=== PATIENT | female | born 1970 | race Caucasian/White ===

== ENCOUNTER → 2019-01-22 10:39 | Outpatient (CLI) | payer MEDICARE, SELFPAY ==
[2016-12-27 17:18] VITALS: BMI 28.2
[2019-01-22 12:43] LABS: Urine Sodium 46 mmol/L (Not Establ.)
[2019-01-22 12:57] LABS: ALB/GLOB Ratio 0.9 RATIO (0.9-2.4); AST(SGOT) 21 U/L (15-37); Alanine Aminotransfer ALT/SGPT 42 U/L (13-56); Albumin, Serum 3.8 g/dL (3.2-5.0); Alkaline Phosphatase 74 U/L (45-117); Anion Gap 9 (5-15); BUN 16 mg/dL (7-18); BUN/Creat Ratio 18.7 RATIO (10-20); Calcium,Total 9.1 mg/dL (8.5-10.1); Chloride 103 mmol/L (98-107); Cholesterol 243 mg/dL (200); Creatinine, Serum 0.86 mg/dL (0.55-1.02); EST Glomerular Filtration Rate 75 mL/min (>60); Est Glom Filt Rate - Afr Amer 91 mL/min (>60); Globulin 4.3 g/dL (2.2-4.2); Glucose 74 mg/dL (74-106); High Density Lipoprotein 75 mg/dL; Potassium 3.3 mmol/L (3.5-5.1); Protein, Total 8.1 g/dL (6.4-8.2); Sodium Level 139 mmol/L (136-145); Triglycerides 75 mg/dL; Very Low Density Lipoprotein 15 mg/dL (5-40)
[2019-01-23 09:57] LABS: LDL, Direct 120295 170 mg/dL (0-99)
== END ==
DX: E87.1 Hypo-osmolality and hyponatremia (principal); E87.6 Hypokalemia; E78.00 Pure hypercholesterolemia, unspecified
CPT/HCPCS: 36415; 80053; 80061; 83721; 84300

== ENCOUNTER → 2019-03-13 09:08 | Outpatient (CLI) | payer MEDICARE, SELFPAY ==
[2016-12-27 17:18] VITALS: BMI 28.2
[2019-03-13 10:37] LABS: ALB/GLOB Ratio 0.9 RATIO (0.9-2.4); AST(SGOT) 13 U/L (15-37); Alanine Aminotransfer ALT/SGPT 29 U/L (13-56); Albumin, Serum 3.6 g/dL (3.2-5.0); Alkaline Phosphatase 69 U/L (45-117); Anion Gap 12 (5-15); BUN 19 mg/dL (7-18); BUN/Creat Ratio 20.9 RATIO (10-20); Calcium,Total 8.8 mg/dL (8.5-10.1); Chloride 108 mmol/L (98-107); Creatinine, Serum 0.91 mg/dL (0.55-1.02); EST Glomerular Filtration Rate 70 mL/min (>60); Est Glom Filt Rate - Afr Amer 85 mL/min (>60); Globulin 3.9 g/dL (2.2-4.2); Glucose 97 mg/dL (74-106); Potassium 3.8 mmol/L (3.5-5.1); Protein, Total 7.5 g/dL (6.4-8.2); Sodium Level 141 mmol/L (136-145)
== END ==
DX: E87.1 Hypo-osmolality and hyponatremia (principal); E87.6 Hypokalemia
CPT/HCPCS: 36415; 80053

== ENCOUNTER → 2019-04-28 07:11 | Outpatient (CLI) | payer MEDICARE, SELFPAY ==
[2019-04-28 10:08] LABS: Absolute Lymphocyte Count 2.02 X10^3/uL (0.83-4.51); Absolute Neutrophil Count 6.7 X10^3/uL (2.0-7.7); Basophil# 0.08 X10^3/uL; Basophil% 0.8 % (0-1); Hematocrit 47.8 % (37-47); Lymphocyte # 2.02 X10^3/ul (4.0); Lymphocyte % 20.5 % (19-41); Mean Corp Hgb Conc 33.5 g/dL (32-36); Mean Corpuscular Hgb 32.7 pg (27.0-32.0); Mean Corpuscular Volume 97.8 fL (81-99); Mean Platelet Vol. 9.7 fl (6.2-12.0); Monocyte# 0.77 X10^3/uL; Monocyte% 7.8 % (0-10); NRBC Flagged by Analyzer 0 % (0-5); Neutrophil # 6.67 X10^3/uL (2.7-7.7); Platelet Count 263 K/mm3 (150-450); RBC Distribution Width CV 14.1 % (11.6-14.6); RBC Distribution Width SD 51.1 fl (35.1-43.9); Red Blood Count 4.89 M/mm3 (4.2-5.4); White Blood Count 9.8 K/mm3 (4.4-11.0)
[2019-04-28 10:35] LABS: ALB/GLOB Ratio 0.9 RATIO (0.9-2.4); AST(SGOT) 21 U/L (15-37); Alanine Aminotransfer ALT/SGPT 53 U/L (13-56); Albumin, Serum 3.7 g/dL (3.2-5.0); Alkaline Phosphatase 75 U/L (45-117); Anion Gap 8 (5-15); BUN 16 mg/dL (7-18); BUN/Creat Ratio 19.7 RATIO (10-20); Calcium,Total 8.6 mg/dL (8.5-10.1); Chloride 107 mmol/L (98-107); Cholesterol 254 mg/dL (200); Creatinine, Serum 0.81 mg/dL (0.55-1.02); EST Glomerular Filtration Rate 80 mL/min (>60); Est Glom Filt Rate - Afr Amer 96 mL/min (>60); Globulin 4.1 g/dL (2.2-4.2); Glucose 111 mg/dL (74-106); High Density Lipoprotein 91 mg/dL; Magnesium 2.5 mg/dL (1.6-2.6); Potassium 3.7 mmol/L (3.5-5.1); Protein, Total 7.8 g/dL (6.4-8.2); Sodium Level 141 mmol/L (136-145); T4 Free Direct 0.97 ng/dL (0.76-1.46); Thyroid Stim Hormone (TSH) 3.62 uIU/mL (0.358-3.74); Triglycerides 92 mg/dL; Very Low Density Lipoprotein 18 mg/dL (5-40)
[2019-04-28 13:40] LABS: Hemoglobin A1c 5.7 % (4.2-6.3)
== END ==
DX: E78.00 Pure hypercholesterolemia, unspecified (principal); R73.01 Impaired fasting glucose; E87.1 Hypo-osmolality and hyponatremia; E87.6 Hypokalemia; E03.9 Hypothyroidism, unspecified
CPT/HCPCS: 36415; 80053; 80061; 83036; 83735; 84439; 84443; 85025

== ENCOUNTER → 2020-01-07 08:41 | Outpatient (CLI) | payer MEDICARE, SELFPAY ==
[2020-01-07 10:05] LABS: Hematocrit 45.1 % (37-47); Hemoglobin 15.1 g/dL (12.0-15.0); Mean Corp Hgb Conc 33.5 g/dL (32-36); Mean Corpuscular Hgb 32.5 pg (27.0-32.0); Mean Corpuscular Volume 97.2 fL (81-99); Mean Platelet Vol. 10.1 fl (6.2-12.0); Platelet Count 293 K/mm3 (150-450); RBC Distribution Width SD 49.9 fl (35.1-43.9); Red Blood Count 4.64 M/mm3 (4.2-5.4); White Blood Count 15.3 K/mm3 (4.4-11.0)
[2020-01-07 10:39] LABS: Glucose 91 mg/dL (74-106); Potassium 3.5 mmol/L (3.5-5.1)
[2020-01-07 10:40] LABS: Insulin 11.3 mU/L (2.6-37.6)
== END ==
DX: D72.829 Elevated white blood cell count, unspecified (principal); E87.6 Hypokalemia; E16.1 Other hypoglycemia
CPT/HCPCS: 36415; 82533; 82947; 83525; 84132; 85027

== ENCOUNTER → 2020-01-09 10:59 | Outpatient (CLI) | payer MEDICARE, MEDICAID, SELFPAY ==
[2020-01-16 13:11] LABS: Aldosterone, 24Ur 73.19 ug/24 hr (0.00-19.00)
== END ==
DX: D72.829 Elevated white blood cell count, unspecified (principal); E87.6 Hypokalemia; E16.1 Other hypoglycemia
CPT/HCPCS: 81050; 82088

== ENCOUNTER → 2020-02-16 11:57 | Outpatient (CLI) | payer MEDICARE, SELFPAY ==
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
== END ==
PROVIDERS: Referring Provider Anesthesiology Pain Medicine; Visit Provider Anesthesiology Pain Medicine
DX: M54.2 Cervicalgia (principal); M54.9 Dorsalgia, unspecified
CPT/HCPCS: 72040; 72100

== ENCOUNTER 2020-03-27 14:45 | Emergency (ER) | payer MEDICARE, MEDICAID, SELFPAY ==
[2020-03-27 14:46] VITALS: BP 135/86; PULSE 90; RESP 18; TEMP 36.8; O2SAT 96; BMI 33.3
--- NOTE | 2020-03-27 15:22 | ED.VIS.GEN ---
History of Present Illness Chief Complaint: Lower Extremity Injury Informant: Patient Onset: Today - JPTA Context: Sudden Onset - while pushing vaccuum back and forth at home Timing: Continuous Quality: sharp pain Location: lateral left hip/buttock, into left thigh Current Severity: Moderate Maximum Severity: Severe Worsened by: movement, bearing weight Relieved by: remaining still lying down Associated Symptoms: tingling down LLE Narrative: Patient has been able to bear weight but it is painful. She has no groin pain. She also has a history of spinal stenosis with lumbosacral degenerative disc disease, she gets regular injections with her pain management doctor, Dr. Jin. She had this acute onset pain, she has had sciatica down her left lower extremity before, but she states this is much worse than what she has had in the past. She denies any direct trauma. No fall. No bowel or bladder incontinence or dysfunction. She denies any saddle anesthesias. The leg does not necessarily seem weak, but she is very limited by pain. No symptoms on the right side this time. - Past Medical History (1) Spinal stenosis Status: Chronic (2) DDD (degenerative disc disease), lumbosacral Status: Chronic (3) M?ni?re's disease Status: Chronic Past Medical History - Allergies and Home Meds Allergies/Adverse Reactions: Allergies duloxetine [From Cymbalta] Allergy (Verified 03/27/20 14:49) Other Penicillins Allergy (Verified 03/27/20 14:49) Hives Primary Care Physician: LOGAN TODD [Other] Lives: Spouse/ Significant Other Smoking Status: Current every day smoker Review of Systems General: Denies: Chills, Fever, Sweats Eyes: Denies: Visual changes - bilaterally, Diplopia ENT: Denies: Rhinorrhea, Sore throat Cardiovascular: Denies: Chest pain, Palpitations Respiratory: Denies: Dyspnea, Cough, Dyspnea on exertion Gastrointestinal: Denies: Abdominal pain, Nausea, Vomiting, Diarrhea, Melena, Hematochezia Genitourinary: Denies: Dysuria, Hematuria, Frequency Musculoskeletal: Reports: Back pain - Chronic, worse today, Extremity Pain. Denies: Myalgias, Neck pain, Swelling Skin: Denies: Rash, Wounds Neurological: Reports: Parasthesia. Denies: Headache, Weakness Physical Exam Vital Signs/Narrative: Vital Signs Temp Pulse Resp BP Pulse Ox 03/27/20 14:46 98.3 F 90 18 135/86 H 96 Inital Vital Signs reviewed: Yes General: Well nourished, Well developed, No Acute Distress Head: Normocephalic, Atraumatic ENT: Moist mucous membranes, No rhinorrhea Neck: Supple, Nontender Respiratory: No distress Abdomen: Soft, Nontender, Nondistended, Normal bowel sounds Back: Normal Inspection, Spinal tenderness - Mild, upper lumbar, this reproduces patient's chronic pain, this is not where she is having acute pain. No other spinal tenderness., - - Tender throughout left buttock, including ischial tuberosity, sciatic notch, greater trochanter of the femur, ASIS, and pelvic brim.. Negative for: CVA tenderness Extremities: Nontender, No edema, - - Negative straight leg raise bilaterally while sitting, the increased back pain only and do not worsen or reproduce radicular symptoms. Painless internal/external rotation at the left hip joint. No shortening of the left lower extremity. Full range of motion throughout all joints of the lower extremities without difficulty. Skin: Normal color, No rash, No Trauma Neurological: Alert, Oriented x3, Cranial nerves II-XII grossly intact, Normal Strength, Normal Sensation, Normal DTR, - - Antalgic gait. No clonus. Downgoing toes bilaterally. Psychological: Normal affect, Normal Mood Diagnostic/Tx/Re-eval - Medical Decision Making Patient was reassured about her hip joint, I do not think this is a hip joint issue. I think it is more related to her chronic back issues, and this is probably sciatica, at least related to her symptoms, although she is not examining objectively like radiculopathy. At this time I think the treatment is pain control. We discussed that, but she does not want any narcotics because it makes her M?ni?re's disease worse. She takes Celebrex daily and she took it this morning. In the end we decided to treat her with tramadol and Norflex here, and she will follow-up with her doctor after the weekend and rest. ED Disposition - Plan for ED Patient: Disposition: Home or Assisted Living Diagnosis: Acute low back pain with left-sided sciatica, Spinal stenosis Instructions: ED Back Pain Acute or Chronic Referrals: LOGAN TODD [Other] - 3-5 Days if not improving
[2020-03-27] MEDS: traMADol 50 MG Tablet 100 MG PO (15:43)
[2020-03-27] MEDS: Orphenadrine 60 MG/2 ML Ampul IM (15:43)
== END 2020-03-27 16:15 | disposition home or self-care (01) ==
PROVIDERS: Emergency Provider Emergency Medicine
DX: M54.42 Lumbago with sciatica, left side (principal); M48.07 Spinal stenosis, lumbosacral region; M51.37 Other intervertebral disc degeneration, lumbosacral region; F17.200 Nicotine dependence, unspecified, uncomplicated; Z79.899 Other long term (current) drug therapy
CPT/HCPCS: 96372; 99283

== ENCOUNTER → 2020-04-05 09:31 | Outpatient (CLI) | payer MEDICARE, MEDICAID, SELFPAY ==
[2020-03-27 14:46] VITALS: BMI 33.3
[2020-04-05 12:18] LABS: Hematocrit 44.5 % (37-47); Hemoglobin 14.8 g/dL (12.0-15.0); Mean Corp Hgb Conc 33.3 g/dL (32-36); Mean Corpuscular Hgb 33.3 pg (27.0-32.0); Mean Platelet Vol. 10.2 fl (6.2-12.0); Platelet Count 294 K/mm3 (150-450); RBC Distribution Width CV 13.8 % (11.6-14.6); RBC Distribution Width SD 50.6 fl (35.1-43.9); Red Blood Count 4.45 M/mm3 (4.2-5.4); White Blood Count 12.1 K/mm3 (4.4-11.0)
[2020-04-05 12:35] LABS: Hemoglobin A1c 5.6 % (3.8-5.6)
[2020-04-05 12:38] LABS: ALB/GLOB Ratio 0.8 RATIO (0.9-2.4); AST(SGOT) 17 U/L (15-37); Alanine Aminotransfer ALT/SGPT 42 U/L (13-56); Albumin, Serum 3.8 g/dL (3.2-5.0); Alkaline Phosphatase 86 U/L (45-117); Anion Gap 7 (5-15); BUN 26 mg/dL (7-18); BUN/Creat Ratio 27.3 RATIO (10-20); Calcium,Total 8.8 mg/dL (8.5-10.1); Chloride 105 mmol/L (98-107); Cholesterol 229 mg/dL (200); Creatinine, Serum 0.95 mg/dL (0.55-1.02); EST Glomerular Filtration Rate 66 mL/min (>60); Est Glom Filt Rate - Afr Amer 80 mL/min (>60); Globulin 4.5 g/dL (2.2-4.2); Glucose 98 mg/dL (74-106); High Density Lipoprotein 83 mg/dL; Magnesium 2.5 mg/dL (1.6-2.6); Potassium 3.8 mmol/L (3.5-5.1); Protein, Total 8.3 g/dL (6.4-8.2); Sodium Level 137 mmol/L (136-145); Thyroid Stim Hormone (TSH) 1.78 uIU/mL (0.358-3.74); Triglycerides 55 mg/dL; Very Low Density Lipoprotein 11 mg/dL (5-40)
== END ==
DX: E87.6 Hypokalemia (principal); E78.00 Pure hypercholesterolemia, unspecified; E03.9 Hypothyroidism, unspecified; D72.829 Elevated white blood cell count, unspecified; R73.01 Impaired fasting glucose; E83.42 Hypomagnesemia; E87.1 Hypo-osmolality and hyponatremia
CPT/HCPCS: 36415; 80053; 80061; 82533; 83036; 83735; 84443; 85027

== ENCOUNTER → 2020-04-08 | Outpatient (CLI) | payer MEDICARE, MEDICAID, SELFPAY ==
[2020-03-27 14:46] VITALS: BMI 33.3
[2020-04-15 20:00] LABS: Aldosterone, 24Ur 186.62 ug/24 hr (0.00-19.00); Aldosterone, Ur 62.73 ug/L (Not Estab.)
== END | disposition home or self-care (01) ==
LOC: LABSPEC 08:57
DX: E87.6 Hypokalemia (principal); E78.00 Pure hypercholesterolemia, unspecified; E03.9 Hypothyroidism, unspecified; D72.829 Elevated white blood cell count, unspecified; R73.01 Impaired fasting glucose; E83.42 Hypomagnesemia; E87.1 Hypo-osmolality and hyponatremia
CPT/HCPCS: 81050; 82088

== ENCOUNTER → 2020-04-10 08:04 | Outpatient (CLI) | payer MEDICARE, MEDICAID, SELFPAY ==
[2020-03-27 14:46] VITALS: BMI 33.3
--- NOTE | 2020-04-10 08:30 | MRI_ITS ---
STUDY: MRI LUMBAR SPINE WITHOUT CONTRAST REASON FOR EXAM: Female, 49 years old. Intervertebral disc degeneration, stenosis, increased LBP, left hip and bilat leg pain TECHNIQUE: Standardized fat and water weighted pulse sequences were obtained in the sagittal and axial planes. COMPARISON: None FINDINGS: T9-T10: (Sagittal only). Normal endplates. Minimal disc space height narrowing. No ventral extradural defect. Normal central canal and the visualized portions of the bilateral intervertebral neural foramina. T10-T11: (Sagittal only). Normal endplates. Minimal disc space height narrowing. No ventral extradural defect. Normal central canal and bilateral intervertebral neural foramina. T11-T12: (Sagittal only). Schmorl''s nodes in the central aspect of the adjacent vertebral endplates. Normal disc height, hydration and morphology. Normal central canal and bilateral intervertebral neural foramina. T12-L1: (Sagittal only). Normal endplates. Normal disc height, hydration and morphology. Normal central canal and bilateral intervertebral neural foramina. Normal lumbar lordosis. There is no substantial scoliosis. Normal conus medullaris that terminates at the lower L1 vertebral body level. L1-2: Schmorl''s nodes in the central aspect of the adjacent vertebral endplates. Mild disc space height narrowing with mild loss of disc hydration. Small left posterior paramedian disc protrusion causing mild stenosis of the left lateral recesses. Normal central canal and right lateral recess. Mild right degenerative facet arthropathy. Normal left facet joint. Normal bilateral intervertebral neural foramina. L2-3: MODIC type II degenerative vertebral marrow fatty changes underneath vertebral endplates. Pronounced disc space height narrowing. Mild degenerative retrolisthesis of L2 on L3. Normal central canal and mild stenosis of the right lateral recess. Normal left lateral recess. Mild degenerative facet arthropathy. Normal bilateral intervertebral neural foramina. L3-4: MODIC type II degenerative vertebral marrow fatty changes underneath the vertebral endplates. Pronounced disc space height narrowing. Minimal degenerative retrolisthesis of L3 on L4. Normal central canal and bilateral lateral recesses. Mild degenerative facet arthropathy. Normal bilateral intervertebral neural foramina. L4-5: Normal endplates. Mild disc space height narrowing. Small posterior annular bulging disc. Normal central canal and bilateral lateral recesses. Mild bilateral degenerative facet arthropathy. Normal bilateral intervertebral neural foramina. L5-S1: Normal endplates. Normal disc height and morphology. Normal central canal and bilateral lateral recesses. Moderately pronounced bilateral degenerative facet arthropathy. Normal bilateral intervertebral neural foramina. Normal visualized sacral ala. Normal visualized paraspinous soft tissue structures. MRI/Spine Lumbar (Routine) IMPRESSION: 1. Moderately pronounced bilateral L5-S1 degenerative facet arthropathy. 2. Small L4-L5 posterior annular bulging disc and mild bilateral degenerative facet arthropathy. 3. Minimal degenerative retrolisthesis of L3 on L4 with pronounced disc space height narrowing and MODIC type II degenerative vertebral marrow fatty changes underneath the vertebral endplates. 4. Mild degenerative retrolisthesis of L2 on L3 with pronounced disc space height narrowing and MODIC type II degenerative vertebral marrow fatty changes underneath the vertebral endplates. 5. Small left L1-L2 posterior paramedian disc protrusion causing mild stenosis of the left lateral recess. 6. No MRI evidence of lumbar extruded disc fragment. Electronically Signed: Calvin Arita MD at 9:11 EDT , Service support ,
== END ==
DX: M51.36 Other intervertebral disc degeneration, lumbar region (principal)
CPT/HCPCS: 72148

== ENCOUNTER → 2020-09-28 11:22 | Outpatient (CLI) | payer MEDICARE, MEDICAID, SELFPAY ==
[2020-09-28 15:19] LABS: Absolute Lymphocyte Count 2.34 X10^3/uL (0.83-4.51); Absolute Neutrophil Count 8.4 X10^3/uL (2.0-7.7); Basophil# 0.08 X10^3/uL; Basophil% 0.7 % (0-1); Eosinophil# 0.16 X10^3/uL; Eosinophils% 1.4 % (0-5); Hematocrit 43.3 % (37-47); Hemoglobin 13.7 g/dL (12.0-15.0); Lymphocyte # 2.34 X10^3/ul (4.0); Lymphocyte % 19.9 % (19-41); Mean Corp Hgb Conc 31.6 g/dL (32-36); Mean Corpuscular Hgb 30.9 pg (27.0-32.0); Mean Corpuscular Volume 97.5 fL (81-99); Mean Platelet Vol. 10.5 fl (6.2-12.0); NRBC Flagged by Analyzer 0 % (0-5); Neutrophil # 8.41 X10^3/uL (2.7-7.7); Neutrophil % 71.5 % (47-70); Platelet Count 295 K/mm3 (150-450); Red Blood Count 4.44 M/mm3 (4.2-5.4); White Blood Count 11.8 K/mm3 (4.4-11.0)
[2020-09-28 15:34] LABS: Vitamin B12 523 pg/mL (211-911); Vitamin D,25 Hydroxy 24.6 ng/mL
[2020-09-28 15:48] LABS: Hemoglobin A1c 5.6 % (3.8-5.6)
[2020-09-28 15:51] LABS: ALB/GLOB Ratio 1.1 RATIO (0.9-2.4); AST(SGOT) 24 U/L (15-37); Alanine Aminotransfer ALT/SGPT 43 U/L (13-56); Alkaline Phosphatase 72 U/L (45-117); Anion Gap 7 (5-15); BUN 15 mg/dL (7-18); BUN/Creat Ratio 15.4 RATIO (10-20); Calcium,Total 9.1 mg/dL (8.5-10.1); Chloride 104 mmol/L (98-107); Cholesterol 253 mg/dL (200); Creatinine, Serum 0.97 mg/dL (0.55-1.02); EST Glomerular Filtration Rate 64 mL/min (>60); Est Glom Filt Rate - Afr Amer 78 mL/min (>60); Globulin 3.8 g/dL (2.2-4.2); Glucose 76 mg/dL (74-106); High Density Lipoprotein 71 mg/dL; Potassium 3.2 mmol/L (3.5-5.1); Protein, Total 7.8 g/dL (6.4-8.2); Sodium Level 135 mmol/L (136-145); T4 Free Direct 1.06 ng/dL (0.76-1.46); Thyroid Stim Hormone (TSH) 2.05 uIU/mL (0.358-3.74); Triglycerides 99 mg/dL; Very Low Density Lipoprotein 20 mg/dL (5-40)
== END ==
LOC: LAB 11:24 → MTLAB 11:25
DX: E03.9 Hypothyroidism, unspecified (principal); R73.01 Impaired fasting glucose; E55.9 Vitamin D deficiency, unspecified; D72.829 Elevated white blood cell count, unspecified; E78.00 Pure hypercholesterolemia, unspecified; R71.8 Other abnormality of red blood cells; E87.6 Hypokalemia
CPT/HCPCS: 36415; 80053; 80061; 82306; 82607; 82746; 83036; 84439; 84443; 85025

== ENCOUNTER → 2020-09-30 10:36 | Outpatient (CLI) | payer MEDICARE, MEDICAID, SELFPAY ==
[2020-10-09 20:07] LABS: Cortisol, Urinary Free 5 ug/L (Undefined)
[2020-10-10 07:57] LABS: Aldosterone, 24Ur 88.11 ug/24 hr (0.00-19.00); Aldosterone, Ur 33.89 ug/L (Not Estab.); Cortisol, Free 24Ur 13 ug/24 hr (6-42)
== END ==
DX: D72.829 Elevated white blood cell count, unspecified (principal); E03.9 Hypothyroidism, unspecified; E78.00 Pure hypercholesterolemia, unspecified; R73.01 Impaired fasting glucose; R71.8 Other abnormality of red blood cells; E87.6 Hypokalemia; E55.9 Vitamin D deficiency, unspecified
CPT/HCPCS: 82088; 82530

== ENCOUNTER → 2021-01-14 10:16 | Outpatient (CLI) | payer MEDICARE, MEDICAID, SELFPAY ==
[2021-01-14 12:40] LABS: Vitamin D,25 Hydroxy 24.4 ng/mL
[2021-01-14 12:50] LABS: ALB/GLOB Ratio 0.9 RATIO (0.9-2.4); AST(SGOT) 17 U/L (15-37); Alanine Aminotransfer ALT/SGPT 39 U/L (13-56); Albumin, Serum 3.5 g/dL (3.2-5.0); Alkaline Phosphatase 87 U/L (45-117); Anion Gap 8 (5-15); BUN 23 mg/dL (7-18); BUN/Creat Ratio 25.7 RATIO (10-20); Calcium,Total 8.7 mg/dL (8.5-10.1); Chloride 110 mmol/L (98-107); EST Glomerular Filtration Rate 71 mL/min (>60); Est Glom Filt Rate - Afr Amer 86 mL/min (>60); Globulin 4.1 g/dL (2.2-4.2); Glucose 98 mg/dL (74-106); Potassium 3.7 mmol/L (3.5-5.1); Protein, Total 7.6 g/dL (6.4-8.2); Sodium Level 139 mmol/L (136-145)
== END ==
PROVIDERS: Referring Provider Podiatrist Foot & Ankle Surgery; Visit Provider Podiatrist Foot & Ankle Surgery
DX: M84.374A Stress fracture, right foot, initial encounter for fracture (principal); X58.XXXA Exposure to other specified factors, initial encounter; Y93.9 Activity, unspecified; Y92.9 Unspecified place or not applicable; Y99.9 Unspecified external cause status; M79.671 Pain in right foot
CPT/HCPCS: 36415; 80053; 82306

== ENCOUNTER → 2021-04-25 11:30 | Outpatient (CLI) | payer MEDICARE, MEDICAID, SELFPAY ==
[2021-04-25 15:03] LABS: Absolute Lymphocyte Count 1.92 X10^3/uL (0.83-4.51); Absolute Neutrophil Count 8.5 X10^3/uL (2.0-7.7); Basophil# 0.09 X10^3/uL; Basophil% 0.8 % (0-1); Eosinophil# 0.26 X10^3/uL; Eosinophils% 2.2 % (0-5); Hematocrit 44.2 % (37-47); Hemoglobin 14.4 g/dL (12.0-15.0); Lymphocyte # 1.92 X10^3/ul (0.83-4.51); Lymphocyte % 16.5 % (19-41); Mean Corp Hgb Conc 32.6 g/dL (32-36); Mean Corpuscular Hgb 31.9 pg (27.0-32.0); Mean Corpuscular Volume 97.8 fL (81-99); Mean Platelet Vol. 10.2 fl (6.2-12.0); Monocyte# 0.74 X10^3/uL; Monocyte% 6.4 % (0-10); NRBC Flagged by Analyzer 0 % (0-5); Neutrophil # 8.46 X10^3/uL (2.7-7.7); Neutrophil % 72.9 % (47-70); Platelet Count 307 K/mm3 (150-450); RBC Distribution Width CV 14.1 % (11.6-14.6); RBC Distribution Width SD 51.2 fl (35.1-43.9); Red Blood Count 4.52 M/mm3 (4.2-5.4); White Blood Count 11.6 K/mm3 (4.4-11.0)
[2021-04-25 15:32] LABS: ALB/GLOB Ratio 0.9 RATIO (0.9-2.4); AST(SGOT) 21 U/L (15-37); Alanine Aminotransfer ALT/SGPT 42 U/L (13-56); Albumin, Serum 3.6 g/dL (3.2-5.0); Alkaline Phosphatase 80 U/L (45-117); Anion Gap 8 (5-15); BUN 18 mg/dL (7-18); BUN/Creat Ratio 18.9 RATIO (10-20); CRP, High Sensitivity Cardiac 3.99 mg/L; Chloride 103 mmol/L (98-107); Cholesterol 270 mg/dL (200); Creatinine, Serum 0.95 mg/dL (0.55-1.02); EST Glomerular Filtration Rate 66 mL/min (>60); Est Glom Filt Rate - Afr Amer 80 mL/min (>60); Globulin 4.1 g/dL (2.2-4.2); Glucose 80 mg/dL (74-106); High Density Lipoprotein 75 mg/dL; Magnesium 2.2 mg/dL (1.6-2.6); Potassium 3.2 mmol/L (3.5-5.1); Protein, Total 7.7 g/dL (6.4-8.2); Sodium Level 136 mmol/L (136-145); T4 Free Direct 1.06 ng/dL (0.76-1.46); Thyroid Stim Hormone (TSH) 2.32 uIU/mL (0.358-3.74); Triglycerides 116 mg/dL; Very Low Density Lipoprotein 23 mg/dL (5-40)
[2021-04-27 14:44] LABS: Adrenocorticotropic Hormone 3.8 pg/mL (7.2-63.3)
== END ==
DX: E03.9 Hypothyroidism, unspecified (principal); E78.00 Pure hypercholesterolemia, unspecified; E87.6 Hypokalemia; E87.1 Hypo-osmolality and hyponatremia; R71.8 Other abnormality of red blood cells
CPT/HCPCS: 36415; 80053; 80061; 82024; 83735; 84439; 84443; 85025; 86141

== ENCOUNTER 2021-08-30 11:22 | Emergency (ER) | payer MEDICARE, MEDICAID, SELFPAY ==
[2021-08-30 11:23] VITALS: BP 141/97; PULSE 80; RESP 14; TEMP 36.8; O2SAT 96; BMI 37.5
[2021-08-30 11:26] VITALS: BP 141/97; PULSE 80; RESP 14; TEMP 36.8; O2SAT 95; O2SAT 96
--- NOTE | 2021-08-30 13:05 | EDS_ITS ---
HPI History of Present Illness Chief Complaint: Shortness of Breath Informant: patient Onset/Context/Timing Onset: Days (5 days) Context: Gradual Onset Current Severity: Mild Maximum Severity: Moderate Narrative Narrative: Patient presents secondary to shortness of breath and cough. She has had body aches and chills. She had a virtual visit with her doctor yesterday who told her she has COVID but no test was performed. She has a home pulse ox meter that reportedly was reading in the 70s this morning. [facility] Medical History Arthritis Back problem Bone fracture Frequent headaches Gastrointestinal problem H/O emotional problems Hearing problem Hives IBS (irritable bowel syndrome) Neuropathy Osteoarthritis Seasonal allergies Thyroid disease Ulcer Vision problem Vitamin deficiency Home Medications Omeprazole [Prilosec] 40 mg PO DAILY 12/27/16 [History Last Taken Unknown] bupropion HCl 300 mg PO DAILY 12/27/16 [History Last Taken Unknown] celecoxib 200 mg PO DAILY 12/27/16 [History Last Taken Unknown] cetirizine-pseudoephedrine 1 ea PO DAILY 12/27/16 [History Last Taken Unknown] dexamethasone sodium phosphate 1 drp OP Q2H 12/27/16 [History Last Taken Unknown] dicyclomine 10 mg PO TIDAC 12/27/16 [History Last Taken Unknown] fluticasone propionate 2 spray NASAL DAILY 12/27/16 [History Last Taken Unknown] gabapentin [Neurontin] 600 mg PO BID 12/27/16 [History Last Taken Unknown] levothyroxine 75 mcg PO DAILY 12/27/16 [History Last Taken Unknown] meclizine 12.5 mg PO DAILY PRN PRN 12/27/16 [History Last Taken Unknown] norethindrone (contraceptive) [Franny] 0.35 mg PO DAILY 12/27/16 [History Last Taken Unknown] topiramate 100 mg PO BID 12/27/16 [History Last Taken Unknown] triamterene-hydrochlorothiazid 1 cap PO DAILY 12/27/16 [History Last Taken Unknown] trimethobenzamide 300 mg PO DAILY 12/27/16 [History Last Taken Unknown] Klor-Con M20 2 tab PO DAILY 03/27/20 [History Last Taken Unknown] amiloride 1 tab PO DAILY 03/27/20 [History Last Taken Unknown] venlafaxine 37.5 mg PO BID 03/27/20 [History Last Taken Unknown] gabapentin 600 mg tablet 600 mg PO BID tab 08/17/21 [History Last Taken Unknown] melatonin 10 mg tablet 10 mg PO HS PRN 08/17/21 [History Last Taken Unknown] omeprazole 40 mg capsule,delayed release mg PO 08/17/21 [History Last Taken Unknown] ondansetron HCl 4 mg tablet 4 mg PO Q8H 08/17/21 [History Last Taken Unknown] topiramate 100 mg tablet 100 mg PO tab 08/17/21 [History Last Taken Unknown] levofloxacin 750 mg PO DAILY #4 tab 08/30/21 [Rx Last Taken Unknown] Allergy/AdvReac Type Severity Reaction Status Date / Time shellfish derived Allergy Severe vomitting Verified 08/17/21 10:38 duloxetine [From Cymbalta] Allergy Other Verified 03/27/20 14:49 Penicillins Allergy Hives Verified 03/27/20 14:49 gluten AdvReac Intermediate stomach Verified 08/17/21 10:38 discomfort Family History Other Alcohol abuse Anxiety Arthritis Autoimmune disease Bowel disease Colon cancer Depression Diabetes Heart disease High cholesterol Hypertension Mental disorder Psychiatric care Severe allergic reaction Thyroid disorder Surgical History H/O total hip arthroplasty Social History Smoking Status: Former smoker alcohol intake: current alcohol intake frequency: 0-2 drinks per day substance use type: does not use frequency: daily ROS ROS ED Constitutional Constitutional ED: Reports chills; Denies fever(s) Eyes Eyes: Denies change in vision ENT ENT ED: Denies sore throat Cardiovascular Cardiovascular: Reports chest pain Respiratory/Chest Respiratory/Chest: Reports cough and dyspnea Gastrointestinal Gastrointestinal: Denies abdominal pain, diarrhea, nausea or vomiting Genitourinary Genitourinary ED: Denies dysuria Musculoskeletal Musculoskeletal: Reports myalgias; Denies back pain Integumentary Denies rash Neurologic Neurologic: Denies headache(s) or weakness Allergic/Immunologic Allergic/Immunologic ED: Denies urticaria EXAM Physical Exam Const Vital Signs: 08/30/21 11:23 08/30/21 11:26 08/30/21 13:06 Temperature 98.2 F 98.2 F 98.2 F Temperature Source Oral Oral Oral Pulse Rate 80 80 80 Respiratory Rate 14 14 14 Respiratory Effort Short of Breath Respiratory Depth Shallow Respiratory Pattern Tachypnea Blood Pressure 141/97 H 141/97 H 141/97 H Blood Pressure Mean 111 111 111 Pulse Ox 96 96 96 Oxygen Delivery Method Room Air Room Air Room Air 08/30/21 13:26 08/30/21 14:06 Temperature 98.2 F Temperature Source Temporal Pulse Rate 72 71 Respiratory Rate 17 16 Respiratory Effort Respiratory Depth Respiratory Pattern Blood Pressure 126/94 H 122/82 H Blood Pressure Mean 104 95 Pulse Ox 97 97 Oxygen Delivery Method Room Air Room Air Positive well nourished and well developed General Appearance ED: well developed HEENT Reports moist mucous membranes Eyes PERRL and EOMs intact bilaterally Neck supple Chest Wall inspection of chest normal and palpation of chest normal Resp normal respiratory effort and clear to auscultation bilaterally Cardio regular rate and regular rhythm GI non-tender Palpation: soft Extremity normal to inspection Neuro oriented x3 Sensorium / Orientation: alert Psych mental status grossly normal Skin no rashes or lesions noted MDM MDM MDM Narrative Medical decision making narrative: Lab work, EKG, chest x-ray obtained. Lab Data Attestation: I reviewed the patient's lab results. Labs: Laboratory Results - last 24 hr 08/30/21 08/30/21 08/30/21 13:19 13:19 13:19 WBC 10.7 RBC 4.28 Hgb 13.8 Hct 41.6 MCV 97.2 MCH 32.2 H MCHC 33.2 RDW Std Deviation 54.3 H RDW Coeff of Zoey 15.1 H Plt Count 292 MPV 9.4 Immature Gran % (Auto) 1.000 H Neut % (Auto) 66.8 Lymph % (Auto) 21.5 [place] % (Auto) 6.9 Eos % (Auto) 3.0 Baso % (Auto) 0.8 Absolute Neuts (auto) 7.1 Absolute Lymphs (auto) 2.29 Nucleated RBC % 0 D-Dimer Quant (PE/DVT) 0.38 Sodium 143 Potassium 3.8 Chloride 112 H Carbon Dioxide 24.0 Anion Gap 7 BUN 20 H Creatinine 0.97 Estim Creat Clear Calc 64.95 Est GFR (MDRD) Af Amer 78 Est GFR (MDRD) Non-Af 64 BUN/Creatinine Ratio 20.5 H Glucose 89 Lactic Acid Calcium 8.7 08/30/21 13:19 WBC RBC Hgb Hct MCV MCH MCHC RDW Std Deviation RDW Coeff of Zoey Plt Count MPV Immature Gran % (Auto) Neut % (Auto) Lymph % (Auto) [place] % (Auto) Eos % (Auto) Baso % (Auto) Absolute Neuts (auto) Absolute Lymphs (auto) Nucleated RBC % D-Dimer Quant (PE/DVT) Sodium Potassium Chloride Carbon Dioxide Anion Gap BUN Creatinine Estim Creat Clear Calc Est GFR (MDRD) Af Amer Est GFR (MDRD) Non-Af BUN/Creatinine Ratio Glucose Lactic Acid 0.9 Calcium Radiography Chest X-Ray - ED: 1 View, Read by ED Physician and Chronic Changes Diagnostic Testing: Clinical Impression(s) from Imaging Studies Chest X-Ray 08/30/21 13:30 IMPRESSION: Findings suggestive of early right lower lobe infiltrate. Electronically Signed: Epi Villalta MD at 13:48 EST , Service support , EKG Initial EKG: Comments: Sinus at 72 with no acute ischemia. Treatment and Re-Evaluation Comments:: Repeat evaluation patient resting comfortably. O2 sats of been in the high 90s throughout her ED stay. Lab work reveals normal white count. Normal D-dimer. Chest x-ray per radiology interpretation reveals an early right lower lobe infiltrate. Patient's COVID test is negative. Test results all discussed with the patient. She will be treated with a course of Levaquin. Return instructions provided. Discharge Plan Triage Chief Complaint: Shortness of Breath ED Provider: Eunice Espinosa Dx/Rx/DC Orders Clinical Impression: Pneumonia Instructions: ED Pneumonia (Adult) Prescriptions: New levofloxacin 750 mg tablet 750 mg PO DAILY Qty: 4 RF: 0 No Action topiramate 100 mg tablet 100 mg PO RF: 0 gabapentin 600 mg tablet 600 mg PO BID RF: 0 omeprazole 40 mg capsule,delayed release(DR/EC) PO RF: 0 ondansetron HCl 4 mg tablet 4 mg PO Q8H RF: 0 melatonin 10 mg tablet 10 mg PO HS PRNRF: 0 cetirizine-pseudoephedrine 1 EACH tablet extended release 12 hr 1 ea PO DAILY RF: 0 celecoxib 200 MG capsule 200 mg PO DAILY RF: 0 meclizine 12.5 MG tablet 12.5 mg PO DAILY PRN PRN (Reason: Dizziness) RF: 0 triamterene-hydrochlorothiazid 1 CAP capsule 1 cap PO DAILY RF: 0 dexamethasone sodium phosphate 5 ML drops 1 drp OP Q2H RF: 0 levothyroxine 75 MCG tablet 75 mcg PO DAILY RF: 0 gabapentin [Neurontin] 300 MG capsule 600 mg PO BID RF: 0 norethindrone (contraceptive) [Franny] 0.35 MG tablet 0.35 mg PO DAILY RF: 0 fluticasone propionate 1 SPRAY spray,suspension 2 spray NASAL DAILY RF: 0 dicyclomine 10 MG capsule 10 mg PO TIDAC RF: 0 trimethobenzamide 300 MG capsule 300 mg PO DAILY RF: 0 bupropion HCl 300 MG tablet extended release 24 hr 300 mg PO DAILY RF: 0 topiramate 100 MG capsule,sprinkle,ER 24hr 100 mg PO BID RF: 0 Omeprazole [Prilosec] 40 MG capsule 40 mg PO DAILY RF: 0 venlafaxine 37.5 MG capsule,extended release 24hr 37.5 mg PO BID RF: 0 amiloride 5 mg tablet 1 tab PO DAILY RF: 0 Klor-Con M20 20 MEQ 2 tab PO DAILY RF: 0 Referrals: HADLEY TODD [Other] - 1-2 Weeks Disposition Disposition: Home, Self Care
[2021-08-30 13:06] VITALS: BP 141/97; PULSE 80; RESP 14; TEMP 36.8; O2SAT 96
[2021-08-30 13:26] VITALS: BP 126/94; PULSE 72; RESP 17; O2SAT 97
[2021-08-30 13:27] LABS: Absolute Lymphocyte Count 2.29 X10^3/uL (0.83-4.51); Absolute Neutrophil Count 7.1 X10^3/uL (2.0-7.7); Basophil# 0.08 X10^3/uL; Basophil% 0.8 % (0-1); Eosinophil# 0.32 X10^3/uL; Hematocrit 41.6 % (37-47); Hemoglobin 13.8 g/dL (12.0-15.0); Lymphocyte # 2.29 X10^3/ul (0.83-4.51); Lymphocyte % 21.5 % (19-41); Mean Corp Hgb Conc 33.2 g/dL (32-36); Mean Corpuscular Hgb 32.2 pg (27.0-32.0); Mean Corpuscular Volume 97.2 fL (81-99); Mean Platelet Vol. 9.4 fl (6.2-12.0); Monocyte# 0.73 X10^3/uL; Monocyte% 6.9 % (0-10); NRBC Flagged by Analyzer 0 % (0-5); Neutrophil # 7.12 X10^3/uL (2.7-7.7); Neutrophil % 66.8 % (47-70); Platelet Count 292 K/mm3 (150-450); RBC Distribution Width CV 15.1 % (11.6-14.6); RBC Distribution Width SD 54.3 fl (35.1-43.9); Red Blood Count 4.28 M/mm3 (4.2-5.4); White Blood Count 10.7 K/mm3 (4.4-11.0)
--- NOTE | 2021-08-30 13:30 | RAD_ITS ---
STUDY: X-RAY CHEST REASON FOR EXAM: Female, 50 years old. Sob TECHNIQUE: Single AP portable view of the chest. COMPARISON: Comparison is made with prior study dated 12/08/2012. FINDINGS: EKG electrodes are seen. Findings suggest lobar early right lower lobe infiltrate. There is no demonstrated pleural abnormality. Normal size heart. Normal mediastinum and darleen. Normal visualized pulmonary arteries. There is atherosclerotic tortuosity of the aortic arch and descending thoracic aorta. Normal visualized thoracic spine. Normal visualized ribs, clavicles, and shoulders. There is no demonstrated abnormality of the visualized soft tissue structures of the upper abdomen. RAD/Chest 1 View (Portable) IMPRESSION: Findings suggestive of early right lower lobe infiltrate. Electronically Signed: Epi Villalta MD at 13:48 EST , Service support ,
[2021-08-30 13:40] LABS: Anion Gap 7 (5-15); BUN 20 mg/dL (7-18); BUN/Creat Ratio 20.5 RATIO (10-20); Calcium,Total 8.7 mg/dL (8.5-10.1); Chloride 112 mmol/L (98-107); Creatinine, Serum 0.97 mg/dL (0.55-1.02); EST Glomerular Filtration Rate 64 mL/min (>60); Est Glom Filt Rate - Afr Amer 78 mL/min (>60); Estimated Creatinine Clearance 64.95 ml/min; Glucose 89 mg/dL (74-106); Potassium 3.8 mmol/L (3.5-5.1); Sodium Level 143 mmol/L (136-145)
[2021-08-30 13:41] LABS: D-Dimer Quantitative (DVT/PE) 0.38 FEU/ug/m (0.27-0.49)
[2021-08-30 13:56] LABS: Lactic Acid 0.9 mmol/L (0.4-1.9)
[2021-08-30 14:06] VITALS: BP 122/82; PULSE 71; RESP 16; TEMP 36.8; O2SAT 97
--- NOTE | 2021-08-30 14:07 | EKG12_ITS ---
Test Reason : SOB Blood Pressure : / mmHG Vent. Rate : 072 BPM Atrial Rate : 072 BPM P-R Int : 146 ms QRS Dur : 084 ms QT Int : 416 ms P-R-T Axes : 053 -44 043 degrees QTc Int : 455 ms Normal sinus rhythm Left axis deviation Low voltage QRS Abnormal ECG Confirmed by AILIN BOCANEGRA, ARABELLA ([id number]), marketing editor JASON RODRIGUEZ ([id number]) on 08/31/2021 10:08:50 AM Referred By: JOSE R Confirmed By:ARABELLA PARISI MD
[2021-08-30] MEDS: levoFLOXacin 750 MG Tablet PO (14:47)
[2021-08-30 14:51] VITALS: BP 128/72; PULSE 81; RESP 18; O2SAT 98
== END 2021-08-30 14:51 | disposition home or self-care (01) ==
PROVIDERS: Emergency Provider Emergency Medicine; Visit Provider Emergency Medicine
DX: J18.9 Pneumonia, unspecified organism (principal); Z87.891 Personal history of nicotine dependence
CPT/HCPCS: 71045; 80048; 83605; 85025; 85379; 87040; 87426; 93005; 99285

== ENCOUNTER 2021-09-04 09:18 | Emergency (ER) | payer MEDICARE, MEDICAID, SELFPAY ==
[2021-09-04 09:19] VITALS: BP 156/105; PULSE 86; RESP 16; TEMP 36.7; O2SAT 97; BMI 36.6
--- NOTE | 2021-09-04 09:38 | VDLE_ITS ---
Reason For Study: swelling RIGHT LEFT GSV is normal. GSV is normal. CFV is compressible, spontaneous, phasic, CFV is compressible, spontaneous, phasic, competent and demonstrates normal competent, and demonstrates normal augmentation. augmentation. FV is compressible, spontaneous, phasic, FV is compressible, spontaneous, phasic, competent and demonstrates normal competent and demonstrates normal augmentation. augmentation. POP V is compressible, spontaneous, phasic, POP V is compressible, spontaneous, phasic, competent and demonstrates normal competent and demonstrates normal augmentation. augmentation. T/P Trunk is compressible. T/P Trunk is compressible. PTV is compressible. PTV is compressible. RT PerV is compressible. LT PerV is compressible. Procedure This is a venous duplex using B-mode, color flow and spectral Doppler. Exam performed portable in ED. The exam was diagnostic. A preliminary report was called and/or faxed to Dr. Ortega. VL/Venous Duplex US - Tenzin Extrem Interpretation Summary No evidence for acute deep venous thrombosis bilateral lower extremities with p atent and compressible bilateral great saphenous veins. Right popliteal space 1.68 x 3.38 cm nonvascular cystic structure suspicious for Curtis's cyst. Clinical correlation would be maria fernanda ropriate. Ordering Physician: Nathalia Ortega Performed By: Avery Dwyer RVT
--- NOTE | 2021-09-04 09:38 | RAD_ITS ---
INDICATION: cough EXAMINATION/TECHNIQUE: X-RAY - XR Chest 1 View COMPARISON: Radiographs of the chest dated 08/30/2021 FINDINGS: LINES/DEVICES: None. LUNGS: Redemonstrated at the right lung base streaky opacity do not appear improved in the interval. There is also streaky opacities along the periphery of the left lung. No additional airspace consolidation is seen. No large pneumothorax or pleural effusion is seen MEDIASTINUM AND CARDIOVASCULAR STRUCTURES: Cardiac silhouette not enlarged. Central airways and mediastinal contour are unremarkable. BONES AND SOFT TISSUES: No acute osseous abnormality is seen. RAD/Chest 1 View (Portable) IMPRESSION: Redemonstration of right basilar streaky airspace opacities as well as streaky opacities at the periphery of the left lung. These findings have not improved in the interval. Given the patient''s history this could represent infectious process. Other considerations include atelectasis and scarring. Clinical correlation is advised. Electronically Signed: Chris Kidd MD at 10:16 EST Tel , Service support ,
--- NOTE | 2021-09-04 09:39 | EKG12_ITS ---
Test Reason : CP Blood Pressure : / mmHG Vent. Rate : 075 BPM Atrial Rate : 075 BPM P-R Int : 168 ms QRS Dur : 088 ms QT Int : 400 ms P-R-T Axes : 057 -36 038 degrees QTc Int : 446 ms Normal sinus rhythm Left axis deviation Abnormal ECG Confirmed by AILIN BOCANEGRA, ARABELLA ([id number]), supervising editor trailer JASON RODRIGUEZ ([id number]) on 09/06/2021 9:44:58 AM Referred By: CHINO Confirmed By:ARABELLA PARISI MD
--- NOTE | 2021-09-04 09:40 | EX.ED.DYSGE1 ---
HPI History of Present Illness Chief Complaint: Lower Extremity Injury Detail of Chief Complaint: Bilateral leg swelling Informant: patient Narrative Narrative: Patient presents with bilateral leg swelling that started initially about 5 days ago. Patient was seen in the emergency department 5 days ago because she thought she might have COVID because she lost her sense of taste and she had been coughing. She had a negative rapid test and PCR test from what she tells me. Patient was diagnosed with pneumonia and started on Levaquin. Patient noticed increased continued swelling to both lower extremities. She continues to cough and recently started having some blood-tinged sputum. Patient still coughing up brown phlegm. She has intermittent sharp stabbing chest pains. Prior similar symptoms: No PFSH PFSH Medical History Arthritis Back problem Bone fracture Frequent headaches Gastrointestinal problem H/O emotional problems Hearing problem Hives IBS (irritable bowel syndrome) Neuropathy Osteoarthritis Seasonal allergies Thyroid disease Ulcer Vision problem Vitamin deficiency Home Medications Omeprazole [Prilosec] 40 mg PO DAILY 12/27/16 [History Last Taken Unknown] bupropion HCl 300 mg PO DAILY 12/27/16 [History Last Taken Unknown] celecoxib 200 mg PO DAILY 12/27/16 [History Last Taken Unknown] cetirizine-pseudoephedrine 1 ea PO DAILY 12/27/16 [History Last Taken Unknown] dexamethasone sodium phosphate 1 drp OP Q2H 12/27/16 [History Last Taken Unknown] dicyclomine 10 mg PO TIDAC 12/27/16 [History Last Taken Unknown] fluticasone propionate 2 spray NASAL DAILY 12/27/16 [History Last Taken Unknown] gabapentin [Neurontin] 600 mg PO BID 12/27/16 [History Last Taken Unknown] levothyroxine 75 mcg PO DAILY 12/27/16 [History Last Taken Unknown] meclizine 12.5 mg PO DAILY PRN PRN 12/27/16 [History Last Taken Unknown] norethindrone (contraceptive) [Franny] 0.35 mg PO DAILY 12/27/16 [History Last Taken Unknown] topiramate 100 mg PO BID 12/27/16 [History Last Taken Unknown] triamterene-hydrochlorothiazid 1 cap PO DAILY 12/27/16 [History Last Taken Unknown] trimethobenzamide 300 mg PO DAILY 12/27/16 [History Last Taken Unknown] Klor-Con M20 2 tab PO DAILY 03/27/20 [History Last Taken Unknown] amiloride 1 tab PO DAILY 03/27/20 [History Last Taken Unknown] venlafaxine 37.5 mg PO BID 03/27/20 [History Last Taken Unknown] gabapentin 600 mg tablet 600 mg PO BID tab 08/17/21 [History Last Taken Unknown] melatonin 10 mg tablet 10 mg PO HS PRN 08/17/21 [History Last Taken Unknown] omeprazole 40 mg capsule,delayed release mg PO 08/17/21 [History Last Taken Unknown] ondansetron HCl 4 mg tablet 4 mg PO Q8H 08/17/21 [History Last Taken Unknown] topiramate 100 mg tablet 100 mg PO tab 08/17/21 [History Last Taken Unknown] levofloxacin 750 mg PO DAILY #4 tab 08/30/21 [Rx Last Taken Unknown] furosemide [Lasix] 40 mg PO DAILY #3 tab 09/04/21 [Rx Last Taken Unknown] Allergy/AdvReac Type Severity Reaction Status Date / Time shellfish derived Allergy Severe vomitting Verified 09/04/21 09:21 duloxetine [From Cymbalta] Allergy Other Verified 09/04/21 09:21 Penicillins Allergy Hives Verified 09/04/21 09:21 gluten AdvReac Intermediate stomach Verified 09/04/21 09:21 discomfort Family History Other Alcohol abuse Anxiety Arthritis Autoimmune disease Bowel disease Colon cancer Depression Diabetes Heart disease High cholesterol Hypertension Mental disorder Psychiatric care Severe allergic reaction Thyroid disorder Surgical History H/O total hip arthroplasty Social History Smoking Status: Former smoker alcohol intake: current alcohol intake frequency: 0-2 drinks per day substance use type: does not use frequency: daily ROS ROS ED Constitutional Constitutional ED: Reports systems reviewed and no addt'l complaints, except as documented; Denies body ache(s), change in weight or chills Eyes Eyes: Denies acute decrease in peripheral vision, change in vision, double vision or loss of vision ENT ENT ED: Reports none; Denies ear pain, lip swelling, loss taste/smell, neck pain, otalgia or sore throat Cardiovascular Cardiovascular: Reports none and chest pain; Denies abdominal pain, chest pain with activity, leg edema, lightheadedness, palpitations, rapid heart rate or syncope Respiratory/Chest Respiratory/Chest: Reports none and cough; Denies change in mental status, dry cough, dyspnea, hemoptysis, shortness of breath at rest or shortness of breath with exertion Gastrointestinal Gastrointestinal: Reports none; Denies abdominal pain, change in stool character, diarrhea, hematemesis, hematochezia, melena, rectal bleeding or vomiting Genitourinary Genitourinary ED: Reports none; Denies abdominal discomfort, anuria, dysuria, genital pain or polyuria Musculoskeletal Musculoskeletal: Reports none and other Details: Bilateral leg swelling ; Denies arthralgias, back pain, difficulty walking, extremity pain, muscle weakness or myalgias Integumentary Reports none; Denies abscess or rash Neurologic Neurologic: Reports none and other; Denies abnormal gait, confusion, focal weakness, frequent falls, headache(s), loss of vision, numbness, paresthesias, radicular pain, vertigo or weakness Psychiatric Psychiatric: Reports systems reviewed and no addt'l complaints, except as documented and none; Denies behavioral changes, confusion, difficulty concentrating, hallucinations, suicidal ideation, tactile hallucinations or visual hallucinations Endocrine Endocrinology: Denies none, cold intolerance, excessive sweating, fatigue or heat intolerance Hematologic/Lymphatic Hematologic/Lymphatic: Reports none; Denies anemia, easy bleeding or easy bruising Allergic/Immunologic Allergic/Immunologic ED: Denies as per HPI, none, lip swelling, mouth swelling, throat swelling, tongue swelling or hives EXAM Physical Exam Const Vital Signs: 09/04/21 09:19 09/04/21 09:33 09/04/21 12:06 Temperature 98.1 F Temperature Source Temporal Pulse Rate 86 78 Respiratory Rate 16 16 Respiratory Effort Normal Non-Labored Blood Pressure 156/105 H 142/78 H Blood Pressure Mean 122 99 Pulse Ox 97 98 Oxygen Delivery Method Room Air Room Air Positive well nourished and well developed General Appearance ED: well developed and NAD HEENT Reports TM's clear and moist mucous membranes normocephalic and atraumatic; Negative for trauma or tenderness Tympanic Membrane ED: Yes TM's clear Eyes PERRL and EOMs intact bilaterally General Eye ED: Negative for pale conjunctiva or scleral icterus Neck no lymphadenopathy, supple and no JVD General: Negative for tenderness Chest Wall inspection of chest normal and palpation of chest normal Chest: Negative for tenderness Resp normal respiratory effort and clear to auscultation bilaterally Effort and Inspection: Negative for respiratory distress or pain with movement Auscultation: Negative for rhonchi, wheezes or diminished lung sounds Cardio regular rate, regular rhythm, S1 normal heart sound, S2 normal heart sound and no murmurs Peripheral Pulses: pulses 2+ throughout GI normal to inspection, nondistended, normoactive bowel sounds, soft to palpation, non-tender, non-distended and no masses Back/Spine no CVA tenderness and no thoracic nor lumbar tenderness Extremity normal to inspection Extremity Narrative: Patient was +2 edema from the knees down to the feet bilaterally. No erythema noted. No ropes or cords palpated. General Extremety ED: Yes edema General Extremity: edema Neuro oriented x3, CN's II-XII intact bilaterally, no sensory deficits noted and gait normal Sensorium / Orientation: awake, alert, oriented to person, oriented to place and oriented to time Motor Exam: strength 5/5 throughout and strength abnormal Psych mental status grossly normal Skin no rashes or lesions noted and no wounds MDM MDM MDM Narrative Medical decision making narrative: IV line established on arrival. Patient had venous Dopplers obtained of both lower extremities that were negative for DVT. Patient's BNP was normal. I did order a PCR test for COVID. Changes on chest x-ray would be consistent with a COVID infection. Patient will be given a prescription for Lasix for 3 days. She is advised to follow-up with her primary care physician in 3 to 5 days. I do not think she needs any further antibiotics. She will receive a text regarding her PCR test results. Lab Data Attestation: I reviewed the patient's lab results. Labs: Laboratory Results - last 24 hr 09/04/21 09/04/21 09/04/21 09:50 09:50 09:50 WBC 8.1 RBC 4.13 L Hgb 13.3 Hct 39.9 MCV 96.6 MCH 32.2 H MCHC 33.3 RDW Std Deviation 53.6 H RDW Coeff of Zoey 15.0 H Plt Count 238 MPV 9.9 Immature Gran % (Auto) 0.600 Neut % (Auto) 62.1 Lymph % (Auto) 24.3 [place] % (Auto) 9.0 Eos % (Auto) 3.0 Baso % (Auto) 1.0 Absolute Neuts (auto) 5.1 Absolute Lymphs (auto) 1.97 Nucleated RBC % 0 D-Dimer Quant (PE/DVT) Cancelled Sodium 138 Potassium 4.2 Chloride 108 H Carbon Dioxide 23.0 Anion Gap 7 BUN 16 Creatinine 0.98 Estim Creat Clear Calc 61.80 Est GFR (MDRD) Af Amer 77 Est GFR (MDRD) Non-Af 64 BUN/Creatinine Ratio 16.3 Glucose 90 Calcium 9.0 Troponin I High Sens 6 B-Natriuretic Peptide 09/04/21 09/04/21 09:50 10:28 WBC RBC Hgb Hct MCV MCH MCHC RDW Std Deviation RDW Coeff of Zoey Plt Count MPV Immature Gran % (Auto) Neut % (Auto) Lymph % (Auto) [place] % (Auto) Eos % (Auto) Baso % (Auto) Absolute Neuts (auto) Absolute Lymphs (auto) Nucleated RBC % D-Dimer Quant (PE/DVT) 0.42 Sodium Potassium Chloride Carbon Dioxide Anion Gap BUN Creatinine Estim Creat Clear Calc Est GFR (MDRD) Af Amer Est GFR (MDRD) Non-Af BUN/Creatinine Ratio Glucose Calcium Troponin I High Sens B-Natriuretic Peptide 14.3 Radiography Diagnostic Testing: Clinical Impression(s) from Imaging Studies Chest X-Ray 09/04/21 09:38 IMPRESSION: Redemonstration of right basilar streaky airspace opacities as well as streaky opacities at the periphery of the left lung. These findings have not improved in the interval. Given the patient''s history this could represent infectious process. Other considerations include atelectasis and scarring. Clinical correlation is advised. Electronically Signed: Chris Kidd MD at 10:16 EST Tel , Service support , 1 view chest x-ray obtained interpreted by myself as bilateral faint streaky infiltrates. Radiology in agreement. EKG Initial EKG: Attestation: I personally reviewed and interpreted this EKG as follows: Comments: Sinus rhythm with a rate of 75 bpm with no acute ST segment changes Discharge Plan Triage Chief Complaint: Lower Extremity Injury ED Provider: Nathalia Ortega Dx/Rx/DC Orders Clinical Impression: Leg edema Instructions: ED Peripheral Edema, Bilateral Prescriptions: New furosemide [Lasix] 40 mg tablet 40 mg PO DAILY Qty: 3 RF: 0 No Action topiramate 100 mg tablet 100 mg PO RF: 0 gabapentin 600 mg tablet 600 mg PO BID RF: 0 omeprazole 40 mg capsule,delayed release(DR/EC) PO RF: 0 ondansetron HCl 4 mg tablet 4 mg PO Q8H RF: 0 melatonin 10 mg tablet 10 mg PO HS PRNRF: 0 cetirizine-pseudoephedrine 1 EACH tablet extended release 12 hr 1 ea PO DAILY RF: 0 celecoxib 200 MG capsule 200 mg PO DAILY RF: 0 meclizine 12.5 MG tablet 12.5 mg PO DAILY PRN PRN (Reason: Dizziness) RF: 0 triamterene-hydrochlorothiazid 1 CAP capsule 1 cap PO DAILY RF: 0 dexamethasone sodium phosphate 5 ML drops 1 drp OP Q2H RF: 0 levothyroxine 75 MCG tablet 75 mcg PO DAILY RF: 0 gabapentin [Neurontin] 300 MG capsule 600 mg PO BID RF: 0 norethindrone (contraceptive) [Franny] 0.35 MG tablet 0.35 mg PO DAILY RF: 0 fluticasone propionate 1 SPRAY spray,suspension 2 spray NASAL DAILY RF: 0 dicyclomine 10 MG capsule 10 mg PO TIDAC RF: 0 trimethobenzamide 300 MG capsule 300 mg PO DAILY RF: 0 bupropion HCl 300 MG tablet extended release 24 hr 300 mg PO DAILY RF: 0 topiramate 100 MG capsule,sprinkle,ER 24hr 100 mg PO BID RF: 0 Omeprazole [Prilosec] 40 MG capsule 40 mg PO DAILY RF: 0 venlafaxine 37.5 MG capsule,extended release 24hr 37.5 mg PO BID RF: 0 amiloride 5 mg tablet 1 tab PO DAILY RF: 0 Klor-Con M20 20 MEQ 2 tab PO DAILY RF: 0 levofloxacin 750 mg tablet 750 mg PO DAILY Qty: 4 RF: 0 Referrals: HADLEY TODD [Other] Activity Restrictions/Additional Instructions: Follow-up with your primary care physician in 3 to 5 days Disposition Disposition: Home, Self Care
[2021-09-04 10:00] LABS: Absolute Lymphocyte Count 1.97 X10^3/uL (0.83-4.51); Absolute Neutrophil Count 5.1 X10^3/uL (2.0-7.7); Basophil# 0.08 X10^3/uL; Eosinophil# 0.24 X10^3/uL; Hematocrit 39.9 % (37-47); Hemoglobin 13.3 g/dL (12.0-15.0); Lymphocyte # 1.97 X10^3/ul (0.83-4.51); Lymphocyte % 24.3 % (19-41); Mean Corp Hgb Conc 33.3 g/dL (32-36); Mean Corpuscular Hgb 32.2 pg (27.0-32.0); Mean Corpuscular Volume 96.6 fL (81-99); Mean Platelet Vol. 9.9 fl (6.2-12.0); Monocyte# 0.73 X10^3/uL; NRBC Flagged by Analyzer 0 % (0-5); Neutrophil # 5.05 X10^3/uL (2.7-7.7); Neutrophil % 62.1 % (47-70); Platelet Count 238 K/mm3 (150-450); RBC Distribution Width SD 53.6 fl (35.1-43.9); Red Blood Count 4.13 M/mm3 (4.2-5.4); White Blood Count 8.1 K/mm3 (4.4-11.0)
[2021-09-04 10:21] LABS: Anion Gap 7 (5-15); BUN 16 mg/dL (7-18); BUN/Creat Ratio 16.3 RATIO (10-20); Chloride 108 mmol/L (98-107); Creatinine, Serum 0.98 mg/dL (0.55-1.02); EST Glomerular Filtration Rate 64 mL/min (>60); Est Glom Filt Rate - Afr Amer 77 mL/min (>60); Glucose 90 mg/dL (74-106); Potassium 4.2 mmol/L (3.5-5.1); Sodium Level 138 mmol/L (136-145); Troponin-I HS 6 pg/mL (3.0-54.0)
[2021-09-04 10:44] LABS: D-Dimer Quantitative (DVT/PE) 0.42 FEU/ug/m (0.27-0.49)
[2021-09-04 12:06] VITALS: BP 142/78; PULSE 78; RESP 16; O2SAT 98
[2021-09-04 12:41] LABS: BNP,B-Type NATRIURETIC PEPTIDE 14.3 pg/mL (0-100)
[2021-09-04 14:31] VITALS: BP 135/87; PULSE 78; RESP 14; TEMP 36.9; O2SAT 98
== END 2021-09-04 14:32 | disposition home or self-care (01) ==
PROVIDERS: Emergency Provider Emergency Medicine; Visit Provider Emergency Medicine
DX: R60.0 Localized edema (principal); Z87.891 Personal history of nicotine dependence
CPT/HCPCS: 71045; 80048; 83880; 84484; 85025; 85379; 87635; 93005; 93970; 99284; A4216; U0003; U0005

== ENCOUNTER 2021-09-26 11:10 | Outpatient (CLI) | payer MEDICARE, MEDICAID, SELFPAY ==
--- NOTE | 2021-09-26 11:30 | MRI_ITS ---
STUDY: MRI LUMBAR SPINE WITHOUT CONTRAST REASON FOR EXAM: Female, 50 years old. PAIN TECHNIQUE: Standardized fat and water weighted pulse sequences were obtained in the sagittal and axial planes. COMPARISON: 04/10/2020 FINDINGS: T12-L1: Normal endplates. Normal disc height, hydration and morphology. Normal bilateral facet joints. Normal central canal and bilateral lateral recesses. Normal bilateral intervertebral neural foramina. Normal lumbar lordosis. There is 16 degree levoscoliosis. Normal conus medullaris that terminates at the L1 level. L1-2: There is small left paracentral disc herniation. There is mild narrowing of the left neural foramina due to left foraminal disc bulge. L2-3: Endplate spondylosis. Decreased disc height . There is a moderate-sized right paracentral disc herniation impinging on the right L3 nerve root. There is 5 mm retrolisthesis. There is moderate narrowing of the right neural foramen and mild narrowing of the left neural foramen due to degenerative changes manifested joints. L3-4: Endplate spondylosis. Decreased disc height and small circumferential disc bulge. Degenerative changes of the bilateral facet joints. 3 mm retrolisthesis. Mild narrowing of the bilateral intervertebral neural foramina. L4-5: Endplate spondylosis. Decreased disc height and small circumferential disc bulge. Degenerative changes of the bilateral facet joints. Mild narrowing of the central canal and bilateral intervertebral neural foramina. L5-S1: Endplate spondylosis. Decreased disc height and small circumferential disc bulge and superimposed left paracentral/foraminal disc herniation. Degenerative changes of the bilateral facet joints. Mild narrowing of the central canal and bilateral intervertebral neural foramina. Normal visualized sacral ala. Normal visualized paraspinous soft tissue structures. MRI/Spine Lumbar (Routine) IMPRESSION: Multilevel degenerative changes, as described above. Electronically Signed: Ashu Valdez MD at 0:06 EST ,
== END 2021-09-26 23:59 | disposition home or self-care (01) ==
PROVIDERS: Visit Provider Anesthesiology Pain Medicine
DX: M51.26 Other intervertebral disc displacement, lumbar region (principal); M47.816 Spondylosis without myelopathy or radiculopathy, lumbar region
CPT/HCPCS: 72148

== ENCOUNTER → 2021-11-02 09:14 | Outpatient (CLI) | payer MEDICARE, MEDICAID, SELFPAY ==
[2021-11-02 10:24] LABS: Absolute Lymphocyte Count 1.78 X10^3/uL (0.83-4.51); Absolute Neutrophil Count 8.4 X10^3/uL (2.0-7.7); Basophil# 0.09 X10^3/uL; Basophil% 0.8 % (0-1); Eosinophil# 0.16 X10^3/uL; Eosinophils% 1.4 % (0-5); Hematocrit 46.2 % (37-47); Hemoglobin 15.5 g/dL (12.0-15.0); Lymphocyte # 1.78 X10^3/ul (0.83-4.51); Mean Corp Hgb Conc 33.5 g/dL (32-36); Mean Corpuscular Hgb 32.4 pg (27.0-32.0); Mean Corpuscular Volume 96.7 fL (81-99); Mean Platelet Vol. 10.1 fl (6.2-12.0); Monocyte# 0.66 X10^3/uL; Monocyte% 5.9 % (0-10); NRBC Flagged by Analyzer 0 % (0-5); Neutrophil # 8.36 X10^3/uL (2.7-7.7); Neutrophil % 75.1 % (47-70); Platelet Count 282 K/mm3 (150-450); RBC Distribution Width CV 13.9 % (11.6-14.6); RBC Distribution Width SD 49.6 fl (35.1-43.9); Red Blood Count 4.78 M/mm3 (4.2-5.4); White Blood Count 11.1 K/mm3 (4.4-11.0)
[2021-11-02 11:31] LABS: ALB/GLOB Ratio 0.8 RATIO (0.9-2.4); AST(SGOT) 14 U/L (15-37); Alanine Aminotransfer ALT/SGPT 29 U/L (13-56); Albumin, Serum 3.5 g/dL (3.2-5.0); Alkaline Phosphatase 85 U/L (45-117); Anion Gap 8 (5-15); BUN 21 mg/dL (7-18); BUN/Creat Ratio 22.1 RATIO (10-20); Calcium,Total 9.5 mg/dL (8.5-10.1); Chloride 108 mmol/L (98-107); Cholesterol 263 mg/dL (200); Creatinine, Serum 0.95 mg/dL (0.55-1.02); EST Glomerular Filtration Rate 66 mL/min (>60); Est Glom Filt Rate - Afr Amer 80 mL/min (>60); Globulin 4.2 g/dL (2.2-4.2); Glucose 98 mg/dL (74-106); High Density Lipoprotein 68 mg/dL; Potassium 3.6 mmol/L (3.5-5.1); Protein, Total 7.7 g/dL (6.4-8.2); Sodium Level 138 mmol/L (136-145); Thyroid Stim Hormone (TSH) 0.46 uIU/mL (0.358-3.74); Triglycerides 135 mg/dL; Very Low Density Lipoprotein 27 mg/dL (5-40)
[2021-11-03 14:49] LABS: Adrenocorticotropic Hormone 11.3 pg/mL (7.2-63.3)
== END ==
DX: R78.1 Finding of opiate drug in blood (principal); E78.00 Pure hypercholesterolemia, unspecified; E87.6 Hypokalemia; E03.9 Hypothyroidism, unspecified; D72.828 Other elevated white blood cell count
CPT/HCPCS: 36415; 80053; 80061; 82024; 82533; 84443; 85025

== ENCOUNTER 2021-12-30 10:17 | Day surgery (SDC) | payer MEDICARE, MEDICAID, SELFPAY ==
[2021-12-30] VITALS (11 sets, daily range): BP systolic 111–140; BP diastolic 76–102; PULSE 80–97; RESP 16–18; TEMP 36.4–37; O2SAT 92–97; BMI 37.6
[2021-12-30 10:57] LABS: Internal QC Validated? YES +Cl - CLEAR BKGD; Pregnancy, Urine Negative Negative
[2021-12-30] MEDS: Vancomycin IV 1,000 MG/200 ML BAG 200 MG IV (11:07)
[2021-12-30] MEDS: Lactated Ringers 1,000 ML 30 ML IV (11:09)
--- NOTE | 2021-12-30 12:10 | RAD_ITS ---
PROCEDURE: INDICATION: SPINAL CORD STIMULATOR IMPLANT EXAMINATION/TECHNIQUE: 7 limited spot intraoperative films are presented for evaluation. Total Fluoroscopic Time: 8 and 50 seconds AND number of Fluoroscopic Images: 7 OR Radiation dosage index: COMPARISON: None. FINDINGS: Fluoroscopic images from intraoperative placement of spinal cord stimulator device were submitted. A 2-lead spinal cord stimulator device extends superiorly from the lumbar region. The lumbar portions of the stimulator cords are not included in the [id number]. The 2 cords appear to terminate at the level of the presumed T12 vertebral body. RAD/Thoracic Spine 3 Views IMPRESSION: Placement of spinal cord signal device as detailed above. Please see intraoperative report for additional findings. Electronically Signed: Kiran Carbajal, at 8:53 EDT ,
[2021-12-30] MEDS: Bupivacaine Mpf 0.5% 30 ML VIAL (12:44)
== END 2021-12-30 17:10 | disposition home or self-care (01) ==
LOC: SDC 10:19 → AC 10:21
PROVIDERS: Anesthesiology; Visit Provider Anesthesiology Pain Medicine
PROC: (CPT 63685; principal; 2021-12-30 11:25)
DX: G89.4 Chronic pain syndrome (principal); E11.9 Type 2 diabetes mellitus without complications; M51.16 Intervertebral disc disorders with radiculopathy, lumbar region; M51.17 Intervertebral disc disorders with radiculopathy, lumbosacral region; I10 Essential (primary) hypertension; E03.9 Hypothyroidism, unspecified; J45.909 Unspecified asthma, uncomplicated; K21.9 Gastro-esophageal reflux disease without esophagitis; F17.200 Nicotine dependence, unspecified, uncomplicated; Z79.890 Hormone replacement therapy; Z79.899 Other long term (current) drug therapy
CPT/HCPCS: 63685; 63650 ×2; 95972; 00300; 72072; 72100; 76000; 81025; C1778; J7120; J2405

== ENCOUNTER 2022-03-11 10:30 | Emergency (ER) | payer MEDICARE, MEDICAID, SELFPAY ==
[2022-03-11 10:31] VITALS: BP 136/106; PULSE 81; RESP 18; TEMP 36.6; O2SAT 96; BMI 38.2
--- NOTE | 2022-03-11 10:44 | EX.ED.VIS.UR ---
HPI HPI - URI History of Present Illness Chief Complaint: Cough Informant: patient Onset/Context/Timing Onset: Weeks Context: Gradual Onset Timing: Continuous Current Severity: Mild Maximum Severity: Mild Associated Symptoms Associated Symptoms: Positive for Nasal Congestion, Headache, Myalgias, Shortness of Breath and Productive Cough; Negative for Nausea, Vomiting, Diarrhea, Chest Pain, Nonproductive cough or Hemoptysis Narrative Narrative: 51-year-old female has a history of back problems and a spinal stimulator. States for the last 1 to 2 weeks she has had a cough productive of brown phlegm. She has had intermittent headaches. She had 2 negative rapid COVID test at home about a week ago. About 6 months ago she did have pneumonia. She denies nausea vomiting diarrhea. She denies subjective fever since she is taken her temperature multiple times its always been around normal. She denies any hemoptysis. She denies any chest pain. She is a smoker. Prior similar symptoms: Yes Recent Illness/Hospitalization: No ROS ROS ED ROS Narrative Cough. Body aches. Review of Systems ROS Unobtainable: Denies due to encephalopathy Constitutional Constitutional ED: Denies chills Eyes Eyes: Denies blurry vision ENT ENT ED: Denies ear pain Cardiovascular Cardiovascular: Denies chest pain Respiratory/Chest Respiratory/Chest: Reports cough Gastrointestinal Gastrointestinal: Denies abdominal pain Genitourinary Genitourinary ED: Denies dysuria Musculoskeletal Musculoskeletal: Denies arthralgias Integumentary Denies abscess Neurologic Neurologic: Denies headache(s) Psychiatric Psychiatric: Denies anxiety Endocrine Endocrinology: Denies cold intolerance Hematologic/Lymphatic Hematologic/Lymphatic: Denies easy bleeding Allergic/Immunologic Allergic/Immunologic ED: Denies mouth swelling [facility] Medical History (Updated 03/11/22 @ 11:[address] Erick Rice MD) Ambulates with cane Anemia Anxiety Arthritis Back problem Depression Dietary restriction Easy bruising Former smoker Gastric reflux Hearing problem History of edema History of pain when walking History of ulceration Hives Hypokalemia IBS (irritable bowel syndrome) Injury of head and neck Leg cramps Loss of hearing Menieres disease Migraine headache Neuropathy Osteoarthritis Pain Pneumonia Seasonal allergies Thyroid disease Ulcer Vision problem Vitamin deficiency Wears glasses Home Medications celecoxib 200 mg capsule 200 mg PO DAILY 12/27/16 [History Last Taken Unknown] cetirizine 5 mg-pseudoephedrine ER 120 mg tablet,extended release,12hr 1 ea PO DAILY 12/27/16 [History Last Taken Unknown] dexamethasone sodium phosphate 0.1 % eye drops 1 drp OP PRN PRN [facility] 12/27/16 [History Last Taken Unknown] levothyroxine 75 mcg tablet 75 mcg PO DAILY 12/27/16 [History Last Taken 12/30/21] meclizine 12.5 mg tablet 12.5 mg PO DAILY PRN PRN Dizziness 12/27/16 [History Last Taken Unknown] triamterene 37.5 mg-hydrochlorothiazide 25 mg capsule 1 cap PO DAILY [facility] 12/27/16 [History Last Taken Unknown] Klor-Con M20 1 tab PO TID 03/27/20 [History Last Taken Unknown] amiloride 5 mg tablet 1 tab PO DAILY [facility] 03/27/20 [History Last Taken Unknown] gabapentin 600 mg tablet 600 mg PO BID 08/17/21 [History Last Taken 12/30/21] melatonin 10 mg tablet 10 mg PO HS PRN Sleep 08/17/21 [History Last Taken Unknown] omeprazole 40 mg capsule,delayed release 40 mg PO DAILY 08/17/21 [History Last Taken 12/30/21] ondansetron HCl 4 mg tablet 4 mg PO Q8H PRN NAUSEA 08/17/21 [History Last Taken Unknown] topiramate 100 mg tablet 100 mg PO BID 08/17/21 [History Last Taken 12/30/21] fluticasone propionate 50 mcg/actuation nasal spray,suspension 2 spray PRN PRN ALLERGIES 10/21/21 [History Last Taken Unknown] venlafaxine 75 mg capsule,extended release 24 hr (Effexor XR) 75 mg PO DAILY 12/27/21 [History Last Taken Unknown] Allergy/AdvReac Type Severity Reaction Status Date / Time citric acid Allergy Severe wears dowm Verified 03/11/22 10:34 linning of mouth shellfish derived Allergy Severe vomitting Verified 03/11/22 10:34 duloxetine [From Cymbalta] Allergy Other Verified 03/11/22 10:34 Penicillins Allergy Hives Verified 03/11/22 10:34 gluten AdvReac Intermediate stomach Verified 03/11/22 10:34 discomfort Family History Other Alcohol abuse Anxiety Arthritis Autoimmune disease Bowel disease Colon cancer Depression Diabetes Heart disease High cholesterol Hypertension Mental disorder Psychiatric care Severe allergic reaction Thyroid disorder Surgical History (Updated 03/11/22 @ 10:56 by Lokesh Winston RN) H/O total hip arthroplasty S/P insertion of spinal cord stimulator Social History Smoking Status: Former smoker alcohol intake: current alcohol intake frequency: 0-2 drinks per day substance use type: does not use frequency: daily EXAM Physical Exam Narrative Exam Narrative: 31-year-old female no acute distress. Vital signs stable afebrile. Pulse ox 96% on room air no signs hypoxia. She does not look septic or toxic. H EENT exam unremarkable. Moist extremities. Neck nontender no lymphadenopathy. No JVD. Lungs coarse breath sounds bilaterally. No rales, rhonchi or wheezing. Equal symmetrical. Heart regular rate and rhythm no murmur rate about 80. Abdomen soft nontender. Moving all 4 extremities. Normal motor strength. Calves are nontender without edema. Neurologically she is awake and alert. Const Vital Signs: 03/11/22 10:31 03/11/22 10:53 03/11/22 10:53 Temperature 98 F 98 F Temperature Source Temporal Temporal Pulse Rate 81 81 Respiratory Rate 18 18 Respiratory Effort Normal Non-Labored Respiratory Depth Normal Respiratory Pattern Normal Blood Pressure 136/106 H 136/106 H Blood Pressure Mean 116 Pulse Ox 96 96 Oxygen Delivery Method Room Air Room Air Room Air 03/11/22 11:04 03/11/22 11:26 Temperature 98.9 F Temperature Source Pulse Rate 66 Respiratory Rate 14 Respiratory Effort Respiratory Depth Respiratory Pattern Blood Pressure 134/78 H Blood Pressure Mean Pulse Ox 96 99 Oxygen Delivery Method Room Air Positive well nourished, well developed and obese; Negative for cachectic or contractures General Appearance ED: well developed; Negative for cachectic, contractures or pallor Nutritional Appearance: obese; Negative for cachectic HEENT Reports moist mucous membranes normocephalic and atraumatic Teeth and Gingiva: Negative for caries Throat: Negative for posterior oropharynx normal Eyes PERRL and EOMs intact bilaterally General Eye ED: Negative for pale conjunctiva Neck no lymphadenopathy, supple, no meningeal signs and no JVD General: Negative for anterior neck swelling Resp normal respiratory effort and clear to auscultation bilaterally Effort and Inspection: Negative for retractions Auscultation: Negative for rales, rhonchi or wheezes Cardio S1 normal heart sound, S2 normal heart sound and no murmurs Rate: regular rate; Negative for bradycardia or tachycardic Rhythm: regular rhythm; Negative for abnormal rhythm GI non-tender, non-distended and no masses Inspection: Negative for abdominal distention Auscultation: normoactive bowel sounds Palpation: soft; Negative for tender Back/Spine no CVA tenderness and normal ROM General Back: Negative for CVA tenderness Cervical Spine: Negative for cervical spine tenderness Thoracic Spine / Upper Back: Negative for thoracic spinal tenderness Lumbar Spine / Lower Back: Negative for lumbar spinal tenderness Extremity normal to inspection and full ROM General Extremety ED: Negative for cyanosis or tenderness General Extremity: Negative for cyanosis Neuro oriented x3 and CN's II-XII intact bilaterally Sensorium / Orientation: alert, oriented to person, oriented to place and oriented to time; Negative for orientation impaired, lethargic or stuporous Motor Exam: strength 5/5 throughout Psych mental status grossly normal Appearance: Negative for other Attitude: No agitated Mood & Affect: Negative for depressed Skin General Skin Exam: Negative for jaundice or pallor Lesions: no lesions Rashes: no rashes Trauma: Negative for abrasion MDM MDM MDM Narrative Medical decision making narrative: 51-year-old with URI symptoms for 1 to 2 weeks. We will get a COVID PCR test because she has had 2 negative rapid's and she has been out ill for more than 7 to 10 days. Also chest x-ray to evaluate for possible pneumonia. She is currently not wheezing. Repeat exam at 1116 unchanged. Patient I discussed at length her stopping smoking and vaping. Her COVID PCR test should be back in the next 4 hours. She will be notified if that is positive. She will be treated as a viral URI. Follow-up with your doctor if not improving. She has been vaccinated and boosted against COVID. Lab Data Attestation: I reviewed the patient's lab results. Lab results narrative: COVID-19 not detected as a PCR. Labs: Laboratory Results - last 24 hr 03/11/22 10:54 COVID-19 ([facility]AC[facility]) Not Detected Radiography Diagnostic Testing: Clinical Impression(s) from Imaging Studies Chest X-Ray 03/11/22 10:55 IMPRESSION: Spinal stimulator leads now present from T5-T8. No acute cardiopulmonary disease. Electronically Signed: Servando Shaffer MD at 11:16 EDT , Chest x-ray, portable, single view ordered by myself and radiologist shows no acute abnormality. There are wires in place from a spinal cord stimulator. No pneumonia. No infiltrate. Discharge Plan Triage Chief Complaint: Cough ED Provider: Erick Rice Dx/Rx/DC Orders Clinical Impression: Acute viral bronchitis Instructions: Acute Bronchitis Prescriptions: No Action topiramate 100 mg tablet 100 mg PO BID Label Comments: TAKE 1 TABLET BY MOUTH TWICE A DAY gabapentin 600 mg tablet 600 mg PO BID omeprazole 40 mg capsule,delayed release(DR/EC) 40 mg PO DAILY ondansetron HCl 4 mg tablet 4 mg PO Q8H PRN (Reason: NAUSEA) melatonin 10 mg tablet 10 mg PO HS PRN (Reason: Sleep) cetirizine-pseudoephedrine 1 EACH tablet extended release 12 hr 1 ea PO DAILY celecoxib 200 MG capsule 200 mg PO DAILY meclizine 12.5 MG tablet 12.5 mg PO DAILY PRN PRN (Reason: Dizziness) triamterene-hydrochlorothiazid 1 CAP capsule 1 cap PO DAILY dexamethasone sodium phosphate 5 ML drops 1 drp OP PRN PRN (Reason: MENERIES) levothyroxine 75 MCG tablet 75 mcg PO DAILY fluticasone propionate 50 mcg/actuation spray,suspension 2 spray NASAL PRN PRN (Reason: ALLERGIES) amiloride 5 mg tablet 1 tab PO DAILY Label Comments: TAKE 1 TABLET BY MOUTH EVERY DAY Klor-Con M20 20 MEQ 1 tab PO TID venlafaxine [Effexor XR] 75 mg Capsule,Extended Release 24hr 75 mg PO DAILY Primary Care Provider: LOGAN TODD Referrals: LOGAN TODD [Other] Activity Restrictions/Additional Instructions: Chest x-ray is negative shows no signs of pneumonia. This appears to be a viral respiratory infection. COVID test should be back in the next 4 hours. If that is positive you like me to call you in a prescription for Paxlovid just call [facility] emergency department at [phone], asked for Dr. Rice and I will call into pharmacy for you. Plenty of fluids and rest. Follow-up with your doctor if not improving. Stop smoking and vaping altogether. Disposition Disposition: Home, Self Care Discharge Date/Time: 03/11/22 11:31
[2022-03-11 10:53] VITALS: BP 136/106; PULSE 81; RESP 18; TEMP 36.6; O2SAT 96
--- NOTE | 2022-03-11 10:55 | RAD_ITS ---
STUDY: X-RAY CHEST REASON FOR EXAM: Female, 51 years old. Cough TECHNIQUE: Single AP portable upright view of the chest. COMPARISON: Portable AP upright chest x-ray 09/04/2021 FINDINGS: The lungs are clear and expanded. There is no demonstrated pleural abnormality. Normal size heart. Stable minor fullness of the medial right cardiophrenic angle is likely an epicardial fat pad. Normal mediastinum and darleen. Normal visualized pulmonary arteries. Normal visualized aortic arch and descending thoracic aorta. 2 mm lesion now seen overlying the mid thoracic spine from T5-T8, extending towards the right at the T6 level and towards the left at T5. Normal visualized ribs, clavicles, and shoulders. There is no demonstrated abnormality of the visualized soft tissue structures of the upper abdomen. RAD/Chest 1 View (Portable) IMPRESSION: Spinal stimulator leads now present from T5-T8. No acute cardiopulmonary disease. Electronically Signed: Servando Shaffer MD at 11:16 EDT ,
[2022-03-11 11:04] VITALS: O2SAT 96
[2022-03-11 11:26] VITALS: BP 134/78; PULSE 66; RESP 14; TEMP 37.2; O2SAT 99
== END 2022-03-11 11:31 | disposition home or self-care (01) ==
LOC: ED 11:23
PROVIDERS: Emergency Provider Emergency Medicine; Visit Provider Emergency Medicine
DX: J20.8 Acute bronchitis due to other specified organisms (principal); Z20.822 Contact with and (suspected) exposure to COVID-19; M79.10 Myalgia, unspecified site; R51.9 Headache, unspecified; E07.9 Disorder of thyroid, unspecified; F32.A Depression, unspecified; F41.9 Anxiety disorder, unspecified; E66.9 Obesity, unspecified; Z79.890 Hormone replacement therapy; Z79.899 Other long term (current) drug therapy; Z87.891 Personal history of nicotine dependence
CPT/HCPCS: 71045; 87635; 99282; U0003; U0005

== ENCOUNTER → 2022-03-30 | Outpatient (CLI) | payer MEDICARE, MEDICAID, SELFPAY ==
--- NOTE | 2022-03-30 10:27 | RAD_ITS ---
STUDY: X-RAY - LEFT SHOULDER REASON FOR EXAM: Female, 51 years old. PAIN TECHNIQUE: view(s) of the shoulder. COMPARISON: None. FINDINGS: Normal glenohumeral articulation. Normal acromioclavicular joint. Normal acromion. Normal humeral head and visualized proximal humerus. The soft tissue structures are unremarkable. Normal visualized pulmonary apex. RAD/Shoulder min 2 Views IMPRESSION: Normal x-ray examination of the shoulder. Electronically Signed: Travis Zimmerman MD at 11:47 EDT ,
--- NOTE | 2022-03-30 10:31 | RAD_ITS ---
STUDY: X-RAY - RIGHT SHOULDER REASON FOR EXAM: Female, 51 years old. PAIN TECHNIQUE: view(s) of the shoulder. COMPARISON: None. FINDINGS: Normal glenohumeral articulation. Normal acromioclavicular joint. Normal acromion. Normal humeral head and visualized proximal humerus. The soft tissue structures are unremarkable. Normal visualized pulmonary apex. RAD/Shoulder min 2 Views IMPRESSION: Normal x-ray examination of the shoulder. Electronically Signed: Travis Zimmerman MD at 11:48 EDT ,
== END | disposition home or self-care (01) ==
LOC: RAD 10:25
PROVIDERS: Referring Provider Anesthesiology Pain Medicine; Visit Provider Anesthesiology Pain Medicine
DX: M19.019 Primary osteoarthritis, unspecified shoulder (principal)
CPT/HCPCS: 73030

== ENCOUNTER → 2022-05-08 | Outpatient (CLI) | payer MEDICARE, MEDICAID, SELFPAY ==
[2022-05-08 12:24] LABS: Absolute Lymphocyte Count 1.84 X10^3/uL (0.83-4.51); Absolute Neutrophil Count 5.2 X10^3/uL (2.0-7.7); Basophil# 0.06 X10^3/uL; Basophil% 0.8 % (0-1); Eosinophil# 0.21 X10^3/uL; Eosinophils% 2.6 % (0-5); Hematocrit 42.9 % (37-47); Hemoglobin 13.8 g/dL (12.0-15.0); Lymphocyte # 1.84 X10^3/ul (0.83-4.51); Lymphocyte % 23.1 % (19-41); Mean Corp Hgb Conc 32.2 g/dL (32-36); Mean Corpuscular Hgb 31.1 pg (27.0-32.0); Mean Corpuscular Volume 96.6 fL (81-99); Mean Platelet Vol. 10.1 fl (6.2-12.0); Monocyte# 0.59 X10^3/uL; Monocyte% 7.4 % (0-10); NRBC Flagged by Analyzer 0 % (0-5); Neutrophil # 5.18 X10^3/uL (2.7-7.7); Neutrophil % 65.1 % (47-70); Platelet Count 282 K/mm3 (150-450); RBC Distribution Width CV 14.7 % (11.6-14.6); RBC Distribution Width SD 52.6 fl (35.1-43.9); Red Blood Count 4.44 M/mm3 (4.2-5.4)
[2022-05-08 13:40] LABS: Vitamin B12 271 pg/mL (211-911); Vitamin D,25 Hydroxy 25.5 ng/mL
[2022-05-08 14:44] LABS: ALB/GLOB Ratio 0.8 RATIO (0.9-2.4); AST(SGOT) 18 U/L (15-37); Alanine Aminotransfer ALT/SGPT 30 U/L (13-56); Albumin, Serum 3.4 g/dL (3.2-5.0); Alkaline Phosphatase 91 U/L (45-117); Anion Gap 9 (5-15); BUN 22 mg/dL (7-18); BUN/Creat Ratio 23.5 RATIO (10-20); CRP, High Sensitivity Cardiac 4.45 mg/L; Calcium,Total 8.9 mg/dL (8.5-10.1); Chloride 109 mmol/L (98-107); Cholesterol 242 mg/dL (200); Creatinine, Serum 0.94 mg/dL (0.55-1.02); EST Glomerular Filtration Rate 67 mL/min (>60); Est Glom Filt Rate - Afr Amer 81 mL/min (>60); Globulin 4.2 g/dL (2.2-4.2); Glucose 91 mg/dL (74-106); High Density Lipoprotein 67 mg/dL; Potassium 3.8 mmol/L (3.5-5.1); Protein, Total 7.6 g/dL (6.4-8.2); Sodium Level 142 mmol/L (136-145); Thyroid Stim Hormone (TSH) 7.86 uIU/mL (0.358-3.74); Triglycerides 116 mg/dL; Very Low Density Lipoprotein 23 mg/dL (5-40)
== END | disposition home or self-care (01) ==
DX: I10 Essential (primary) hypertension (principal); E78.00 Pure hypercholesterolemia, unspecified; E03.9 Hypothyroidism, unspecified; D72.829 Elevated white blood cell count, unspecified; E87.6 Hypokalemia; E55.9 Vitamin D deficiency, unspecified; D51.9 Vitamin B12 deficiency anemia, unspecified
CPT/HCPCS: 36415; 80053; 80061; 82306; 82607; 82746; 84443; 85025; 86141

== ENCOUNTER → 2022-08-21 | Outpatient (CLI) | payer MEDICARE, MEDICAID, SELFPAY ==
[2022-08-21 11:23] LABS: Thyroid Stim Hormone (TSH) 6.46 uIU/mL (0.358-3.74)
== END | disposition home or self-care (01) ==
LOC: LAB 09:48
DX: E03.9 Hypothyroidism, unspecified (principal)
CPT/HCPCS: 36415; 84443

== ENCOUNTER 2022-08-24 09:30 | Outpatient (RCR) | payer MEDICARE, MEDICAID, SELFPAY ==
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
--- NOTE | 2022-12-19 10:12 | HP.PT.NRP ---
BRUNO PATTERSON was seen in my office for initial evaluation on 07/12/22. The following Plan of Care was established for this patient: Initial Frequency: 2x /Week Initial Duration: 4 Weeks Patient/Client Instruction: Educate patient on: Condition, Plan of Care For the Purpose of:: To decrease pain, To increase ROM, To improve muscle performance and motor function, To improve ability to perform ADL's, To increase tolerance to activity/condition/position, To improve ability of physical actions for home/community/work/leisure, To improve gait and locomotor functions, To improve health of tissue, To decrease soft tissue restriction, To increase flexibility/ROM, To prevent re-injury Therapeutic Exercise to Include: Strength training, Endurance training, Balance training, Body mechanics, Postural training, Flexibilty training, In an aquatic setting, Active ROM, Dynamic Lumbar Stabilization For the Purpose of:: To decrease pain, To increase ROM, To improve muscle performance and motor function, To improve ability to perform ADL's, To increase tolerance to activity/condition/position, To improve ability of physical actions for home/community/work/leisure, To improve health of tissue, To decrease soft tissue restriction, To increase flexibility/ROM, To prevent re-injury This patient was last seen in our office . Pertinent comments regarding their Physical therapy will appear below: Patient was seen for PT for back and neck pain focusing on Aquatic therapy At this point I will be discontinuing this patient from physical therapy. I would be happy to see this patient again in the future if found appropriate by the physician. Thank you! Kip Payne, PT, Cert MDT, OCS Balance/Gait/Functional tests - Balance/Special Test Scores Oswestry Low Back Score: 9
== END 2022-08-24 19:00 | disposition home or self-care (01) ==
LOC: PT 09:30
PROVIDERS: Referring Provider Anesthesiology Pain Medicine; Visit Provider Anesthesiology Pain Medicine
DX: M54.2 Cervicalgia (principal); M54.9 Dorsalgia, unspecified
CPT/HCPCS: 97113; 97162

== ENCOUNTER → 2022-09-28 | Outpatient (CLI) | payer MEDICARE, MEDICAID, SELFPAY ==
[2022-09-28 12:00] LABS: Absolute Lymphocyte Count 2.43 X10^3/uL (0.83-4.51); Absolute Neutrophil Count 8.5 X10^3/uL (2.0-7.7); Basophil# 0.09 X10^3/uL; Basophil% 0.7 % (0-1); Eosinophil# 0.25 X10^3/uL; Hematocrit 43.8 % (37-47); Hemoglobin 13.8 g/dL (12.0-15.0); Lymphocyte # 2.43 X10^3/ul (0.83-4.51); Lymphocyte % 19.6 % (19-41); Mean Corp Hgb Conc 31.5 g/dL (32-36); Mean Corpuscular Hgb 30.3 pg (27.0-32.0); Mean Corpuscular Volume 96.1 fL (81-99); Mean Platelet Vol. 9.8 fl (6.2-12.0); Monocyte# 0.76 X10^3/uL; Monocyte% 6.1 % (0-10); NRBC Flagged by Analyzer 0 % (0-5); Neutrophil # 8.54 X10^3/uL (2.7-7.7); Neutrophil % 69.1 % (47-70); Platelet Count 321 K/mm3 (150-450); RBC Distribution Width CV 14.8 % (11.6-14.6); RBC Distribution Width SD 52.3 fl (35.1-43.9); Red Blood Count 4.56 M/mm3 (4.2-5.4); White Blood Count 12.4 K/mm3 (4.4-11.0)
[2022-09-28 12:40] LABS: Vitamin B12 572 pg/mL (211-911)
[2022-09-28 13:40] LABS: ALB/GLOB Ratio 0.9 RATIO (0.9-2.4); AST(SGOT) 15 U/L (15-37); Alanine Aminotransfer ALT/SGPT 36 U/L (13-56); Albumin, Serum 3.8 g/dL (3.2-5.0); Alkaline Phosphatase 96 U/L (45-117); Anion Gap 9 (5-15); BUN 19 mg/dL (7-18); Calcium,Total 9.1 mg/dL (8.5-10.1); Chloride 107 mmol/L (98-107); Cholesterol 255 mg/dL (200); EST Glomerular Filtration Rate 62 mL/min (>60); Est Glom Filt Rate - Afr Amer 75 mL/min (>60); Ferritin 90 ng/mL (8-252); Globulin 4.3 g/dL (2.2-4.2); Glucose 93 mg/dL (74-106); High Density Lipoprotein 87 mg/dL; Iron 70 ug/dL (50-170); Iron Binding Capacity,Total 344 ug/dL (250-450); Magnesium 2.5 mg/dL (1.6-2.6); PERCENT IRON SATURATION 20.3 % (15.0-55.0); Potassium 3.6 mmol/L (3.5-5.1); Protein, Total 8.1 g/dL (6.4-8.2); Sodium Level 141 mmol/L (136-145); Triglycerides 100 mg/dL; Very Low Density Lipoprotein 20 mg/dL (5-40)
== END | disposition home or self-care (01) ==
LOC: LAB.FUTURE 11:12 → LAB 11:12
DX: I10 Essential (primary) hypertension (principal); E78.00 Pure hypercholesterolemia, unspecified; D51.9 Vitamin B12 deficiency anemia, unspecified; D50.9 Iron deficiency anemia, unspecified; E61.2 Magnesium deficiency
CPT/HCPCS: 36415; 80053; 80061; 82607; 82728; 82746; 83540; 83550; 83735; 84443; 85025

== ENCOUNTER → 2022-11-09 | Outpatient (CLI) | payer MEDICARE, MEDICAID, SELFPAY ==
--- NOTE | 2022-11-09 11:45 | RAD_ITS ---
INDICATION: PAIN EXAMINATION/TECHNIQUE: X-RAY - XR Hip Unilateral with Pelvis when performed; 2-3 Views COMPARISON: None. FINDINGS: A frontal view of the pelvis as well as frontal and lateral views of the right hip were obtained. A spinal stimulator is identified. A left hip prosthesis is visualized. No acute fracture identified. No dislocation. Sclerotic changes at the pubic symphysis, related to childbirth or degenerative change. RAD/HIP, UNI W/ Pelvis 2-3 Views IMPRESSION: No acute fracture or dislocation. Electronically Signed: Shahid Pope MD at 19:58 EDT ,
== END | disposition home or self-care (01) ==
LOC: RAD 11:43
PROVIDERS: Visit Provider Anesthesiology Pain Medicine
DX: M25.551 Pain in right hip (principal)
CPT/HCPCS: 73502

== ENCOUNTER 2023-02-19 12:30 | Outpatient (RCR) | payer MEDICARE, MEDICAID, SELFPAY ==
--- NOTE | 2023-02-05 15:42 | HP.PTEVAL_ITS ---
Patient's Visit Information BRUNO PATTERSON is a 52 year old F referred to Physical Therapy by Dr. Levon Reyes DO with a diagnosis of R greater trochanter bursitis and R knee pes anserinus bursitis. Date of Evaluation: 02/05/23 Physical Therapist: LAUREN Palomares - Visit Plan Frequency: 2x /Week Duration: 2 Months Plan: 2X/ week for 8 weeks for AT for neutral spine core stability, R hip and knee mobility and strength with HEP. ++++Pt has Meniere's disease and does not want her shoulders below the water as that will stir up her dizziness+++ - Subjective Pt has extreme back issues with a stimulator and is having trouble today with her back and tried to adjust her stimulator and did some therapy today but not sure can do therapy. She just had a nerve block on her neck but can not have one on her her back for awhile. She was told that she has bursitis in her R hip and knee. She got a shot in both the hip and knee 2 weeks ago on Sunday and that day she felt great and went to the store for the first time in 2 years and then she over did it and could not move. Since then it has made no improvement at all. The shot helped for 3-4 days. She wears the knee brace for stability to make sure she does not twsit her knee cause that is when she gets the sharp pain. She has pain all the time and pain goes down into top of the foot and sharp pains. She has gotten nerve blocks and it did not help the leg pain. She has only had her stimulator over a year. She is seeing pain management. Pt has menieres disease and it flared up her menieres disease. Her R hip and leg pain has been coming on for awhile and got bad at Astrid time. She has an artificial hip L. She is currently doing some stretches and can not hip abduct. She has no stairs at home. She can do the stairs recip with a railing. She has trouble putting weight on her R leg because of pain and that is achy pain. - Pain R hip pain Pain Intensity (Out of 10): 7 Pain Intensity Range: 10 Comment: with walking on it R knee pain Pain Intensity (Out of 10): 8 Pain Intensity Range: 10 Comment: with walking on it - Objective Gait: walks in with a leg brace on her R knee and a walking stick in the R hand with decrease step length on the R LE and overall decrease step length B. LE MMT: R hip flex 7.7 and L 10.5. R knee ext 8 and L 14.7. R knee flex 5.1 and L 10.8. R hip abd 12.5 and L 12.7. + SLUMP test on the R. -SLR R. ER of the R hip brings on her pain in her groin. No pain with resisted hip abd and hip add. Unable to bridge due to increase back pain. Pt reported that she started to get vertigo from the pain. - Balance/Special Test Scores Lower Extremity Functional Score: 20 - Goals Goal 1:: I HEP Goal Time Frame: 6-8 Weeks Goal 2:: Increase R knee strength (At time of the eval: LE MMT: R hip flex 7.7 and L 10.5. R knee ext 8 and L 14.7. R knee flex 5.1 and L 10.8. R hip abd 1 2.5 and L 12.7 Goal Time Frame: 6-8 Weeks Goal 3:: Pt to report less pain (at time of eval R knee 8 and R hip 7) Goal Time Frame: 6-8 Weeks - Rehabilitation Potential Rehabilitation Potential: Fair - Anticipated Interventions Patient/Client Instruction: Educate patient on: Condition, Plan of Care For the Purpose of:: To decrease pain, To increase ROM, To improve nutrient delivery to tissue, To improve muscle performance and motor function, To improve ability to perform ADL's, To increase tolerance to activity/condition/position, To improve performance and independence with ADL's, To decrease level of supervision to perform tasks, To improve ability of physical actions for home/community/work/leisure, To improve gait and locomotor functions, To increase flexibility/ROM, To improve safety with gait Therapeutic Exercise to Include: Strength training, Balance training, Postural training, Flexibilty training, Gait and locomotor training, Neuromotor development, In an aquatic setting, Active ROM, Dynamic Lumbar Stabilization, Scapular Strength/Stabilization For the Purpose of:: To decrease pain, To increase ROM, To improve nutrient delivery to tissue, To improve muscle performance and motor function, To improve ability to perform ADL's, To increase tolerance to activity/condition/position, To improve gait and locomotor functions, To improve health of tissue, To decrease soft tissue restriction, To increase flexibility/ROM, To improve safety with gait Thank you for the opportunity to evaluate your patient. For Medicare and Medicare HMO plans, please review the plan of care and approve it. It will need to be FAXED BACK to us at [phone] for Medicare purposes. For Medicare only, by signing this I certify the plan of care. Please let me know if there are questions or concerns regarding this plan of care. Physician Signature: Date:
--- NOTE | 2023-05-15 08:20 | HP.PT.NRP(2) ---
Patient Information Patient Information: BRUNO PATTERSON was seen in my office for initial evaluation on . The following Plan of Care was established for this patient: Last Seen Last Seen: This patient was last seen in our office . Pertinent comments regarding their Physical therapy will appear below: At this point I will be discontinuing this patient from physical therapy. I would be happy to see this patient again in the future if found appropriate by the physician. Thank you! Angelina Davila, MPT
== END 2023-02-19 19:00 | disposition home or self-care (01) ==
LOC: PT 12:30
PROVIDERS: Referring Provider Orthopaedic Surgery; Visit Provider Orthopaedic Surgery
DX: M70.61 Trochanteric bursitis, right hip (principal); M70.51 Other bursitis of knee, right knee
CPT/HCPCS: 97113; 97162

== ENCOUNTER 2023-02-20 13:07 | Emergency (ER) | payer MEDICARE, MEDICAID, SELFPAY ==
[2023-02-20 13:09] VITALS: BP 153/99; PULSE 93; RESP 18; TEMP 36; O2SAT 98; BMI 38.6
--- NOTE | 2023-02-20 14:34 | ED.VIS.BACK ---
HPI History of Present Illness Chief Complaint: Back Informant: patient Narrative Narrative: Patient is a 52-year-old female with history of degenerative disc disease and chronic back pain, degenerative disc disease of the lumbosacral region, lumbar spondylosis, spinal stenosis and bursitis of her hip who has a spinal stimulator presenting with worsening right lower back pain and leg pain. Patient states she has had pain in her right hip going into her groin and going down to her foot since Astrid time 2021 (for the past 7 months). She [address] Dr[address] Reyes and was diagnosed with bursitis and did have an injection for that by Dr. Fabian. She was referred back to physical therapy and had her first session yesterday. She states she feels that her pain is getting significantly worse. She states in the past getting to the pool for physical therapy was really helpful. She denies any new sudden falls or aggravating events. She states she has pretty severe pain in her right lower back that radiates down her anterior thigh. She notes it is worse with movement. She states she sometimes gets tingling of her entire right leg. She is taking gabapentin, NSAIDs and Tylenol for pain. She states she does not really like to take opioids because of her Meniere's disease. She denies any bowel or bladder incontinence or saddle anesthesia. She notes she does have a history of sciatica but this feels different. No other complaints or concerns at this time. Denies any fever or chills. [facility] Medical History Ambulates with cane Anemia Anxiety Arthritis Back problem Depression Dietary restriction Easy bruising Former smoker Gastric reflux Hearing problem History of edema History of pain when walking History of ulceration Hives Hypokalemia IBS (irritable bowel syndrome) Injury of head and neck Leg cramps Loss of hearing Menieres disease Migraine headache Neuropathy Osteoarthritis Pain Pneumonia Seasonal allergies Thyroid disease Ulcer Vision problem Vitamin deficiency Wears glasses Home Medications celecoxib 200 mg capsule 200 mg PO DAILY 12/27/16 [History Last Taken Unknown] cetirizine 5 mg-pseudoephedrine ER 120 mg tablet,extended release,12hr 1 ea PO DAILY 12/27/16 [History Last Taken Unknown] dexamethasone sodium phosphate 0.1 % eye drops 1 drp OP PRN PRN MENERIES 12/27/16 [History Last Taken Unknown] levothyroxine 75 mcg tablet 75 mcg PO DAILY 12/27/16 [History Last Taken 12/30/21] meclizine 12.5 mg tablet 12.5 mg PO DAILY PRN PRN Dizziness 12/27/16 [History Last Taken Unknown] amiloride 5 mg tablet 1 tab PO DAILY MENERIES 03/27/20 [History Last Taken Unknown] gabapentin 600 mg tablet 600 mg PO BID 08/17/21 [History Last Taken 12/30/21] omeprazole 40 mg capsule,delayed release 40 mg PO DAILY 08/17/21 [History Last Taken 12/30/21] ondansetron HCl 4 mg tablet 4 mg PO Q8H PRN NAUSEA 08/17/21 [History Last Taken Unknown] topiramate 100 mg tablet 100 mg PO BID 08/17/21 [History Last Taken 12/30/21] fluticasone propionate 50 mcg/actuation nasal spray,suspension 2 spray PRN PRN ALLERGIES 10/21/21 [History Last Taken Unknown] venlafaxine 75 mg capsule,extended release 24 hr (Effexor XR) 75 mg PO DAILY 12/27/21 [History Last Taken Unknown] rosuvastatin 10 mg tablet 10 mg PO DAILY 01/24/23 [History Last Taken Unknown] levothyroxine 88 mcg tablet (Levoxyl) 88 mcg PO DAILY 02/20/23 [History Last Taken Unknown] potassium chloride 20 mEq tablet,extended release 60 meq PO DAILY 02/20/23 [History Last Taken Unknown] prednisone 20 mg tablet 40 mg (2 x 20 mg) PO DAILY #8 tabs 02/20/23 [Rx Last Taken Unknown] tramadol 50 mg tablet 50 mg PO Q6H PRN pain 3 days #12 tabs 02/20/23 [Rx Last Taken Unknown] triamterene 37.5 mg-hydrochlorothiazide 25 mg tablet 1 tab PO DAILY 02/20/23 [History Last Taken Unknown] Allergy/AdvReac Type Severity Reaction Status Date / Time citric acid Allergy Severe wears dowm Verified 02/20/23 13:10 linning of mouth shellfish derived Allergy Severe vomitting Verified 02/20/23 13:10 duloxetine [From Cymbalta] Allergy Other Verified 02/20/23 13:10 Penicillins Allergy Hives Verified 02/20/23 13:10 gluten AdvReac Intermediate stomach Verified 02/20/23 13:10 discomfort Family History Other Alcohol abuse Anxiety Arthritis Autoimmune disease Bowel disease Colon cancer Depression Diabetes Heart disease High cholesterol Hypertension Mental disorder Psychiatric care Severe allergic reaction Thyroid disorder Surgical History H/O total hip arthroplasty S/P insertion of spinal cord stimulator Social History Smoking Status: Former smoker alcohol intake: current alcohol intake frequency: 0-2 drinks per day substance use type: does not use frequency: daily ROS ROS ED Constitutional Constitutional ED: Denies chills or fever(s) Cardiovascular Cardiovascular: Denies chest pain Musculoskeletal Musculoskeletal: Reports arthralgias and back pain Integumentary Denies rash Neurologic Neurologic: Reports paresthesias RLE; Denies headache(s) or weakness Psychiatric Psychiatric: Denies anxiety Hematologic/Lymphatic Hematologic/Lymphatic: Denies easy bleeding or easy bruising EXAM Physical Exam Const Vital Signs: 02/20/23 13:09 Temperature 96.8 F L Temperature Source Temporal Pulse Rate 93 Respiratory Rate 18 Blood Pressure 153/99 H Blood Pressure Mean 117 Pulse Ox 98 Oxygen Delivery Method Room Air Positive well nourished, well developed and obese General Appearance ED: well developed Nutritional Appearance: obese HEENT Reports moist mucous membranes Eyes PERRL and EOMs intact bilaterally Resp normal respiratory effort Cardio regular rate and regular rhythm Cardio Narrative: 2+ DP pulses Back/Spine Back/Spine Narrative: No midline tenderness. Surgical incision is well-healed of the lower lumbar spine present. Patient has significant tenderness of the right lower lumbar paraspinal region. Positive ipsilateral straight leg test on the right, negative straight leg test on the left. Extremity normal to inspection General Extremety ED: Negative for edema General Extremity: Negative for edema Neuro oriented x3 Neuro Narrative: 5/5 strength with plantar and dorsiflexion of the foot. Motor Exam: strength 5/5 throughout Psych mental status grossly normal Skin no rashes or lesions noted and no wounds MDM MDM MDM Narrative Medical decision making narrative: Patient is evaluated for acute on chronic back pain rating to her leg. She does have an extensive history of degenerative disc disease and lumbar issues. She has been having acute flare. I question if there is involvement of the lateral cutaneous nerve as it seems to come from her back to go around her hip and into the anterior thigh. Patient is given a dose of Toradol for pain in the ER. She does not have any findings distant with cauda equina syndrome and she does not have midline tenderness or any other red flag symptoms requiring emergent imaging at this time. She will be placed on a burst of steroids. We discussed that frequent steroids are not ideal and she does verbalize agreement understanding of this but would still like to try another course of steroids as she thinks that they do help. Will be given a short course of tramadol for breakthrough pain. I did check an [place] report and patient has not had any opioids prescribed, though working on there is gabapentin. Patient has appointment see pain management next with Dr. Wolff. He is given return precautions. She does have a rollator to use at home as needed. Discharged home in stable condition. Discharge Plan Triage Chief Complaint: Back ED Provider: Jennifer Anderson Dx/Rx/DC Orders Clinical Impression: Acute exacerbation of chronic low back pain, Lumbar radiculopathy, right Instructions: ED Back and Neck Pain, General Prescriptions: New prednisone 20 mg tablet 40 mg PO DAILY Qty: 8 0RF tramadol 50 mg tablet 50 mg PO Q6H PRN (Reason: pain) 3 Days Qty: 12 0RF No Action topiramate 100 mg tablet 100 mg PO BID Patient Comments: TAKE 1 TABLET BY MOUTH TWICE A DAY gabapentin 600 mg tablet 600 mg PO BID omeprazole 40 mg capsule,delayed release(DR/EC) 40 mg PO DAILY ondansetron HCl 4 mg tablet 4 mg PO Q8H PRN (Reason: NAUSEA) rosuvastatin 10 mg tablet 10 mg PO DAILY Patient Comments: take 1 tablet by mouth once daily cetirizine-pseudoephedrine 1 EACH tablet extended release 12 hr 1 ea PO DAILY celecoxib 200 MG capsule 200 mg PO DAILY meclizine 12.5 MG tablet 12.5 mg PO DAILY PRN PRN (Reason: Dizziness) dexamethasone sodium phosphate 5 ML drops 1 drp OP PRN PRN (Reason: MENERIES) levothyroxine 75 MCG tablet 75 mcg PO DAILY fluticasone propionate 50 mcg/actuation spray,suspension 2 spray NASAL PRN PRN (Reason: ALLERGIES) amiloride 5 mg tablet 1 tab PO DAILY Patient Comments: TAKE 1 TABLET BY MOUTH EVERY DAY venlafaxine [Effexor XR] 75 mg Capsule,Extended Release 24hr 75 mg PO DAILY levothyroxine [Levoxyl] 88 mcg tablet 88 mcg PO DAILY Patient Comments: TAKE 1 TABLET BY MOUTH ONCE DAILY potassium chloride 20 mEq tablet extended release 60 meq PO DAILY Patient Comments: TAKE 3 TABLETS BY MOUTH ONCE DAILY triamterene-hydrochlorothiazid 37.5-25 mg tablet 1 tab PO DAILY Patient Comments: take 1 tablet by mouth once daily Primary Care Provider: [facility] ,Out of Referrals: Mercy Jin MD [Med Staff - Active Staff] - Luther Schneider DO [Med Staff - Active Staff] - Giovanni Doctor,Out of [Primary Care Provider] - Activity Restrictions/Additional Instructions: Please follow-up with your pain doctor as we discussed. Only take the tramadol as needed. Continue aching anti-inflammatories as well as Tylenol in addition to the steroids prescribed. You been given information for one of our field specialist as well if needed. Disposition Disposition: Home, Self Care
[2023-02-20] MEDS: predniSONE 20 MG Tablet 60 MG PO (14:41)
[2023-02-20] MEDS: Ketorolac 15 MG/ML Vial IM (14:42)
== END 2023-02-20 15:41 | disposition home or self-care (01) ==
PROVIDERS: Emergency Provider Emergency Medicine; Visit Provider Emergency Medicine
DX: M47.26 Other spondylosis with radiculopathy, lumbar region (principal); G89.29 Other chronic pain; M51.37 Other intervertebral disc degeneration, lumbosacral region; M48.00 Spinal stenosis, site unspecified; Z87.891 Personal history of nicotine dependence
CPT/HCPCS: 96372; 99284

== ENCOUNTER → 2023-03-30 | Outpatient (CLI) | payer MEDICARE, MEDICAID, SELFPAY ==
[2023-03-30 12:32] LABS: Absolute Lymphocyte Count 1.58 X10^3/uL (0.83-4.51); Absolute Neutrophil Count 5.3 X10^3/uL (2.0-7.7); Basophil# 0.05 X10^3/uL; Basophil% 0.6 % (0-1); Eosinophil# 0.15 X10^3/uL; Eosinophils% 1.9 % (0-5); Hematocrit 46.5 % (37-47); Hemoglobin 14.9 g/dL (12.0-15.0); Lymphocyte # 1.58 X10^3/ul (0.83-4.51); Lymphocyte % 20.5 % (19-41); Mean Corpuscular Hgb 31.2 pg (27.0-32.0); Mean Corpuscular Volume 97.5 fL (81-99); Monocyte# 0.58 X10^3/uL; Monocyte% 7.5 % (0-10); NRBC Flagged by Analyzer 0 % (0-5); Neutrophil % 68.9 % (47-70); Platelet Count 264 K/mm3 (150-450); RBC Distribution Width CV 14.5 % (11.6-14.6); Red Blood Count 4.77 M/mm3 (4.2-5.4); White Blood Count 7.7 K/mm3 (4.4-11.0)
[2023-03-30 13:26] LABS: Potassium 3.7 mmol/L (3.5-5.1); Thyroid Stim Hormone (TSH) 1.17 uIU/mL (0.358-3.74)
[2023-03-31 14:29] LABS: AST(SGOT) 22 U/L (15-37); Alanine Aminotransfer ALT/SGPT 43 U/L (13-56); Albumin, Serum 4.1 g/dL (3.2-5.0); Alkaline Phosphatase 87 U/L (45-117); Anion Gap 8 (5-15); BUN 18 mg/dL (7-18); BUN/Creat Ratio 17.8 RATIO (10-20); Calcium,Total 9.2 mg/dL (8.5-10.1); Chloride 109 mmol/L (98-107); Cholesterol 186 mg/dL (200); Creatinine, Serum 1.01 mg/dL (0.55-1.02); EST Glomerular Filtration Rate 61 mL/min (>60); Est Glom Filt Rate - Afr Amer 74 mL/min (>60); Glucose 108 mg/dL (74-106); High Density Lipoprotein 88 mg/dL; Protein, Total 8.1 g/dL (6.4-8.2); Sodium Level 140 mmol/L (136-145); Triglycerides 98 mg/dL; Very Low Density Lipoprotein 20 mg/dL (5-40)
== END | disposition home or self-care (01) ==
DX: E03.9 Hypothyroidism, unspecified (principal); E87.6 Hypokalemia; D72.829 Elevated white blood cell count, unspecified
CPT/HCPCS: 36415; 80053; 80061; 84132; 84443; 85025

== ENCOUNTER → 2023-07-20 | Outpatient (CLI) | payer MEDICARE, MEDICAID, SELFPAY ==
--- NOTE | 2023-07-20 16:05 | MRI_ITS ---
STUDY: MRI LUMBAR SPINE WITHOUT CONTRAST REASON FOR EXAM: Female, 52 years old. Pain into bilateral legs TECHNIQUE: Standardized fat and water weighted pulse sequences were obtained in the sagittal and axial planes. Noncontrast images obtained. Contrast: No contrast administered COMPARISON: 09/26/2021 FINDINGS: Vertebral bodies and alignment. 1. Vertebral body height and alignment are unchanged. Discogenic endplate changes again noted L2-3 and L3-4 with negligible interval change. 2. No evidence of destructive marrow replacement processes or acute fracture.. 3. Paraspinous soft tissue planes have normal appearance. Normal appearance of the muscular fascial planes of the erector spinae. 4. Normal appearance of the sacrum and sacroiliac joints. 5. There are linear areas of susceptibility which. Represent spinal stimulator leads projecting superiorly in the thoracic spine entering the canal at the L1-2 level. 6. There is a linear T2 hyperintensity with hypointense T1 along posterior epidural space along the course of the spinal stimulator extending from L1 superiorly through the visualized thoracic spine. (Series 2: Image 8, series 4: Image 8, series 3: Image 8). Small amount of fluid versus blood within the posterior epidural space associated with the spinal stimulator lead is a consideration. Intervertebral disks levels. T12-L1: Normal endplates. Normal disc height, hydration and morphology. Normal bilateral facet joints. Normal central canal and bilateral lateral recesses. Normal bilateral intervertebral neural foramina. L1-2: Disc desiccation with posterior lateral paracentral disc protrusion/herniation with deformity of the anterior epidural space and compression of LEFT lateral recess. Mild persistent LEFT foraminal narrowing without change. L2-3: Disc desiccation, mild retrolisthesis, and a broad-based eccentric disc protrusion greater on the RIGHT than LEFT. No central canal stenosis however compromise of the RIGHT lateral recess and compression of nerve roots in the RIGHT lateral recess without significant interval change. There is persistent mild RIGHT foraminal narrowing. L3-4: Disc desiccation, broad-based posterior disc bulge and osteophyte complex without evidence of canal stenosis. There is minimal L3 retrolisthesis of L4. There is foraminal stenosis greater on the RIGHT than LEFT and mild impingement of the emerging L3 nerve root suspected. Findings however appear stable. L4-5: Disc desiccation, broad-based mildly eccentric LEFT greater than RIGHT disc bulge without evidence of canal stenosis. Mild crowding of nerve roots in the lateral recess on the LEFT without evidence db nerve root impingement. Neural foramina are mildly narrowed without evidence of nerve root impingement. L5-S1: Disc desiccation, no evidence of disc herniation or canal stenosis. There is however significant the LEFT foraminal stenosis with potential LEFT L5 nerve root impingement which appears to be mildly worsened in the interval. Spinal cord: Normal appearance of the spinal cord and conus. Conus is located at L1-2. Cauda equina has normal appearance. No evidence of cord compression or edema. No intramedullary signal abnormality noted. MRI/Spine Lumbar (Routine) IMPRESSION: 1. Interval placement of thoracic stimulator leads projecting in the spinal canal entering at the L2-3 level projecting superiorly. 2. Persistent chronic appearing disc changes, chronic disc protrusions including LEFT posterior lateral protrusion at L1-2, RIGHT broad-based posterior lateral protrusion at L2-3 minimal disc bulges at remaining levels. No evidence of db canal stenosis. 3. Multilevel foraminal stenosis as described in detail above. There has been interval worsening of LEFT foraminal stenosis at L5-S1 with developing LEFT L5 nerve root impingement. 4. No evidence of cord or conus compression. 5. There is a linear T2 hyperintensity with hypointense T1 collection along the posterior epidural space along the course of the spinal stimulator extending from L1 superiorly through the visualized thoracic spine. Small amount of fluid versus blood within the epidural space associated with the spinal stimulator lead is a consideration Electronically Signed: Hunter Mills MD at 1:12 EST ,
== END | disposition home or self-care (01) ==
LOC: MRI 15:56
PROVIDERS: Referring Provider Orthopaedic Surgery Orthopaedic Surgery of the Spine; Visit Provider Orthopaedic Surgery Orthopaedic Surgery of the Spine
DX: M43.16 Spondylolisthesis, lumbar region (principal)
CPT/HCPCS: 72148

== ENCOUNTER → 2023-08-20 | Outpatient (CLI) | payer MEDICARE, MEDICAID, SELFPAY ==
[2023-08-20 16:04] LABS: Hemoglobin A1c 5.3 % (3.8-5.6)
[2023-08-20 16:39] LABS: Cholesterol 176 mg/dL (200); High Density Lipoprotein 74 mg/dL; Triglycerides 128 mg/dL; Very Low Density Lipoprotein 26 mg/dL (5-40)
== END | disposition home or self-care (01) ==
LOC: LAB 14:26
DX: I10 Essential (primary) hypertension (principal); E78.00 Pure hypercholesterolemia, unspecified; E03.9 Hypothyroidism, unspecified; D64.9 Anemia, unspecified; E61.2 Magnesium deficiency; R73.01 Impaired fasting glucose
CPT/HCPCS: 80061; 83036

== ENCOUNTER 2023-09-03 05:29 | Inpatient (IN) | payer MEDICARE, MEDICAID, SELFPAY ==
--- NOTE | 2023-08-20 14:10 | EKG12_ITS ---
Test Reason : PRE OP Blood Pressure : / mmHG Vent. Rate : 096 BPM Atrial Rate : 096 BPM P-R Int : 154 ms QRS Dur : 082 ms QT Int : 348 ms P-R-T Axes : 060 -58 060 degrees QTc Int : 439 ms Normal sinus rhythm Left axis deviation Abnormal ECG Confirmed by AILIN BOCANEGRA, ARABELLA ([id number]), editorial assistant JASON RODRIGUEZ ([id number]) on 08/21/2023 5:34:49 AM Referred By: LOGAN TODD Confirmed By:ARABELLA PARISI MD
[2023-08-20 15:24] LABS: Absolute Lymphocyte Count 2.26 X10^3/uL (0.83-4.51); Absolute Neutrophil Count 6.1 X10^3/uL (2.0-7.7); Basophil# 0.05 X10^3/uL; Basophil% 0.5 % (0-1); Eosinophil# 0.16 X10^3/uL; Eosinophils% 1.7 % (0-5); Hematocrit 42.8 % (37-47); Lymphocyte # 2.26 X10^3/ul (0.83-4.51); Lymphocyte % 24.6 % (19-41); Mean Corp Hgb Conc 32.7 g/dL (32-36); Mean Corpuscular Hgb 30.6 pg (27.0-32.0); Mean Corpuscular Volume 93.7 fL (81-99); Mean Platelet Vol. 10.2 fl (6.2-12.0); Monocyte# 0.62 X10^3/uL; Monocyte% 6.8 % (0-10); NRBC Flagged by Analyzer 0 % (0-5); Neutrophil # 6.05 X10^3/uL (2.7-7.7); Platelet Count 280 K/mm3 (150-450); RBC Distribution Width CV 14.4 % (11.6-14.6); RBC Distribution Width SD 49.2 fl (35.1-43.9); Red Blood Count 4.57 M/mm3 (4.2-5.4); White Blood Count 9.2 K/mm3 (4.4-11.0)
[2023-08-20 15:30] LABS: International Normalized Ratio 1.1; Prothrombin Time (Protime)PT. 14.3 SECONDS (11.7-14.9)
[2023-08-20 16:18] LABS: AST(SGOT) 34 U/L (15-37); Alanine Aminotransfer ALT/SGPT 50 U/L (13-56); Alkaline Phosphatase 83 U/L (45-117); Anion Gap 9 (5-15); BUN 21 mg/dL (7-18); BUN/Creat Ratio 23.3 RATIO (10-20); Bilirubin, Direct 0.13 mg/dL (0.00-0.30); Calcium,Total 9.4 mg/dL (8.5-10.1); Chloride 111 mmol/L (98-107); EST Glomerular Filtration Rate 70 mL/min (>60); Est Glom Filt Rate - Afr Amer 84 mL/min (>60); Globulin 3.9 g/dL (2.2-4.2); Glucose 81 mg/dL (74-106); Magnesium 2.2 mg/dL (1.6-2.6); Potassium 3.5 mmol/L (3.5-5.1); Protein, Total 7.9 g/dL (6.4-8.2); Sodium Level 141 mmol/L (136-145); Thyroid Stim Hormone (TSH) 1.67 uIU/mL (0.358-3.74)
[2023-08-20 16:23] LABS: HIV - WCH Non-Reactive (Nonreactive)
[2023-08-22 05:09] LABS: Hepatitis A AB, Total Positive (Negative)
[2023-08-23 11:40] LABS: Hepatitis B Surface Antibody Non-Reactive; Hepatitis C Antibody Non-Reactive (Nonreactive)
[2023-08-24 13:08] LABS: Hepatitis A AB, Total Positive (Negative)
[2023-09-03] VITALS (12 sets, daily range): BP systolic 74–132; BP diastolic 49–86; PULSE 74–100; RESP 12–18; TEMP 36.2–37.1; O2SAT 93–100; BMI 36.3
--- OUTSIDE RECORDS SUMMARY | 2023-09-03 05:34 | XMS RPT_ITS | CCD ---
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 Logan Biswas Attending Unavail able Boo, Dr. Logan Biswas Primary Care Unavail able Raj, Dr. Yuni Leyva Referring Un available Raj, Dr. Yuni Leyva Attending Un available Boo, Dr. Logan Biswas Primary Care Unavail able Raj, Dr. Yuni Leyva Attending Un available Boo, Dr. Logan Biswas Primary Care Unavail able Raj, Dr. Yuni Leyva Referring Un available ADELE, MIKE Y Referring Unavailable LOGAN HADDAD Primary Care Unavailable TRAVIS FROST Referring Unavailable LOGAN HADDAD Primary Care Unavailable FESTUS VEGA Attending Unavailable PERCY VARGAS Attending Unavailable LOGAN HADDAD Primary Care Unavailable PERCY VARGAS Attending Unavailable LOGAN HADDAD Primary Care Unavailable PERCY VARGAS Attending Unavailable SAM, PERCY Referring Unavailable LOGAN HADDAD Primary Care Unavailable ADELE, MIKE Y Attending Unavailable LOGAN HADDAD Primary Care Unavailable PERCY VARGAS Attending Unavailable PERCY VARGAS Referring Unavailable LOGAN HADDAD Primary Care Unavailable TRAVIS FROST Attending Unavailable LOGAN HADDAD Primary Care Unavailable WABEKE, PERCY Attending Unavailable BOO, LOGAN BISWAS Primary Care Unavailable WABEKE, PERCY Attending Unavailable BOO, LOGAN BISWAS Primary Care Unavailable WABEKE, PERCY Attending Unavailable WABEKE, PERCY Referring Unavailable BOO, LOGAN BISWAS Primary Care Unavailable WABEKE, PERCY Attending Unavailable WABEKE, PERCY Referring Unavailable BOO, LOGAN BISWAS Primary Care Unavailable ADELE, MIKE Y Attending Unavailable BOO, LOGAN BISWAS Primary Care Unavailable WABEKE, PERCY Attending Unavailable BOO, LOGAN BISWAS Primary Care Unavailable WABEKE, PERCY Attending Unavailable BOO, LOGAN BISWAS Primary Care Unavailable WABEKE, PERCY Attending Unavailable WABEKE, PERCY Referring Unavailable BOO, LOGAN BISWAS Primary Care Unavailable WABEKE, PERCY Attending Unavailable WABEKE, PERCY Referring Unavailable BOO, LOGAN BISWAS Primary Care Unavailable WABEKE, PERCY Referring Unavailable WABEKE, PERCY Attending Unavailable BOO, LOGAN BISWAS Primary Care Unavailable WABEKE, PERCY Attending Unavailable BOO, LOGAN BISWAS Primary Care Unavailable WABEKE, PERCY Referring Unavailable WABEKE, PERCY Attending Unavailable BOO, LOGAN BISWAS Primary Care Unavailable WABEKE, PERCY Referring Unavailable WABEKE, PERCY Attending Unavailable BOO, LOGAN BISWAS Primary Care Unavailable WABEKE, PERCY Referring Unavailable WABEKE, PERCY Attending Unavailable BOO, LOGAN BISWAS Primary Care Unavailable WABEKE, PERCY Attending Unavailable BOO, LOGAN BISWAS Primary Care Unavailable WABEKE, PERCY Attending Unavailable WABEKE, PERCY Referring Unavailable BOO, LOGAN BISWAS Primary Care Unavailable WABEKE, PERCY Referring Unavailable WABEKE, PERCY Attending Unavailable BOO, LOGAN BISWAS Primary Care Unavailable WABEKE, PERCY Referring Unavailable WABEKE, PERCY Attending Unavailable BOO, LOGAN BISWAS Primary Care Unavailable Allergies Allergy Classification Reported Allergen(s) Allergy Type Date of Onset Reaction(s) Facility DULoxetine (2 sources) DULoxetine; Translations: [Cymbalta] Drug Allergy [facility] Work Phone: Penicillins (antibiotic) (2 sources) Penicillins; Translations: [Penicillins] Drug Allergy [facility] Work Phone: (6 sources) DULoxetine; Translations: [Cymbalta] Drug Allergy [facility] Work Phone: (8 sources) Penicillins; Translations: [Penicillins] Allergy to drug (finding) 9 [facility] Other [place] [facility] (13 sources) DULoxetine; Translations: [DULOXETINE] Drug Allergy 9 Other: See Comments [facility] (13 sources) Lactose; Translations: [LACTOSE] Drug Allergy 8 GI Upset [facility] (11 sources) Penicillins Propensity to adverse reactions 9 Hives [facility] (13 sources) Shellfish; Translations: [SHELLFISH DERIVED] Drug Intolerance 8 Vomiting [facility] Medications Current Medications Medication Drug Class(es) Dates Sig (Normalized) Sig (Original) polyethylene glycol 3350 055060 mg / potassium chloride 2970 mg / sodium bicarbonate 6740 mg / sodium chloride 5860 mg / sodium sulfate 03799 mg powder for oral solution (1 source) Osmotic Laxative Start: 11-06-2022 End: 11-06-2022 peg 3350-Electrolytes (GOLYTELY) 236-22.74-6.74 -5.86 gram suspension Indications: Encounter for screening for malignant neoplasm of colon Take 4,000 mL by mouth one time only for 1 dose. Refer to printed prep instructions from your provider. 4000 mL 0 11/06/2022 11/06/2022 Active Completed/Discontinued Medications Medication Drug Class(es) Dates Sig (Normalized) Sig (Original) acetaminophen 325 mg oral tablet (11 sources) Start: 11-08-2017 take 2 tablets by mouth every four hours as needed for pain acetaminophen (TYLENOL) 325 mg tablet Indications: Status post total replacement of left hip Take 2 tablets by mouth every 4 hours as needed for Pain (post op total joint pain). 30 tablet 1 11/08/2017 Active Problems Active Problems Problem Classification Problem Date Documented Date Episodic/Chronic Conditions associated with dizziness or vertigo (20 sources) Meniere's disease, right ear; Translations: [Meniere's disease of right inner ear] Chronic Disorders of lipid metabolism (3 sources) Pure hypercholesterolemia, unspecified; Translations: [Pure hypercholesterolemia, unspecified] Onset: 10-09-2022 Chronic Essential hypertension (14 sources) Essential hypertension; Translations: [Essential (primary) hypertension] Onset: 10-22-2017 10-22-2017 Chronic Headache; including migraine (20 sources) Migraine variants; Translations: [Other migraine, not intractable, without status migrainosus] Onset: 08-27-2009 Chronic Immunizations and screening for infectious disease (13 sources) Patient encounter status; Translations: [Screening examination for venereal disease] Episodic Menopausal disorders (11 sources) Menorrhagia; Translations: [Excessive bleeding in the premenopausal period] Onset: 02-08-2021 02-08-2021 Chronic Menstrual disorders (8 sources) Irregular periods; Translations: [Irregular menstrual cycle] Chronic Miscellaneous mental health disorders (11 sources) Pain disorder with psychological factor; Translations: [Pain disorder with related psychological factors] Onset: 09-13-2015 09-13-2015 Chronic Mood disorders (20 sources) Recurrent major depression in partial remission; Translations: [Major depressive disorder, recurrent, in partial remission] Onset: 06-23-2015 06-23-2015 Chronic Nutritional deficiencies (11 sources) Vitamin D deficiency; Translations: [Vitamin D deficiency, unspecified] Onset: 02-08-2021 02-08-2021 Chronic Osteoarthritis (11 sources) Osteoarthritis of left hip joint; Translations: [Unilateral primary osteoarthritis, left hip] Onset: 10-22-2017 10-22-2017 Chronic Other aftercare (1 source) Long-term current use of diuretic; Translations: [Other assisted (current) drug therapy] Episodic Other ear and sense organ disorders (5 sources) Otalgia; Translations: [Otalgia, unspecified] Episodic Other ear and sense organ disorders (3 sources) Pain of ear structure; Translations: [Otalgia, unspecified] Episodic Other nervous system disorders (1 source) Impairment of balance; Translations: [Other abnormalities of gait and mobility] Episodic Other screening for suspected conditions (not mental disorders or infectious disease) (6 sources) Encounter for screening mammogram for malignant neoplasm of breast; Translations: [Encounter for screening for malignant neoplasm of colon] Onset: 10-09-2022 Episodic Other upper respiratory disease (11 sources) Rhinitis; Translations: [Chronic rhinitis] Onset: 04-21-2013 04-21-2013 Chronic Other upper respiratory infections (11 sources) Sinusitis; Translations: [Chronic sinusitis, unspecified] Onset: 04-21-2013 04-21-2013 Chronic Substance-related disorders (11 sources) Nicotine dependence; Translations: [Nicotine dependence, unspecified, uncomplicated] Onset: 11-07-2017 11-07-2017 Chronic Thyroid disorders (11 sources) Hypothyroidism; Translations: [Hypothyroidism, unspecified] Onset: 10-22-2017 10-22-2017 Chronic Unclassified (11 sources) Transformed migraine; Translations: [Chronic migraine] Onset: 12-08-2014 12-08-2014 Urinary tract infections (8 sources) Bacterial urinary infection; Translations: [Urinary tract infection, site not specified] Episodic Past or Other Problems Problem Classification Problem Date Documented Date Episodic/Chronic Complication of device; implant or graft (11 sources) Complication of implant; Translations: [Breakdown (mechanical) of other specified internal prosthetic devices, implants and grafts, initial encounter] Onset: 04-21-2013 04-21-2013 Episodic Fluid and electrolyte disorders (11 sources) Hypokalemia; Translations: [Hypokalemia] Onset: 10-23-2017 10-23-2017 Episodic Headache; including migraine (11 sources) Medication overuse headache; Translations: [Drug-induced headache, not elsewhere classified, not intractable] Onset: 12-08-2014 12-08-2014 Episodic Miscellaneous mental health disorders (11 sources) Psychophysiologic insomnia; Translations: [Adjustment insomnia] Onset: 02-08-2021 02-08-2021 Episodic Other connective tissue disease (11 sources) Muscle pain; Translations: [Myalgia and myositis, unspecified] Onset: 12-08-2014 12-08-2014 Episodic Other ear and sense organ disorders (11 sources) Otalgia, right ear; Translations: [Otalgia, unspecified] Onset: 04-21-2013 04-21-2013 Episodic Other nervous system disorders (11 sources) Abnormal gait; Translations: [Unspecified abnormalities of gait and mobility] Onset: 07-19-2009 07-19-2009 Episodic Otitis media and related conditions (20 sources) Perforation of right tympanic membrane; Translations: [Unspecified perforation of tympanic membrane, right ear] Onset: 03-11-2010 Episodic Spondylosis; intervertebral disc disorders; other back problems (20 sources) Neck pain; Translations: [Cervicalgia] Onset: 07-19-2009 07-19-2009 Episodic Syncope (2 sources) Syncope and collapse; Translations: [Syncope and collapse] Onset: 05-12-2022 Episodic Unclassified (14 sources) Patient encounter status; Translations: [Screening examination for STD (sexually transmitted disease)] NEGATED: Highlighted row has not occurred!Residual codes; unclassified (8 sources) Disease Episodic Results Test Name Value Interpretation Reference Range Facil ity Vital Signs Date Time Vital Sign Value Performing Clinician Facility 03-27-2023 16:01-0400 Body height 165.1 cm Mike Angulo MD Work Phone: [facility] 03-27-2023 16:01-0400 Body weight 102.92 kg Mike Angulo MD Work Phone: [facility] 03-27-2023 16:01-0400 Diastolic blood pressure 73 mm[Hg] Mike Angulo MD Work Phone: [facility] 03-27-2023 16:01-0400 Heart rate 86 /min Mike Angulo MD Work Phone: [facility] 03-27-2023 16:01-0400 SaO2% (BldA) [Mass fraction] 94 % Mike Angulo MD Work Phone: [facility] 03-27-2023 16:01-0400 Systolic blood pressure 121 mm[Hg] Mike Angulo MD Work Phone: [facility] 11-10-2022 13:30-0400 Body temperature 97 [degF] Travis Frost MD Work Phone: [facility] 11-10-2022 13:30-0400 Diastolic blood pressure 85 mm[Hg] Travis Frost MD Work Phone: [facility] 11-10-2022 13:30-0400 Heart rate 75 /min Travis Frost MD Work Phone: [facility] 11-10-2022 13:30-0400 Respiratory rate 16 /min Travis Frost MD Work Phone: [facility] 11-10-2022 13:30-0400 SaO2% (BldA) [Mass fraction] 95 % Travis Frost MD Work Phone: [facility] 11-10-2022 13:30-0400 Systolic blood pressure 138 mm[Hg] Travis Frost MD Work Phone: [facility] 11-06-2022 13:16-0400 Body height 165.1 cm Travis Frost MD Work Phone: [facility] 11-06-2022 13:16-0400 Body temperature 98.01 [degF] Travis Frost MD Work Phone: [facility] 11-06-2022 13:16-0400 Body weight 108.05 kg Travis Frsot MD Work Phone: [facility] 11-06-2022 13:16-0400 Diastolic blood pressure 84 mm[Hg] Travis Frost MD Work Phone: [facility] 11-06-2022 13:16-0400 Heart rate 99 /min Travis Frost MD Work Phone: [facility] 11-06-2022 13:16-0400 SaO2% (BldA) [Mass fraction] 99 % Travis Frost MD Work Phone: [facility] 11-06-2022 13:16-0400 Systolic blood pressure 122 mm[Hg] Travis Frost MD Work Phone: [facility] 05-29-2022 14:18-0400 Body height 165.1 cm Logan Haddad Work Phone: [facility] Work Phone: 05-29-2022 14:18-0400 Body mass index (BMI) [Ratio] 39.44 kg/m2 Logan Haddad Work Phone: [facility] Work Phone: 05-29-2022 14:18-0400 Body surface area Derived from formula 2.13 m2 Logan Haddad Work Phone: [facility] Work Phone: 05-29-2022 14:18-0400 Body weight 107.5 kg Logan Haddad Work Phone: [facility] Work Phone: 05-29-2022 14:18-0400 Diastolic blood pressure 79 mm[Hg] Logan Haddad Work Phone: [facility] Work Phone: 05-29-2022 14:18-0400 Systolic blood pressure 129 mm[Hg] Logan Ocasio Gulliver Work Phone: [facility] Work Phone: 04-06-2022 09:10-0400 Body height 167.6 cm Mike Angulo MD Work Phone: [facility] 04-06-2022 09:10-0400 Body weight 107.96 kg Mike Angulo MD Work Phone: [facility] 04-06-2022 09:10-0400 Diastolic blood pressure 92 mm[Hg] Mike Angulo MD Work Phone: [facility] 04-06-2022 09:10-0400 Heart rate 74 /min Mike Angulo MD Work Phone: [facility] 04-06-2022 09:10-0400 Respiratory rate 16 /min Mike Angulo MD Work Phone: [facility] 04-06-2022 09:10-0400 SaO2% (BldA) [Mass fraction] 95 % Mike Angulo MD Work Phone: [facility] 04-06-2022 09:10-0400 Systolic blood pressure 138 mm[Hg] Mike Angulo MD Work Phone: [facility] 02-28-2021 10:29-0400 Body height 165.1 cm Logan Haddad Work Phone: [facility] Work Phone: 02-28-2021 10:29-0400 Body mass index (BMI) [Ratio] 35.78 kg/m2 Logan Ocasio Boo Work Phone: [facility] Work Phone: 02-28-2021 10:29-0400 Body surface area Derived from formula 2.04 m2 Logan Ocasio Boo Work Phone: [facility] Work Phone: 02-28-2021 10:29-0400 Body weight 97.52 kg Logan Amarjit Boo Work Phone: [facility] Work Phone: 02-28-2021 10:29-0400 Diastolic blood pressure 84 mm[Hg] Logan Ocasio Boo Work Phone: [facility] Work Phone: 02-28-2021 10:29-0400 Systolic blood pressure 124 mm[Hg] Logan Ocasio Boo Work Phone: [facility] Work Phone: 02-24-2020 11:11-0400 BMI (Body Mass Index) 33.95 kg/m2 Melinda Son [facility] Work Phone: 02-24-2020 11:11-0400 Body weight 92.53 kg Melinda Son [facility] Work Phone: 02-24-2020 11:11-0400 BP Diastolic 84 mm[Hg] Melinda Son [facility] Work Phone: 02-24-2020 11:11-0400 BP Systolic 128 mm[Hg] [facility] 02-24-2020 11:11040 BSA (Body Surface Area) 1.99 m2 [facility] Work Phone: 02-24-2020 11:11040 Height 165.1 cm [facility] Work Phone: Encounters Encounter Date Encounter Type Care Provider Facility Start: 08-31-2023 End: 08-31-2023 ambulatory PERCY IABEKE Facility:[facility] Start: 08-17-2023 End: [facility] Start: 07-27-2023 End: 07-27-2023 [facility] Start: 07-18-2023 End: 07-18-2023 [facility] Start: 07-13-2023 End: 07-13-2023 ambulatory PERCY WABEKE Facility:[facility] Start: 06-29-2023 End: 06-29-2023 ambulatory OMAHA WABEKE Facility:[facility] Start: 06-15-2023 End: 06-15-2023 [facility] Start: 06-01-2023 End: 06-01-2023 ambulatory PERCY WABEKE Facility:[facility] Start: 05-11-2023 End: 05-11-2023 ambulatory PERCY WABEKE Facility:[facility] Start: 04-27-2023 End: 04-27-2023 ambulatory OMAHA WABEKE Facility:[facility] Start: 04-13-2023 End: 04-13-2023 ambulatory PERCY WABEKE Facility:[facility] Start: 03-27-2023 End: 03-28-2023 ambulatory MIKE ANGULO Facility:[facility] Start: 03-27-2023 End: 03-28-2023 Office outpatient visit 25 minutes Mike Angulo MD Work Phone: Neurology Procedures Date Procedure Procedure Detail Performing Clinician Start: 11-10-2022 Colonoscopy flx dx w /collj spec when pfrmd Travis Frost MD Work Phone: Start: 11-10-2022 Colonoscopy Travis george MD Work Phone: Start: 10-09-2022 Mammography Mike melgar MD Work Phone: Start: 02-24-2020 MG Breast screening Susie Son Start: 02-24-2020 Microscopic observat ion [Identifier] in Cervix by Cyto stain.thin prep Melinda Son Plan of Treatment Date Care Activity Detail Author Start: 11-10-2032 Colonoscopy COLONOSCOPY [facility] Start: 11-10-2032 COLORECTAL CANCER SCREENING COLORECTAL CANCER SCREENING [facility] Start: 02-07-2025 DIABETES SCREEN DIABETES SCREEN [facility] Start: 03-27-2024 BP CONTROLLED (<130/80) BP CONTROLLED (<130/80) [facility] Start: 11-11-2023 Colonoscopy COLONOSCOPY [facility] Start: 11-11-2023 COLORECTAL CANCER SCREENING COLORECTAL CANCER SCREENING [facility] Start: 10-09-2023 Mammography MAMMOGRAM [facility] Start: 06-11-2023 Patient encounter procedure ANNUAL, Provider: Yuni Anthony, Status: Pen, Time: 3:00 PM [facility] Work Phone: Start: 04-13-2023 Influenza vaccination INFLUENZA (#1) [facility] Start: 07-12-2022 LIPID SCREEN LIPID SCREEN [facility] Start: 04-13-2022 Influenza vaccination INFLUENZA (#1) [facility] Start: 10-28-2021 COVID-19 VACCINE (4 - Booster for Moderna series) COVID-19 VACCINE (4 - Booster for Moderna series) [facility] Start: 08-25-2021 COVID-19 VACCINE (4 - Booster for Moderna series) COVID-19 VACCINE (4 - Booster for Moderna series) [facility] Start: 08-25-2021 COVID-19 VACCINE (4 - Moderna series) COVID-19 VACCINE (4 - Moderna series) [facility] Start: 2020 SHINGRIX VACCINE (1 of 2) SHINGRIX VACCINE (1 of 2) [facility] Start: 11-08-2018 PNEUMOCOCCAL (2 - PCV) PNEUMOCOCCAL (2 - PCV) [facility] Start: 10-23-2018 ANNUAL PCP TEAM CHRONIC DISEASE VISIT ANNUAL PCP TEAM CHRONIC DISEASE VISIT [facility] Start: 10-12-2015 COLOGUARD (FIT-DNA) COLOGUARD (FIT-DNA) [facility] Start: 10-12-2015 Colonoscopy COLONOSCOPY [facility] Start: 10-12-2015 COLORECTAL CANCER SCREENING COLORECTAL CANCER SCREENING [facility] Start: 10-12-[address] COLONOGRAPHY [facility] Start: 10-12-2015 FECAL OCCULT BLOOD FECAL OCCULT BLOOD [facility] Start: 10-12-2015 SIGMOIDOSCOPY SIGMOIDOSCOPY [facility] Start: 2010 Mammography MAMMOGRAM [facility] Start: 2000 HPV TESTING HPV TESTING [facility] Start: 10-12-1991 PAP TESTING PAP TESTING [facility] Start: 1989 Urine microalbumin profile DTAP,TDAP,TD (1 - Tdap) [facility] Start: 1988 ANNUAL PCP TEAM CHRONIC DISEASE VISIT ANNUAL PCP TEAM CHRONIC DISEASE VISIT [facility] Start: 1988 BP CONTROLLED (<130/80) BP CONTROLLED (<130/80) [facility] Start: 1988 HEPATITIS C SCREENING HEPATITIS C SCREENING [facility] Start: 1988 HIV SCREENING HIV SCREENING [facility] Start: 1970 HEPATITIS B (1 of 3 - 3-dose series) HEPATITIS B (1 of 3 - 3-dose series) [facility] End: 11-07-2023 COLONOSCOPY DIAGNOSTIC COLONOSCOPY DIAGNOSTIC Endoscopy Routine Encounter for screening for malignant neoplasm of colon 1 Occurrences starting 11/06/2022 until 11/07/2023 [facility] Work Phone: Immunizations Immunization Date Immunization Notes Care Provider Mariya eddy 11-08-2017 pneumococcal polysaccharide vaccine, 23 holly Mortensen MD Work Phone: [facility] Payers Date Payer Category Payer Medicare [id number] 2018 Private Health Insurance [id number] 2015 Medicaid [id number] 2015 Medicaid [id number] 1970 Unknown [id number] 1970 Unknown [id number] 1970 Unknown [id number] Unknown Unknown [id number] Social History Date Type Detail Facility Start: 10-22-2017 End: 12-15-2022 Current every day smoker Current every day smoker [facility] Start: 10-22-2017 Tobacco smoking stat [facility] Smokes tobacco daily [facility] Work Phone: End: 08-13-2021 History of tobacco use Cigarette Smoker [facility] Work Phone: Start: 10-22-2017 End: 11-06-2022 Tobacco use and exposure Smokeless tobacco non-user [facility] Work Phone: Start: 02-07-2022 Alcohol intake Current drinke r of alcohol (finding) [facility] Start: 10-22-2017 End: 11-06-2022 Tobacco Comment currently 1 pack every 3 days; patient cutting back for surgery - not ready to quit [facility] Start: 1970 Sex Assigned At Female [facility] Start: 02-26-2022 End: 05-12-2022 Exposure to SARS-CoV-2 (event) Not sure [facility] [facility] Start: 11-06-2022 Tobacco smoking stat us WVIS Ex-smoker [facility] End: 08-13-2021 History of tobacco use Current smoker [facility] Start: 11-06-2022 End: 11-22-2022 Alcohol intake Ex-drinker (finding) [facility] Start: 11-06-2022 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 [facility] Start: 11-22-2022 End: 12-15-2022 Tobacco use panel [facility] Adult Depression Screening Assessment 3 [facility] Start: 09-29-2020 Gender identity Identifies as female gender (finding) [facility] Start: 09-29-2020 Sexual orientation Heterosexual (darnell putnam) [facility] NEGATED: Highlighted row - - [facility] Work Phone: Medical Equipment Procedure Code Equipment Code Equipment Origin al Text Equipment Identifier Dates Head V40 36mm +2 .5mm Offset Taper Biolox Delta Femoral Hip - [id number] Start: 11-06-2017 Screw [employer] Secur-Fit Torx 6.5mm Titanium 20mm Bone Sterile Acetabular - [id number] Start: 11-06-2017 Functional Status Date Assessment Result Facility NEGATED: Highlighted row Functional performance Functional status health issues are not documented Disease [facility] Work Phone: Mental Status Date Assessment Result Facility NEGATED: Highlighted row Cognitive function [Interpretation] Cognitive status health issues are not documented Disease [facility] Work Phone: Clinical Notes 11-06-2017 to 08-31-2023 Mike Angulo MD - 03/27/2023 4:13 PM EDTBMike toro MD - 03/27/2023 4:10 PM EDTTelephone Encounter - Lisandra Michael RN - 01/25/2023 10:06 AM PATTITTravis Frost MD - 11/10/2022 1:45 PM EDT Note Date & Type Note Facility 08-31-2023 Note HNO ID: [id number] Author: PERCY VARGAS LISW Service: ? Author Type: Worm Picker Type: Progress Notes Filed: 08/31/2023 14:57 Note Text: GENERAL PSYCHOLOGY Session #: 61 (session count starts after PSYL NEW EVAL visit) Visit Type:The patient consented to a virtual visit and their location was confirmed. SUBJECTIVE: I have communicated my name and active licensure. The patient's identity and physical location were verified at the time of this visit. Either the patient or their legal dental detail representative has been informed of the risks and benefits of -- and alternatives to -- treatment through a remote evaluation and consents to proceed with the evaluation remotely. PATIENT DATA: Generalized Anxiety Disorder Scale (JET-7) JET - 7 SCORES 07/27/2023 08/16/2023 08/29/2023 JET-7 Score 8 10 16 (0-4) minimal anxiety, (5-9) mild anxiety, (10-14) moderate anxiety, (15-21) severe anxiety Patient Health Questionnaire (PHQ-9) PHQ-9 07/27/2023 08/16/2023 08/29/2023 Score 11 13 10 (0-4) minimal depression, (5-9) mild depression, (10-14) moderate depression, (15-19) moderately severe depression, (20-27) severe depression OBJECTIVE: Cognitive behavioral therapy Mental Status Exam: General/Sensorium: Alert and AND interactive - Appearance: Appears well groomed and stated age - Eye Contact: Appropriate eye contact - Demeanor: Appropriately interactive - Motor Activity: Normal - Speech: Appropriate - Mood: Reports feeling depressed - Affect: Congruent with mood - Thought Process: Linear, logical, and goal-directed - Associations: Normal - Thought Content: Appropriate with no SI/HI/AVH - Perceptions: The patient does not appear internally stimulated - Cognition: Appears intact in regards to memory, attention/concentration, fund of knowledge and language skills - Insight: Good - Judgment: Good - ASSESSMENT: Patient worked on processing through her emotional symptoms along with addressing family related problems DIAGNOSIS: PRIMARY: 1: Major depression recurrent moderate Other: None PROVISIONAL: None TREATMENT MODALITIES: Cognitive Behavioral Therapy to self monitoring PROGRESS TO DATE: [employer] Progress: Progress Short Term Condition: Progress GOALS/OBJECTIVES/INTERVENTIONS : Patient's primary goal for treatment is to reduce her symptoms of depression Approximately 45 minutes were spent with the patient doing therapy. WILLOW Adamson [facility] 08-17-2023 Note HNO ID: [id number] Author: PERCY VARGAS LISW Service: ? Author Type: Worm Picker Type: Progress Notes Filed: 08/17/2023 16:24 Note Text: GENERAL PSYCHOLOGY Session #: 60 (session count starts after PSYL NEW EVAL visit) Visit Type:The patient consented to a virtual visit and their location was confirmed. SUBJECTIVE: I have communicated my name and active licensure. The patient's identity and physical location were verified at the time of this visit. Either the patient or their legal dental detail representative has been informed of the risks and benefits of -- and alternatives to -- treatment through a remote evaluation and consents to proceed with the evaluation remotely. PATIENT DATA: Generalized Anxiety Disorder Scale (JET-7) JET - 7 SCORES 07/16/2023 07/27/2023 08/16/2023 JET-7 Score 9 8 10 (0-4) minimal anxiety, (5-9) mild anxiety, (10-14) moderate anxiety, (15-21) severe anxiety Patient Health Questionnaire (PHQ-9) PHQ-9 07/16/2023 07/27/2023 08/16/2023 Score 14 11 13 (0-4) minimal depression, (5-9) mild depression, (10-14) moderate depression, (15-19) moderately severe depression, (20-27) severe depression OBJECTIVE: Cognitive behavioral therapy Mental Status Exam: General/Sensorium: Alert and AND interactive - Appearance: Appears well groomed and stated age - Eye Contact: Appropriate eye contact - Demeanor: Appropriately interactive - Motor Activity: Normal - Speech: Appropriate - Mood: Reports feeling depressed - Affect: Flat - Thought Process: Linear, logical, and goal-directed - Associations: Normal - Thought Content: Appropriate with no SI/HI/AVH - Perceptions: The patient does not appear internally stimulated - Cognition: Appears intact in regards to memory, attention/concentration, fund of knowledge and language skills - Insight: Good - Judgment: Good - ASSESSMENT: Patient worked on processing through her emotional symptoms along with addressing her concerns about an upcoming major surgery that she will be having at the end of the month. DIAGNOSIS: PRIMARY: 1: Major depression recurrent moderate Other: None PROVISIONAL: None TREATMENT MODALITIES: Cognitive Behavioral Therapy to self monitoring PROGRESS TO DATE: [employer] Progress: Progress Short Term Condition: Regressed GOALS/OBJECTIVES/INTERVENTIONS : Patient's primary goal for treatment is to reduce her symptoms of depression Approximately 45 minutes were spent with the patient doing therapy. WILLOW Adamson [facility] 07-27-2023 Note HNO ID: [id number] Author: Percy Vargas LISW Service: ? Author Type: Worm Picker Type: Progress Notes Filed: 07/27/2023 11:53 AM Note Text: GENERAL PSYCHOLOGY Session #: 59 (session count starts after PSYL NEW EVAL visit) Visit Type:The patient consented to a virtual visit and their location was confirmed. SUBJECTIVE: I have communicated my name and active licensure. The patient's identity and physical location were verified at the time of this visit. Either the patient or their legal dental detail representative has been informed of the risks and benefits of -- and alternatives to -- treatment through a remote evaluation and consents to proceed with the evaluation remotely. PATIENT DATA: Generalized Anxiety Disorder Scale (JET-7) JET - 7 SCORES 07/12/2023 07/16/2023 07/27/2023 JET-7 Score 9 9 8 (0-4) minimal anxiety, (5-9) mild anxiety, (10-14) moderate anxiety, (15-21) severe anxiety Patient Health Questionnaire (PHQ-9) PHQ-9 07/12/2023 07/16/2023 07/27/2023 Score 12 14 11 (0-4) minimal depression, (5-9) mild depression, (10-14) moderate depression, (15-19) moderately severe depression, (20-27) severe depression OBJECTIVE: Cognitive behavioral therapy Mental Status Exam: General/Sensorium: Alert and AND interactive - Appearance: Appears well groomed and stated age - Eye Contact: Appropriate eye contact - Demeanor: Appropriately interactive - Motor Activity: Normal - Speech: Appropriate - Mood: Reports feeling depressed - Affect: Flat - Thought Process: Linear, logical, and goal-directed - Associations: Normal - Thought Content: Appropriate with no SI/HI/AVH - Perceptions: The patient does not appear internally stimulated - Cognition: Appears intact in regards to memory, attention/concentration, fund of knowledge and language skills - Insight: Good - Judgment: Good - ASSESSMENT: Patient worked on processing through her emotional symptoms along with addressing family related problems DIAGNOSIS: PRIMARY: 1: Major depression recurrent moderate Other: None PROVISIONAL: None TREATMENT MODALITIES: Cognitive Behavioral Therapy to self monitoring PROGRESS TO DATE: [employer] Progress: Progress Short Term Condition: Progress GOALS/OBJECTIVES/INTERVENTIONS : Patient's primary goal for treatment is to reduce her symptoms of depression Approximately 45 minutes were spent with the patient doing therapy. WILLOW Adamson [facility] 07-18-2023 Note HNO ID: [id number] Author: Percy Vargas LISW Service: ? Author Type: Worm Picker Type: Progress Notes Filed: 07/18/2023 2:23 PM Note Text: GENERAL PSYCHOLOGY Session #: 58 (session count starts after PSYL NEW EVAL visit) Visit Type:The patient consented to a virtual visit and their location was confirmed. SUBJECTIVE: I have communicated my name and active licensure. The patient's identity and physical location were verified at the time of this visit. Either the patient or their legal dental detail representative has been informed of the risks and benefits of -- and alternatives to -- treatment through a remote evaluation and consents to proceed with the evaluation remotely. PATIENT DATA: Generalized Anxiety Disorder Scale (JET-7) JET - 7 SCORES 06/28/2023 07/12/2023 07/16/2023 JET-7 Score 8 9 9 (0-4) minimal anxiety, (5-9) mild anxiety, (10-14) moderate anxiety, (15-21) severe anxiety Patient Health Questionnaire (PHQ-9) PHQ-9 06/28/2023 07/12/2023 07/16/2023 Score 11 12 14 (0-4) minimal depression, (5-9) mild depression, (10-14) moderate depression, (15-19) moderately severe depression, (20-27) severe depression OBJECTIVE: Cognitive behavioral therapy Mental Status Exam: General/Sensorium: Alert and AND interactive - Appearance: Appears well groomed and stated age - Eye Contact: Appropriate eye contact - Demeanor: Appropriately interactive - Motor Activity: Normal - Speech: Appropriate - Mood: Reports feeling depressed - Affect: Flat - Thought Process: Linear, logical, and goal-directed - Associations: Normal - Thought Content: Appropriate with no SI/HI/AVH - Perceptions: The patient does not appear internally stimulated - Cognition: Appears intact in regards to memory, attention/concentration, fund of knowledge and language skills - Insight: Good - Judgment: Good - ASSESSMENT: Patient worked on processing through her emotional symptoms along with addressing family related problems DIAGNOSIS: PRIMARY: 1: Major depression recurrent moderate Other: None PROVISIONAL: None TREATMENT MODALITIES: Cognitive Behavioral Therapy to self monitoring PROGRESS TO DATE: [facility] Progress: Progress Short Term Condition: Regressed GOALS/OBJECTIVES/INTERVENTIONS : Patient's primary goal for treatment is to reduce her symptoms of depression Approximately 45 minutes were spent with the patient doing therapy. WILLOW Adamson [facility] 07-13-2023 Note HNO ID: [id number] Author: Percy Vargas LISW Service: ? Author Type: Worm Picker Type: Progress Notes Filed: 07/13/2023 10:33 AM Note Text: Patient had to cancel appointment due to illness and is rescheduled for next week-no charge [facility] 06-29-2023 Note HNO ID: [id number] Author: Percy Vargas LISW Service: ? Author Type: Worm Picker Type: Progress Notes Filed: 06/29/2023 3:15 PM Note Text: GENERAL PSYCHOLOGY Session #: 57 (session count starts after PSYL NEW EVAL visit) Visit Type:The patient consented to a virtual visit and their location was confirmed. SUBJECTIVE: I have communicated my name and active licensure. The patient's identity and physical location were verified at the time of this visit. Either the patient or their legal dental detail representative has been informed of the risks and benefits of -- and alternatives to -- treatment through a remote evaluation and consents to proceed with the evaluation remotely. PATIENT DATA: Generalized Anxiety Disorder Scale (JET-7) JET - 7 SCORES 05/29/2023 06/12/2023 06/28/2023 JET-7 Score 8 8 8 (0-4) minimal anxiety, (5-9) mild anxiety, (10-14) moderate anxiety, (15-21) severe anxiety Patient Health Questionnaire (PHQ-9) PHQ-9 05/29/2023 06/12/2023 06/28/2023 Score 10 11 11 (0-4) minimal depression, (5-9) mild depression, (10-14) moderate depression, (15-19) moderately severe depression, (20-27) severe depression OBJECTIVE: Cognitive behavioral therapy Mental Status Exam: General/Sensorium: Alert and AND interactive - Appearance: Appears well groomed and stated age - Eye Contact: Appropriate eye contact - Demeanor: Appropriately interactive - Motor Activity: Normal - Speech: Appropriate - Mood: Reports feeling depressed - Affect: Flat - Thought Process: Linear, logical, and goal-directed - Associations: Normal - Thought Content: Appropriate with no SI/HI/AVH - Perceptions: The patient does not appear internally stimulated - Cognition: Appears intact in regards to memory, attention/concentration, fund of knowledge and language skills - Insight: Good - Judgment: Good - ASSESSMENT: Patient worked on processing through her emotional symptoms along with addressing a family related problem DIAGNOSIS: PRIMARY: 1: Major depression recurrent moderate Other: None PROVISIONAL: None TREATMENT MODALITIES: Cognitive Behavioral Therapy to self monitoring PROGRESS TO DATE: [employer] Progress: Progress Short Term Condition: Progress GOALS/OBJECTIVES/INTERVENTIONS : Patient's primary goal for treatment is to reduce her symptoms of depression and anxiety Approximately 45 minutes were spent with the patient doing therapy. WILLOW Adamson [facility] 06-15-2023 Note HNO ID: [id number] Author: Percy Vargas LISW Service: ? Author Type: Worm Picker Type: Progress Notes Filed: 06/15/2023 1:52 PM Note Text: GENERAL PSYCHOLOGY Session #: 56 (session count starts after PSYL NEW EVAL visit) Visit Type:The patient consented to a virtual visit and their location was confirmed. SUBJECTIVE: I have communicated my name and active licensure. The patient's identity and physical location were verified at the time of this visit. Either the patient or their legal dental detail representative has been informed of the risks and benefits of -- and alternatives to -- treatment through a remote evaluation and consents to proceed with the evaluation remotely. PATIENT DATA: Generalized Anxiety Disorder Scale (JET-7) JET - 7 SCORES 05/10/2023 05/29/2023 06/12/2023 JET-7 Score 9 8 8 (0-4) minimal anxiety, (5-9) mild anxiety, (10-14) moderate anxiety, (15-21) severe anxiety Patient Health Questionnaire (PHQ-9) PHQ-9 05/10/2023 05/29/2023 06/12/2023 Score 11 10 11 (0-4) minimal depression, (5-9) mild depression, (10-14) moderate depression, (15-19) moderately severe depression, (20-27) severe depression OBJECTIVE: Cognitive behavioral therapy Mental Status Exam: General/Sensorium: Alert and AND interactive - Appearance: Appears well groomed and stated age - Eye Contact: Appropriate eye contact - Demeanor: Appropriately interactive - Motor Activity: Normal - Speech: Appropriate - Mood: Reports feeling depressed - Affect: Flat - Thought Process: Linear, logical, and goal-directed - Associations: Normal - Thought Content: Appropriate with no SI/HI/AVH - Perceptions: The patient does not appear internally stimulated - Cognition: Appears intact in regards to memory, attention/concentration, fund of knowledge and language skills - Insight: Good - Judgment: Good - ASSESSMENT: Patient worked on processing through her emotional symptoms along with addressing family related problems DIAGNOSIS: PRIMARY: 1: Major depression recurrent moderate Other: None PROVISIONAL: None TREATMENT MODALITIES: Cognitive Behavioral Therapy to self monitoring PROGRESS TO DATE: [employer] Progress: Progress Short Term Condition: Progress GOALS/OBJECTIVES/INTERVENTIONS : Patient's primary goal for treatment is to reduce her symptoms of depression Approximately 45 minutes were spent with the patient doing therapy. WILLOW Adamson [facility] 06-01-2023 Note HNO ID: [id number] Author: Percy Vargas LISW Service: ? Author Type: Worm Picker Type: Progress Notes Filed: 06/01/2023 4:05 PM Note Text: GENERAL PSYCHOLOGY Session #: 55 (session count starts after PSYL NEW EVAL visit) Visit Type:The patient consented to a virtual visit and their location was confirmed. SUBJECTIVE: I have communicated my name and active licensure. The patient's identity and physical location were verified at the time of this visit. Either the patient or their legal dental detail representative has been informed of the risks and benefits of -- and alternatives to -- treatment through a remote evaluation and consents to proceed with the evaluation remotely. PATIENT DATA: Generalized Anxiety Disorder Scale (JET-7) JET - 7 SCORES 04/24/2023 05/10/2023 05/29/2023 JET-7 Score 9 9 8 (0-4) minimal anxiety, (5-9) mild anxiety, (10-14) moderate anxiety, (15-21) severe anxiety Patient Health Questionnaire (PHQ-9) PHQ-9 04/24/2023 05/10/2023 05/29/2023 Score 11 11 10 (0-4) minimal depression, (5-9) mild depression, (10-14) moderate depression, (15-19) moderately severe depression, (20-27) severe depression OBJECTIVE: Cognitive behavioral therapy Mental Status Exam: General/Sensorium: Alert and AND interactive - Appearance: Appears well groomed and stated age - Eye Contact: Appropriate eye contact - Demeanor: Appropriately interactive - Motor Activity: Normal - Speech: Appropriate - Mood: Reports feeling depressed - Affect: Flat and Sad/tearful - Thought Process: Linear, logical, and goal-directed - Associations: Normal - Thought Content: Appropriate with no SI/HI/AVH - Perceptions: The patient does not appear internally stimulated - Cognition: Appears intact in regards to memory, attention/concentration, fund of knowledge and language skills - Insight: Good - Judgment: Good - ASSESSMENT: Patient worked on processing through her emotional symptoms along with addressing a family related problem DIAGNOSIS: PRIMARY: 1: Major depression recurrent moderate Other: None PROVISIONAL: None TREATMENT MODALITIES: Cognitive Behavioral Therapy to self monitoring PROGRESS TO DATE: [facility] Progress: Progress Short Term Condition: Progress GOALS/OBJECTIVES/INTERVENTIONS : Patient's primary goal for treatment is to reduce her symptoms of depression Approximately 45 minutes were spent with the patient doing therapy. WILLOW Adamson [facility] 05-11-2023 Note HNO ID: [id number] Author: Percy Vargas LISW Service: ? Author Type: Worm Picker Type: Progress Notes Filed: 05/11/2023 11:33 AM Note Text: GENERAL PSYCHOLOGY Session #: 54 (session count starts after PSYL NEW EVAL visit) Visit Type:The patient consented to a virtual visit and their location was confirmed. SUBJECTIVE: I have communicated my name and active licensure. The patient's identity and physical location were verified at the time of this visit. Either the patient or their legal dental detail representative has been informed of the risks and benefits of -- and alternatives to -- treatment through a remote evaluation and consents to proceed with the evaluation remotely. PATIENT DATA: Generalized Anxiety Disorder Scale (JET-7) JET - 7 SCORES 04/09/2023 04/24/2023 05/10/2023 JET-7 Score 7 9 9 (0-4) minimal anxiety, (5-9) mild anxiety, (10-14) moderate anxiety, (15-21) severe anxiety Patient Health Questionnaire (PHQ-9) PHQ-9 04/09/2023 04/24/2023 05/10/2023 Score 10 11 11 (0-4) minimal depression, (5-9) mild depression, (10-14) moderate depression, (15-19) moderately severe depression, (20-27) severe depression OBJECTIVE: Cognitive behavioral therapy Mental Status Exam: General/Sensorium: Alert and AND interactive - Appearance: Appears well groomed and stated age - Eye Contact: Appropriate eye contact - Demeanor: Appropriately interactive - Motor Activity: Normal - Speech: Appropriate - Mood: Reports feeling depressed - Affect: Flat and Sad/tearful - Thought Process: Linear, logical, and goal-directed - Associations: Normal - Thought Content: Appropriate with no SI/HI/AVH - Perceptions: The patient does not appear internally stimulated - Cognition: Appears intact in regards to memory, attention/concentration, fund of knowledge and language skills - Insight: Good - Judgment: Good - ASSESSMENT: Patient worked on processing through her emotional symptoms along with addressing family related problems DIAGNOSIS: PRIMARY: 1: Major depression recurrent moderate Other: None PROVISIONAL: None TREATMENT MODALITIES: Cognitive Behavioral Therapy to self monitoring PROGRESS TO DATE: [employer] Progress: Progress Short Term Condition: Progress GOALS/OBJECTIVES/INTERVENTIONS : Patient's primary goal for treatment is to reduce her symptoms of depression Approximately 45 minutes were spent with the patient doing therapy. WILLOW Adamson [facility] 04-27-2023 Note HNO ID: [id number] Author: Percy Vargas LISW Service: ? Author Type: Worm Picker Type: Progress Notes Filed: 04/27/2023 2:02 PM Note Text: GENERAL PSYCHOLOGY Session #: 53 (session count starts after PSYL NEW EVAL visit) Visit Type:The patient consented to a virtual visit and their location was confirmed. SUBJECTIVE: I have communicated my name and active licensure. The patient's identity and physical location were verified at the time of this visit. Either the patient or their legal dental detail representative has been informed of the risks and benefits of -- and alternatives to -- treatment through a remote evaluation and consents to proceed with the evaluation remotely. PATIENT DATA: Generalized Anxiety Disorder Scale (JET-7) JET - 7 SCORES 03/14/2023 04/09/2023 04/24/2023 JET-7 Score 8 7 9 (0-4) minimal anxiety, (5-9) mild anxiety, (10-14) moderate anxiety, (15-21) severe anxiety Patient Health Questionnaire (PHQ-9) PHQ-9 03/14/2023 04/09/2023 04/24/2023 Score 12 10 11 (0-4) minimal depression, (5-9) mild depression, (10-14) moderate depression, (15-19) moderately severe depression, (20-27) severe depression OBJECTIVE: Cognitive behavioral therapy Mental Status Exam: General/Sensorium: Alert and AND interactive - Appearance: Appears well groomed and stated age - Eye Contact: Appropriate eye contact - Demeanor: Appropriately interactive - Motor Activity: Normal - Speech: Appropriate - Mood: Reports feeling depressed - Affect: Flat and Sad/tearful - Thought Process: Linear, logical, and goal-directed - Associations: Normal - Thought Content: Appropriate with no SI/HI/AVH - Perceptions: The patient does not appear internally stimulated - Cognition: Appears intact in regards to memory, attention/concentration, fund of knowledge and language skills - Insight: Good - Judgment: Good - ASSESSMENT: Patient worked on processing through her emotional symptoms along with addressing a family related problem DIAGNOSIS: PRIMARY: 1: Major depression recurrent moderate Other: None PROVISIONAL: None TREATMENT MODALITIES: Cognitive Behavioral Therapy to self monitoring PROGRESS TO DATE: [facility] Progress: Progress Short Term Condition: Progress GOALS/OBJECTIVES/INTERVENTIONS : Patient's primary goal for treatment is to reduce her symptoms of depression Approximately 45 minutes were spent with the patient doing therapy. WILLOW Adamson [facility] 04-17-2023 Note HNO ID: [id number] Author: Percy Vargas LISW Service: ? Author Type: Worm Picker Type: Progress Notes Filed: 04/17/2023 2:36 PM Note Text: GENERAL PSYCHOLOGY Session #: 52 (session count starts after PSYL NEW EVAL visit) Visit Type:The patient consented to a virtual visit and their location was confirmed. SUBJECTIVE: I have communicated my name and active licensure. The patient's identity and physical location were verified at the time of this visit. Either the patient or their legal dental detail representative has been informed of the risks and benefits of -- and alternatives to -- treatment through a remote evaluation and consents to proceed with the evaluation remotely. PATIENT DATA: Generalized Anxiety Disorder Scale (JET-7) JET - 7 SCORES 03/06/2023 03/14/2023 04/09/2023 JET-7 Score 7 8 7 (0-4) minimal anxiety, (5-9) mild anxiety, (10-14) moderate anxiety, (15-21) severe anxiety Patient Health Questionnaire (PHQ-9) PHQ-9 03/06/2023 03/14/2023 04/09/2023 Score 10 12 10 (0-4) minimal depression, (5-9) mild depression, (10-14) moderate depression, (15-19) moderately severe depression, (20-27) severe depression OBJECTIVE: Cognitive behavioral therapy Mental Status Exam: General/Sensorium: Alert and AND interactive - Appearance: Appears well groomed and stated age - Eye Contact: Appropriate eye contact - Demeanor: Appropriately interactive - Motor Activity: Normal - Speech: Appropriate - Mood: Reports feeling depressed - Affect: Flat and Sad/tearful - Thought Process: Linear, logical, and goal-directed - Associations: Normal - Thought Content: Appropriate with no SI/HI/AVH - Perceptions: The patient does not appear internally stimulated - Cognition: Appears intact in regards to memory, attention/concentration, fund of knowledge and language skills - Insight: Good - Judgment: Good - ASSESSMENT: Patient worked on processing through her emotional symptoms along with addressing family related problems DIAGNOSIS: PRIMARY: 1: Major depression recurrent moderate Other: None PROVISIONAL: None TREATMENT MODALITIES: Cognitive Behavioral Therapy to self monitoring PROGRESS TO DATE: [facility] Progress: Progress Short Term Condition: Regressed GOALS/OBJECTIVES/INTERVENTIONS : Patient's primary goal for treatment is to reduce her symptoms of depression Approximately 45 minutes were spent with the patient doing therapy. WILLOW Adamson [facility] 03-27-2023 Note HNO ID: [id number] Author: Mike Angulo MD Service: ? Author Type: Physician Type: Progress Notes Filed: 03/27/2023 11:26 PM Note Text: VESTIBULAR MIGRIANEThis note was created using NoteWriter. Subjective Bruno Casanova is a 52 year old female with chronic vestibular migraine, which used to be daily But now less frequent and less intense, in addition that vertigo resolved That was the most annoying symptom for her. Not getting the daily headache Used to be more frequent Now is 14 headaches instead of daily Now headaches only without the vertigo Previosuly the vertigo came with headache For the first time in her life she did not fall because she did not have the vertigo for the whole year She is pleased with the Lamictal treatment, specially that her vertigo resolved She still have frequent headache, but new medications will be added To get less frequent and less intense headache episodes Review of Systems Objective BP 121/73 (BP Site: Right Arm, BP Position: Sitting, BP Cuff Size: Large Adult) Pulse 86 Ht 165.1 cm (5' 5 ) Wt 102.9 kg (226 lb 14.4 oz) LMP 09/27/2022 (Approximate) SpO2 94% BMI 37.76 kg/m? Physical Exam Assessment and Plan 52 years old women with headache Headache management Acute and preventive headache No orders found for this visit on 03/27/23. 1-Maintain regular sleep schedule. 2-Limit over the counter medications and prescription rescue meds to 2 days per week or less 3-Maintain headache diary. 4-Limit caffeine to 1-2, 8 oz cups per day or less (300 mg) 5-Limit diet sodas to12 oz or less per day. Avoid other sources of nutrasweet. 6-Avoid dietary triggers. (list given to pt) 7-Eat regular, frequent meals. 8- Keep hydrated. Drink at least 6-8, 8 oz glasses of water/d [facility] 03-27-2023 Note HNO ID: [id number] Author: Mike Angulo MD Service: ? Author Type: Physician Type: Progress Notes Filed: 03/27/2023 11:26 PM Note Text: Interval history Headache Bruno Casanova is a 51 year old female seen for migraine and dizziness She is seeing ENT For meniere disease but referred her to control her migriane As she is having daily headaches Headaches are right temporal throbbing pain,with nausea Dizziness with vertigo Goes to sleep in a dark quiet room Sometimes passing out when she has severe migriane ,no LOC But hard to wake up No previous seizure or family With the migriane she sees floaters and stars black white Or things can be moving ,she has scalp tenderness with headache She takes topamax and gabapentin She previously went to dr pool and tried many headache medications and infusion Saw other neurologists. Headache for 13 years ,after head trauma with LOC few minutes . She started crying when she was talking about the accident but was much happier few minutes earlier She is taking effexor and followed by psychiatrist ,for depression and mood disorder No headache free days ,tried many migriane medications excedrin migraine takes the edge only Chronic daily neck pain Physical therapy and vestibular therapy done many times HISTORY REVIEWED (electronic chart updated): PAST MEDICAL HISTORY Diagnosis Date Bulging lumbar disc and cervical DDD (degenerative disc disease), cervical Hypertension Meniere disease Migraines Non-functioning tympanostomy tube 04/21/2013 Otalgia of right ear 04/21/2013 Perforation of right tympanic membrane 07/07/2013 Rhinitis 04/21/2013 Sinusitis 04/21/2013 PAST SURGICAL HISTORY Procedure Laterality Date COLONOSCOPY 11/10/2022 repeat in 10 years NONE S SPINAL CORD STIMULATOR, back and neck TOTAL HIP REPLACEMENT Left FAMILY HISTORY Problem Relation Age of Onset Asthma Mother Hypertension Mother Heart disease Mother Diabetes Father Cancer Father Colon Heart disease Brother Social History Tobacco Use Smoking status: Former Packs/day: 0.75 Years: 25.00 Additional pack years: 0.00 Total pack years: 18.75 Types: Cigarettes Quit date: 2021 Years since quittin.6 Smokeless tobacco: Never Tobacco comments: currently 1 pack every 3 days; patient cutting back for surgery - not ready to quit Vaping Use Vaping Use: current everyday user Substance Use Topics 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 rosuvastatin (CRESTOR) 5 mg tablet Take 10 mg by mouth once daily. methylPREDNISolone (MEDROL, NANCIE,) 4 mg Dose-Pack Take 1 tablet by mouth as directed. As Instructed per package (Patient not taking: No sig reported) dexAMETHasone 0.1 % ophthalmic solution 3 drops 3 times a day to affected ear as needed vertigo triamterene-hydroCHLOROthiazid e (MAXZIDE-25) 37.5-25 mg per tablet Take 1 tablet by mouth once daily. celecoxib (CELEBREX) 200 mg capsule Take 200 mg by mouth once daily. drospirenone-e.estradiol-lm.FA (BEYAZ) 3-0.02-0.451 mg (24) (4) tab Take 1 tablet by mouth once daily. (Patient not taking: No sig reported) BIOFLAVONOID, LEMON, BULK, MISC (Patient not taking: No sig reported) ascorbic acid (BUFFERED VITAMIN C ORAL) Take by mouth. (Patient not taking: No sig reported) methylsulfonylmethane (MSM ORAL) Take 1,000 mg by mouth. (Patient not taking: No sig reported) Lysine 500 mg tab Take by mouth. niacin (NIACIN) 100 mg tablet Take 100 mg by mouth daily with breakfast. hyalur ac/chond sul/colg II/AA (HYALURONIC ACID, CHOND-COLLGN, ORAL) Take 50 mg by mouth. venlafaxine (EFFEXOR) 37.5 mg tablet Take 37.5 mg by mouth twice daily. aMILoride (MIDAMOR) 5 mg tablet 5 mg once daily. acetaminophen (TYLENOL) 325 mg tablet Take 2 tablets by mouth every 4 hours as needed for Pain (post op total joint pain). senna-docusate (SENOKOT-S) 8.6-50 mg per tablet Take 2 tablets by mouth twice daily. potassium chloride ER (K-DUR, KLOR-CON) 20 mEq tablet Take 1 tablet by mouth twice daily. (Patient taking differently: Take 20 mEq by mouth three times daily.) melatonin 10 mg tab Take 10 mg by mouth as needed. magnesium oxide 400 mg cap Take 1 capsule by mouth once daily. Twice a week (Patient not taking: No sig reported) ondansetron orally disintegrating (ZOFRAN ODT) 4 mg disintegrating tablet Take 1 tablet by mouth every 8 hours as needed for Nausea/Vomiting. meclizine (ANTIVERT) 12.5 mg tab as needed. Omeprazole 40 mg capsule Take by mouth once daily. cetirizine-pseudoephedrine (ZYRTEC-D) 5-120 mg per tablet Take 1 tablet by mouth. cholecalciferol (VITAMIN D3) 1,000 unit tab tablet Take 5,000 Units by mouth once daily. (Patient not taking: No sig reported) Ascorbic Acid 1,000 mg tablet Take 1,000 mg by mouth once (more content not included)... [facility] 03-27-2023 History of Presen t illness Narrative VESTIBULAR MIGRIANEThis note was created using NoteWriter. Subjective Bruno Casanova is a 52 year old female with chronic vestibular migraine, which used to be daily But now less frequent and less intense, in addition that vertigo resolved That was the most annoying symptom for her. Not getting the daily headache Used to be more frequent Now is 14 headaches instead of daily Now headaches only without the vertigo Previosuly the vertigo came with headache For the first time in her life she did not fall because she did not have the vertigo for the whole year She is pleased with the Lamictal treatment, specially that her vertigo resolved She still have frequent headache, but new medications will be added To get less frequent and less intense headache episodes Review of Systems Objective BP 121/73 (BP Site: Right Arm, BP Position: Sitting, BP Cuff Size: Large Adult) Pulse 86 Ht 165.1 cm (5' 5 ) Wt 102.9 kg (226 lb 14.4 oz) LMP 09/27/2022 (Approximate) SpO2 94% BMI 37.76 kg/m Physical Exam Assessment and Plan 52 years old women with headache Headache management Acute and preventive headache No orders found for this visit on 03/27/23. 1-Maintain regular sleep schedule. 2-Limit over the counter medications and prescription rescue meds to 2 days per week or less 3-Maintain headache diary. 4-Limit caffeine to 1-2, 8 oz cups per day or less (300 mg) 5-Limit diet sodas to12 oz or less per day. Avoid other sources of nutrasweet. 6-Avoid dietary triggers. (list given to pt) 7-Eat regular, frequent meals. 8- Keep hydrated. Drink at least 6-8, 8 oz glasses of water/d Interval history Headache Bruno Casanova is a 51 year old female seen for migraine and dizziness She is seeing ENT For meniere disease but referred her to control her migriane As she is having daily headaches Headaches are right temporal throbbing pain,with nausea Dizziness with vertigo Goes to sleep in a dark quiet room Sometimes passing out when she has severe migriane ,no LOC But hard to wake up No previous seizure or family With the migriane she sees floaters and stars black white Or things can be moving ,she has scalp tenderness with headache She takes topamax and gabapentin She previously went to dr pool and tried many headache medications and infusion Saw other neurologists. Headache for 13 years ,after head trauma with LOC few minutes . She started crying when she was talking about the accident but was much happier few minutes earlier She is taking effexor and followed by psychiatrist ,for depression and mood disorder No headache free days ,tried many migriane medications excedrin migraine takes the edge only Chronic daily neck pain Physical therapy and vestibular therapy done many times HISTORY REVIEWED (electronic chart updated): PAST MEDICAL HISTORY Diagnosis Date Bulging lumbar disc and cervical DDD (degenerative disc disease), cervical Hypertension Meniere disease Migraines Non-functioning tympanostomy tube 04/21/2013 Otalgia of right ear 04/21/2013 Perforation of right tympanic membrane 07/07/2013 Rhinitis 04/21/2013 Sinusitis 04/21/2013 PAST SURGICAL HISTORY Procedure Laterality Date COLONOSCOPY 11/10/2022 repeat in 10 years NONE S SPINAL CORD STIMULATOR, back and neck TOTAL HIP REPLACEMENT Left FAMILY HISTORY Problem Relation Age of Onset Asthma Mother Hypertension Mother Heart disease Mother Diabetes Father Cancer Father Colon Heart disease Brother Social History Tobacco Use Smoking status: Former Packs/day: 0.75 Years: 25.00 Additional pack years: 0.00 Total pack years: 18.75 Types: Cigarettes Quit date: 2021 Years since quittin.6 Smokeless tobacco: Never Tobacco comments: currently 1 pack every 3 days; patient cutting back for surgery - not ready to quit Vaping Use Vaping Use: current everyday user Substance Use Topics 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 rosuvastatin (CRESTOR) 5 mg tablet Take 10 mg by mouth once daily. methylPREDNISolone (MEDROL, NANCIE,) 4 mg Dose-Pack Take 1 tablet by mouth as directed. As Instructed per package (Patient not taking: No sig reported) dexAMETHasone 0.1 % ophthalmic solution 3 drops 3 times a day to affected ear as needed vertigo triamterene-hydroCHLOROthiazid e (MAXZIDE-25) 37.5-25 mg per tablet Take 1 tablet by mouth once daily. celecoxib (CELEBREX) 200 mg capsule Take 200 mg by mouth once daily. drospirenone-e.estradiol-lm.FA (BEYAZ) 3-0.02-0.451 mg (24) (4) tab Take 1 tablet by mouth once daily. (Patient not taking: No sig reported) BIOFLAVONOID, LEMON, BULK, MISC (Patient not taking: No sig reported) ascorbic acid (BUFFERED VITAMIN C ORAL) Take by mouth. (Patient not taking: No sig reported) methylsulfonylmethane (MSM ORAL) Take 1,000 mg by mouth. (Patient not taking: No sig reported) Lysine 500 mg tab Take by mouth. niacin (NIACIN) 100 mg tablet Take 100 mg by mouth daily with breakfast. hyalur ac/chond sul/colg II/AA (HYALURONIC ACID, CHOND-COLLGN, ORAL) Take 50 mg by mouth. venlafaxine (EFFEXOR) 37.5 mg tablet Take 37.5 mg by mouth twice daily. aMILoride (MIDAMOR) 5 mg tablet 5 mg once daily. acetaminophen (TYLENOL) 325 mg tablet Take 2 tablets by mouth every 4 hours as needed for Pain (post op total joint pain). senna-docusate (SENOKOT-S) 8.6-50 mg per tablet Take 2 tablets by mouth twice daily. potassium chloride ER (K-DUR, KLOR-CON) 20 mEq tablet Take 1 tablet by mouth twice daily. (Patient taking differently: Take 20 mEq by mouth three times daily.) melatonin 10 mg tab Take 10 mg by mouth as needed. magnesium oxide 400 mg cap Take 1 capsule by mouth once daily. Twice a week (Patient not taking: No sig reported) ondansetron orally disintegrating (ZOFRAN ODT) 4 mg disintegrating tablet Take 1 tablet by mouth every 8 hours as needed for Nausea/Vomiting. meclizine (ANTIVERT) 12.5 mg tab as needed. Omeprazole 40 mg capsule Take by mouth once daily. cetirizine-pseudoephedrine (ZYRTEC-D) 5-120 mg per tablet Take 1 tablet by mouth. cholecalciferol (VITAMIN D3) 1,000 unit tab tablet Take 5,000 Units by mouth once daily. (Patient not taking: No sig reported) Ascorbic Acid 1,000 mg tablet Take 1,000 mg by mouth once daily. (Patient not taking: No sig reported) NORETHINDRONE, CONTRACEPTIVE, ORAL Take 0.35 mg by mouth. Levothyroxine 75 mcg cap Take 75 mcg by mouth once daily. MULTIVITAMIN TAB Take one(1) tablet daily. (Patient not taking: No sig reported) No current facility-administered medications for this visit. ALLERGIES Allergen Reactions Cymbalta [Duloxetin* Other: See Comments Weight gain Lactose GI Upset Penicillins Hives Shellfish Derived Vomiting REVIEW OF SYSTEMS: PHYSICAL EXAMINATION: MENTAL STATUS: Alert, oriented to person, place and time and Follows commands CRANIAL NERVES: EOM's intact, Visual king intact to confrontation, Extraocular movements intact, and Facial sensation intact MOTOR: No drift MOTOR STRENGTH: Upper and lower extremity 5/5 bilaterally REFLEXES: UE and LE reflexes are equal and reactive SENSATION: Intact light touch COORDINATION: Finger-to- nose-finger intact bilaterally GAIT: Normal-based ASSESSMENT: No diagnosis found. Vestibular migraine and intractable headache Post traumatic headache Chronic daily headache PLAN: No orders found for this visit on 03/27/23. Lamictal 25 mg for vestibular migraine Follow up visit after trial of lamictal There are no Patient Instructions on file for this visit. I spent a total of 60 minutes on the date of the service which included [id number] patient care, completing clinical documentation, obtaining and/or reviewing separately obtained history, performing a medically appropriate examination, counseling and educating the patient/family/caregiver, and ordering medications, tests, or procedures Mike Angulo MD documented in this encounter [facility] 03-16-2023 Note HNO ID: [id number] Author: Percy Vargas LISW Service: ? Author Type: Worm Picker Type: Progress Notes Filed: 03/16/2023 3:55 PM Note Text: GENERAL PSYCHOLOGY Session #: 51 (session count starts after PSYL NEW EVAL visit) Visit Type:The patient consented to a virtual visit and their location was confirmed. SUBJECTIVE: I have communicated my name and active licensure. The patient's identity and physical location were verified at the time of this visit. Either the patient or their legal dental detail representative has been informed of the risks and benefits of -- and alternatives to -- treatment through a remote evaluation and consents to proceed with the evaluation remotely. PATIENT DATA: Generalized Anxiety Disorder Scale (JET-7) JET - 7 SCORES 02/22/2023 03/06/2023 03/14/2023 JET-7 Score 11 7 8 (0-4) minimal anxiety, (5-9) mild anxiety, (10-14) moderate anxiety, (15-21) severe anxiety Patient Health Questionnaire (PHQ-9) PHQ-9 02/22/2023 03/06/2023 03/14/2023 Score 13 10 12 (0-4) minimal depression, (5-9) mild depression, (10-14) moderate depression, (15-19) moderately severe depression, (20-27) severe depression OBJECTIVE: Cognitive behavioral therapy Mental Status Exam: General/Sensorium: Alert and AND interactive - Appearance: Appears well groomed and stated age - Eye Contact: Appropriate eye contact - Demeanor: Appropriately interactive - Motor Activity: Normal - Speech: Appropriate - Mood: Reports feeling depressed - Affect: Flat and Sad/tearful - Thought Process: Linear, logical, and goal-directed - Associations: Normal - Thought Content: Appropriate with no SI/HI/AVH - Perceptions: The patient does not appear internally stimulated - Cognition: Appears intact in regards to memory, attention/concentration, fund of knowledge and language skills - Insight: Good - Judgment: Good - ASSESSMENT: Patient worked on processing through her emotional symptoms along with addressing some family related problems DIAGNOSIS: PRIMARY: 1: Major depression recurrent moderate Other: None PROVISIONAL: None TREATMENT MODALITIES: Cognitive Behavioral Therapy to self monitoring PROGRESS TO DATE: [employer] Progress: Progress Short Term Condition: Regressed GOALS/OBJECTIVES/INTERVENTIONS : Patient's primary goal for treatment is to reduce her symptoms of depression Approximately 45 minutes were spent with the patient doing therapy. WILLOW Adamson [facility] 03-09-2023 Note HNO ID: [id number] Author: Percy Vargas LISW Service: ? Author Type: Worm Picker Type: Progress Notes Filed: 03/09/2023 8:03 AM Note Text: Appointment cancelled-no charge [facility] 02-23-2023 Note HNO ID: [id number] Author: ZACHARY Adamson Service: ? Author Type: Worm Picker Type: Progress Notes Filed: 02/23/2023 2:59 PM Note Text: GENERAL PSYCHOLOGY Session #: 50 (session count starts after PSYL NEW EVAL visit) Visit Type:The patient consented to a virtual visit and their location was confirmed. SUBJECTIVE: I have communicated my name and active licensure. The patient's identity and physical location were verified at the time of this visit. Either the patient or their legal dental detail representative has been informed of the risks and benefits of -- and alternatives to -- treatment through a remote evaluation and consents to proceed with the evaluation remotely. PATIENT DATA: Generalized Anxiety Disorder Scale (JET-7) JET - 7 SCORES 01/16/2023 01/31/2023 02/22/2023 JET-7 Score 10 6 11 (0-4) minimal anxiety, (5-9) mild anxiety, (10-14) moderate anxiety, (15-21) severe anxiety Patient Health Questionnaire (PHQ-9) PHQ-9 01/16/2023 01/31/2023 02/22/2023 Score 10 12 13 (0-4) minimal depression, (5-9) mild depression, (10-14) moderate depression, (15-19) moderately severe depression, (20-27) severe depression OBJECTIVE: Cognitive behavioral therapy Mental Status Exam: General/Sensorium: Alert and AND interactive - Appearance: Appears well groomed and stated age - Eye Contact: Appropriate eye contact - Demeanor: Appropriately interactive - Motor Activity: Normal - Speech: Appropriate - Mood: Reports feeling depressed - Affect: Flat and Sad/tearful - Thought Process: Linear, logical, and goal-directed - Associations: Normal - Thought Content: Appropriate with no SI/HI/AVH - Perceptions: The patient does not appear internally stimulated - Cognition: Appears intact in regards to memory, attention/concentration, fund of knowledge and language skills - Insight: Good - Judgment: Good - ASSESSMENT: Patient worked on processing through her emotional symptoms along with addressing chronic pain issues and the negative impact on her emotionally DIAGNOSIS: PRIMARY: 1: Major depression recurrent moderate Other: None PROVISIONAL: None TREATMENT MODALITIES: Cognitive Behavioral Therapy to self monitoring PROGRESS TO DATE: [facility] Progress: Progress Short Term Condition: Regressed GOALS/OBJECTIVES/INTERVENTIONS : Patient's primary goal for treatment is to reduce her symptoms of depression Approximately 45 minutes were spent with the patient doing therapy. WILLOW Adamson [facility] 02-02-2023 Note HNO ID: [id number] Author: ZACHARY Adamson Service: ? Author Type: Worm Picker Type: Progress Notes Filed: 02/02/2023 3:49 PM Note Text: GENERAL PSYCHOLOGY Session #: 49 (session count starts after PSYL NEW EVAL visit) Visit Type:The patient consented to a virtual visit and their location was confirmed. SUBJECTIVE: I have communicated my name and active licensure. The patient's identity and physical location were verified at the time of this visit. Either the patient or their legal dental detail representative has been informed of the risks and benefits of -- and alternatives to -- treatment through a remote evaluation and consents to proceed with the evaluation remotely. PATIENT DATA: Generalized Anxiety Disorder Scale (JET-7) JET - 7 SCORES 01/01/2023 01/16/2023 01/31/2023 JET-7 Score 9 10 6 (0-4) minimal anxiety, (5-9) mild anxiety, (10-14) moderate anxiety, (15-21) severe anxiety Patient Health Questionnaire (PHQ-9) PHQ-9 01/01/2023 01/16/2023 01/31/2023 Score 12 10 12 (0-4) minimal depression, (5-9) mild depression, (10-14) moderate depression, (15-19) moderately severe depression, (20-27) severe depression OBJECTIVE: Cognitive behavioral therapy Mental Status Exam: General/Sensorium: Alert and AND interactive - Appearance: Appears well groomed and stated age - Eye Contact: Appropriate eye contact - Demeanor: Appropriately interactive - Motor Activity: Normal - Speech: Appropriate - Mood: Reports feeling depressed - Affect: Flat and Sad/tearful - Thought Process: Linear, logical, and goal-directed - Associations: Normal - Thought Content: Appropriate with no SI/HI/AVH - Perceptions: The patient does not appear internally stimulated - Insight: Good - Judgment: Good - ASSESSMENT: Patient worked on processing through her emotional symptoms along with addressing family related problems DIAGNOSIS: PRIMARY: 1: Major depression recurrent moderate Other: None PROVISIONAL: None TREATMENT MODALITIES: Cognitive Behavioral Therapy to self monitoring PROGRESS TO DATE: [facility] Progress: Progress Short Term Condition: Progress GOALS/OBJECTIVES/INTERVENTIONS : Patient's primary goal for treatment is to reduce her symptoms of depression Approximately 45 minutes were spent with the patient doing therapy. WILLOW Adamson [facility] 01-25-2023 Miscellaneous Notes Formattin g of this note might be different from the original. Order pended Last VV 09/14/22 Next OV - to be scheduled Routing to provider for review Pharmacy verified in Epic Patient has been identified by name and date of : Yes Patient aware RX will be sent to pharmacy. No need to notify patient. Patient phones for refill(s): Requested Prescriptions Pending Prescriptions Disp Refills lamoTRIgine (LAMICTAL) 100 mg tablet 30 tablet 0 Sig: Take 1 tablet by mouth once daily. Date of last office visit : 04/06/2022 Date of next office visit : Visit date not found Last 2 Encounter Wt Readings: Date: Wt: 11/06/2022 108 kg (238 lb 3.2 oz) 04/06/2022 108 kg (238 lb) Not applicable Please advise. Eunice Gilliland Pss documented in this encounter [facility] 01-19-2023 Note HNO ID: [id number] Author: ZACHARY Adamson Service: ? Author Type: Worm Picker Type: Progress Notes Filed: 01/19/2023 11:22 AM Note Text: Patient was a no show for appointment [facility] 01-05-2023 Note HNO ID: [id number] Author: ZACHARY Adamson Service: ? Author Type: Worm Picker Type: Progress Notes Filed: 01/05/2023 12:14 PM Note Text: GENERAL PSYCHOLOGY Session #: 48 (session count starts after PSYL NEW EVAL visit) Visit Type:The patient consented to a virtual visit and their location was confirmed. SUBJECTIVE: I have communicated my name and active licensure. The patient's identity and physical location were verified at the time of this visit. Either the patient or their legal dental detail representative has been informed of the risks and benefits of -- and alternatives to -- treatment through a remote evaluation and consents to proceed with the evaluation remotely. PATIENT DATA: Generalized Anxiety Disorder Scale (JET-7) JET - 7 SCORES 11/27/2022 12/13/2022 01/01/2023 JET-7 Score 7 8 9 (0-4) minimal anxiety, (5-9) mild anxiety, (10-14) moderate anxiety, (15-21) severe anxiety Patient Health Questionnaire (PHQ-9) PHQ-9 11/27/2022 12/13/2022 01/01/2023 Score 9 11 12 (0-4) minimal depression, (5-9) mild depression, (10-14) moderate depression, (15-19) moderately severe depression, (20-27) severe depression OBJECTIVE: Cognitive behavioral therapy Mental Status Exam: General/Sensorium: Alert and AND interactive - Appearance: Appears well groomed and stated age - Eye Contact: Appropriate eye contact - Demeanor: Appropriately interactive - Motor Activity: Agitated - Speech: Appropriate - Mood: Angry - Affect: Flat and Sad/tearful - Thought Process: Linear, logical, and goal-directed and Circumstantial - Associations: Normal - Thought Content: Appropriate with no SI/HI/AVH - Perceptions: The patient does not appear internally stimulated - Cognition: Appears intact in regards to memory, attention/concentration, fund of knowledge and language skills - Insight: Good - Judgment: Good - ASSESSMENT: Patient worked on processing through her emotional symptoms along with addressing family related problems DIAGNOSIS: PRIMARY: 1: Major depression recurrent moderate Other: None PROVISIONAL: None TREATMENT MODALITIES: Cognitive Behavioral Therapy to self monitoring PROGRESS TO DATE: [employer] Progress: Progress Short Term Condition: Regressed GOALS/OBJECTIVES/INTERVENTIONS : Patient's primary goal for treatment is to reduce her symptoms of depression Approximately 45 minutes were spent with the patient doing therapy. WILLOW Adamson [facility] 12-15-2022 Note HNO ID: [id number] Author: ZACHARY Adamson Service: ? Author Type: Worm Picker Type: Progress Notes Filed: 12/15/2022 4:05 PM Note Text: GENERAL PSYCHOLOGY Session #: 46 (session count starts after PSYL NEW EVAL visit) Visit Type:The patient consented to a virtual visit and their location was confirmed. SUBJECTIVE: I have communicated my name and active licensure. The patient's identity and physical location were verified at the time of this visit. Either the patient or their legal dental detail representative has been informed of the risks and benefits of -- and alternatives to -- treatment through a remote evaluation and consents to proceed with the evaluation remotely. PATIENT DATA: Generalized Anxiety Disorder Scale (JET-7) JET - 7 SCORES 11/14/2022 11/27/2022 12/13/2022 JET-7 Score 7 7 8 (0-4) minimal anxiety, (5-9) mild anxiety, (10-14) moderate anxiety, (15-21) severe anxiety Patient Health Questionnaire (PHQ-9) PHQ-9 11/14/2022 11/27/2022 12/13/2022 Score 12 9 11 (0-4) minimal depression, (5-9) mild depression, (10-14) moderate depression, (15-19) moderately severe depression, (20-27) severe depression OBJECTIVE: Cognitive behavioral therapy Mental Status Exam: General/Sensorium: Alert and AND interactive - Appearance: Appears well groomed and stated age - Eye Contact: Appropriate eye contact - Demeanor: Appropriately interactive - Motor Activity: Normal - Speech: Appropriate - Mood: Reports feeling depressed - Affect: Flat and Sad/tearful - Thought Process: Linear, logical, and goal-directed - Associations: Normal - Thought Content: Appropriate with no SI/HI/AVH - Perceptions: The patient does not appear internally stimulated - Cognition: Appears intact in regards to memory, attention/concentration, fund of knowledge and language skills - Insight: Good - Judgment: Good - ASSESSMENT: Patient worked on processing through her emotional symptoms along with addressing emotional triggers DIAGNOSIS: PRIMARY: 1: Major depression recurrent Other: None PROVISIONAL: None TREATMENT MODALITIES: Cognitive Behavioral Therapy to self monitoring PROGRESS TO DATE: [facility] Progress: Progress Short Term Condition: Regressed GOALS/OBJECTIVES/INTERVENTIONS : Patient's primary goal for treatment is to reduce her symptoms of depression Approximately 45 minutes were spent with the patient doing therapy. WILLOW Adamson [facility] 12-01-2022 Note HNO ID: [id number] Author: ZACHARY Adamson Service: ? Author Type: Worm Picker Type: Progress Notes Filed: 12/01/2022 12:16 PM Note Text: GENERAL PSYCHOLOGY Session #: 45 (session count starts after PSYL NEW EVAL visit) Visit Type:The patient consented to a virtual visit and their location was confirmed. SUBJECTIVE: I have communicated my name and active licensure. The patient's identity and physical location were verified at the time of this visit. Either the patient or their legal dental detail representative has been informed of the risks and benefits of -- and alternatives to -- treatment through a remote evaluation and consents to proceed with the evaluation remotely. PATIENT DATA: Generalized Anxiety Disorder Scale (JET-7) JET - 7 SCORES 2022 11/14/2022 11/27/2022 JET-7 Score 8 7 7 (0-4) minimal anxiety, (5-9) mild anxiety, (10-14) moderate anxiety, (15-21) severe anxiety Patient Health Questionnaire (PHQ-9) PHQ-9 2022 11/14/2022 11/27/2022 Score 13 12 9 (0-4) minimal depression, (5-9) mild depression, (10-14) moderate depression, (15-19) moderately severe depression, (20-27) severe depression OBJECTIVE: Cognitive behavioral therapy Mental Status Exam: General/Sensorium: Alert and AND interactive - Appearance: Appears well groomed and stated age - Eye Contact: Appropriate eye contact - Demeanor: Appropriately interactive - Motor Activity: Normal - Speech: Appropriate - Mood: Reports feeling depressed - Affect: Flat and Sad/tearful - Thought Process: Linear, logical, and goal-directed - Associations: Normal - Thought Content: Appropriate with no SI/HI/AVH - Perceptions: The patient does not appear internally stimulated - Cognition: Appears intact in regards to memory, attention/concentration, fund of knowledge and language skills - Insight: Good - Judgment: Good - ASSESSMENT: Patient worked on processing through her emotional symptoms along with addressing some family related problems DIAGNOSIS: PRIMARY: 1: Major depression recurrent moderate Other: None PROVISIONAL: None TREATMENT MODALITIES: Cognitive Behavioral Therapy to self monitoring PROGRESS TO DATE: [facility] Progress: Progress Short Term Condition: Regressed GOALS/OBJECTIVES/INTERVENTIONS : Patient's primary goal for treatment is to reduce her symptoms of depression Approximately 45 minutes were spent with the patient doing therapy. WILLOW Adamson [facility] 11-22-2022 Miscellaneous Notes Formattin g of this note might be different from the original. [employer] message sent to patient with [employer] message. Health maintenance and surgical history updated. Recall letter placed. Patti Liz RN No concerning findings on colonoscopy. Recommend fiber supplement and plenty of fluids due to finding of diverticulosis (small pouches in lining of colon, common incidental finding). Repeat colonoscopy in 10 years if no new concerns before that time, please update HM/surg history/recall letter. No follow-up appt needed unless any questions or concerns Patient called in regards to a follow up for colonoscopy preferred by Dr. Frost in [place] on 11/10/2022. Patient stated they have been out of town and was not able to call sooner for an update. Patient asking if a follow up is needed. Please advise Thank you Alla Deng [employer] 11/10/2022 COLON MARIN documented in this encounter [facility] 11-17-2022 Note HNO ID: [id number] Author: ZACHARY Adamson Service: ? Author Type: Worm Picker Type: Progress Notes Filed: 11/17/2022 4:36 PM Note Text: GENERAL PSYCHOLOGY Session #: 44 (session count starts after PSYL NEW EVAL visit) SUBJECTIVE: I have communicated my name and active licensure. The patient's identity and physical location were verified at the time of this visit. Either the patient or their legal dental detail representative has been informed of the risks and benefits of -- and alternatives to -- treatment through a remote evaluation and consents to proceed with the evaluation remotely. PATIENT DATA: Generalized Anxiety Disorder Scale (JET-7) JET - 7 SCORES 09/27/2022 2022 11/14/2022 JET-7 Score 7 8 7 (0-4) minimal anxiety, (5-9) mild anxiety, (10-14) moderate anxiety, (15-21) severe anxiety Patient Health Questionnaire (PHQ-9) PHQ-9 09/27/2022 2022 11/14/2022 Score 15 13 12 (0-4) minimal depression, (5-9) mild depression, (10-14) moderate depression, (15-19) moderately severe depression, (20-27) severe depression OBJECTIVE: Cognitive behavioral therapy Mental Status Exam: General/Sensorium: Alert and AND interactive - Appearance: Appears well groomed and stated age - Eye Contact: Appropriate eye contact - Demeanor: Appropriately interactive - Motor Activity: Normal - Speech: Appropriate - Mood: Reports feeling depressed - Affect: Flat - Thought Process: Linear, logical, and goal-directed - Associations: Normal - Thought Content: Appropriate with no SI/HI/AVH - Perceptions: The patient does not appear internally stimulated - Cognition: Appears intact in regards to memory, attention/concentration, fund of knowledge and language skills - Insight: Good - Judgment: Good - ASSESSMENT: Patient worked on processing through her emotional symptoms along with addressing some family related problems DIAGNOSIS: PRIMARY: 1: Major depression recurrent moderate Other: None PROVISIONAL: None TREATMENT MODALITIES: Cognitive Behavioral Therapy to self monitoring PROGRESS TO DATE: [employer] Progress: Progress Short Term Condition: Progress GOALS/OBJECTIVES/INTERVENTIONS : Patient's primary goal for treatment is to reduce her symptoms of depression Approximately 45 minutes were spent with the patient doing therapy. WILLOW Adamson [facility] 11-10-2022 History and physical note Images from the original note were not included. HISTORY AND PHYSICAL Bruno Casanova 1970 REFERRING PHYSICIAN: No ref. provider found CHIEF COMPLAINT: Consult (colonoscopy) HPI: The patient is a 52 year old female referred for endoscopy. Bruno notes the following GI complaints: Bruno denies abdominal pain.. Bruno notes diarrhea. Bruno denies constipation. Bruno denies a change in bowel habits. Bruno denies melena. Bruno denies bright red blood per rectum. Bruno denies hemorrhoids. The patient notes no history of upper GI complaints. Bruno has undergone prior endoscopy. > 10 years ago PAST MEDICAL HISTORY PAST MEDICAL HISTORY Diagnosis Date Bulging lumbar disc and cervical DDD (degenerative disc disease), cervical Hypertension Meniere disease Migraines Non-functioning tympanostomy tube 04/21/2013 Otalgia of right ear 04/21/2013 Perforation of right tympanic membrane 07/07/2013 Rhinitis 04/21/2013 Sinusitis 04/21/2013 PAST SURGICAL HISTORY PAST SURGICAL HISTORY Procedure Laterality Date NONE S SPINAL CORD STIMULATOR, back and neck TOTAL HIP REPLACEMENT Left CURRENT MEDICATIONS Current Outpatient Medications Medication Sig rosuvastatin (CRESTOR) 5 mg tablet Take 10 mg by mouth once daily. lamoTRIgine (LAMICTAL) 100 mg tablet Take 1 tablet by mouth once daily. dexAMETHasone 0.1 % ophthalmic solution 3 drops 3 times a day to affected ear as needed vertigo celecoxib (CELEBREX) 200 mg capsule Take 200 mg by mouth once daily. Lysine 500 mg tab Take by mouth. venlafaxine (EFFEXOR) 37.5 mg tablet Take 37.5 mg by mouth twice daily. aMILoride (MIDAMOR) 5 mg tablet 5 mg once daily. acetaminophen (TYLENOL) 325 mg tablet Take 2 tablets by mouth every 4 hours as needed for Pain (post op total joint pain). senna-docusate (SENOKOT-S) 8.6-50 mg per tablet Take 2 tablets by mouth twice daily. potassium chloride ER (K-DUR, KLOR-CON) 20 mEq tablet Take 1 tablet by mouth twice daily. (Patient taking differently: Take 20 mEq by mouth three times daily.) melatonin 10 mg tab Take 10 mg by mouth as needed. ondansetron orally disintegrating (ZOFRAN ODT) 4 mg disintegrating tablet Take 1 tablet by mouth every 8 hours as needed for Nausea/Vomiting. meclizine (ANTIVERT) 12.5 mg tab as needed. Omeprazole 40 mg capsule Take by mouth once daily. Levothyroxine 75 mcg cap Take 75 mcg by mouth once daily. peg 3350-Electrolytes (GOLYTELY) 236-22.74-6.74 -5.86 gram suspension Take 4,000 mL by mouth one time only for 1 dose. Refer to printed prep instructions from your provider. methylPREDNISolone (MEDROL, NANCIE,) 4 mg Dose-Pack Take 1 tablet by mouth as directed. As Instructed per package (Patient not taking: Reported on 11/06/2022) triamterene-hydroCHLOROthiazid e (MAXZIDE-25) 37.5-25 mg per tablet Take 1 tablet by mouth once daily. (Patient not taking: Reported on 11/06/2022) drospirenone-e.estradiol-lm.FA (BEYAZ) 3-0.02-0.451 mg (24) (4) tab Take 1 tablet by mouth once daily. (Patient not taking: Reported on 11/06/2022) BIOFLAVONOID, LEMON, BULK, MISC (Patient not taking: Reported on 11/06/2022) ascorbic acid (BUFFERED VITAMIN C ORAL) Take by mouth. (Patient not taking: Reported on 11/06/2022) methylsulfonylmethane (MSM ORAL) Take 1,000 mg by mouth. (Patient not taking: Reported on 11/06/2022) niacin (NIACIN) 100 mg tablet Take 100 mg by mouth daily with breakfast. (Patient not taking: Reported on 11/06/2022) hyalur ac/chond sul/colg II/AA (HYALURONIC ACID, CHOND-COLLGN, ORAL) Take 50 mg by mouth. magnesium oxide 400 mg cap Take 1 capsule by mouth once daily. Twice a week (Patient not taking: Reported on 11/06/2022) cetirizine-pseudoephedrine (ZYRTEC-D) 5-120 mg per tablet Take 1 tablet by mouth. (Patient not taking: Reported on 11/06/2022) cholecalciferol (VITAMIN D3) 1,000 unit tab tablet Take 5,000 Units by mouth once daily. (Patient not taking: Reported on 11/06/2022) Ascorbic Acid 1,000 mg tablet Take 1,000 mg by mouth once daily. (Patient not taking: Reported on 11/06/2022) NORETHINDRONE, CONTRACEPTIVE, ORAL Take 0.35 mg by mouth. MULTIVITAMIN TAB Take one(1) tablet daily. (Patient not taking: Reported on 11/06/2022) No current facility-administered medications for this visit. 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 Eyes: The patient denies glaucoma, denies eye injury/surgery, wears glasses or contacts. Ear/Nose/Throat: The patient NOTES allergies, denies hayfever, denies ear infections, and denies bloody noses. Cardiovascular: The patient denies chest pain, denies heart disease, denies high blood pressure,denies cardiac stent, denies prior heart attack, denies irregular heart beat, NOTES high cholesterol, denies poor circulation, denies heart failure, other cardiac issues, denies claudication, denies cold feet, denies peripheral arterial stent. Respiratory: The patient denies tuberculosis, denies pneumonia, denies frequent cough, denies pulmonary embolism, denies shortness of breath, and denies coughing up blood. Gastrointestinal: The patient denies difficulty swallowing, denies acid reflux, NOTES ulcers, denies vomiting, denies jaundice/hepatitis, denies gallbladder problems, denies black or tarry stools, denies hemorrhoids, denies bleeding from rectum, denies diverticulitis, denies constipation, NOTES diarrhea, denies loss of stool control, and denies hernias. Kidney/Bladder: The patient denies kidney stones, denies urine infections, and denies bloody urine. Skin: The patient denies a history of skin cancer, denies bleeding/changing moles, and denies a history of skin rash. Neurologic: The patient denies a history of epilepsy/convulsions, NOTES headaches, NOTES head/spinal injuries, and denies stroke/TIA. Psychiatric: The patient denies psychiatric medications, NOTES depression, and denies voices, denies substance abuse. Endocrine: The patient NOTES thyroid disorders, denies diabetes, and denies hormonal problems. Hematologic: The patient denies a history of bruising, denies bleeding, and denies anemia, denies blood clots. Infections: The patient denies a history of measles and mumps, denies rheumatic fever, and denies sexually transmitted diseases. Musculoskeletal: The patient NOTES back pain/injury, NOTES back problems, denies sciatica, denies knee/foot trouble, NOTES arthritis, or denies gout. When was patient's last Mammogram screening? N/A Last Colonoscopy: UNKNOWN Kelly ChavesCATHERINE PHYSICAL EXAMINATION: General: The patient is 52 year old female, well nourished, well hydrated in no acute distress. The patient is oriented to time, place, and person. VITALS: Blood pressure 122/84, pulse 99, temperature 36.7 C (98 F), height 165.1 cm (5' 5 ), weight 108 kg (238 lb 3.2 oz), last menstrual period 06/26/2018, SpO2 99 %. Body mass index is 39.64 kg/m . HEENT: Normal cephalic, ataumatic, pupils are equally round, sclera are anicteric, mucous membranes are moist, oropharynx is clear. Neck has no masses, asymmetry or lymphadenopathy. Thyroid is unremarkable. Respiratory: Clear to auscultation and percussion. Normal respiratory excursion and pattern. Cardiac: Examination is regular rate and rhythm. Abdominal exam: Soft, nontender, with no palpable masses. No hepatosplenomegaly. No palpable hernias. Rectal exam: exam deferred Extremities: no clubbing, cyanosis or edema. No adenopathy. Other: LABORATORY VALUES: As Noted RADIOLOGIC STUDIES: As Noted Assessment IMPRESSION: Encounter for screening for malignant neoplasm of colon (primary encounter diagnosis) PLAN: I plan to perform lower endoscopy. We discussed the risks and benefits of the planned endoscopy. I have informed the patient that complications can occur including failure to complete the endoscopy and perforation. The patient had the opportunity to ask questions concerning the planned endoscopy. My staff has also explained the procedure to the patient in understandable terms and has given the patient printed material concerning the procedure. The patient freely consents to surgery. I plan to use golytely bowel preparation for endoscopy I plan for monitored anesthetic care. Diagnoses: (Z12.11) Encounter for screening for malignant neoplasm of colon (primary encounter diagnosis) Return to Clinic: The patient is instructed to follow-up with me 1 week post operatively. Travis Frost III, MD UPDATED HISTORY AND PHYSICAL EXAMINATION SERVICE DATE: 11/10/2022 SERVICE TIME: 12:39 PM PHYSICAL EXAM MUST BE COMPLETED ON ADMISSION The History and Physical (completed in the past 30 days) has been reviewed and the patient has been examined. The contents accurately reflect the patient's condition with the following additions or revisions since the H&P was completed. Examination indicates no changes. This H&P can be found in the attached. SIGNATURE: Travis Frost III, MD PATIENT NAME: Bruno Casanova DATE: November 10, 2022 TIME: 12:39 PM documented in this encounter [facility] 11-06-2022 Note HNO ID: [id number] Author: Travis Frost MD Service: ? Author Type: Physician Type: Progress Notes Filed: 11/06/2022 1:51 PM Note Text: HISTORY AND PHYSICAL Bruno Casanova 1970 REFERRING PHYSICIAN: No ref. provider found CHIEF COMPLAINT: Consult (colonoscopy) HPI: The patient is a 52 year old female referred for endoscopy. Bruno notes the following GI complaints: Bruno denies abdominal pain.. Bruno notes diarrhea. Bruno denies constipation. Bruno denies a change in bowel habits. Bruno denies melena. Bruno denies bright red blood per rectum. Bruno denies hemorrhoids. The patient notes no history of upper GI complaints. Bruno has undergone prior endoscopy. > 10 years ago PAST MEDICAL HISTORY Diagnosis Date Bulging lumbar disc and cervical DDD (degenerative disc disease), cervical Hypertension Meniere disease Migraines Non-functioning tympanostomy tube 04/21/2013 Otalgia of right ear 04/21/2013 Perforation of right tympanic membrane 07/07/2013 Rhinitis 04/21/2013 Sinusitis 04/21/2013 PAST SURGICAL HISTORY Procedure Laterality Date NONE S SPINAL CORD STIMULATOR, back and neck TOTAL HIP REPLACEMENT Left Current Outpatient Medications Medication Sig rosuvastatin (CRESTOR) 5 mg tablet Take 10 mg by mouth once daily. lamoTRIgine (LAMICTAL) 100 mg tablet Take 1 tablet by mouth once daily. dexAMETHasone 0.1 % ophthalmic solution 3 drops 3 times a day to affected ear as needed vertigo celecoxib (CELEBREX) 200 mg capsule Take 200 mg by mouth once daily. Lysine 500 mg tab Take by mouth. venlafaxine (EFFEXOR) 37.5 mg tablet Take 37.5 mg by mouth twice daily. aMILoride (MIDAMOR) 5 mg tablet 5 mg once daily. acetaminophen (TYLENOL) 325 mg tablet Take 2 tablets by mouth every 4 hours as needed for Pain (post op total joint pain). senna-docusate (SENOKOT-S) 8.6-50 mg per tablet Take 2 tablets by mouth twice daily. potassium chloride ER (K-DUR, KLOR-CON) 20 mEq tablet Take 1 tablet by mouth twice daily. (Patient taking differently: Take 20 mEq by mouth three times daily.) melatonin 10 mg tab Take 10 mg by mouth as needed. ondansetron orally disintegrating (ZOFRAN ODT) 4 mg disintegrating tablet Take 1 tablet by mouth every 8 hours as needed for Nausea/Vomiting. meclizine (ANTIVERT) 12.5 mg tab as needed. Omeprazole 40 mg capsule Take by mouth once daily. Levothyroxine 75 mcg cap Take 75 mcg by mouth once daily. peg 3350-Electrolytes (GOLYTELY) 236-22.74-6.74 -5.86 gram suspension Take 4,000 mL by mouth one time only for 1 dose. Refer to printed prep instructions from your provider. methylPREDNISolone (MEDROL, NANCIE,) 4 mg Dose-Pack Take 1 tablet by mouth as directed. As Instructed per package (Patient not taking: Reported on 11/06/2022) triamterene-hydroCHLOROthiazid e (MAXZIDE-25) 37.5-25 mg per tablet Take 1 tablet by mouth once daily. (Patient not taking: Reported on 11/06/2022) drospirenone-e.estradiol-lm.FA (BEYAZ) 3-0.02-0.451 mg (24) (4) tab Take 1 tablet by mouth once daily. (Patient not taking: Reported on 11/06/2022) BIOFLAVONOID, LEMON, BULK, MISC (Patient not taking: Reported on 11/06/2022) ascorbic acid (BUFFERED VITAMIN C ORAL) Take by mouth. (Patient not taking: Reported on 11/06/2022) methylsulfonylmethane (MSM ORAL) Take 1,000 mg by mouth. (Patient not taking: Reported on 11/06/2022) niacin (NIACIN) 100 mg tablet Take 100 mg by mouth daily with breakfast. (Patient not taking: Reported on 11/06/2022) hyalur ac/chond sul/colg II/AA (HYALURONIC ACID, CHOND-COLLGN, ORAL) Take 50 mg by mouth. magnesium oxide 400 mg cap Take 1 capsule by mouth once daily. Twice a week (Patient not taking: Reported on 11/06/2022) cetirizine-pseudoephedrine (ZYRTEC-D) 5-120 mg per tablet Take 1 tablet by mouth. (Patient not taking: Reported on 11/06/2022) cholecalciferol (VITAMIN D3) 1,000 unit tab tablet Take 5,000 Units by mouth once daily. (Patient not taking: Reported on 11/06/2022) Ascorbic Acid 1,000 mg tablet Take 1,000 mg by mouth once daily. (Patient not taking: Reported on 11/06/2022) NORETHINDRONE, CONTRACEPTIVE, ORAL Take 0.35 mg by mouth. MULTIVITAMIN TAB Take one(1) tablet daily. (Patient not taking: Reported on 11/06/2022) No current facility-administered medications for this visit. 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 [facility] 11-06-2022 History of Presen t illness Narrative HISTORY AND PHYSICAL Bruno Casanova 1970 REFERRING PHYSICIAN: No ref. provider found CHIEF COMPLAINT: Consult (colonoscopy) HPI: The patient is a 52 year old female referred for endoscopy. Bruno notes the following GI complaints: Bruno denies abdominal pain.. Bruno notes diarrhea. Bruno denies constipation. Bruno denies a change in bowel habits. Bruno denies melena. Bruno denies bright red blood per rectum. Bruno denies hemorrhoids. The patient notes no history of upper GI complaints. Bruno has undergone prior endoscopy. > 10 years ago PAST MEDICAL HISTORY Diagnosis Date Bulging lumbar disc and cervical DDD (degenerative disc disease), cervical Hypertension Meniere disease Migraines Non-functioning tympanostomy tube 04/21/2013 Otalgia of right ear 04/21/2013 Perforation of right tympanic membrane 07/07/2013 Rhinitis 04/21/2013 Sinusitis 04/21/2013 PAST SURGICAL HISTORY Procedure Laterality Date NONE S SPINAL CORD STIMULATOR, back and neck TOTAL HIP REPLACEMENT Left Current Outpatient Medications Medication Sig rosuvastatin (CRESTOR) 5 mg tablet Take 10 mg by mouth once daily. lamoTRIgine (LAMICTAL) 100 mg tablet Take 1 tablet by mouth once daily. dexAMETHasone 0.1 % ophthalmic solution 3 drops 3 times a day to affected ear as needed vertigo celecoxib (CELEBREX) 200 mg capsule Take 200 mg by mouth once daily. Lysine 500 mg tab Take by mouth. venlafaxine (EFFEXOR) 37.5 mg tablet Take 37.5 mg by mouth twice daily. aMILoride (MIDAMOR) 5 mg tablet 5 mg once daily. acetaminophen (TYLENOL) 325 mg tablet Take 2 tablets by mouth every 4 hours as needed for Pain (post op total joint pain). senna-docusate (SENOKOT-S) 8.6-50 mg per tablet Take 2 tablets by mouth twice daily. potassium chloride ER (K-DUR, KLOR-CON) 20 mEq tablet Take 1 tablet by mouth twice daily. (Patient taking differently: Take 20 mEq by mouth three times daily.) melatonin 10 mg tab Take 10 mg by mouth as needed. ondansetron orally disintegrating (ZOFRAN ODT) 4 mg disintegrating tablet Take 1 tablet by mouth every 8 hours as needed for Nausea/Vomiting. meclizine (ANTIVERT) 12.5 mg tab as needed. Omeprazole 40 mg capsule Take by mouth once daily. Levothyroxine 75 mcg cap Take 75 mcg by mouth once daily. peg 3350-Electrolytes (GOLYTELY) 236-22.74-6.74 -5.86 gram suspension Take 4,000 mL by mouth one time only for 1 dose. Refer to printed prep instructions from your provider. methylPREDNISolone (MEDROL, NANCIE,) 4 mg Dose-Pack Take 1 tablet by mouth as directed. As Instructed per package (Patient not taking: Reported on 11/06/2022) triamterene-hydroCHLOROthiazid e (MAXZIDE-25) 37.5-25 mg per tablet Take 1 tablet by mouth once daily. (Patient not taking: Reported on 11/06/2022) drospirenone-e.estradiol-lm.FA (BEYAZ) 3-0.02-0.451 mg (24) (4) tab Take 1 tablet by mouth once daily. (Patient not taking: Reported on 11/06/2022) BIOFLAVONOID, LEMON, BULK, MISC (Patient not taking: Reported on 11/06/2022) ascorbic acid (BUFFERED VITAMIN C ORAL) Take by mouth. (Patient not taking: Reported on 11/06/2022) methylsulfonylmethane (MSM ORAL) Take 1,000 mg by mouth. (Patient not taking: Reported on 11/06/2022) niacin (NIACIN) 100 mg tablet Take 100 mg by mouth daily with breakfast. (Patient not taking: Reported on 11/06/2022) hyalur ac/chond sul/colg II/AA (HYALURONIC ACID, CHOND-COLLGN, ORAL) Take 50 mg by mouth. magnesium oxide 400 mg cap Take 1 capsule by mouth once daily. Twice a week (Patient not taking: Reported on 11/06/2022) cetirizine-pseudoephedrine (ZYRTEC-D) 5-120 mg per tablet Take 1 tablet by mouth. (Patient not taking: Reported on 11/06/2022) cholecalciferol (VITAMIN D3) 1,000 unit tab tablet Take 5,000 Units by mouth once daily. (Patient not taking: Reported on 11/06/2022) Ascorbic Acid 1,000 mg tablet Take 1,000 mg by mouth once daily. (Patient not taking: Reported on 11/06/2022) NORETHINDRONE, CONTRACEPTIVE, ORAL Take 0.35 mg by mouth. MULTIVITAMIN TAB Take one(1) tablet daily. (Patient not taking: Reported on 11/06/2022) No current facility-administered medications for this visit. 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 Eyes: The patient denies glaucoma, denies eye injury/surgery, wears glasses or contacts. Ear/Nose/Throat: The patient NOTES allergies, denies hayfever, denies ear infections, and denies bloody noses. Cardiovascular: The patient denies chest pain, denies heart disease, denies high blood pressure,denies cardiac stent, denies prior heart attack, denies irregular heart beat, NOTES high cholesterol, denies poor circulation, denies heart failure, other cardiac issues, denies claudication, denies cold feet, denies peripheral arterial stent. Respiratory: The patient denies tuberculosis, denies pneumonia, denies frequent cough, denies pulmonary embolism, denies shortness of breath, and denies coughing up blood. Gastrointestinal: The patient denies difficulty swallowing, denies acid reflux, NOTES ulcers, denies vomiting, denies jaundice/hepatitis, denies gallbladder problems, denies black or tarry stools, denies hemorrhoids, denies bleeding from rectum, denies diverticulitis, denies constipation, NOTES diarrhea, denies loss of stool control, and denies hernias. Kidney/Bladder: The patient denies kidney stones, denies urine infections, and denies bloody urine. Skin: The patient denies a history of skin cancer, denies bleeding/changing moles, and denies a history of skin rash. Neurologic: The patient denies a history of epilepsy/convulsions, NOTES headaches, NOTES head/spinal injuries, and denies stroke/TIA. Psychiatric: The patient denies psychiatric medications, NOTES depression, and denies voices, denies substance abuse. Endocrine: The patient NOTES thyroid disorders, denies diabetes, and denies hormonal problems. Hematologic: The patient denies a history of bruising, denies bleeding, and denies anemia, denies blood clots. Infections: The patient denies a history of measles and mumps, denies rheumatic fever, and denies sexually transmitted diseases. Musculoskeletal: The patient NOTES back pain/injury, NOTES back problems, denies sciatica, denies knee/foot trouble, NOTES arthritis, or denies gout. When was patient's last Mammogram screening? N/A Last Colonoscopy: UNKNOWN Kelly Chaves LPN PHYSICAL EXAMINATION: General: The patient is 52 year old female, well nourished, well hydrated in no acute distress. The patient is oriented to time, place, and person. VITALS: Blood pressure 122/84, pulse 99, temperature 36.7 C (98 F), height 165.1 cm (5' 5 ), weight 108 kg (238 lb 3.2 oz), last menstrual period 06/26/2018, SpO2 99 %. Body mass index is 39.64 kg/m . HEENT: Normal cephalic, ataumatic, pupils are equally round, sclera are anicteric, mucous membranes are moist, oropharynx is clear. Neck has no masses, asymmetry or lymphadenopathy. Thyroid is unremarkable. Respiratory: Clear to auscultation and percussion. Normal respiratory excursion and pattern. Cardiac: Examination is regular rate and rhythm. Abdominal exam: Soft, nontender, with no palpable masses. No hepatosplenomegaly. No palpable hernias. Rectal exam: exam deferred Extremities: no clubbing, cyanosis or edema. No adenopathy. Other: LABORATORY VALUES: As Noted RADIOLOGIC STUDIES: As Noted Assessment IMPRESSION: Encounter for screening for malignant neoplasm of colon (primary encounter diagnosis) PLAN: I plan to perform lower endoscopy. We discussed the risks and benefits of the planned endoscopy. I have informed the patient that complications can occur including failure to complete the endoscopy and perforation. The patient had the opportunity to ask questions concerning the planned endoscopy. My staff has also explained the procedure to the patient in understandable terms and has given the patient printed material concerning the procedure. The patient freely consents to surgery. I plan to use golytely bowel preparation for endoscopy I plan for monitored anesthetic care. Diagnoses: (Z12.11) Encounter for screening for malignant neoplasm of colon (primary encounter diagnosis) Return to Clinic: The patient is instructed to follow-up with me 1 week post operatively. Travis Frost III, MD documented in this encounter [facility] 11-06-2022 Nurse Note REVIEW OF SYSTEMS: General: The patient NOTES fatigue, denies weight loss, denies weight gain, denies feeling hot, and denies feelings of cold. Eyes: The patient denies glaucoma, denies eye injury/surgery, wears glasses or contacts. Ear/Nose/Throat: The patient NOTES allergies, denies hayfever, denies ear infections, and denies bloody noses. Cardiovascular: The patient denies chest pain, denies heart disease, denies high blood pressure,denies cardiac stent, denies prior heart attack, denies irregular heart beat, NOTES high cholesterol, denies poor circulation, denies heart failure, other cardiac issues, denies claudication, denies cold feet, denies peripheral arterial stent. Respiratory: The patient denies tuberculosis, denies pneumonia, denies frequent cough, denies pulmonary embolism, denies shortness of breath, and denies coughing up blood. Gastrointestinal: The patient denies difficulty swallowing, denies acid reflux, NOTES ulcers, denies vomiting, denies jaundice/hepatitis, denies gallbladder problems, denies black or tarry stools, denies hemorrhoids, denies bleeding from rectum, denies diverticulitis, denies constipation, NOTES diarrhea, denies loss of stool control, and denies hernias. Kidney/Bladder: The patient denies kidney stones, denies urine infections, and denies bloody urine. Skin: The patient denies a history of skin cancer, denies bleeding/changing moles, and denies a history of skin rash. Neurologic: The patient denies a history of epilepsy/convulsions, NOTES headaches, NOTES head/spinal injuries, and denies stroke/TIA. Psychiatric: The patient denies psychiatric medications, NOTES depression, and denies voices, denies substance abuse. Endocrine: The patient NOTES thyroid disorders, denies diabetes, and denies hormonal problems. Hematologic: The patient denies a history of bruising, denies bleeding, and denies anemia, denies blood clots. Infections: The patient denies a history of measles and mumps, denies rheumatic fever, and denies sexually transmitted diseases. Musculoskeletal: The patient NOTES back pain/injury, NOTES back problems, denies sciatica, denies knee/foot trouble, NOTES arthritis, or denies gout. When was patient's last Mammogram screening? N/A Last Colonoscopy: UNKNOWN Kelly Chaves LPN documented in this encounter [facility] 11-06-2022 Instructions Travis Frost MD - 11/06/2022 1:33 PM EDT Images from the original note were not included. Bowel Preparation Instructions for: Golytely, Nulytely, Trilyte or Colyte (polyethylene glycol 3350 and electrolytes) IF YOU DO NOT FOLLOW THESE DIRECTIONS, YOUR COLONOSCOPY WILL BE CANCELLED. Miguel Instructions: Your bowel must be empty so that your doctor can clearly view your colon. Follow all of the instructions in this handout EXACTLY as they are written. Do NOT eat any solid food the ENTIRE day before your colonoscopy. Drink only clear liquids. Buy your bowel preparation at least 5 days before your colonoscopy. TRANSPORTATION on the Day of Your Exam A responsible person MUST be present with you at Check In prior to your colonoscopy and REMAIN in the endoscopy area until you are discharged. You are NOT ALLOWED to drive, take a taxi or bus, or leave the Endoscopy Center ALONE. If you do not have a responsible charter driver (family member or friend) with you to take you home, your exam cannot be done with sedation and will be cancelled. Please bring a list of all of your current medications, including any Over-the Counter medications with you. Medications If you take insulin, diabetic medications or blood thinners such as Coumadin (warfarin), Plavix (clopidogrel), Ticlid (ticlopidine hydrochloride), Agrylin (anagrelide), Xarelto (Rivaroxaban), Pradaxa (Dabigatran), Eliquis (Apixaban), and Effient (Prasugrel). You MUST call the doctors who orders those medicines for instructions on altering the dosage before your colonoscopy. All other medications should be taken the day of the exam with a sip of water including ASPIRIN. Five (5) Days Before Your Colonoscopy Do NOT take medicines that stop diarrhea - such as Imodium, Kaopectate, or Pepto Bismol. Do NOT take fiber supplements - such as Metamucil, Citrucel, or Perdiem. Do NOT take products that contain iron - such as multi-vitamins (the label lists what is in the products). Do NOT take Vitamin E. Buy the prescription bowel preparation solution at your local pharmacy or drugstore pharmacy. 07/2019 Bowel Preparation Instructions for: Golytely, Nulytely, Trilyte or Colyte (polyethylene glycol 3350 and electrolytes) Three (3) Days Before Your Colonoscopy Do NOT eat high-fiber foods - such as popcorn, beans, seeds (flax, sunflower, quinoa), multigrain bread, nuts, salad/vegetables, or fresh and dried fruit. One (1) Day Before Your Colonoscopy Only drink clear liquids the ENTIRE DAY before your colonoscopy. Do NOT eat any solid foods. Drink at least 8 ounces of clear liquids every hour after waking up. The clear liquids you can drink include: Clear Liquid (NO RED LIQUIDS) DO NOT DRINK Gatorade, Pedialyte or Powerade Clear broth or bouillon Coffee or tea (no milk or non-dairy creamer) Carbonated and non-carbonated soft drinks Avery-Aid or other fruit flavored drinks Strained fruit juices (no pulp) Jell-O, popsicles, hard candy Water Alcohol Milk or non-dairy creamers Noodles or vegetables in soup Juice with pulp Liquid you cannot see through Do not use tobacco/vaping products The bowel preparation solution will be consumed in two parts. Mix the solution the evening before your colonoscopy and refrigerate before drinking. You may add the flavor pack that came with the bowel preparation. Do NOT add ice, sugar or any other flavorings to the solution. Part 1 At 6:00 PM - Evening before your colonoscopy Drink an 8-oz glass of bowel preparation every 10 minutes for a total of 8 glasses. You may continue to drink clear liquids until midnight. Part 2 On the day of your colonoscopy you may drink clear liquids up to (three) 3 hours before your procedure. 4 1/2 hours before your colonoscopy Drink an 8-oz glass of bowel preparation every 10 minutes for a total of 8 glasses. Fifteen (15) minutes later, drink an 8-oz glass of clear liquids every 15 minutes for a total of 2 glasses. You may continue to drink clear liquids up to (three) 3 hours before your exam. 2 07/2019 documented in this encounter [facility] 11-03-2022 Miscellaneous Notes Formattin g of this note might be different from the original. Called patient to schedule colonoscopy, she has a new GI Doctor. Rhina Tee MA documented in this encounter [facility] 10-13-2022 Note HNO ID: [id number] Author: ZACHARY Adamson Service: ? Author Type: Worm Picker Type: Progress Notes Filed: 10/13/2022 2:57 PM Note Text: GENERAL PSYCHOLOGY Session #: 43 (session count starts after PSYL NEW EVAL visit) SUBJECTIVE: This Team Access Model visit is a virtual encounter. It required patient-provider interaction for the medical decision making as documented below. Patient gave consent for virtual visit Confirmed patient is in the [facility] and this provider is in the [facility]. PATIENT DATA: Generalized Anxiety Disorder Scale (JET-7) JET - 7 SCORES 09/13/2022 09/27/2022 2022 JET-7 Score 8 7 8 (0-4) minimal anxiety, (5-9) mild anxiety, (10-14) moderate anxiety, (15-21) severe anxiety Patient Health Questionnaire (PHQ-9) PHQ-9 09/13/2022 09/27/2022 2022 Score 11 15 13 (0-4) minimal depression, (5-9) mild depression, (10-14) moderate depression, (15-19) moderately severe depression, (20-27) severe depression OBJECTIVE: Cognitive behavioral therapy Mental Status Exam: General/Sensorium: Alert and AND interactive - Appearance: Appears well groomed and stated age - Eye Contact: Appropriate eye contact - Demeanor: Appropriately interactive - Motor Activity: Normal - Speech: Appropriate - Mood: Reports feeling depressed - Affect: Flat - Thought Process: Linear, logical, and goal-directed - Associations: Normal - Thought Content: Appropriate with no SI/HI/AVH - Perceptions: The patient does not appear internally stimulated - Cognition: Appears intact in regards to memory, attention/concentration, fund of knowledge and language skills - Insight: Good - Judgment: Good - ASSESSMENT: Patient worked on processing through her emotional symptoms along with addressing family related problems that are negatively impacting her emotionally DIAGNOSIS: PRIMARY: 1: Major depression recurrent moderate Other: None PROVISIONAL: None TREATMENT MODALITIES: Cognitive Behavioral Therapy to self monitoring PROGRESS TO DATE: [facility] Progress: Progress Short Term Condition: Regressed GOALS/OBJECTIVES/INTERVENTIONS : Patient's primary goal for treatment is to reduce her symptoms of depression Approximately 45 minutes were spent with the patient doing therapy. WILLOW Adamson [facility] 10-02-2022 Miscellaneous Notes Addended by: MIKE ANGULO on: 10/02/2022 06:15 PM Modules accepted: Level of Service documented in this encounter [facility] 09-29-2022 Note HNO ID: [id number] Author: ZACHARY Adamson Service: ? Author Type: Worm Picker Type: Progress Notes Filed: 09/29/2022 2:43 PM Note Text: GENERAL PSYCHOLOGY Session #: 42 (session count starts after PSYL NEW EVAL visit) SUBJECTIVE: This Team Access Model visit is a virtual encounter. It required patient-provider interaction for the medical decision making as documented below. Patient gave consent for virtual visit Confirmed patient is in the [facility] and this provider is in the [facility]. PATIENT DATA: Generalized Anxiety Disorder Scale (JET-7) JET - 7 SCORES 08/22/2022 09/13/2022 09/27/2022 JET-7 Score 9 8 7 (0-4) minimal anxiety, (5-9) mild anxiety, (10-14) moderate anxiety, (15-21) severe anxiety Patient Health Questionnaire (PHQ-9) PHQ-9 08/22/2022 09/13/2022 09/27/2022 Score 10 11 15 (0-4) minimal depression, (5-9) mild depression, (10-14) moderate depression, (15-19) moderately severe depression, (20-27) severe depression OBJECTIVE: Cognitive behavioral therapy Mental Status Exam: General/Sensorium: Alert and AND interactive - Appearance: Appears well groomed and stated age - Eye Contact: Appropriate eye contact - Demeanor: Appropriately interactive - Motor Activity: Normal - Speech: Appropriate - Mood: Reports feeling depressed - Affect: Flat and Sad/tearful - Thought Process: Linear, logical, and goal-directed and Circumstantial - Associations: Normal - Thought Content: Appropriate with no SI/HI/AVH - Perceptions: The patient does not appear internally stimulated - Cognition: Appears intact in regards to memory, attention/concentration, fund of knowledge and language skills - Insight: Good - Judgment: Good - ASSESSMENT: Patient worked on processing through her emotional symptoms along with addressing family related problem DIAGNOSIS: PRIMARY: 1: Major depression recurrent moderate Other: None PROVISIONAL: None TREATMENT MODALITIES: Cognitive Behavioral Therapy to self monitoring PROGRESS TO DATE: [facility] Progress: Progress Short Term Condition: Progress GOALS/OBJECTIVES/INTERVENTIONS : Patient's primary goal for treatment is to reduce her symptoms of depression Approximately 45 minutes were spent with the patient doing therapy. WILLOW Adamson [facility] 09-15-2022 Note HNO ID: [id number] Author: ZACHARY Adamson Service: ? Author Type: Worm Picker Type: Progress Notes Filed: 09/15/2022 3:59 PM Note Text: GENERAL PSYCHOLOGY Session #: 41 (session count starts after PSYL NEW EVAL visit) SUBJECTIVE: This Team Access Model visit is a virtual encounter. It required patient-provider interaction for the medical decision making as documented below. Patient gave consent for virtual visit Confirmed patient is in the [facility] and this provider is in the [facility]. PATIENT DATA: Generalized Anxiety Disorder Scale (JET-7) JET - 7 SCORES 08/09/2022 08/22/2022 09/13/2022 JET-7 Score 9 9 8 (0-4) minimal anxiety, (5-9) mild anxiety, (10-14) moderate anxiety, (15-21) severe anxiety Patient Health Questionnaire (PHQ-9) PHQ-9 08/09/2022 08/22/2022 09/13/2022 Score 10 10 11 (0-4) minimal depression, (5-9) mild depression, (10-14) moderate depression, (15-19) moderately severe depression, (20-27) severe depression OBJECTIVE: Cognitive behavioral therapy Mental Status Exam: General/Sensorium: Alert and AND interactive - Appearance: Appears well groomed and stated age - Eye Contact: Appropriate eye contact - Demeanor: Appropriately interactive - Motor Activity: Normal - Speech: Appropriate - Mood: Reports feeling depressed - Affect: Flat and Sad/tearful - Thought Process: Linear, logical, and goal-directed - Associations: Normal - Thought Content: Appropriate with no SI/HI/AVH - Perceptions: The patient does not appear internally stimulated - Cognition: Appears intact in regards to memory, attention/concentration, fund of knowledge and language skills - Insight: Good - Judgment: Good - ASSESSMENT: Patient worked on processing through her emotional symptoms along with addressing some family related problems DIAGNOSIS: PRIMARY: 1: Major depression recurrent moderate Other: None PROVISIONAL: None TREATMENT MODALITIES: Cognitive Behavioral Therapy to self monitoring PROGRESS TO DATE: [facility] Progress: Progress Short Term Condition: Progress GOALS/OBJECTIVES/INTERVENTIONS : Patient's primary goal for treatment is to reduce her symptoms of depression Approximately 45 minutes were spent with the patient doing therapy. WILLOW Adamson [facility] 09-14-2022 Note HNO ID: [id number] Author: Mike Angulo MD Service: ? Author Type: Physician Type: Progress Notes Filed: 10/02/2022 6:14 PM Note Text: Follow up visit Interval history No orders found for this visit on 09/14/22. Headache and vertigo for which she is taking Lamictal 25 mg daily She also had flaring of meniere disease and took oral steroids History Bruno Casanova is a 51 year old female seen for migraine and dizziness She is seeing ENT For meniere disease but referred her to control her migriane As she is having daily headaches Headaches are right temporal throbbing pain,with nausea Dizziness with vertigo Goes to sleep in a dark quiet room Sometimes passing out when she has severe migriane ,no LOC But hard to wake up No previous seizure or family With the migriane she sees floaters and stars black white Or things can be moving ,she has scalp tenderness with headache She takes topamax and gabapentin She previously went to dr pool and tried many headache medications and infusion Saw other neurologists. Headache for 13 years ,after head trauma with LOC few minutes . She started crying when she was talking about the accident but was much happier few minutes earlier She is taking effexor and followed by psychiatrist ,for depression and mood disorder No headache free days ,tried many migriane medications excedrin migraine takes the edge only Chronic daily neck pain Physical therapy and vestibular therapy done many times HISTORY REVIEWED (electronic chart updated): PAST MEDICAL HISTORY Diagnosis Date Bulging lumbar disc and cervical Hypertension Meniere disease Migraines Non-functioning tympanostomy tube 04/21/2013 Otalgia of right ear 04/21/2013 Perforation of right tympanic membrane 07/07/2013 Rhinitis 04/21/2013 Sinusitis 04/21/2013 PAST SURGICAL HISTORY Procedure Laterality Date NONE FAMILY HISTORY Problem Relation Age of Onset Asthma Mother Hypertension Mother Heart disease Mother Diabetes Father Cancer Father Colon Social History Tobacco Use Smoking status: Every Day Packs/day: 0.75 Years: 25.00 Pack years: 18.75 Types: Cigarettes Smokeless tobacco: Never Tobacco comments: currently 1 pack every 3 days; patient cutting back for surgery - not ready to quit Substance Use Topics Alcohol use: Yes Drug use: No Current Outpatient Medications Medication Sig lamoTRIgine (LAMICTAL) 100 mg tablet Take 1 tablet by mouth once daily. methylPREDNISolone (MEDROL, NANCIE,) 4 mg Dose-Pack Take 1 tablet by mouth as directed. As Instructed per package dexAMETHasone 0.1 % ophthalmic solution 3 drops 3 times a day to affected ear as needed vertigo triamterene-hydroCHLOROthiazid e (MAXZIDE-25) 37.5-25 mg per tablet Take 1 tablet by mouth once daily. celecoxib (CELEBREX) 200 mg capsule Take 200 mg by mouth once daily. drospirenone-e.estradiol-lm.FA (BEYAZ) 3-0.02-0.451 mg (24) (4) tab Take 1 tablet by mouth once daily. BIOFLAVONOID, LEMON, BULK, MISC ascorbic acid (BUFFERED VITAMIN C ORAL) Take by mouth. methylsulfonylmethane (MSM ORAL) Take 1,000 mg by mouth. Lysine 500 mg tab Take by mouth. niacin (NIACIN) 100 mg tablet Take 100 mg by mouth daily with breakfast. hyalur ac/chond sul/colg II/AA (HYALURONIC ACID, CHOND-COLLGN, ORAL) Take 50 mg by mouth. venlafaxine (EFFEXOR) 37.5 mg tablet Take 37.5 mg by mouth twice daily. aMILoride (MIDAMOR) 5 mg tablet 5 mg once daily. acetaminophen (TYLENOL) 325 mg tablet Take 2 tablets by mouth every 4 hours as needed for Pain (post op total joint pain). senna-docusate (SENOKOT-S) 8.6-50 mg per tablet Take 2 tablets by mouth twice daily. potassium chloride ER (K-DUR, KLOR-CON) 20 mEq tablet Take 1 tablet by mouth twice daily. (Patient taking differently: Take 20 mEq by mouth three times daily. ) melatonin 10 mg tab Take 10 mg by mouth as needed. magnesium oxide 400 mg cap Take 1 capsule by mouth once daily. Twice a week ondansetron orally disintegrating (ZOFRAN ODT) 4 mg disintegrating tablet Take 1 tablet by mouth every 8 hours as needed for Nausea/Vomiting. meclizine (ANTIVERT) 12.5 mg tab as needed. Omeprazole 40 mg capsule Take by mouth once daily. cetirizine-pseudoephedrine (ZYRTEC-D) 5-120 mg per tablet Take 1 tablet by mouth. cholecalciferol (VITAMIN D) 1,000 unit tab tablet Take 5,000 Units by mouth once daily. Ascorbic Acid (VITAMIN C) 1,000 mg tablet Take 1,000 mg by mouth once daily. NORETHINDRONE, CONTRACEPTIVE, ORAL Take 0.35 mg by mouth. Levothyroxine 75 mcg cap Take 75 mcg by mouth once daily. MULTIVITAMIN TAB Take one(1) tablet daily. No current facility-administered medications for this visit. ALLERGIES Allergen Reactions Cymbalta [Duloxetin* Other: See Comments Weight gain Lactose GI Upset Penicillins Hives Shellfish Derived Vomiting REVIEW OF SYSTEMS: PHYSICAL EXAMINATION: MENTAL STATUS: Alert, oriented to person, place an (more content not included)... [facility] 09-14-2022 Instructions Mike Angulo MD - 09/14/2022 4:37 PM EST Increasing Lamictal 50 mg for the first week Then 100 mg every night documented in this encounter [facility] 09-14-2022 History of Presen t illness Narrative Follow up visit Interval history No orders found for this visit on 09/14/22. Headache and vertigo for which she is taking Lamictal 25 mg daily She also had flaring of meniere disease and took oral steroids History Bruno Casanova is a 51 year old female seen for migraine and dizziness She is seeing ENT For meniere disease but referred her to control her migriane As she is having daily headaches Headaches are right temporal throbbing pain,with nausea Dizziness with vertigo Goes to sleep in a dark quiet room Sometimes passing out when she has severe migriane ,no LOC But hard to wake up No previous seizure or family With the migriane she sees floaters and stars black white Or things can be moving ,she has scalp tenderness with headache She takes topamax and gabapentin She previously went to dr pool and tried many headache medications and infusion Saw other neurologists. Headache for 13 years ,after head trauma with LOC few minutes . She started crying when she was talking about the accident but was much happier few minutes earlier She is taking effexor and followed by psychiatrist ,for depression and mood disorder No headache free days ,tried many migriane medications excedrin migraine takes the edge only Chronic daily neck pain Physical therapy and vestibular therapy done many times HISTORY REVIEWED (electronic chart updated): PAST MEDICAL HISTORY Diagnosis Date Bulging lumbar disc and cervical Hypertension Meniere disease Migraines Non-functioning tympanostomy tube 04/21/2013 Otalgia of right ear 04/21/2013 Perforation of right tympanic membrane 07/07/2013 Rhinitis 04/21/2013 Sinusitis 04/21/2013 PAST SURGICAL HISTORY Procedure Laterality Date NONE FAMILY HISTORY Problem Relation Age of Onset Asthma Mother Hypertension Mother Heart disease Mother Diabetes Father Cancer Father Colon Social History Tobacco Use Smoking status: Every Day Packs/day: 0.75 Years: 25.00 Pack years: 18.75 Types: Cigarettes Smokeless tobacco: Never Tobacco comments: currently 1 pack every 3 days; patient cutting back for surgery - not ready to quit Substance Use Topics Alcohol use: Yes Drug use: No Current Outpatient Medications Medication Sig lamoTRIgine (LAMICTAL) 100 mg tablet Take 1 tablet by mouth once daily. methylPREDNISolone (MEDROL, NANCIE,) 4 mg Dose-Pack Take 1 tablet by mouth as directed. As Instructed per package dexAMETHasone 0.1 % ophthalmic solution 3 drops 3 times a day to affected ear as needed vertigo triamterene-hydroCHLOROthiazid e (MAXZIDE-25) 37.5-25 mg per tablet Take 1 tablet by mouth once daily. celecoxib (CELEBREX) 200 mg capsule Take 200 mg by mouth once daily. drospirenone-e.estradiol-lm.FA (BEYAZ) 3-0.02-0.451 mg (24) (4) tab Take 1 tablet by mouth once daily. BIOFLAVONOID, LEMON, BULK, MISC ascorbic acid (BUFFERED VITAMIN C ORAL) Take by mouth. methylsulfonylmethane (MSM ORAL) Take 1,000 mg by mouth. Lysine 500 mg tab Take by mouth. niacin (NIACIN) 100 mg tablet Take 100 mg by mouth daily with breakfast. hyalur ac/chond sul/colg II/AA (HYALURONIC ACID, CHOND-COLLGN, ORAL) Take 50 mg by mouth. venlafaxine (EFFEXOR) 37.5 mg tablet Take 37.5 mg by mouth twice daily. aMILoride (MIDAMOR) 5 mg tablet 5 mg once daily. acetaminophen (TYLENOL) 325 mg tablet Take 2 tablets by mouth every 4 hours as needed for Pain (post op total joint pain). senna-docusate (SENOKOT-S) 8.6-50 mg per tablet Take 2 tablets by mouth twice daily. potassium chloride ER (K-DUR, KLOR-CON) 20 mEq tablet Take 1 tablet by mouth twice daily. (Patient taking differently: Take 20 mEq by mouth three times daily. ) melatonin 10 mg tab Take 10 mg by mouth as needed. magnesium oxide 400 mg cap Take 1 capsule by mouth once daily. Twice a week ondansetron orally disintegrating (ZOFRAN ODT) 4 mg disintegrating tablet Take 1 tablet by mouth every 8 hours as needed for Nausea/Vomiting. meclizine (ANTIVERT) 12.5 mg tab as needed. Omeprazole 40 mg capsule Take by mouth once daily. cetirizine-pseudoephedrine (ZYRTEC-D) 5-120 mg per tablet Take 1 tablet by mouth. cholecalciferol (VITAMIN D) 1,000 unit tab tablet Take 5,000 Units by mouth once daily. Ascorbic Acid (VITAMIN C) 1,000 mg tablet Take 1,000 mg by mouth once daily. NORETHINDRONE, CONTRACEPTIVE, ORAL Take 0.35 mg by mouth. Levothyroxine 75 mcg cap Take 75 mcg by mouth once daily. MULTIVITAMIN TAB Take one(1) tablet daily. No current facility-administered medications for this visit. ALLERGIES Allergen Reactions Cymbalta [Duloxetin* Other: See Comments Weight gain Lactose GI Upset Penicillins Hives Shellfish Derived Vomiting REVIEW OF SYSTEMS: PHYSICAL EXAMINATION: MENTAL STATUS: Alert, oriented to person, place and time and Follows commands CRANIAL NERVES: EOM's intact, Visual king intact to confrontation, Extraocular movements intact, and Facial sensation intact MOTOR: No drift MOTOR STRENGTH: Upper and lower extremity 5/5 bilaterally REFLEXES: UE and LE reflexes are equal and reactive SENSATION: Intact light touch COORDINATION: Finger-to- nose-finger intact bilaterally GAIT: Normal-based ASSESSMENT: No diagnosis found. Vestibular migraine and intractable headache Post traumatic headache Chronic daily headache PLAN: No orders found for this visit on 09/14/22. Lamictal 25 mg for vestibular migraine Patient Instructions Increasing Lamictal 50 mg for the first week Then 100 mg every night Spent total of 30 minutes for this follow up visit Patient care ,tests results and plan of care Mike Angulo MD documented in this encounter [facility] 06-09-2022 Miscellaneous Notes Formattin g of this note might be different from the original. This refill request is already pended to provider in previous encounter. CHANTAL Decker RN June 09, 2022 9:01 AM documented in this encounter [facility] 06-08-2022 Miscellaneous Notes Formattin g of this note is different from the original. Provider: Dr. Angulo patient requesting refill via [employer] . Please E-Scribe Last OV: 04-06-[address] Angulo Future OV: 08-09-[address] Angulo Last prescribed: 05-08-22 Requested Prescriptions Pending Prescriptions Disp Refills lamoTRIgine (LAMICTAL) 25 mg tablet 30 tablet 3 Sig: Take 1 tablet by mouth once daily. Request sent to provider to review Lu Mcelroy RN Patient has been identified by name and date of : Yes Requested Prescriptions Pending Prescriptions Disp Refills lamoTRIgine (LAMICTAL) 25 mg tablet 30 tablet 0 Sig: Take 1 tablet by mouth once daily. RX INSTRUCTIONS: Patient aware RX will be sent to pharmacy. No need to notify patient. Melody Reed documented in this encounter [facility] 04-06-2022 History of Presen t illness Narrative New office NOTE Headache Bruno Casanova is a 51 year old female seen for migraine and dizziness She is seeing ENT For meniere disease but referred her to control her migriane As she is having daily headaches Headaches are right temporal throbbing pain,with nausea Dizziness with vertigo Goes to sleep in a dark quiet room Sometimes passing out when she has severe migriane ,no LOC But hard to wake up No previous seizure or family With the migriane she sees floaters and stars black white Or things can be moving ,she has scalp tenderness with headache She takes topamax and gabapentin She previously went to dr pool and tried many headache medications and infusion Saw other neurologists. Headache for 13 years ,after head trauma with LOC few minutes . She started crying when she was talking about the accident but was much happier few minutes earlier She is taking effexor and followed by psychiatrist ,for depression and mood disorder No headache free days ,tried many migriane medications excedrin migraine takes the edge only Chronic daily neck pain Physical therapy and vestibular therapy done many times HISTORY REVIEWED (electronic chart updated): PAST MEDICAL HISTORY Diagnosis Date Bulging lumbar disc and cervical Hypertension Meniere disease Migraines Non-functioning tympanostomy tube 04/21/2013 Otalgia of right ear 04/21/2013 Perforation of right tympanic membrane 07/07/2013 Rhinitis 04/21/2013 Sinusitis 04/21/2013 PAST SURGICAL HISTORY Procedure Laterality Date NONE FAMILY HISTORY Problem Relation Age of Onset Asthma Mother Hypertension Mother Heart disease Mother Diabetes Father Cancer Father Colon Social History Tobacco Use Smoking status: Every Day Packs/day: 0.75 Years: 25.00 Pack years: 18.75 Types: Cigarettes Smokeless tobacco: Never Tobacco comments: currently 1 pack every 3 days; patient cutting back for surgery - not ready to quit Substance Use Topics Alcohol use: Yes Drug use: No Current Outpatient Medications Medication Sig topiramate (TOPAMAX) 100 mg tablet Take 1 tablet by mouth every morning AND 2 tablets daily at bedtime. methylPREDNISolone (MEDROL, NANCIE,) 4 mg Dose-Pack Take 1 tablet by mouth as directed. As Instructed per package dexAMETHasone 0.1 % ophthalmic solution 3 drops 3 times a day to affected ear as needed vertigo triamterene-hydroCHLOROthiazid e (MAXZIDE-25) 37.5-25 mg per tablet Take 1 tablet by mouth once daily. celecoxib (CELEBREX) 200 mg capsule Take 200 mg by mouth once daily. drospirenone-e.estradiol-lm.FA (BEYAZ) 3-0.02-0.451 mg (24) (4) tab Take 1 tablet by mouth once daily. BIOFLAVONOID, LEMON, BULK, MISC ascorbic acid (BUFFERED VITAMIN C ORAL) Take by mouth. methylsulfonylmethane (MSM ORAL) Take 1,000 mg by mouth. Lysine 500 mg tab Take by mouth. niacin (NIACIN) 100 mg tablet Take 100 mg by mouth daily with breakfast. hyalur ac/chond sul/colg II/AA (HYALURONIC ACID, CHOND-COLLGN, ORAL) Take 50 mg by mouth. venlafaxine (EFFEXOR) 37.5 mg tablet Take 37.5 mg by mouth twice daily. aMILoride (MIDAMOR) 5 mg tablet 5 mg once daily. acetaminophen (TYLENOL) 325 mg tablet Take 2 tablets by mouth every 4 hours as needed for Pain (post op total joint pain). senna-docusate (SENOKOT-S) 8.6-50 mg per tablet Take 2 tablets by mouth twice daily. potassium chloride ER (K-DUR, KLOR-CON) 20 mEq tablet Take 1 tablet by mouth twice daily. (Patient taking differently: Take 20 mEq by mouth three times daily. ) melatonin 10 mg tab Take 10 mg by mouth as needed. magnesium oxide 400 mg cap Take 1 capsule by mouth once daily. Twice a week ondansetron orally disintegrating (ZOFRAN ODT) 4 mg disintegrating tablet Take 1 tablet by mouth every 8 hours as needed for Nausea/Vomiting. meclizine (ANTIVERT) 12.5 mg tab as needed. Omeprazole 40 mg capsule Take by mouth once daily. cetirizine-pseudoephedrine (ZYRTEC-D) 5-120 mg per tablet Take 1 tablet by mouth. cholecalciferol (VITAMIN D) 1,000 unit tab tablet Take 5,000 Units by mouth once daily. Ascorbic Acid (VITAMIN C) 1,000 mg tablet Take 1,000 mg by mouth once daily. NORETHINDRONE, CONTRACEPTIVE, ORAL Take 0.35 mg by mouth. gabapentin (NEURONTIN) 300 mg capsule Take 2 capsules by mouth three times daily. (Patient taking differently: Take 600 mg by mouth twice daily. ) Levothyroxine 75 mcg cap Take 75 mcg by mouth once daily. MULTIVITAMIN TAB Take one(1) tablet daily. No current facility-administered medications for this visit. ALLERGIES Allergen Reactions Cymbalta [Duloxetin* Other: See Comments Weight gain Lactose GI Upset Penicillins Hives Shellfish Derived Vomiting REVIEW OF SYSTEMS: Review of Systems Constitutional Positive for Fatigue Eyes: Negative Hent Positive for Hearing Loss and Tinnitus Cardiovascular Positive for Leg pain with walking Respiratory Positive for SOB with exertion and Snoring GI: Negative : Negative Endocrine Positive for Excessive Thirst and Menstrual Cycle Irregularities Musculoskeletal Positive for Back Pain, Joint Swelling, Stiff Joints and Muscle Pain Integumentary: Negative Heme/Lymph Positive for Easy Bruising and Swelling of Arm or Leg Allergy/Immunologic Positive for Nasal Congestion Neurologic Positive for Headache, Numbness/Tingling, Weakness and Slurred Speech Psychiatric Positive for Depression and Anxiety Patient's Review of Systems has been reviewed with the patient and updated as appropriate. PHYSICAL EXAMINATION: MENTAL STATUS: Alert, oriented to person, place and time and Follows commands CRANIAL NERVES: EOM's intact, Visual king intact to confrontation, Extraocular movements intact, and Facial sensation intact MOTOR: No drift MOTOR STRENGTH: Upper and lower extremity 5/5 bilaterally REFLEXES: UE and LE reflexes are equal and reactive SENSATION: Intact light touch COORDINATION: Finger-to- nose-finger intact bilaterally GAIT: Normal-based ASSESSMENT: (H81.01) Meniere's disease of right ear (G43.809) Vestibular migraine Vestibular migraine and intractable headache Post traumatic headache Chronic daily headache PLAN: Office Visit on 04/06/22 CONSULT TO NEUROLOGY EPIL EEG ROUTINE Lamictal 25 mg for vestibular migraine Follow up visit after trial of lamictal There are no Patient Instructions on file for this visit. I spent a total of 60 minutes on the date of the service which included [id number] patient care, completing clinical documentation, obtaining and/or reviewing separately obtained history, performing a medically appropriate examination, counseling and educating the patient/family/caregiver, and ordering medications, tests, or procedures Mike Angulo MD documented in this encounter [facility] 02-07-2022 Instructions Cirilo Gotti - 02/07/2022 12:14 PM EDT 1. Increase Topamax dosage for migraines. Hold until completing oral steroids. 2. Order for blood work placed 3. Establish with migraine neurologist. . documented in this encounter [facility] 02-07-2022 History of Presen t illness Narrative Staff Physician Comments: I testify that I personally interviewed and examined the patient. I confirm the below exam findings, assessment and plan were my own and resident/SUPPLY PERSON/scribe was acting as SCRIBE. Monica Mortensen MD, FACS Section Head, Otology/Neurotology/Skull Base Surgery [employer] Middleware Developer, Cochlear Implant Program Head and Neck [place] [facility] History of Present Illness Ms. BRUNO CASANOVA is a 51 year old female with history of multiple tubes retuning for new drop attacks in setting of AD Meniere Disease Since last seen, August, nerve blockers stopped working for back pain. Had back surgery December 30. January 13 - new vertigo attack and new daily migraines. At kitchen sink, immediate vertigo and disorientation felt like she was being pulled to the floor. Grabbed onto sink, no direct or heavy fall. Aural fullness has worsened AD. Not established with migraine neurologist. Feels constantly unbalanced, in respect to equilibrium and steadiness. Finds she needs to use a cane now for extra stability. Blood work done every 6 month . ALLERGIES Allergen Reactions Cymbalta [Duloxetin* Other: See Comments Weight gain Lactose GI Upset Penicillins Hives Shellfish Derived Vomiting Current Outpatient Medications on File Prior to Visit Medication Sig triamterene-hydroCHLOROthiazid e (MAXZIDE-25) 37.5-25 mg per tablet Take 1 tablet by mouth once daily. predniSONE (DELTASONE) 10 mg tablet Take by mouth four (4) tabs x3 days; then three (3) tabs x3days; then two (2) tabs x3 days; then one (1) tab a day x3 days celecoxib (CELEBREX) 200 mg capsule Take 200 mg by mouth once daily. drospirenone-e.estradiol-lm.FA (BEYAZ) 3-0.02-0.451 mg (24) (4) tab Take 1 tablet by mouth once daily. dexAMETHasone 0.1% 0.1 % ophthalmic solution 3 drops 3 times a day to affected ear as needed vertigo BIOFLAVONOID, LEMON, BULK, MISC ascorbic acid (BUFFERED VITAMIN C ORAL) Take by mouth. methylsulfonylmethane (MSM ORAL) Take 1,000 mg by mouth. Lysine 500 mg tab Take by mouth. niacin (NIACIN) 100 mg tablet Take 100 mg by mouth daily with breakfast. hyalur ac/chond sul/colg II/AA (HYALURONIC ACID, CHOND-COLLGN, ORAL) Take 50 mg by mouth. venlafaxine (EFFEXOR) 37.5 mg tablet Take 37.5 mg by mouth twice daily. aMILoride (MIDAMOR) 5 mg tablet 5 mg once daily. acetaminophen (TYLENOL) 325 mg tablet Take 2 tablets by mouth every 4 hours as needed for Pain (post op total joint pain). senna-docusate (SENOKOT-S) 8.6-50 mg per tablet Take 2 tablets by mouth twice daily. potassium chloride ER (K-DUR, KLOR-CON) 20 mEq tablet Take 1 tablet by mouth twice daily. (Patient taking differently: Take 20 mEq by mouth three times daily. ) melatonin 10 mg tab Take 10 mg by mouth as needed. magnesium oxide 400 mg cap Take 1 capsule by mouth once daily. Twice a week ondansetron orally disintegrating (ZOFRAN ODT) 4 mg disintegrating tablet Take 1 tablet by mouth every 8 hours as needed for Nausea/Vomiting. meclizine (ANTIVERT) 12.5 mg tab as needed. Omeprazole 40 mg capsule Take by mouth once daily. cetirizine-pseudoephedrine (ZYRTEC-D) 5-120 mg per tablet Take 1 tablet by mouth. cholecalciferol (VITAMIN D) 1,000 unit tab tablet Take 5,000 Units by mouth once daily. Ascorbic Acid (VITAMIN C) 1,000 mg tablet Take 1,000 mg by mouth once daily. NORETHINDRONE, CONTRACEPTIVE, ORAL Take 0.35 mg by mouth. gabapentin (NEURONTIN) 300 mg capsule Take 2 capsules by mouth three times daily. (Patient taking differently: Take 600 mg by mouth twice daily. ) Levothyroxine 75 mcg cap Take 75 mcg by mouth once daily. topiramate (TOPAMAX) 100 mg tablet Take 100 mg by mouth twice daily. MULTIVITAMIN TAB Take one(1) tablet daily. No current facility-administered medications on file prior to visit. Objective: Last menstrual period 06/26/2018. Appearance: Non-syndromic, cooperative and calm Communication: Voice has adequate volume; there is no stridor or aesthenia Ears: AD Stable 40% posterior marginal perforation. No otorrhea or informatory changes. External auditory canal dry, clean; tympanic membrane intact, clear, mobile Neuro/Psych.: Alert and Oriented x 3 Assessment: (H81.01) Meniere's disease of right ear (primary encounter diagnosis) (G43.809) Vestibular migraine (H72.91) Perforation of right tympanic membrane (R26.89) Imbalance (Z79.899) oysterman current use of diuretic New drop attack, sound like reactivation of Meniere Disease. However picture convoluted by uncontrolled migraines. Plan: 1. Increase Topamax dosage after completing PO Medrol dose pack. . 2. Establish with migraine neurologist. 3. BMP Orders: Office Visit on 02/07/22 BASIC METABOLIC PNL CONSULT TO NEUROLOGY topiramate (TOPAMAX) 100 mg tablet methylPREDNISolone (MEDROL, NANCIE,) 4 mg Dose-Pack dexAMETHasone 0.1 % ophthalmic solution triamterene-hydroCHLOROthiazid e (MAXZIDE-25) 37.5-25 mg per tablet By signing my name below I, Cirilo Gotti attest that this documentation has been prepared under the direction of and in the presence of Dr Mortensen Electronically signed: Cirilo Means February 07, 2022 12:21 PM Medical Decision Making: Problems: Moderate: 2+ stable chronic illnesses Data: Unique test(s) ordered: 1 Risk: Moderate: Drug management Medical Decision Making Level: 4 - Moderate documented in this encounter [facility] 02-10-2021 History of Presen t illness Narrative This is a 51-year-old female who comes today for an annual exam.She was last seen in February 2021. Her last Pap in 2019 was negative, high risk HPV negative.She had a spinal cord stimulator placed October 2021.Her cycles are irregular, consistent with the perimenopause. She is currently on her cycle that started on May 29 but the previous one was about 3 months ago. She was on Slynd but stopped due to breakthrough bleeding.She has no clots or pain. No discharge, no change in bowel habits or dysuria.We discussed occasional stress incontinence symptoms.She has her colonoscopy planned for the near future. [facility] Work Phone: 01-12-2020 History of Presen t illness Narrative This is a 50-year-old female who comes today for an annual exam.Her last visit was in January 2020. Her Pap smear was negative, high-risk HPV negative.She is not sexually active.She has been using Slynd for contraception and cycle control. She found it was also helpful for her M ni re's disease but now has noticed some increased symptoms.She did notice spotting all December and January .She currently is wearing a boot on her right foot due to a fracture. [facility] Work Phone: documented as of this encounter (statuses as of 04/03/2022) [facility]2018 History of Past illness Narrative* Problem Noted Date Resolved Date S/P total hip arthroplasty 11/06/201711/08 documented as of this encounter (statuses as of 05/14/2022) [facility] History of Past illness Narrative* Problem Noted Date Resolved Date S/P total hip arthroplasty 11/06/201711/08 documented as of this encounter (statuses as of 06/11/2022) [address]27-2018 History of Past illness Narrative* Problem Noted Date Resolved Date S/P total hip arthroplasty 11/06/201711/08 documented as of this encounter (statuses as of 06/11/2022) [address]27-2018 History of Past illness Narrative* Problem Noted Date Resolved Date S/P total hip arthroplasty 11/06/201711/08 documented as of this encounter (statuses as of 10/03/2022) [address]27-2018 History of Past illness Narrative* Problem Noted Date Resolved Date S/P total hip arthroplasty 11/06/201711/08 documented as of this encounter (statuses as of 11/03/2022) [address]27-2018 History of Past illness Narrative* Problem Noted Date Resolved Date S/P total hip arthroplasty 11/06/201711/08 documented as of this encounter (statuses as of 11/06/2022) [address]27-2018 History of Past illness Narrative* Problem Noted Date Resolved Date S/P total hip arthroplasty 11/06/201711/08 documented as of this encounter (statuses as of 11/11/2022) [address]27-2018 History of Past illness Narrative* Problem Noted Date Resolved Date S/P total hip arthroplasty 11/06/201711/08 documented as of this encounter (statuses as of 11/23/2022) [address]27-2018 History of Past illness Narrative* Problem Noted Date Resolved Date S/P total hip arthroplasty 11/06/201711/08 documented as of this encounter (statuses as of 01/25/2023) [address]-2018 History of Past illness Narrative* Problem Noted Date Diagnosed Date Resolved Date S/P total hip arthroplasty 11/06/2017 0 11/08/2017 documented as of this encounter (statuses as of 03/28/2023) [facility] Diagnosis Meniere's disease of right ear- Primary Meniere's disease, unspecified Vestibular migraine Perforation of right tympanic membrane Perforation of tympanic membrane, unspecified Imbalance Abnormality of gait USP current use of diuretic [facility] Diagnosis Vestibular migraine- Primary Syncope and collapse [facility] Diagnosis Vestibular migraine- Primary [facility] Diagnosis Encounter for screening for malignant neoplasm of colon- Primary Special screening for malignant neoplasms, colon documented in this encounter [facility] note* Diagnosis Encounter for screening colonoscopy- Primary Special screening for malignant neoplasms, colon Encounter for screening for malignant neoplasm of colon Special screening for malignant neoplasms, colon [facility] Diagnosis Abdominal migraine, intractable- Primary Variants of migraine, not elsewhere classified, with intractable migraine, so stated, without mention of status migrainosus documented in this encounter [facility] for referral (narrative)* Outpatient Procedure (Routine) - Closed Specialty Diagnoses / Procedures Referred By America watson Referred To Contact [facility] Diagnoses Vestibular migraine Syncope and collapse Procedures EPIL EEG ROUTINE ELECTROENCEPHALOGRAM REC COMA/SLEEP ONLY Mike Angulo MD [address] [place] [address] [place] [address] Referral ID Status Reason Start Date Expiration Date V isits Requested Visits Authorized [id number] Closed Auto-Generate d Referral 04/06/2022 04/06/2023 1 1 [facility] for referral (narrative)* Outpatient Procedure (Routine) - Authorized Specialty Diagnoses / Procedures Referred By America watson Referred To Contact Diagnoses Encounter for screening for malignant neoplasm of colon Procedures COLONOSCOPY DIAGNOSTIC COLONOSCOPY FLX DX W/COLLJ SPEC WHEN PFRMD Travis Frost MD [address] [place] [address] [facility] [address] [place] [address] Referral ID Status Reason Start Date Expiration Date Visits Requested Visits Authorized [id number] Authorized Auto-Generat ed Referral 11/06/2022 11/07/2023 1 1 [facility] for referral (narrative)* Outpatient Procedure (Routine) - Closed Specialty Diagnoses / Procedures Referred By America watson Referred To Contact Diagnoses Encounter for screening for malignant neoplasm of colon Procedures COLONOSCOPY DIAGNOSTIC COLONOSCOPY FLX DX W/COLLJ SPEC WHEN Travis Isaac MD [address] [place] [address] [facility] [address] [place] [address] Referral ID Status Reason Start Date Expiration Date V isits Requested Visits Authorized [id number] Closed Auto-Generate d Referral 11/06/2022 11/07/2023 1 1 [facility] for visit Narrative* Outpatient Procedure (Routine) - Closed Specialty Diagnoses / Procedures Referred By America watson Referred To Contact Diagnoses Encounter for screening for malignant neoplasm of colon Procedures COLONOSCOPY DIAGNOSTIC COLONOSCOPY FLX DX W/COLLJ SPEC WHEN Travis Isaac MD [address] [place] [address] [facility] [address] [place] [address] Referral ID Status Reason Start Date Expiration Date V isits Requested Visits Authorized [id number] Closed Auto-Generate d Referral 11/06/2022 11/07/2023 1 1 [facility] Family History No Family History Records Found Mother Name Dates Details Family history of hypertensi on(V17.49, Z82.49) Status:Active Father Name Dates Details Family history of hypertensi on(V17.49, Z82.49) Status:Active Family history of malignant neoplasm(V16.9, Z80.9) Status:Active Family history of diabetes m ellitus(V18.0, Z83.3) Status:Active Mother Name Dates Details Family history of hypertensi on(V17.49, Z82.49) Status:Active Father Name Dates Details Family history of hypertensi on(V17.49, Z82.49) Status:Active Family history of malignant neoplasm(V16.9, Z80.9) Status:Active Family history of diabetes m ellitus(V18.0, Z83.3) Status:Active Mother Name Dates Details Family history of hypertensi on(V17.49, Z82.49) Status:Active Father Name Dates Details Family history of hypertensi on(V17.49, Z82.49) Status:Active Family history of malignant neoplasm(V16.9, Z80.9) Status:Active Family history of diabetes m ellitus(V18.0, Z83.3) Status:Active Unknown Family Member Name Dates Details Family history of hypertensi on: Mother, Father(V17.49, Z82.49) Status:Active Family history of malignant neoplasm: Father(V16.9, Z80.9) Status:Active Family history of diabetes m ellitus: Father(V18.0, Z83.3) Status:Active Unknown Family Member Name Dates Details Family history of hypertensi on: Mother, Father(V17.49, Z82.49) Status:Active Family history of malignant neoplasm: Father(V16.9, Z80.9) Status:Active Family history of diabetes m ellitus: Father(V18.0, Z83.3) Status:Active Unknown Family Member Name Dates Details Family history of hypertensi on: Mother, Father(V17.49, Z82.49) Status:Active Family history of malignant neoplasm: Father(V16.9, Z80.9) Status:Active Family history of diabetes m ellitus: Father(V18.0, Z83.3) Status:Active Unknown Family Member Name Dates Details Family history of hypertensi on: Mother, Father(V17.49, Z82.49) Status:Active Family history of malignant neoplasm: Father(V16.9, Z80.9) Status:Active Family history of diabetes m ellitus: Father(V18.0, Z83.3) Status:Active Unknown Family Member Name Dates Details Family history of hypertensi on: Mother, Father(V17.49, Z82.49) Status:Active Family history of malignant neoplasm: Father(V16.9, Z80.9) Status:Active Family history of diabetes m ellitus: Father(V18.0, Z83.3) Status:Active Summary Purpose Advance Directives No Advanced Directives Records FoundDocuments on File Type Date Recorded Patient Ruffler Expl anation Advance Directive(s) 11/06/2017 6:32 AM Documents on File Type Date Recorded Patient Ruffler Expl anation Advance Directive(s) 11/06/2017 6:32 AM 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 cb Reason for Referral Specialty Diagnoses / Procedures Referred By America t Referred To Contact Neurology Diagnoses Meniere's disease of right ear Vestibular migraine Procedures CONSULT TO NEUROLOGY OFFICE/OUTPATIENT [facility] 60-74 MINUTES Monica Mortensen MD [address] [place] [address] Referral ID Status Reason Start Date Expiration Date Visits Requested Visits Authorized [id number] Authorized PCP Requested Referral 02/07/2022 02/07/2023 1 1 Medications Administered Section Inactive Administered Medications - up to 3 most recent administrations Medication Order MAR Action Action Date Dose Rate Site lactated ringers iv infusion 30 mL/hr, INTRAVENOUS, CONTINUOUS, Starting on Sun11/10/22 at 1200, Until Sun11/10/22 at 1307, Preprocedure Continued by Anesthesia 11/10/2022 12:38 PM EDT 30 mL/hr Additional Source Comments INFORMATION SOURCE (unrecogn ized section and content) DATE CREATED AUTHOR AUTHOR'S ORGANIZ ATION 03/25/2021 [facility] DATE CREATED AUTHOR AUTHOR'S ORGANIZ ATION 09/22/2021 [facility] DATE CREATED AUTHOR AUTHOR'S ORGANIZ ATION 06/06/2022 [facility] DATE CREATED AUTHOR AUTHOR'S ORGANIZ ATION 10/15/2022 [facility] DATE CREATED AUTHOR AUTHOR'S ORGANIZ ATION 11/15/2022 [facility] DATE CREATED AUTHOR AUTHOR'S ORGANIZ ATION 09/01/2023 [facility] Source Comments (unrecognize d section and content) In the event this informatio n is protected by the Federal Confidentiality of Alcohol and Drug Abuse Patient Records regulations: The Federal rules restrict any use of the information to criminally investigate or prosecute any alcohol or drug abuse patient.[facility] the event this information is protected by the Federal Confidentiality of Alcohol and Drug Abuse Patient Records regulations: The Federal rules restrict any use of the information to criminally investigate or prosecute any alcohol or drug abuse patient.[facility] the event this information is protected by the Federal Confidentiality of Alcohol and Drug Abuse Patient Records regulations: The Federal rules restrict any use of the information to criminally investigate or prosecute any alcohol or drug abuse patient.[facility] the event this information is protected by the Federal Confidentiality of Alcohol and Drug Abuse Patient Records regulations: The Federal rules restrict any use of the information to criminally investigate or prosecute any alcohol or drug abuse patient.[facility] the event this information is protected by the Federal Confidentiality of Alcohol and Drug Abuse Patient Records regulations: The Federal rules restrict any use of the information to criminally investigate or prosecute any alcohol or drug abuse patient.[facility] the event this information is protected by the Federal Confidentiality of Alcohol and Drug Abuse Patient Records regulations: The Federal rules restrict any use of the information to criminally investigate or prosecute any alcohol or drug abuse patient.[facility] the event this information is protected by the Federal Confidentiality of Alcohol and Drug Abuse Patient Records regulations: The Federal rules restrict any use of the information to criminally investigate or prosecute any alcohol or drug abuse patient.[facility] the event this information is protected by the Federal Confidentiality of Alcohol and Drug Abuse Patient Records regulations: The Federal rules restrict any use of the information to criminally investigate or prosecute any alcohol or drug abuse patient.[facility] the event this information is protected by the Federal Confidentiality of Alcohol and Drug Abuse Patient Records regulations: The Federal rules restrict any use of the information to criminally investigate or prosecute any alcohol or drug abuse patient.[facility] the event this information is protected by the Federal Confidentiality of Alcohol and Drug Abuse Patient Records regulations: The Federal rules restrict any use of the information to criminally investigate or prosecute any alcohol or drug abuse patient.[facility] the event this information is protected by the Federal Confidentiality of Alcohol and Drug Abuse Patient Records regulations: The Federal rules restrict any use of the information to criminally investigate or prosecute any alcohol or drug abuse patient.[facility] Reason for Visit (unrecogniz ed section and content) Reason Comments Consult Menieres disease of right ear, vestibular migraines Specialty Diagnoses / Procedures Referred By America watson Referred To Contact Neurology Diagnoses Meniere's disease of right ear Vestibular migraine Procedures CONSULT TO NEUROLOGY OFFICE/OUTPATIENT [facility] 60-74 MINUTES Monica Mortensen MD [address] [place] [address] Referral ID Status Reason Start Date Expiration Date V isits Requested Visits Authorized [id number] Closed PCP Requested Referral 02/07/2022 02/07/2023 1 1 Reason Comments Refill Request Reason Onset Date Comments Refill Request 06/08/2022 Reason Comments Follow Up Reason Comments mv november Reason Comments Consult colonoscopy Reason Comments 11/10/2022 [place]ON [place]IN Reason Onset Date Comments Refill Request 01/25/2023 Care Teams (unrecognized sec tion and content) 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 [place] [address] [place] [address] PCP - General 06/04/09 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 Specialty [place] [address] [place] [address] PCP - General 06/04/09 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 Specialty [place] [address] [place] [address] PCP - General 06/04/09 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 Specialty [place] [address] [place] [address] PCP - General 06/04/09 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 Specialty [place] [address] [place] [address] PCP - General 06/04/09 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 Specialty [place] [address] [place] [address] PCP - General 06/04/09 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 Specialty [place] [address] [place] [address] PCP - General 06/04/09 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 Specialty [place] [address] [place] [address] PCP - General 06/04/09 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 Specialty [place] [address] [place] [address] PCP - General 06/04/09 FOR RECORDS PERTAINING TO PATIENTS WHO ARE OR HAVE BEEN ENROLLED IN A CHEMICAL DEPENDENCY/SUBSTANCEABUSE PROGRAM, SOME INFORMATION MAY BE OMITTED. This clinical summary was aggregated from multiple sources. Caution should be exercised in using it in the provision of clinical care. This summary normalizes information from multiple sources, and as a consequence, information in this document may materially change the coding, format and clinical context of patient data. In addition, data may be omitted in some cases. CLINICAL DECISIONS SHOULD BE BASED ON THE PRIMARY CLINICAL RECORDS. [facility] Center[facility]. provides no warranty or guarantee of the accuracy or completeness of information in this document.
[2023-09-03 06:12] LABS: Internal QC Validated? YES +Cl - CLEAR BKGD; Pregnancy, Urine Negative Negative
[2023-09-03] MEDS: Acetaminophen 500 MG Tablet 1000 MG PO ×2 (06:20→22:27)
[2023-09-03] MEDS: Lactated Ringers 1,000 ML 15 ML IV (06:20)
[2023-09-03] MEDS: Magnesium 1 GM over 15 mins IV (06:20)
--- NOTE | 2023-09-03 06:30 | RAD_ITS ---
PROCEDURE: 360 degree fusion L2-S1 level. DATE OF EXAMINATION: September 03, 2023. INDICATION: Female, 52 years old. Chronic low back pain RAD/L/S Spine Min 4 Views IMPRESSION: Intraoperative imaging provided for 360 degree fusion from the L2-S1 level. Electronically Signed: Epi Villalta MD at 8:35 EST ,
[2023-09-03 06:35] LABS: Bedside Glucose 115 mg/dL (74-106)
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
[2023-09-03] MEDS: Clindamycin 900 MG/50 ML BAG 75 MG IV ×3 (08:22→22:28)
--- NOTE | 2023-09-03 15:43 | PCM.OPRPT ---
Report of Operation Date of Procedure: 09/03/23 Pre-Operative Diagnosis: L5-S1 spondylolisthesis, degenerative scoliosis, L2-S1 disc degeneration with foraminal stenosis Post-Operative Diagnosis: same Surgery/Procedure Performed:: L2-S1 oblique lumbar interbody fusion (OLIF), minimally invasive right sided approach, lateral decubitus: ? L5-S1 anterolateral spinal fusion 90655 ? L4-5 anterolateral fusion 44298/51 . L3-4 anterolateral fusion 99918/51 . L2-3 anterolateral fusion 68933/51 ? L5-S1 insertion of cage 64973 ? L4-5 insertion of cage 20996/51 . L3-4 insertion of cage 82153/51 . L2-3 insertion of cage 81131/51 Surgeon: Dr. Lipscomb, Dr. Lao Co-surgeons Type of Anesthesia: General Description of Procedure: HPI: Patient is a 52-year-old female with multilevel lumbar degenerative disc disease who was evaluated by Dr. Lipscomb and felt to be appropriate for oblique approach interbody fusion of L2-S1. Vascular surgery services are obtained to assist with exposure. Description procedure: Upon obtaining informed consent and verification correct patient procedure site patient taken to the operating where she was placed under general anesthesia. She was then positioned prepped and draped in usual sterile fashion and timeout was performed. Fluoroscopy was used to keiko the skin overlying the levels of intended intervention. Oblique incision was then made 2 fingerbreadths superior to the iliac crest and Bovie electrocautery was dissect down through the subcutaneous tissue and self-retaining retractors put in position. The fascia was then incised and a muscle-sparing dissection through the external oblique, internal oblique, and transversalis muscles. Retractors were then moved deeper into the wound and exposure of the retroperitoneal space obtained. Blunt dissection was then used to dissect into the retroperitoneal space to the psoas muscle. The Synframe self-retaining retractor was then brought on the field and placed into position. Retractor blades were then placed in the retroperitoneal exposure and various repositions performed in order to expose the anterior surface of the psoas muscle. The anterior surface the psoas was then dissected combination of blunt and Bovie dissection allowing more posterior retraction exposing the lateral surface of the lumbar spine. Initial dissection was carried down to the L4-L5 disc space and then carried distally. The iliolumbar vein was identified and then dissected free circumferentially and then ligated with silk tie, medium clip, Endoloops and divided. This allowed further exposure distally and more retraction of the vena cava and its associated soft tissue. Once the L5-S1 disc space was exposed Dr. Lipscomb performed the discectomy and placement of implant which she will describe in further detail. After this was completed further dissection cephalad was performed exposing the L4-L5 disc space followed by discectomy further described by Dr. Lipscomb. Gelfoam was then placed within the disc space and dissection carried more cephalad to the L3-L4 disc space and the L2-L3 disc space. Discectomy and cage implant was then performed of the L2-L3, followed by L3-L4 all of which would be described to Dr. Lipscomb in further detail. Finally implant of the cage into the L4-L5 disc space was performed. After completion imaging revealed satisfactory implant placement the wound was inspected for hemostasis and then the retractors removed. The muscle was then reapproximated with a running 0 Vicryl followed by 3-0 Vicryl for Monocryl for the skin. At the conclusion of this portion the patient was repositioned for posterior approach which Dr. Lipscomb will dictate separately.
[2023-09-03] MEDS: Ropivacaine 0.5% 30 ML Vial (15:48)
--- NOTE | 2023-09-03 15:53 | OP.PCM_ITS ---
Report of Operation Date of Procedure: 09/03/23 Description of Surgical Findings:: Preoperative diagnosis: L5-S1 spondylolisthesis, degenerative scoliosis, L2-S1 disc degeneration with foraminal stenosis Postoperative diagnosis: Same Name of procedures L2-S1 oblique lumbar interbody fusion (OLIF), minimally invasive right sided approach, lateral decubitus: ? L5-S1 anterolateral spinal fusion 20736 ? L4-5 anterolateral fusion 53666/51 . L3-4 anterolateral fusion 49583/51 . L2-3 anterolateral fusion 52169/51 ? L5-S1 insertion of cage 94950 ? L4-5 insertion of cage 38878/51 . L3-4 insertion of cage 28434/51 . L2-3 insertion of cage 34974/51 ? Bone graft aspirate iliac crest through a separate incision 11507 . Bone graft aspirate vertebral body ? Allograft cancellous chips [id number] Attending Surgeon: Dr. Ed Lipscomb Co-surgeon: Dr. Eugene Lao Estimated blood loss: 450 mL total Anesthesia: General Complications: None Indications: Patient is a 52-year-old pleasant lady who has had a long history of low back pain and right lower extremity radiation, neurogenic claudication. Xrays & MRI revealed L5-S1 spondylolisthesis, lumbar degenerative scoliosis, L2-S1 disc degeneration with foraminal stenosis. After undergoing a prolonged period of nonoperative treatment, the patient elected to undergo surgical decompression & fusion. All surgical options were discussed with the patient including anterior and posterior approaches. All risks and benefits associated with the procedure were explained to the patient. The risks include but are not limited to infection, bleeding, injury to nerves and vessels including major vessels like IVC and aorta, persistent paresthesia, persistent pain, dural tear, need for further procedures, adjacent segment degeneration, pseudoarthrosis, hardware failure, retrograde ejaculation, paralytic ileus, etc. Procedure: The patient was identified in the preoperative holding suite using Unique patient identifiers. Skin was marked, consent was reviewed, and all questions were answered. The patient was then brought back to the operative room. A surgical timeout was performed to make sure correct procedure was being done on the correct patient and all operative room staff were on the same page. General endotracheal anesthesia was then given to the patient. Morillo catheter was inserted. The patient was then carefully positioned in left lateral decubitus position with the right side up on a regular OR table. Axillary roll was placed and all bony prominences were well- padded. Hip positioners were placed in the posterior buttocks and anterior sternal area. The surgical area was prepped and draped in usual fashion. Preoperative antibiotic was injected IV as preoperative antibiotic. A final timeout was then again done just before starting the procedure. Dr. Eugene Lao assisted me with the anterior approach. Please see his separate operative note for additional details. A 2 inch incision oblique was taken in the right lower quadrant of the abdomen 2 fingerbreadths away from the iliac crest and the lower ribs. Sharp dissection with Bovie was carried out up to the fascia covering the external oblique. The external oblique, internal oblique and transversus abdominis muscles were split along the muscle fibers and retroperitoneal space was entered. Sponge sticks were utilized to move the bowel and peritoneum [id number] and psoas muscle was exposed staying within the retroperitoneal plane. [employer] retractor system was positioned and the retractor blade was applied onto the psoas. The interval between psoas and IVC was developed and appropriate retractors were placed. Once adequate interval was cleared, a disc space was identified and a marker x-ray was taken. This identified the L4-5 disc level. The prepsoas interval was then traced inferiorly. Right iliolumbar vein at the level of the L5 body was recognized, isolated, ligated with silk suture, vascular clips as well as PDS Endoloop. The right common iliac vein was then mobilized towards the midline to expose the L5-S1 level. Annulotomy was done with a long handled knife. Pituitary was used to remove disc material. Curettes were used to prepare the endplates. Disc space spreaders were utilized to distract and increase the disc height. Near complete discectomy was performed. Trials of serially increasing sizes were used. A Jamshidi needle was used to aspirate bone marrow from the vertebral body and this aspirate was mixed with the allograft bone chips. A [employer] [place] cage of size of the 18 x 12 x 45 mm with 15 degrees lordosis was packed with corticocancellous allograft bone chips mixed with bone marrow aspirate. This was inserted into the L5-S1 disc space. The retractors were then repositioned to expose the L4-5, L3-4, and L2-3 discs and the procedure was repeated with complete discectomy and endplate preparation. Smaller disc distractors were also used to bluntly perform a contralateral annulotomy at the L2-5 levels. Cage size was 18 x 14 x 45 mm at L4-5, 18 x 12 x 45 mm at L2-3 and L3-4. AP and lateral C-arm pictures were taken to confirm good position of the cage. Some bone chips were also packed around the cages. Screw with washer was placed into the lower L3 body with a washer partially covering the cage at L3-4. Hemostasis was confirmed. The retractor blades were removed. Closure was done in layers with a continuous strand of # 1 Vicryl in all muscle layers. 2-0 Vicryl was used for subcutaneous tissue and 4-0 for Monocryl for the skin. Steri-Strips were applied and 4 x 4 gauze and Tegaderm were applied. Admit VTE Documentation VTE Mechan Device Prophylaxis: SCD's Procedures Musculoskeletal [id number]-[id number]: Other Procedure See Report
--- NOTE | 2023-09-03 16:04 | PCM.OPRPT ---
Report of Operation Date of Procedure: 09/03/23 Description of Surgical Findings:: Preoperative diagnosis: L5-S1 spondylolisthesis, degenerative lumbar scoliosis, L2-S1 disc degeneration with foraminal stenosis Postoperative diagnosis: Same Name of procedures: L2-S1 posterior percutaneous pedicle screw instrumented fusion, prone: ? L2-3 posterior spinal fusion 92936 ? L2-S1 posterior pedicle screw instrumentation 00510 ? L3-4 posterior fusion 39688/51 . L4-5 posterior fusion 51 . L5-S1 posterior fusion ? Allograft cancellous chips Attending Surgeon: Dr. Ed Lipscomb Asst surgeon: Dr. Bayron Negrete Estimated blood loss: 450 mL (total for entire case) Anesthesia: General Complications: None Description of procedure: After the anterior procedure was complete, the patient was then turned supine. The patient was then transferred to Kofi table in prone position. Back was prepped and draped in usual fashion. C-arm AP view was then taken. C-arm was positioned in a way that L2 was centralized and superior endplate of was parallel to the beam. Spinous process was centered between the pedicles. Midline was marked with skin marker and lateral borders of the pedicles were also marked. Skin marker was also utilized to keiko transversely across the middle of the pedicles at L2. 2 transverse paramedian incisions of 1 inch were placed. The fascia was incised vertically. Finger dissection was utilized to palpate the transverse process and facet joint. Viper Prime screws with towers were inserted and docked onto the transverse processes. This was then slowly moved medially to reach the superior articular process of L2. This was then confirmed on C-arm and then a mallet was utilized to drive the trocar into the pedicle going up to the medial wall of the pedicle on AP view. This was performed both sides. C-arm lateral view confirmed that the tip of the trocar was in the vertebral body, and the screw was advanced into the pedicle and vertebral body. This was repeated similarly at L3, L5, S1 bilaterally. Screw sizes were 6 x 45 mm at L2 and L3 bilaterally, 7 x 50 mm at L5 bilaterally, and 7 x 45 mm at S1 on both sides. 120 mm precontoured titanium 5.5 mm lordotic mark on Both sides were then passed through the screw extensions and reduced down to the screws with the help of [employer] instrumentation system on both sides. AP and lateral view of the C-arm showed good positioning of the screws and cages. Final tightening with the torque screwdriver was then completed. [place] was utilized to roughen the facet joint at L2-S1 on the left side. Cancellous allograft bone chips mixed with bone marrow aspirate were then placed over this decorticated area. Hemostasis was achieved. Closure was done in layers with 0 Vicryls for the fascia, 2-0 Vicryls for the subcutaneous tissue, and Monocryl for the skin. Dermabond was applied. Dressings were applied covered with Tegaderm. The patient was then turned supine onto a hospital bed. The patient was extubated and taken to PACU in stable condition. The patient tolerated the procedure well and no complications occurred. Depuy [place] cage & Viper Prime minimally invasive pedicle screw instrumentation system was utilized in this case. No dural tear was identified intraoperatively. I was present for the entirety of the case and performed the surgery. Admit VTE Documentation VTE Mechan Device Prophylaxis: SCD's Procedures Musculoskeletal [id number]: Other Procedure See Report
--- OUTSIDE RECORDS SUMMARY | 2023-09-03 16:48 | XMS RPT_ITS | CCD ---
Author Name Unknown Address [id number] [place] [address] Organization [facility] Care Team Providers Care Buckle Sorter Name Role Phone Melinda Son Unavailable Unavaila [...] Unavailable LOGAN HADDAD Primary Care Unavailable PERCY VARAGS Attending Unavailable SAM, PERCY Referring Unavailable LOGAN HADDAD Primary Care Unavailable ADELE, MKIE Y Attending Unavailable LOGAN HADDAD Primary Care [...] (2 sources) DULoxetine; Translations: [Cymbalta] Drug Allergy [facility] Work Phone: Penicillins (antibiotic) (2 sources) Penicillins; Translations: [Penicillins] Drug Allergy [facility] Work Phone: (6 sources) DULoxetine; Translations: [Cymbalta] Drug Allergy [facility] Work Phone: (8 sources) Penicillins; Translations: [Penicillins] Allergy to drug (finding) 9 [facility] Other [place] [facility] (13 sources) DULoxetine; Translations: [DULOXETINE] Drug Allergy 9 Other: See Comments [facility] (13 sources) Lactose; Translations: [LACTOSE] Drug Allergy 8 GI Upset [facility] (11 sources) Penicillins Propensity to adverse reactions 9 Hives [facility] (13 sources) Shellfish; Translations: [SHELLFISH DERIVED] Drug Intolerance 8 Vomiting [facility] Medications Current Medications Medication Drug Class(es) Dates Sig (Normalized) Sig (Original) polyethylene glycol 3350 238580 mg / potassium chloride 2970 mg / sodium bicarbonate 6740 mg / sodium chloride 5860 mg / sodium sulfate 77531 mg powder for oral solution (1 source) [...] Long-term current use of diuretic; Translations: [Other intermediate (current) drug therapy] Episodic Other ear and [...] 165.1 cm Mike Angulo MD Work Phone: [facility] 03-27-2023 16:01-0400 Body weight 102.92 kg Mike Angulo MD Work Phone: [facility] 03-27-2023 16:01-0400 Diastolic blood pressure 73 mm[Hg] Mike Angulo MD Work Phone: [facility] 03-27-2023 16:01-0400 Heart rate 86 /min Mike Angulo MD Work Phone: [facility] 03-27-2023 16:01-0400 SaO2% (BldA) [Mass fraction] 94 % Mike Angulo MD Work Phone: [facility] 03-27-2023 16:01-0400 Systolic blood pressure 121 mm[Hg] Mike Angulo MD Work Phone: [facility] 11-10-2022 13:30-0400 Body temperature 97 [degF] Travis Frost MD Work Phone: [facility] 11-10-2022 13:30-0400 Diastolic blood pressure 85 mm[Hg] Travis Frost MD Work Phone: [facility] 11-10-2022 13:30-0400 Heart rate 75 /min Travis Frost MD Work Phone: [facility] 11-10-2022 13:30-0400 Respiratory rate 16 /min Travis Frost MD Work Phone: [facility] 11-10-2022 13:30-0400 SaO2% (BldA) [Mass fraction] 95 % Travis Frost MD Work Phone: [facility] 11-10-2022 13:30-0400 Systolic blood pressure 138 mm[Hg] Travis Frost MD Work Phone: [facility] 11-06-2022 13:16-0400 Body height 165.1 cm Travis Frost MD Work Phone: [facility] 11-06-2022 13:16-0400 Body temperature 98.01 [degF] Travis Frost MD Work Phone: [facility] 11-06-2022 13:16-0400 Body weight 108.05 kg Travis Frost MD Work Phone: [facility] 11-06-2022 13:16-0400 Diastolic blood pressure 84 mm[Hg] Travis Frost MD Work Phone: [facility] 11-06-2022 13:16-0400 Heart rate 99 /min Travis Frost MD Work Phone: [facility] 11-06-2022 13:16-0400 SaO2% (BldA) [Mass fraction] 99 % Travis Frost MD Work Phone: [facility] 11-06-2022 13:16-0400 Systolic blood pressure 122 mm[Hg] Travis Frost MD Work Phone: [facility] 05-29-2022 14:18-0400 Body height 165.1 cm Logan Haddad Work Phone: [facility] Work Phone: 05-29-2022 14:18-0400 Body mass index (BMI) [Ratio] 39.44 kg/m2 Logan Haddad Work Phone: [facility] Work Phone: 05-29-2022 14:18-0400 Body surface area Derived from formula 2.13 m2 Logan Haddad Work Phone: [facility] Work Phone: 05-29-2022 14:18-0400 Body weight 107.5 kg Logan Haddad Work Phone: [facility] Work Phone: 05-29-2022 14:18-0400 Diastolic blood pressure 79 mm[Hg] Logan Haddad Work Phone: [facility] Work Phone: 05-29-2022 14:18-0400 Systolic blood pressure 129 mm[Hg] Logan Ocasio [place] Work Phone: [facility] Work Phone: 04-06-2022 09:10-0400 Body height 167.6 cm Mike Angulo MD Work Phone: [facility] 04-06-2022 09:10-0400 Body weight 107.96 kg Mike Angulo MD Work Phone: [facility] 04-06-2022 09:10-0400 Diastolic blood pressure 92 mm[Hg] Mike Angulo MD Work Phone: [facility] 04-06-2022 09:10-0400 Heart rate 74 /min Mike Angulo MD Work Phone: [facility] 04-06-2022 09:10-0400 Respiratory rate 16 /min Mike Angulo MD Work Phone: [facility] 04-06-2022 09:10-0400 SaO2% (BldA) [Mass fraction] 95 % Mike Angulo MD Work Phone: [facility] 04-06-2022 09:10-0400 Systolic blood pressure 138 mm[Hg] Mike Angulo MD Work Phone: [facility] 02-28-2021 10:29-0400 Body height 165.1 cm Logan Haddad Work Phone: [facility] Work Phone: 02-28-2021 10:29-0400 Body mass index (BMI) [Ratio] 35.78 kg/m2 Logan Ocasio [place] Work Phone: [facility] Work Phone: 02-28-2021 10:29-0400 Body surface area Derived from formula 2.04 m2 Logan Ocasio [place] Work Phone: [facility] Work Phone: 02-28-2021 10:29-0400 Body weight 97.52 kg Logan Amarjit Boo Work Phone: [facility] Work Phone: 02-28-2021 10:29-0400 Diastolic blood pressure 84 mm[Hg] Logan Ocasio [place] Work Phone: [facility] Work Phone: 02-28-2021 10:29-0400 Systolic blood pressure 124 mm[Hg] Logan Ocasio Boo Work Phone: [facility] Work Phone: 02-24-2020 11:11-0400 BMI (Body Mass Index) 33.95 kg/m2 Melinda Son [facility] Work Phone: 02-24-2020 11:11-0400 Body weight 92.53 kg Melinda Son [facility] Work Phone: 02-24-2020 11:11-0400 BP Diastolic 84 mm[Hg] Melinda Son [facility] Work Phone: 02-24-2020 11:11-0400 BP Systolic 128 mm[Hg] [facility]: 02-24-2020 11:11040 BSA (Body Surface Area) 1.99 m2 [facility] Work Phone: 02-24-2020 11:11040 Height 165.1 cm [facility] Work Phone: Encounters Encounter Date Encounter Type Care Provider Facility Start: 08-31-2023 End: 08-31-2023 ambulatory PERCY [place]BEKE Facility:[facility] Start: 08-17-2023 End: [facility] Start: 07-27-2023 End: 07-27-2023 [facility] Start: 07-18-2023 End: 07-18-2023 [facility] Start: 07-13-2023 End: 07-13-2023 ambulatory PERCY [facility] Facility:[facility] Start: 06-29-2023 End: 06-29-2023 [facility]ulatory [facility] Start: 06-15-2023 End: 06-15-2023 [facility] Start: 06-01-2023 End: 06-01-2023 ambulatory PERCY WABEKE Facility:[facility] Start: 05-11-2023 End: 05-11-2023 ambulatory PERCY WABEKE Facility:[facility] Start: 04-27-2023 End: 04-27-2023 ambulatory [facility] Facility:[facility] Start: 04-13-2023 End: 04-13-2023 ambulatory PERCY [facility]ABEKE Facility:[facility] Start: 03-27-2023 End: 03-28-2023 ambulatory MIKE ANGULO Facility:[facility] Start: 03-27-2023 End: 03-28-2023 Office outpatient [...] Activity Detail Author Start: 11-10-2032 Colonoscopy COLONOSCOPY [facility] Start: 11-10-2032 COLORECTAL CANCER SCREENING COLORECTAL CANCER SCREENING [facility] Start: 02-07-2025 DIABETES SCREEN DIABETES SCREEN [facility] Start: 03-27-2024 BP CONTROLLED (<130/80) BP CONTROLLED (<130/80) [facility] Start: 11-11-2023 Colonoscopy COLONOSCOPY [facility] Start: 11-11-2023 COLORECTAL CANCER SCREENING COLORECTAL CANCER SCREENING [facility] Start: 10-09-2023 Mammography MAMMOGRAM [facility] Start: 06-11-2023 Patient encounter procedure ANNUAL, Provider: Yuni Anthony, Status: Pen, Time: 3:00 PM [facility] Work Phone: Start: 04-13-2023 Influenza vaccination INFLUENZA (#1) [facility] Start: 07-12-2022 LIPID SCREEN LIPID SCREEN [facility] Start: 04-13-2022 Influenza vaccination INFLUENZA (#1) [facility] Start: 10-28-2021 COVID-19 VACCINE (4 - Booster for Moderna series) COVID-19 VACCINE (4 - Booster for Moderna series) [facility] Start: 08-25-2021 COVID-19 VACCINE (4 - Booster for Moderna series) COVID-19 VACCINE (4 - Booster for Moderna series) [facility] Start: 08-25-2021 COVID-19 VACCINE (4 - Moderna series) COVID-19 VACCINE (4 - Moderna series) [facility] Start: 2020 SHINGRIX VACCINE (1 of 2) SHINGRIX VACCINE (1 of 2) [facility] Start: 11-08-2018 PNEUMOCOCCAL (2 - PCV) PNEUMOCOCCAL (2 - PCV) [facility] Start: 10-23-2018 ANNUAL PCP TEAM CHRONIC DISEASE VISIT ANNUAL PCP TEAM CHRONIC DISEASE VISIT [facility] Start: 10-12-2015 COLOGUARD (FIT-DNA) COLOGUARD (FIT-DNA) [facility] Start: 10-12-2015 Colonoscopy COLONOSCOPY [facility] Start: 10-12-2015 COLORECTAL CANCER SCREENING COLORECTAL CANCER SCREENING [facility] Start: 10-12-[address] COLONOGRAPHY [facility] Start: 10-12-2015 FECAL OCCULT BLOOD FECAL OCCULT BLOOD [facility] Start: 10-12-2015 SIGMOIDOSCOPY SIGMOIDOSCOPY [facility] Start: 2010 Mammography MAMMOGRAM [facility] Start: 2000 HPV TESTING HPV TESTING [facility] Start: 10-12-1991 PAP TESTING PAP TESTING [facility] Start: 1989 Urine microalbumin profile DTAP,TDAP,TD (1 - Tdap) [facility] Start: 1988 ANNUAL PCP TEAM CHRONIC DISEASE VISIT ANNUAL PCP TEAM CHRONIC DISEASE VISIT [facility] Start: 1988 BP CONTROLLED (<130/80) BP CONTROLLED (<130/80) [facility] Start: 1988 HEPATITIS C SCREENING HEPATITIS C SCREENING [facility] Start: 1988 HIV SCREENING HIV SCREENING [facility] Start: 1970 HEPATITIS B (1 of 3 - 3-dose series) HEPATITIS B (1 of 3 - 3-dose series) [facility] End: 11-07-2023 COLONOSCOPY DIAGNOSTIC COLONOSCOPY DIAGNOSTIC Endoscopy Routine Encounter for screening for malignant neoplasm of colon 1 Occurrences starting 11/06/2022 until 11/07/2023 [facility] Work Phone: Immunizations Immunization Date Immunization Notes Care Provider Mariya eddy 11-08-2017 pneumococcal polysaccharide vaccine, 23 holly Mortensen MD Work Phone: [facility] Payers Date Payer Category Payer Medicare [id number] 2018 Private Health Insurance [id number] 2015 Medicaid [id number] 2015 Medicaid [id number] 1970 Unknown [id number] 1970 Unknown [id number] 1970 Unknown [id number] Unknown Unknown [id number] Social History Date Type Detail Facility Start: 10-22-2017 End: 12-15-2022 Current every day smoker Current every day smoker [facility] Start: 10-22-2017 Tobacco smoking stat [facility] Smokes tobacco daily [facility] Work Phone: End: 08-13-2021 History of tobacco use Cigarette Smoker [facility] Work Phone: Start: 10-22-2017 End: 11-06-2022 Tobacco use and exposure Smokeless tobacco non-user [facility] Work Phone: Start: 02-07-2022 Alcohol intake Current drinke r of alcohol (finding) [facility] Start: 10-22-2017 End: 11-06-2022 Tobacco Comment currently 1 pack every 3 days; patient cutting back for surgery - not ready to quit [facility] Start: 1970 Sex Assigned At Female [facility] Start: 02-26-2022 End: 05-12-2022 Exposure to SARS-CoV-2 (event) Not sure [facility] Start: 11-06-2022 Tobacco smoking stat us MDIS Ex-smoker [facility] End: 08-13-2021 History of tobacco use Current smoker [facility] Start: 11-06-2022 End: 11-22-2022 Alcohol intake Ex-drinker (finding) [facility] Start: 11-06-2022 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 [facility] Start: 11-22-2022 End: 12-15-2022 Tobacco use panel [facility] Adult Depression Screening Assessment 3 [facility] Start: 09-29-2020 Gender identity Identifies as female gender (finding) [facility] Start: 09-29-2020 Sexual orientation Heterosexual (darnell putnam) [facility] NEGATED: Highlighted row - - [facility] Work Phone: Medical Equipment Procedure Code Equipment Code Equipment Origin al Text Equipment Identifier Dates Head V40 36mm +2 .5mm Offset Taper Biolox Delta Femoral Hip - [id number] Start: 11-06-2017 Screw Trident Secur-Fit Torx 6.5mm Titanium 20mm Bone Sterile Acetabular - [id number] Start: 11-06-2017 Functional Status Date Assessment Result Facility NEGATED: Highlighted row Functional performance Functional status health issues are not documented Disease [facility] Work Phone: Mental Status Date Assessment Result Facility NEGATED: Highlighted row Cognitive function [Interpretation] Cognitive status health issues are not documented Disease [facility] Work Phone: Clinical Notes 11-06-2017 to 08-31-2023 Mike Angulo MD - 03/27/2023 4:13 PM EDTBMike toro MD - 03/27/2023 4:10 PM EDTTelephone Encounter - Lisandra Michael RN - 01/25/2023 10:06 AM PATTITTravis Frost MD - 11/10/2022 1:45 PM EDT Note Date & Type Note Facility 08-31-2023 Note HNO ID: [id number] Author: PERCY VARGAS LISW Service: ? Author Type: Dispatcher Maintenance Service Type: Progress Notes Filed: 08/31/2023 14:57 Note Text: GENERAL PSYCHOLOGY Session #: 61 (session count starts after PSYL NEW EVAL visit) Visit Type:The patient consented to a virtual visit and their location was confirmed. SUBJECTIVE: I have communicated my name and active licensure. The patient's identity and physical location were verified at the time of this visit. 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 WILLOW Adamson [facility] 08-17-2023 Note HNO ID: [id number] Author: PERCY VARGAS LISW Service: ? Author Type: Dispatcher Maintenance Service Type: Progress Notes Filed: 08/17/2023 16:24 Note Text: GENERAL PSYCHOLOGY Session #: 60 (session count starts after PSYL NEW EVAL visit) Visit Type:The patient consented to a virtual visit and their location was confirmed. SUBJECTIVE: I have communicated my name and active licensure. The patient's identity and physical location were verified at the time of this visit. 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 WILLOW Adamson [facility] 07-27-2023 Note HNO ID: [id number] Author: Percy Vargas LISW Service: ? Author Type: Dispatcher Maintenance Service Type: Progress Notes Filed: 07/27/2023 11:53 AM [...] visit. 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 WILLOW Adamson [facility] 07-18-2023 Note HNO ID: [id number] Author: Percy Vargas LISW Service: ? Author Type: Dispatcher Maintenance Service Type: Progress Notes Filed: 07/18/2023 2:23 PM [...] visit. Either the patient or their legal sales representative [employer] has been informed of the risks and [...] Therapy to self monitoring PROGRESS TO DATE: Residential Progress: Progress Short Term Condition: Regressed GOALS/OBJECTIVES/INTERVENTIONS : Patient's primary goal for treatment is to reduce her symptoms of depression Approximately 45 minutes were spent with the patient doing therapy. WILLOW Adamson [facility] 07-13-2023 Note HNO ID: [id number] Author: Percy Vargas LISW Service: ? Author Type: Dispatcher Maintenance Service Type: Progress Notes Filed: 07/13/2023 10:33 AM Note Text: Patient had to cancel appointment due to illness and is rescheduled for next week-no charge [facility] 06-29-2023 Note HNO ID: [id number] Author: Percy Vargas LISW Service: ? Author Type: Dispatcher Maintenance Service Type: Progress Notes Filed: 06/29/2023 3:15 PM [...] visit. 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 WILLOW Adamson [facility] 06-15-2023 Note HNO ID: [id number] Author: Percy Vargas LISW Service: ? Author Type: Dispatcher Maintenance Service Type: Progress Notes Filed: 06/15/2023 1:52 PM [...] visit. 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 WILLOW Adamson [facility] 06-01-2023 Note HNO ID: [id number] Author: Percy Vargas LISW Service: ? Author Type: Dispatcher Maintenance Service Type: Progress Notes Filed: 06/01/2023 4:05 PM [...] visit. Either the patient or their legal sales representative [employer] has been informed of the risks and [...] Therapy to self monitoring PROGRESS TO DATE: Residential Progress: Progress Short Term Condition: Progress GOALS/OBJECTIVES/INTERVENTIONS : Patient's primary goal for treatment is to reduce her symptoms of depression Approximately 45 minutes were spent with the patient doing therapy. WILLOW Adamson [facility] 05-11-2023 Note HNO ID: [id number] Author: Percy Vargas LISW Service: ? Author Type: Dispatcher Maintenance Service Type: Progress Notes Filed: 05/11/2023 11:33 AM [...] visit. 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 WILLOW Adamson [facility] 04-27-2023 Note HNO ID: [id number] Author: Percy Vargas LISW Service: ? Author Type: Dispatcher Maintenance Service Type: Progress Notes Filed: 04/27/2023 2:02 PM [...] visit. Either the patient or their legal sales representative [employer] has been informed of the risks and [...] Therapy to self monitoring PROGRESS TO DATE: Residential Progress: Progress Short Term Condition: Progress GOALS/OBJECTIVES/INTERVENTIONS : Patient's primary goal for treatment is to reduce her symptoms of depression Approximately 45 minutes were spent with the patient doing therapy. WILLOW Adamson [facility] 04-17-2023 Note HNO ID: [id number] Author: Percy Vargas LISW Service: ? Author Type: Dispatcher Maintenance Service Type: Progress Notes Filed: 04/17/2023 2:36 PM [...] visit. Either the patient or their legal sales representative [employer] has been informed of the risks and [...] Therapy to self monitoring PROGRESS TO DATE: Residential Progress: Progress Short Term Condition: Regressed GOALS/OBJECTIVES/INTERVENTIONS : Patient's primary goal for treatment is to reduce her symptoms of depression Approximately 45 minutes were spent with the patient doing therapy. WILLOW Adamson [facility] 03-27-2023 Note HNO ID: [id number] Author: Mike Angulo MD Service: ? Author [...] least 6-8, 8 oz glasses of water/d [facility] 03-27-2023 Note HNO ID: [id number] Author: Mike Angulo MD Service: ? Author [...] by mouth once (more content not included)... [facility] 03-27-2023 History of Presen t illness Narrative [...] the date of the service which included [id number] patient care, completing clinical documentation, obtaining and/or reviewing separately obtained history, performing a medically appropriate examination, counseling and educating the patient/family/caregiver, and ordering medications, tests, or procedures Mike Angulo MD documented in this encounter [facility] 03-16-2023 Note HNO ID: [id number] Author: Percy Vargas LISW Service: ? Author Type: Dispatcher Maintenance Service Type: Progress Notes Filed: 03/16/2023 3:55 PM [...] visit. 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 WILLOW Adamson [facility] 03-09-2023 Note HNO ID: [id number] Author: Percy Vargas LISW Service: ? Author Type: Dispatcher Maintenance Service Type: Progress Notes Filed: 03/09/2023 8:03 AM Note Text: Appointment cancelled-no charge [facility] 02-23-2023 Note HNO ID: [id number] Author: ZACHARY Adamson Service: ? Author Type: Dispatcher Maintenance Service Type: Progress Notes Filed: 02/23/2023 2:59 PM [...] visit. Either the patient or their legal sales representative [employer] has been informed of the risks and [...] Therapy to self monitoring PROGRESS TO DATE: Residential Progress: Progress Short Term Condition: Regressed GOALS/OBJECTIVES/INTERVENTIONS : Patient's primary goal for treatment is to reduce her symptoms of depression Approximately 45 minutes were spent with the patient doing therapy. WILLOW Adamson [facility] 02-02-2023 Note HNO ID: [id number] Author: ZACHARY Adamson Service: ? Author Type: Dispatcher Maintenance Service Type: Progress Notes Filed: 02/02/2023 3:49 PM [...] visit. Either the patient or their legal sales representative [employer] has been informed of the risks and [...] Therapy to self monitoring PROGRESS TO DATE: Residential Progress: Progress Short Term Condition: Progress GOALS/OBJECTIVES/INTERVENTIONS : Patient's primary goal for treatment is to reduce her symptoms of depression Approximately 45 minutes were spent with the patient doing therapy. WILLOW Adamson [facility] 01-25-2023 Miscellaneous Notes Formattin g of this [...] Eunice Gilliland Pss documented in this encounter [facility] [place] [facility] 01-19-2023 Note HNO ID: [id number] Author: ZACHARY Adamson Service: ? Author Type: Dispatcher Maintenance Service Type: Progress Notes Filed: 01/19/2023 11:22 AM Note Text: Patient was a no show for appointment [facility] 01-05-2023 Note HNO ID: [id number] Author: ZACHARY Adamson Service: ? Author Type: Dispatcher Maintenance Service Type: Progress Notes Filed: 01/05/2023 12:14 PM [...] visit. 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 WILLOW Adamson [facility] 12-15-2022 Note HNO ID: [id number] Author: ZACHARY Adamson Service: ? Author Type: Dispatcher Maintenance Service Type: Progress Notes Filed: 12/15/2022 4:05 PM [...] visit. Either the patient or their legal sales representative [employer] has been informed of the risks and [...] Therapy to self monitoring PROGRESS TO DATE: Residential Progress: Progress Short Term Condition: Regressed GOALS/OBJECTIVES/INTERVENTIONS : Patient's primary goal for treatment is to reduce her symptoms of depression Approximately 45 minutes were spent with the patient doing therapy. WILLOW Adamson [facility] 12-01-2022 Note HNO ID: [id number] Author: ZACHARY Adamson Service: ? Author Type: Dispatcher Maintenance Service Type: Progress Notes Filed: 12/01/2022 12:16 PM [...] visit. Either the patient or their legal sales representative [employer] has been informed of the risks and [...] Therapy to self monitoring PROGRESS TO DATE: Residential Progress: Progress Short Term Condition: Regressed GOALS/OBJECTIVES/INTERVENTIONS : Patient's primary goal for treatment is to reduce her symptoms of depression Approximately 45 minutes were spent with the patient doing therapy. WILLOW Adamson [facility] 11-22-2022 Miscellaneous Notes Formattin g of this note might be different from the original. [employer] message sent to patient with [employer] message. Health maintenance and surgical history updated. [...] for colonoscopy preferred by Dr. Frost in [place] on 11/10/2022. Patient stated they have been out of town and was not able to call sooner for an update. Patient asking if a follow up is needed. Please advise Thank you Alla Deng Coding Clerk 11/10/2022 COLON MARIN documented in this encounter [facility] [place] [facility] 11-17-2022 Note HNO ID: [id number] Author: ZACHARY Adamson Service: ? Author Type: Dispatcher Maintenance Service Type: Progress Notes Filed: 11/17/2022 4:36 PM Note Text: GENERAL PSYCHOLOGY Session #: 44 (session count starts after PSYL NEW EVAL visit) SUBJECTIVE: I have communicated my name and active licensure. The patient's identity and physical location were verified at the time of this visit. 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 WILLOW Adamson [facility] 11-10-2022 History and physical note Images from [...] entered by the nurse and reviewed by nd Nursing Notes: Kelly Chaves LPN 11/06/2022 1:39 [...] TIME: 12:39 PM documented in this encounter [facility] [place] [facility] 11-06-2022 Note HNO ID: [id number] Author: Travis Frost MD Service: ? Author [...] change in bowel habits. Bruno denies melena. Rbuno denies bright red blood per rectum. Bruno [...] Mother Heart disea (more content not included)... [facility] 11-06-2022 History of Presen t illness Narrative [...] Frost III, MD documented in this encounter [facility] [place] [facility] 11-06-2022 Nurse Note REVIEW OF SYSTEMS: General: [...] Kelly Chaves LPN documented in this encounter [facility] [place] [facility] 11-06-2022 Instructions Travis Frost MD - 11/06/2022 [...] If you do not have a responsible local driver (family member or friend) with you [...] exam. 2 07/2019 documented in this encounter [facility] [place] [facility] 11-03-2022 Miscellaneous Notes Formattin g of this note might be different from the original. Called patient to schedule colonoscopy, she has a new GI Doctor. Rhina Tee MA documented in this encounter [facility] [place] [facility] 10-13-2022 Note HNO ID: [id number] Author: ZACHARY Adamson Service: ? Author Type: Dispatcher Maintenance Service Type: Progress Notes Filed: 10/13/2022 2:57 PM Note Text: GENERAL PSYCHOLOGY Session #: 43 (session count starts after PSYL NEW EVAL visit) SUBJECTIVE: This Team Access Model visit is a virtual encounter. It required patient-provider interaction for the medical decision making as documented below. Patient gave consent for virtual visit Confirmed patient is in the [facility] and this provider is in the [facility]. PATIENT DATA: Generalized Anxiety Disorder Scale (JET-7) [...] Therapy to self monitoring PROGRESS TO DATE: Residential Progress: Progress Short Term Condition: Regressed GOALS/OBJECTIVES/INTERVENTIONS : Patient's primary goal for treatment is to reduce her symptoms of depression Approximately 45 minutes were spent with the patient doing therapy. WILLOW Adamson [facility] 10-02-2022 Miscellaneous Notes Addended by: MIKE ANGULO on: 10/02/2022 06:15 PM Modules accepted: Level of Service documented in this encounter [facility] [place] [facility] 09-29-2022 Note HNO ID: [id number] Author: ZACHARY Adamson Service: ? Author Type: Dispatcher Maintenance Service Type: Progress Notes Filed: 09/29/2022 2:43 PM Note Text: GENERAL PSYCHOLOGY Session #: 42 (session count starts after PSYL NEW EVAL visit) SUBJECTIVE: This Team Access Model visit is a virtual encounter. It required patient-provider interaction for the medical decision making as documented below. Patient gave consent for virtual visit Confirmed patient is in the [facility] and this provider is in the [facility]. PATIENT DATA: Generalized Anxiety Disorder Scale (JET-7) JET - 7 SCORES 08/22/2022 09/13/2022 09/27/2022 EJT-7 Score 9 8 7 (0-4) minimal anxiety, [...] Therapy to self monitoring PROGRESS TO DATE: Residential Progress: Progress Short Term Condition: Progress GOALS/OBJECTIVES/INTERVENTIONS : Patient's primary goal for treatment is to reduce her symptoms of depression Approximately 45 minutes were spent with the patient doing therapy. WILLOW Adamson [facility] 09-15-2022 Note HNO ID: [id number] Author: ZACHARY Adamson Service: ? Author Type: Dispatcher Maintenance Service Type: Progress Notes Filed: 09/15/2022 3:59 PM Note Text: GENERAL PSYCHOLOGY Session #: 41 (session count starts after PSYL NEW EVAL visit) SUBJECTIVE: This Team Access Model visit is a virtual encounter. It required patient-provider interaction for the medical decision making as documented below. Patient gave consent for virtual visit Confirmed patient is in the [facility] and this provider is in the [facility]. PATIENT DATA: Generalized Anxiety Disorder Scale (JET-7) [...] Therapy to self monitoring PROGRESS TO DATE: Residential Progress: Progress Short Term Condition: Progress GOALS/OBJECTIVES/INTERVENTIONS : Patient's primary goal for treatment is to reduce her symptoms of depression Approximately 45 minutes were spent with the patient doing therapy. WILLOW Adamson [facility] 09-14-2022 Note HNO ID: [id number] Author: Mike Angulo MD Service: ? Author [...] person, place an (more content not included)... [facility] 09-14-2022 Instructions Mike Angulo MD - 09/14/2022 4:37 PM EST Increasing Lamictal 50 mg for the first week Then 100 mg every night documented in this encounter [facility] [place] [facility] 09-14-2022 History of Presen t illness Narrative [...] Mike Angulo MD documented in this encounter [facility] [place] [facility] 06-09-2022 Miscellaneous Notes Formattin g of this note might be different from the original. This refill request is already pended to provider in previous encounter. CHANTAL Decker RN June 09, 2022 9:01 AM documented in this encounter [facility] [place] [facility] 06-08-2022 Miscellaneous Notes Formattin g of this note is different from the original. Provider: Dr. Angulo patient requesting refill via [employer]t . Please E-Scribe Last OV: 04-06-22 with [...] patient. Melody Reed documented in this encounter [facility] [place] [facility] 04-06-2022 History of Presen t illness Narrative [...] the date of the service which included [id number] patient care, completing clinical documentation, obtaining and/or reviewing separately obtained history, performing a medically appropriate examination, counseling and educating the patient/family/caregiver, and ordering medications, tests, or procedures Mike Angulo MD documented in this encounter [facility] [place] [facility] 02-07-2022 Instructions Cirilo Gotti - 02/07/2022 12:14 PM EDT 1. Increase Topamax dosage for migraines. Hold until completing oral steroids. 2. Order for blood work placed 3. Establish with migraine neurologist. . documented in this encounter [facility] [place] [facility] 02-07-2022 History of Presen t illness Narrative Staff Physician Comments: I testify that I personally interviewed and examined the patient. I confirm the below exam findings, assessment and plan were my own and resident/BATTERY HAND/scribe was acting as SCRIBE. Monica Mortensen MD, FACS Section Head, Otology/Neurotology/Skull Base Surgery Staffing Program Manager, Cochlear Implant Program Head and Neck [place] [facility] History of Present Illness Ms. 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 [facility] Work Phone: 01-12-2020 History of Presen [...] her right foot due to a fracture. [facility] Work Phone: documented as of this encounter (statuses as of 04/03/2022) [facility] History of Past illness Narrative* Problem Noted Date Resolved Date S/P total hip arthroplasty 11/06/201711/08 documented as of this encounter (statuses as of 05/14/2022) [facility] [place] [facility] History of Past illness Narrative* Problem Noted Date Resolved Date S/P total hip arthroplasty 11/06/201711/08 documented as of this encounter (statuses as of 06/11/2022) [address]27-2018 History of Past illness Narrative* Problem Noted Date Resolved Date S/P total hip arthroplasty 11/06/201711/08 documented as of this encounter (statuses as of 06/11/2022) [address]27-2018 History of Past illness Narrative* Problem Noted Date Resolved Date S/P total hip arthroplasty 11/06/201711/08 documented as of this encounter (statuses as of 10/03/2022) [address]-2018 History of Past illness Narrative* Problem Noted Date Resolved Date S/P total hip arthroplasty 11/06/201711/08 documented as of this encounter (statuses as of 11/03/2022) [address]-2018 History of Past illness Narrative* Problem Noted Date Resolved Date S/P total hip arthroplasty 11/06/201711/08 documented as of this encounter (statuses as of 11/06/2022) [address]2018 History of Past illness Narrative* Problem Noted Date Resolved Date S/P total hip arthroplasty 11/06/201711/08 documented as of this encounter (statuses as of 11/11/2022) [address]2018 History of Past illness Narrative* Problem Noted Date Resolved Date S/P total hip arthroplasty 11/06/201711/08 documented as of this encounter (statuses as of 11/23/2022) [address] History of Past illness Narrative* Problem Noted Date Resolved Date S/P total hip arthroplasty 11/06/201711/08 documented as of this encounter (statuses as of 01/25/2023) [address] History of Past illness Narrative* Problem Noted Date Diagnosed Date Resolved Date S/P total hip arthroplasty 11/06/2017 0 11/08/2017 documented as of this encounter (statuses as of 03/28/2023) [facility] Diagnosis Meniere's disease of right ear- Primary Meniere's disease, unspecified Vestibular migraine Perforation of right tympanic membrane Perforation of tympanic membrane, unspecified Imbalance Abnormality of gait long-term current use of diuretic [facility] [place] [facility] Diagnosis Vestibular migraine- Primary Syncope and collapse [facility] [place] [facility] Diagnosis Vestibular migraine- Primary [facility] [place] [facility]* Diagnosis Encounter for screening for malignant neoplasm of colon- Primary Special screening for malignant neoplasms, colon documented in this encounter [facility] note* Diagnosis Encounter for screening colonoscopy- Primary Special screening for malignant neoplasms, colon Encounter for screening for malignant neoplasm of colon Special screening for malignant neoplasms, colon documented [facility] this encounter [facility] [place] [facility]* Diagnosis Abdominal migraine, intractable- Primary Variants of migraine, not elsewhere classified, with intractable migraine, so stated, without mention of status migrainosus documented in this encounter [facility] for referral (narrative)* Outpatient Procedure (Routine) - Closed Specialty Diagnoses / Procedures Referred By America watson Referred To Contact [facility] Diagnoses Vestibular migraine Syncope and collapse Procedures EPIL EEG ROUTINE ELECTROENCEPHALOGRAM REC COMA/SLEEP ONLY Mike Angulo MD [address] [place] [address] [place] [address] Referral ID Status Reason Start Date Expiration Date V isits Requested Visits Authorized [id number] Closed Auto-Generate d Referral 04/06/2022 04/06/2023 1 1 [facility] for referral (narrative)* Outpatient Procedure (Routine) - Authorized Specialty Diagnoses / Procedures Referred By America watson Referred To Contact Diagnoses Encounter for screening for malignant neoplasm of colon Procedures COLONOSCOPY DIAGNOSTIC COLONOSCOPY FLX DX W/COLLJ SPEC WHEN PFRMD Travis Frost MD [address] [place] [address] [facility] [address] [place] [address] Referral ID Status Reason Start Date Expiration Date Visits Requested Visits Authorized [id number] Authorized Auto-Generat ed Referral 11/06/2022 11/07/2023 1 1 [facility] for referral (narrative)* Outpatient Procedure (Routine) - Closed Specialty Diagnoses / Procedures Referred By America watson Referred To Contact Diagnoses Encounter for screening for malignant neoplasm of colon Procedures COLONOSCOPY DIAGNOSTIC COLONOSCOPY FLX DX W/COLLJ SPEC WHEN Travis Isaac MD [address] [place] [address] [facility] [address] [place] [address] Referral ID Status Reason Start Date Expiration Date V isits Requested Visits Authorized [id number] Closed Auto-Generate d Referral 11/06/2022 11/07/2023 1 1 [facility] for visit Narrative* Outpatient Procedure (Routine) - Closed Specialty Diagnoses / Procedures Referred By America watson Referred To Contact Diagnoses Encounter for screening for malignant neoplasm of colon Procedures COLONOSCOPY DIAGNOSTIC COLONOSCOPY FLX DX W/COLLJ SPEC WHEN Travis Isaac MD [address] [place] [address] [facility] [address] [place] [address] Referral ID Status Reason Start Date Expiration Date V isits Requested Visits Authorized [id number] Closed Auto-Generate d Referral 11/06/2022 11/07/2023 1 1 [facility] Family History No Family History Records Found [...] FoundDocuments on File Type Date Recorded Patient Letter Of Credit Document Examiner Expl anation Advance Directive(s) 11/06/2017 6:32 AM Documents on File Type Date Recorded Patient Letter Of Credit Document Examiner Expl anation Advance Directive(s) 11/06/2017 6:32 AM Chief 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 cb Reason for Referral Specialty Diagnoses / Procedures Referred By America t Referred To Contact Neurology Diagnoses Meniere's disease of right ear Vestibular migraine Procedures CONSULT TO NEUROLOGY OFFICE/OUTPATIENT [facility] 60-74 MINUTES Monica Mortensen MD [address] [place] [address] Referral ID Status Reason Start Date Expiration Date Visits Requested Visits Authorized [id number] Authorized PCP Requested Referral 02/07/2022 02/07/2023 1 [...] DATE CREATED AUTHOR AUTHOR'S ORGANIZ ATION 03/25/2021 [facility] DATE CREATED AUTHOR AUTHOR'S ORGANIZ ATION 09/22/2021 [facility] DATE CREATED AUTHOR AUTHOR'S ORGANIZ ATION 06/06/2022 [facility] DATE CREATED AUTHOR AUTHOR'S ORGANIZ ATION 10/15/2022 [facility] DATE CREATED AUTHOR AUTHOR'S ORGANIZ ATION 11/15/2022 [facility] DATE CREATED AUTHOR AUTHOR'S ORGANIZ ATION 09/01/2023 [facility] Source Comments (unrecognize d section and content) In the event this informatio n is protected by the Federal Confidentiality of Alcohol and Drug Abuse Patient Records regulations: The Federal rules restrict any use of the information to criminally investigate or prosecute any alcohol or drug abuse patient.[facility] [place] [facility] the event this information is protected by the Federal Confidentiality of Alcohol and Drug Abuse Patient Records regulations: The Federal rules restrict any use of the information to criminally investigate or prosecute any alcohol or drug abuse patient.[facility] [place] [facility] the event this information is protected by the Federal Confidentiality of Alcohol and Drug Abuse Patient Records regulations: The Federal rules restrict any use of the information to criminally investigate or prosecute any alcohol or drug abuse patient.[facility] [place] [facility] the event this information is protected by the Federal Confidentiality of Alcohol and Drug Abuse Patient Records regulations: The Federal rules restrict any use of the information to criminally investigate or prosecute any alcohol or drug abuse patient.[facility] [place] [facility] the event this information is protected by the Federal Confidentiality of Alcohol and Drug Abuse Patient Records regulations: The Federal rules restrict any use of the information to criminally investigate or prosecute any alcohol or drug abuse patient.[facility] [place] [facility] the event this information is protected by the Federal Confidentiality of Alcohol and Drug Abuse Patient Records regulations: The Federal rules restrict any use of the information to criminally investigate or prosecute any alcohol or drug abuse patient.[facility] [place] [facility] Center[facility] the event this information is protected by the Federal Confidentiality of Alcohol and Drug Abuse Patient Records regulations: The Federal rules restrict any use of the information to criminally investigate or prosecute any alcohol or drug abuse patient.[facility] [place] [facility] Center[facility] the event this information is protected by the Federal Confidentiality of Alcohol and Drug Abuse Patient Records regulations: The Federal rules restrict any use of the information to criminally investigate or prosecute any alcohol or drug abuse patient.[facility] [place] [facility] Center[facility] the event this information is protected by the Federal Confidentiality of Alcohol and Drug Abuse Patient Records regulations: The Federal rules restrict any use of the information to criminally investigate or prosecute any alcohol or drug abuse patient.[facility] [place] [facility] Center[facility] the event this information is protected by the Federal Confidentiality of Alcohol and Drug Abuse Patient Records regulations: The Federal rules restrict any use of the information to criminally investigate or prosecute any alcohol or drug abuse patient.[facility] [place] [facility] Center[facility] the event this information is protected by the Federal Confidentiality of Alcohol and Drug Abuse Patient Records regulations: The Federal rules restrict any use of the information to criminally investigate or prosecute any alcohol or drug abuse patient.[facility] Reason for Visit (unrecogniz ed section and content) Reason Comments Consult Menieres disease of right ear, vestibular migraines Specialty Diagnoses / Procedures Referred By America watson Referred To Contact Neurology Diagnoses Meniere's disease of right ear Vestibular migraine Procedures CONSULT TO NEUROLOGY OFFICE/OUTPATIENT [facility] 60-74 MINUTES Monica Mortensen MD [address] [place] [address] Referral ID Status Reason Start Date Expiration Date V isits Requested Visits Authorized [id number] Closed PCP Requested Referral 02/07/2022 02/07/2023 1 1 Reason Comments Refill Request Reason Onset Date Comments Refill Request 06/08/2022 Reason Comments Follow Up Reason Comments mv november Reason Comments Consult colonoscopy Reason Comments 11/10/2022 [place]ON [place]IN Reason Onset Date Comments Refill Request 01/25/2023 Care Teams (unrecognized sec tion and content) Buckle Sorter Relationship Specialty [place] [address] [place] [address] PCP - General 06/04/09 Buckle Sorter Relationship Specialty [place] [address] [place] [address] PCP - General 06/04/09 Buckle Sorter Relationship Specialty [place] [address] [place] [address] PCP - General 06/04/09 Buckle Sorter Relationship Specialty [place] [address] [place] [address] PCP - General 06/04/09 Buckle Sorter Relationship Specialty [place] [address] [place] [address] PCP - General 06/04/09 Buckle Sorter Relationship Specialty [place] [address] [place] [address] PCP - General 06/04/09 Buckle Sorter Relationship Specialty [place] [address] [place] [address] PCP - General 06/04/09 Buckle Sorter Relationship Specialty [place] [address] [place] [address] PCP - General 06/04/09 Buckle Sorter Relationship Specialty [place] [address] [place] [address] PCP - General 06/04/09 FOR RECORDS PERTAINING [...] BE BASED ON THE PRIMARY CLINICAL RECORDS. [facility]. provides no warranty or guarantee of the accuracy or completeness of information in this document.
--- NOTE | 2023-09-03 18:51 | PCM.CONS.GEN ---
Assessment & Plan Assessment/Plan (1) S/P lumbar spinal fusion: PLAN: Plan Patient is a 52-year-old female who presented to [facility] on 09/03/2023 for planned lumbar fusion procedure. Medicine consulted postoperatively for medical management. 1. Degenerative lumbar scoliosis with foraminal stenosis S/p L2-S1 posterior spinal fusion with decompression with Dr. Lipscomb on 09/03. Patient tolerated procedure well. Postoperative x-ray obtained, read pending. ? Orthopedic surgery primary. PT/OT/case management consulted. Further management per orthopedics. 2. Mild postoperative hypoxia ? Requiring 4 to 5 L nasal cannula shortly after procedure, presumed secondary to procedural sedation. Lung sounds clear on exam, no increased work of breathing noted. Wean supplemental oxygen as able. Chronic medical conditions: ? Lower extremity neuropathy: Hold evening dose of gabapentin on 09/03, restart on morning of 09/04. ? Hypertension: Hold home triamterene?hydrochlorothiazide given postop hypotension, restart as needed. ? M?ni?re's disease: Hold daily amiloride given postop hypotension, restart as needed. Continue home meclizine 3 times daily as needed. ? Mood disorder: Continue home venlafaxine and Lamictal. ? Migraines: Continue home topiramate. ? Hyperlipidemia: Continue home rosuvastatin. ? GERD: Continue home PPI. ? Hypothyroidism: Continue home Synthroid. ? Obesity: BMI 36 on admit. Complicates hospital course, care and prognosis. Total clinical time spent by myself addressing the patient's medical issues, reviewing all the data, and collaborating with patient's care team: 35 minutes. HPI Consult Data Date of Consult: 09/03/23 HPI Narrative Reason for Consultation: Postoperative medical management HPI Narrative: BRUNO PATTERSON, is a 52 F who presented to [facility] on 09/03/2023 for planned orthopedic procedure. S/p L2-S1 posterior fusion with decompression with Dr. Lipscomb on 09/03. Medicine consulted postoperatively for medical management. Patient seen at bedside on the floor shortly after she was transported there from the PACU. Patient still appears fairly drowsy during my interview and was on 4 L nasal cannula with good oxygen saturations. She was sitting up in bed comfortably and in no acute distress. No increased work of breathing noted. She was able to answer my questions appropriately with short responses. She stated she had mild low back pain radiating into her right flank and lower abdomen currently. She otherwise denied any pain or discomfort. She denied any fevers or chills, chest pain or shortness of breath. Denied any abdominal pain or discomfort. No other acute concerns at this time. [facility] Medical History Acute maxillary sinusitis, unspecified Ambulates with cane Anemia Anxiety Arthritis Back problem Depression Dietary restriction Easy bruising Former smoker Gastric reflux Hearing problem History of edema History of pain when walking History of ulceration Hives Hypokalemia IBS (irritable bowel syndrome) Injury of head and neck Leg cramps Loss of hearing Menieres disease Migraine headache Neuropathy Osteoarthritis Pain Pneumonia Seasonal allergies Thyroid disease Ulcer Vertigo Vision problem Vitamin deficiency Wears glasses Home Medications celecoxib 200 mg capsule 200 mg PO DAILY PAIN 12/27/16 [History Last Taken 09/02/23] dexamethasone sodium phosphate 0.1 % eye drops 1 drp OP PRN PRN [facility] 12/27/16 [History Last Taken Unknown] amiloride 5 mg tablet 1 tab PO DAILY [facility] 03/27/20 [History Last Taken 09/02/23] gabapentin 600 mg tablet 600 mg PO BID PAIN 08/17/21 [History Last Taken 09/03/23] omeprazole 40 mg capsule,delayed release 40 mg PO DAILY PER DR 08/17/21 [History Last Taken 09/03/23] ondansetron HCl 4 mg tablet 4 mg PO Q8H PRN NAUSEA 08/17/21 [History Last Taken Unknown] topiramate 100 mg tablet 100 mg PO BID MIGRAINES 08/17/21 [History Last Taken 09/02/23] fluticasone propionate 50 mcg/actuation nasal spray,suspension 2 spray PRN PRN ALLERGIES 10/21/21 [History Last Taken Unknown] venlafaxine 75 mg capsule,extended release 24 hr (Effexor XR) 75 mg PO DAILY PER 12/27/21 [History Last Taken 09/02/23] rosuvastatin 10 mg tablet 10 mg PO DAILY PER DR REAGAN 01/24/23 [History Last Taken 09/02/23] levothyroxine 88 mcg tablet (Levoxyl) 88 mcg PO DAILY PER 02/20/23 [History Last Taken 09/03/23] potassium chloride 20 mEq tablet,extended release 60 meq PO DAILY PER 02/20/23 [History Last Taken 09/02/23] triamterene 37.5 mg-hydrochlorothiazide 25 mg tablet 1 tab PO DAILY PER DR 02/20/23 [History Last Taken 09/02/23] cetirizine 10 mg tablet (Zyrtec) 10 mg PO DAILY PRN allergy symptoms 03/08/23 [History Last Taken 09/02/23] lamotrigine 100 mg tablet 100 mg PO DAILY PER DR 03/08/23 [History Last Taken 09/02/23] meclizine 25 mg tablet 25 mg PO TID PRN dizziness #20 tabs 05/14/23 [Rx Last Taken Unknown] cholecalciferol (vitamin D3) 25 mcg (1,000 unit) capsule (Vitamin D3) 25 mcg PO DAILY PER DR 08/20/23 [History Last Taken 09/02/23] multivitamin (Daily Multi-Vitamin tablet) 1 tab PO DAILY PER DR 08/20/23 [History Last Taken 09/02/23] Allergy/AdvReac Type Severity Reaction Status Date / Time shellfish derived Allergy Severe vomitting Verified 09/03/23 06:13 Penicillins Allergy Hives Verified 09/03/23 06:13 citric acid AdvReac Severe wears dowm Verified 09/03/23 06:13 linning of mouth duloxetine [From Cymbalta] AdvReac Intermediate Other Verified 09/03/23 06:13 gluten AdvReac Intermediate stomach Verified 09/03/23 06:13 discomfort Family History Other Alcohol abuse Anxiety Arthritis Autoimmune disease Bowel disease Colon cancer Depression Diabetes Heart disease High cholesterol Hypertension Mental disorder Psychiatric care Severe allergic reaction Thyroid disorder Surgical History H/O total hip arthroplasty S/P insertion of spinal cord stimulator Social History Smoking Status: Current every day smoker tobacco type: e-cigarettes alcohol intake: former year quit: 2015 substance use type: does not use frequency: daily ROS Constitutional Constitutional: Reports fatigue; Denies chills, fever(s) or weakness Eyes Eyes: Denies change in vision Cardiovascular Cardiovascular: Denies chest pain Respiratory/Chest Respiratory/Chest: Denies cough or shortness of breath at rest Gastrointestinal Gastrointestinal: Denies abdominal pain Musculoskeletal Musculoskeletal: Reports back pain; Denies arthralgias Neurologic Neurologic: Denies focal weakness, headache(s) or numbness Physical Exam Const alert and no apparent distress Constitutional Narrative: Middle-age female, obese, fairly drowsy postoperatively but answering questions appropriately with short responses, sitting up comfortably in bed, no acute distress. General Appearance: cooperative and comfortable HEENT normocephalic, head/scalp atraumatic, hearing grossly normal bilaterally, nasal mucous membranes and turbinates normal and moist oral mucous membranes Eyes PERRL, EOMs intact bilaterally and conjunctivae normal Neck no lymphadenopathy and supple Lymph Lymphatic: no lymphadenopathy noted Chest inspection of chest normal Resp normal respiratory effort, no use of accessory muscles and clear to auscultation bilaterally Resp Narrative: Satting well on 4 L nasal cannula, no increased work of breathing noted. Mildly decreased breath sounds in bilateral lung bases, no wheezing or crackles noted. Cardio regular rate, regular rhythm, no murmurs and peripheral pulses 2+ throughout GI normal to inspection, nondistended, normoactive bowel sounds, soft to palpation, non-tender and non-distended Back/Spine normal to inspection Extremity normal to inspection and no pedal edema Skin no rashes or lesions noted Neuro no focal motor deficits and no sensory deficits noted Speech: speech normal Lab / Micro Data 08/20/23 14:30 08/20/23 14:30 Labs: Laboratory Results - last 24 hr 09/03/23 05:54: Urine Test Negative 09/03/23 06:11: POC Glucose 115 H Charges/Coding Visit Charges Inpatient E&M: 01411 Subs Hosp L2
[2023-09-03] MEDS: Ketorolac 30 MG/ML Syringe IV (20:19)
[2023-09-03] MEDS: 0.9% NaCl Peripheral Flush Adult/Peds IV (20:20)
[2023-09-03] MEDS: Senna/Docusate Sodium 1 Tablet 2 TABLET PO (22:27)
[2023-09-03] MEDS: Atorvastatin Calcium 20 MG Tablet PO (22:27)
[2023-09-03] MEDS: Topiramate 100 MG Tablet PO (22:28)
[2023-09-03] MEDS: diazePAM 5 MG Tablet PO (22:28)
[2023-09-04 01:15] VITALS: BP 133/77; PULSE 95; RESP 18; TEMP 37.1; O2SAT 98
[2023-09-04] MEDS: oxyCODONE 5 MG Tablet PO ×3 (01:18→20:42)
[2023-09-04 04:26] VITALS: BP 131/76; PULSE 98; RESP 18; TEMP 37; O2SAT 98
[2023-09-04] MEDS: Ketorolac 30 MG/ML Syringe IV (04:28)
[2023-09-04] MEDS: 0.9% NaCl Peripheral Flush Adult/Peds IV ×2 (04:28→08:28)
[2023-09-04] MEDS: Morphine 4 MG/ML Syringe IV (06:19)
[2023-09-04] MEDS: Acetaminophen 500 MG Tablet 1000 MG PO ×3 (06:20→20:43)
[2023-09-04] MEDS: Levothyroxine 88 MCG Tablet PO (06:20)
[2023-09-04] MEDS: Clindamycin 900 MG/50 ML BAG 75 MG IV (06:21)
--- NOTE | 2023-09-04 07:42 | PN.HOSP_ITS ---
Reason for Visit Reason for Visit: Diagnoses Encounter for other preprocedural examination (09/03/23) Arthrodesis status (09/03/23) Subjective Subjective Patient is a 52-year-old female who underwent lumbar fusion procedure on 09/04/[address] Ed Lipscomb. The hospitalist service was consulted to assist with management of patient medical comorbidities Objective Data Objective Data Vital Signs: Vital Signs Temp Pulse Resp BP Pulse Ox O2 Del Method O2 Flow Rate 98.6 F 98 18 131/76 H 98 Room Air 2 09/04/23 04:26 09/04/23 04:26 09/04/23 04:26 09/04/23 04:26 09/04/23 04:26 09/04/23 04:26 09/03/23 22:16 Oxygen Flow Rate (L/min) 2 Oxygen Delivery Method Room Air Weight: 99 kg Body Mass Index (BMI) 36.3 Intake & Output: Intake and Output for Last 24 Hours 09/02/23 09/03/23 09/04/23 23:59 23:59 23:59 Intake Total 5252 / 5602 750 / 750 Output Total 400 / 400 Balance 4852 / 5202 750 / 750 Lab / Micro Data 09/04/23 08:00 09/04/23 07:27 Micro: Microbiology 08/20/23 14:30 Swab (Method) Nasal Screen MRSA/MSSA - Final Physical Exam Narrative GENERAL: cooperative HEENT: Atraumatic; normocephalic EYES; Anicteric, Normal Conjunctiva NECK; supple, normal thyroid, RESPIRATORY: Diminished to auscultation CARDIOVASCULAR: Regular S1 S2, GI: soft, normoactive bowel sounds, : No Renal angle tenderness; EXTREMITIES: No edema, no clubbing, MUSCULOSKELETAL: no muscle wasting NEURO: Awake; no lateralizing signs. SKIN: No Rash PSYCH; Flat affect Assessment & Plan Assessment/Plan (1) S/P lumbar spinal fusion: PLAN: Plan Patient is a 52-year-old female who underwent lumbar fusion procedure on 09/04/[address] Ed Lipscomb. The hospitalist service was consulted to assist with management of patient medical comorbidities 1. Degenerative lumbar scoliosis with foraminal stenosis S/p L2-S1 posterior spinal fusion with decompression with Dr. Lipscomb on 09/03. Patient tolerated procedure well. Patient postoperative orders regarding PT/OT as well as pain management deferred to primary service 2. Mild postoperative hypoxia ? Requiring 4 to 5 L nasal cannula shortly after procedure, presumed secondary to procedural sedation. Lung sounds clear on exam, no increased work of breathing noted. Wean supplemental oxygen as able. ? 09/04/2023 resolved 3. Class II obesity with BMI of 36.3 ? Complicating care weight loss advised 4. Hypertension - Blood pressure controlled, home medications continued with dose adjustment as needed 5. Dyslipidemia -Patient is on statin therapy, continued at home dose 6. Peripheral neuropathy ? On gabapentin 7.M?ni?re's disease Patient is on amiloride which was held following surgery given relative h ypotension plan is to resume as needed 8. Hypothyroidism - Patient is on levothyroxine home dose continued 9. GERD ? On PPI 10. DVT prophylaxis ? Deferred to primary service Time spent in the patient's overall evaluation,decision-making process, review of diagnostic data, adjustment of management, discussion with other providers, nursing nursing and ancillary staff involved in patient's care documentation, 40 Minutes Charges/Coding Visit Charges Inpatient E&M: 47666 Subs Hosp L2
[2023-09-04 07:56] VITALS: BP 107/67; PULSE 92; RESP 18; TEMP 36.6; O2SAT 98
[2023-09-04 08:04] LABS: Anion Gap 5 (5-15); BUN 14 mg/dL (7-18); BUN/Creat Ratio 16.3 RATIO (10-20); Calcium,Total 7.7 mg/dL (8.5-10.1); Chloride 110 mmol/L (98-107); Creatinine, Serum 0.86 mg/dL (0.55-1.02); EST Glomerular Filtration Rate 74 mL/min (>60); Est Glom Filt Rate - Afr Amer 89 mL/min (>60); Estimated Creatinine Clearance 89.15 ml/min; Glucose 126 mg/dL (74-106); Potassium 3.5 mmol/L (3.5-5.1); Sodium Level 138 mmol/L (136-145)
--- NOTE | 2023-09-04 08:07 | NURSING ---
pt to bathroom to attempt to void, hat in toilet. will re-evaluate
[2023-09-04 08:13] LABS: Absolute Neutrophil Count 14.8 X10^3/uL (2.0-7.7); Basophil# 0.05 X10^3/uL; Basophil% 0.3 % (0-1); Hematocrit 32.2 % (37-47); Hemoglobin 10.3 g/dL (12.0-15.0); Lymphocyte % 9.2 % (19-41); Mean Corpuscular Hgb 30.7 pg (27.0-32.0); Mean Corpuscular Volume 96.1 fL (81-99); Mean Platelet Vol. 10.1 fl (6.2-12.0); Monocyte# 1.83 X10^3/uL; Monocyte% 9.9 % (0-10); NRBC Flagged by Analyzer 0 % (0-5); Neutrophil # 14.77 X10^3/uL (2.7-7.7); Neutrophil % 79.9 % (47-70); POSITIVE DIFFERENTIAL YES; Platelet Count 210 K/mm3 (150-450); RBC Distribution Width CV 14.4 % (11.6-14.6); RBC Distribution Width SD 50.5 fl (35.1-43.9); Red Blood Count 3.35 M/mm3 (4.2-5.4); White Blood Count 18.5 K/mm3 (4.4-11.0)
[2023-09-04] MEDS: Senna/Docusate Sodium 1 Tablet 2 TABLET PO ×2 (08:26→20:43)
[2023-09-04] MEDS: Meloxicam 15 MG Tablet PO (08:26)
[2023-09-04] MEDS: Gabapentin 600 MG Tablet PO ×2 (08:26→20:42)
[2023-09-04] MEDS: diazePAM 5 MG Tablet PO (08:27)
[2023-09-04] MEDS: lamoTRIgine 100 MG Tablet PO (08:27)
[2023-09-04] MEDS: Pantoprazole Sodium 40 MG Tablet PO (08:27)
[2023-09-04] MEDS: Topiramate 100 MG Tablet PO ×2 (08:27→20:43)
[2023-09-04] MEDS: Methocarbamol 500 MG Tablet 1000 MG PO ×4 (08:27→20:43)
[2023-09-04] MEDS: Venlafaxine XR 75 MG Capsule PO (08:28)
[2023-09-04 08:41] LABS: Differential Comment SCANNED
[2023-09-04 08:43] LABS: Differential Indicated SCAN CRITERIA MET
--- NOTE | 2023-09-04 09:14 | PN.ORTHO_ITS ---
Subjective Subjective Postop day 1 status post L2-S1 fusion. Denies any significant low back or right flank pain this morning. She does have significant hypogastric abdominal pain. I was informed earlier this morning about her inability to void and bladder scan showing more than 550 cc. She is waiting for the straight cath. She has ambulated with the help of walker to the bathroom multiple times overnight and says that her right lower extremity radicular symptoms have significantly improved. She does however feel dizzy the first time she gets up. She has not passed flatus yet. Objective Data Objective Data Vital Signs: Vital Signs Temp Pulse Resp BP Pulse Ox O2 Del Method O2 Flow Rate 97.8 F 92 18 107/67 98 Room Air 2 09/04/23 07:56 09/04/23 07:56 09/04/23 07:56 09/04/23 07:56 09/04/23 07:56 09/04/23 07:56 09/03/23 22:16 Oxygen Flow Rate (L/min) 2 Oxygen Delivery Method Room Air Weight: 218 lb 4.122 oz Body Mass Index (BMI) 36.3 Intake & Output: Intake and Output for Last 24 Hours 09/02/23 09/03/23 09/04/23 23:59 23:59 23:59 Intake Total 5252 / 5602 800 / 800 Output Total 400 / 400 Balance 4852 / 5202 800 / 800 Lab / Micro Data 09/04/23 08:00 09/04/23 07:27 Labs: Laboratory Results - last 24 hr 09/04/23 07:27: WBC Cancelled, Corrected WBC Cancelled, RBC Cancelled, Hgb Cancelled, Hct Cancelled, MCV Cancelled, MCH Cancelled, MCHC Cancelled, RDW Std Deviation Cancelled, RDW Coeff of Zoey Cancelled, Plt Count Cancelled, MPV Cancelled, Immature Gran % (Auto) Cancelled, Neut % (Auto) Cancelled, Lymph % (Auto) Cancelled, [place] % (Auto) Cancelled, Eos % (Auto) Cancelled, Baso % (Auto) Cancelled, Absolute Neuts (auto) Cancelled, Absolute Lymphs (auto) Cancelled, Total Counted Cancelled, Neutrophils % (Manual) Cancelled, Band Neutrophils % Cancelled, Lymphocytes % (Manual) Cancelled, Monocytes % (Manual) Cancelled, Eosinophils % (Manual) Cancelled, Basophils % (Manual) Cancelled, Metamyelocytes % Cancelled, Myelocytes % Cancelled, Promyelocytes % Cancelled, Blast Cells % Cancelled, Plasma Cell % (Manual) Cancelled, Other Cells % Cancelled, Nucleated RBC % Cancelled, Nucleated RBCs/100 WBC Cancelled, Differential Comment Cancelled, Diff Path Review Cancelled, Hypersegmented Neuts Cancelled, Atypical Lymphocytes Cancelled, Reactive Lymphocytes Cancelled, Smudge Cells Cancelled, Toxic Granulation Cancelled, Toxic Vacuolation Cancelled, Dohle Bodies Cancelled, Louis Rods Cancelled, Platelet Estimate Cancelled, Plt Morphology Comment Cancelled, RBC Morphology Cancelled 09/04/23 07:27: RBC Morphology Cancelled, Polychromasia Cancelled, Hypochromasia Cancelled, Poikilocytosis Cancelled, Basophilic Stippling Cancelled, Anisocytosis Cancelled, Microcytosis Cancelled, Macrocytosis Cancelled, Spherocytes Cancelled, Sickle Cells Cancelled, Target Cells Cancelled, Tear Drop Cells Cancelled, Ovalocytes Cancelled, Stomatocytes Cancelled, [place] Bodies Cancelled, Hancock Cells Cancelled, Bite Cells Cancelled, Crenated Cell Cancelled, Acanthocytes (Spur) Cancelled, Rouleaux Cancelled, Schistocytes Cancelled, Sodium 138, Potassium 3.5, Chloride 110 H, Carbon Dioxide 23.0, Anion Gap 5, BUN 14, Creatinine 0.86, Estim Creat Clear Calc 89.15, Est GFR (MDRD) Af Amer 89, Est GFR (MDRD) Non-Af 74, BUN/Creatinine Ratio 16.3, Glucose 126 H, Calcium 7.7 L 09/04/23 08:00: WBC 18.5 H, RBC 3.35 L, Hgb 10.3 L, Hct 32.2 L, MCV 96.1, MCH 30.7, MCHC 32.0, RDW Std Deviation 50.5 H, RDW Coeff of Zoey 14.4, Plt Count 210, MPV 10.1, Immature Gran % (Auto) 0.700, Neut % (Auto) 79.9 H, Lymph % (Auto) 9.2 L, [place] % (Auto) 9.9, Eos % (Auto) 0.0, Baso % (Auto) 0.3, Absolute Neuts (auto) 14.8 H, Absolute Lymphs (auto) 1.70, Nucleated RBC % 0, Differential Comment SCANNED, Diff Path Review December Micro: Microbiology 08/20/23 14:30 Swab (Method) Nasal Screen MRSA/MSSA - Final Radiography Diagnostic Testing: Radiology Impression Lumbar Spine X-Ray 09/03/23 06:30 IMPRESSION: Intraoperative imaging provided for 360 degree fusion from the L2-S1 level. Electronically Signed: Epi Villalta MD at 8:35 EST , Physical Exam Narrative Examination of the back and belly show dressings CDI. Right flank incision dressing shows mild sanguinous spotting. Neurologic evaluation of lower extremity shows 5 x 5 power in all muscles normal sensations in all dermatomes. Abdomen feels soft. Assessment & Plan Assessment/Plan (1) S/P lumbar spinal fusion: PLAN: Plan Postop day 1. Surgical pain is in good control, but uncomfortable due to the bladder retention. Hopefully this improves with straight cath. Explained to her that opioids and benzodiazepines and the fact that she had general anesthesia for 8 hours yesterday are likely the source of her bladder retention. She also has not passed flatus. She will continue with clear liquid diet. I encouraged her to not request opioids unless pain is severe. I will discontinue Valium. Meloxicam, Tylenol, Robaxin have been ordered. Encouraged her to ambulate more frequently. Also encouraged incentive spirometry. Will see PT OT today. Ordered upright x-rays today. Appreciate medicine comanagement. Likely discharge tomorrow, if passes PT, passes flatus, tolerate solid meal.
--- NOTE | 2023-09-04 09:26 | RAD_ITS ---
STUDY: X-RAY - LUMBAR SPINE REASON FOR EXAM: Female, 52 years old. s/p L2-S1 fusion -- pls do Upright AP, Lat TECHNIQUE: 2 view(s) of the lumbar spine were obtained. COMPARISON: None FINDINGS: Normal lumbar lordosis. There is no substantial scoliosis. There is a normal alignment of the vertebrae. The patient is status post interpedicular screw and mark fixation from the L2 to the S1 level with prosthetic disc placement. Normal disc space heights. A left-sided spinal stimulator is seen. Soft tissue air is seen within the right buttocks most likely due to recent surgery. RAD/Lumbar Spine 2 or 3 Views IMPRESSION: Status post fusion from the L2 through the S1 vertebral level with prosthetic disc placement. Electronically Signed: Epi Villalta MD at 10:46 EST ,
--- NOTE | 2023-09-04 11:00 | CASEMGMT ---
MARIO NORTON Assessment: Face to Face with pt for initial transition planning/care coordination assessment. RN CIERRA introduced self and role at [facility], pt voices understanding and consents to assessment. Pt is A&O x4 and answers all questions appropriately at this time. Pt sitting up in chair in no distress. Pt reports she had debilitating pain for a couple of years when she walked and now it is much relieved. Pt became tearful in talking about this. Care providers, pharmacy, and demographics verified/updated. Admitting Dx:360 lumbar fusion L2-S1 PCP:Boo Specialists: Ruel, ortho; Annabel, pain mgmt Preferred Pharmacy:[facility] Insurance:[facility] Dual Complete, [place] Prescription Benefit: yes LNOK:Chaitanya Cabral, son; Jennifer Loyd, sister Living Arrangements: Pt lives alone in a ground level apt with no steps to enter. Pt reports she was I in ADL's and denies concerns at home. Transportation: Pt does not drive, her neighbor transports her to medical appts. DME:raised toilet seat, grab bars in shower, cane, rollator HHC/SNF:Denies hx of Pt states no concerns with going home at time of dc. Pt states no further concerns/needs. CM to follow. Advised pt to ask CM if any further question/concerns/needs arise, voices understanding. Pt Goal:Home Plan:Home
[2023-09-04 11:40] VITALS: BP 101/70; PULSE 98; RESP 18; TEMP 36.4; O2SAT 100
[2023-09-04 14:28] VITALS: BP 131/77; PULSE 92; RESP 18; TEMP 36.7; O2SAT 99
--- NOTE | 2023-09-04 14:30 | NURSING ---
abdomen softer pressure is gone since being straight cath'd
[2023-09-04 20:30] VITALS: BP 126/70; PULSE 97; RESP 16; TEMP 36.6; O2SAT 96
[2023-09-04] MEDS: Atorvastatin Calcium 20 MG Tablet PO (20:42)
[2023-09-04] MEDS: Meclizine HCl 25 MG Tablet PO (20:42)
[2023-09-05] MEDS: oxyCODONE 5 MG Tablet PO ×4 (00:43→21:10)
[2023-09-05] MEDS: Morphine 4 MG/ML Syringe IV (02:14)
[2023-09-05] MEDS: 0.9% NaCl Peripheral Flush Adult/Peds IV (02:14)
[2023-09-05 02:30] VITALS: BP 124/70; PULSE 88; RESP 16; TEMP 36.6; O2SAT 94
[2023-09-05] MEDS: Acetaminophen 500 MG Tablet 1000 MG PO ×3 (06:03→21:10)
[2023-09-05] MEDS: Levothyroxine 88 MCG Tablet PO (06:03)
--- NOTE | 2023-09-05 07:36 | PN.HOSP_ITS ---
Reason for Visit Reason for Visit: Diagnoses Encounter for other preprocedural examination (09/04/23) Arthrodesis status (09/04/23) Subjective Subjective Postoperative day 2. Patient complains of having urinary retention as well as being constipated. Has been given stool softeners Objective Data Objective Data Vital Signs: Vital Signs Temp Pulse Resp BP Pulse Ox O2 Del Method O2 Flow Rate 98 F 88 16 124/70 H 94 Room Air 2 09/05/23 02:30 09/05/23 02:30 09/05/23 02:30 09/05/23 02:30 09/05/23 02:30 09/05/23 02:30 09/03/23 22:16 Oxygen Flow Rate (L/min) 2 Oxygen Delivery Method Room Air Weight: 99 kg Body Mass Index (BMI) 36.3 Intake & Output: Intake and Output for Last 24 Hours 09/03/23 09/04/23 09/05/23 23:59 23:59 23:59 Intake Total 5252 / 5602 1450 / 1450 Output Total 400 / 400 2100 / 2100 650 / 650 Balance 4852 / 5202 -650 / -650 -650 / -650 Lab / Micro Data 09/04/23 08:00 09/04/23 07:27 Labs: Laboratory Results - last 24 hr 09/04/23 07:27: WBC Cancelled, Corrected WBC Cancelled, RBC Cancelled, Hgb Cancelled, Hct Cancelled, MCV Cancelled, MCH Cancelled, MCHC Cancelled, RDW Std Deviation Cancelled, RDW Coeff of Zoey Cancelled, Plt Count Cancelled, MPV Cancelled, Immature Gran % (Auto) Cancelled, Neut % (Auto) Cancelled, Lymph % (Auto) Cancelled, Shoshone % (Auto) Cancelled, Eos % (Auto) Cancelled, Baso % (Auto) Cancelled, Absolute Neuts (auto) Cancelled, Absolute Lymphs (auto) Cancelled, Total Counted Cancelled, Neutrophils % (Manual) Cancelled, Band Neutrophils % Cancelled, Lymphocytes % (Manual) Cancelled, Monocytes % (Manual) Cancelled, Eosinophils % (Manual) Cancelled, Basophils % (Manual) Cancelled, Metamyelocytes % Cancelled, Myelocytes % Cancelled, Promyelocytes % Cancelled, Blast Cells % Cancelled, Plasma Cell % (Manual) Cancelled, Other Cells % Cancelled, Nucleated RBC % Cancelled, Nucleated RBCs/100 WBC Cancelled, Differential Comment Cancelled, Diff Path Review Cancelled, Hypersegmented Neuts Cancelled, Atypical Lymphocytes Cancelled, Reactive Lymphocytes Cancelled, Smudge Cells Cancelled, Toxic Granulation Cancelled, Toxic Vacuolation Cancelled, Dohle Bodies Cancelled, Louis Rods Cancelled, Platelet Estimate Cancelled, Plt Morphology Comment Cancelled, RBC Morphology Cancelled 09/04/23 07:27: RBC Morphology Cancelled, Polychromasia Cancelled, Hypochromasia Cancelled, Poikilocytosis Cancelled, Basophilic Stippling Cancelled, Anisocytosis Cancelled, Microcytosis Cancelled, Macrocytosis Cancelled, Spherocytes Cancelled, Sickle Cells Cancelled, Target Cells Cancelled, Tear Drop Cells Cancelled, Ovalocytes Cancelled, Stomatocytes Cancelled, [place] Bod ies Cancelled, [place] Cells Cancelled, Bite Cells Cancelled, Crenated Cell Cancelled, Acanthocytes (Spur) Cancelled, Rouleaux Cancelled, Schistocytes Cancelled, Sodium 138, Potassium 3.5, Chloride 110 H, Carbon Dioxide 23.0, Anion Gap 5, BUN 14, Creatinine 0.86, Estim Creat Clear Calc 89.15, Est GFR (MDRD) Af Amer 89, Est GFR (MDRD) Non-Af 74, BUN/Creatinine Ratio 16.3, Glucose 126 H, Calcium 7.7 L 09/04/23 08:00: WBC 18.5 H, RBC 3.35 L, Hgb 10.3 L, Hct 32.2 L, MCV 96.1, MCH 30.7, MCHC 32.0, RDW Std Deviation 50.5 H, RDW Coeff of Zoey 14.4, Plt Count 210, MPV 10.1, Immature Gran % (Auto) 0.700, Neut % (Auto) 79.9 H, Lymph % (Auto) 9.2 L, Shoshone % (Auto) 9.9, Eos % (Auto) 0.0, Baso % (Auto) 0.3, Absolute Neuts (auto) 14.8 H, Absolute Lymphs (auto) 1.70, Nucleated RBC % 0, Differential Comment SCANNED, Diff Path Review May foll Micro: Microbiology 08/20/23 14:30 Swab (Method) Nasal Screen MRSA/MSSA - Final Radiography Diagnostic Testing: Radiology Impression Lumbar Spine X-Ray 09/03/23 06:30 IMPRESSION: Intraoperative imaging provided for 360 degree fusion from the L2-S1 level. Electronically Signed: Epi Villalta MD at 8:35 EST , Lumbar Spine X-Ray 09/04/23 09:26 IMPRESSION: Status post fusion from the L2 through the S1 vertebral level with prosthetic disc placement. Electronically Signed: Epi Villalta MD at 10:46 EST , Physical Exam Narrative GENERAL: cooperative HEENT: Atraumatic; normocephalic EYES; Anicteric, Normal Conjunctiva NECK; supple, normal thyroid, RESPIRATORY: Diminished to auscultation CARDIOVASCULAR: Regular S1 S2, GI: soft, normoactive bowel sounds, : No Renal angle tenderness; EXTREMITIES: No edema, no clubbing, MUSCULOSKELETAL: no muscle wasting NEURO: Awake; no lateralizing signs. SKIN: No Rash PSYCH; Flat affect Assessment & Plan Assessment/Plan (1) S/P lumbar spinal fusion: PLAN: Plan Patient is a 52-year-old female who underwent lumbar fusion procedure on 09/04/[address] Ed Lipscomb. The hospitalist service was consulted to assist with management of patient medical comorbidities 1. Degenerative lumbar scoliosis with foraminal stenosis S/p L2-S1 posterior spinal fusion with decompression with Dr. Lipscomb on 09/03. Patient tolerated procedure well. Patient postoperative orders regarding PT/OT as well as pain management deferred to primary service ? 09/05/2023; postoperative day 2 2. Mild postoperative hypoxia ? Requiring 4 to 5 L nasal cannula shortly after procedure, presumed secondary to procedural sedation. Lung sounds clear on exam, no increased work of breathing noted. Wean supplemental oxygen as able. ? 09/04/2023 resolved 3. Class II obesity with BMI of 36.3 ? Complicating care weight loss advised 4. Hypertension - Blood pressure controlled, home medications continued with dose adjustment as needed 5. Dyslipidemia -Patient is on statin therapy, continued at home dose 6. Peripheral neuropathy ? On gabapentin 7.M?ni?re's disease Patient is on amiloride which was held following surgery given relative hypotension plan is to resume as needed 8. Hypothyroidism - Patient is on levothyroxine home dose continued 9. GERD ? On PPI 10. DVT prophylaxis ? Deferred to primary service Time spent in the patient's overall evaluation,decision-making process, review of diagnostic data, adjustment of management, discussion with other providers, nursing nursing and ancillary staff involved in patient's care documentation, 35 Minutes Charges/Coding Visit Charges Inpatient E&M: 68724 Subs Hosp L2
[2023-09-05] MEDS: Bisacodyl 10 MG Suppository RC (08:32)
[2023-09-05] MEDS: Methocarbamol 500 MG Tablet 1000 MG PO ×4 (08:32→21:09)
[2023-09-05] MEDS: Meloxicam 15 MG Tablet PO (08:33)
[2023-09-05] MEDS: Senna/Docusate Sodium 1 Tablet 2 TABLET PO (08:33)
[2023-09-05] MEDS: lamoTRIgine 100 MG Tablet PO (08:33)
[2023-09-05] MEDS: Pantoprazole Sodium 40 MG Tablet PO (08:33)
[2023-09-05] MEDS: Venlafaxine XR 75 MG Capsule PO (08:34)
[2023-09-05] MEDS: Topiramate 100 MG Tablet PO ×2 (08:34→21:09)
[2023-09-05] MEDS: Gabapentin 600 MG Tablet PO ×2 (08:38→21:09)
[2023-09-05 08:55] VITALS: BP 113/69; PULSE 110; RESP 18; TEMP 37.2; O2SAT 94
--- NOTE | 2023-09-05 10:03 | CASEMGMT ---
Addendum entered by Joann Calvo 09/05/23 16:45: [facility] calls and state they cannot accept the pt anymore. They state this is d/t insurance. Pt provided with the list of local in network [facility] agencies and asked to pick 3 agencies for referrals. Addendum entered by Joann Calvo 09/05/23 16:11: [facility] accepts and states SOC is Sunday. Addendum entered by Joann Calvo 09/05/23 15:12: List of local in-network [facility] agencies provided to the pt and pt chose [facility] as their only current choice. Referral made at this time to [facility]. Awaiting call back. Original Note: Pt states that she is having increased pain today and that she does not think she will be able to get up with therapy today. This RN CM discussed HHC vs SNF and the pt was not able to make a decision at this time. PT to see pt today. Will follow therapy recommendations.
--- NOTE | 2023-09-05 13:15 | CASEMGMT ---
Discharge Planning A list of? HH providers including quality and resource use data and consistent with the patient's preferred geographic region, medical needs, and insurance network was created in [facility].? This list was provided to the RN CIERRA. Smiley Gunderson, Discharge Planning Asst.
[2023-09-05 14:31] LABS: Pathologist Review Reviewed
[2023-09-05 14:46] VITALS: BP 111/65; PULSE 104; RESP 16; TEMP 36.6; O2SAT 96
--- NOTE | 2023-09-05 17:58 | PCM.PN.ORT ---
Subjective Subjective POD 2 s/p L2-S1 fusion. Had suppository this morning and then had a small BM with flatus. Still feels distended. Tried solid lunch but feels bloated after. Requests to go back to clear liquids. Voided spontaneously a few times but retaining 300+ post-void. Lower abdominal pain. Objective Data Objective Data Vital Signs: Vital Signs Temp Pulse Resp BP Pulse Ox O2 Del Method O2 Flow Rate 98 F 104 H 16 111/65 96 Room Air 2 09/05/23 14:46 09/05/23 14:46 09/05/23 14:46 09/05/23 14:46 09/05/23 14:46 09/05/23 14:46 09/03/23 22:16 Oxygen Flow Rate (L/min) 2 Oxygen Delivery Method Room Air Weight: 218 lb 4.122 oz Body Mass Index (BMI) 36.3 Intake & Output: Intake and Output for Last 24 Hours 09/03/23 09/04/23 09/05/23 23:59 23:59 23:59 Intake Total 5252 / 5602 1450 / 1450 600 / 600 Output Total 400 / 400 2100 / 2100 1200 / 1200 Balance 4852 / 5202 -650 / -650 -600 / -600 Lab / Micro Data 09/04/23 08:00 09/04/23 07:27 Labs: Laboratory Results - last 24 hr 08/20/23 14:40: Crossmatch See Detail 09/04/23 08:00: Diff Path Review Reviewed Micro: Microbiology 08/20/23 14:30 Swab (Method) Nasal Screen MRSA/MSSA - Final Physical Exam Narrative Dressings- CDI. Abdomen soft with some tenderness Rt upper and lower quadrants. Neuro-stable. Assessment & Plan Assessment/Plan (1) S/P lumbar spinal fusion: PLAN: Plan Will change back to clear liquids for tonight. Will repeat suppository tomorrow am if no BM and continued distension. Recommend Lopez for retention. Urology consult to see if she can go home with lopez and have urology follow-up for void trial. Will try lopez clamping trila in am. Again encourage IS. Encouraged OOB ambulation multiple times a day. Likely discharge home tomorrow. Discussed with Dr. Lao regarding abdominal tenderness- appears superficial tenderness from probably cutaneous nerve irritation. Appreciate his assessment. Will continue to monitor.
[2023-09-05 20:46] VITALS: BP 124/70; PULSE 97; RESP 16; TEMP 36.8; O2SAT 96
[2023-09-05] MEDS: Atorvastatin Calcium 20 MG Tablet PO (21:09)
[2023-09-06 03:00] VITALS: BP 127/78; PULSE 95; RESP 16; TEMP 37; O2SAT 98
[2023-09-06] MEDS: oxyCODONE 5 MG Tablet PO ×3 (03:05→22:53)
[2023-09-06] MEDS: Levothyroxine 88 MCG Tablet PO (05:29)
[2023-09-06] MEDS: Acetaminophen 500 MG Tablet 1000 MG PO ×3 (05:29→20:59)
[2023-09-06 07:33] LABS: Absolute Lymphocyte Count 1.93 X10^3/uL (0.83-4.51); Absolute Neutrophil Count 15.1 X10^3/uL (2.0-7.7); Basophil# 0.04 X10^3/uL; Basophil% 0.2 % (0-1); Eosinophil# 0.17 X10^3/uL; Eosinophils% 0.9 % (0-5); Hematocrit 27.5 % (37-47); Lymphocyte # 1.93 X10^3/ul (0.83-4.51); Lymphocyte % 10.3 % (19-41); Mean Corp Hgb Conc 32.7 g/dL (32-36); Mean Corpuscular Hgb 31.3 pg (27.0-32.0); Mean Corpuscular Volume 95.5 fL (81-99); Mean Platelet Vol. 10.3 fl (6.2-12.0); Monocyte# 1.35 X10^3/uL; Monocyte% 7.2 % (0-10); NRBC Flagged by Analyzer 0 % (0-5); Neutrophil # 15.09 X10^3/uL (2.7-7.7); Neutrophil % 80.4 % (47-70); Platelet Count 195 K/mm3 (150-450); RBC Distribution Width CV 14.1 % (11.6-14.6); RBC Distribution Width SD 50.2 fl (35.1-43.9); Red Blood Count 2.88 M/mm3 (4.2-5.4); White Blood Count 18.8 K/mm3 (4.4-11.0)
--- NOTE | 2023-09-06 07:46 | PCM.PN.HOSP ---
Reason for Visit Reason for Visit: Diagnoses Encounter for other preprocedural examination (09/04/23) Arthrodesis status (09/04/23) Subjective Subjective Patient seen had a Morillo catheter placed for urinary retention. Did respond to stool softeners and ended up developing diarrhea. Seen this morning complains of abdominal cramps. Diagnostic data reviewed Signifor hemoglobin of 9.0 and potassium of 3.0 Objective Data Objective Data Vital Signs: Vital Signs Temp Pulse Resp BP Pulse Ox O2 Del Method O2 Flow Rate 98.6 F 95 16 127/78 H 98 Room Air 2 09/06/23 03:00 09/06/23 03:00 09/06/23 03:00 09/06/23 03:00 09/06/23 03:00 09/06/23 03:00 09/03/23 22:16 Oxygen Flow Rate (L/min) 2 Oxygen Delivery Method Room Air Weight: 99 kg Body Mass Index (BMI) 36.3 Intake & Output: Intake and Output for Last 24 Hours 09/04/23 09/05/23 09/06/23 23:59 23:59 23:59 Intake Total 1450 / 1450 600 / 600 Output Total 2100 / 2100 1650 / 2050 800 / 800 Balance -650 / -650 -1050 / -1450 -800 / -800 Lab / Micro Data 09/06/23 07:07 09/06/23 07:07 Labs: Laboratory Results - last 24 hr 08/20/23 14:40: Crossmatch See Detail 09/04/23 08:00: Diff Path Review Reviewed 09/06/23 07:07: WBC 18.8 H, RBC 2.88 L, Hgb 9.0 L, Hct 27.5 L, MCV 95.5, MCH 31.3, MCHC 32.7, RDW Std Deviation 50.2 H, RDW Coeff of Zoey 14.1, Plt Count 195, MPV 10.3, Immature Gran % (Auto) 1.000 H, Neut % (Auto) 80.4 H, Lymph % (Auto) 10.3 L, Miner % (Auto) 7.2, Eos % (Auto) 0.9, Baso % (Auto) 0.2, Absolute Neuts (auto) 15.1 H, Absolute Lymphs (auto) 1.93, Nucleated RBC % 0 Micro: Microbiology 08/20/23 14:30 Swab (Method) Nasal Screen MRSA/MSSA - Final Physical Exam Narrative GENERAL: cooperative HEENT: Atraumatic; normocephalic EYES; Anicteric, Normal Conjunctiva NECK; supple, normal thyroid, RESPIRATORY: Diminished to auscultation CARDIOVASCULAR: Regular S1 S2, GI: soft, normoactive bowel sounds, : No Renal angle tenderness; EXTREMITIES: No edema, no clubbing, MUSCULOSKELETAL: no muscle wasting NEURO: Awake; no lateralizing signs. SKIN: No Rash PSYCH; Flat affect Assessment & Plan Assessment/Plan (1) S/P lumbar spinal fusion: PLAN: Plan Patient is a 52-year-old female who underwent lumbar fusion procedure on 09/04/[address] Ed Lipscomb. The hospitalist service was consulted to assist with management of patient medical comorbidities 1. Degenerative lumbar scoliosis with foraminal stenosis S/p L2-S1 posterior spinal fusion with decompression with Dr. Lipscomb on 09/03. Patient tolerated procedure well. Patient postoperative orders regarding PT/OT as well as pain management deferred to primary service ? 09/05/2023; postoperative day 2 2. Mild postoperative hypoxia ? Requiring 4 to 5 L nasal cannula shortly after procedure, presumed secondary to procedural sedation. Lung sounds clear on exam, no increased work of breathing noted. Wean supplemental oxygen as able. ? 09/04/2023 resolved 3. Class II obesity with BMI of 36.3 ? Complicating care weight loss advised 4. Hypertension - Blood pressure controlled, home medications continued with dose adjustment as needed 5. Dyslipidemia -Patient is on statin therapy, continued at home dose 6. Peripheral neuropathy ? On gabapentin 7.M?ni?re's disease Patient is on amiloride which was held following surgery given relative hypotension plan is to resume as needed 8. Hypothyroidism - Patient is on levothyroxine home dose continued 9. GERD ? On PPI 10. Hypokalemia ? Corrected per protocol 11. Anemia - Secondary to chronic disorder monitoring H&H and transfuse if patient becomes symptomatic or hemoglobin falls below 7 12. Urinary retention ? Patient had Morillo catheter placed 13. Postoperative constipation ? Treated with good results 14. DVT prophylaxis ? Deferred to primary service Time spent in the patient's overall evaluation,decision-making process, review of diagnostic data, adjustment of management, discussion with other providers, nursing nursing and ancillary staff involved in patient's care documentation, 50 Minutes Charges/Coding Visit Charges Inpatient E&M: 20415 Subs Hosp L3
[2023-09-06 07:58] LABS: Anion Gap 3 (5-15); BUN 14 mg/dL (7-18); BUN/Creat Ratio 22.8 RATIO (10-20); Chloride 114 mmol/L (98-107); Creatinine, Serum 0.61 mg/dL (0.55-1.02); EST Glomerular Filtration Rate 108 mL/min (>60); Est Glom Filt Rate - Afr Amer 131 mL/min (>60); Estimated Creatinine Clearance 125.69 ml/min; Glucose 109 mg/dL (74-106); Sodium Level 139 mmol/L (136-145)
--- NOTE | 2023-09-06 08:40 | PCM.PN.ORT ---
Subjective Subjective Postop day 3 status post L2-S1 fusion. Continues to have abdominal pain. Has only walked twice with physical therapy in the hallway, despite me requesting her to walk multiple times in the hallway with nursing. Had BM with diarrhea last night. Had Morillo last night. Objective Data Objective Data Vital Signs: Vital Signs Temp Pulse Resp BP Pulse Ox O2 Del Method O2 Flow Rate 98.6 F 95 16 127/78 H 98 Room Air 2 09/06/23 03:00 09/06/23 03:00 09/06/23 03:00 09/06/23 03:00 09/06/23 03:00 09/06/23 03:00 09/03/23 22:16 Oxygen Flow Rate (L/min) 2 Oxygen Delivery Method Room Air Weight: 218 lb 4.122 oz Body Mass Index (BMI) 36.3 Intake & Output: Intake and Output for Last 24 Hours 09/04/23 09/05/23 09/06/23 23:59 23:59 23:59 Intake Total 1450 / 1450 600 / 600 Output Total 2100 / 2100 1650 / 2050 800 / 800 Balance -650 / -650 -1050 / -1450 -800 / -800 Lab / Micro Data 09/06/23 07:07 09/06/23 07:07 Labs: Laboratory Results - last 24 hr 08/20/23 14:40: Crossmatch See Detail 09/04/23 08:00: Diff Path Review Reviewed 09/06/23 07:07: WBC 18.8 H, RBC 2.88 L, Hgb 9.0 L, Hct 27.5 L, MCV 95.5, MCH 31.3, MCHC 32.7, RDW Std Deviation 50.2 H, RDW Coeff of Zoey 14.1, Plt Count 195, MPV 10.3, Immature Gran % (Auto) 1.000 H, Neut % (Auto) 80.4 H, Lymph % (Auto) 10.3 L, Bartholomew % (Auto) 7.2, Eos % (Auto) 0.9, Baso % (Auto) 0.2, Absolute Neuts (auto) 15.1 H, Absolute Lymphs (auto) 1.93, Nucleated RBC % 0, Sodium 139, Potassium 3.0 L, Chloride 114 H, Carbon Dioxide 22.0, Anion Gap 3 L, BUN 14, Creatinine 0.61, Estim Creat Clear Calc 125.69, Est GFR (MDRD) Af Amer 131, Est GFR (MDRD) Non-Af 108, BUN/Creatinine Ratio 22.8 H, Glucose 109 H, Calcium 8.0 L Micro: Microbiology 08/20/23 14:30 Swab (Method) Nasal Screen MRSA/MSSA - Final Physical Exam Narrative Dressing CDI. Neuro stable. Abdomen soft. Assessment & Plan Assessment/Plan (1) S/P lumbar spinal fusion: PLAN: Plan I again explained to her the importance of ambulation to help with the pain. We will discontinue Morillo and do a void trial this morning. We will advance her diet to regular solids. Will hold suppository this a.m. She will benefit from multiple times ambulation in the hallway with nursing to help with the pain. Discharge likely today pending void trial.
[2023-09-06 09:31] VITALS: BP 105/60; PULSE 89; RESP 18; TEMP 36.6; O2SAT 99
[2023-09-06] MEDS: Meloxicam 15 MG Tablet PO (09:43)
[2023-09-06] MEDS: Pantoprazole Sodium 40 MG Tablet PO (09:43)
[2023-09-06] MEDS: lamoTRIgine 100 MG Tablet PO (09:43)
[2023-09-06] MEDS: Gabapentin 600 MG Tablet PO ×2 (09:43→20:59)
[2023-09-06] MEDS: Potassium Chloride 10mEq/100mL 10 MEQ/100 ML IV.SOLN. 100 MEQ IV BOLUS ×4 (09:43→13:53)
[2023-09-06] MEDS: Topiramate 100 MG Tablet PO ×2 (09:43→20:59)
[2023-09-06] MEDS: Venlafaxine XR 75 MG Capsule PO (09:43)
[2023-09-06] MEDS: Methocarbamol 500 MG Tablet 1000 MG PO ×3 (09:44→20:59)
--- NOTE | 2023-09-06 10:12 | CASEMGMT ---
Addendum entered by Joann Calvo 09/06/23 15:37: [facility] called to check on referral status. They state they need more information at this time, awaiting for further instruction. Original Note: RN CM to pt room and pt states that she would like to use [facility] for her [facility]. Referral sent via [facility] at this time.
--- NOTE | 2023-09-06 10:48 | CASEMGMT ---
Social Work SW met with pt to discuss advance directives.? Pt confirms she has completed a living will and health care POA naming her son Chaitanya Cabral.? Pt notified that documents are not on file at [facility] and SW requested they be brought in for scanning into the EMR.? SIA Quintana
[2023-09-06] MEDS: 0.9% Normal Saline (250mL Bag) 250 ML 15 ML IV (10:52)
--- NOTE | 2023-09-06 12:04 | CT_ITS ---
STUDY: CT ABDOMEN AND PELVIS WITH CONTRAST REASON FOR EXAM: Female, 52 years old. Worsening abdominal pain -- s/p L2-S1 fusion RADIATION DOSAGE (If Supplied By Facility): CTDIvol = ( 25.35 ) mGy, DLP = ( 1607.99 ) mGycm TECHNIQUE: Transaxial images were obtained from the dome of the diaphragm to the symphysis pubis without oral contrast. IV 100mL Isovue-300 was administered. Sagittal and coronal images were reconstructed. Individualized dose optimization techniques were used for this CT. COMPARISON: None. FINDINGS: Increased markings in the lingular segment of the left upper lobe suggestive of atelectasis. Mild increased markings at the right lung base suggestive of atelectasis. Coronary artery calcification. There is decreased attenuation of the liver consistent with steatosis. The gallbladder lumen is mildly distended although no evidence of gallbladder wall thickening. No evidence of gallstones on this examination. Mildly dilated common bile duct. Normal spleen. Mild atrophy of the pancreas. Normal bilateral adrenal glands. There is thickening of the posterior right perinephric space most likely secondary to the surgical approach for the lumbar fusion. Normal left kidney. Normal visualized stomach. Normal small intestine. Normal colon. The appendix is visualized and appears normal. Normal abdominal aorta. Normal inferior vena cava. Normal retroperitoneum. Normal urinary bladder. Small amount of free fluid is seen in the cul-de-sac. Small amount of air is seen within the subcutaneous fat overlying the right flank and right paraspinal regions in keeping with prior surgery. Small umbilical hernia containing fat. There is evidence of prior fusion with interpedicular screw and mark fixation from the L2 to the S1 level. Prosthetic discs are seen. . CT/Abdomen/Pelvis W IV Cont ONLY IMPRESSION: Finding suggestive of atelectasis in the lingular segment of the left upper lobe as well as right lower lobe. Postoperative changes in the spine. Postoperative soft tissue changes are seen in the subcutaneous fat overlying the right flank and right paraspinal regions. Small amount of free fluid is seen in the pelvis. Fatty infiltration of the liver. Mildly distended gallbladder. Slightly prominent common bile duct. Electronically Signed: Epi Villalta MD at 13:39 EST ,
--- NOTE | 2023-09-06 13:58 | US_ITS ---
STUDY: ABDOMINAL ULTRASOUND - RIGHT UPPER QUADRANT REASON FOR VISIT: Female, 52 years old distended gallbladder CBD TECHNIQUE: Ultrasound evaluation of the right upper quadrant was performed with real-time and static varela-scale imaging. TECHNICAL QUALITY: Adequate. COMPARISON: None. FINDINGS: Liver: The liver measures 17.8 cm. There is diffusely increased echogenicity of the liver. The bile ducts are within normal limits. There is hepatic color flow. The direction of portal flow is hepatopetal. There is no demonstrated mass lesion. Gallbladder: Normal distended gallbladder. The gallbladder wall measures 2 mm. There is a positive sonographic Waller''s sign. There is no pericholecystic fluid. There are no gallstones. Common Bile Duct (C.B.D.): The common bile duct measures mm. Pancreas: Normal size of the head, body and tail of the pancreas. There is normal echogenicity of the pancreas. There is no demonstrated pancreatic mass or cyst. Right Kidney: Normal size of the right kidney. The right kidney measures 10.7 x 5 x 5.4 cm. Normal renal cortex. The right cortex measures 1.4 cm. There is no demonstrated renal mass or cyst. There is no right hydronephrosis. US/Abdomen Limited IMPRESSION: Enlarged fatty infiltrated liver.. No evidence for gallstones however there is positive Waller sign. If concern for acute acalculous cholecystitis HIDA scan with CCK stimulation recommended for further evaluation Electronically Signed: Luther Crocker MD at 20:55 EST ,
[2023-09-06 14:40] VITALS: BP 96/58; PULSE 112; RESP 18; TEMP 36.5; O2SAT 100
[2023-09-06 14:46] LABS: ALB/GLOB Ratio 0.7 RATIO (0.9-2.4); AST(SGOT) 133 U/L (15-37); Alanine Aminotransfer ALT/SGPT 69 U/L (13-56); Albumin, Serum 2.7 g/dL (3.2-5.0); Alkaline Phosphatase 88 U/L (45-117); Anion Gap 5 (5-15); BUN 13 mg/dL (7-18); Calcium,Total 7.8 mg/dL (8.5-10.1); Chloride 111 mmol/L (98-107); Creatinine, Serum 0.72 mg/dL (0.55-1.02); EST Glomerular Filtration Rate 90 mL/min (>60); Est Glom Filt Rate - Afr Amer 108 mL/min (>60); Estimated Creatinine Clearance 106.49 ml/min; Globulin 3.9 g/dL (2.2-4.2); Glucose 141 mg/dL (74-106); Potassium 3.5 mmol/L (3.5-5.1); Protein, Total 6.6 g/dL (6.4-8.2); Sodium Level 137 mmol/L (136-145)
--- NOTE | 2023-09-06 15:54 | CASEMGMT ---
RN CM into pt room, she is aware that [facility] is unable to accept her for care. She has selected 1. [facility]. [facility] 3. [facility] as next options. Referral sent to [facility] via [facility] at this time.
--- NOTE | 2023-09-06 19:00 | CON.PCM.SX_ITS ---
Assessment & Plan Assessment/Plan (1) Right upper quadrant abdominal pain with positive Waller's Sign: PLAN: Patient is a 52-year-old, obese, female who is acutely recovering from a 5 level lumbar fusion by orthospine surgery and has postoperatively dealt with significant abdominal discomfort. She initially describes this tenderness as diffuse and exhibits signs of diffuse distention. Reviewing her CT imaging this is suggestive of possible colonic ileus with air-fluid levels within the colon. Some mild distention of the gallbladder is noted in my independent review of patient's imaging as well as what is read by radiology. However, patient has significantly more tenderness of the right upper quadrant than any of the other abdominal quadrants. Moreover, she does have a positive Waller sign. This is concerning to me as this area remains more tender than even her yuli-incisional area in the right lower quadrant that was accessed for retroperitoneal approach to perform the anterior portion of her lumbar fusion. Ultrasound imaging is pending per my recommendation, but was delayed on the account of patient having recent meal. CMP was performed and is notable for mild elevation of patient's AST, ALT, and alkaline phosphatase?although this was not in a classic cholestatic pattern. I have discussed with her my suspicion and shared that her initial picture was 1 concerning simply for a postoperative ileus, but upon exam I do have a heightened suspicion for underlying cholecystitis. If ultrasound is further suggestive would recommend continuing n.p.o. status with application of empiric IV antibiotics (noting patient does have a penicillin allergy) and tentatively proceeding for laparoscopic cholecystectomy with cholangiogram tomorrow. I have shared that this would be my recommended approach over an alternative with percutaneous cholecystostomy tube placement. This tentative plan and its rationale was also discussed with orthospine and will continue to remain in communication with them as the workup remains ongoing. HPI Consult Data Date of Consult: 09/06/23 HPI Narrative Reason for Consultation: Possible cholecystitis HPI Narrative: BRUNO PATTERSON, is a 52 F who underwent 5 level lumbar fusion with Dr. Ed Lipscomb on 09/04/2023 but postoperatively has developed significant diffuse abdominal pain and a persistent leukocytosis. Given these latter findings were more than expected for a possible postoperative ileus, the orthopedic surgery team decided to proceed with a CT of the abdomen pelvis. This demonstrated mild distention of the gallbladder and prompted this consult. Discussing symptoms more with patient she states that her pain seems to originate in the right groin and was initially relieved with either bowel movements or urination. She shares that it is hard to pass gas . She denies any relationship to food other than she has experienced some diarrhea after eating and today developed some significant flatus following ingestion of macaroni and cheese. She describes her bowel movements as initially very loose but becoming firmer. She denies any associated blood but has experienced some burning. She denies any association with nausea and declares that both the right and left side seem equally sore. She denies any prior experience of this pain before her operation and hospitalization. Patient's prior surgical history includes total hip arthroplasty and spinal cord stimulator insertion within her hip. Otherwise denies any prior abdominal surgery. FORMERLY [facility] Medical History Acute maxillary sinusitis, unspecified Ambulates with cane Anemia Anxiety Arthritis Back problem Depression Dietary restriction Easy bruising Former smoker Gastric reflux Hearing problem History of edema History of pain when walking History of ulceration Hives Hypokalemia IBS (irritable bowel syndrome) Injury of head and neck Leg cramps Loss of hearing Menieres disease Migraine headache Neuropathy Osteoarthritis Pain Pneumonia Seasonal allergies Thyroid disease Ulcer Vertigo Vision problem Vitamin deficiency Wears glasses Home Medications celecoxib 200 mg capsule 200 mg PO DAILY PAIN 12/27/16 [History Last Taken 09/02/23] dexamethasone sodium phosphate 0.1 % eye drops 1 drp OP PRN PRN [facility] 12/27/16 [History Last Taken Unknown] amiloride 5 mg tablet 1 tab PO DAILY [facility] 03/27/20 [History Last Taken 09/02/23] gabapentin 600 mg tablet 600 mg PO BID PAIN 08/17/21 [History Last Taken 09/03/23] omeprazole 40 mg capsule,delayed release 40 mg PO DAILY PER DR 08/17/21 [History Last Taken 09/03/23] ondansetron HCl 4 mg tablet 4 mg PO Q8H PRN NAUSEA 08/17/21 [History Last Taken Unknown] topiramate 100 mg tablet 100 mg PO BID MIGRAINES 08/17/21 [History Last Taken 09/02/23] fluticasone propionate 50 mcg/actuation nasal spray,suspension 2 spray PRN PRN ALLERGIES 10/21/21 [History Last Taken Unknown] venlafaxine 75 mg capsule,extended release 24 hr (Effexor XR) 75 mg PO DAILY PER DR 12/27/21 [History Last Taken 09/02/23] rosuvastatin 10 mg tablet 10 mg PO DAILY PER DR REAGAN 01/24/23 [History Last Taken 09/02/23] levothyroxine 88 mcg tablet (Levoxyl) 88 mcg PO DAILY PER DR 02/20/23 [History Last Taken 09/03/23] potassium chloride 20 mEq tablet,extended release 60 meq PO DAILY PER DR 02/20/23 [History Last Taken 09/02/23] triamterene 37.5 mg-hydrochlorothiazide 25 mg tablet 1 tab PO DAILY PER DR 02/20/23 [History Last Taken 09/02/23] cetirizine 10 mg tablet (Zyrtec) 10 mg PO DAILY PRN allergy symptoms 03/08/23 [History Last Taken 09/02/23] lamotrigine 100 mg tablet 100 mg PO DAILY PER DR 03/08/23 [History Last Taken 09/02/23] meclizine 25 mg tablet 25 mg PO TID PRN dizziness #20 tabs 05/14/23 [Rx Last Taken Unknown] cholecalciferol (vitamin D3) 25 mcg (1,000 unit) capsule (Vitamin D3) 25 mcg PO DAILY PER DR 08/20/23 [History Last Taken 09/02/23] multivitamin (Daily Multi-Vitamin tablet) 1 tab PO DAILY PER DR 08/20/23 [History Last Taken 09/02/23] Allergy/AdvReac Type Severity Reaction Status Date / Time shellfish derived Allergy Severe vomitting Verified 09/03/23 06:13 Penicillins Allergy Hives Verified 09/03/23 06:13 citric acid AdvReac Severe wears dowm Verified 09/03/23 06:13 linning of mouth duloxetine [From Cymbalta] AdvReac Intermediate Other Verified 09/03/23 06:13 gluten AdvReac Intermediate stomach Verified 09/03/23 06:13 discomfort Family History Other Alcohol abuse Anxiety Arthritis Autoimmune disease Bowel disease Colon cancer Depression Diabetes Heart disease High cholesterol Hypertension Mental disorder Psychiatric care Severe allergic reaction Thyroid disorder Surgical History H/O total hip arthroplasty S/P insertion of spinal cord stimulator Social History Smoking Status: Current every day smoker tobacco type: e-cigarettes alcohol intake: former year quit: 2016 substance use type: does not use frequency: daily ROS Gastrointestinal Gastrointestinal: Reports abdominal pain, change in bowel habits and diarrhea; Denies hematochezia, melena or nausea Lab / Micro Data 09/06/23 07:07 09/06/23 14:14 Labs: Laboratory Results - last 24 hr 09/06/23 07:07: WBC 18.8 H, RBC 2.88 L, Hgb 9.0 L, Hct 27.5 L, MCV 95.5, MCH 31.3, MCHC 32.7, RDW Std Deviation 50.2 H, RDW Coeff of Zoey 14.1, Plt Count 195, MPV 10.3, Immature Gran % (Auto) 1.000 H, Neut % (Auto) 80.4 H, Lymph % (Auto) 10.3 L, Rogers % (Auto) 7.2, Eos % (Auto) 0.9, Baso % (Auto) 0.2, Absolute Neuts (auto) 15.1 H, Absolute Lymphs (auto) 1.93, Nucleated RBC % 0, Sodium 139, Potassium 3.0 L, Chloride 114 H, Carbon Dioxide 22.0, Anion Gap 3 L, BUN 14, Creatinine 0.61, Estim Creat Clear Calc 125.69, Est GFR (MDRD) Af Amer 131, Est GFR (MDRD) Non-Af 108, BUN/Creatinine Ratio 22.8 H, Glucose 109 H, Calcium 8.0 L 09/06/23 14:14: Sodium 137, Potassium 3.5, Chloride 111 H, Carbon Dioxide 21.0, Anion Gap 5, BUN 13, Creatinine 0.72, Estim Creat Clear Calc 106.49, Est GFR (MDRD) Af Amer 108, Est GFR (MDRD) Non-Af 90, BUN/Creatinine Ratio 18.0, Glucose 141 H, Calcium 7.8 L, Total Bilirubin 0.40, AST 133 H, ALT 69 H, Alkaline Phosphatase 88, Total Protein 6.6, Albumin 2.7 L, Globulin 3.9, Albumin/Globulin Ratio 0.7 L Imagaing Radiology Impression Abdomen/Pelvis CT 09/06/23 12:04 IMPRESSION: Finding suggestive of atelectasis in the lingular segment of the left upper lobe as well as right lower lobe. Postoperative changes in the spine. Postoperative soft tissue changes are seen in the subcutaneous fat overlying the right flank and right paraspinal regions. Small amount of free fluid is seen in the pelvis. Fatty infiltration of the liver. Mildly distended gallbladder. Slightly prominent common bile duct. Electronically Signed: Epi Villalta MD at 13:39 EST , Charges/Coding Visit Charges Inpatient E&M: 34152 Init Hosp L2
[2023-09-06] MEDS: Atorvastatin Calcium 20 MG Tablet PO (20:59)
[2023-09-06 21:09] VITALS: BP 138/89; PULSE 81; RESP 16; TEMP 36.9; O2SAT 100
[2023-09-07] MEDS: Levothyroxine 88 MCG Tablet PO (04:25)
[2023-09-07] MEDS: Acetaminophen 500 MG Tablet 1000 MG PO ×3 (04:26→21:14)
[2023-09-07] MEDS: oxyCODONE 5 MG Tablet PO ×3 (04:26→19:45)
[2023-09-07 04:30] VITALS: BP 139/82; PULSE 69; RESP 16; TEMP 36.6; O2SAT 96
--- NOTE | 2023-09-07 07:24 | PCM.PN.SRG ---
Subjective Subjective Patient seen and examined during AM rounds. She describes a difficult overnight and shares that she has pain all throughout her abdomen this morning. She reports that she has had minimal gas and declares this is because she is not eating a lot. Objective Data Objective Data Vital Signs: Vital Signs Temp Pulse Resp BP Pulse Ox O2 Del Method O2 Flow Rate 98 F 69 16 139/82 H 96 Room Air 2 09/07/23 04:30 09/07/23 04:30 09/07/23 04:30 09/07/23 04:30 09/07/23 04:30 09/07/23 04:30 09/03/23 22:16 Oxygen Flow Rate (L/min) 2 Oxygen Delivery Method Room Air Weight: 218 lb 4.122 oz Body Mass Index (BMI) 36.3 Intake & Output: Intake and Output for Last 24 Hours 09/05/23 09/06/23 09/07/23 23:59 23:59 23:59 Intake Total 600 / 600 487 / 487 0 / 0 Output Total 1650 / 2050 1400 / 1400 Balance -1050 / -1450 -913 / -913 0 / 0 Lab / Micro Data 09/07/23 08:04 09/07/23 08:04 Labs: Laboratory Results - last 24 hr 09/06/23 07:07: WBC 18.8 H, RBC 2.88 L, Hgb 9.0 L, Hct 27.5 L, MCV 95.5, MCH 31.3, MCHC 32.7, RDW Std Deviation 50.2 H, RDW Coeff of Zoey 14.1, Plt Count 195, MPV 10.3, Immature Gran % (Auto) 1.000 H, Neut % (Auto) 80.4 H, Lymph % (Auto) 10.3 L, [place] % (Auto) 7.2, Eos % (Auto) 0.9, Baso % (Auto) 0.2, Absolute Neuts (auto) 15.1 H, Absolute Lymphs (auto) 1.93, Nucleated RBC % 0, Sodium 139, Potassium 3.0 L, Chloride 114 H, Carbon Dioxide 22.0, Anion Gap 3 L, BUN 14, Creatinine 0.61, Estim Creat Clear Calc 125.69, Est GFR (MDRD) Af Amer 131, Est GFR (MDRD) Non-Af 108, BUN/Creatinine Ratio 22.8 H, Glucose 109 H, Calcium 8.0 L 09/06/23 14:14: Sodium 137, Potassium 3.5, Chloride 111 H, Carbon Dioxide 21.0, Anion Gap 5, BUN 13, Creatinine 0.72, Estim Creat Clear Calc 106.49, Est GFR (MDRD) Af Amer 108, Est GFR (MDRD) Non-Af 90, BUN/Creatinine Ratio 18.0, Glucose 141 H, Calcium 7.8 L, Total Bilirubin 0.40, AST 133 H, ALT 69 H, Alkaline Phosphatase 88, Total Protein 6.6, Albumin 2.7 L, Globulin 3.9, Albumin/Globulin Ratio 0.7 L Micro: Microbiology 08/20/23 14:30 Swab (Method) Nasal Screen MRSA/MSSA - Final Radiography Diagnostic Testing: Radiology Impression Abdomen/Pelvis CT 09/06/23 12:04 IMPRESSION: Finding suggestive of atelectasis in the lingular segment of the left upper lobe as well as right lower lobe. Postoperative changes in the spine. Postoperative soft tissue changes are seen in the subcutaneous fat overlying the right flank and right paraspinal regions. Small amount of free fluid is seen in the pelvis. Fatty infiltration of the liver. Mildly distended gallbladder. Slightly prominent common bile duct. Electronically Signed: Epi Villalta MD at 13:39 EST , Abdomen Ultrasound 09/06/23 13:58 IMPRESSION: Enlarged fatty infiltrated liver.. No evidence for gallstones however there is positive Waller sign. If concern for acute acalculous cholecystitis HIDA scan with CCK stimulation recommended for further evaluation Electronically Signed: Luther Crocker MD at 20:55 EST , Physical Exam Const oriented x3 Constitutional Narrative: Mild distress from abdominal discomfort GI GI Narrative: Distended, operative dressing intact to right lower quadrant. Tenderness equal between right upper and lower abdominal quadrants. Assessment & Plan Assessment/Plan (1) Right upper quadrant abdominal pain with positive Waller's Sign: PLAN: Patient is a 52-year-old, obese, female who is acutely recovering from a 5 level lumbar fusion by orthospine surgery and has postoperatively dealt with significant abdominal discomfort. She initially describes this tenderness as diffuse and exhibits signs of diffuse distention. Reviewing her CT imaging this is suggestive of possible colonic ileus with air-fluid levels within the colon. Some mild distention of the gallbladder is noted in my independent review of patient's imaging as well as what is read by radiology. However, patient has significantly more tenderness of the right upper quadrant than any of the other abdominal quadrants. Moreover, she does have a positive Waller sign. This is concerning to me as this area remains more tender than even her yuli-incisional area in the right lower quadrant that was accessed for retroperitoneal approach to perform the anterior portion of her lumbar fusion. Patient underwent dedicated abdominal ultrasound yesterday with findings of a mildly distended gallbladder but without gallstones, gallbladder wall thickening, pericholecystic fluid, or common bile duct dilatation. Radiology did confirm the presence of a positive Waller sign and suggested possible follow-up HIDA if suspicion remains for possible acalculous cholecystitis. However, I have shared with the primary team that my suspicion for this diagnosis and this reasonably?healthy 52-year-old female who is low and instead I revert back to my initial impression that this is likely pain from a combination of colonic ileus as well as inflammation of the retroperitoneum?has commented on by radiology on patient's CT imaging. It does appear that there is been swelling of Gerota's fascia which lysed deeply to the gallbladder and could certainly cause discomfort with palpation of the right upper quadrant. Given this impression I have chosen to obtain bedside KUB to assess for bowel gas pattern and cause for patient's distention. I have also recommended to her that we focus on nonnarcotic analgesics for relief of her discomfort and improving any electrolyte derangements. Lastly I have requested her permission to administer a Dulcolax suppository as per rectal stimulation is many times beneficial in the settings for restoring normal bowel function. ? KUB shows distention of the transverse colon up to 7.8 cm consistent with this diagnosis and will thus proceed with ? Rectal suppository of 10 mg Dulcolax ordered x 1 ? Potassium is low at 3.2 today so I have ordered replacement with 40 mEq IV piggyback ? Patient encouraged to ambulate as tolerated and minimize use of narcotic Charges/Coding Visit Charges Inpatient E&M: 81321 Subs Hosp L2
--- NOTE | 2023-09-07 08:12 | PCM.PN.HOSP ---
Reason for Visit Reason for Visit: Diagnoses Right upper quadrant pain (09/04/23) Other specified symptoms and signs involving the digestive system and abdomen (09/04/23) Encounter for other preprocedural examination (09/04/23) Arthrodesis status (09/04/23) Subjective Subjective Patient was seen in consultation by general surgery in view of persistent right upper quadrant abdominal pain. Subsequent imaging studies by ultrasound did show enlarged fatty infiltrated liver, No evidence for gallstones however there is positive Waller sign Objective Data Objective Data Vital Signs: Vital Signs Temp Pulse Resp BP Pulse Ox O2 Del Method O2 Flow Rate 98 F 69 16 139/82 H 96 Room Air 2 09/07/23 04:30 09/07/23 04:30 09/07/23 04:30 09/07/23 04:30 09/07/23 04:30 09/07/23 04:30 09/03/23 22:16 Oxygen Flow Rate (L/min) 2 Oxygen Delivery Method Room Air Weight: 99 kg Body Mass Index (BMI) 36.3 Intake & Output: Intake and Output for Last 24 Hours 09/05/23 09/06/23 09/07/23 23:59 23:59 23:59 Intake Total 600 / 600 487 / 487 0 / 0 Output Total 1650 / 2050 1400 / 1400 Balance -1050 / -1450 -913 / -913 0 / 0 Lab / Micro Data 09/07/23 08:04 09/07/23 08:04 Labs: Laboratory Results - last 24 hr 09/06/23 14:14: Sodium 137, Potassium 3.5, Chloride 111 H, Carbon Dioxide 21.0, Anion Gap 5, BUN 13, Creatinine 0.72, Estim Creat Clear Calc 106.49, Est GFR (MDRD) Af Amer 108, Est GFR (MDRD) Non-Af 90, BUN/Creatinine Ratio 18.0, Glucose 141 H, Calcium 7.8 L, Total Bilirubin 0.40, AST 133 H, ALT 69 H, Alkaline Phosphatase 88, Total Protein 6.6, Albumin 2.7 L, Globulin 3.9, Albumin/Globulin Ratio 0.7 L Micro: Microbiology 08/20/23 14:30 Swab (Method) Nasal Screen MRSA/MSSA - Final Radiography Diagnostic Testing: Radiology Impression Abdomen/Pelvis CT 09/06/23 12:04 IMPRESSION: Finding suggestive of atelectasis in the lingular segment of the left upper lobe as well as right lower lobe. Postoperative changes in the spine. Postoperative soft tissue changes are seen in the subcutaneous fat overlying the right flank and right paraspinal regions. Small amount of free fluid is seen in the pelvis. Fatty infiltration of the liver. Mildly distended gallbladder. Slightly prominent common bile duct. Electronically Signed: Epi Villalta MD at 13:39 EST , Abdomen Ultrasound 09/06/23 13:58 IMPRESSION: Enlarged fatty infiltrated liver.. No evidence for gallstones however there is positive Waller sign. If concern for acute acalculous cholecystitis HIDA scan with CCK stimulation recommended for further evaluation Electronically Signed: Luther Crocker MD at 20:55 EST , Physical Exam Narrative GENERAL: Patient is restless and tearful HEENT: Atraumatic; normocephalic EYES; Anicteric, Normal Conjunctiva NECK; supple, normal thyroid, RESPIRATORY: Diminished to auscultation CARDIOVASCULAR: Regular S1 S2, GI: soft, normoactive bowel sounds, : No Renal angle tenderness; EXTREMITIES: No edema, no clubbing, MUSCULOSKELETAL: no muscle wasting NEURO: Awake; no lateralizing signs. SKIN: No Rash PSYCH; Flat affect Assessment & Plan Assessment/Plan (1) S/P lumbar spinal fusion: PLAN: Plan Patient is a 52-year-old female who underwent lumbar fusion procedure on 09/04/[address] Ed Lipscomb. The hospitalist service was consulted to assist with management of patient medical comorbidities 1. Degenerative lumbar scoliosis with foraminal stenosis S/p L2-S1 posterior spinal fusion with decompression with Dr. Lipscomb on 09/03. Patient tolerated procedure well. Patient postoperative orders regarding PT/OT as well as pain management deferred to primary service ? 09/05/2023; postoperative day 2 2. Mild postoperative hypoxia ? Requiring 4 to 5 L nasal cannula shortly after procedure, presumed secondary to procedural sedation. Lung sounds clear on exam, no increased work of breathing noted. Wean supplemental oxygen as able. ? 09/04/2023 resolved 3. Class II obesity with BMI of 36.3 ? Complicating care weight loss advised 4. Hypertension - Blood pressure controlled, home medications continued with dose adjustment as needed 5. Dyslipidemia -Patient is on statin therapy, continued at home dose 6. Peripheral neuropathy ? On gabapentin 7.M?ni?re's disease Patient is on amiloride which was held following surgery given relative hypotension plan is to resume as needed 8. Hypothyroidism - Patient is on levothyroxine home dose continued 9. GERD ? On PPI 10. Hypokalemia ? Corrected per protocol 11. Anemia - Secondary to chronic disorder monitoring H&H and transfuse if patient becomes symptomatic or hemoglobin falls below 7 12. Urinary retention ? Patient had Morillo catheter placed 13. Postoperative constipation ? Treated with good results 14. DVT prophylaxis ? Deferred to primary service 15. Mood disorder ? Patient is on Lamictal. Ativan added as needed for anxiety Time spent in the patient's overall evaluation,decision-making process, review of diagnostic data, adjustment of management, discussion with other providers, nursing nursing and ancillary staff involved in patient's care documentation, 50 Minutes Charges/Coding Visit Charges Inpatient E&M: 10242 Subs Hosp L2
[2023-09-07 08:16] LABS: Absolute Lymphocyte Count 2.28 X10^3/uL (0.83-4.51); Absolute Neutrophil Count 9.7 X10^3/uL (2.0-7.7); Basophil# 0.08 X10^3/uL; Basophil% 0.6 % (0-1); Eosinophil# 0.37 X10^3/uL; Eosinophils% 2.8 % (0-5); Hematocrit 27.2 % (37-47); Hemoglobin 8.9 g/dL (12.0-15.0); Lymphocyte # 2.28 X10^3/ul (0.83-4.51); Lymphocyte % 17.2 % (19-41); Mean Corp Hgb Conc 32.7 g/dL (32-36); Mean Corpuscular Hgb 30.7 pg (27.0-32.0); Mean Corpuscular Volume 93.8 fL (81-99); Monocyte# 0.62 X10^3/uL; Monocyte% 4.7 % (0-10); NRBC Flagged by Analyzer 0.2 % (0-5); Neutrophil # 9.72 X10^3/uL (2.7-7.7); Neutrophil % 73.6 % (47-70); Platelet Count 251 K/mm3 (150-450); RBC Distribution Width CV 14.3 % (11.6-14.6); RBC Distribution Width SD 48.7 fl (35.1-43.9); White Blood Count 13.2 K/mm3 (4.4-11.0)
--- NOTE | 2023-09-07 08:30 | RAD_ITS ---
INDICATION: f/u possible colonic ileus EXAMINATION/TECHNIQUE: X-RAY - XR Abdomen W/ Decub and/or Erect Views COMPARISON: Scan of the abdomen and pelvis of 09/06/2023. FINDINGS: BOWEL GAS PATTERN: Nonspecific somewhat dilated gaseous bowel loops and colon with air present in the region of the rectum likely due to ileus. FREE AIR: No definite free air although the decubitus view is suboptimal. ORGANOMEGALY: Not seen. CALCIFICATIONS: No abnormal calcifications observed. LOWER CHEST: No acute pathology. BONES AND SOFT TISSUES: Fusion of the lumbar spine with pedicle screws. Pain management wires and thoracic and lumbar spine. RAD/Abd Decub and/or Erect(Portabl IMPRESSION: Nonspecific mildly distended gaseous bowel loops and colon likely due to ileus. Suggest a follow-up exam. Electronically Signed: Jayden Hernandez MD at 9:33 EST ,
[2023-09-07 08:42] LABS: ALB/GLOB Ratio 0.7 RATIO (0.9-2.4); AST(SGOT) 98 U/L (15-37); Alanine Aminotransfer ALT/SGPT 72 U/L (13-56); Albumin, Serum 2.4 g/dL (3.2-5.0); Alkaline Phosphatase 84 U/L (45-117); Anion Gap 3 (5-15); BUN 15 mg/dL (7-18); BUN/Creat Ratio 23.3 RATIO (10-20); Calcium,Total 8.1 mg/dL (8.5-10.1); Chloride 116 mmol/L (98-107); Creatinine, Serum 0.64 mg/dL (0.55-1.02); EST Glomerular Filtration Rate 103 mL/min (>60); Est Glom Filt Rate - Afr Amer 124 mL/min (>60); Globulin 3.6 g/dL (2.2-4.2); Glucose 99 mg/dL (74-106); Potassium 3.2 mmol/L (3.5-5.1); Sodium Level 141 mmol/L (136-145)
--- NOTE | 2023-09-07 09:14 | CASEMGMT ---
TC to [facility] at this time and they state they are looking into the referral now and will call back.
[2023-09-07 09:44] VITALS: BP 143/109; PULSE 87; RESP 18; TEMP 36.4; O2SAT 100
[2023-09-07] MEDS: Gabapentin 600 MG Tablet PO ×2 (09:54→21:14)
[2023-09-07] MEDS: Bisacodyl 10 MG Suppository RC (09:54)
[2023-09-07] MEDS: Methocarbamol 500 MG Tablet 1000 MG PO ×4 (09:55→21:14)
[2023-09-07] MEDS: Topiramate 100 MG Tablet PO ×2 (09:55→21:14)
[2023-09-07] MEDS: lamoTRIgine 100 MG Tablet PO (09:55)
[2023-09-07] MEDS: Venlafaxine XR 75 MG Capsule PO (09:55)
[2023-09-07] MEDS: Pantoprazole Sodium 40 MG Tablet PO (09:55)
[2023-09-07] MEDS: Meloxicam 15 MG Tablet PO (09:55)
[2023-09-07] MEDS: 0.9% NaCl Peripheral Flush Adult/Peds IV (10:46)
[2023-09-07] MEDS: Potassium Chloride Oral Tablet 20 MEQ 40 MEQ PO (10:46)
[2023-09-07] MEDS: LORazepam 2 MG/ML Syringe 1 MG IV (10:47)
--- NOTE | 2023-09-07 11:18 | PN.ORTHO_ITS ---
Subjective Subjective Postop day 4 status post L2-S1 fusion. Underwent CT abdomen, ultrasound right upper quadrant for distended gallbladder yesterday. Dr. Cesar following. Today she says it hurts all over and the abdomen in the back and the right groin and anterior thigh region. She was able to walk once yesterday in the hallway. Seen in conjunction with Dr. Raya today. Also saw her last night with Dr. Lao. Objective Data Objective Data Vital Signs: Vital Signs Temp Pulse Resp BP Pulse Ox O2 Del Method O2 Flow Rate 97.6 F L 87 18 143/109 H 100 Room Air 2 09/07/23 09:44 09/07/23 09:44 09/07/23 09:44 09/07/23 09:44 09/07/23 09:44 09/07/23 09:44 09/03/23 22:16 Oxygen Flow Rate (L/min) 2 Oxygen Delivery Method Room Air Weight: 218 lb 4.122 oz Body Mass Index (BMI) 36.3 Intake & Output: Intake and Output for Last 24 Hours 09/05/23 09/06/23 09/07/23 23:59 23:59 23:59 Intake Total 600 / 600 487 / 487 0 / 0 Output Total 1650 / 2050 1400 / 1400 Balance -1050 / -1450 -913 / -913 0 / 0 Lab / Micro Data 09/07/23 08:04 09/07/23 08:04 Labs: Laboratory Results - last 24 hr 09/06/23 14:14: Sodium 137, Potassium 3.5, Chloride 111 H, Carbon Dioxide 21.0, Anion Gap 5, BUN 13, Creatinine 0.72, Estim Creat Clear Calc 106.49, Est GFR (MDRD) Af Amer 108, Est GFR (MDRD) Non-Af 90, BUN/Creatinine Ratio 18.0, Glucose 141 H, Calcium 7.8 L, Total Bilirubin 0.40, AST 133 H, ALT 69 H, Alkaline Phosphatase 88, Total Protein 6.6, Albumin 2.7 L, Globulin 3.9, Albumin/Globulin Ratio 0.7 L 09/07/23 08:04: WBC 13.2 H, RBC 2.90 L, Hgb 8.9 L, Hct 27.2 L, MCV 93.8, MCH 30.7, MCHC 32.7, RDW Std Deviation 48.7 H, RDW Coeff of Zoey 14.3, Plt Count 251, MPV 10.0, Immature Gran % (Auto) 1.100 H, Neut % (Auto) 73.6 H, Lymph % (Auto) 17.2 L, [place] % (Auto) 4.7, Eos % (Auto) 2.8, Baso % (Auto) 0.6, Absolute Neuts (auto) 9.7 H, Absolute Lymphs (auto) 2.28, Nucleated RBC % 0.2, Sodium 141, Potassium 3.2 L, Chloride 116 H, Carbon Dioxide 22.0, Anion Gap 3 L, BUN 15, Creatinine 0.64, Estim Creat Clear Calc 119.80, Est GFR (MDRD) Af Amer 124, Est GFR (MDRD) Non-Af 103, BUN/Creatinine Ratio 23.3 H, Glucose 99, Calcium 8.1 L, Total Bilirubin 0.40, AST 98 H, ALT 72 H, Alkaline Phosphatase 84, Total Protein 6.0 L, Albumin 2.4 L, Globulin 3.6, Albumin/Globulin Ratio 0.7 L Micro: Microbiology 08/20/23 14:30 Swab (Method) Nasal Screen MRSA/MSSA - Final Radiography Diagnostic Testing: Radiology Impression Abdomen/Pelvis CT 09/06/23 12:04 IMPRESSION: Finding suggestive of atelectasis in the lingular segment of the left upper lobe as well as right lower lobe. Postoperative changes in the spine. Postoperative soft tissue changes are seen in the subcutaneous fat overlying the right flank and right paraspinal regions. Small amount of free fluid is seen in the pelvis. Fatty infiltration of the liver. Mildly distended gallbladder. Slightly prominent common bile duct. Electronically Signed: Epi Villalta MD at 13:39 EST , Abdomen Ultrasound 09/06/23 13:58 IMPRESSION: Enlarged fatty infiltrated liver.. No evidence for gallstones however there is positive Waller sign. If concern for acute acalculous cholecystitis HIDA scan with CCK stimulation recommended for further evaluation Electronically Signed: Luther Crocker MD at 20:55 EST , Abdomen X-Ray 09/07/23 08:30 IMPRESSION: Nonspecific mildly distended gaseous bowel loops and colon likely due to ileus. Suggest a follow-up exam. Electronically Signed: Jayden Hernandez MD at 9:33 EST , Physical Exam Narrative Examination of the back and belly show dressings CDI. Neurologic evaluation of lower extremity shows 5 x 5 power in all muscles. Right hip flexion is painful. Abdomen is soft. Says yes to pain on palpation in all 4 quadrants. No guarding Assessment & Plan Assessment/Plan (1) S/P lumbar spinal fusion: PLAN: Plan I reviewed the CT abdomen done yesterday. Spinal hardware looks in good position without any changes from postop day [address] x-[address] CT showed distended gallbladder and right lower lobe atelectasis. Gas shadow suggestive of ileus were noted, however patient has had diarrhea and flatus over the last 2 days and is already on bowel regimen. She will get another suppository this morning per Dr. Cesar. No surgery for now for gallbladder distention per Dr. Cesar. Right hip groin and anterior thigh pain is likely from baseline right hip osteoarthritis. Again encouraged incentive spirometry frequently. Explained to her the right lower lobe atelectasis is likely result of inadequate Attempts at incentive spirometry. Agree with aggressive bowel regimen. Appreciate Dr. Cesar assessment. Appreciate Dr. Raya and Dr. Lao assessments as well. Again encouraged her to ambulate in the hallway multiple times a day as this would improve her ileus and also help her with the hip arthritic pain. Again explained the importance of ambulation to prevent recumbency complications. I believe she will benefit from rehab placement on discharge.
--- NOTE | 2023-09-07 11:52 | CASEMGMT ---
Discharge Planning A list of [facility] providers including quality and resource use data and consistent with the patient's preferred geographic region, medical needs, and insurance network was created in [employer] Guide.? This list was provided to the SW. Smiley Gunderson Discharge Planning Asst.
[2023-09-07 14:34] VITALS: BP 139/83; PULSE 92; RESP 18; TEMP 36.3; O2SAT 100
--- NOTE | 2023-09-07 16:43 | CASEMGMT ---
Social Work SW received referral from physicians requesting pt go to Inpatient Rehab. SW met with pt and her father and introduced self and role of SW. SW discussed recommendations from physicians and pt is agreeable to Inpatient rehab referral. A list of RU providers including quality and resource use data and consistent with the patient?s preferred geographic region, medical needs, and insurance network were provided from the [employer] Guide. Pt preferred provider is [facility]. Referral made. SW will await determination of acceptance. Plan: Inpatient Rehab, pending acceptance and precert SIA Quintana
[2023-09-07 19:50] VITALS: BP 153/85; PULSE 70; RESP 16; TEMP 36.6; O2SAT 100
[2023-09-07] MEDS: Atorvastatin Calcium 20 MG Tablet PO (21:14)
--- NOTE | 2023-09-07 21:32 | CASEMGMT ---
MARIO NORTON NOTE: E-mail received from Nelsy, intake liaison for [facility], stating Dr Robbins agreeable to accepting pt. Wade CORNEJO RN CM
[2023-09-08 02:00] VITALS: BP 147/68; PULSE 88; RESP 16; TEMP 36.5; O2SAT 100
[2023-09-08] MEDS: oxyCODONE 5 MG Tablet PO ×4 (02:07→21:46)
[2023-09-08] MEDS: Levothyroxine 88 MCG Tablet PO (05:29)
[2023-09-08] MEDS: Acetaminophen 500 MG Tablet 1000 MG PO ×3 (05:30→21:37)
--- NOTE | 2023-09-08 08:10 | RAD_ITS ---
INDICATION: ileus EXAMINATION/TECHNIQUE: X-RAY - XR Abdomen 1 View COMPARISON: September 07, 2023 FINDINGS: BOWEL GAS PATTERN: There are stable dilated and gas-filled segments of ascending and transverse colon. There is gas within the expected region of the rectum. FREE AIR: Not assessed on a single supine view. ORGANOMEGALY: Not seen. CALCIFICATIONS: No abnormal calcifications observed. LOWER CHEST: No acute pathology. BONES AND SOFT TISSUES: There are postsurgical changes of the lumbosacral spine. RAD/Abdomen Single View (Portable) IMPRESSION: Findings concerning for a stable colonic ileus. Electronically Signed: Yanet Gaona MD at 9:19 EST ,
--- NOTE | 2023-09-08 08:17 | PCM.PN.HOSP ---
Reason for Visit Reason for Visit: Diagnoses Right upper quadrant pain (09/04/23) Other specified symptoms and signs involving the digestive system and abdomen (09/04/23) Encounter for other preprocedural examination (09/04/23) Arthrodesis status (09/04/23) Subjective Subjective Patient seen still complains of back pain as well as abdominal pain. Workups have so far been unremarkable. Plan is for patient to be discharged to to the inpatient rehab unit when medically stable Objective Data Objective Data Vital Signs: Vital Signs Temp Pulse Resp BP Pulse Ox O2 Del Method O2 Flow Rate 97.7 F L 88 16 147/68 H 100 Room Air 2 09/08/23 02:00 09/08/23 02:00 09/08/23 02:00 09/08/23 02:00 09/08/23 02:00 09/08/23 02:00 09/03/23 22:16 Oxygen Flow Rate (L/min) 2 Oxygen Delivery Method Room Air Weight: 99 kg Body Mass Index (BMI) 36.3 Intake & Output: Intake and Output for Last 24 Hours 09/06/23 09/07/23 09/08/23 23:59 23:59 23:59 Intake Total 487 / 487 0 / 0 Output Total 1400 / 1400 Balance -913 / -913 0 / 0 Lab / Micro Data 09/07/23 08:04 09/07/23 08:04 Labs: Laboratory Results - last 24 hr 09/07/23 08:04: WBC 13.2 H, RBC 2.90 L, Hgb 8.9 L, Hct 27.2 L, MCV 93.8, MCH 30.7, MCHC 32.7, RDW Std Deviation 48.7 H, RDW Coeff of Zoey 14.3, Plt Count 251, MPV 10.0, Immature Gran % (Auto) 1.100 H, Neut % (Auto) 73.6 H, Lymph % (Auto) 17.2 L, [place] % (Auto) 4.7, Eos % (Auto) 2.8, Baso % (Auto) 0.6, Absolute Neuts (auto) 9.7 H, Absolute Lymphs (auto) 2.28, Nucleated RBC % 0.2, Sodium 141, Potassium 3.2 L, Chloride 116 H, Carbon Dioxide 22.0, Anion Gap 3 L, BUN 15, Creatinine 0.64, Estim Creat Clear Calc 119.80, Est GFR (MDRD) Af Amer 124, Est GFR (MDRD) Non-Af 103, BUN/Creatinine Ratio 23.3 H, Glucose 99, Calcium 8.1 L, Total Bilirubin 0.40, AST 98 H, ALT 72 H, Alkaline Phosphatase 84, Total Protein 6.0 L, Albumin 2.4 L, Globulin 3.6, Albumin/Globulin Ratio 0.7 L Micro: Microbiology 08/20/23 14:30 Swab (Method) Nasal Screen MRSA/MSSA - Final Radiography Diagnostic Testing: Radiology Impression Abdomen X-Ray 09/07/23 08:30 IMPRESSION: Nonspecific mildly distended gaseous bowel loops and colon likely due to ileus. Suggest a follow-up exam. Electronically Signed: Jayden Hernandez MD at 9:33 EST , Physical Exam Narrative GENERAL: Patient is restless and tearful HEENT: Atraumatic; normocephalic EYES; Anicteric, Normal Conjunctiva NECK; supple, normal thyroid, RESPIRATORY: Diminished to auscultation CARDIOVASCULAR: Regular S1 S2, GI: soft, normoactive bowel sounds, : No Renal angle tenderness; EXTREMITIES: No edema, no clubbing, MUSCULOSKELETAL: no muscle wasting NEURO: Awake; no lateralizing signs. SKIN: No Rash PSYCH; Flat affect Assessment & Plan Assessment/Plan (1) S/P lumbar spinal fusion: PLAN: Plan Patient is a 52-year-old female who underwent lumbar fusion procedure on 09/04/[address] Ed Lipscomb. The hospitalist service was consulted to assist with management of patient medical comorbidities 1. Degenerative lumbar scoliosis with foraminal stenosis S/p L2-S1 posterior spinal fusion with decompression with Dr. Lipscomb on 09/03. Patient tolerated procedure well. Patient postoperative orders regarding PT/OT as well as pain management deferred to primary service ? 09/05/2023; postoperative day 2 ? 09/08/2023; Patient seen still complains of back pain as well as abdominal pain. Workups have so far been unremarkable. Plan is for patient to be discharged to to the inpatient rehab unit when medically stable 2. Mild postoperative hypoxia ? Requiring 4 to 5 L nasal cannula shortly after procedure, presumed secondary to procedural sedation. Lung sounds clear on exam, no increased work of breathing noted. Wean supplemental oxygen as able. ? 09/04/2023 resolved 3. Class II obesity with BMI of 36.3 ? Complicating care weight loss advised 4. Hypertension - Blood pressure controlled, home medications continued with dose adjustment as needed 5. Dyslipidemia -Patient is on statin therapy, continued at home dose 6. Peripheral neuropathy ? On gabapentin 7.M?ni?re's disease Patient is on amiloride which was held following surgery given relative hypotension plan is to resume as needed 8. Hypothyroidism - Patient is on levothyroxine home dose continued 9. GERD ? On PPI 10. Hypokalemia ? Corrected per protocol 11. Anemia - Secondary to chronic disorder monitoring H&H and transfuse if patient becomes symptomatic or hemoglobin falls below 7 12. Urinary retention ? Patient had Morillo catheter placed 13. Postoperative constipation ? Treated with good results 14. DVT prophylaxis ? Deferred to primary service 15. Mood disorder ? Patient is on Lamictal. Ativan added as needed for anxiety Time spent in the patient's overall evaluation,decision-making process, review of diagnostic data, adjustment of management, discussion with other providers, nursing nursing and ancillary staff involved in patient's care documentation, 40 Minutes Charges/Coding Visit Charges Inpatient E&M: 66095 Subs Hosp L2
--- NOTE | 2023-09-08 09:54 | PN.SURG_ITS ---
Subjective Subjective The patient had a bowel movement this morning and she reports she passed a little bit of gas today. She is still complaining of pain down her right leg and she says that it radiates up into her abdomen. She is complaining of diffuse abdominal pain but she denies any nausea or vomiting and says she tolerated all of her clears yesterday with no issue. Objective Data Objective Data Vital Signs: Vital Signs Temp Pulse Resp BP Pulse Ox O2 Del Method O2 Flow Rate 97.7 F L 88 16 147/68 H 100 Room Air 2 09/08/23 02:00 09/08/23 02:00 09/08/23 02:00 09/08/23 02:00 09/08/23 02:00 09/08/23 02:00 09/03/23 22:16 Oxygen Flow Rate (L/min) 2 Oxygen Delivery Method Room Air Weight: 218 lb 4.122 oz Body Mass Index (BMI) 36.3 Intake & Output: Intake and Output for Last 24 Hours 09/06/23 09/07/23 09/08/23 23:59 23:59 23:59 Intake Total 487 / 487 0 / 0 Output Total 1400 / 1400 Balance -913 / -913 0 / 0 Lab / Micro Data 09/07/23 08:04 09/07/23 08:04 Micro: Microbiology 08/20/23 14:30 Swab (Method) Nasal Screen MRSA/MSSA - Final Radiography Diagnostic Testing: Radiology Impression KUB X-Ray 09/08/23 08:10 IMPRESSION: Findings concerning for a stable colonic ileus. Electronically Signed: Yanet Gaona MD at 9:19 EST , Physical Exam Const oriented x3 and no apparent distress Resp normal respiratory effort GI soft to palpation Inspection: abdominal distention Assessment & Plan Assessment/Plan (1) Ileus: PLAN: The patient had another KUB this morning which showed stable colonic ileus but the patient is having bowel function and she says she is passing gas and had a bowel movement this morning. Patient is still complaining of severe lower abdominal pain and she says it radiates down the right leg but she says that when she sits on the toilet it is very painful on her right leg and she says it hurts to pass gas or have a bowel movement and it radiates down the right leg. Unsure if this is related to the spine surgery. The small bowel did not appear distended and the colon did not appear very distended on the x-ray. She is having bowel function so the x-ray may be lagging behind her physical exam a few days. I will try a regular diet and I told her to take it easy and stop if she has any nausea. She had a gallbladder ultrasound yesterday that showed no gallstones but there was positive Waller sign but she is kind of tender all throughout her abdomen I do not believe she has a calculus cholecystitis. I will order repeat KUB for the morning and give her a trial of regular diet. Vipul Noel MD Pager: [facility] [address] [place] [address], [address] [place] [address] Office:
[2023-09-08 10:08] VITALS: BP 143/98; PULSE 79; RESP 16; TEMP 37.1; O2SAT 100
[2023-09-08] MEDS: Methocarbamol 500 MG Tablet 1000 MG PO ×4 (10:24→21:05)
[2023-09-08] MEDS: Senna/Docusate Sodium 1 Tablet 2 TABLET PO ×2 (10:24→21:40)
[2023-09-08] MEDS: Pantoprazole Sodium 40 MG Tablet PO (10:25)
[2023-09-08] MEDS: Topiramate 100 MG Tablet PO ×2 (10:25→21:12)
[2023-09-08] MEDS: Venlafaxine XR 75 MG Capsule PO (10:26)
[2023-09-08] MEDS: lamoTRIgine 100 MG Tablet PO (10:27)
[2023-09-08] MEDS: Gabapentin 600 MG Tablet PO ×2 (10:29→21:04)
[2023-09-08] MEDS: Meloxicam 15 MG Tablet PO (10:29)
--- NOTE | 2023-09-08 11:37 | PN.ORTHO_ITS ---
Subjective Subjective Still continues to be in pain points out in the right groin and anterior medial thigh region. No pain below the knee. Also has back pain. As treatment of spinal cord stimulator as she says that this may be disturbing her sleep. Had BM and flatus. Had solid regular diet meal this morning. Abdomen hurts all over. Objective Data Objective Data Vital Signs: Vital Signs Temp Pulse Resp BP Pulse Ox O2 Del Method O2 Flow Rate 98.8 F 79 16 143/98 H 100 Room Air 2 09/08/23 10:08 09/08/23 10:08 09/08/23 10:08 09/08/23 10:08 09/08/23 10:08 09/08/23 10:08 09/03/23 22:16 Oxygen Flow Rate (L/min) 2 Oxygen Delivery Method Room Air Weight: 218 lb 4.122 oz Body Mass Index (BMI) 36.3 Intake & Output: Intake and Output for Last 24 Hours 09/06/23 09/07/23 09/08/23 23:59 23:59 23:59 Intake Total 487 / 487 0 / 0 Output Total 1400 / 1400 Balance -913 / -913 0 / 0 Lab / Micro Data 09/07/23 08:04 09/07/23 08:04 Micro: Microbiology 08/20/23 14:30 Swab (Method) Nasal Screen MRSA/MSSA - Final Radiography Diagnostic Testing: Radiology Impression KUB X-Ray 09/08/23 08:10 IMPRESSION: Findings concerning for a stable colonic ileus. Electronically Signed: Yanet Gaona MD at 9:19 EST , Physical Exam Narrative Dressings CDI. Neurologic examination is stable with 5 of 5 strength in lower extremities except for right hip flexion which is painful. Assessment & Plan Assessment/Plan (1) S/P lumbar spinal fusion: PLAN: Plan Postop day 5. Continues to be in pain. Added lidocaine patch x 2 to be applied in the anterior groin as well as superior medial thigh region. Groin and anterior thigh pain likely from baseline right hip arthritis. Advised continued mobility to help with inflammatory pain in the right hip. KUB x-ray reviewed. All spinal hardware appears intact in good position unch anged from postop day 1 x-ray. Rehab placement pending. Appreciate general surgery and internal medicine comanagement.
[2023-09-08] MEDS: Lidocaine 5% Patch 2 PATCH TOPICAL (12:28)
[2023-09-08] MEDS: Ensure Surgery 237 ML LIQUID PO ×2 (12:34→17:40)
[2023-09-08 13:31] VITALS: BP 129/89; PULSE 92; RESP 16; TEMP 36.7; O2SAT 100
[2023-09-08 21:00] VITALS: BP 149/81; PULSE 73; RESP 16; TEMP 36.9; O2SAT 99
[2023-09-08] MEDS: Atorvastatin Calcium 20 MG Tablet PO (21:09)
[2023-09-08] MEDS: LORazepam 2 MG/ML Syringe 1 MG IV (22:20)
--- NOTE | 2023-09-09 02:10 | PCM.HOSP.N ---
Hospitalist Note Patient per RN with severe muscle spasms and notable breakthrough pain requesting regimen changes. Will change her ativan to include muscle spasms, will change oral pain regimen to oxy 5-10 mg with parameters and given x 1 dose IV dilaudid now.
[2023-09-09] MEDS: HYDROmorphone 1 MG/ML Syringe 0.5 MG IV (02:49)
[2023-09-09 03:00] VITALS: BP 126/84; PULSE 82; RESP 16; TEMP 36.3; O2SAT 97
[2023-09-09] MEDS: Levothyroxine 88 MCG Tablet PO (06:56)
[2023-09-09] MEDS: Acetaminophen 500 MG Tablet 1000 MG PO ×3 (06:56→20:13)
[2023-09-09] MEDS: oxyCODONE 5 MG Tablet PO ×4 (07:00→22:27)
--- NOTE | 2023-09-09 07:08 | PCM.PN.HOSP ---
Reason for Visit Reason for Visit: Diagnoses Ileus, unspecified (09/04/23) Right upper quadrant pain (09/04/23) Other specified symptoms and signs involving the digestive system and abdomen (09/04/23) Encounter for other preprocedural examination (09/04/23) Arthrodesis status (09/04/23) Subjective Subjective Imaging studies obtained today prior did show colonic ileus. Patient seen this a.m. overall clinical condition improving.. Plan is for patient to be transferred to inpatient rehab unit pending insurance precertification Objective Data Objective Data Vital Signs: Vital Signs Temp Pulse Resp BP Pulse Ox O2 Del Method O2 Flow Rate 97.4 F L 82 16 126/84 H 97 Room Air 2 09/09/23 03:00 09/09/23 03:00 09/09/23 03:00 09/09/23 03:00 09/09/23 03:00 09/09/23 03:00 09/03/23 22:16 Oxygen Flow Rate (L/min) 2 Oxygen Delivery Method Room Air Weight: 99 kg Body Mass Index (BMI) 36.3 Intake & Output: Intake and Output for Last 24 Hours 09/07/23 09/08/23 09/09/23 23:59 23:59 23:59 Intake Total 0 / 0 Balance 0 / 0 Lab / Micro Data 09/07/23 08:04 09/07/23 08:04 Micro: Microbiology 08/20/23 14:30 Swab (Method) Nasal Screen MRSA/MSSA - Final Radiography Diagnostic Testing: Radiology Impression KUB X-Ray 09/08/23 08:10 IMPRESSION: Findings concerning for a stable colonic ileus. Electronically Signed: Yanet Gaona MD at 9:19 EST , Physical Exam Narrative GENERAL: Patient is restless and tearful HEENT: Atraumatic; normocephalic EYES; Anicteric, Normal Conjunctiva NECK; supple, normal thyroid, RESPIRATORY: Diminished to auscultation CARDIOVASCULAR: Regular S1 S2, GI: soft, normoactive bowel sounds, : No Renal angle tenderness; EXTREMITIES: No edema, no clubbing, MUSCULOSKELETAL: no muscle wasting NEURO: Awake; no lateralizing signs. SKIN: No Rash PSYCH; Flat affect Assessment & Plan Assessment/Plan (1) S/P lumbar spinal fusion: PLAN: Plan Patient is a 52-year-old female who underwent lumbar fusion procedure on 09/04/[address] Ed Lipscomb. The hospitalist service was consulted to assist with management of patient medical comorbidities 1. Degenerative lumbar scoliosis with foraminal stenosis S/p L2-S1 posterior spinal fusion with decompression with Dr. Lipscomb on 09/03. Patient tolerated procedure well. Patient postoperative orders regarding PT/OT as well as pain management deferred to primary service ? 09/05/2023; postoperative day 2 ? 09/08/2023; Patient seen still complains of back pain as well as abdominal pain. Workups have so far been unremarkable. Plan is for patient to be discharged to to the inpatient rehab unit when medically stable 2. Mild postoperative hypoxia ? Requiring 4 to 5 L nasal cannula shortly after procedure, presumed secondary to procedural sedation. Lung sounds clear on exam, no increased work of breathing noted. Wean supplemental oxygen as able. ? 09/04/2023 resolved 3. Class II obesity with BMI of 36.3 ? Complicating care weight loss advised 4. Hypertension - Blood pressure controlled, home medications continued with dose adjustment as needed 5. Dyslipidemia -Patient is on statin therapy, continued at home dose 6. Peripheral neuropathy ? On gabapentin 7.M?ni?re's disease Patient is on amiloride which was held following surgery given relative hypotension plan is to resume as needed 8. Hypothyroidism - Patient is on levothyroxine home dose continued 9. GERD ? On PPI 10. Hypokalemia ? Corrected per protocol 11. Anemia - Secondary to chronic disorder monitoring H&H and transfuse if patient becomes symptomatic or hemoglobin falls below 7 12. Urinary retention ? Patient had Morillo catheter placed 13. Postoperative constipation ? Treated with good results 14. DVT prophylaxis ? Deferred to primary service 15. Mood disorder ? Patient is on Lamictal. Ativan added as needed for anxiety Time spent in the patient's overall evaluation,decision-making process, review of diagnostic data, adjustment of management, discussion with other providers, nursing nursing and ancillary staff involved in patient's care documentation, 40 Minutes Charges/Coding Visit Charges Inpatient E&M: 01590 Subs Hosp L2
[2023-09-09 09:22] VITALS: BP 137/89; PULSE 91; RESP 18; TEMP 36.4; O2SAT 96
[2023-09-09] MEDS: Lidocaine 5% Patch 2 PATCH TOPICAL (09:35)
[2023-09-09] MEDS: Aspirin 325 MG Tablet PO (09:35)
[2023-09-09] MEDS: Bisacodyl 5 MG Tablet PO (09:37)
[2023-09-09] MEDS: lamoTRIgine 100 MG Tablet PO (09:38)
[2023-09-09] MEDS: Venlafaxine XR 75 MG Capsule PO (09:38)
[2023-09-09] MEDS: Pantoprazole Sodium 40 MG Tablet PO (09:39)
[2023-09-09] MEDS: Methocarbamol 500 MG Tablet 1000 MG PO ×4 (09:39→20:13)
[2023-09-09] MEDS: Meloxicam 15 MG Tablet PO (09:39)
[2023-09-09] MEDS: Senna/Docusate Sodium 1 Tablet 2 TABLET PO (09:40)
[2023-09-09] MEDS: Topiramate 100 MG Tablet PO ×2 (09:40→20:14)
[2023-09-09] MEDS: Ensure Surgery 237 ML LIQUID PO ×3 (09:48→17:44)
[2023-09-09] MEDS: Gabapentin 600 MG Tablet PO ×2 (09:48→22:26)
--- NOTE | 2023-09-09 11:55 | PN.SURG_ITS ---
Subjective Subjective Patient reports she tolerated regular diet with no nausea or vomiting. She says she did have a small amount of right lower quadrant pain after eating but that went away. She is passing gas Objective Data Objective Data Vital Signs: Vital Signs Temp Pulse Resp BP Pulse Ox O2 Del Method O2 Flow Rate 97.5 F L 91 18 137/89 H 96 Room Air 2 09/09/23 09:22 09/09/23 09:22 09/09/23 09:22 09/09/23 09:22 09/09/23 09:22 09/09/23 09:22 09/03/23 22:16 Oxygen Flow Rate (L/min) 2 Oxygen Delivery Method Room Air Weight: 218 lb 4.122 oz Body Mass Index (BMI) 36.3 Intake & Output: Intake and Output for Last 24 Hours 09/07/23 09/08/23 09/09/23 23:59 23:59 23:59 Intake Total 0 / 0 Balance 0 / 0 Lab / Micro Data 09/07/23 08:04 09/07/23 08:04 Micro: Microbiology 08/20/23 14:30 Swab (Method) Nasal Screen MRSA/MSSA - Final Physical Exam Const oriented x3 and no apparent distress Resp normal respiratory effort Cardio regular rate and regular rhythm GI soft to palpation Palpation: tender Assessment & Plan Assessment/Plan (1) Ileus: PLAN: Patient is still having flatus. She denies any nausea or vomiting with regular diet yesterday.Continue regular diet as tolerated. Vipul Noel MD Pager: [facility] [address] [place] [address], [address] [place] [address] Office:
--- NOTE | 2023-09-09 12:16 | PCM.PN.ORT ---
Subjective Subjective Postop day 6 with with L2-S1 fusion. Pain much better today. Says she slept well last night with the changes in her medications. Lidocaine patch is helping. Also using spinal cord stimulator for pain relief. Able to move the right hip better today. Objective Data Objective Data Vital Signs: Vital Signs Temp Pulse Resp BP Pulse Ox O2 Del Method O2 Flow Rate 97.5 F L 91 18 137/89 H 96 Room Air 2 09/09/23 09:22 09/09/23 09:22 09/09/23 09:22 09/09/23 09:22 09/09/23 09:22 09/09/23 09:22 09/03/23 22:16 Oxygen Flow Rate (L/min) 2 Oxygen Delivery Method Room Air Weight: 218 lb 4.122 oz Body Mass Index (BMI) 36.3 Intake & Output: Intake and Output for Last 24 Hours 09/07/23 09/08/23 09/09/23 23:59 23:59 23:59 Intake Total 0 / 0 Balance 0 / 0 Lab / Micro Data 09/07/23 08:04 09/07/23 08:04 Micro: Microbiology 08/20/23 14:30 Swab (Method) Nasal Screen MRSA/MSSA - Final Physical Exam Narrative Dressing CDI. Neurologically stable except for right hip flexion painful. Assessment & Plan Assessment/Plan (1) S/P lumbar spinal fusion: PLAN: Plan Pain better controlled. Again encouraged out of bed ambulation in the hallway at least 3 times a day. Appreciate medicine and general surgery assessment. Discharge to rehab awaited.
[2023-09-09 13:54] VITALS: BP 134/85; PULSE 89; RESP 16; TEMP 37; O2SAT 99
[2023-09-09] MEDS: 0.9% NaCl Peripheral Flush Adult/Peds IV (14:07)
[2023-09-09] MEDS: LORazepam 2 MG/ML Syringe 1 MG IV ×2 (14:07→22:27)
[2023-09-09 20:15] VITALS: BP 147/89; PULSE 81; RESP 17; TEMP 36.4; O2SAT 100
[2023-09-09] MEDS: Atorvastatin Calcium 20 MG Tablet PO (20:16)
[2023-09-10 02:15] VITALS: BP 162/83; PULSE 78; RESP 16; TEMP 36.3; O2SAT 100
[2023-09-10] MEDS: oxyCODONE 5 MG Tablet PO ×4 (04:06→20:03)
[2023-09-10] MEDS: LORazepam 2 MG/ML Syringe 1 MG IV ×2 (05:40→19:59)
[2023-09-10] MEDS: Levothyroxine 88 MCG Tablet PO (05:40)
[2023-09-10] MEDS: Acetaminophen 500 MG Tablet 1000 MG PO ×3 (05:40→22:18)
[2023-09-10] MEDS: 0.9% NaCl Peripheral Flush Adult/Peds IV ×2 (05:42→20:01)
[2023-09-10 08:00] VITALS: BP 151/83; PULSE 81; RESP 16; TEMP 36.7; O2SAT 98
[2023-09-10] MEDS: Aspirin 325 MG Tablet PO (08:04)
[2023-09-10] MEDS: Pantoprazole Sodium 40 MG Tablet PO (08:04)
--- NOTE | 2023-09-10 08:38 | PN.HOSP_ITS ---
Subjective Subjective Stabbing-like pain in her right hip and back. States that when she moves it starts to spasm up on her becomes very severe. Denies any bowel issues though the spasms do proceeded into her abdomen. Objective Data Objective Data Vital Signs: Vital Signs Temp Pulse Resp BP Pulse Ox O2 Del Method O2 Flow Rate 36.3 C L 78 16 162/83 H 100 Room Air 2 09/10/23 02:15 09/10/23 02:15 09/10/23 02:15 09/10/23 02:15 09/10/23 02:15 09/10/23 02:15 09/03/23 22:16 Oxygen Flow Rate (L/min) 2 Oxygen Delivery Method Room Air Weight: 99 kg Body Mass Index (BMI) 36.3 Intake & Output: Intake and Output for Last 24 Hours 09/08/23 09/09/23 09/10/23 23:59 23:59 23:59 Intake Total 500 / 500 Balance 500 / 500 Lab / Micro Data 09/07/23 08:04 09/07/23 08:04 Micro: Microbiology 08/20/23 14:30 Swab (Method) Nasal Screen MRSA/MSSA - Final Physical Exam Const Constitutional Narrative: Sleeping when he first arrived awake. Is nontoxic. Uncomfortable. Lying on her left side. Patient has bilateral surgical incisions on her lower lumbar. Ecchymosis noted bilaterally but also extending up on her right hip. Moves all extremities spontaneously. Sensations grossly intact. Assessment & Plan Assessment/Plan (1) S/P lumbar spinal fusion: PLAN: Plan Degenerative lumbar scoliosis with foraminal stenosis * S/p L2-S1 posterior spinal fusion with decompression with Dr. Lipscomb on 09/03. Patient tolerated procedure well. * Patient still with significant pain. Continue with acetaminophen 1000 mg 3 times daily, * Will add as needed morphine IV in addition to the oxycodone. Increase the gabapentin to 600 twice daily to 3 times daily. Mild postoperative hypoxia * Requiring 4 to 5 L nasal cannula shortly after procedure, presumed secondary to procedural sedation. Lung sounds clear on exam, no increased work of breathing noted. Wean supplemental oxygen as able. * 09/04/2023 resolved Ileus * resolved. diet advanced to regular. Chronic conditions: * Class II obesity with BMI of 36.3 * Hypertension- Blood pressure controlled, home medications continued with dose adjustment as needed * Dyslipidemia-Patient is on statin therapy, continued at home dose * Peripheral neuropathy? On gabapentin * m?ni?re's diseasePatient is on amiloride which was held following surgery given relative hypotension plan is to resume as needed * Hypothyroidism- Patient is on levothyroxine home dose continued * GERD? On PPI * Mood disorder? Patient is on Lamictal. Ativan added as needed for anxiety DVT prophylaxis: per spine ? Deferred to primary service Greater than 35 minutes of which greater than 50% time was counseling patient at bedside about her pain, listening to her complaints but also saying we can try to better increase her pain control so that she can engage in therapy and be able to move better. Charges/Coding Visit Charges Inpatient E&M: 88260 Subs Hosp L2
[2023-09-10] MEDS: Ensure Surgery 237 ML LIQUID PO ×2 (09:42→17:07)
[2023-09-10] MEDS: Gabapentin 600 MG Tablet PO ×3 (09:43→22:18)
[2023-09-10] MEDS: Meloxicam 15 MG Tablet PO (09:43)
[2023-09-10] MEDS: Venlafaxine XR 75 MG Capsule PO (09:43)
[2023-09-10] MEDS: Topiramate 100 MG Tablet PO ×2 (09:44→20:05)
[2023-09-10] MEDS: lamoTRIgine 100 MG Tablet PO (09:44)
[2023-09-10] MEDS: Methocarbamol 500 MG Tablet 1000 MG PO ×4 (09:44→22:18)
[2023-09-10] MEDS: Senna/Docusate Sodium 1 Tablet 2 TABLET PO ×2 (09:45→20:02)
[2023-09-10] MEDS: Lidocaine 5% Patch 2 PATCH TOPICAL (09:46)
--- NOTE | 2023-09-10 11:46 | PN.SURG_ITS ---
Subjective Subjective Patient seen and examined during AM rounds. She reports that she is doing much better from the abdominal pain that she experienced last week. She shares her main concern now is muscle spasms every time she attempts to ambulate. She does confess that she has felt more comfortable staying on a soft diet, but denies any difficulty with tolerating a diet and continues to have both regular flatus and bowel movements (including 1 earlier today). Objective Data Objective Data Vital Signs: Vital Signs Temp Pulse Resp BP Pulse Ox O2 Del Method O2 Flow Rate 98.1 F 81 16 151/83 H 98 Room Air 2 09/10/23 08:00 09/10/23 08:00 09/10/23 08:00 09/10/23 08:00 09/10/23 08:00 09/10/23 08:00 09/03/23 22:16 Oxygen Flow Rate (L/min) 2 Oxygen Delivery Method Room Air Weight: 218 lb 4.122 oz Body Mass Index (BMI) 36.3 Intake & Output: Intake and Output for Last 24 Hours 09/08/23 09/09/23 09/10/23 23:59 23:59 23:59 Intake Total 500 / 500 Balance 500 / 500 Lab / Micro Data 09/07/23 08:04 09/07/23 08:04 Micro: Microbiology 08/20/23 14:30 Swab (Method) Nasal Screen MRSA/MSSA - Final Physical Exam Const oriented x3 and no apparent distress GI GI Narrative: Mildly distended, operative dressing remains intact in right lower abdomen. There is tenderness medial to this incision, otherwise patient denies significant tenderness with palpation. Assessment & Plan Assessment/Plan (1) Ileus: PLAN: Patient appears to have resolved her ileus from last week and is tolerating a diet with regular bowel function. She reports her main complaint is muscle spasms and pain from her back surgery. I have encouraged her to continue to keep an open mind to multimodal analgesic therapy and minimize narcotics wherever possible so as to prevent recurrence of her prior situation. At present, I find no further cause for surgical attention and we will plan to sign off. Please do not hesitate to call with any future questions or concerns. Thank you for allowing us to participate in Ms. Casanova's care. Milad Cesar MD General Surgery Endocrine Surgery Pager: [facility] [address] [place] [address], [facility], [address] [place] [address] Office: [phone] Charges/Coding Visit Charges Inpatient E&M: 54000 Subs Hosp L2
[2023-09-10] MEDS: Morphine 2 MG/ML Syringe IV (11:52)
[2023-09-10 14:15] VITALS: BP 126/84; PULSE 92; RESP 16; TEMP 36.4; O2SAT 97
--- NOTE | 2023-09-10 15:00 | CASEMGMT ---
Social Work Spoke with Nelsy in admissions for inpatient RU at [facility]. Patient can be accepted to the RU pending insurance authorizaiton. Nelsy will start precert today. Plan: Inpatient RU, pending insurance authorization. -AMANDA Christianson
--- NOTE | 2023-09-10 16:15 | CASEMGMT ---
TC to [facility], left message that pt will plan to dc to Inpt Rehab instead of home.
[2023-09-10 19:58] VITALS: BP 156/91; PULSE 101; RESP 20; TEMP 36.8; O2SAT 100
[2023-09-10] MEDS: Atorvastatin Calcium 20 MG Tablet PO (20:04)
[2023-09-11 00:02] VITALS: BP 151/94; PULSE 82; RESP 18; TEMP 36.8; O2SAT 97
[2023-09-11] MEDS: oxyCODONE 5 MG Tablet PO ×4 (00:10→16:42)
[2023-09-11 03:29] VITALS: BP 142/94; PULSE 76; RESP 18; TEMP 36.4; O2SAT 100
[2023-09-11] MEDS: LORazepam 2 MG/ML Syringe 1 MG IV (04:11)
[2023-09-11] MEDS: 0.9% NaCl Peripheral Flush Adult/Peds IV ×2 (04:13→22:49)
[2023-09-11] MEDS: Gabapentin 600 MG Tablet PO ×3 (05:33→22:47)
[2023-09-11] MEDS: Acetaminophen 500 MG Tablet 1000 MG PO ×3 (05:34→22:48)
[2023-09-11] MEDS: Levothyroxine 88 MCG Tablet PO (05:35)
--- NOTE | 2023-09-11 07:51 | PN.HOSP_ITS ---
Subjective Subjective Still with significant pain in right hip. Had acute worsening, but states that it has been persistant. Objective Data Objective Data Vital Signs: Vital Signs Temp Pulse Resp BP Pulse Ox O2 Del Method O2 Flow Rate 36.4 C L 76 18 142/94 H 100 Room Air 2 09/11/23 03:29 09/11/23 03:29 09/11/23 03:29 09/11/23 03:29 09/11/23 03:29 09/11/23 03:29 09/03/23 22:16 Oxygen Flow Rate (L/min) 2 Oxygen Delivery Method Room Air Weight: 99 kg Body Mass Index (BMI) 36.3 Intake & Output: Intake and Output for Last 24 Hours 09/09/23 09/10/23 09/11/23 23:59 23:59 23:59 Intake Total 1175 / 1175 Balance 1175 / 1175 Lab / Micro Data 09/07/23 08:04 09/07/23 08:04 Micro: Microbiology 08/20/23 14:30 Swab (Method) Nasal Screen MRSA/MSSA - Final Physical Exam Const alert and no apparent distress Constitutional Narrative: uncomfortable. up in chair. afebrile. Assessment & Plan Assessment/Plan (1) S/P lumbar spinal fusion: PLAN: Plan Degenerative lumbar scoliosis with foraminal stenosis * S/p L2-S1 posterior spinal fusion with decompression with Dr. Lipscomb on 09/03. Patient tolerated procedure well. * Patient still with significant pain. Continue with acetaminophen 1000 mg 3 times daily, * Will add as needed morphine IV in addition to the oxycodone. Increase the gabapentin to 600 twice daily to 3 times daily. * Still with significant pain. Will add scheduled oxycodone. * CT showed status post fusion from the L2-S1 level with prosthetic disc placement. No acute process. Mild postoperative hypoxia * Requiring 4 to 5 L nasal cannula shortly after procedure, presumed secondary to procedural sedation. Lung sounds clear on exam, no increased work of breathing noted. Wean supplemental oxygen as able. * 09/04/2023 resolved Ileus * resolved. diet advanced to regular. Chronic conditions: * Class II obesity with BMI of 36.3 * Hypertension- Blood pressure controlled, home medications continued with dose adjustment as needed * Dyslipidemia-Patient is on statin therapy, continued at home dose * Peripheral neuropathy? On gabapentin * m?ni?re's diseasePatient is on amiloride which was held following surgery given relative hypotension plan is to resume as needed * Hypothyroidism- Patient is on levothyroxine home dose continued * GERD? On PPI * Mood disorder? Patient is on Lamictal. Ativan added as needed for anxiety DVT prophylaxis: per spine ? Deferred to primary service Charges/Coding Visit Charges Inpatient E&M: 79334 Subs Hosp L2
[2023-09-11 08:22] VITALS: BP 141/75; PULSE 75; RESP 18; TEMP 36.8; O2SAT 97
[2023-09-11] MEDS: Methocarbamol 500 MG Tablet 1000 MG PO ×4 (08:36→22:50)
[2023-09-11] MEDS: Senna/Docusate Sodium 1 Tablet 2 TABLET PO ×2 (08:36→22:46)
[2023-09-11] MEDS: Meloxicam 15 MG Tablet PO (08:36)
[2023-09-11] MEDS: Pantoprazole Sodium 40 MG Tablet PO (08:36)
[2023-09-11] MEDS: Venlafaxine XR 75 MG Capsule PO (08:36)
[2023-09-11] MEDS: Ensure Surgery 237 ML LIQUID PO (08:36)
[2023-09-11] MEDS: lamoTRIgine 100 MG Tablet PO (08:36)
[2023-09-11] MEDS: Aspirin 325 MG Tablet PO (08:36)
[2023-09-11] MEDS: Topiramate 100 MG Tablet PO ×2 (08:37→22:47)
[2023-09-11] MEDS: Lidocaine 5% Patch 2 PATCH TOPICAL (08:37)
--- NOTE | 2023-09-11 09:37 | CT_ITS ---
STUDY: CT LUMBAR SPINE WITH CONTRAST REASON FOR EXAM: Female, 52 years old. Severe back pain, post operative. RADIATION DOSAGE (If Supplied By Facility): CTDIvol = ( 33.24 ) mGy, DLP = ( 1439.61 ) mGycm TECHNIQUE: The patient was scanned in a multi detector CT scanner. High resolution transaxial imaging was performed following the intravenous administration of IV 100mL Isovue-370. Images were obtained from to . Sagittal and coronal images were reconstructed. Individualized dose optimization techniques were used for this CT. COMPARISON: None FINDINGS: Normal lumbar lordosis. There is no substantial scoliosis. There is evidence of a postoperative soft tissue changes in the posterior aspect overlying the surgical sites. The patient is status post interpedicular screw fixation from the L2 through the S1 level with mark fixation and prosthetic disc placement. A spinal cord stim Limited device is seen. L1-2: Disc space narrowing and spondylosis. L2-3: Disc degeneration. Spondylosis. Prosthetic disc is seen. L3-4: Prosthetic disc is seen. Intraventricular screw fixation. L4-5: Prosthetic disc. Anterior fusion is seen. L5-S1: Postoperative changes. Postoperative soft tissue changes overlying the posterior surgical site. CT/Spine Lumbar WITH Contrast IMPRESSION: Status post fusion from the L2-S1 level with prosthetic disc placement. Postoperative soft tissue changes. Electronically Signed: Epi Villalta MD at 11:00 EST ,
--- NOTE | 2023-09-11 09:38 | CASEMGMT ---
Addendum entered by Janie Maurice 09/11/23 11:21: Social Work SW spoke w/Gala with [facility], she did the peer to peer, and insurance upheld the denial stating that pt is not medically complicated enough to require inpt rehab. They suggested pt look into going to a subacute facility for rehab. Pt's physician called, SW updated him. SW met w/pt, explained that she was denied rehab. SW gave pt the list of care home facilities as described in original note. She would like to try for TCU, SW explained will make referral, asked her to look at the list for additional options if TCU does not have availability. SW spoke w/Nelsy in TCU, she will review, wants to see how pt does in therapy today. SW will continue to follow. WILLOW Viveros Original Note: Social Work SW spoke hunter/Nelsy in admissions for Rehab, insurance requesting a peer to peer. SW texted physician, did not respond. SW called [facility], spoke w/ALEXANDRA Cedeño. She states that Dr. Lipscomb in surgery all day, she will call to start the peer to peer. Nelsy updated. SW will speak w/pt shortly to update her, and give her a SNF list from [facility], facilities in network w/her insurance, preferred geographic area, and complete w/wuality and resource use data in event the pt is not approved for rehab. WILLOW Viveros
[2023-09-11] MEDS: 0.9% Normal Saline (1000mL) 1,000 ML 150 ML IV (10:48)
[2023-09-11] MEDS: oxyCODONE HCl Cr 10 MG Tablet 20 MG PO ×2 (11:12→22:47)
--- NOTE | 2023-09-11 11:32 | PCM.PN.ORT ---
Subjective Subjective Postop day 8 status post L2-S1 fusion. Did CT lumbar spine this morning. Continues to have right groin pain especially when ambulating and weightbearing consistent with right hip arthritis. Has been using lidocaine patches. Has been using spinal cord stimulator. Objective Data Objective Data Vital Signs: Vital Signs Temp Pulse Resp BP Pulse Ox O2 Del Method O2 Flow Rate 98.3 F 75 18 141/75 H 97 Room Air 2 09/11/23 08:22 09/11/23 08:22 09/11/23 08:22 09/11/23 08:22 09/11/23 08:22 09/11/23 08:25 09/03/23 22:16 Oxygen Flow Rate (L/min) 2 Oxygen Delivery Method Room Air Weight: 218 lb 4.122 oz Body Mass Index (BMI) 36.3 Intake & Output: Intake and Output for Last 24 Hours 09/09/23 09/10/23 09/11/23 23:59 23:59 23:59 Intake Total 1175 / 1175 Balance 1175 / 1175 Lab / Micro Data 09/07/23 08:04 09/07/23 08:04 Micro: Microbiology 08/20/23 14:30 Swab (Method) Nasal Screen MRSA/MSSA - Final Radiography Diagnostic Testing: Radiology Impression Lumbar Spine CT 09/11/23 09:37 IMPRESSION: Status post fusion from the L2-S1 level with prosthetic disc placement. Postoperative soft tissue changes. Electronically Signed: Epi Villalta MD at 11:00 EST Reading Location ID and State: [address] [place] [address] , Service support , Physical Exam Narrative Examination of the back and belly show incisions CDI. Abdomen is soft. Neurologic examination of lower extremity shows 5 x 5 power in all muscles except for right hip flexion which is restricted with pain. Assessment & Plan Assessment/Plan (1) S/P lumbar spinal fusion: PLAN: Plan Continues to have right groin pain which is consistent with right hip arthritis. CT lumbar spine done this morning shows hardware and bone graft in good position without any changes from last week CT abdomen. Again explained to her the reason of her pain being a right hip arthritis which is making difficult for her to weight-bear. All different medical modalities of pain control are active. Again encouraged out of bed mobility at least 3 times a day, walking the hallway. Again spent a long time motivating the patient to walk the hallway multiple times today. Ileus resolved. Rehab placement awaited.
[2023-09-11] MEDS: Ketorolac 15 MG/ML Vial IV ×3 (11:52→22:49)
[2023-09-11 15:00] VITALS: BP 130/79; PULSE 84; RESP 18; TEMP 36.5; O2SAT 97
--- NOTE | 2023-09-11 16:17 | CASEMGMT ---
Social Work SW let TCU know earlier that therapy notes are in, Nelsy to review. SW spoke w/pt, explained we are still waiting to see if TCU can take pt, asked what a backup option would be if TCU cannot take pt, pt states [facility]. SW will follow up tomorrow w/TCU, and w/[facility] if TCU cannot take pt. Plan: TCU pending acceptance and precert. WILLOW Viveros
[2023-09-11] MEDS: Atorvastatin Calcium 20 MG Tablet PO (22:47)
[2023-09-11 23:07] VITALS: BP 150/100; PULSE 87; RESP 16; TEMP 36.4; O2SAT 96
[2023-09-12] MEDS: oxyCODONE 5 MG Tablet PO ×2 (01:48→06:52)
[2023-09-12 01:54] VITALS: BP 137/95; PULSE 88; RESP 16; TEMP 36.4; O2SAT 96
[2023-09-12] MEDS: Gabapentin 600 MG Tablet PO ×2 (05:02→14:15)
[2023-09-12] MEDS: Ketorolac 15 MG/ML Vial IV ×3 (05:02→17:25)
[2023-09-12] MEDS: Levothyroxine 88 MCG Tablet PO (05:02)
[2023-09-12] MEDS: Methocarbamol 500 MG Tablet 1000 MG PO ×3 (05:02→17:24)
[2023-09-12] MEDS: Acetaminophen 500 MG Tablet 1000 MG PO ×2 (05:02→14:15)
[2023-09-12] MEDS: 0.9% NaCl Peripheral Flush Adult/Peds IV ×3 (05:03→17:24)
[2023-09-12] MEDS: Bisacodyl 5 MG Tablet PO (05:04)
--- NOTE | 2023-09-12 07:23 | PN.HOSP_ITS ---
Reason for Visit Reason for Visit: Diagnoses Ileus, unspecified (09/04/23) Right upper quadrant pain (09/04/23) Other specified symptoms and signs involving the digestive system and abdomen (09/04/23) Encounter for other preprocedural examination (09/04/23) Arthrodesis status (09/04/23) Objective Data Objective Data Vital Signs: Vital Signs Temp Pulse Resp BP Pulse Ox O2 Del Method O2 Flow Rate 36.4 C L 88 16 137/95 H 96 Room Air 2 09/12/23 01:54 09/12/23 01:54 09/12/23 01:54 09/12/23 01:54 09/12/23 01:54 09/12/23 01:54 09/03/23 22:16 Oxygen Flow Rate (L/min) 2 Oxygen Delivery Method Room Air Weight: 99 kg Body Mass Index (BMI) 36.3 Intake & Output: Intake and Output for Last 24 Hours 09/10/23 09/11/23 09/12/23 23:59 23:59 23:59 Intake Total 1175 / 1175 1000 / 1000 Balance 1175 / 1175 1000 / 1000 Lab / Micro Data 09/07/23 08:04 09/07/23 08:04 Micro: Microbiology 08/20/23 14:30 Swab (Method) Nasal Screen MRSA/MSSA - Final Radiography Diagnostic Testing: Radiology Impression Lumbar Spine CT 09/11/23 09:37 IMPRESSION: Status post fusion from the L2-S1 level with prosthetic disc placement. Postoperative soft tissue changes. Electronically Signed: Epi Villalta MD at 11:00 EST , Assessment & Plan Assessment/Plan (1) S/P lumbar spinal fusion: PLAN: Plan Degenerative lumbar scoliosis with foraminal stenosis * S/p L2-S1 posterior spinal fusion with decompression with Dr. Lipscomb on 09/03. Patient tolerated procedure well. * Patient still with significant pain. Continue with acetaminophen 1000 mg 3 times daily, * Will add as needed morphine IV in addition to the oxycodone. Increase the gabapentin to 600 twice daily to 3 times daily. * Still with significant pain. Will add scheduled oxycodone. * CT showed status post fusion from the L2-S1 level with prosthetic disc placement. No acute process. * Spine surgery feels pain in right hip due to right hip arthritis. Mild postoperative hypoxia * Requiring 4 to 5 L nasal cannula shortly after procedure, presumed secondary to procedural sedation. Lung sounds clear on exam, no increased work of breathing noted. Wean supplemental oxygen as able. * 09/04/2023 resolved Ileus * resolved. diet advanced to regular. Chronic conditions: * Class II obesity with BMI of 36.3 * Hypertension- Blood pressure controlled, home medications continued with dose adjustment as needed * Dyslipidemia-Patient is on statin therapy, continued at home dose * Peripheral neuropathy? On gabapentin * m?ni?re's diseasePatient is on amiloride which was held following surgery given relative hypotension plan is to resume as needed * Hypothyroidism- Patient is on levothyroxine home dose continued * GERD? On PPI * Mood disorder? Patient is on Lamictal. Ativan added as needed for anxiety DVT prophylaxis: per spine ? Deferred to primary service
--- NOTE | 2023-09-12 07:23 | PCM.PN.HOSP ---
Reason for Visit Reason for Visit: Diagnoses Ileus, unspecified (09/04/23) Right upper quadrant pain (09/04/23) Other specified symptoms and signs involving the digestive system and abdomen (09/04/23) Encounter for other preprocedural examination (09/04/23) Arthrodesis status (09/04/23) Subjective Subjective Still with pain in her hip but overall doing better. Patient has not been able to sleep better. She is feeling better overall. Patient is contemplating about possibly going home versus detention facility. Concerning for her is that she is by herself. Objective Data Objective Data Vital Signs: Vital Signs Temp Pulse Resp BP Pulse Ox O2 Del Method O2 Flow Rate 36.4 C L 88 16 137/95 H 96 Room Air 2 09/12/23 01:54 09/12/23 01:54 09/12/23 01:54 09/12/23 01:54 09/12/23 01:54 09/12/23 01:54 09/03/23 22:16 Oxygen Flow Rate (L/min) 2 Oxygen Delivery Method Room Air Weight: 99 kg Body Mass Index (BMI) 36.3 Intake & Output: Intake and Output for Last 24 Hours 09/10/23 09/11/23 09/12/23 23:59 23:59 23:59 Intake Total 1175 / 1175 1000 / 1000 Balance 1175 / 1175 1000 / 1000 Lab / Micro Data 09/07/23 08:04 09/07/23 08:04 Micro: Microbiology 08/20/23 14:30 Swab (Method) Nasal Screen MRSA/MSSA - Final Radiography Diagnostic Testing: Radiology Impression Lumbar Spine CT 09/11/23 09:37 IMPRESSION: Status post fusion from the L2-S1 level with prosthetic disc placement. Postoperative soft tissue changes. Electronically Signed: Epi Villalta MD at 11:00 EST , Physical Exam Const alert and no apparent distress Constitutional Narrative: Lying in bed on her left side. Nontoxic and smiling. Does not appear to be in any acute distress, however she did not move while I was in the room. Assessment & Plan Assessment/Plan (1) S/P lumbar spinal fusion: PLAN: Plan Degenerative lumbar scoliosis with foraminal stenosis S/p L2-S1 posterior spinal fusion with decompression with Dr. Lipscomb on 09/03. Patient tolerated procedure well. Patient still with significant pain. Continue with acetaminophen 1000 mg 3 times daily, Will add as needed morphine IV in addition to the oxycodone. Increase the gabapentin to 600 twice daily to 3 times daily. Still with significant pain. Will add scheduled oxycodone. CT showed status post fusion from the L2-S1 level with prosthetic disc placement. No acute process. Spine surgery feels pain in right hip due to right hip arthritis. Pain overall improved. Mild postoperative hypoxia Requiring 4 to 5 L nasal cannula shortly after procedure, presumed secondary to procedural sedation. Lung sounds clear on exam, no increased work of breathing noted. Wean supplemental oxygen as able. 09/04/2023 resolved Ileus resolved. diet advanced to regular. Chronic conditions: Class II obesity with BMI of 36.3 Hypertension- Blood pressure controlled, home medications continued with dose adjustment as needed Dyslipidemia-Patient is on statin therapy, continued at home dose Peripheral neuropathy? On gabapentin m?ni?re's diseasePatient is on amiloride which was held following surgery given relative hypotension plan is to resume as needed Hypothyroidism- Patient is on levothyroxine home dose continued GERD? On PPI Mood disorder? Patient is on Lamictal. Ativan added as needed for anxiety DVT prophylaxis: per spine ? Deferred to primary service Disposition: To be determined. Patient Connerly about going home or detention facility. Patient would benefit from short course of narcotic pain medication for period time until so the pain can subside. Charges/Coding Visit Charges Inpatient E&M: 06447 Subs Hosp L1
[2023-09-12 07:46] VITALS: BP 123/69; PULSE 73; RESP 18; TEMP 36.4; O2SAT 100
[2023-09-12] MEDS: Senna/Docusate Sodium 1 Tablet 2 TABLET PO (07:57)
[2023-09-12] MEDS: Pantoprazole Sodium 40 MG Tablet PO (07:57)
[2023-09-12] MEDS: Venlafaxine XR 75 MG Capsule PO (07:58)
[2023-09-12] MEDS: Topiramate 100 MG Tablet PO (07:58)
[2023-09-12] MEDS: lamoTRIgine 100 MG Tablet PO (07:58)
[2023-09-12] MEDS: Lidocaine 5% Patch 2 PATCH TOPICAL (07:58)
[2023-09-12] MEDS: oxyCODONE HCl Cr 10 MG Tablet 20 MG PO (09:59)
--- NOTE | 2023-09-12 10:57 | CASEMGMT ---
Addendum entered by Fe Merida 09/12/23 16:00: Social Work Precert has been obtained for pt to discharge to TCU. Physician updated. Pt ready for dc today. DC orders to be faxed when obtained. Nelsy in TCU notified that pt will be coming today. Disposition: TCU, skilled level of care SIA Quintana Original Note: Social Work SW met with pt to discuss discharge plan. Pt confirms she continues to feel she need short term rehab and would like the TCU at [facility]. SW reached out to Nelsy in TCU. Pt has been accepted and precert started at this time. SW updated pt and she is appreciative of acceptance. Plan: TCU, pending precert SIA Quintana
[2023-09-12 13:52] VITALS: BP 137/80; PULSE 65; RESP 14; TEMP 36.4; O2SAT 98
--- NOTE | 2023-09-12 15:13 | NURSING ---
reviewed student charting
--- NOTE | 2023-09-12 15:50 | PCM.TXEXTCAR ---
Diet Diet Order/Speech Therapy: 09/08/23 09:54 Diet: Regular - General Food consistency:: Regular Liquid Consistency:: Regular/Thin Is pt able to select menu?: Yes Diet Comments: pt avoids gluten Routine Orders/Code Status Code Status: Full Code Wound(s) RIGHT LATERAL: Wound Type: Surgical Incision Dressing Change: ok to remove dressing BACK: Wound Type: Surgical Incision Dressing Change: Okay to remove dressing Right lower quadrant abdomen: Wound Type: Surgical Incision Therapies Weight Bearing: Full weight bearing Physical Therapy: Eval and Treat Occupational Therapy: Eval and Treat Problem/Diagnosis (1) S/P lumbar spinal fusion: Status: Acute Code(s): Z98.1 - Arthrodesis status Plan Lumbar spondylolisthesis, scoliosis,Status post L2-S1 fusion. gerd, hypothyroidism, hyperlipidemia, migraines, Chronic depression, hypertension Allergies/Procedures Done in Hospital Allergies shellfish derived Allergy (Severe, Verified 09/03/23 06:13) vomitting Penicillins Allergy (Verified 09/03/23 06:13) Hives citric acid Adverse Reaction (Severe, Verified 09/03/23 06:13) wears dowm linning of mouth blisters in mouth duloxetine [From Cymbalta] Adverse Reaction (Intermediate, Verified 09/03/23 06:13) Other weight gain gluten Adverse Reaction (Intermediate, Verified 09/03/23 06:13) stomach discomfort Procedures: - (L2-S1 lumbar spinal fusion 09/03/23) Type of Care/Length of Stay Estimated LOS: Convalescent Care Less Than 30 days Type of Care Needed: Skilled Rehab Potential: Good Prognosis: Good Additional Orders/Day of Discharge H&P will serve as current which was dated: 09/03/23 Day of Discharge: 09/12/23 Dietary and Speech Recommendations Dietitian Recommendations/Changes: Continue Regular diet as ordered; pt avoids gluten and is able to select at meals. Ensure surgery as ordered post-op. Additional ONS as needed if PO fails at meals. Discharge Plan Admission Admit Date/Time: 09/04/23 08:16 Primary Reason for Your Visit: Status post lumbar fusion Attending Provider: Eugene Orr Primary Care Provider: MILAD TODD Consulting Providers: Patrick Alfred; Ed Lipscomb; Jerzy Elliott; Milad Cesar; Osmar Raya Instructions Additional Instructions / Restrictions: Okay to remove dressings and place Band-Aids and change daily. Discharge Orders/Prescriptions Prescriptions: New acetaminophen 500 mg Tablet 1,000 mg PO Q8 Qty: 0 0RF aspirin 325 mg Tablet 325 mg PO BREAKFAST Qty: 0 0RF bisacodyl 5 mg Tablet,Delayed Release (Dr/Ec) 5 mg PO DAILY Qty: 0 0RF lidocaine 5 % Adhesive Patch,Medicated 2 patch topical DAILY Qty: 0 0RF Protocol: *Topical Application Instructions APPLICATION INSTRUCTIONS: Please apply over right groin covering part of lower abdomen and inner thigh methocarbamol 500 mg Tablet 1,000 mg PO 3XD Qty: 0 0RF oxycodone 5 mg Tablet 5 - 10 mg PO Q4H PRN PRN (Reason: Pain Score 4-10) 2 Days Qty: 8 0RF oxycodone [OxyContin] 10 mg Tablet,Oral Only,Ext.Rel.12 Hr 20 mg PO BID 7 Days Qty: 28 0RF Rx Instructions: Give for 14 doses and then discontinue sennosides-docusate sodium [Stool Softener-Stimulant Laxat] 8.6-50 mg Tablet 2 tab PO BID Qty: 0 0RF Continued topiramate 100 mg tablet 100 mg PO BID Patient Comments: TAKE 1 TABLET BY MOUTH TWICE A DAY gabapentin 600 mg tablet 600 mg PO BID omeprazole 40 mg capsule,delayed release(DR/EC) 40 mg PO DAILY ondansetron HCl 4 mg tablet 4 mg PO Q8H PRN (Reason: NAUSEA) rosuvastatin 10 mg tablet 10 mg PO DAILY Patient Comments: take 1 tablet by mouth once daily cetirizine [Zyrtec] 10 mg tablet 10 mg PO DAILY PRN (Reason: allergy symptoms) lamotrigine 100 mg tablet 100 mg PO DAILY Patient Comments: take 1 tablet by mouth once daily meclizine 25 mg tablet 25 mg PO TID PRN (Reason: dizziness) Qty: 20 0RF celecoxib 200 MG capsule 200 mg PO DAILY dexamethasone sodium phosphate 5 ML drops 1 drp OP PRN PRN (Reason: MENERIES) fluticasone propionate 50 mcg/actuation spray,suspension 2 spray NASAL PRN PRN (Reason: ALLERGIES) amiloride 5 mg tablet 1 tab PO DAILY Patient Comments: TAKE 1 TABLET BY MOUTH EVERY DAY venlafaxine [Effexor XR] 75 mg Capsule,Extended Release 24hr 75 mg PO DAILY levothyroxine [Levoxyl] 88 mcg tablet 88 mcg PO DAILY Patient Comments: TAKE 1 TABLET BY MOUTH ONCE DAILY potassium chloride 20 mEq tablet extended release 60 meq PO DAILY Patient Comments: TAKE 3 TABLETS BY MOUTH ONCE DAILY triamterene-hydrochlorothiazid 37.5-25 mg tablet 1 tab PO DAILY Patient Comments: take 1 tablet by mouth once daily multivitamin [Daily Multi-Vitamin] Tablet 1 tab PO DAILY Patient Comments: ASKING AT APPT ON 08/24 ABOUT STOPPING cholecalciferol (vitamin D3) [Vitamin D3] 25 mcg (1,000 unit) capsule 25 mcg PO DAILY Other Ambulatory Orders: 12 Lead EKG (Routine) Timeframe: 20230820 Location: None Selected Ordered By: Dr. Ed Lipscomb ,Urine (Routine) Timeframe: [id number] Facility: [facility] - Location: Laboratory Ordered By: Dr. Ed Lipscomb Referrals / Follow Up: MILAD TODD [Other] Ed Lipscomb MD [Med Staff - Active Staff] - See Referral Note (Follow-up in 2 weeks. Call [facility] to schedule appointment. ) Disposition Disposition (needs filled in before D/C Order can be placed): Group Home Facility
--- NOTE | 2023-09-12 16:20 | PCM.DC.SUM ---
Providers Date of Admission: 09/04/23 Date of Discharge: 09/12/23 Primary Care Physician: MILAD TODD Attending Physician: Patient underwent L2-S1 anterior posterior fusion on 09/03/2023 by myself, Dr. Caden Wells. She was admitted postoperatively. She had ileus and gallbladder distention on postop day 3 which was evaluated by Dr. Cesar, general surgery and treated conservatively. She worked with physical therapy but had ongoing persistent pain arising from the right hip osteoarthritis. Multiple imaging evaluations of the lumbar spine reveal hardware in good position. She is being discharged to rehab from the hospital. Consultations 09/03/23 16:14 Consult: Hospitalist Routine Consulting Provider: Patrick Alfred Reason for Consult: med management EMERGENT Consult: No MD Notified: Yes Date Notified: 09/03/23 Time Notified: 18:36 Method of Notification: Text 09/05/23 13:55 Consult: Urology Routine Consulting Provider: Jerzy Elliott Reason for Consult: post-op urinary retention EMERGENT Consult: No MD Notified: Yes Date Notified: 09/05/23 Time Notified: 13:58 Method of Notification: phone 09/05/23 14:02 Consult: Urology Routine Consulting Provider: Jerzy Elliott Reason for Consult: retention EMERGENT Consult: No MD Notified: Yes Date Notified: 09/05/23 Time Notified: 14:02 Method of Notification: Verbal 09/06/23 13:57 Consult: General Surgery Routine Consulting Provider: Milad Cesar Reason for Consult: distended gall bladder EMERGENT Consult: Yes MD Notified: Yes Date Notified: 09/06/23 Time Notified: 13:57 Method of Notification: Verbal Reason For Visit: ERAS, 360 Lumbar Fusion L2-S1 Diagnosis Discharge Diagnosis (1) S/P lumbar spinal fusion: Status: Acute Code(s): Z98.1 - Arthrodesis status Plan Lumbar spondylolisthesis, scoliosis,Status post L2-S1 fusion. gerd, hypothyroidism, hyperlipidemia, migraines, Chronic depression, hypertension Medications at Discharge Home Medications celecoxib 200 mg capsule 200 mg PO DAILY PAIN 12/27/16 dexamethasone sodium phosphate 0.1 % eye drops 1 drp OP PRN PRN [facility] 12/27/16 amiloride 5 mg tablet 1 tab PO DAILY [facility] 03/27/20 gabapentin 600 mg tablet 600 mg PO BID PAIN 08/17/21 omeprazole 40 mg capsule,delayed release 40 mg PO DAILY PER DR 08/17/21 ondansetron HCl 4 mg tablet 4 mg PO Q8H PRN NAUSEA 08/17/21 topiramate 100 mg tablet 100 mg PO BID MIGRAINES 08/17/21 fluticasone propionate 50 mcg/actuation nasal spray,suspension 2 spray PRN PRN ALLERGIES 10/21/21 venlafaxine 75 mg capsule,extended release 24 hr (Effexor XR) 75 mg PO DAILY PER DR 12/27/21 rosuvastatin 10 mg tablet 10 mg PO DAILY PER [facility] 01/24/23 levothyroxine 88 mcg tablet (Levoxyl) 88 mcg PO DAILY Thyroid 02/20/23 potassium chloride 20 mEq tablet,extended release 60 meq PO DAILY PER DR 02/20/23 triamterene 37.5 mg-hydrochlorothiazide 25 mg tablet 1 tab PO DAILY PER DR 02/20/23 cetirizine 10 mg tablet (Zyrtec) 10 mg PO DAILY PRN allergy symptoms 03/08/23 lamotrigine 100 mg tablet 100 mg PO DAILY PER DR 03/08/23 meclizine 25 mg tablet 25 mg PO TID PRN dizziness #20 tabs 05/14/23 cholecalciferol (vitamin D3) 25 mcg (1,000 unit) capsule (Vitamin D3) 25 mcg PO DAILY Supplement 08/20/23 multivitamin (Daily Multi-Vitamin tablet) 1 tab PO DAILY PER DR 08/20/23 acetaminophen 500 mg tablet 1,000 mg (2 x 500 mg) PO Q8 Pain #0 tabs 09/12/23 aspirin 325 mg tablet 325 mg PO BREAKFAST Heart #0 tabs 09/12/23 bisacodyl 5 mg tablet,delayed release 5 mg PO DAILY Constipation #0 tabs 09/12/23 lidocaine 5 % topical patch 2 patch topical DAILY Pain #0 ea 09/12/23 methocarbamol 500 mg tablet 1,000 mg (2 x 500 mg) PO 3XD Muscle Relaxer #0 tabs 09/12/23 oxycodone 10 mg tablet,crush resistant,extended release 12 hr (OxyContin) 20 mg (2 x 10 mg) PO BID Pain 7 days #28 tabs 09/12/23 oxycodone 5 mg tablet 5 - 10 mg (1 - 2 x 5 mg) PO Q4H PRN PRN Pain Score 4-10 2 days #8 tabs 09/12/23 sennosides 8.6 mg-docusate sodium 50 mg tablet (Stool Softener-Stimulant Laxative) 2 tab PO BID Constipation #0 tabs 09/12/23 Hospital Course Operations - (L2-S1 spinal fusion 09/03/2023) Physical Exam Narrative Incision dressings?CDI. Neurologic evaluation of lower extremity shows 5 x 5 power in all muscles except for right hip flexion which is painful. Abdomen soft. Weight / BMI Weight Weight: 218 lb 4.122 oz Body Mass Index (BMI) 36.3 ABG / Lab / Microbiology Data 09/07/23 08:04 09/07/23 08:04 Microbiology: Microbiology 08/20/23 14:30 Swab (Method) Nasal Screen MRSA/MSSA - Final Meaningful Use Info Meaningful Use Diagnoses (Choose all that apply): None applicable Discharge Plan Admission Admit Date/Time: 09/04/23 08:16 Primary Reason for Your Visit: Status post lumbar fusion Attending Provider: Eugene Orr Primary Care Provider: MILAD TODD Consulting Providers: Patrick Alfred; Ed Lipscomb; Jerzy Elliott; Milad Cesar; Osmar Raya Instructions Additional Instructions / Restrictions: Okay to remove dressings and place Band-Aids and change daily. Discharge Orders/Prescriptions Prescriptions: New acetaminophen 500 mg Tablet 1,000 mg PO Q8 Qty: 0 0RF aspirin 325 mg Tablet 325 mg PO BREAKFAST Qty: 0 0RF bisacodyl 5 mg Tablet,Delayed Release (Dr/Ec) 5 mg PO DAILY Qty: 0 0RF lidocaine 5 % Adhesive Patch,Medicated 2 patch topical DAILY Qty: 0 0RF Protocol: *Topical Application Instructions APPLICATION INSTRUCTIONS: Please apply over right groin covering part of lower abdomen and inner thigh methocarbamol 500 mg Tablet 1,000 mg PO 3XD Qty: 0 0RF oxycodone 5 mg Tablet 5 - 10 mg PO Q4H PRN PRN (Reason: Pain Score 4-10) 2 Days Qty: 8 0RF oxycodone [OxyContin] 10 mg Tablet,Oral Only,Ext.Rel.12 Hr 20 mg PO BID 7 Days Qty: 28 0RF Rx Instructions: Give for 14 doses and then discontinue sennosides-docusate sodium [Stool Softener-Stimulant Laxat] 8.6-50 mg Tablet 2 tab PO BID Qty: 0 0RF Continued topiramate 100 mg tablet 100 mg PO BID Patient Comments: TAKE 1 TABLET BY MOUTH TWICE A DAY gabapentin 600 mg tablet 600 mg PO BID omeprazole 40 mg capsule,delayed release(DR/EC) 40 mg PO DAILY ondansetron HCl 4 mg tablet 4 mg PO Q8H PRN (Reason: NAUSEA) rosuvastatin 10 mg tablet 10 mg PO DAILY Patient Comments: take 1 tablet by mouth once daily cetirizine [Zyrtec] 10 mg tablet 10 mg PO DAILY PRN (Reason: allergy symptoms) lamotrigine 100 mg tablet 100 mg PO DAILY Patient Comments: take 1 tablet by mouth once daily meclizine 25 mg tablet 25 mg PO TID PRN (Reason: dizziness) Qty: 20 0RF celecoxib 200 MG capsule 200 mg PO DAILY dexamethasone sodium phosphate 5 ML drops 1 drp OP PRN PRN (Reason: MENERIES) fluticasone propionate 50 mcg/actuation spray,suspension 2 spray NASAL PRN PRN (Reason: ALLERGIES) amiloride 5 mg tablet 1 tab PO DAILY Patient Comments: TAKE 1 TABLET BY MOUTH EVERY DAY venlafaxine [Effexor XR] 75 mg Capsule,Extended Release 24hr 75 mg PO DAILY levothyroxine [Levoxyl] 88 mcg tablet 88 mcg PO DAILY Patient Comments: TAKE 1 TABLET BY MOUTH ONCE DAILY potassium chloride 20 mEq tablet extended release 60 meq PO DAILY Patient Comments: TAKE 3 TABLETS BY MOUTH ONCE DAILY triamterene-hydrochlorothiazid 37.5-25 mg tablet 1 tab PO DAILY Patient Comments: take 1 tablet by mouth once daily multivitamin [Daily Multi-Vitamin] Tablet 1 tab PO DAILY Patient Comments: ASKING AT APPT ON 08/24 ABOUT STOPPING cholecalciferol (vitamin D3) [Vitamin D3] 25 mcg (1,000 unit) capsule 25 mcg PO DAILY Other Ambulatory Orders: 12 Lead EKG (Routine) Timeframe: [id number] Location: None Selected Ordered By: Dr. Ed Lipscomb ,Urine (Routine) Timeframe: [id number] Facility: [facility] - Location: Laboratory Ordered By: Dr. Ed Lipscomb Referrals / Follow Up: MILAD TODD [Other] Ed Lipscomb MD [Med Staff - Active Staff] - See Referral Note (Follow-up in 2 weeks. Call [facility] to schedule appointment. ) Disposition Disposition (needs filled in before D/C Order can be placed): Shelter Facility
--- NOTE | 2023-09-12 16:56 | NURSING ---
Report called to [facility], pt going to room 19.
== END 2023-09-12 17:58 | disposition skilled nursing facility (03) | DRG 454 ==
LOC: MS3 16:43 → ACINP 16:43
PROVIDERS: Internal Medicine; Surgery; Admitting Provider Orthopaedic Surgery Orthopaedic Surgery of the Spine; Referring Provider Orthopaedic Surgery Orthopaedic Surgery of the Spine
PROC: 0SG10A0 Fusion of 2 or more Lumbar Vertebral Joints with Interbody Fusion Device, Anterior Approach, Anterior Column, Open Approach (ICD-10-PCS; principal; 2023-09-03 07:00)
DX: M43.17 Spondylolisthesis, lumbosacral region (principal); K56.7 Ileus, unspecified; K76.0 Fatty (change of) liver, not elsewhere classified; I95.81 Postprocedural hypotension; F39 Unspecified mood [affective] disorder; E03.9 Hypothyroidism, unspecified; I10 Essential (primary) hypertension; M41.56 Other secondary scoliosis, lumbar region; M51.36 Other intervertebral disc degeneration, lumbar region; M16.11 Unilateral primary osteoarthritis, right hip; G43.909 Migraine, unspecified, not intractable, without status migrainosus; K21.9 Gastro-esophageal reflux disease without esophagitis; M48.061 Spinal stenosis, lumbar region without neurogenic claudication; E78.5 Hyperlipidemia, unspecified; G62.9 Polyneuropathy, unspecified; E87.6 Hypokalemia; K82.8 Other specified diseases of gallbladder; F17.290 Nicotine dependence, other tobacco product, uncomplicated; M48.07 Spinal stenosis, lumbosacral region; M54.17 Radiculopathy, lumbosacral region; K81.9 Cholecystitis, unspecified; M62.838 Other muscle spasm; E66.9 Obesity, unspecified; R09.02 Hypoxemia; H81.09 Meniere's disease, unspecified ear; Z79.899 Other long term (current) drug therapy; Z96.642 Presence of left artificial hip joint; Z68.36 Body mass index [BMI] 36.0-36.9, adult; R33.0 Drug induced retention of urine; T40.2X5A Adverse effect of other opioids, initial encounter; Y92.239 Unspecified place in hospital as the place of occurrence of the external cause; Z88.0 Allergy status to penicillin; Y83.8 Other surgical procedures as the cause of abnormal reaction of the patient, or of later complication, without mention of misadventure at the time of the procedure
CPT/HCPCS: 36415; 72100; 72110; 72132; 74018; 74019; 74177; 76000; 76705; 80048; 80053; 80076; 81025; 82962; 83735; 84443; 85025; 85610; 85730; 86703; 86706; 86708; 86803; 86850; 86900; 86901; 86920; 86922; 87081; 93005; 94668; 97116; 97162; 97166; 97530; 97535; A4648; C1713; J7030; J7050; J7120; Q9967; A4216; J2405; J3475

== ENCOUNTER 2023-09-12 18:10 | Inpatient (IN) | payer MEDICARE, MEDICAID, SELFPAY ==
[2023-09-12 18:38] VITALS: BP 158/92; PULSE 81; RESP 18; TEMP 36.6; O2SAT 97; BMI 37.5
--- OUTSIDE RECORDS SUMMARY | 2023-09-12 18:49 | XMS RPT_ITS | CCD ---
Author Name Unknown Address [address] [place] [address] Organization [facility] Care Team Providers Care Record Cutter Name Role Phone KhalifIsaacChevy Melinda Unavailable UnavailYuni Reeves Unavailable UnavailLogan Espino Unavailable Unavailable Keyana Lee Unavailable UnavailLogan Page Unavailable Unavailable Unavailable Logan Haddad MD Primary [...] Primary Care Unavailable FESTUS VEGA Attending Unavailable WABEKE, PERCY Attending Unavailable LOGAN HADDAD Primary Care Unavailable SAM, PERCY Attending Unavailable LOGAN HADDAD Primary Care Unavailable KEYANABECLAUDINE, PERCY Attending Unavailable KEYANABEKE, PERCY Referring Unavailable LOGAN HADDAD Primary Care Unavailable ADELE, MIKE Y Attending Unavailable LOGAN HADDAD Primary Care Unavailable KEYANABEKE, PERCY Attending Unavailable SAM, PERCY Referring Unavailable LOGAN HADDAD Primary Care Unavailable TRAVIS FROST Attending Unavailable LOGAN HADDAD Primary Care Unavailable SAM, PERCY Attending Unavailable BOOLOGAN PAVON Primary Care Unavailable WABEKE, PERCY Attending Unavailable BOO, LOGAN BISWAS Primary Care Unavailable WABEKE, PERCY Attending Unavailable WABEKE, PERCY Referring Unavailable BOO, LOGAN BISWAS Primary Care Unavailable WABEKE, PERCY Attending Unavailable WABEKE, PERCY Referring Unavailable BOO, LOGAN BISWAS Primary Care Unavailable ADELE, MIKE Nithin Attending Unavailable BOO, LOGAN BISWAS Primary Care Unavailable WABEKE, PERCY Attending Unavailable BOO, LOGAN BISWAS Primary Care Unavailable WABEKE, PERCY Attending Unavailable BOO, LOGAN BISWAS Primary Care Unavailable WABEKE, PERCY Attending Unavailable WABEKE, PERCY Referring Unavailable BOO, LOGAN ZULAY Primary Care Unavailable WABEKE, PERCY Attending Unavailable [...] (2 sources) DULoxetine; Translations: [Cymbalta] Drug Allergy [facility] Work Phone: Penicillins (antibiotic) (2 sources) Penicillins; Translations: [Penicillins] Drug Allergy [facility] Work Phone: (6 sources) DULoxetine; Translations: [Cymbalta] Drug Allergy [facility] Work Phone: (8 sources) Penicillins; Translations: [Penicillins] Allergy to drug (finding) 9 [facility] Other [place] [facility] (13 sources) DULoxetine; Translations: [DULOXETINE] Drug Allergy 9 Other: See Comments [facility] (13 sources) Lactose; Translations: [LACTOSE] Drug Allergy 8 GI Upset [facility] (11 sources) Penicillins Propensity to adverse reactions 9 Hives [facility] (13 sources) Shellfish; Translations: [SHELLFISH DERIVED] Drug Intolerance 8 Vomiting [facility] Medications Current Medications Medication Drug Class(es) Dates Sig (Normalized) Sig (Original) polyethylene glycol 3350 304329 mg / potassium chloride 2970 mg / sodium bicarbonate 6740 mg / sodium chloride 5860 mg / sodium sulfate 92227 mg powder for oral solution (1 source) [...] Long-term current use of diuretic; Translations: [Other detention (current) drug therapy] Episodic Other ear and [...] 165.1 cm Mike Angulo MD Work Phone: [facility] 03-27-2023 16:01-0400 Body weight 102.92 kg Mike Angulo MD Work Phone: [facility] 03-27-2023 16:01-0400 Diastolic blood pressure 73 mm[Hg] Miek Angulo MD Work Phone: [facility] 03-27-2023 16:01-0400 Heart rate 86 /min Mike Angulo MD Work Phone: [facility] 03-27-2023 16:01-0400 SaO2% (BldA) [Mass fraction] 94 % Mike Angulo MD Work Phone: [facility] 03-27-2023 16:01-0400 Systolic blood pressure 121 mm[Hg] Mike Angulo MD Work Phone: [facility] 11-10-2022 13:30-0400 Body temperature 97 [degF] Travis Frost MD Work Phone: [facility] 11-10-2022 13:30-0400 Diastolic blood pressure 85 mm[Hg] Travis Frost MD Work Phone: [facility] 11-10-2022 13:30-0400 Heart rate 75 /min Travis Frost MD Work Phone: [facility] 11-10-2022 13:30-0400 Respiratory rate 16 /min Travis Frost MD Work Phone: [facility] 11-10-2022 13:30-0400 SaO2% (BldA) [Mass fraction] 95 % Travis Frost MD Work Phone: [facility] 11-10-2022 13:30-0400 Systolic blood pressure 138 mm[Hg] Travis Frost MD Work Phone: [facility] 11-06-2022 13:16-0400 Body height 165.1 cm Travis Frost MD Work Phone: [facility] 11-06-2022 13:16-0400 Body temperature 98.01 [degF] Travis Frost MD Work Phone: [facility] 11-06-2022 13:16-0400 Body weight 108.05 kg Travis Frost MD Work Phone: [facility] 11-06-2022 13:16-0400 Diastolic blood pressure 84 mm[Hg] Travis Frost MD Work Phone: [facility] 11-06-2022 13:16-0400 Heart rate 99 /min Travis Frost MD Work Phone: [facility] 11-06-2022 13:16-0400 SaO2% (BldA) [Mass fraction] 99 % Travis Frost MD Work Phone: [facility] 11-06-2022 13:16-0400 Systolic blood pressure 122 mm[Hg] Travis Frost MD Work Phone: [facility] 05-29-2022 14:18-0400 Body height 165.1 cm Logan Haddad Work Phone: [facility] Work Phone: 05-29-2022 14:18-0400 Body mass index (BMI) [Ratio] 39.44 kg/m2 Logan Haddad Work Phone: [facility] Work Phone: 05-29-2022 14:18-0400 Body surface area Derived from formula 2.13 m2 Logan Haddad Work Phone: [facility] Work Phone: 05-29-2022 14:18-0400 Body weight 107.5 kg Logan Haddad Work Phone: [facility] Work Phone: 05-29-2022 14:18-0400 Diastolic blood pressure 79 mm[Hg] Logan Amarjit Haddad Work Phone: [facility] Work Phone: 05-29-2022 14:18-0400 Systolic blood pressure 129 mm[Hg] Logan Ocasio [place] Work Phone: [facility] Work Phone: 04-06-2022 09:10-0400 Body height 167.6 cm Mike Angulo MD Work Phone: [facility] 04-06-2022 09:10-0400 Body weight 107.96 kg Mike Angulo MD Work Phone: [facility] 04-06-2022 09:10-0400 Diastolic blood pressure 92 mm[Hg] Mike Angulo MD Work Phone: [facility] 04-06-2022 09:10-0400 Heart rate 74 /min Mike Angulo MD Work Phone: [facility] 04-06-2022 09:10-0400 Respiratory rate 16 /min Mike Angulo MD Work Phone: [facility] 04-06-2022 09:10-0400 SaO2% (BldA) [Mass fraction] 95 % Mike Angulo MD Work Phone: [facility] 04-06-2022 09:10-0400 Systolic blood pressure 138 mm[Hg] Mike Angulo MD Work Phone: [facility] 02-28-2021 10:29-0400 Body height 165.1 cm Logan Haddad Work Phone: [facility] Work Phone: 02-28-2021 10:29-0400 Body mass index (BMI) [Ratio] 35.78 kg/m2 Logan Ocasio Jalbum Work Phone: [facility] Work Phone: 02-28-2021 10:29-0400 Body surface area Derived from formula 2.04 m2 Logan Ocasio Boo Work Phone: [facility] Work Phone: 02-28-2021 10:29-0400 Body weight 97.52 kg Logan Ocasio Jalbum Work Phone: [facility] Work Phone: 02-28-2021 10:29-0400 Diastolic blood pressure 84 mm[Hg] Logan Ocasio Jalbum Work Phone: [facility] Work Phone: 02-28-2021 10:29-0400 Systolic blood pressure 124 mm[Hg] Logan Ocasio Jalbum Work Phone: [facility] Work Phone: 02-24-2020 11:11-0400 BMI (Body Mass Index) 33.95 kg/m2 Melinda Son [facility] Work Phone: 02-24-2020 11:11-0400 Body weight 92.53 kg Melinda Son [facility] Work Phone: 02-24-2020 11:11-0400 BP Diastolic 84 mm[Hg] Melinda Son [facility] Work Phone: 02-24-2020 11:11-0400 BP Systolic 128 mm[Hg] [facility]: 02-24-2020 11:11-0400 BSA (Body Surface Area) 1.99 m2 [facility] Work Phone: 02-24-2020 11:11-0400 Height 165.1 cm [facility] Work Phone: Encounters Encounter Date Encounter Type Care Provider Facility Start: 08-31-2023 End: 08-31-2023 ambulatory PERCY WABEKE Facility:[facility] Start: 08-17-2023 End: 08-17-2023 [facility] Start: 07-27-2023 End: 07-27-2023 amb[facility] Start: 07-18-2023 End: 07-18-2023 ambulatory PERCY AKBEKE Facility:[facility] Start: 07-13-2023 End: 07-13-2023 ambulatory PERCY WABEKE Facility:[facility] Start: 06-29-2023 End: 06-29-2023 ambulatory [facility] Start: 06-15-2023 End: 06-15-2023 ambulatory [facility] Start: 06-01-2023 End: 06-01-2023 ambulatory [facility] Start: 05-11-2023 End: 05-11-2023 ambulatory PERCY AKBEKE Facility:[facility] Start: 04-27-2023 End: 04-27-2023 ambulatory [facility] Start: 04-13-2023 End: 04-13-2023 ambulatory [facility] Start: 03-27-2023 End: 03-28-2023 ambulatory MIKE ANGULO Facility:[facility] Start: 03-27-2023 End: 03-28-2023 Office outpatient visit [...] Activity Detail Author Start: 11-10-2032 Colonoscopy COLONOSCOPY [facility] Start: 11-10-2032 COLORECTAL CANCER SCREENING COLORECTAL CANCER SCREENING [facility] Start: 02-07-2025 DIABETES SCREEN DIABETES SCREEN [facility] Start: 03-27-2024 BP CONTROLLED (<130/80) BP CONTROLLED (<130/80) [facility] in Start: 11-11-2023 Colonoscopy COLONOSCOPY [facility] Start: 11-11-2023 COLORECTAL CANCER SCREENING COLORECTAL CANCER SCREENING [facility] Start: 10-09-2023 Mammography MAMMOGRAM [facility] Start: 06-11-2023 Patient encounter procedure ANNUAL, Provider: Yuni Anthony, Status: Pen, Time: 3:00 PM [facility] Work Phone: Start: 04-13-2023 Influenza vaccination INFLUENZA (#1) [facility] Start: 07-12-2022 LIPID SCREEN LIPID SCREEN [facility] Start: 04-13-2022 Influenza vaccination INFLUENZA (#1) [facility] Start: 10-28-2021 COVID-19 VACCINE (4 - Booster for Moderna series) COVID-19 VACCINE (4 - Booster for Moderna series) [facility] Start: 08-25-2021 COVID-19 VACCINE (4 - Booster for Moderna series) COVID-19 VACCINE (4 - Booster for Moderna series) [facility] Start: 08-25-2021 COVID-19 VACCINE (4 - Moderna series) COVID-19 VACCINE (4 - Moderna series) [facility] Start: 2020 SHINGRIX VACCINE (1 of 2) SHINGRIX VACCINE (1 of 2) [facility] Start: 11-08-2018 PNEUMOCOCCAL (2 - PCV) PNEUMOCOCCAL (2 - PCV) [facility] Start: 10-23-2018 ANNUAL PCP TEAM CHRONIC DISEASE VISIT ANNUAL PCP TEAM CHRONIC DISEASE VISIT [facility] Start: 10-12-2015 COLOGUARD (FIT-DNA) COLOGUARD (FIT-DNA) [facility] Start: 10-12-2015 Colonoscopy COLONOSCOPY [facility] Start: 10-12-2015 COLORECTAL CANCER SCREENING COLORECTAL CANCER SCREENING [facility] Start: 10-12-[address] COLONOGRAPHY [facility] Start: 10-12-2015 FECAL OCCULT BLOOD FECAL OCCULT BLOOD [facility] Start: 10-12-2015 SIGMOIDOSCOPY SIGMOIDOSCOPY [facility] Start: 2010 Mammography MAMMOGRAM [facility] Start: 2000 HPV TESTING HPV TESTING [facility] Start: 10-12-1991 PAP TESTING PAP TESTING [facility] Start: 1989 Urine microalbumin profile DTAP,TDAP,TD (1 - Tdap) [facility] Start: 1988 ANNUAL PCP TEAM CHRONIC DISEASE VISIT ANNUAL PCP TEAM CHRONIC DISEASE VISIT [facility] Start: 1988 BP CONTROLLED (<130/80) BP CONTROLLED (<130/80) [facility] Start: 1988 HEPATITIS C SCREENING HEPATITIS C SCREENING [facility] Start: 1988 HIV SCREENING HIV SCREENING [facility] Start: 1970 HEPATITIS B (1 of 3 - 3-dose series) HEPATITIS B (1 of 3 - 3-dose series) [facility] End: 11-07-2023 COLONOSCOPY DIAGNOSTIC COLONOSCOPY DIAGNOSTIC Endoscopy Routine Encounter for screening for malignant neoplasm of colon 1 Occurrences starting 11/06/2022 until 11/07/2023 [facility] Work Phone: Immunizations Immunization Date Immunization Notes Care Provider Mariya eddy 11-08-2017 pneumococcal polysaccharide vaccine, 23 valent Monica Mortensen MD Work Phone: [facility] Payers Date Payer Category Payer Medicare [id number] 2018 Private Health Insurance [id number] 2015 Medicaid [id number] 2015 Medicaid [id number] 1970 Unknown [id number] 1970 Unknown [id number] 1970 Unknown [id number] [id number] Unknown Unknown [id number] Social History Date Type Detail Facility Start: 10-22-2017 End: 12-15-2022 Current every day smoker Current every day smoker [facility] Start: 10-22-2017 [facility] Work Phone: End: 08-13-2021 History of tobacco use Cigarette Smoker [facility] Work Phone: Start: 10-22-2017 End: 11-06-2022 Tobacco use and exposure Smokeless tobacco non-user [facility] Work Phone: Start: 02-07-2022 Alcohol intake Current drinke r of alcohol (finding) [facility] Start: 10-22-2017 End: 11-06-2022 Tobacco Comment currently 1 pack every 3 days; patient cutting back for surgery - not ready to quit [facility] Start: 1970 Sex Assigned At Female [facility] Start: 02-26-2022 End: 05-12-2022 Exposure to SARS-CoV-2 (event) Not sure [facility] Start: 11-06-2022 Tobacco smoking stat us [facility] Ex-smoker [facility] End: 08-13-2021 History of tobacco use Current smoker [facility] Start: 11-06-2022 End: 11-22-2022 Alcohol intake Ex-drinker (finding) [facility] Start: 11-06-2022 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 [facility] Start: 11-22-2022 End: 12-15-2022 Tobacco use panel [facility] Adult Depression Screening Assessment 3 [facility] Start: 09-29-2020 Gender identity Identifies as female gender (finding) [facility] Start: 09-29-2020 Sexual orientation Heterosexual (darnell putnam) [facility] NEGATED: Highlighted row - - [facility] Work Phone: Medical Equipment Procedure Code Equipment Code Equipment Origin al Text Equipment Identifier Dates Head V40 36mm +2 .5mm Offset Taper Biolox Delta Femoral Hip - [id number] Start: 11-06-2017 Screw Trident Secur-Fit Torx 6.5mm Titanium 20mm Bone Sterile Acetabular - [id number] Start: 11-06-2017 Functional Status Date Assessment Result Facility NEGATED: Highlighted row Functional performance Functional status health issues are not documented Disease [facility] Work Phone: Mental Status Date Assessment Result Facility NEGATED: Highlighted row Cognitive function [Interpretation] Cognitive status health issues are not documented Disease [facility] Work Phone: Clinical Notes 11-06-2017 to 08-31-2023 Mike Angulo MD - 03/27/2023 4:13 PM EDTBMike toro MD - 03/27/2023 4:10 PM EDTTelephone Encounter - Lisandra Michael RN - 01/25/2023 10:06 AM Go Frost MD - 11/10/2022 1:45 PM EDT Note Date & Type Note Facility 08-31-2023 Note HNO ID: [id number] Author: PERCY VARGAS LISW Service: ? 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 WILLOW Adamson [facility] 08-17-2023 Note HNO ID: [id number] Author: PERCY VARGAS LISW Service: ? 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 WILLOW Adamson [facility] 07-27-2023 Note HNO ID: [id number] Author: Percy Vargas LISW Service: ? 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 WILLOW Adamson [facility] 07-18-2023 Note HNO ID: [id number] Author: Percy Vargas LISW Service: ? 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 WILLOW Adamson [facility] 07-13-2023 Note HNO ID: [id number] Author: Percy Vargas LISW Service: ? Author Type: Button Breaker Operator Type: Progress Notes Filed: 07/13/2023 10:33 AM Note Text: Patient had to cancel appointment due to illness and is rescheduled for next week-no charge [facility] 06-29-2023 Note HNO ID: [id number] Author: Percy Vargas LISW Service: ? 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 WILLOW Adamson [facility] 06-15-2023 Note HNO ID: [id number] Author: Percy Vargas LISW Service: ? 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 WILLOW Adamson [facility] 06-01-2023 Note HNO ID: [id number] Author: Percy Varags LISW Service: ? 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 WILLOW Adamson [facility] 05-11-2023 Note HNO ID: [id number] Author: Percy Vargas LISW Service: ? 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 WILLOW Adamson [facility] 04-27-2023 Note HNO ID: [id number] Author: Percy Vargas LISW Service: ? Author Type: Button Breaker Operator Type: Progress Notes Filed: 04/27/2023 2:02 PM Note Text: GENERAL PSYCHOLOGY Session #: 53 (session count starts after [facility] visit) Visit Type:The patient consented to a virtual visit and their location was confirmed. SUBJECTIVE: I have communicated my name and active licensure. The patient's identity and physical location were verified at the time of this visit. 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 WILLOW Adamson [facility] 04-17-2023 Note HNO ID: [id number] Author: Percy Vargas LISW Service: ? 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 WILLOW Adamson [facility] 03-27-2023 Note HNO ID: [id number] Author: Mike Angulo MD Service: ? Author [...] least 6-8, 8 oz glasses of water/d [facility] 03-27-2023 Note HNO ID: [id number] Author: Mike Angulo MD Service: ? Author [...] by mouth once (more content not included)... [facility] 03-27-2023 History of Presen t illness [...] the date of the service which included [id number] patient care, completing clinical documentation, obtaining and/or reviewing separately obtained history, performing a medically appropriate examination, counseling and educating the patient/family/caregiver, and ordering medications, tests, or procedures Mike Angulo MD documented in this encounter [facility] 03-16-2023 Note HNO ID: [id number] Author: Percy Vargas LISW Service: ? 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 WILLOW Adamson [facility] 03-09-2023 Note HNO ID: [id number] Author: Percy Vargas LISW Service: ? Author Type: Button Breaker Operator Type: Progress Notes Filed: 03/09/2023 8:03 AM Note Text: Appointment cancelled-no charge [facility] 02-23-2023 Note HNO ID: [id number] Author: ZACHARY Adamson Service: ? 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 WILLOW Adamson [facility] 02-02-2023 Note HNO ID: [id number] Author: ZACHARY Adamson Service: ? 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 WILLOW Adamson [facility] 01-25-2023 Miscellaneous Notes Formattin g of [...] Eunice Gilliland Pss documented in this encounter [facility] 01-19-2023 Note HNO ID: [id number] Author: ZACHARY Adamson Service: ? Author Type: Button Breaker Operator Type: Progress Notes Filed: 01/19/2023 11:22 AM Note Text: Patient was a no show for appointment [facility] 01-05-2023 Note HNO ID: [id number] Author: ZACHARY Adamson Service: ? 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 WILLOW Adamson [facility] 12-15-2022 Note HNO ID: [id number] Author: ZACHARY Adamson Service: ? 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 WILLOW Adamson [facility] 12-01-2022 Note HNO ID: [id number] Author: ZACHARY Adamson Service: ? 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 WILLOW Adamson [facility] 11-22-2022 Miscellaneous Notes Formattin g of this note might be different from the original. [employer] message sent to patient with [employer] message. Health maintenance and surgical history updated. [...] for colonoscopy preferred by Dr. Frost in [place] on 11/10/2022. Patient stated they have been out of town and was not able to call sooner for an update. Patient asking if a follow up is needed. Please advise Thank you Alla Deng Roll Press Operator 11/10/2022 COLON MARIN documented in this encounter [facility] 11-17-2022 Note HNO ID: [id number] Author: ZACHARY Adamson Service: ? Author Type: Button Breaker Operator Type: Progress Notes Filed: 11/17/2022 4:36 PM Note Text: GENERAL PSYCHOLOGY Session #: 44 (session count starts after PSYL NEW EVAL visit) SUBJECTIVE: I have communicated my name and active licensure. The patient's identity and physical location were verified at the time of this visit. 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 WILLOW Adamson [facility] 11-10-2022 History and physical note Images [...] entered by the nurse and reviewed by pr Nursing Notes: Kelly Chaves LPN 11/06/2022 1:39 [...] TIME: 12:39 PM documented in this encounter [facility] 11-06-2022 Note HNO ID: [id number] Author: Travis Frost MD Service: ? Author [...] Mother Heart disea (more content not included)... [facility] 11-06-2022 History of Presen t illness [...] entered by the nurse and reviewed by pr Nursing Notes: Kelly Chaves LPN 11/06/2022 1:39 [...] Frost III, MD documented in this encounter [facility] 11-06-2022 Nurse Note REVIEW OF SYSTEMS: General: [...] Kelly Chaves LPN documented in this encounter [facility] 11-06-2022 Instructions Travis Frost MD - 11/06/2022 [...] If you do not have a responsible driver supervisor (family member or friend) with you to [...] exam. 2 07/2019 documented in this encounter [facility] 11-03-2022 Miscellaneous Notes Formattin g of this note might be different from the original. Called patient to schedule colonoscopy, she has a new GI Doctor. Rhina Tee MA documented in this encounter [facility] 10-13-2022 Note HNO ID: [id number] Author: ZACHARY Adamson Service: ? Author Type: Button Breaker Operator Type: Progress Notes Filed: 10/13/2022 2:57 PM Note Text: GENERAL PSYCHOLOGY Session #: 43 (session count starts after PSYL NEW EVAL visit) SUBJECTIVE: This Team Access Model visit is a virtual encounter. It required patient-provider interaction for the medical decision making as documented below. Patient gave consent for virtual visit Confirmed patient is in the [facility] and this provider is in the [facility]. 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 WILLOW Adamson [facility] 10-02-2022 Miscellaneous Notes Addended by: MIKE ANGULO on: 10/02/2022 06:15 PM Modules accepted: Level of Service documented in this encounter [facility] 09-29-2022 Note HNO ID: [id number] Author: ZACHARY Adamson Service: ? Author Type: Button Breaker Operator Type: Progress Notes Filed: 09/29/2022 2:43 PM Note Text: GENERAL PSYCHOLOGY Session #: 42 (session count starts after PSYL NEW EVAL visit) SUBJECTIVE: This Team Access Model visit is a virtual encounter. It required patient-provider interaction for the medical decision making as documented below. Patient gave consent for virtual visit Confirmed patient is in the [facility] and this provider is in the [facility]. 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 WILLOW Adamson [facility] 09-15-2022 Note HNO ID: [id number] Author: ZACHARY Adamson Service: ? Author Type: Button Breaker Operator Type: Progress Notes Filed: 09/15/2022 3:59 PM Note Text: GENERAL PSYCHOLOGY Session #: 41 (session count starts after PSYL NEW EVAL visit) SUBJECTIVE: This Team Access Model visit is a virtual encounter. It required patient-provider interaction for the medical decision making as documented below. Patient gave consent for virtual visit Confirmed patient is in the [facility] and this provider is in the [facility]. PATIENT DATA: Generalized Anxiety Disorder Scale (JET-7) [...] Therapy to self monitoring PROGRESS TO DATE: Group Home Progress: Progress Short Term Condition: Progress GOALS/OBJECTIVES/INTERVENTIONS : Patient's primary goal for treatment is to reduce her symptoms of depression Approximately 45 minutes were spent with the patient doing therapy. WILLOW Adamson [facility] 09-14-2022 Note HNO ID: [id number] Author: Mike Angulo MD Service: ? Author [...] person, place an (more content not included)... [facility] 09-14-2022 Instructions Mike Angulo MD - 09/14/2022 4:37 PM EST Increasing Lamictal 50 mg for the first week Then 100 mg every night documented in this encounter [facility] 09-14-2022 History of Presen t illness Narrative [...] Mike Angulo MD documented in this encounter [facility] 06-09-2022 Miscellaneous Notes Formattin g of this note might be different from the original. This refill request is already pended to provider in previous encounter. CHANTAL Decker RN June 09, 2022 9:01 AM documented in this encounter [facility] 06-08-2022 Miscellaneous Notes Formattin g of this note is different from the original. Provider: Dr. Angulo patient requesting refill via [employer] . Please E-Scribe Last OV: 04-06-22 with [...] patient. Melody Reed documented in this encounter [facility] 04-06-2022 History of Presen t illness Narrative [...] the date of the service which included [id number] patient care, completing clinical documentation, obtaining and/or reviewing separately obtained history, performing a medically appropriate examination, counseling and educating the patient/family/caregiver, and ordering medications, tests, or procedures Mike Angulo MD documented in this encounter [facility] 02-07-2022 Instructions Cirilo Gotti - 02/07/2022 12:14 PM EDT 1. Increase Topamax dosage for migraines. Hold until completing oral steroids. 2. Order for blood work placed 3. Establish with migraine neurologist. . documented in this encounter [facility] 02-07-2022 History of Presen t illness Narrative Staff Physician Comments: I testify that I personally interviewed and examined the patient. I confirm the below exam findings, assessment and plan were my own and resident/INTEGRATED PROGRAM TEACHER/scribe was acting as SCRIBE. Monica Mortensen MD, FACS Section Head, Otology/Neurotology/Skull Base Surgery Manager Freelance, Cochlear Implant Program Head and Neck [place] [facility] History of Present Illness Ms. BRUNO CASANOVA [...] of right tympanic membrane (R26.89) Imbalance (Z79.899) superintendent terminal current use of diuretic New drop attack, [...] per tablet By signing my name below ICirilo attest that this documentation has been prepared under the direction of and in the presence of Dr Mortensen Electronically signed: Cirilo Means February 07, 2022 12:21 PM Medical Decision Making: Problems: Moderate: 2+ stable chronic illnesses Data: Unique test(s) ordered: 1 Risk: Moderate: Drug management Medical Decision Making Level: 4 - Moderate documented in this encounter [facility] 02-10-2021 History of Presen t illness Narrative [...] her colonoscopy planned for the near future. [facility] Work Phone: 01-12-2020 History of Presen t [...] her right foot due to a fracture. [facility] Work Phone: documented as of this encounter (statuses as of 04/03/2022) [facility] History of Past illness Narrative* Problem Noted Date Resolved Date S/P total hip arthroplasty 11/06/201711/08 documented as of this encounter (statuses as of 05/14/2022) [facility] History of Past illness Narrative* Problem Noted Date Resolved Date S/P total hip arthroplasty 11/06/201711/08 documented as of this encounter (statuses as of 06/11/2022) [place] [id number] History of Past illness Narrative* Problem Noted Date Resolved Date S/P total hip arthroplasty 11/06/201711/08 documented as of this encounter (statuses as of 06/11/2022) [address]27-2018 History of Past illness Narrative* Problem Noted Date Resolved Date S/P total hip arthroplasty 11/06/201711/08 documented as of this encounter (statuses as of 10/03/2022) [address]27-2018 History of Past illness Narrative* Problem Noted Date Resolved Date S/P total hip arthroplasty 11/06/201711/08 documented as of this encounter (statuses as of 11/03/2022) [address]27-2018 History of Past illness Narrative* Problem Noted Date Resolved Date S/P total hip arthroplasty 11/06/201711/08 documented as of this encounter (statuses as of 11/06/2022) [address]27-2018 History of Past illness Narrative* Problem Noted Date Resolved Date S/P total hip arthroplasty 11/06/201711/08 documented as of this encounter (statuses as of 11/11/2022) [address]27-2018 History of Past illness Narrative* Problem Noted Date Resolved Date S/P total hip arthroplasty 11/06/201711/08 documented as of this encounter (statuses as of 11/23/2022) [address]27-2018 History of Past illness Narrative* Problem Noted Date Resolved Date S/P total hip arthroplasty 11/06/201711/08 documented as of this encounter (statuses as of 01/25/2023) [address]27-2018 History of Past illness Narrative* Problem Noted Date Diagnosed Date Resolved Date S/P total hip arthroplasty 11/06/2017 0 11/08/2017 documented as of this encounter (statuses as of 03/28/2023) [facility] Meniere's disease of right ear- Primary Meniere's disease, unspecified Vestibular migraine Perforation of right tympanic membrane Perforation of tympanic membrane, unspecified Imbalance Abnormality of gait [facility] current use of diuretic [facility] Vestibular migraine- Primary Syncope and collapse [facility] Vestibular migraine- Primary [facility] [place] [facility] Diagnosis Encounter for screening for malignant neoplasm of colon- Primary Special screening for malignant neoplasms, colon [facility] Diagnosis Encounter for screening colonoscopy- Primary Special screening for malignant neoplasms, colon Encounter for screening for malignant neoplasm of colon Special screening for malignant neoplasms, colon [facility] [place] [facility]* Diagnosis Abdominal migraine, intractable- Primary Variants of migraine, not elsewhere classified, with intractable migraine, so stated, without mention of status migrainosus documented in this encounter [facility] for referral (narrative)* Outpatient Procedure (Routine) - Closed Specialty Diagnoses / Procedures Referred By America t Referred To Contact [facility] Diagnoses Vestibular migraine Syncope and collapse Procedures EPIL EEG ROUTINE ELECTROENCEPHALOGRAM REC COMA/SLEEP ONLY Mike Angulo MD [address] [place] [address] [facility] [place] [address] [place] [address] Referral ID Status Reason Start Date Expiration Date V isits Requested Visits Authorized [id number] Closed Auto-Generate d Referral 04/06/2022 04/06/2023 1 1 [facility] for referral (narrative)* Outpatient Procedure (Routine) - Authorized Specialty Diagnoses / Procedures Referred By America watson Referred To Contact Diagnoses Encounter for screening for malignant neoplasm of colon Procedures COLONOSCOPY DIAGNOSTIC COLONOSCOPY FLX DX W/COLLJ SPEC WHEN PFRMD Travis Frost MD [address] [place] [address] [facility] [address] [place] [address] Referral ID Status Reason Start Date Expiration Date Visits Requested Visits Authorized [id number] Authorized Auto-Generat ed Referral 11/06/2022 11/07/2023 1 1 [facility] for referral (narrative)* Outpatient Procedure (Routine) - Closed Specialty Diagnoses / Procedures Referred By America t Referred To Contact Diagnoses Encounter for screening for malignant neoplasm of colon Procedures COLONOSCOPY DIAGNOSTIC COLONOSCOPY FLX DX W/COLLJ SPEC WHEN Travis Isaac MD [address] [place] [address] [facility] [address] [place] [address] Referral ID Status Reason Start Date Expiration Date V isits Requested Visits Authorized [id number] Closed Auto-Generate d Referral 11/06/2022 11/07/2023 1 1 [facility] for visit Narrative* Outpatient Procedure (Routine) - Closed Specialty Diagnoses / Procedures Referred By America watson Referred To Contact Diagnoses Encounter for screening for malignant neoplasm of colon Procedures COLONOSCOPY DIAGNOSTIC COLONOSCOPY FLX DX W/COLLJ SPEC WHEN Travis Isaac MD [address] [place] [address] [facility] [address] [place] [address] Referral ID Status Reason Start Date Expiration Date V isits Requested Visits Authorized [id number] Closed Auto-Generate d Referral 11/06/2022 11/07/2023 1 1 [facility] Family History No Family History Records Found [...] FoundDocuments on File Type Date Recorded Patient Systems Eng Expl anation Advance Directive(s) 11/06/2017 6:32 AM Documents on File Type Date Recorded Patient Systems Eng Expl anation Advance Directive(s) 11/06/2017 6:32 AM Chief Complaint yearly, no automation specialist. cbyearly, no automation specialist. cbyearly, no automation specialist. cb Reason for Referral Specialty Diagnoses / Procedures Referred By America t Referred To Contact Neurology Diagnoses Meniere's disease of right ear Vestibular migraine Procedures CONSULT TO NEUROLOGY OFFICE/OUTPATIENT [facility] MDM 60-74 MINUTES Mnoica Mortensen MD [address] [place] [address] Referral ID Status Reason Start Date Expiration Date Visits Requested Visits Authorized [id number] Authorized PCP Requested Referral 02/07/2022 02/07/2023 1 [...] DATE CREATED AUTHOR AUTHOR'S ORGANIZ ATION 03/25/2021 [facility] DATE CREATED AUTHOR AUTHOR'S ORGANIZ ATION 09/22/2021 [facility] DATE CREATED AUTHOR AUTHOR'S ORGANIZ ATION 06/06/2022 [facility] DATE CREATED AUTHOR AUTHOR'S ORGANIZ ATION 10/15/2022 [facility] DATE CREATED AUTHOR AUTHOR'S ORGANIZ ATION 11/15/2022 [facility] DATE CREATED AUTHOR AUTHOR'S ORGANIZ ATION 09/01/2023 [facility] Source Comments (unrecognize d section and content) In the event this informatio n is protected by the Federal Confidentiality of Alcohol and Drug Abuse Patient Records regulations: The Federal rules restrict any use of the information to criminally investigate or prosecute any alcohol or drug abuse patient.[facility] the event this information is protected by the Federal Confidentiality of Alcohol and Drug Abuse Patient Records regulations: The Federal rules restrict any use of the information to criminally investigate or prosecute any alcohol or drug abuse patient.[facility] the event this information is protected by the Federal Confidentiality of Alcohol and Drug Abuse Patient Records regulations: The Federal rules restrict any use of the information to criminally investigate or prosecute any alcohol or drug abuse patient.[facility] the event this information is protected by the Federal Confidentiality of Alcohol and Drug Abuse Patient Records regulations: The Federal rules restrict any use of the information to criminally investigate or prosecute any alcohol or drug abuse patient.[facility] the event this information is protected by the Federal Confidentiality of Alcohol and Drug Abuse Patient Records regulations: The Federal rules restrict any use of the information to criminally investigate or prosecute any alcohol or drug abuse patient.[facility] the event this information is protected by the Federal Confidentiality of Alcohol and Drug Abuse Patient Records regulations: The Federal rules restrict any use of the information to criminally investigate or prosecute any alcohol or drug abuse patient.[facility] the event this information is protected by the Federal Confidentiality of Alcohol and Drug Abuse Patient Records regulations: The Federal rules restrict any use of the information to criminally investigate or prosecute any alcohol or drug abuse patient.[facility] the event this information is protected by the Federal Confidentiality of Alcohol and Drug Abuse Patient Records regulations: The Federal rules restrict any use of the information to criminally investigate or prosecute any alcohol or drug abuse patient.[facility] the event this information is protected by the Federal Confidentiality of Alcohol and Drug Abuse Patient Records regulations: The Federal rules restrict any use of the information to criminally investigate or prosecute any alcohol or drug abuse patient.[facility] the event this information is protected by the Federal Confidentiality of Alcohol and Drug Abuse Patient Records regulations: The Federal rules restrict any use of the information to criminally investigate or prosecute any alcohol or drug abuse patient.[facility] Hospital[facility] the event this information is protected by the Federal Confidentiality of Alcohol and Drug Abuse Patient Records regulations: The Federal rules restrict any use of the information to criminally investigate or prosecute any alcohol or drug abuse patient.[facility] Reason for Visit (unrecogniz ed section and content) Reason Comments Consult Menieres disease of right ear, vestibular migraines Specialty Diagnoses / Procedures Referred By Contshantell t Referred To Contact Neurology Diagnoses Meniere's disease of right ear Vestibular migraine Procedures CONSULT TO NEUROLOGY OFFICE/OUTPATIENT [facility] 60-74 MINUTES Monica Mortensen MD [address] [place] [address] Referral ID Status Reason Start Date Expiration Date V isits Requested Visits Authorized [id number] Closed PCP Requested Referral 02/07/2022 02/07/2023 1 1 Reason Comments Refill Request Reason Onset Date Comments Refill Request 06/08/2022 Reason Comments Follow Up Reason Comments mv november recall Reason Comments Consult colonoscopy Reason Comments 11/10/2022 COLON MARIN Reason Onset Date Comments Refill Request 01/25/2023 Care Teams (unrecognized sec tion and content) Record Cutter Relationship Specialty Start Date End Date [place] [id number] [place] [address] PCP - General 06/04/09 Record Cutter Relationship Specialty [place] [address] [place] [address] PCP - General 06/04/09 Record Cutter Relationship Specialty [place] [address] [place] [address] PCP - General 06/04/09 Record Cutter Relationship Specialty [place] [address] [place] [address] PCP - General 06/04/09 Record Cutter Relationship Specialty [place] [address] [place] [address] PCP - General 06/04/09 Record Cutter Relationship Specialty [place] [address] [place] [address] PCP - General 06/04/09 Record Cutter Relationship Specialty [place] [address] [place] [address] PCP - General 06/04/09 Record Cutter Relationship Specialty [place] [address] [place] [address] PCP - General 06/04/09 Record Cutter Relationship Specialty [place] [address] [place] [address] PCP - General 06/04/09 FOR RECORDS PERTAINING [...] BE BASED ON THE PRIMARY CLINICAL RECORDS. [facility] [employer] [facility]. provides no warranty or guarantee of the accuracy or completeness of information in this document.
[2023-09-12] MEDS: oxyCODONE 5 MG Tablet PO (20:04)
--- NOTE | 2023-09-12 20:14 | HP.PCM_ITS ---
HPI - General General Date of Admission: 09/12/23 Date of Service: 09/13/23 Chief Complaint: Here for rehabilitation. HPI Narrative BRUNO PATTERSON, is a 52 Female who presents with followin09/03/2023 Admit to [facility]. Dr. Lipscomb/Dr. Lao performed L2-S1 lumbar fusion. 09/03/2023 PT/OT/CM. Oxygen 4-5 liters per NC for postoperative hypoxia. 09/04/2023 Hypoxia resolved. Amiloride held for hypotension. Straight cath for urinary retention. 09/05/2023 Urinary retention. Constipation treated with stool softeners. Clear liquid diet. Morillo for urinary retention. 09/06/2023 Diarrhea, abdominal cramps. Hemoglobin 9.0, transfuse if < 7.0. Potassium 3.0, corrected per protocol. 09/06/2023 Abdominal pain. Voiding trial next day. Advance diet to regular diet. 09/06/2023 Dr. Cesar suspects acute cholecystitis, NPO, IV antibiotics. 09/07/2023 Abdominal pain. RUQ ultrasound showed mildly distended gallbladder, no stones. Dr. Cesar feels patient has ileus, not cholecystitis, treat with bowel regimen, replete potassium. 09/08/2023 Back pain, abdominal pain. Discharge to rehab when medically stable. 09/08/2023 BM's, passing gas. KUB showed stable colonic ileus. Doubt gallstone cholecystitis. 09/09/2023 Ativan, Oxycodone, Dilaudid IV for pain/muscle spasms. 09/09/2023 Ileus improving. Regular diet, No nausea, No vomiting. Spinal cord stimulator helpful. 09/10/2023 Right hip, right back spasms, increase gabapentin to 600mg tid. 09/10/2023 No abdominal pain, tolerating regular diet, having regular BM's, flatus. 09/11/2023 Right hp pain. 09/12/2023 Right hip pain better. 09/12/2023 Admit to TCU with debility, here for rehabilitation, strengthening, prior to discharge home alone. [facility] Medical History (Updated 09/12/23 @ 20:[address] Ky Henderson MD) Acute maxillary sinusitis, unspecified Ambulates with cane Anemia Anxiety Arthritis Back problem Depression Dietary restriction Easy bruising Former smoker Gastric reflux Hearing problem History of edema History of pain when walking History of ulceration Hives Hypokalemia IBS (irritable bowel syndrome) Injury of head and neck Leg cramps Loss of hearing Menieres disease Migraine headache Neuropathy Osteoarthritis Pain Pneumonia Seasonal allergies Thyroid disease Ulcer Vertigo Vision problem Vitamin deficiency Wears glasses Home Medications celecoxib 200 mg capsule 200 mg PO DAILY PAIN 12/27/16 [History Last Taken 09/02/23] dexamethasone sodium phosphate 0.1 % eye drops 1 drp OP PRN PRN [facility] 12/27/16 [History Last Taken Unknown] amiloride 5 mg tablet 1 tab PO DAILY [facility] 03/27/20 [History Last Taken 09/02/23] gabapentin 600 mg tablet 600 mg PO BID PAIN 08/17/21 [History Last Taken 09/12/23 14:15] omeprazole 40 mg capsule,delayed release 40 mg PO DAILY PER DR 08/17/21 [History Last Taken 09/12/23 08:00] ondansetron HCl 4 mg tablet 4 mg PO Q8H PRN NAUSEA 08/17/21 [History Last Taken Unknown] topiramate 100 mg tablet 100 mg PO BID MIGRAINES 08/17/21 [History Last Taken 09/12/23 08:00] fluticasone propionate 50 mcg/actuation nasal spray,suspension 2 spray PRN PRN ALLERGIES 10/21/21 [History Last Taken Unknown] venlafaxine 75 mg capsule,extended release 24 hr (Effexor XR) 75 mg PO DAILY PER DR 12/27/21 [History Last Taken 09/12/23 08:00] rosuvastatin 10 mg tablet 10 mg PO DAILY PER ORDNatalia 01/24/23 [History Last Taken 09/12/23] levothyroxine 88 mcg tablet (Levoxyl) 88 mcg PO DAILY Thyroid 02/20/23 [History Last Taken 09/12/23 05:00] potassium chloride 20 mEq tablet,extended release 60 meq PO DAILY PER DR 02/20/23 [History Last Taken 09/02/23] triamterene 37.5 mg-hydrochlorothiazide 25 mg tablet 1 tab PO DAILY PER DR 02/20/23 [History Last Taken 09/02/23] cetirizine 10 mg tablet (Zyrtec) 10 mg PO DAILY PRN allergy symptoms 03/08/23 [History Last Taken 09/02/23] lamotrigine 100 mg tablet 100 mg PO DAILY PER DR 03/08/23 [History Last Taken 0 09/12/23 08:00] meclizine 25 mg tablet 25 mg PO TID PRN dizziness #20 tabs 05/14/23 [Rx Last Taken 09/04/23] cholecalciferol (vitamin D3) 25 mcg (1,000 unit) capsule (Vitamin D3) 25 mcg PO DAILY Supplement 08/20/23 [History Last Taken 09/02/23] multivitamin (Daily Multi-Vitamin tablet) 1 tab PO DAILY PER DR 08/20/23 [History Last Taken 09/02/23] acetaminophen 500 mg tablet 1,000 mg (2 x 500 mg) PO Q8 Pain #0 tabs 09/12/23 [Rx Last Taken 09/12/23 14:15] aspirin 325 mg tablet 325 mg PO BREAKFAST Heart #0 tabs 09/12/23 [Rx Last Taken 09/11/23] bisacodyl 5 mg tablet,delayed release 5 mg PO DAILY Constipation #0 tabs 09/12/23 [Rx Last Taken 09/12/23 05:05] lidocaine 5 % topical patch 2 patch topical DAILY Pain #0 ea 09/12/23 [Rx Last Taken 09/12/23 07:55] methocarbamol 500 mg tablet 1,000 mg (2 x 500 mg) PO 3XD Muscle Relaxer #0 tabs 09/12/23 [Rx Last Taken 09/12/23 12:20] oxycodone 10 mg tablet,crush resistant,extended release 12 hr (OxyContin) 20 mg (2 x 10 mg) PO BID Pain 7 days #28 tabs 09/12/23 [Rx Last Taken 09/12/23 06:55] oxycodone 5 mg tablet 5 - 10 mg (1 - 2 x 5 mg) PO Q4H PRN PRN Pain Score 4-10 2 days #8 tabs 09/12/23 [Rx Last Taken 09/12/23 06:55] sennosides 8.6 mg-docusate sodium 50 mg tablet (Stool Softener-Stimulant Laxative) 2 tab PO BID Constipation #0 tabs 09/12/23 [Rx Last Taken 09/12/23 07:55] Allergy/AdvReac Type Severity Reaction Status Date / Time shellfish derived Allergy Severe vomitting Verified 09/03/23 06:13 Penicillins Allergy Hives Verified 09/03/23 06:13 citric acid AdvReac Severe wears dowm Verified 09/03/23 06:13 linning of mouth duloxetine [From Cymbalta] AdvReac Intermediate Other Verified 09/03/23 06:13 gluten AdvReac Intermediate stomach Verified 09/03/23 06:13 discomfort Family History Other Alcohol abuse Anxiety Arthritis Autoimmune disease Bowel disease Colon cancer Depression Diabetes Heart disease High cholesterol Hypertension Mental disorder Psychiatric care Severe allergic reaction Thyroid disorder Surgical History H/O total hip arthroplasty S/P insertion of spinal cord stimulator Social History (Updated 09/12/23 @ 20:[address] Ky Henderson MD) household members: none Smoking Status: Current every day smoker tobacco type: e-cigarettes alcohol intake: former year quit: 2016 substance use type: does not use frequency: daily ROS Constitutional Constitutional: Denies chills, fever(s) or weight gain ENT HEENT: Denies headache(s), nasal congestion or nasal discharge Cardiovascular Cardiovascular: Denies chest pain or palpitations Respiratory/Chest Respiratory/Chest: Denies cough, excessive phlegm production or shortness of breath with exertion Gastrointestinal Gastrointestinal: Denies abdominal pain, nausea or vomiting Genitourinary Genitourinary: Denies dysuria Musculoskeletal Musculoskeletal: Reports back pain, muscle spasms and radiating pain into limb; Denies joint pain or joint swelling Integumentary Integumentary: Denies rash or wounds Neurologic Neurologic: Denies focal weakness, numbness or tingling Psychiatric Psychiatric: Denies anxiety, auditory hallucinations, depression, homicidal ideation or suicidal ideation Vital Signs Vital Signs Vital Signs: 09/12/23 18:38 Temperature 97.8 F Temperature Source Temporal Pulse Rate 81 Respiratory Rate 18 Blood Pressure 158/92 H Blood Pressure Mean 114 Blood Pressure Source Monitor Blood Pressure Position Semi-Fowlers Blood Pressure Location Right Arm Pulse Ox 97 Oxygen Delivery Method Room Air Weight Weight: 102.285 kg Body Mass Index (BMI) 37.5 Physical Exam Const alert General Appearance: cooperative HEENT normocephalic Eyes PERRL and EOMs intact bilaterally Neck supple, no JVD and no carotid bruits Resp normal respiratory effort, normal air movement and clear to auscultation bilaterally Cardio regular rate and regular rhythm GI normal to inspection, nondistended, normoactive bowel sounds, non-tender and non-distended Extremity normal capillary refill General Extremity: Negative for edema Skin no rashes or lesions noted General Skin Exam: no breakdown Psych affect normal Appearance: appropriate Results Lab / Micro Data 09/13/23 05:21 09/13/23 05:21 Assessment & Plan Assessment/Plan (1) Debility: (2) S/P lumbar spinal fusion: (3) Urinary retention: (4) Fecal impaction of colon: (5) Ileus: (6) Hypokalemia: (7) Postoperative anemia: (8) Osteoarthritis: (9) Neuropathic pain: (10) GERD (gastroesophageal reflux disease): (11) Allergic rhinitis: (12) Depression: (13) Hyperlipidemia: (14) Hypothyroidism: (15) Hypertension: (16) Migraine headache: (17) M?ni?re's disease: PLAN: Plan 52 year old female with below past medical history hospitalized for elective L5- S1 fusion 09/03/2023, postoperative course complicated by hypoxia, urinary retention, fecal impaction of colon, ileus, hypokalemia, postoperative anemia, admitted to TCU with debility, here for rehabilitation, strengthening, prior to discharge home alone. * Debility - PT/OT. * Pain - Tylenol 1000mg q8, Oxycodone 20mg bid thru 09/19/2023, Oxycodone 5-10mg q4 prn, Lidoderm 2 patches topical daily. * Bowel - senna/colace 2 tablets bid, Dulcolax 5mg daily. * Adult immunization - Administer pneumonia vaccine, covid vaccine, flu vaccine as appropriate. * DVT prophylaxis - Hold, monitor. * Meniere's disease - Amiloride 5mg daily, Meclizine 25mg tid prn. * CV prophylaxis - Aspirin 325mg daily. * Hyperlipidemia - Atorvastatin 20mg qhs. * Osteoarthritis - Celebrex 200mg daily. * Vitamin D deficiency - D3 25mcg daily. * Allergic rhinitis - Flonase 2 sprays daily prn, Loratadine 10mg daily prn. * Neuropathic pain - Gabapentin 600mg bid. * Depression - Venlafaxine XR 75mg daily, Lamictal 100mg daily, stable chronic fpc use, GDR not recommended. * Hypothyroidism - Levothyroxine 88mcg daily. * Muscle spasm - Robaxin 1000mg tid. * Nutrition - MVI daily. * Nausea - Zofran odt 4mg q8 prn. * GERD - Pantoprazole 40mg daily. * Hypokalemia - KCL 60mg daily. * Migraine - Topamax 100mg bid. * Hypertension - Maxzide 37.5/25mg daily.
[2023-09-12 22:00] VITALS: PULSE 90; RESP 16; O2SAT 97
[2023-09-12] MEDS: oxyCODONE HCl Cr 10 MG Tablet 20 MG PO (22:46)
[2023-09-12] MEDS: Gabapentin 600 MG Tablet PO (22:46)
[2023-09-12] MEDS: Senna/Docusate Sodium 1 Tablet 2 TABLET PO (22:46)
[2023-09-12] MEDS: Atorvastatin Calcium 20 MG Tablet PO (22:47)
[2023-09-12] MEDS: Methocarbamol 500 MG Tablet 1000 MG PO (22:47)
[2023-09-12] MEDS: Acetaminophen 500 MG Tablet 1000 MG PO (22:47)
[2023-09-12] MEDS: Topiramate 100 MG Tablet PO (22:47)
[2023-09-13] MEDS: oxyCODONE 5 MG Tablet PO ×3 (03:28→18:06)
[2023-09-13] MEDS: Methocarbamol 500 MG Tablet 1000 MG PO ×3 (05:48→21:23)
[2023-09-13] MEDS: Acetaminophen 500 MG Tablet 1000 MG PO ×3 (05:48→21:24)
[2023-09-13] MEDS: Levothyroxine 88 MCG Tablet PO (05:48)
[2023-09-13 05:57] LABS: Absolute Lymphocyte Count 2.68 X10^3/uL (0.83-4.51); Absolute Neutrophil Count 9.1 X10^3/uL (2.0-7.7); Basophil# 0.14 X10^3/uL; Eosinophil# 0.45 X10^3/uL; Hematocrit 31.4 % (37-47); Hemoglobin 9.7 g/dL (12.0-15.0); Lymphocyte # 2.68 X10^3/ul (0.83-4.51); Mean Corp Hgb Conc 30.9 g/dL (32-36); Mean Corpuscular Hgb 30.9 pg (27.0-32.0); Mean Platelet Vol. 9.4 fl (6.2-12.0); Monocyte# 0.85 X10^3/uL; NRBC Flagged by Analyzer 0.2 % (0-5); Neutrophil # 9.13 X10^3/uL (2.7-7.7); POSITIVE COUNT YES; POSITIVE MORPHOLOGY YES; Platelet Count 494 K/mm3 (150-450); RBC Distribution Width CV 17.2 % (11.6-14.6); RBC Distribution Width SD 56.5 fl (35.1-43.9); Red Blood Count 3.14 M/mm3 (4.2-5.4); White Blood Count 14.3 K/mm3 (4.4-11.0)
[2023-09-13 06:05] LABS: Differential Indicated SCAN CRITERIA MET
[2023-09-13 06:31] LABS: Anion Gap 2 (5-15); BUN 19 mg/dL (7-18); BUN/Creat Ratio 28.5 RATIO (10-20); Calcium,Total 8.8 mg/dL (8.5-10.1); Chloride 111 mmol/L (98-107); Creatinine, Serum 0.67 mg/dL (0.55-1.02); EST Glomerular Filtration Rate 99 mL/min (>60); Est Glom Filt Rate - Afr Amer 119 mL/min (>60); Estimated Creatinine Clearance 116.47 ml/min; Glucose 94 mg/dL (74-106); Potassium 3.7 mmol/L (3.5-5.1); Sodium Level 140 mmol/L (136-145)
[2023-09-13 06:35] LABS: Eosinophil 3 % (0-5); Lymphocyte 20 % (19-41); Monocyte 4 % (0-10); Myelocyte 2 % (0-0); Neutrophil-Segmented 70 % (47-70); Promyelocyte 1 % (0-0); Total Cells Counted 100 (MANUAL DIFF)
[2023-09-13 06:36] LABS: Anisocytosis 2+; Scan Smear per Review Criteria MANUAL DIFF
[2023-09-13] MEDS: Topiramate 100 MG Tablet PO ×2 (09:20→21:24)
[2023-09-13] MEDS: Aspirin 325 MG Tablet PO (09:21)
[2023-09-13] MEDS: Triamterene 37.5MG/Hctz 25MG Capsule 1 CAP PO (09:21)
[2023-09-13] MEDS: Bisacodyl 5 MG Tablet PO (09:21)
[2023-09-13] MEDS: Multivitamins,Therapeutic Tablet 1 TABLET PO (09:21)
[2023-09-13] MEDS: Senna/Docusate Sodium 1 Tablet 2 TABLET PO ×2 (09:21→21:24)
[2023-09-13] MEDS: lamoTRIgine 100 MG Tablet PO (09:21)
[2023-09-13] MEDS: Potassium Chloride Oral Tablet 20 MEQ 60 MEQ PO (09:21)
[2023-09-13] MEDS: Cholecalciferol (VIT D3) 25 MCG TABLET (1,000 UNITS) PO (09:21)
[2023-09-13] MEDS: Celecoxib 200 MG Capsule PO (09:21)
[2023-09-13] MEDS: Pantoprazole Sodium 40 MG Tablet PO (09:21)
[2023-09-13] MEDS: Gabapentin 600 MG Tablet PO ×2 (09:26→21:23)
[2023-09-13] MEDS: oxyCODONE HCl Cr 10 MG Tablet 20 MG PO ×2 (09:26→21:23)
[2023-09-13] MEDS: Lidocaine 5% Patch 2 PATCH TOPICAL (09:27)
[2023-09-13] MEDS: Venlafaxine XR 75 MG Capsule PO (10:58)
[2023-09-13] MEDS: Tuberculin,Purif.prot.deriv. 50 TU/ML Vial 0.100000000000000006 ML ID (11:04)
[2023-09-13] MEDS: AMILORIDE HCL 5 MG TABLET PO (13:54)
[2023-09-13 14:00] VITALS: BP 125/81; PULSE 83; RESP 16; TEMP 36.3; O2SAT 99
[2023-09-13] MEDS: Bisacodyl 10 MG Suppository RC (18:06)
[2023-09-13 21:00] VITALS: PULSE 74; RESP 16; O2SAT 98
[2023-09-13] MEDS: Atorvastatin Calcium 20 MG Tablet PO (21:25)
[2023-09-14] MEDS: oxyCODONE 5 MG Tablet PO ×4 (01:16→22:42)
[2023-09-14] MEDS: Methocarbamol 500 MG Tablet 1000 MG PO ×3 (05:06→21:14)
[2023-09-14] MEDS: Acetaminophen 500 MG Tablet 1000 MG PO ×3 (05:06→21:12)
[2023-09-14] MEDS: Levothyroxine 88 MCG Tablet PO (05:06)
[2023-09-14 05:54] LABS: Absolute Lymphocyte Count 2.51 X10^3/uL (0.83-4.51); Absolute Neutrophil Count 6.6 X10^3/uL (2.0-7.7); Basophil# 0.09 X10^3/uL; Basophil% 0.8 % (0-1); Eosinophil# 0.36 X10^3/uL; Eosinophils% 3.3 % (0-5); Hemoglobin 9.3 g/dL (12.0-15.0); Lymphocyte # 2.51 X10^3/ul (0.83-4.51); Lymphocyte % 23.2 % (19-41); Mean Corp Hgb Conc 32.1 g/dL (32-36); Mean Corpuscular Hgb 31.5 pg (27.0-32.0); Mean Corpuscular Volume 98.3 fL (81-99); Mean Platelet Vol. 9.3 fl (6.2-12.0); Monocyte# 0.75 X10^3/uL; Monocyte% 6.9 % (0-10); NRBC Flagged by Analyzer 0.3 % (0-5); Neutrophil # 6.62 X10^3/uL (2.7-7.7); Neutrophil % 61.4 % (47-70); Platelet Count 524 K/mm3 (150-450); RBC Distribution Width CV 17.4 % (11.6-14.6); RBC Distribution Width SD 56.8 fl (35.1-43.9); Red Blood Count 2.95 M/mm3 (4.2-5.4); White Blood Count 10.8 K/mm3 (4.4-11.0)
--- NOTE | 2023-09-14 08:22 | NS ---
MST score = 3
[2023-09-14 09:25] LABS: Pathologist Review Reviewed
[2023-09-14] MEDS: oxyCODONE HCl Cr 10 MG Tablet 20 MG PO ×2 (09:43→21:12)
[2023-09-14] MEDS: Topiramate 100 MG Tablet PO ×2 (09:43→21:14)
[2023-09-14] MEDS: Gabapentin 600 MG Tablet PO ×2 (09:43→21:12)
[2023-09-14] MEDS: Lidocaine 5% Patch 2 PATCH TOPICAL (09:44)
[2023-09-14] MEDS: Venlafaxine XR 75 MG Capsule PO (09:44)
[2023-09-14] MEDS: lamoTRIgine 100 MG Tablet PO (09:44)
[2023-09-14] MEDS: Aspirin 325 MG Tablet PO (09:45)
[2023-09-14] MEDS: Potassium Chloride Oral Tablet 20 MEQ 60 MEQ PO (09:45)
[2023-09-14] MEDS: Bisacodyl 5 MG Tablet PO (09:46)
[2023-09-14] MEDS: Multivitamins,Therapeutic Tablet 1 TABLET PO (09:46)
[2023-09-14] MEDS: Celecoxib 200 MG Capsule PO (09:46)
[2023-09-14] MEDS: Cholecalciferol (VIT D3) 25 MCG TABLET (1,000 UNITS) PO (09:47)
[2023-09-14] MEDS: Triamterene 37.5MG/Hctz 25MG Capsule 1 CAP PO (09:47)
[2023-09-14] MEDS: Senna/Docusate Sodium 1 Tablet 2 TABLET PO ×2 (09:47→21:13)
[2023-09-14] MEDS: Pantoprazole Sodium 40 MG Tablet PO (09:47)
--- NOTE | 2023-09-14 10:24 | NURSING ---
Production Tech Note; Activity Asset: Will Page is independent in her choice of daily activities. She has a services dog that will be coming in to spend time w/her. Kaylee will use her phone to read and she enjoys word puzzles and sudoku and crafts. Her metal molder and bile study friends will come and visit w/her and welcomes visits from the paint brush maker and therapy dog. Staff will remind her of daily activities and respect her right to say no.
[2023-09-14] MEDS: diazePAM 5 MG Tablet PO ×3 (11:12→22:42)
--- NOTE | 2023-09-14 13:28 | PCM.PN.DRR ---
TCU RX Drug Regimen Review Subjective/Objective Subjective/Objective: Subjective: 52 YOF admitted to TCU 09/12/23 s/p hospitalization for a L2-S1 lumbar fusion. Hospitalization was complicated by anemia, urinary retention, and bowel ileus. Patient with significant pain, especially in right hip. Admitted to TCU 09/12 for rehabilitation ans strengthening prior to discharge home where she resides alone. Objective: Allergies shellfish derived Allergy (Severe, Verified 09/03/23 06:13) vomitting Penicillins Allergy (Verified 09/03/23 06:13) Hives citric acid Adverse Reaction (Severe, Verified 09/03/23 06:13) wears dowm linning of mouth blisters in mouth duloxetine [From Cymbalta] Adverse Reaction (Intermediate, Verified 09/03/23 06:13) Other weight gain gluten Adverse Reaction (Intermediate, Verified 09/03/23 06:13) stomach discomfort Current Medications Generic Name Dose Route Start Last Admin Trade Name Freq PRN Reason Stop Dose Admin Acetaminophen 1,000 mg 09/12/23 22:00 09/14/23 05:06 Acetaminophen 500 Mg Tablet PO 1,000 mg Q8 LINETTE Administration Amiloride HCl 5 mg 09/13/23 11:00 09/13/23 13:54 Amiloride Hcl 5 Mg Tablet PO 5 mg DAILY LINETTE Administration Aspirin 325 mg 09/13/23 08:00 09/14/23 09:45 Aspirin 325 Mg Tablet PO 325 mg BREAKFAST LINETTE Administration Atorvastatin Calcium 20 mg 09/12/23 22:00 09/13/23 21:25 Atorvastatin Calcium 20 Mg Tablet PO 20 mg QHS LINETTE Administration Bisacodyl 5 mg 09/13/23 10:00 09/14/23 09:46 Bisacodyl 5 Mg Tablet PO 5 mg DAILY LINETTE Administration Bisacodyl 10 mg 09/13/23 16:56 09/13/23 18:06 Bisacodyl 10 Mg Suppository RC 10 mg DAILY PRN Administration Constipation Celecoxib 200 mg 09/13/23 10:00 09/14/23 09:46 Celecoxib 200 Mg Capsule PO 200 mg DAILY LINETTE Administration Cholecalciferol 25 mcg 09/13/23 10:00 09/14/23 09:47 Cholecalciferol (Vit D3) 25 Mcg Tablet (1,000 Units) PO 25 mcg DAILY LINETTE Administration Diazepam 5 mg 09/14/23 07:56 09/14/23 11:12 Diazepam 5 Mg Tablet PO 5 mg 4X/DAY PRN PRN Administration SPASMS Fluticasone Propionate 2 spray 09/12/23 18:52 Fluticasone 0.05% 1 [place] Nasal.Sry NASAL DAILY PRN PRN ALLERGIES Gabapentin 600 mg 09/12/23 22:00 09/14/23 09:43 Gabapentin 600 Mg Tablet PO 600 mg BID LINETTE Administration Lamotrigine 100 mg 09/13/23 10:00 09/14/23 09:44 Lamotrigine 100 Mg Tablet PO 100 mg DAILY LINETTE Administration Levothyroxine Sodium 88 mcg 09/13/23 06:00 09/14/23 05:06 Levothyroxine 88 Mcg Tablet PO 88 mcg 0600 [facility] Administration Lidocaine 2 patch 09/13/23 10:00 09/14/23 09:44 Lidocaine 5% Patch TOPICAL 2 patch DAILY [facility] Administration Protocol Loratadine 10 mg 09/12/23 18:52 Loratadine 10 Mg Tablet PO DAILY PRN allergy symptoms Meclizine HCl 25 mg 09/12/23 18:52 Meclizine Hcl 25 Mg Tablet PO TID PRN dizziness Methocarbamol 1,000 mg 09/12/23 22:00 09/14/23 05:06 Methocarbamol 500 Mg Tablet PO 1,000 mg TID [facility] Administration Multivitamins 1 tablet 09/13/23 08:00 09/14/23 09:46 Multivitamins,Therapeutic Tablet PO 1 tablet DAILYCM LINETTE Administration Ondansetron HCl 4 mg 09/12/23 20:32 Ondansetron Odt 4 Mg Tablet PO Q8H PRN NAUSEA/VOMITING Oxycodone HCl 5 - 10 mg 09/12/23 18:52 09/14/23 11:08 Oxycodone 5 Mg Tablet PO 10 mg Q4H PRN PRN Administration Pain Score 4-10 Oxycodone HCl 20 mg 09/12/23 22:00 09/14/23 09:43 Oxycodone Hcl Cr 10 Mg Tablet PO 09/19/23 10:01 20 mg BID LINETTE Administration Pantoprazole Sodium 40 mg 09/13/23 10:00 09/14/23 09:47 Pantoprazole Sodium 40 Mg Tablet PO 40 mg DAILY LIENTTE Administration Potassium Chloride 60 meq 09/13/23 08:00 09/14/23 09:45 Potassium Chloride Oral Tablet 20 Meq PO 60 meq DAILYCM [facility]ETTE Administration Senna/Docusate Sodium 2 tablet 09/12/23 22:00 09/14/23 09:47 Senna/Docusate Sodium 1 Tablet PO 2 tablet BID LINETTE Administration Sodium Chloride 10 - 40 ml 09/12/23 19:23 0.9% Saline Lock 10 Ml Syringe IV UD PRN SALINE FLUSH Topiramate 100 mg 09/12/23 22:00 09/14/23 09:43 Topiramate 100 Mg Tablet PO 100 mg BID LINETTE Administration Triamterene/Hydrochlorothiazide 1 cap 09/13/23 10:00 09/14/23 09:47 Triamterene 37.5mg/Hctz 25mg Capsule PO 1 cap DAILY [facility]TE Administration Tuberculin PPD 0.1 ml 09/20/23 10:00 Tuberculin,Purif.Prot.Deriv. 50 Tu/Ml Vial ID 09/20/23 10:01 X1 ONE Venlafaxine HCl 75 mg 09/13/23 10:00 09/14/23 09:44 Venlafaxine Xr 75 Mg Capsule PO 75 mg DAILY LINETTE Administration Problem List (Updated 09/12/23 @ 20:[address] Ky Henderson MD) Migraine headache (Acute) Hypertension (Chronic) Hypothyroidism (Acute) Hyperlipidemia (Acute) Depression (Acute) Allergic rhinitis (Acute) GERD (gastroesophageal reflux disease) (Acute) Neuropathic pain (Acute) Osteoarthritis (Acute) Postoperative anemia (Acute) Fecal impaction of colon (Acute) Urinary retention (Acute) Debility (Acute) Ileus (Acute) S/P lumbar spinal fusion (Acute) M?ni?re's disease (Chronic) Hypokalemia (Acute) Vital Signs Temp Pulse Resp BP Pulse Ox O2 Del Method 97.3 F L 74 16 125/81 H 98 Room Air 09/13/23 14:00 09/13/23 21:00 09/13/23 21:00 09/13/23 14:00 09/13/23 21:00 09/13/23 21:00 Oxygen Delivery Method Room Air Weight: 102.285 kg Body Mass Index (BMI) 37.5 Sodium 140 mmol/L (136-145) 09/13/23 05:21 Potassium 3.7 mmol/L (3.5-5.1) 09/13/23 05:21 Chloride 111 mmol/L (98-107) H 09/13/23 05:21 Carbon Dioxide 27.0 mmol/L (21.0-32.0) 09/13/23 05:21 Anion Gap 2 (5-15) L 09/13/23 05:21 BUN 19 mg/dL (7-18) H 09/13/23 05:21 Creatinine 0.67 mg/dL (0.55-1.02) 09/13/23 05:21 Est GFR (MDRD) Af Amer 119 mL/min (>60) 09/13/23 05:21 Est GFR (MDRD) Non-Af 99 mL/min (>60) 09/13/23 05:21 BUN/Creatinine Ratio 28.5 RATIO (10-20) H 09/13/23 05:21 Glucose 94 mg/dL (74-106) 09/13/23 05:21 Assessment/Plan: 1. Pain: Tylenol 1000mg PO Q8, Lidocaine patch 2 patches topically daily, Oxycodone CR 20mg PO BID thru 09/19/23, Oxycodone 5-10mg PO Q4h PRN. Please continue to monitor for increased/decreased S/S pain, local site redness/irritation, PRN medication usage, constipation/oversedation with scheduled narcotic use. - To date, the patient has used 7 doses of PRN oxycodone since admission, with pre-med pain score rated 7-10 and post-pain medical educator rate 0/10. Please continue to monitor use and consider extending schedule use if PRN usage remains high. 2. Osteoarthritis: Celebrex 200mg PO daily. Please continue to monitor for medication effectiveness, renal function (SCr 0.67 09/13), platelet counts (524 on 09/13). 3. HTN/HLD/CV: Aspirin 325mg PO Daily, Lipitor 20mg PO QHS, Triamterene/HCTZ 1 cap PO Daily. Please continue to monitor for S/S bleeding/bruising, BP (last 125/51), Lipid panel annually or sooner if clinically indicated (last done 01/2019), renal function (WNL), and potassium level (3.7 on 09/13). 4. Hypothyroid: Synthroid 88mcg PO Daily. Please continue to monitor TSH levels as clinically indicated (last TSH 1.68 on 08/20/23), S/S hypo/hyperthyroid. 5. GERD: Protonix 40mg PO Daily. Please continue to monitor for improvement in GERD symptoms. Please also encourage non-pharmacologic treatments to help minimize GERD flare-ups. 6. Hypokalemia: KCl 60mEq PO Daily. Please continue to monitor for nausea/vomiting, abdominal pain, K level (3.7 on 09/13). 7. Neuropathic pain: Gabapentin 600mg PO BID. Please continue to monitor for fall risk, increased/decreased pain. 8. Meniere's Disease: Amiloride 5mg PO Daily, Meclizine 25mg PO TID PRN. Please continue to monitor BP (last 125/51), potassium levels (last 3.7 on 09/13), PRN medication use (pt has not needed any doses since admission). 9. Migraine: Lamictal 100mg PO daily, Topiramate 100mg PO BID. Please continue to monitor for dizziness, oversedation, blurred vision, diarrhea, n/v. 10. Allergic Rhinitis: Loratadine 10mg PO Daily PRN, Flonase 2 spray daily PRN. Please continue to monitor for symptoms, medication effectiveness, PRN med use. - To date, the patient has not required any PRN medication doses 11. Nausea: Zofran 4mg PO Q8h PRN. Please continue to monitor for headache, PRN use, medication effectiveness. - The patient has not required any PRN medication doses since admission. 12. General Wellness: Vitamin D 25mcg PO Daily, MVI 1 tab PO Daily. 13. Bowel: Dulcolax 5mg PO Daily, Senna/docusate 2 tab PO BID, Dulcolax 10mg [place] Daily PRN. Please continue to monitor for increased/decreased constipation and/or diarrhea. -The patient had a documented bowel movement today. Please continue to monitor closely given narcotic usage and increased risk of constipation. Assessment/Plan for indications treated with psychotropic medications: 1. Depression: Effexor XR 75mg PO Daily. Please consider a GDR by 03/2024 if clinically indicated, thank you. 2. Muscle spasm: Methocarbamol 1000mg PO TID, Valium 5mg PO 4x/day PRN. Please continue to monitor patient closely for oversedation, especially with ongoing narcotic use. Please also continue to monitor for PRN use, medication effectiveness. - To date, the patient has required 1 PRN dose of Valium since admission. Medical chart and medication regimen reviewed. The following medication irregularities or issues were identified: 1. Depression: Effexor XR 75mg PO Daily, Lamictal 100mg PO daily. Please consider a GDR by 03/2024 if clinically indicated, thank you. 2. Hyperlipidemia: Please consider obtaining a lipid panel for this patient if clinically indicated. it appears the last time this was checked was January 2019. Date Date of Note:: 09/14/23
[2023-09-14 14:00] VITALS: BP 134/81; PULSE 73; RESP 16; TEMP 36.5; O2SAT 95
[2023-09-14] MEDS: AMILORIDE HCL 5 MG TABLET PO (14:11)
--- NOTE | 2023-09-14 14:12 | CASEMGMT ---
Social Work Met with patient to complete initial assessment. Introduced self and role. Verified contacts. Confirmed code status as full code. Pt states she is unable to have anyone provide copies of advanced directives - kept in her safe, but has named son, Antoine, as HCPOA. Educated to [facility] / and continued stay is not guaranteed with each review. Educated to transferring to another SNF INN to use [facility] benefit, if needed. Pt's goal is to return home closer to [place] and have pain controlled. SW educated to pt allowing to have her service dog for Meniere's Disease present during stay as long as someone can take the dog out. Pt appreciative and will have the dog visit and see if it would beneficial for her and the dog to stay during the day. Currently, the dog is staying with her son. SW offered ongoing support as needed and will follow for DC planning. Tory Robbins, MEME HENDRICKSW
[2023-09-14] MEDS: Atorvastatin Calcium 20 MG Tablet PO (21:13)
[2023-09-15] MEDS: oxyCODONE 5 MG Tablet PO ×3 (04:48→17:31)
[2023-09-15] MEDS: Methocarbamol 500 MG Tablet 1000 MG PO ×3 (04:49→22:07)
[2023-09-15] MEDS: Acetaminophen 500 MG Tablet 1000 MG PO ×3 (04:49→22:06)
[2023-09-15] MEDS: Levothyroxine 88 MCG Tablet PO (04:50)
[2023-09-15 09:35] VITALS: BP 126/85; PULSE 100; RESP 17; TEMP 36.4; O2SAT 95
[2023-09-15] MEDS: Aspirin 325 MG Tablet PO (09:38)
[2023-09-15] MEDS: Potassium Chloride Oral Tablet 20 MEQ 60 MEQ PO (09:39)
[2023-09-15] MEDS: Multivitamins,Therapeutic Tablet 1 TABLET PO (09:39)
[2023-09-15] MEDS: Celecoxib 200 MG Capsule PO (09:40)
[2023-09-15] MEDS: AMILORIDE HCL 5 MG TABLET PO (09:40)
[2023-09-15] MEDS: Topiramate 100 MG Tablet PO ×2 (09:41→22:07)
[2023-09-15] MEDS: Venlafaxine XR 75 MG Capsule PO (09:42)
[2023-09-15] MEDS: Triamterene 37.5MG/Hctz 25MG Capsule 1 CAP PO (09:43)
[2023-09-15] MEDS: Pantoprazole Sodium 40 MG Tablet PO (09:44)
[2023-09-15] MEDS: Lidocaine 5% Patch 2 PATCH TOPICAL (09:44)
[2023-09-15] MEDS: Senna/Docusate Sodium 1 Tablet 2 TABLET PO ×2 (09:44→22:07)
[2023-09-15] MEDS: lamoTRIgine 100 MG Tablet PO (09:44)
[2023-09-15] MEDS: Cholecalciferol (VIT D3) 25 MCG TABLET (1,000 UNITS) PO (09:45)
[2023-09-15] MEDS: oxyCODONE HCl Cr 10 MG Tablet 20 MG PO ×2 (09:48→22:05)
[2023-09-15] MEDS: Gabapentin 600 MG Tablet PO ×2 (09:48→22:05)
[2023-09-15 10:55] LABS: Hematocrit 29.4 % (37-47); Hemoglobin 9.3 g/dL (12.0-15.0)
[2023-09-15 20:30] VITALS: PULSE 88; RESP 18; O2SAT 99
[2023-09-15] MEDS: Atorvastatin Calcium 20 MG Tablet PO (22:08)
[2023-09-16] MEDS: diazePAM 5 MG Tablet PO (00:09)
[2023-09-16] MEDS: oxyCODONE 5 MG Tablet PO ×2 (01:15→15:55)
--- NOTE | 2023-09-16 03:30 | NURSING ---
Patient sales representative wire rope (Jennifer) as listed on contact list, contacted via phone, notified of patient c/o of continued abdominal pain and order to send to ED, no concerns voiced at this time, expresses thanks for update.
--- NOTE | 2023-09-16 03:34 | NURSING ---
Patient c/o right side abdomen pain 10/10 despite pharmacologic/non-pharmacologic interventions. Patient tearful, voices frustrated that no one will give me answers on why this keeps happening since my surgery . Patient reports severe muscle spasms to right abdomen/back/ and hip. Patient reports imaging performed on acute side to address abdominal pain but has continued and it's always worse at night . Patient requesting a second opinion regarding abdominal pain, stating it's the worst it has been . Dr. Henderson paged at 02:47 return call at 02:50. Dr. Henderson notified of patient c/o 10/10 pain, reviewed medications administered (see MAR) and patient request for second opinion due to continued abdominal pain/spasms post L2-S1 lumbar fusion . Order received to send to ED, order repeated back to Dr. Henderson. Patient transported to ED approx 0315 by this nurse and global sales director via bed, verbal report given to MARIO Partida.
--- NOTE | 2023-09-16 07:26 | NURSING ---
Report received from MARIO Quinn, pt will be transferred back to TCU. Given IV Zofran and Dilaudid in the ER. Will keep s/l in place. No new orders per ER physician. Recommend increasing fluids and supportive care. DRY GOODS CLERK from TCU to transport pt back to the unit.
--- NOTE | 2023-09-16 07:34 | NURSING ---
Patient returned to unit at this time via wheelchair from ED.
[2023-09-16] MEDS: Acetaminophen 500 MG Tablet 1000 MG PO ×3 (07:44→21:41)
[2023-09-16] MEDS: Levothyroxine 88 MCG Tablet PO (07:44)
[2023-09-16] MEDS: Methocarbamol 500 MG Tablet 1000 MG PO ×3 (07:44→21:42)
[2023-09-16 09:33] VITALS: BP 144/85; PULSE 83; RESP 18; TEMP 37; O2SAT 97
[2023-09-16] MEDS: Aspirin 325 MG Tablet PO (09:35)
[2023-09-16] MEDS: Potassium Chloride Oral Tablet 20 MEQ 60 MEQ PO (09:35)
[2023-09-16] MEDS: Multivitamins,Therapeutic Tablet 1 TABLET PO (09:35)
[2023-09-16] MEDS: Celecoxib 200 MG Capsule PO (09:36)
[2023-09-16] MEDS: Bisacodyl 5 MG Tablet PO (09:36)
[2023-09-16] MEDS: AMILORIDE HCL 5 MG TABLET PO (09:36)
[2023-09-16] MEDS: Venlafaxine XR 75 MG Capsule PO (09:37)
[2023-09-16] MEDS: Topiramate 100 MG Tablet PO ×2 (09:37→21:44)
[2023-09-16] MEDS: Triamterene 37.5MG/Hctz 25MG Capsule 1 CAP PO (09:37)
[2023-09-16] MEDS: Pantoprazole Sodium 40 MG Tablet PO (09:38)
[2023-09-16] MEDS: Senna/Docusate Sodium 1 Tablet 2 TABLET PO ×2 (09:38→21:44)
[2023-09-16] MEDS: Lidocaine 5% Patch 2 PATCH TOPICAL (09:38)
[2023-09-16] MEDS: lamoTRIgine 100 MG Tablet PO (09:38)
[2023-09-16] MEDS: Cholecalciferol (VIT D3) 25 MCG TABLET (1,000 UNITS) PO (09:40)
[2023-09-16] MEDS: Gabapentin 600 MG Tablet PO ×2 (09:43→21:40)
[2023-09-16] MEDS: oxyCODONE HCl Cr 10 MG Tablet 20 MG PO ×2 (09:43→21:40)
[2023-09-16] MEDS: Doxycycline 100 MG CAPSULE PO ×2 (11:12→21:41)
[2023-09-16] MEDS: Magnesium Citrate 300 ML PO (11:12)
--- NOTE | 2023-09-16 13:56 | NURSING ---
Addendum entered by Ronal Liu 09/16/23 15:52: Patient had 2nd BM after Mag Citrate and SSE. Medium BM, soft, formed, and brown. Nulytely not given. Original Note: SSE given as ordered to patient. Patient had small results. Patient tolerated task well. Firm, round stool noted in commode.
[2023-09-16] MEDS: Atorvastatin Calcium 20 MG Tablet PO (21:43)
[2023-09-16 22:00] VITALS: PULSE 84; RESP 16; O2SAT 99
[2023-09-17] MEDS: diazePAM 5 MG Tablet PO (00:33)
[2023-09-17] MEDS: oxyCODONE 5 MG Tablet PO ×3 (01:34→18:07)
[2023-09-17] MEDS: Acetaminophen 500 MG Tablet 1000 MG PO ×3 (05:36→21:16)
[2023-09-17] MEDS: 0.9% Saline Lock 10 ML Syringe IV ×3 (05:37→21:21)
[2023-09-17] MEDS: Methocarbamol 500 MG Tablet 1000 MG PO ×3 (05:37→21:15)
[2023-09-17] MEDS: Levothyroxine 88 MCG Tablet PO (05:37)
[2023-09-17 06:20] LABS: Hemoglobin 9.3 g/dL (12.0-15.0)
--- NOTE | 2023-09-17 06:59 | NURSING ---
Patient c/o insomnia, written communication left for Dr. Henderson
[2023-09-17] MEDS: Bisacodyl 5 MG Tablet 10 MG PO (09:46)
[2023-09-17] MEDS: Senna/Docusate Sodium 1 Tablet 2 TABLET PO ×2 (09:46→21:16)
[2023-09-17] MEDS: Cholecalciferol (VIT D3) 25 MCG TABLET (1,000 UNITS) PO (09:46)
[2023-09-17] MEDS: Topiramate 100 MG Tablet PO ×2 (09:46→21:18)
[2023-09-17] MEDS: Venlafaxine XR 75 MG Capsule PO (09:46)
[2023-09-17] MEDS: Celecoxib 200 MG Capsule PO (09:47)
[2023-09-17] MEDS: Lidocaine 5% Patch 2 PATCH TOPICAL (09:47)
[2023-09-17] MEDS: Triamterene 37.5MG/Hctz 25MG Capsule 1 CAP PO (09:47)
[2023-09-17] MEDS: lamoTRIgine 100 MG Tablet PO (09:47)
[2023-09-17] MEDS: AMILORIDE HCL 5 MG TABLET PO (09:47)
[2023-09-17] MEDS: Doxycycline 100 MG CAPSULE PO ×2 (09:47→21:16)
[2023-09-17] MEDS: oxyCODONE HCl Cr 10 MG Tablet 20 MG PO ×2 (09:48→21:15)
[2023-09-17] MEDS: Gabapentin 600 MG Tablet PO ×2 (09:51→21:14)
[2023-09-17] MEDS: Multivitamins,Therapeutic Tablet 1 TABLET PO (09:51)
[2023-09-17] MEDS: Potassium Chloride Oral Tablet 20 MEQ 60 MEQ PO (09:51)
[2023-09-17] MEDS: Pantoprazole Sodium 40 MG Tablet PO (09:51)
[2023-09-17] MEDS: Aspirin 325 MG Tablet PO (09:51)
[2023-09-17 10:02] VITALS: BP 134/85; PULSE 79
--- NOTE | 2023-09-17 11:12 | NURSING ---
Updated patient about follow-up with Dr. Lipscomb. If still here he will see her on TCU.
[2023-09-17 14:00] VITALS: BP 131/80; PULSE 87; RESP 14; TEMP 36.7; O2SAT 96
[2023-09-17] MEDS: Doxepin Hcl 25 MG Capsule PO (21:17)
[2023-09-17] MEDS: Atorvastatin Calcium 20 MG Tablet PO (21:18)
[2023-09-18] MEDS: oxyCODONE 5 MG Tablet PO ×4 (00:03→20:38)
[2023-09-18] MEDS: diazePAM 5 MG Tablet PO ×2 (00:18→22:43)
[2023-09-18] MEDS: Methocarbamol 500 MG Tablet 1000 MG PO ×3 (06:03→22:43)
[2023-09-18] MEDS: Acetaminophen 500 MG Tablet 1000 MG PO ×3 (06:03→22:44)
[2023-09-18] MEDS: Levothyroxine 88 MCG Tablet PO (06:03)
[2023-09-18] MEDS: Lidocaine 5% Patch 2 PATCH TOPICAL (08:14)
[2023-09-18] MEDS: Potassium Chloride Oral Tablet 20 MEQ 60 MEQ PO (08:15)
[2023-09-18] MEDS: Doxycycline 100 MG CAPSULE PO ×2 (08:15→22:44)
[2023-09-18] MEDS: lamoTRIgine 100 MG Tablet PO (08:15)
[2023-09-18] MEDS: Aspirin 325 MG Tablet PO (08:15)
[2023-09-18] MEDS: Cholecalciferol (VIT D3) 25 MCG TABLET (1,000 UNITS) PO (08:15)
[2023-09-18] MEDS: Topiramate 100 MG Tablet PO ×2 (08:15→22:47)
[2023-09-18] MEDS: Pantoprazole Sodium 40 MG Tablet PO (08:15)
[2023-09-18] MEDS: Senna/Docusate Sodium 1 Tablet 2 TABLET PO ×2 (08:15→22:45)
[2023-09-18] MEDS: Multivitamins,Therapeutic Tablet 1 TABLET PO (08:16)
[2023-09-18] MEDS: Venlafaxine XR 75 MG Capsule PO (08:16)
[2023-09-18] MEDS: AMILORIDE HCL 5 MG TABLET PO (08:16)
[2023-09-18] MEDS: Bisacodyl 5 MG Tablet 10 MG PO (08:16)
[2023-09-18] MEDS: Celecoxib 200 MG Capsule PO (08:16)
[2023-09-18] MEDS: Triamterene 37.5MG/Hctz 25MG Capsule 1 CAP PO (08:16)
[2023-09-18] MEDS: Gabapentin 600 MG Tablet PO ×2 (08:19→22:43)
[2023-09-18] MEDS: COVID VAC 23-24(12UP)(ANDU)/PF 50 MCG/0.5 ML SYRINGE IM (10:00)
[2023-09-18] MEDS: oxyCODONE HCl Cr 10 MG Tablet 20 MG PO ×2 (10:04→22:43)
[2023-09-18 11:00] VITALS: BP 140/85; PULSE 89; RESP 16; TEMP 36.5; O2SAT 97
[2023-09-18 16:37] VITALS: BMI 37.0
[2023-09-18 21:00] VITALS: RESP 14
[2023-09-18] MEDS: Atorvastatin Calcium 20 MG Tablet PO (22:46)
[2023-09-18] MEDS: Doxepin Hcl 25 MG Capsule PO (22:47)
[2023-09-19] MEDS: oxyCODONE 5 MG Tablet PO ×4 (01:09→20:48)
[2023-09-19] MEDS: diazePAM 5 MG Tablet PO (03:58)
[2023-09-19] MEDS: Acetaminophen 500 MG Tablet 1000 MG PO ×3 (05:24→20:54)
[2023-09-19] MEDS: Methocarbamol 500 MG Tablet 1000 MG PO ×3 (05:25→20:48)
[2023-09-19] MEDS: Levothyroxine 88 MCG Tablet PO (05:25)
[2023-09-19 05:54] LABS: Hematocrit 31.2 % (37-47); Hemoglobin 9.6 g/dL (12.0-15.0)
[2023-09-19 08:02] VITALS: BP 136/77; PULSE 90; RESP 18; TEMP 36.6; O2SAT 97
[2023-09-19] MEDS: Lidocaine 5% Patch 2 PATCH TOPICAL (09:21)
[2023-09-19] MEDS: Aspirin 325 MG Tablet PO (09:24)
[2023-09-19] MEDS: Multivitamins,Therapeutic Tablet 1 TABLET PO (09:25)
[2023-09-19] MEDS: Potassium Chloride Oral Tablet 20 MEQ 60 MEQ PO (09:25)
[2023-09-19] MEDS: AMILORIDE HCL 5 MG TABLET PO (09:27)
[2023-09-19] MEDS: Celecoxib 200 MG Capsule PO (09:28)
[2023-09-19] MEDS: Doxycycline 100 MG CAPSULE PO ×2 (09:28→20:50)
[2023-09-19] MEDS: Triamterene 37.5MG/Hctz 25MG Capsule 1 CAP PO (09:30)
[2023-09-19] MEDS: Bisacodyl 5 MG Tablet 10 MG PO (09:30)
[2023-09-19] MEDS: Venlafaxine XR 75 MG Capsule PO (09:31)
[2023-09-19] MEDS: lamoTRIgine 100 MG Tablet PO (09:31)
[2023-09-19] MEDS: Pantoprazole Sodium 40 MG Tablet PO (09:32)
[2023-09-19] MEDS: Senna/Docusate Sodium 1 Tablet 2 TABLET PO ×2 (09:32→20:50)
[2023-09-19] MEDS: Cholecalciferol (VIT D3) 25 MCG TABLET (1,000 UNITS) PO (09:33)
[2023-09-19] MEDS: Topiramate 100 MG Tablet PO ×2 (09:33→20:49)
[2023-09-19] MEDS: oxyCODONE HCl Cr 10 MG Tablet 20 MG PO (09:40)
[2023-09-19] MEDS: Gabapentin 600 MG Tablet PO ×2 (09:42→20:48)
--- NOTE | 2023-09-19 10:32 | CASEMGMT ---
Social Work IDT met with patient and father for care plan meeting. Discussed patient's progress in PT/OT/SN. Educated to [facility] NRD 09/24 and EDC 09/27. Pt is adlib and noted insurance will issue DC. Offered to set DC date prior. Pt stated she is still struggling with pain in the evenings. Nursing notified. Pt to notify this worker on requested DC date. Discussed HHC vs OP and DME needs. Pt prefers HHC, and requesting BSC, FWW and half bed rail. SW to coordinate BSC and FWW, and provided resources for half bed rail as that is not covered by insurance. SW will continue to follow for DC planning. Tory Robbins, MEME HENDRICKSW
--- NOTE | 2023-09-19 13:17 | CASEMGMT ---
Social Work BIMS () and PHQ-2 () completed for MDS assessment. Tory Robbins MSW DEWER
[2023-09-19 14:00] VITALS: BP 140/79; PULSE 101; RESP 18; TEMP 36.1; O2SAT 95
[2023-09-19] MEDS: Atorvastatin Calcium 20 MG Tablet PO (20:49)
[2023-09-19] MEDS: Doxepin Hcl 25 MG Capsule PO (20:50)
[2023-09-20] MEDS: oxyCODONE 5 MG Tablet PO ×3 (01:50→20:15)
[2023-09-20] MEDS: Gabapentin 600 MG Tablet PO ×3 (05:17→21:41)
[2023-09-20] MEDS: Levothyroxine 88 MCG Tablet PO (05:18)
[2023-09-20] MEDS: Methocarbamol 500 MG Tablet 1000 MG PO ×3 (05:18→21:40)
[2023-09-20] MEDS: Acetaminophen 500 MG Tablet 1000 MG PO ×3 (05:18→21:41)
[2023-09-20 05:56] LABS: Absolute Lymphocyte Count 1.37 X10^3/uL (0.83-4.51); Absolute Neutrophil Count 2.3 X10^3/uL (2.0-7.7); Basophil# 0.07 X10^3/uL; Basophil% 1.5 % (0-1); Eosinophil# 0.23 X10^3/uL; Hematocrit 31.9 % (37-47); Hemoglobin 9.9 g/dL (12.0-15.0); Lymphocyte # 1.37 X10^3/ul (0.83-4.51); Lymphocyte % 29.5 % (19-41); Mean Corpuscular Hgb 30.6 pg (27.0-32.0); Mean Corpuscular Volume 98.5 fL (81-99); Mean Platelet Vol. 9.3 fl (6.2-12.0); Monocyte# 0.69 X10^3/uL; Monocyte% 14.9 % (0-10); NRBC Flagged by Analyzer 0 % (0-5); Neutrophil # 2.25 X10^3/uL (2.7-7.7); Neutrophil % 48.5 % (47-70); Platelet Count 512 K/mm3 (150-450); RBC Distribution Width SD 61.6 fl (35.1-43.9); Red Blood Count 3.24 M/mm3 (4.2-5.4); White Blood Count 4.6 K/mm3 (4.4-11.0)
[2023-09-20 06:13] LABS: Anion Gap 4 (5-15); BUN 27 mg/dL (7-18); BUN/Creat Ratio 35.9 RATIO (10-20); Calcium,Total 8.4 mg/dL (8.5-10.1); Chloride 110 mmol/L (98-107); Creatinine, Serum 0.75 mg/dL (0.55-1.02); EST Glomerular Filtration Rate 86 mL/min (>60); Est Glom Filt Rate - Afr Amer 104 mL/min (>60); Estimated Creatinine Clearance 103.29 ml/min; Glucose 87 mg/dL (74-106); Potassium 3.7 mmol/L (3.5-5.1); Sodium Level 138 mmol/L (136-145)
[2023-09-20 09:14] VITALS: BP 134/90; PULSE 87; RESP 15; TEMP 36.8; O2SAT 95
[2023-09-20] MEDS: Aspirin 325 MG Tablet PO (09:17)
[2023-09-20] MEDS: Potassium Chloride Oral Tablet 20 MEQ 60 MEQ PO (09:17)
[2023-09-20] MEDS: Celecoxib 200 MG Capsule PO (09:18)
[2023-09-20] MEDS: Multivitamins,Therapeutic Tablet 1 TABLET PO (09:18)
[2023-09-20] MEDS: Doxycycline 100 MG CAPSULE PO ×2 (09:18→21:41)
[2023-09-20] MEDS: AMILORIDE HCL 5 MG TABLET PO (09:18)
[2023-09-20] MEDS: Triamterene 37.5MG/Hctz 25MG Capsule 1 CAP PO (09:19)
[2023-09-20] MEDS: Senna/Docusate Sodium 1 Tablet 2 TABLET PO (09:19)
[2023-09-20] MEDS: Venlafaxine XR 75 MG Capsule PO (09:19)
[2023-09-20] MEDS: Lidocaine 5% Patch 2 PATCH TOPICAL (09:19)
[2023-09-20] MEDS: Pantoprazole Sodium 40 MG Tablet PO (09:19)
[2023-09-20] MEDS: lamoTRIgine 100 MG Tablet PO (09:19)
[2023-09-20] MEDS: Cholecalciferol (VIT D3) 25 MCG TABLET (1,000 UNITS) PO (09:20)
[2023-09-20] MEDS: Topiramate 100 MG Tablet PO ×2 (09:20→21:40)
[2023-09-20] MEDS: diazePAM 5 MG Tablet 10 MG PO (09:27)
[2023-09-20] MEDS: Tuberculin,Purif.prot.deriv. 50 TU/ML Vial 0.100000000000000006 ML ID (11:19)
--- NOTE | 2023-09-20 13:27 | MDS.RN ---
Information for the mds was obtained from review of the clinical record, interview of resident, staff, and direct observation of resident's care.
[2023-09-20] MEDS: Doxepin Hcl 25 MG Capsule PO (21:41)
[2023-09-20] MEDS: Atorvastatin Calcium 20 MG Tablet PO (21:41)
[2023-09-21] MEDS: oxyCODONE 5 MG Tablet PO ×3 (00:31→12:40)
[2023-09-21] MEDS: Acetaminophen 500 MG Tablet 1000 MG PO ×3 (05:40→21:25)
[2023-09-21] MEDS: Methocarbamol 500 MG Tablet 1000 MG PO ×3 (05:40→21:24)
[2023-09-21] MEDS: Gabapentin 600 MG Tablet PO ×3 (05:40→21:25)
[2023-09-21] MEDS: Levothyroxine 88 MCG Tablet PO (05:40)
[2023-09-21 05:52] LABS: Hematocrit 31.5 % (37-47); Hemoglobin 9.8 g/dL (12.0-15.0)
[2023-09-21] MEDS: Pantoprazole Sodium 40 MG Tablet PO (07:59)
[2023-09-21] MEDS: Potassium Chloride Oral Tablet 20 MEQ 60 MEQ PO (07:59)
[2023-09-21] MEDS: Celecoxib 200 MG Capsule PO (07:59)
[2023-09-21] MEDS: lamoTRIgine 100 MG Tablet PO (07:59)
[2023-09-21] MEDS: AMILORIDE HCL 5 MG TABLET PO (07:59)
[2023-09-21] MEDS: Aspirin 325 MG Tablet PO (07:59)
[2023-09-21] MEDS: Multivitamins,Therapeutic Tablet 1 TABLET PO (07:59)
[2023-09-21] MEDS: Cholecalciferol (VIT D3) 25 MCG TABLET (1,000 UNITS) PO (08:00)
[2023-09-21] MEDS: Senna/Docusate Sodium 1 Tablet 2 TABLET PO (08:00)
[2023-09-21] MEDS: Bisacodyl 5 MG Tablet 10 MG PO (08:00)
[2023-09-21] MEDS: Venlafaxine XR 75 MG Capsule PO (08:00)
[2023-09-21] MEDS: Triamterene 37.5MG/Hctz 25MG Capsule 1 CAP PO (08:00)
[2023-09-21] MEDS: Topiramate 100 MG Tablet PO ×2 (08:00→21:24)
[2023-09-21] MEDS: Doxycycline 100 MG CAPSULE PO ×2 (08:00→21:24)
[2023-09-21] MEDS: diazePAM 5 MG Tablet 10 MG PO (10:47)
[2023-09-21] MEDS: Lidocaine 5% Patch 2 PATCH TOPICAL (10:50)
[2023-09-21 14:00] VITALS: BP 131/83; PULSE 89; RESP 18; TEMP 36.8; O2SAT 96
[2023-09-21] MEDS: Divalproex Sodium 250 MG Tablet 500 MG PO ×2 (14:37→17:41)
[2023-09-21 21:00] VITALS: PULSE 82; RESP 16; O2SAT 98
[2023-09-21] MEDS: Doxepin Hcl 25 MG Capsule PO (21:24)
[2023-09-21] MEDS: Atorvastatin Calcium 20 MG Tablet PO (21:25)
[2023-09-22] MEDS: oxyCODONE 5 MG Tablet PO ×3 (00:29→22:16)
[2023-09-22] MEDS: Levothyroxine 88 MCG Tablet PO (05:16)
[2023-09-22] MEDS: Gabapentin 600 MG Tablet PO ×4 (05:16→22:17)
[2023-09-22] MEDS: Methocarbamol 500 MG Tablet 1000 MG PO (05:16)
[2023-09-22] MEDS: Acetaminophen 500 MG Tablet 1000 MG PO ×3 (05:16→22:18)
[2023-09-22 06:07] VITALS: RESP 16
[2023-09-22] MEDS: Lidocaine 5% Patch 2 PATCH TOPICAL (08:19)
[2023-09-22] MEDS: lamoTRIgine 100 MG Tablet PO (08:20)
[2023-09-22] MEDS: Pantoprazole Sodium 40 MG Tablet PO (08:20)
[2023-09-22] MEDS: Celecoxib 200 MG Capsule PO (08:21)
[2023-09-22] MEDS: Doxycycline 100 MG CAPSULE PO ×2 (08:21→22:20)
[2023-09-22] MEDS: Aspirin 325 MG Tablet PO (08:21)
[2023-09-22] MEDS: Potassium Chloride Oral Tablet 20 MEQ 60 MEQ PO (08:21)
[2023-09-22] MEDS: Triamterene 37.5MG/Hctz 25MG Capsule 1 CAP PO (08:21)
[2023-09-22] MEDS: Cholecalciferol (VIT D3) 25 MCG TABLET (1,000 UNITS) PO (08:21)
[2023-09-22] MEDS: AMILORIDE HCL 5 MG TABLET PO (08:21)
[2023-09-22] MEDS: Venlafaxine XR 75 MG Capsule PO (08:21)
[2023-09-22] MEDS: Multivitamins,Therapeutic Tablet 1 TABLET PO (08:21)
[2023-09-22] MEDS: Divalproex Sodium 250 MG Tablet 500 MG PO (08:22)
[2023-09-22] MEDS: Topiramate 100 MG Tablet PO ×2 (08:22→22:16)
[2023-09-22] MEDS: Senna/Docusate Sodium 1 Tablet 2 TABLET PO ×2 (08:23→22:19)
[2023-09-22 11:13] VITALS: BP 134/84; PULSE 96; RESP 18; TEMP 36.3; O2SAT 95
[2023-09-22] MEDS: diazePAM 5 MG Tablet 10 MG PO (11:14)
[2023-09-22] MEDS: Baclofen 10 MG Tablet 20 MG PO ×3 (13:17→22:17)
[2023-09-22 14:00] VITALS: BP 118/85; PULSE 88; RESP 14; TEMP 36.4; O2SAT 95
[2023-09-22] MEDS: Doxepin Hcl 25 MG Capsule PO (22:17)
[2023-09-22] MEDS: Atorvastatin Calcium 20 MG Tablet PO (22:20)
[2023-09-23] MEDS: Gabapentin 600 MG Tablet PO ×4 (05:19→20:57)
[2023-09-23] MEDS: Acetaminophen 500 MG Tablet 1000 MG PO ×3 (05:19→20:57)
[2023-09-23] MEDS: Baclofen 10 MG Tablet 20 MG PO ×4 (05:19→20:57)
[2023-09-23] MEDS: Levothyroxine 88 MCG Tablet PO (05:19)
[2023-09-23 08:39] VITALS: BP 122/74; PULSE 96; RESP 17; TEMP 36.8; O2SAT 94
[2023-09-23] MEDS: Doxycycline 100 MG CAPSULE PO ×2 (08:44→20:58)
[2023-09-23] MEDS: Multivitamins,Therapeutic Tablet 1 TABLET PO (08:44)
[2023-09-23] MEDS: Celecoxib 200 MG Capsule PO (08:44)
[2023-09-23] MEDS: Potassium Chloride Oral Tablet 20 MEQ 60 MEQ PO (08:44)
[2023-09-23] MEDS: Aspirin 325 MG Tablet PO (08:44)
[2023-09-23] MEDS: AMILORIDE HCL 5 MG TABLET PO (08:44)
[2023-09-23] MEDS: Triamterene 37.5MG/Hctz 25MG Capsule 1 CAP PO (08:45)
[2023-09-23] MEDS: Bisacodyl 5 MG Tablet 10 MG PO (08:45)
[2023-09-23] MEDS: Venlafaxine XR 75 MG Capsule PO (08:46)
[2023-09-23] MEDS: Pantoprazole Sodium 40 MG Tablet PO (08:46)
[2023-09-23] MEDS: Lidocaine 5% Patch 2 PATCH TOPICAL (08:46)
[2023-09-23] MEDS: Senna/Docusate Sodium 1 Tablet 2 TABLET PO ×2 (08:46→20:59)
[2023-09-23] MEDS: lamoTRIgine 100 MG Tablet PO (08:46)
[2023-09-23] MEDS: Cholecalciferol (VIT D3) 25 MCG TABLET (1,000 UNITS) PO (08:47)
[2023-09-23] MEDS: Topiramate 100 MG Tablet PO ×2 (08:47→20:58)
[2023-09-23] MEDS: oxyCODONE 5 MG Tablet PO ×3 (08:52→20:56)
[2023-09-23] MEDS: diazePAM 5 MG Tablet 10 MG PO (12:06)
[2023-09-23] MEDS: Doxepin Hcl 25 MG Capsule PO (20:58)
[2023-09-23] MEDS: Atorvastatin Calcium 20 MG Tablet PO (21:00)
[2023-09-23 22:00] VITALS: RESP 16
[2023-09-24] MEDS: Levothyroxine 88 MCG Tablet PO (06:31)
[2023-09-24] MEDS: Acetaminophen 500 MG Tablet 1000 MG PO ×3 (06:32→22:02)
[2023-09-24] MEDS: Gabapentin 600 MG Tablet PO ×4 (06:32→22:02)
[2023-09-24] MEDS: Baclofen 10 MG Tablet 20 MG PO ×4 (06:34→22:02)
[2023-09-24] MEDS: oxyCODONE 5 MG Tablet PO ×2 (06:38→14:53)
[2023-09-24] MEDS: Lidocaine 5% Patch 2 PATCH TOPICAL (09:38)
[2023-09-24] MEDS: lamoTRIgine 100 MG Tablet PO (09:39)
[2023-09-24] MEDS: AMILORIDE HCL 5 MG TABLET PO (09:39)
[2023-09-24] MEDS: Multivitamins,Therapeutic Tablet 1 TABLET PO (09:39)
[2023-09-24] MEDS: Potassium Chloride Oral Tablet 20 MEQ 60 MEQ PO (09:39)
[2023-09-24] MEDS: Cholecalciferol (VIT D3) 25 MCG TABLET (1,000 UNITS) PO (09:39)
[2023-09-24] MEDS: Triamterene 37.5MG/Hctz 25MG Capsule 1 CAP PO (09:39)
[2023-09-24] MEDS: Aspirin 325 MG Tablet PO (09:39)
[2023-09-24] MEDS: Celecoxib 200 MG Capsule PO (09:39)
[2023-09-24] MEDS: Venlafaxine XR 75 MG Capsule PO (09:39)
[2023-09-24] MEDS: Pantoprazole Sodium 40 MG Tablet PO (09:39)
[2023-09-24] MEDS: Senna/Docusate Sodium 1 Tablet 2 TABLET PO ×2 (09:40→22:01)
[2023-09-24] MEDS: Topiramate 100 MG Tablet PO ×2 (09:40→22:02)
[2023-09-24 10:00] VITALS: RESP 16
[2023-09-24 13:25] VITALS: BP 123/78; PULSE 88; RESP 16; TEMP 36.2; O2SAT 97
--- NOTE | 2023-09-24 13:49 | NURSING ---
Addendum entered by Komal Leon 09/24/23 15:12: OT therapist is karmen Quinn Original Note: This nurse entered pts room this morning, pt was sitting on side of bed, appearing drugged , was delayed in response to questions and movement. Later after PT Alfredo worked with the pt for therapy, he came to this nurse and asked what was wrong with the pt as he reported she appeared out of it and also seemed like she was on something. This was reported to charge nurse Kita. This nurse then went to the room and questioned pt about how she was feeling and her odd behavior. Furthermore, the pt was asked if she had taken something, to which she replied with an adamant no. This nurse explained that the question had to be asked d/t her unusual behavior and struggle to answer questions. She stated I'm just tired, though she also stated that she slept well last night. Additionally, Michelle GRANADOS worked with the pt later and noticed her odd responses and struggle to answer questions appropriately.
--- NOTE | 2023-09-24 15:49 | CASEMGMT ---
Addendum entered by Tory Robbins 09/25/23 16:22: [facility] is only accepting agency. Once pt returned to [facility], JACK spoke with pt to confirm DC as planned and accepting HHC. Pt agreed to DC 09/27 and HHC agency. SW confirmed with Dr on DC as planned as well. DC paperwork sent to [facility] via [employer]. Addendum entered by Tory Robbins 09/25/23 09:41: [facility] accept pt's insurance. JACK sent referral to all of [facility] list (12 agencies) to secure provider. Addendum entered by Tory Robbins 09/24/23 16:15: [facility] does not accept pt's insurance. JACK referred to [facility] via [employer]. Original Note: Social Work Insurance issued LCD 09/26, DC 09/27. JACK spoke with pt and pt agreeable to DC. JACK confirmed FWW and BSC delivered to pt's home and skilled C PT/OT/SN. Pt to purchase half bed rail. Family to transport. SW offered to provide list of skilled C agencies with quality and resource data via [employer]. Pt denied list and agreeable to [facility]. JACK updated [employer] of DC date. JACK phoned [facility] for PT/OT/SN. Plan: DC home alone 09/27, [facility] PT/OT/SN MEME ReyesW
--- NOTE | 2023-09-24 19:24 | DS.PCM_ITS ---
Providers Date of Admission: 09/12/23 Primary Care Physician: LOGAN TODD Reason For Visit: 360 LUMBAR FUSION OF THE L2-S1 Diagnosis Discharge Diagnosis (1) Debility: Status: Acute Code(s): R53.81 - Other malaise (2) S/P lumbar spinal fusion: Status: Acute Code(s): Z98.1 - Arthrodesis status (3) Urinary retention: Status: Acute Code(s): R33.9 - Retention of urine, unspecified (4) Fecal impaction of colon: Status: Acute Code(s): K56.41 - Fecal impaction (5) Ileus: Status: Resolved Code(s): K56.7 - Ileus, unspecified (6) Hypokalemia: Status: Acute Code(s): E87.6 - Hypokalemia (7) Postoperative anemia: Status: Acute Code(s): D64.9 - Anemia, unspecified (8) Osteoarthritis: Status: Acute Code(s): M19.90 - Unspecified osteoarthritis, unspecified site (9) Neuropathic pain: Status: Acute Code(s): M79.2 - Neuralgia and neuritis, unspecified (10) GERD (gastroesophageal reflux disease): Status: Acute Code(s): K21.9 - Gastro-esophageal reflux disease without esophagitis (11) Allergic rhinitis: Status: Acute Code(s): J30.9 - Allergic rhinitis, unspecified (12) Depression: Status: Acute Code(s): F32.A - Depression, unspecified (13) Hyperlipidemia: Status: Acute Code(s): E78.5 - Hyperlipidemia, unspecified (14) Hypothyroidism: Status: Acute Code(s): E03.9 - Hypothyroidism, unspecified (15) Hypertension: Status: Chronic Code(s): I10 - Essential (primary) hypertension (16) Migraine headache: Status: Acute Code(s): G43.909 - Migraine, unspecified, not intractable, without status migrainosus (17) M?ni?re's disease: Status: Chronic Code(s): H81.09 - Meniere's disease, unspecified ear Plan 52 year old female with below past medical history hospitalized for elective L5- S1 fusion 09/03/2023, postoperative course complicated by hypoxia, urinary retention, fecal impaction of colon, ileus, hypokalemia, postoperative anemia, admitted to TCU with debility, here for rehabilitation, strengthening, prior to discharge home alone. * Debility - PT/OT. * Pain - Tylenol 1000mg q8, Oxycodone 20mg bid thru 09/19/2023, Oxycodone 5-10mg q4 prn, Lidoderm 2 patches topical daily. * Bowel - senna/colace 2 tablets bid, Dulcolax 5mg daily. * Adult immunization - Administer pneumonia vaccine, covid vaccine, flu vaccine as appropriate. * DVT prophylaxis - Hold, monitor. * Meniere's disease - Amiloride 5mg daily, Meclizine 25mg tid prn. * CV prophylaxis - Aspirin 325mg daily. * Hyperlipidemia - Atorvastatin 20mg qhs. * Osteoarthritis - Celebrex 200mg daily. * Vitamin D deficiency - D3 25mcg daily. * Allergic rhinitis - Flonase 2 sprays daily prn, Loratadine 10mg daily prn. * Neuropathic pain - Gabapentin 600mg bid. 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 * Hypothyroidism - Levothyroxine 88mcg daily. * Muscle spasm - Robaxin 1000mg tid. * Nutrition - MVI daily. * Nausea - Zofran odt 4mg q8 prn. * GERD - Pantoprazole 40mg daily. * Hypokalemia - KCL 60mg daily. * Migraine - Topamax 100mg bid. * Hypertension - Maxzide 37.5/25mg daily. Medications at Discharge Home Medications celecoxib 200 mg capsule 200 mg PO DAILY PAIN 12/27/16 amiloride 5 mg tablet 1 tab PO DAILY MENERIES 03/27/20 omeprazole 40 mg capsule,delayed release 40 mg PO DAILY PER DR 08/17/21 ondansetron HCl 4 mg tablet 4 mg PO Q8H PRN NAUSEA 08/17/21 topiramate 100 mg tablet 100 mg PO BID MIGRAINES 08/17/21 fluticasone propionate 50 mcg/actuation nasal spray,suspension 2 spray PRN PRN ALLERGIES 10/21/21 venlafaxine 75 mg capsule,extended release 24 hr (Effexor XR) 75 mg PO DAILY PER DR 12/27/21 rosuvastatin 10 mg tablet 10 mg PO DAILY PER DR REAGAN 01/24/23 levothyroxine 88 mcg tablet (Levoxyl) 88 mcg PO DAILY Thyroid 02/20/23 potassium chloride 20 mEq tablet,extended release 60 meq PO DAILY PER 02/20/23 triamterene 37.5 mg-hydrochlorothiazide 25 mg tablet 1 tab PO DAILY PER 02/20/23 cetirizine 10 mg tablet (Zyrtec) 10 mg PO DAILY PRN allergy symptoms 03/08/23 lamotrigine 100 mg tablet 100 mg PO DAILY PER 03/08/23 meclizine 25 mg tablet 25 mg PO TID PRN dizziness #20 tabs 05/14/23 cholecalciferol (vitamin D3) 25 mcg (1,000 unit) capsule (Vitamin D3) 25 mcg PO DAILY Supplement 08/20/23 multivitamin (Daily Multi-Vitamin tablet) 1 tab PO DAILY PER 08/20/23 acetaminophen 500 mg tablet 1,000 mg (2 x 500 mg) PO Q8 Pain #0 tabs 09/12/23 aspirin 325 mg tablet 325 mg PO BREAKFAST Heart #0 tabs 09/12/23 sennosides 8.6 mg-docusate sodium 50 mg tablet (Stool Softener-Stimulant Laxative) 2 tab PO BID Constipation #0 tabs 09/12/23 baclofen 10 mg tablet 20 mg (2 x 10 mg) PO 4X/DAY 30 days #240 tabs 09/24/23 bisacodyl 5 mg tablet,delayed release 10 mg (2 x 5 mg) PO DAILY 30 days #60 tabs 09/24/23 diazepam 5 mg tablet 10 mg (2 x 5 mg) PO 4X/DAY PRN PRN Spasms 7 days #56 tabs 09/24/23 doxepin 25 mg capsule 25 mg PO QHS 30 days #30 caps 09/24/23 gabapentin 600 mg tablet 600 mg PO 4X/DAY 30 days #120 tabs 09/24/23 lidocaine 5 % topical patch 2 patch topical DAILY 30 days #60 ea 09/24/23 oxycodone 5 mg tablet 5 - 10 mg (1 - 2 x 5 mg) PO Q4H PRN PRN Pain Score 4-10 3 days #36 tabs 09/24/23 Hospital Course Operations - (See below.) Procedures None Summary of Care Provided Minutes Spent on Discharge: 35 Hospital Course: 52 year old female with below past medical history hospitalized for elective L5- S1 fusion 09/03/2023, postoperative course complicated by hypoxia, urinary retention, fecal impaction of colon, ileus, hypokalemia, postoperative anemia, admitted to TCU with debility, here for rehabilitation, strengthening, prior to discharge home alone. DC home alone 09/27, [facility] PT/OT/SN. Physical Exam Const alert General Appearance: cooperative HEENT normocephalic Eyes PERRL and EOMs intact bilaterally Neck supple, no JVD and no carotid bruits Resp normal respiratory effort, normal air movement and clear to auscultation bilaterally Cardio regular rate and regular rhythm GI normal to inspection, nondistended, normoactive bowel sounds, non-tender and non-distended Extremity normal capillary refill General Extremity: Negative for edema Skin no rashes or lesions noted General Skin Exam: no breakdown Psych affect normal Appearance: appropriate Weight / BMI Weight Weight: 100.924 kg Body Mass Index (BMI) 37.0 ABG / Lab / Microbiology Data 09/21/23 05:11 09/20/23 05:27 Microbiology: Microbiology 09/24/23 07:17 Nasal Secretion SARS-CoV-2 Antigen (Rapid) - Final 09/20/23 05:15 Nasal Secretion SARS-CoV-2 Antigen (Rapid) - Final 09/17/23 03:57 Nasal Secretion SARS-CoV-2 Antigen (Rapid) - Final 09/13/23 03:31 Nasal Secretion SARS-CoV-2 Antigen (Rapid) - Final D/C Instructions Please Follow Up With: Dr. Ed Lipscomb Meaningful Use Info Meaningful Use Diagnoses (Choose all that apply): None applicable Discharge Plan Admission Admit Date/Time: 09/12/23 18:10 Primary Reason for Your Visit: Debility. Attending Provider: Ky Henderson Chi Primary Care Provider: LOGAN TODD Instructions Additional Instructions / Restrictions: DC home alone 09/27, [facility] PT/OT/SN Discharge Orders/Prescriptions Prescriptions: New bisacodyl 5 mg Tablet,Delayed Release (Dr/Ec) 10 mg PO DAILY 30 Days Qty: 60 0RF gabapentin 600 mg Tablet 600 mg PO 4X/DAY 30 Days Qty: 120 0RF lidocaine 5 % Adhesive Patch,Medicated 2 patch topical DAILY 30 Days Qty: 60 0RF Protocol: *Topical Application Instructions APPLICATION INSTRUCTIONS: Apply over right groin covering part of lower abdomen and inner thigh. oxycodone 5 mg Tablet 5 - 10 mg PO Q4H PRN PRN (Reason: Pain Score 4-10) 3 Days Qty: 36 0RF doxepin 25 mg Capsule 25 mg PO QHS 30 Days Qty: 30 0RF baclofen 10 mg Tablet 20 mg PO 4X/DAY 30 Days Qty: 240 0RF diazepam 5 mg Tablet 10 mg PO 4X/DAY PRN PRN (Reason: Spasms) 7 Days Qty: 56 0RF Continued topiramate 100 mg tablet 100 mg PO BID Patient Comments: TAKE 1 TABLET BY MOUTH TWICE A DAY omeprazole 40 mg capsule,delayed release(DR/EC) 40 mg PO DAILY ondansetron HCl 4 mg tablet 4 mg PO Q8H PRN (Reason: NAUSEA) rosuvastatin 10 mg tablet 10 mg PO DAILY Patient Comments: take 1 tablet by mouth once daily cetirizine [Zyrtec] 10 mg tablet 10 mg PO DAILY PRN (Reason: allergy symptoms) lamotrigine 100 mg tablet 100 mg PO DAILY Patient Comments: take 1 tablet by mouth once daily meclizine 25 mg tablet 25 mg PO TID PRN (Reason: dizziness) Qty: 20 0RF celecoxib 200 MG capsule 200 mg PO DAILY fluticasone propionate 50 mcg/actuation spray,suspension 2 spray NASAL PRN PRN (Reason: ALLERGIES) amiloride 5 mg tablet 1 tab PO DAILY Patient Comments: TAKE 1 TABLET BY MOUTH EVERY DAY venlafaxine [Effexor XR] 75 mg Capsule,Extended Release 24hr 75 mg PO DAILY levothyroxine [Levoxyl] 88 mcg tablet 88 mcg PO DAILY Patient Comments: TAKE 1 TABLET BY MOUTH ONCE DAILY potassium chloride 20 mEq tablet extended release 60 meq PO DAILY Patient Comments: TAKE 3 TABLETS BY MOUTH ONCE DAILY triamterene-hydrochlorothiazid 37.5-25 mg tablet 1 tab PO DAILY Patient Comments: take 1 tablet by mouth once daily multivitamin [Daily Multi-Vitamin] Tablet 1 tab PO DAILY Patient Comments: ASKING AT APPT ON 08/24 ABOUT STOPPING cholecalciferol (vitamin D3) [Vitamin D3] 25 mcg (1,000 unit) capsule 25 mcg PO DAILY acetaminophen 500 mg Tablet 1,000 mg PO Q8 Qty: 0 0RF aspirin 325 mg Tablet 325 mg PO BREAKFAST Qty: 0 0RF sennosides-docusate sodium [Stool Softener-Stimulant Laxat] 8.6-50 mg Tablet 2 tab PO BID Qty: 0 0RF Discontinued gabapentin 600 mg tablet 600 mg PO BID dexamethasone sodium phosphate 5 ML drops 1 drp OP PRN PRN (Reason: MENERIES) bisacodyl 5 mg Tablet,Delayed Release (Dr/Ec) 5 mg PO DAILY Qty: 0 0RF lidocaine 5 % Adhesive Patch,Medicated 2 patch topical DAILY Qty: 0 0RF Protocol: *Topical Application Instructions APPLICATION INSTRUCTIONS: Please apply over right groin covering part of lower abdomen and inner thigh methocarbamol 500 mg Tablet 1,000 mg PO 3XD Qty: 0 0RF oxycodone 5 mg Tablet 5 - 10 mg PO Q4H PRN PRN (Reason: Pain Score 4-10) 2 Days Qty: 8 0RF oxycodone [OxyContin] 10 mg Tablet,Oral Only,Ext.Rel.12 Hr 20 mg PO BID 7 Days Qty: 28 0RF Rx Instructions: Give for 14 doses and then discontinue Referrals / Follow Up: LOGAN TODD [Other] (patient to schedule appointment) Ed Lipscomb MD [Med Staff - Active Staff] - 10/04/23 11:15 am Disposition Disposition (needs filled in before D/C Order can be placed): Home Health Service
[2023-09-24] MEDS: Atorvastatin Calcium 20 MG Tablet PO (22:02)
[2023-09-24] MEDS: Doxepin Hcl 25 MG Capsule PO (22:02)
[2023-09-25] MEDS: oxyCODONE 5 MG Tablet PO ×3 (02:51→21:54)
[2023-09-25 06:10] VITALS: BP 144/122; PULSE 47; RESP 14; O2SAT 98
--- NOTE | 2023-09-25 06:10 | RAD.NOTE ---
Presents in bed, eyes closed, resps even and unlabored. When attempting to wake patient for AM meds patient drowsy, responds to verbal stimuli, unable to state year or month repeating Kaylee, Kaylee, my back, the back of my head hurts Hand grasps equal, pupils equal and reactive, able to smile and stick out tongue on command, able to lift left leg, declines to attempt to lift right leg due to chronic pain.frequently states name when asked questions. Vital signs obtained, oral temp 99.2, BP 144/122, HR 47 via monitor, manual BP 140/100, SPo2 98% on RA. Blood glucose level 103. Stroke alert called, stroke team responds/evaluates patient and instructs to send to ED. Patient transported to ED by this nurse and house superintendent. Bedside report provided in ED by this nurse.
[2023-09-25 06:47] LABS: Bedside Glucose 102 mg/dL (74-106)
--- NOTE | 2023-09-25 07:10 | NURSING ---
Patient rep Jennifer contacted via telephone with update, no answer. Rep Chaitanya contacted via telephone, expressed thanks for update and states will be in to see patient.
[2023-09-25] MEDS: Gabapentin 600 MG Tablet PO ×3 (12:56→21:55)
[2023-09-25 14:00] VITALS: BP 128/72; PULSE 88; RESP 16; TEMP 36.8; O2SAT 97
[2023-09-25] MEDS: Methocarbamol 500 MG Tablet 1000 MG PO (14:33)
[2023-09-25] MEDS: Acetaminophen 500 MG Tablet 1000 MG PO ×2 (14:33→21:59)
[2023-09-25] MEDS: 0.9% Normal Saline (1000mL) 1,000 ML 75 ML IV (15:04)
[2023-09-25 20:21] VITALS: RESP 16
[2023-09-25] MEDS: Topiramate 100 MG Tablet PO (21:59)
[2023-09-25] MEDS: Doxepin Hcl 25 MG Capsule PO (21:59)
[2023-09-25] MEDS: Atorvastatin Calcium 20 MG Tablet PO (22:00)
[2023-09-26] MEDS: oxyCODONE 5 MG Tablet PO ×3 (04:25→14:15)
[2023-09-26] MEDS: 0.9% Normal Saline (1000mL) 1,000 ML 75 ML IV (04:26)
[2023-09-26] MEDS: Gabapentin 600 MG Tablet PO ×4 (05:31→21:52)
[2023-09-26] MEDS: Acetaminophen 500 MG Tablet 1000 MG PO ×3 (05:32→21:52)
[2023-09-26] MEDS: Levothyroxine 88 MCG Tablet PO (05:32)
[2023-09-26 06:30] VITALS: RESP 15
[2023-09-26] MEDS: Cholecalciferol (VIT D3) 25 MCG TABLET (1,000 UNITS) PO (08:23)
[2023-09-26] MEDS: Bisacodyl 5 MG Tablet 10 MG PO (08:23)
[2023-09-26] MEDS: Senna/Docusate Sodium 1 Tablet 2 TABLET PO ×2 (08:23→21:52)
[2023-09-26] MEDS: Venlafaxine XR 75 MG Capsule PO (08:23)
[2023-09-26] MEDS: lamoTRIgine 100 MG Tablet PO (08:23)
[2023-09-26] MEDS: Pantoprazole Sodium 40 MG Tablet PO (08:23)
[2023-09-26] MEDS: Aspirin 325 MG Tablet PO (08:23)
[2023-09-26] MEDS: Potassium Chloride Oral Tablet 20 MEQ 60 MEQ PO (08:24)
[2023-09-26] MEDS: AMILORIDE HCL 5 MG TABLET PO (08:24)
[2023-09-26] MEDS: Multivitamins,Therapeutic Tablet 1 TABLET PO (08:24)
[2023-09-26] MEDS: Celecoxib 200 MG Capsule PO (08:24)
[2023-09-26] MEDS: Topiramate 100 MG Tablet PO ×2 (08:24→21:53)
[2023-09-26] MEDS: Triamterene 37.5MG/Hctz 25MG Capsule 1 CAP PO (08:25)
[2023-09-26] MEDS: Lidocaine 5% Patch 2 PATCH TOPICAL (08:39)
[2023-09-26 14:00] VITALS: BP 134/76; PULSE 94; RESP 14; TEMP 36.3; O2SAT 97
[2023-09-26 19:00] VITALS: BP 126/84; PULSE 97; RESP 14; TEMP 36.5; O2SAT 96
[2023-09-26] MEDS: Doxepin Hcl 25 MG Capsule PO (21:53)
[2023-09-26] MEDS: Atorvastatin Calcium 20 MG Tablet PO (21:54)
[2023-09-27] MEDS: oxyCODONE 5 MG Tablet PO ×2 (00:59→07:56)
[2023-09-27] MEDS: Gabapentin 600 MG Tablet PO (05:41)
[2023-09-27] MEDS: Levothyroxine 88 MCG Tablet PO (05:41)
[2023-09-27] MEDS: Acetaminophen 500 MG Tablet 1000 MG PO (05:41)
[2023-09-27 06:12] LABS: Absolute Lymphocyte Count 1.89 X10^3/uL (0.83-4.51); Basophil# 0.05 X10^3/uL; Basophil% 0.8 % (0-1); Eosinophil# 0.47 X10^3/uL; Eosinophils% 7.7 % (0-5); Hemoglobin 9.2 g/dL (12.0-15.0); Lymphocyte # 1.89 X10^3/ul (0.83-4.51); Mean Corp Hgb Conc 30.7 g/dL (32-36); Mean Corpuscular Hgb 30.5 pg (27.0-32.0); Mean Corpuscular Volume 99.3 fL (81-99); Mean Platelet Vol. 9.6 fl (6.2-12.0); Monocyte# 0.61 X10^3/uL; NRBC Flagged by Analyzer 0 % (0-5); Neutrophil # 3.03 X10^3/uL (2.7-7.7); Neutrophil % 49.8 % (47-70); Platelet Count 327 K/mm3 (150-450); RBC Distribution Width CV 16.4 % (11.6-14.6); RBC Distribution Width SD 59.1 fl (35.1-43.9); Red Blood Count 3.02 M/mm3 (4.2-5.4); White Blood Count 6.1 K/mm3 (4.4-11.0)
[2023-09-27 06:34] LABS: Anion Gap 5 (5-15); BUN 16 mg/dL (7-18); BUN/Creat Ratio 22.4 RATIO (10-20); Calcium,Total 8.5 mg/dL (8.5-10.1); Chloride 111 mmol/L (98-107); Creatinine, Serum 0.72 mg/dL (0.55-1.02); EST Glomerular Filtration Rate 91 mL/min (>60); Est Glom Filt Rate - Afr Amer 110 mL/min (>60); Glucose 88 mg/dL (74-106); Potassium 3.4 mmol/L (3.5-5.1); Sodium Level 140 mmol/L (136-145)
[2023-09-27] MEDS: Multivitamins,Therapeutic Tablet 1 TABLET PO (07:50)
[2023-09-27] MEDS: Potassium Chloride Oral Tablet 20 MEQ 60 MEQ PO (07:50)
[2023-09-27] MEDS: Aspirin 325 MG Tablet PO (07:50)
[2023-09-27] MEDS: AMILORIDE HCL 5 MG TABLET PO (07:51)
[2023-09-27] MEDS: Celecoxib 200 MG Capsule PO (07:52)
[2023-09-27] MEDS: Triamterene 37.5MG/Hctz 25MG Capsule 1 CAP PO (07:52)
[2023-09-27] MEDS: Bisacodyl 5 MG Tablet 10 MG PO (07:52)
[2023-09-27] MEDS: lamoTRIgine 100 MG Tablet PO (07:53)
[2023-09-27] MEDS: Venlafaxine XR 75 MG Capsule PO (07:53)
[2023-09-27] MEDS: Topiramate 100 MG Tablet PO (07:54)
[2023-09-27] MEDS: Senna/Docusate Sodium 1 Tablet 2 TABLET PO (07:54)
[2023-09-27] MEDS: Pantoprazole Sodium 40 MG Tablet PO (07:54)
[2023-09-27] MEDS: Cholecalciferol (VIT D3) 25 MCG TABLET (1,000 UNITS) PO (07:54)
[2023-09-27] MEDS: Lidocaine 5% Patch 2 PATCH TOPICAL (07:55)
== END 2023-09-27 11:00 | disposition home health service (06) | DRG 561 ==
PROVIDERS: Admitting Provider Family Medicine Geriatric Medicine; Visit Provider Family Medicine Geriatric Medicine
DX: Z47.89 Encounter for other orthopedic aftercare (principal); E03.9 Hypothyroidism, unspecified; K56.41 Fecal impaction; I10 Essential (primary) hypertension; F32.A Depression, unspecified; E55.9 Vitamin D deficiency, unspecified; E87.6 Hypokalemia; G43.909 Migraine, unspecified, not intractable, without status migrainosus; J30.9 Allergic rhinitis, unspecified; F17.290 Nicotine dependence, other tobacco product, uncomplicated; K21.9 Gastro-esophageal reflux disease without esophagitis; E78.5 Hyperlipidemia, unspecified; K52.9 Noninfective gastroenteritis and colitis, unspecified; H81.09 Meniere's disease, unspecified ear; Z79.82 Long term (current) use of aspirin; Z98.1 Arthrodesis status; Z79.899 Other long term (current) drug therapy; G47.00 Insomnia, unspecified; Z23 Encounter for immunization
CPT/HCPCS: 36415; 80048; 82962; 85014; 85018; 85025; 87811; 90480; 97110; 97116; 97162; 97166; 97530; 97535; 97802; 99406; J7030; 91322; A4216

== ENCOUNTER 2023-09-16 03:17 | Emergency (ER) | payer MEDICARE, MEDICAID, SELFPAY ==
[2023-09-16 03:17] VITALS: BP 159/103; PULSE 87; RESP 18; TEMP 36.1; O2SAT 99; BMI 37.6
--- OUTSIDE RECORDS SUMMARY | 2023-09-16 03:40 | XMS RPT_ITS | CCD ---
Author Name Unknown Address [address] [place] [address] Organization [facility] Care Team Providers Care Semiconductor Development Technician Name Role Phone KhalifIsaacChevy Melinda Unavailable UnavailYuni [...] (2 sources) DULoxetine; Translations: [Cymbalta] Drug Allergy [facility] Work Phone: Penicillins (antibiotic) (2 sources) Penicillins; Translations: [Penicillins] Drug Allergy [facility] Work Phone: (6 sources) DULoxetine; Translations: [Cymbalta] Drug Allergy [facility] Work Phone: (8 sources) Penicillins; Translations: [Penicillins] Allergy to drug (finding) 9 [facility] Other [place] [facility] (13 sources) DULoxetine; Translations: [DULOXETINE] Drug Allergy 9 Other: See Comments [facility] (13 sources) Lactose; Translations: [LACTOSE] Drug Allergy 8 GI Upset [facility] (11 sources) Penicillins Propensity to adverse reactions 9 Hives [facility] (13 sources) Shellfish; Translations: [SHELLFISH DERIVED] Drug Intolerance 8 Vomiting [facility] Medications Current Medications Medication Drug Class(es) Dates Sig (Normalized) Sig (Original) polyethylene glycol 3350 505339 mg / potassium chloride 2970 mg / sodium bicarbonate 6740 mg / sodium chloride 5860 mg / sodium sulfate 16802 mg powder for oral solution (1 source) [...] Long-term current use of diuretic; Translations: [Other shelter (current) drug therapy] Episodic Other ear and [...] Work Phone: [facility] 03-27-2023 16:01-0400 Body weight 102.92 kg Mike Angulo MD Work Phone: [facility] 03-27-2023 16:01-0400 Diastolic blood pressure 73 mm[Hg] Mike Angulo MD Work Phone: [facility] 03-27-2023 16:01-0400 Heart rate 86 /min Mike Angulo MD Work Phone: [facility] 03-27-2023 16:01-0400 SaO2% (BldA) [Mass fraction] 94 % Mike Angulo MD Work Phone: [facility] 03-27-2023 16:01-0400 Systolic blood pressure 121 mm[Hg] Mike Angulo MD Work Phone: [facility] 11-10-2022 13:30-0400 Body temperature 97 [degF] Travis Frost MD Work Phone: [facility] 11-10-2022 13:30-0400 Diastolic blood pressure 85 mm[Hg] Travis Frost MD Work Phone: [facility] 11-10-2022 13:30-0400 Heart rate 75 /min Travis Frost MD Work Phone: [facility] 11-10-2022 13:30-0400 Respiratory rate 16 /min Travis Frost MD Work Phone: [facility] 11-10-2022 13:30-0400 SaO2% (BldA) [Mass fraction] 95 % Travis Frost MD Work Phone: [facility] 11-10-2022 13:30-0400 Systolic blood pressure 138 mm[Hg] Travis Frost MD Work Phone: [facility] 11-06-2022 13:16-0400 Body height 165.1 cm Travis Frost MD Work Phone: [facility] 11-06-2022 13:16-0400 Body temperature 98.01 [degF] Travis Frost MD Work Phone: [facility] 11-06-2022 13:16-0400 Body weight 108.05 kg Travis Frost MD Work Phone: [facility] 11-06-2022 13:16-0400 Diastolic blood pressure 84 mm[Hg] Travis Frost MD Work Phone: [facility] 11-06-2022 13:16-0400 Heart rate 99 /min Travis Frost MD Work Phone: [facility] 11-06-2022 13:16-0400 SaO2% (BldA) [Mass fraction] 99 % Travis Frost MD Work Phone: [facility] 11-06-2022 13:16-0400 Systolic blood pressure 122 mm[Hg] Travis Frost MD Work Phone: [facility] 05-29-2022 14:18-0400 Body height 165.1 cm Logan Haddad Work Phone: [facility] Work Phone: 05-29-2022 14:18-0400 Body mass index (BMI) [Ratio] 39.44 kg/m2 Logan Haddad Work Phone: [facility] Work Phone: 05-29-2022 14:18-0400 Body surface area Derived from formula 2.13 m2 Logan Haddad Work Phone: [facility] Work Phone: 05-29-2022 14:18-0400 Body weight 107.5 kg Logan Haddad Work Phone: [facility] Work Phone: 05-29-2022 14:18-0400 Diastolic blood pressure 79 mm[Hg] Logan Amarjit Haddad Work Phone: [facility] Work Phone: 05-29-2022 14:18-0400 Systolic blood pressure 129 mm[Hg] Logan Ocasio [place] Work Phone: [facility] Work Phone: 04-06-2022 09:10-0400 Body height 167.6 cm Mike Angulo MD Work Phone: [facility] 04-06-2022 09:10-0400 Body weight 107.96 kg Mike Angulo MD Work Phone: [facility] 04-06-2022 09:10-0400 Diastolic blood pressure 92 mm[Hg] Mike Angulo MD Work Phone: [facility] 04-06-2022 09:10-0400 Heart rate 74 /min Mike Angulo MD Work Phone: [facility] 04-06-2022 09:10-0400 Respiratory rate 16 /min Mike Angulo MD Work Phone: [facility] 04-06-2022 09:10-0400 SaO2% (BldA) [Mass fraction] 95 % Mike Angulo MD Work Phone: [facility] 04-06-2022 09:10-0400 Systolic blood pressure 138 mm[Hg] Mike Angulo MD Work Phone: [facility] 02-28-2021 10:29-0400 Body height 165.1 cm Logan Haddad Work Phone: [facility] Work Phone: 02-28-2021 10:29-0400 Body mass index (BMI) [Ratio] 35.78 kg/m2 Logan Ocasio Garlik Work Phone: [facility] Work Phone: 02-28-2021 10:29-0400 Body surface area Derived from formula 2.04 m2 Logan Ocasio Boo Work Phone: [facility] Work Phone: 02-28-2021 10:29-0400 Body weight 97.52 kg Logan Ocasio Garlik Work Phone: [facility] Work Phone: 02-28-2021 10:29-0400 Diastolic blood pressure 84 mm[Hg] Logan Ocasio Garlik Work Phone: [facility] Work Phone: 02-28-2021 10:29-0400 Systolic blood pressure 124 mm[Hg] Logan Ocasio Garlik Work Phone: [facility] Work Phone: 02-24-2020 11:11-0400 BMI (Body Mass Index) 33.95 kg/m2 Melinda Son [facility] Work Phone: 02-24-2020 11:11-0400 Body weight 92.53 kg Melinda Son [facility] Work Phone: 02-24-2020 11:11-0400 BP Diastolic 84 mm[Hg] Melinda Son [facility] Work Phone: 02-24-2020 11:11-0400 BP Systolic 128 mm[Hg] [facility] Work Phone: 02-24-2020 11:11-0400 BSA (Body Surface Area) 1.99 m2 [facility] Work Phone: 02-24-2020 11:11-0400 Height 165.1 cm [facility] Work Phone: Encounters Encounter Date Encounter Type Care Provider Facility Start: 08-31-2023 End: 08-31-2023 ambulatory PERCY WABEKE Facility:[facility] Start: 08-17-2023 End: 08-17-2023 [facility] Start: 07-27-2023 End: 07-27-2023 [facility] Start: 07-18-2023 End: 07-18-2023 ambulatory PERCY MDBEKE Facility:[facility] Start: 07-13-2023 End: 07-13-2023 ambulatory PERCY WABEKE Facility:[facility] Start: 06-29-2023 End: 06-29-2023 [facility] Start: 06-15-2023 End: 06-15-2023 [facility] Start: 06-01-2023 End: 06-01-2023 [facility] Start: 05-11-2023 End: 05-11-2023 ambulatory PERCY MDBEKE Facility:[facility] Start: 04-27-2023 End: 04-27-2023 [facility] Start: 04-13-2023 End: 04-13-2023 [facility] Start: 03-27-2023 End: 03-28-2023 ambulatory MIKE ANGULO Facility:[facility] Start: 03-27-2023 End: 03-28-2023 Office outpatient visit [...] Colonoscopy COLONOSCOPY [facility] Start: 11-10-2032 COLORECTAL CANCER SCREENING COLORECTAL CANCER SCREENING [facility] Start: 02-07-2025 DIABETES SCREEN DIABETES SCREEN [facility] Start: 03-27-2024 BP CONTROLLED (<130/80) BP CONTROLLED (<130/80) [facility] in Start: 11-11-2023 Colonoscopy COLONOSCOPY [facility] Start: 11-11-2023 COLORECTAL CANCER SCREENING COLORECTAL CANCER SCREENING [facility] Start: 10-09-2023 Mammography MAMMOGRAM [facility] Start: 06-11-2023 Patient encounter procedure ANNUAL, Provider: Yuni Anthony, Status: Pen, Time: 3:00 PM [facility] Work Phone: Start: 04-13-2023 Influenza vaccination INFLUENZA (#1) [facility] Start: 07-12-2022 LIPID SCREEN LIPID SCREEN [facility] Start: 04-13-2022 Influenza vaccination INFLUENZA (#1) [facility] Start: 10-28-2021 COVID-19 VACCINE (4 - Booster for Moderna series) COVID-19 VACCINE (4 - Booster for Moderna series) [facility] Start: 08-25-2021 COVID-19 VACCINE (4 - Booster for Moderna series) COVID-19 VACCINE (4 - Booster for Moderna series) [facility] Start: 08-25-2021 COVID-19 VACCINE (4 - Moderna series) COVID-19 VACCINE (4 - Moderna series) [facility] Start: 2020 SHINGRIX VACCINE (1 of 2) SHINGRIX VACCINE (1 of 2) [facility] Start: 11-08-2018 PNEUMOCOCCAL (2 - PCV) PNEUMOCOCCAL (2 - PCV) [facility] Start: 10-23-2018 ANNUAL PCP TEAM CHRONIC DISEASE VISIT ANNUAL PCP TEAM CHRONIC DISEASE VISIT [facility] Start: 10-12-2015 COLOGUARD (FIT-DNA) COLOGUARD (FIT-DNA) [facility] Start: 10-12-2015 Colonoscopy COLONOSCOPY [facility] Start: 10-12-2015 COLORECTAL CANCER SCREENING COLORECTAL CANCER SCREENING [facility] Start: 10-12-[address] COLONOGRAPHY [facility] Start: 10-12-2015 FECAL OCCULT BLOOD FECAL OCCULT BLOOD [facility] Start: 10-12-2015 SIGMOIDOSCOPY SIGMOIDOSCOPY [facility] Start: 2010 Mammography MAMMOGRAM [facility] Start: 2000 HPV TESTING HPV TESTING [facility] Start: 10-12-1991 PAP TESTING PAP TESTING [facility] Start: 1989 Urine microalbumin profile DTAP,TDAP,TD (1 - Tdap) [facility] Start: 1988 ANNUAL PCP TEAM CHRONIC DISEASE VISIT ANNUAL PCP TEAM CHRONIC DISEASE VISIT [facility] Start: 1988 BP CONTROLLED (<130/80) BP CONTROLLED (<130/80) [facility] Start: 1988 HEPATITIS C SCREENING HEPATITIS C SCREENING [facility] Start: 1988 HIV SCREENING HIV SCREENING [facility] Start: 1970 HEPATITIS B (1 of 3 - 3-dose series) HEPATITIS B (1 of 3 - 3-dose series) [facility] End: 11-07-2023 COLONOSCOPY DIAGNOSTIC COLONOSCOPY DIAGNOSTIC Endoscopy Routine Encounter for screening for malignant neoplasm of colon 1 Occurrences starting 11/06/2022 until 11/07/2023 [facility] Work Phone: Immunizations Immunization Date Immunization Notes Care Provider Mariya eddy 11-08-2017 pneumococcal polysaccharide vaccine, 23 valent Monica Mortensen MD Work Phone: [facility] Payers Date Payer Category Payer Medicare [id number] 2018 Private Health Insurance [id number] 2015 Medicaid [id number] 2015 Medicaid [id number] 1970 Unknown [id number] 1970 Unknown [id number] 1970 Unknown [id number] Unknown Unknown [id number] Social History Date Type Detail Facility Start: 10-22-2017 End: 12-15-2022 Current every day smoker Current every day smoker [facility] Start: 10-22-2017 [facility] Work Phone: End: 08-13-2021 History of tobacco use Cigarette Smoker [facility] Work Phone: Start: 10-22-2017 End: 11-06-2022 Tobacco use and exposure Smokeless tobacco non-user [facility] Work Phone: Start: 02-07-2022 Alcohol intake Current drinke r of alcohol (finding) [facility] Start: 10-22-2017 End: 11-06-2022 Tobacco Comment currently 1 pack every 3 days; patient cutting back for surgery - not ready to quit [facility] Start: 1970 Sex Assigned At Female C [facility] Start: 02-26-2022 End: 05-12-2022 Exposure to SARS-CoV-2 (event) Not sure [facility] Start: 11-06-2022 Tobacco smoking stat us [facility]IS Ex-smoker [facility] End: 08-13-2021 History of tobacco use Current smoker [facility] Start: 11-06-2022 End: 11-22-2022 Alcohol intake Ex-drinker (finding) [facility] Start: 11-06-2022 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 [facility] Start: 11-22-2022 End: 12-15-2022 Tobacco use panel [facility] Adult Depression Screening Assessment 3 [facility] Start: 09-29-2020 Gender identity Identifies as female gender (finding) [facility] Start: 09-29-2020 Sexual orientation Heterosexual (darnell putnam) [facility] NEGATED: Highlighted row - - [facility] Work Phone: Medical Equipment Procedure Code Equipment Code Equipment Origin al Text Equipment Identifier Dates Head V40 36mm +2 .5mm Offset Taper Biolox Delta Femoral Hip - [id number] Start: 11-06-2017 Screw Trident Secur-Fit Torx 6.5mm Titanium 20mm Bone Sterile Acetabular - [id number] Start: 11-06-2017 Functional Status Date Assessment Result Facility NEGATED: Highlighted row Functional performance Functional status health issues are not documented Disease [facility] Work Phone: Mental Status Date Assessment Result Facility NEGATED: Highlighted row Cognitive function [Interpretation] Cognitive status health issues are not documented Disease [facility] Work Phone: Clinical Notes 11-06-2017 to 08-31-2023 Mike Angulo MD - 03/27/2023 4:13 PM EDTBMike toro MD - 03/27/2023 4:10 PM EDTTelephone Encounter - Lisandra Michael RN - 01/25/2023 10:06 AM Go Frost MD - 11/10/2022 1:45 PM EDT Note Date & Type Note Facility 08-31-2023 Note HNO ID: [id number] Author: PERCY VARGAS LISW Service: ? 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 WILLOW Adamson [facility] 08-17-2023 Note HNO ID: [id number] Author: PERCY VARGAS LISW Service: ? 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 WILLOW Adamson [facility] 07-27-2023 Note HNO ID: [id number] Author: Percy Vargas LISW Service: ? 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 WILLOW Adamson [facility] 07-18-2023 Note HNO ID: [id number] Author: Percy Vargas LISW Service: ? 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 WILLOW Adamson [facility] 07-13-2023 Note HNO ID: [id number] Author: Percy Vargas LISW Service: ? Author Type: Journeyman Pipefitter Type: Progress Notes Filed: 07/13/2023 10:33 AM Note Text: Patient had to cancel appointment due to illness and is rescheduled for next week-no charge [facility] 06-29-2023 Note HNO ID: [id number] Author: Percy Vargas LISW Service: ? 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 WILLOW Adamson [facility] 06-15-2023 Note HNO ID: [id number] Author: Percy Vargas LISW Service: ? 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 WILLOW Adamson [facility] 06-01-2023 Note HNO ID: [id number] Author: Percy Vargas LISW Service: ? 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 WILLOW Adamson [facility] 05-11-2023 Note HNO ID: [id number] Author: Percy Vargas LISW Service: ? 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 WILLOW Adamson [facility] 04-27-2023 Note HNO ID: [id number] Author: Percy Vargas LISW Service: ? Author Type: Journeyman Pipefitter Type: Progress Notes Filed: 04/27/2023 2:02 PM Note Text: GENERAL PSYCHOLOGY Session #: 53 (session count starts after [facility] visit) Visit Type:The patient consented to a virtual visit and their location was confirmed. SUBJECTIVE: I have communicated my name and active licensure. The patient's identity and physical location were verified at the time of this visit. 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 WILLOW Adamson [facility] 04-17-2023 Note HNO ID: [id number] Author: Percy Vargas LISW Service: ? 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 WILLOW Adamson [facility] 03-27-2023 Note HNO ID: [id number] Author: Mike Angulo MD Service: ? Author [...] least 6-8, 8 oz glasses of water/d [facility] 03-27-2023 Note HNO ID: [id number] Author: Mike Angulo MD Service: ? Author [...] by mouth once (more content not included)... [facility] 03-27-2023 History of Presen t illness Narrative [...] the date of the service which included [id number] patient care, completing clinical documentation, obtaining and/or reviewing separately obtained history, performing a medically appropriate examination, counseling and educating the patient/family/caregiver, and ordering medications, tests, or procedures Mike Angulo MD documented in this encounter [facility] 03-16-2023 Note HNO ID: [id number] Author: Percy Vargas LISW Service: ? 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 WILLOW Adamson [facility] 03-09-2023 Note HNO ID: [id number] Author: Percy Vargas LISW Service: ? Author Type: Journeyman Pipefitter Type: Progress Notes Filed: 03/09/2023 8:03 AM Note Text: Appointment cancelled-no charge [facility] 02-23-2023 Note HNO ID: [id number] Author: ZAHCARY Adamson Service: ? 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 WILLOW Adamson [facility] 02-02-2023 Note HNO ID: [id number] Author: ZACHARY Adamson Service: ? 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 WILLOW Adamson [facility] 01-25-2023 Miscellaneous Notes Formattin g of this [...] this encounter [facility] 01-19-2023 Note HNO ID: [id number] Author: ZACHARY Adamson Service: ? Author Type: Journeyman Pipefitter Type: Progress Notes Filed: 01/19/2023 11:22 AM Note Text: Patient was a no show for appointment [facility] 01-05-2023 Note HNO ID: [id number] Author: ZACHARY Adamson Service: ? 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 WILLOW Adamson [facility] 12-15-2022 Note HNO ID: [id number] Author: ZACHARY Adamson Service: ? 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 WILLOW Adamson [facility] 12-01-2022 Note HNO ID: [id number] Author: ZACHARY Adamson Service: ? 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 WILLOW Adamson [facility] 11-22-2022 Miscellaneous Notes Formattin g of this note might be different from the original. lark message sent to patient with Related Content Database (RCDb)s message. Health maintenance and surgical history updated. [...] for colonoscopy preferred by Dr. Frost in [place] on 11/10/2022. Patient stated they have been out of town and was not able to call sooner for an update. Patient asking if a follow up is needed. Please advise Thank you Alla Deng Kit Planner 11/10/2022 COLON MARIN documented in this encounter [facility] 11-17-2022 Note HNO ID: [id number] Author: ZACHARY Adamson Service: ? Author Type: Journeyman Pipefitter Type: Progress Notes Filed: 11/17/2022 4:36 PM Note Text: GENERAL PSYCHOLOGY Session #: 44 (session count starts after PSYL NEW EVAL visit) SUBJECTIVE: I have communicated my name and active licensure. The patient's identity and physical location were verified at the time of this visit. 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 WILLOW Adamson [facility] 11-10-2022 History and physical note Images from [...] entered by the nurse and reviewed by sc Nursing Notes: Kelly Chaves LPN 11/06/2022 1:39 [...] this encounter [facility] 11-06-2022 Note HNO ID: [id number] Author: Travis Frost MD Service: ? Author [...] Bruno denies bright red blood per rectum. Bruon denies hemorrhoids. The patient notes no history [...] Mother Heart disea (more content not included)... [facility] 11-06-2022 History of Presen t illness Narrative [...] entered by the nurse and reviewed by sc Nursing Notes: Kelly Chaves LPN 11/06/2022 1:39 [...] this encounter [facility] 11-06-2022 Nurse Note REVIEW OF SYSTEMS: General: [...] this encounter [facility] 11-06-2022 Instructions Travis Frost MD - 11/06/2022 [...] If you do not have a responsible crew car driver (family member or friend) with you [...] this encounter [facility] 11-03-2022 Miscellaneous Notes Formattin g of this note might be different from the original. Called patient to schedule colonoscopy, she has a new GI Doctor. Rhina Tee MA documented in this encounter [facility] 10-13-2022 Note HNO ID: [id number] Author: ZACHARY Adamson Service: ? Author Type: Journeyman Pipefitter Type: Progress Notes Filed: 10/13/2022 2:57 PM Note Text: GENERAL PSYCHOLOGY Session #: 43 (session count starts after PSYL NEW EVAL visit) SUBJECTIVE: This Team Access Model visit is a virtual encounter. It required patient-provider interaction for the medical decision making as documented below. Patient gave consent for virtual visit Confirmed patient is in the [facility] and this provider is in the [facility]. 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 WILLOW Adamson [facility] 10-02-2022 Miscellaneous Notes Addended by: MIKE ANGULO on: 10/02/2022 06:15 PM Modules accepted: Level of Service documented in this encounter [facility] 09-29-2022 Note HNO ID: [id number] Author: ZACHARY Adamson Service: ? Author Type: Journeyman Pipefitter Type: Progress Notes Filed: 09/29/2022 2:43 PM Note Text: GENERAL PSYCHOLOGY Session #: 42 (session count starts after PSYL NEW EVAL visit) SUBJECTIVE: This Team Access Model visit is a virtual encounter. It required patient-provider interaction for the medical decision making as documented below. Patient gave consent for virtual visit Confirmed patient is in the [facility] and this provider is in the [facility]. 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 WILLOW Adamson [facility] 09-15-2022 Note HNO ID: [id number] Author: ZACHARY Adamson Service: ? Author Type: Journeyman Pipefitter Type: Progress Notes Filed: 09/15/2022 3:59 PM Note Text: GENERAL PSYCHOLOGY Session #: 41 (session count starts after PSYL NEW EVAL visit) SUBJECTIVE: This Team Access Model visit is a virtual encounter. It required patient-provider interaction for the medical decision making as documented below. Patient gave consent for virtual visit Confirmed patient is in the [facility] and this provider is in the [facility]. PATIENT DATA: Generalized Anxiety Disorder Scale [...] Therapy to self monitoring PROGRESS TO DATE: Custodial Progress: Progress Short Term Condition: Progress GOALS/OBJECTIVES/INTERVENTIONS : Patient's primary goal for treatment is to reduce her symptoms of depression Approximately 45 minutes were spent with the patient doing therapy. WILLOW Adamson [facility] 09-14-2022 Note HNO ID: [id number] Author: Mike Angulo MD Service: ? Author [...] person, place an (more content not included)... [facility] 09-14-2022 Instructions Mike Angulo MD - 09/14/2022 4:37 PM EST Increasing Lamictal 50 mg for the first week Then 100 mg every night documented in this encounter [facility] 09-14-2022 History of Presen t illness Narrative [...] this encounter [facility] 06-09-2022 Miscellaneous Notes Formattin g of this note might be different from the original. This refill request is already pended to provider in previous encounter. CHANTAL Decker RN June 09, 2022 9:01 AM documented in this encounter [facility] 06-08-2022 Miscellaneous Notes Formattin g of this note is different from the original. Provider: Dr. Angulo patient requesting refill via [facility] . Please E-Scribe Last OV: 04-06-22 with [...] this encounter [facility] 04-06-2022 History of Presen t illness Narrative [...] the date of the service which included [id number] patient care, completing clinical documentation, obtaining and/or reviewing separately obtained history, performing a medically appropriate examination, counseling and educating the patient/family/caregiver, and ordering medications, tests, or procedures Mike Angulo MD documented in this encounter [facility] 02-07-2022 Instructions Cirilo Gotti - 02/07/2022 12:14 PM EDT 1. Increase Topamax dosage for migraines. Hold until completing oral steroids. 2. Order for blood work placed 3. Establish with migraine neurologist. . documented in this encounter [facility] 02-07-2022 History of Presen t illness Narrative Staff Physician Comments: I testify that I personally interviewed and examined the patient. I confirm the below exam findings, assessment and plan were my own and resident/CAPSULE FILLING MACHINE OPERATOR/scribe was acting as SCRIBE. Monica Mortensen MD, FACS Section Head, Otology/Neurotology/Skull Base Surgery Field Manager, Cochlear Implant Program Head and Neck [place] [facility] History of Present Illness Ms. 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 [facility] Work Phone: 01-12-2020 History of Presen [...] her right foot due to a fracture. [facility] Work Phone: documented as of this encounter (statuses as of 04/03/2022) [facility]2018 History of Past illness Narrative* Problem Noted Date Resolved Date S/P total hip arthroplasty 11/06/201711/08 documented as of this encounter (statuses as of 05/14/2022) [facility] History of Past illness Narrative* Problem Noted Date Resolved Date S/P total hip arthroplasty 11/06/201711/08 documented as of this encounter (statuses as of 06/11/2022) [place] [address]-27-2018 History of Past illness Narrative* Problem Noted Date Resolved Date S/P total hip arthroplasty 11/06/201711/08 documented as of this encounter (statuses as of 06/11/2022) [address]27-2018 History of Past illness Narrative* Problem Noted Date Resolved Date S/P total hip arthroplasty 11/06/201711/08 documented as of this encounter (statuses as of 10/03/2022) [address]27-2018 History of Past illness Narrative* Problem Noted Date Resolved Date S/P total hip arthroplasty 11/06/201711/08 documented as of this encounter (statuses as of 11/03/2022) [address]27-2018 History of Past illness Narrative* Problem Noted Date Resolved Date S/P total hip arthroplasty 11/06/201711/08 documented as of this encounter (statuses as of 11/06/2022) [address]27-2018 History of Past illness Narrative* Problem Noted Date Resolved Date S/P total hip arthroplasty 11/06/201711/08 documented as of this encounter (statuses as of 11/11/2022) [address]2018 History of Past illness Narrative* Problem Noted Date Resolved Date S/P total hip arthroplasty 11/06/201711/08 documented as of this encounter (statuses as of 11/23/2022) [address]2018 History of Past illness Narrative* Problem Noted Date Resolved Date S/P total hip arthroplasty 11/06/201711/08 documented as of this encounter (statuses as of 01/25/2023) [address]2018 History of Past illness Narrative* Problem Noted Date Diagnosed Date Resolved Date S/P total hip arthroplasty 11/06/2017 0 11/08/2017 documented as of this encounter (statuses as of 03/28/2023) [facility] Diagnosis Meniere's disease of right ear- Primary Meniere's disease, unspecified Vestibular migraine Perforation of right tympanic membrane Perforation of tympanic membrane, unspecified Imbalance Abnormality of gait [facility] current use of diuretic [facility] Vestibular migraine- Primary Syncope and collapse [facility] Vestibular migraine- Primary [facility] Diagnosis Encounter for screening for malignant neoplasm of colon- Primary Special screening for malignant neoplasms, colon [facility] Diagnosis Encounter for screening colonoscopy- Primary Special screening for malignant neoplasms, colon Encounter for screening for malignant neoplasm of colon Special screening for malignant neoplasms, colon documented [facility] Diagnosis Abdominal migraine, intractable- Primary Variants of migraine, not elsewhere classified, with intractable migraine, so stated, without mention of status migrainosus documented in this encounter [facility] for referral (narrative)* Outpatient Procedure (Routine) - Closed Specialty Diagnoses / Procedures Referred By America t Referred To Contact [facility] Diagnoses Vestibular migraine Syncope and collapse Procedures EPIL EEG ROUTINE ELECTROENCEPHALOGRAM REC COMA/SLEEP ONLY Mike Angulo MD [address] [place] [address] [facility] [place] [address] [place] [address] Referral ID Status Reason Start Date Expiration Date V isits Requested Visits Authorized [id number] Closed Auto-Generate d Referral 04/06/2022 04/06/2023 1 1 [facility] for referral (narrative)* Outpatient Procedure (Routine) - Authorized Specialty Diagnoses / Procedures Referred By America watson Referred To Contact Diagnoses Encounter for screening for malignant neoplasm of colon Procedures COLONOSCOPY DIAGNOSTIC COLONOSCOPY FLX DX W/COLLJ SPEC WHEN PFRMD Travis Frost MD [address] [place] [address] [facility] [address] [place] [address] Referral ID Status Reason Start Date Expiration Date Visits Requested Visits Authorized [id number] Authorized Auto-Generat ed Referral 11/06/2022 11/07/2023 1 1 [facility] for referral (narrative)* Outpatient Procedure (Routine) - Closed Specialty Diagnoses / Procedures Referred By America t Referred To Contact Diagnoses Encounter for screening for malignant neoplasm of colon Procedures COLONOSCOPY DIAGNOSTIC COLONOSCOPY FLX DX W/COLLJ SPEC WHEN Travis Isaac MD [address] [place] [address] [facility] [address] [place] [address] Referral ID Status Reason Start Date Expiration Date V isits Requested Visits Authorized [id number] Closed Auto-Generate d Referral 11/06/2022 11/07/2023 1 1 [facility] for visit Narrative* Outpatient Procedure (Routine) - Closed Specialty Diagnoses / Procedures Referred By America watson Referred To Contact Diagnoses Encounter for screening for malignant neoplasm of colon Procedures COLONOSCOPY DIAGNOSTIC COLONOSCOPY FLX DX W/COLLJ SPEC WHEN Travis Isaac MD [address] [place] [address] [facility] [address] [place] [address] Referral ID Status Reason Start Date Expiration Date V isits Requested Visits Authorized [id number] Closed Auto-Generate d Referral 11/06/2022 11/07/2023 1 1 [facility] Family History No Family History Records Found [...] FoundDocuments on File Type Date Recorded Patient Human Resources Office Assistant Expl anation Advance Directive(s) 11/06/2017 6:32 AM Documents on File Type Date Recorded Patient Human Resources Office Assistant Expl anation Advance Directive(s) 11/06/2017 6:32 AM Chief Complaint yearly, no class 1 owner operator. cbyearly, no class 1 owner operator. cbyearly, no class 1 owner operator. cb Reason for Referral Specialty Diagnoses / Procedures Referred By America t Referred To Contact Neurology Diagnoses Meniere's disease of right ear Vestibular migraine Procedures CONSULT TO NEUROLOGY OFFICE/OUTPATIENT PENDING SALE TO [facility] MDM 60-74 MINUTES Monica Mortensen MD [address] [place] [address] Referral ID Status Reason Start Date Expiration Date Visits Requested Visits Authorized [id number] Authorized PCP Requested Referral 02/07/2022 02/07/2023 1 [...] DATE CREATED AUTHOR AUTHOR'S ORGANIZ ATION 03/25/2021 [facility] DATE CREATED AUTHOR AUTHOR'S ORGANIZ ATION 09/22/2021 [facility] DATE CREATED AUTHOR AUTHOR'S ORGANIZ ATION 06/06/2022 [facility] DATE CREATED AUTHOR AUTHOR'S ORGANIZ ATION 10/15/2022 [facility] DATE CREATED AUTHOR AUTHOR'S ORGANIZ ATION 11/15/2022 [facility] DATE CREATED AUTHOR AUTHOR'S ORGANIZ ATION 09/01/2023 [facility] Source Comments (unrecognize d section and content) In the event this informatio n is protected by the Federal Confidentiality of Alcohol and Drug Abuse Patient Records regulations: The Federal rules restrict any use of the information to criminally investigate or prosecute any alcohol or drug abuse patient.[facility] Inc[facility] the event this information is protected by the Federal Confidentiality of Alcohol and Drug Abuse Patient Records regulations: The Federal rules restrict any use of the information to criminally investigate or prosecute any alcohol or drug abuse patient.[facility] Inc[facility] the event this information is protected by the Federal Confidentiality of Alcohol and Drug Abuse Patient Records regulations: The Federal rules restrict any use of the information to criminally investigate or prosecute any alcohol or drug abuse patient.[facility] Inc[facility] the event this information is protected by the Federal Confidentiality of Alcohol and Drug Abuse Patient Records regulations: The Federal rules restrict any use of the information to criminally investigate or prosecute any alcohol or drug abuse patient.[facility] the event this information is protected by the Federal Confidentiality of Alcohol and Drug Abuse Patient Records regulations: The Federal rules restrict any use of the information to criminally investigate or prosecute any alcohol or drug abuse patient.[facility] Inc[facility] the event this information is protected by the Federal Confidentiality of Alcohol and Drug Abuse Patient Records regulations: The Federal rules restrict any use of the information to criminally investigate or prosecute any alcohol or drug abuse patient.[facility] Inc[facility] the event this information is protected by the Federal Confidentiality of Alcohol and Drug Abuse Patient Records regulations: The Federal rules restrict any use of the information to criminally investigate or prosecute any alcohol or drug abuse patient.[facility] Inc[facility] the event this information is protected by the Federal Confidentiality of Alcohol and Drug Abuse Patient Records regulations: The Federal rules restrict any use of the information to criminally investigate or prosecute any alcohol or drug abuse patient.[facility] Inc[facility] the event this information is protected by the Federal Confidentiality of Alcohol and Drug Abuse Patient Records regulations: The Federal rules restrict any use of the information to criminally investigate or prosecute any alcohol or drug abuse patient.[facility] Inc[facility] the event this information is protected by the Federal Confidentiality of Alcohol and Drug Abuse Patient Records regulations: The Federal rules restrict any use of the information to criminally investigate or prosecute any alcohol or drug abuse patient.[facility] Inc[facility] the event this information is protected by the Federal Confidentiality of Alcohol and Drug Abuse Patient Records regulations: The Federal rules restrict any use of the information to criminally investigate or prosecute any alcohol or drug abuse patient.[facility] Reason for Visit (unrecogniz ed section and content) Reason Comments Consult Menieres disease of right ear, vestibular migraines Specialty Diagnoses / Procedures Referred By Contshantell t Referred To Contact Neurology Diagnoses Meniere's disease of right ear Vestibular migraine Procedures CONSULT TO NEUROLOGY OFFICE/OUTPATIENT [facility] 60-74 MINUTES Monica Mortensen MD [address] [place] [address] Referral ID Status Reason Start Date Expiration Date V isits Requested Visits Authorized [id number] Closed PCP Requested Referral 02/07/2022 02/07/2023 1 1 Reason Comments Refill Request Reason Onset Date Comments Refill Request 06/08/2022 Reason Comments Follow Up Reason Comments mv november recall Reason Comments Consult colonoscopy Reason Comments 11/10/2022 COLON MARIN Reason Onset Date Comments Refill Request 01/25/2023 Care Teams (unrecognized sec tion and content) Semiconductor Development Technician Relationship Specialty [place] [address] [place] [address] PCP - General 06/04/09 Semiconductor Development Technician Relationship Specialty [place] [address] [place] [address] PCP - General 06/04/09 Semiconductor Development Technician Relationship Specialty [place] [address] [place] [address] PCP - General 06/04/09 Semiconductor Development Technician Relationship Specialty [place] [address] [place] [address] PCP - General 06/04/09 Semiconductor Development Technician Relationship Specialty [place] [address] [place] [address] PCP - General 06/04/09 Semiconductor Development Technician Relationship Specialty [place] [address] [place] [address] PCP - General 06/04/09 Semiconductor Development Technician Relationship Specialty [place] [address] [place] [address] PCP - General 06/04/09 Semiconductor Development Technician Relationship Specialty [place] [id number] [place] [address] PCP - General 06/04/09 Semiconductor Development Technician Relationship Specialty [place] [id number] [place] [address] PCP - General 06/04/09 FOR RECORDS PERTAINING [...] BE BASED ON THE PRIMARY CLINICAL RECORDS. [facility]. provides no warranty or guarantee of the accuracy or completeness of information in this document.
[2023-09-16 03:46] LABS: Absolute Lymphocyte Count 2.01 X10^3/uL (0.83-4.51); Absolute Neutrophil Count 6.2 X10^3/uL (2.0-7.7); Basophil# 0.07 X10^3/uL; Basophil% 0.7 % (0-1); Eosinophil# 0.28 X10^3/uL; Hematocrit 28.7 % (37-47); Hemoglobin 9.1 g/dL (12.0-15.0); Lymphocyte # 2.01 X10^3/ul (0.83-4.51); Lymphocyte % 21.3 % (19-41); Mean Corp Hgb Conc 31.7 g/dL (32-36); Mean Corpuscular Hgb 31.2 pg (27.0-32.0); Mean Corpuscular Volume 98.3 fL (81-99); Mean Platelet Vol. 9.1 fl (6.2-12.0); Monocyte# 0.73 X10^3/uL; Monocyte% 7.7 % (0-10); NRBC Flagged by Analyzer 0.3 % (0-5); Neutrophil % 65.7 % (47-70); Platelet Count 493 K/mm3 (150-450); RBC Distribution Width CV 17.6 % (11.6-14.6); RBC Distribution Width SD 58.8 fl (35.1-43.9); Red Blood Count 2.92 M/mm3 (4.2-5.4); White Blood Count 9.4 K/mm3 (4.4-11.0)
[2023-09-16 03:54] LABS: Mucous, Urine 0 SEEN /hpf (<or=2+); Red Blood Cells-Urine 0 SEEN /hpf (0-5)
[2023-09-16 03:55] LABS: Color, Urine Yellow (Yellow); Glucose, Dipstick Normal (Normal); Ketone-Dipstick Negative (Negative); Leukocyte Esterase-Dipstick Negative /ul (Negative); Nitrite-Dipstick Negative (Negative); Occult Blood-Urine Negative /ul (Negative); Protein-Dipstick 15 mg/dl (Negative); Urine Bilirubin Dipstick Negative (Negative); Urine Clarity Clear (Clear); Urine Urobilinogen Normal (Normal); Urine pH 6.5 (5.0 - 8.0)
[2023-09-16 04:03] LABS: ALB/GLOB Ratio 0.8 RATIO (0.9-2.4); AST(SGOT) 33 U/L (15-37); Alanine Aminotransfer ALT/SGPT 51 U/L (13-56); Albumin, Serum 2.9 g/dL (3.2-5.0); Alkaline Phosphatase 170 U/L (45-117); Anion Gap 4 (5-15); BUN 20 mg/dL (7-18); BUN/Creat Ratio 26.5 RATIO (10-20); Calcium,Total 8.5 mg/dL (8.5-10.1); Chloride 106 mmol/L (98-107); Creatinine, Serum 0.76 mg/dL (0.55-1.02); EST Glomerular Filtration Rate 85 mL/min (>60); Est Glom Filt Rate - Afr Amer 103 mL/min (>60); Globulin 3.5 g/dL (2.2-4.2); Glucose 124 mg/dL (74-106); Lipase 46 U/L (13-75); Potassium 3.7 mmol/L (3.5-5.1); Protein, Total 6.4 g/dL (6.4-8.2); Sodium Level 137 mmol/L (136-145)
[2023-09-16 04:14] LABS: Bacteria 1+ /hpf (None Seen); Squamous Epithelial Cells - UA 0-5 SEEN /hpf (5-10); White Blood Cells 0-5 SEEN /hpf (0-5)
--- NOTE | 2023-09-16 04:36 | CT_ITS ---
STUDY: CT ABDOMEN AND PELVIS WITH CONTRAST REASON FOR EXAM: Female, 52 years old patient with right lower quadrant abdominal pain RADIATION DOSAGE (If Supplied By Facility): CTDIvol = ( 22.37 ) mGy, DLP = ( 1511.21 ) mGycm TECHNIQUE: Transaxial images were obtained from the dome of the diaphragm to the symphysis pubis without oral contrast. 100 ml of IV Isovue-370 was administered. Sagittal and coronal images were reconstructed. Individualized dose optimization techniques were used for this CT. COMPARISON: None. FINDINGS: The visualized lung bases are unremarkable. The visualized portions of the heart are within normal limits. Normal liver. Normal gallbladder and extrahepatic biliary system. Normal spleen. Normal pancreas. Normal bilateral adrenal glands. Normal right kidney. Normal left kidney. Normal visualized stomach. No obvious dilated bowel, ascites or pneumoperitoneum. There is abnormal thickening of the lew of proximal small bowel with abnormal enhancement suggesting acute infectious or inflammatory enteritis. There is a large amount of stool visible throughout the colon. There is non-visualization of the appendix. Normal abdominal aorta. Normal inferior vena cava. There is borderline retroperitoneal lymphadenopathy with enlarged nodes no greater than 10mm in the short axis diameter. Normal urinary bladder. There is a small umbilical hernia containing fat. The patient has had discectomies at L2-3, L3-4, L4-5 and L5-S1 with surgical fusion of the L2, L3, L5 and S1 vertebral segments with interpedicular screws and rods. Patient has had a total left hip arthroplasty. There are subarticular lucencies in the right femoral head probably secondary to degenerative subchondral cysts. There is a battery pack within the left buttock connected to what probably represents a neurostimulator with leads entering the upper lumbar spinal canal. CT/Abdomen/Pelvis W IV Cont ONLY IMPRESSION: 1. Findings suggest infectious or inflammatory enteritis. 2. Extensive lumbar spine surgery with a neurostimulator. Electronically Signed: Yasemin Calvo MD at 5:31 EST ,
--- NOTE | 2023-09-16 04:52 | EX.ED.DYSGE1 ---
HPI History of Present Illness Chief Complaint: Abd Pain Narrative Narrative: 52-year-old female presenting from the TCU for abdominal pain. Patient had recent surgery on 09/03/2023 for L5-S1 fusion. Postoperatively she had an ileus, urinary retention. She was admitted for anemia and had a surgical consult and ultimately states she was cleaned out fairly well. She continues to have abdominal pain. She states her back does still hurt. She has had bowel movements all week except for today. She is urinating normally. Patient states that her abdominal pain in the right lower quadrant started hurting worse today. She states she is on oxycodone, muscle relaxers, gabapentin. She states her pain still getting worse. Denies fevers. She states that the ultimate plan was to get her home after rehab in the TCU although she states she is not getting any better. [facility] Medical History Acute maxillary sinusitis, unspecified Ambulates with cane Anemia Anxiety Arthritis Back problem Depression Dietary restriction Easy bruising Former smoker Gastric reflux Hearing problem History of edema History of pain when walking History of ulceration Hives Hypokalemia IBS (irritable bowel syndrome) Injury of head and neck Leg cramps Loss of hearing Menieres disease Migraine headache Neuropathy Osteoarthritis Pain Pneumonia Seasonal allergies Thyroid disease Ulcer Vertigo Vision problem Vitamin deficiency Wears glasses Home Medications celecoxib 200 mg capsule 200 mg PO DAILY PAIN 12/27/16 [History Last Taken 09/02/23] dexamethasone sodium phosphate 0.1 % eye drops 1 drp OP PRN PRN [facility] 12/27/16 [History Last Taken Unknown] amiloride 5 mg tablet 1 tab PO DAILY [facility] 03/27/20 [History Last Taken 09/02/23] gabapentin 600 mg tablet 600 mg PO BID PAIN 08/17/21 [History Last Taken 09/12/23 14:15] omeprazole 40 mg capsule,delayed release 40 mg PO DAILY PER DR 08/17/21 [History Last Taken 09/12/23 08:00] ondansetron HCl 4 mg tablet 4 mg PO Q8H PRN NAUSEA 08/17/21 [History Last Taken Unknown] topiramate 100 mg tablet 100 mg PO BID MIGRAINES 08/17/21 [History Last Taken 09/12/23 08:00] fluticasone propionate 50 mcg/actuation nasal spray,suspension 2 spray PRN PRN ALLERGIES 10/21/21 [History Last Taken Unknown] venlafaxine 75 mg capsule,extended release 24 hr (Effexor XR) 75 mg PO DAILY PER DR 12/27/21 [History Last Taken 09/12/23 08:00] rosuvastatin 10 mg tablet 10 mg PO DAILY PER DR REAGAN 01/24/23 [History Last Taken 09/12/23] levothyroxine 88 mcg tablet (Levoxyl) 88 mcg PO DAILY Thyroid 02/20/23 [History Last Taken 09/12/23 05:00] potassium chloride 20 mEq tablet,extended release 60 meq PO DAILY PER DR 02/20/23 [History Last Taken 09/02/23] triamterene 37.5 mg-hydrochlorothiazide 25 mg tablet 1 tab PO DAILY PER DR 02/20/23 [History Last Taken 09/02/23] cetirizine 10 mg tablet (Zyrtec) 10 mg PO DAILY PRN allergy symptoms 03/08/23 [History Last Taken 09/02/23] lamotrigine 100 mg tablet 100 mg PO DAILY PER DR 03/08/23 [History Last Taken 09/12/23 08:00] meclizine 25 mg tablet 25 mg PO TID PRN dizziness #20 tabs 05/14/23 [Rx Last Taken 09/04/23] cholecalciferol (vitamin D3) 25 mcg (1,000 unit) capsule (Vitamin D3) 25 mcg PO DAILY Supplement 08/20/23 [History Last Taken 09/02/23] multivitamin (Daily Multi-Vitamin tablet) 1 tab PO DAILY PER DR 08/20/23 [History Last Taken 09/02/23] acetaminophen 500 mg tablet 1,000 mg (2 x 500 mg) PO Q8 Pain #0 tabs 09/12/23 [Rx Last Taken 09/12/23 14:15] aspirin 325 mg tablet 325 mg PO BREAKFAST Heart #0 tabs 09/12/23 [Rx Last Taken 09/11/23] bisacodyl 5 mg tablet,delayed release 5 mg PO DAILY Constipation #0 tabs 09/12/23 [Rx Last Taken 09/12/23 05:05] lidocaine 5 % topical patch 2 patch topical DAILY Pain #0 ea 09/12/23 [Rx Last Taken 09/12/23 07:55] methocarbamol 500 mg tablet 1,000 mg (2 x 500 mg) PO 3XD Muscle Relaxer #0 tabs 09/12/23 [Rx Last Taken 09/12/23 12:20] oxycodone 10 mg tablet,crush resistant,extended release 12 hr (OxyContin) 20 mg (2 x 10 mg) PO BID Pain 7 days #28 tabs 09/12/23 [Rx Last Taken 09/12/23 06:55] oxycodone 5 mg tablet 5 - 10 mg (1 - 2 x 5 mg) PO Q4H PRN PRN Pain Score 4-10 2 days #8 tabs 09/12/23 [Rx Last Taken 09/12/23 06:55] sennosides 8.6 mg-docusate sodium 50 mg tablet (Stool Softener-Stimulant Laxative) 2 tab PO BID Constipation #0 tabs 09/12/23 [Rx Last Taken 09/12/23 07:55] Allergy/AdvReac Type Severity Reaction Status Date / Time shellfish derived Allergy Severe vomitting Verified 09/03/23 06:13 Penicillins Allergy Hives Verified 09/03/23 06:13 citric acid AdvReac Severe wears dowm Verified 09/03/23 06:13 linning of mouth duloxetine [From Cymbalta] AdvReac Intermediate Other Verified 09/03/23 06:13 gluten AdvReac Intermediate stomach Verified 09/03/23 06:13 discomfort Family History Other Alcohol abuse Anxiety Arthritis Autoimmune disease Bowel disease Colon cancer Depression Diabetes Heart disease High cholesterol Hypertension Mental disorder Psychiatric care Severe allergic reaction Thyroid disorder Surgical History H/O total hip arthroplasty S/P insertion of spinal cord stimulator Social History household members: none Smoking Status: Current every day smoker tobacco type: e-cigarettes alcohol intake: former year quit: 2016 substance use type: does not use frequency: daily ROS ROS ED Constitutional Constitutional ED: Denies chills, fever(s) or sweats Eyes Eyes: Denies blurry vision or change in vision ENT ENT ED: Denies ear pain or sore throat Cardiovascular Cardiovascular: Denies chest pain, palpitations or racing heartbeat Respiratory/Chest Respiratory/Chest: Denies cough, dyspnea or sputum Gastrointestinal Gastrointestinal: Reports abdominal pain; Denies constipation, diarrhea, nausea or vomiting Genitourinary Genitourinary ED: Denies dysuria, hematuria or urinary frequency Musculoskeletal Musculoskeletal: Denies arthralgias, myalgias or neck pain Integumentary Denies abscess, Abrasions or rash Neurologic Neurologic: Denies headache(s), paresthesias or weakness Psychiatric Psychiatric: Denies anxiety, depression, suicidal ideation or suicidal thoughts Endocrine Endocrinology: Denies polydipsia or polyuria EXAM Physical Exam Const Vital Signs: 09/16/23 03:17 09/16/23 05:17 09/16/23 07:28 Temperature 97 F L Temperature Source Temporal Pulse Rate 87 78 78 Respiratory Rate 18 16 16 Blood Pressure 159/103 H 132/96 H 139/87 H Blood Pressure Mean 121 108 104 Pulse Ox 99 98 Oxygen Delivery Method Room Air Positive well nourished and obese General Appearance ED: NAD; Negative for pallor Nutritional Appearance: obese HEENT Reports moist mucous membranes Eyes PERRL and EOMs intact bilaterally Resp normal respiratory effort Cardio regular rate and regular rhythm GI Palpation: tender RLQ and suprapubic Back/Spine Back/Spine Narrative: Wound dressing appears clean, dry, intact. Neuro oriented x3 and CN's II-XII intact bilaterally Sensorium / Orientation: alert Motor Exam: strength 5/5 throughout Skin General Skin Exam: Negative for jaundice or pallor MDM MDM MDM Narrative Medical decision making narrative: Patient presenting for abdominal pain. She had ileus postoperative of her back pain. Differential includes constipation, ileus, dehydration, anemia, electro abnormalities. Patient has no difficulty with urination I have low suspicion for cauda equina syndrome. CBC was obtained to assess white blood cell count, hemoglobin, platelets. CMP to assess liver function, renal function, electrolytes. All of this is within normal limits. Lipase normal at 46. Urinalysis negative for infection. Patient medicated with Dilaudid and Zofran. Will obtain a CT of the abdomen pelvis with IV contrast. CBC shows normal white blood cell count 9.4. Hemoglobin stable at 9.1. Renal function and electrolytes within normal limits. LFTs are normal with exception alk phosphatase of 170. Lipase 46. CT of the abdomen pelvis with IV contrast shows infectious versus inflammatory enteritis. Patient has normal white blood cell count. She is not having systemic signs or symptoms which is fevers and chills. I believe she is a safe to be discharged back to the TCU. Patient is agreement. She has pain medications over there. Return precautions discussed. Impression: 1. Abdominal pain Lab Data Attestation: I reviewed the patient's lab results. Labs: Laboratory Results - last 24 hr 09/16/23 09/16/23 03:40 03:50 WBC 9.4 RBC 2.92 L Hgb 9.1 L Hct 28.7 L MCV 98.3 MCH 31.2 MCHC 31.7 L RDW Std Deviation 58.8 H RDW Coeff of Zoey 17.6 H Plt Count 493 H MPV 9.1 Immature Gran % (Auto) 1.600 H Neut % (Auto) 65.7 Lymph % (Auto) 21.3 [place] % (Auto) 7.7 Eos % (Auto) 3.0 Baso % (Auto) 0.7 Absolute Neuts (auto) 6.2 Absolute Lymphs (auto) 2.01 Nucleated RBC % 0.3 Sodium 137 Potassium 3.7 Chloride 106 Carbon Dioxide 27.0 Anion Gap 4 L BUN 20 H Creatinine 0.76 Estim Creat Clear Calc 102.90 Est GFR (MDRD) Af Amer 103 Est GFR (MDRD) Non-Af 85 BUN/Creatinine Ratio 26.5 H Glucose 124 H Calcium 8.5 Total Bilirubin 0.20 AST 33 ALT 51 Alkaline Phosphatase 170 H Total Protein 6.4 Albumin 2.9 L Globulin 3.5 Albumin/Globulin Ratio 0.8 L Lipase 46 Urine Color Yellow Urine Clarity Clear Urine pH 6.5 Ur Specific [place] 1.020 Urine Protein 15 H Urine Glucose (UA) Normal Urine Ketones Negative Urine Occult Blood Negative Urine Nitrite Negative Urine Bilirubin Negative Urine Urobilinogen Normal Ur Leukocyte Esterase Negative Urine RBC 0 SEEN Urine WBC 0-5 SEEN Ur Squamous Epith Cells 0-5 SEEN Urine Bacteria 1+ Urine Mucus 0 SEEN Radiography Diagnostic Testing: Clinical Impression(s) from Imaging Studies Abdomen/Pelvis CT 09/16/23 04:36 IMPRESSION: 1. Findings suggest infectious or inflammatory enteritis. 2. Extensive lumbar spine surgery with a neurostimulator. Electronically Signed: Yasemin Calvo MD at 5:31 EST , Discharge Plan Triage Chief Complaint: Abd Pain ED Provider: Iván Stewart Dx/Rx/DC Orders Instructions: ED Abdominal Pain Unkn Cause Fem Prescriptions: No Action topiramate 100 mg tablet 100 mg PO BID Patient Comments: TAKE 1 TABLET BY MOUTH TWICE A DAY gabapentin 600 mg tablet 600 mg PO BID omeprazole 40 mg capsule,delayed release(DR/EC) 40 mg PO DAILY ondansetron HCl 4 mg tablet 4 mg PO Q8H PRN (Reason: NAUSEA) rosuvastatin 10 mg tablet 10 mg PO DAILY Patient Comments: take 1 tablet by mouth once daily cetirizine [Zyrtec] 10 mg tablet 10 mg PO DAILY PRN (Reason: allergy symptoms) lamotrigine 100 mg tablet 100 mg PO DAILY Patient Comments: take 1 tablet by mouth once daily meclizine 25 mg tablet 25 mg PO TID PRN (Reason: dizziness) Qty: 20 0RF celecoxib 200 MG capsule 200 mg PO DAILY dexamethasone sodium phosphate 5 ML drops 1 drp OP PRN PRN (Reason: MENERIES) fluticasone propionate 50 mcg/actuation spray,suspension 2 spray NASAL PRN PRN (Reason: ALLERGIES) amiloride 5 mg tablet 1 tab PO DAILY Patient Comments: TAKE 1 TABLET BY MOUTH EVERY DAY venlafaxine [Effexor XR] 75 mg Capsule,Extended Release 24hr 75 mg PO DAILY levothyroxine [Levoxyl] 88 mcg tablet 88 mcg PO DAILY Patient Comments: TAKE 1 TABLET BY MOUTH ONCE DAILY potassium chloride 20 mEq tablet extended release 60 meq PO DAILY Patient Comments: TAKE 3 TABLETS BY MOUTH ONCE DAILY triamterene-hydrochlorothiazid 37.5-25 mg tablet 1 tab PO DAILY Patient Comments: take 1 tablet by mouth once daily multivitamin [Daily Multi-Vitamin] Tablet 1 tab PO DAILY Patient Comments: ASKING AT APPT ON 08/24 ABOUT STOPPING cholecalciferol (vitamin D3) [Vitamin D3] 25 mcg (1,000 unit) capsule 25 mcg PO DAILY acetaminophen 500 mg Tablet 1,000 mg PO Q8 Qty: 0 0RF aspirin 325 mg Tablet 325 mg PO BREAKFAST Qty: 0 0RF bisacodyl 5 mg Tablet,Delayed Release (Dr/Ec) 5 mg PO DAILY Qty: 0 0RF lidocaine 5 % Adhesive Patch,Medicated 2 patch topical DAILY Qty: 0 0RF Protocol: *Topical Application Instructions APPLICATION INSTRUCTIONS: Please apply over right groin covering part of lower abdomen and inner thigh methocarbamol 500 mg Tablet 1,000 mg PO 3XD Qty: 0 0RF oxycodone 5 mg Tablet 5 - 10 mg PO Q4H PRN PRN (Reason: Pain Score 4-10) 2 Days Qty: 8 0RF oxycodone [OxyContin] 10 mg Tablet,Oral Only,Ext.Rel.12 Hr 20 mg PO BID 7 Days Qty: 28 0RF Rx Instructions: Give for 14 doses and then discontinue sennosides-docusate sodium [Stool Softener-Stimulant Laxat] 8.6-50 mg Tablet 2 tab PO BID Qty: 0 0RF Primary Care Provider: LOGAN TODD Referrals: LOGAN TODD [Other] Disposition Disposition: Home, Self Care Discharge Date/Time: 09/16/23 07:49
[2023-09-16 05:17] VITALS: BP 132/96; PULSE 78; RESP 16; O2SAT 98
[2023-09-16] MEDS: Ondansetron 4 MG/2 ML Vial IV (05:42)
[2023-09-16] MEDS: HYDROmorphone 0.5 MG/0.5 ML SYRINGE IV (05:42)
[2023-09-16 07:28] VITALS: BP 139/87; PULSE 78; RESP 16
== END 2023-09-16 07:49 | disposition home or self-care (01) ==
PROVIDERS: Emergency Provider Student in an Organized Health Care Education/Training Program; Visit Provider Student in an Organized Health Care Education/Training Program
DX: R10.31 Right lower quadrant pain (principal); M54.9 Dorsalgia, unspecified; R33.9 Retention of urine, unspecified; F17.290 Nicotine dependence, other tobacco product, uncomplicated; E66.9 Obesity, unspecified; Z79.82 Long term (current) use of aspirin; Z79.899 Other long term (current) drug therapy; Z98.1 Arthrodesis status
CPT/HCPCS: 74177; 80053; 81001; 83690; 85025; 96374; 96375; 99285; Q9967; A4216; J2405

== ENCOUNTER → 2023-09-21 | Outpatient (CLI) | payer MEDICARE, MEDICAID, SELFPAY ==
--- NOTE | 2023-09-21 16:41 | MRI_ITS ---
INDICATION: LOWER BACK PAIN EXAMINATION: MRI - MR Spine Lumbar W/O Contrast TECHNIQUE: Multiplanar and multisequence MR images of the lumbar spine. IV Contrast Dosage and Agent: None. COMPARISON: MRI lumbar spine without contrast 07/20/2023. FINDINGS: VERTEBRAE: Vertebral body heights are preserved. Signal distortion artifacts involving L2, L3, L5-S1 due to pedicular screws and rods. No obvious abnormality of the visualized portions of the vertebral bodies and posterior osseous elements. VERTEBRAL ALIGNMENT: No spondylolisthesis. There is preservation of the normal lumbar lordosis. CORD: Normal position and signal intensity of the conus medullaris terminating at the lower L1 vertebral body level. T11-T12: (Sagittal only). Normal endplates. Normal disc height and hydration. Mild ventral extradural defect due to posterior bulging annulus. Normal central canal and bilateral intervertebral neural foramina. T12-L1: (Sagittal only). Normal endplates. Normal disc height, hydration and morphology. Normal central canal and bilateral intervertebral neural foramina. L1/L2: Normal endplates. Mild disc space height narrowing. Prominent left ventral extradural defect is suspicious for small left posterior cephalad disc protrusion (series 7, image 7; series 10, image 27). This was present previously. No significant facet arthropathy. Normal central canal and right lateral recess. Mild stenosis of the left lateral recess due to disc protrusion. Normal bilateral intervertebral neural foramina. L2/L3: Disc implant inside the disc space elevating the disc space height. Pedicular screws and rods causing signal distortion artifacts. Normal central canal and bilateral lateral recesses. Normal bilateral intervertebral neural foramina. L3/L4: Disc implant inside the disc space elevating the disc space height. L3 pedicular screws and rods causing signal distortion artifacts. No significant facet arthropathy. Normal central canal and bilateral lateral recesses. Normal bilateral intervertebral neural foramina. L4/L5: Disc implant inside the disc space causing elevation of the disc space height. Normal central canal and bilateral lateral recesses. Normal bilateral intervertebral neural foramina. L5/S1: Disc implant inside the disc space. No of the minimal anterolisthesis of L5 on S1. Normal central canal and bilateral lateral recesses. Normal bilateral intervertebral neural foramina. SOFT TISSUES: Unremarkable. MRI/Spine Lumbar (Routine) IMPRESSION: 1. Prominent left L1-L2 posterior cephalad disc protrusion but unchanged when compared to 07/20/2023. Advise clinical correlation if there are symptoms of left L2 nerve root sleeve radiculopathy. 2. Elevation of the lumbar disc space heights at L2-L3, L3-L4, L4-L5 and L5-S1 disc space levels following placement of disc implant. 3. Interval improvement of the minimal anterolisthesis of L5 on S1 following postoperative fusion using pedicular screws and rods. 4. Interval improvement of degenerative retrolisthesis of L2 on L3 and resolution of the prominent bone spur at the L2-L3 disc space level following surgery. 5. No other additional findings or changes. Electronically Signed: Calvin Arita MD at 11:01 EST ,
== END | disposition home or self-care (01) ==
LOC: MRI 16:03
PROVIDERS: Referring Provider Family Medicine Geriatric Medicine; Visit Provider Family Medicine Geriatric Medicine
DX: M25.512 Pain in left shoulder (principal); M54.50 Low back pain, unspecified
CPT/HCPCS: 72148

== ENCOUNTER 2023-09-25 06:23 | Emergency (ER) | payer MEDICARE, MEDICAID, SELFPAY ==
[2023-09-25] VITALS (7 sets, daily range): BP systolic 103–149; BP diastolic 73–103; PULSE 84–99; RESP 16–23; TEMP 36.4–36.6; O2SAT 96–99; BMI 37.7
--- NOTE | 2023-09-25 06:30 | RAD_ITS ---
STUDY: X-RAY CHEST REASON FOR EXAM: Female, 52 years old. Neuro deficit, acute, stroke suspected TECHNIQUE: Single AP portable view of the chest. COMPARISON: March 11, 2022 FINDINGS: Thoracic spine stimulating catheters redemonstrated. No visualized consolidation. Redemonstration of mild patchy interstitial fibrotic opacities of the lower lobes. There is no demonstrated pleural abnormality. Normal size heart. Normal mediastinum and darleen. Normal visualized pulmonary arteries. Normal visualized aortic arch and descending thoracic aorta. Normal visualized thoracic spine. Normal visualized ribs, clavicles, and shoulders. There is no demonstrated abnormality of the visualized soft tissue structures of the upper abdomen. RAD/Chest 1 View IMPRESSION: No acute process Electronically Signed: Jay Nguyen MD at 8:10 EST ,
--- NOTE | 2023-09-25 06:30 | CT_ITS ---
We are attempting to reach an attending provider to discuss findings. An addendum with communication details will be sent when the communication is complete. INDICATION: Neuro deficit, acute, stroke suspected EXAMINATION: CT BRAIN - CT Head Stroke Protocol W/O Contrast Injection TECHNIQUE: Multiple axial images were obtained of the head without intravenous contrast. A radiation dose optimization technique was used for this scan. IV Contrast dosage and agent: None. RADIATION DOSAGE (If Supplied By Facility): CTDIvol = ( ) mGy, DLP = ( ) mGycm COMPARISON: None. FINDINGS: BRAIN: No acute bleed. No edema. Mcneil-white matter differentiation is maintained. VENTRICLES AND SULCI: Not dilated. EXTRA-AXIAL: No hemorrhage, fluid collection, or mass. CALVARIUM / SKULL BASE: Unremarkable. FACE/SINUSES: Unremarkable. SOFT TISSUES: Unremarkable. CT/STROKE Brain/Head without Cont IMPRESSION: No acute abnormality. CT angiogram and/or MRI recommended to evaluate for acute infarct as clinically indicated. Electronically Signed: Ida Chaudhary MD at 6:48 EST ,
--- NOTE | 2023-09-25 06:30 | EKG12_ITS ---
Test Reason : POSS STROKE Blood Pressure : / mmHG Vent. Rate : 091 BPM Atrial Rate : 091 BPM P-R Int : 154 ms QRS Dur : 084 ms QT Int : 410 ms P-R-T Axes : 067 -37 046 degrees QTc Int : 504 ms Sinus rhythm with Premature atrial complexes with Aberrant conduction Left axis deviation Abnormal ECG Baseline artifact Confirmed by Milad Johns ([id number]), photography editor JASON RODRIGUEZ ([id number]) on 09/26/2023 10:53:45 AM Referred By: Confirmed By:Milad Johns
--- NOTE | 2023-09-25 06:31 | CT_ITS ---
INDICATION: Neuro deficit, acute, stroke suspected EXAMINATION: CTA CAROTIDS AND BRAIN - CTA Head and Neck Stroke W/ Contrast (and W/O if performed) TECHNIQUE: Routine CTA of the head and neck was performed with post processing of the angiographic images for volumetric reconstructions. In addition, images were obtained of the [place]. Nascet criteria using the distal ICAs for comparison were used for evaluation of stenoses. 3D reconstructions were reviewed. A radiation dose optimization technique was used for this scan. IV Contrast dosage and agent: 100 mL [id number] COMPARISON: None. 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 No dissection or ectasia in the limited study [id number]... RIGHT CCA: Medial prevertebral course. No occlusion, significant stenosis or dissection. RIGHT ICA: Tortuous course skull base. No occlusion, significant stenosis or dissection. LEFT CCA: Medial prevertebral course. No occlusion, significant stenosis or dissection. LEFT ICA: Tortuous course and skull base No occlusion, significant stenosis or dissection. RIGHT VERTEBRAL ARTERY: No occlusion, significant stenosis or dissection. LEFT VERTEBRAL ARTERY: No occlusion, significant stenosis or dissection. NECK SOFT TISSUES: Unremarkable. LUNG APICES: Clear. BONES: Unremarkable. --HEAD: --Anterior circulation: ICAs: Bilateral cavernous carotid atherosclerosis without evidence of flow-limiting stenosis. No significant stenosis at the intracranial/visualized segments. ACAs: No significant stenosis at the visualized segments. ACOM: Present. MCAs: No significant stenosis at the visualized segments. 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 BASILAR ARTERY: No significant stenosis. VERTEBRAL ARTERIES: No significant stenosis at the intradural/visualized segments. No evidence of intracranial aneurysm or vascular malformation. CT/STROKE CTA Head AND Neck W/Con IMPRESSION: No evidence of cervical or proximal intracranial vascular occlusion or focal flow-limiting stenosis. Normal variant vascular anatomy as above. N.B. : The above Results were Read Back by Rubio Ravi MD to Cosme Wood MD, and understanding confirmed on 09/25/2023 07:43:14 (ET). Electronically Signed: Rubio Ravi MD at 7:44 EST ,
--- NOTE | 2023-09-25 06:32 | EDS_ITS ---
HPI History of Present Illness Chief Complaint: Stroke Alert Informant: patient and other (clinical rehabilitation liaison) Narrative Narrative: Patient recently had a spinal fusion and as result has been having back pain and right lower extremity pain, and currently is in rehab. She is brought down to the ER as an acute stroke alert just after 6 AM because of a mental status change and blood pressure 140s/120s, without focal deficit. Rehab nurse who accompanies her states she last saw her normal at 3 AM. She has been on lots of medications because of pain, she received an oxycodone after 3 AM, and when she rechecked on her just prior to calling stroke alert, she was altered. She was clenching her hands and spasm to some degree, and not coherent like normal or processing things mentally like normal. 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 [facility] Medical History Acute maxillary sinusitis, unspecified Ambulates with cane Anemia Anxiety Arthritis Back problem Depression Dietary restriction Easy bruising Former smoker Gastric reflux Hearing problem History of edema History of pain when walking History of ulceration Hives Hypokalemia IBS (irritable bowel syndrome) Injury of head and neck Leg cramps Loss of hearing Menieres disease Migraine headache Neuropathy Osteoarthritis Pain Pneumonia Seasonal allergies Thyroid disease Ulcer Vertigo Vision problem Vitamin deficiency Wears glasses Home Medications celecoxib 200 mg capsule 200 mg PO DAILY PAIN 12/27/16 [History Last Taken 09/02/23] amiloride 5 mg tablet 1 tab PO DAILY MENERIES 03/27/20 [History Last Taken 09/02/23] omeprazole 40 mg capsule,delayed release 40 mg PO DAILY PER 08/17/21 [History Last Taken 09/12/23 08:00] ondansetron HCl 4 mg tablet 4 mg PO Q8H PRN NAUSEA 08/17/21 [History Last Taken Unknown] topiramate 100 mg tablet 100 mg PO BID MIGRAINES 08/17/21 [History Last Taken 09/12/23 08:00] fluticasone propionate 50 mcg/actuation nasal spray,suspension 2 spray PRN PRN ALLERGIES 10/21/21 [History Last Taken Unknown] venlafaxine 75 mg capsule,extended release 24 hr (Effexor XR) 75 mg PO DAILY PER 12/27/21 [History Last Taken 09/12/23 08:00] rosuvastatin 10 mg tablet 10 mg PO DAILY PER DR REAGAN 01/24/23 [History Last Taken 09/12/23] levothyroxine 88 mcg tablet (Levoxyl) 88 mcg PO DAILY Thyroid 02/20/23 [History Last Taken 09/12/23 05:00] potassium chloride 20 mEq tablet,extended release 60 meq PO DAILY PER DR 02/20/23 [History Last Taken 09/02/23] triamterene 37.5 mg-hydrochlorothiazide 25 mg tablet 1 tab PO DAILY PER DR 02/20/23 [History Last Taken 09/02/23] cetirizine 10 mg tablet (Zyrtec) 10 mg PO DAILY PRN allergy symptoms 03/08/23 [History Last Taken 09/02/23] lamotrigine 100 mg tablet 100 mg PO DAILY PER DR 03/08/23 [History Last Taken 09/12/23 08:00] meclizine 25 mg tablet 25 mg PO TID PRN dizziness #20 tabs 05/14/23 [Rx Last Taken 09/04/23] cholecalciferol (vitamin D3) 25 mcg (1,000 unit) capsule (Vitamin D3) 25 mcg PO DAILY Supplement 08/20/23 [History Last Taken 09/02/23] multivitamin (Daily Multi-Vitamin tablet) 1 tab PO DAILY PER DR 08/20/23 [History Last Taken 09/02/23] acetaminophen 500 mg tablet 1,000 mg (2 x 500 mg) PO Q8 Pain #0 tabs 09/12/23 [Rx Last Taken 09/12/23 14:15] aspirin 325 mg tablet 325 mg PO BREAKFAST Heart #0 tabs 09/12/23 [Rx Last Taken 09/11/23] sennosides 8.6 mg-docusate sodium 50 mg tablet (Stool Softener-Stimulant Laxative) 2 tab PO BID Constipation #0 tabs 09/12/23 [Rx Last Taken 09/12/23 07:55] baclofen 10 mg tablet 20 mg (2 x 10 mg) PO 4X/DAY 30 days #240 tabs 09/24/23 [Rx Last Taken Unknown] bisacodyl 5 mg tablet,delayed release 10 mg (2 x 5 mg) PO DAILY 30 days #60 tabs 09/24/23 [Rx Last Taken Unknown] diazepam 5 mg tablet 10 mg (2 x 5 mg) PO 4X/DAY PRN PRN Spasms 7 days #56 tabs 09/24/23 [Rx Last Taken Unknown] doxepin 25 mg capsule 25 mg PO QHS 30 days #30 caps 09/24/23 [Rx Last Taken Unknown] gabapentin 600 mg tablet 600 mg PO 4X/DAY 30 days #120 tabs 09/24/23 [Rx Last Taken Unknown] lidocaine 5 % topical patch 2 patch topical DAILY 30 days #60 ea 09/24/23 [Rx Last Taken Unknown] oxycodone 5 mg tablet 5 - 10 mg (1 - 2 x 5 mg) PO Q4H PRN PRN Pain Score 4-10 3 days #36 tabs 09/24/23 [Rx Last Taken Unknown] Allergy/AdvReac Type Severity Reaction Status Date / Time shellfish derived Allergy Severe vomitting Verified 09/25/23 06:35 Penicillins Allergy Hives Verified 09/25/23 06:35 citric acid AdvReac Severe wears dowm Verified 09/25/23 06:35 linning of mouth duloxetine [From Cymbalta] AdvReac Intermediate Other Verified 09/25/23 06:35 gluten AdvReac Intermediate stomach Verified 09/25/23 06:35 discomfort Family History Other Alcohol abuse Anxiety Arthritis Autoimmune disease Bowel disease Colon cancer Depression Diabetes Heart disease High cholesterol Hypertension Mental disorder Psychiatric care Severe allergic reaction Thyroid disorder Surgical History H/O total hip arthroplasty S/P insertion of spinal cord stimulator Social History household members: none Smoking Status: Current every day smoker tobacco type: e-cigarettes alcohol intake: former year quit: 2015 substance use type: does not use frequency: daily ROS ROS ED Constitutional Constitutional ED: Denies chills or fever(s) Eyes Eyes: Denies change in vision or diplopia ENT ENT ED: Denies rhinorrhea or sore throat Cardiovascular Cardiovascular: Denies chest pain or palpitations Respiratory/Chest Respiratory/Chest: Denies cough or dyspnea Gastrointestinal Gastrointestinal: Reports nausea; Denies abdominal pain, diarrhea or vomiting Genitourinary Genitourinary ED: Denies dysuria or hematuria Musculoskeletal Musculoskeletal: Reports as per HPI, back pain and extremity pain; Denies neck pain Integumentary Denies abscess or rash Neurologic Neurologic: Reports headache(s); Denies paresthesias or weakness Psychiatric Psychiatric: Denies anxiety or suicidal thoughts EXAM Physical Exam Const Vital Signs: 09/25/23 06:25 09/25/23 06:25 09/25/23 06:30 Temperature 97.6 F L 97.6 F L Temperature Source Temporal Temporal Pulse Rate 99 99 Respiratory Rate 18 18 Blood Pressure 129/103 H 129/103 H Blood Pressure Mean 111 111 Pulse Ox 99 98 Oxygen Delivery Method Room Air Room Air Room Air 09/25/23 06:30 09/25/23 07:00 09/25/23 07:17 Temperature 97.6 F L Temperature Source Temporal Pulse Rate 99 94 90 Respiratory Rate 18 22 H 23 H Blood Pressure 129/103 H 140/90 H 118/94 H Blood Pressure Mean 111 106 102 Pulse Ox 98 97 96 Oxygen Delivery Method Room Air Room Air Room Air Positive well nourished and well developed General Appearance ED: well developed and NAD HEENT Reports moist mucous membranes normocephalic and atraumatic Eyes PERRL and EOMs intact bilaterally Neck full ROM and supple Resp normal respiratory effort and clear to auscultation bilaterally Cardio regular rate, regular rhythm and no murmurs GI non-tender and non-distended Auscultation: normoactive bowel sounds Palpation: soft Back/Spine no CVA tenderness General Back: other FROM Extremity normal to inspection General Extremety ED: Negative for edema, pulses abnormal or tenderness General Extremity: Negative for edema or pulses abnormal Neuro oriented x3, CN's II-XII intact bilaterally and no sensory deficits noted Neuro Narrative: Oriented to the month and her age. No aphasia. No dysarthria. No focal neurologic deficits. Visual king intact. Normal [id number] and [id number] within the limits of the exam. Limited evaluation of the right lower extremity due to pain, but she can move it and feel it well. Sensorium / Orientation: awake and alert Psych Psych Narrative: Flat affect, acts a little spacey but keenly alert Skin no rashes or lesions noted and no wounds NIHSS NIHSS Initial: 1a Level of Consciousness: 0 1b LOC Questions (Score 2 if aphasic/stupor): 0 1c LOC Commands (Only score 1st attempt): 0 2 Best Gaze (If aphasic, use reflexive mvmts.): 0 3 Visual: 0 4 Facial Palsy: 0 5 Motor Arm Right (UN = amputation/fusion): 0 5 Motor Arm Left: 0 6 Motor Leg Right: 0 6 Motor Leg Left: 0 7 Limb ataxia (Only + if out of proportion): 0 8 Sensory (Aphasia/stupor=0 or 1, coma=2): 0 9 Best Language: 0 10 Dysarthria (mute, coma=2, intubated=UN): 0 11 Extinction and Inattention (only scored if +): 0 Total Score: 0 MDM MDM MDM Narrative Medical decision making narrative: I reviewed stat CT and CTA, I agree with the report, essentially negative for any acute. Although this does not rule out acute ischemic stroke, I think that is not the most likely etiology of the patient's altered mental status. She is on diazepam, oxycodone, doxepin, and several other medications that could be altering her mental status especially between 3-6 AM. We are also screening her for dysrhythmias and infections. EKG is interpreted by myself as normal. Her blood work shows that she appears to be dehydrated. She is hypernatremic and hyperchloremic along with prerenal azotemia, which I am interpreting as dehydration. IV fluids ordered. In disc ussing with stroke neurology Dr. Jones, he agrees that the patient is not a thrombolytic candidate since she had spinal surgery less than a month ago, and also agrees that this is not likely to be acute stroke given the presentation. He supports sending the patient back to rehab and treating any other metabolic issues we find as above. I discussed this with Dr. Henderson who is managing her on rehab, and he is in agreement with that as well, adding a request for a urine drug screen which I added, due to the patient really complaining of lots of pain and muscle spasms yesterday, for which she has increased her baclofen dose and other medications, and wondering if a family member may be giving her something that she is not being prescribed in the hospital. At this time, we are waiting for the pt to provide a urine specimen, but she is dehydrated so it may take a little time after she receives fluids. Will have AM ED physician check and discharge pt back to rehab appropriately. History & Record Review Additional record(s) reviewed:: Prior inpatient record (spinal fusion 09/03/23) Lab Data Attestation: I reviewed the patient's lab results. Labs: Laboratory Results - last 24 hr 09/25/23 06:30 WBC 8.9 RBC 3.55 L Hgb 10.7 L Hct 35.0 L MCV 98.6 MCH 30.1 MCHC 30.6 L RDW Std Deviation 59.5 H RDW Coeff of Zoey 16.3 H Plt Count 435 MPV 9.4 Immature Gran % (Auto) 0.300 Neut % (Auto) 61.8 Lymph % (Auto) 25.2 [place] % (Auto) 7.9 Eos % (Auto) 3.9 Baso % (Auto) 0.9 Absolute Neuts (auto) 5.5 Absolute Lymphs (auto) 2.25 Nucleated RBC % 0 PT 13.7 INR 1.1 APTT 27.7 Sodium 146 H Potassium 4.2 Chloride 113 H Carbon Dioxide 27.0 Anion Gap 6 BUN 24 H Creatinine 0.88 Estim Creat Clear Calc 88.92 Est GFR (MDRD) Af Amer 87 Est GFR (MDRD) Non-Af 72 BUN/Creatinine Ratio 27.4 H Glucose 105 Calcium 9.1 Troponin I High Sens 7 Radiography Chest X-Ray - ED: 1 View, Read by ED Physician, No Acute Disease and No Infiltrates Diagnostic Testing: Clinical Impression(s) from Imaging Studies Brain CT 09/25/23 06:30 IMPRESSION: No acute abnormality. CT angiogram and/or MRI recommended to evaluate for acute infarct as clinically indicated. Electronically Signed: Ida Chaudhary MD at 6:48 EST , ADDENDUM: 09/25/23 0617 IMPRESSION: No acute abnormality. CT angiogram and/or MRI recommended to evaluate for acute infarct as clinically indicated. N.B. : The above Results were Read Back by Ida Chaudhary MD to Rafael Wood MD, and understanding confirmed on 09/25/2023 06:49:23 (ET). Electronically Signed: Ida Chaudhary MD at 6:48 EST Reading Location ID and State: [facility] / [place] Tel , Service support , Rhythm Strip Rhythm Strip: Sinus Rhythm Rate: 90 Ectopy: PVC(s) EKG Initial EKG: Attestation: I personally reviewed and interpreted this EKG as follows: Interpretation: Sinus Rhythm, No Acute Injury Pattern and LAFB Management Discussion w/another healthcare provider: Alternative Energy Technician (stroke neurology), Radiologist and Other (Dr. Henderson, rehab) Stroke Documentation Questions Stroke Team Activated: Yes (prior to ED arrival) Reviewed Inclusion/Exclusion criteria: Yes Was Patient considered for Endovascular Intervention?: No-CTA negative, determined not to be an endovascular candidate IV Thrombolytic Administered: No (due to recent spine surgery and CVA not most l ikely Dx) No contraindications from thrombolytic administration: No Critical Care Time Critical Care Time: Yes Critical care time (excluding procedures): 30-74 minutes (32 min), Including time spent:, Discussing w/Patient &/or Family/Head Of Sales, Discussing w/Consultants, Arranging Admission or Transfer and Performing Direct Patient Care at Bedside Discharge Plan Triage Chief Complaint: Stroke Alert ED Provider: Rafael Wood Dx/Rx/DC Orders Clinical Impression: Acute alteration in mental status, Dehydration Prescriptions: No Action topiramate 100 mg tablet 100 mg PO BID Patient Comments: TAKE 1 TABLET BY MOUTH TWICE A DAY omeprazole 40 mg capsule,delayed release(DR/EC) 40 mg PO DAILY ondansetron HCl 4 mg tablet 4 mg PO Q8H PRN (Reason: NAUSEA) rosuvastatin 10 mg tablet 10 mg PO DAILY Patient Comments: take 1 tablet by mouth once daily cetirizine [Zyrtec] 10 mg tablet 10 mg PO DAILY PRN (Reason: allergy symptoms) lamotrigine 100 mg tablet 100 mg PO DAILY Patient Comments: take 1 tablet by mouth once daily meclizine 25 mg tablet 25 mg PO TID PRN (Reason: dizziness) Qty: 20 0RF celecoxib 200 MG capsule 200 mg PO DAILY fluticasone propionate 50 mcg/actuation spray,suspension 2 spray NASAL PRN PRN (Reason: ALLERGIES) amiloride 5 mg tablet 1 tab PO DAILY Patient Comments: TAKE 1 TABLET BY MOUTH EVERY DAY venlafaxine [Effexor XR] 75 mg Capsule,Extended Release 24hr 75 mg PO DAILY levothyroxine [Levoxyl] 88 mcg tablet 88 mcg PO DAILY Patient Comments: TAKE 1 TABLET BY MOUTH ONCE DAILY potassium chloride 20 mEq tablet extended release 60 meq PO DAILY Patient Comments: TAKE 3 TABLETS BY MOUTH ONCE DAILY triamterene-hydrochlorothiazid 37.5-25 mg tablet 1 tab PO DAILY Patient Comments: take 1 tablet by mouth once daily multivitamin [Daily Multi-Vitamin] Tablet 1 tab PO DAILY Patient Comments: ASKING AT APPT ON 08/24 ABOUT STOPPING cholecalciferol (vitamin D3) [Vitamin D3] 25 mcg (1,000 unit) capsule 25 mcg PO DAILY acetaminophen 500 mg Tablet 1,000 mg PO Q8 Qty: 0 0RF aspirin 325 mg Tablet 325 mg PO BREAKFAST Qty: 0 0RF sennosides-docusate sodium [Stool Softener-Stimulant Laxat] 8.6-50 mg Tablet 2 tab PO BID Qty: 0 0RF bisacodyl 5 mg Tablet,Delayed Release (Dr/Ec) 10 mg PO DAILY 30 Days Qty: 60 0RF gabapentin 600 mg Tablet 600 mg PO 4X/DAY 30 Days Qty: 120 0RF lidocaine 5 % Adhesive Patch,Medicated 2 patch topical DAILY 30 Days Qty: 60 0RF Protocol: *Topical Application Instructions APPLICATION INSTRUCTIONS: Apply over right groin covering part of lower abdomen and inner thigh. oxycodone 5 mg Tablet 5 - 10 mg PO Q4H PRN PRN (Reason: Pain Score 4-10) 3 Days Qty: 36 0RF doxepin 25 mg Capsule 25 mg PO QHS 30 Days Qty: 30 0RF baclofen 10 mg Tablet 20 mg PO 4X/DAY 30 Days Qty: 240 0RF diazepam 5 mg Tablet 10 mg PO 4X/DAY PRN PRN (Reason: Spasms) 7 Days Qty: 56 0RF Primary Care Provider: Care Physician,No Primary Referrals: Ky Henderson Chi, MD [Med Staff - Active Staff] - As soon as possible (contact for orders) Disposition Disposition: Inpatient Rehab Unit/Facility
--- OUTSIDE RECORDS SUMMARY | 2023-09-25 06:33 | XMS RPT_ITS | CCD ---
Author Name Unknown Address [address] [place] [address] Organization [facility] Care Team Providers Care Emulsion Operator Name Role Phone KhalifMelinda Menendez Unavailable UnavailYuni Reeves Unavailable UnavailLogan Espino Unavailable Unavailable Keyana Lee Unavailable Unavaila Logan Ortiz Unavailable Unavailable Unavailable Logan Haddad MD Primary Care Provider 1( [phone] Logan Haddad MD Primary Care Provider 1( [phone] Boo, Dr. Logan Biswas Attending Unavail able Boo, Dr. Logan Biswas Primary Care Unavail able Raj, Dr. Yuni Leyva Referring Un available Anthony, Dr. Yuni Leyva Attending Un available Boo, Dr. Logan Biswas Primary Care Unavail able Raj, Dr. Yuni Leyva Attending Un available Boo, Dr. Logan Biswas Primary Care Unavail able Raj, Dr. Yuni Leyva Referring Un available ADELE, MIKE Weller Referring Unavailable LOGAN HADDAD Primary Care Unavailable TRAVIS FROST Referring Unavailable BOOLOGAN PAVON Primary Care Unavailable FESTUS VEGA Attending Unavailable WABEKE, PERCY Attending Unavailable BOOLOGAN PAVON Primary Care Unavailable KEYANABECLAUDINE, PERCY Attending Unavailable LOGAN HADDAD Primary Care Unavailable KEYANABECLAUDINE, PERCY Attending Unavailable KEYANABECLAUDINE, PERCY Referring Unavailable LOGAN HADDAD Primary Care Unavailable ADELE, MIKE Y Attending Unavailable LOGAN HADDAD Primary Care Unavailable WABEKE, PERCY Attending Unavailable KEYANABEKE, PERCY Referring Unavailable BOOLOGAN PAVON Primary Care Unavailable TRAVIS FROST Attending Unavailable BOOLOGAN PAVON Primary Care Unavailable KEYANABEKE, PERCY Attending Unavailable BOOLOGAN PAVON Primary Care Unavailable WABEKE, PERCY Attending Unavailable BOO, LOGAN BISWAS Primary Care Unavailable WABEKE, PERCY Attending Unavailable WABEKE, PERCY Referring Unavailable BOO, LOGAN BISWAS Primary Care Unavailable WABEKE, PERCY Attending Unavailable WABEKE, PERCY Referring Unavailable BOO, LOGAN BISWAS Primary Care Unavailable ADELE, MIKE Weller Attending Unavailable BOO, LOGAN BISWAS Primary Care [...] (2 sources) DULoxetine; Translations: [Cymbalta] Drug Allergy [facility] Work Phone: Penicillins (antibiotic) (2 sources) Penicillins; Translations: [Penicillins] Drug Allergy [facility] Work Phone: (6 sources) DULoxetine; Translations: [Cymbalta] Drug Allergy [facility] Work Phone: (8 sources) Penicillins; Translations: [Penicillins] Allergy to drug (finding) 9 [facility] Other [place] [facility] (14 sources) DULoxetine; Translations: [DULOXETINE] Drug Allergy 9 Other: See Comments [facility] (14 sources) Lactose; Translations: [LACTOSE] Drug Allergy 8 GI Upset [facility] (12 sources) Penicillins Propensity to adverse reactions 9 Hives [facility] (14 sources) Shellfish; Translations: [SHELLFISH DERIVED] Drug Intolerance 8 Vomiting [facility] Medications Current Medications Medication Drug Class(es) Dates Sig (Normalized) Sig (Original) polyethylene glycol 3350 [id number] mg / potassium chloride 2970 mg / sodium bicarbonate 6740 mg / sodium chloride 5860 mg / sodium sulfate 88493 mg powder for oral solution (1 source) [...] Sig (Original) acetaminophen 325 mg oral tablet (12 sources) Start: 11-08-2017 take 2 tablets by [...] hypercholesterolemia, unspecified] Onset: 10-09-2022 Chronic Essential hypertension (15 sources) Essential hypertension; Translations: [Essential (primary) hypertension] Onset: 10-22-2017 10-22-2017 Chronic Headache; including migraine (20 sources) Migraine variants; Translations: [Other migraine, not intractable, without status migrainosus] Onset: 08-27-2009 Chronic Immunizations and screening for infectious disease (13 sources) Patient encounter status; Translations: [Screening examination for venereal disease] Episodic Menopausal disorders (12 sources) Menorrhagia; Translations: [Excessive bleeding in the premenopausal period] Onset: 02-08-2021 02-08-2021 Chronic Menstrual disorders (8 sources) Irregular periods; Translations: [Irregular menstrual cycle] Chronic Miscellaneous mental health disorders (12 sources) Pain disorder with psychological factor; Translations: [Pain disorder with related psychological factors] Onset: 09-13-2015 09-13-2015 Chronic Mood disorders (20 sources) Recurrent major depression in partial remission; Translations: [Major depressive disorder, recurrent, in partial remission] Onset: 06-23-2015 06-23-2015 Chronic Nutritional deficiencies (12 sources) Vitamin D deficiency; Translations: [Vitamin D deficiency, unspecified] Onset: 02-08-2021 02-08-2021 Chronic Osteoarthritis (12 sources) Osteoarthritis of left hip joint; Translations: [Unilateral primary osteoarthritis, left hip] Onset: 10-22-2017 10-22-2017 Chronic Other aftercare (1 source) Long-term current use of diuretic; Translations: [Other rn long term care (current) drug therapy] Episodic Other ear and [...] Onset: 10-09-2022 Episodic Other upper respiratory disease (12 sources) Rhinitis; Translations: [Chronic rhinitis] Onset: 04-21-2013 04-21-2013 Chronic Other upper respiratory infections (12 sources) Sinusitis; Translations: [Chronic sinusitis, unspecified] Onset: 04-21-2013 04-21-2013 Chronic Substance-related disorders (12 sources) Nicotine dependence; Translations: [Nicotine dependence, unspecified, uncomplicated] Onset: 11-07-2017 11-07-2017 Chronic Thyroid disorders (12 sources) Hypothyroidism; Translations: [Hypothyroidism, unspecified] Onset: 10-22-2017 10-22-2017 Chronic Unclassified (12 sources) Transformed migraine; Translations: [Chronic migraine] Onset: 12-08-2014 12-08-2014 Urinary tract infections (8 sources) Bacterial urinary infection; Translations: [Urinary tract infection, site not specified] Episodic Past or Other Problems Problem Classification Problem Date Documented Date Episodic/Chronic Complication of device; implant or graft (12 sources) Complication of implant; Translations: [Breakdown (mechanical) of other specified internal prosthetic devices, implants and grafts, initial encounter] Onset: 04-21-2013 04-21-2013 Episodic Fluid and electrolyte disorders (12 sources) Hypokalemia; Translations: [Hypokalemia] Onset: 10-23-2017 10-23-2017 Episodic Headache; including migraine (12 sources) Medication overuse headache; Translations: [Drug-induced headache, not elsewhere classified, not intractable] Onset: 12-08-2014 12-08-2014 Episodic Miscellaneous mental health disorders (12 sources) Psychophysiologic insomnia; Translations: [Adjustment insomnia] Onset: 02-08-2021 02-08-2021 Episodic Other connective tissue disease (12 sources) Muscle pain; Translations: [Myalgia and myositis, unspecified] Onset: 12-08-2014 12-08-2014 Episodic Other ear and sense organ disorders (12 sources) Otalgia, right ear; Translations: [Otalgia, unspecified] Onset: 04-21-2013 04-21-2013 Episodic Other nervous system disorders (12 sources) Abnormal gait; Translations: [Unspecified abnormalities of [...] 165.1 cm Mike Angulo MD Work Phone: [facility] 03-27-2023 16:01-0400 Body weight 102.92 kg Mike Angulo MD Work Phone: [facility] 03-27-2023 16:01-0400 Diastolic blood pressure 73 mm[Hg] Mike Angulo MD Work Phone: [facility] 03-27-2023 16:01-0400 Heart rate 86 /min Mike Angulo MD Work Phone: [facility] 03-27-2023 16:01-0400 SaO2% (BldA) [Mass fraction] 94 % Mike Angulo MD Work Phone: [facility] 03-27-2023 16:01-0400 Systolic blood pressure 121 mm[Hg] Mike Angulo MD Work Phone: [facility] 11-10-2022 13:30-0400 Body temperature 97 [degF] Travis Frost MD Work Phone: [facility] 11-10-2022 13:30-0400 Diastolic blood pressure 85 mm[Hg] Travis Frost MD Work Phone: [facility] 11-10-2022 13:30-0400 Heart rate 75 /min Travis Frost MD Work Phone: [facility] 11-10-2022 13:30-0400 Respiratory rate 16 /min Travis Frost MD Work Phone: [facility] 11-10-2022 13:30-0400 SaO2% (BldA) [Mass fraction] 95 % Travis Frost MD Work Phone: [facility] 11-10-2022 13:30-0400 Systolic blood pressure 138 mm[Hg] Travis Frost MD Work Phone: [facility] 11-06-2022 13:16-0400 Body height 165.1 cm Travis Frost MD Work Phone: [facility] 11-06-2022 13:16-0400 Body temperature 98.01 [degF] Travis Frost MD Work Phone: [facility] 11-06-2022 13:16-0400 Body weight 108.05 kg Travis Frost MD Work Phone: [facility] 11-06-2022 13:16-0400 Diastolic blood pressure 84 mm[Hg] Travis rFost MD Work Phone: [facility] 11-06-2022 13:16-0400 Heart rate 99 /min Travis Frost MD Work Phone: [facility] 11-06-2022 13:16-0400 SaO2% (BldA) [Mass fraction] 99 % Travis Frost MD Work Phone: [facility] 11-06-2022 13:16-0400 Systolic blood pressure 122 mm[Hg] Travis Frost MD Work Phone: [facility] 05-29-2022 14:18-0400 Body height 165.1 cm Logan Haddad Work Phone: [facility] Work Phone: 05-29-2022 14:18-0400 Body mass index (BMI) [Ratio] 39.44 kg/m2 Logan Haddad Work Phone: [facility] Work Phone: 05-29-2022 14:18-0400 Body surface area Derived from formula 2.13 m2 Logan Haddad Work Phone: [facility] Work Phone: 05-29-2022 14:18-0400 Body weight 107.5 kg Logan Haddad Work Phone: [facility] Work Phone: 05-29-2022 14:18-0400 Diastolic blood pressure 79 mm[Hg] Logan Haddad Work Phone: [facility] Work Phone: 05-29-2022 14:18-0400 Systolic blood pressure 129 mm[Hg] Logan Haddad Work Phone: [facility] Work Phone: 04-06-2022 09:10-0400 Body height 167.6 cm Mike Angulo MD Work Phone: [facility] 04-06-2022 09:10-0400 Body weight 107.96 kg Mike Angulo MD Work Phone: [facility] 04-06-2022 09:10-0400 Diastolic blood pressure 92 mm[Hg] Mike Angulo MD Work Phone: [facility] 04-06-2022 09:10-0400 Heart rate 74 /min Mike Angulo MD Work Phone: [facility] 04-06-2022 09:10-0400 Respiratory rate 16 /min Mike Angulo MD Work Phone: [facility] 04-06-2022 09:10-0400 SaO2% (BldA) [Mass fraction] 95 % Mike Angulo MD Work Phone: [facility] 04-06-2022 09:10-0400 Systolic blood pressure 138 mm[Hg] Mike Angulo MD Work Phone: [facility] 02-28-2021 10:29-0400 Body height 165.1 cm Logan Haddad Work Phone: [facility] Work Phone: 02-28-2021 10:29-0400 Body mass index (BMI) [Ratio] 35.78 kg/m2 Logan Haddad Work Phone: [facility] Work Phone: 02-28-2021 10:29-0400 Body surface area Derived from formula 2.04 m2 Logan Haddad Work Phone: [facility] Work Phone: 02-28-2021 10:29-0400 Body weight 97.52 kg Logan Haddad Work Phone: [facility] Work Phone: 02-28-2021 10:29-0400 Diastolic blood pressure 84 mm[Hg] Logan Haddad Work Phone: [facility] Work Phone: 02-28-2021 10:29-0400 Systolic blood pressure 124 mm[Hg] Logan Haddad Work Phone: [facility] Work Phone: 02-24-2020 11:11-0400 BMI (Body Mass Index) 33.95 kg/m2 Melinda Son [facility] Work Phone: 02-24-2020 11:11-0400 Body weight 92.53 kg Melinda Son [facility] Work Phone: 02-24-2020 11:11-0400 BP Diastolic 84 mm[Hg] Melinda Son [facility] Work Phone: 02-24-2020 11:11-0400 BP Systolic 128 mm[Hg] Melinda Son [facility] Work Phone: 02-24-2020 11:110400 BSA (Body Surface Area) 1.99 m2 Melinda Adelaida [facility] Work Phone: 02-24-2020 11:110400 Height 165.1 cm Melinda Adelaida [facility] Work Phone: Encounters Encounter Date Encounter Type Care Provider Facility Start: 09-19-2023 Refill Mike Angulo MD Work Phone: Neurology Procedures Date Procedure Procedure Detail Performing Clinician Start: 11-10-2022 Colonoscopy flx dx w /collj spec when pfrmd Travis Frost MD Work Phone: Start: 11-10-2022 Colonoscopy Travis george MD Work Phone: Start: 10-09-2022 Mammography Mike melgar MD Work Phone: Start: 02-24-2020 MG Breast screening Susie raysa Adelaida Start: 02-24-2020 Microscopic observat ion [Identifier] in Cervix by Cyto stain.thin prep Melinda Adelaida Start: 07-12-2017 Lipid 1996 panel - S edis or Plasma Mike Angulo MD Work Phone: Plan of Treatment Date Care Activity Detail Author Start: 11-10-2032 Colonoscopy COLONOSCOPY [facility] Start: 11-10-2032 COLORECTAL CANCER SCREENING COLORECTAL CANCER SCREENING [facility] Start: 11-10-2032 Screening for malignant neoplasm of colon [facility] Start: 02-07-2025 DIABETES SCREEN DIABETES SCREEN [facility] Start: 02-07-2025 Diabetes Screening Diabetes Screening [facility] Start: 03-27-2024 BP CONTROLLED (<130/80) BP CONTROLLED (<130/80) [facility] Start: 11-11-2023 Colonoscopy COLONOSCOPY [facility] Start: 11-11-2023 COLORECTAL CANCER SCREENING COLORECTAL CANCER SCREENING [facility] Start: 10-09-2023 Mammography MAMMOGRAM [facility] Start: 10-09-2023 Screening for malignant neoplasm of breast Mammogram Screening [facility] Start: 06-11-2023 Patient encounter procedure ANNUAL, Provider: Yuni Anthony, Status: Pen, Time: 3:00 PM [facility] Work Phone: Start: 04-13-2023 Covid-19 Vaccine () Covid-19 Vaccine () [facility] Start: 04-13-2023 Influenza vaccination INFLUENZA (#1) [facility] Start: 07-12-2022 Lipid panel Lipid Screening [facility] Start: 07-12-2022 LIPID SCREEN LIPID SCREEN [facility] Start: 04-13-2022 Influenza vaccination INFLUENZA (#1) [facility] Start: 10-28-2021 COVID-19 VACCINE (4 - Booster for Moderna series) COVID-19 VACCINE (4 - Booster for Moderna series) [facility] Start: 08-25-2021 COVID-19 VACCINE (4 - Booster for Moderna series) COVID-19 VACCINE (4 - Booster for Moderna series) [facility] Start: 08-25-2021 COVID-19 VACCINE (4 - Moderna series) COVID-19 VACCINE (4 - Moderna series) [facility] Start: 2020 SHINGRIX VACCINE (1 of 2) SHINGRIX VACCINE (1 of 2) [facility] Start: 11-08-2018 PNEUMOCOCCAL (2 - PCV) PNEUMOCOCCAL (2 - PCV) [facility] Start: 10-23-2018 ANNUAL PCP TEAM CHRONIC DISEASE VISIT ANNUAL PCP TEAM CHRONIC DISEASE VISIT [facility] Start: 10-12-2015 COLOGUARD (FIT-DNA) COLOGUARD (FIT-DNA) [facility] Start: 10-12-2015 Colonoscopy COLONOSCOPY [facility] Start: 10-12-2015 COLORECTAL CANCER SCREENING COLORECTAL CANCER SCREENING [facility] Start: 10-12-[address] COLONOGRAPHY [facility] Start: 10-12-2015 FECAL OCCULT BLOOD FECAL OCCULT BLOOD [facility] Start: 10-12-2015 Screening for malignant neoplasm of colon [facility] Start: 10-12-2015 SIGMOIDOSCOPY SIGMOIDOSCOPY [facility] Start: 2010 Mammography MAMMOGRAM [facility] Start: 2000 HPV TESTING HPV TESTING [facility] Start: 2000 Screening for malignant neoplasm of cervix HPV Testing [facility] Start: 10-12-1991 PAP TESTING PAP TESTING [facility] Start: 10-12-1991 Screening for malignant neoplasm of cervix Pap Testing [facility] Start: 1989 Urine microalbumin profile [facility] Start: 1988 ANNUAL PCP TEAM CHRONIC DISEASE VISIT ANNUAL PCP TEAM CHRONIC DISEASE VISIT [facility] Start: 1988 BP CONTROLLED (<130/80) BP CONTROLLED (<130/80) [facility] Start: 1988 HEPATITIS C SCREENING HEPATITIS C SCREENING [facility] Start: 1988 Hepatitis C screening Hepatitis C Screening [facility] Start: 1988 HIV SCREENING HIV SCREENING [facility] Start: 1988 HIV screening HIV Screening [facility] Start: 1970 HEPATITIS B (1 of 3 - 3-dose series) HEPATITIS B (1 of 3 - 3-dose series) [facility] Start: 1970 Hepatitis B Vaccine (1 of 3 - 3-dose series) Hepatitis B Vaccine (1 of 3 - 3-dose series) [facility] End: 11-07-2023 COLONOSCOPY DIAGNOSTIC COLONOSCOPY DIAGNOSTIC Endoscopy Routine Encounter for screening for malignant neoplasm of colon 1 Occurrences starting 11/06/2022 until 11/07/2023 [facility] Work Phone: Immunizations Immunization Date Immunization Notes Care Provider Mariya eddy 11-08-2017 pneumococcal polysaccharide vaccine, 23 valent Monica Mortensen MD Work Phone: [facility] Payers Date Payer Category Payer Medicare [id number] 2018 Private Health Insurance [id number] 2015 Medicaid [id number] 2015 Medicaid [id number] 1970 Unknown [id number] 1970 Unknown [id number] 1970 Unknown [id number] Unknown Unknown [id number] Social History Date Type Detail Facility Start: 10-22-2017 End: 12-15-2022 Current every day smoker Current every day smoker [facility] Start: 10-22-2017 [facility] Work Phone: End: 08-13-2021 History of tobacco use Cigarette Smoker [facility] Work Phone: Start: 10-22-2017 End: 11-06-2022 Tobacco use and exposure Smokeless tobacco non-user [facility] Work Phone: Start: 02-07-2022 Alcohol intake Current drinke r of alcohol (finding) [facility] Start: 10-22-2017 End: 11-06-2022 Tobacco Comment currently 1 pack every 3 days; patient cutting back for surgery - not ready to quit [facility] Start: 1970 Sex Assigned At Female [facility] Start: 02-26-2022 End: 05-12-2022 Exposure to SARS-CoV-2 (event) Not sure [facility] Start: 11-06-2022 Tobacco smoking stat us FLIS Ex-smoker [facility] End: 08-13-2021 History of tobacco use Current smoker [facility] Start: 11-06-2022 End: 11-22-2022 Alcohol intake Ex-drinker (finding) [facility] Start: 11-06-2022 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 [facility] Start: 11-22-2022 End: 12-15-2022 Tobacco use panel [facility] Adult Depression Screening Assessment 3 [facility] Start: 09-29-2020 Gender identity Identifies as female gender (finding) [facility] Start: 09-29-2020 Sexual orientation Heterosexual (darnell putnam) [facility] NEGATED: Highlighted row - - [facility] Work Phone: Medical Equipment Procedure Code Equipment Code Equipment Origin al Text Equipment Identifier Dates Head V40 36mm +2 .5mm Offset Taper Biolox Delta Femoral Hip - [id number] Start: 11-06-2017 Screw Trident Secur-Fit Torx 6.5mm Titanium 20mm Bone Sterile Acetabular - [id number] Start: 11-06-2017 Shell Trident 50 mm D Hemisphere Acetabular Multihole Hip - [id number] Start: 11-06-2017 Liner 36mm 0d D X3 3.9mm Acetabular Hip - [id number] Start: 11-06-2017 Liner 36mm 0d D X3 3.9mm Acetabular Hip - [id number] Start: 11-06-2017 Stem Accolade 13 0d 2 35mm Offset [id number] 115mm 30mm Femoral Cementless Neck - [id number] Start: 11-06-2017 Head V40 36mm +2 .5mm Offset Taper Biolox Delta Femoral Hip - [id number] Start: 11-06-2017 Functional Status Date Assessment Result Facility NEGATED: Highlighted row Functional performance Functional status health issues are not documented Disease [facility] Work Phone: Mental Status Date Assessment Result Facility NEGATED: Highlighted row Cognitive function [Interpretation] Cognitive status health issues are not documented Disease [facility] Work Phone: Clinical Notes 11-06-2017 to 09-19-2023 Telephone Encounter - Charissa Garrido - 09/19/2023 9:32 AM Mike Lilly MD - 03/27/2023 4:13 PM Mike Corbin MD - 03/27/2023 4:10 PM Go Frost MD - 11/10/2022 1:45 PM EDT Note Date & Type Note Facility 09-19-2023 Miscellaneous Notes Formattin g of this note is different from the original. Physician: Dr. Angulo Call from pharmacy requesting refill. Please E-Scribe Last OV: 03/27/[address] Angulo Future OV: no future appointments scheduled with Dr. Angulo Requested Prescriptions Pending Prescriptions Disp Refills lamoTRIgine (LAMICTAL) 100 mg tablet [Pharmacy Med Name: lamoTRIgine 100MG TABS*] 30 tablet 4 Sig: take 1 tablet by mouth daily Pharmacy Name: [facility] Phone #: [phone] 03/27/2023 ASSESSMENT: No diagnosis found. Vestibular migraine and intractable headache Post traumatic headache Chronic daily headache PLAN: No orders found for this visit on 03/27/23. Lamictal 25 mg for vestibular migraine Follow up visit after trial of lamictal There are no Patient Instructions on file for this visit. documented in this encounter [facility] 08-31-2023 Note HNO ID: [id number] Author: PERCY VARGAS LISW Service: ? Author Type: Hemodialysis Patient Care Specialist Type: Progress Notes Filed: 08/31/2023 14:57 Note Text: GENERAL PSYCHOLOGY Session #: 61 (session count starts after PSYL NEW EVAL visit) Visit Type:The patient consented to a virtual visit and their location was confirmed. SUBJECTIVE: I have communicated my name and active licensure. The patient's identity and physical location were verified at the time of this visit. 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 WILLOW Adamson [facility] 08-17-2023 Note HNO ID: [id number] Author: PERCY VARGAS LISW Service: ? Author Type: Hemodialysis Patient Care Specialist Type: Progress Notes Filed: 08/17/2023 16:24 Note Text: GENERAL PSYCHOLOGY Session #: 60 (session count starts after PSYL NEW EVAL visit) Visit Type:The patient consented to a virtual visit and their location was confirmed. SUBJECTIVE: I have communicated my name and active licensure. The patient's identity and physical location were verified at the time of this visit. Either the patient or their legal assistance representative has been informed of the risks [...] Therapy to self monitoring PROGRESS TO DATE: Skilled Nursing Progress: Progress Short Term Condition: Regressed GOALS/OBJECTIVES/INTERVENTIONS : Patient's primary goal for treatment is to reduce her symptoms of depression Approximately 45 minutes were spent with the patient doing therapy. WILLOW Adamson [facility] 07-27-2023 Note HNO ID: [id number] Author: Percy Vargas LISW Service: ? Author Type: Hemodialysis Patient Care Specialist Type: Progress Notes Filed: 07/27/2023 11:53 AM Note Text: GENERAL PSYCHOLOGY Session #: 59 (session count starts after PSYL [facility] visit) Visit Type:The patient consented to a virtual visit and their location was confirmed. SUBJECTIVE: I have communicated my name and active licensure. The patient's identity and physical location were verified at the time of this visit. Either the patient or their legal assistance representative has been informed of the risks [...] Therapy to self monitoring PROGRESS TO DATE: Skilled Nursing Progress: Progress Short Term Condition: Progress GOALS/OBJECTIVES/INTERVENTIONS : Patient's primary goal for treatment is to reduce her symptoms of depression Approximately 45 minutes were spent with the patient doing therapy. WILLOW Adamson [facility] 07-18-2023 Note O ID: [id number] Author: Percy Vargas LISW Service: ? Author Type: Hemodialysis Patient Care Specialist Type: Progress Notes Filed: 07/18/2023 2:23 PM [...] visit. 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 WILLOW Adamson [facility] 07-13-2023 Note HNO ID: [id number] Author: Percy Vargas LISW Service: ? Author Type: Hemodialysis Patient Care Specialist Type: Progress Notes Filed: 07/13/2023 10:33 AM Note Text: Patient had to cancel appointment due to illness and is rescheduled for next week-no charge [facility] 06-29-2023 Note HNO ID: [id number] Author: Percy Vargas LISW Service: ? Author Type: Hemodialysis Patient Care Specialist Type: Progress Notes Filed: 06/29/2023 3:15 PM [...] visit. 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 WILLOW Adamson [facility] 06-15-2023 Note HNO ID: [id number] Author: Percy Vargas LISW Service: ? Author Type: Hemodialysis Patient Care Specialist Type: Progress Notes Filed: 06/15/2023 1:52 PM [...] visit. Either the patient or their legal assistance representative has been informed of the risks [...] Therapy to self monitoring PROGRESS TO DATE: Skilled Nursing Progress: Progress Short Term Condition: Progress GOALS/OBJECTIVES/INTERVENTIONS : Patient's primary goal for treatment is to reduce her symptoms of depression Approximately 45 minutes were spent with the patient doing therapy. WILLOW Adamson [facility] 06-01-2023 Note HNO ID: [id number] Author: Percy Vargas LISW Service: ? Author Type: Hemodialysis Patient Care Specialist Type: Progress Notes Filed: 06/01/2023 4:05 PM [...] visit. 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 WILLOW Adamson [facility] 05-11-2023 Note HNO ID: [id number] Author: Wabeke, Percy, CAN DRAGGER Service: ? Author Type: Hemodialysis Patient Care Specialist Type: Progress Notes Filed: 05/11/2023 11:33 AM [...] visit. Either the patient or their legal assistance representative has been informed of the risks [...] Therapy to self monitoring PROGRESS TO DATE: Skilled Nursing Progress: Progress Short Term Condition: Progress GOALS/OBJECTIVES/INTERVENTIONS : Patient's primary goal for treatment is to reduce her symptoms of depression Approximately 45 minutes were spent with the patient doing therapy. WILLOW Adamson [facility] 04-27-2023 Note HNO ID: [id number] Author: Percy Vargas LISW Service: ? Author Type: Hemodialysis Patient Care Specialist Type: Progress Notes Filed: 04/27/2023 2:02 PM [...] visit. 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 WILLOW Adamson [facility] 04-17-2023 Note HNO ID: [id number] Author: Percy Vargas LISW Service: ? Author Type: Hemodialysis Patient Care Specialist Type: Progress Notes Filed: 04/17/2023 2:36 PM [...] visit. Either the patient or their legal assistance representative has been informed of the risks [...] Therapy to self monitoring PROGRESS TO DATE: Skilled Nursing Progress: Progress Short Term Condition: Regressed GOALS/OBJECTIVES/INTERVENTIONS : Patient's primary goal for treatment is to reduce her symptoms of depression Approximately 45 minutes were spent with the patient doing therapy. WILLOW Adamson [facility] 03-27-2023 Note HNO ID: [id number] Author: Mike Angulo MD Service: ? Author [...] least 6-8, 8 oz glasses of water/d [facility] 03-27-2023 Note HNO ID: [id number] Author: Mike Angulo MD Service: ? Author [...] by mouth once (more content not included)... [facility] 03-27-2023 History of Presen t illness Narrative VESTIBULAR MIGRIANEThis note was created using ZilloPayriter. Subjective Bruno Casanova is a 52 year [...] the date of the service which included itpb-qh-agim patient care, completing clinical documentation, obtaining and/or reviewing separately obtained history, performing a medically appropriate examination, counseling and educating the patient/family/caregiver, and ordering medications, tests, or procedures Mike Anuglo MD documented in this encounter [facility] 03-16-2023 Note HNO ID: [id number] Author: Percy Vargas LISW Service: ? Author Type: Hemodialysis Patient Care Specialist Type: Progress Notes Filed: 03/16/2023 3:55 PM [...] visit. Either the patient or their legal assistance representative has been informed of the risks [...] Therapy to self monitoring PROGRESS TO DATE: Skilled Nursing Progress: Progress Short Term Condition: Regressed GOALS/OBJECTIVES/INTERVENTIONS : Patient's primary goal for treatment is to reduce her symptoms of depression Approximately 45 minutes were spent with the patient doing therapy. WILLOW Adamson [facility] 03-09-2023 Note HNO ID: [id number] Author: Percy Vargas LISW Service: ? Author Type: Hemodialysis Patient Care Specialist Type: Progress Notes Filed: 03/09/2023 8:03 AM Note Text: Appointment cancelled-no charge [facility] 02-23-2023 Note HNO ID: [id number] Author: ZACHARY Adamson Service: ? Author Type: Hemodialysis Patient Care Specialist Type: Progress Notes Filed: 02/23/2023 2:59 PM [...] visit. 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 WILLOW Adamson [facility] 02-02-2023 Note HNO ID: [id number] Author: ZACHARY Adamson Service: ? Author Type: Hemodialysis Patient Care Specialist Type: Progress Notes Filed: 02/02/2023 3:49 PM [...] visit. Either the patient or their legal assistance representative has been informed of the risks [...] Therapy to self monitoring PROGRESS TO DATE: Skilled Nursing Progress: Progress Short Term Condition: Progress GOALS/OBJECTIVES/INTERVENTIONS : Patient's primary goal for treatment is to reduce her symptoms of depression Approximately 45 minutes were spent with the patient doing therapy. WILLOW Adamson [facility] 01-25-2023 Miscellaneous Notes Formattin g of this note might be different from the original. Order pended Last VV 09/14/22 Next OV - to be scheduled Routing to provider for review Pharmacy verified in [facility] Patient has been identified by name and [...] Eunice Gilliland Pss documented in this encounter [facility] 01-19-2023 Note HNO ID: [id number] Author: ZACHARY Adamson Service: ? Author Type: Hemodialysis Patient Care Specialist Type: Progress Notes Filed: 01/19/2023 11:22 AM Note Text: Patient was a no show for appointment [facility] 01-05-2023 Note HNO ID: [id number] Author: ZACHARY Adamson Service: ? Author Type: Hemodialysis Patient Care Specialist Type: Progress Notes Filed: 01/05/2023 12:14 PM [...] visit. 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 WILLOW Adamson [facility] 12-15-2022 Note HNO ID: [id number] Author: ZACHARY Adamson Service: ? Author Type: Hemodialysis Patient Care Specialist Type: Progress Notes Filed: 12/15/2022 4:05 PM [...] visit. Either the patient or their legal assistance representative has been informed of the risks [...] Therapy to self monitoring PROGRESS TO DATE: Skilled Nursing Progress: Progress Short Term Condition: Regressed GOALS/OBJECTIVES/INTERVENTIONS : Patient's primary goal for treatment is to reduce her symptoms of depression Approximately 45 minutes were spent with the patient doing therapy. WILLOW Adamson [facility] 12-01-2022 Note HNO ID: [id number] Author: ZACHARY Adamson Service: ? Author Type: Hemodialysis Patient Care Specialist Type: Progress Notes Filed: 12/01/2022 12:16 PM [...] visit. 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 WILLOW Adamson [facility] 11-22-2022 Miscellaneous Notes Formattin g of this note might be different from the original. [employer] message sent to patient with Arleen's message. Health maintenance and surgical history updated. [...] for colonoscopy preferred by Dr. Frost in [place] on 11/10/2022. Patient stated they have been out of town and was not able to call sooner for an update. Patient asking if a follow up is needed. Please advise Thank you [place] [employer] 11/10/2022 COLON MARIN documented in this encounter [facility] 11-17-2022 Note HNO ID: [id number] Author: ZACHARY Adamson Service: ? Author Type: Hemodialysis Patient Care Specialist Type: Progress Notes Filed: 11/17/2022 4:36 PM Note Text: GENERAL PSYCHOLOGY Session #: 44 (session count starts after PSYL NEW EVAL visit) SUBJECTIVE: I have communicated my name and active licensure. The patient's identity and physical location were verified at the time of this visit. 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 WILLOW Adamson [facility] 11-10-2022 History and physical note Images from the original note were not included. HISTORY AND PHYSICAL Bruno Vallejod 1970 REFERRING PHYSICIAN: No ref. provider found [...] entered by the nurse and reviewed by mt Nursing Notes: Kelly Chaves LPN 11/06/2022 1:39 [...] TIME: 12:39 PM documented in this encounter [facility] 11-06-2022 Note HNO ID: [id number] Author: Travis Frost MD Service: ? Author Type: Physician Type: Progress Notes Filed: 11/06/2022 1:51 PM Note Text: HISTORY AND PHYSICAL Bruno Vallejod 1970 REFERRING PHYSICIAN: No ref. provider found [...] Mother Heart disea (more content not included)... [facility] 11-06-2022 History of Presen t illness Narrative [...] entered by the nurse and reviewed by mt Nursing Notes: Kelly Chaves LPN 11/06/2022 1:39 [...] Frost III, MD documented in this encounter [facility] 11-06-2022 Nurse Note REVIEW OF SYSTEMS: [...] Kelly Chaves LPN documented in this encounter [facility] 11-06-2022 Instructions Travis Frost MD - [...] If you do not have a responsible freight delivery driver (family member or friend) with you [...] exam. 2 07/2019 documented in this encounter [facility] 11-03-2022 Miscellaneous Notes Formattin g of this note might be different from the original. Called patient to schedule colonoscopy, she has a new GI Doctor. Rhina Tee MA documented in this encounter [facility] 10-13-2022 Note HNO ID: [id number] Author: ZACHARY Adamson Service: ? Author Type: Hemodialysis Patient Care Specialist Type: Progress Notes Filed: 10/13/2022 2:57 PM Note Text: GENERAL PSYCHOLOGY Session #: 43 (session count starts after PSYL NEW EVAL visit) SUBJECTIVE: This Team Access Model visit is a virtual encounter. It required patient-provider interaction for the medical decision making as documented below. Patient gave consent for virtual visit Confirmed patient is in the [facility] and this provider is in the [facility]. 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 WILLOW Adamson [facility] 10-02-2022 Miscellaneous Notes Addended by: MIKE ANGULO on: 10/02/2022 06:15 PM Modules accepted: Level of Service documented in this encounter [facility] 09-29-2022 Note HNO ID: [id number] Author: ZACHARY Adamson Service: ? Author Type: Hemodialysis Patient Care Specialist Type: Progress Notes Filed: 09/29/2022 2:43 PM Note Text: GENERAL PSYCHOLOGY Session #: 42 (session count starts after PSYL NEW EVAL visit) SUBJECTIVE: This Team Access Model visit is a virtual encounter. It required patient-provider interaction for the medical decision making as documented below. Patient gave consent for virtual visit Confirmed patient is in the [facility] and this provider is in the [facility]. PATIENT DATA: Generalized Anxiety Disorder Scale [...] Therapy to self monitoring PROGRESS TO DATE: Skilled Nursing Progress: Progress Short Term Condition: Progress GOALS/OBJECTIVES/INTERVENTIONS : Patient's primary goal for treatment is to reduce her symptoms of depression Approximately 45 minutes were spent with the patient doing therapy. WILLOW Adamson [facility] 09-15-2022 Note HNO ID: [id number] Author: ZACHARY Adamson Service: ? Author Type: Hemodialysis Patient Care Specialist Type: Progress Notes Filed: 09/15/2022 3:59 PM Note Text: GENERAL PSYCHOLOGY Session #: 41 (session count starts after PSYL NEW EVAL visit) SUBJECTIVE: This Team Access Model visit is a virtual encounter. It required patient-provider interaction for the medical decision making as documented below. Patient gave consent for virtual visit Confirmed patient is in the [facility] and this provider is in the [facility]. PATIENT DATA: Generalized Anxiety Disorder Scale [...] Therapy to self monitoring PROGRESS TO DATE: Skilled Nursing Progress: Progress Short Term Condition: Progress GOALS/OBJECTIVES/INTERVENTIONS : Patient's primary goal for treatment is to reduce her symptoms of depression Approximately 45 minutes were spent with the patient doing therapy. WILLOW Adamson [facility] 09-14-2022 Note HNO ID: [id number] Author: Mike Angulo MD Service: ? Author [...] person, place an (more content not included)... [facility] 09-14-2022 Instructions Mike Angulo MD - 09/14/2022 4:37 PM EST Increasing Lamictal 50 mg for the first week Then 100 mg every night documented in this encounter [facility] 09-14-2022 History of Presen t illness [...] Mike Angulo MD documented in this encounter [facility] 06-09-2022 Miscellaneous Notes Formattin g of this note might be different from the original. This refill request is already pended to provider in previous encounter. CHANTAL Decker, RN June 09, 2022 9:01 AM documented in this encounter [facility] 06-08-2022 Miscellaneous Notes Formattin g of this note is different from the original. Provider: Dr. Angulo patient requesting refill via [employer] . Please E-Scribe Last OV: 04-06-22 with [...] patient. Melody Reed documented in this encounter [facility] 04-06-2022 History of Presen t illness [...] the date of the service which included [id number] patient care, completing clinical documentation, obtaining and/or reviewing separately obtained history, performing a medically appropriate examination, counseling and educating the patient/family/caregiver, and ordering medications, tests, or procedures Mike Angulo MD documented in this encounter [facility] 02-07-2022 Instructions Cirilo Gotti - 02/07/2022 12:14 PM EDT 1. Increase Topamax dosage for migraines. Hold until completing oral steroids. 2. Order for blood work placed 3. Establish with migraine neurologist. . documented in this encounter [facility] 02-07-2022 History of Presen t illness Narrative Staff Physician Comments: I testify that I personally interviewed and examined the patient. I confirm the below exam findings, assessment and plan were my own and resident/TREE SURGEON/scribe was acting as SCRIBE. Monica Mortensen MD, FACS Section Head, Otology/Neurotology/Skull Base Surgery Gravedigger, Cochlear Implant Program Head and Neck [place] [facility] History of Present Illness Ms. BRUNO [...] of right tympanic membrane (R26.89) Imbalance (Z79.899) skilled nursing current use of diuretic New drop attack, [...] 4 - Moderate documented in this encounter [facility] 02-10-2021 History of Presen t illness [...] her colonoscopy planned for the near future. [facility] Work Phone: 01-12-2020 History of Presen [...] her right foot due to a fracture. [facility] Work Phone: documented as of this encounter (statuses as of 04/03/2022) [address]27-[address] History of Past illness Narrative* Problem Noted Date Resolved Date S/P total hip arthroplasty 11/06/201711/08 documented as of this encounter (statuses as of 05/14/2022) [address] History of Past illness Narrative* Problem Noted Date Resolved Date S/P total hip arthroplasty 11/06/201711/08 documented as of this encounter (statuses as of 06/11/2022) [address] History of Past illness Narrative* Problem Noted Date Resolved Date S/P total hip arthroplasty 11/06/201711/08 documented as of this encounter (statuses as of 06/11/2022) [address] History of Past illness Narrative* Problem Noted Date Resolved Date S/P total hip arthroplasty 11/06/201711/08 documented as of this encounter (statuses as of 10/03/2022) [address] History of Past illness Narrative* Problem Noted Date Resolved Date S/P total hip arthroplasty 11/06/201711/08 documented as of this encounter (statuses as of 11/03/2022) [address] History of Past illness Narrative* Problem Noted Date Resolved Date S/P total hip arthroplasty 11/06/201711/08 documented as of this encounter (statuses as of 11/06/2022) [address] History of Past illness Narrative* Problem Noted Date Resolved Date S/P total hip arthroplasty 11/06/201711/08 documented as of this encounter (statuses as of 11/11/2022) [place] [address]27-2018 History of Past illness Narrative* Problem Noted Date Resolved Date S/P total hip arthroplasty 11/06/201711/08 documented as of this encounter (statuses as of 11/23/2022) [facility] History of Past illness Narrative* Problem Noted Date Resolved Date S/P total hip arthroplasty 11/06/201711/08 documented as of this encounter (statuses as of 01/25/2023) [place] [address] History of Past illness Narrative* Problem Noted Date Diagnosed Date Resolved Date S/P total hip arthroplasty 11/06/2017 0 11/08/2017 documented as of this encounter (statuses as of 03/28/2023) [facility] History of Past illness Narrative* Problem Noted Date Diagnosed Date Resolved Date S/P total hip arthroplasty 11/06/2017 0 11/08/2017 documented as of this encounter (statuses as of 09/21/2023) [facility] Diagnosis Meniere's disease of right ear- Primary Meniere's disease, unspecified Vestibular migraine Perforation of right tympanic membrane Perforation of tympanic membrane, unspecified Imbalance 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 [facility] Diagnosis Vestibular migraine- Primary Syncope and collapse [facility] Diagnosis Vestibular migraine- Primary [facility] Diagnosis Encounter for screening for malignant neoplasm of colon- Primary Special screening for malignant neoplasms, colon [facility] Diagnosis Encounter for screening colonoscopy- Primary Special screening for malignant neoplasms, colon Encounter for screening for malignant neoplasm of colon Special screening for malignant neoplasms, colon [facility] Diagnosis Abdominal migraine, intractable- Primary Variants of migraine, not elsewhere classified, with intractable migraine, so stated, without mention of status migrainosus [facility] Outpatient Procedure (Routine) - Closed Specialty Diagnoses / Procedures Referred By America watson [facility] Diagnoses Vestibular migraine Syncope and collapse Procedures EPIL EEG ROUTINE ELECTROENCEPHALOGRAM REC COMA/SLEEP ONLY Mike Angulo MD [address] [place] [address] [facility] [place] [address] [place] [address] Referral ID Status Reason Start Date Expiration Date V isits Requested Visits Authorized [id number] Closed Auto-Generate d Referral 04/06/2022 04/06/2023 1 1 [facility] for referral (narrative)* Outpatient Procedure (Routine) - Authorized Specialty Diagnoses / Procedures Referred By America watson Referred To Contact Diagnoses Encounter for screening for malignant neoplasm of colon Procedures COLONOSCOPY DIAGNOSTIC COLONOSCOPY FLX DX W/COLLJ SPEC WHEN Travis Isaac MD [address] [place] [address] [facility] [address] [place] [address] Referral ID Status Reason Start Date Expiration Date Visits Requested Visits Authorized [id number] Authorized Auto-Generat ed Referral 11/06/2022 11/07/2023 1 1 [facility] for referral (narrative)* Outpatient Procedure (Routine) - Closed Specialty Diagnoses / Procedures Referred By America watson Referred To Contact Diagnoses Encounter for screening for malignant neoplasm of colon Procedures COLONOSCOPY DIAGNOSTIC COLONOSCOPY FLX DX W/COLLJ SPEC WHEN Travis Isaac MD [address] [facility] [place] [address] [facility] [address] [place] [address] Referral ID Status Reason Start Date Expiration Date V isits Requested Visits Authorized [id number] Closed Auto-Generate d Referral 11/06/2022 11/07/2023 1 1 [facility] for visit Narrative* Outpatient Procedure (Routine) - Closed Specialty Diagnoses / Procedures Referred By Contac t Referred To Contact Diagnoses Encounter for screening for malignant neoplasm of colon Procedures COLONOSCOPY DIAGNOSTIC COLONOSCOPY FLX DX W/COLLJ SPEC WHEN PFRMD Travis Frost MD [address] [place] [address] [facility] [address] [place] [address] Referral ID Status Reason Start Date Expiration Date V isits Requested Visits Authorized [id number] Closed Auto-Generate d Referral 11/06/2022 11/07/2023 1 1 [facility] Family History Mother Name Dates Details Family history of [...] Father(V18.0, Z83.3) Status:Active Summary Purpose Advance Directives Documents on File Type Date Recorded 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 cbyearly, no data recovery planner. cbyearly, no data recovery planner. cb Reason for Referral Specialty Diagnoses / Procedures Referred By America t Referred To Contact Neurology Diagnoses Meniere's disease of right ear Vestibular migraine Procedures CONSULT TO NEUROLOGY OFFICE/OUTPATIENT [facility] 60-74 MINUTES Monica Mortensen MD [address] [place] [address] Referral ID Status Reason Start Date Expiration Date Visits Requested Visits Authorized [id number] Authorized PCP Requested Referral 02/07/2022 02/07/2023 1 [...] DATE CREATED AUTHOR AUTHOR'S ORGANIZ ATION 03/25/2021 [facility] DATE CREATED AUTHOR AUTHOR'S ORGANIZ ATION 09/22/2021 [facility] DATE CREATED AUTHOR AUTHOR'S ORGANIZ ATION 06/06/2022 [facility] DATE CREATED AUTHOR AUTHOR'S ORGANIZ ATION 10/15/2022 [facility] [place] DATE CREATED AUTHOR AUTHOR'S ORGANIZ ATION 11/15/2022 [facility] DATE CREATED AUTHOR AUTHOR'S ORGANIZ ATION 09/01/2023 [facility] Source Comments (unrecognize d section and content) In the event this informatio n is protected by the Federal Confidentiality of Alcohol and Drug Abuse Patient Records regulations: The Federal rules restrict any use of the information to criminally investigate or prosecute any alcohol or drug abuse patient.[facility] the event this information is protected by the Federal Confidentiality of Alcohol and Drug Abuse Patient Records regulations: The Federal rules restrict any use of the information to criminally investigate or prosecute any alcohol or drug abuse patient.[facility] the event this information is protected by the Federal Confidentiality of Alcohol and Drug Abuse Patient Records regulations: The Federal rules restrict any use of the information to criminally investigate or prosecute any alcohol or drug abuse patient.[facility] the event this information is protected by the Federal Confidentiality of Alcohol and Drug Abuse Patient Records regulations: The Federal rules restrict any use of the information to criminally investigate or prosecute any alcohol or drug abuse patient.[facility] the event this information is protected by the Federal Confidentiality of Alcohol and Drug Abuse Patient Records regulations: The Federal rules restrict any use of the information to criminally investigate or prosecute any alcohol or drug abuse patient.[facility] the event this information is protected by the Federal Confidentiality of Alcohol and Drug Abuse Patient Records regulations: The Federal rules restrict any use of the information to criminally investigate or prosecute any alcohol or drug abuse patient.[facility] the event this information is protected by the Federal Confidentiality of Alcohol and Drug Abuse Patient Records regulations: The Federal rules restrict any use of the information to criminally investigate or prosecute any alcohol or drug abuse patient.[facility] the event this information is protected by the Federal Confidentiality of Alcohol and Drug Abuse Patient Records regulations: The Federal rules restrict any use of the information to criminally investigate or prosecute any alcohol or drug abuse patient.[facility] the event this information is protected by the Federal Confidentiality of Alcohol and Drug Abuse Patient Records regulations: The Federal rules restrict any use of the information to criminally investigate or prosecute any alcohol or drug abuse patient.[facility] the event this information is protected by the Federal Confidentiality of Alcohol and Drug Abuse Patient Records regulations: The Federal rules restrict any use of the information to criminally investigate or prosecute any alcohol or drug abuse patient.[facility] the event this information is protected by the Federal Confidentiality of Alcohol and Drug Abuse Patient Records regulations: The Federal rules restrict any use of the information to criminally investigate or prosecute any alcohol or drug abuse patient.[facility] the event this information is protected by the Federal Confidentiality of Alcohol and Drug Abuse Patient Records regulations: The Federal rules restrict any use of the information to criminally investigate or prosecute any alcohol or drug abuse patient.[facility] Reason for Visit (unrecogniz ed section and content) Reason Comments Consult Menieres disease of right ear, vestibular migraines Specialty Diagnoses / Procedures Referred By America watson Referred To Contact Neurology Diagnoses Meniere's disease of right ear Vestibular migraine Procedures CONSULT TO NEUROLOGY OFFICE/OUTPATIENT [facility] 60-74 MINUTES Monica Mortensen MD [address] [place] [address] Referral ID Status Reason Start Date Expiration Date V isits Requested Visits Authorized [id number] Closed PCP Requested Referral 02/07/2022 02/07/2023 1 1 Reason Comments Refill Request Reason Onset Date Comments Refill Request 06/08/2022 Reason Comments Follow Up Reason Comments mv november Reason Comments Consult colonoscopy Reason Comments 11/10/2022 [place] Reason Onset Date Comments Refill Request 01/25/2023 Care Teams (unrecognized sec tion and content) Emulsion Operator Relationship Specialty [place] [address] [place] [address] PCP - General 06/04/09 Emulsion Operator Relationship Specialty [place] [address] [place] [address] PCP - General 06/04/09 Emulsion Operator Relationship Specialty [place] [address] [place] [address] PCP - General 06/04/09 Emulsion Operator Relationship Specialty [place] [address] [place] [address] PCP - General 06/04/09 Emulsion Operator Relationship Specialty [place] [address] [place] [address] PCP - General 06/04/09 Emulsion Operator Relationship Specialty [place] [address] [place] [address] PCP - General 06/04/09 Emulsion Operator Relationship Specialty [place] [address] [place] [address] PCP - General 06/04/09 Emulsion Operator Relationship Specialty [place] [address] [place] [address] PCP - General 06/04/09 Emulsion Operator Relationship Specialty [place] [address] [place] [address] PCP - General 06/04/09 Emulsion Operator Relationship Specialty Start Date End Date Logan Haddad MD [facility] [place] [address] PCP - General 06/04/09 FOR RECORDS PERTAINING [...] BE BASED ON THE PRIMARY CLINICAL RECORDS. [facility] [employer] [facility]. provides no warranty or guarantee of the accuracy or completeness of information in this document.
[2023-09-25 06:39] LABS: Absolute Lymphocyte Count 2.25 X10^3/uL (0.83-4.51); Absolute Neutrophil Count 5.5 X10^3/uL (2.0-7.7); Basophil# 0.08 X10^3/uL; Basophil% 0.9 % (0-1); Eosinophil# 0.35 X10^3/uL; Eosinophils% 3.9 % (0-5); Hemoglobin 10.7 g/dL (12.0-15.0); Lymphocyte # 2.25 X10^3/ul (0.83-4.51); Lymphocyte % 25.2 % (19-41); Mean Corp Hgb Conc 30.6 g/dL (32-36); Mean Corpuscular Hgb 30.1 pg (27.0-32.0); Mean Corpuscular Volume 98.6 fL (81-99); Mean Platelet Vol. 9.4 fl (6.2-12.0); Monocyte# 0.71 X10^3/uL; Monocyte% 7.9 % (0-10); NRBC Flagged by Analyzer 0 % (0-5); Neutrophil # 5.52 X10^3/uL (2.7-7.7); Neutrophil % 61.8 % (47-70); Platelet Count 435 K/mm3 (150-450); RBC Distribution Width CV 16.3 % (11.6-14.6); RBC Distribution Width SD 59.5 fl (35.1-43.9); Red Blood Count 3.55 M/mm3 (4.2-5.4); White Blood Count 8.9 K/mm3 (4.4-11.0)
[2023-09-25 06:56] LABS: International Normalized Ratio 1.1; Prothrombin Time (Protime)PT. 13.7 SECONDS (11.7-14.9)
[2023-09-25 06:57] LABS: Anion Gap 6 (5-15); BUN 24 mg/dL (7-18); BUN/Creat Ratio 27.4 RATIO (10-20); Calcium,Total 9.1 mg/dL (8.5-10.1); Chloride 113 mmol/L (98-107); Creatinine, Serum 0.88 mg/dL (0.55-1.02); EST Glomerular Filtration Rate 72 mL/min (>60); Est Glom Filt Rate - Afr Amer 87 mL/min (>60); Estimated Creatinine Clearance 88.92 ml/min; Glucose 105 mg/dL (74-106); Partial Thromboplast Time 27.7 Seconds (24.1-36.2); Potassium 4.2 mmol/L (3.5-5.1); Sodium Level 146 mmol/L (136-145); Troponin-I HS 7 pg/mL (3.0-54.0)
[2023-09-25] MEDS: 0.9% Normal Saline (1000mL) 1,000 ML 999 ML IV (07:33)
[2023-09-25 10:22] LABS: Amphetamine Urine VISTA NEGATIVE (<1000 ng/mL); Barbiturate Urine VISTA NEGATIVE (< 200 ng/mL); Benzodiazepine Urine VISTA POSITIVE (< 200 ng/mL); Cocaine Urine VISTA NEGATIVE (< 300 ng/mL); Ecstacy Urine VISTA NEGATIVE (< 500 ng/mL); Methadone Urine VISTA NEGATIVE (< 300 ng/mL); PCP Urine VISTA NEGATIVE (< 25 ng/mL); THC Urine VISTA NEGATIVE (< 50 ng/mL); Vista UDS pH Range 5
[2023-09-25 11:23] LABS: Bacteria 0 SEEN /hpf (None Seen); Mucous, Urine 0 SEEN /hpf (<or=2+); Red Blood Cells-Urine 0 SEEN /hpf (0-5); White Blood Cells 0 SEEN /hpf (0-5)
[2023-09-25 11:39] LABS: Color, Urine Yellow (Yellow); Glucose, Dipstick Normal (Normal); Ketone-Dipstick Negative (Negative); Leukocyte Esterase-Dipstick Negative /ul (Negative); Nitrite-Dipstick Negative (Negative); Occult Blood-Urine Negative /ul (Negative); Protein-Dipstick 30 mg/dl (Negative); Urine Bilirubin Dipstick Negative (Negative); Urine Clarity Clear (Clear); Urine Urobilinogen Normal (Normal)
[2023-09-25 11:41] LABS: Squamous Epithelial Cells - UA 0-5 SEEN /hpf (5-10)
== END 2023-09-25 12:14 ==
PROVIDERS: Emergency Provider Emergency Medicine; Visit Provider Emergency Medicine
DX: R41.82 Altered mental status, unspecified (principal); E87.0 Hyperosmolality and hypernatremia; E87.8 Other disorders of electrolyte and fluid balance, not elsewhere classified; E86.0 Dehydration; M54.9 Dorsalgia, unspecified; M79.604 Pain in right leg; K21.9 Gastro-esophageal reflux disease without esophagitis; F17.290 Nicotine dependence, other tobacco product, uncomplicated; Z79.82 Long term (current) use of aspirin; Z79.890 Hormone replacement therapy; Z79.899 Other long term (current) drug therapy; Z98.1 Arthrodesis status
CPT/HCPCS: 70450; 70496; 70498; 71045; 80048; 80307; 81001; 84484; 85025; 85610; 85730; 93005; 96360; 99285; J7030; Q9967; A4216

== ENCOUNTER → 2023-10-23 | Outpatient (CLI) | payer MEDICARE, MEDICAID, SELFPAY ==
[2023-10-23 16:26] LABS: Amphetamine Urine VISTA NEGATIVE (<1000 ng/mL); Barbiturate Urine VISTA NEGATIVE (< 200 ng/mL); Benzodiazepine Urine VISTA POSITIVE (< 200 ng/mL); Cocaine Urine VISTA NEGATIVE (< 300 ng/mL); Ecstacy Urine VISTA POSITIVE (< 500 ng/mL); Methadone Urine VISTA NEGATIVE (< 300 ng/mL); PCP Urine VISTA NEGATIVE (< 25 ng/mL); THC Urine VISTA POSITIVE (< 50 ng/mL); Vista UDS pH Range 4
== END | disposition home or self-care (01) ==
LOC: LAB 11:59
PROVIDERS: Referring Provider Anesthesiology Pain Medicine; Visit Provider Anesthesiology Pain Medicine
DX: F11.20 Opioid dependence, uncomplicated (principal)
CPT/HCPCS: 80307

== ENCOUNTER 2023-11-14 12:11 | Emergency (ER) | payer MEDICARE, MEDICAID, SELFPAY ==
[2023-11-14 12:11] VITALS: BP 151/92; PULSE 82; RESP 16; TEMP 36.6; O2SAT 97; BMI 38.3
--- NOTE | 2023-11-14 13:18 | EDS_ITS ---
HPI History of Present Illness Chief Complaint: Back Narrative Narrative: Patient is a 53-year-old female who is presenting with EMS secondary to lower lumbar and left lower back pain. Patient arrived by EMS. Patient lives by herself, normally walks with her 2 feet. Patient stated that yesterday she went into the shower around 12 PM. Patient had no pain when she went into the shower. Patient had no injury, no fall, no twisting action that she is aware of. When patient came out of the shower, she had severe lower back and left lower lumbar pain. Patient stated she is having severe pain walking on her left leg. Patient has no saddle anesthesia or cauda equina. Patient takes multiple medications at home for chronic pain. Patient has a Suboxone patch, she has Zanaflex, tramadol, anti-inflammatories and a pain stimulator. Patient is due to have right hip replacement on December 03. Patient just had a 4 disc fusion on August of this year by Dr. Lipscomb. Patient has no abdominal pain, nausea or vomiting. Patient is tearful secondary to pain. Patient is taking her medi cation yesterday, last evening and today with little relief. Patient came in by EMS secondary to pain. No fever, chills. No other acute complaints. [facility] Medical History Acute maxillary sinusitis, unspecified Ambulates with cane Anemia Anxiety Arthritis Back problem Depression Dietary restriction Easy bruising Former smoker Gastric reflux Hearing problem History of edema History of pain when walking History of ulceration Hives Hypokalemia IBS (irritable bowel syndrome) Injury of head and neck Leg cramps Loss of hearing Menieres disease Migraine headache Neuropathy Osteoarthritis Pain Pneumonia Seasonal allergies Thyroid disease Ulcer Vertigo Vision problem Vitamin deficiency Wears glasses Home Medications celecoxib 200 mg capsule 200 mg PO DAILY PAIN 12/27/16 [History Last Taken 09/02/23] amiloride 5 mg tablet 1 tab PO DAILY MENERIES 03/27/20 [History Last Taken 09/02/23] omeprazole 40 mg capsule,delayed release 40 mg PO DAILY PER 08/17/21 [History Last Taken 09/12/23 08:00] ondansetron HCl 4 mg tablet 4 mg PO Q8H PRN NAUSEA 08/17/21 [History Last Taken Unknown] topiramate 100 mg tablet 100 mg PO BID MIGRAINES 08/17/21 [History Last Taken 09/12/23 08:00] fluticasone propionate 50 mcg/actuation nasal spray,suspension 2 spray DAILY PRN ALLERGIES 10/21/21 [History Last Taken Unknown] venlafaxine 75 mg capsule,extended release 24 hr (Effexor XR) 75 mg PO DAILY PER DR 12/27/21 [History Last Taken 09/12/23 08:00] rosuvastatin 10 mg tablet 10 mg PO DAILY PER ORDNatalia 01/24/23 [History Last Taken 09/12/23] levothyroxine 88 mcg tablet (Levoxyl) 88 mcg PO DAILY Thyroid 02/20/23 [History Last Taken 09/12/23 05:00] potassium chloride 20 mEq tablet,extended release 60 meq PO DAILY PER DR 02/20/23 [History Last Taken 09/02/23] triamterene 37.5 mg-hydrochlorothiazide 25 mg tablet 1 tab PO DAILY PER DR 02/20/23 [History Last Taken 09/02/23] cetirizine 10 mg tablet (Zyrtec) 10 mg PO DAILY PRN allergy symptoms 03/08/23 [History Last Taken 09/02/23] lamotrigine 100 mg tablet 100 mg PO DAILY PER DR 03/08/23 [History Last Taken 09/12/23 08:00] meclizine 25 mg tablet 25 mg PO TID PRN dizziness #20 tabs 05/14/23 [Rx Last Taken 09/04/23] cholecalciferol (vitamin D3) 25 mcg (1,000 unit) capsule (Vitamin D3) 25 mcg PO DAILY Supplement 08/20/23 [History Last Taken 09/02/23] multivitamin (Daily Multi-Vitamin tablet) 1 tab PO DAILY PER DR 08/20/23 [History Last Taken 09/02/23] acetaminophen 500 mg tablet 1,000 mg (2 x 500 mg) PO Q8 Pain #0 tabs 09/12/23 [Rx Last Taken 09/12/23 14:15] aspirin 325 mg tablet 325 mg PO BREAKFAST Heart #0 tabs 09/12/23 [Rx Last Taken 09/11/23] sennosides 8.6 mg-docusate sodium 50 mg tablet (Stool Softener-Stimulant Laxative) 2 tab PO BID Constipation #0 tabs 09/12/23 [Rx Last Taken 09/12/23 07:55] bisacodyl 5 mg tablet,delayed release 10 mg (2 x 5 mg) PO DAILY 30 days #60 tabs 09/24/23 [Rx Last Taken Unknown] doxepin 25 mg capsule 25 mg PO QHS 30 days #30 caps 09/24/23 [Rx Last Taken Unknown] gabapentin 600 mg tablet 600 mg PO 4X/DAY 30 days #120 tabs 09/24/23 [Rx Last Taken Unknown] lidocaine 5 % topical patch 2 patch topical DAILY 30 days #60 ea 09/24/23 [Rx Last Taken Unknown] diazepam 5 mg tablet 10 mg PO 4X/DAY PRN Spasms 09/25/23 [History Last Taken Unknown] oxycodone 5 mg tablet 5 - 10 mg PO Q4H PRN Pain Score 4-10 09/25/23 [History Last Taken Unknown] Allergy/AdvReac Type Severity Reaction Status Date / Time shellfish derived Allergy Severe vomitting Verified 11/14/23 12:12 Penicillins Allergy Hives Verified 11/14/23 12:12 citric acid AdvReac Severe wears dowm Verified 11/14/23 12:12 linning of mouth duloxetine [From Cymbalta] AdvReac Intermediate Other Verified 11/14/23 12:12 gluten AdvReac Intermediate stomach Verified 11/14/23 12:12 discomfort Family History Other Alcohol abuse Anxiety Arthritis Autoimmune disease Bowel disease Colon cancer Depression Diabetes Heart disease High cholesterol Hypertension Mental disorder Psychiatric care Severe allergic reaction Thyroid disorder Surgical History H/O total hip arthroplasty S/P insertion of spinal cord stimulator Social History household members: none Smoking Status: Current every day smoker tobacco type: e-cigarettes alcohol intake: former year quit: 2015 substance use type: does not use frequency: daily ROS ROS ED ROS Narrative Unless otherwise stated in this report or unable to obtain because of the patient's clinical or mental status as evidenced by medical record, the patient's positive and negative responses for review of systems for constitutional, eyes, ENT, cardiovascular, respiratory, gastrointestinal, neurological, , musculoskeletal, and integument systems and related systems to the presenting problem are either stated in the history of present illness or were not pertinent or were negative for the symptoms and/or complaints related to the presenting medical problem. EXAM Physical Exam Narrative Exam Narrative: vital signs reviewed and patient is not hypoxic. General: The patient appears Moderate distress secondary to lower back pain, left lower lumbar pain, and is tearful. Patient is resting uncomfortably on cart. Not toxic, lethargic, or listless. Skin: Warm, dry, no pallor noted. There is no rash noted. Head: Normocephalic, atraumatic Eye: Normal conjunctiva, no drainage, EOMI. PERRL. Ears, Nose, Mouth, and Throat: oral mucosa is moist. Nares patent. Mouth without vesicles. Cardiovascular: Regular Rate and Rhythm, no murmurs, gallops, or rubs Respiratory: Patient is in no distress, no accessory muscle use, lungs are clear to auscultation, no wheezing, rales or rhonchi Back: Patient has moderate mid lower lumbar tenderness to palpation, patient has severe left paraspinal lumbar tenderness to palpation, no redness, no rash, no palpable abscess. The rest of her back is otherwise non-tender, no CVA tenderness bilaterally to percussion. NO CTLS midline or paracervicl tenderness to palpation Besides the above-mentioned. No left piriformis tenderness to palpation, positive straight leg raising test on the left. Negative straight leg raising test on the right. No signs of saddle anesthesia or cauda equina. Patient has normal bilateral reflexes, no acute decrease or increase in reflexes in the left leg compared to the right. GI: Soft, no tenderness to palpation, no masses appreciated. No rebound, guarding, or rigidity noted. Musculoskeletal: The patient has full range of motion of all extremities and joints with no difficulty Besides mild pain bilateral hips with internal and external rotation, flexion and extension which is normal and chronic; right hip slightly increased in pain compared to left, not acute.. Patient has no motor, no sensory deficits. Neurological: A&O x4, normal speech, no focal neurological deficits. Psychiatric: Cooperative Const Vital Signs: 11/14/23 12:11 11/14/23 15:33 Temperature 97.9 F 97.4 F L Temperature Source Temporal Pulse Rate 82 71 Respiratory Rate 16 16 Blood Pressure 151/92 H 156/94 H Blood Pressure Mean 111 114 Pulse Ox 97 97 Oxygen Delivery Method Room Air MDM [facility] Narrative Medical decision making narrative: Patient initially was given Toradol, Norflex, and injection of morphine to help with pain. I have spoken to Dr. Ruel banks concerning this patient, after initial assessment and prior to discharge. Patient's case was reviewed with Dr. Lipscomb. Patient last had a x-ray in September of this year. He recommended to repeat x-ray. reviewed the x-ray, and agrees with discharge. He believes that it is most likely muscle skeletal. Patient did feel better after Toradol, Norflex, and morphine. Patient is scheduled for right hip replacement December 03. Patient understands the importance of ice and stretching. Patient understands that he can make this much worse. Patient can follow up with PCP for additional physical therapy if needed. Patient does not want to be admitted to the hospital, she agrees with discharge. No questions at discharge. Radiography Diagnostic Testing: Clinical Impression(s) from Imaging Studies Lumbar Spine X-Ray 11/14/23 13:40 IMPRESSION: Multilevel laminectomy and fusion. Stable examination. Electronically Signed: Epi Villalta MD at 14:01 EDT , Discharge Plan Triage Chief Complaint: Back ED Provider: Luther Bonilla Dx/Rx/DC Orders Clinical Impression: Lumbar back pain Instructions: ED Back Care Tips Prescriptions: No Action topiramate 100 mg tablet 100 mg PO BID omeprazole 40 mg capsule,delayed release(DR/EC) 40 mg PO DAILY ondansetron HCl 4 mg tablet 4 mg PO Q8H PRN (Reason: NAUSEA) rosuvastatin 10 mg tablet 10 mg PO DAILY cetirizine [Zyrtec] 10 mg tablet 10 mg PO DAILY PRN (Reason: allergy symptoms) lamotrigine 100 mg tablet 100 mg PO DAILY meclizine 25 mg tablet 25 mg PO TID PRN (Reason: dizziness) Qty: 20 0RF celecoxib 200 MG capsule 200 mg PO DAILY fluticasone propionate 50 mcg/actuation spray,suspension 2 spray NASAL DAILY PRN (Reason: ALLERGIES) amiloride 5 mg tablet 1 tab PO DAILY venlafaxine [Effexor XR] 75 mg Capsule,Extended Release 24hr 75 mg PO DAILY levothyroxine [Levoxyl] 88 mcg tablet 88 mcg PO DAILY potassium chloride 20 mEq tablet extended release 60 meq PO DAILY triamterene-hydrochlorothiazid 37.5-25 mg tablet 1 tab PO DAILY multivitamin [Daily Multi-Vitamin] Tablet 1 tab PO DAILY Patient Comments: ASKING AT APPT ON 08/24 ABOUT STOPPING cholecalciferol (vitamin D3) [Vitamin D3] 25 mcg (1,000 unit) capsule 25 mcg PO DAILY acetaminophen 500 mg Tablet 1,000 mg PO Q8 Qty: 0 0RF aspirin 325 mg Tablet 325 mg PO BREAKFAST Qty: 0 0RF sennosides-docusate sodium [Stool Softener-Stimulant Laxat] 8.6-50 mg Tablet 2 tab PO BID Qty: 0 0RF bisacodyl 5 mg Tablet,Delayed Release (Dr/Ec) 10 mg PO DAILY 30 Days Qty: 60 0RF gabapentin 600 mg Tablet 600 mg PO 4X/DAY 30 Days Qty: 120 0RF lidocaine 5 % Adhesive Patch,Medicated 2 patch topical DAILY 30 Days Qty: 60 0RF Protocol: *Topical Application Instructions APPLICATION INSTRUCTIONS: Apply over right groin covering part of lower abdomen and inner thigh. doxepin 25 mg Capsule 25 mg PO QHS 30 Days Qty: 30 0RF diazepam 5 mg Tablet 10 mg PO 4X/DAY PRN (Reason: Spasms) oxycodone 5 mg Tablet 5 - 10 mg PO Q4H PRN (Reason: Pain Score 4-10) Primary Care Provider: Care Physician,No Primary Referrals: Care Physician,No Primary [Primary Care Provider] - Activity Restrictions/Additional Instructions: Increase fluids at home Use ice 20 minutes on, 20 minutes off Do not use heat Follow-up with Dr. Lipscomb as needed, follow-up with your orthopedic surgeon as needed for right hip pain as well Continue all medications as prescribed. Disposition Disposition: Home, Self Care Discharge Date/Time: 11/14/23 15:36
[2023-11-14] MEDS: morphine 10 MG/ML Syringe IM (13:19)
[2023-11-14] MEDS: Orphenadrine 60 MG/2 ML Ampul IM (13:20)
[2023-11-14] MEDS: Ketorolac 15 MG/ML Vial IM (13:22)
--- NOTE | 2023-11-14 13:40 | RAD_ITS ---
STUDY: X-RAY - LUMBAR SPINE REASON FOR EXAM: Female, 53 years old. Back pain. Difficulty with ambulation. TECHNIQUE: 3 view(s) of the lumbar spine were obtained. COMPARISON: Comparison is made with prior study dated October 04, 2023. FINDINGS: Normal lumbar lordosis. There is no substantial scoliosis. There is a normal alignment of the vertebrae. The patient is status post interpedicular screw and mark fixation at the L2-L3, L3-L4, L4-L5 and L5-S1 levels. Prosthetic discs are seen. A spinal cord stimulator device is visualized. The soft tissue structures are unremarkable. RAD/Lumbar Spine 2 or 3 Views IMPRESSION: Multilevel laminectomy and fusion. Stable examination. Electronically Signed: Epi Villalta MD at 14:01 EDT ,
[2023-11-14 15:33] VITALS: BP 156/94; PULSE 71; RESP 16; TEMP 36.3; O2SAT 97
== END 2023-11-14 15:36 | disposition home or self-care (01) ==
PROVIDERS: Emergency Provider Emergency Medicine; Visit Provider Emergency Medicine
DX: M54.50 Low back pain, unspecified (principal); G89.29 Other chronic pain; F17.290 Nicotine dependence, other tobacco product, uncomplicated; Z79.899 Other long term (current) drug therapy
CPT/HCPCS: 72100; 96372; 99282

== ENCOUNTER 2023-12-07 21:20 | Inpatient (IN) | payer MEDICARE, MEDICAID, SELFPAY ==
[2023-12-07 21:32] VITALS: BP 110/66; PULSE 79; RESP 18; TEMP 36.3; O2SAT 96; BMI 37.4
[2023-12-08] MEDS: traMADol 50 MG Tablet PO ×3 (00:53→21:26)
[2023-12-08] MEDS: 0.9% Saline Lock 10 ML Syringe IV (00:54)
[2023-12-08] MEDS: Topiramate 100 MG Tablet PO ×3 (02:09→21:29)
[2023-12-08] MEDS: Gabapentin 600 MG Tablet PO ×3 (02:09→21:26)
[2023-12-08] MEDS: Acetaminophen 500 MG Tablet 1000 MG PO ×4 (02:09→21:28)
[2023-12-08] MEDS: tiZANidine HCl 2 MG Tablet 4 MG PO ×2 (02:11→21:32)
[2023-12-08] MEDS: oxyCODONE 5 MG Tablet PO ×4 (02:14→16:49)
[2023-12-08] MEDS: Levothyroxine 88 MCG Tablet PO (06:22)
[2023-12-08] MEDS: Pantoprazole Sodium 40 MG Tablet PO (06:34)
[2023-12-08 06:49] LABS: Absolute Lymphocyte Count 1.95 X10^3/uL (0.83-4.51); Absolute Neutrophil Count 8.2 X10^3/uL (2.0-7.7); Basophil# 0.08 X10^3/uL; Basophil% 0.7 % (0-1); Eosinophils% 5.2 % (0-5); Hematocrit 28.3 % (37-47); Hemoglobin 8.8 g/dL (12.0-15.0); Lymphocyte # 1.95 X10^3/ul (0.83-4.51); Lymphocyte % 16.7 % (19-41); Mean Corp Hgb Conc 31.1 g/dL (32-36); Mean Corpuscular Hgb 28.8 pg (27.0-32.0); Mean Corpuscular Volume 92.5 fL (81-99); Mean Platelet Vol. 9.8 fl (6.2-12.0); Monocyte# 0.74 X10^3/uL; Monocyte% 6.4 % (0-10); NRBC Flagged by Analyzer 0 % (0-5); Neutrophil # 8.22 X10^3/uL (2.7-7.7); Neutrophil % 70.5 % (47-70); Platelet Count 263 K/mm3 (150-450); RBC Distribution Width CV 15.2 % (11.6-14.6); RBC Distribution Width SD 51.4 fl (35.1-43.9); Red Blood Count 3.06 M/mm3 (4.2-5.4); White Blood Count 11.7 K/mm3 (4.4-11.0)
[2023-12-08 07:14] LABS: Anion Gap 0 (5-15); BUN 18 mg/dL (7-18); BUN/Creat Ratio 26.7 RATIO (10-20); Chloride 113 mmol/L (98-107); Creatinine, Serum 0.67 mg/dL (0.55-1.02); EST Glomerular Filtration Rate 97 mL/min (>60); Est Glom Filt Rate - Afr Amer 118 mL/min (>60); Estimated Creatinine Clearance 115.01 ml/min; Glucose 94 mg/dL (74-106); Potassium 3.8 mmol/L (3.5-5.1); Sodium Level 139 mmol/L (136-145)
[2023-12-08] MEDS: lamoTRIgine 100 MG Tablet PO (09:42)
[2023-12-08] MEDS: Loratadine 10 MG Tablet PO (09:42)
[2023-12-08] MEDS: Multivitamins,Therapeutic Tablet 1 TABLET PO (09:42)
[2023-12-08] MEDS: Aspirin E.C. 81 MG Tablet PO ×2 (09:43→16:50)
[2023-12-08] MEDS: AMILORIDE HCL 5 MG TABLET PO (09:44)
[2023-12-08] MEDS: Potassium Chloride Oral Tablet 20 MEQ PO ×3 (09:44→16:49)
[2023-12-08] MEDS: Triamterene 37.5MG/Hctz 25MG Capsule 1 CAP PO (09:45)
[2023-12-08] MEDS: Venlafaxine XR 75 MG Capsule PO (09:46)
[2023-12-08] MEDS: Doxycycline 100 MG CAPSULE PO ×2 (09:46→21:27)
[2023-12-08] MEDS: Ascorbic Acid 500 MG Tablet PO ×2 (09:47→16:51)
--- NOTE | 2023-12-08 10:37 | HP.PCM_ITS ---
HPI - General General Date of Admission: 12/07/23 Date of Service: 12/10/23 Chief Complaint: Here for rehabilitation. HPI Narrative BRUNO PATTERSON, is a 53 Female who presents with followin11/14/2023 [facility] ED Low back pain, left lower back. Discharge home after Toradol, Norflex, Morphine. 11/19/2023 [facility] preoperative evaluation. Migraine stable on Topamax, Maxalt prn. Low back pain with left sciatica s/p surgery 08/2023 controlled with spinal cord stimulator, gabapentin. Dr. Jin for chronic low back pain, Tramadol, Butrans patch, Zanaflex, Gabapentin, Celebrex, Tylenol. 12/01/2023 Dr. Lipscomb (virtual visit) recommended patient proceed with right total hip arthroplasty due to severe pain from ostearthritis right hip. Discussed with Dr. Brown (orthopedic hip surgeon). 12/04/2023 Admit to [facility]. 12/04/2023 Dr. Brown performed right total hip arthroplasty. 12/05/2023 WBAT RLE, FWB LLE. PT/OT. Pain control with medications. Aspirin 81mg twice daily x 28 days ( 01/01/2024) for DVT prophylaxis. 12/07/2023 Admit to TCU with debility, here for rehablitation, strengthening, prior to discharge home alone. REPLACED BY [facility] Medical History (Updated 12/08/23 @ 10:[address] Ky Henderson MD) Acute maxillary sinusitis, unspecified Ambulates with cane Anemia Anxiety Arthritis Back problem Depression Dietary restriction Easy bruising Former smoker Gastric reflux Hearing problem History of edema History of pain when walking History of ulceration Hives Hypokalemia IBS (irritable bowel syndrome) Injury of head and neck Leg cramps Loss of hearing Menieres disease Migraine headache Neuropathy Osteoarthritis Pain Pneumonia Seasonal allergies Thyroid disease Ulcer Vertigo Vision problem Vitamin deficiency Wears glasses Home Medications amiloride 5 mg tablet 1 tab PO DAILY MENERIES 03/27/20 [History Last Taken 09/02/23] omeprazole 40 mg capsule,delayed release 40 mg PO DAILY PER 08/17/21 [History Last Taken 09/12/23 08:00] ondansetron HCl 4 mg tablet 4 mg PO Q8H PRN NAUSEA 08/17/21 [History Last Taken Unknown] topiramate 100 mg tablet 100 mg PO BID MIGRAINES 08/17/21 [History Last Taken 12/07/23] fluticasone propionate 50 mcg/actuation nasal spray,suspension 1 spray DAILY PRN ALLERGIES 10/21/21 [History Last Taken Unknown] venlafaxine 75 mg capsule,extended release 24 hr (Effexor XR) 75 mg PO DAILY PER DR 12/27/21 [History Last Taken 12/07/23] rosuvastatin 10 mg tablet 10 mg PO DAILY PER DR REAGAN 01/24/23 [History Last Taken 12/07/23] levothyroxine 88 mcg tablet (Levoxyl) 88 mcg PO DAILY Thyroid 02/20/23 [History Last Taken 09/12/23 05:00] potassium chloride 20 mEq tablet,extended release 20 meq PO TID PER DR 02/20/23 [History Last Taken 09/02/23] triamterene 37.5 mg-hydrochlorothiazide 25 mg tablet 1 tab PO DAILY PER DR 02/20/23 [History Last Taken 09/02/23] cetirizine 10 mg tablet (Zyrtec) 10 mg PO DAILY allergy symptoms 03/08/23 [History Last Taken 09/02/23] lamotrigine 100 mg tablet 100 mg PO DAILY PER DR 03/08/23 [History Last Taken 12/07/23] multivitamin (Daily Multi-Vitamin tablet) 1 tab PO DAILY PER DR 08/20/23 [History Last Taken 09/02/23] acetaminophen 500 mg tablet 1,000 mg (2 x 500 mg) PO Q8 Pain #0 tabs 09/12/23 [Rx Last Taken 12/07/23] oxycodone 5 mg tablet 5 mg PO Q4H PRN Pain Score 4-10 09/25/23 [History Last Taken Unknown] ascorbic acid (vitamin C) 500 mg tablet (Vitamin C) 500 mg PO BIDCM supplement 12/08/23 [History Last Taken Unknown] aspirin 81 mg tablet,delayed release (Enteric Coated Aspirin) 81 mg PO BID per doc 12/08/23 [History Last Taken Unknown] buprenorphine 5 mcg/hour weekly transdermal patch 1 patch topical QWEEK pain 12/08/23 [History Last Taken 12/04/23] doxycycline monohydrate 100 mg capsule 100 mg PO BID infection prevention 12/08/23 [History Last Taken 12/07/23] gabapentin 600 mg tablet 600 mg PO BID neuropathy 12/08/23 [History Last Taken Unknown] meclizine 25 mg tablet 12.5 mg PO TID PRN dizziness 12/08/23 [History Last Taken Unknown] sennosides 8.6 mg tablet (senna) 17.2 mg PO QHS stool softener 12/08/23 [History Last Taken Unknown] tizanidine 4 mg tablet 4 mg PO QHS muscle relaxant 12/08/23 [History Last Taken Unknown] tramadol 50 mg tablet 50 mg PO BID pain 12/08/23 [History Last Taken Unknown] Allergy/AdvReac Type Severity Reaction Status Date / Time shellfish derived Allergy Severe vomitting Verified 11/14/23 12:12 Penicillins Allergy Hives Verified 11/14/23 12:12 citric acid AdvReac Severe wears dowm Verified 11/14/23 12:12 linning of mouth duloxetine [From Cymbalta] AdvReac Intermediate Other Verified 11/14/23 12:12 gluten AdvReac Intermediate stomach Verified 11/14/23 12:12 discomfort Family History Other Alcohol abuse Anxiety Arthritis Autoimmune disease Bowel disease Colon cancer Depression Diabetes Heart disease High cholesterol Hypertension Mental disorder Psychiatric care Severe allergic reaction Thyroid disorder Surgical History (Updated 12/08/23 @ 10:[address] Ky Henderson MD) H/O total hip arthroplasty History of total right hip arthroplasty S/P insertion of spinal cord stimulator Social History household members: none Smoking Status: Current every day smoker tobacco type: e-cigarettes alcohol intake: former year quit: 2015 substance use type: does not use frequency: daily ROS Constitutional Constitutional: Reports weakness; Denies chills, fever(s) or weight gain ENT HEENT: Reports headache(s); Denies nasal congestion or nasal discharge Cardiovascular Cardiovascular: Denies chest pain or palpitations Respiratory/Chest Respiratory/Chest: Denies cough, excessive phlegm production or shortness of breath with exertion Gastrointestinal Gastrointestinal: Denies abdominal pain, nausea or vomiting Genitourinary Genitourinary: Denies dysuria Musculoskeletal Musculoskeletal: Denies joint pain or joint swelling Integumentary Integumentary: Denies rash or wounds Neurologic Neurologic: Denies focal weakness, numbness or tingling Psychiatric Psychiatric: Denies anxiety, auditory hallucinations, depression, homicidal ideation or suicidal ideation Vital Signs Vital Signs Vital Signs: 12/07/23 21:32 12/07/23 21:32 Temperature 97.4 F L Temperature Source Temporal Pulse Rate 79 Pulse Rhythm Regular Pulse Strength Normal (2+) Respiratory Rate 18 Respiratory Effort Normal Non-Labored Respiratory Depth Normal Respiratory Pattern Normal Blood Pressure 110/66 Blood Pressure Mean 80 Blood Pressure Source Monitor Blood Pressure Position Semi-Fowlers Blood Pressure Location Right Arm Pulse Ox 96 Oxygen Delivery Method Room Air Room Air Weight Weight: 102.058 kg Body Mass Index (BMI) 37.4 Physical Exam Const alert General Appearance: cooperative HEENT normocephalic Eyes PERRL and EOMs intact bilaterally Neck supple, no JVD and no carotid bruits Resp normal respiratory effort, normal air movement and clear to auscultation bilaterally Cardio regular rate and regular rhythm GI normal to inspection, nondistended, normoactive bowel sounds, non-tender and non-distended Extremity normal capillary refill General Extremity: Negative for edema Skin no rashes or lesions noted General Skin Exam: no breakdown Psych affect normal Appearance: appropriate Results Lab / Micro Data 12/08/23 06:39 12/08/23 06:39 Labs: Laboratory Results - last 24 hr 12/08/23 06:39: WBC 11.7 H, RBC 3.06 L, Hgb 8.8 L, Hct 28.3 L, MCV 92.5, MCH 28.8, MCHC 31.1 L, RDW Std Deviation 51.4 H, RDW Coeff of Zoey 15.2 H, Plt Count 263, MPV 9.8, Immature Gran % (Auto) 0.500, Neut % (Auto) 70.5 H, Lymph % (Auto) 16.7 L, [place] % (Auto) 6.4, Eos % (Auto) 5.2 H, Baso % (Auto) 0.7, Absolute Neuts (auto) 8.2 H, Absolute Lymphs (auto) 1.95, Nucleated RBC % 0, Sodium 139, Potassium 3.8, Chloride 113 H, Carbon Dioxide 26.0, Anion Gap 0 L, BUN 18, Creatinine 0.67, Estim Creat Clear Calc 115.01, Est GFR (MDRD) Af Amer 118, Est GFR (MDRD) Non-Af 97, BUN/Creatinine Ratio 26.7 H, Glucose 94, Calcium 8.0 L Assessment & Plan Assessment/Plan (1) Debility: (2) Degenerative joint disease of right hip: QUALIFIERS: Osteoarthritis type: primary Qualified Code(s): M16.11 - Unilateral primary osteoarthritis, right hip (3) Status post total hip replacement, right: (4) M?ni?re's disease: (5) Hyperlipidemia: (6) Osteoarthritis: (7) Vitamin D deficiency: (8) Allergic rhinitis: (9) Neuropathic pain: (10) Depression: (11) Hypothyroidism: (12) Muscle spasm: (13) Nausea: (14) GERD (gastroesophageal reflux disease): (15) Hypokalemia: (16) Migraine headache: (17) Essential (primary) hypertension: PLAN: Plan 53 year old female with below past medical history hospitalized for elective right total hip arthroplasty 12/04/[address] Brown, admitted to TCU with debility, here for rehabilitation, strengthening, prior to discharge home alone. * Debility - PT/OT. * Pain - Tylenol 1000mg q8, Butrans 5mcg 1 patch td qweek, Tramadol 50mg bid, Oxycodone 5mg q4 prn pain (1-10). * Bowel - senna/colace 2 tablets bid, Dulcolax 10mg po daily prn. * Adult immunization - Administer pneumonia vaccine, covid vaccine, flu vaccine as appropriate. * DVT prophylaxis - Aspirin 81mg bid thru 01/04/2024. * Meniere's disease - Amiloride 5mg daily, Meclizine 12.5mg q6 prn. * Vitamin C deficiency - Vitamin C 500mg bidcm. * Hyperlipidemia - Atorvastatin 20mg qhs. * s/p right total hip arthroplasty - Doxycycline 100mg bid thru 12/13/2023 prophylaxis. * Allergic rhinitis - Loratadine 10mg daily, Flonase 1 spray bid prn * Neuropathic pain - Gabapentin 600mg bid. 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 * Hypothyroidism - Levothyroxine 88mcg daily. * Nutrition - MVI 1 tablet daily. * Nausea - Zofran 4mg q8 prn. * GERD - Pantoprazole 40mg daily. * Hypokalemia - KCL 20meq tidcm. * Muscle spasm - Tizanidine 4mg qhs prn. * Migraine - Topamax 100mg bid, Maxalt 10mg po x 1, then prn. * Hypertension - Maxzide 37.5mg/25mg daily.
[2023-12-08] MEDS: Tuberculin,Purif.prot.deriv. 50 TU/ML Vial 0.1 ML ID (11:41)
[2023-12-08] MEDS: Senna/Docusate Sodium 1 Tablet 2 TABLET PO ×2 (11:44→21:28)
[2023-12-08] MEDS: Bisacodyl 5 MG Tablet 10 MG PO (11:46)
[2023-12-08 15:24] VITALS: BP 99/66; PULSE 71; RESP 18; TEMP 36.4; O2SAT 96
[2023-12-08] MEDS: Atorvastatin Calcium 20 MG Tablet PO (21:30)
[2023-12-09] MEDS: oxyCODONE 5 MG Tablet PO ×4 (01:35→16:33)
[2023-12-09] MEDS: Levothyroxine 88 MCG Tablet PO (05:33)
[2023-12-09] MEDS: Acetaminophen 500 MG Tablet 1000 MG PO ×3 (05:34→21:41)
[2023-12-09] MEDS: Pantoprazole Sodium 40 MG Tablet PO (05:34)
[2023-12-09 09:39] VITALS: BP 112/68; PULSE 79; RESP 17; TEMP 36.3; O2SAT 97
[2023-12-09] MEDS: Potassium Chloride Oral Tablet 20 MEQ PO ×3 (09:46→16:33)
[2023-12-09] MEDS: Aspirin E.C. 81 MG Tablet PO ×2 (09:46→16:33)
[2023-12-09] MEDS: Ascorbic Acid 500 MG Tablet PO ×2 (09:47→16:33)
[2023-12-09] MEDS: Multivitamins,Therapeutic Tablet 1 TABLET PO (09:47)
[2023-12-09] MEDS: Doxycycline 100 MG CAPSULE PO ×2 (09:50→21:42)
[2023-12-09] MEDS: AMILORIDE HCL 5 MG TABLET PO (09:50)
[2023-12-09] MEDS: Loratadine 10 MG Tablet PO (09:50)
[2023-12-09] MEDS: lamoTRIgine 100 MG Tablet PO (09:51)
[2023-12-09] MEDS: Venlafaxine XR 75 MG Capsule PO (09:51)
[2023-12-09] MEDS: Triamterene 37.5MG/Hctz 25MG Capsule 1 CAP PO (09:51)
[2023-12-09] MEDS: Senna/Docusate Sodium 1 Tablet 2 TABLET PO ×2 (09:51→21:40)
[2023-12-09] MEDS: Topiramate 100 MG Tablet PO ×2 (09:52→21:41)
[2023-12-09] MEDS: Bisacodyl 5 MG Tablet 10 MG PO (09:53)
[2023-12-09] MEDS: Gabapentin 600 MG Tablet PO ×2 (09:54→21:39)
[2023-12-09] MEDS: traMADol 50 MG Tablet PO ×2 (09:54→21:39)
--- NOTE | 2023-12-09 11:05 | NURSING ---
LBM was 12/02. Prune juice given this morning and PRN given x2. No results. Call placed to Dr. Henderson. New order received for Gerrily 1L x1.
[2023-12-09] MEDS: Electrolyte Solution/Peg's 4000 ML 1000 ML PO (14:10)
--- NOTE | 2023-12-09 16:47 | NURSING ---
Buprenorphine (butrans) 5mcg/hr patch noted to patient's right flank area. Patch is not dated. Patient states pain patch was placed on Monday 12/04.
[2023-12-09] MEDS: tiZANidine HCl 2 MG Tablet 4 MG PO (20:21)
[2023-12-09] MEDS: Atorvastatin Calcium 20 MG Tablet PO (21:42)
[2023-12-10] MEDS: oxyCODONE 5 MG Tablet PO ×5 (00:18→23:19)
[2023-12-10] MEDS: Pantoprazole Sodium 40 MG Tablet PO (06:34)
[2023-12-10] MEDS: Acetaminophen 500 MG Tablet 1000 MG PO ×3 (06:34→21:28)
[2023-12-10] MEDS: Levothyroxine 88 MCG Tablet PO (06:34)
--- NOTE | 2023-12-10 07:55 | NS ---
MST score = 0
[2023-12-10] MEDS: Rizatriptan Benzoate 10 MG Tablet PO (08:53)
[2023-12-10] MEDS: Senna/Docusate Sodium 1 Tablet 2 TABLET PO ×2 (08:53→21:28)
[2023-12-10] MEDS: Potassium Chloride Oral Tablet 20 MEQ PO ×3 (08:54→17:34)
[2023-12-10] MEDS: Loratadine 10 MG Tablet PO (08:54)
[2023-12-10] MEDS: Triamterene 37.5MG/Hctz 25MG Capsule 1 CAP PO (08:54)
[2023-12-10] MEDS: Gabapentin 600 MG Tablet PO ×2 (08:54→21:28)
[2023-12-10] MEDS: Multivitamins,Therapeutic Tablet 1 TABLET PO (08:54)
[2023-12-10] MEDS: Aspirin E.C. 81 MG Tablet PO ×2 (08:54→17:34)
[2023-12-10] MEDS: Venlafaxine XR 75 MG Capsule PO (08:54)
[2023-12-10] MEDS: lamoTRIgine 100 MG Tablet PO (08:54)
[2023-12-10] MEDS: AMILORIDE HCL 5 MG TABLET PO (08:54)
[2023-12-10] MEDS: Doxycycline 100 MG CAPSULE PO ×2 (08:54→21:27)
[2023-12-10] MEDS: Topiramate 100 MG Tablet PO ×2 (08:55→21:27)
[2023-12-10] MEDS: Ascorbic Acid 500 MG Tablet PO ×2 (08:55→17:34)
[2023-12-10] MEDS: traMADol 50 MG Tablet PO ×2 (09:00→21:28)
[2023-12-10 09:01] VITALS: BP 128/73; PULSE 76
--- NOTE | 2023-12-10 09:51 | PCM.PN.DRR ---
Documented by User: Jose David Dowd 12/10/23 10:23 TCU RX Drug Regimen Review Subjective/Objective Subjective/Objective: Subjective: TCU admission note. 53 year old female with below past medical history hospitalized for elective right total hip arthroplasty 12/04/[address] Brown, admitted to TCU with debility, here for rehabilitation, strengthening, prior to discharge home alone. Objective: Allergies shellfish derived Allergy (Severe, Verified 11/14/23 12:12) vomitting Penicillins Allergy (Verified 11/14/23 12:12) Hives citric acid Adverse Reaction (Severe, Verified 11/14/23 12:12) wears dowm linning of mouth blisters in mouth duloxetine [From Cymbalta] Adverse Reaction (Intermediate, Verified 11/14/23 12:12) Other weight gain gluten Adverse Reaction (Intermediate, Verified 11/14/23 12:12) stomach discomfort Current Medications Generic Name Dose Route Start Last Admin Trade Name Freq PRN Reason Stop Dose Admin Acetaminophen 1,000 mg 12/08/23 00:30 12/10/23 06:34 Acetaminophen 500 Mg Tablet PO 1,000 mg Q8 LINETTE Administration Amiloride HCl 5 mg 12/08/23 10:00 12/10/23 08:54 Amiloride Hcl 5 Mg Tablet PO 5 mg DAILY LINETTE Administration Ascorbic Acid 500 mg 12/08/23 08:00 12/10/23 08:55 Ascorbic Acid 500 Mg Tablet PO 12/20/23 08:00 500 mg BIDCM LINETTE Administration Aspirin 81 mg 12/08/23 08:00 12/10/23 08:54 Aspirin E.C. 81 Mg Tablet PO 01/04/24 17:01 81 mg BIDCM LINETTE Administration Atorvastatin Calcium 20 mg 12/08/23 22:00 12/09/23 21:42 Atorvastatin Calcium 20 Mg Tablet PO 20 mg 2200 LINETTE Administration Bisacodyl 10 mg 12/08/23 10:59 12/09/23 09:53 Bisacodyl 5 Mg Tablet PO 10 mg DAILY PRN Administration Constipation Buprenorphine 1 patch 12/11/23 10:00 Buprenorphine 5 Mcg Patch.Tdwk TD Q7D LINETTE Doxycycline Monohydrate 100 mg 12/08/23 10:00 12/10/23 08:54 Doxycycline 100 Mg Capsule PO 12/13/23 10:01 100 mg BID LINETTE Administration Fluticasone Propionate 1 spray 12/07/23 22:02 Fluticasone 0.05% 1 [place] Nasal.Sry NASAL BID PRN PRN SINUS CONGESTION Gabapentin 600 mg 12/07/23 22:45 12/10/23 08:54 Gabapentin 600 Mg Tablet PO 600 mg BID LINETTE Administration Sodium Chloride 250 mls @ 15 mls/hr 12/07/23 21:36 IV .[id number] PRN Additional IVPB Infusion Sodium Chloride 250 mls @ 15 mls/hr 12/07/23 21:36 IV .[id number] PRN Saline Flush Lamotrigine 100 mg 12/08/23 10:00 12/10/23 08:54 Lamotrigine 100 Mg Tablet PO 100 mg DAILY LINETTE Administration Levothyroxine Sodium 88 mcg 12/08/23 06:00 12/10/23 06:34 Levothyroxine 88 Mcg Tablet PO 88 mcg DAILY@0600 LINETTE Administration Loratadine 10 mg 12/08/23 10:00 12/10/23 08:54 Loratadine 10 Mg Tablet PO 10 mg DAILY LINETTE Administration Meclizine HCl 12.5 mg 12/07/23 22:07 Meclizine 12.5 Mg Tablet PO Q6H PRN PRN VERTIGO Multivitamins 1 tablet 12/08/23 08:00 12/10/23 08:54 Multivitamins,Therapeutic Tablet PO 1 tablet DAILYCM LINETTE Administration Ondansetron HCl 4 mg 12/07/23 22:12 Ondansetron Odt 4 Mg Tablet PO Q8H PRN PRN NAUSEA/VOMITING Oxycodone HCl 5 mg 12/08/23 00:50 12/10/23 04:21 Oxycodone 5 Mg Tablet PO 5 mg Q4H PRN PRN Administration Pain Score 1-10 Pantoprazole Sodium 40 mg 12/08/23 06:30 12/10/23 06:34 Pantoprazole Sodium 40 Mg Tablet PO 40 mg 0600 LINETTE Administration Potassium Chloride 20 meq 12/08/23 07:45 12/10/23 08:54 Potassium Chloride Oral Tablet 20 Meq PO 20 meq TIDCM LINETTE Administration Rizatriptan Benzoate 10 mg 12/10/23 10:00 Rizatriptan Benzoate 10 Mg Tablet PO X1 PRN MIGRAINE SYMPTOMS Senna/Docusate Sodium 2 tablet 12/08/23 11:00 12/10/23 08:53 Senna/Docusate Sodium 1 Tablet PO 2 tablet BID LINETTE Administration Sodium Chloride 10 - 40 ml 12/07/23 21:36 12/08/23 00:54 0.9% Saline Lock 10 Ml Syringe IV 10 ml UD PRN Administration SALINE FLUSH Tizanidine HCl 4 mg 12/07/23 22:34 12/09/23 20:21 Tizanidine Hcl 2 Mg Tablet PO 4 mg QHS PRN Administration MUSCLE SPASM Topiramate 100 mg 12/07/23 22:45 12/10/23 08:55 Topiramate 100 Mg Tablet PO 100 mg BID LINETTE Administration Tramadol HCl 50 mg 12/07/23 22:45 12/10/23 09:00 Tramadol 50 Mg Tablet PO 50 mg BID LINETTE Administration Triamterene/Hydrochlorothiazide 1 cap 12/08/23 10:00 12/10/23 08:54 Triamterene 37.5mg/Hctz 25mg Capsule PO 1 cap DAILY LINETTE Administration Protocol Tuberculin PPD 0.1 ml 12/15/23 10:00 Tuberculin,Purif.Prot.Deriv. 50 Tu/Ml Vial ID 12/15/23 10:01 X1 ONE Venlafaxine HCl 75 mg 12/08/23 10:00 12/10/23 08:54 Venlafaxine Xr 75 Mg Capsule PO 75 mg DAILY LINETTE Administration Problem List (Updated 12/08/23 @ 10:[address] Ky Henderson MD) Essential (primary) hypertension (Acute) Nausea (Acute) Muscle spasm (Acute) Vitamin D deficiency (Acute) Status post total hip replacement, right (Acute) Migraine headache (Acute) Hypothyroidism (Acute) Hyperlipidemia (Acute) Depression (Acute) Allergic rhinitis (Acute) GERD (gastroesophageal reflux disease) (Acute) Neuropathic pain (Acute) Osteoarthritis (Acute) Debility (Acute) Degenerative joint disease of right hip (Acute) M?ni?re's disease (Chronic) Hypokalemia (Acute) Vital Signs Temp Pulse Resp BP Pulse Ox O2 Del Method 97.3 F L 76 17 128/73 H 97 Room Air 12/09/23 09:39 12/10/23 09:01 12/09/23 09:39 12/10/23 09:01 12/09/23 09:39 12/09/23 14:42 Oxygen Delivery Method Room Air Weight: 102.058 kg Body Mass Index (BMI) 37.4 Sodium 139 mmol/L (136-145) 12/08/23 06:39 Potassium 3.8 mmol/L (3.5-5.1) 12/08/23 06:39 Chloride 113 mmol/L (98-107) H 12/08/23 06:39 Carbon Dioxide 26.0 mmol/L (21.0-32.0) 12/08/23 06:39 Anion Gap 0 (5-15) L 12/08/23 06:39 BUN 18 mg/dL (7-18) 12/08/23 06:39 Creatinine 0.67 mg/dL (0.55-1.02) 12/08/23 06:39 Est GFR (MDRD) Af Amer 118 mL/min (>60) 12/08/23 06:39 Est GFR (MDRD) Non-Af 97 mL/min (>60) 12/08/23 06:39 BUN/Creatinine Ratio 26.7 RATIO (10-20) H 12/08/23 06:39 Glucose 94 mg/dL (74-106) 12/08/23 06:39 Assessment/Plan: 1. Pain: acetaminophen 1000 mg PO Q8H, buprenorphine 5 mcg patch topically Q7D, Tramadol 50 mg PO BID, oxycodone 5 mg PO Q4H PRN pain (1-10). The patient has required 10 doses of PRN oxycodone so far this admission. Please continue to monitor for pain levels, LFTs (AST/ALT = 33/51 U/L on 09/16/23), for constipation, for respiratory depression, dizziness/drowsiness, syncope/ataxia/falls, renal function (serum creatinine = 0.67 mg/dL with creatinine clearance ~ 115 mL/min on 12/08/23) and seizures. 2. Bowel: senna/docusate 2 tablets PO BID, bisacodyl 10 mg PO daily PRN constipation. The patient has required 2 doses of PRN bisacodyl so far this admission, and the patient's last bowel movement was documented as 12/03/23. Please continue to monitor for diarrhea, constipation, and PRN medication administration. Please consider adding polyethylene glycol 17 grams daily as the patient is on significant doses of opioids and requiring multiple doses of PRN bisacodyl. 3. DVT prophylaxis: aspirin 81 mg PO BID through 01/04/24. Please continue to monitor for s/s of DVT such as erythema/edema/pain in an extremity, for GI distress with aspirin administration and for bleeding/excessive bruising, for hemoglobin levels (Hgb = 8.8 g/dL on 12/08/23), and platelet count (Plt = 263 K/mm3 on 12/08/23). 4. Meniere's disease: amiloride 5 mg PO daily, meclizine 12.5 mg PO Q6H PRN vertigo. The patient has not required any doses of PRN meclizine so far this admission. Please continue to monitor for dizziness, PRN medication administration, potassium levels (K = 3.8 mmol/L on 12/08/23), renal function (serum creatinine = 0.67 mg/dL with creatinine clearance ~ 115 mL/min on 12/08/23), for s/s of dehydration, for dry mouth, drowsiness, and constipation. 5. S/P right total hip arthroplasty: doxycycline 100 mg PO BID through 12/13/23.Please continue to monitor for s/s of infection such as redness/swelling/pain at incision site, WBC count (WBC = 11.7 K/mm3 on 12/08/23), chills, fevers (recent temps = 97.3-97.6 F), and for GI distress with doxycycline administration. 6. Hyperlipidemia: atorvastatin 20 mg PO QHS. Please continue to monitor lipid levels (cholesterol = 176 mg/dL with LDL = 76 mg/dL on 08/20/23), LFTs (AST/ALT = 33/51 U/L on 09/16/23), and for myalgias. 7. Neuropathic pain: gabapentin 600 mg PO BID. Please continue to monitor for neuropathic pain, renal function (serum creatinine = 0.67 mg/dL with creatinine clearance ~ 115 mL/min on 12/08/23), for lower extremity swelling, and for drowsiness/dizziness/falls. 8. Hypothyroidism: levothyroxine 88 mcg PO daily. Please continue to monitor for s/s of hypo/hyperthyroidism and thyroid hormone levels (TSH = 1.67 uIU/mL and T4 = 1.06 ng/dL on 04/25/21). 9. Allergic rhinitis: loratadine 10 mg PO daily, fluticasone nasal spray 1 spray in each nostril BID PRN allergy symptoms. The patient has not required any PRN fluticasone nasal spray so far this admission. Please continue to monitor for allergy symptoms, renal function (serum creatinine = 0.67 mg/dL with creatinine clearance ~ 115 mL/min on 12/08/23), for dry mouth, dry eyes, constipation, and nose bleeds. 10. GERD: pantoprazole 40 mg PO daily. Please continue to monitor for s/s of GERD, for diarrhea that could indicate clostridium difficile infection, and for s/s of bone resorption such as fractures. 11. Migraine: topiramate 100 mg PO BID, rizatriptan 10 mg PO PRN migraine. The patient has not required any PRN rizatriptan so far this admission. Please continue to monitor for s/s of migraines, PRN medication usage, bicarbonate levels (bicarb = 26.0 mmol/L on 12/08/23), ammonia levels (no recent ammonia levels), abdominal pain, diarrhea, anorexia, altered taste, nausea, drowsiness and dizziness. 12. Hypertension: triamterene/hydrochlorothiazide 37.5/25 mg PO daily. Please continue to monitor blood pressures (recent range = 99-128/66-73 mmHg), renal function (serum creatinine = 0.67 mg/dL with creatinine clearance ~ 115 mL/min on 12/08/23), potassium levels (K = 3.8 mmol/L on 12/08/23), and sodium levels (Na = 139 mmol/L on 12/08/23). 13. Hypokalemia: potassium chloride 20 mEq Po TID with meals. Please continue to monitor potassium levels (K = 3.8 mmol/L on 12/08/23), and for GI distress with potassium administration. 14. Nausea: ondansetron 4 mg PO Q8H PRN nausea. The patient has not required any PRN doses of ondansetron so far this admission. Please continue to monitor for PRN medication administration as well as for nausea. 15. Muscle spasm: tizanidine 4 mg PO QHS PRN muscle spasms. The patient has required 3 doses of PRN tizanidine so far this admission. Please continue to monitor for PRN medication administration, for muscle spasms, for drowsiness/dizziness, for dry mouth, constipation, and dry eyes. 16. Nutrition: multivitamin 1 tablet PO daily. Please continue to monitor nutritional status. 17. Vitamin C deficiency: ascorbic acid 500 mg PO BID with meals. Please continue to monitor for s/s of vitamin C deficiency. Assessment/Plan for indications treated with psychotropic medications: 1. Depression: venlafaxine XR 75 mg PO daily, lamotrigine 100 mg PO daily. Please see provider note regarding stable chronic long-term therapy GDR not recommended. Please continue to monitor for s/s of depression, for SI, for nausea, dry mouth, drowsiness/dizziness, insomnia, diarrhea, for rash, constipation, and abnormal dreams. Medical chart and medication regimen reviewed. The following medication irregularities or issues were identified: 1. Bowel: senna/docusate 2 tablets PO BID, bisacodyl 10 mg PO daily PRN constipation. Please consider adding polyethylene glycol 17 grams daily as the patient is on significant doses of opioids and requiring multiple doses of PRN bisacodyl. Date Date of Note:: 12/10/23 Documented by User: Dr. Ky Henderson MD 12/10/23 11:58 TCU RX Drug Regimen Review Provider Comments Provider responsibility Provider Comments to Recommendations by Pharmacy: Agree
[2023-12-10 10:55] VITALS: BP 119/81; PULSE 76; RESP 14; TEMP 36.2; O2SAT 97
--- NOTE | 2023-12-10 11:50 | NURSING ---
Addendum entered by Mirella Calvo 12/10/23 22:55: Pt called this nurse in room and Dr. Brown on phone with pt at time. Per Dr. Brown he would like Zanaflex ordered TID left note for Dr. Henderson. Original Note: Spoke with staff at Dr. Brown' office, f/u appt made for Sunday12/17/23 at noon. Asked about zanaflex orders, they said Dr. Brown orders it QHS PRN. No new orders received.
[2023-12-10] MEDS: 0.9% Saline Lock 10 ML Syringe IV (13:07)
--- NOTE | 2023-12-10 15:36 | CASEMGMT ---
[facility] admit note Retail Banker Met with patient to complete initial assessment. Introduced self and role. Verified code status and contacts. Patient confirmed that she is a full code. Patient reports that she has completed advanced directives, but has not provided paperwork to hospital. Patient encouraged to bring documents in for them to be scanned into her medical record. Educated to medicare benefits and coverage. Patient was given resources on transportation and local OBGYN's. Patient's goal is to return to home where she lives in an apartment independently. Sw will remain involved to assist with any discharge planning needs. Alex Diaz, BRICK DROPPER, MANAGER [place]
[2023-12-10] MEDS: tiZANidine HCl 2 MG Tablet 4 MG PO (20:21)
[2023-12-10] MEDS: Atorvastatin Calcium 20 MG Tablet PO (21:28)
[2023-12-11] MEDS: Levothyroxine 88 MCG Tablet PO (05:18)
[2023-12-11] MEDS: Acetaminophen 500 MG Tablet 1000 MG PO ×3 (05:18→21:12)
[2023-12-11] MEDS: Pantoprazole Sodium 40 MG Tablet PO (05:18)
[2023-12-11] MEDS: oxyCODONE 5 MG Tablet PO ×4 (05:22→19:50)
[2023-12-11 06:57] VITALS: BMI 36.8
[2023-12-11] MEDS: Aspirin E.C. 81 MG Tablet PO ×2 (07:50→17:40)
[2023-12-11] MEDS: Multivitamins,Therapeutic Tablet 1 TABLET PO (07:50)
[2023-12-11] MEDS: Potassium Chloride Oral Tablet 20 MEQ PO ×3 (07:50→17:40)
[2023-12-11] MEDS: Ascorbic Acid 500 MG Tablet PO ×2 (07:50→17:40)
[2023-12-11] MEDS: Gabapentin 600 MG Tablet PO ×2 (08:57→21:11)
[2023-12-11] MEDS: traMADol 50 MG Tablet PO ×2 (08:57→21:11)
[2023-12-11] MEDS: Topiramate 100 MG Tablet PO ×2 (08:58→21:12)
[2023-12-11] MEDS: Senna/Docusate Sodium 1 Tablet 2 TABLET PO ×2 (08:58→21:11)
[2023-12-11] MEDS: Doxycycline 100 MG CAPSULE PO ×2 (08:59→21:11)
[2023-12-11] MEDS: Polyethylene Glycol 3350 17 GM PACKET PO (08:59)
[2023-12-11] MEDS: Loratadine 10 MG Tablet PO (08:59)
[2023-12-11] MEDS: lamoTRIgine 100 MG Tablet PO (08:59)
[2023-12-11] MEDS: Venlafaxine XR 75 MG Capsule PO (09:00)
[2023-12-11] MEDS: Triamterene 37.5MG/Hctz 25MG Capsule 1 CAP PO (09:00)
[2023-12-11] MEDS: AMILORIDE HCL 5 MG TABLET PO (09:01)
[2023-12-11] MEDS: Buprenorphine 5 MCG PATCH.TDWK 1 PATCH TD (09:04)
--- NOTE | 2023-12-11 09:10 | NURSING ---
NANCY PATCH REMOVED FROM R' RIGHT LOWER BACK. WASTED WITH Prem BLOOM IN RX DESTROYER. NEW PATCH APPLIED TO RIGHT-MID BACK.
[2023-12-11] MEDS: 0.9% Saline Lock 10 ML Syringe IV (11:59)
[2023-12-11] MEDS: tiZANidine HCl 2 MG Tablet 4 MG PO ×2 (13:25→21:11)
[2023-12-11 13:48] VITALS: BP 141/90; PULSE 90; RESP 17; TEMP 36.9; O2SAT 97
--- NOTE | 2023-12-11 15:45 | NURSING ---
Addendum entered by Kita Mcguire 12/12/23 08:27: Transportation service unable to provide ride. Updated patient, number to [place] provided. Original Note: Patient has f/u with Dr. Brown on Wednesday 12/13. She had phone number for transportation assistance, asked RN to help set it up. Called and spoke with Tawny, she sent paperwork for pt to fill out to get registered. Paperwork received and given to patient. Return instructions on paperwork. Transportation service phone #[phone].
[2023-12-11] MEDS: Atorvastatin Calcium 20 MG Tablet PO (21:12)
--- NOTE | 2023-12-11 23:26 | NURSING ---
LIDAR SCIENTIST's told this nurse this shift that smelled Vape. Upon entering room this nurse also smelled the odor of vape. This nurse asked patient if she had a vape pen and if she was using it. Patient states, I did smoke it a few times only when the pain was really bad. This nurse got permission to take pen and locked in med room. Patient was told that this is not allowed while a patient here in the hospital.
[2023-12-12] MEDS: oxyCODONE 5 MG Tablet PO ×5 (04:10→21:13)
[2023-12-12] MEDS: Pantoprazole Sodium 40 MG Tablet PO (05:40)
[2023-12-12] MEDS: Acetaminophen 500 MG Tablet 1000 MG PO ×3 (05:41→20:17)
[2023-12-12] MEDS: Levothyroxine 88 MCG Tablet PO (05:41)
[2023-12-12] MEDS: tiZANidine HCl 2 MG Tablet 4 MG PO ×3 (05:41→20:19)
[2023-12-12 08:27] VITALS: BP 112/71; PULSE 85; RESP 16; TEMP 36.2; O2SAT 97
[2023-12-12] MEDS: Aspirin E.C. 81 MG Tablet PO ×2 (08:29→16:39)
[2023-12-12] MEDS: Potassium Chloride Oral Tablet 20 MEQ PO ×3 (08:29→16:39)
[2023-12-12] MEDS: Ascorbic Acid 500 MG Tablet PO ×2 (08:29→16:39)
[2023-12-12] MEDS: Multivitamins,Therapeutic Tablet 1 TABLET PO (08:30)
[2023-12-12] MEDS: Triamterene 37.5MG/Hctz 25MG Capsule 1 CAP PO (08:30)
[2023-12-12] MEDS: Loratadine 10 MG Tablet PO (08:30)
[2023-12-12] MEDS: Venlafaxine XR 75 MG Capsule PO (08:31)
[2023-12-12] MEDS: AMILORIDE HCL 5 MG TABLET PO (08:32)
[2023-12-12] MEDS: lamoTRIgine 100 MG Tablet PO (08:32)
--- NOTE | 2023-12-12 09:19 | CASEMGMT ---
Social Work IDT met with patient at bedside to complete care plan meetings. Discussed patient progress with therapy (PT/OT), dietary, nursing, and activities. Patient is SBA/contact guard; up to 50ft contact guard. Patient is weight bearing as tolerate. SW educated patient on [facility] Dual plan insurance coverage and benefits; next review date 12/17. Patient informed JACK that she was unable to schedule transportation for appointment on 12/14/2023 at 1020 to Ortho appointment. Patient informed JACK that her family is out of town in [place]. Patient goal for care is to discharge home with [facility] PT/OT/RN services. Patient was open to [facility] prior to hospitalization with RN/OT services. SW will continue to follow to assist patient with discharge planning. ZACHARY Marcelino
[2023-12-12] MEDS: Senna/Docusate Sodium 1 Tablet 2 TABLET PO (09:59)
[2023-12-12] MEDS: Gabapentin 600 MG Tablet PO ×2 (09:59→20:17)
[2023-12-12] MEDS: Topiramate 100 MG Tablet PO ×2 (09:59→20:18)
[2023-12-12] MEDS: traMADol 50 MG Tablet PO ×2 (09:59→20:16)
[2023-12-12] MEDS: Doxycycline 100 MG CAPSULE PO ×2 (10:00→20:19)
[2023-12-12] MEDS: 0.9% Saline Lock 10 ML Syringe IV (10:04)
--- NOTE | 2023-12-12 18:48 | NURSING ---
johanna patch intact to RT hip area
[2023-12-12] MEDS: Atorvastatin Calcium 20 MG Tablet PO (20:17)
[2023-12-13] MEDS: oxyCODONE 5 MG Tablet PO ×3 (02:12→18:19)
[2023-12-13] MEDS: Pantoprazole Sodium 40 MG Tablet PO (05:42)
[2023-12-13] MEDS: Acetaminophen 500 MG Tablet 1000 MG PO ×3 (05:42→22:41)
[2023-12-13] MEDS: Levothyroxine 88 MCG Tablet PO (05:42)
[2023-12-13] MEDS: tiZANidine HCl 2 MG Tablet 4 MG PO ×3 (05:42→22:41)
--- NOTE | 2023-12-13 08:50 | NURSING ---
Cancelled appt w/ Dr. Brown, unable to get transport set up. Patient unsure when her family will be able to transport her, once she finds out nurse will call and re-schedule appt.
[2023-12-13] MEDS: Loratadine 10 MG Tablet PO (09:02)
[2023-12-13] MEDS: Aspirin E.C. 81 MG Tablet PO ×2 (09:02→16:54)
[2023-12-13] MEDS: Doxycycline 100 MG CAPSULE PO (09:02)
[2023-12-13] MEDS: Triamterene 37.5MG/Hctz 25MG Capsule 1 CAP PO (09:02)
[2023-12-13] MEDS: traMADol 50 MG Tablet PO ×2 (09:02→22:39)
[2023-12-13] MEDS: Ascorbic Acid 500 MG Tablet PO ×2 (09:02→16:54)
[2023-12-13] MEDS: Venlafaxine XR 75 MG Capsule PO (09:02)
[2023-12-13] MEDS: Topiramate 100 MG Tablet PO ×2 (09:02→22:42)
[2023-12-13] MEDS: AMILORIDE HCL 5 MG TABLET PO (09:02)
[2023-12-13] MEDS: Multivitamins,Therapeutic Tablet 1 TABLET PO (09:02)
[2023-12-13] MEDS: lamoTRIgine 100 MG Tablet PO (09:02)
[2023-12-13] MEDS: Gabapentin 600 MG Tablet PO ×2 (09:02→22:40)
[2023-12-13] MEDS: Potassium Chloride Oral Tablet 20 MEQ PO ×3 (09:02→16:54)
--- NOTE | 2023-12-13 11:13 | CASEMGMT ---
Social Work SW met with patient at bedside to complete MDS. Patient scored BIM (15/15) and BIM (14/27). Patient triggering for moderate depression. SW discussed patient current treatment plan and coping skills. Patient informed SW that she is currently seeing a therapist for treatment for depression and prescribed Effexor. Patient reports that over the last two weeks due to pain, medical condition, functional decline, and chronic immobility has impacted her quality of life. Patient informed SW that over the past ten years she has lived her life with major limitations. Patient informed SW that she is seeing the light , but it is difficult due to limited family support at this time and missing out on family celebrations this week. The patient's brother birthday is being celebrated this weekend along with a niece graduation democrat. The patient informed SW that she will be facetiming family to virtually attend festivities. Patient informed SW that she will continue with outpatient psych support currently utilized. Patient goal is to return home with increased home health care services. Patient was provided community resources for transportation, OBGYN. Patient would like to participate in more activities on TCU. SW encouraged staff to provide additional support to get patient out of room and engage with community. Patient is appreciative of support. SW will continue to monitor to provide support. ZACHARY Marcelino
[2023-12-13 13:48] VITALS: BP 137/89; PULSE 83; RESP 18; TEMP 36.6; O2SAT 97
[2023-12-13] MEDS: Atorvastatin Calcium 20 MG Tablet PO (22:43)
[2023-12-14] MEDS: oxyCODONE 5 MG Tablet PO ×4 (04:07→17:11)
[2023-12-14] MEDS: Acetaminophen 500 MG Tablet 1000 MG PO ×3 (06:29→22:23)
[2023-12-14] MEDS: tiZANidine HCl 2 MG Tablet 4 MG PO ×3 (06:29→22:23)
[2023-12-14] MEDS: Pantoprazole Sodium 40 MG Tablet PO (06:30)
[2023-12-14] MEDS: Levothyroxine 88 MCG Tablet PO (06:31)
--- NOTE | 2023-12-14 06:50 | NURSING ---
Resident reports self-transferred from the bathroom to bed d/t waiting for staff for approximately 20 minutes. Advised to call for staff assistance w/ transfers until further directed per therapy. Notes she used a pair of hospital pants to get her rt leg into bed.
[2023-12-14] MEDS: Ascorbic Acid 500 MG Tablet PO ×2 (08:14→17:10)
[2023-12-14] MEDS: Multivitamins,Therapeutic Tablet 1 TABLET PO (08:14)
[2023-12-14] MEDS: Loratadine 10 MG Tablet PO (08:14)
[2023-12-14] MEDS: Potassium Chloride Oral Tablet 20 MEQ PO ×3 (08:14→17:11)
[2023-12-14] MEDS: AMILORIDE HCL 5 MG TABLET PO (08:14)
[2023-12-14] MEDS: Aspirin E.C. 81 MG Tablet PO ×2 (08:14→17:10)
[2023-12-14] MEDS: Triamterene 37.5MG/Hctz 25MG Capsule 1 CAP PO (08:14)
[2023-12-14] MEDS: Venlafaxine XR 75 MG Capsule PO (08:14)
[2023-12-14] MEDS: lamoTRIgine 100 MG Tablet PO (08:14)
[2023-12-14] MEDS: Topiramate 100 MG Tablet PO ×2 (08:15→22:24)
--- NOTE | 2023-12-14 08:19 | NURSING ---
Post Manager Note; MDS for 12/14/2023 Complete
[2023-12-14] MEDS: traMADol 50 MG Tablet PO ×2 (09:56→22:23)
[2023-12-14] MEDS: Gabapentin 600 MG Tablet PO ×2 (09:56→22:23)
[2023-12-14 16:00] VITALS: BP 116/80; PULSE 87; RESP 18; TEMP 36.3; O2SAT 98
[2023-12-14] MEDS: Atorvastatin Calcium 20 MG Tablet PO (22:23)
[2023-12-15] MEDS: oxyCODONE 5 MG Tablet PO ×4 (01:45→20:15)
[2023-12-15] MEDS: Levothyroxine 88 MCG Tablet PO (05:53)
[2023-12-15] MEDS: Pantoprazole Sodium 40 MG Tablet PO (05:53)
[2023-12-15] MEDS: Acetaminophen 500 MG Tablet 1000 MG PO ×3 (05:53→20:17)
[2023-12-15] MEDS: tiZANidine HCl 2 MG Tablet 4 MG PO ×3 (05:54→20:16)
[2023-12-15 08:07] LABS: Absolute Lymphocyte Count 1.51 X10^3/uL (0.83-4.51); Basophil# 0.07 X10^3/uL; Basophil% 0.8 % (0-1); Eosinophils% 5.7 % (0-5); Hematocrit 28.7 % (37-47); Hemoglobin 8.9 g/dL (12.0-15.0); Lymphocyte # 1.51 X10^3/ul (0.83-4.51); Lymphocyte % 17.3 % (19-41); Mean Corpuscular Hgb 28.3 pg (27.0-32.0); Mean Corpuscular Volume 91.4 fL (81-99); Mean Platelet Vol. 9.5 fl (6.2-12.0); Monocyte# 0.53 X10^3/uL; Monocyte% 6.1 % (0-10); NRBC Flagged by Analyzer 0 % (0-5); Neutrophil # 6.01 X10^3/uL (2.7-7.7); Neutrophil % 68.7 % (47-70); Platelet Count 552 K/mm3 (150-450); RBC Distribution Width CV 15.7 % (11.6-14.6); RBC Distribution Width SD 51.6 fl (35.1-43.9); Red Blood Count 3.14 M/mm3 (4.2-5.4); White Blood Count 8.7 K/mm3 (4.4-11.0)
[2023-12-15] MEDS: Potassium Chloride Oral Tablet 20 MEQ PO ×3 (08:29→16:08)
[2023-12-15] MEDS: Aspirin E.C. 81 MG Tablet PO ×2 (08:29→16:08)
[2023-12-15] MEDS: Ascorbic Acid 500 MG Tablet PO ×2 (08:29→16:08)
[2023-12-15] MEDS: Multivitamins,Therapeutic Tablet 1 TABLET PO (08:29)
[2023-12-15] MEDS: lamoTRIgine 100 MG Tablet PO (08:30)
[2023-12-15] MEDS: Topiramate 100 MG Tablet PO ×2 (08:30→20:16)
[2023-12-15] MEDS: Loratadine 10 MG Tablet PO (08:30)
[2023-12-15] MEDS: Venlafaxine XR 75 MG Capsule PO (08:30)
[2023-12-15] MEDS: Triamterene 37.5MG/Hctz 25MG Capsule 1 CAP PO (08:30)
[2023-12-15] MEDS: AMILORIDE HCL 5 MG TABLET PO (08:30)
[2023-12-15 09:11] LABS: Anion Gap 5 (5-15); BUN 17 mg/dL (7-18); BUN/Creat Ratio 24.4 RATIO (10-20); Calcium,Total 8.7 mg/dL (8.5-10.1); Chloride 111 mmol/L (98-107); EST Glomerular Filtration Rate 94 mL/min (>60); Est Glom Filt Rate - Afr Amer 113 mL/min (>60); Estimated Creatinine Clearance 109.04 ml/min; Glucose 104 mg/dL (74-106); Potassium 3.8 mmol/L (3.5-5.1); Sodium Level 139 mmol/L (136-145)
[2023-12-15] MEDS: Gabapentin 600 MG Tablet PO ×2 (09:52→20:16)
[2023-12-15] MEDS: traMADol 50 MG Tablet PO ×2 (09:52→20:16)
[2023-12-15] MEDS: Tuberculin,Purif.prot.deriv. 50 TU/ML Vial 0.1 ML ID (09:52)
[2023-12-15 16:00] VITALS: BP 109/67; PULSE 75; RESP 16; TEMP 36.6; O2SAT 96
[2023-12-15] MEDS: Senna/Docusate Sodium 1 Tablet 2 TABLET PO (20:18)
[2023-12-15] MEDS: Atorvastatin Calcium 20 MG Tablet PO (20:18)
[2023-12-16] MEDS: oxyCODONE 5 MG Tablet PO ×6 (00:15→21:29)
[2023-12-16] MEDS: Levothyroxine 88 MCG Tablet PO (05:38)
[2023-12-16] MEDS: tiZANidine HCl 2 MG Tablet 4 MG PO ×3 (05:38→21:29)
[2023-12-16] MEDS: Acetaminophen 500 MG Tablet 1000 MG PO ×3 (05:38→21:30)
[2023-12-16] MEDS: Pantoprazole Sodium 40 MG Tablet PO (05:38)
[2023-12-16 08:22] VITALS: BP 92/58; PULSE 77; RESP 16; TEMP 36.3; O2SAT 96
[2023-12-16] MEDS: Loratadine 10 MG Tablet PO (08:28)
[2023-12-16] MEDS: Multivitamins,Therapeutic Tablet 1 TABLET PO (08:28)
[2023-12-16] MEDS: lamoTRIgine 100 MG Tablet PO (08:28)
[2023-12-16] MEDS: Venlafaxine XR 75 MG Capsule PO (08:29)
[2023-12-16] MEDS: Aspirin E.C. 81 MG Tablet PO ×2 (08:29→17:36)
[2023-12-16] MEDS: Ascorbic Acid 500 MG Tablet PO ×2 (08:29→17:36)
[2023-12-16] MEDS: AMILORIDE HCL 5 MG TABLET PO (08:29)
[2023-12-16] MEDS: Potassium Chloride Oral Tablet 20 MEQ PO ×3 (08:29→17:36)
[2023-12-16] MEDS: Gabapentin 600 MG Tablet PO ×3 (10:43→21:28)
[2023-12-16] MEDS: Topiramate 100 MG Tablet PO ×2 (10:46→21:30)
[2023-12-16] MEDS: traMADol 50 MG Tablet PO ×2 (10:48→21:28)
[2023-12-16 10:50] VITALS: BP 104/63; PULSE 77
--- NOTE | 2023-12-16 10:50 | NURSING ---
held dyazide per pt request d/t lower BP than normal early AM 92/58 HR 77. rechecked 104/63 -77. pt admitted that she has not been drinking fluids like she normally does. resting in bed. call light in reach.
[2023-12-16] MEDS: Senna/Docusate Sodium 1 Tablet 2 TABLET PO (21:30)
[2023-12-16] MEDS: Atorvastatin Calcium 20 MG Tablet PO (21:31)
[2023-12-17] MEDS: oxyCODONE 5 MG Tablet PO ×4 (02:15→16:53)
[2023-12-17] MEDS: Acetaminophen 500 MG Tablet 1000 MG PO ×3 (06:04→21:12)
[2023-12-17] MEDS: Levothyroxine 88 MCG Tablet PO (06:04)
[2023-12-17] MEDS: Pantoprazole Sodium 40 MG Tablet PO (06:04)
[2023-12-17] MEDS: tiZANidine HCl 2 MG Tablet 4 MG PO ×3 (06:05→21:11)
[2023-12-17] MEDS: Potassium Chloride Oral Tablet 20 MEQ PO ×3 (08:01→16:51)
[2023-12-17] MEDS: Multivitamins,Therapeutic Tablet 1 TABLET PO (08:02)
[2023-12-17] MEDS: Ascorbic Acid 500 MG Tablet PO ×2 (08:02→16:51)
[2023-12-17] MEDS: Aspirin E.C. 81 MG Tablet PO ×2 (08:02→16:51)
[2023-12-17] MEDS: Senna/Docusate Sodium 1 Tablet 2 TABLET PO (09:32)
[2023-12-17] MEDS: lamoTRIgine 100 MG Tablet PO (09:32)
[2023-12-17] MEDS: Gabapentin 600 MG Tablet PO ×2 (09:33→21:10)
[2023-12-17] MEDS: traMADol 50 MG Tablet PO ×2 (09:33→21:10)
[2023-12-17] MEDS: Venlafaxine XR 75 MG Capsule PO (09:34)
[2023-12-17] MEDS: Topiramate 100 MG Tablet PO ×2 (09:34→21:12)
[2023-12-17] MEDS: AMILORIDE HCL 5 MG TABLET PO (09:34)
[2023-12-17] MEDS: Triamterene 37.5MG/Hctz 25MG Capsule 1 CAP PO (09:34)
[2023-12-17] MEDS: Loratadine 10 MG Tablet PO (09:34)
[2023-12-17 16:00] VITALS: BP 129/79; PULSE 80; RESP 14; TEMP 36.4; O2SAT 97
[2023-12-17] MEDS: Atorvastatin Calcium 20 MG Tablet PO (21:13)
[2023-12-18] MEDS: oxyCODONE 5 MG Tablet PO ×5 (00:37→19:40)
[2023-12-18] MEDS: Acetaminophen 500 MG Tablet 1000 MG PO ×3 (05:51→20:29)
[2023-12-18] MEDS: tiZANidine HCl 2 MG Tablet 4 MG PO ×3 (05:51→20:29)
[2023-12-18] MEDS: Levothyroxine 88 MCG Tablet PO (05:52)
[2023-12-18] MEDS: Pantoprazole Sodium 40 MG Tablet PO (05:52)
[2023-12-18 06:00] VITALS: BMI 36.8
[2023-12-18] MEDS: Venlafaxine XR 75 MG Capsule PO (08:47)
[2023-12-18] MEDS: Loratadine 10 MG Tablet PO (08:47)
[2023-12-18] MEDS: Triamterene 37.5MG/Hctz 25MG Capsule 1 CAP PO (08:47)
[2023-12-18] MEDS: Aspirin E.C. 81 MG Tablet PO ×2 (08:47→17:25)
[2023-12-18] MEDS: AMILORIDE HCL 5 MG TABLET PO (08:47)
[2023-12-18] MEDS: Ascorbic Acid 500 MG Tablet PO ×2 (08:47→17:25)
[2023-12-18] MEDS: Potassium Chloride Oral Tablet 20 MEQ PO ×3 (08:47→17:25)
[2023-12-18] MEDS: Multivitamins,Therapeutic Tablet 1 TABLET PO (08:47)
[2023-12-18] MEDS: lamoTRIgine 100 MG Tablet PO (08:47)
[2023-12-18] MEDS: Topiramate 100 MG Tablet PO ×2 (08:48→20:29)
[2023-12-18] MEDS: Gabapentin 600 MG Tablet PO ×2 (08:50→20:28)
[2023-12-18] MEDS: traMADol 50 MG Tablet PO ×2 (08:50→20:28)
[2023-12-18] MEDS: Buprenorphine 5 MCG PATCH.TDWK 1 PATCH TD (11:02)
--- NOTE | 2023-12-18 11:05 | NURSING ---
NANCY PATCH REMOVED FROM RIGHT LOWER BACK. WASTED WITH Prem BLOOM IN RX DESTROYER. NEW PATCH APPLIED TO LEFT UPPER BACK.
--- NOTE | 2023-12-18 11:05 | NURSING ---
This nurse witnessed waste of Butrans patch with MARIO Lang
--- NOTE | 2023-12-18 12:40 | NURSING ---
R' LEFT UNIT AT 1235 WITH SISTER FOR APPT WITH DR DUNN.
--- NOTE | 2023-12-18 14:45 | NURSING ---
Patient returned to unit following appt.
[2023-12-18 16:00] VITALS: BP 95/67; PULSE 84; RESP 14; TEMP 36.4; O2SAT 96
--- NOTE | 2023-12-18 16:24 | CASEMGMT ---
Social Work Social Work received [facility] Medicare Notice of Medicare Non-Coverage for current [facility] services effective on 12/20/2023; anticipate discharge on 12/21/2023. SW met with patient at bedside to review [facility]OM[facility] at bedside and notified patient of Medicare Right to appeal discharge. SW provided patient with contact information for Karlie BROWN [phone]; patient declined to appeal at this time. Patient informed SW that she feels ready to discharge. Patient informed SW that she would like to return home with resumption of [facility]. SW discussed services provided. Patient informed SW that she currently obtain residential support via [facility]. SW submit referral via [facility]. Patient informed SW that she will have family provide transportation to home. 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
--- NOTE | 2023-12-18 19:02 | PCM.DC.SUM ---
Providers Date of Admission: 12/07/23 Primary Care Physician: No Primary Care Phys Reason For Visit: RIGHT HIP ARTHROPLASTY Diagnosis Discharge Diagnosis (1) Debility: Status: Acute Code(s): R53.81 - Other malaise (2) Degenerative joint disease of right hip: Status: Acute Code(s): M16.11 - Unilateral primary osteoarthritis, right hip Qualifiers: Osteoarthritis type: primary Qualified Code(s): M16.11 - Unilateral primary osteoarthritis, right hip (3) Status post total hip replacement, right: Status: Acute Code(s): Z96.641 - Presence of right artificial hip joint (4) M?ni?re's disease: Status: Chronic Code(s): H81.09 - Meniere's disease, unspecified ear (5) Hyperlipidemia: Status: Acute Code(s): E78.5 - Hyperlipidemia, unspecified (6) Osteoarthritis: Status: Acute Code(s): M19.90 - Unspecified osteoarthritis, unspecified site (7) Vitamin D deficiency: Status: Acute Code(s): E55.9 - Vitamin D deficiency, unspecified (8) Allergic rhinitis: Status: Acute Code(s): J30.9 - Allergic rhinitis, unspecified (9) Neuropathic pain: Status: Acute Code(s): M79.2 - Neuralgia and neuritis, unspecified (10) Depression: Status: Acute Code(s): F32.A - Depression, unspecified (11) Hypothyroidism: Status: Acute Code(s): E03.9 - Hypothyroidism, unspecified (12) Muscle spasm: Status: Acute Code(s): M62.838 - Other muscle spasm (13) Nausea: Status: Acute Code(s): R11.0 - Nausea (14) GERD (gastroesophageal reflux disease): Status: Acute Code(s): K21.9 - Gastro-esophageal reflux disease without esophagitis (15) Hypokalemia: Status: Acute Code(s): E87.6 - Hypokalemia (16) Migraine headache: Status: Acute Code(s): G43.909 - Migraine, unspecified, not intractable, without status migrainosus (17) Essential (primary) hypertension: Status: Acute Code(s): I10 - Essential (primary) hypertension Plan 53 year old female with below past medical history hospitalized for elective right total hip arthroplasty 12/04/[address] Brown, admitted to TCU with debility, here for rehabilitation, strengthening, prior to discharge home alone. Debility - PT/OT. Pain - Tylenol 1000mg q8, Butrans 5mcg 1 patch td qweek, Tramadol 50mg bid, Oxycodone 5mg q4 prn pain (1-10). Bowel - senna/colace 2 tablets bid, Dulcolax 10mg po daily prn. Adult immunization - Administer pneumonia vaccine, covid vaccine, flu vaccine as appropriate. DVT prophylaxis - Aspirin 81mg bid thru 01/04/2024. Meniere's disease - Amiloride 5mg daily, Meclizine 12.5mg q6 prn. Vitamin C deficiency - Vitamin C 500mg bidcm. Hyperlipidemia - Atorvastatin 20mg qhs. s/p right total hip arthroplasty - Doxycycline 100mg bid thru 12/13/2023 prophylaxis. Allergic rhinitis - Loratadine 10mg daily, Flonase 1 spray bid prn Neuropathic pain - Gabapentin 600mg bid. 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 Hypothyroidism - Levothyroxine 88mcg daily. Nutrition - MVI 1 tablet daily. Nausea - Zofran 4mg q8 prn. GERD - Pantoprazole 40mg daily. Hypokalemia - KCL 20meq tidcm. Muscle spasm - Tizanidine 4mg qhs prn. Migraine - Topamax 100mg bid, Maxalt 10mg po x 1, then prn. Hypertension - Maxzide 37.5mg/25mg daily. Medications at Discharge Home Medications amiloride 5 mg tablet 1 tab PO DAILY MENERIES 03/27/20 omeprazole 40 mg capsule,delayed release 40 mg PO DAILY PER 08/17/21 ondansetron HCl 4 mg tablet 4 mg PO Q8H PRN NAUSEA 08/17/21 topiramate 100 mg tablet 100 mg PO BID MIGRAINES 08/17/21 fluticasone propionate 50 mcg/actuation nasal spray,suspension 1 spray DAILY PRN ALLERGIES 10/21/21 venlafaxine 75 mg capsule,extended release 24 hr (Effexor XR) 75 mg PO DAILY PER 12/27/21 rosuvastatin 10 mg tablet 10 mg PO DAILY PER DR REAGAN 01/24/23 levothyroxine 88 mcg tablet (Levoxyl) 88 mcg PO DAILY Thyroid 02/20/23 potassium chloride 20 mEq tablet,extended release 20 meq PO TID PER DR 02/20/23 triamterene 37.5 mg-hydrochlorothiazide 25 mg tablet 1 tab PO DAILY PER DR 02/20/23 cetirizine 10 mg tablet (Zyrtec) 10 mg PO DAILY allergy symptoms 03/08/23 lamotrigine 100 mg tablet 100 mg PO DAILY PER DR 03/08/23 multivitamin (Daily Multi-Vitamin tablet) 1 tab PO DAILY PER DR 08/20/23 acetaminophen 500 mg tablet 1,000 mg (2 x 500 mg) PO Q8 Pain #0 tabs 09/12/23 oxycodone 5 mg tablet 5 mg PO Q4H PRN Pain Score 4-10 09/25/23 ascorbic acid (vitamin C) 500 mg tablet (Vitamin C) 500 mg PO BIDCM supplement 12/08/23 aspirin 81 mg tablet,delayed release (Enteric Coated Aspirin) 81 mg PO BID per doc 12/08/23 buprenorphine 5 mcg/hour weekly transdermal patch 1 patch topical QWEEK pain 12/08/23 doxycycline monohydrate 100 mg capsule 100 mg PO BID infection prevention 12/08/23 gabapentin 600 mg tablet 600 mg PO BID neuropathy 12/08/23 meclizine 25 mg tablet 12.5 mg PO TID PRN dizziness 12/08/23 sennosides 8.6 mg tablet (senna) 17.2 mg PO QHS stool softener 12/08/23 tizanidine 4 mg tablet 4 mg PO QHS muscle relaxant 12/08/23 tramadol 50 mg tablet 50 mg PO BID pain 12/08/23 acetaminophen 500 mg tablet 1,000 mg (2 x 500 mg) PO Q8 #0 tabs 12/18/23 amiloride 5 mg tablet 5 mg PO DAILY #0 tabs 12/18/23 ascorbic acid (vitamin C) 500 mg tablet 500 mg PO BIDCM #0 tabs 12/18/23 aspirin 81 mg tablet,delayed release 81 mg PO BIDCM 14 days #0 tabs 12/18/23 buprenorphine 5 mcg/hour weekly transdermal patch 1 patch transdermal Q7D #0 ea 12/18/23 fluticasone propionate 50 mcg/actuation nasal spray,suspension 1 spray NASAL BID PRN PRN SINUS CONGESTION #0 grams 12/18/23 gabapentin 600 mg tablet 600 mg PO BID #0 tabs 12/18/23 lamotrigine 100 mg tablet 100 mg PO DAILY #0 tabs 12/18/23 levothyroxine 88 mcg tablet 88 mcg PO DAILY@0600 #0 tabs 12/18/23 meclizine 12.5 mg tablet 12.5 mg PO Q6H PRN PRN Vertigo #0 tabs 12/18/23 multivitamin 1 tab PO DAILYCM #0 tabs 12/18/23 nicotine 7 mg/24 hr daily transdermal patch 7 mg transdermal DAILY@0600 30 days #30 ea 12/18/23 oxycodone 5 mg tablet 5 mg PO Q4H PRN PRN Pain Score 1-10 #0 tabs 12/18/23 pantoprazole 40 mg tablet,delayed release 40 mg PO 0600 #0 tabs 12/18/23 potassium chloride 20 mEq tablet,extended release(part/cryst) 20 meq PO TIDCM 30 days #90 tabs 12/18/23 tizanidine 2 mg tablet 4 mg (2 x 2 mg) PO TID #0 tabs 12/18/23 topiramate 100 mg tablet 100 mg PO BID #0 tabs 12/18/23 tramadol 50 mg tablet 50 mg PO BID #0 tabs 12/18/23 triamterene 37.5 mg-hydrochlorothiazide 25 mg capsule 1 cap PO DAILY #0 caps 12/18/23 venlafaxine 75 mg capsule,extended release 24 hr 75 mg PO DAILY #0 caps 12/18/23 Hospital Course Operations total hip replacement (Right.) Procedures None Summary of Care Provided Minutes Spent on Discharge: 35 Hospital Course: 53 year old female with below past medical history hospitalized for elective right total hip arthroplasty 12/04/[address] Brown, admitted to TCU with debility, here for rehabilitation, strengthening, prior to discharge home alone. 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 Physical Exam Const alert General Appearance: cooperative HEENT normocephalic Eyes PERRL and EOMs intact bilaterally Neck supple, no JVD and no carotid bruits Resp normal respiratory effort, normal air movement and clear to auscultation bilaterally Cardio regular rate and regular rhythm GI normal to inspection, nondistended, normoactive bowel sounds, non-tender and non-distended Extremity normal capillary refill General Extremity: Negative for edema Skin no rashes or lesions noted General Skin Exam: no breakdown Psych affect normal Appearance: appropriate Weight / BMI Weight Weight: 100.335 kg Body Mass Index (BMI) 36.8 ABG / Lab / Microbiology Data 12/15/23 07:25 12/15/23 07:25 D/C Instructions Discharge Diet: No restrictions Discharge Activity: Return to Normal Activity, May Shower and Use Walker Weight Bearing Status: Weight bearing as tolerated Call your doctor if you observe: Fever of 101 or Higher, Inability to urinate, Inability to have a bowel movement, Shortness of breath, Dizziness, Fainting spells, Swelling in the ankles, Chest pain and Uncontrolled pain Additional Instructions: Discharge home alone 12/21/2023, [facility] PT/OT/SN/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 Please Follow Up With: Dr. Brown When: As scheduled. Meaningful Use Info Meaningful Use Meaningful Use Diagnoses (Choose all that apply): None applicable Ischemic Stroke Statin Dosing Therapy Reference: STATIN DOSE THERAPY REFERENCE: * Patients > 75 years receive moderate or high dose statin therapy. * Patients 75 years or YOUNGER should receive HIGH intensity statin dose unless contraindicated. You will be required to document reason for non-treatment if statin daily dose does not meet guidelines. HIGH DOSE STATIN THERAPY DAILY Atorvastatin > than or = to 40 mg Rosuvastatin > than or = to 20 mg Amlodipine + Atorvastatin > than or = to 2.5/40 mg Ezetimibe + Simvastatin 10/80 mg Simvastatin 80mg Discharge Plan Admission Admit Date/Time: 12/07/23 21:20 Primary Reason for Your Visit: Debility. 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 Discharge Orders/Prescriptions Prescriptions: New acetaminophen 500 mg Tablet 1,000 mg PO Q8 Qty: 0 0RF amiloride 5 mg Tablet 5 mg PO DAILY Qty: 0 0RF ascorbic acid (vitamin C) 500 mg Tablet 500 mg PO BIDCM Qty: 0 0RF aspirin 81 mg Tablet,Delayed Release (Dr/Ec) 81 mg PO BIDCM 14 Days Qty: 0 0RF multivitamin Tablet 1 tab PO DAILYCM Qty: 0 0RF gabapentin 600 mg Tablet 600 mg PO BID Qty: 0 0RF meclizine 12.5 mg Tablet 12.5 mg PO Q6H PRN PRN (Reason: Vertigo) Qty: 0 0RF levothyroxine 88 mcg Tablet 88 mcg PO DAILY@0600 Qty: 0 0RF fluticasone propionate 50 mcg/actuation [place],Suspension 1 spray NASAL BID PRN PRN (Reason: SINUS CONGESTION) Qty: 0 0RF lamotrigine 100 mg Tablet 100 mg PO DAILY Qty: 0 0RF buprenorphine 5 mcg/hour Patch Weekly 1 patch transdermal Q7D Qty: 0 0RF nicotine 7 mg/24 hr Patch 24 Hour 7 mg transdermal DAILY@0600 30 Days Qty: 30 0RF venlafaxine 75 mg Capsule,Extended Release 24hr 75 mg PO DAILY Qty: 0 0RF tizanidine 2 mg Tablet 4 mg PO TID Qty: 0 0RF tramadol 50 mg Tablet 50 mg PO BID Qty: 0 0RF triamterene-hydrochlorothiazid 37.5-25 mg Capsule 1 cap PO DAILY Qty: 0 0RF potassium chloride 20 mEq Tablet,Er Particles/Crystals 20 meq PO TIDCM 30 Days Qty: 90 0RF pantoprazole 40 mg Tablet,Delayed Release (Dr/Ec) 40 mg PO 0600 Qty: 0 0RF topiramate 100 mg Tablet 100 mg PO BID Qty: 0 0RF oxycodone 5 mg Tablet 5 mg PO Q4H PRN PRN (Reason: Pain Score 1-10) Qty: 0 0RF Continued rosuvastatin 10 mg tablet 10 mg PO DAILY No Action topiramate 100 mg tablet 100 mg PO BID omeprazole 40 mg capsule,delayed release(DR/EC) 40 mg PO DAILY ondansetron HCl 4 mg tablet 4 mg PO Q8H PRN (Reason: NAUSEA) cetirizine [Zyrtec] 10 mg tablet 10 mg PO DAILY lamotrigine 100 mg tablet 100 mg PO DAILY fluticasone propionate 50 mcg/actuation spray,suspension 1 spray NASAL DAILY PRN (Reason: ALLERGIES) amiloride 5 mg tablet 1 tab PO DAILY venlafaxine [Effexor XR] 75 mg Capsule,Extended Release 24hr 75 mg PO DAILY levothyroxine [Levoxyl] 88 mcg tablet 88 mcg PO DAILY potassium chloride 20 mEq tablet extended release 20 meq PO TID triamterene-hydrochlorothiazid 37.5-25 mg tablet 1 tab PO DAILY multivitamin [Daily Multi-Vitamin] Tablet 1 tab PO DAILY Patient Comments: ASKING AT APPT ON 08/24 ABOUT STOPPING acetaminophen 500 mg Tablet 1,000 mg PO Q8 Qty: 0 0RF oxycodone 5 mg Tablet 5 mg PO Q4H PRN (Reason: Pain Score 4-10) Rx Instructions: for up to 7 days starting 12/07/23. doxycycline monohydrate 100 mg capsule 100 mg PO BID Rx Instructions: 11 doses. tramadol 50 mg tablet 50 mg PO BID tizanidine 4 mg tablet 4 mg PO QHS buprenorphine 5 mcg/hour patch weekly 1 patch topical QWEEK sennosides [senna] 8.6 mg tablet 17.2 mg PO QHS aspirin [Enteric Coated Aspirin] 81 mg tablet,delayed release (DR/EC) 81 mg PO BID ascorbic acid (vitamin C) [Vitamin C] 500 mg tablet 500 mg PO BIDCM gabapentin 600 mg Tablet 600 mg PO BID meclizine 25 mg tablet 12.5 mg PO TID PRN (Reason: dizziness) Referrals / Follow Up: Care Physician,No Primary [Primary Care Provider] - Disposition Disposition (needs filled in before D/C Order can be placed): Home Health Service
[2023-12-18] MEDS: Atorvastatin Calcium 20 MG Tablet PO (20:30)
[2023-12-19] MEDS: Acetaminophen 500 MG Tablet 1000 MG PO ×3 (05:24→22:04)
[2023-12-19] MEDS: Pantoprazole Sodium 40 MG Tablet PO (05:24)
[2023-12-19] MEDS: tiZANidine HCl 2 MG Tablet 4 MG PO ×3 (05:24→22:04)
[2023-12-19] MEDS: Levothyroxine 88 MCG Tablet PO (05:24)
[2023-12-19] MEDS: oxyCODONE 5 MG Tablet PO ×4 (05:24→22:03)
[2023-12-19] MEDS: Multivitamins,Therapeutic Tablet 1 TABLET PO (09:00)
[2023-12-19] MEDS: Potassium Chloride Oral Tablet 20 MEQ PO ×3 (09:00→18:00)
[2023-12-19] MEDS: Aspirin E.C. 81 MG Tablet PO ×2 (09:00→18:00)
[2023-12-19] MEDS: Triamterene 37.5MG/Hctz 25MG Capsule 1 CAP PO (09:01)
[2023-12-19] MEDS: Loratadine 10 MG Tablet PO (09:01)
[2023-12-19] MEDS: Gabapentin 600 MG Tablet PO ×2 (09:01→22:03)
[2023-12-19] MEDS: lamoTRIgine 100 MG Tablet PO (09:01)
[2023-12-19] MEDS: Venlafaxine XR 75 MG Capsule PO (09:01)
[2023-12-19] MEDS: AMILORIDE HCL 5 MG TABLET PO (09:01)
[2023-12-19] MEDS: Topiramate 100 MG Tablet PO ×2 (09:01→22:03)
[2023-12-19] MEDS: Ascorbic Acid 500 MG Tablet PO ×2 (09:01→17:59)
[2023-12-19] MEDS: traMADol 50 MG Tablet PO ×2 (09:05→22:03)
[2023-12-19 09:06] VITALS: BP 115/76; PULSE 87
--- NOTE | 2023-12-19 09:19 | CASEMGMT ---
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 Patient inquired about home health care services providing transportation. SW discussed private duty services and [facility]. Patient was provided transportation resources on prior assessment. SW provided patient with additional resources for [facility] agency for aging. SW will continue to follow to assist with discharge planning. ZACHARY Marcelino
[2023-12-19 16:00] VITALS: BP 107/60; PULSE 75; RESP 14; TEMP 36.4; O2SAT 98
[2023-12-19] MEDS: Senna/Docusate Sodium 1 Tablet 2 TABLET PO (22:04)
[2023-12-19] MEDS: Atorvastatin Calcium 20 MG Tablet PO (22:04)
[2023-12-20] MEDS: Pantoprazole Sodium 40 MG Tablet PO (05:48)
[2023-12-20] MEDS: Levothyroxine 88 MCG Tablet PO (05:48)
[2023-12-20] MEDS: Acetaminophen 500 MG Tablet 1000 MG PO ×3 (05:49→21:35)
[2023-12-20] MEDS: tiZANidine HCl 2 MG Tablet 4 MG PO ×3 (05:49→21:36)
--- NOTE | 2023-12-20 08:16 | NURSING ---
Called Dr. Brown's office, spoke with Ysabel about patient discharging on 12/20, wanting dressing removed and ana out before DC. Discussed that previous appts w/ Dr. Brown were cancelled d/t patient being unable to get transport set up/pay for transport. Ysabel said Dr. Brown is in surgery today. Asked that they message Dr. Brown and see if he has any orders about dressing being removed or ana coming out. They will call back.
[2023-12-20] MEDS: traMADol 50 MG Tablet PO ×2 (09:24→21:35)
[2023-12-20] MEDS: Gabapentin 600 MG Tablet PO ×2 (09:24→21:35)
[2023-12-20] MEDS: Potassium Chloride Oral Tablet 20 MEQ PO ×3 (09:27→16:59)
[2023-12-20] MEDS: lamoTRIgine 100 MG Tablet PO (09:27)
[2023-12-20] MEDS: Venlafaxine XR 75 MG Capsule PO (09:27)
[2023-12-20] MEDS: Triamterene 37.5MG/Hctz 25MG Capsule 1 CAP PO (09:28)
[2023-12-20] MEDS: Loratadine 10 MG Tablet PO (09:28)
[2023-12-20] MEDS: Aspirin E.C. 81 MG Tablet PO ×2 (09:28→16:59)
[2023-12-20] MEDS: Ascorbic Acid 500 MG Tablet PO (09:28)
[2023-12-20] MEDS: AMILORIDE HCL 5 MG TABLET PO (09:28)
[2023-12-20] MEDS: Multivitamins,Therapeutic Tablet 1 TABLET PO (09:28)
[2023-12-20] MEDS: Topiramate 100 MG Tablet PO ×2 (09:28→21:35)
--- NOTE | 2023-12-20 09:58 | MDS.RN ---
Information for the MDS was obtained from review of the clinical record, interview of resident, staff, and direct observation of resident?s care.
--- NOTE | 2023-12-20 10:11 | NURSING ---
Fax received from Dr. Brown's office. N.O. to remove ana as long as incision looks good with no discharge. Order entered.
--- NOTE | 2023-12-20 10:14 | NURSING ---
Call from Dr. Brown, received verbal orders to remove dressing and ana. He requested call back after ana removed at [phone]. He also stressed that patient needs to make appt to come see him. Updated patient's nurse MARIO Vu.
[2023-12-20] MEDS: oxyCODONE 5 MG Tablet PO (11:11)
--- NOTE | 2023-12-20 12:11 | CASEMGMT ---
Addendum entered by Apple Jeffers 12/20/23 14:42: SW met with patient to complete discharge MDS. BIM () and PhQ-2 (08/13). Patient informed SW that after having progressed with therapy and obtaining increased resources for support, she can see the light. Patient has a more positive outlook on discharge and returning home. Patient would like to increase family interaction and social support. Patient informed SW that her goal is to attend more family events and get more invitations. Original Note: Social Work SW submitted referral for [facility]. 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
--- NOTE | 2023-12-20 14:05 | MDS.RN ---
Pain interview for MDS completed.
--- NOTE | 2023-12-20 14:40 | NURSING ---
36 ana removed from left hip incision intact not drainage noted Steri Strips applied per Dr. Brown's order. Called and LVM with Dr. Brown to update on incision.
[2023-12-20 15:15] VITALS: BP 117/79; PULSE 92; RESP 17; TEMP 36.2; O2SAT 98
[2023-12-20] MEDS: Atorvastatin Calcium 20 MG Tablet PO (21:35)
[2023-12-20 21:45] VITALS: PULSE 88; RESP 16; O2SAT 96
[2023-12-21] MEDS: Pantoprazole Sodium 40 MG Tablet PO (06:02)
[2023-12-21] MEDS: Levothyroxine 88 MCG Tablet PO (06:02)
[2023-12-21] MEDS: tiZANidine HCl 2 MG Tablet 4 MG PO (06:02)
[2023-12-21] MEDS: Acetaminophen 500 MG Tablet 1000 MG PO (06:02)
[2023-12-21 06:06] VITALS: PULSE 78; O2SAT 97
[2023-12-21] MEDS: lamoTRIgine 100 MG Tablet PO (07:58)
[2023-12-21] MEDS: Venlafaxine XR 75 MG Capsule PO (07:58)
[2023-12-21] MEDS: AMILORIDE HCL 5 MG TABLET PO (07:58)
[2023-12-21] MEDS: Triamterene 37.5MG/Hctz 25MG Capsule 1 CAP PO (07:58)
[2023-12-21] MEDS: Potassium Chloride Oral Tablet 20 MEQ PO (07:58)
[2023-12-21] MEDS: Aspirin E.C. 81 MG Tablet PO (07:58)
[2023-12-21] MEDS: Multivitamins,Therapeutic Tablet 1 TABLET PO (07:58)
[2023-12-21] MEDS: Loratadine 10 MG Tablet PO (07:58)
[2023-12-21] MEDS: Topiramate 100 MG Tablet PO (07:59)
[2023-12-21] MEDS: Gabapentin 600 MG Tablet PO (09:08)
[2023-12-21] MEDS: traMADol 50 MG Tablet PO (09:08)
[2023-12-21] MEDS: oxyCODONE 5 MG Tablet PO (10:35)
[2023-12-21 11:22] VITALS: BP 114/79; PULSE 84; RESP 17; TEMP 36.4; O2SAT 97
--- NOTE | 2023-12-21 16:15 | CASEMGMT ---
Social Work Patient discharged home today with [facility] for skilled services. Refer to prior social work notes this admission for further details. Sent [facility] orders, discharged instructions and discharge summary to [facility] via [employer], for continuity of care of this patient. No other services requested or indicated. -AMANDA Christianson
== END 2023-12-21 11:30 | disposition home health service (06) | DRG 561 ==
PROVIDERS: Admitting Provider Family Medicine Geriatric Medicine; Visit Provider Family Medicine Geriatric Medicine
DX: Z47.1 Aftercare following joint replacement surgery (principal); E03.9 Hypothyroidism, unspecified; I10 Essential (primary) hypertension; F32.A Depression, unspecified; M16.11 Unilateral primary osteoarthritis, right hip; M62.838 Other muscle spasm; K21.9 Gastro-esophageal reflux disease without esophagitis; E55.9 Vitamin D deficiency, unspecified; J30.9 Allergic rhinitis, unspecified; G43.909 Migraine, unspecified, not intractable, without status migrainosus; E78.5 Hyperlipidemia, unspecified; E87.6 Hypokalemia; F17.290 Nicotine dependence, other tobacco product, uncomplicated; G62.9 Polyneuropathy, unspecified; H81.09 Meniere's disease, unspecified ear; Z96.641 Presence of right artificial hip joint; Z79.899 Other long term (current) drug therapy; Z79.890 Hormone replacement therapy; Z79.82 Long term (current) use of aspirin
CPT/HCPCS: 36415; 80048; 85025; 97110; 97116; 97162; 97165; 97530; 97535; 99406; A4216

== ENCOUNTER → 2024-04-16 | Outpatient (CLI) | payer MEDICARE, MEDICAID, SELFPAY ==
[2024-04-16 14:04] LABS: Hematocrit 41.2 % (37-47); Hemoglobin 12.8 g/dL (12.0-15.0); Mean Corp Hgb Conc 31.1 g/dL (32-36); Mean Corpuscular Hgb 26.4 pg (27.0-32.0); Mean Corpuscular Volume 85.1 fL (81-99); Platelet Count 318 K/mm3 (150-450); RBC Distribution Width SD 52.1 fl (35.1-43.9); Red Blood Count 4.84 M/mm3 (4.2-5.4); White Blood Count 8.5 K/mm3 (4.4-11.0)
[2024-04-16 14:41] LABS: ALB/GLOB Ratio 0.9 RATIO (0.9-2.4); AST(SGOT) 30 U/L (15-37); Alanine Aminotransfer ALT/SGPT 42 U/L (13-56); Albumin, Serum 3.9 g/dL (3.2-5.0); Alkaline Phosphatase 106 U/L (45-117); Anion Gap 6 (5-15); BUN 17 mg/dL (7-18); BUN/Creat Ratio 16.3 RATIO (10-20); Calcium,Total 9.8 mg/dL (8.5-10.1); Chloride 106 mmol/L (98-107); Cholesterol 193 mg/dL (200); Creatinine, Serum 1.04 mg/dL (0.55-1.02); EST Glomerular Filtration Rate 59 mL/min (>60); Est Glom Filt Rate - Afr Amer 71 mL/min (>60); Ferritin 16 ng/mL (8-252); Globulin 4.5 g/dL (2.2-4.2); Glucose 104 mg/dL (74-106); High Density Lipoprotein 76 mg/dL; Iron 76 ug/dL (50-170); Iron Binding Capacity,Total 401 ug/dL (250-450); Magnesium 2.3 mg/dL (1.6-2.6); Potassium 3.8 mmol/L (3.5-5.1); Protein, Total 8.4 g/dL (6.4-8.2); Sodium Level 137 mmol/L (136-145); Triglycerides 147 mg/dL; Very Low Density Lipoprotein 29 mg/dL (5-40)
[2024-04-16 14:54] LABS: Vitamin D,25 Hydroxy 31.3 ng/mL
== END | disposition home or self-care (01) ==
LOC: LAB 12:43
DX: D50.9 Iron deficiency anemia, unspecified (principal); I10 Essential (primary) hypertension; E78.00 Pure hypercholesterolemia, unspecified; E03.9 Hypothyroidism, unspecified; E55.9 Vitamin D deficiency, unspecified
CPT/HCPCS: 36415; 80053; 80061; 82306; 82728; 83540; 83550; 83735; 84443; 85027

== ENCOUNTER → 2024-09-09 | Outpatient (CLI) | payer MEDICARE, MEDICAID, SELFPAY ==
--- NOTE | 2024-09-09 16:43 | CT_ITS ---
PROCEDURE: CTA CHEST W CONTRAST REASON FOR EXAM: Thoracic aortic aneurysm. . TECHNIQUE: CTA imaging of the chest with intravenous contrast. 3D reconstructions. CONTRAST: Administered COMPARISON: None. FINDINGS: Hardware: Stimulator wires noted within the thoracic spinal canal. Lymph nodes: No mediastinal hilar or axillary lymphadenopathy. Heart: Normal heart size. No pericardial effusion. Thoracic Aorta: Ascending aorta, measured at the level the pulmonary artery bifurcation measures a pr oximally 4.1 by 4.0 cm. No dissection. The aortic arch measures 2.4 cm. The descending thoracic aorta measures approximately 2 .4 cm. Incidentally noted, retroesophageal right subclavian artery, normal variation. Pulmonary Vessels: No large central filling defects. Contrast timing was optimized for evaluation of the aorta. Lungs and Airways: Mild gravity dependent changes bilaterally. No focal airspace consolidation, pneu mothorax or pleural effusion is seen. Pleura: No pleural effusion. No pneumothorax. Upper Abdomen: Visualized portions of the upper abdominal viscera are unremarkable. Bones: Bone windows are unremarkable. CT/CTA Chest W/WO Contrast IMPRESSION: 1. Ascending aorta, measures up to 4.1 x 4.0 cm. No dissection is identified. 2. Mild gravity dependent changes bilaterally. No focal airspace consolidation , pneumothorax or pleural effusion is seen. One or more dose reduction techniques were used (e.g., Automated exposure contr ol, adjustment of the mA and/or kV according to patient size, use of iterative reconstruction technique). Reading [facility]
== END | disposition home or self-care (01) ==
LOC: CT 16:42
PROVIDERS: PCP Internal Medicine; Referring Provider Physician Assistant; Visit Provider Physician Assistant
DX: I71.21 Aneurysm of the ascending aorta, without rupture (principal)
CPT/HCPCS: 71275; Q9967; A4216

== ENCOUNTER → 2024-09-30 | Outpatient (CLI) | payer MEDICARE, MEDICAID, SELFPAY ==
[2024-09-30 13:28] LABS: Absolute Lymphocyte Count 1.66 X10^3/uL (0.83-4.51); Absolute Neutrophil Count 6.5 X10^3/uL (2.0-7.7); Basophil# 0.07 X10^3/uL; Basophil% 0.8 % (0-1); Eosinophil# 0.27 X10^3/uL; Hematocrit 42.9 % (37-47); Hemoglobin 13.8 g/dL (12.0-15.0); Lymphocyte # 1.66 X10^3/ul (0.83-4.51); Lymphocyte % 18.2 % (19-41); Mean Corp Hgb Conc 32.2 g/dL (32-36); Mean Corpuscular Hgb 29.2 pg (27.0-32.0); Mean Corpuscular Volume 90.7 fL (81-99); Mean Platelet Vol. 9.6 fl (6.2-12.0); Monocyte# 0.58 X10^3/uL; Monocyte% 6.4 % (0-10); NRBC Flagged by Analyzer 0 % (0-5); Neutrophil # 6.45 X10^3/uL (2.7-7.7); Neutrophil % 70.7 % (47-70); Platelet Count 274 K/mm3 (150-450); RBC Distribution Width CV 15.6 % (11.6-14.6); RBC Distribution Width SD 51.2 fl (35.1-43.9); Red Blood Count 4.73 M/mm3 (4.2-5.4); White Blood Count 9.1 K/mm3 (4.4-11.0)
[2024-09-30 14:26] LABS: AST(SGOT) 28 U/L (15-37); Alanine Aminotransfer ALT/SGPT 45 U/L (13-56); Albumin, Serum 3.9 g/dL (3.2-5.0); Alkaline Phosphatase 91 U/L (45-117); Anion Gap 8 (5-15); BUN 18 mg/dL (7-18); BUN/Creat Ratio 18.5 RATIO (10-20); Calcium,Total 9.4 mg/dL (8.5-10.1); Chloride 105 mmol/L (98-107); Cholesterol 182 mg/dL (200); Creatinine, Serum 0.97 mg/dL (0.55-1.02); EST Glomerular Filtration Rate 64 mL/min (>60); Est Glom Filt Rate - Afr Amer 77 mL/min (>60); Glucose 92 mg/dL (74-106); High Density Lipoprotein 84 mg/dL; Protein, Total 7.9 g/dL (6.4-8.2); Sodium Level 136 mmol/L (136-145); Triglycerides 121 mg/dL; Very Low Density Lipoprotein 24 mg/dL (5-40)
== END | disposition home or self-care (01) ==
LOC: LAB 13:04
PROVIDERS: PCP Internal Medicine; Referring Provider Physician Assistant; Visit Provider Physician Assistant
DX: I10 Essential (primary) hypertension (principal); E03.9 Hypothyroidism, unspecified; E78.5 Hyperlipidemia, unspecified
CPT/HCPCS: 36415; 80053; 80061; 84443; 85025

== ENCOUNTER → 2024-10-02 | Outpatient (CLI) | payer MEDICARE, MEDICAID, SELFPAY ==
--- NOTE | 2024-10-02 12:59 | ECHOD_ITS ---
Reason For Study Reason For Study: ANEURYSM OF AORTA Procedure This was a 2D Doppler, Color Flow transthoracic echocardiogram. Exam performed in department. Left Ventricle Mild concentric left ventricular hypertrophy. Normal LV size. Mild inferior septal hypokinesis. Overall left ventricular systolic ejection fraction estimated at 65%. Stage I diastolic dysfunction. Right Ventricle Normal right ventricle. Atria The left and right atria are normal. Mitral Valve Mild (1+) mitral valve insufficiency. Tricuspid Valve Trivial tricuspid valve insufficiency. Normal pulmonary artery pressure. Aortic Valve Trisinus/trileaflet aortic valve. Pulmonic Valve The pulmonic valve is not well visualized. Great Vessels Mildly dilated aortic root. Pericardium/Pleural No pericardial effusion. MMode/2D Measurements & Calculations LVIDd: 4.5 cm IVSd: 1.3 cm LVOT diam: 2.1 cm LVIDs: 2.6 cm LVPWd: 0.91 cm LVOT area: 3.6 cm2 FS: 42.5 % Ao root diam: 3.7 cm LAV(MOD-bp): 26.0 ml LVAd ap4: 29.7 cm2 LA dimension: 3.5 cm LAV(MOD-bp) Indexed: 12.6 ml/m2 LVLd ap4: 8.0 cm LAV(MOD-sp2): 26.4 ml EDV(MOD-sp4): 90.9 ml LAV(MOD-sp4): 24.5 ml EDV(sp4-el): 93.5 ml LVAs ap4: 15.5 cm2 LVLs ap4: 6.4 cm ESV(MOD-sp4): 31.7 ml ESV(sp4-el): 31.8 ml EF(MOD-sp4): 65.1 % EF(sp4-el): 66.0 % SV(MOD-sp4): 59.2 ml SV(sp4-el): 61.7 ml LA A4 area: 11.2 cm2 SI(MOD-sp4): 28.8 ml/m2 LA dimension(2D): 3.2 cm RA A4 area: 10.7 cm2 Time Measurements MV dec time: 0.11 sec Doppler Measurements & Calculations MV E max abiodun: 60.2 cm/sec Lat Peak E' Abiodun: 15.8 cm/sec Med Peak E' Abiodun: 11.7 cm/sec MV A max abiodun: 78.2 cm/sec E/E' lat: 3.8 E/E' med: 5.1 MV E/A: 0.77 Ao V2 max: 156.7 cm/sec LV V1 max: 135.5 cm/sec MV dec slope: 575.6 cm/sec2 Ao max P.8 mmHg LV V1 max P.4 mmHg Ao V2 mean: 112.7 cm/sec LV V1 mean P.9 mmHg Ao mean P.6 mmHg LV V1 mean: 88.7 cm/sec Ao V2 VTI: 29.0 cm LV V1 VTI: 28.5 cm AV (velocity ratio): 0.98 SHAJI(I,D): 3.5 cm2 SHAJI(V,D): 3.1 cm2 SV(LVOT): 102.8 ml PA V2 max: 121.7 cm/sec TR max abiodun: 239.2 cm/sec PA V2 mean: 85.4 cm/sec TR max P.9 mmHg ECHO/Echo Complete Interpretation Summary Mild concentric left ventricular hypertrophy. Mild inferior septal hypokinesis. Overall left ventricular systolic ejection fr action estimated at 65%. Stage I diastolic dysfunction Mild (1+) mitral valve insufficiency. Mildly dilated aortic root. Ordering Physician: Cheyenne Keller Referring Physician: Cheyenne Keller Performed By: Annelise Ragsdale RCS
== END | disposition home or self-care (01) ==
LOC: CVS 12:58
PROVIDERS: PCP Internal Medicine; Referring Provider Physician Assistant; Visit Provider Physician Assistant
DX: I71.21 Aneurysm of the ascending aorta, without rupture (principal)
CPT/HCPCS: 93306; Q9957; A4216

== ENCOUNTER → 2024-10-15 | Outpatient (CLI) | payer MEDICARE, MEDICAID, SELFPAY ==
--- NOTE | 2024-10-15 14:55 | BD_ITS ---
PROCEDURE: DEXA BONE DENSITY/APPEND SKEL REASON FOR EXAM: F, age 54 y/o . TECHNIQUE: DEXA scan of bilateral distal forearms COMPARISON: None. FINDINGS: T-SCORES: Left forearm: 0.678 g per cm2 (T-score -0.3); Right forearm: 0.675 g per cm2 (T-score -0.3); The T-scores are also available for review on the [facility] PACS or by accessing the [facility] electronic medical record. BD/Dexa Bone Density/Append Skel IMPRESSION: No evidence of osteopenia or osteoporosis. Reading Location: [id number]
== END | disposition home or self-care (01) ==
PROVIDERS: PCP Internal Medicine
DX: Z13.820 Encounter for screening for osteoporosis (principal); N95.9 Unspecified menopausal and perimenopausal disorder
CPT/HCPCS: 77081

== ENCOUNTER → 2024-11-18 | Outpatient (CLI) | payer MEDICARE, MEDICAID, SELFPAY | END | disposition home or self-care (01) | LOC: SL 13:29 | PROVIDERS: PCP Internal Medicine; Referring Provider Internal Medicine; Visit Provider Internal Medicine | DX: G47.10 Hypersomnia, unspecified (principal) | CPT/HCPCS: 95806 ==

== ENCOUNTER → 2024-12-01 | Outpatient (CLI) | payer MEDICARE, MEDICAID, SELFPAY ==
[2024-12-05 11:08] LABS: HPV APTIMA, High Risk Negative (Negative)
== END | disposition home or self-care (01) ==
LOC: LABSPEC 15:05
PROVIDERS: PCP Internal Medicine; Referring Provider Obstetrics & Gynecology; Visit Provider Obstetrics & Gynecology
DX: Z12.4 Encounter for screening for malignant neoplasm of cervix (principal)
CPT/HCPCS: 87624; 88175; G0145

== ENCOUNTER → 2024-12-11 | Outpatient (CLI) | payer MEDICARE, MEDICAID, SELFPAY ==
--- NOTE | 2024-12-11 15:00 | BI_ITS ---
EXAM: SCRN MAMM (CAD)W/JUAN CARLOS BILAT 12/11/2024 CLINICAL HISTORY: F, Age 54 y/o , SCREENING MAMMOGRAM TECHNIQUE: Bilateral screening digital breast tomosynthesis with 2D and 3D images. Computer aided detection. COMPARISON: Prior exam(s) dated 10/09/2022, 03/21/2021, 03/19/2020. FINDINGS: TISSUE DENSITY: The breast tissue is almost entirely fatty. Bilateral Breast Mammographic Findings: No significant masses, calcifications or other abnormalities are identified. BI/SCRN MAMM (CAD)W/JUAN CARLOS BILAT IMPRESSION: Right Breast: BIRADS 1 NEGATIVE. Left Breast: BIRADS 1 NEGATIVE. OVERALL FINAL ASSESSMENT: BIRADS 1 NEGATIVE. RECOMMENDATION: Routine annual follow-up in 1 Year A letter with findings and recommendations will be mailed to the patient. Reading Location: [id number]
== END | disposition home or self-care (01) ==
LOC: OPBI 14:47
PROVIDERS: PCP Internal Medicine; Referring Provider Obstetrics & Gynecology; Visit Provider Obstetrics & Gynecology
DX: Z12.31 Encounter for screening mammogram for malignant neoplasm of breast (principal)
CPT/HCPCS: 77063; 77067

== ENCOUNTER 2025-03-05 12:00 | Outpatient (RCR) | payer MEDICARE, MEDICAID, SELFPAY ==
--- NOTE | 2024-12-31 13:57 | HP.PTEVAL_ITS ---
Patient's Visit Information Visit Information Visit Information: BRUNO PATTERSON is a 54 year old F referred to Physical Therapy by Dr. Mercy Jin MD with a diagnosis of Back pain. Date of Evaluation: 12/31/24 Physical Therapist: Jacinto Kenney DPT Visit Plan Frequency: 2x /Week Duration: 4 Weeks Plan: In aquatic setting: Core strengthening, B hip strengthening, Pt. does some stretching for lumbar spine at home. I added sciatic nerve glide to HEP (review with her) Subjective Subjective: Pt. is here today for her initial evaluation with diagnosis of back pain. Pt. has a history of B hip replacements (R hip on November 2024). Lumbar fusion L1-L5 on Aug 2023. Pt. is still having some issues with the R side of her spine with prolonged sitting, standing, basically anything for a long period of time. Pt. did recently go to vacation and was painful on the ride down. Pt. does have some pain in the R leg at times, to her knee. This is mostly with prolonged sitting. Tingling in her legs with prolonged standing. Pt. is hopeful to reduce symptoms in order to get back to all household and recreational activities. Pt. does have a spinal stimulator as well. Pt. is to have injections in ~1 month. Pt. reports mornings are tough. Pain R side of lumbar spine: Pain Intensity (Out of 10): 0 Pain Intensity Range: 0 and 7 Objective Objective: POSTURE: Pt. has decent posture in stance. No major lateral shift noted. Normal pelvis positioning PALPATION: Slight pain with spring testing throughout lumbar spine, no radicular symptoms noted. NEURO: Pt. has normal DTR and normal sensation ROM: LUMBAR SPINE; flexion min loss tightness noted, ext min loss tightness, SB min loss bilat increase NW to L side, rotation min loss rotation bilat mild increase NW. Pt. slight nerve irritation with R sciatic nerve glide. Pt. has great B hip ROM. MMT: RLE: knee: ext 43.5#, flexion 22.1# increase in glute symptoms, abd 13.9# LLE: knee: ext 44#, flexion 28.1#, and 18.9#, Core strength: poor. GAIT: Pt. has fairly normal gait pattern, no AD. Normal arm swing noted. Balance/Special Test Scores Oswestry Low Back Score: 20 Goals Goal 1:: LTG: pt. to be I with HEP. Goal Time Frame: 4-6 Weeks Goal 2:: STG: Pt. to sleep throughout the night without issues. Goal Time Frame: 2-4 Weeks Goal 3:: LTG: Pt. to have increased core and B hip strength by 10# throughout. Goal Time Frame: 4-6 Weeks Goal 4:: LTG: pt. to reports no radicular symptoms on her RLE. Goal Time Frame: 4-6 Weeks Goal 5:: LTG: Pt. to complete all ADLs without increase in back or leg pain. Goal Time Frame: 4-6 Weeks Rehabilitation Potential Physical Therapy Diagnosis: Pt. has signs and symptoms consistent with back pain. Pt. has a history of B hip replacement and L1-L5 fusion. Pt. now having some R sided symptoms that occasionally radiate into her R leg. Pt. has some marked hip and core weakness and would benefit from PT to address the above limitations. Rehabilitation Potential: Excellent Anticipated Interventions Patient/Client Instruction: Educate patient on: Condition, Plan of Care, Risk Factors and Benefits of Fitness Program For the Purpose of:: To improve decision making, To facilitate caregiver knowledge, To improve self management, To prevent re-injury, To improve ability to perform tasks related to life management and To improve tolerance to ADL's Therapeutic Exercise to Include: Strength training, Power training, Postural training, Flexibilty training, In an aquatic setting, Active ROM and Dynamic Lumbar Stabilization For the Purpose of:: To decrease pain, To increase ROM, To improve nutrient delivery to tissue, To increase oxygenation perfusion, To improve muscle performance and motor function, To improve ability to perform ADL's and To increase tolerance to activity/condition/position Text: Thank you for the opportunity to evaluate your patient. For Medicare and Medicare HMO plans, please review the plan of care and approve it. It will need to be FAXED BACK to us at [phone] for Medicare purposes. For Medicare only, by signing this I certify the plan of care. Please let me know if there are questions or concerns regarding this plan of care. Physician Signature: Date:
--- NOTE | 2025-03-05 13:23 | HP.PTDCSUM ---
Discharge Summary D/C summary: It has been my pleasure to treat BRUNO PATTERSON referred by Dr. Mercy Jin MD, with the diagnosis of Back pain for a total of 18 visit(s). Discharge Date: 03/05/25 Please see the following information for a summary of their discharge status. Subjective Subjective: Pt. reports doing much better. Pt. have decreased pain after having a nerve block. Pt. reports having 2/10 pain current. Pt. is typically worse in the AMs. Pt. pleased with progress. Pain R side of lumbar spine: Pain Intensity (Out of 10): 2 Overall Improvement % Improvement: 80 Objective Objective/Function: GAIT: pt. has normal gait pattern. No major issues noted. ROM: Full ROM without issues. MMT: RLE: knee: ext 45.3#, flexion 23.8#, hip: flexion 33.5# LLE: knee: ext 43.8#, flexion 24.9#; hip: flexion 35.6# PT. is overall doing much better. Pt. is to complete all of her exercises on her own at this point in time. Pt. consents. She has met all goals Goals Goal 1:: LTG: pt. to be I with HEP. Goal Progress: Goal Met Goal 2:: STG: Pt. to sleep throughout the night without issues. Goal Progress: Goal Met Goal 3:: LTG: Pt. to have increased core and B hip strength by 10# throughout. Goal 4:: LTG: pt. to reports no radicular symptoms on her RLE. Goal Progress: Goal Met Goal 5:: LTG: Pt. to complete all ADLs without increase in back or leg pain. Goal Progress: Goal Met Plan Plan: Pt. to be DC from PT to HEP D/C Information d/c sentence: If there are questions or concerns regarding this patient's physical therapy, please feel free to call me at [phone]. Thank you for the referral of this patient. Sincerely, Jacinto Esteves Sipos, DPT Balance/Gait/Functional tests Balance/Special Test Scores Oswestry Low Back Score: 12 Improvement % Improvement: 80
== END 2025-03-05 19:00 | disposition home or self-care (01) ==
LOC: PT 12:00
PROVIDERS: PCP Internal Medicine; Referring Provider Anesthesiology Pain Medicine; Visit Provider Anesthesiology Pain Medicine
DX: M46.1 Sacroiliitis, not elsewhere classified (principal)
CPT/HCPCS: 97113; 97161; 97530

== ENCOUNTER 2025-07-07 06:08 | Day surgery (SDC) | payer MEDICARE, MEDICAID, SELFPAY ==
--- NOTE | 2025-07-06 10:09 | PAT.ANESEVAL ---
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 When Was Last Pacemaker Check QUESTION #4 FULL TEXT: You/Your Family Experience fever (hyperthermia) with Anesthesia Last Oral Intake Last Oral intake: Last Oral Intake NPO since Meds taken in AM with sips of water? Meds patient instructed to take am of surgery PONV PONV - vice president talent management: PONV - vice president talent management Female Yes 07/06/25 09:43 HX of Motion Sickness No 07/06/25 09:43 HX of N/V After Surgery No 07/06/25 09:43 Non-Smoker Yes 07/06/25 09:43 Duration of Surgery greater No 07/06/25 09:43 than 60 minutes Number of Risk Factors 2 07/06/25 09:43 PONV Score Moderate Risk 07/06/25 09:43 Height & Weight Height & Weight: Anesthesia: Height & Weight Height 5 ft 5 in 05/04/25 11:09 Respiratory Assessment Respiratory Assessment - vice president talent management: Respiratory Tract Infection Hx - vice president talent management Hx Respiratory Tract Infection No 07/06/25 09:43 STOP Sleep Apnea STOP Sleep Apnea - vice president talent management: STOP Sleep Apnea - vice president talent management Hx Hypertension Yes 07/06/25 09:43 Hx Sleep Apnea No 07/06/25 09:43 CPAP BIPAP Do you snore loudly (louder No 07/06/25 09:43 than talking or can be heard Do you often feel tired/ No 07/06/25 09:43 fatigued/ sleepy during daytime? Has anyone observed you stop No 07/06/25 09:43 breathing during sleep? STOP Results Negative 07/06/25 09:43 QUESTION #5 FULL TEXT : Do you snore loudly (louder than talking or can be heard through closed doors)? 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 Specify any problems Hx of Preganancy in last 3 No 07/06/25 09:43 Months Nurse Filling Out Transfusion JZOLLINGE 07/06/25 09:43 & Questions: Date: 07/06/25 07/06/25 09:43 Time: 09:46 07/06/25 09:43 Patient unable to answer at this time (ie. confused, unrespo /Reproduction History /Reproductive History - vice president talent management: /Reproductive Hx- vice president talent management Hx Now No 07/06/25 09:43 Gestational Age (in weeks): EDC: Hx Hx Para Hx Section SAB No 07/06/25 09:43 Does the father of the baby or his family experience fever w Father of the baby Malignant Hypertension history comment [facility] Medical History (Updated 07/06/25 @ 09:43 by Faith Steinberg) Thyroid disease History of echocardiogram Vertigo Acute maxillary sinusitis, unspecified Loss of hearing Wears glasses Depression Anxiety Anemia Easy bruising Migraine headache Injury of head and neck Menieres disease Dietary restriction History of ulceration Gastric reflux Former smoker Leg cramps History of pain when walking History of edema Pneumonia Pain Hypokalemia Vitamin deficiency Vision problem Ulcer Osteoarthritis Neuropathy IBS (irritable bowel syndrome) Hearing problem Back problem Arthritis Seasonal allergies Home Medications ?Medication ?Instructions ?Recorded ?Last Taken ?Type ondansetron HCl 4 mg tablet 4 mg PO Q8H PRN NAUSEA 08/17/21 Unknown History cetirizine 10 mg tablet (Zyrtec) 10 mg PO DAILY allergy symptoms 03/08/23 09/02/23 History multivitamin (Daily Multi-Vitamin 1 tab PO DAILY PER 08/20/23 09/02/23 History tablet) meclizine 25 mg tablet 12.5 mg PO TID PRN dizziness 12/08/23 Unknown History potassium chloride 20 mEq 20 meq PO TIDCM 30 days #90 tabs 12/18/23 Unknown Rx tablet,extended release(part/cryst) acetaminophen 500 mg tablet 1,000 mg PO Q8 PRN fever or pain 08/20/24 Unknown History topiramate 100 mg tablet 100 mg PO BID #60 tabs 10/29/24 Unknown Rx rosuvastatin 10 mg tablet 10 mg PO DAILY PER DR REAGAN #90 tabs 03/12/25 Unknown Rx levothyroxine 88 mcg tablet 88 mcg PO DAILY@0600 #90 tabs 04/20/25 Unknown Rx triamterene 37.5 1 cap PO DAILY #90 caps 04/20/25 Unknown Rx mg-hydrochlorothiazide 25 mg capsule lamotrigine 100 mg tablet 100 mg PO BID PER 05/04/25 Unknown History amiloride 5 mg tablet 5 mg PO DAILY MENERIES #90 tabs 05/11/25 Unknown Rx ipratropium bromide 21 mcg (0.03 2 spray intranasal BID-TID PRN 05/12/25 Unknown History %) nasal spray allergy symptoms venlafaxine 75 mg capsule,extended 150 mg (2 x 75 mg) PO DAILY #90 05/12/25 Unknown Rx release 24 hr caps omeprazole 40 mg capsule,delayed 40 mg PO DAILY PER #30 caps 05/25/25 Unknown Rx release gabapentin 600 mg tablet 600 mg PO BID #60 TABLETS 06/10/25 Unknown Rx celecoxib 200 mg capsule (Celebrex) 200 mg PO QDAY #30 caps 06/22/25 Unknown Rx biotin 10,000 mcg capsule mcg PO 07/06/25 Unknown History Allergy/AdvReac Type Severity Reaction Status Date / Time shellfish derived Allergy Severe vomitting Verified 07/06/25 09:32 Penicillins Allergy Hives Verified 07/06/25 09:32 duloxetine (From Cymbalta) AdvReac Intermediate Other Verified 07/06/25 09:32 gluten AdvReac Intermediate stomach Verified 07/06/25 09:32 discomfort Family History Father Alcohol abuse Colon cancer, Onset Age: 69 Diabetes Respiratory disease Melanoma Dementia Sister Alcohol abuse Arthritis Asthma Son Anxiety Mother Arthritis Asthma Heart disease Hypertension Aunt Autoimmune disease lupus Brother Hypertension Heart disease Other Bowel disease Depression High cholesterol Mental disorder Psychiatric care Severe allergic reaction Thyroid disorder Surgical History (Updated 07/06/25 @ 09:43 by Faith Steinberg) History of insertion of nerve stimulator Hx of colonoscopy Fusion of lumbar spine History of total right hip arthroplasty S/P insertion of spinal cord stimulator H/O total hip arthroplasty Social History adopted: No household members: none number of children: 1 current occupational status: disabled current occupation: Disabled current occupational exposures/hazards: No pets and animals: Yes history of recent travel: No sexually active: No Smoking Status: Current every day smoker tobacco type: e-cigarettes Electronic Cigarette Use: with nicotine alcohol intake: former year quit: 2015? substance use type: does not use caffeine: Yes eating out: 1-3 times/week during the past year weight has: remained stable frequency: 3-4 times per week duration: 15-30 minutes/day octavia/christian: [employer] seatbelt use: always do you feel safe at home: Yes additional social history: Audit: Pertinent Findings Pertinent Findings EKG Perinent findings: EKG 09/2023: SR with PACs, with aberrant conduction, (L) axis deviation Echo (EF%) pertinent findings: 09/2024: EF 65%, stage 1 diastolic dysfxn. Mild concentric LVH. Mild inferior septal hypokinesis. Mildly dilated aortic root. Recommendation Anesthesia Recommendation Anesthesia recommendation: OPTIMIZED for anesthesia
[2025-07-07] VITALS (9 sets, daily range): BP systolic 87–113; BP diastolic 65–83; PULSE 63–79; RESP 16; TEMP 36.3–36.6; O2SAT 93–98; BMI 36.4
--- OUTSIDE RECORDS SUMMARY | 2025-07-07 06:13 | XMS RPT_ITS | CCD ---
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 Melony Tejada Attending Provider Dr. Nathalia Ortega Referring Provider Dr. Bayron Negrete Attending Provider [phone] Dr. Esequiel Mccullough Attending Provider Dr. Mc Jesus Attending Provider LOGAN HADDAD Primary Care Provider UnavailLogan Espino MD Primary Care Provider Logan Haddad MD Primary Care Provider Dr. Logan Haddad Attending Unavail able Peyton, Dr. Logan Biswas Primary Care Unavail Dr. Feli Zhao Referring Un available Raj, Dr. Feli Leyva Attending Un available Dr. Logan Haddad Primary Care Unavail Dr. Feli Zhao Attending Un available Peyton, Dr. Logan Biswas Primary Care Unavail able Dr. Feli Anthony Referring Un available ADELE, DILIA Y Referring Unavailable LOGAN HADDAD Primary Care Unavailable UMANG ROY Referring Unavailable LOGAN HADDAD Primary Care Unavailable GARRET WOO Attending Unavailable Dr. Levon Reyes Attending Provider Dr. Esequiel Mccullough Attending Provider [place] Doctor, Out of Primary Care Provider [facility] Doctor, Out of [facility] Attending Provider [phone] [facility] Doctor, Out of Primary Care Provider [facility] Doctor, Out of Referring Provider [facility] Nolan Attending Provider Dr. Levon Reyes Attending Provider [phone] Dr. Esequiel Mccullough Attending Provider [phone] Dr. Bayron Negrete Attending Provider [phone] Dr. Ed Lipscomb Attending Provider [phone] PEYTON, DRISCOLL Primary Care Provider Unavailabl e Dr. Ed Lipscomb Referring Provider [phone] [facility] Doctor, Out of Primary Care Provider [facility] Doctor, Out of Referring [facility] Lloyd Attending Provider [phone] Dr. Ed Lipscomb Admit Provider Dr. Ed Lipscomb Other Provider LOGAN HADDAD Primary Care Provider Dr. Patrick Alfred Attending Provider Dr. Patrick Alfred Other Provider [phone] Dr. Osmar Raya Other Provider Unavailable Dr. Osmar Raya Attending Provider Unavailable Dr. Jerzy Elliott Other Provider Dr. Logan Cesar Attending Provider [phone] Logan Cesar Other Provider Dr. Vipul Noel Attending Provider [phone] Dr. Nadege Jiménez Attending Provider Dr. Eugene Orr Attending Provider Dr. Eugene Orr Other Provider [facility] Doctor, Out of Primary Care Provider [facility] Doctor, Out of Referring Provider UnavailDr. Levon Bob Attending Provider [phone] Dr. Esequiel Mccullough Attending Provider [phone] Dr. Bayron Negrete Attending Provider [phone] Dr. Ed Lipscomb Attending Provider [phone] PEYTONLOGAN PAVON Primary Care Provider Unavailabl e Dr. Ed Lipscomb Referring Provider [phone] ALEXANDRA Keller Attending Provider [phone] Ed Lipscomb Admit Provider Dr. Ed Lipscomb Other Provider PEYTONLOGAN PAVON Primary Care Provider Dr. Patrick Alfred Attending Provider Dr. Patrick Alfred Other Provider [phone] Dr. Osmar Raya Other Provider Unavailable Dr. Osmar Raya Attending Provider Unavailable Lexi, Dr. Jerzy Alanis Other Provider Dr. Logan Cesar Attending Provider Dr. Logan Cesar Other Provider Dr. Vipul Noel Attending Provider Dr. Eugene Orr Attending Provider Dr. Eugene Orr Other Provider [facility] Doctor, Out of Referring Provider Unavailab Dr. Ed Ellis Attending Provider [phone] PEYTONLOGAN PAVON Primary Care Provider Unavailabl e Dr. Esequiel Mccullough Attending Provider [phone] Ed Lipscomb Referring Provider [phone] ALEXANDRA Keller Attending Provider [phone] Ed Lipscomb Admit Provider Dr. Ed Lipscomb Other Provider PEYTONLOGAN Primary Care Provider Dr. Patrick Alfred Attending Provider Dr. Patrick Alfred Other Provider [phone] Dr. Osmar Raya Other Provider Unavailable Dr. Osmar Raya Attending Provider Unavailable Dr. Jerzy Elliott Other Provider Dr. Logan Cesar Attending Provider Dr. Logan Cesar Other Provider Dr. Vipul Noel Attending Provider Dr. Eugene Orr Attending Provider Dr. Eugene Orr Other Provider Care Physician, No Primary Primary Care Provider Unavailable Care Physician, No Primary Referring Provider Un available TRU BERRY Consulting Unavailable LOGAN HADDAD Primary Care Unavailable SIMRAN DILL Attending Unavailable SIMRAN DILL Admitting Unavailable LOGAN HADDAD Primary Care Unavailable Dr. Ed Lipscomb Attending Provider ALEXANDRA Keller Attending Provider [phone] Ed Lipscomb Admit Provider Dr. Ed Lipscomb Referring Provider [phone] Ed Lipscomb Other Provider LOGAN HADDAD Primary Care Provider Dr. Patrick Alfred Attending Provider Dr. Patrick Alfred Other Provider Dr. Osmar Raya Other Provider Unavailable Dr. Osmar Raya Attending Provider Unavailable Dr. Jerzy Elliott Other Provider Dr. Logan Cesar Attending Provider Dr. Logan Cesar Other Provider Dr. Vipul Noel Attending Provider Dr. Eugene Orr Attending Provider Dr. Eugene Orr Other Provider Care Physician, No Primary Primary Care Provider Unavailable Care Physician, No Primary Referring Provider Un available Dr. Esequiel Mccullough Attending Provider [phone] PHYSICIAN, NONE Primary Care Unavailable DR SIMRAN DILL MD Attending Unavailable PHYSICIAN, NONE Primary Care Unavailable PHYSICIAN, NONE Attending Unavailable PHYSICIAN, NONE Primary Care Unavailable Logan Haddad MD Primary Care Provider [phone] Cheyenne Velasquez Attending Provider [phone] Cheyenne Velasquez Referring Provider [phone] Aruna BOCANEGRA, Dr. Saba Primary Care Provider [phone] Aruna BOCANEGRA, Dr. Saba Referring Provider Guillermo Kunz Attending Provider Guillermo Kunz Referring Provider [phone] Bert BOCANEGRA, Dr. Martin Attending Provider Ruel BOCANEGRA, Dr. Ward Attending Provider Jamel BOCANEGRA, Dr. Iraheta Attending Provider SIMRAN DILL Attending Provider [phone] SIMRAN DILL Referring Provider [phone] Aruna BOCANEGRA, Dr. Saba Attending Provider Natalie BOCANEGRA, Dr. Martinez Attending Provider Natalie BOCANEGRA, Dr. Martinez Referring Provider [phone] Aruna BOCANEGRA, Dr. Saba Primary Care Provider [phone] Aruna BOCANEGRA, Dr. Saba Attending Provider Dr. Wandy Valdovinos MD Referring Provider Dr. Mercy Jin MD Attending Provider Dr. Mercy Jin MD Referring Provider Dr. Wandy Valdovinos MD Primary Care Physician [phone] Dr. Mercy Jin MD Attending Physician Dr. Wandy Valdovinos MD Referring Provider Marcus DIVING FISHER-CKeyana Attending Physician LOGAN HADDAD Primary Care Unavailable WABEKE, PERCY Referring Unavailable KEYANABEKE, PERCY Attending Unavailable LOGAN HADDAD Primary Care Unavailable WABEKE, PERCY Referring Unavailable WABEKE, PERCY Attending Unavailable LOGAN HADDAD Primary Care Unavailable WABEKE, PERCY Referring Unavailable KEYANABEKE, PERCY Attending Unavailable LOGAN HADDAD Primary Care Unavailable WABEKE, PERCY Referring Unavailable WABEKE, PERCY Attending Unavailable LOGAN HADDAD Primary Care Unavailable WABEKE, PERCY Referring Unavailable WABEKE, PERCY Attending Unavailable [facility] Primary Care Unavailable WABEKE, PERCY Referring Unavailable WABEKE, PERCY Attending Unavailable [facility] Primary Care Unavailable WABEKE, PERCY Referring Unavailable WABEKE, PERCY Attending Unavailable [facility] Primary Care Unavailable WABEKE, PERCY Referring Unavailable WABEKE, PERCY Attending Unavailable [facility] Primary Care Unavailable WABEKE, PERCY Referring Unavailable WABEKE, PERCY Attending Unavailable [facility] Primary Care Unavailable WABEKE, PERCY Referring Unavailable WABEKE, PERCY Attending Unavailable [facility] Primary Care Unavailable WABEKE, PERCY Referring Unavailable WABEKE, PERCY Attending Unavailable [facility] Primary Care Unavailable WABEKE, PERCY Referring Unavailable WABEKE, PERCY Attending Unavailable [facility] Care Unavailable WABEKE, PERCY Referring Unavailable WABEKE, PERCY Attending Unavailable [facility] Care Unavailable WABEKE, PERCY Referring Unavailable WABEKE, PERCY Attending Unavailable [facility] Care Unavailable WABEKE, PERCY Referring Unavailable WABEKE, PERCY Attending Unavailable [facility] Care Unavailable WABEKE, PERCY Referring Unavailable WABEKE, PERCY Attending Unavailable [facility] Care Unavailable WABEKE, EPRCY Referring Unavailable WABEKE, PERCY Attending Unavailable [facility] Care Unavailable WABEKE, PERCY Referring Unavailable WABEKE, PERCY Attending Unavailable [facility] Care Unavailable WABEKE, PERCY Referring Unavailable WABEKE, PERCY Attending Unavailable [facility] Care Unavailable WABEKE, PERCY Referring Unavailable WABEKE, PERCY Attending Unavailable [facility] Primary Care Unavailable SELF Referring Unavailable DILIA ANGULO Attending Unavailable Palmyra, Wandy Primary Care Unavailable Palmyra, Wandy Referring Unavailable Guillermo Kunz Attending Unavailable Palmyra, Wandy Primary Care Unavailable Palmyra, Wandy Referring Unavailable Ed Lipscomb Attending Unavailable Aruna, Wandy Primary Care Unavailable Esequiel Mccullough Attending Unavailable Aruna, Wandy Primary Care Unavailable Mario Noel Attending Unavailable Aruna, Wandy Attending Unavailable Palmyra, Wandy Primary Care Unavailable Aruna, Wandy Referring Unavailable Michelle Estrada Attending Unavailable Palmyra, Wandy Primary Care Unavailable Aruna, Wandy Referring Unavailable Keyana Velazquez Attending Unavailable Keller, Cheyenne Attending Unavailable Aruna, Wandy Primary Care Unavailable Palmyra, Wandy Referring Unavailable Chiquita Arthur Attending Unavailable Keller, Cheyenne Referring Unavailable Keller, Cheyenne Attending Unavailable Palmyra, Wandy Primary Care Unavailable Palmyra, Wandy Primary Care Unavailable Keller, Cheyenne Referring Unavailable Keller, Cheyenne Attending Unavailable Palmyra, Wandy Primary Care Unavailable RAGINITOBIA Referring Unavailable RAGINITOBIA Attending Unavailable Aruna, Wandy Primary Care Unavailable Aruna, Wandy Referring Unavailable Aruna, Wandy Attending Unavailable Palmyra, Wandy Primary Care Unavailable Rogeranthony, Michelle Referring Unavailable Marcanthony, Michelle Attending Unavailable Aruna, Wandy Primary Care Unavailable Marcanthony, Michelle Referring Unavailable Marcanthony, Michelle Attending Unavailable Palmyra, Wandy Primary Care Unavailable Basali Ayman Referring Unavailable Basali Ayman Attending Unavailable Aruna, Wandy Primary Care Unavailable Brennan Limon Attending Unavailable Aruna, Wandy Primary Care Unavailable Guillermo Kunz Referring Unavailable Guillermo Kunz Attending Unavailable Allergies Allergy Classification Reported Allergen(s) Allergy Type Date of Onset Reaction(s) Facility DULoxetine (2 sources) DULoxetine; Translations: [Cymbalta] Drug Allergy [facility] Work Phone: Penicillins (antibiotic) (2 sources) Penicillins; Translations: [Penicillins] Drug Allergy [facility] Work Phone: (6 sources) DULoxetine; Translations: [Cymbalta] Drug Allergy [facility] Work Phone: (12 sources) Penicillins; Translations: [Penicillins] Allergy to drug (finding) 9 [facility] Other [facility] (20 sources) Citric Acid; Translations: [CITRIC ACID] Drug Allergy 2 Other: See Comments [facility] Comment on above: blisters in mouth (20 sources) DULoxetine; Translations: [DULOXETINE] Drug Allergy 9 Other: See Comments [facility] Comment on above: weight gain (20 sources) Shellfish; Translations: [SHELLFISH DERIVED] Allergy to substance 8 Vomiting [facility] (20 sources) Wheat gluten extract Drug Allergy 2 stomach discomfort [facility] (18 sources) Lactose; Translations: [LACTOSE] Drug Allergy 8 GI Upset [facility] (18 sources) Penicillins Propensity to adverse reactions 9 [facility] (20 sources) Penicillins [facility] (4 sources) Penicillins Propensity to adverse reactions 9 [facility] (1 source) Citric Acid Drug Allergy 5 [facility] (1 source) DULoxetine Drug Allergy 5 [facility] (1 source) Gluten Drug allergy (disorder) 5 [facility] (1 source) Penicillins Drug allergy (disorder) 5 [facility] Medications Current Medications Medication Drug Class(es) Dates Sig (Normalized) Sig (Original) aMILoride hydrochloride 5 mg oral tablet (20 sources) Potassium-sparing Diuretic Start: 05-11-2025 take 1 tablet by mouth once daily Start: 04-29-2018 End: 05-11-2025 take 1 tablet by mouth once daily Amiloride 5 mg tablet Discontinued 5 mg PO DAILY 11 09March 12, 2025 9:47am May 11, 2025 4:43pm [facility] Comment on above: 5 mg once daily. Take 5 mg by mouth o nce daily. baclofen 10 mg oral tablet (1 source) gamma-Aminobutyric Acid-ergic Agonist Start: 09-24-2023 celecoxib 200 mg oral capsule (20 sources) Nonsteroidal Anti-inflammatory Drug Start: 09-26-2024 End: 03-12-2025 take 1 capsule by mouth once daily Celecoxib (Celebrex) 200 mg capsule Active 200 mg PO daily 11 09March 12, 2025 9:47am Complies with drug therapy Start: 12-27-2016 End: 12-08-2023 take 1 capsule by mouth once daily Celecoxib 200 MG capsule Discontinued 200 mg PO DAILY December 27, 2016 12:00am December 08, 2023 2:49am PAIN CeleBREX 200 MG Oral Capsule Quantity: 0 Refills: 0 Ordered: 24-Feb-2020 DO Active Comment on above: Take 200 mg by mouth once daily. cetirizine hydrochloride 10 mg oral tablet (20 sources) Histamine-1 Receptor Antagonist Start: take 1 tablet by mouth once daily Cetirizine (Zyrtec) 10 mg tablet Active 10 mg PO DAILY March 08, 2023 12:00am allergy symptoms Complies with drug therapy take 1 capsule by mouth once lee ann ly Cetirizine 10 mg cap Take 1 capsule by mouth once daily. Active Comment on above: Take 1 capsule by [facility] once daily. dexamethasone phosphate 1 mg/ml ophthalmic solution (20 sources) Corticosteroid Start: 02-08-20 take 3 drop(s) into the eye(s) three times daily as needed dexAMETHasone 0.1 % ophthalmic solution 3 drops 3 times a day to affected ear as needed vertigo 10 mL 4 02/07/2022 Active Start: 12-10-2020 End: 02-07-2022 take 3 drop(s) into the eye(s) three times daily as needed dexAMETHasone 0.1% 0.1 % ophthalmic solution 3 drops 3 times a day to affected ear as needed vertigo 10 mL 4 12/10/2020 02/07/2022 Discontinued Start: 12-27-2016 End: 09-24-2023 Dexamethasone Sodium Phospha te 5 ML drops Discontinued 1 NMA OP NEEDED as needed for MENERIES December 27, 2016 12:00am September 24, 2023 8:27pm Start: 01-06-2014 Dexamethasone Sodium Phosphate 0.1 % Ophthalmic Solution Quantity: 5 Refills: 0 Ordered: 07-Jan-2014 DO Start : 06-Jan-2014 Active Start: 01-06-2014 Dexamethasone Sodium Phosphate 0.1 % Ophthalmic Solution Quantity: 5 Refills: 0 Start : 06-Jan-2014 Active Comment on above: 3 drops 3 times a da y to affected ear as needed vertigo fluticasone propionate 0.05 mg/actuat metered dose nasal spray (20 sources) Corticosteroid Start: 05-04-2025 End: 05-12-2025 Fluticasone Propionate 50 mcg/actuation spray,suspension Discontinued 2 NMA INTRANASAL daily as needed for allergy symptoms May 04, 2025 12:00am May 12, 2025 12:22pm administer into each nostril Start: 12-18-2023 End: 08-20-2024 Fluticasone Propionate 50 mc g/actuation [place],Suspension Discontinued 1 NMA NASAL TWICE DAILY NEEDED as needed for SINUS CONGESTION 0 0 December 18, 2023 12:00am August 20, 2024 11:13am Start: 12-18-2023 Start: 10-21-2021 Fluticasone Pr opionate Active 2 SPRAY NASAL NEEDED October 21, 2021 9:23am Start: 12-27-2016 End: 08-20-2024 Fluticasone Propionate 50 mc g/actuation spray,suspension Discontinued 1 NMA NASAL DAILY as needed for ALLERGIES October 21, 2021 10:23am August 20, 2024 11:13am Start: 12-27-2016 End: 10-21-2021 Start: 12-27-2016 End: 10-21-2021 Fluticasone Propionate Activ e 2 SPRAY NASAL DAILY October 21, 2021 10:23am fluticasone (SKYLER NASE) 50 mcg/actuation nasal spray Use 1 [place] in each nostril as needed. Active Comment on above: Use 1 [place] in each nostril as needed. gabapentin 600 mg oral tablet (20 sources) Anti-epileptic Agent Start: 05-11-2025 take 1 tablet by mouth twice daily Start: 12-08-2023 End: 05-11-2025 take 1 tablet by mouth twice daily Gabapentin 600 mg tablet Discontinued 600 mg PO TWICE A DAY 60 0 April 09, 2025 3:23pm May 11, 2025 4:43pm fill for 04/12 Start: 08-17-2021 End: 12-08-2023 take 1 tablet by mouth four times daily Gabapentin 600 mg Tablet Discontinued 600 mg PO 4 TIMES DAILY 120 30 0 September 24, 2023 1:00am December 08, 2023 3:13am Start: 06-17-2018 End: 09-24-2023 take 1 tablet by mouth twice daily Gabapentin 600 mg tablet Discontinued 600 mg PO TWICE A DAY August 17, 2021 1:00am September 24, 2023 8:27pm PAIN Start: 06-17-2018 Gabapentin 600 MG Oral Tablet Quantity: 0 Refills: 0 Ordered: 17-Jun-2018 DO Start : 17-Jun-2018 Active Start: 12-27-2016 End: 10-21-2021 take 2 capsules by mouth twice daily Gabapentin (Neurontin) 300 MG capsule Discontinued 600 mg PO TWICE A DAY December 27, 2016 12:00am October 21, 2021 10:22am Start: 09-23-2015 End: 09-14-2022 take 2 capsules by mouth three times daily gabapentin (NEURONTIN) 300 mg capsule Take 2 capsules by mouth three times daily. 180 capsule 4 09/23/2015 09/14/2022 Discontinued Comment on above: Take 2 capsules by [facility] three times daily. Take 600 mg by mouth two times a day. hydroCHLOROthiazide 25 mg / triamterene 37.5 mg oral capsule (20 sources) Potassium-sparing Diuretic, Thiazide Diuretic Start: 12-18-2023 End: 04-20-2025 Triamterene-Hydrochl orothiazid 37.5-25 mg capsule Active 1 NMA PO DAILY 90 0 April 20, 2025 3:38pm Complies with drug therapy Start: 12-18-2023 Start: 02-20-2023 Start: 02-20-2023 take 1 tablet by misael once daily Triamterene-Hydrochlorothiazid Active 1 TABLET PO DAILY February 20, 2023 12:00am Start: 08-09-2021 End: 08-20-2024 Triamterene-Hydrochlorothiaz id 37.5-25 mg tablet Discontinued 1 {tbl} PO DAILY February 20, 2023 12:00am August 20, 2024 11:18am PER DR Start: 12-27-2016 take 1 capsule by [facility] once daily Triamterene-Hydrochlorothiazid Active 1 CAP PO DAILY December 27, 2016 12:00am Start: 12-02-2013 Triamterene-HC TZ 37.5-25 MG Oral Tablet Quantity: 90 Refills: 0 Ordered: 24-Apr-2014 DO Start : 02-Dec-2013 Active Comment on above: Take 1 tablet by misael once daily. ipratropium bromide 0.021 mg/actuat metered dose nasal spray (1 source) Anticholinergic Start: 05-12-2025 Start: 05-12-2025 lamoTRIgine 100 mg oral tablet (20 sources) Mood Stabilizer, Anti-epileptic Agent Start: 02-27-2025 End: 05-28-2025 take 1 tablet by mouth twice daily Lamotrigine 100 mg tablet Active 100 mg PO TWICE A DAY May 04, 2025 11:05am PER Complies with drug therapy Start: 03-02-2023 End: 05-04-2025 take 1 tablet by mouth once daily Lamotrigine 100 mg Tablet Discontinued 100 mg PO DAILY 0 0 December 18, 2023 12:00am August 20, 2024 11:14am Start: 12-13-2022 End: 01-25-2023 take 1 tablet by mouth once daily lamoTRIgine (LAMICTAL) 100 mg tablet Take 1 tablet by mouth once daily. 30 tablet 0 01/25/2023 Active Start: 09-14-2022 take 1 tablet by misael th once daily lamoTRIgine (LAMICTAL) 100 mg tablet Take 1 tablet by mouth once daily. 30 tablet 2 09/14/2022 Active Start: 06-11-2022 End: 09-14-2022 take 1 tablet by mouth once daily lamoTRIgine (LAMICTAL) 25 mg tablet Take 1 tablet by mouth once daily. 30 tablet 3 06/11/2022 09/14/2022 Discontinued Start: 04-06-2022 End: 06-08-2022 take 1 tablet by mouth once daily lamoTRIgine (LAMICTAL) 25 mg tablet Take 1 tablet by mouth once daily. 30 tablet 0 05/08/2022 06/08/2022 Discontinued Comment on above: Take 1 tablet by misael th once daily. take 1 tablet by misael th once daily take 1 tablet by misael th daily levothyroxine sodium 0.088 mg oral tablet (20 sources) l-Thyroxine Start: End: take 1 tablet by mouth once daily Levothyroxine 88 mcg tablet Active 88 ug PO DAILY@0600 90 0 April 20, 2025 3:38pm Complies with drug therapy Start: 06-11-2013 End: 11-19-2023 take 1 capsule by mouth once daily Levothyroxine 75 mcg cap Take 75 mcg by mouth once daily. 0 06/11/2013 11/19/2023 Discontinued (Duplicate Entry) Start: 06-09-2013 End: 03-08-2023 take 1 tablet by mouth once daily Levothyroxine 75 MCG tablet Discontinued 75 ug PO DAILY December 27, 2016 12:00am March 08, 2023 11:12am Start: 06-09-2013 Levothyroxine Sodium 75 MCG Oral Tablet Quantity: 90 Refills: 0 Ordered: 09-Jun-2013 DO Start : 09-Jun-2013 Active take 1 capsule by mo uth once daily before breakfast levothyroxine 88 mcg cap Take 88 mcg by mouth daily before breakfast. Active Comment on above: Take 75 mcg by mouth once daily. Take 88 mcg by mouth daily before breakfast. Multivitamin (Daily Multi-Vitamin) tablet (11 sources) Start: 08-20-2023 Multivitamin (Daily Multi-Vitamin) tablet Active 1 {tbl} PO DAILY August 20, 2023 1:00am PER DR Complies with drug therapy Start: 08-20-2023 Multivitamin ( Daily Multi-Vitamin) tablet Active 1 {tbl} PO DAILY August 20, 2023 1:00am PER Start: 08-20-2023 Multivitamin ( Daily Multi-Vitamin) tablet Active 1 {tbl} PO DAILY August 20, 2023 1:00am Start: 08-20-2023 take 1 tablet by misael th once daily Multivitamin (Daily Multi-Vitamin) tablet Active 1 TABLET PO DAILY August 20, 2023 1:00am Start: 08-20-2023 take 1 tablet by misael th once daily Multivitamin (Daily Multi-Vitamin) tablet Active 1 TABLET PO DAILY August 20, 2023 12:00am MULTIVITAMIN TAB (20 sources) Start: 06-04-2009 take 1 tablet by mouth once daily MULTIVITAMIN TAB Take 1 tablet by mouth once daily. 0 06/04/2009 Active Start: 06-04-2009 MULTIVITAMIN T AB Take one(1) tablet daily. 0 06/04/2009 Active Comment on above: Take one(1) tablet d aily. Take 1 tablet by misael th once daily. mupirocin 0.02 mg/mg topical ointment (2 sources) RNA Synthetase Inhibitor Antibacterial Start: 4 End: 4 mupirocin (BACTROBAN) 2 % ointment Apply 1/2 inch of ointment with a Q-tip to both nostrils in the morning and afternoon for 5 consecutive days before surgery. Patient should start on November 29, 2023. 15 g 0 11/29/2023 12/03/2023 Active Comment on above: Apply 1/2 inch of oi ntment with a Q-tip to both nostrils in the morning and afternoon for 5 consecutive days before surgery. Patient should start on November 29, 2023. ondansetron 4 mg oral tablet (20 sources) Serotonin-3 Receptor Antagonist Start: take 1 tablet by mouth every eight hours as needed for nausea Ondansetron Hcl 4 mg tablet Active 4 mg PO Q8H as needed for NAUSEA August 17, 2021 1:00am Complies with drug therapy Start: 06-17-2018 Zofran 4 MG TA BS Quantity: 0 Refills: 0 Ordered: 17-Jun-2018 DO Start : 17-Jun-2018 Active Start: 06-17-2018 Zofran 4 MG Or al Tablet Refills: 0 Start : 17-Jun-2018 Active Start: 07-12-2017 take 1 tablet by misael th every eight hours as needed ondansetron orally disintegrating (ZOFRAN ODT) 4 mg disintegrating tablet Take 1 tablet by mouth every 8 hours as needed for Nausea/Vomiting. 40 tablet 07/12/2017 Active Comment on above: Take 1 tablet by misael th every 8 hours as needed for Nausea/Vomiting. pantoprazole 40 mg delayed release oral tablet (7 sources) Proton Pump Inhibitor Start: 05-04-20 25 take 1 tablet by mouth once daily Pantoprazole 40 mg tablet,delayed release (DR/EC) Active 40 mg PO daily 90 May 04, 2025 12:00am Complies with drug therapy Start: 12-18-2023 End: 08-20-2024 Pantoprazole 40 mg Tablet,De layed Release (Dr/Ec) Discontinued 40 mg PO 0600 0 0 December 18, 2023 12:00am August 20, 2024 11:15am polyethylene glycol 3350 [id number] mg / potassium chloride 2970 mg / sodium bicarbonate 6740 mg / sodium chloride 5860 mg / sodium sulfate 30106 mg powder for oral solution (1 source) Osmotic Laxative Start: 11-06-2022 End: 11-06-2022 peg 3350-Electrolytes (GOLYTELY) 236-22.74-6.74 -5.86 gram suspension Indications: Encounter for screening for malignant neoplasm of colon Take 4,000 mL by mouth one time only for 1 dose. Refer to printed prep instructions from your provider. 4000 mL 0 11/06/2022 11/06/2022 Active Comment on above: Take 4,000 mL by misael th one time only for 1 dose. Refer to printed prep instructions from your provider. microencapsulated potassium chloride 20 meq extended release oral tablet (20 sources) Start: 12-06-2023 take 1 tablet by mouth three times daily at mealtime Potassium Chloride 20 mEq Tablet,Er Particles/Crystals Active 20 meq PO 3 TIMES DAILY WITH MEALS 90 30 0 December 18, 2023 12:00am Complies with drug therapy Start: 02-20-2023 End: 08-20-2024 take 1 tablet by mouth three times daily Potassium Chloride 20 mEq tablet extended release Discontinued 20 meq PO THREE TIMES A DAY February 20, 2023 12:00am August 20, 2024 11:15am PER Start: 02-20-2023 Start: 03-27-2020 take 1 tablet by misael th three times daily Klor-Con M20 Active 1 TABLET PO THREE TIMES A DAY March 27, 2020 2:57pm Start: 03-27-2020 take 1 tablet by misael th three times daily Klor-Con M20 Active 1 TABLET PO THREE TIMES A DAY March 26, 2020 11:00pm Start: 03-27-2020 take 1 tablet by misael th three times daily Klor-Con M20 Active 1 TABLET PO THREE TIMES A DAY March 27, 2020 12:00am Start: 10-23-2017 take 1 tablet by misael th twice daily potassium chloride ER (K-DUR, KLOR-CON) 20 mEq tablet Take 1 tablet by mouth twice daily. 60 tablet 0 10/23/2017 Active Comment on above: Take 1 tablet by misael th twice daily. rosuvastatin calcium 10 mg oral tablet (20 sources) HMG-CoA Reductase Inhibitor Start: 3 End: 5 take 1 tablet by mouth once daily Rosuvastatin 10 mg tablet Active 10 mg PO DAILY 90 2 March 12, 2025 9:47am PER DR REAGAN Complies with drug therapy take 2 tablets by mouth once lee ann ly rosuvastatin (CRESTOR) 5 mg tablet Take 10 mg by mouth once daily. Active Comment on above: Take 10 mg by mouth once daily. 24 hr venlafaxine 75 mg extended release oral capsule (20 sources) Serotonin and Norepinephrine Reuptake Inhibitor Start: 05-12-2025 take 1 capsule by mouth once daily Start: 12-27-2021 End: 05-12-2025 take 1 capsule by mouth once daily Venlafaxine 75 mg Capsule,Extended Release 24hr Discontinued 75 mg PO DAILY 0 December 18, 2023 12:00am October 29, 2024 4:14pm take 2 tablets by [facility] once daily venlafaxine (EFFEXOR) 37.5 mg tablet Take 75 mg by mouth once daily. [facility] venlafaxine (EFFEXOR) 37.5 mg tablet Take 37.5 mg by mouth twice daily. 0 Active Comment on above: [facility] Take 75 mg by mouth once daily. (4 sources) Start: 12-18-2023 Start: 12-08-2023 Start: 08-20-2023 Completed/Discontinued Medications Medication Drug Class(es) Dates Sig (Normalized) Sig (Original) acetaminophen 500 mg oral tablet (20 sources) Start: 09-12-2023 End: 08-20-2024 take 2 tablets by mouth every eight hours Acetaminophen 500 mg Tablet Discontinued 1000 mg PO EVERY 8 HOURS 0 December 18, 2023 12:00am August 20, 2024 11:19am Start: 09-12-2023 Start: 11-08-2017 take 2 tablets by [facility] every four hours as needed for pain acetaminophen (TYLENOL) 325 mg tablet Indications: Status post total replacement of left hip Take 2 tablets by mouth every 4 hours as needed for Pain (post op total joint pain). 30 tablet 1 11/08/2017 Active Comment on above: Take 2 tablets by mo [facility] every 4 hours as needed for Pain (post op total joint pain). aMILoride hydrochloride 5 mg / hydroCHLOROthiazide 50 mg oral tablet (8 sources) Potassium-sparin g Diuretic, Thiazide Diuretic Start: 06-17-20 18 aMILoride-hydroCHLO ROthiazide 5-50 MG Oral Tablet Quantity: 0 Refills: 0 Ordered: 17-Jun-2018 DO Start : 17-Jun-2018 Active ascorbic acid 500 mg oral tablet (20 sources) Vitamin C Start: 12-06-19 End: 05-04-20 take 1 tablet by mouth twice daily at mealtime Ascorbic Acid (Vitamin C) 500 mg Tablet Discontinued 500 mg PO TWICE DAILY WITH MEALS 0 0 December 18, 2023 12:00am August 20, 2024 11:12am End: 11-19-2023 take 1 tablet by mouth once daily Ascorbic Acid 1,000 mg tablet Take 1,000 mg by mouth once daily. 0 11/19/2023 Discontinued (Discontinued by Patient) End: 11-19-2023 ascorbic acid (BUFFERED ÁNGEL MIN C ORAL) Take by mouth. 0 11/19/2023 Discontinued (Discontinued by Patient) ascorbic acid (B UFFERED VITAMIN C ORAL) Take by mouth. 0 Active Comment on above: Take 1,000 mg by misael th once daily. Take by mouth. aspirin 81 mg delayed release oral tablet (20 sources) Platelet Aggregation Inhibitor, Nonsteroidal Anti-inflammatory Drug Start: End: take 1 tablet by mouth twice daily at mealtime Aspirin 81 mg Tablet,Delayed Release (Dr/Ec) Discontinued 81 mg PO TWICE DAILY WITH MEALS 0 14 0 December 18, 2023 12:00am August 20, 2024 11:22am Start: 09-12-2023 End: 12-08-2023 take 1 tablet by mouth at breakfast Aspirin 325 mg Tablet Discontinued 325 mg PO WITH BREAKFAST 0 0 September 12, 2023 1:00am December 08, 2023 2:48am Heart Start: 09-12-2023 End: 12-08-2023 BIOFLAVONOID, LEMON, BULK, M ISC (14 sources) End: 11-19-2023 BIOFLAVONOID, LEMON, BULK, M ISC BIOFLAVONOID, LE MON, BULK, MISC bisacodyl 5 mg delayed release oral tablet (20 sources) Stimulant Laxative Start: 09-24-2023 End: 12-08-2023 take 2 tablets by mouth once daily Bisacodyl 5 mg Tablet,Delayed Release (Dr/Ec) Discontinued 10 mg PO DAILY 60 30 0 September 24, 2023 1:00am December 08, 2023 2:48am Start: 09-12-2023 End: 09-24-2023 take 1 tablet by mouth once daily Bisacodyl 5 mg Tablet,Delayed Release (Dr/Ec) Discontinued 5 mg PO DAILY 0 0 September 12, 2023 1:00am September 24, 2023 8:26pm Constipation Start: 09-12-2023 End: 12-08-2023 168 hr buprenorphine 0.005 mg/hr transdermal system (20 sources) Partial Opioid Agonist Start: 12-18-2023 End: 08-20-2024 apply 5 ug transdermal route every week Buprenorphine 5 mcg/hour Patch Weekly Discontinued 1 NMA TD Q7D 0 0 December 18, 2023 12:00am August 20, 2024 11:13am Start: 12-08-2023 End: 08-20-2024 apply 5 ug topically every week Buprenorphine 5 mcg/ho ur patch weekly Discontinued 1 NMA TOPICAL EVERY WEEK December 08, 2023 12:00am August 20, 2024 11:13am pain Comment on above: Apply 1 Patch as dir ected one time a week. 24 hr buPROPion hydrochloride 300 mg extended release oral tablet (20 sources) Aminoketone Start: End: take 1 tablet by mouth once daily Bupropion Hcl 300 MG tablet extended release 24 hr Discontinued 300 mg PO DAILY December 27, 2016 12:00am October 21, 2021 10:24am Start: 05-23-2013 take 1 tablet by misael th every twenty-four hours buPROPion HCl ER (XL) 300 MG Oral Tablet Extended Release 24 Hour Quantity: 30 Refills: 0 Ordered: 19-Jun-2013 DO Start : 23-May-2013 Active 12 hr cetirizine hydrochloride 5 mg / pseudoephedrine hydrochloride 120 mg extended release oral tablet (20 sources) alpha-Adrenergic Agonist, Histamine-1 Receptor Antagonist Start: 12-27-2016 End: 03-08-2023 take 1 tablet by mouth every twelve hours Cetirizine-Pseudoephedrine 1 EACH tablet extended release 12 hr Discontinued 1 NMA PO DAILY December 27, 2016 12:00am March 08, 2023 11:11am Start: 12-27-2016 End: 03-08-2023 Start: 12-27-2016 End: 03-08-2023 Cetirizine-Pseudoephedrine D iscontinued 1 EACH PO DAILY December 27, 2016 12:00am March 08, 2023 11:11am End: 11-19-2023 take 1 tablet by mouth once cetirizine-pseudoephedrine (ZYRTEC- D) 5-120 mg per tablet Take 1 tablet by mouth. 0 11/19/2023 Discontinued (Discontinued by Patient) Comment on above: Take 1 tablet by misael th. cholecalciferol 0.025 mg oral capsule (20 sources) Vitamin D Start: 08-20-19 End: 12-08-19 take 1 capsule by mouth once daily Cholecalciferol (Vitamin D3) (Vitamin D3) 25 mcg (1,000 unit) capsule Discontinued 25 ug PO DAILY August 20, 2023 1:00am December 08, 2023 2:50am Supplement End: 11-19-2023 take 5 tablets by mouth once daily cholecalciferol (VITAMIN D3) 1,000 unit tab tablet Take 5,000 Units by mouth once daily. 0 11/19/2023 Discontinued (Discontinued by Patient) Comment on above: Take 5,000 Units by mouth once daily. ciprofloxacin 3 mg/ml / dexamethasone 1 mg/ml otic suspension (8 sources) Corticosteroid, Quinolone Antimicrobial Start: 10-21-19 14 Ciprodex 0.3-0.1 % Otic Suspension Quantity: 7 Refills: 0 Ordered: 20-Oct-2013 DO Start : 20-Oct-2013 Active diazePAM 5 mg oral tablet (20 sources) Benzodiazepine Start: 09-24-19 End: 12-08-19 take 2 tablets by mouth four times daily as needed for muscle spasms Diazepam 5 mg Tablet Discontinued 10 mg PO 4 TIMES DAILY as needed for Spasms September 25, 2023 1:00am December 08, 2023 2:51am Start: 09-24-2023 End: 12-08-2023 dicyclomine hydrochloride 10 mg oral capsule (20 sources) Anticholinergic Start: 03-31-2013 End: 10-21-2021 take 1 capsule by mouth three times daily before mealtime Dicyclomine 10 MG capsule Discontinued 10 mg PO THREE TIMES DAILY BEFORE MEALS December 27, 2016 12:00am October 21, 2021 10:24am Start: 03-31-2013 Dicyclomine HC l - 10 MG Oral Capsule Quantity: 100 Refills: 0 Ordered: 06-Dec-2013 DO Start : 31-Mar-2013 Active docusate sodium 50 mg / edith osides, detention 8.6 mg oral tablet (20 sources) Start: 09-12-2023 End: 12-08-2023 Start: 11-08-2017 End: 12-08-2023 Sennosides-Docusate Sodium ( Stool Softener-Stimulant Laxat) 8.6-50 mg Tablet Discontinued 2 {tbl} PO TWICE A DAY 0 0 September 12, 2023 1:00am December 08, 2023 3:00am Constipation Comment on above: Take 2 tablets by [facility] twice daily. doxepin hydrochloride 25 mg oral capsule (11 sources) Tricyclic Antidepressant Start: 09-24-19 End: 12-08-19 take 1 capsule by mouth at bedtime Doxepin 25 mg Capsule Discontinued 25 mg PO AT BEDTIME 30 30 0 September 24, 2023 1:00am December 08, 2023 2:51am Start: 09-24-2023 End: 12-08-2023 doxycycline monohydrate 100 mg oral capsule (20 sources) Tetracycline-class Drug Start: 12-08-2023 End: 08-20-2024 take 1 capsule by mouth twice daily Doxycycline Monohydrate 100 mg capsule Discontinued 100 mg PO TWICE A DAY December 08, 2023 12:00am August 20, 2024 11:13am infection prevention 11 doses. Start: 05-14-2023 End: 07-25-2023 take 1 capsule by mouth twice daily Doxycycline Monohydrate 100 mg capsule Discontinued 100 mg PO TWICE A DAY 20 0 May 14, 2023 12:00am July 25, 2023 11:08am drospirenone / Ethinyl Estradiol / levomefolate (14 sources) Progestin, Estrogen End: 11-19-2023 take 1 tablet by mouth once daily drospirenone-e.estradiol-lm.FA (BEYAZ) 3-0.02-0.451 mg (24) (4) tab Take 1 tablet by mouth once daily. 0 11/19/2023 Discontinued (Discontinued by Patient) take 1 tablet by misael once daily drospirenone-e.estradiol-lm.FA (BEYAZ) 3 -0.02-0.451 mg (24) (4) tab Take 1 tablet by mouth once daily. 0 Active Comment on above: Take 1 tablet by misael once daily. esomeprazole 20 mg delayed release oral capsule (8 sources) Proton Pump Inhibitor Start: 06-17-2018 Esomeprazole Magnesium 20 MG Oral Capsule Delayed Release Quantity: 0 Refills: 0 Ordered: 17-Jun-2018 DO Start : 17-Jun-2018 Active Start: 06-17-2018 Esomeprazole M agnesium 20 MG Oral Capsule Delayed Release Refills: 0 Start : 17-Jun-2018 Active furosemide 40 mg oral tablet (20 sources) Loop Diuretic Start: 09-04-2021 End: 10-21-2021 take 1 tablet by mouth once daily Furosemide (Lasix) 40 mg tablet Discontinued 40 mg PO DAILY 3 September 04, 2021 1:00am October 21, 2021 10:25am hyalur ac/chond sul/colg II/AA (HYALURONIC ACID, CHOND-COLLGN, ORAL) (14 sources) End: 11-19-2023 take 50 mg by mouth before mealtime hyalur ac/chond sul/colg II/AA (HYALURONIC ACID, CHOND-COLLGN, ORAL) Take 50 mg by mouth. 0 11/19/2023 Discontinued (Discontinued by Patient) take 50 mg by mouth before mealt yuko hyalur ac/chond sul/colg II/AA (HYALURONIC ACID, CHOND-COLLGN, ORAL) Take 50 mg by mouth. 0 Active Comment on above: Take 50 mg by mouth. levoFLOXacin 750 mg oral tablet (20 sources) Quinolone Antimicrobial Start: 08-30-19 End: 10-22-19 take 1 tablet by mouth once daily Levofloxacin 750 mg tablet Discontinued 750 mg PO DAILY 4 August 30, 2021 1:00am October 21, 2021 10:25am lidocaine 0.05 mg/mg medicated patch (20 sources) Antiarrhythmic, Amide Local Anesthetic Start: 09-12-19 End: 12-08-19 Lidocaine 5 % Adhesive Patch,Medicated Discontinued 2 NMA TOPICAL DAILY 60 30 0 September 24, 2023 1:00am December 08, 2023 2:53am Please contact the information source for Protocol details. lysine 500 mg oral tablet (14 sources) End: 11-19-19 Lysine 500 mg tab Take by mouth. 0 11/19/2023 Discontinued (Discontinued by Patient) Comment on above: Take by mouth. Magnesium (5 sources) Start: 10-10-19 End: 05-04-20 take 2 tablets by mouth once daily Magnesium 200 mg tablet Discontinued 400 mg PO daily October 10, 2024 1:00am May 04, 2025 11:06am Start: 10-10-2024 take 2 tablets by mo ut once daily Magnesium 200 mg tablet Active 400 mg PO daily October 10, 2024 1:00am magnesium oxide 400 mg oral capsule (14 sources) End: 11-19-2023 magnesium oxide 400 mg cap Take 1 capsule by mouth once daily. Twice a week 0 11/19/2023 Discontinued (Discontinued by Patient) Comment on above: Take 1 capsule by mo ut once daily. Twice a week meclizine hydrochloride 12.5 mg oral tablet (20 sources) Antiemetic Start: 12-08-2023 Meclizine 25 m g tablet Active 12.5 mg PO THREE TIMES A DAY as needed for dizziness December 08, 2023 12:00am Complies with drug therapy Start: 05-14-2023 End: 12-08-2023 take 1 tablet by mouth three times daily as needed for dizziness Meclizine 25 mg tablet Discontinued 25 mg PO THREE TIMES A DAY as needed for dizziness 20 0 May 14, 2023 12:00am December 08, 2023 3:13am Start: 06-17-2018 Meclizine HCl - 12.5 MG Oral Tablet Quantity: 0 Refills: 0 Ordered: 17-Jun-2018 DO Start : 17-Jun-2018 Active Start: 05-24-2015 End: 03-08-2023 take 1 tablet by mouth once daily as needed for dizziness Meclizine 12.5 MG tablet Discontinued 12.5 mg PO DAILY NEEDED as needed for Dizziness December 27, 2016 12:00am March 08, 2023 11:12am Start: 05-24-2015 End: 08-20-2024 take 1 tablet by mouth every six hours as needed Meclizine 12.5 mg Tablet Discontinued 12.5 mg PO EVERY 6 HOURS NEEDED as needed for Vertigo 0 0 December 18, 2023 12:00am August 20, 2024 11:14am Comment on above: as needed. Take 12.5 mg by mout h as needed. melatonin 10 mg oral tablet (20 sources) Start: 08-17-2021 End: 11-19-2023 take 1 tablet by mouth at bedtime as needed for sleep Melatonin 10 mg tablet Discontinued 10 mg PO BEDTIME as needed for Sleep August 17, 2021 1:00am January 24, 2023 10:52am Start: 08-17-2021 End: 01-24-2023 Comment on above: Take 10 mg by mouth as needed. methocarbamol 500 mg oral tablet (12 sources) Muscle Relaxant Start: End: take 2 tablets by mouth three times daily Methocarbamol 500 mg Tablet Discontinued 1000 mg PO 3 times daily 0 0 September 12, 2023 1:00am September 24, 2023 8:27pm Muscle Relaxer Start: 09-12-2023 End: 09-24-2023 methylPREDNISolone 4 mg oral tablet (14 sources) Corticosteroid Start: 02-07-2022 End: 11-19-2023 take 1 tablet by mouth once methylPREDNISolone (MEDROL, NANCIE,) 4 mg Dose-Pack Take 1 tablet by mouth as directed. As Instructed per package 1 Package 0 02/07/2022 11/19/2023 Discontinued (Course of therapy completed) Comment on above: Take 1 tablet by misael th as directed. As Instructed per package methylsulfonylmethane 1000 mg oral tablet (14 sources) End: 11-19-2023 methylsulfonylmethane (MSM ORAL) Take 1,000 mg by mouth. 0 11/19/2023 Discontinued (Discontinued by Patient) Comment on above: Take 1,000 mg by misael th. mometasone furoate 0.05 mg/actuat metered dose nasal spray (8 sources) Corticosteroid Start: 03-24-2013 Nasonex 50 MCG/ACT SUSP Quantity: 17 Refills: 0 Ordered: 14-Jun-2013 DO Start : 24-Mar-2013 Active Start: 03-24-2013 Nasonex 50 MCG /ACT Nasal Suspension Quantity: 17 Refills: 0 Start : 24-Mar-2013 Active Multivitamin Tablet (5 sources) Start: 12-18-2023 End: 08-20-2024 Multivitamin Tablet Disconti nued 1 {tbl} PO DAILY WITH MEALS 0 December 18, 2023 12:00am August 20, 2024 11:15am Start: 12-18-2023 End: 08-20-2024 Multivitamin Tablet Disconti nued 1 {tbl} PO DAILY WITH MEALS 0 December 18, 2023 12:00am August 20, 2024 11:15am niacin 100 mg oral tablet (14 sources) Nicotinic Acid End: 11-19-2023 take 1 tablet by mouth once daily at breakfast niacin (NIACIN) 100 mg tablet Take 100 mg by mouth daily with breakfast. 0 11/19/2023 Discontinued (Discontinued by Patient) Comment on above: Take 100 mg by mouth daily with breakfast. 24 hr nicotine 0.292 mg/hr transdermal system (6 sources) Cholinergic Nicotinic Agonist Start: 12-18-2023 End: 08-20-2024 Nicotine 7 mg/24 hr Patch 24 Hour Discontinued 7 mg TD DAILY@0600 30 30 0 December 18, 2023 12:00am August 20, 2024 11:15am norethindrone 0.35 mg oral tablet (20 sources) Start: 12-27-2016 End: 10-21-2021 Start: 04-27-2014 End: 10-21-2021 take 1 tablet by mouth once daily Norethindrone (Contraceptive) (Franny) 0.35 MG tablet Discontinued 0.35 mg PO DAILY December 27, 2016 12:00am October 21, 2021 10:25am NORETHINDRONE, CONTRACEPTIVE , ORAL (14 sources) End: 11-19-2023 NORETHINDRONE, CONTRACEPTIVE , ORAL Take 0.35 mg by mouth. 0 11/19/2023 Discontinued (Discontinued by another Health Care Provider) NORETHINDRONE, C ONTRACEPTIVE, ORAL Take 0.35 mg by mouth. 0 Active Comment on above: Take 0.35 mg by mout h. omeprazole 40 mg delayed release oral capsule (20 sources) Proton Pump Inhibitor Start: 7 End: 5 take 1 capsule by mouth once daily Omeprazole 40 mg capsule,delayed release(DR/EC) Discontinued 40 mg PO DAILY 30 5 October 29, 2024 1:12pm May 04, 2025 11:38am PER DR Comment on above: Take by mouth once d aily. Take 40 mg by mouth once daily. oxyCODONE hydrochloride 5 mg oral tablet (20 sources) Opioid Agonist Start: 4 End: take 1 tablet by mouth every four hours as needed for pain Oxycodone 5 mg Tablet Discontinued 5 mg PO EVERY 4 HOURS NEEDED as needed for Pain Score 1-10 0 0 December 18, 2023 August 20, 2024 11:15am Start: 09-12-2023 End: 09-24-2023 take 1 tablet by mouth twice daily Oxycodone (Oxycontin) 10 mg Tablet,Oral Only,Ext.Rel.12 Hr Discontinued 20 mg PO TWICE A DAY 28 7 0 September 12, 2023 September 24, 2023 8:28pm Status post lumbar spinal fusion Arthrodesis status Pain Give for 14 doses and then discontinue predniSONE 20 mg oral tablet (17 sources) Start: 02-20-2023 End: 03-08-2023 take 2 tablets by mouth once daily Prednisone 20 mg tablet Discontinued 40 mg PO DAILY 8 February 20, 2023 12:00am March 08, 2023 11:13am Start: 02-20-2023 End: 03-08-2023 Start: 08-09-2021 End: 02-07-2022 predniSONE (DELTASONE) 10 mg tablet Take by mouth four (4) tabs x3 days; then three (3) tabs x3days; then two (2) tabs x3 days; then one (1) tab a day x3 days 30 tablet 0 08/09/2021 02/07/2022 Discontinued Comment on above: Take by mouth four ( 4) tabs x3 days; then three (3) tabs x3days; then two (2) tabs x3 days; then one (1) tab a day x3 days raNITIdine 150 mg oral tablet (8 sources) Histamine-2 Receptor Antagonist Start: 03-24-2013 raNITIdine HCl 150 MG TABS Quantity: 60 Refills: 0 Ordered: 19-Jun-2013 DO Start : 24-Mar-2013 Active Start: 03-24-2013 raNITIdine HCl 150 MG TABS Quantity: 60 Refills: 0 Start : 24-Mar-2013 Active rizatriptan 5 mg disintegrating oral tablet (6 sources) Serotonin-1b and Serotonin-1d Receptor Agonist Start: 03-27-2023 take 1 tablet by mouth every two hours as needed rizatriptan (MAXALT QUALITY ASSURANCE CLERK) 5 mg disintegrating tablet Take 1 tablet by mouth as needed. May repeat in 2 hours if needed.dont exceed 10 mg in 24 hours 12 tablet 3 03/27/2023 Active Comment on above: Take 1 tablet by misael th as needed. May repeat in 2 hours if needed.dont exceed 10 mg in 24 hours Sennosides (Senna) 8.6 mg tablet (4 sources) Start: 12-08-2023 End: 08-20-2024 take 2 tablets by mouth at bedtime Sennosides (Senna) 8.6 mg tablet Discontinued 17.2 mg PO AT BEDTIME December 08, 2023 12:00am August 20, 2024 11:16am stool softener Start: 12-08-2023 End: 08-20-2024 take 2 tablets by mouth at bedtime Sennosides (Senna) 8.6 mg tablet Discontinued 17.2 mg PO AT BEDTIME December 08, 2023 12:00am August 20, 2024 11:16am sennosides, detention 8.6 mg oral tablet (1 source) Start: 12-08-2023 End: 08-20-2024 take 2 tablets by mouth at bedtime Sennosides (Senna) 8.6 mg tablet Discontinued 17.2 mg PO AT BEDTIME December 08, 2023 12:00am August 20, 2024 11:16am stool softener Slynd 4 MG Oral Tablet (2 sources) Start: 02-24-2020 take 1 tablet by mouth once daily Slynd 4 MG Oral Tablet TAKE 1 TABLET BY MOUTH EVERY DAY Quantity: 28 Refills: 11 Feli Anthony MD Start : 24-Feb-2020 Active Slynd 4 MG Oral Tablet (5 sources) Start: 02-24-2020 take 1 tablet by mouth once daily Slynd 4 MG Oral Tablet TAKE 1 TABLET BY MOUTH EVERY DAY Quantity: 28 Refills: 11 Ordered: 24-Feb-2020 Feli Anthony MD Start : 24-Feb-2020 Active Patient cannot tolerate norethindrone. Must have Slynd. tiZANidine 2 mg oral tablet (20 sources) Central alpha-2 Adrenergic Agonist Start: 12-18-2023 End: 05-04-2025 take 2 tablets by mouth three times daily as needed Tizanidine 2 mg tablet Discontinued 4 mg PO THREE TIMES A DAY as needed August 20, 2024 11:16am May 04, 2025 11:07am Start: 12-08-2023 End: 08-20-2024 take 1 tablet by mouth at bedtime Tizanidine 4 mg tablet Discontinued 4 mg PO AT BEDTIME December 08, 2023 12:00am August 20, 2024 11:17am muscle relaxant Start: 12-08-2023 take 1 capsule by mo ut every twenty-four hours as needed tiZANidine HCl (ZANAFLEX) 4 mg capsule Take 4 mg by mouth at bedtime as needed. Active Comment on above: Take 4 mg by mouth a t bedtime as needed. topiramate 100 mg oral table t (20 sources) Start: 08-17-2021 End: 02-07-2023 Start: 06-17-2018 End: 02-27-2025 take 1 tablet by mouth twice daily Topiramate 100 mg Tablet Discontinued 100 mg PO TWICE A DAY 0 December 18, 2023 12:00am October 29, 2024 1:59pm Start: 06-17-2018 Topamax 100 MG Oral Tablet Quantity: 0 Refills: 0 Ordered: 17-Jun-2018 DO Start : 17-Jun-2018 Active Start: 12-27-2016 End: 10-21-2021 take 1 capsule by mouth twice daily Topiramate 100 MG capsule,sprinkle,ER 24hr Discontinued 100 mg PO TWICE A DAY December 27, 2016 12:00am October 21, 2021 10:25am Comment on above: Take 1 tablet by misael every morning AND 2 tablets daily at bedtime. Take 100 mg by mouth twice daily. Take 100 mg by mouth two times a day. traMADol hydrochloride 50 mg oral tablet (20 sources) Opioid Agonist Start: End: take 1 tablet by mouth every six hours as needed for pain Tramadol 50 mg tablet Discontinued 50 mg PO EVERY 6 HOURS as needed for pain 12 3 0 February 20, 2023 12:00am March 08, 2023 11:13am Right lumbar radiculopathy Radiculopathy, lumbar region Start: 07-07-2013 End: 08-20-2024 take 1 tablet by mouth twice daily Tramadol 50 mg Tablet Discontinued 50 mg PO TWICE A DAY 0 December 18, 2023 12:00am August 20, 2024 11:17am Start: 07-07-2013 traMADol HCl - 50 MG Oral Tablet Quantity: 90 Refills: 0 Ordered: 07-Jul-2013 DO Start : 07-Jul-2013 Active Comment on above: Take 50 mg by mouth two times a day. trimethobenzamide hydrochloride 300 mg oral capsule (20 sources) Antiemetic Start: 017 End: 022 take 1 capsule by mouth once daily Trimethobenzamide 300 MG capsule Discontinued 300 mg PO DAILY December 27, 2016 12:00am October 21, 2021 10:25am Problems Active Problems Problem Classification Problem Date Documented Da te Episodic/Chronic Abdominal pain (19 sources) Right upper quadrant pain; Translations: [Right upper quadrant pain] 09-06-2023 Episodic Acute bronchitis (20 sources) Acute viral bronchitis; Translations: [Acute bronchitis due to other specified organisms] 03-19-2022 Episodic Administrative/social admission (2 sources) First encounter by subject; Translations: [Persons encountering health services in other specified circumstances] 10-29-2024 Episodic Anxiety disorders (2 sources) Mild anxiety; Translations: [Anxiety disorder, unspecified] 10-29-2024 Chronic Aortic; peripheral; and visceral artery aneurysms (20 sources) Aneurysm of ascending aorta; Translations: [Ascending aortic aneurysm] 08-30-2023 Chronic Conditions associated with dizziness or vertigo (20 sources) Meniere's disease, right ear; Translations: [Meniere's disease of right inner ear] Onset: Chronic Conditions associated with dizziness or vertigo (16 sources) Vertigo; Translations: [Dizziness and giddiness] 05-14-2023 Episodic Deficiency and other anemia (20 sources) Anemia; Translations: [Anemia, unspecified] Onset: 4 09-12-2023 Episodic Deficiency and other anemia (7 sources) Anemia, unspecified; Translations: [Anemia, unspecified] 09-12-2023 Episodic Disorders of lipid metabolism (20 sources) Pure hypercholesterolemia, unspecified; Translations: [Hyperlipidemia] Onset: Chronic Esophageal disorders (20 sources) Gastroesophageal reflux disease; Translations: [Gastro-esophageal reflux disease without esophagitis] Onset: 5 09-12-2023 Chronic Esophageal disorders (1 source) Esophageal disorders Essential hypertension (20 sources) Essential hypertension; Translations: [Essential (primary) hypertension] Onset: 8 10-22-2017 Chronic Fluid and electrolyte disorders (20 sources) Hypokalemia; Translations: [Hypokalemia] Onset: 8 Episodic Comment on above: ON MED Genitourinary symptoms and ill-defined conditions (19 sources) Retention of urine; Translations: [Retention of urine, unspecified] 09-12-2023 Episodic Headache; including migraine (20 sources) Migraine variants; Translations: [Other migraine, not intractable, without status migrainosus] Onset: 0 Resolved: 4 Chronic Immunizations and screening for infectious disease (13 sources) Patient encounter status; Translations: [Screening examination for venereal disease] Episodic Intestinal obstruction without hernia (20 sources) Intestinal obstruction co-occurrent and due to decreased peristalsis; Translations: [Ileus, unspecified] 09-08-2023 Episodic Malaise and fatigue (20 sources) Asthenia; Translations: [Other malaise] 09-12-2023 Episodic Menopausal disorders (20 sources) Menorrhagia; Translations: [Excessive bleeding in the premenopausal period] Onset: 1 02-08-2021 Chronic Menstrual disorders (8 sources) Irregular periods; Translations: [Irregular menstrual cycle] Chronic Miscellaneous mental health disorders (20 sources) Pain disorder with psychological factor; Translations: [Pain disorder with related psychological factors] Onset: 6 09-13-2015 Chronic Mood disorders (20 sources) Recurrent major depression in partial remission; Translations: [Major depressive disorder, recurrent, in partial remission] Onset: 5 Resolved: 4 06-23-2015 Chronic Nausea and vomiting (7 sources) Nausea; Translations: [Nausea] 12-08-2023 Episodic Nutritional deficiencies (20 sources) Vitamin D deficiency; Translations: [Vitamin D deficiency, unspecified] Onset: 1 02-08-2021 Chronic Osteoarthritis (20 sources) Osteoarthritis of left hip joint; Translations: [Unilateral primary osteoarthritis, left hip] Onset: 8 Resolved: 4 10-22-2017 Chronic Other acquired deformities (14 sources) Scoliosis of lumbar spine; Translations: [Scoliosis, unspecified] 06-26-2023 Chronic Other acquired deformities (20 sources) Scoliosis, unspecified; Translations: [Scoliosis [and kyphoscoliosis], idiopathic] 06-26-2023 Chronic Other acquired deformities (14 sources) Spondylolisthesis L5/S1 level; Translations: [Spondylolisthesis, lumbosacral region] 06-21-2023 Episodic Other acquired deformities (20 sources) Spondylolisthesis, lumbosacral region; Translations: [Spondylolisthesis] 06-21-2023 Episodic Other aftercare (1 source) Long-term current use of diuretic; Translations: [Other salvage determiner (current) drug therapy] Episodic Other connective tissue disease (2 sources) Presence of right artificial hip joint; Translations: [Hip joint replacement] Onset: 4 12-21-2023 Chronic Other connective tissue disease (13 sources) History of total hip arthroplasty; Translations: [Presence of right artificial hip joint] Onset: 8 Resolved: 8 12-08-2023 Chronic Other connective tissue disease (7 sources) History of total replacement of right hip joint; Translations: [Presence of right artificial hip joint] Onset: 4 12-07-2023 Chronic Other connective tissue disease (2 sources) Trochanteric bursitis, right hip; Translations: [Enthesopathy of hip region] 01-24-2023 Episodic Other connective tissue disease (2 sources) Other bursitis of knee, right knee; Translations: [Pes anserinus tendinitis or bursitis] 01-24-2023 Episodic Other connective tissue disease (12 sources) History of lumbar fusion; Translations: [Arthrodesis status] 09-03-2023 Episodic Other connective tissue disease (14 sources) Neuropathic pain; Translations: [Neuralgia and neuritis, unspecified] 09-12-2023 Episodic Other connective tissue disease (17 sources) Arthrodesis status; Translations: [Arthrodesis status] 09-12-2023 Episodic Other connective tissue disease (8 sources) Neuralgia and neuritis, unspecified; Translations: [Neuralgia, neuritis, and radiculitis, unspecified] 09-12-2023 Episodic Other connective tissue disease (6 sources) Spasm; Translations: [Other muscle spasm] 12-08-2023 Episodic Other connective tissue disease (1 source) Other muscle spasm; Translations: [Spasm of muscle] 12-21-2023 Episodic Other connective tissue disease (2 sources) Suspected respiratory disease; Translations: [Other symptoms and signs involving the nervous system] 10-29-2024 Episodic Other ear and sense organ disorders (5 sources) Otalgia; Translations: [Otalgia, unspecified] Episodic Other ear and sense organ disorders (3 sources) Pain of ear structure; Translations: [Otalgia, unspecified] Episodic Other gastrointestinal disorders (11 sources) Irritable bowel syndrome; Translations: [Irritable bowel syndrome without diarrhea] 11-19-2023 Chronic Other nervous system disorders (1 source) Impairment of balance; Translations: [Other abnormalities of gait and mobility] Episodic Other nervous system disorders (1 source) Other acute postprocedural pain; Translations: [Postoperative pain] Onset: Episodic Other nervous system disorders (2 sources) Cold feet; Translations: [Unspecified disturbances of skin sensation] 10-29-2024 Episodic Other non-traumatic joint disorders (14 sources) Hip pain; Translations: [Pain in right hip] 06-18-2023 Episodic Other nutritional; endocrine; and metabolic disorders (20 sources) Obesity; Translations: [Obesity, unspecified] 06-18-2023 Chronic Other nutritional; endocrine; and metabolic disorders (6 sources) Obesity, unspecified; Translations: [Obesity, unspecified] 06-18-2023 Chronic Other upper respiratory disease (20 sources) Rhinitis; Translations: [Chronic rhinitis] Onset: 3 04-21-2013 Chronic Other upper respiratory disease (12 sources) Allergic rhinitis; Translations: [Allergic rhinitis, unspecified] 09-12-2023 Chronic Other upper respiratory disease (8 sources) Allergic rhinitis, unspecified; Translations: [Allergic rhinitis, cause unspecified] 09-12-2023 Chronic Other upper respiratory infections (16 sources) Acute maxillary sinusitis; Translations: [Acute maxillary sinusitis, unspecified] 05-14-2023 Episodic Pneumonia (except that caused by tuberculosis or sexually transmitted disease) (20 sources) Pneumonia; Translations: [Pneumonia, unspecified organism] 09-07-2021 Episodic Residual codes; unclassified (1 source) Hypersomnia, unspecified; Translations: [Hypersomnia, unspecified] Onset: 5 Chronic Residual codes; unclassified (20 sources) Edema of lower extremity; Translations: [Localized edema] 09-12-2021 Episodic Residual codes; unclassified (11 sources) Altered mental status; Translations: [Altered mental status, unspecified] 09-25-2023 Episodic Residual codes; unclassified (2 sources) Medication refused; Translations: [Immunization not carried out because of patient refusal] 10-29-2024 Episodic Residual codes; unclassified (2 sources) Electronic cigarette user; Translations: [Other specified health status] 10-29-2024 Episodic Spondylosis; intervertebral disc disorders; other back problems (20 sources) Degeneration of lumbosacral intervertebral disc; Translations: [Other intervertebral disc degeneration, lumbosacral region] Onset: 5 Chronic Substance-related disorders (20 sources) Nicotine dependence; Translations: [Nicotine dependence, unspecified, uncomplicated] Onset: 8 11-07-2017 Chronic Thyroid disorders (20 sources) Hypothyroidism; Translations: [Hypothyroidism, unspecified] Onset: 8 10-22-2017 Chronic Unclassified (13 sources) Transformed migraine; Translations: [Chronic migraine] Onset: 5 12-08-2014 Unclassified (1 source) Aneurysm of the ascending aorta, without rupture; Translations: [Aneurysm of the ascending aorta, without rupture] Onset: 5 Urinary tract infections (8 sources) Bacterial urinary infection; Translations: [Urinary tract infection, site not specified] Episodic Past or Other Problems Problem Classification Problem Date Documented Date Episodic/Chronic Complication of device; implant or graft (20 sources) Complication of implant; Translations: [Breakdown (mechanical) of other specified internal prosthetic devices, implants and grafts, initial encounter] Onset: 04-21-2013 04-21-2013 Episodic Headache; including migraine (20 sources) Medication overuse headache; Translations: [Drug-induced headache, not elsewhere classified, not intractable] Onset: 12-08-2014 Resolved: 11-19-2023 12-08-2014 Episodic Miscellaneous mental health disorders (20 sources) Psychophysiologic insomnia; Translations: [Adjustment insomnia] Onset: 02-08-2021 02-08-2021 Episodic Other aftercare (7 sources) Patient encounter status; Translations: [Aftercare following joint replacement surgery] Onset: 12-05-2023 Resolved: 12-07-2023 12-07-2023 Chronic Other connective tissue disease (20 sources) Muscle pain; Translations: [Myalgia and myositis, unspecified] Onset: 12-08-2014 Resolved: 11-19-2023 12-08-2014 Episodic Other ear and sense organ disorders (20 sources) Otalgia, right ear; Translations: [Otalgia, unspecified] Onset: 04-21-2013 Resolved: 11-19-2023 04-21-2013 Episodic Other nervous system disorders (20 sources) Abnormal gait; Translations: [Unspecified abnormalities of gait and mobility] Onset: 07-19-2009 07-19-2009 Episodic Other nervous system disorders (7 sources) Postoperative pain ; Translations: [Other acute postprocedural pain] Onset: 12-05-2023 Resolved: 12-07-2023 12-07-2023 Episodic Other screening for suspected conditions (not mental disorders or infectious disease) (9 sources) Encounter for screening mammogram for malignant neoplasm of breast; Translations: [Encounter for screening for malignant neoplasm of colon] Onset: 10-09-2022 Episodic Other upper respiratory infections (20 sources) Sinusitis; Translations: [Chronic sinusitis, unspecified] Onset: 04-21-2013 Resolved: 11-19-2023 04-21-2013 Chronic Otitis media and related conditions (20 sources) Perforation of right tympanic membrane; Translations: [Unspecified perforation of tympanic membrane, right ear] Onset: 03-11-2010 Episodic Spondylosis; intervertebral disc disorders; other back problems (20 sources) Spinal stenosis; Translations: [Spinal stenosis, site unspecified] Onset: 07-19-2009 Resolved: 11-19-2023 07-19-2009 Episodic Comment on above: 4 disc 4 disc; 08/2023 Substance-related disorders (11 sources) Marijuana user; Translations: [Cannabis use, unspecified, uncomplicated] Onset: 11-19-2023 11-19-2023 Episodic Syncope (2 sources) Syncope and collapse; Translations: [Syncope and collapse] Onset: 05-12-2022 Episodic Unclassified (14 sources) Patient encounter status; Translations: [Screening examination for STD (sexually transmitted disease)] NEGATED: Highlighted row has not occurred!Residual codes; unclassified (8 sources) Disease Episodic Results Test Name Value Interpretation Reference Range Facility [facility] 06-12-2025 CNOV Office Visit (PSYLST ) ----- BRUNO PATTERSON ([id number]) 1970 F Date Time Provider Department 06/12/25 11:00 AM PERCY VARGAS PSYLST During your visit today, we recorded the following information about you: Percy Vargas LISW 06/12/2025 4:08 PM Signed GENERAL PSYCHOLOGY Session #: 98 (session count starts after PSYL NEW EVAL visit) Visit Type:The patient consented to a virtual visit and their location was confirmed. SUBJECTIVE: I have communicated my name and active licensure. The patient's identity and physical location were verified at the time of this visit. Either the patient or their legal outbound telemarketing representative has been informed of the risks and benefits of -- and alternatives to -- treatment through a remote evaluation and consents to proceed with the evaluation remotely. PATIENT DATA: Generalized Anxiety Disorder Scale (JET-7) 05/06/2025 05/21/2025 06/11/2025 JET - 7 SCORES Score 8 8 8 (0-4) minimal anxiety, (5-9) mild anxiety, (10-14) moderate anxiety, (15-21) severe anxiety Patient Health Questionnaire (PHQ-9) 05/06/2025 05/21/2025 06/11/2025 PHQ-9 Score 11 10 10 (0-4) minimal depression, (5-9) mild depression, (10-14) moderate depression, (15-19) moderately severe depression, (20-27) severe depression OBJECTIVE: Supportive therapy Mental Status Exam: General/Sensorium: Alert and AND interactive - Appearance: Appears stated age - Eye Contact: Appropriate eye [...] Patient worked on processing through her emotional symptoms. Patient worked on addressing some current family related problems DIAGNOSIS: PRIMARY: 1: Major depression recurrent moderate Other: None PROVISIONAL: None TREATMENT MODALITIES: Cognitive Behavioral Therapy to self monitoring PROGRESS TO DATE: [facility] Progress: Progress Short Term Condition: Regressed GOALS/OBJECTIVES/INTERVEN TIONS: Patient to reduce symptoms of depression Patient to improve sleep hygiene Patient to improve self-care Patient to improve conflict resolution skills Patient to improve use of coping mechanisms Approximately 45 minutes were spent with the patient doing therapy. WILLOW Adamson Referring Provider: PERCY VARGAS [[id number]] Allergies As of Date: 06/12/2025 Noted Allergy Reaction CITRIC ACID 11/10/2021 14 - Other: See Comments Comments: Wears down lining of the mouth. Fruit and tomatoes CYMBALTA (DULOXETINE) 06/04/2009 14 - Other: See Comments Comments: Weight gain PENICILLINS 05/04/2009 4 - Hives SHELLFISH DERIVED 10/22/2017 11 - Vomiting Date Reviewed: 12/05/2023 Reviewed by: Davis Jesus RN - Fully Assessed Primary Visit Diagnosis:Depression, major, recurrent, moderate (HCC) [F33.1] Order(s):PROVIDER ORDERED FOLLOW UP [[id number]] Order #: [id number]: 1 PROVIDER ORDERED FOLLOW UP [[id number]] Order #: [id number]: 1 FUTURE PROVIDER ORDERED FOLLOW UP [[id number]] Order #: [id number]: 1 FUTURE Prescriptions as of 06/12/2025 - lamoTRIgine (LAMICTAL) 100 mg tablet TAKE 1 TABLET BY MOUTH TWICE A DAY - topiramate (TOPAMAX) 100 mg tablet Take 1 tablet by mouth two times a day. - potassium chloride ER (KLOR-CON) 20 mEq tablet Take 1 tablet by mouth three times a day. - acetaminophen (TYLENOL) 500 mg tablet Take 2 tablets by mouth every 8 hours. - ascorbic acid, vitamin C, (VITAMIN C) 500 mg tablet Take 1 tablet by mouth two times a day with meals for 25 doses. - aspirin, enteric coated (ASPIRIN, ENTERIC COATED) 81 mg EC tablet Take 1 tablet by mouth two times a day for 28 days. - traMADol (ULTRAM) 50 mg tablet Take 50 mg by mouth two times a day. - buprenorphine (BUTRANS) 5 mcg/hour Apply 1 Patch as directed one time a week. - tiZANidine HCl (ZANAFLEX) 4 mg capsule Take 4 mg by mouth at bedtime as needed. - gabapentin (NEURONTIN) 600 mg tablet Take 600 mg by mouth two times a day. - levothyroxine 88 mcg cap Take 88 mcg by mouth daily before breakfast. - Cetirizine 10 mg cap Take 1 capsule by mouth once daily. - fluticasone (FLONASE) 50 mcg/actuation nasal spray Use 1 [place] in each nostril as needed. - rosuvastatin (CRESTOR) 5 mg tablet Take 10 mg by mouth once daily. - dexAMETHasone 0.1 % ophthalmic solution 3 drops 3 times a day to affected ear as needed vertigo - triamterene-hydroCHLOROth iazide (MAXZIDE-25) 37.5-25 mg per tablet Take 1 tablet by mouth once da (more content not included)... Normal [facility] Gastroenterology Visit Repor ton 06-05-2025 Gastroenterology Visit Report [facility] [address] [place] [address] OFFICE VISIT Date of Service: 06/05/25 MR#: [id number] Acct: [id number] Name: BRUNO PATTERSON Jadyn Rep #: [id number] : 1970 Provider: ALEXANDRA Valderrama Age/Sex: 54/F Location: [facility] Status: Signed Intake Vital Signs 05/04/25 11:09 Height 5 ft 5 in Weight: 223 lb BMI 37.0 BP 140/90 H Blood Pressure Location Lt brachial Position Sitting Respiration 16 Pulse 88 Pulse Source Monitor Temp 98.4 F Temp Source Temporal Pulse Oximetry (%) 97 Oxygen Delivery Method room air Intake Visit Reasons: Gastroesophageal reflux disease (GERD) Chief Complaint: Heartburn Allergies shellfish derived Allergy (Severe, Verified 06/05/25 10:55) vomitting Penicillins Allergy (Verified 06/05/25 10:55) Hives duloxetine (From Cymbalta) Adverse Reaction (Intermediate, Verified 06/05/25 10:55) Other gluten Adverse Reaction (Intermediate, Verified 06/05/25 10:55) stomach discomfort Medications ???Medication ???Instructions ???Recorded ???Confirmed ???Type ondansetron HCl 4 mg tablet 4 mg PO Q8H PRN NAUSEA 08/17/21 History cetirizine 10 mg tablet (Zyrtec) 10 mg PO DAILY allergy symptoms 06/05/25 History multivitamin (Daily Multi-Vitamin 1 tab PO DAILY PER 08/20/23 History tablet) meclizine 25 mg tablet 12.5 mg PO TID PRN dizziness 12/0706/05/25 History potassium chloride 20 mEq 20 meq PO TIDCM 30 days #90 tabs 0 12/18/23 06/05/25 Rx tablet,extended release(part/cryst) acetaminophen 500 mg tablet 1,000 mg PO Q8 PRN 08/20/24 History topiramate 100 mg tablet 100 mg PO BID #60 tabs 10/29/24 Rx celecoxib 200 mg capsule (Celebrex) 200 mg PO QDAY #30 caps 5 06/05/25 Rx rosuvastatin 10 mg tablet 10 mg PO DAILY PER DR REAGAN #90 tab s 03/12/25 06/05/25 Rx levothyroxine 88 mcg tablet 88 mcg PO DAILY@0600 #90 tabs 0904/0606/05/25 Rx triamterene 37.5 1 cap PO DAILY #90 caps 04/20/25 1 Rx mg-hydrochlorothiazide 25 mg capsule lamotrigine 100 mg tablet 100 mg PO BID PER 05/04/2505/14 History amiloride 5 mg tablet 5 mg PO DAILY MENERIES #90 tabs 06/05/25 Rx gabapentin 600 mg tablet 600 mg PO BID #60 TABLETS 05/11/25 06/05/25 Rx ipratropium bromide 21 mcg (0.03 2 spray intranasal BID-TID PRN 06/05/25 History %) nasal spray venlafaxine 75 mg capsule,extended 150 mg (2 x 75 mg) PO DAILY #90 05/12/25 06/05/25 Rx release 24 hr caps omeprazole 40 mg capsule,delayed 40 mg PO DAILY PER #30 caps 06/05/25 Rx release PFSH Medical History Vertigo Acute maxillary sinusitis, unspecified Loss of hearing Wears glasses Depression Anxiety Ambulates with cane Anemia Easy bruising Migraine headache Injury of head and neck Menieres disease Dietary restriction History of ulceration Gastric reflux Former smoker Leg cramps History of pain when walking History of edema Pneumonia Pain Hypokalemia Vitamin deficiency Vision problem Ulcer Osteoarthritis Neuropathy IBS (irritable bowel syndrome) Hearing problem Back problem Arthritis Seasonal allergies Surgical History Fusion of lumbar spine History of total right hip arthroplasty S/P insertion of spinal cord stimulator H/O total hip arthroplasty Family History Father Alcohol abuse Colon cancer, Onset Age: 69 Diabetes Respiratory disease Melanoma Dementia Sister Alcohol abuse Arthritis Asthma Son Anxiety Mother Arthritis Asthma Heart disease Hypertension Aunt Autoimmune disease lupus Brother Hypertension Heart disease Other Bowel disease Depression High cholesterol Mental disorder Psychiatric care Severe allergic reaction Thyroid disorder Social History adopted: No household members: none number of children: 1 current occupational status: disabled current occupation: Disabled current occupational exposures/hazards: No pets and animals: Yes history of recent travel: No sexually active: No Smoking Status: Current every day smoker tobacco type: e-cigarettes Electronic Cigarette Use: with nicotine alcohol intake: former year quit: 2015? 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 [facility] 05-22-2025 CNOV Office Visit (PSYLST ) ----- BRUNO PATTERSON ([id number]) 1970 F Date Time Provider Department 05/22/25 11:00 AM PERCY VARGAS PSYLST During your visit today, we recorded the following information about you: Percy Vargas LISW 05/22/2025 1:52 PM Signed GENERAL PSYCHOLOGY Session #: 97 (session count starts after PSYL NEW EVAL visit) Visit Type:The patient consented to a virtual visit and their location was confirmed. SUBJECTIVE: I have communicated my name and active licensure. The patient's identity and physical location were verified at the time of this visit. Either the patient or their legal outbound telemarketing representative has been informed of the risks and benefits of -- and alternatives to -- treatment through a remote evaluation and consents to proceed with the evaluation remotely. PATIENT DATA: Generalized Anxiety Disorder Scale (JET-7) 04/09/2025 05/06/2025 05/21/2025 JET - 7 SCORES Score 9 8 8 (0-4) minimal anxiety, (5-9) mild anxiety, (10-14) moderate anxiety, (15-21) severe anxiety Patient Health Questionnaire (PHQ-9) 04/09/2025 05/06/2025 05/21/2025 PHQ-9 Score 9 11 10 (0-4) minimal depression, (5-9) mild depression, (10-14) moderate depression, (15-19) moderately severe depression, (20-27) severe depression OBJECTIVE: Supportive therapy Mental Status Exam: General/Sensorium: Alert and AND interactive - Appearance: Appears stated age - Eye Contact: Appropriate eye [...] Patient worked on processing through her emotional symptoms. Patient worked on addressing forgiveness of her past hurts. DIAGNOSIS: PRIMARY: 1: Major depression recurrent moderate Other: None PROVISIONAL: None TREATMENT MODALITIES: Cognitive Behavioral Therapy to self monitoring PROGRESS TO DATE: [facility] Progress: Progress Short Term Condition: Regressed GOALS/OBJECTIVES/INTERVEN TIONS: Patient to reduce symptoms of depression Patient to improve sleep hygiene Patient to improve self-care Patient to improve conflict resolution skills Patient to improve use of coping mechanisms Approximately 45 minutes were spent with the patient doing therapy. WILLOW Adamson Referring Provider: PERCY VARGAS [[id number]] Allergies As of Date: 05/22/2025 Noted Allergy Reaction CITRIC ACID 11/10/2021 14 - Other: See Comments Comments: Wears down lining of the mouth. Fruit and tomatoes CYMBALTA (DULOXETINE) 06/04/2009 14 - Other: See Comments Comments: Weight gain PENICILLINS 05/04/2009 4 - Hives SHELLFISH DERIVED 10/22/2017 11 - Vomiting Date Reviewed: 12/05/2023 Reviewed by: Davis Jesus RN - Fully Assessed Visit Diagnosis:Depression, major, recurrent, moderate (HCC) [F33.1] Order(s):PROVIDER ORDERED FOLLOW UP [[id number]] Order #: [id number]: 1 Prescriptions as of 05/22/2025 - lamoTRIgine (LAMICTAL) 100 mg tablet TAKE 1 TABLET BY MOUTH TWICE A DAY - topiramate (TOPAMAX) 100 mg tablet Take 1 tablet by mouth two times a day. - potassium chloride ER (KLOR-CON) 20 mEq tablet Take 1 tablet by mouth three times a day. - acetaminophen (TYLENOL) 500 mg tablet Take 2 tablets by mouth every 8 hours. - ascorbic acid, vitamin C, (VITAMIN C) 500 mg tablet Take 1 tablet by mouth two times a day with meals for 25 doses. - aspirin, enteric coated (ASPIRIN, ENTERIC COATED) 81 mg EC tablet Take 1 tablet by mouth two times a day for 28 days. - traMADol (ULTRAM) 50 mg tablet Take 50 mg by mouth two times a day. - buprenorphine (BUTRANS) 5 mcg/hour Apply 1 Patch as directed one time a week. - tiZANidine HCl (ZANAFLEX) 4 mg capsule Take 4 mg by mouth at bedtime as needed. - gabapentin (NEURONTIN) 600 mg tablet Take 600 mg by mouth two times a day. - levothyroxine 88 mcg cap Take 88 mcg by mouth daily before breakfast. - Cetirizine 10 mg cap Take 1 capsule by mouth once daily. - fluticasone (FLONASE) 50 mcg/actuation nasal spray Use 1 [place] in each nostril as needed. - rosuvastatin (CRESTOR) 5 mg tablet Take 10 mg by mouth once daily. - dexAMETHasone 0.1 % ophthalmic solution 3 drops 3 times a day to affected ear as needed vertigo - triamterene-hydroCHLOROth iazide (MAXZIDE-25) 37.5-25 mg per tablet Take 1 tablet by mouth once daily. - venlafaxine (EFFEXOR) 37.5 mg tablet Take 75 mg by mouth once daily. - aMILoride (MIDAMOR) 5 mg tablet Take 5 mg by mouth once daily. - ondanset (more content not included)... Normal [facility] CNOVon 05-08-2025 CNOV Office Visit (PSYLST ) ----- BRUNO PATTERSON ([id number]) 1970 F Date Time Provider Department 05/08/25 11:00 AM PERCY VARGAS PSYLST During your visit today, we recorded the following information about you: Percy Vargas LISW 05/08/2025 1:14 PM Signed GENERAL PSYCHOLOGY Session #: 96 (session count starts after PSYL NEW EVAL visit) Visit Type:The patient consented to a virtual visit and their location was confirmed. SUBJECTIVE: I have communicated my name and active licensure. The patient's identity and physical location were verified at the time of this visit. Either the patient or their legal outbound telemarketing representative has been informed of the risks and benefits of -- and alternatives to -- treatment through a remote evaluation and consents to proceed with the evaluation remotely. PATIENT DATA: Generalized Anxiety Disorder Scale (JET-7) 03/26/2025 04/09/2025 05/06/2025 JET - 7 SCORES Score 8 9 8 (0-4) minimal anxiety, (5-9) mild anxiety, (10-14) moderate anxiety, (15-21) severe anxiety Patient Health Questionnaire (PHQ-9) 03/26/2025 04/09/2025 05/06/2025 PHQ-9 Score 9 9 11 (0-4) minimal depression, (5-9) mild depression, (10-14) moderate depression, (15-19) moderately severe depression, (20-27) severe depression OBJECTIVE: Supportive therapy Mental Status Exam: General/Sensorium: Alert and AND interactive - Appearance: Appears stated age - Eye Contact: Appropriate eye [...] Patient worked on processing through her emotional symptoms. Patient worked on addressing some family dynamic issues that negatively impacted her DIAGNOSIS: PRIMARY: 1: Major depression recurrent moderate Other: None PROVISIONAL: None TREATMENT MODALITIES: Cognitive Behavioral Therapy to self monitoring PROGRESS TO DATE: Rigger Up Progress: Progress Short Term Condition: Progress GOALS/OBJECTIVES/INTERVEN TIONS: Patient to reduce symptoms of depression Patient to improve sleep hygiene Patient to improve self-care Patient to improve conflict resolution skills Patient to improve use of coping mechanisms Approximately 45 minutes were spent with the patient doing therapy. WILLOW Adamson Referring Provider: PERCY VARGAS [[id number]] Allergies As of Date: 05/08/2025 Noted Allergy Reaction CITRIC ACID 11/10/2021 14 - Other: See Comments Comments: Wears down lining of the mouth. Fruit and tomatoes CYMBALTA (DULOXETINE) 06/04/2009 14 - Other: See Comments Comments: Weight gain PENICILLINS 05/04/2009 4 - Hives SHELLFISH DERIVED 10/22/2017 11 - Vomiting Date Reviewed: 12/05/2023 Reviewed by: Davis Jesus RN - Fully Assessed Primary Visit Diagnosis:Depression, major, recurrent, moderate (HCC) [F33.1] Order(s):PROVIDER ORDERED FOLLOW UP [[id number]] Order #: [id number]: 1 PROVIDER ORDERED FOLLOW UP [[id number]] Order #: [id number]: 1 FUTURE PROVIDER ORDERED FOLLOW UP [[id number]] Order #: [id number]: 1 FUTURE Prescriptions as of 05/08/2025 - lamoTRIgine (LAMICTAL) 100 mg tablet Take 1 tablet by mouth two times a day. - topiramate (TOPAMAX) 100 mg tablet Take 1 tablet by mouth two times a day. - potassium chloride ER (KLOR-CON) 20 mEq tablet Take 1 tablet by mouth three times a day. - acetaminophen (TYLENOL) 500 mg tablet Take 2 tablets by mouth every 8 hours. - ascorbic acid, vitamin C, (VITAMIN C) 500 mg tablet Take 1 tablet by mouth two times a day with meals for 25 doses. - aspirin, enteric coated (ASPIRIN, ENTERIC COATED) 81 mg EC tablet Take 1 tablet by mouth two times a day for 28 days. - traMADol (ULTRAM) 50 mg tablet Take 50 mg by mouth two times a day. - buprenorphine (BUTRANS) 5 mcg/hour Apply 1 Patch as directed one time a week. - tiZANidine HCl (ZANAFLEX) 4 mg capsule Take 4 mg by mouth at bedtime as needed. - gabapentin (NEURONTIN) 600 mg tablet Take 600 mg by mouth two times a day. - levothyroxine 88 mcg cap Take 88 mcg by mouth daily before breakfast. - Cetirizine 10 mg cap Take 1 capsule by mouth once daily. - fluticasone (FLONASE) 50 mcg/actuation nasal spray Use 1 [place] in each nostril as needed. - rosuvastatin (CRESTOR) 5 mg tablet Take 10 mg by mouth once daily. - dexAMETHasone 0.1 % ophthalmic solution 3 drops 3 times a day to affected ear as needed vertigo - triamterene-hydroCHLOROth iazide (MAXZIDE-25) 37.5-25 mg per tablet Take 1 tablet (more content not included)... Normal [facility] Internal Medicine Office Vis iton 05-04-2025 Internal Medicine Office Visit [facility] [address] [place] [address] [place] [address] OFFICE VISIT Date of Service: 05/04/25 MR#: [id number] Acct: [id number] Name: BRUNO PATTERSON Rep #: [id number] : 1970 Provider: EL kong Age/Sex: 54/F Location: [facility] Status: Signed Intake Vital Signs 12/01/24 10:49 05/04/25 11:09 Height 5 ft 5 in 5 ft 5 in Weight: 217 lb 223 lb BMI 36.1 37.0 BP 116/82 H 140/90 H Blood Pressure Location Lt brachial Position Sitting Respiration 16 Pulse 88 Pulse Source Monitor Temp 98.4 F Temp Source Temporal Pulse Oximetry (%) 97 Oxygen Delivery Method room air Intake Visit Reasons: Med follow up Chief Complaint: MEDICATION FOLLOW UP Is patient in pain?: No Allergies shellfish derived Allergy (Severe, Verified 05/04/25 11:05) vomitting Penicillins Allergy (Verified 05/04/25 11:05) Hives duloxetine (From Cymbalta) Adverse Reaction (Intermediate, Verified 05/04/25 11:05) Other gluten Adverse Reaction (Intermediate, Verified 05/04/25 11:05) stomach discomfort Medications ???Medication ???Instructions ???Recorded ???Confirmed ???Type ondansetron HCl 4 mg tablet 4 mg PO Q8H PRN NAUSEA 08/17/21 History cetirizine 10 mg tablet (Zyrtec) 10 mg PO DAILY allergy symptoms 05/04/25 History multivitamin (Daily Multi-Vitamin 1 tab PO DAILY PER DR 08/20/23 History tablet) meclizine 25 mg tablet 12.5 mg PO TID PRN dizziness 12/0705/04/25 History potassium chloride 20 mEq 20 meq PO TIDCM 30 days #90 tabs 0 12/18/23 05/04/25 Rx tablet,extended release(part/cryst) acetaminophen 500 mg tablet 1,000 mg PO Q8 PRN 08/20/24 History topiramate 100 mg tablet 100 mg PO BID #60 tabs 10/29/24 Rx venlafaxine 75 mg capsule,extended 150 mg PO DAILY 10/29/24 5 History release 24 hr amiloride 5 mg tablet 5 mg PO DAILY MENERIES #30 tabs 05/04/25 Rx celecoxib 200 mg capsule (Celebrex) 200 mg PO QDAY #30 caps 5 05/04/25 Rx rosuvastatin 10 mg tablet 10 mg PO DAILY PER DR REAGAN #90 tab s 03/12/25 05/04/25 Rx gabapentin 600 mg tablet 600 mg PO BID #60 TABLETS 04/09/25 05/04/25 Rx levothyroxine 88 mcg tablet 88 mcg PO DAILY@0600 #90 tabs 04/0605/04/25 Rx triamterene 37.5 1 cap PO DAILY #90 caps 04/20/25 0 05/04/25 Rx mg-hydrochlorothiazide 25 mg capsule fluticasone propionate 50 2 spray intranasal QDAY PRN 05/04/25 History mcg/actuation nasal allergy symptoms spray,suspension lamotrigine 100 mg tablet 100 mg PO BID PER 05/04/2504/14 History pantoprazole 40 mg tablet,delayed 40 mg PO QDAY #90 tabs 05/04/25 0 05/04/25 Rx release PFSH Medical History Vertigo Acute maxillary sinusitis, unspecified Loss of hearing Wears glasses Depression Anxiety Ambulates with cane Anemia Easy bruising Migraine headache Injury of head and neck Menieres disease Dietary restriction History of ulceration Gastric reflux Former smoker Leg cramps History of pain when walking History of edema Pneumonia Pain Hypokalemia Vitamin deficiency Vision problem Ulcer Osteoarthritis Neuropathy IBS (irritable bowel syndrome) Hearing problem Back problem Arthritis Seasonal allergies Surgical History (Updated 05/04/25 @ 11:08 by Brittani Gregg) Fusion of lumbar spine History of total right hip arthroplasty S/P insertion of spinal cord stimulator H/O total hip arthroplasty Family History Father Alcohol abuse Colon cancer, Onset Age: 69 Diabetes Respiratory disease Melanoma Dementia Sister Alcohol abuse Arthritis Asthma Son Anxiety Mother Arthritis Asthma Heart disease Hypertension Aunt Autoimmune disease lupus Brother Hypertension Heart disease Other Bowel disease Depression High cholesterol Mental disorder Psychiatric care Severe allergic reaction Thyroid disorder Social History adopted: No household members: none number of children: 1 current occupational status: disabled current occupation: Disabled current occupational exposures/hazards: No pets and animals: Yes history of recent travel: No sexually active: No Smoking Status: Current every day smoker tobacco type: e-cigarettes Electronic Cigarette Use: with nicotine alcohol intake: former year quit: 2016? substance use type: does not use caffeine: Yes eating out: 1-3 times/week during the past year weight has: remained stable frequency: 3-4 times per week duration: 15-30 minutes/day octavia/nondenominational: [employer] seatbelt use: always do you feel safe at home: Yes additional social his (more content not included)... [facility] 04-10-2025 [facility] Office Visit (PSYLST ) ----- BRUNO PATTERSON ([id number]) 1970 F Date Time Provider Department 04/10/25 10:00 AM PERCY VARGAS PSYLST During your visit today, we recorded the following information about you: Percy Vargas LISW 04/10/2025 10:57 AM Signed GENERAL PSYCHOLOGY Session #: 95 (session count starts after PSYL NEW EVAL visit) Visit Type:The patient consented to a virtual visit and their location was confirmed. SUBJECTIVE: I have communicated my name and active licensure. The patient's identity and physical location were verified at the time of this visit. Either the patient or their legal outbound telemarketing representative has been informed of the risks and benefits of -- and alternatives to -- treatment through a remote evaluation and consents to proceed with the evaluation remotely. PATIENT DATA: Generalized Anxiety Disorder Scale (JET-7) 03/11/2025 03/26/2025 04/09/2025 JET - 7 SCORES Score 8 8 9 (0-4) minimal anxiety, (5-9) mild anxiety, (10-14) moderate anxiety, (15-21) severe anxiety Patient Health Questionnaire (PHQ-9) 03/11/2025 03/26/2025 04/09/2025 PHQ-9 Score 8 9 9 (0-4) minimal depression, (5-9) mild depression, (10-14) moderate depression, (15-19) moderately severe depression, (20-27) severe depression OBJECTIVE: Supportive therapy Mental Status Exam: General/Sensorium: Alert and AND interactive - Appearance: Appears stated age - Eye Contact: Appropriate eye [...] Patient worked on processing through her emotional symptoms. Patient worked on addressing family related problem. DIAGNOSIS: PRIMARY: 1: Major depression recurrent moderate Other: None PROVISIONAL: None TREATMENT MODALITIES: Cognitive Behavioral Therapy to self monitoring PROGRESS TO DATE: Rigger Up Progress: Progress Short Term Condition: Progress GOALS/OBJECTIVES/INTERVEN TIONS: Patient to reduce symptoms of depression Patient to improve sleep hygiene Patient to improve self-care Patient to improve conflict resolution skills Patient to improve use of coping mechanisms Approximately 45 minutes were spent with the patient doing therapy. WILLOW Adamson Referring Provider: PERCY VARGAS [[id number]] Allergies As of Date: 04/10/2025 Noted Allergy Reaction CITRIC ACID 11/10/2021 14 - Other: See Comments Comments: Wears down lining of the mouth. Fruit and tomatoes CYMBALTA (DULOXETINE) 06/04/2009 14 - Other: See Comments Comments: Weight gain PENICILLINS 05/04/2009 4 - Hives SHELLFISH DERIVED 10/22/2017 11 - Vomiting Date Reviewed: 12/05/2023 Reviewed by: Davis Jesus RN - Fully Assessed Visit Diagnosis:Depression, major, recurrent, moderate (HCC) [F33.1] Order(s):PROVIDER ORDERED FOLLOW UP [[id number]] Order #: [id number]: 1 Prescriptions as of 04/10/2025 - lamoTRIgine (LAMICTAL) 100 mg tablet Take 1 tablet by mouth two times a day. - topiramate (TOPAMAX) 100 mg tablet Take 1 tablet by mouth two times a day. - potassium chloride ER (KLOR-CON) 20 mEq tablet Take 1 tablet by mouth three times a day. - acetaminophen (TYLENOL) 500 mg tablet Take 2 tablets by mouth every 8 hours. - ascorbic acid, vitamin C, (VITAMIN C) 500 mg tablet Take 1 tablet by mouth two times a day with meals for 25 doses. - aspirin, enteric coated (ASPIRIN, ENTERIC COATED) 81 mg EC tablet Take 1 tablet by mouth two times a day for 28 days. - traMADol (ULTRAM) 50 mg tablet Take 50 mg by mouth two times a day. - buprenorphine (BUTRANS) 5 mcg/hour Apply 1 Patch as directed one time a week. - tiZANidine HCl (ZANAFLEX) 4 mg capsule Take 4 mg by mouth at bedtime as needed. - gabapentin (NEURONTIN) 600 mg tablet Take 600 mg by mouth two times a day. - levothyroxine 88 mcg cap Take 88 mcg by mouth daily before breakfast. - Cetirizine 10 mg cap Take 1 capsule by mouth once daily. - fluticasone (FLONASE) 50 mcg/actuation nasal spray Use 1 [place] in each nostril as needed. - rosuvastatin (CRESTOR) 5 mg tablet Take 10 mg by mouth once daily. - dexAMETHasone 0.1 % ophthalmic solution 3 drops 3 times a day to affected ear as needed vertigo - triamterene-hydroCHLOROth iazide (MAXZIDE-25) 37.5-25 mg per tablet Take 1 tablet by mouth once daily. - venlafaxine (EFFEXOR) 37.5 mg tablet Take 75 mg by mouth once daily. - aMILoride (MIDAMOR) 5 mg tablet Take 5 mg by mouth once daily. - ondansetron ora (more content not included)... Normal [facility] CNOVon 03-27-2025 CNOV Office Visit (PSYLST ) ----- YESENIABRUNO A ([id number]) 1970 F Date Time Provider Department 03/27/25 11:00 AM PERCY VARGAS PSYLST During your visit today, we recorded the following information about you: Percy Vargas LISW 03/27/2025 1:40 PM Signed GENERAL PSYCHOLOGY Session #: 94 (session count starts after PSYL NEW EVAL visit) Visit Type:The patient consented to a virtual visit and their location was confirmed. SUBJECTIVE: I have communicated my name and active licensure. The patient's identity and physical location were verified at the time of this visit. Either the patient or their legal outbound telemarketing representative has been informed of the risks and benefits of -- and alternatives to -- treatment through a remote evaluation and consents to proceed with the evaluation remotely. PATIENT DATA: Generalized Anxiety Disorder Scale (JET-7) 03/03/2025 03/11/2025 03/26/2025 JET - 7 SCORES Score 9 8 8 (0-4) minimal anxiety, (5-9) mild anxiety, (10-14) moderate anxiety, (15-21) severe anxiety Patient Health Questionnaire (PHQ-9) 03/03/2025 03/11/2025 03/26/2025 PHQ-9 Score 10 8 9 (0-4) minimal depression, (5-9) mild depression, (10-14) moderate depression, (15-19) moderately severe depression, (20-27) severe depression OBJECTIVE: Supportive therapy Mental Status Exam: General/Sensorium: Alert and AND interactive - Appearance: Appears stated age - Eye Contact: Appropriate eye [...] Patient worked on processing through her emotional symptoms. Patient addressed ways her to 50 level has increased DIAGNOSIS: PRIMARY: 1: Major depression recurrent moderate Other: None PROVISIONAL: None TREATMENT MODALITIES: Cognitive Behavioral Therapy to self monitoring PROGRESS TO DATE: [facility] Progress: Progress Short Term Condition: Progress GOALS/OBJECTIVES/INTERVEN TIONS: Patient to reduce symptoms of depression Patient to improve sleep hygiene Patient to improve self-care Patient to improve conflict resolution skills Patient to improve use of coping mechanisms Approximately 45 minutes were spent with the patient doing therapy. WILLOW Adamson Referring Provider: PERCY VARGAS [[id number]] Allergies As of Date: 03/27/2025 Noted Allergy Reaction CITRIC ACID 11/10/2021 14 - Other: See Comments Comments: Wears down lining of the mouth. Fruit and tomatoes CYMBALTA (DULOXETINE) 06/04/2009 14 - Other: See Comments Comments: Weight gain PENICILLINS 05/04/2009 4 - Hives SHELLFISH DERIVED 10/22/2017 11 - Vomiting Date Reviewed: 12/05/2023 Reviewed by: Davis Jesus RN - Fully Assessed Primary Visit Diagnosis:Depression, major, recurrent, moderate (HCC) [F33.1] Order(s):PROVIDER ORDERED FOLLOW UP [[id number]] Order #: [id number]: 1 PROVIDER ORDERED FOLLOW UP [[id number]] Order #: [id number]: 1 FUTURE PROVIDER ORDERED FOLLOW UP [[id number]] Order #: [id number]: 1 FUTURE Prescriptions as of 03/27/2025 - lamoTRIgine (LAMICTAL) 100 mg tablet Take 1 tablet by mouth two times a day. - topiramate (TOPAMAX) 100 mg tablet Take 1 tablet by mouth two times a day. - potassium chloride ER (KLOR-CON) 20 mEq tablet Take 1 tablet by mouth three times a day. - acetaminophen (TYLENOL) 500 mg tablet Take 2 tablets by mouth every 8 hours. - ascorbic acid, vitamin C, (VITAMIN C) 500 mg tablet Take 1 tablet by mouth two times a day with meals for 25 doses. - aspirin, enteric coated (ASPIRIN, ENTERIC COATED) 81 mg EC tablet Take 1 tablet by mouth two times a day for 28 days. - traMADol (ULTRAM) 50 mg tablet Take 50 mg by mouth two times a day. - buprenorphine (BUTRANS) 5 mcg/hour Apply 1 Patch as directed one time a week. - tiZANidine HCl (ZANAFLEX) 4 mg capsule Take 4 mg by mouth at bedtime as needed. - gabapentin (NEURONTIN) 600 mg tablet Take 600 mg by mouth two times a day. - levothyroxine 88 mcg cap Take 88 mcg by mouth daily before breakfast. - Cetirizine 10 mg cap Take 1 capsule by mouth once daily. - fluticasone (FLONASE) 50 mcg/actuation nasal spray Use 1 [place] in each nostril as needed. - rosuvastatin (CRESTOR) 5 mg tablet Take 10 mg by mouth once daily. - dexAMETHasone 0.1 % ophthalmic solution 3 drops 3 times a day to affected ear as needed vertigo - triamterene-hydroCHLOROth iazide (MAXZIDE-25) 37.5-25 mg per tablet Take 1 tablet by mouth once daily. - venlafa (more content not included)... Normal [facility] CNOVon 03-13-2025 CNOV Office Visit (PSYLST ) ----- BRUNO PATTERSON ([id number]) 1970 F Date Time Provider Department 03/13/25 10:00 AM PERCY VARGAS PSYLST During your visit today, we recorded the following information about you: Percy Vargas LISW 03/13/2025 10:47 AM Signed Patient was a no-show for appointment-no charge Referring Provider: PERCY VARGAS [[id number]] Allergies As of Date: 03/13/2025 Noted Allergy Reaction CITRIC ACID 11/10/2021 14 - Other: See Comments Comments: Wears down lining of the mouth. Fruit and tomatoes CYMBALTA (DULOXETINE) 06/04/2009 14 - Other: See Comments Comments: Weight gain PENICILLINS 05/04/2009 4 - Hives SHELLFISH DERIVED 10/22/2017 11 - Vomiting Date Reviewed: 12/05/2023 Reviewed by: Davis Jesus RN - Fully Assessed Primary Visit Diagnosis:No-show for appointment [Z91.199] Prescriptions as of 03/13/2025 - lamoTRIgine (LAMICTAL) 100 mg tablet Take 1 tablet by mouth two times a day. - topiramate (TOPAMAX) 100 mg tablet Take 1 tablet by mouth two times a day. - potassium chloride ER (KLOR-CON) 20 mEq tablet Take 1 tablet by mouth three times a day. - acetaminophen (TYLENOL) 500 mg tablet Take 2 tablets by mouth every 8 hours. - ascorbic acid, vitamin C, (VITAMIN C) 500 mg tablet Take 1 tablet by mouth two times a day with meals for 25 doses. - aspirin, enteric coated (ASPIRIN, ENTERIC COATED) 81 mg EC tablet Take 1 tablet by mouth two times a day for 28 days. - traMADol (ULTRAM) 50 mg tablet Take 50 mg by mouth two times a day. - buprenorphine (BUTRANS) 5 mcg/hour Apply 1 Patch as directed one time a week. - tiZANidine HCl (ZANAFLEX) 4 mg capsule Take 4 mg by mouth at bedtime as needed. - gabapentin (NEURONTIN) 600 mg tablet Take 600 mg by mouth two times a day. - levothyroxine 88 mcg cap Take 88 mcg by mouth daily before breakfast. - Cetirizine 10 mg cap Take 1 capsule by mouth once daily. - fluticasone (FLONASE) 50 mcg/actuation nasal spray Use 1 [place] in each nostril as needed. - rosuvastatin (CRESTOR) 5 mg tablet Take 10 mg by mouth once daily. - dexAMETHasone 0.1 % ophthalmic solution 3 drops 3 times a day to affected ear as needed vertigo - triamterene-hydroCHLOROth iazide (MAXZIDE-25) 37.5-25 mg per tablet Take 1 tablet by mouth once daily. - venlafaxine (EFFEXOR) 37.5 mg tablet Take 75 mg by mouth once daily. - aMILoride (MIDAMOR) 5 mg tablet Take 5 mg by mouth once daily. - ondansetron orally disintegrating (ZOFRAN ODT) 4 mg disintegrating tablet Take 1 tablet by mouth every 8 hours as needed for Nausea/Vomiting. - meclizine (ANTIVERT) 12.5 mg tab Take 12.5 mg by mouth as needed. - Omeprazole 40 mg capsule Take 40 mg by mouth once daily. - MULTIVITAMIN TAB Take 1 tablet by mouth once daily. Meds Comments as of 08/26/2009: 07/07/2009 Patient stated she takes 6-8 tablets of Ibuprofen a day. 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] 08/27/2009 11/19/2023 Migraine with Vertigo [G43.109] 10/01/2009 Dysfunction of Eustachian Tube [H69.90] 03/11/2010 Meniere's disease of right ear [H81.01] Vestibular migraine [G43.809] Rhinitis [J31.0] 04/21/2013 Sinusitis [J32.9] 04/21/2013 11/19/2023 Otalgia of right ear [H92.01] 04/21/2013 11/19/2023 Non-functioning tympanostomy tube [T85.618A] 04/21/2013 Perforation of right tympanic membrane [H72.91] 07/07/2013 Myalgia and myositis, unspecified [NSW0699] 12/08/2014 11/19/2023 Migraine without aura [G43.009] 12/08/2014 11/19/2023 Migraine with aura [G43.109] 12/08/2014 11/19/2023 Migraine [G43.909] 12/08/2014 Medication overuse headache [G44.40] 12/08/2014 11/19/2023 Recurrent major depression in partial remission*06/23/2015 11/19/2023 Pain disorder with psychological component [F45*09/13/2015 Chronic left-sided low back pain with left-side*01/19/2016 Primary osteoarthritis of left hip [M16.12] 10/22/2017 Essential hypertension [I10] 10/22/2017 Hypothyroidism [E03.9] 10/22/2017 Pre-op examination [Z01.818] 10/23/2017 11/19/2023 Hypokalemia [E87.6] 10/23/2017 S/P total hip arthroplasty [Z96.649] 11/06/2017 11/08/2017 Nicotine use disorder, F17.2 [F17.200] 11/07/2017 Depression, major, recurrent, moderate (HCC) [F*02/08/2021 Climacteric menorrhagia [N92.4] 02/08/2021 Insomnia due to psychological stress [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 Normal [facility] PT D/C Summary (1)on 025 PT D/C Summary (1) [facility] [address] [place] [address] [address] [place] [address] / REHABILITATION SERVICES DISCHARGE SUMMARY MR#: [id number] Acct: [id number] Name: BRUNO PATTERSON Rep #: [id number] : 1970 54 From: Jacinto Kenney DPT Referring Dr.: Dr. Mercy Jin MD Status: REG RCR Insurance: [facility] COMPLETE MEDICAID Discharge Summary D/C summary: It has been my pleasure to treat BRUNO PATTERSON referred by Dr. Mercy Jin MD, with the diagnosis of Back pain for a total of 18 visit(s). Discharge Date: 03/05/25 Please see the following information for a summary of their discharge status. Subjective Subjective: Pt. reports doing much better. Pt. have decreased pain after having a nerve block. Pt. reports having 2/10 pain current. Pt. is typically worse in the AMs. Pt. pleased with progress. Pain R side of lumbar spine: Pain Intensity (Out of 10): 2 Overall Improvement % Improvement: 80 Objective Objective/Function: GAIT: pt. has normal gait pattern. No major issues noted. ROM: Full ROM without issues. MMT: RLE: knee: ext 45.3#, flexion 23.8#, hip: flexion 33.5# LLE: knee: ext 43.8#, flexion 24.9#; hip: flexion 35.6# PT. is overall doing much better. Pt. is to complete all of her exercises on her own at this point in time. Pt. consents. She has met all goals Goals Goal 1:: LTG: pt. to be I with HEP. Goal Progress: Goal Met Goal 2:: STG: Pt. to sleep throughout the night without issues. Goal Progress: Goal Met Goal 3:: LTG: Pt. to have increased core and B hip strength by 10# throughout. Goal 4:: LTG: pt. to reports no radicular symptoms on her RLE. Goal Progress: Goal Met Goal 5:: LTG: Pt. to complete all ADLs without increase in back or leg pain. Goal Progress: Goal Met Plan Plan: Pt. to be DC from PT to HEP D/C Information d/c sentence: If there are questions or concerns regarding this patient's physical therapy, please feel free to call me at [phone]. Thank you for the referral of this patient. Sincerely, Jacinto Esteves Sipos, DPT Balance/Gait/Functional tests Balance/Special Test Scores Oswestry Low Back Score: 12 Improvement % Improvement: 80 03/05/25 1324 CC: Dr. Wandy Valdovinos MD; Dr. Mercy Jin MD CLS Signed [facility] CNOVon 03-04-2025 CNOV Office Visit (PSYLST ) ----- YESENIABRUNO Salamanca ([id number]) 1970 F Date Time Provider Department 03/04/25 11:00 AM PERCY VARGAS During your visit today, we recorded the following information about you: Percy Vargas LISW 03/04/2025 4:12 PM Signed GENERAL PSYCHOLOGY Session #: 93 (session count starts after PSYL NEW EVAL visit) Visit Type:The patient consented to a virtual visit and their location was confirmed. SUBJECTIVE: I have communicated my name and active licensure. The patient's identity and physical location were verified at the time of this visit. Either the patient or their legal outbound telemarketing representative has been informed of the risks and benefits of -- and alternatives to -- treatment through a remote evaluation and consents to proceed with the evaluation remotely. PATIENT DATA: Generalized Anxiety Disorder Scale (JET-7) 01/22/2025 02/05/2025 03/03/2025 JET - 7 SCORES Score 8 9 9 (0-4) minimal anxiety, (5-9) mild anxiety, (10-14) moderate anxiety, (15-21) severe anxiety Patient Health Questionnaire (PHQ-9) 01/22/2025 02/05/2025 03/03/2025 PHQ-9 Score 10 9 10 (0-4) minimal depression, (5-9) mild depression, (10-14) moderate depression, (15-19) moderately severe depression, (20-27) severe depression OBJECTIVE: Supportive therapy Mental Status Exam: General/Sensorium: Alert and AND interactive - Appearance: Appears stated age - Eye Contact: Appropriate eye [...] Patient worked on processing through her emotional symptoms. Patient worked on addressing some family related problems DIAGNOSIS: PRIMARY: 1: Major depression recurrent moderate Other: None PROVISIONAL: None TREATMENT MODALITIES: Cognitive Behavioral Therapy to self monitoring PROGRESS TO DATE: [facility] Progress: Progress Short Term Condition: Progress GOALS/OBJECTIVES/INTERVEN TIONS: Patient to reduce symptoms of depression Patient to improve sleep hygiene Patient to improve self-care Patient to improve conflict resolution skills Patient to improve use of coping mechanisms Approximately 45 minutes were spent with the patient doing therapy. WILLOW Adamson Referring Provider: PERCY VARGAS [[id number]] Allergies As of Date: 03/04/2025 Noted Allergy Reaction CITRIC ACID 11/10/2021 14 - Other: See Comments Comments: Wears down lining of the mouth. Fruit and tomatoes CYMBALTA (DULOXETINE) 06/04/2009 14 - Other: See Comments Comments: Weight gain PENICILLINS 05/04/2009 4 - Hives SHELLFISH DERIVED 10/22/2017 11 - Vomiting Date Reviewed: 12/05/2023 Reviewed by: Davis Jesus RN - Fully Assessed Visit Diagnosis:Depression, major, recurrent, moderate (HCC) [F33.1] Order(s):PROVIDER ORDERED FOLLOW UP [[id number]] Order #: [id number]: 1 PROVIDER ORDERED FOLLOW UP [[id number]] Order #: [id number]: 1 FUTURE Prescriptions as of 03/04/2025 - lamoTRIgine (LAMICTAL) 100 mg tablet Take 1 tablet by mouth two times a day. - topiramate (TOPAMAX) 100 mg tablet Take 1 tablet by mouth two times a day. - potassium chloride ER (KLOR-CON) 20 mEq tablet Take 1 tablet by mouth three times a day. - acetaminophen (TYLENOL) 500 mg tablet Take 2 tablets by mouth every 8 hours. - ascorbic acid, vitamin C, (VITAMIN C) 500 mg tablet Take 1 tablet by mouth two times a day with meals for 25 doses. - aspirin, enteric coated (ASPIRIN, ENTERIC COATED) 81 mg EC tablet Take 1 tablet by mouth two times a day for 28 days. - traMADol (ULTRAM) 50 mg tablet Take 50 mg by mouth two times a day. - buprenorphine (BUTRANS) 5 mcg/hour Apply 1 Patch as directed one time a week. - tiZANidine HCl (ZANAFLEX) 4 mg capsule Take 4 mg by mouth at bedtime as needed. - gabapentin (NEURONTIN) 600 mg tablet Take 600 mg by mouth two times a day. - levothyroxine 88 mcg cap Take 88 mcg by mouth daily before breakfast. - Cetirizine 10 mg cap Take 1 capsule by mouth once daily. - fluticasone (FLONASE) 50 mcg/actuation nasal spray Use 1 [place] in each nostril as needed. - rosuvastatin (CRESTOR) 5 mg tablet Take 10 mg by mouth once daily. - dexAMETHasone 0.1 % ophthalmic solution 3 drops 3 times a day to affected ear as needed vertigo - triamterene-hydroCHLOROth iazide (MAXZIDE-25) 37.5-25 mg per tablet Take 1 tablet by mouth once daily. - venlafaxine (EFFEXOR) 37.5 mg tablet Take 75 mg by mouth once daily. - aMILor (more content not included)... Normal [facility] CNOVon 02-06-2025 CNOV Office Visit (PSYLST ) ----- BRUNO PATTERSON ([id number]) 1970 F Date Time Provider Department 02/06/25 11:00 AM PERCY VARGAS PSYLST During your visit today, we recorded the following information about you: Percy Vargas LISW 02/06/2025 2:30 PM Signed GENERAL PSYCHOLOGY Session #: 92 (session count starts after PSYL NEW EVAL visit) Visit Type:The patient consented to a virtual visit and their location was confirmed. SUBJECTIVE: I have communicated my name and active licensure. The patient's identity and physical location were verified at the time of this visit. Either the patient or their legal outbound telemarketing representative has been informed of the risks and benefits of -- and alternatives to -- treatment through a remote evaluation and consents to proceed with the evaluation remotely. PATIENT DATA: Generalized Anxiety Disorder Scale (JET-7) 01/08/2025 01/22/2025 02/05/2025 JET - 7 SCORES Score 8 8 9 (0-4) minimal anxiety, (5-9) mild anxiety, (10-14) moderate anxiety, (15-21) severe anxiety Patient Health Questionnaire (PHQ-9) 01/08/2025 01/22/2025 02/05/2025 PHQ-9 Score 9 10 9 (0-4) minimal depression, (5-9) mild depression, (10-14) moderate depression, (15-19) moderately severe depression, (20-27) severe depression OBJECTIVE: Supportive therapy Mental Status Exam: General/Sensorium: Alert and AND interactive - Appearance: Appears stated age - Eye Contact: Appropriate eye [...] Patient worked on processing through her emotional symptoms. Patient worked on addressing some family related problems. DIAGNOSIS: PRIMARY: 1: Major depression recurrent moderate Other: None PROVISIONAL: None TREATMENT MODALITIES: Cognitive Behavioral Therapy to self monitoring PROGRESS TO DATE: [facility] Progress: Progress Short Term Condition: Regressed GOALS/OBJECTIVES/INTERVEN TIONS: Patient to reduce symptoms of depression Patient to improve sleep hygiene Patient to improve self-care Patient to improve conflict resolution skills Patient to improve use of coping mechanisms Approximately 45 minutes were spent with the patient doing therapy. WILLOW Adamson Referring Provider: PERCY VARGAS [[id number]] Allergies As of Date: 02/06/2025 Noted Allergy Reaction CITRIC ACID 11/10/2021 14 - Other: See Comments Comments: Wears down lining of the mouth. Fruit and tomatoes CYMBALTA (DULOXETINE) 06/04/2009 14 - Other: See Comments Comments: Weight gain PENICILLINS 05/04/2009 4 - Hives SHELLFISH DERIVED 10/22/2017 11 - Vomiting Date Reviewed: 12/05/2023 Reviewed by: Davis Jesus RN - Fully Assessed Visit Diagnosis:Depression, major, recurrent, moderate (HCC) [F33.1] Order(s):PROVIDER ORDERED FOLLOW UP [[id number]] Order #: [id number]: 1 PROVIDER ORDERED FOLLOW UP [] Order #: [id number]: 1 FUTURE PROVIDER ORDERED FOLLOW UP [] Order #: [id number]: 1 FUTURE PROVIDER ORDERED FOLLOW UP [] Order #: [id number]: 1 FUTURE Prescriptions as of 02/06/2025 - lamoTRIgine (LAMICTAL) 100 mg tablet TAKE 1 TABLET BY MOUTH DAILY - potassium chloride ER (KLOR-CON) 20 mEq tablet Take 1 tablet by mouth three times a day. - acetaminophen (TYLENOL) 500 mg tablet Take 2 tablets by mouth every 8 hours. - ascorbic acid, vitamin C, (VITAMIN C) 500 mg tablet Take 1 tablet by mouth two times a day with meals for 25 doses. - aspirin, enteric coated (ASPIRIN, ENTERIC COATED) 81 mg EC tablet Take 1 tablet by mouth two times a day for 28 days. - traMADol (ULTRAM) 50 mg tablet Take 50 mg by mouth two times a day. - buprenorphine (BUTRANS) 5 mcg/hour Apply 1 Patch as directed one time a week. - tiZANidine HCl (ZANAFLEX) 4 mg capsule Take 4 mg by mouth at bedtime as needed. - topiramate (TOPAMAX) 100 mg tablet Take 100 mg by mouth two times a day. - gabapentin (NEURONTIN) 600 mg tablet Take 600 mg by mouth two times a day. - levothyroxine 88 mcg cap Take 88 mcg by mouth daily before breakfast. - Cetirizine 10 mg cap Take 1 capsule by mouth once daily. - fluticasone (FLONASE) 50 mcg/actuation nasal spray Use 1 [place] in each nostril as needed. - rosuvastatin (CRESTOR) 5 mg tablet Take 10 mg by mouth once daily. - dexAMETHasone 0.1 % ophthalmic solution 3 drops 3 times a day to affected ear as needed vertigo - triamterene-hydroCHLOROth iazide (MAXZIDE-25) 37.5-25 mg (more content not included)... Normal [facility] CNOVon 01-23-2025 CNOV Office Visit (PSYLST ) ----- BRUNO PATTERSON ([id number]) 1970 F Date Time Provider Department 01/23/25 11:00 AM PERCY VAGRAS PSYLST During your visit today, we recorded the following information about you: Percy Vargas LISW 01/23/2025 3:57 PM Signed GENERAL PSYCHOLOGY Session #: 91 (session count starts after PSYL NEW EVAL visit) Visit Type:The patient consented to a virtual visit and their location was confirmed. SUBJECTIVE: I have communicated my name and active licensure. The patient's identity and physical location were verified at the time of this visit. Either the patient or their legal outbound telemarketing representative has been informed of the risks and benefits of -- and alternatives to -- treatment through a remote evaluation and consents to proceed with the evaluation remotely. PATIENT DATA: Generalized Anxiety Disorder Scale (JET-7) 12/25/2024 01/08/2025 01/22/2025 JET - 7 SCORES Score 8 8 8 (0-4) minimal anxiety, (5-9) mild anxiety, (10-14) moderate anxiety, (15-21) severe anxiety Patient Health Questionnaire (PHQ-9) 12/25/2024 01/08/2025 01/22/2025 PHQ-9 Score 10 9 10 (0-4) minimal depression, (5-9) mild depression, (10-14) moderate depression, (15-19) moderately severe depression, (20-27) severe depression OBJECTIVE: Supportive therapy Mental Status Exam: General/Sensorium: Alert and AND interactive - Appearance: Appears stated age - Eye Contact: Appropriate eye [...] her emotional symptoms along with addressing some current life stressors DIAGNOSIS: PRIMARY: 1: Major depression recurrent moderate Other: None PROVISIONAL: None TREATMENT MODALITIES: Cognitive Behavioral Therapy to self monitoring PROGRESS TO DATE: [facility] Progress: Progress Short Term Condition: Progress GOALS/OBJECTIVES/INTERVEN TIONS: Patient to reduce symptoms of depression Patient to improve sleep hygiene Patient to improve self-care Patient to improve conflict resolution skills Patient to improve use of coping mechanisms Approximately 45 minutes were spent with the patient doing therapy. WILLOW Adamson Referring Provider: PERCY VARGAS [[id number]] Allergies As of Date: 01/23/2025 Noted Allergy Reaction CITRIC ACID 11/10/2021 14 - Other: See Comments Comments: Wears down lining of the mouth. Fruit and tomatoes CYMBALTA (DULOXETINE) 06/04/2009 14 - Other: See Comments Comments: Weight gain PENICILLINS 05/04/2009 4 - Hives SHELLFISH DERIVED 10/22/2017 11 - Vomiting Date Reviewed: 12/05/2023 Reviewed by: Davis Jesus RN - Fully Assessed Visit Diagnosis:Depression, major, recurrent, moderate (HCC) [F33.1] Order(s):PROVIDER ORDERED FOLLOW UP [[id number]] Order #: [id number]: 1 Prescriptions as of 01/23/2025 - lamoTRIgine (LAMICTAL) 100 mg tablet TAKE 1 TABLET BY MOUTH DAILY - potassium chloride ER (KLOR-CON) 20 mEq tablet Take 1 tablet by mouth three times a day. - acetaminophen (TYLENOL) 500 mg tablet Take 2 tablets by mouth every 8 hours. - ascorbic acid, vitamin C, (VITAMIN C) 500 mg tablet Take 1 tablet by mouth two times a day with meals for 25 doses. - aspirin, enteric coated (ASPIRIN, ENTERIC COATED) 81 mg EC tablet Take 1 tablet by mouth two times a day for 28 days. - traMADol (ULTRAM) 50 mg tablet Take 50 mg by mouth two times a day. - buprenorphine (BUTRANS) 5 mcg/hour Apply 1 Patch as directed one time a week. - tiZANidine HCl (ZANAFLEX) 4 mg capsule Take 4 mg by mouth at bedtime as needed. - topiramate (TOPAMAX) 100 mg tablet Take 100 mg by mouth two times a day. - gabapentin (NEURONTIN) 600 mg tablet Take 600 mg by mouth two times a day. - levothyroxine 88 mcg cap Take 88 mcg by mouth daily before breakfast. - Cetirizine 10 mg cap Take 1 capsule by mouth once daily. - fluticasone (FLONASE) 50 mcg/actuation nasal spray Use 1 [place] in each nostril as needed. - rosuvastatin (CRESTOR) 5 mg tablet Take 10 mg by mouth once daily. - dexAMETHasone 0.1 % ophthalmic solution 3 drops 3 times a day to affected ear as needed vertigo - triamterene-hydroCHLOROth iazide (MAXZIDE-25) 37.5-25 mg per tablet Take 1 tablet by mouth once daily. - venlafaxine (EFFEXOR) 37.5 mg tablet Take 75 mg by mouth once daily. - aMILoride (MIDAMOR) 5 mg tablet Take 5 mg by mouth once daily. - ondansetron orally disintegrati (more content not included)... Normal [facility] CNOVon 01-09-2025 CNOV Office Visit (PSYLST ) ----- BRUNO PATTERSON ([id number]) 1970 F Date Time Provider Department 01/09/25 10:00 AM PERCY VARGAS PSYLST During your visit today, we recorded the following information about you: Percy Vargas LISW 01/09/2025 12:49 PM Signed GENERAL PSYCHOLOGY Session #: 90 (session count starts after PSYL NEW EVAL visit) Visit Type:The patient consented to a virtual visit and their location was confirmed. SUBJECTIVE: I have communicated my name and active licensure. The patient's identity and physical location were verified at the time of this visit. Either the patient or their legal outbound telemarketing representative has been informed of the risks and benefits of -- and alternatives to -- treatment through a remote evaluation and consents to proceed with the evaluation remotely. PATIENT DATA: Generalized Anxiety Disorder Scale (JET-7) 11/27/2024 12/25/2024 01/08/2025 JET - 7 SCORES Score 8 8 8 (0-4) minimal anxiety, (5-9) mild anxiety, (10-14) moderate anxiety, (15-21) severe anxiety Patient Health Questionnaire (PHQ-9) 11/27/2024 12/25/2024 01/08/2025 PHQ-9 Score 10 10 9 (0-4) minimal depression, (5-9) mild depression, (10-14) moderate depression, (15-19) moderately severe depression, (20-27) severe depression OBJECTIVE: Supportive therapy Mental Status Exam: General/Sensorium: Alert and AND interactive - Appearance: Appears stated age - Eye Contact: Appropriate eye [...] Patient worked on processing through her emotional symptoms. Patient worked on addressing family related problems. DIAGNOSIS: PRIMARY: 1: Major depression recurrent moderate Other: None PROVISIONAL: None TREATMENT MODALITIES: Cognitive Behavioral Therapy to self monitoring PROGRESS TO DATE: [facility] Progress: Progress Short Term Condition: Progress GOALS/OBJECTIVES/INTERVEN TIONS: Patient to reduce symptoms of depression Patient to improve sleep hygiene Patient to improve self-care Patient to improve conflict resolution skills Patient to improve use of coping mechanisms Approximately 45 minutes were spent with the patient doing therapy. WILLOW Adamsno Referring Provider: PERCY VARGAS [[id number]] Allergies As of Date: 01/09/2025 Noted Allergy Reaction CITRIC ACID 11/10/2021 14 - Other: See Comments Comments: Wears down lining of the mouth. Fruit and tomatoes CYMBALTA (DULOXETINE) 06/04/2009 14 - Other: See Comments Comments: Weight gain PENICILLINS 05/04/2009 4 - Hives SHELLFISH DERIVED 10/22/2017 11 - Vomiting Date Reviewed: 12/05/2023 Reviewed by: Davis Jesus RN - Fully Assessed Visit Diagnosis:Depression, major, recurrent, moderate (HCC) [F33.1] Order(s):PROVIDER ORDERED FOLLOW UP [[id number]] Order #: [id number]: 1 Prescriptions as of 01/09/2025 - lamoTRIgine (LAMICTAL) 100 mg tablet TAKE 1 TABLET BY MOUTH DAILY - potassium chloride ER (KLOR-CON) 20 mEq tablet Take 1 tablet by mouth three times a day. - acetaminophen (TYLENOL) 500 mg tablet Take 2 tablets by mouth every 8 hours. - ascorbic acid, vitamin C, (VITAMIN C) 500 mg tablet Take 1 tablet by mouth two times a day with meals for 25 doses. - aspirin, enteric coated (ASPIRIN, ENTERIC COATED) 81 mg EC tablet Take 1 tablet by mouth two times a day for 28 days. - traMADol (ULTRAM) 50 mg tablet Take 50 mg by mouth two times a day. - buprenorphine (BUTRANS) 5 mcg/hour Apply 1 Patch as directed one time a week. - tiZANidine HCl (ZANAFLEX) 4 mg capsule Take 4 mg by mouth at bedtime as needed. - topiramate (TOPAMAX) 100 mg tablet Take 100 mg by mouth two times a day. - gabapentin (NEURONTIN) 600 mg tablet Take 600 mg by mouth two times a day. - levothyroxine 88 mcg cap Take 88 mcg by mouth daily before breakfast. - Cetirizine 10 mg cap Take 1 capsule by mouth once daily. - fluticasone (FLONASE) 50 mcg/actuation nasal spray Use 1 [place] in each nostril as needed. - rosuvastatin (CRESTOR) 5 mg tablet Take 10 mg by mouth once daily. - dexAMETHasone 0.1 % ophthalmic solution 3 drops 3 times a day to affected ear as needed vertigo - triamterene-hydroCHLOROth iazide (MAXZIDE-25) 37.5-25 mg per tablet Take 1 tablet by mouth once daily. - venlafaxine (EFFEXOR) 37.5 mg tablet Take 75 mg by mouth once daily. - aMILoride (MIDAMOR) 5 mg tablet Take 5 mg by mouth once daily. - ondansetron orally disin (more content not included)... Normal [facility] Inital Evaluation (1) - PTon 12-31-2024 Inital Evaluation (1) - PT [facility] [address] [place] [address] / REHABILITATION SERVICES INITIAL EVALUATION MR#: [id number] Acct: [id number] Name: BRUNO PATTERSON Rep #: [id number] : 1970 54 From: Jacinto Kenney DPT Referring Dr.: Dr. Mercy Jin MD Status: REG RCR Insurance: [facility] COMPLETE MEDICAID Patient's Visit Information Visit Information Visit Information: BRUNO PATTERSON is a 54 year old F referred to Physical Therapy by Dr. Mercy Jin MD with a diagnosis of Back pain. Date of Evaluation: 12/31/24 Physical Therapist: Jacinto Kenney DPT Visit Plan Frequency: 2x /Week Duration: 4 Weeks Plan: In aquatic setting: Core strengthening, B hip strengthening, Pt. does some stretching for lumbar spine at home. I added sciatic nerve glide to HEP (review with her) Subjective Subjective: Pt. is here today for her initial evaluation with diagnosis of back pain. Pt. has a history of B hip replacements (R hip on November 2024). Lumbar fusion L1-L5 on Aug 2023. Pt. is still having some issues with the R side of her spine with prolonged sitting, standing, basically anything for a long period of time. Pt. did recently go to vacation and was painful on the ride down. Pt. does have some pain in the R leg at times, to her knee. This is mostly with prolonged sitting. Tingling in her legs with prolonged standing. Pt. is hopeful to reduce symptoms in order to get back to all household and recreational activities. Pt. does have a spinal stimulator as well. Pt. is to have injections in 1 month. Pt. reports mornings are tough. Pain R side of lumbar spine: Pain Intensity (Out of 10): 0 Pain Intensity Range: 0 and 7 Objective Objective: POSTURE: Pt. has decent posture in stance. No major lateral shift noted. Normal pelvis positioning PALPATION: Slight pain with spring testing throughout lumbar spine, no radicular symptoms noted. NEURO: Pt. has normal DTR and normal sensation ROM: LUMBAR SPINE; flexion min loss tightness noted, ext min loss tightness, SB min loss bilat increase NW to L side, rotation min loss rotation bilat mild increase NW. Pt. slight nerve irritation with R sciatic nerve glide. Pt. has great B hip ROM. MMT: RLE: knee: ext 43.5#, flexion 22.1# increase in glute symptoms, abd 13.9# LLE: knee: ext 44#, flexion 28.1#, and 18.9#, Core strength: poor. GAIT: Pt. has fairly normal gait pattern, no AD. Normal arm swing noted. Balance/Special Test Scores Oswestry Low Back Score: 20 Goals Goal 1:: LTG: pt. to be I with HEP. Goal Time Frame: 4-6 Weeks Goal 2:: STG: Pt. to sleep throughout the night without issues. Goal Time Frame: 2-4 Weeks Goal 3:: LTG: Pt. to have increased core and B hip strength by 10# throughout. Goal Time Frame: 4-6 Weeks Goal 4:: LTG: pt. to reports no radicular symptoms on her RLE. Goal Time Frame: 4-6 Weeks Goal 5:: LTG: Pt. to complete all ADLs without increase in back or leg pain. Goal Time Frame: 4-6 Weeks Rehabilitation Potential Physical Therapy Diagnosis: Pt. has signs and symptoms consistent with back pain. Pt. has a history of B hip replacement and L1-L5 fusion. Pt. now having some R sided symptoms that occasionally radiate into her R leg. Pt. has some marked hip and core weakness and would benefit from PT to address the above limitations. Rehabilitation Potential: Excellent Anticipated Interventions Patient/Client Instruction: Educate patient on: Condition, Plan of Care, Risk Factors and Benefits of Fitness Program For the Purpose of:: To improve decision making, To facilitate caregiver knowledge, To improve self management, To prevent re-injury, To improve ability to perform tasks related to life management and To improve tolerance to ADL's Therapeutic Exercise to Include: Strength training, Power training, Postural training, Flexibilty training, In an aquatic setting, Active ROM and Dynamic Lumbar Stabilization For the Purpose of:: To decrease pain, To increase ROM, To improve nutrient delivery to tissue, To increase oxygenation perfusion, To improve muscle performance and motor function, To improve ability to perform ADL's and To increase tolerance to activity/condition/positi on Text: Thank you for the opportunity to evaluate your patient. For Medicare and Medicare HMO plans, please review the plan of care and approve it. It will need to be FAXED BACK to us at [phone] for Medicare purposes. For Medicare only, by signing this I certify the plan of care. Please let me know if there are questions or concerns regarding this plan of care. Physician Signature: Date: _ 12/31/24 1357 CC: Dr. Wandy Valdovinos MD; Dr. Mercy Jin MD CLS Signed [facility] CNOVon 12-26-2024 CNOV Office Visit (PSYLST ) ----- BRUNO PATTERSON ([id number]) 1970 F Date Time Provider Department 12/26/24 10:00 AM PERCY VARGAS PSYLST During your visit today, we recorded the following information about you: Percy Vargas LISW 12/26/2024 2:34 PM Signed GENERAL PSYCHOLOGY Session #: 89 (session count starts after PSYL NEW EVAL visit) Visit Type:The patient consented to a virtual visit and their location was confirmed. SUBJECTIVE: I have communicated my name and active licensure. The patient's identity and physical location were verified at the time of this visit. Either the patient or their legal outbound telemarketing representative has been informed of the risks and benefits of -- and alternatives to -- treatment through a remote evaluation and consents to proceed with the evaluation remotely. PATIENT DATA: Generalized Anxiety Disorder Scale (JET-7) 11/07/2024 11/27/2024 12/25/2024 JET - 7 SCORES Score 8 8 8 (0-4) minimal anxiety, (5-9) mild anxiety, (10-14) moderate anxiety, (15-21) severe anxiety Patient Health Questionnaire (PHQ-9) 11/07/2024 11/27/2024 12/25/2024 PHQ-9 Score 9 10 10 (0-4) minimal depression, (5-9) mild depression, (10-14) moderate depression, (15-19) moderately severe depression, (20-27) severe depression OBJECTIVE: Supportive therapy Mental Status Exam: General/Sensorium: Alert and AND interactive - Appearance: Appears stated age - Eye Contact: Appropriate eye [...] Patient worked on processing through her emotional symptoms. Patient addressed her recent trip with her son. Patient addressed her difficulty with Mother's Day since her mom's . DIAGNOSIS: PRIMARY: 1: Major depression recurrent moderate Other: None PROVISIONAL: None TREATMENT MODALITIES: Cognitive Behavioral Therapy to self monitoring PROGRESS TO DATE: Rigger Up Progress: Progress Short Term Condition: Progress GOALS/OBJECTIVES/INTERVEN TIONS: Patient to reduce symptoms of depression Patient to improve sleep hygiene Patient to improve self-care Patient to improve conflict resolution skills Patient to improve use of coping mechanisms Approximately 45 minutes were spent with the patient doing therapy. WILLOW Adamson Referring Provider: PERCY VARGAS [[id number]] Allergies As of Date: 12/26/2024 Noted Allergy Reaction CITRIC ACID 11/10/2021 14 - Other: See Comments Comments: Wears down lining of the mouth. Fruit and tomatoes CYMBALTA (DULOXETINE) 06/04/2009 14 - Other: See Comments Comments: Weight gain PENICILLINS 05/04/2009 4 - Hives SHELLFISH DERIVED 10/22/2017 11 - Vomiting Date Reviewed: 12/05/2023 Reviewed by: Davis Jesus RN - Fully Assessed Visit Diagnosis:Depression, major, recurrent, moderate (HCC) [F33.1] Order(s):PROVIDER ORDERED FOLLOW UP [[id number]] Order #: [id number]: 1 PROVIDER ORDERED FOLLOW UP [[id number]] Order #: [id number]: 1 FUTURE PROVIDER ORDERED FOLLOW UP [[id number]] Order #: [id number]: 1 FUTURE Prescriptions as of 12/26/2024 - lamoTRIgine (LAMICTAL) 100 mg tablet TAKE 1 TABLET BY MOUTH DAILY - potassium chloride ER (KLOR-CON) 20 mEq tablet Take 1 tablet by mouth three times a day. - acetaminophen (TYLENOL) 500 mg tablet Take 2 tablets by mouth every 8 hours. - ascorbic acid, vitamin C, (VITAMIN C) 500 mg tablet Take 1 tablet by mouth two times a day with meals for 25 doses. - aspirin, enteric coated (ASPIRIN, ENTERIC COATED) 81 mg EC tablet Take 1 tablet by mouth two times a day for 28 days. - traMADol (ULTRAM) 50 mg tablet Take 50 mg by mouth two times a day. - buprenorphine (BUTRANS) 5 mcg/hour Apply 1 Patch as directed one time a week. - tiZANidine HCl (ZANAFLEX) 4 mg capsule Take 4 mg by mouth at bedtime as needed. - topiramate (TOPAMAX) 100 mg tablet Take 100 mg by mouth two times a day. - gabapentin (NEURONTIN) 600 mg tablet Take 600 mg by mouth two times a day. - levothyroxine 88 mcg cap Take 88 mcg by mouth daily before breakfast. - Cetirizine 10 mg cap Take 1 capsule by mouth once daily. - fluticasone (FLONASE) 50 mcg/actuation nasal spray Use 1 [place] in each nostril as needed. - rosuvastatin (CRESTOR) 5 mg tablet Take 10 mg by mouth once daily. - dexAMETHasone 0.1 % ophthalmic solution 3 drops 3 times a day to affected ear as needed vertigo - triamterene-hydroCHLOROth iazide (MAXZIDE-25) 37.5-25 mg pe (more content not included)... Normal [facility] SCRN MAMM (CAD)W/JACQUES BILATo n 12-11-2024 SCRN MAMM (CAD)W/JACQUES BILAT [facility] [address] [place] [address] SCRN MAMM (CAD)W/JACQUES BILAT MR#: [id number] Acct: [id number] Name: BRUNO PATTERSON Rep #: [id number] : 1970 F 54 From: Linnette Wesley MD PCP: Dr. Wandy Valdovinos MD Status: DEP CLI Study: SCRN MAMM (CAD)W/JACQUES BILAT Date of Exam: 09/06 Exam# [id number] Ordering Dr: Michelle Estrada EXAM: SCRN MAMM (CAD)W/JACQUES BILAT 12/11/2024 CLINICAL HISTORY: F, Age 54 y/o , SCREENING MAMMOGRAM TECHNIQUE: Bilateral screening digital breast tomosynthesis with 2D and 3D images. Computer aided detection. COMPARISON: Prior exam(s) dated 10/09/2022, 03/21/2021, 03/19/2020. FINDINGS: TISSUE DENSITY: The breast tissue is almost entirely fatty. Bilateral Breast Mammographic Findings: No significant masses, calcifications or other abnormalities are identified. BI/SCRN MAMM (CAD)W/JACQUES BILAT IMPRESSION: Right Breast: BIRADS 1 NEGATIVE. Left Breast: BIRADS 1 NEGATIVE. OVERALL FINAL ASSESSMENT: BIRADS 1 NEGATIVE. RECOMMENDATION: Routine annual follow-up in 1 Year A letter with findings and recommendations will be mailed to the patient. Reading Location: [facility] CC: Dr. Wandy Valdovinos MD; Dr. Michelle Estrada MD Associate Engineer: Signed Normal [facility] PAP IG HPV APTIMA 16/18,45on 12-05-2024 ADEQ Comment Normal . [facility] Comment on above: Order Comment: Speci men Comment: [id number] Specimen Comment: No. of containers..01 ThinPrep Vial Result Comment: Sati sfactory for evaluation. Endocervical and/or squamous metaplastic cells (endocervical component) are present. Performed By: #### L 7400.0280 #### [facility] [address] [place], [place], [address] COMM . Normal . [facility] Comment on above: Order Comment: Speci men Comment: [id number] Specimen Comment: No. of containers..01 ThinPrep Vial Performed By: #### L 7400.0280 #### [facility] [address] [place], [address] COMMENT Comment Normal . [facility] Comment on above: Order Comment: Speci men Comment: [id number] Specimen Comment: No. of containers..01 ThinPrep Vial Result Comment: This liquid based ThinPrep(R) pap test was screened with the use of an image guided system. Performed By: #### L 7400.0280 #### [facility] [address] [place], [address] DIAG Comment Normal . [facility] Comment on above: Order Comment: Speci men Comment: [id number] Specimen Comment: No. of containers..01 ThinPrep Vial Result Comment: NEGA TIVE FOR INTRAEPITHELIAL LESION OR MALIGNANCY. Performed By: #### L 7400.0280 #### [facility] [address] [place], [address] HPV APTIMA, HR Negative Normal Negative [facility] Comment on above: Order Comment: Speci men Comment: [id number] Specimen Comment: No. of containers..01 ThinPrep Vial Result Comment: This nucleic acid amplification test detects fourteen high- risk HPV types (16,18,31,33,35,39,45,51,52,56,58,59,66,68) without differentiation. Performed By: #### L 7400.0280 #### [facility] [address] [place], [address] HPV Yisel Rfx Comment Normal . [facility] Comment on above: Order Comment: Speci men Comment: [id number] Specimen Comment: No. of containers..01 ThinPrep Vial Result Comment: Crit ersilvino not met, HPV Genotype not performed. Performed at: - [facility] [id number] Hand Mica Plate Layer: Nayeli Mcclure MD, Phone: [phone] Performed at: = - [facility] [address] [id number] Hand Mica Plate Layer: Nayeli Mcclure MD, Phone: [phone] Performed By: #### L 7400.0280 #### [facility] [address] [place], [address] PAPSMR Comment Normal . [facility] Comment on above: Order Comment: Speci men Comment: [id number] Specimen Comment: No. of containers..01 ThinPrep Vial Result Comment: The Pap smear is a screening test designed to aid in the detection of premalignant and malignant conditions of the uterine cervix. It is not a diagnostic procedure and should not be used as the sole means of detecting cervical cancer. Both false-positive and false-negative reports do occur. Performed By: #### L 7400.0280 #### [facility] [address] [place], [place], [id number] PERFORM Comment Normal . [facility] Comment on above: Order Comment: Speci men Comment: [id number] Specimen Comment: No. of containers..01 ThinPrep Vial Result Comment: Dania Hernandez Pharmacy Intern (ASCP) Performed By: #### L 7400.0280 #### [facility] [address] [place], [place], [id number] Cervical or vaginal specimen microscopic examination by liquid based cytology (reportOrdered By: Michelle Estrada on 12-01-2024 Cytology report Cyto stain.thin prep Doc (Cvx/Vag) Comment . [facility] Comment on above: Criteria not met, HP V Genotype not performed.Performed at: [address] [id number] Director: Nayeli Mcclure MD, Phone: [phone] at: =[address] [id number] Director: Nayeli Mcclure MD, Phone: [phone] Cervical or vagninal specime n microscopic examination by cytology stain (reported asOrdered By: Michelle Estrada on 12-01-2024 Cytology report Cyto stain Doc (Cvx/Vag) Comment . [facility] Comment on above: The Pap smear is a s creening test designed to aid in thedetection of premalignant and malignant conditions of theuterine cervix. It is not a diagnostic procedure andshould not be used as the sole means of detecting cervicalcancer. Both false-positive and false-negative reports dooccur. Pharmacy Intern Cyto stain Nom (C vx/Vag) [ID]Ordered By: Michelle Estrada on 12-01-2024 Pap Smear Performed By Comment . [facility] Comment on above: Wendi Hernandez Cyto logist (ASCP) Cytology report Cyto stain D oc (Cvx/Vag)Ordered By: Michelle Estrada on 12-01-2024 Thin Prep Pap Smear Comment . [facility] Comment on above: The Pap smear is a s creening test designed to aid in thedetection of premalignant and malignant conditions of theuterine cervix. It is not a diagnostic procedure andshould not be used as the sole means of detecting cervicalcancer. Both false-positive and false-negative reports dooccur. Cytology report Cyto stain.t hin prep Doc (Cvx/Vag)Ordered By: Michelle Estrada on 12-01-2024 HPV Genotype Special Info Comment . [facility] Comment on above: Criteria not met, HP V Genotype not performed.Performed at: [address] [id number] Director: Nayeli Mcclure MD, Phone: [phone] at: =[address] [id number] Director: Nayeli Mcclure MD, Phone: [phone] Detection in cervical specim en of any of human papilloma virus (HPV) 16, 18, 31, 33,Ordered By: Michelle Estrada on 12-01-2024 HPV 16+18+31+33+35+39+45+5 1+52+56+58+59+66+68 DNA Probe+sig amp Ql (Cvx) Negative Negative [facility] Comment on above: This nucleic acid am plification test detects fourteen high- risk HPV types (16,18,31,33,35,39,45,51,52,56,58,59,66,68)without differentiation. HPV 16+18+31+33+35+39+45+51+ 52+56+58+59+66+68 DNA Probe+sig amp Ql (Cvx)Ordered By: Michelle Estrada on 12-01-2024 Human Papillomavirus High Risk Negative Negative [facility] Comment on above: This nucleic acid am plification test detects fourteen high- risk HPV types (16,18,31,33,35,39,45,51,52,56,58,59,66,68)without differentiation. Image-guided ThinPrep PapOrd ered By: Michelle Estrada on 12-01-2024 Pap Smear Note Comment . [facility] Comment on above: This liquid based Th inPrep(R) pap test was screened withthe use of an image guided system. Image-guided liquid-based Pa pOrdered By: Michelle Estrada on 12-01-2024 Pap Smear Diagnosis Comment . [facility] Comment on above: NEGATIVE FOR INTRAEP ITHELIAL LESION OR MALIGNANCY. Laboratory - CytologyOrdered By: Michelle Estrada on 12-01-2024 Pharmacy Intern Cyto stain Nom (Cvx/Vag) [ID] Comment . [facility] Comment on above: Wendi Hernandez Cyto blake (ASCP) Laboratory - Miscellaneous t estsOrdered By: Michelle Estrada on 12-01-2024 Service comment (Unsp spec) [Interp] . . [facility] No Panel InformationOrdered By: Michelle Estrada on 12-01-2024 Pap Smear Specimen Adequacy Comment . [facility] Comment on above: Satisfactory for claire luation. Endocervical and/or squamous metaplasticcells (endocervical component) are present. Ambulatory Analyst Office Visit Reporton 12-01-2024 Ambulatory Analyst Office Visit Report [facility] [address], [address] [place] [address] OFFICE VISIT Date of Service: 12/01/24 MR#: [id number] Acct: [id number] Name: BRUNO PATTERSON Rep #: [id number] : 1970 Provider: Dr. 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: No Is patient in pain?: Yes (chronic pain, 4 disc fusion and 2 artificial hips) Allergies shellfish derived Allergy (Severe, Verified 12/01/24 10:53) vomitting Penicillins Allergy (Verified 12/01/24 10:53) Hives duloxetine (From Cymbalta) Adverse Reaction (Intermediate, Verified 12/01/24 10:53) Other gluten Adverse Reaction (Intermediate, Verified 12/01/24 10:53) stomach discomfort Medications ???Medication ???Instructions ???Recorded ???Confirmed ???Type amiloride 5 mg tablet 1 tab PO DAILY MENERIES 03/27/20 0 12/01/24 History ondansetron HCl 4 mg tablet 4 mg PO Q8H PRN NAUSEA 08/17/21 History rosuvastatin 10 mg tablet 10 mg PO DAILY PER DR REAGAN 01/24/ 3 12/01/24 History cetirizine 10 mg tablet (Zyrtec) 10 mg PO DAILY allergy symptoms 12/01/24 History lamotrigine 100 mg tablet 100 mg PO DAILY PER 03/08/23 History multivitamin (Daily Multi-Vitamin 1 tab PO DAILY PER DR 08/20/23 History tablet) ascorbic acid (vitamin C) 500 mg 500 mg PO BIDCM supplement 4 12/01/24 History tablet (Vitamin C) meclizine 25 mg tablet 12.5 mg PO TID PRN dizziness 12/0712/01/24 History gabapentin 600 mg tablet 600 mg PO BID #0 tabs 12/18/23 Rx levothyroxine 88 mcg tablet 88 mcg PO DAILY@0600 #0 tabs 12/1712/01/24 Rx potassium chloride 20 mEq 20 meq PO TIDCM 30 days #90 tabs 0 12/18/23 12/01/24 Rx tablet,extended release(part/cryst) triamterene 37.5 1 cap PO DAILY #0 caps 12/18/23 Rx mg-hydrochlorothiazide 25 mg capsule acetaminophen 500 mg tablet 1,000 mg PO Q8 PRN 08/20/24 History tizanidine 2 mg tablet 4 mg PO TID PRN 08/20/24 12/01/24 History magnesium 200 mg tablet 400 mg PO QDAY 10/10/24 12/01/24 H istory omeprazole 40 mg capsule,delayed 40 mg PO DAILY PER #30 caps 12/01/24 Rx release topiramate 100 mg tablet 100 mg PO BID #60 tabs 10/29/24 Rx venlafaxine 75 mg capsule,extended 150 mg PO DAILY 10/29/24 5 History release 24 hr celecoxib 200 mg capsule (Celebrex) 200 mg PO QDAY #30 caps 5 12/01/24 Rx Is last menstrual period known: Yes Last Menstrual Period: 11/03/24 Post menopausal: No Patient : No : No PFSH Medical History Vertigo Acute maxillary sinusitis, unspecified Loss of hearing Wears glasses Depression Anxiety Ambulates with cane Anemia Easy bruising Migraine headache Injury of head and neck Menieres disease Dietary restriction History of ulceration Gastric reflux Former smoker Leg cramps History of pain when walking History of edema Pneumonia Pain Hypokalemia Vitamin deficiency Vision problem Ulcer Osteoarthritis Neuropathy IBS (irritable bowel syndrome) Hearing problem Back problem Arthritis Seasonal allergies Surgical History Fusion of lumbar spine History of total right hip arthroplasty S/P insertion of spinal cord stimulator H/O total hip arthroplasty Family History Father Alcohol abuse Colon cancer, Onset Age: 69 Diabetes Respiratory disease Melanoma Dementia Sister Alcohol abuse Arthritis Asthma Son Anxiety Mother Arthritis Asthma Heart disease Hypertension Aunt Autoimmune disease lupus Brother Hypertension Heart disease Other Bowel disease Depression High cholesterol Mental disorder Psychiatric care Severe allergic reaction Thyroid disorder Social History adopted: No household members: none number of children: 1 current occupational status: disabled current occupation: Disabled current occupational exposures/hazards: No pets and animals: Yes history of recent travel: No sexually active: No Smoking Status: Current every day smoker tobacco type: e-cigarettes Electronic Cigarette Use: with nicotine alcohol intake: former y (more content not included)... Normal [facility] Service comment (Unsp spec) [Interp]Ordered By: Michelle Estrada on 12-01-2024 Pap Smear Comment (3) . . [facility] CNOVon 11-28-2024 CNOV Office Visit (PSYLST ) ----- BRUNO PATTERSON ([id number]) 1970 F Date Time Provider Department 11/28/24 10:00 AM PERCY VARGAS PSYLST During your visit today, we recorded the following information about you: Percy Vargas LISW 11/28/2024 2:39 PM Signed GENERAL PSYCHOLOGY Session #: 88 (session count starts after PSYL NEW EVAL visit) Visit Type:The patient consented to a virtual visit and their location was confirmed. SUBJECTIVE: I have communicated my name and active licensure. The patient's identity and physical location were verified at the time of this visit. Either the patient or their legal outbound telemarketing representative has been informed of the risks and benefits of -- and alternatives to -- treatment through a remote evaluation and consents to proceed with the evaluation remotely. PATIENT DATA: Generalized Anxiety Disorder Scale (JET-7) 10/23/2024 11/07/2024 11/27/2024 JET - 7 SCORES Score 8 8 8 (0-4) minimal anxiety, (5-9) mild anxiety, (10-14) moderate anxiety, (15-21) severe anxiety Patient Health Questionnaire (PHQ-9) 10/23/2024 11/07/2024 11/27/2024 PHQ-9 Score 8 9 10 (0-4) minimal depression, (5-9) mild depression, (10-14) moderate depression, (15-19) moderately severe depression, (20-27) severe depression OBJECTIVE: Supportive therapy Mental Status Exam: General/Sensorium: Alert and AND interactive - Appearance: Appears stated age - Eye Contact: Appropriate eye [...] Patient worked on processing through her emotional symptoms. Patient worked on addressing some family related problems DIAGNOSIS: PRIMARY: 1: Major depression recurrent moderate Other: None PROVISIONAL: None TREATMENT MODALITIES: Cognitive Behavioral Therapy to self monitoring PROGRESS TO DATE: Rigger Up Progress: Progress Short Term Condition: Progress GOALS/OBJECTIVES/INTERVEN TIONS: Patient to reduce symptoms of depression Patient to improve sleep hygiene Patient to improve self-care Patient to improve conflict resolution skills Patient to improve use of coping mechanisms Approximately 45 minutes were spent with the patient doing therapy. WILLOW Adamson Referring Provider: PERCY VARGAS [[id number]] Allergies As of Date: 11/28/2024 Noted Allergy Reaction CITRIC ACID 11/10/2021 14 - Other: See Comments Comments: Wears down lining of the mouth. Fruit and tomatoes CYMBALTA (DULOXETINE) 06/04/2009 14 - Other: See Comments Comments: Weight gain PENICILLINS 05/04/2009 4 - Hives SHELLFISH DERIVED 10/22/2017 11 - Vomiting Date Reviewed: 12/05/2023 Reviewed by: Davis Jesus RN - Fully Assessed Visit Diagnosis:Depression, major, recurrent, moderate (HCC) [F33.1] Order(s):PROVIDER ORDERED FOLLOW UP [[id number]] Order #: [id number]: 1 Prescriptions as of 11/28/2024 - lamoTRIgine (LAMICTAL) 100 mg tablet TAKE 1 TABLET BY MOUTH DAILY - potassium chloride ER (KLOR-CON) 20 mEq tablet Take 1 tablet by mouth three times a day. - acetaminophen (TYLENOL) 500 mg tablet Take 2 tablets by mouth every 8 hours. - ascorbic acid, vitamin C, (VITAMIN C) 500 mg tablet Take 1 tablet by mouth two times a day with meals for 25 doses. - aspirin, enteric coated (ASPIRIN, ENTERIC COATED) 81 mg EC tablet Take 1 tablet by mouth two times a day for 28 days. - traMADol (ULTRAM) 50 mg tablet Take 50 mg by mouth two times a day. - buprenorphine (BUTRANS) 5 mcg/hour Apply 1 Patch as directed one time a week. - tiZANidine HCl (ZANAFLEX) 4 mg capsule Take 4 mg by mouth at bedtime as needed. - topiramate (TOPAMAX) 100 mg tablet Take 100 mg by mouth two times a day. - gabapentin (NEURONTIN) 600 mg tablet Take 600 mg by mouth two times a day. - levothyroxine 88 mcg cap Take 88 mcg by mouth daily before breakfast. - Cetirizine 10 mg cap Take 1 capsule by mouth once daily. - fluticasone (FLONASE) 50 mcg/actuation nasal spray Use 1 [place] in each nostril as needed. - rosuvastatin (CRESTOR) 5 mg tablet Take 10 mg by mouth once daily. - dexAMETHasone 0.1 % ophthalmic solution 3 drops 3 times a day to affected ear as needed vertigo - triamterene-hydroCHLOROth iazide (MAXZIDE-25) 37.5-25 mg per tablet Take 1 tablet by mouth once daily. - venlafaxine (EFFEXOR) 37.5 mg tablet Take 75 mg by mouth once daily. - aMILoride (MIDAMOR) 5 mg tablet Take 5 mg by mouth once daily. - ondansetron orally disi (more content not included)... Normal [facility] CNOVon 11-07-2024 CNOV Office Visit (PSYLST ) ----- BRUNO PATTERSON ([id number]) 1970 F Date Time Provider Department 11/07/24 10:00 AM PERCY VARGAS PSYLST During your visit today, we recorded the following information about you: Percy Vargas LISW 11/07/2024 4:16 PM Signed GENERAL PSYCHOLOGY Session #: 87 (session count starts after PSYL NEW EVAL visit) Visit Type:The patient consented to a virtual visit and their location was confirmed. SUBJECTIVE: I have communicated my name and active licensure. The patient's identity and physical location were verified at the time of this visit. Either the patient or their legal outbound telemarketing representative has been informed of the risks and benefits of -- and alternatives to -- treatment through a remote evaluation and consents to proceed with the evaluation remotely. PATIENT DATA: Generalized Anxiety Disorder Scale (JET-7) 10/10/2024 10/23/2024 11/07/2024 JET - 7 SCORES Score 8 8 8 (0-4) minimal anxiety, (5-9) mild anxiety, (10-14) moderate anxiety, (15-21) severe anxiety Patient Health Questionnaire (PHQ-9) 10/10/2024 10/23/2024 11/07/2024 PHQ-9 Score 9 8 9 (0-4) minimal depression, (5-9) mild depression, (10-14) moderate depression, (15-19) moderately severe depression, (20-27) severe depression OBJECTIVE: Supportive therapy Mental Status Exam: General/Sensorium: Alert and AND interactive - Appearance: Appears stated age - Eye Contact: Appropriate eye [...] Patient worked on processing through her emotional symptoms. Patient worked on addressing her increase in activity level along with interactions with her family DIAGNOSIS: PRIMARY: 1: Major depression recurrent moderate Other: None PROVISIONAL: None TREATMENT MODALITIES: Cognitive Behavioral Therapy to self monitoring PROGRESS TO DATE: Rigger Up Progress: Progress Short Term Condition: Progress GOALS/OBJECTIVES/INTERVEN TIONS: Patient to reduce symptoms of depression Patient to improve sleep hygiene Patient to improve self-care Patient to improve conflict resolution skills Patient to improve use of coping mechanisms Approximately 45 minutes were spent with the patient doing therapy. WILLOW Adamson Referring Provider: PERCY VARGAS [[id number]] Allergies As of Date: 11/07/2024 Noted Allergy Reaction CITRIC ACID 11/10/2021 14 - Other: See Comments Comments: Wears down lining of the mouth. Fruit and tomatoes CYMBALTA (DULOXETINE) 06/04/2009 14 - Other: See Comments Comments: Weight gain PENICILLINS 05/04/2009 4 - Hives SHELLFISH DERIVED 10/22/2017 11 - Vomiting Date Reviewed: 12/05/2023 Reviewed by: Davis Jesus RN - Fully Assessed Visit Diagnosis:Depression, major, recurrent, moderate (HCC) [F33.1] Order(s):PROVIDER ORDERED FOLLOW UP [[id number]] Order #: [id number]: 1 PROVIDER ORDERED FOLLOW UP [[id number]] Order #: [id number]: 1 FUTURE PROVIDER ORDERED FOLLOW UP [[id number]] Order #: [id number]: 1 FUTURE Prescriptions as of 11/07/2024 - lamoTRIgine (LAMICTAL) 100 mg tablet TAKE 1 TABLET BY MOUTH DAILY - potassium chloride ER (KLOR-CON) 20 mEq tablet Take 1 tablet by mouth three times a day. - acetaminophen (TYLENOL) 500 mg tablet Take 2 tablets by mouth every 8 hours. - ascorbic acid, vitamin C, (VITAMIN C) 500 mg tablet Take 1 tablet by mouth two times a day with meals for 25 doses. - aspirin, enteric coated (ASPIRIN, ENTERIC COATED) 81 mg EC tablet Take 1 tablet by mouth two times a day for 28 days. - traMADol (ULTRAM) 50 mg tablet Take 50 mg by mouth two times a day. - buprenorphine (BUTRANS) 5 mcg/hour Apply 1 Patch as directed one time a week. - tiZANidine HCl (ZANAFLEX) 4 mg capsule Take 4 mg by mouth at bedtime as needed. - topiramate (TOPAMAX) 100 mg tablet Take 100 mg by mouth two times a day. - gabapentin (NEURONTIN) 600 mg tablet Take 600 mg by mouth two times a day. - levothyroxine 88 mcg cap Take 88 mcg by mouth daily before breakfast. - Cetirizine 10 mg cap Take 1 capsule by mouth once daily. - fluticasone (FLONASE) 50 mcg/actuation nasal spray Use 1 [place] in each nostril as needed. - rosuvastatin (CRESTOR) 5 mg tablet Take 10 mg by mouth once daily. - dexAMETHasone 0.1 % ophthalmic solution 3 drops 3 times a day to affected ear as needed vertigo - triamterene-hydroCHLOROth iazide (MAXZIDE-25) 37.5-25 mg per tablet Take 1 tablet by mo (more content not included)... Normal [facility] 11-03-2024 [facility] Telephone ([facility]) ----- BRUNO PATTERSON ([id number]) 1970 F Date Time Provider Department 11/03/24 DILIA ANGULO During your visit today, we recorded the following information about you: Eunice Calvo MA 11/03/2024 8:44 AM Signed Received medical record request for last 2 office notes and labs to be sent to [facility] at [phone], forms have been faxed and medical request will be sent to scanning. Allergies As of Date: 11/03/2024 Noted Allergy Reaction CITRIC ACID 11/10/2021 14 - Other: See Comments Comments: Wears down lining of the mouth. Fruit and tomatoes CYMBALTA (DULOXETINE) 06/04/2009 14 - Other: See Comments Comments: Weight gain PENICILLINS 05/04/2009 4 - Hives SHELLFISH DERIVED 10/22/2017 11 - Vomiting Date Reviewed: 12/05/2023 Reviewed by: Davis Jesus RN - Fully Assessed Reason for Visit: Release Of Medical Records [2017] Prescriptions as of 11/10/2024 - lamoTRIgine (LAMICTAL) 100 mg tablet TAKE 1 TABLET BY MOUTH DAILY - potassium chloride ER (KLOR-CON) 20 mEq tablet Take 1 tablet by mouth three times a day. - acetaminophen (TYLENOL) 500 mg tablet Take 2 tablets by mouth every 8 hours. - ascorbic acid, vitamin C, (VITAMIN C) 500 mg tablet Take 1 tablet by mouth two times a day with meals for 25 doses. - aspirin, enteric coated (ASPIRIN, ENTERIC COATED) 81 mg EC tablet Take 1 tablet by mouth two times a day for 28 days. - traMADol (ULTRAM) 50 mg tablet Take 50 mg by mouth two times a day. - buprenorphine (BUTRANS) 5 mcg/hour Apply 1 Patch as directed one time a week. - tiZANidine HCl (ZANAFLEX) 4 mg capsule Take 4 mg by mouth at bedtime as needed. - topiramate (TOPAMAX) 100 mg tablet Take 100 mg by mouth two times a day. - gabapentin (NEURONTIN) 600 mg tablet Take 600 mg by mouth two times a day. - levothyroxine 88 mcg cap Take 88 mcg by mouth daily before breakfast. - Cetirizine 10 mg cap Take 1 capsule by mouth once daily. - fluticasone (FLONASE) 50 mcg/actuation nasal spray Use 1 [place] in each nostril as needed. - rosuvastatin (CRESTOR) 5 mg tablet Take 10 mg by mouth once daily. - dexAMETHasone 0.1 % ophthalmic solution 3 drops 3 times a day to affected ear as needed vertigo - triamterene-hydroCHLOROth iazide (MAXZIDE-25) 37.5-25 mg per tablet Take 1 tablet by mouth once daily. - venlafaxine (EFFEXOR) 37.5 mg tablet Take 75 mg by mouth once daily. - aMILoride (MIDAMOR) 5 mg tablet Take 5 mg by mouth once daily. - ondansetron orally disintegrating (ZOFRAN ODT) 4 mg disintegrating tablet Take 1 tablet by mouth every 8 hours as needed for Nausea/Vomiting. - meclizine (ANTIVERT) 12.5 mg tab Take 12.5 mg by mouth as needed. - Omeprazole 40 mg capsule Take 40 mg by mouth once daily. - MULTIVITAMIN TAB Take 1 tablet by mouth once daily. Meds Comments as of 08/26/2009: 07/07/2009 Patient stated she takes 6-8 tablets of Ibuprofen a day. 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] 08/27/2009 11/19/2023 Migraine with Vertigo [G43.109] 10/01/2009 Dysfunction of Eustachian Tube [H69.90] 03/11/2010 Meniere's disease of right ear [H81.01] Vestibular migraine [G43.809] Rhinitis [J31.0] 04/21/2013 Sinusitis [J32.9] 04/21/2013 11/19/2023 Otalgia of right ear [H92.01] 04/21/2013 11/19/2023 Non-functioning tympanostomy tube [T85.618A] 04/21/2013 Perforation of right tympanic membrane [H72.91] 07/07/2013 Myalgia and myositis, unspecified [ZVI8793] 12/08/2014 11/19/2023 Migraine without aura [G43.009] 12/08/2014 11/19/2023 Migraine with aura [G43.109] 12/08/2014 11/19/2023 Migraine [G43.909] 12/08/2014 Medication overuse headache [G44.40] 12/08/2014 11/19/2023 Recurrent major depression in partial remission*06/23/2015 11/19/2023 Pain disorder with psychological component [F45*09/13/2015 Chronic left-sided low back pain with left-side*01/19/2016 Primary osteoarthritis of left hip [M16.12] 10/22/2017 Essential hypertension [I10] 10/22/2017 Hypothyroidism [E03.9] 10/22/2017 Pre-op examination [Z01.818] 10/23/2017 11/19/2023 Hypokalemia [E87.6] 10/23/2017 S/P total hip arthroplasty [Z96.649] 11/06/2017 11/08/2017 Nicotine use disorder, F17.2 [F17.200] 11/07/2017 Depression, major, recurrent, moderate (HCC) [F*02/08/2021 Climacteric menorrhagia [N92.4] 02/08/2021 Insomnia due to psychological stress [F51.02] 02/08/2021 Vitamin D deficiency [E55.9] 02/08/2021 IBS (irritable bowel syndrome) [K58.9] GERD (gastroesophageal reflux disease) [K21.9] HLD (hyperlipidemia) [E78.5] Anemia [D64.9] 11/19/2023 Marijuana use [F12.90] 11/19/2023 Obese [E66.9] Primary osteoarthritis of right hip [M16.11] 12/03/2023 12/07/2023 History of total hip arthroplasty, right [Z96.6*12/03 (more content not included)... Normal [facility] Internal Medicine Office Vis maisha 10-28-2024 Internal Medicine Office Visit [facility] [address] [place] [address] OFFICE VISIT Date of Service: 10/29/24 MR#: [id number] Acct: [id number] Name: BRUNO PATTERSON Rep #: [id number] : 1970 Provider: Dr. Wandy antony MD Age/Sex: 54/F Location: [facility] Status: Signed Intake Vital Signs 12/12/23 13:36 10/29/24 13:07 Height 5 ft 5 in 5 ft 5 in Weight: 218 lb BMI 36.2 BP 142/82 H Blood Pressure Location Lt brachial Position Sitting Respiration 18 Pulse 102 H Pulse Source Monitor Temp 98.0 F Temp Source Temporal Pulse Oximetry (%) 96 Oxygen Delivery Method room air Intake Visit Reasons: EST NEW PT - HEART AND ORTHO PT Chief Complaint: EST NEW PT- HEART AND ORTHO PT Is patient in pain?: Yes (7 lower back ) Allergies shellfish derived Allergy (Severe, Verified 10/29/24 13:08) vomitting Penicillins Allergy (Verified 10/29/24 13:08) Hives citric acid Adverse Reaction (Severe, Verified 10/29/24 13:08) wears dowm linning of mouth duloxetine (From Cymbalta) Adverse Reaction (Intermediate, Verified 10/29/24 13:08) Other gluten Adverse Reaction (Intermediate, Verified 10/29/24 13:08) stomach discomfort Medications ???Medication ???Instructions ???Recorded ???Confirmed ???Type amiloride 5 mg tablet 1 tab PO DAILY MENERIES 03/27/20 0 10/29/24 History ondansetron HCl 4 mg tablet 4 mg PO Q8H PRN NAUSEA 08/17/21 History rosuvastatin 10 mg tablet 10 mg PO DAILY PER DR REAGAN 3 10/29/24 History cetirizine 10 mg tablet (Zyrtec) 10 mg PO DAILY allergy symptoms 10/29/24 History lamotrigine 100 mg tablet 100 mg PO DAILY PER 03/08/23 History multivitamin (Daily Multi-Vitamin 1 tab PO DAILY PER DR 08/20/23 History tablet) ascorbic acid (vitamin C) 500 mg 500 mg PO BIDCM supplement 4 10/29/24 History tablet (Vitamin C) meclizine 25 mg tablet 12.5 mg PO TID PRN dizziness 12/0710/29/24 History gabapentin 600 mg tablet 600 mg PO BID #0 tabs 12/18/23 Rx levothyroxine 88 mcg tablet 88 mcg PO DAILY@0600 #0 tabs 12/1710/29/24 Rx potassium chloride 20 mEq 20 meq PO TIDCM 30 days #90 tabs 0 12/18/23 10/29/24 Rx tablet,extended release(part/cryst) triamterene 37.5 1 cap PO DAILY #0 caps 12/18/23 Rx mg-hydrochlorothiazide 25 mg capsule acetaminophen 500 mg tablet 1,000 mg PO Q8 PRN 08/20/24 History tizanidine 2 mg tablet 4 mg PO TID PRN 08/20/24 10/29/24 History celecoxib 200 mg capsule (Celebrex) 200 mg PO QDAY #30 caps 5 10/29/24 Rx magnesium 200 mg tablet 400 mg PO QDAY 10/10/24 10/29/24 H istory omeprazole 40 mg capsule,delayed 40 mg PO DAILY PER DR #30 caps 10/29/24 Rx release topiramate 100 mg tablet 100 mg PO BID #60 tabs 10/29/24 Rx venlafaxine 75 mg capsule,extended 150 mg PO DAILY 10/29/24 5 History release 24 hr Have you fallen in the past year?: Yes (x1) [facility] Medical History Vertigo Acute maxillary sinusitis, unspecified Loss of hearing Wears glasses Depression Anxiety Ambulates with cane Anemia Easy bruising Migraine headache Injury of head and neck Menieres disease Dietary restriction History of ulceration Gastric reflux Former smoker Leg cramps History of pain when walking History of edema Pneumonia Pain Hypokalemia Vitamin deficiency Vision problem Ulcer Osteoarthritis Neuropathy IBS (irritable bowel syndrome) Hearing problem Back problem Arthritis Seasonal allergies Surgical History (Updated 10/29/24 @ 13:[address] Wandy Valdovinos MD) Fusion of lumbar spine History of total right hip arthroplasty S/P insertion of spinal cord stimulator H/O total hip arthroplasty Family History (Updated 10/29/24 @ 13:[address] Wandy Valdovinos MD) Father Alcohol abuse Colon cancer, Onset Age: 69 Diabetes Respiratory disease Melanoma Dementia Sister Alcohol abuse Arthritis Asthma Son Anxiety Mother Arthritis Asthma Heart disease Hypertension Aunt Autoimmune disease lupus Brother Hypertension Heart disease Other Bowel disease Depression High cholesterol Mental disorder Psychiatric care Severe allergic reaction Thyroid disorder Social History (Updated 10/29/24 @ 13:[address] 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 [facility] ----- BRUNO PATTERSON ([id number]) 1970 F Date Time Provider Department 10/24/24 10:00 AM PERCY VARGAS PSYLST During your visit today, we recorded the following information about you: Percy Vargas LISW 10/24/2024 1:38 PM Signed GENERAL PSYCHOLOGY Session #: 86 (session count starts after PSYL NEW EVAL visit) Visit Type:The patient consented to a virtual visit and their location was confirmed. SUBJECTIVE: I have communicated my name and active licensure. The patient's identity and physical location were verified at the time of this visit. Either the patient or their legal outbound telemarketing representative has been informed of the risks and benefits of -- and alternatives to -- treatment through a remote evaluation and consents to proceed with the evaluation remotely. PATIENT DATA: Generalized Anxiety Disorder Scale (JET-7) 09/25/2024 10/10/2024 10/23/2024 JET - 7 SCORES Score 8 8 8 (0-4) minimal anxiety, (5-9) mild anxiety, (10-14) moderate anxiety, (15-21) severe anxiety Patient Health Questionnaire (PHQ-9) 09/25/2024 10/10/2024 10/23/2024 PHQ-9 Score 12 9 8 (0-4) minimal depression, (5-9) mild depression, (10-14) moderate depression, (15-19) moderately severe depression, (20-27) severe depression OBJECTIVE: Cognitive behavioral therapy Mental Status Exam: General/Sensorium: Alert and AND interactive - Appearance: Appears stated age - Eye Contact: Appropriate eye [...] Patient worked on processing through her emotional symptoms. Patient worked on addressing family related situations. DIAGNOSIS: PRIMARY: 1: Major depression recurrent moderate Other: None PROVISIONAL: None TREATMENT MODALITIES: Cognitive Behavioral Therapy to self monitoring PROGRESS TO DATE: [facility] Progress: Progress Short Term Condition: Progress GOALS/OBJECTIVES/INTERVEN TIONS: Patient to reduce symptoms of depression Patient to improve sleep hygiene Patient to improve self-care Patient to improve conflict resolution skills Patient to improve use of coping mechanisms Approximately 45 minutes were spent with the patient doing therapy. WILLOW Adamson Referring Provider: PERCY VARGAS [[id number]] Allergies As of Date: 10/24/2024 Noted Allergy Reaction CITRIC ACID 11/10/2021 14 - Other: See Comments Comments: Wears down lining of the mouth. Fruit and tomatoes CYMBALTA (DULOXETINE) 06/04/2009 14 - Other: See Comments Comments: Weight gain PENICILLINS 05/04/2009 4 - Hives SHELLFISH DERIVED 10/22/2017 11 - Vomiting Date Reviewed: 12/05/2023 Reviewed by: Davis Jesus RN - Fully Assessed Visit Diagnosis:Depression, major, recurrent, moderate (HCC) [F33.1] Order(s):PROVIDER ORDERED FOLLOW UP [[id number]] Order #: [id number]: 1 Prescriptions as of 10/24/2024 - lamoTRIgine (LAMICTAL) 100 mg tablet TAKE 1 TABLET BY MOUTH DAILY - potassium chloride ER (KLOR-CON) 20 mEq tablet Take 1 tablet by mouth three times a day. - acetaminophen (TYLENOL) 500 mg tablet Take 2 tablets by mouth every 8 hours. - ascorbic acid, vitamin C, (VITAMIN C) 500 mg tablet Take 1 tablet by mouth two times a day with meals for 25 doses. - aspirin, enteric coated (ASPIRIN, ENTERIC COATED) 81 mg EC tablet Take 1 tablet by mouth two times a day for 28 days. - traMADol (ULTRAM) 50 mg tablet Take 50 mg by mouth two times a day. - buprenorphine (BUTRANS) 5 mcg/hour Apply 1 Patch as directed one time a week. - tiZANidine HCl (ZANAFLEX) 4 mg capsule Take 4 mg by mouth at bedtime as needed. - topiramate (TOPAMAX) 100 mg tablet Take 100 mg by mouth two times a day. - gabapentin (NEURONTIN) 600 mg tablet Take 600 mg by mouth two times a day. - levothyroxine 88 mcg cap Take 88 mcg by mouth daily before breakfast. - Cetirizine 10 mg cap Take 1 capsule by mouth once daily. - fluticasone (FLONASE) 50 mcg/actuation nasal spray Use 1 [place] in each nostril as needed. - rosuvastatin (CRESTOR) 5 mg tablet Take 10 mg by mouth once daily. - dexAMETHasone 0.1 % ophthalmic solution 3 drops 3 times a day to affected ear as needed vertigo - triamterene-hydroCHLOROth iazide (MAXZIDE-25) 37.5-25 mg per tablet Take 1 tablet by mouth once daily. - venlafaxine (EFFEXOR) 37.5 mg tablet Take 75 mg by mouth once daily. - aMILoride (MIDAMOR) 5 mg tablet Take 5 mg by mouth once daily. - ondansetron ora (more content not included)... Normal [facility] Bone density reportOrdered B y: Osmar Garber on 10-15-2024 Study report Skeletal system DXA [facility] [address] [place], [place] [id number] Dexa Bone Density/Append Skel MR#: [id number] Acct: [id number] Name: BRUNO PATTERSON Rep #: [id number] : 1970 F 54 From: Lonnie Garber MD PCP: Dr. Wandy Valdovinos MD Status: REG CLI Study:Dexa Bone Density/Append Skel Date of E xam: 10/15/24 Exam# [id number] Ordering Dr: TALON DILL PROCEDURE: DEXA BONE DENSITY/APPEND SKEL REASON FOR EXAM: F, age 54 y/o . TECHNIQUE: DEXA scan of bilateral distal forearms COMPARISON: None. FINDINGS: T-SCORES: Left forearm: 0.678 g per cm2 (T-score -0.3); Right forearm: 0.675 g per cm2 (T-score -0.3); The T-scores are also available for review on the [facility] PACS or by accessing the [facility] electronic medical record. BD/Dexa Bone Density/Append Skel IMPRESSION: No evidence of osteopenia or osteoporosis. Reading Location: [address] CC: SIMRAN DILL; Dr. Wandy Valdovinos MD ~ Associate Engineer: Signed [facility] Dexa Bone Density/Append Ske jeremie 10-15-2024 Dexa Bone Density/Append Skel [facility] [address] [place] [address] Dexa Bone Density/Append Skel MR#: [id number] Acct: [id number] Name: BRUNO PATTERSON Rep #: [id number] : 1970 F 54 From: Osmar Dickey PCP: Dr. Wandy Valdovinos MD Status: REG CLI Study: Dexa Bone Density/Append Skel Date of Exam: Exam# [id number] Ordering Dr: SIMRAN DILL PROCEDURE: DEXA BONE DENSITY/APPEND SKEL REASON FOR EXAM: F, age 54 y/o . TECHNIQUE: DEXA scan of bilateral distal forearms COMPARISON: None. FINDINGS: T-SCORES: Left forearm: 0.678 g per cm2 (T-score -0.3); Right forearm: 0.675 g per cm2 (T-score -0.3); The T-scores are also available for review on the [facility] PACS or by accessing the [facility] electronic medical record. BD/Dexa Bone Density/Append Skel IMPRESSION: No evidence of osteopenia or osteoporosis. Reading Location: [id number] CC: SIMRAN DILL; Dr. Wandy Valdovinos MD Associate Engineer: Signed [facility] CNOVon 10-10-2024 CNOV Office Visit (PSYLST ) ----- BRUNO PATTERSON ([id number]) 1970 F Date Time Provider Department 10/10/24 10:00 AM PERCY VARGAS PSYLST During your visit today, we recorded the following information about you: Percy Vargas LISW 10/10/2024 3:45 PM Signed GENERAL PSYCHOLOGY Session #: 85 (session count starts after PSYL NEW EVAL visit) Visit Type:The patient consented to a virtual visit and their location was confirmed. SUBJECTIVE: I have communicated my name and active licensure. The patient's identity and physical location were verified at the time of this visit. Either the patient or their legal outbound telemarketing representative has been informed of the risks and benefits of -- and alternatives to -- treatment through a remote evaluation and consents to proceed with the evaluation remotely. PATIENT DATA: Generalized Anxiety Disorder Scale (JET-7) 09/04/2024 09/25/2024 10/10/2024 JET - 7 SCORES Score 8 8 8 (0-4) minimal anxiety, (5-9) mild anxiety, (10-14) moderate anxiety, (15-21) severe anxiety Patient Health Questionnaire (PHQ-9) 09/04/2024 09/25/2024 10/10/2024 PHQ-9 Score 11 12 9 (0-4) minimal depression, (5-9) mild depression, (10-14) moderate depression, (15-19) moderately severe depression, (20-27) severe depression OBJECTIVE: Cognitive behavioral therapy Mental Status Exam: General/Sensorium: Alert and AND interactive - Appearance: Appears stated age - Eye Contact: Appropriate eye [...] Patient worked on processing through her emotional symptoms. Patient reported some improvement in her mood since last session DIAGNOSIS: PRIMARY: 1: Major depression recurrent moderate Other: None PROVISIONAL: None TREATMENT MODALITIES: Cognitive Behavioral Therapy to self monitoring PROGRESS TO DATE: [facility] Progress: Progress Short Term Condition: Progress GOALS/OBJECTIVES/INTERVEN TIONS: Patient to reduce symptoms of depression Patient to improve sleep hygiene Patient to improve self-care Patient to improve conflict resolution skills Patient to improve use of coping mechanisms Approximately 45 minutes were spent with the patient doing therapy. ZACHARY Adamson-Satnam Referring Provider: PERCY VARGAS [[id number]] Allergies As of Date: 10/10/2024 Noted Allergy Reaction CITRIC ACID 11/10/2021 14 - Other: See Comments Comments: Wears down lining of the mouth. Fruit and tomatoes CYMBALTA (DULOXETINE) 06/04/2009 14 - Other: See Comments Comments: Weight gain PENICILLINS 05/04/2009 4 - Hives SHELLFISH DERIVED 10/22/2017 11 - Vomiting Date Reviewed: 12/05/2023 Reviewed by: Davis Jesus RN - Fully Assessed Visit Diagnosis:Depression, major, recurrent, moderate (HCC) [F33.1] Order(s):PROVIDER ORDERED FOLLOW UP [[id number]] Order #: [id number]: 1 PROVIDER ORDERED FOLLOW UP [[id number]] Order #: [id number]: 1 FUTURE PROVIDER ORDERED FOLLOW UP [[id number]] Order #: [id number]: 1 FUTURE Prescriptions as of 10/10/2024 - lamoTRIgine (LAMICTAL) 100 mg tablet TAKE 1 TABLET BY MOUTH DAILY - potassium chloride ER (KLOR-CON) 20 mEq tablet Take 1 tablet by mouth three times a day. - acetaminophen (TYLENOL) 500 mg tablet Take 2 tablets by mouth every 8 hours. - ascorbic acid, vitamin C, (VITAMIN C) 500 mg tablet Take 1 tablet by mouth two times a day with meals for 25 doses. - aspirin, enteric coated (ASPIRIN, ENTERIC COATED) 81 mg EC tablet Take 1 tablet by mouth two times a day for 28 days. - traMADol (ULTRAM) 50 mg tablet Take 50 mg by mouth two times a day. - buprenorphine (BUTRANS) 5 mcg/hour Apply 1 Patch as directed one time a week. - tiZANidine HCl (ZANAFLEX) 4 mg capsule Take 4 mg by mouth at bedtime as needed. - topiramate (TOPAMAX) 100 mg tablet Take 100 mg by mouth two times a day. - gabapentin (NEURONTIN) 600 mg tablet Take 600 mg by mouth two times a day. - levothyroxine 88 mcg cap Take 88 mcg by mouth daily before breakfast. - Cetirizine 10 mg cap Take 1 capsule by mouth once daily. - fluticasone (FLONASE) 50 mcg/actuation nasal spray Use 1 [place] in each nostril as needed. - rosuvastatin (CRESTOR) 5 mg tablet Take 10 mg by mouth once daily. - dexAMETHasone 0.1 % ophthalmic solution 3 drops 3 times a day to affected ear as needed vertigo - triamterene-hydroCHLOROth iazide (MAXZIDE-25) 37.5-25 mg per tablet Take 1 tablet by mouth once daily. - venla (more content not included)... Normal [facility] L/S Spine Min 4 Viewson 09-14 8-2024 L/S Spine Min 4 Views [facility] [address] [place] [address] [id number] (132) L/S Spine Min 4 Views MR#: [id number] Acct: [id number] Name: BRUNO PATTERSON Rep #: [id number] : 1970 F 53 From: Laureano Curiel MD PCP: Dr. Wandy Valdovinos MD Status: DEP AMB Study: L/S Spine Min 4 Views Date of Exam: 10/10/24 Exam# [id number] Ordering Dr: Ed Lipscomb MD PROCEDURE: L/S SPINE MIN 4 VIEWS REASON FOR EXAM: Low back pain TECHNIQUE: AP and lateral views of the cervical spine COMPARISON: None. FINDINGS: Normal vertebral heights. No evidence of fracture. Posterior fusion and laminectomy noted from the L2 to S1 levels with inter disc spacers. Moderate discogenic degenerative changes are identified. Normal alignment. No spondylolisthesis. Spinal stimulator leads noted. RAD/L/S Spine Min 4 Views IMPRESSION: Posterior fusion and laminectomy of the lumbar spine with moderate degenerative changes. No evidence of hardware failure. Reading Location: [facility] CC: Dr. Wandy Valdovinos MD; Dr. Ed Lipscomb MD Associate Engineer: Signed Normal [facility] Orthopedic Visit Reporton Orthopedic Visit Report [facility] [address] [place] [address] OFFICE VISIT Date of Service: 10/10/24 MR#: [id number] Acct: [id number] Name: BRUNO PATTERSON Rep #: [id number] : 1970 Provider: Dr. Ed Lipscomb MD Age/Sex: 53/F Location: [facility] Status: Signed Intake Vital Signs 12/12/23 13:36 Height 5 ft 5 in Intake Visit Reasons: LUMBAR SPINE Chief Complaint: 1 year surgical follow up Is patient in pain?: Yes (lumbar spine ) Pain scale (1-10): 4 Allergies shellfish derived Allergy (Severe, Verified 10/10/24 13:40) vomitting Penicillins Allergy (Verified 10/10/24 13:40) Hives citric acid Adverse Reaction (Severe, Verified 10/10/24 13:40) wears dowm linning of mouth duloxetine (From Cymbalta) Adverse Reaction (Intermediate, Verified 10/10/24 13:40) Other gluten Adverse Reaction (Intermediate, Verified 10/10/24 13:40) stomach discomfort Medications ???Medication ???Instructions ???Recorded ???Confirmed ???Type amiloride 5 mg tablet 1 tab PO DAILY MENERIES 03/27/20 0 10/10/24 History omeprazole 40 mg capsule,delayed 40 mg PO DAILY PER 08/17/21 History release ondansetron HCl 4 mg tablet 4 mg PO Q8H PRN NAUSEA 08/17/21 History rosuvastatin 10 mg tablet 10 mg PO DAILY PER DR REAGAN 3 10/10/24 History cetirizine 10 mg tablet (Zyrtec) 10 mg PO DAILY allergy symptoms 10/10/24 History lamotrigine 100 mg tablet 100 mg PO DAILY PER 03/08/23 History multivitamin (Daily Multi-Vitamin 1 tab PO DAILY PER DR 08/20/23 History tablet) ascorbic acid (vitamin C) 500 mg 500 mg PO BIDCM supplement 4 10/10/24 History tablet (Vitamin C) meclizine 25 mg tablet 12.5 mg PO TID PRN dizziness 12/0710/10/24 History gabapentin 600 mg tablet 600 mg PO BID #0 tabs 12/18/23 Rx levothyroxine 88 mcg tablet 88 mcg PO DAILY@0600 #0 tabs 12/1710/10/24 Rx potassium chloride 20 mEq 20 meq PO TIDCM 30 days #90 tabs 0 12/18/23 10/10/24 Rx tablet,extended release(part/cryst) topiramate 100 mg tablet 100 mg PO BID #0 tabs 12/18/23 Rx triamterene 37.5 1 cap PO DAILY #0 caps 12/18/23 Rx mg-hydrochlorothiazide 25 mg capsule venlafaxine 75 mg capsule,extended 75 mg PO DAILY #0 caps 12/18/23 10/10/24 Rx release 24 hr acetaminophen 500 mg tablet 1,000 mg PO Q8 PRN 08/20/24 History tizanidine 2 mg tablet 4 mg PO TID PRN 08/20/24 10/10/24 History celecoxib 200 mg capsule (Celebrex) 200 mg PO QDAY #30 caps 5 10/10/24 Rx magnesium 200 mg tablet 400 mg PO QDAY 10/10/24 10/10/24 H istory PFSH Medical History Vertigo Acute maxillary sinusitis, unspecified Loss of hearing Wears glasses Depression Anxiety Ambulates with cane Anemia Easy bruising Migraine headache Injury of head and neck Menieres disease Dietary restriction History of ulceration Gastric reflux Former smoker Leg cramps History of pain when walking History of edema Pneumonia Pain Hypokalemia Vitamin deficiency Vision problem Ulcer Osteoarthritis Neuropathy IBS (irritable bowel syndrome) Hearing problem Back problem Arthritis Seasonal allergies Surgical History History of total right hip arthroplasty S/P insertion of spinal cord stimulator H/O total hip arthroplasty Family History Father Alcohol abuse Colon cancer Diabetes Respiratory disease Melanoma Dementia Sister Alcohol abuse Arthritis Asthma Son Anxiety Mother Arthritis Asthma Heart disease Hypertension Aunt Autoimmune disease Brother Hypertension Other Bowel disease Depression High cholesterol Mental disorder Psychiatric care Severe allergic reaction Thyroid disorder Social History household members: none Smoking Status: Current every day smoker tobacco type: e-cigarettes alcohol intake: former year quit: 2016 substance use type: does not use frequency: daily HPI LUMBAR SPINE Details: This documentation accurately reflects the service provided and the decisions made by me, Dr. Ed Lipscomb MD 10/10/24 2480. Part of today???s visit was documented by Sheeba Jesus RN, acting as scribe. BRUNO PATTERSON is a 53 year old F here today for one year follow up s/p 360 lumbar fusion DOS 09/03/2023. She no longer has to ambulate with a cane. She states that her pain and life have changed dramatically for the better since surgery. She states she still experiencing right sided low back pain. She does see Dr. Jin still for injections and her last inject (more content not included)... Normal [facility] Echo Completeon 10-02-2024 Echo Complete [facility] [address] [place] [address] Echo Complete 10/02/24 1303 MR#: [id number] Acct: [id number] Name: BRUNO PATTERSON Rep #: [id number] : 1970 53 From: Mario Noel MD Attending Dr: ALEXANDRA Leonard Status: REG CLI Ordering Dr: Cheyenne Keller Date: 10/02/24 Location: CVS Sex: F C Admitted: Reason For Study Reason For Study: ANEURYSM OF AORTA Procedure This was a 2D Doppler, Color Flow transthoracic echocardiogram. Exam performed in department. Left Ventricle Mild concentric left ventricular hypertrophy. Normal LV size. Mild inferior septal hypokinesis. Overall left ventricular systolic ejection fraction estimated at 65%. Stage I diastolic dysfunction. Right Ventricle Normal right ventricle. Atria The left and right atria are normal. Mitral Valve Mild (1+) mitral valve insufficiency. Tricuspid Valve Trivial tricuspid valve insufficiency. Normal pulmonary artery pressure. Aortic Valve Trisinus/trileaflet aortic valve. Pulmonic Valve The pulmonic valve is not well visualized. Great Vessels Mildly dilated aortic root. Pericardium/Pleural No pericardial effusion. MMode/2D Measurements Calculations LVIDd: 4.5 cm IVSd: 1.3 cm LVOT diam: 2.1 cm LVIDs: 2.6 cm LVPWd: 0.91 cm LVOT area: 3.6 cm2 FS: 42.5 % Ao root diam: 3.7 cm LAV(MOD-bp): 26.0 ml LVAd ap4: 29.7 cm2 LA dimension: 3.5 cm LAV(MOD-bp) Indexed: 12.6 ml/m2 LVLd ap4: 8.0 cm LAV(MOD-sp2): 26.4 ml EDV(MOD-sp4): 90.9 ml LAV(MOD-sp4): 24.5 ml EDV(sp4-el): 93.5 ml LVAs ap4: 15.5 cm2 LVLs ap4: 6.4 cm ESV(MOD-sp4): 31.7 ml ESV(sp4-el): 31.8 ml EF(MOD-sp4): 65.1 % EF(sp4-el): 66.0 % SV(MOD-sp4): 59.2 ml SV(sp4-el): 61.7 ml LA A4 area: 11.2 cm2 SI(MOD-sp4): 28.8 ml/m2 LA dimension(2D): 3.2 cm RA A4 area: 10.7 cm2 Time Measurements MV dec time: 0.11 sec Doppler Measurements Calculations MV E max bora: 60.2 cm/sec Lat Peak E' Bora: 15.8 cm/sec Med Peak E' Bora: 11.7 cm/sec MV A max bora: 78.2 cm/sec E/E' lat: 3.8 E/E' med: 5.1 MV E/A: 0.77 Ao V2 max: 156.7 cm/sec LV V1 max: 135.5 cm/sec MV dec slope: 575.6 cm/sec2 Ao max P.8 mmHg LV V1 max P.4 mmHg Ao V2 mean: 112.7 cm/sec LV V1 mean P.9 mmHg Ao mean P.6 mmHg LV V1 mean: 88.7 cm/sec Ao V2 VTI: 29.0 cm LV V1 VTI: 28.5 cm AV (velocity ratio): 0.98 SHAJI(I,D): 3.5 cm2 SHAJI(V,D): 3.1 cm2 SV(LVOT): 102.8 ml PA V2 max: 121.7 cm/sec TR max bora: 239.2 cm/sec PA V2 mean: 85.4 cm/sec TR max P.9 mmHg ECHO/Echo Complete Interpretation Summary Mild concentric left ventricular hypertrophy. Mild inferior septal hypokinesis. Overall left ventricular systolic ejection fraction estimated at 65%. Stage I diastolic dysfunction Mild (1+) mitral valve insufficiency. Mildly dilated aortic root. ___ Ordering Physician: Cheyenne Keller Referring Physician: Cheyenne Keller Performed By: Annelise Ragsdale RCS 10/02/24 1618 Date Mario Noel MD CC: ALEXANDRA Leonard; Dr. Wandy Valdovinos MD Date Dictated: 10/02/24 1303 Date Transcribed: 10/02/24 1618 Associate Engineer: [facility] Absolute neutrophil countOrd ered By: Guillermo Andrewalter on 09-30-2024 Neutrophils (Bld) [#/Vol] 6.5 10*3/uL 2.0-7.7 [facility] Albumin to globulin ratioOrd ered By: Guillermo Andrewalter on 09-30-2024 Albumin/Globulin [Mass ratio] 1.0 {ratio} 0.9-2.4 [facility] Basophil percentageOrdered B y: Guillermo Thaiwalter on 09-30-2024 Basophils/100 WBC (Bld) 0.8 % 0-1 [facility] Bilirubin, totalOrdered By: Guillermo Ge on 09-30-2024 Bilirubin [Mass/Vol] 0.30 mg/dL 0.20-1.00 [facility] Comment on above: For patients on eltr ombopag therapy, use of Dimension [place] TBIL is not recommended. Blood urea nitrogen (BUN)/cr eatinine ratioOrdered By: Guillermo Ge on 09-30-2024 Urea nitrogen/Creatinine [Mass ratio] 18.5 mg/mg 10-20 [facility] CBC W/Diff, Automatedon 09-13 Absolute Lymph 1.66 X10 3/uL Normal 0.83-4.51 [facility] Comment on above: Performed By: #### L 501.9520, L500.4050, L500.4100, L100.0100 #### [facility] [address] [place], [address] Absolute Neut 6.5 X10 3/uL Normal 2.0-7.7 [facility] Comment on above: Performed By: #### L [id number], L500.4050, L500.4100, L100.0100 #### [facility] [address] [place], [address] Basophils/100 WBC (Bld) 0.8 % Normal 0-1 [facility] Comment on above: Performed By: #### L [id number], L500.4050, L500.4100, L100.0100 #### [facility] [address] [place], [address] Eosinophils/100 WBC (Bld) 3.0 % Normal 0-5 [facility] Comment on above: Performed By: #### L [id number], L500.4050, L500.4100, L100.0100 #### [facility] [address] [place], [address] Erythrocyte distribution width (RBC) [Ratio] 15.6 % High 11.6-14.6 [facility] Comment on above: Performed By: #### L [id number], L500.4050, L500.4100, L100.0100 #### [facility] [address], [address] Hematocrit (Bld) [Volume fraction] 42.9 % Normal 37-47 [facility] Comment on above: Performed By: #### L [id number], L500.4050, L500.4100, L100.0100 #### [facility] [address] [place], [address] Hemoglobin (Bld) [Mass/Vol] 13.8 g/dL Normal 12.0-15.0 [facility] Comment on above: Performed By: #### L [id number], L500.4050, L500.4100, L100.0100 #### [facility] [address] [place], [address] IG% 0.900 Normal 0.0-0.9 [facility] Comment on above: Result Comment: IG% - Immature Granulocytes (promyelocytes, myelocytes and metamyelocytes) > 1% indicates that a LEFT SHIFT is Present. Performed By: #### L 501.9520, L500.4050, L500.4100, L100.0100 #### [facility] [address] [place], [address] Lymphocytes/100 WBC (Bld) 18.2 % Low 19-41 [facility] Comment on above: Performed By: #### L [id number], L500.4050, L500.4100, L100.0100 #### [facility] [address] [place], [address] MCH (RBC) [Entitic mass] 29.2 pg Normal 27.0-32.0 [facility] Comment on above: Performed By: #### L [id number], L500.4050, L500.4100, L100.0100 #### [facility] [address] [place], [address] MCHC (RBC) [Mass/Vol] 32.2 g/dL Normal 32-36 [facility] Comment on above: Performed By: #### L [id number], L500.4050, L500.4100, L100.0100 #### [facility] [address] [place], [address] MCV (RBC) [Entitic vol] 90.7 fL Normal 81-99 [facility] Comment on above: Performed By: #### L 501.9520, L500.4050, L500.4100, L100.0100 #### [facility] [address] [place], [address] Monocytes/100 WBC (Bld) 6.4 % Normal 0-10 [facility] Comment on above: Performed By: #### L 501.9520, L500.4050, L500.4100, L100.0100 #### [facility] [address] [place], [address] Neutrophils/100 WBC (Bld) 70.7 % High 47-70 [facility] Comment on above: Performed By: #### L 501.9520, L500.4050, L500.4100, L100.0100 #### [facility] [address] [place], [address] Nucleated RBC (Bld) [#/Vol] 0 10*3/uL Normal 0-5 [facility] Comment on above: Performed By: #### L 501.9520, L500.4050, L500.4100, L100.0100 #### [facility] [address] [place], [address] Platelet mean volume (Bld) [Entitic vol] 9.6 fL Normal 6.2-12.0 [facility] Comment on above: Performed By: #### L 501.9520, L500.4050, L500.4100, L100.0100 #### [facility] [address] [place], [address] Platelets (Bld) [#/Vol] 274 10*3/uL Normal 150-450 [facility] Comment on above: Performed By: #### L 501.9520, L500.4050, L500.4100, L100.0100 #### [facility] [address] [place], [address] RBC (Bld) [#/Vol] 4.73 10*6/uL Normal 4.2-5.4 [facility] Comment on above: Performed By: #### L [id number], L500.4050, L500.4100, L100.0100 #### [facility] [address] [place], [address] RDW SD 51.2 fl High 35.1-43.9 [facility] Comment on above: Performed By: #### L 501.9520, L500.4050, L500.4100, L100.0100 #### [facility] [address] [place], [address] WBC (Bld) [#/Vol] 9.1 10*3/uL Normal 4.4-11.0 [facility] Comment on above: Performed By: #### L [id number], L500.4050, L500.4100, L100.0100 #### [facility] [address] [place], [address] Carbon dioxide measurementOr dered By: Guillermo Ge on 09-30-2024 CO2 [Moles/Vol] 22.0 mmol/L 21.0-32.0 [facility] Chloride measurementOrdered By: Guillermo Ge on 09-30-2024 Chloride [Moles/Vol] 105 mmol/L 98-107 [facility] Comprehensive Metabolic Prof ilon 09-30-2024 Albumin [Mass/Vol] 3.9 g/dL Normal 3.2-5.0 [facility] Comment on above: Performed By: #### L 501.9520, L500.4050, L500.4100, L100.0100 #### [facility] [address] [place], [address] Albumin/Globulin [Mass ratio] 1.0 {ratio} Normal 0.9-2.4 [facility] Comment on above: Performed By: #### L 501.9520, L500.4050, L500.4100, L100.0100 #### [facility] [address] [place], [address] ALK P 91 U/L Normal 45-117 [facility] Comment on above: Performed By: #### L 501.9520, L500.4050, L500.4100, L100.0100 #### [facility] [address], [address] ALT [Catalytic activity/Vol] 45 U/L Normal 13-56 [facility] Comment on above: Performed By: #### L 501.9520, L500.4050, L500.4100, L100.0100 #### [facility] [address] [place], [address] AST [Catalytic activity/Vol] 28 U/L Normal 15-37 [facility] Comment on above: Performed By: #### L 501.9520, L500.4050, L500.4100, L100.0100 #### [facility] [address] [place], [address] Bilirubin [Mass/Vol] 0.30 mg/dL Normal 0.20-1.00 [facility] Comment on above: Result Comment: For patients on eltrombopag therapy, use of Dimension [place] TBIL is not recommended. Performed By: #### L 501.9520, L500.4050, L500.4100, L100.0100 #### [facility] [address] [place], [address] BUN/CRE 18.5 RATIO Normal 10-20 [facility] Comment on above: Performed By: #### L 501.9520, L500.4050, L500.4100, L100.0100 #### [facility] [address] [place], [address] CA,Total 9.4 mg/dL Normal 8.5-10.1 [facility] Comment on above: Performed By: #### L 501.9520, L500.4050, L500.4100, L100.0100 #### [facility] [address] [place], [address] Chloride [Moles/Vol] 105 mmol/L Normal 98-107 [facility] Comment on above: Performed By: #### L 501.9520, L500.4050, L500.4100, L100.0100 #### [facility] [address] [place], [address] CO2 [Moles/Vol] 22.0 mmol/L Normal 21.0-32.0 [facility] Comment on above: Performed By: #### L 501.9520, L500.4050, L500.4100, L100.0100 #### [facility] [address] [place], [address] Creatinine [Mass/Vol] 0.97 mg/dL Normal 0.55-1.02 [facility] Comment on above: Result Comment: The validity of the calculated GFR GFRAA in patients over 70 years has not been determined. Clinical correlation is essential. Performed By: #### L 501.9520, L500.4050, L500.4100, L100.0100 #### [facility] [address] [place], [address] EST GFR - AA 77 mL/min Normal >60 [facility] Comment on above: Result Comment: Afri can [place] GFR Calc Performed By: #### L 501.9520, L500.4050, L500.4100, L100.0100 #### [facility] [address] [place], [address] GAP 8 Normal 5-15 [facility] Comment on above: Performed By: #### L 501.9520, L500.4050, L500.4100, L100.0100 #### [facility] [address] [place], [address] GFR/1.73 sq M.predicted among non-blacks MDRD (S/P/Bld) [Vol rate/Area] 64 mL/min/{1.73_m2} Normal >60 [facility] Comment on above: Result Comment: Non- GFR Calc Performed By: #### L 501.9520, L500.4050, L500.4100, L100.0100 #### [facility] [address] [place], [address] Globulin (S) [Mass/Vol] 4.0 g/dL Normal 2.2-4.2 [facility] Comment on above: Performed By: #### L 501.9520, L500.4050, L500.4100, L100.0100 #### [facility] [address] [place], [address] Glucose [Mass/Vol] 92 mg/dL Normal 74-106 [facility] Comment on above: Performed By: #### L 501.9520, L500.4050, L500.4100, L100.0100 #### [facility] [address] [place], [address] Potassium [Moles/Vol] 4.0 mmol/L Normal 3.5-5.1 [facility] Comment on above: Performed By: #### L 501.9520, L500.4050, L500.4100, L100.0100 #### [facility] [address] [place], [address] Sodium [Moles/Vol] 136 mmol/L Normal 136-145 [facility] Comment on above: Performed By: #### L 501.9520, L500.4050, L500.4100, L100.0100 #### [facility] [address] [place], [address] T PROT 7.9 g/dL Normal 6.4-8.2 [facility] Comment on above: Performed By: #### L 501.9520, L500.4050, L500.4100, L100.0100 #### [facility] [address] [place], [address] Urea nitrogen [Mass/Vol] 18 mg/dL Normal 7-18 [facility] Comment on above: Performed By: #### L 501.9520, L500.4050, L500.4100, L100.0100 #### [facility] [address] [place], [address] Eosinophil percentageOrdered By: Guillermo Ge on 09-30-2024 Eosinophils/100 WBC (Bld) 3.0 % 0-5 [facility] Erythrocyte distribution wid th ratioOrdered By: Guillermo Ge on 09-30-2024 Erythrocyte distribution width (RBC) [Ratio] 15.6 % High 11.6-14.6 [facility] Erythrocyte distribution wid th standard deviationOrdered By: Guillermo Ge on 09-30-2024 Erythrocyte distribution width (RBC) [Entitic vol] 51.2 fL High 35.1-43.9 [facility] Estimated glomerular filtrat ion rate (GFR) AmericanOrdered By: Guillermo Ge on 09-30-2024 Estimated GFR (MDRD) Amer 77 mL/min >60 [facility] Comment on above: GFR Calc Glomerular filtration rate ( GFR) estimationOrdered By: Guillermo Ge on 09-30-2024 Estimated GFR (MDRD) Non-Af Amer 64 mL/min >60 [facility] Comment on above: Non- GFR Calc Glucose measurementOrdered B y: Guillermo Ge on 09-30-2024 Glucose [Mass/Vol] 92 mg/dL 74-106 [facility] Hematocrit Auto (Bld) [Volum e fraction]Ordered By: Guillermo Ge on 09-30-2024 Hematocrit (Bld) [Volume fraction] 42.9 % 37-47 [facility] Hemoglobin measurementOrdere d By: Guillermo Ge on 09-30-2024 Hemoglobin (Bld) [Mass/Vol] 13.8 g/dL 12.0-15.0 [facility] High density lipoprotein (HD L) measurementOrdered By: Guillermo Ge on 09-30-2024 Cholesterol in HDL [Mass/Vol] 84 mg/dL >40 [facility] Comment on above: The drugs N-Acetylcy steine and Metamizole may falsely depress this assay. Reference Range HDL <40 mg/dL Low HDL Cholesterol HDL >or= 60 mg/dL High HDL Cholesterol Immature granulocytes/100 WB C Auto (Bld)Ordered By: Guillermo Ge on 09-30-2024 Immature granulocytes/100 WBC (Bld) 0.900 % 0.0-0.9 [facility] Comment on above: IG% - Immature Granu locytes (promyelocytes, myelocytes and metamyelocytes) > 1% indicates that a LEFT SHIFT is Present. Laboratory - Chemistry and C hemistry - challengeOrdered By: Guillermo Ge on 09-30-2024 AST [Catalytic activity/Vol] 28 U/L 15-37 [facility] Lipid Profileon 09-30-2024 Cholesterol [Mass/Vol] 182 mg/dL Normal 200 [facility] Comment on above: Result Comment: <200 mg/dL Desirable 200-240 mg/dL Borderline >240 mg/dL High Risk Performed By: #### L 501.9520, L500.4050, L500.4100, L100.0100 #### [facility] [address] [place], [address] Cholesterol in HDL [Mass/Vol] 84 mg/dL Normal [facility] Comment on above: Result Comment: The drugs N-Acetylcysteine and Metamizole may falsely depress this assay. Reference Range HDL <40 mg/dL Low HDL Cholesterol HDL >or= 60 mg/dL High HDL Cholesterol Performed By: #### L 501.9520, L500.4050, L500.4100, L100.0100 #### [facility] [address] [place], [address] Cholesterol in LDL [Mass/Vol] 74 mg/dL Normal 0-130 [facility] Comment on above: Performed By: #### L 501.9520, L500.4050, L500.4100, L100.0100 #### [facility] [address] [place], [address] Cholesterol in VLDL [Mass/Vol] 24 mg/dL Normal 5-40 [facility] Comment on above: Performed By: #### L 501.9520, L500.4050, L500.4100, L100.0100 #### [facility] [address] [place], [address] Triglyceride [Mass/Vol] 121 mg/dL Normal [facility] Comment on above: Result Comment: The drugs N-Acetylcysteine and Metamizole may falsely depress this assay. Serum Triglycerides Reference Interval Normal <150 mg/dL Borderline high 150 - 199 mg/dL High 200 - 499 mg/dL Very High > or = 500 mg/dL Performed By: #### L 501.9520, L500.4050, L500.4100, L100.0100 #### [facility] [address] [place], [address] Low density lipoprotein (LDL ) cholesterol measurementOrdered By: Guillermo Ge on 09-30-2024 Cholesterol in LDL [Mass/Vol] 74 mg/dL 0-130 [facility] Lymphocytes Auto (Unsp spec) [#/Vol]Ordered By: Guillermo Ge on 09-30-2024 Lymphocytes (Bld) [#/Vol] 1.66 10*3/uL 0.83-4.51 [facility] Lymphocytes/100 WBC Auto (Un sp spec)Ordered By: Guillermo Ge on 09-30-2024 Lymphocytes/100 WBC (Bld) 18.2 % Low 19-41 [facility] MCV (mean corpuscular volume ) determinationOrdered By: Guillermo Ge on 09-30-2024 MCV (RBC) [Entitic vol] 90.7 fL 81-99 [facility] Mean corpuscular hemoglobin (MCH) determinationOrdered By: Guillermo Ge on 09-30-2024 MCH (RBC) [Entitic mass] 29.2 pg 27.0-32.0 [facility] Mean corpuscular hemoglobin concentration (MCHC) determinationOrdered By: Guillermo Ge on 09-30-2024 MCHC (RBC) [Mass/Vol] 32.2 g/dL 32-36 [facility] Mean platelet volume determi nationOrdered By: Guillermo Ge on 09-30-2024 Platelet mean volume (Bld) [Entitic vol] 9.6 fL 6.2-12.0 [facility] Monocyte percentageOrdered B y: Guillermo Ge on 09-30-2024 Monocytes/100 WBC (Bld) 6.4 % 0-10 [facility] Neutrophil percentageOrdered By: Guillermo Ge on 09-30-2024 Neutrophils/100 WBC (Bld) 70.7 % High 47-70 [facility] Nucleated red blood cell per centageOrdered By: Guillermo Ge on 02-18-2025 Nucleated RBC/100 WBC (Bld) [Ratio] 0 % 0-5 [facility] Platelet countOrdered By: Katlyn celestehunter eG on 09-30-2024 Platelets (Bld) [#/Vol] 274 10*3/uL 150-450 [facility] Potassium measurementOrdered By: Guillermo Ge on 09-30-2024 Potassium [Moles/Vol] 4.0 mmol/L 3.5-5.1 [facility] RBC Auto (Bld) [#/Vol]Ordere d By: Guillremo Ge on 09-30-2024 RBC (Bld) [#/Vol] 4.73 10*6/uL 4.2-5.4 [facility] Serum anion gap measurementO rdered By: Guillermo Ge on 09-30-2024 Anion gap [Moles/Vol] 8 mmol/L 5-15 [facility] Serum globulin measurementOr dered By: Guillermo Ge on 09-30-2024 Globulin (S) [Mass/Vol] 4.0 g/dL 2.2-4.2 [facility] Serum or plasma alanine rothman otransferase (ALT) measurementOrdered By: Guillermo Ge on 09-30-2024 ALT [Catalytic activity/Vol] 45 U/L 13-56 [facility] Serum or plasma albumin ernie urement (mass/volume)Ordered By: Guillermo Ge on 09-30-2024 Albumin [Mass/Vol] 3.9 g/dL 3.2-5.0 [facility] Serum or plasma alkaline toya sphatase measurementOrdered By: Guillermo Ge on 09-30-2024 ALP [Catalytic activity/Vol] 91 U/L 45-117 [facility] Serum or plasma calcium ernie urement (mass/volume)Ordered By: Guillermo Ge on 09-30-2024 Calcium [Mass/Vol] 9.4 mg/dL 8.5-10.1 [facility] Serum or plasma cholesterol measurement (mass/volume)Ordered By: Guillermo Ge on 09-30-2024 Cholesterol [Mass/Vol] 182 mg/dL <200 [facility] Comment on above: <200 mg/dL Desirable 200-240 mg/dL Borderline >240 mg/dL High Risk Serum or plasma creatinine m easurement (mass/volume)Ordered By: Guillermo Ge on 09-30-2024 Creatinine [Mass/Vol] 0.97 mg/dL 0.55-1.02 [facility] Comment on above: The validity of the calculated GFR & GFRAA in patients over 70 years has not been determined. Clinical correlation is essential. Serum or plasma urea nitroge n measurement (mass/volume)Ordered By: Guillermo Ge on 09-30-2024 Urea nitrogen [Mass/Vol] 18 mg/dL 7-18 [facility] Sodium levelOrdered By: Kaushik Ge on 09-30-2024 Sodium [Moles/Vol] 136 mmol/L 136-145 [facility] TSH QnOrdered By: Guillermo doherty on 09-30-2024 Thyroid Stimulating Hormone (TSH) 2.240 uIU/mL 0.358-3.740 [facility] Thyroid Stim Hormone (TSH)on 09-30-2024 TSH 2.240 uIU/mL Normal 0.358-3.740 [facility] Comment on above: Performed By: #### L 501.9520, L500.4050, L500.4100, L100.0100 #### [facility] [address] [place], [place], [id number] Total proteinOrdered By: Abhinav Ge on 09-30-2024 Protein [Mass/Vol] 7.9 g/dL 6.4-8.2 [facility] Triglycerides measurementOrd ered By: Guillermo Ge on 09-30-2024 Triglyceride [Mass/Vol] 121 mg/dL <199 [facility] Comment on above: The drugs N-Acetylcy steine and Metamizole may falsely depress this assay.Serum Triglycerides Reference Interval Normal <150 mg/dL Borderline high 150 - 199 mg/dL High 200 - 499 mg/dL Very High > or = 500 mg/dL Very low density lipoprotein (VLDL) cholesterol measurementOrdered By: Guillermo Ge on 09-30-2024 VLDL Cholesterol 24 mg/dL 5-40 [facility] White blood cell (WBC) count Ordered By: Guillermo Ge on 09-30-2024 WBC (Bld) [#/Vol] 9.1 10*3/uL 4.4-11.0 [facility] 09-26-2024 CNOV Office Visit (PSYLST ) ----- BRUNO PATTERSON ([id number]) 1970 F Date Time Provider Department 09/26/24 10:00 AM PERCY VARGAS PSYLST During your visit today, we recorded the following information about you: Percy Vargas LISW 09/26/2024 1:41 PM Signed GENERAL PSYCHOLOGY Session #: 84 (session count starts after PSYL NEW EVAL visit) Visit Type:The patient consented to a virtual visit and their location was confirmed. SUBJECTIVE: I have communicated my name and active licensure. The patient's identity and physical location were verified at the time of this visit. Either the patient or their legal outbound telemarketing representative has been informed of the risks and benefits of -- and alternatives to -- treatment through a remote evaluation and consents to proceed with the evaluation remotely. PATIENT DATA: Generalized Anxiety Disorder Scale (JET-7) 08/21/2024 09/04/2024 09/25/2024 JET - 7 SCORES Score 8 8 8 (0-4) minimal anxiety, (5-9) mild anxiety, (10-14) moderate anxiety, (15-21) severe anxiety Patient Health Questionnaire (PHQ-9) 08/21/2024 09/04/2024 09/25/2024 PHQ-9 Score 11 11 12 (0-4) minimal depression, (5-9) mild depression, (10-14) moderate depression, (15-19) moderately severe depression, (20-27) severe depression OBJECTIVE: Cognitive behavioral therapy Mental Status Exam: General/Sensorium: Alert and AND interactive - Appearance: Appears stated age - Eye Contact: Appropriate eye [...] Patient worked on processing through her emotional symptoms. Patient worked on addressing her use of coping mechanisms. Patient addressed family related problems DIAGNOSIS: PRIMARY: 1: Major depression recurrent moderate Other: None PROVISIONAL: None TREATMENT MODALITIES: Cognitive Behavioral Therapy to self monitoring PROGRESS TO DATE: Rigger Up Progress: Progress Short Term Condition: Progress GOALS/OBJECTIVES/INTERVEN TIONS: Patient to reduce symptoms of depression Patient to improve sleep hygiene Patient to improve self-care Patient to improve conflict resolution skills Patient to improve use of coping mechanisms Approximately 45 minutes were spent with the patient doing therapy. WILLOW Adamson Referring Provider: PERCY VARGAS [[id number]] Allergies As of Date: 09/26/2024 Noted Allergy Reaction CITRIC ACID 11/10/2021 14 - Other: See Comments Comments: Wears down lining of the mouth. Fruit and tomatoes CYMBALTA (DULOXETINE) 06/04/2009 14 - Other: See Comments Comments: Weight gain PENICILLINS 05/04/2009 4 - Hives SHELLFISH DERIVED 10/22/2017 11 - Vomiting Date Reviewed: 12/05/2023 Reviewed by: Davis Jesus RN - Fully Assessed Visit Diagnosis:Depression, major, recurrent, moderate (HCC) [F33.1] Order(s):PROVIDER ORDERED FOLLOW UP [[id number]] Order #: [id number]: 1 Prescriptions as of 09/26/2024 - lamoTRIgine (LAMICTAL) 100 mg tablet TAKE 1 TABLET BY MOUTH DAILY - potassium chloride ER (KLOR-CON) 20 mEq tablet Take 1 tablet by mouth three times a day. - acetaminophen (TYLENOL) 500 mg tablet Take 2 tablets by mouth every 8 hours. - ascorbic acid, vitamin C, (VITAMIN C) 500 mg tablet Take 1 tablet by mouth two times a day with meals for 25 doses. - aspirin, enteric coated (ASPIRIN, ENTERIC COATED) 81 mg EC tablet Take 1 tablet by mouth two times a day for 28 days. - traMADol (ULTRAM) 50 mg tablet Take 50 mg by mouth two times a day. - buprenorphine (BUTRANS) 5 mcg/hour Apply 1 Patch as directed one time a week. - tiZANidine HCl (ZANAFLEX) 4 mg capsule Take 4 mg by mouth at bedtime as needed. - topiramate (TOPAMAX) 100 mg tablet Take 100 mg by mouth two times a day. - gabapentin (NEURONTIN) 600 mg tablet Take 600 mg by mouth two times a day. - levothyroxine 88 mcg cap Take 88 mcg by mouth daily before breakfast. - Cetirizine 10 mg cap Take 1 capsule by mouth once daily. - fluticasone (FLONASE) 50 mcg/actuation nasal spray Use 1 [place] in each nostril as needed. - rosuvastatin (CRESTOR) 5 mg tablet Take 10 mg by mouth once daily. - dexAMETHasone 0.1 % ophthalmic solution 3 drops 3 times a day to affected ear as needed vertigo - triamterene-hydroCHLOROth iazide (MAXZIDE-25) 37.5-25 mg per tablet Take 1 tablet by mouth once daily. - venlafaxine (EFFEXOR) 37.5 mg tablet Take 75 mg by mouth once daily. - aMILoride (MIDAMOR) 5 mg tablet Take 5 mg by mouth (more content not included)... Normal [facility] Internal Medicine Office Vis itokush 09-26-2024 Internal Medicine Office Visit [facility] [address] [place] [id number] OFFICE VISIT Date of Service: 09/26/24 MR#: [id number] Acct: [id number] Name: BRUNO PATTERSON Rep #: [id number] : 1970 Provider: ALEXANDRA Chavez Age/Sex: 53/F Location: [facility] Status: Signed Intake Vital Signs 12/12/23 13:36 09/26/24 16:47 Height 5 ft 5 in Weight: 218 lb 4 oz BP 132/68 H Blood Pressure Location Lt brachial Position Sitting Respiration 16 Pulse 79 Pulse Source Palpation Temp 96.1 F L Temp Source Temporal Pulse Oximetry (%) 98 Intake Visit Reasons: ACUTE NEW PT - FOR MED REFILLS 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 Required: No Accompanied by: Self Is patient in pain?: Yes (back and right leg (rt side)) Allergies shellfish derived Allergy (Severe, Verified 09/26/24 13:53) vomitting Penicillins Allergy (Verified 09/26/24 13:53) Hives citric acid Adverse Reaction (Severe, Verified 09/26/24 13:53) wears dowm linning of mouth duloxetine (From Cymbalta) Adverse Reaction (Intermediate, Verified 09/26/24 13:53) Other gluten Adverse Reaction (Intermediate, Verified 09/26/24 13:53) stomach discomfort Medications ???Medication ???Instructions ???Recorded ???Confirmed ???Type amiloride 5 mg tablet 1 tab PO DAILY MENERIES 03/27/20 0 09/26/24 History omeprazole 40 mg capsule,delayed 40 mg PO DAILY PER DR 08/17/21 History release ondansetron HCl 4 mg tablet 4 mg PO Q8H PRN NAUSEA 08/17/21 History rosuvastatin 10 mg tablet 10 mg PO DAILY PER DR REAGAN 3 09/26/24 History cetirizine 10 mg tablet (Zyrtec) 10 mg PO DAILY allergy symptoms 09/26/24 History lamotrigine 100 mg tablet 100 mg PO DAILY PER DR 03/08/23 History multivitamin (Daily Multi-Vitamin 1 tab PO DAILY PER DR 08/20/23 History tablet) ascorbic acid (vitamin C) 500 mg 500 mg PO BIDCM supplement 4 09/26/24 History tablet (Vitamin C) meclizine 25 mg tablet 12.5 mg PO TID PRN dizziness 12/0709/26/24 History gabapentin 600 mg tablet 600 mg PO BID #0 tabs 12/18/23 Rx levothyroxine 88 mcg tablet 88 mcg PO DAILY@0600 #0 tabs 12/1709/26/24 Rx potassium chloride 20 mEq 20 meq PO TIDCM 30 days #90 tabs 0 12/18/23 09/26/24 Rx tablet,extended release(part/cryst) topiramate 100 mg tablet 100 mg PO BID #0 tabs 12/18/23 Rx triamterene 37.5 1 cap PO DAILY #0 caps 12/18/23 Rx mg-hydrochlorothiazide 25 mg capsule venlafaxine 75 mg capsule,extended 75 mg PO DAILY #0 caps 12/18/23 09/26/24 Rx release 24 hr acetaminophen 500 mg tablet 1,000 mg PO Q8 PRN 08/20/24 History tizanidine 2 mg tablet 4 mg PO TID PRN 08/20/24 09/26/24 History celecoxib 200 mg capsule (Celebrex) 200 mg PO QDAY #30 caps 5 09/26/24 Rx Have you fallen in the past year?: No Nurse's Note: fell on ice last sunday right sided pain PFSH Medical History Vertigo Acute maxillary sinusitis, unspecified Loss of hearing Wears glasses Depression Anxiety Ambulates with cane Anemia Easy bruising Migraine headache Injury of head and neck Menieres disease Dietary restriction History of ulceration Gastric reflux Former smoker Leg cramps History of pain when walking History of edema Pneumonia Pain Hypokalemia Vitamin deficiency Vision problem Ulcer Thyroid disease Osteoarthritis Neuropathy IBS (irritable bowel syndrome) Hearing problem Back problem Arthritis Seasonal allergies Surgical History History of total right hip arthroplasty S/P insertion of spinal cord stimulator H/O total hip arthroplasty Family History Father Alcohol abuse Colon cancer Diabetes Respiratory disease Melanoma Dementia Sister Alcohol abuse Arthritis Asthma Son Anxiety Mother Arthritis Asthma Heart disease Hypertension Aunt Autoimmune disease Brother Hypertension Other Bowel disease Depression High cholesterol Mental disorder Psychiatric care Severe allergic reaction Thyroid disorder Social History household members: none Smoking Status: Current every day smoker tobacco type: e-cigarettes alcohol intake: former year quit: 2015 substance use type: does not use frequency: daily HPI HPI Chief Complaint: establishing Details: BRUNO PATTERSON, is a 53 F who presents to the office today to establish care here in our office as her physician retired this year. She is going to establish here with Dr. Valdovinos next month but she needed a refill on her Celebrex and needed to be (more content not included)... Normal [facility] CTA Chest W/WO Contraston CTA Chest W/WO Contrast [facility] [address] [place], [place] [id number] CTA Chest W/WO Contrast MR#: [id number] Acct: [id number] Name: BRUNO PATTERSON Rep #: [id number] : 1970 F 53 From: Luther Kyle DO PCP: Dr. Wandy Valdovinos MD Status: REG CLI Study: CTA Chest W/WO Contrast Date of Exam: 09/09/24 Exam# [id number] Ordering Dr: Cheyenne Keller PROCEDURE: CTA CHEST W CONTRAST REASON FOR EXAM: Thoracic aortic aneurysm. . TECHNIQUE: CTA imaging of the chest with intravenous contrast. 3D reconstructions. CONTRAST: Administered COMPARISON: None. FINDINGS: Hardware: Stimulator wires noted within the thoracic spinal canal. Lymph nodes: No mediastinal hilar or axillary lymphadenopathy. Heart: Normal heart size. No pericardial effusion. Thoracic Aorta: Ascending aorta, measured at the level the pulmonary artery bifurcation measures a proximally 4.1 by 4.0 cm. No dissection. The aortic arch measures 2.4 cm. The descending thoracic aorta measures approximately 2.4 cm. Incidentally noted, retroesophageal right subclavian artery, normal variation. Pulmonary Vessels: No large central filling defects. Contrast timing was optimized for evaluation of the aorta. Lungs and Airways: Mild gravity dependent changes bilaterally. No focal airspace consolidation, pneumothorax or pleural effusion is seen. Pleura: No pleural effusion. No pneumothorax. Upper Abdomen: Visualized portions of the upper abdominal viscera are unremarkable. Bones: Bone windows are unremarkable. CT/CTA Chest W/WO Contrast IMPRESSION: 1. Ascending aorta, measures up to 4.1 x 4.0 cm. No dissection is identified. 2. Mild gravity dependent changes bilaterally. No focal airspace consolidation, pneumothorax or pleural effusion is seen. One or more dose reduction techniques were used (e.g., Automated exposure control, adjustment of the mA and/or kV according to patient size, use of iterative reconstruction technique). Reading Location: [facility] CC: ALEXANDRA Leonard; Dr. Wandy Valdovinos MD Associate Engineer: Signed Normal [facility] CNOVon 09-05-2024 CNOV Office Visit (PSYLST ) ----- BRUNO PATTERSON ([id number]) 1970 F Date Time Provider Department 09/05/24 10:00 AM PERCY VARGAS PSYLST During your visit today, we recorded the following information about you: Percy Vargas LISW 09/05/2024 2:41 PM Signed GENERAL PSYCHOLOGY Session #: 83 (session count starts after PSYL NEW EVAL visit) Visit Type:The patient consented to a virtual visit and their location was confirmed. SUBJECTIVE: I have communicated my name and active licensure. The patient's identity and physical location were verified at the time of this visit. Either the patient or their legal outbound telemarketing representative has been informed of the risks and benefits of -- and alternatives to -- treatment through a remote evaluation and consents to proceed with the evaluation remotely. PATIENT DATA: Generalized Anxiety Disorder Scale (JET-7) 07/31/2024 08/21/2024 09/04/2024 JET - 7 SCORES Score 8 8 8 (0-4) minimal anxiety, (5-9) mild anxiety, (10-14) moderate anxiety, (15-21) severe anxiety Patient Health Questionnaire (PHQ-9) 07/31/2024 08/21/2024 09/04/2024 PHQ-9 Score 8 11 11 (0-4) minimal depression, (5-9) mild depression, (10-14) moderate depression, (15-19) moderately severe depression, (20-27) severe depression OBJECTIVE: Cognitive behavioral therapy Mental Status Exam: General/Sensorium: Alert and AND interactive - Appearance: Appears stated age - Eye Contact: Appropriate eye contact - Demeanor: Appropriately interactive - Speech: Appropriate - Mood: Reports feeling [...] Patient worked on processing through her emotional symptoms. Patient worked on addressing family related problems and the negative impact on her emotionally DIAGNOSIS: PRIMARY: 1: Major depression recurrent moderate Other: None PROVISIONAL: None TREATMENT MODALITIES: Cognitive Behavioral Therapy to self monitoring PROGRESS TO DATE: Rigger Up Progress: Progress Short Term Condition: Progress GOALS/OBJECTIVES/INTERVEN TIONS: Patient to reduce symptoms of depression Patient to improve sleep hygiene Patient to improve self-care Patient to improve conflict resolution skills Patient to improve use of coping mechanisms Approximately 45 minutes were spent with the patient doing therapy. WILLOW Adamson Referring Provider: PERCY VARGAS [[id number]] Allergies As of Date: 09/05/2024 Noted Allergy Reaction CITRIC ACID 11/10/2021 14 - Other: See Comments Comments: Wears down lining of the mouth. Fruit and tomatoes CYMBALTA (DULOXETINE) 06/04/2009 14 - Other: See Comments Comments: Weight gain PENICILLINS 05/04/2009 4 - Hives SHELLFISH DERIVED 10/22/2017 11 - Vomiting Date Reviewed: 12/05/2023 Reviewed by: Davis Jesus RN - Fully Assessed Visit Diagnosis:Depression, major, recurrent, moderate (HCC) [F33.1] Order(s):PROVIDER ORDERED FOLLOW UP [[id number]] Order #: [id number]: 1 PROVIDER ORDERED FOLLOW UP [[id number]] Order #: [id number]: 1 FUTURE PROVIDER ORDERED FOLLOW UP [[id number]] Order #: [id number]: 1 FUTURE Prescriptions as of 09/05/2024 - lamoTRIgine (LAMICTAL) 100 mg tablet TAKE 1 TABLET BY MOUTH DAILY - potassium chloride ER (KLOR-CON) 20 mEq tablet Take 1 tablet by mouth three times a day. - acetaminophen (TYLENOL) 500 mg tablet Take 2 tablets by mouth every 8 hours. - ascorbic acid, vitamin C, (VITAMIN C) 500 mg tablet Take 1 tablet by mouth two times a day with meals for 25 doses. - aspirin, enteric coated (ASPIRIN, ENTERIC COATED) 81 mg EC tablet Take 1 tablet by mouth two times a day for 28 days. - traMADol (ULTRAM) 50 mg tablet Take 50 mg by mouth two times a day. - buprenorphine (BUTRANS) 5 mcg/hour Apply 1 Patch as directed one time a week. - tiZANidine HCl (ZANAFLEX) 4 mg capsule Take 4 mg by mouth at bedtime as needed. - topiramate (TOPAMAX) 100 mg tablet Take 100 mg by mouth two times a day. - gabapentin (NEURONTIN) 600 mg tablet Take 600 mg by mouth two times a day. - levothyroxine 88 mcg cap Take 88 mcg by mouth daily before breakfast. - Cetirizine 10 mg cap Take 1 capsule by mouth once daily. - fluticasone (FLONASE) 50 mcg/actuation nasal spray Use 1 [place] in each nostril as needed. - rosuvastatin (CRESTOR) 5 mg tablet Take 10 mg by mouth once daily. - dexAMETHasone 0.1 % ophthalmic solution 3 drops 3 times a day to affected ear as needed vertigo - triamterene-hydroCHLOROth iazide (MAXZIDE-25) 37.5-25 mg per tablet Take 1 tablet by mouth once daily. - venlafaxine (EFF (more content not included)... Normal [facility] CNOVon 08-22-2024 CNOV Office Visit (PSYLST ) ----- BRUNO PATTERSON ([id number]) 1970 F Date Time Provider Department 08/22/24 10:00 AM PERCY VARGAS PSYLST During your visit today, we recorded the following information about you: Percy Vargas LISW 08/22/2024 4:26 PM Signed GENERAL PSYCHOLOGY Session #: 82 (session count starts after PSYL NEW EVAL visit) Visit Type:The patient consented to a virtual visit and their location was confirmed. SUBJECTIVE: I have communicated my name and active licensure. The patient's identity and physical location were verified at the time of this visit. Either the patient or their legal outbound telemarketing representative has been informed of the risks and benefits of -- and alternatives to -- treatment through a remote evaluation and consents to proceed with the evaluation remotely. PATIENT DATA: Generalized Anxiety Disorder Scale (JET-7) 07/16/2024 07/31/2024 08/21/2024 JET - 7 SCORES Score 7 8 8 (0-4) minimal anxiety, (5-9) mild anxiety, (10-14) moderate anxiety, (15-21) severe anxiety Patient Health Questionnaire (PHQ-9) 07/16/2024 07/31/2024 08/21/2024 PHQ-9 Score 9 8 11 (0-4) minimal depression, (5-9) mild depression, (10-14) moderate depression, (15-19) moderately severe depression, (20-27) severe depression OBJECTIVE: Cognitive behavioral therapy Mental Status Exam: General/Sensorium: Alert and AND interactive - Appearance: Appears stated age - Eye Contact: Appropriate eye [...] Patient worked on processing through her emotional symptoms. Patient worked on addressing family related problems. DIAGNOSIS: PRIMARY: 1: Major depression recurrent moderate Other: None PROVISIONAL: None TREATMENT MODALITIES: Cognitive Behavioral Therapy to self monitoring PROGRESS TO DATE: Rigger Up Progress: Progress Short Term Condition: Regressed GOALS/OBJECTIVES/INTERVEN TIONS: Patient to reduce symptoms of depression Patient to improve sleep hygiene Patient to improve self-care Patient to improve conflict resolution skills Patient to improve use of coping mechanisms Approximately 45 minutes were spent with the patient doing therapy. WILLOW Adamson Referring Provider: PERCY VARGAS [[id number]] Allergies As of Date: 08/22/2024 Noted Allergy Reaction CITRIC ACID 11/10/2021 14 - Other: See Comments Comments: Wears down lining of the mouth. Fruit and tomatoes CYMBALTA (DULOXETINE) 06/04/2009 14 - Other: See Comments Comments: Weight gain PENICILLINS 05/04/2009 4 - Hives SHELLFISH DERIVED 10/22/2017 11 - Vomiting Date Reviewed: 12/05/2023 Reviewed by: Davis Jesus RN - Fully Assessed Visit Diagnosis:Depression, major, recurrent, moderate (HCC) [F33.1] Order(s):PROVIDER ORDERED FOLLOW UP [[id number]] Order #: [id number]: 1 Prescriptions as of 08/22/2024 - lamoTRIgine (LAMICTAL) 100 mg tablet TAKE 1 TABLET BY MOUTH DAILY - potassium chloride ER (KLOR-CON) 20 mEq tablet Take 1 tablet by mouth three times a day. - acetaminophen (TYLENOL) 500 mg tablet Take 2 tablets by mouth every 8 hours. - ascorbic acid, vitamin C, (VITAMIN C) 500 mg tablet Take 1 tablet by mouth two times a day with meals for 25 doses. - aspirin, enteric coated (ASPIRIN, ENTERIC COATED) 81 mg EC tablet Take 1 tablet by mouth two times a day for 28 days. - traMADol (ULTRAM) 50 mg tablet Take 50 mg by mouth two times a day. - buprenorphine (BUTRANS) 5 mcg/hour Apply 1 Patch as directed one time a week. - tiZANidine HCl (ZANAFLEX) 4 mg capsule Take 4 mg by mouth at bedtime as needed. - topiramate (TOPAMAX) 100 mg tablet Take 100 mg by mouth two times a day. - gabapentin (NEURONTIN) 600 mg tablet Take 600 mg by mouth two times a day. - levothyroxine 88 mcg cap Take 88 mcg by mouth daily before breakfast. - Cetirizine 10 mg cap Take 1 capsule by mouth once daily. - fluticasone (FLONASE) 50 mcg/actuation nasal spray Use 1 [place] in each nostril as needed. - rosuvastatin (CRESTOR) 5 mg tablet Take 10 mg by mouth once daily. - dexAMETHasone 0.1 % ophthalmic solution 3 drops 3 times a day to affected ear as needed vertigo - triamterene-hydroCHLOROth iazide (MAXZIDE-25) 37.5-25 mg per tablet Take 1 tablet by mouth once daily. - venlafaxine (EFFEXOR) 37.5 mg tablet Take 75 mg by mouth once daily. - aMILoride (MIDAMOR) 5 mg tablet Take 5 mg by mouth once daily. - ondansetron ora (more content not included)... Normal [facility] MR/BMS.BVSon 08-20-2024 MR/BMS.BVS [facility] [address] [place] [address] OFFICE VISIT Date of Service: 08/20/24 MR#: [id number] Acct: [id number] Name: BRUNO PATTERSON Rep #: [id number] : 1970 Provider: ALEXANDRA Leonard Age/Sex: 53/F Location: [facility] Status: Signed Intake Vital Signs 12/12/23 13:36 08/20/24 10:29 Height 5 ft 5 in Weight: 211 lb BP 139/94 H Blood Pressure Location Lt brachial Position Sitting Respiration 16 Pulse 88 Pulse Source Monitor Temp 98.6 F Temp Source Temporal Pulse Oximetry (%) 96 Oxygen Delivery Method room air Intake Visit Reasons: 1 Y FU Is patient in pain?: Yes Allergies shellfish derived Allergy (Severe, Verified 08/20/24 10:31) vomitting Penicillins Allergy (Verified 08/20/24 10:31) Hives citric acid Adverse Reaction (Severe, Verified 08/20/24 10:31) wears dowm linning of mouth duloxetine (From Cymbalta) Adverse Reaction (Intermediate, Verified 08/20/24 10:31) Other gluten Adverse Reaction (Intermediate, Verified 08/20/24 10:31) stomach discomfort Medications ???Medication ???Instructions ???Recorded ???Confirmed ???Type amiloride 5 mg tablet 1 tab PO DAILY MENERIES 03/27/20 08/20/24 History omeprazole 40 mg capsule,delayed 40 mg PO DAILY PER 08/17/21 08/20/24 History release ondansetron HCl 4 mg tablet 4 mg PO Q8H PRN NAUSEA 08/17/21 08/20/24 History rosuvastatin 10 mg tablet 10 mg PO DAILY PER DR REAGAN 01/24/23 08/20/24 History cetirizine 10 mg tablet (Zyrtec) 10 mg PO DAILY allergy symptoms 03/08/23 08/20/24 History lamotrigine 100 mg tablet 100 mg PO DAILY PER DR 03/08/23 08/20/24 History multivitamin (Daily Multi-Vitamin 1 tab PO DAILY PER DR 08/20/23 08/20/24 History tablet) ascorbic acid (vitamin C) 500 mg 500 mg PO BIDCM supplement 12/08/23 08/20/24 History tablet (Vitamin C) meclizine 25 mg tablet 12.5 mg PO TID PRN dizziness 12/08/23 08/20/24 History gabapentin 600 mg tablet 600 mg PO BID #0 tabs 12/18/23 08/20/24 Rx levothyroxine 88 mcg tablet 88 mcg PO DAILY@0600 #0 tabs 12/18/23 08/20/24 Rx potassium chloride 20 mEq 20 meq PO TIDCM 30 days #90 tabs 12/18/23 08/20/24 Rx tablet,extended release(part/cryst) topiramate 100 mg tablet 100 mg PO BID #0 tabs 12/18/23 08/20/24 Rx triamterene 37.5 1 cap PO DAILY #0 caps 12/18/23 08/20/24 Rx mg-hydrochlorothiazide 25 mg capsule venlafaxine 75 mg capsule,extended 75 mg PO DAILY #0 caps 12/18/23 08/20/24 Rx release 24 hr acetaminophen 500 mg tablet 1,000 mg PO Q8 PRN 08/20/24 History tizanidine 2 mg tablet 4 mg PO TID PRN 08/20/24 08/20/24 History Is last menstrual period known: Yes Post menopausal: No Patient : No Have you fallen in the past year?: Yes [facility] Medical History Vertigo Acute maxillary sinusitis, unspecified Loss of hearing Wears glasses Depression Anxiety Ambulates with cane Anemia Easy bruising Migraine headache Injury of head and neck Menieres disease Dietary restriction History of ulceration Gastric reflux Former smoker Leg cramps History of pain when walking History of edema Pneumonia Pain Hypokalemia Vitamin deficiency Vision problem Ulcer Thyroid disease Osteoarthritis Neuropathy IBS (irritable bowel syndrome) Hives Hearing problem Back problem Arthritis Seasonal allergies Surgical History History of total right hip arthroplasty S/P insertion of spinal cord stimulator H/O total hip arthroplasty Family History (Updated 08/20/24 @ 10:28 by Yuliya Wang) Other Alcohol abuse Anxiety Arthritis Asthma Autoimmune disease Bowel disease Colon cancer Dementia Depression Diabetes Heart disease High cholesterol Hypertension Mental disorder Psychiatric care Severe allergic reaction Thyroid disorder Social History household members: none Smoking Status: Current every day smoker tobacco type: e-cigarettes alcohol intake: former year quit: 2016 substance use type: does not use frequency: daily HPI HPI HPI: BRUNO PATTERSON, is a 53 F who presents to the office today for 1 year follow-up of thoracic aortic ectasia/aneurysm which was incidentally identified on coronary calcium scoring imaging. At [facility] last year, plan was for CTA to correlate these results and determine best surveillance interval if needed. However, she never completed this study as shortly after her appointment she underwent spine surgery with prolonged recovery and then just a few months later R hip replacement as well. She is now recovered from both of those surgeries, she has some persistent R back/flank pain but overal (more content not included)... Normal [facility] CNOVon 08-01-2024 CNOV Office Visit (PSYLST ) ----- BRUNO PATTERSON ([id number]) 1970 F Date Time Provider Department 08/01/24 10:00 AM PERCY VARGAS PSYLST During your visit today, we recorded the following information about you: Percy Vargas LISW 08/01/2024 2:12 PM Signed GENERAL PSYCHOLOGY Session #: 81 (session count starts after PSYL NEW EVAL visit) Visit Type:The patient consented to a virtual visit and their location was confirmed. SUBJECTIVE: I have communicated my name and active licensure. The patient's identity and physical location were verified at the time of this visit. Either the patient or their legal outbound telemarketing representative has been informed of the risks and benefits of -- and alternatives to -- treatment through a remote evaluation and consents to proceed with the evaluation remotely. PATIENT DATA: Generalized Anxiety Disorder Scale (JET-7) 07/01/2024 07/16/2024 07/31/2024 JET - 7 SCORES Score 10 7 8 (0-4) minimal anxiety, (5-9) mild anxiety, (10-14) moderate anxiety, (15-21) severe anxiety Patient Health Questionnaire (PHQ-9) 07/01/2024 07/16/2024 07/31/2024 PHQ-9 Score 9 9 8 (0-4) minimal depression, (5-9) mild depression, (10-14) moderate depression, (15-19) moderately severe depression, (20-27) severe depression OBJECTIVE: Cognitive behavioral therapy Mental Status Exam: General/Sensorium: Alert and AND interactive - Appearance: Appears stated age - Eye Contact: Appropriate eye [...] Patient worked on processing through her emotional symptoms. Patient worked on addressing family related problems. DIAGNOSIS: PRIMARY: 1: Major depression recurrent moderate Other: None PROVISIONAL: None TREATMENT MODALITIES: Cognitive Behavioral Therapy to self monitoring PROGRESS TO DATE: [facility] Progress: Progress Short Term Condition: Progress GOALS/OBJECTIVES/INTERVEN TIONS: Patient to reduce symptoms of depression Patient to improve sleep hygiene Patient to improve self-care Patient to improve conflict resolution skills Patient to improve use of coping mechanisms Approximately 45 minutes were spent with the patient doing therapy. WILLOW Adamson Referring Provider: PERCY VARGAS [[id number]] Allergies As of Date: 08/01/2024 Noted Allergy Reaction CITRIC ACID 11/10/2021 14 - Other: See Comments Comments: Wears down lining of the mouth. Fruit and tomatoes CYMBALTA (DULOXETINE) 06/04/2009 14 - Other: See Comments Comments: Weight gain PENICILLINS 05/04/2009 4 - Hives SHELLFISH DERIVED 10/22/2017 11 - Vomiting Date Reviewed: 12/05/2023 Reviewed by: Davis Jesus RN - Fully Assessed Visit Diagnosis:Depression, major, recurrent, moderate (HCC) [F33.1] Order(s):PROVIDER ORDERED FOLLOW UP [[id number]] Order #: [id number]: 1 PROVIDER ORDERED FOLLOW UP [[id number]] Order #: [id number]: 1 FUTURE PROVIDER ORDERED FOLLOW UP [[id number]] Order #: [id number]: 1 FUTURE PROVIDER ORDERED FOLLOW UP [[id number]] Order #: [id number]: 1 FUTURE Prescriptions as of 08/01/2024 - lamoTRIgine (LAMICTAL) 100 mg tablet take 1 tablet by mouth daily - potassium chloride ER (KLOR-CON) 20 mEq tablet Take 1 tablet by mouth three times a day. - acetaminophen (TYLENOL) 500 mg tablet Take 2 tablets by mouth every 8 hours. - ascorbic acid, vitamin C, (VITAMIN C) 500 mg tablet Take 1 tablet by mouth two times a day with meals for 25 doses. - aspirin, enteric coated (ASPIRIN, ENTERIC COATED) 81 mg EC tablet Take 1 tablet by mouth two times a day for 28 days. - traMADol (ULTRAM) 50 mg tablet Take 50 mg by mouth two times a day. - buprenorphine (BUTRANS) 5 mcg/hour Apply 1 Patch as directed one time a week. - tiZANidine HCl (ZANAFLEX) 4 mg capsule Take 4 mg by mouth at bedtime as needed. - topiramate (TOPAMAX) 100 mg tablet Take 100 mg by mouth two times a day. - gabapentin (NEURONTIN) 600 mg tablet Take 600 mg by mouth two times a day. - levothyroxine 88 mcg cap Take 88 mcg by mouth daily before breakfast. - Cetirizine 10 mg cap Take 1 capsule by mouth once daily. - fluticasone (FLONASE) 50 mcg/actuation nasal spray Use 1 [place] in each nostril as needed. - rosuvastatin (CRESTOR) 5 mg tablet Take 10 mg by mouth once daily. - dexAMETHasone 0.1 % ophthalmic solution 3 drops 3 times a day to affected ear as needed vertigo - triamterene-hydroCHLOROth iazide (MAXZIDE-25) 37 (more content not included)... Normal [facility] CNOVon 07-18-2024 CNOV Office Visit (PSYLST ) ----- BRUNO PATTERSON ([id number]) 1970 F Date Time Provider Department 07/18/24 10:00 AM PERCY VARGAS PSYLST During your visit today, we recorded the following information about you: Percy Vargas LISW 07/18/2024 3:26 PM Signed GENERAL PSYCHOLOGY Session #: 80 (session count starts after PSYL NEW EVAL visit) Visit Type:The patient consented to a virtual visit and their location was confirmed. SUBJECTIVE: I have communicated my name and active licensure. The patient's identity and physical location were verified at the time of this visit. Either the patient or their legal outbound telemarketing representative has been informed of the risks and benefits of -- and alternatives to -- treatment through a remote evaluation and consents to proceed with the evaluation remotely. PATIENT DATA: Generalized Anxiety Disorder Scale (JET-7) 06/11/2024 07/01/2024 07/16/2024 JET - 7 SCORES Score 9 10 7 (0-4) minimal anxiety, (5-9) mild anxiety, (10-14) moderate anxiety, (15-21) severe anxiety Patient Health Questionnaire (PHQ-9) 05/29/2024 07/01/2024 07/16/2024 PHQ-9 Score 12 9 9 (0-4) minimal depression, (5-9) mild depression, (10-14) moderate depression, (15-19) moderately severe depression, (20-27) severe depression OBJECTIVE: Cognitive behavioral therapy Mental Status Exam: General/Sensorium: Alert and AND interactive - Appearance: Appears stated age - Eye Contact: Appropriate eye contact - Demeanor: Appropriately interactive - Motor Activity: Normal - Speech: Appropriate - Affect: Flat - Thought Process: Linear, [...] Therapy to self monitoring PROGRESS TO DATE: [facility] Progress: Progress Short Term Condition: Regressed GOALS/OBJECTIVES/INTERVEN TIONS: Patient to reduce symptoms of depression Patient to improve sleep hygiene Patient to improve self-care Patient to improve conflict resolution skills Patient to improve use of coping mechanisms Approximately 45 minutes were spent with the patient doing therapy. WILLOW Adamson Referring Provider: PERCY VARGAS [[id number]] Allergies As of Date: 07/18/2024 Noted Allergy Reaction CITRIC ACID 11/10/2021 14 - Other: See Comments Comments: Wears down lining of the mouth. Fruit and tomatoes CYMBALTA (DULOXETINE) 06/04/2009 14 - Other: See Comments Comments: Weight gain PENICILLINS 05/04/2009 4 - Hives SHELLFISH DERIVED 10/22/2017 11 - Vomiting Date Reviewed: 12/05/2023 Reviewed by: Davis Jesus RN - Fully Assessed Visit Diagnosis:Depression, major, recurrent, moderate (HCC) [F33.1] Order(s):PROVIDER ORDERED FOLLOW UP [[id number]] Order #: [id number]: 1 Prescriptions as of 07/18/2024 - lamoTRIgine (LAMICTAL) 100 mg tablet take 1 tablet by mouth daily - potassium chloride ER (KLOR-CON) 20 mEq tablet Take 1 tablet by mouth three times a day. - acetaminophen (TYLENOL) 500 mg tablet Take 2 tablets by mouth every 8 hours. - ascorbic acid, vitamin C, (VITAMIN C) 500 mg tablet Take 1 tablet by mouth two times a day with meals for 25 doses. - aspirin, enteric coated (ASPIRIN, ENTERIC COATED) 81 mg EC tablet Take 1 tablet by mouth two times a day for 28 days. - traMADol (ULTRAM) 50 mg tablet Take 50 mg by mouth two times a day. - buprenorphine (BUTRANS) 5 mcg/hour Apply 1 Patch as directed one time a week. - tiZANidine HCl (ZANAFLEX) 4 mg capsule Take 4 mg by mouth at bedtime as needed. - topiramate (TOPAMAX) 100 mg tablet Take 100 mg by mouth two times a day. - gabapentin (NEURONTIN) 600 mg tablet Take 600 mg by mouth two times a day. - levothyroxine 88 mcg cap Take 88 mcg by mouth daily before breakfast. - Cetirizine 10 mg cap Take 1 capsule by mouth once daily. - fluticasone (FLONASE) 50 mcg/actuation nasal spray Use 1 [place] in each nostril as needed. - rosuvastatin (CRESTOR) 5 mg tablet Take 10 mg by mouth once daily. - dexAMETHasone 0.1 % ophthalmic solution 3 drops 3 times a day to affected ear as needed vertigo - triamterene-hydroCHLOROth iazide (MAXZIDE-25) 37.5-25 mg per tablet Take 1 tablet by mouth once daily. - venlafaxine (EFFEXOR) 37.5 mg tablet Take 75 mg by mouth once daily. - aMILoride (MIDAMOR) 5 mg tablet Take 5 mg by mouth once daily. - ondansetron orally disintegrating (ZOFRAN ODT) 4 mg disintegrating tabl (more content not included)... Normal [facility] CNOVon 07-04-2024 CNOV Office Visit (PSYLST ) ----- BRUNO PATTERSON ([id number]) 1970 F Date Time Provider Department 07/04/24 10:00 AM PERCY VARGAS PSYLST During your visit today, we recorded the following information about you: Percy Vargas LISW 07/04/2024 4:39 PM Signed GENERAL PSYCHOLOGY Session #: 78 (session count starts after PSYL NEW EVAL visit) Visit Type:The patient consented to a virtual visit and their location was confirmed. SUBJECTIVE: I have communicated my name and active licensure. The patient's identity and physical location were verified at the time of this visit. Either the patient or their legal outbound telemarketing representative has been informed of the risks and benefits of -- and alternatives to -- treatment through a remote evaluation and consents to proceed with the evaluation remotely. PATIENT DATA: Generalized Anxiety Disorder Scale (JET-7) 05/29/2024 06/11/2024 07/01/2024 JET - 7 SCORES Score 12 9 10 (0-4) minimal anxiety, (5-9) mild anxiety, (10-14) moderate anxiety, (15-21) severe anxiety Patient Health Questionnaire (PHQ-9) 05/13/2024 05/29/2024 07/01/2024 PHQ-9 Score 9 12 9 (0-4) minimal depression, (5-9) mild depression, (10-14) moderate depression, (15-19) moderately severe depression, (20-27) severe depression OBJECTIVE: Cognitive behavioral therapy Mental Status Exam: General/Sensorium: Alert and AND interactive - Appearance: Appears stated age - Eye Contact: Appropriate eye contact - Demeanor: Appropriately interactive - Motor Activity: Normal - Speech: Appropriate - Mood: Reports feeling depressed and Anxious - Affect: Congruent with mood - Thought Process: Linear, logical, and goal-directed - Associations: Normal - Thought Content: Appropriate with no SI/HI/AVH - Perceptions: The patient does not appear internally stimulated - Cognition: Appears intact in regards to memory, attention/concentration, fund of knowledge and language skills - Insight: Good - Judgment: Good - ASSESSMENT: Patient worked on processing through her emotional symptoms. Patient worked on addressing family related problems DIAGNOSIS: PRIMARY: 1: Major depression recurrent moderate Other: None PROVISIONAL: None TREATMENT MODALITIES: Cognitive Behavioral Therapy to self monitoring PROGRESS TO DATE: [facility] Progress: Progress Short Term Condition: Progress GOALS/OBJECTIVES/INTERVEN TIONS: Patient to reduce symptoms of depression Patient to improve sleep hygiene Patient to improve self-care Patient to improve conflict resolution skills Patient to improve use of coping mechanisms Approximately 45 minutes were spent with the patient doing therapy. WILLOW Adamson Referring Provider: PERCY VAGRAS [[id number]] Allergies As of Date: 07/04/2024 Noted Allergy Reaction CITRIC ACID 11/10/2021 14 - Other: See Comments Comments: Wears down lining of the mouth. Fruit and tomatoes CYMBALTA (DULOXETINE) 06/04/2009 14 - Other: See Comments Comments: Weight gain PENICILLINS 05/04/2009 4 - Hives SHELLFISH DERIVED 10/22/2017 11 - Vomiting Date Reviewed: 12/05/2023 Reviewed by: Davis Jesus RN - Fully Assessed Visit Diagnosis:Depression, major, recurrent, moderate (HCC) [F33.1] Order(s):PROVIDER ORDERED FOLLOW UP [[id number]] Order #: [id number]: 1 Prescriptions as of 07/04/2024 - lamoTRIgine (LAMICTAL) 100 mg tablet take 1 tablet by mouth daily - potassium chloride ER (KLOR-CON) 20 mEq tablet Take 1 tablet by mouth three times a day. - acetaminophen (TYLENOL) 500 mg tablet Take 2 tablets by mouth every 8 hours. - ascorbic acid, vitamin C, (VITAMIN C) 500 mg tablet Take 1 tablet by mouth two times a day with meals for 25 doses. - aspirin, enteric coated (ASPIRIN, ENTERIC COATED) 81 mg EC tablet Take 1 tablet by mouth two times a day for 28 days. - traMADol (ULTRAM) 50 mg tablet Take 50 mg by mouth two times a day. - buprenorphine (BUTRANS) 5 mcg/hour Apply 1 Patch as directed one time a week. - tiZANidine HCl (ZANAFLEX) 4 mg capsule Take 4 mg by mouth at bedtime as needed. - topiramate (TOPAMAX) 100 mg tablet Take 100 mg by mouth two times a day. - gabapentin (NEURONTIN) 600 mg tablet Take 600 mg by mouth two times a day. - levothyroxine 88 mcg cap Take 88 mcg by mouth daily before breakfast. - Cetirizine 10 mg cap Take 1 capsule by mouth once daily. - fluticasone (FLONASE) 50 mcg/actuation nasal spray Use 1 [place] in each nostril as needed. - rosuvastatin (CRESTOR) 5 mg tablet Take 10 mg by mouth once daily. - dexAMETHasone 0.1 % ophthalmic solution 3 drops 3 times a day to affected ear as needed vertigo - triamterene-hydroCHLOROth iazide (MAXZIDE-25) 37.5-25 mg per tablet Take 1 tablet by mouth once daily. - venlafaxine (EFFEXOR) 37.5 mg tablet Take 75 mg by mouth once daily. - aMILoride (MIDAMOR) 5 mg tablet Take 5 mg by mouth once daily. (more content not included)... Normal [facility] Absolute lymphocyte countOrd ered By: Ky Henderson on 12-15-2023 Lymphocytes Auto (Unsp spec) [#/Vol] 1.51 10*3/uL 0.83-4.51 [facility] Automated lymphocyte count a s percentage of total leukocytesOrdered By: Ky Henderson on 12-15-2023 Lymphocytes/100 WBC Auto (Unsp spec) 17.3 % 19-41 [facility] Basophil percentageOrdered B y: Ky Henderson on 12-15-2023 Basophil percentage 8.9 g/dL 12.0-15.0 [facility] Basophil percentage 104 mg/dL 74-106 [facility] Basophil percentage 139 mmol/L 136-145 [facility] Basophil percentage 3.8 mmol/L 3.5-5.1 [facility] Basophil percentage 111 mmol/L 98-107 [facility] Basophils (Bld) [#/Vol] 8.7 10*3/uL 4.4-11.0 [facility] Basophils (Bld) [#/Vol] 6.0 10*3/uL 2.0-7.7 [facility] Basophils/100 WBC (Bld) 68.7 % 47-70 [facility] Basophils/100 WBC (Bld) 6.1 % 0-10 [facility] Basophils/100 WBC (Bld) 5.7 % 0-5 [facility] Basophils/100 WBC (Bld) 0.8 % 0-1 [facility] Determination of erythrocyte mean corpuscular volume (MCV)Ordered By: Ky Henderson on 12-15-2023 MCV (RBC) [Entitic vol] 91.4 fL 81-99 [facility] Erythrocyte distribution wid th ratioOrdered By: Ky Henderson on 12-15-2023 Erythrocyte distribution width (RBC) [Ratio] 15.7 % 11.6-14.6 [facility] Erythrocyte distribution wid th standard deviationOrdered By: Ky Henderson on 12-15-2023 Erythrocyte distribution width (RBC) [Entitic vol] 51.6 fL 35.1-43.9 [facility] Hematocrit Auto (Bld) [Volum e fraction]Ordered By: Ky Henderson on 12-15-2023 Hematocrit (Bld) [Volume fraction] 28.7 % 37-47 [facility] Immature granulocytes/100 WB C Auto (Bld)Ordered By: Ky Henderson on 12-15-2023 Immature granulocytes/100 WBC (Bld) 1.400 % 0.0-0.9 [facility] No Panel InformationOrdered By: Ky Henderson on 12-15-2023 28.3 pg 27.0-32.0 [facility] 31.0 g/dL 32-36 [facility] 552 K/mm3 150-450 [facility] 9.5 fl 6.2-12.0 [facility] 0 % 0-5 [facility] 94 mL/min >60 [facility] 113 mL/min >60 [facility] 109.04 ml/min [facility] 24.4 RATIO 10-20 [facility] 23.0 mmol/L 21.0-32.0 [facility] RBC Auto (Bld) [#/Vol]Ordere d By: Ky Henderson on 12-15-2023 RBC (Bld) [#/Vol] 3.14 10*6/uL 4.2-5.4 [facility] Serum or plasma calcium ernie urement (mass/volume)Ordered By: Ky Henderson on 12-15-2023 Calcium [Mass/Vol] 8.7 mg/dL 8.5-10.1 [facility] Serum or plasma creatinine m easurement (mass/volume)Ordered By: Ky Henderson on 12-15-2023 Creatinine [Mass/Vol] 0.70 mg/dL 0.55-1.02 [facility] Serum or plasma urea nitroge n measurement (mass/volume)Ordered By: yK Henderson on 12-15-2023 Urea nitrogen [Mass/Vol] 17 mg/dL 7-18 [facility] Thin prep Papanicolaou smear with manual screeningOrdered By: Ky Henderson on 12-15-2023 Thin prep Papanicolaou smear with manual screening 5 5-15 [facility] Basic metabolic 2000 panelon 12-07-2023 Anion gap [Moles/Vol] 8 mmol/L Low 9-18 [facility] Comment on above: Order Comment: Speci men Type: BLOOD SPECIMEN Ordering Facility: [facility] Address: [address] [place] [address] Performed By: #### 2 4321-2 #### [facility] CLIA [id number] [address] [place] [address] [place] Calcium [Mass/Vol] 7.9 mg/dL Low 8.5-10.2 [facility] Comment on above: Order Comment: Speci men Type: BLOOD SPECIMEN Ordering Facility: [facility] Address: [address] [place] [address] Performed By: #### 2 4321-2 #### [facility] CLIA [id number] [address] [place] [address] [place] Chloride [Moles/Vol] 109 mmol/L High 97-105 [facility] Comment on above: Order Comment: Speci men Type: BLOOD SPECIMEN Ordering Facility: [facility] Address: [address] [place] [address] Performed By: #### 2 4321-2 #### [facility] CLIA [id number] [address] [place] [address] [place] CO2 [Moles/Vol] 22 mmol/L Normal 22-30 [facility] Comment on above: Order Comment: Speci men Type: BLOOD SPECIMEN Ordering Facility: [facility] Address: [address] [place] [address] Performed By: #### 2 4321-2 #### [facility] CLIA [id number] [address] [place] [address] [place] Creatinine [Mass/Vol] 0.65 mg/dL Normal 0.58-0.96 [facility] Comment on above: Order Comment: Speci men Type: BLOOD SPECIMEN Ordering Facility: [facility] Address: [address] [place] [address] Performed By: #### 2 4321-2 #### [facility] CLIA [id number] [address] [place] [address] [place] Creatinine and Glomerular filtration rate.predicted panel (S/P/Bld) 105 mL/min/1.73m??? Normal >=60 [facility] Comment on above: Order Comment: Dorina pereira Type: BLOOD SPECIMEN Ordering Facility: [facility] Address: [address] [place] [address] Result Comment: [facility] Glomerular Filtration Rate (eGFR) is calculated using the 2020 CKD-EPI creatinine equation. This equation utilizes serum creatinine, sex, and age as parameters. The creatinine assay has traceable calibration to isotope dilution-mass spectrometry. Refer to KDIGO guidelines for clinical interpretation. In patients with unstable renal function, e.g. those with acute kidney injury, the eGFR may not accurately reflect actual GFR. Performed By: #### 2 4321-2 #### [facility] CLIA [id number] [address] [place] [address] [place] Glucose [Mass/Vol] 91 mg/dL Normal 74-99 [facility] Comment on above: Order Comment: Dorina pereira Type: BLOOD SPECIMEN Ordering Facility: [facility] Address: [address] [place] [address] Result Comment: The [place] Diabetes Association (ADA) provides guidance for cutoff values for fasting glucose and random glucose. The ADA defines fasting as no caloric intake for at least 8 hours. Fasting plasma glucose results between 100 to 125 mg/dL indicate increased risk for diabetes (prediabetes). Fasting plasma glucose results greater than or equal to 126 mg/dL meet the criteria for diagnosis of diabetes. In the absence of unequivocal hyperglycemia, results should be confirmed by repeat testing. In a patient with classic symptoms of hyperglycemia or hyperglycemic crisis, random plasma glucose results greater than or equal to 200 mg/dL meet the criteria for diagnosis of diabetes. Reference: Standards of Medical Care in Diabetes 2016, [place] [employer] Association. Diabetes Care. 2016.39(Suppl 1). Performed By: #### 2 4321-2 #### [facility] CLIA [id number] [address] [place] [address] [place] Potassium [Moles/Vol] 3.4 mmol/L Low 3.7-5.1 [facility] Comment on above: Order Comment: Dorina pereira Type: BLOOD SPECIMEN Ordering Facility: [facility] Address: [address] [place] [address] Performed By: #### 2 4321-2 #### [facility] CLIA [id number] [address] [place] [address] [place] Sodium [Moles/Vol] 139 mmol/L Normal 136-144 [facility] Comment on above: Order Comment: Speci men Type: BLOOD SPECIMEN Ordering Facility: [facility] Address: [address] [place] [address] Performed By: #### 2 4321-2 #### [facility] CLIA [id number] [address] [place] [address] [place] Urea nitrogen [Mass/Vol] 11 mg/dL Normal 7-21 [facility] Comment on above: Order Comment: Speci men Type: BLOOD SPECIMEN Ordering Facility: [facility] Address: [address] [place] [address] Performed By: #### 2 4321-2 #### [facility] CLIA [id number] [address] [place] [address] [place] CBC panel Auto (Bld)on 12-06 Erythrocyte distribution width (RBC) [Ratio] 15.2 % High 11.5-15.0 [facility] Comment on above: Order Comment: Speci men Type: BLOOD SPECIMENOrdering Facility: [facility] Address: [address] [place] [address] Performed By: #### 5 8410-2 ####[facility] [id number] [place] [address] [place] Hematocrit (Bld) [Volume fraction] 28.3 % Low 36.0-46.0 [facility] Comment on above: Order Comment: Speci men Type: BLOOD SPECIMENOrdering Facility: [facility] Address: [address] [place] [address] Performed By: #### 5 8410-2 ####[facility] [id number] [place] [address] [place] Hemoglobin (Bld) [Mass/Vol] 9.0 g/dL Low 11.5-15.5 [facility] Comment on above: Order Comment: Speci men Type: BLOOD SPECIMENOrdering Facility: [facility] Address: [address] [place] [address] Performed By: #### 5 8410-2 ####[facility] [id number] [place] [address] [place] MCH (RBC) [Entitic mass] 29.1 pg Normal 26.0-34.0 [facility] Comment on above: Order Comment: Speci men Type: BLOOD SPECIMENOrdering Facility: [facility] Address: [address] [place] [address] Performed By: #### 5 8410-2 ####[facility] [id number] [address] [place] MCHC (RBC) [Mass/Vol] 31.8 g/dL Normal 30.5-36.0 [facility] Comment on above: Order Comment: Speci men Type: BLOOD SPECIMENOrdering Facility: [facility] Address: [address] [place] [address] Performed By: #### 5 8410-2 ####[facility] [id number] [place] [address] [place] MCV (RBC) [Entitic vol] 91.6 fL Normal 80.0-100.0 [facility] Comment on above: Order Comment: Speci men Type: BLOOD SPECIMENOrdering Facility: [facility] Address: [address] [place] [address] Performed By: #### 5 8410-2 ####[facility] [id number] [address] [place] Nucleated RBC (Bld) [#/Vol] 10*3/uL Normal <0.01 [facility] Comment on above: Order Comment: Speci men Type: BLOOD SPECIMENOrdering Facility: [facility] Address: [address] [place] [address] Performed By: #### 5 8410-2 ####[facility] [id number] [place] [address] [place] Platelet mean volume (Bld) [Entitic vol] 10.0 fL Normal 9.0-12.7 [facility] Comment on above: Order Comment: Speci men Type: BLOOD SPECIMENOrdering Facility: [facility] Address: [address] [place] [address] Performed By: #### 5 8410-2 ####[facility] LABORATORYCLIA [id number] [place] [id number] [place] Platelets (Bld) [#/Vol] 230 10*3/uL Normal 150-400 [facility] Comment on above: Order Comment: Speci men Type: BLOOD SPECIMENOrdering Facility: [facility] Address: [address] [place] [address] Performed By: #### 5 8410-2 ####[facility] LABORATORYCLIA [id number] [place] [address] [place] RBC (Bld) [#/Vol] 3.09 10*6/uL Low 3.90-5.20 [facility] Comment on above: Order Comment: Speci men Type: BLOOD SPECIMENOrdering Facility: [facility] Address: [address] [place] [address] Performed By: #### 5 8410-2 ####[facility] LABORATORYCLIA [id number] [place] [id number] [place] WBC (Bld) [#/Vol] 12.61 10*3/uL High 3.70-11.00 [facility] Comment on above: Order Comment: Speci men Type: BLOOD SPECIMENOrdering Facility: [facility] Address: [address] [place] [address] Performed By: #### 5 8410-2 ####[facility] LABORATORYCLIA [id number] [place] [id number] [place] CNDSon 12-07-2023 CNDS HNO ID: [id number] Author: SIMRAN DILL MD Service: Orthopaedic Surgery Author Type: Physician Image Consultant Type: Discharge Summary Filed: 12/08/2023 09:03 Note Text: ----- Attestation signed by Simran Dill MD at 12/08/2023 9:03 AM Agree with the above ----- DISCHARGE SUMMARY PATIENT NAME: Bruno Patterson ADMISSION DATE: 12/04/2023 DISCHARGE DATE: 12/07/2023 Attending Physician: Simran Dill MD Code Status: Not on file Highest Readmission Risk Score: 15 The 30 day readmissions risk score is derived from an internally validated risk model which evaluates patient level characteristics, utilization history, medication orders and lab results up until the day of discharge. Patients with a score of 40 or above are considered highest risk for readmission. Specific patient level drivers will be listed at the bottom of the summary. Reason for Hospitalization: Principal Problem: History of total hip arthroplasty, right (POA: Yes) Active Problems: Primary osteoarthritis of right hip (POA: Unknown) Resolved Problems: * No resolved hospital problems. * Admitting Diagnosis: Hip Advanced Degenerative Joint Disease Discharge Diagnosis: Same as admitting Operations During Hospitalization: Right total hip arthroplasty Procedures During Hospitalization: Hip Total Arthroplasty Consultations: Physical Therapy Case Management Internal Medicine Pain Management Treatment Team: Attending Provider: Simran Dill MD Consulting: Tru Berry MD Hospital Course: The patient is a 53 year old female who has been followed by Dr. Simran Dill MD in clinic for right hip primary osteoarthritis. It was determined she would benefit from surgery. The procedure, its risks, benefits, and potential complications were discussed in detail with the patient prior to surgery. Understanding of all topics was conveyed by the patient, and consent was given for surgery. The patient was electively admitted on 12/04/2023. Surgery was scheduled and on 12/04/2023 she underwent a Right total hip arthroplasty with general anesthesia. The procedure was tolerated well and she was sent to the post operative recovery room in stable condition, where she also did well. Postoperative x-rays in the recovery room showed right hip prosthesis in proper alignment without evidence of fracture or dislocation. She was subsequently sent to her hospital room for postoperative management. Once on the floor her postoperative course was unremarkable and she did well. Her diet was advanced which she tolerated. Her pain was well controlled on oral pain medication. She worked with Physical and Occupational Therapy starting on POD#1 who recommended she be discharged Longterm Facility. Her dressing remained clean dry and intact throughout her stay. She remained afebrile with stable vital signs throughout her stay. She was stable for discharge to Longterm Facility on POD#3. Complete and comprehensive discharge instructions were provided to the patient as well as necessary prescriptions. The patient had no further questions and was advised to call with any questions, concerns, or problems. Transitions of Care Critical Issues: NEW BASELINE FOR PATIENT: s/p Right total hip arthroplasty Patient was hemodynamically stable postoperatively. Discharge Antibiotics: Prior to surgery the patient was treated with antibiotics and continued with antibiotics 24 hours postoperatively Transfers: PACU and then to the hospital surgical floor when PACU criteria was met. DVT Prophylaxis: Aspirin 81 mg twice daily x 28 days total Pain Control: Oral narcotics Complications: Continued throughout the hospital course without complications. LABS AND PROCEDURES PENDING AT DISCHARGE: No pending results. Relevant labs included: Recent Labs 12/05/23 0536 HB 9.6* HCT 29.9* CBC, Coags, BMP, Mg, Phos Recent Labs 12/07/23 0454 12/06/23 0505 12/05/23 0536 WBC 12.61* 12.48* 15.14* HB 9.0* 9.3* 9.6* HCT 28.3* 29.5* 29.9* PLT 230 214 223 NA 139 142 138 K 3.4* 3.4* 3.3* CHLOR 109* 110* 105 CO2 22 21* 21* BUN 11 9 12 CREAT 0.65 0.68 0.77 GLUC 91 94 129* CA 7.9* 7.8* 8.3* Patient Condition @ Discharge: Stable Discharge Disposition: Longterm Facility Discharge Physical Exam: VITAL SIGNS: BP 105/68 Pulse 76 Temp 36.7 ?C (98.1 ?F) (Oral) Resp 20 Ht 165.1 cm (5' 5) Wt 100.5 kg (221 lb 9 oz) LMP 11/19/2022 (Approximate) SpO2 96% BMI 36.87 kg/m? Sitting upright in chair, NAD AANDOx3 Dressing dry and intact No LE sensory deficits SILT BLE's Cap refill <3 secs LE's warm to touch Has AROM of bilat LE's, ankles, toes No surgical site hematoma or hemarthrosis No Bilat calf tenderness to manual compression BLE's Bilat (more content not included)... [facility] NURSING PROGon 12-07-2023 NURSING PROG HNO ID: [id number] Author: MELONY LAI, RN Service: Nursing Author Type: Registered Nurse Type: Nursing Progress Note Filed: 12/07/2023 17:53 Note Text: Nurse to nurse given to [facility]. I spoke to [facility] to check on the transport time, I was informed that the time was 1929. Patient is aware of the change. [facility] THERAPY NTon 12-07-2023 THERAPY NT HNO ID: [id number] Author: HAILEY CARNES PT Service: Physical Therapy Author Type: Staff Respiratory Therapist Type: Therapy (PT/OT/Speech/Resp) Filed: 12/07/2023 14:51 Note Text: ----- Attestation signed by Hailey Carnes PT at 12/07/2023 2:51 PM I reviewed and agree with the documentation corresponding to this therapy visit. SIGNATURE: Hailey Carnes PT DATE: December 07, 2023 TIME: 2:51 PM ----- PHYSICAL THERAPY MISSED VISIT SERVICE DATE: 12/07/2023 SERVICE TIME: 1355 ROOM: [place] [address] Patient not seen due to (pt being d/c). SIGNATURE: Radha Luna PTA PATIENT NAME: Bruno Patterson DATE: December 07, 2023 TIME: 2:03 PM [facility] THERAPY NT HNO ID: [id number] Author: ALLYSON STANLEY PT, DPT Service: Physical Therapy Author Type: Staff Respiratory Therapist Type: Therapy (PT/OT/Speech/Resp) Filed: 12/07/2023 13:03 Note Text: ----- Attestation signed by Allyson Stanley PT, DPT at 12/07/2023 1:03 PM I reviewed and agree with the assessment as documented above. SIGNATURE: Allyson Stanley PT, DPT DATE: December 07, 2023 TIME: 1:03 PM ----- Physical Therapy Treatment Summary SERVICE DATE: 12/07/2023 SERVICE TIME: 849 to 929 ROOM: [place] [address] PT 6 Clicks Score: 13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 pertinent labs, and test results. This contains updated information obtained withi (more content not included)... [facility] BRIEF OP NOTon 12-04-2023 BRIEF OP NOT HNO ID: [id number] Author: SIMRAN DILL MD Service: Orthopaedic Surgery Author Type: Physician Type: Brief Op Note Filed: 12/04/2023 14:16 Note Text: BRIEF OPERATIVE / PROCEDURE NOTE LOG ID: [id number] SURGERY/PROCEDURE DATE: 12/04/2023 INCISION/PROCEDURE START TIME: 11:58 AM INCISION CLOSE/PROCEDURE END TIME: SURGEON(S)/PROCEDURALIST( S) AND SALESPERSON PARTS(S): Surgeon(s) and Role: * Simran Dill MD - Primary Physician Image Consultant: Angel Scherer PA-C; Radha Lo PA-C SURGERY/PROCEDURE(S): ` ANESTHESIA: General FINDINGS: djdr hip ESTIMATED BLOOD LOSS: 350 mls SPECIMENS: bone COMPLICATIONS: None CLOSURE TECHNIQUE: Primary PRE-OP/PRE-PROCEDURE DIAGNOSIS: djd POST-OP/POST-PROCEDURE DIAGNOSIS: Same as Preop SIGNATURE: Simran Dill MD PATIENT NAME: Bruno Patterson DATE: December 04, 2023 TIME: 2:13 PM [facility] CONSULTon 12-04-2023 CONSULT HNO ID: [id number] Author: TRU BERRY MD Service: General Internal Medicine Author Type: Physician Type: Consults Filed: 12/05/2023 20:26 Note Text: CONSULT INITIAL - INTERNAL MEDICINE PATIENT NAME: Bruno Patterson SERVICE DATE: December 04, 2023 REASON FOR CONSULT: Medical Management REQUESTING PHYSICIAN: Simran Dill MD PRIMARY CARE PHYSICIAN: Logan Haddad MD ASSESSMENT AND PLAN S/p Right THR on 12/04/23 Chronic back pain with spinal stimulator HTN GERD HLD Obesity Depression Hypothyroid Plan: resume usual meds/dvt prophylaxis/labs in am/PT eval/IS/monitor bowel function Seen in PACU PT eval Encourage IS Awaits bowel function return Parameter on BP med SUBJECTIVE HISTORY OF PRESENT ILLNESS: Bruno Patterson is an 53 year old female who presents for R THR tolerated it well. Now c/o severe pain. HISTORIES PAST MEDICAL HISTORY Diagnosis Date Bulging lumbar disc and cervical DDD (degenerative disc disease), cervical GERD (gastroesophageal reflux disease) HLD (hyperlipidemia) Hypertension IBS (irritable bowel syndrome) Marijuana use 11/19/2023 Meniere disease Migraines Non-functioning tympanostomy tube 04/21/2013 Obese Otalgia of right ear 04/21/2013 Perforation of right tympanic membrane 07/07/2013 Rhinitis 04/21/2013 Sinusitis 04/21/2013 FAMILY HISTORY Problem Relation Age of Onset Asthma Mother Hypertension Mother Heart disease Mother Diabetes Father Cancer Father Colon Heart disease Brother Anesthesia Problems No Family History PAST SURGICAL HISTORY Procedure Laterality Date BACK SURGERY HX 08/2023 Spinal fusion COLONOSCOPY 11/10/2022 repeat in 10 years S SPINAL CORD STIMULATOR, back and neck TOTAL HIP REPLACEMENT Left Social History Tobacco Use Smoking status: Former Packs/day: 0.75 Years: 25.00 Additional pack years: 0.00 Total pack years: 18.75 Types: Cigarettes Quit date: 2021 Years since quittin.3 Smokeless tobacco: Never Vaping Use Vaping Use: current everyday user Start date: 11/18/2021 Substances: Nicotine, THC, Nicotine daily, THC occasionally Substance Use Topics 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 Drug use: Yes Types: Marijuana MEDICATIONS: traMADol (ULTRAM) 50 mg tablet, Take 50 mg by mouth two times a day., Disp: , Rfl: , 12/03/2023 buprenorphine (BUTRANS) 5 mcg/hour, Apply 1 Patch as directed one time a week., Disp: , Rfl: , Past Week tiZANidine HCl (ZANAFLEX) 4 mg capsule, Take 4 mg by mouth at bedtime as needed., Disp: , Rfl: , 12/03/2023 topiramate (TOPAMAX) 100 mg tablet, Take 100 mg by mouth two times a day., Disp: , Rfl: , 12/04/2023 gabapentin (NEURONTIN) 600 mg tablet, Take 600 mg by mouth two times a day., Disp: , Rfl: , 12/04/2023 levothyroxine 88 mcg cap, Take 88 mcg by mouth daily before breakfast., Disp: , Rfl: , 12/04/2023 Cetirizine 10 mg cap, Take 1 capsule by mouth once daily., Disp: , Rfl: , Past Week lamoTRIgine (LAMICTAL) 100 mg tablet, take 1 tablet by mouth daily, Disp: 30 tablet, Rfl: 4, 12/03/2023 rosuvastatin (CRESTOR) 5 mg tablet, Take 10 mg by mouth once daily., Disp: , Rfl: , 12/04/2023 triamterene-hydroCHLOROth iazide (MAXZIDE-25) 37.5-25 mg per tablet, Take 1 tablet by mouth once daily., Disp: 90 tablet, Rfl: 3, 12/03/2023 celecoxib (CELEBREX) 200 mg capsule, Take 200 mg by mouth once daily., Disp: , Rfl: , Past Week venlafaxine (EFFEXOR) 37.5 mg tablet, Take 75 mg by mouth once daily., Disp: , Rfl: , 12/03/2023 aMILoride (MIDAMOR) 5 mg tablet, Take 5 mg by mouth once daily., Disp: , Rfl: , 12/03/2023 potassium chloride ER (K-DUR, KLOR-CON) 20 mEq tablet, Take 1 tablet by mouth twice daily. (Patient taking differently: Take 20 mEq by mouth three times a day.), Disp: 60 tablet, Rfl: 0, 12/03/2023 Omeprazole 40 mg capsule, Take 40 mg by mouth once daily., Disp: , Rfl: 1, 12/04/2023 MULTIVITAMIN TAB, Take 1 tablet by mouth once daily., Disp: , Rfl: 0, Past Week fluticasone (FLONASE) 50 mcg/actuation nasal spray, Use 1 [place] in each nostril as needed., Disp: , Rfl: , Unknown rizatriptan (MAXALT QUALITY ASSURANCE CLERK) 5 mg disintegrating tablet, Take 1 tablet by mouth as needed. May repeat in 2 hours if needed.dont exceed 10 mg in 24 hours (Patient not taking: Reported on 11/19/2023), Disp: 12 tablet, Rfl: 3, Unknown dexAMETHasone 0.1 % ophthalmic solution, 3 drops 3 times a day to affected ear as needed vertigo (Patient taking differently: as needed. 3 drops 3 times a day to affected ear as needed vertigo), Disp: 10 mL, Rfl: 4, Unknown acetaminophen (TYLENOL) 325 mg tablet, Take 2 tablets by mouth every 4 hours as needed for Pain (post op total joint pain)., Disp: 30 tablet, Rfl: 1, Unknown senna-docusate (SENOKOT-S) 8.6-50 mg per tablet, Take 2 tablets by mouth twice daily. (Patient taking differently: Take 2 tablets by mouth as needed.), Disp: 30 tablet, Rfl: 1, Unknown ondansetron orally dis (more content not included)... [facility] NURSING PROGon 12-04-2023 NURSING PROG HNO ID: [id number] Author: DMAI MIRAMONTES RN Service: Nursing Author Type: Registered Nurse Type: Nursing Progress Note Filed: 12/05/2023 06:35 Note Text: 1922- Assumed patient care,bedside report given from off going RN.Pain board reviewed. Bed alarm on, safety maintained. Reminded patient to call for assistance. Call light within reach. Denies further needs at this time 2052- spoke on the phone w/ Dr. Dill for verbal direction for pt notr to use external spinal stimulator and verbal order w/ red-back for bolus of 250 ml/30min due to BP of 95/66. 2105- Pt safely, medicated per MAR documentation. Assessment as charted.Pt is AANDOx3. PERRLA. Pt denies any SOB,chest pain,dizziness, headache, nausea/vomiting,numbness/ tingling. All extremities are pink, warm, mobile, w/ brisk cap refill and pulses palpable. Pt has foam silver dressing to R hip; clean, dry and intact. no redness, swelling, bruising around the area. Distal pulses remain intact and foot without numbness, tingling or discoloration. Purple abductor in place between the legs.Pt abdomen is non-distended, soft and without pain. Bowel sounds are normo-active and Pt is passing gas. Pt unable to urinate post-op at this time. Heart sounds regular, lung sounds diminished throughout. IV is patent and dressing intact. 2246- Vital signs stable at this time. 0014- Bladder scan 390 ml 0100- Patient observed asleep in bed with chest rise. Respirations regular and unlabored. Bed alarm is on, safety maintained. 0300- Prior assessment unchanged. 0612- Straight cath attempted x2; Pt unable to tolerate procedure and clenched down too much to advance catheter. Pt placed on bedpan instead 0630- Pt able to void 430 ml via bedpan [facility] NURSING PROG HNO ID: [id number] Author: DAVIS JESUS RN Service: ? Author Type: Registered Nurse Type: Nursing Progress Note Filed: 12/04/2023 18:44 Note Text: 1825- Assumed care of pt from PACU. Pt does not appear to be in distress. Pt requests to use spinal cord stimulator. Message sent to Dr. Dill seeking clarification and an order for use. Education provided station installation supervisor light and pt oriented to room and phone. Verbalized understanding. Pt denies any further needs at this time. Safety measures in place upon leaving room. [facility] NURSING PROG HNO ID: [id number] Author: CHANTAL PIEDRA RN Service: ? Author Type: Registered Nurse Type: Nursing Progress Note Filed: 12/04/2023 17:56 Note Text: Other: arrived via cart to pacu from or, vss, resp easy, nonlabored, abd large, round and soft, abductor pillow btw legs, c/o pain 10/10 on arrival- anesthesia n tavo aware and medicating on arrival, called PACU KATIE Sharlene to bedside- aware of pain level- she will order additional meds , see npr 1500 dr berry's PA Aranza Iglesias, at bedside conferring with PACU KATIE Sharlene concerning pain meds ordered 1502 ordered toradol given 1504 medicated with ordered fentanyl 1507 ordered robaxin given 1513 eyes closed, sonorous r's noted 1520 o2 changed to 4l nc 1527 ordered gabapentin given 1530 sats maintained on 4l nc, o2 decreased to 2l nc, remedicated for pain 1540 stat rt hip xray done 1545 ordered buprenorphine patch applied 1600 o2 dc'd 1638 sat down to 88% , rises with db to 96% , then falls again when sleeping, o2 2l nc resumed 1645 c/o pain increasing again 8/10, pt taking pudding so she can have oxycodone with food in her stomach 1653 ordered oxycodone given for increasing pain 1655 remedicated with ordered dilaudid 1752 transferred to [facility] with belongings [facility] OPERATIVE NOon 12-04-2023 OPERATIVE NO HNO ID: [id number] Author: SIMRAN DILL MD Service: Orthopaedic Surgery Author Type: Physician Type: Operative Report Filed: 12/08/2023 09:03 Note Text: [facility] - Operative Report BRUNO PATTERSON : 1970 AGE: 53. SEX: F PATIENT TYPE: I HOSP SVC: ORTS LOCATION: [facility] ATTENDING PHYSICIAN: Simran Dill MD CSN NUMBER: [id number] DATE OF SURGERY/PROCEDURE: 12/04/2023 INCISION/PROCEDURE START TIME: 11:58 AM INCISION CLOSE/PROCEDURE END TIME: 2:10 PM PREOPERATIVE DIAGNOSIS: Degenerative joint disease, right hip. POSTOPERATIVE DIAGNOSIS: Degenerative joint disease, right hip. SURGEON: Simran Dill MD SALESPERSON PARTS: 1. Angel Scherer, PAC. 2. Radha Lo, PAC. It should be mentioned that no available resident or fellow was present; therefore, Angel Scherer and Radha Lo assisted me during the entire operation and their involvement included positioning of the patient, surgical site preparation, draping, anatomical exposure and visualization, wound closure and application of dressing under my supervision. SURGERY/PROCEDURE: Right total hip replacement using [place] total hip system with a #3 femoral component, Accolade stem 127 degree neck angle and a +0 neck length and a 40 mm Biolox ball. 52 mm cup multihole with a 15 mm dome screw and a 27 mm patella button. ANESTHESIA: General ESTIMATED BLOOD LOSS: 300 mL with 150 mL retransfused. INDICATIONS FOR SURGERY: The patient had been having ongoing pain and discomfort in the right hip that had not gotten better with conservative management. She recently underwent a lumbar fusion, which really did not help her pain. We felt that the source of the pain was her hip which was quite arthritic. The plan was to proceed with surgical intervention. I did discuss with her the details, risks, and benefits of the surgery. She understood and wished to proceed. Risks included, but were not exclusive to infection, blood clot, anesthetic complications, ongoing pain, the need for further surgery, etc. DESCRIPTION OF PROCEDURE: The patient was first seen by me in the preop area. I did identify the proper limb, proper procedure, proper patient. I marked the limb. Patient was then taken to the operating room. Once in the operating room, a formal sign-in was performed. The patient was then put to sleep because spinal anesthetic was not an option due to her previous back surgery. [place] catheter was placed and the patient was then positioned in the lateral decubitus position with the right hip up. Prepping and draping of the extremity was performed. All bony prominences were padded. We then did a time-out prior to making our incision. A posterolateral incision was made going through skin and subcutaneous tissue. This was followed by incision of the fascia. Charnley C retractor was placed. At this time, we could visualize the right hip. External rotators were tagged and retracted. Capsulotomy was performed and the capsule was tagged and retracted. We then dislocated the hip. A femoral neck cut was made. Both the femoral head and the socket demonstrated advanced arthritic changes. At this time, we turned our attention to the socket. The femur was retracted anteriorly. A Steinmann pin was placed superiorly. Posteriorly, we placed Weitlaner type retractor and inferiorly a Cobra retractor with good visualization. We began sequential reaming starting with a 43 reamer and reaming all the way up to 52 mm. At this time, we proceeded to place the trial socket which was 52, which fit well. We then proceeded to place the actual component which was a 52 mm multihole acetabular cut. We secured it superiorly with a single dome screw, although the press-fit was quite tight without the screw. A polyethylene liner was placed. This was 0 degrees and 40 mm. At this time, we turned our attention to the femur and we began progressive broaching starting with a #0 broach and going up to a #3. We then trialed with a 127-degree neck angle and a +0 ball and the ball was 40 mm. The hip was dislocated. The hip flexed to about 120 degrees, internally rotated to nearly 90 degrees without dislocating, externally rotated to 40 degrees, also without dislocating and abducted to 40 degrees. Leg lengths were equal. We confirmed this with intraoperative image intensification. We also measured leg lengths both clinically and on x-ray and they appeared to be equal. At this time, we proceeded to place the final components on the femoral side that being a #3 Accolade stem with 127-degree neck angle and a 40 mm Biolox ball. Range of motion was the same. The hip was stable. We then proceeded to close the external rotators through drill holes in the greater trochanter along with closure of the capsule. The gluteus ryan tendon which was cut during the exposure was repaired. At this time, we proceeded to close the fascia with #1 S (more content not included)... [facility] SURGICAL PATHOLOGYon 024 CASE REPORT [facility] Comment on above: Order Comment: Speci men Type: TISSUE SPECIMENOrdering Facility: [facility] Address: [address] [place] [address] Result Comment: Surg [facility] Pathology Report Case: [id number] Authorizing Provider: Simran Dill MD Collected: 12/04/2023 12:27 PM Ordering Location: [facility] Received: 12/04/2023 02:47 PM Surgical Services Pathologist: Tr Jones MD Specimen: Hip, Right, Arthroplasty, Right Hip bone Performed By: #### S ####[facility] LABCLIA [id number] [address] OF [place] CLINICAL HISTORY Normal [facility] Comment on above: Order Comment: Speci men Type: TISSUE SPECIMENOrdering Facility: [facility] Address: [address] [place] [address] Result Comment: Pre- op diagnosis: Primary osteoarthritis of right hip [M16.11] Performed By: #### S ####[facility] LABCLIA [id number] [address] DIAGNOSIS COMMENT Features suggestive of a subchondral insufficiency fracture are also present. [facility] Comment on above: Order Comment: Speci men Type: TISSUE SPECIMENOrdering Facility: [facility] Address: [address] [place] [address] Performed By: #### S ####[facility] LABCLIA [id number] [address] FINAL DIAGNOSIS [facility] Comment on above: Order Comment: Speci men Type: TISSUE SPECIMENOrdering Facility: [facility] Address: [address] [place] [address] Result Comment: Righ t hip, arthroplasty: - Degenerative joint disease. See comment. - Fragments of synovium with reactive changes. Performed By: #### S ####[facility] LABCLIA [id number] [address] OF [place] FINAL PERFORMING LAB Normal [facility] Comment on above: Order Comment: Speci men Type: TISSUE SPECIMENOrdering Facility: [facility] Address: [address] [place] [address] Result Comment: Diag nostic interpretation performed at [facility], [address] [place] [address] CLIA# [id number] Composition Mixer: Richard Camarena M.D. Performed By: #### S ####[facility] [id number] [address] [place] GROSS DESCRIPTION [facility] Comment on above: Order Comment: Speci men Type: TISSUE SPECIMENOrdering Facility: [facility] Address: [address] [place] [address] Result Comment: A. H ip, Right, Arthroplasty Received in formalin labeled right hip bone is a femoral head measuring 4.8 x 4.7 x 4.7 cm. The articular surface demonstrates roughening, eburnation and osteophyte formation. Sectioning with the bone saw reveals hard trabecular bone beneath eburnated areas. A segment of adams-varela fibrous soft tissue present measuring 1.7 x 1.7 x 0.5 cm. The soft tissue is fibrotic in consistency. Industrial Cleaning Technician sections are submitted as follows: A1 soft tissue A2 eburnated and noneburnated bone following decalcification Gross examination performed at [facility], [address] [place] [address] CLIA# [id number] [facility] 12/05/23 12:13 PM Performed By: #### S ####[facility] [id number] [address] OF [facility] XR HIP 3V PELV+ AP/LAT RTon 12-04-2023 XR HIP 3V PELV+ AP/LAT RT * * *Final Report* * * DATE OF EXAM: Dec 04 2023 1:48PM HCR [id number] - XR HIP 3V PELV+ AP/LAT RT / PROCEDURE REASON: PAIN * * * * Physician Interpretation * * * * RESULT: EXAMINATION: XR HIP 3V PELV+ AP/LAT RT PATIENT/TECHNOLOGIST PROVIDED HISTORY: RIGHT JOESPH CLINICAL INFORMATION: PAIN TECHNIQUE: Right hip, 3 fluoroscopic images. COMPARISON: 11/06/2017 RESULT: Multiple images of the right hip obtained intraoperatively for surgical assessment during right total hip arthroplasty. Please see operative report from performing doctor for further details. Soft tissue gas is present secondary to the ongoing procedure. Fluoroscopic Radiation Summary: Plane A, Air Kerma: 2.2 mGy Fluoro time: 0:10 min:sec IMPRESSION: INTRAOPERATIVE ASSESSMENT Transcribed Using Voice Recognition Transcribe Date/Time: Dec 05 2023 10:29A Dictated by: JOJO ROBERTS DO This examination was interpreted and the report reviewed and electronically signed by: JOJO ROBERTS DO on Dec 05 2023 10:29AM EST [id number] [facility] XR LUMBAR 3V AP/LAT/L5-S1on 12-04-2023 XR LUMBAR 3V AP/LAT/L5-S1 * * *Final Report* * * DATE OF EXAM: Dec 04 2023 8:31AM HCX [id number] - XR LUMBAR 3V AP/LAT/L5-S1 / PROCEDURE REASON: Back pain * * * * Physician Interpretation * * * * RESULT: EXAMINATION: Lumbar spine HISTORY: Back pain TECHNIQUE: 3 views RESULTS: Postop changes from L2 through S1 with pedicle screws, rods and interbody cages. Fixation screw in the L3 body. No subluxation. Narrowing of the L1-2 interspace. The other interspaces are maintained. No subluxation. No hardware failure. IMPRESSION: Postoperative changes without hardware failure. Narrowing of the L1-2 interspace. Transcribed Using Voice Recognition Transcribe Date/Time: Dec 04 2023 9:57A Dictated by: EVELIA GARCIA MD This examination was interpreted and the report reviewed and electronically signed by: EVELIA GARCIA MD on Dec 04 2023 9:58AM EST [id number] [facility] XR PELVIS 1V APon 12-04-2023 XR PELVIS 1V AP * * *Final Report* * * DATE OF EXAM: Dec 04 2023 4:02PM HCR [id number] - XR PELVIS 1V AP / PROCEDURE REASON: Post-operative / post-procedure assessment * * * * Physician Interpretation * * * * RESULT: EXAM: XR PELVIS 1V AP HISTORY: Post-operative / post-procedure assessment COMPARISON: Same day. FINDINGS: Interval right hip arthroplasty with soft tissue swelling and subcutaneous gas. Left hip arthroplasty is unchanged. Stimulator pack projects over the left pelvis. Spinal fusion construct is partially imaged. Degenerative changes are seen in the pubic symphysis. IMPRESSION: Interval right hip arthroplasty. Transcribed Using Voice Recognition Transcribe Date/Time: Dec 04 2023 4:25P Dictated by: GUILLERMO GALE MD This examination was interpreted and the report reviewed and electronically signed by: GUILLERMO GALE MD on Dec 04 2023 4:27PM EST [id number] [facility] CBC W Auto Differential pane l (Bld)on 11-19-2023 Basophils (Bld) [#/Vol] 0.06 10*3/uL <0.11 k/uL [facility] Basophils/100 WBC (Bld) 0.6 % [facility] Differential cell count method Nom (Bld) Auto [facility] Eosinophils (Bld) [#/Vol] 0.21 10*3/uL <0.46 k/uL [facility] Eosinophils/100 WBC (Bld) 2.2 % [facility] Erythrocyte distribution width (RBC) [Ratio] 14.8 % 11.5 - 15.0 % [facility] Hematocrit (Bld) [Volume fraction] 39.7 % 36.0 - 46.0 % [facility] Hemoglobin (Bld) [Mass/Vol] 12.7 g/dL 11.5 - 15.5 g/dL [facility] Immature granulocytes (Bld) [#/Vol] 0.04 10*3/uL <0.10 k/uL [facility] Immature granulocytes/100 WBC (Bld) 0.4 % [facility] Lymphocytes (Bld) [#/Vol] 1.52 10*3/uL 1.00 - 4.00 k/uL [facility] Lymphocytes/100 WBC (Bld) 16.2 % [facility] MCH (RBC) [Entitic mass] 29.4 pg 26.0 - 34.0 pg [facility] MCHC (RBC) [Mass/Vol] 32.0 g/dL 30.5 - 36.0 g/dL [facility] MCV (RBC) [Entitic vol] 91.9 fL 80.0 - 100.0 fL [facility] Monocytes (Bld) [#/Vol] 0.73 10*3/uL <0.87 k/uL [facility] Monocytes/100 WBC (Bld) 7.8 % [facility] Neutrophils (Bld) [#/Vol] 6.82 10*3/uL 1.45 - 7.50 k/uL [facility] Neutrophils/100 WBC (Bld) 72.8 % [facility] Nucleated RBC (Bld) [#/Vol] <0.01 k/uL [facility] Nucleated RBC/100 WBC (Bld) [Ratio] 0.0 /100 WBC [facility] Platelet mean volume (Bld) [Entitic vol] 9.7 fL 9.0 - 12.7 fL [facility] Platelets (Bld) [#/Vol] 300 10*3/uL 150 - 400 k/uL [facility] RBC (Bld) [#/Vol] 4.32 10*6/uL 3.90 - 5.2 0 m/uL [facility] WBC (Bld) [#/Vol] 9.38 10*3/uL 3.70 - 11. 00 k/uL [facility] Comprehensive metabolic 2000 panelon 11-19-2023 Albumin [Mass/Vol] 4.1 g/dL 3.9 - 4.9 g/dL [facility] ALP [Catalytic activity/Vol] 106 U/L 34 - 123 U/L [facility] ALT [Catalytic activity/Vol] 17 U/L 7 - 38 U/L [facility] Anion gap [Moles/Vol] 11 mmol/L 9 - 18 mmol/L [facility] AST [Catalytic activity/Vol] 19 U/L 13 - 35 U/L [facility] Bilirubin [Mass/Vol] 0.2 mg/dL 0.2 - 1 .3 mg/dL [facility] Calcium [Mass/Vol] 9.7 mg/dL 8.5 - 10. 2 mg/dL [facility] Chloride [Moles/Vol] 103 mmol/L 97 - 10 5 mmol/L [facility] CO2 [Moles/Vol] 23 mmol/L 22 - 30 mmol/L [facility] Creatinine [Mass/Vol] 0.84 mg/dL 0.58 - 0.96 mg/dL [facility] Estimated Glomerular Filtration Rate 83 mL/min/1.73m >=60 mL/min/1.73m [facility] Glucose [Mass/Vol] 112 mg/dL High 74 - 99 mg/dL [facility] Potassium [Moles/Vol] 4.0 mmol/L 3.7 - 5.1 mmol/L [facility] Protein [Mass/Vol] 7.4 g/dL 6.3 - 8.0 g/dL [facility] Sodium [Moles/Vol] 137 mmol/L 136 - 144 mmol/L [facility] Urea nitrogen [Mass/Vol] 12 mg/dL 7 - 21 mg/dL [facility] FERRITIN BLDon 11-19-2023 Ferritin [Mass/Vol] 33.8 ng/mL 14.7 - 2 05.1 ng/mL [facility] Iron and Iron binding capaci ty panelon 11-19-2023 Iron [Mass/Vol] 43 ug/dL 41 - 186 ug/dL [facility] Iron binding capacity [Mass/Vol] 323 ug/dL 232 - 386 ug/dL [facility] Iron/TIBC [Molar ratio] 13.3 % Low 15.0 - 57.0 % [facility] Laboratory - Drug toxicology Ordered By: Mercy Jin on 10-23-2023 Amphetamines Ql (U) Negative <1000 ng/mL [facility] Benzodiazepines Ql (U) Positive < 200 ng/mL [facility] Cannabinoids Screen Ql (U) Positive < 50 ng/mL [facility] Cocaine Ql (U) Negative < 300 ng/mL [facility] Opiates Ql (U) Negative < 300 ng/mL [facility] No Panel InformationOrdered By: Mercy Jin on 10-23-2023 MDMA (Ecstasy) Screen Positive < 500 ng/mL [facility] Miscellaneous Test See comment [facility] Comment on above: [id number] 6+OXYCODONE-B UND (ng/mL) DRUG RESULT SCREEN CUTOFF____ Amphetamines,Urine Negative ng/mL 1000 Amphetamine test includes Amphetamine and Methamphetamine.Barbiturates Negative ng/mL 200Benzodiazepines POSITIVE ng/mL 100Please Note;Confirmation performed by Mass SpectrometryNordiazepam PositiveNordiazepam Conf,MS,UR 416 ng/mL 100 Oxazepam PositiveOxazepam Conf,MS,UR 1845 ng/mL 100Flurazepam Negative 100Lorazepam Negative 100Alprazolam Negative 100Clonazepam Negative 100Temazepam PositiveTemazepam Conf,MS,UR 948 ng/mL 100Triazolam Negative 100Midazolam Negative 100Cannabinoid Positive 20Carboxy THC Conf,MS,UR 14 ng/mL 10Cocaine (Metab) Negative ng/mL 300Opiates Negative ng/mL 300 Opiates test includes Codeine, Morphine, Hydromorphone, Hydrocodone. Oxycodone/Oxymorphone,Urine Positive ng/mL 300 Test includes Oxydodone and Oxymorphone. Oxycodone PositiveOxycodone Conf,MS,UR 842 ng/mL 300 Oxymorphone PositiveOxymorphone Conf,MS,UR 1033 ng/mL 300 TESTING PERFORMED AT [facility]. ORIGINAL REPORT ON FILE IN LAB CONTAINS ADDITIONAL TEST SITE INFORMATION. Urine Barbiturates Screen Negative < 200 ng/mL [facility] Urine Drug Screen Comment [facility] Comment on above: CONFIRMATORY TESTING FOR ALL POSITIVE URINE DRUG SCREENRESULTS WILL ONLY BE SENT OUT UPON PHYSICIAN ORDER. VISTA Urine Drug Screen methods provide only preliminaryanalytical test results. A more specific alternate chemicalmethod must be used in order to obtain a confirmedanalytical result. Gas chromatography/mass spectrometery(GC/MS) is the preferred confirmatory method. Clinicalconsideration and professional judgement should be appliedto any drug of abuse test result, particularly whenpreliminary positive results are used. URINE TCA TESTING MUST BE ORDERED SEPARATELY. USE TESTMNEMONIC: [facility] Urine Methadone Screen Negative < 300 ng/mL [facility] Negative < 300 ng/mL [facility] Positive < 50 ng/mL [facility] See comment [facility] Urine phencyclidine (PCP) de tectionOrdered By: Mercy Jin on 10-23-2023 Phencyclidine Ql (U) Negative < 25 ng/mL [facility] Absolute lymphocyte countOrd ered By: Ky Henderson on 09-27-2023 Lymphocytes Auto (Unsp spec) [#/Vol] 1.89 10*3/uL 0.83-4.51 [facility] Automated lymphocyte count a s percentage of total leukocytesOrdered By: Ky Henderson on 09-27-2023 Lymphocytes/100 WBC Auto (Unsp spec) 31.0 % 19-41 [facility] Basophil percentageOrdered B y: Ky Henderson on 09-27-2023 Basophil percentage 9.2 g/dL 12.0-15.0 [facility] Basophil percentage 88 mg/dL 74-106 [facility] Basophil percentage 140 mmol/L 136-145 [facility] Basophil percentage 3.4 mmol/L 3.5-5.1 [facility] Basophil percentage 111 mmol/L 98-107 [facility] Basophils (Bld) [#/Vol] 6.1 10*3/uL 4.4-11.0 [facility] Basophils (Bld) [#/Vol] 3.0 10*3/uL 2.0-7.7 [facility] Basophils/100 WBC (Bld) 0.8 % 0-1 [facility] Basophils/100 WBC (Bld) 49.8 % 47-70 [facility] Basophils/100 WBC (Bld) 10.0 % 0-10 [facility] Basophils/100 WBC (Bld) 7.7 % 0-5 [facility] Chloride [Moles/Vol] 111 mmol/L 98-107 [facility] Eosinophils/100 WBC (Bld) 7.7 % 0-5 [facility] Glucose [Mass/Vol] 88 mg/dL 74-106 [facility] Hemoglobin (Bld) [Mass/Vol] 9.2 g/dL 12.0-15.0 [facility] Monocytes/100 WBC (Bld) 10.0 % 0-10 [facility] Neutrophils (Bld) [#/Vol] 3.0 10*3/uL 2.0-7.7 [facility] Neutrophils/100 WBC (Bld) 49.8 % 47-70 [facility] Potassium [Moles/Vol] 3.4 mmol/L 3.5-5.1 [facility] Sodium [Moles/Vol] 140 mmol/L 136-145 [facility] WBC (Bld) [#/Vol] 6.1 10*3/uL 4.4-11.0 [facility] Determination of erythrocyte mean corpuscular volume (MCV)Ordered By: Ky Henderson on 09-27-2023 MCV (RBC) [Entitic vol] 99.3 fL 81-99 [facility] Erythrocyte distribution wid th ratioOrdered By: Ky Santiago on 09-27-2023 Erythrocyte distribution width (RBC) [Ratio] 16.4 % 11.6-14.6 [facility] Erythrocyte distribution wid th standard deviationOrdered By: Ky Henderson on 09-27-2023 Erythrocyte distribution width (RBC) [Entitic vol] 59.1 fL 35.1-43.9 [facility] Hematocrit Auto (Bld) [Volum e fraction]Ordered By: Ky Henderson on 09-27-2023 Hematocrit (Bld) [Volume fraction] 30.0 % 37-47 [facility] Immature granulocytes/100 WB C Auto (Bld)Ordered By: Ky Henderson 09-27-2023 Immature granulocytes/100 WBC (Bld) 0.700 % 0.0-0.9 [facility] Comment on above: IG% - Immature Granu locytes (promyelocytes, myelocytes and metamyelocytes) > 1% indicates that a LEFT SHIFT is Present. Laboratory - Chemistry and C hemistry - challengeOrdered By: Ky Henderson 09-27-2023 CO2 [Moles/Vol] 24.0 mmol/L 21.0-32.0 [facility] Urea nitrogen/Creatinine [Mass ratio] 22.4 mg/mg 10-20 [facility] Laboratory - Hematology and Cell countsOrdered By: Ky Henderson 09-27-2023 MCH (RBC) [Entitic mass] 30.5 pg 27.0-32.0 [facility] MCHC (RBC) [Mass/Vol] 30.7 g/dL 32-36 [facility] Nucleated RBC/100 WBC (Bld) [Ratio] 0 % 0-5 [facility] Platelet mean volume (Bld) [Entitic vol] 9.6 fL 6.2-12.0 [facility] Platelets (Bld) [#/Vol] 327 10*3/uL 150-450 [facility] No Panel InformationOrdered By: Ky Henderson on 09-27-2023 Estimated Creatinine Clearance Calc 107.60 ml/min [facility] Estimated GFR (MDRD) Amer 110 mL/min >60 [facility] Comment on above: GFR Calc Estimated GFR (MDRD) Non-Af Amer 91 mL/min >60 [facility] Comment on above: Non- GFR Calc 30.5 pg 27.0-32.0 [facility] 30.7 g/dL 32-36 [facility] 327 K/mm3 150-450 [facility] 9.6 fl 6.2-12.0 [facility] 0 % 0-5 [facility] 91 mL/min >60 [facility] 110 mL/min >60 [facility] 107.60 ml/min [facility] 22.4 RATIO 10-20 [facility] 24.0 mmol/L 21.0-32.0 [facility] RBC Auto (Bld) [#/Vol]Ordere d By: Ky Henderson on 09-27-2023 RBC (Bld) [#/Vol] 3.02 10*6/uL 4.2-5.4 [facility] Serum or plasma calcium ernie urement (mass/volume)Ordered By: Ky Henderson on 09-27-2023 Calcium [Mass/Vol] 8.5 mg/dL 8.5-10.1 [facility] Serum or plasma creatinine m easurement (mass/volume)Ordered By: Ky Henderson on 09-27-2023 Creatinine [Mass/Vol] 0.72 mg/dL 0.55-1.02 [facility] Comment on above: The validity of the calculated GFR & GFRAA in patients over 70 years has not been determined. Clinical correlation is essential. Serum or plasma urea nitroge n measurement (mass/volume)Ordered By: Ky Henderson on 09-27-2023 Urea nitrogen [Mass/Vol] 16 mg/dL 7-18 [facility] Thin prep Papanicolaou smear with manual screeningOrdered By: Ky Henderson on 09-27-2023 Thin prep Papanicolaou smear with manual screening 5 -15 [facility] Absolute lymphocyte countOrd ered By: Rafael Wood on 09-25-2023 Lymphocytes Auto (Unsp spec) [#/Vol] 2.25 10*3/uL 0.83-4.51 [facility] Activated partial thrombopla stin time (aPTT) in platelet poor plasma by coagulation aOrdered By: Rafael Wood on 09-25-2023 aPTT Coag (PPP) [Time] 27.7 s 24.1-36.2 [facility] Automated lymphocyte count a s percentage of total leukocytesOrdered By: Rafael Wood on 09-25-2023 Lymphocytes/100 WBC Auto (Unsp spec) 25.2 % 19-41 [facility] Basophil percentageOrdered B y: Rafael Wood on 09-25-2023 Basophil percentage 0 SEEN /hpf 0-5 [facility] Basophil percentage 10.7 g/dL 12.0-15.0 [facility] Basophil percentage 105 mg/dL 74-106 [facility] Basophil percentage 146 mmol/L 136-145 [facility] Basophil percentage 4.2 mmol/L 3.5-5.1 [facility] Basophil percentage 113 mmol/L 98-107 [facility] Basophils (Bld) [#/Vol] 8.9 10*3/uL 4.4-11.0 [facility] Basophils (Bld) [#/Vol] 5.5 10*3/uL 2.0-7.7 [facility] Basophils/100 WBC (Bld) 61.8 % 47-70 [facility] Basophils/100 WBC (Bld) 7.9 % 0-10 [facility] Basophils/100 WBC (Bld) 3.9 % 0-5 [facility] Basophils/100 WBC (Bld) 0.9 % 0-1 [facility] Chloride [Moles/Vol] 113 mmol/L 98-107 [facility] Eosinophils/100 WBC (Bld) 3.9 % 0-5 [facility] Glucose [Mass/Vol] 105 mg/dL 74-106 [facility] Comment on above: Fasting Glucose resu lt from 100 to 125 mg/dL suggests IMPAIRED HOMEOSTASIS per A.D.A. criteria. Hemoglobin (Bld) [Mass/Vol] 10.7 g/dL 12.0-15.0 [facility] Monocytes/100 WBC (Bld) 7.9 % 0-10 [facility] Neutrophils (Bld) [#/Vol] 5.5 10*3/uL 2.0-7.7 [facility] Neutrophils/100 WBC (Bld) 61.8 % 47-70 [facility] Potassium [Moles/Vol] 4.2 mmol/L 3.5-5.1 [facility] Sodium [Moles/Vol] 146 mmol/L 136-145 [facility] WBC (Bld) [#/Vol] 8.9 10*3/uL 4.4-11.0 [facility] Bilirubin Test strip Ql (U)O rdered By: Rafael Wood on 09-25-2023 Bilirubin Ql (U) Negative Negative [facility] Determination of erythrocyte mean corpuscular volume (MCV)Ordered By: Rafael Wood on 09-25-2023 MCV (RBC) [Entitic vol] 98.6 fL 81-99 [facility] Erythrocyte distribution wid th ratioOrdered By: Rafael Wood on 09-25-2023 Erythrocyte distribution width (RBC) [Ratio] 16.3 % 11.6-14.6 [facility] Erythrocyte distribution wid th standard deviationOrdered By: Rafael Wood on 09-25-2023 Erythrocyte distribution width (RBC) [Entitic vol] 59.5 fL 35.1-43.9 [facility] Hematocrit Auto (Bld) [Volum e fraction]Ordered By: Rafael Wood on 09-25-2023 Hematocrit (Bld) [Volume fraction] 35.0 % 37-47 [facility] Immature granulocytes/100 WB C Auto (Bld)Ordered By: Rafael Wood on 09-25-2023 Immature granulocytes/100 WBC (Bld) 0.300 % 0.0-0.9 [facility] Comment on above: IG% - Immature Granu locytes (promyelocytes, myelocytes and metamyelocytes) > 1% indicates that a LEFT SHIFT is Present. Ketones Test strip Ql (U)Ord ered By: Rafael Wood on 09-25-2023 Ketones Ql (U) Negative Negative [facility] Laboratory - Chemistry and C hemistry - challengeOrdered By: Rafael Wood on 09-25-2023 CO2 [Moles/Vol] 27.0 mmol/L 21.0-32.0 [facility] Urea nitrogen/Creatinine [Mass ratio] 27.4 mg/mg 10-20 [facility] Laboratory - CoagulationOrde red By: Rafael Wood on 09-25-2023 INR Coag (Bld) [Relative time] 1.1 {INR} [facility] PT Coag (PPP) [Time] 13.7 s 11.7-14.9 [facility] Laboratory - Drug toxicology Ordered By: Rafael Wood on 09-25-2023 Amphetamines Ql (U) Negative <1000 ng/mL [facility] Benzodiazepines Ql (U) Positive < 200 ng/mL [facility] Cannabinoids Screen Ql (U) Negative < 50 ng/mL [facility] Cocaine Ql (U) Negative < 300 ng/mL [facility] Opiates Ql (U) Negative < 300 ng/mL [facility] Laboratory - Hematology and Cell countsOrdered By: Rafael Wood on 09-25-2023 MCH (RBC) [Entitic mass] 30.1 pg 27.0-32.0 [facility] MCHC (RBC) [Mass/Vol] 30.6 g/dL 32-36 [facility] Nucleated RBC/100 WBC (Bld) [Ratio] 0 % 0-5 [facility] Platelet mean volume (Bld) [Entitic vol] 9.4 fL 6.2-12.0 [facility] Platelets (Bld) [#/Vol] 435 10*3/uL 150-450 [facility] Mucus LM Ql (Urine sed)Order ed By: Rafael Wood on 09-25-2023 Mucus Ql (Urine sed) 0 SEEN /hpf [facility] Nitrite Test strip Ql (U)Ord ered By: Rafael Wood on 09-25-2023 Nitrite Ql (U) Negative Negative [facility] No Panel InformationOrdered By: Rafael Wood on 09-25-2023 MDMA (Ecstasy) Screen Negative < 500 ng/mL [facility] Urine Barbiturates Screen Negative < 200 ng/mL [facility] Urine Drug Screen Comment [facility] Comment on above: CONFIRMATORY TESTING FOR ALL POSITIVE URINE DRUG SCREENRESULTS WILL ONLY BE SENT OUT UPON PHYSICIAN ORDER. [facility]IST[facility] Urine Drug Screen methods provide only preliminaryanalytical test results. A more specific alternate chemicalmethod must be used in order to obtain a confirmedanalytical result. Gas chromatography/mass spectrometery(GC/MS) is the preferred confirmatory method. Clinicalconsideration and professional judgement should be appliedto any drug of abuse test result, particularly whenpreliminary positive results are used. URINE TCA TESTING MUST BE ORDERED SEPARATELY. USE TESTMNEMONIC: [facility] Urine Methadone Screen Negative < 300 ng/mL [facility] Urine RBC 0 SEEN /hpf 0-5 [facility] 0 SEEN /hpf 0-5 [facility] Negative < 50 ng/mL [facility] Positive < 200 ng/mL [facility] Estimated Creatinine Clearance Calc 88.92 ml/min [facility] Estimated GFR (MDRD) Amer 87 mL/min >60 [facility] Comment on above: GFR Calc Estimated GFR (MDRD) Non-Af Amer 72 mL/min >60 [facility] Comment on above: Non- GFR Calc Troponin I High Sensitivity 7 pg/mL 3.0-54.0 [facility] Comment on above: Please Note: [place] t Units and Gender Specific Reference Ranges. For more information see Policy Stat Procedure [place] High Sensitivity Troponin (TNIH) and attachments. 30.1 pg 27.0-32.0 [facility] 30.6 g/dL 32-36 [facility] 435 K/mm3 150-450 [facility] 9.4 fl 6.2-12.0 [facility] 0 % 0-5 [facility] 13.7 SECONDS 11.7-14.9 [facility] 1.1 [facility] 72 mL/min >60 [facility] 87 mL/min >60 [facility] 88.92 ml/min [facility] 27.4 RATIO 10-20 [facility] 7 pg/mL 3.0-54.0 [facility] 27.0 mmol/L 21.0-32.0 [facility] Protein Test strip Ql (U)Ord ered By: Rafael Wood on 09-25-2023 Protein Ql (U) 30 mg/dl Negative [facility] RBC Auto (Bld) [#/Vol]Ordere d By: Rafael Wood on 09-25-2023 RBC (Bld) [#/Vol] 3.55 10*6/uL 4.2-5.4 [facility] Serum or plasma calcium ernie urement (mass/volume)Ordered By: Rafael Wood on 09-25-2023 Calcium [Mass/Vol] 9.1 mg/dL 8.5-10.1 [facility] Serum or plasma creatinine m easurement (mass/volume)Ordered By: Rafael Wood on 09-25-2023 Creatinine [Mass/Vol] 0.88 mg/dL 0.55-1.02 [facility] Comment on above: The validity of the calculated GFR & GFRAA in patients over 70 years has not been determined. Clinical correlation is essential. Serum or plasma urea nitroge n measurement (mass/volume)Ordered By: Rafael Wood on 09-25-2023 Urea nitrogen [Mass/Vol] 24 mg/dL 7-18 [facility] Squamous epithelial cells de tection in urine sediment by light microscopyOrdered By: Rafael Wood on 09-25-2023 Epithelial cells.squamous LM Ql (Urine sed) 0-5 SEEN /hpf 5-10 [facility] Thin prep Papanicolaou smear with manual screeningOrdered By: Rafael Wood on 09-25-2023 Thin prep Papanicolaou smear with manual screening 6 5-15 [facility] Thin prep Papanicolaou smear with manual screeningOrdered By: Ky Henderson on 09-25-2023 Thin prep Papanicolaou smear with manual screening 102 mg/dL 74-106 [facility] Comment on above: MANAGEMENT OF PATIEN T CARE PER NURSING PROTOCOL Urine blood detectionOrdered By: Rafael Wood on 09-25-2023 RBC Ql (U) Negative Negative [facility] Urine clarityOrdered By: Agustín Wood on 09-25-2023 Clarity (U) Clear Clear [facility] Urine color determinationOrd ered By: Rafael Wood on 09-25-2023 Color (U) Yellow Yellow [facility] Urine glucose detectionOrder ed By: Rafael Wood on 09-25-2023 Glucose Ql (U) Normal mg/dl Normal [facility] Urine leukocyte esterase det ection by dipstickOrdered By: Rafael Wood on 09-25-2023 Leukocyte esterase Test strip Ql (U) Negative Negative [facility] Urine pHOrdered By: Rafael Wood on 09-25-2023 pH (U) 5.0 [pH] 5.0 - 8.0 [facility] Urine phencyclidine (PCP) de tectionOrdered By: Rafael Wood on 09-25-2023 Phencyclidine Ql (U) Negative < 25 ng/mL [facility] Urine sediment bacteria coun t by microscopy (number/high power field)Ordered By: Rafael Wood on 09-25-2023 Bacteria LM.HPF (Urine sed) [#/Area] 0 /[HPF] None Seen [facility] Urine specific gravity measu rementOrdered By: Rafael Wood on 09-25-2023 Specific gravity (U) [Rel density] 1.010 1.002-1.030 [facility] Urine urobilinogen measureme ntOrdered By: Rafael Wood on 09-25-2023 Urobilinogen Ql (U) Normal mg/dl Normal [facility] COVID-19 virus antigen assay Ordered By: Ky Henderson on 09-24-2023 SARS-CoV-2 (COVID-19) Ag IA.rapid Ql (Resp) [facility] SARS-CoV-2 (COVID-19) Ag IA.rapid Ql (Resp) [facility] Basophil percentageOrdered B y: Ky Henderson on 09-21-2023 Basophil percentage 9.8 g/dL 12.0-15.0 [facility] Hematocrit Auto (Bld) [Volum e fraction]Ordered By: Ky Henderson on 09-21-2023 Hematocrit (Bld) [Volume fraction] 31.5 % 37-47 [facility] Absolute lymphocyte countOrd ered By: Ky Henderson on 09-20-2023 Lymphocytes Auto (Unsp spec) [#/Vol] 1.37 10*3/uL 0.83-4.51 [facility] Automated lymphocyte count a s percentage of total leukocytesOrdered By: Ky Henderson on 09-20-2023 Lymphocytes/100 WBC Auto (Unsp spec) 29.5 % 19-41 [facility] Basophil percentageOrdered B y: Ky Henderson on 09-20-2023 Basophil percentage 87 mg/dL 74-106 [facility] Basophil percentage 138 mmol/L 136-145 [facility] Basophil percentage 3.7 mmol/L 3.5-5.1 [facility] Basophil percentage 110 mmol/L 98-107 [facility] Basophils (Bld) [#/Vol] 4.6 10*3/uL 4.4-11.0 [facility] Basophils (Bld) [#/Vol] 2.3 10*3/uL 2.0-7.7 [facility] Basophils/100 WBC (Bld) 48.5 % 47-70 [facility] Basophils/100 WBC (Bld) 14.9 % 0-10 [facility] Basophils/100 WBC (Bld) 5.0 % 0-5 [facility] Basophils/100 WBC (Bld) 1.5 % 0-1 [facility] Determination of erythrocyte mean corpuscular volume (MCV)Ordered By: Ky Henderson on 09-20-2023 MCV (RBC) [Entitic vol] 98.5 fL 81-99 [facility] Erythrocyte distribution wid th ratioOrdered By: Ky Henderson on 09-20-2023 Erythrocyte distribution width (RBC) [Ratio] 17.0 % 11.6-14.6 [facility] Erythrocyte distribution wid th standard deviationOrdered By: Ky Henderson on 09-20-2023 Erythrocyte distribution width (RBC) [Entitic vol] 61.6 fL 35.1-43.9 [facility] Immature granulocytes/100 WB C Auto (Bld)Ordered By: Ky Henderson on 09-20-2023 Immature granulocytes/100 WBC (Bld) 0.600 % 0.0-0.9 [facility] No Panel InformationOrdered By: Ky Henderson on 09-20-2023 30.6 pg 27.0-32.0 [facility] 31.0 g/dL 32-36 [facility] 512 K/mm3 150-450 [facility] 9.3 fl 6.2-12.0 [facility] 0 % 0-5 [facility] 86 mL/min >60 [facility] 104 mL/min >60 [facility] 103.29 ml/min [facility] 35.9 RATIO 10-20 [facility] 24.0 mmol/L 21.0-32.0 [facility] RBC Auto (Bld) [#/Vol]Ordere d By: Ky Henderson on 09-20-2023 RBC (Bld) [#/Vol] 3.24 10*6/uL 4.2-5.4 [facility] Serum or plasma calcium ernie urement (mass/volume)Ordered By: Ky Henderson on 09-20-2023 Calcium [Mass/Vol] 8.4 mg/dL 8.5-10.1 [facility] Serum or plasma creatinine m easurement (mass/volume)Ordered By: Ky Henderson on 09-20-2023 Creatinine [Mass/Vol] 0.75 mg/dL 0.55-1.02 [facility] Serum or plasma urea nitroge n measurement (mass/volume)Ordered By: Ky Henderson on 09-20-2023 Urea nitrogen [Mass/Vol] 27 mg/dL 7-18 [facility] Thin prep Papanicolaou smear with manual screeningOrdered By: Ky Henderson on 09-20-2023 Thin prep Papanicolaou smear with manual screening 4 5-15 [facility] Absolute lymphocyte countOrd ered By: Iván Stewart on 09-16-2023 Lymphocytes Auto (Unsp spec) [#/Vol] 2.01 10*3/uL 0.83-4.51 [facility] Automated lymphocyte count a s percentage of total leukocytesOrdered By: Iván Stewart on 09-16-2023 Lymphocytes/100 WBC Auto (Unsp spec) 21.3 % 19-41 [facility] Basophil percentageOrdered B y: Iván Stewart on 09-16-2023 Basophil percentage 0-5 SEEN /hpf 0-5 [facility] Basophil percentage 9.1 g/dL 12.0-15.0 [facility] Basophil percentage 124 mg/dL 74-106 [facility] Basophil percentage 6.4 g/dL 6.4-8.2 [facility] Basophil percentage 0.20 mg/dL 0.20-1.00 [facility] Basophil percentage 137 mmol/L 136-145 [facility] Basophil percentage 3.7 mmol/L 3.5-5.1 [facility] Basophil percentage 106 mmol/L 98-107 [facility] Basophils (Bld) [#/Vol] 9.4 10*3/uL 4.4-11.0 [facility] Basophils (Bld) [#/Vol] 6.2 10*3/uL 2.0-7.7 [facility] Basophils/100 WBC (Bld) 0.7 % 0-1 [facility] Basophils/100 WBC (Bld) 65.7 % 47-70 [facility] Basophils/100 WBC (Bld) 7.7 % 0-10 [facility] Basophils/100 WBC (Bld) 3.0 % 0-5 [facility] Bilirubin [Mass/Vol] 0.20 mg/dL 0.20-1.00 [facility] Comment on above: For patients on eltr ombopag therapy, use of Dimension [place] TBIL is not recommended. Chloride [Moles/Vol] 106 mmol/L 98-107 [facility] Eosinophils/100 WBC (Bld) 3.0 % 0-5 [facility] Glucose [Mass/Vol] 124 mg/dL 74-106 [facility] Comment on above: Fasting Glucose resu lt from 100 to 125 mg/dL suggests IMPAIRED HOMEOSTASIS per A.D.A. criteria. Hemoglobin (Bld) [Mass/Vol] 9.1 g/dL 12.0-15.0 [facility] Monocytes/100 WBC (Bld) 7.7 % 0-10 [facility] Neutrophils (Bld) [#/Vol] 6.2 10*3/uL 2.0-7.7 [facility] Neutrophils/100 WBC (Bld) 65.7 % 47-70 [facility] Potassium [Moles/Vol] 3.7 mmol/L 3.5-5.1 [facility] Protein [Mass/Vol] 6.4 g/dL 6.4-8.2 [facility] Sodium [Moles/Vol] 137 mmol/L 136-145 [facility] WBC (Bld) [#/Vol] 9.4 10*3/uL 4.4-11.0 [facility] Bilirubin Test strip Ql (U)O rdered By: Iván Stewart on 09-16-2023 Bilirubin Ql (U) Negative Negative [facility] Determination of erythrocyte mean corpuscular volume (MCV)Ordered By: Iván Stewart on 09-16-2023 MCV (RBC) [Entitic vol] 98.3 fL 81-99 [facility] Erythrocyte distribution wid th ratioOrdered By: Iván Stewart on 09-16-2023 Erythrocyte distribution width (RBC) [Ratio] 17.6 % 11.6-14.6 [facility] Erythrocyte distribution wid th standard deviationOrdered By: Iván Stewart on 09-16-2023 Erythrocyte distribution width (RBC) [Entitic vol] 58.8 fL 35.1-43.9 [facility] Hematocrit Auto (Bld) [Volum e fraction]Ordered By: Iván Stewart on 09-16-2023 Hematocrit (Bld) [Volume fraction] 28.7 % 37-47 [facility] Immature granulocytes/100 WB C Auto (Bld)Ordered By: Iván Stewart on 09-16-2023 Immature granulocytes/100 WBC (Bld) 1.600 % 0.0-0.9 [facility] Comment on above: IG% - Immature Granu locytes (promyelocytes, myelocytes and metamyelocytes) > 1% indicates that a LEFT SHIFT is Present. Ketones Test strip Ql (U)Ord ered By: Iván Stewart on 09-16-2023 Ketones Ql (U) Negative Negative [facility] Laboratory - Chemistry and C hemistry - challengeOrdered By: Iván Stewart on 09-16-2023 Albumin/Globulin [Mass ratio] 0.8 {ratio} 0.9-2.4 [facility] ALP [Catalytic activity/Vol] 170 U/L 45-117 [facility] ALT [Catalytic activity/Vol] 51 U/L 13-56 [facility] CO2 [Moles/Vol] 27.0 mmol/L 21.0-32.0 [facility] Globulin (S) [Mass/Vol] 3.5 g/dL 2.2-4.2 [facility] Lipase [Catalytic activity/Vol] 46 U/L 13-75 [facility] Comment on above: Please note:LIPASE r evised reference range effective 22. New Lipase methodology. Expected to produce lower values than the previous assay method. NEW Reference Range: 13 - 75 U/L Urea nitrogen/Creatinine [Mass ratio] 26.5 mg/mg 10-20 [facility] Laboratory - Hematology and Cell countsOrdered By: Iván Stewart on 09-16-2023 MCH (RBC) [Entitic mass] 31.2 pg 27.0-32.0 [facility] MCHC (RBC) [Mass/Vol] 31.7 g/dL 32-36 [facility] Nucleated RBC/100 WBC (Bld) [Ratio] 0.3 % 0-5 [facility] Platelets (Bld) [#/Vol] 493 10*3/uL 150-450 [facility] Mucus LM Ql (Urine sed)Order ed By: Iván Stewart on 09-16-2023 Mucus Ql (Urine sed) 0 SEEN /hpf [facility] Nitrite Test strip Ql (U)Ord ered By: Iván Stewart on 09-16-2023 Nitrite Ql (U) Negative Negative [facility] No Panel InformationOrdered By: Iván Stewart on 09-16-2023 Urine RBC 0 SEEN /hpf 0-5 [facility] 0 SEEN /hpf 0-5 [facility] Estimated Creatinine Clearance Calc 102.90 ml/min [facility] Estimated GFR (MDRD) Amer 103 mL/min >60 [facility] Comment on above: GFR Calc Estimated GFR (MDRD) Non-Af Amer 85 mL/min >60 [facility] Comment on above: Non- GFR Calc 31.2 pg 27.0-32.0 [facility] 31.7 g/dL 32-36 [facility] 493 K/mm3 150-450 [facility] 0.3 % 0-5 [facility] 85 mL/min >60 [facility] 103 mL/min >60 [facility] 102.90 ml/min [facility] 26.5 RATIO 10-20 [facility] 3.5 g/dL 2.2-4.2 [facility] 0.8 RATIO 0.9-2.4 [facility] 46 U/L 13-75 [facility] 170 U/L 45-117 [facility] 51 U/L 13-56 [facility] 27.0 mmol/L 21.0-32.0 [facility] Platelet mean volume Zachery-Ec ker (Bld) [Entitic vol]Ordered By: Iván Stewart on 09-16-2023 Platelet mean volume (Bld) [Entitic vol] 9.1 fL 6.2-12.0 [facility] Protein Test strip Ql (U)Ord ered By: Iván Stewart on 09-16-2023 Protein Ql (U) 15 mg/dl Negative [facility] RBC Auto (Bld) [#/Vol]Ordere d By: Iván Stewart on 09-16-2023 RBC (Bld) [#/Vol] 2.92 10*6/uL 4.2-5.4 [facility] Serum or plasma calcium ernie urement (mass/volume)Ordered By: Iván Stewart on 09-16-2023 Calcium [Mass/Vol] 8.5 mg/dL 8.5-10.1 [facility] Serum or plasma creatinine m easurement (mass/volume)Ordered By: Iván Stewart on 09-16-2023 Creatinine [Mass/Vol] 0.76 mg/dL 0.55-1.02 [facility] Comment on above: The validity of the calculated GFR & GFRAA in patients over 70 years has not been determined. Clinical correlation is essential. Serum or plasma urea nitroge n measurement (mass/volume)Ordered By: Iván Stewart on 09-16-2023 Urea nitrogen [Mass/Vol] 20 mg/dL 7-18 [facility] Squamous epithelial cells de tection in urine sediment by light microscopyOrdered By: Iván Stewart on 09-16-2023 Epithelial cells.squamous LM Ql (Urine sed) 0-5 SEEN /hpf 5-10 [facility] Thin prep Papanicolaou smear with manual screeningOrdered By: Iván Stewart on 09-16-2023 Thin prep Papanicolaou smear with manual screening 2.9 g/dL 3.2-5.0 [facility] Thin prep Papanicolaou smear with manual screening 33 U/L 15-37 [facility] Thin prep Papanicolaou smear with manual screening 4 5-15 [facility] Urine blood detectionOrdered By: Iván Stewart on 09-16-2023 RBC Ql (U) Negative Negative [facility] Urine clarityOrdered By: Franco Stewart on 09-16-2023 Clarity (U) Clear Clear [facility] Urine color determinationOrd ered By: Iván Stewart on 09-16-2023 Color (U) Yellow Yellow [facility] Urine glucose detectionOrder ed By: Iván Stewart on 09-16-2023 Glucose Ql (U) Normal mg/dl Normal [facility] Urine leukocyte esterase det ection by dipstickOrdered By: Iván Stewart on 09-16-2023 Leukocyte esterase Test strip Ql (U) Negative Negative [facility] Urine pHOrdered By: Iván gomez on 09-16-2023 pH (U) 6.5 [pH] 5.0 - 8.0 [facility] Urine sediment bacteria coun t by microscopy (number/high power field)Ordered By: Iván Stewart on 09-16-2023 Bacteria LM.HPF (Urine sed) [#/Area] 1 /[HPF] None Seen [facility] Urine specific gravity measu rementOrdered By: Iván Stewart on 09-16-2023 Specific gravity (U) [Rel density] 1.020 1.002-1.030 [facility] Urine urobilinogen measureme ntOrdered By: Iván Stewart on 09-16-2023 Urobilinogen Ql (U) Normal mg/dl Normal [facility] Basophil percentageOrdered B y: Ky Henderson on 09-15-2023 Hemoglobin (Bld) [Mass/Vol] 9.3 g/dL 12.0-15.0 [facility] Hematocrit Auto (Bld) [Volum e fraction]Ordered By: Ky Henderson on 09-15-2023 Hematocrit (Bld) [Volume fraction] 29.4 % 37-47 [facility] Absolute lymphocyte countOrd ered By: Ky Henderson on 09-14-2023 Lymphocytes Auto (Unsp spec) [#/Vol] 2.51 10*3/uL 0.83-4.51 [facility] Automated lymphocyte count a s percentage of total leukocytesOrdered By: Ky Henderson on 09-14-2023 Lymphocytes/100 WBC Auto (Unsp spec) 23.2 % 19-41 [facility] Basophil percentageOrdered B y: Ky Henderson on 09-14-2023 Basophils/100 WBC (Bld) 0.8 % 0-1 [facility] Eosinophils/100 WBC (Bld) 3.3 % 0-5 [facility] Monocytes/100 WBC (Bld) 6.9 % 0-10 [facility] Neutrophils (Bld) [#/Vol] 6.6 10*3/uL 2.0-7.7 [facility] Neutrophils/100 WBC (Bld) 61.4 % 47-70 [facility] WBC (Bld) [#/Vol] 10.8 10*3/uL 4.4-11.0 [facility] Determination of erythrocyte mean corpuscular volume (MCV)Ordered By: Ky Henderson on 09-14-2023 MCV (RBC) [Entitic vol] 98.3 fL 81-99 [facility] Erythrocyte distribution wid th ratioOrdered By: [facility] on 09-14-2023 Erythrocyte distribution width (RBC) [Ratio] 17.4 % 11.6-14.6 [facility] Erythrocyte distribution wid th standard deviationOrdered By: Ky Henderson on 09-14-2023 Erythrocyte distribution width (RBC) [Entitic vol] 56.8 fL 35.1-43.9 [facility] Immature granulocytes/100 WB C Auto (Bld)Ordered By: Ky Henderson on 09-14-2023 Immature granulocytes/100 WBC (Bld) 4.400 % 0.0-0.9 [facility] Comment on above: IG% - Immature Granu locytes (promyelocytes, myelocytes and metamyelocytes) > 1% indicates that a LEFT SHIFT is Present. Laboratory - Hematology and Cell countsOrdered By: Ky Henderson on 09-14-2023 MCH (RBC) [Entitic mass] 31.5 pg 27.0-32.0 [facility] MCHC (RBC) [Mass/Vol] 32.1 g/dL 32-36 [facility] Nucleated RBC/100 WBC (Bld) [Ratio] 0.3 % 0-5 [facility] Platelets (Bld) [#/Vol] 524 10*3/uL 150-450 [facility] Platelet mean volume Zachery-Ec ker (Bld) [Entitic vol]Ordered By: Ky Henderson on 09-14-2023 Platelet mean volume (Bld) [Entitic vol] 9.3 fL 6.2-12.0 [facility] RBC Auto (Bld) [#/Vol]Ordere d By: Ky Henderson on 09-14-2023 RBC (Bld) [#/Vol] 2.95 10*6/uL 4.2-5.4 [facility] Basophil percentageOrdered B y: Ky Henderson on 09-13-2023 Chloride [Moles/Vol] 111 mmol/L 98-107 [facility] Glucose [Mass/Vol] 94 mg/dL 74-106 [facility] Potassium [Moles/Vol] 3.7 mmol/L 3.5-5.1 [facility] Sodium [Moles/Vol] 140 mmol/L 136-145 [facility] Blood eosinophils/100 leukoc ytesOrdered By: Ky Henderson on 09-13-2023 Eosinophils/100 WBC (Bld) 3 % 0-5 [facility] Blood lymphocytes/100 leukoc ytesOrdered By: Ky Henderson on 09-13-2023 Lymphocytes/100 WBC (Bld) 20 % 19-41 [facility] Blood monocytes/100 leukocyt esOrdered By: Ky Henderson on 09-13-2023 Monocytes/100 WBC (Bld) 4 % 0-10 [facility] Blood promyelocytes/100 leuk ocytesOrdered By: Ky Henderson on 09-13-2023 Promyelocytes/100 WBC (Bld) 1 % 0-0 [facility] Blood segmented neutrophils/ 100 leukocytesOrdered By: Ky Henderson on 09-13-2023 Segmented neutrophils/100 WBC (Bld) 70 % 47-70 [facility] COVID-19 virus antigen assay Ordered By: Ky Henderson on 09-13-2023 SARS-CoV-2 (COVID-19) Ag IA.rapid Ql (Resp) [facility] Laboratory - Chemistry and C hemistry - challengeOrdered By: Ky Henderson on 09-13-2023 CO2 [Moles/Vol] 27.0 mmol/L 21.0-32.0 [facility] Urea nitrogen/Creatinine [Mass ratio] 28.5 mg/mg 10-20 [facility] Laboratory - Hematology and Cell countsOrdered By: Ky Henderson on 09-13-2023 Anisocytosis Ql (Bld) 2+ [facility] Myelocytes/100 WBC (Bld) 2 % 0-0 [facility] No Panel InformationOrdered By: Ky Henderson on 09-13-2023 Estimated Creatinine Clearance Calc 116.47 ml/min [facility] Estimated GFR (MDRD) Amer 119 mL/min >60 [facility] Comment on above: GFR Calc Estimated GFR (MDRD) Non-Af Amer 99 mL/min >60 [facility] Comment on above: Non- GFR Calc 2 % 0-0 [facility] 2+ [facility] Review by pathologistOrdered By: Ky Henderson on 09-13-2023 Pathologist review Cas (Unsp spec) [Interp] Reviewed [facility] Comment on above: Previous reported re sult: December siddharth Edited by: ROSEY on 09/14/23:923Neutrophilic leukocytosis with left shift.Macrocytic anemia.Rare NRBCs are noted.Thrombocytosis.Clinical correlation necessary.Charlie Platt M.D. 09/14/23 AMENDED REPORT 09/14/23923 PATH REV previously reported as: December siddharth Serum or plasma calcium ernie urement (mass/volume)Ordered By: Ky Henderson on 09-13-2023 Calcium [Mass/Vol] 8.8 mg/dL 8.5-10.1 [facility] Serum or plasma creatinine m easurement (mass/volume)Ordered By: Ky Henderson on 09-13-2023 Creatinine [Mass/Vol] 0.67 mg/dL 0.55-1.02 [facility] Comment on above: The validity of the calculated GFR & GFRAA in patients over 70 years has not been determined. Clinical correlation is essential. Serum or plasma urea nitroge n measurement (mass/volume)Ordered By: Ky Henderson on 09-13-2023 Urea nitrogen [Mass/Vol] 19 mg/dL 7-18 [facility] Thin prep Papanicolaou smear with manual screeningOrdered By: Ky Henderson on 09-13-2023 Thin prep Papanicolaou smear with manual screening 2 5-15 [facility] Total cell countOrdered By: Ky Henderson on 09-13-2023 Cells counted Molgen (Bld/Tiss) [#] 100 MANUAL DIFF [facility] Absolute lymphocyte countOrd ered By: Logan Cesar on 09-07-2023 Lymphocytes Auto (Unsp spec) [#/Vol] 2.28 10*3/uL 0.83-4.51 [facility] Automated lymphocyte count a s percentage of total leukocytesOrdered By: Logan Cesar on 09-07-2023 Lymphocytes/100 WBC Auto (Unsp spec) 17.2 % 19-41 [facility] Basophil percentageOrdered B y: Logan Cesar on 09-07-2023 Basophil percentage 8.9 g/dL 12.0-15.0 [facility] Basophil percentage 99 mg/dL 74-106 [facility] Basophil percentage 6.0 g/dL 6.4-8.2 [facility] Basophil percentage 0.40 mg/dL 0.20-1.00 [facility] Basophil percentage 141 mmol/L 136-145 [facility] Basophil percentage 3.2 mmol/L 3.5-5.1 [facility] Basophil percentage 116 mmol/L 98-107 [facility] Basophils (Bld) [#/Vol] 13.2 10*3/uL 4.4-11.0 [facility] Basophils (Bld) [#/Vol] 9.7 10*3/uL 2.0-7.7 [facility] Basophils/100 WBC (Bld) 0.6 % 0-1 [facility] Basophils/100 WBC (Bld) 73.6 % 47-70 [facility] Basophils/100 WBC (Bld) 4.7 % 0-10 [facility] Basophils/100 WBC (Bld) 2.8 % 0-5 [facility] Bilirubin [Mass/Vol] 0.40 mg/dL 0.20-1.00 [facility] Comment on above: For patients on eltr ombopag therapy, use of Dimension [place] TBIL is not recommended. Chloride [Moles/Vol] 116 mmol/L 98-107 [facility] Eosinophils/100 WBC (Bld) 2.8 % 0-5 [facility] Glucose [Mass/Vol] 99 mg/dL 74-106 [facility] Hemoglobin (Bld) [Mass/Vol] 8.9 g/dL 12.0-15.0 [facility] Monocytes/100 WBC (Bld) 4.7 % 0-10 [facility] Neutrophils (Bld) [#/Vol] 9.7 10*3/uL 2.0-7.7 [facility] Neutrophils/100 WBC (Bld) 73.6 % 47-70 [facility] Potassium [Moles/Vol] 3.2 mmol/L 3.5-5.1 [facility] Protein [Mass/Vol] 6.0 g/dL 6.4-8.2 [facility] Sodium [Moles/Vol] 141 mmol/L 136-145 [facility] WBC (Bld) [#/Vol] 13.2 10*3/uL 4.4-11.0 [facility] Determination of erythrocyte mean corpuscular volume (MCV)Ordered By: Logan Cesar on 09-07-2023 MCV (RBC) [Entitic vol] 93.8 fL 81-99 [facility] Erythrocyte distribution wid th ratioOrdered By: Logan Cesar on 09-07-2023 Erythrocyte distribution width (RBC) [Ratio] 14.3 % 11.6-14.6 [facility] Erythrocyte distribution wid th standard deviationOrdered By: Logan Cesar on 09-07-2023 Erythrocyte distribution width (RBC) [Entitic vol] 48.7 fL 35.1-43.9 [facility] Hematocrit Auto (Bld) [Volum e fraction]Ordered By: Logan Cesar on 09-07-2023 Hematocrit (Bld) [Volume fraction] 27.2 % 37-47 [facility] Immature granulocytes/100 WB C Auto (Bld)Ordered By: Logan Cesar on 09-07-2023 Immature granulocytes/100 WBC (Bld) 1.100 % 0.0-0.9 [facility] Comment on above: IG% - Immature Granu locytes (promyelocytes, myelocytes and metamyelocytes) > 1% indicates that a LEFT SHIFT is Present. Laboratory - Chemistry and C hemistry - challengeOrdered By: Logan Cesar on 09-07-2023 Albumin/Globulin [Mass ratio] 0.7 {ratio} 0.9-2.4 [facility] ALP [Catalytic activity/Vol] 84 U/L 45-117 [facility] ALT [Catalytic activity/Vol] 72 U/L 13-56 [facility] CO2 [Moles/Vol] 22.0 mmol/L 21.0-32.0 [facility] Globulin (S) [Mass/Vol] 3.6 g/dL 2.2-4.2 [facility] Urea nitrogen/Creatinine [Mass ratio] 23.3 mg/mg 10-20 [facility] Laboratory - Hematology and Cell countsOrdered By: Logan Cesar on 09-07-2023 MCH (RBC) [Entitic mass] 30.7 pg 27.0-32.0 [facility] MCHC (RBC) [Mass/Vol] 32.7 g/dL 32-36 [facility] Nucleated RBC/100 WBC (Bld) [Ratio] 0.2 % 0-5 [facility] Platelets (Bld) [#/Vol] 251 10*3/uL 150-450 [facility] No Panel InformationOrdered By: Logan Cesar on 09-07-2023 Estimated Creatinine Clearance Calc 119.80 ml/min [facility] Estimated GFR (MDRD) Amer 124 mL/min >60 [facility] Comment on above: GFR Calc Estimated GFR (MDRD) Non-Af Amer 103 mL/min >60 [facility] Comment on above: Non- GFR Calc 30.7 pg 27.0-32.0 [facility] 32.7 g/dL 32-36 [facility] 251 K/mm3 150-450 [facility] 0.2 % 0-5 [facility] 103 mL/min >60 [facility] 124 mL/min >60 [facility] 119.80 ml/min [facility] 23.3 RATIO 10-20 [facility] 3.6 g/dL 2.2-4.2 [facility] 0.7 RATIO 0.9-2.4 [facility] 84 U/L 45-117 [facility] 72 U/L 13-56 [facility] 22.0 mmol/L 21.0-32.0 [facility] Platelet mean volume Zachery-Ec ker (Bld) [Entitic vol]Ordered By: Logan Cesar on 09-07-2023 Platelet mean volume (Bld) [Entitic vol] 10.0 fL 6.2-12.0 [facility] RBC Auto (Bld) [#/Vol]Ordere d By: Logan Cesar on 09-07-2023 RBC (Bld) [#/Vol] 2.90 10*6/uL 4.2-5.4 [facility] Serum or plasma calcium ernie urement (mass/volume)Ordered By: Logan Cesar on 09-07-2023 Calcium [Mass/Vol] 8.1 mg/dL 8.5-10.1 [facility] Serum or plasma creatinine m easurement (mass/volume)Ordered By: Logan Cesar on 09-07-2023 Creatinine [Mass/Vol] 0.64 mg/dL 0.55-1.02 [facility] Comment on above: The validity of the calculated GFR & GFRAA in patients over 70 years has not been determined. Clinical correlation is essential. Serum or plasma urea nitroge n measurement (mass/volume)Ordered By: Logan Cesar on 09-07-2023 Urea nitrogen [Mass/Vol] 15 mg/dL 7-18 [facility] Thin prep Papanicolaou smear with manual screeningOrdered By: Logan Cesar on 09-07-2023 Thin prep Papanicolaou smear with manual screening 2.4 g/dL 3.2-5.0 [facility] Thin prep Papanicolaou smear with manual screening 98 U/L 15-37 [facility] Thin prep Papanicolaou smear with manual screening 3 5-15 [facility] Blood manual differential co mment interpretation (narrative result)Ordered By: Osmar Raya on 09-04-2023 Manual differential comment Cas (Bld) [Interp] SCANNED [facility] Review by pathologistOrdered By: Osmar Raya on 09-04-2023 Pathologist review Cas (Unsp spec) [Interp] Reviewed [facility] Comment on above: Previous reported re sult: Talia messina Edited by: RGOEMILIE on 09/05/23:1431Neutrophilic leukocytosis.Normocytic anemia.Clinical correlation necessary.Charlie Platt M.D. 09/05/23 AMENDED REPORT 09/05/23 1431 PATH REV previously reported as: Talia messina Laboratory - Chemistry and C hemistry - challengeOrdered By: Ed Lipscomb on 09-03-2023 HCG ( test) Ql (U) Negative [facility] Comment on above: Very dilute urine sp ecimens, as indicated by a low specificgravity, may not contain outbound telemarketing representative levels of hCG. If is still suspected, a first morning urinespecimen should be collected 48 hours later and tested. No Panel InformationOrdered By: Ed Lipscomb on 09-03-2023 Negative [facility] Thin prep Papanicolaou smear with manual screeningOrdered By: Ed Lipscomb on 09-03-2023 Thin prep Papanicolaou smear with manual screening 115 mg/dL 74-106 [facility] Comment on above: MANAGEMENT OF PATIEN T CARE PER NURSING PROTOCOL Basophil percentageon 2023 Basophil percentage 176 mg/dL <200 [facility] Basophil percentage 128 mg/dL <199 [facility] Cholesterol [Mass/Vol] 176 mg/dL <200 [facility] Comment on above: <200 mg/dL Desirable 200-240 mg/dL Borderline >240 mg/dL High Risk Triglyceride [Mass/Vol] 128 mg/dL <199 [facility] Comment on above: The drugs N-Acetylcy steine and Metamizole may falsely depress this assay.Serum Triglycerides Reference Interval Normal <150 mg/dL Borderline high 150 - 199 mg/dL High 200 - 499 mg/dL Very High > or = 500 mg/dL Direct bilirubinOrdered By: Ed Lipscomb on 08-20-2023 Bilirubin.direct [Mass/Vol] 0.13 mg/dL 0.00-0.30 [facility] HIV 1 and HIV-2 antibody ass ay with HIV-1 p24 antigen detectionOrdered By: Ed Lipscomb on 08-20-2023 HIV 1+2 Ab+HIV1 p24 Ag IA Ql Non-Reactive Nonreactive [facility] Laboratory - Chemistry and C hemistry - challengeOrdered By: Ed Lipscomb on 08-20-2023 Magnesium [Mass/Vol] 2.2 mg/dL 1.6-2.6 [facility] Laboratory - CoagulationOrde red By: Ed Lipscomb on 08-20-2023 aPTT Coag (Bld) [Time] 27.0 s 24.1-36.2 [facility] PT Coag (PPP) [Time] 14.3 s 11.7-14.9 [facility] No Panel InformationOrdered By: Ed Lipscomb on 08-20-2023 Hepatitis A Antibody Total Positive Negative [facility] Comment on above: Comment: The HAV tot al antibody assay detects both IgG andIgM but does not differentiate between them. A negativeresult suggests susceptibility to infection. A positiveresult could be due to vaccination, previously resolvedinfection or active infection. Testing for HAV IgM shouldbe performed if active HAV infection is suspected. [facility]offers profiles that will automatically reflex positive HAVtotal antibody results to IgM (e.g., panel #[id number] HAVAntibody w/ Rfx).Performed at: [address] [id number] Director: Bonilla Haider PhD, Phone: [phone] Hepatitis C Antibody Non-Reactive Nonreactive [facility] Comment on above: Non Reactive: < 0.8 Equivocal: >/= 0.8 to < 1.0 Reactive: >/= 1.0The [facility] recommends that a reactive/equivocal HCV antibody result be followed up by the HCV Nucleic Acid Amplificationtest ([id number]) Positive Negative [facility] Non-Reactive Nonreactive [facility] Nasal Screen MRSA/MSSA [facility] Thyroid Stimulating Hormone (TSH) 1.67 uIU/mL 0.358-3.74 [facility] 14.3 SECONDS 11.7-14.9 [facility] 27.0 Seconds 24.1-36.2 [facility] 2.2 mg/dL 1.6-2.6 [facility] 1.67 uIU/mL 0.358-3.74 [facility] Nasal Screen MRSA/MSSA [facility] Serum hepatitis B virus surf kumar antibody IgG detectionOrdered By: Ed Lipscomb on 08-20-2023 HBV surface IgG Ql (S) Non-Reactive [facility] Comment on above: Non Reactive: Incons istent with immunity less than <10 mIU/mL Reactive: Consistent with immunity greater than or equal to 10 mIU/mL Serum or plasma cholesterol in HDL measurement (mass/volume)on 08-20-2023 Cholesterol in HDL [Mass/Vol] 74 mg/dL >40 [facility] Comment on above: The drugs N-Acetylcy steine and Metamizole may falsely depress this assay. Reference Range HDL <40 mg/dL Low HDL Cholesterol HDL >or= 60 mg/dL High HDL Cholesterol Serum or plasma cholesterol in VLDL measurement (mass/volume)on 08-20-2023 Cholesterol in VLDL [Mass/Vol] 26 mg/dL 5-40 [facility] Serum or plasma low density lipoprotein (LDL) cholesterol measurement (mass/volume)on 08-20-2023 Cholesterol in LDL [Mass/Vol] 76 mg/dL 0-130 [facility] Whole blood hemoglobin A1c/t otal hemoglobin ratio (mass fraction)on 08-20-2023 HbA1c (Bld) [Mass fraction] 5.3 % 3.8-5.6 [facility] Comment on above: Normal < 5.7 % Predi abetic 5.7 - 6.4 % Diabetic >or= 6.5 % Please note range changes. Whole blood international no rmalized ratio (INR)Ordered By: Ed Lipscomb on 08-20-2023 INR Coag (Bld) [Relative time] 1.1 {INR} [facility] Absolute lymphocyte counton 03-30-2023 Lymphocytes Auto (Unsp spec) [#/Vol] 1.58 10*3/uL 0.83-4.51 [facility] Basophil percentageon 2022 Basophils/100 WBC (Bld) 0.6 % 0-1 [facility] Bilirubin [Mass/Vol] 0.30 mg/dL 0.20-1.00 [facility] Comment on above: For patients on eltr ombopag therapy, use of Dimension [place] TBIL is not recommended. Chloride [Moles/Vol] 109 mmol/L 98-107 [facility] Cholesterol [Mass/Vol] 186 mg/dL <200 [facility] Comment on above: <200 mg/dL Desirable 200-240 mg/dL Borderline >240 mg/dL High Risk Eosinophils/100 WBC (Bld) 1.9 % 0-5 [facility] Glucose [Mass/Vol] 108 mg/dL 74-106 [facility] Comment on above: Fasting Glucose resu lt from 100 to 125 mg/dL suggests IMPAIRED HOMEOSTASIS per A.D.A. criteria. Neutrophils (Bld) [#/Vol] 5.3 10*3/uL 2.0-7.7 [facility] Neutrophils/100 WBC (Bld) 68.9 % 47-70 [facility] Potassium [Moles/Vol] 3.7 mmol/L 3.5-5.1 [facility] Protein [Mass/Vol] 8.1 g/dL 6.4-8.2 [facility] Sodium [Moles/Vol] 140 mmol/L 136-145 [facility] Triglyceride [Mass/Vol] 98 mg/dL <199 [facility] Comment on above: The drugs N-Acetylcy steine and Metamizole may falsely depress this assay.Serum Triglycerides Reference Interval Normal <150 mg/dL Borderline high 150 - 199 mg/dL High 200 - 499 mg/dL Very High > or = 500 mg/dL WBC (Bld) [#/Vol] 7.7 10*3/uL 4.4-11.0 [facility] Blood erythrocytes count (nu mber/volume)on 03-30-2023 RBC (Bld) [#/Vol] 4.77 10*6/uL 4.2-5.4 [facility] Blood hemoglobin measurement (mass/volume)on 03-30-2023 Hemoglobin (Bld) [Mass/Vol] 14.9 g/dL 12.0-15.0 [facility] Blood lymphocytes/100 leukoc yteson 03-30-2023 Lymphocytes/100 WBC (Bld) 20.5 % 19-41 [facility] Blood monocytes/100 leukocyt eson 03-30-2023 Monocytes/100 WBC (Bld) 7.5 % 0-10 [facility] Blood platelet mean volumeon 03-30-2023 Platelet mean volume (Bld) [Entitic vol] 10.0 fL 6.2-12.0 [facility] Determination of erythrocyte mean corpuscular volume (MCV)on 03-30-2023 MCV (RBC) [Entitic vol] 97.5 fL 81-99 [facility] Hematocrit Auto (Bld) [Volum e fraction]on 03-30-2023 Hematocrit (Bld) [Volume fraction] 46.5 % 37-47 [facility] Laboratory - Chemistry and C hemistry - challengeon 03-30-2023 ALP [Catalytic activity/Vol] 87 U/L 45-117 [facility] ALT [Catalytic activity/Vol] 43 U/L 13-56 [facility] CO2 [Moles/Vol] 23.0 mmol/L 21.0-32.0 [facility] Globulin (S) [Mass/Vol] 4.0 g/dL 2.2-4.2 [facility] Urea nitrogen/Creatinine [Mass ratio] 17.8 mg/mg 10-20 [facility] Laboratory - Hematology and Cell countson 03-30-2023 Erythrocyte distribution width (RBC) [Entitic vol] 52.0 fL 35.1-43.9 [facility] Erythrocyte distribution width (RBC) [Ratio] 14.5 % 11.6-14.6 [facility] Immature granulocytes/100 WBC (Bld) 0.600 % 0.0-0.9 [facility] Comment on above: IG% - Immature Granu locytes (promyelocytes, myelocytes and metamyelocytes) > 1% indicates that a LEFT SHIFT is Present. MCH (RBC) [Entitic mass] 31.2 pg 27.0-32.0 [facility] Nucleated RBC/100 WBC (Bld) [Ratio] 0 % 0-5 [facility] MCHC Auto (RBC) [Mass/Vol]on 03-30-2023 MCHC (RBC) [Mass/Vol] 32.0 g/dL 32-36 [facility] No Panel Informationon 03-30 Estimated GFR (MDRD) Amer 74 mL/min >60 [facility] Comment on above: GFR Calc Estimated GFR (MDRD) Non-Af Amer 61 mL/min >60 [facility] Comment on above: Non- GFR Calc Thyroid Stimulating Hormone (TSH) 1.17 uIU/mL 0.358-3.74 [facility] Platelets bldon 03-30-2023 Platelets (Bld) [#/Vol] 264 10*3/uL 150-450 [facility] Serum or plasma albumin ernie urement (mass/volume)on 03-30-2023 Albumin [Mass/Vol] 4.1 g/dL 3.2-5.0 [facility] Serum or plasma albumin/glob ulin mass ratioon 03-30-2023 Albumin/Globulin [Mass ratio] 1.0 {ratio} 0.9-2.4 [facility] Serum or plasma calcium ernie urement (mass/volume)on 03-30-2023 Calcium [Mass/Vol] 9.2 mg/dL 8.5-10.1 [facility] Serum or plasma cholesterol in HDL measurement (mass/volume)on 03-30-2023 Cholesterol in HDL [Mass/Vol] 88 mg/dL >40 [facility] Comment on above: The drugs N-Acetylcy steine and Metamizole may falsely depress this assay. Reference Range HDL <40 mg/dL Low HDL Cholesterol HDL >or= 60 mg/dL High HDL Cholesterol Serum or plasma cholesterol in VLDL measurement (mass/volume)on 03-30-2023 Cholesterol in VLDL [Mass/Vol] 20 mg/dL 5-40 [facility] Serum or plasma creatinine m easurement (mass/volume)on 03-30-2023 Creatinine [Mass/Vol] 1.01 mg/dL 0.55-1.02 [facility] Comment on above: The validity of the calculated GFR & GFRAA in patients over 70 years has not been determined. Clinical correlation is essential. Serum or plasma low density lipoprotein (LDL) cholesterol measurement (mass/volume)on 03-30-2023 Cholesterol in LDL [Mass/Vol] 78 mg/dL 0-130 [facility] Serum or plasma urea nitroge n measurement (mass/volume)on 03-30-2023 Urea nitrogen [Mass/Vol] 18 mg/dL 7-18 [facility] Thin prep Papanicolaou smear with manual screeningon 03-30-2023 Thin prep Papanicolaou smear with manual screening 22 U/L 15-37 [facility] Thin prep Papanicolaou smear with manual screening 8 5-15 [facility] ANES POSTPROC EVALon 023 ANES POSTPROC EVAL HNO ID: [id number] Author: Romy Nieto MD Service: Anesthesiology Author Type: Anesthesiologist Type: Anesthesia Postprocedure Evaluation Filed: 11/10/2022 1:23 PM Note Text: POST ANESTHESIA EVALUATION NOTE : 1970 Procedure Summary Date: 11/10/22 Room / Location: [facility] Endoscopy Anesthesia Start: 1238 Anesthesia Stop: 1302 Procedure: COLONOSCOPY DIAGNOSTIC Diagnosis: Encounter for screening for malignant neoplasm of colon (Screening for colorectal malignant neoplasm) Scheduled Providers: Umang Roy MD; Romy Nieto MD; Garret Woo APRN.MANAGER ENVIRONMENTAL AFFAIRS Responsible Provider: Romy Nieto MD Anesthesia Type: MAC ASA Status: 3 Anesthesia Type: MAC Last Vitals Vitals Value Taken Time BP 131/78 11/10/22 1315 Temp 36 ?C (96.8 ?F) 11/10/22 1305 Pulse 68 11/10/22 1322 Resp 12 11/10/22 1322 SpO2 94 % 11/10/22 1322 Vitals shown include unvalidated device data. Post Anesthesia Patient Status Patient Evaluation: PACU. PACU/ICU Patient Condition: stable. Anticipated Disposition: phase 2 then home. Neurological Status: aware and responsive. Pulmonary Status: breathing comfortably on room air Airway Control: returned to baseline unsupported. Cardiovascular Status: stable. Pain Management: clinically adequate - multimodal analgesia pain management approach Postoperative Hydration: acceptable. Intraoperative Events: no significant anesthesia events Post Operative Nausea/Vomiting Status: no significant post operative nausea or vomiting Recommendation: continue current plan of care. Anesthesia Observations No Documentation SIGNATURE: Romy Nieto MD PATIENT NAME: Bruno Patterson DATE: November 10, 2022 TIME: 1:23 PM CSN: [id number] Normal [facility] ANES PRE-OPon 11-10-2022 ANES PRE-OP HNO ID: [id number] Author: Romy Nieto MD Service: Anesthesiology Author Type: Anesthesiologist Type: Anesthesia Preprocedure Evaluation Filed: 11/10/2022 12:25 PM Note Text: ANESTHESIOLOGY DAY OF SURGERY NOTE : 1970 Procedure Information Date/Time: 11/10/22 1345 Scheduled providers: Umang Roy MD; Romy Nieto MD; Garret Woo APRN.MANAGER ENVIRONMENTAL AFFAIRS Procedure: COLONOSCOPY DIAGNOSTIC Location: [facility] Endoscopy Estimated body mass index is 39.64 kg/m? as calculated from the following: Height as of 11/06/22: 165.1 cm (5' 5). Weight as of 11/06/22: 108 kg (238 lb 3.2 oz). 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 Tracheostomy tube not present Mallampati: II. TM distance: >3 FB. Neck ROM: full ROM without neurological symptoms. Mouth opening: adequate. Short neck: no. Thick neck: no DENTAL Dental findings: teeth intact. Additional exam findings: yes. CARDIOVASCULAR Rhythm: regular PULMONARY Breath sounds clear to auscultation. II - ANESTHESIA PLAN ASA Score: 3 Anesthetic Plan: MAC The patient is not a current smoker. NPO Status: adequate Anesthetic plan additional comments: Spinal cord stimulator in place. . Beta John Monitoring Plan Monitoring plan: standard ASA. Post Procedure Analgesic Plan Postoperative analgesic plan: multimodal analgesia. Patient / Surrogate agrees to blood products: blood products not planned DNR status not reviewed with patient and/or family prior to surgery. Significant changes in the patient condition since the History and Physical, not otherwise documented in primary service progress note: no. Potential Anesthesia issues that may suggest increased risk of complications or contraindication to planned procedure: none. Vitals Value Taken Time BP 139/87 11/10/22 1219 Pulse Resp 16 11/10/22 1219 Temp 36.2 ?C (97.2 ?F) 11/10/22 1219 SpO2 97 % 11/10/22 1219 Outpatient Medications as of 11/10/2022 Medication Sig - rosuvastatin (CRESTOR) 5 mg tablet Take 10 mg by mouth once daily. - lamoTRIgine (LAMICTAL) 100 mg tablet Take 1 tablet by mouth once daily. - methylPREDNISolone (MEDROL, NANCIE,) 4 mg Dose-Pack Take 1 tablet by mouth as directed. As Instructed per package (Patient not taking: Reported on 11/06/2022) - dexAMETHasone 0.1 % ophthalmic solution 3 drops 3 times a day to affected ear as needed vertigo - triamterene-hydroCHLOROth iazide (MAXZIDE-25) 37.5-25 mg per tablet Take 1 tablet by mouth once daily. (Patient not taking: Reported on 11/06/2022) - celecoxib (CELEBREX) 200 mg capsule Take 200 mg by mouth once daily. - drospirenone-e.estradiol- lm.FA (BEYAZ) 3-0.02-0.451 mg (24) (4) tab Take 1 tablet by mouth once daily. (Patient not taking: Reported on 11/06/2022) - BIOFLAVONOID, LEMON, BULK, MISC (Patient not taking: Reported on 11/06/2022) - ascorbic acid (BUFFERED VITAMIN C ORAL) Take by mouth. (Patient not taking: Reported on 11/06/2022) - methylsulfonylmethane (MSM ORAL) Take 1,000 mg by mouth. (Patient not taking: Reported on 11/06/2022) - Lysine 500 mg tab Take by mouth. - niacin (NIACIN) 100 mg tablet Take 100 mg by mouth daily with breakfast. (Patient not taking: Reported on 11/06/2022) - hyalur ac/chond sul/colg II/AA (HYALURONIC ACID, CHOND-COLLGN, ORAL) Take 50 mg by mouth. - venlafaxine (EFFEXOR) 37.5 mg tablet Take 37.5 mg by mouth twice daily. - aMILoride (MIDAMOR) 5 mg tablet 5 mg once daily. - acetaminophen (TYLENOL) 325 mg tablet Take 2 tablets by mouth every 4 hours as needed for Pain (post op total joint pain). - senna-docusate (SENOKOT-S) 8.6-50 mg per tablet Take 2 tablets by mouth twice daily. - potassium chloride ER (K-DUR, KLOR-CON) 20 mEq tablet Take 1 tablet by mouth twice daily. (Patient taking differently: Take 20 mEq by mouth three times daily.) - melatonin 10 mg tab Take 10 mg by mouth as needed. - magnesium oxide 400 mg cap Take 1 capsule by mouth once daily. Twice a week (Patient not taking: Reported on 11/06/2022) - ondansetron orally disintegrating (ZOFRAN ODT) 4 mg disintegrating tablet Take 1 tablet by mouth every 8 hours as needed for Nausea/Vomiting. - meclizine (ANTIVERT) 12.5 mg tab as needed. - Omeprazole 40 mg capsule Take by mouth once daily. - cetirizine-pseudoephedrin e (ZYRTEC-D) 5-120 mg per tablet Take 1 tablet by mouth. (Patient not taking: Reported on 11/06/2022) - cholecalciferol (VITAMIN D3) 1,000 unit tab ta (more content not included)... Normal [facility] Colon[facility] Gastrointestinal Endoscopy Patient Name: Bruno Patterson Procedure Date: 11/10/2022 12:29 PM Date of : 1970 Admit Type: Outpatient Age: 52 Room: [facility] Gender: Female Note Status: Finalized Attending MD: Umang Roy MD Procedure: Colonoscopy Indications: Screening for colorectal malignant neoplasm Providers: Umang Roy MD Patient Profile: This is a 52 year old female. Refer to note in patient chart for documentation of history and physical. Last Colonoscopy: 10 years ago. Referring Physician: Umang Roy MD (Referring MD) Medicines: See the Anesthesia note for documentation of the administered medications Complications: No immediate complications. Estimated blood loss: None. Requesting Provider: Procedure: Pre-Anesthesia Assessment: - Prior to the procedure, a History and Physical was performed, and patient medications and allergies were reviewed. The patient's tolerance of previous anesthesia was also reviewed. The risks and benefits of the procedure and the sedation options and risks were discussed with the patient. All questions were answered, and informed consent was obtained. Prior Anticoagulants: The patient has taken no anticoagulant or antiplatelet agents. ASA Grade Assessment: III - A patient with severe systemic disease. After reviewing the risks and benefits, the patient was deemed in satisfactory condition to undergo the procedure. After I obtained informed consent, the scope was passed under direct vision. Throughout the procedure, the patient's blood pressure, pulse, and oxygen saturations were monitored continuously. The Colonoscope was introduced through the anus and advanced to the cecum, identified by appendiceal orifice and ileocecal valve. The colonoscopy was performed without difficulty. The patient tolerated the procedure well. The quality of the bowel preparation was good. The ileocecal valve, appendiceal orifice, and rectum were photographed. Scope Withdrawal Time: 0 hours 7 minutes 44 seconds Moderate Sedation: MAC anesthesia was administered by the anesthesia team. Total Procedure Duration: 0 hours 14 minutes 56 seconds Findings: The perianal and digital rectal examinations were normal. A few small-mouthed diverticula were found in the sigmoid colon. The exam was otherwise without abnormality on direct and retroflexion views. Impression: - Diverticulosis in the sigmoid colon. - The examination was otherwise normal on direct and retroflexion views. - No specimens collected. Recommendation: - Patient has a contact number available for emergencies. The signs and symptoms of potential delayed complications were discussed with the patient. Return to normal activities tomorrow. Written discharge instructions were provided to the patient. - Resume previous diet. - Continue present medications. - Repeat colonoscopy in 10 years for screening purposes. - Return to primary care physician PRN. Procedure Code(s): --- Professional --- 64706, Colonoscopy, flexible; diagnostic, including collection of specimen(s) by brushing or washing, when performed (separate procedure) Diagnosis Code(s): --- Professional --- Z12.11, Encounter for screening for malignant neoplasm of colon K57.30, Diverticulosis of large intestine without perforation or abscess without bleeding CPT copyright 2020 [employer]. All rights reserved. The codes documented in this report are preliminary and upon production maintenance technician review may be revised to meet current compliance requirements. Attending Participation: I personally performed the entire procedure. Scope In: 12:43:44 PM Scope Out: 12:58:40 PM MD Umang Wood MD 11/10/2022 1:02:11 PM This report has been signed electronically by Umang Roy MD Number of Addenda: 0 Note Initiated On: 11/10/2022 12:29 PM Estimated Blood Loss: Estimated blood loss: none. Normal [facility] [facility] HISTORY PHYSICALon HISTORY PHYSICAL HNO ID: [id number] Author: Umang Roy MD Service: General Surgery Author Type: Physician Type: HANDP Filed: 11/10/2022 12:39 PM Note Text: HISTORY AND PHYSICAL Bruno Patterson 1970 REFERRING PHYSICIAN: No ref. provider found [...] package (Patient not taking: Reported on 11/06/2022) triamterene-hydroCHLOROth iazide (MAXZIDE-25) 37.5-25 mg per tablet Take 1 tablet by mouth once daily. (Patient not taking: Reported on 11/06/2022) drospirenone-e.estradiol- lm.FA (BEYAZ) 3-0.02-0.451 mg (24) (4) tab Take [...] week (Patient not taking: Reported on 11/06/2022) cetirizine-pseudoephedrin e (ZYRTEC-D) 5-120 mg per tablet Take 1 [...] clean Drug use: No FAMILY HISTORY: FAMILY (more content not included)... Normal [facility] CT CARDIAC SCORINGon 023 CT CARDIAC SCORING Patient Name: BRUNO PATTERSON STUDY: CT CARDIAC SCORING; 10/09/2022 2:35 pm INDICATION: Pure hypercholesterolemia, unspecified Essential (primary) hypertension. COMPARISON: None. ACCESSION NUMBER(S): [id number] ORDERING CLINICIAN: LOGAN HADDAD TECHNIQUE: Using prospective ECG gating, CT scan of the coronary arteries was performed without intravenous contrast. Coronary calcium scoring was performed according to the method of Agatston. FINDINGS: The score and distribution of calcium in the coronary arteries is as follows: Left Main Coronary: 0. Left Anterior Descendin. Left Circumflex: 13.81. Right Coronary Artery: 93.54. Total: 107.35. The lungs are clear. The ascending aorta is aneurysmal measuring up to 4.1 cm in diameter. The heart is not enlarged. No pericardial effusion is evident. No hilar or mediastinal lymphadenopathy is evident. Structures in the visualized upper abdomen are grossly unremarkable. IMPRESSION: 1. Coronary artery calcium score of 107.35*. 2. Borderline aneurysmal ascending aorta. *Coronary artery calcium scoring may be helpful in predicting the risk for future coronary heart disease events. According to the [place] [employer] Clinical Expert Consensus Task Force, such testing provides important prognostic information in patients with more than one coronary heart disease risk factor. The coronary artery calcium score correlates with the annual risk of a non-fatal myocardial infarction or coronary heart disease . Coronary artery score Annual Risk 0-99 0.4% 100-399 1.3% >400 2.4% These three breakpoints correspond to lower, intermediate and high risk states for future coronary events. Such information should be used, along with appropriate clinical judgment, to make decisions regarding the intensity of risk factor management strategies to treat blood lipids and to modify other non-lipid coronary risk factors. Reference: Clair P et al. Circulation. 2007; 115:402-426 Electronically signed by: MINISTERIO VALENCIA MD Normal [facility] CT Cardiac Scoringon 023 CT Cardiac Scoring Normal -Uni v [facility] Work Phone: Mamm - Screening Mammogram w / Tomosynthesison 10-09-2022 MG Breast Screening Normal -Un iv [facility] Work Phone: Absolute lymphocyte counton 09-28-2022 Lymphocytes Auto (Unsp spec) [#/Vol] 2.43 10*3/uL 0.83-4.51 [facility] Basophil percentageon 2022 Basophils/100 WBC (Bld) 0.7 % 0-1 [facility] Bilirubin [Mass/Vol] 0.40 mg/dL 0.20-1.00 [facility] Comment on above: For patients on eltr ombopag therapy, use of Dimension [place] TBIL is not recommended. Chloride [Moles/Vol] 107 mmol/L 98-107 [facility] Cholesterol [Mass/Vol] 255 mg/dL <200 [facility] Comment on above: <200 mg/dL Desirable 200-240 mg/dL Borderline >240 mg/dL High Risk Eosinophils/100 WBC (Bld) 2.0 % 0-5 [facility] Glucose [Mass/Vol] 93 mg/dL 74-106 [facility] Neutrophils (Bld) [#/Vol] 8.5 10*3/uL 2.0-7.7 [facility] Neutrophils/100 WBC (Bld) 69.1 % 47-70 [facility] Potassium [Moles/Vol] 3.6 mmol/L 3.5-5.1 [facility] Protein [Mass/Vol] 8.1 g/dL 6.4-8.2 [facility] Sodium [Moles/Vol] 141 mmol/L 136-145 [facility] Triglyceride [Mass/Vol] 100 mg/dL <199 [facility] Comment on above: The drugs N-Acetylcy steine and Metamizole may falsely depress this assay.Serum Triglycerides Reference Interval Normal <150 mg/dL Borderline high 150 - 199 mg/dL High 200 - 499 mg/dL Very High > or = 500 mg/dL WBC (Bld) [#/Vol] 12.4 10*3/uL 4.4-11.0 [facility] Blood erythrocytes count (nu mber/volume)on 09-28-2022 RBC (Bld) [#/Vol] 4.56 10*6/uL 4.2-5.4 [facility] Blood hemoglobin measurement (mass/volume)on 09-28-2022 Hemoglobin (Bld) [Mass/Vol] 13.8 g/dL 12.0-15.0 [facility] Blood lymphocytes/100 leukoc yteson 09-28-2022 Lymphocytes/100 WBC (Bld) 19.6 % 19-41 [facility] Blood monocytes/100 leukocyt eson 09-28-2022 Monocytes/100 WBC (Bld) 6.1 % 0-10 [facility] Blood platelet mean volumeon 09-28-2022 Platelet mean volume (Bld) [Entitic vol] 9.8 fL 6.2-12.0 [facility] Determination of erythrocyte mean corpuscular volume (MCV)on 09-28-2022 MCV (RBC) [Entitic vol] 96.1 fL 81-99 [facility] Hematocrit Auto (Bld) [Volum e fraction]on 09-28-2022 Hematocrit (Bld) [Volume fraction] 43.8 % 37-47 [facility] Iron measurement (mass/mass) on 09-28-2022 Iron (Unsp spec) [Mass/Mass] 70 ug/dL 50-170 [facility] Laboratory - Chemistry and C hemistry - challengeon 09-28-2022 ALP [Catalytic activity/Vol] 96 U/L 45-117 [facility] ALT [Catalytic activity/Vol] 36 U/L 13-56 [facility] CO2 [Moles/Vol] 25.0 mmol/L 21.0-32.0 [facility] Cobalamin (Vitamin B12) [Mass/Vol] 572 pg/mL 211-911 [facility] Globulin (S) [Mass/Vol] 4.3 g/dL 2.2-4.2 [facility] Magnesium [Mass/Vol] 2.5 mg/dL 1.6-2.6 [facility] Urea nitrogen/Creatinine [Mass ratio] 19.0 mg/mg 10-20 [facility] Laboratory - Hematology and Cell countson 09-28-2022 Erythrocyte distribution width (RBC) [Entitic vol] 52.3 fL 35.1-43.9 [facility] Erythrocyte distribution width (RBC) [Ratio] 14.8 % 11.6-14.6 [facility] Immature granulocytes/100 WBC (Bld) 2.500 % 0.0-0.9 [facility] Comment on above: IG% - Immature Granu locytes (promyelocytes, myelocytes and metamyelocytes) > 1% indicates that a LEFT SHIFT is Present. MCH (RBC) [Entitic mass] 30.3 pg 27.0-32.0 [facility] Nucleated RBC/100 WBC (Bld) [Ratio] 0 % 0-5 [facility] MCHC Auto (RBC) [Mass/Vol]on 09-28-2022 MCHC (RBC) [Mass/Vol] 31.5 g/dL 32-36 [facility] No Panel Informationon 09-28 Estimated GFR (MDRD) Amer 75 mL/min >60 [facility] Comment on above: GFR Calc Estimated GFR (MDRD) Non-Af Amer 62 mL/min >60 [facility] Comment on above: Non- GFR Calc Thyroid Stimulating Hormone (TSH) 12.10 uIU/mL 0.358-3.74 [facility] Total Iron Binding Capacity 344 ug/dL 250-450 [facility] Platelets bldon 09-28-2022 Platelets (Bld) [#/Vol] 321 10*3/uL 150-450 [facility] Serum or plasma albumin ernie urement (mass/volume)on 09-28-2022 Albumin [Mass/Vol] 3.8 g/dL 3.2-5.0 [facility] Serum or plasma albumin/glob ulin mass ratioon 09-28-2022 Albumin/Globulin [Mass ratio] 0.9 {ratio} 0.9-2.4 [facility] Serum or plasma calcium ernie urement (mass/volume)on 09-28-2022 Calcium [Mass/Vol] 9.1 mg/dL 8.5-10.1 [facility] Serum or plasma cholesterol in HDL measurement (mass/volume)on 09-28-2022 Cholesterol in HDL [Mass/Vol] 87 mg/dL >40 [facility] Comment on above: The drugs N-Acetylcy steine and Metamizole may falsely depress this assay. Reference Range HDL <40 mg/dL Low HDL Cholesterol HDL >or= 60 mg/dL High HDL Cholesterol Serum or plasma cholesterol in VLDL measurement (mass/volume)on 09-28-2022 Cholesterol in VLDL [Mass/Vol] 20 mg/dL 5-40 [facility] Serum or plasma creatinine m easurement (mass/volume)on 09-28-2022 Creatinine [Mass/Vol] 1.00 mg/dL 0.55-1.02 [facility] Comment on above: The validity of the calculated GFR & GFRAA in patients over 70 years has not been determined. Clinical correlation is essential. Serum or plasma ferritin sandy surement (mass/volume)on 09-28-2022 Ferritin [Mass/Vol] 90 ng/mL 8-252 [facility] Serum or plasma folate measu rement (mass/volume)on 09-28-2022 Folate [Mass/Vol] 29.40 ng/mL 3.1-55.4 [facility] Serum or plasma iron saturat ion measurement (mass fraction)on 09-28-2022 Iron saturation [Mass fraction] 20.3 % 15.0-55.0 [facility] Serum or plasma low density lipoprotein (LDL) cholesterol measurement (mass/volume)on 09-28-2022 Cholesterol in LDL [Mass/Vol] 148 mg/dL 0-130 [facility] Serum or plasma urea nitroge n measurement (mass/volume)on 09-28-2022 Urea nitrogen [Mass/Vol] 19 mg/dL 7-18 [facility] Thin prep Papanicolaou smear with manual screeningon 09-28-2022 Thin prep Papanicolaou smear with manual screening 15 U/L 15-37 [facility] Thin prep Papanicolaou smear with manual screening 9 5-15 [facility] No Panel Informationon 08-21 Thyroid Stimulating Hormone (TSH) 6.46 uIU/mL 0.358-3.74 [facility] LMPon 05-29-2022 Last menstrual period start date 29May2022 [facility] 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 No Pap smear was sent, she is high risk HPV negative. Her cycles are irregular, consistent with the irregular ovulation of the perimenopause. She will call me with any concerns. Her routine mammogram was ordered with tomosynthesis and she is planning on her colonoscopy. I will see her in 1 year. Thank you. Chief Complaint yearly, no bedspread cutter hand. cb History of Present IllnessThisatnam is a 51-year-old female who comes today for an annual exam. She was last seen in February 2021. Her last Pap in 2019 was negative, high risk HPV negative. She had a spinal cord stimulator placed October 2021. Her cycles are irregular, consistent with the perimenopause. She is currently on her cycle that started on May 29 but the previous one was about 3 months ago. She was on Slynd but stopped due to breakthrough bleeding. She has no clots or pain. No discharge, no change in bowel habits or dysuria. We discussed occasional stress incontinence symptoms. She has her colonoscopy planned for the near future. 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) Screening examination for STD (sexually transmitted disease) (V74.5) (Z11.3) Screening mammogram, encounter for (V76.12) (Z12.31) Family History Mother Family history of hypertension (V17.49) (Z82.49) Father Family history of diabetes mellitus (V18.0) (Z83.3) Family history of hypertension (V17.49) (Z82.49) Family history of malignant neoplasm (V16.9) (Z80.9) Social History Problems Current every day smoker (305.1) (F17.200) Allergies Medication Cymbalta Recorded By: Chaim Mcallister; 06/11/2017 2:54:45 PM Penicillins Recorded By: Chaim Mcallister; 06/11/2017 2:54:45 PM Current Meds Medication NameInstruction aMILoride-hydroCHLOROthia zide 5-50 MG Oral Tablet buPROPion HCl ER (XL) 300 MG Oral Tablet Extended Release 24 Hour CeleBREX 200 MG Oral Capsule Ciprodex 0.3-0.1 % Otic Suspension Dexamethasone Sodium Phosphate 0.1 % Ophthalmic Solution Dicyclomine HCl - 10 MG Oral Capsule Esomeprazole Magnesium 20 MG Oral Capsule Delayed Release Gabapentin 600 MG Oral Tablet Levothyroxine Sodium 75 MCG Oral Tablet Meclizine HCl - 12.5 MG Oral Tablet Nasonex 50 MCG/ACT SUSP Norethindrone 0.35 MG Oral TabletTAKE 1 TABLET DAILY. raNITIdine HCl 150 MG TABS Slynd 4 MG Oral TabletTAKE 1 TABLET BY MOUTH EVERY DAY Topamax 100 MG Oral Tablet traMADol HCl - 50 MG Oral Tablet Triamterene-HCTZ 37.5-25 MG Oral Tablet Zofran 4 MG TABS Vitals Vital Signs Recorded: 29May2022 02:18PM [id number] Height5 ft 5 in Lggnra376 lb BMI Fvtkbmxlfj43.44 kg/m2 BSA Calculated2.13 [id number] Physical Exam Genitourinary: anorectal exam: normal tone. No masses, no defect Cervix: Normal. a Pap smear was not performed. Constitutional: Alert and in no acute distress. Well developed, well nourished. Head and Face: Head and face: Normal. Eyes: Normal external exam - nonicteric sclera, extraocular movements intact (EOMI) and no ptosis. Neck: No neck asymmetry. Supple. Thyroid not enlarged and there were no palpable thyroid nodules. Pulmonary: No respiratory distress. Chest: Breasts: Normal appearance, no nipple discharge and no skin changes. Palpation of breasts and axillae: No palpable mass and no axillary lymphadenopathy. Abdomen: Soft nontender; no abdominal mass palpated. No organomegaly. No hernias. Genitourinary: External genitalia: Normal. No inguinal lymphadenopathy. Bartholin's Urethral and Skenes Glands: Normal. Urethra: Normal. Bladder: Normal on palpation. Vagina: Normal. Cervix: Normal. Uterus: Normal. Right Adnexa/parametria: Normal. Left Adnexa/parametria: Normal. Inspection of Perianal Area: Normal. Musculoskeletal: No joint swelling seen, normal movements of all extremities. Skin: Normal skin color and pigmentation, normal skin turgor, and no rash. Neurologic: Non-focal. Grossly intact. Psychiatric: Alert and oriented x 3. Affect normal to patient baseline. Mood: Appropriate. Signatures Electronically signed by : Feli Anthony MD; Jun 03 2022 7:27PM EST (Author) Normal [employer] EPIL EEG ROUTINEon [facility] Absolute lymphocyte counton 05-08-2022 Lymphocytes Auto (Unsp spec) [#/Vol] 1.84 10*3/uL 0.83-4.51 [facility] Basophil percentageon 2021 Basophils/100 WBC (Bld) 0.8 % 0-1 [facility] Bilirubin [Mass/Vol] 0.20 mg/dL 0.20-1.00 [facility] Comment on above: For patients on eltr ombopag therapy, use of Dim[place] TBIL is not recommended. Chloride [Moles/Vol] 109 mmol/L 98-107 [facility] Cholesterol [Mass/Vol] 242 mg/dL <200 [facility] Comment on above: <200 mg/dL Desirable 200-240 mg/dL Borderline >240 mg/dL High Risk Eosinophils/100 WBC (Bld) 2.6 % 0-5 [facility] Glucose [Mass/Vol] 91 mg/dL 74-106 [facility] Neutrophils (Bld) [#/Vol] 5.2 10*3/uL 2.0-7.7 [facility] Neutrophils/100 WBC (Bld) 65.1 % 47-70 [facility] Potassium [Moles/Vol] 3.8 mmol/L 3.5-5.1 [facility] Protein [Mass/Vol] 7.6 g/dL 6.4-8.2 [facility] Sodium [Moles/Vol] 142 mmol/L 136-145 [facility] Triglyceride [Mass/Vol] 116 mg/dL <199 [facility] Comment on above: The drugs N-Acetylcy steine and Metamizole may falsely depress this assay.Serum Triglycerides Reference Interval Normal <150 mg/dL Borderline high 150 - 199 mg/dL High 200 - 499 mg/dL Very High > or = 500 mg/dL WBC (Bld) [#/Vol] 8.0 10*3/uL 4.4-11.0 [facility] Blood erythrocytes count (nu mber/volume)on 05-08-2022 RBC (Bld) [#/Vol] 4.44 10*6/uL 4.2-5.4 [facility] Blood hemoglobin measurement (mass/volume)on 05-08-2022 Hemoglobin (Bld) [Mass/Vol] 13.8 g/dL 12.0-15.0 [facility] Blood lymphocytes/100 leukoc yteson 05-08-2022 Lymphocytes/100 WBC (Bld) 23.1 % 19-41 [facility] Blood monocytes/100 leukocyt eson 05-08-2022 Monocytes/100 WBC (Bld) 7.4 % 0-10 [facility] Blood platelet mean volumeon 05-08-2022 Platelet mean volume (Bld) [Entitic vol] 10.1 fL 6.2-12.0 [facility] Determination of erythrocyte mean corpuscular volume (MCV)on 05-08-2022 MCV (RBC) [Entitic vol] 96.6 fL 81-99 [facility] Hematocrit Auto (Bld) [Volum e fraction]on 05-08-2022 Hematocrit (Bld) [Volume fraction] 42.9 % 37-47 [facility] Laboratory - Chemistry and C hemistry - challengeon 05-08-2022 ALP [Catalytic activity/Vol] 91 U/L 45-117 [facility] ALT [Catalytic activity/Vol] 30 U/L 13-56 [facility] CO2 [Moles/Vol] 24.0 mmol/L 21.0-32.0 [facility] Cobalamin (Vitamin B12) [Mass/Vol] 271 pg/mL 211-911 [facility] Globulin (S) [Mass/Vol] 4.2 g/dL 2.2-4.2 [facility] Urea nitrogen/Creatinine [Mass ratio] 23.5 mg/mg 10-20 [facility] - Hematology and Cell countson 05-08-2022 Erythrocyte distribution width (RBC) [Entitic vol] 52.6 fL 35.1-43.9 [facility] Erythrocyte distribution width (RBC) [Ratio] 14.7 % 11.6-14.6 [facility] Immature granulocytes/100 WBC (Bld) 1.000 % 0.0-0.9 [facility] Comment on above: IG% - Immature Granu locytes (promyelocytes, myelocytes and metamyelocytes) > 1% indicates that a LEFT SHIFT is Present. MCH (RBC) [Entitic mass] 31.1 pg 27.0-32.0 [facility] Nucleated RBC/100 WBC (Bld) [Ratio] 0 % 0-5 [facility] MCHC Auto (RBC) [Mass/Vol]on 05-08-2022 MCHC (RBC) [Mass/Vol] 32.2 g/dL 32-36 [facility] No Panel Informationon 05-08 C-Reactive Protein High Sensitivity 4.45 mg/L <3.00 [facility] Comment on above: Low Relative Risk of CVD <1.0 mg/L Average Relative Risk of CVD 1.0 - 3.0 mg/L High Relative Risk of CVD >3.0 mg/L Estimated GFR (MDRD) Amer 81 mL/min >60 [facility] Comment on above: GFR Calc Estimated GFR (MDRD) Non-Af Amer 67 mL/min >60 [facility] Comment on above: Non- GFR Calc Thyroid Stimulating Hormone (TSH) 7.86 uIU/mL 0.358-3.74 [facility] Vitamin D 25-Hydroxy 25.5 ng/mL [facility] Comment on above: Vitamin D 25(OH) Sta tus Range Deficiency <20 ng/mL (50nmol/L) Insufficiency 20 - 30 ng/mL (50 - 75 nmol/L) Sufficiency 30 - 100 ng/mL (75 - 250 nmol/L) Toxicity >100 ng/mL (>250 nmol/L) Platelets bldon 05-08-2022 Platelets (Bld) [#/Vol] 282 10*3/uL 150-450 [facility] Serum or plasma albumin ernie urement (mass/volume)on 05-08-2022 Albumin [Mass/Vol] 3.4 g/dL 3.2-5.0 [facility] Serum or plasma albumin/glob ulin mass ratioon 05-08-2022 Albumin/Globulin [Mass ratio] 0.8 {ratio} 0.9-2.4 [facility] Serum or plasma calcium ernie urement (mass/volume)on 05-08-2022 Calcium [Mass/Vol] 8.9 mg/dL 8.5-10.1 [facility] Serum or plasma cholesterol in HDL measurement (mass/volume)on 05-08-2022 Cholesterol in HDL [Mass/Vol] 67 mg/dL >40 [facility] Comment on above: The drugs N-Acetylcy steine and Metamizole may falsely depress this assay. Reference Range HDL <40 mg/dL Low HDL Cholesterol HDL >or= 60 mg/dL High HDL Cholesterol Serum or plasma cholesterol in VLDL measurement (mass/volume)on 05-08-2022 Cholesterol in VLDL [Mass/Vol] 23 mg/dL 5-40 [facility] Serum or plasma creatinine m easurement (mass/volume)on 05-08-2022 Creatinine [Mass/Vol] 0.94 mg/dL 0.55-1.02 [facility] Comment on above: The validity of the calculated GFR & GFRAA in patients over 70 years has not been determined. Clinical correlation is essential. Serum or plasma folate measu rement (mass/volume)on 05-08-2022 Folate [Mass/Vol] 5.60 ng/mL 3.1-55.4 [facility] Serum or plasma low density lipoprotein (LDL) cholesterol measurement (mass/volume)on 05-08-2022 Cholesterol in LDL [Mass/Vol] 152 mg/dL 0-130 [facility] Serum or plasma urea nitroge n measurement (mass/volume)on 05-08-2022 Urea nitrogen [Mass/Vol] 22 mg/dL 7-18 [facility] Thin prep Papanicolaou smear with manual screeningon 05-08-2022 Thin prep Papanicolaou smear with manual screening 18 U/L 15-37 [facility] Thin prep Papanicolaou smear with manual screening 9 5-15 [facility] Laboratory - Microbiology an d Antimicrobial susceptibilityon 03-11-2022 SARS-CoV-2 (COVID-19) RNA STAYC+probe Ql (Unsp spec) Not detected Not Detect [facility] Work Phone: Comment on above: Normal Reference Ran ge: Not DetectedMethod:(RT-PCR) real-time reverse transcriptase PCRLuminex TAIWO Instrument*The Food and Drug Administration (FDA) has issued an Emergency Use Authorization (EAU) for the Hyphen 8 SARS-CoV-2 Assay for the rapid detection of the virus that causes COVID-19. This test has been validated, but the FDAs independent review of this validation is pending.*Negative results do not preclude infection and should not be used as the sole basis for treatment or patient management. Optimum specimen types and timing for peak viral levels during infections caused by SARS-CoV-2 have not been determined. Collection of multiple specimens from the same patient may be necessary to detect the virus. The possibility of a false negative result should be considered if the patient has clinical presentation or has had recent exposure. Basic metabolic 2000 panelon 02-08-2022 Anion gap [Moles/Vol] 13 mmol/L 9 - 18 mmol/L [facility] Calcium [Mass/Vol] 9.7 mg/dL 8.5 - 10. 2 mg/dL [facility] Chloride [Moles/Vol] 106 mmol/L High 97 - 10 5 mmol/L [facility] CO2 [Moles/Vol] 19 mmol/L Low 22 - 30 mmol/L [facility] Creatinine [Mass/Vol] 0.99 mg/dL High 0.58 - 0.96 mg/dL [facility] Estimated Glomerular Filtration Rate 69 mL/min/1.73m >=60 mL/min/1.73m [facility] Glucose [Mass/Vol] 88 mg/dL 74 - 99 mg/dL [facility] Potassium [Moles/Vol] 4.2 mmol/L 3.7 - 5.1 mmol/L [facility] Sodium [Moles/Vol] 138 mmol/L 136 - 144 mmol/L [facility] Urea nitrogen [Mass/Vol] 26 mg/dL High 7 - 21 mg/dL [facility] Laboratory - Chemistry and C hemistry - challengeon 12-30-2021 HCG ( test) Ql (U) Negative [facility] Work Phone: Comment on above: Very dilute urine sp ecimens, as indicated by a low specificgravity, may not contain outbound telemarketing representative levels of hCG. If is still suspected, a first morning urinespecimen should be collected 48 hours later and tested. Absolute lymphocyte counton 11-02-2021 Lymphocytes Auto (Unsp spec) [#/Vol] 1.78 10*3/uL 0.83-4.51 [facility] Work Phone: [phone] Basophil percentageon 2021 Basophils/100 WBC (Bld) 0.8 % 0-1 [facility] Work Phone: Bilirubin [Mass/Vol] 0.30 mg/dL 0.20-1.00 [facility] Work Phone: Comment on above: For patients on eltr ombopag therapy, use of Dim[place] TBIL is not recommended. Chloride [Moles/Vol] 108 mmol/L 98-107 [facility] Work Phone: Cholesterol [Mass/Vol] 263 mg/dL <200 [facility] Work Phone: [phone] Comment on above: <200 mg/dL Desirable 200-240 mg/dL Borderline >240 mg/dL High Risk Eosinophils/100 WBC (Bld) 1.4 % 0-5 [facility] Work Phone: Glucose [Mass/Vol] 98 mg/dL 74-106 [facility] Work Phone: Neutrophils (Bld) [#/Vol] 8.4 10*3/uL 2.0-7.7 [facility] Work Phone: Neutrophils/100 WBC (Bld) 75.1 % 47-70 [facility] Work Phone: Potassium [Moles/Vol] 3.6 mmol/L 3.5-5.1 [facility] Work Phone: Protein [Mass/Vol] 7.7 g/dL 6.4-8.2 [facility] Work Phone: Sodium [Moles/Vol] 138 mmol/L 136-145 [facility] Work Phone: Triglyceride [Mass/Vol] 135 mg/dL [facility] Work Phone: Comment on above: The drugs N-Acetylcy steine and Metamizole may falsely depress this assay.Serum Triglycerides Reference Interval Normal <150 mg/dL Borderline high 150 - 199 mg/dL High 200 - 499 mg/dL Very High > or = 500 mg/dL WBC (Bld) [#/Vol] 11.1 10*3/uL 4.4-11.0 [facility] Work Phone: Blood erythrocytes count (nu mber/volume)on 11-02-2021 RBC (Bld) [#/Vol] 4.78 10*6/uL 4.2-5.4 [facility] Work Phone: Blood hemoglobin measurement (mass/volume)on 11-02-2021 Hemoglobin (Bld) [Mass/Vol] 15.5 g/dL 12.0-15.0 [facility] Work Phone: Blood lymphocytes/100 leukoc yteson 11-02-2021 Lymphocytes/100 WBC (Bld) 16.0 % 19-41 [facility] Work Phone: Blood monocytes/100 leukocyt eson 11-02-2021 Monocytes/100 WBC (Bld) 5.9 % 0-10 [facility] Work Phone: Blood platelet mean volumeon 11-02-2021 Platelet mean volume (Bld) [Entitic vol] 10.1 fL 6.2-12.0 [facility] Work Phone: Determination of erythrocyte mean corpuscular volume (MCV)on 11-02-2021 MCV (RBC) [Entitic vol] 96.7 fL 81-99 [facility] Work Phone: Hematocrit Auto (Bld) [Volum e fraction]on 11-02-2021 Hematocrit (Bld) [Volume fraction] 46.2 % 37-47 [facility] Work Phone: Laboratory - Chemistry and C hemistry - challengeon 11-02-2021 ALP [Catalytic activity/Vol] 85 U/L 45-117 [facility] Work Phone: ALT [Catalytic activity/Vol] 29 U/L 13-56 [facility] Work Phone: [phone] CO2 [Moles/Vol] 22.0 mmol/L 21.0-32.0 [facility] Work Phone: Globulin (S) [Mass/Vol] 4.2 g/dL 2.2-4.2 [facility] Work Phone: Urea nitrogen/Creatinine [Mass ratio] 22.1 mg/mg 10-20 [facility] Work Phone: Laboratory - Hematology and Cell countson 11-02-2021 Erythrocyte distribution width (RBC) [Entitic vol] 49.6 fL 35.1-43.9 [facility] Work Phone: Erythrocyte distribution width (RBC) [Ratio] 13.9 % 11.6-14.6 [facility] Work Phone: Immature granulocytes/100 WBC (Bld) 0.800 % 0.0-0.9 [facility] Work Phone: Comment on above: IG% - Immature Granu locytes (promyelocytes, myelocytes and metamyelocytes) > 1% indicates that a LEFT SHIFT is Present. MCH (RBC) [Entitic mass] 32.4 pg 27.0-32.0 [facility] Work Phone: Nucleated RBC/100 WBC (Bld) [Ratio] 0 % 0-5 [facility] Work Phone: MCHC Auto (RBC) [Mass/Vol]on 11-02-2021 MCHC (RBC) [Mass/Vol] 33.5 g/dL 32-36 [facility] Work Phone: No Panel Informationon 11-02 Adrenocorticotropic Hormone 11.3 pg/mL [facility] Work Phone: Comment on above: ACTH reference inter jill for samples collected between 7 and10 AM.Performed at: [employer] [id number] Director: Bonilla Haider PhD, Phone: [phone] Estimated GFR (MDRD) Amer 80 mL/min >60 [facility] Work Phone: Comment on above: GFR Calc Estimated GFR (MDRD) Non-Af Amer 66 mL/min >60 [facility] Work Phone: Comment on above: Non- GFR Calc Thyroid Stimulating Hormone (TSH) 0.46 uIU/mL 0.358-3.74 [facility] Work Phone: Platelets bldon 11-02-2021 Platelets (Bld) [#/Vol] 282 10*3/uL 150-450 [facility] Work Phone: Serum or plasma albumin ernie urement (mass/volume)on 11-02-2021 Albumin [Mass/Vol] 3.5 g/dL 3.2-5.0 [facility] Work Phone: Serum or plasma albumin/glob ulin mass ratioon 11-02-2021 Albumin/Globulin [Mass ratio] 0.8 {ratio} 0.9-2.4 [facility] Work Phone: Serum or plasma calcium ernie urement (mass/volume)on 11-02-2021 Calcium [Mass/Vol] 9.5 mg/dL 8.5-10.1 [facility] Work Phone: Serum or plasma cholesterol in HDL measurement (mass/volume)on 11-02-2021 Cholesterol in HDL [Mass/Vol] 68 mg/dL [facility] Work Phone: Comment on above: The drugs N-Acetylcy steine and Metamizole may falsely depress this assay. Reference Range HDL <40 mg/dL Low HDL Cholesterol HDL >or= 60 mg/dL High HDL Cholesterol Serum or plasma cholesterol in VLDL measurement (mass/volume)on 11-02-2021 Cholesterol in VLDL [Mass/Vol] 27 mg/dL 5-40 [facility] Work Phone: Serum or plasma cortisol sandy surement (mass/volume)on 11-02-2021 Cortisol [Mass/Vol] 11.00 ug/dL 3.44-22.45 [facility] Work Phone: Comment on above: Adult (AM) 5.27 - 22 .45 ug/dL Adult (PM) 3.44 - 16.76 ug/dLPlease note revised CORTISOL reference range effective 2019. Serum or plasma creatinine m easurement (mass/volume)on 11-02-2021 Creatinine [Mass/Vol] 0.95 mg/dL 0.55-1.02 [facility] Work Phone: Comment on above: The validity of the calculated GFR & GFRAA in patients over 70 years has not been determined. Clinical correlation is essential. Serum or plasma low density lipoprotein (LDL) cholesterol measurement (mass/volume)on 11-02-2021 Cholesterol in LDL [Mass/Vol] 168 mg/dL 0-130 [facility] Work Phone: Serum or plasma urea nitroge n measurement (mass/volume)on 11-02-2021 Urea nitrogen [Mass/Vol] 21 mg/dL 7-18 [facility] Work Phone: Thin prep Papanicolaou smear with manual screeningon 11-02-2021 Thin prep Papanicolaou smear with manual screening 14 U/L 15-37 [facility] Work Phone: Thin prep Papanicolaou smear with manual screening 8 5-15 [facility] Work Phone: C-Reactive Proteinon 022 C-Reactive Protein 0.6 mg/dL Normal <0.9 [facility] Reference Lab Comment on above: Performed By: #### C RP, WSR, CBCDIF #### [facility] Routine Lab [address], [place] [address] Sed Rate Westergrenon 2021 Sed Rate Westergren 21 mm/hr High 0-20 [facility] Reference Lab Comment on above: Performed By: #### C RP, WSR, CBCDIF #### [facility] Routine Lab [address] [phone] CBC and Differentialon 09-20 Abs Baso 0.08 k/uL Normal <0.11 [facility] Reference Lab Comment on above: Performed By: #### C RP, WSR, CBCDIF #### [facility] Routine Lab [address] [place] [phone] Abs [place] 0.85 k/uL Normal <0.87 [facility] Reference Lab Comment on above: Performed By: #### C RP, WSR, CBCDIF #### [facility] Routine Lab [address] [place] [phone] Abs Neut 6.79 k/uL Normal 1.45-7.50 [facility] Reference Lab Comment on above: Performed By: #### C RP, WSR, CBCDIF #### [facility] Routine Lab [address] [place] [phone] Absolute nRBC <0.01 Normal <0.01 [facility] Reference Lab Comment on above: Performed By: #### C RP, WSR, CBCDIF #### [facility] Routine Lab [address] [place] [phone] Basophils/100 WBC (Bld) 0.8 % Normal [facility] Reference Lab Comment on above: Performed By: #### C RP, WSR, CBCDIF #### [facility] Routine Lab [address] [place] [phone] DTYPE ADIFF Normal [facility] Reference Lab Comment on above: Performed By: #### C RP, WSR, CBCDIF #### [facility] Routine Lab [address] [place] [phone] Eosinophils (Bld) [#/Vol] 0.17 10*3/uL Normal <0.46 [facility] Reference Lab Comment on above: Performed By: #### C RP, WSR, CBCDIF #### [facility] Routine Lab [address] [address] Eosinophils/100 WBC (Bld) 1.7 % Normal [facility] Reference Lab Comment on above: Performed By: #### C RP, WSR, CBCDIF #### [facility] Routine Lab [address] [address] Erythrocyte distribution width (RBC) [Ratio] 14.4 % Normal 11.5-15.0 [facility] Reference Lab Comment on above: Performed By: #### C RP, WSR, CBCDIF #### [facility] Routine Lab [address] [address] Hematocrit (Bld) [Volume fraction] 44.2 % Normal 36.0-46.0 [facility] Reference Lab Comment on above: Performed By: #### C RP, WSR, CBCDIF #### [facility] Routine Lab [address] [address] Hemoglobin (Bld) [Mass/Vol] 14.1 g/dL Normal 11.5-15.5 [facility] Reference Lab Comment on above: Performed By: #### C RP, WSR, CBCDIF #### [facility] Routine Lab [address] [address] Lymphocytes (Bld) [#/Vol] 1.92 10*3/uL Normal 1.00-4.00 [facility] Reference Lab Comment on above: Performed By: #### C RP, WSR, CBCDIF #### [facility] Routine Lab [address] [address] Lymphocytes/100 WBC (Bld) 19.6 % Normal [facility] Reference Lab Comment on above: Performed By: #### C RP, WSR, CBCDIF #### [facility] Routine Lab [address] [address] MCH 31.8 pG Normal 26.0-34.0 [facility] Reference Lab Comment on above: Performed By: #### C RP, WSR, CBCDIF #### [facility] Routine Lab [address] [address] MCHC (RBC) [Mass/Vol] 31.9 g/dL Normal 30.5-36.0 [facility] Reference Lab Comment on above: Performed By: #### C RP, WSR, CBCDIF #### [facility] Routine Lab [address] [address] MCV (RBC) [Entitic vol] 99.8 fL Normal 80.0-100.0 [facility] Reference Lab Comment on above: Performed By: #### C RP, WSR, CBCDIF #### [facility] Routine Lab [address] [address] Monocytes/100 WBC (Bld) 8.7 % Normal [facility] Reference Lab Comment on above: Performed By: #### C RP, WSR, CBCDIF #### [facility] Routine Lab [address] [address] Neutrophils/100 WBC (Bld) 69.2 % Normal [facility] Reference Lab Comment on above: Performed By: #### C RP, WSR, CBCDIF #### [facility] Routine Lab [address] [address] NRBCs 0.0 /100 WBC Normal 0 [facility] Reference Lab Comment on above: Performed By: #### C RP, WSR, CBCDIF #### [facility] Routine Lab [address] [address] Platelet mean volume (Bld) [Entitic vol] 10.9 fL Normal 9.0-12.7 [facility] Reference Lab Comment on above: Performed By: #### C RP, WSR, CBCDIF #### [facility] Routine Lab [address], [place] [address] Platelets (Bld) [#/Vol] 379 10*3/uL Normal 150-400 [facility] Reference Lab Comment on above: Performed By: #### C RP, WSR, CBCDIF #### [facility] Routine Lab [address], [place] [address] RBC (Bld) [#/Vol] 4.43 10*6/uL Normal 3.90-5.20 [facility] Reference Lab Comment on above: Performed By: #### C RP, WSR, CBCDIF #### [facility] Routine Lab [address] [address] WBC (Bld) [#/Vol] 9.81 10*3/uL Normal 3.70-11.00 [facility] Reference Lab Comment on above: Performed By: #### C RP, WSR, CBCDIF #### [facility] Routine Lab [address], [place] [address] Absolute lymphocyte counton 09-04-2021 Lymphocytes Auto (Unsp spec) [#/Vol] 1.97 10*3/uL 0.83-4.51 [facility] Work Phone: Basophil percentageon 2021 Basophils/100 WBC (Bld) 1.0 % 0-1 [facility] Work Phone: Chloride [Moles/Vol] 108 mmol/L 98-107 [facility] Work Phone: Eosinophils/100 WBC (Bld) 3.0 % 0-5 [facility] Work Phone: Glucose [Mass/Vol] 90 mg/dL 74-106 [facility] Work Phone: Neutrophils (Bld) [#/Vol] 5.1 10*3/uL 2.0-7.7 [facility] Work Phone: Neutrophils/100 WBC (Bld) 62.1 % 47-70 [facility] Work Phone: Potassium [Moles/Vol] 4.2 mmol/L 3.5-5.1 [facility] Work Phone: Comment on above: Moderate Hemolysis, Result may be falsely increased. Sodium [Moles/Vol] 138 mmol/L 136-145 [facility] Work Phone: WBC (Bld) [#/Vol] 8.1 10*3/uL 4.4-11.0 [facility] Work Phone: Blood erythrocytes count (nu mber/volume)on 09-04-2021 RBC (Bld) [#/Vol] 4.13 10*6/uL 4.2-5.4 [facility] Work Phone: Blood hemoglobin measurement (mass/volume)on 09-04-2021 Hemoglobin (Bld) [Mass/Vol] 13.3 g/dL 12.0-15.0 [facility] Work Phone: Blood lymphocytes/100 leukoc yteson 09-04-2021 Lymphocytes/100 WBC (Bld) 24.3 % 19-41 [facility] Work Phone: Blood monocytes/100 leukocyt eson 09-04-2021 Monocytes/100 WBC (Bld) 9.0 % 0-10 [facility] Work Phone: Blood platelet mean volumeon 09-04-2021 Platelet mean volume (Bld) [Entitic vol] 9.9 fL 6.2-12.0 [facility] Work Phone: Determination of erythrocyte mean corpuscular volume (MCV)on 09-04-2021 MCV (RBC) [Entitic vol] 96.6 fL 81-99 [facility] Work Phone: Hematocrit Auto (Bld) [Volum e fraction]on 09-04-2021 Hematocrit (Bld) [Volume fraction] 39.9 % 37-47 [facility] Work Phone: Laboratory - Chemistry and C hemistry - challengeon 09-04-2021 CO2 [Moles/Vol] 23.0 mmol/L 21.0-32.0 [facility] Work Phone: Natriuretic peptide B (Bld) [Mass/Vol] 14.3 pg/mL 0-100 [facility] Work Phone: Urea nitrogen/Creatinine [Mass ratio] 16.3 mg/mg 10-20 [facility] Work Phone: Laboratory - Hematology and Cell countson 09-04-2021 Erythrocyte distribution width (RBC) [Entitic vol] 53.6 fL 35.1-43.9 [facility] Work Phone: Erythrocyte distribution width (RBC) [Ratio] 15.0 % 11.6-14.6 [facility] Work Phone: Immature granulocytes/100 WBC (Bld) 0.600 % 0.0-0.9 [facility] Work Phone: Comment on above: IG% - Immature Granu locytes (promyelocytes, myelocytes and metamyelocytes) > 1% indicates that a LEFT SHIFT is Present. MCH (RBC) [Entitic mass] 32.2 pg 27.0-32.0 [facility] Work Phone: Nucleated RBC/100 WBC (Bld) [Ratio] 0 % 0-5 [facility] Work Phone: Laboratory - Microbiology an d Antimicrobial susceptibilityon 09-04-2021 SARS-CoV-2 (COVID-19) RNA STACY+probe Ql (Unsp spec) Not detected Not Detect [facility] Work Phone: Comment on above: Normal Reference Ran ge: Not DetectedMethod:(RT-PCR) real-time reverse transcriptase PCRLuminex TAIWO Instrument*The Food and Drug Administration (FDA) has issued an Emergency Use Authorization (EAU) for the TAIWO SARS-CoV-2 Assay for the rapid detection of the virus that causes COVID-19. This test has been validated, but the FDAs independent review of this validation is pending.*Negative results do not preclude infection and should not be used as the sole basis for treatment or patient management. Optimum specimen types and timing for peak viral levels during infections caused by SARS-CoV-2 have not been determined. Collection of multiple specimens from the same patient may be necessary to detect the virus. The possibility of a false negative result should be considered if the patient has clinical presentation or has had recent exposure. MCHC Auto (RBC) [Mass/Vol]on 09-04-2021 MCHC (RBC) [Mass/Vol] 33.3 g/dL 32-36 [facility] Work Phone: No Panel Informationon 09-04 D-Dimer Quantitative (PE/DVT) 0.42 FEU/ug/m 0.27-0.49 [facility] Work Phone: Comment on above: NORMAL D-Dimer level (<0.50) indicates no DVT or PE. Estimated Creatinine Clearance Calc 61.80 ml/min [facility] Work Phone: Estimated GFR (MDRD) Amer 77 mL/min >60 [facility] Work Phone: Comment on above: GFR Calc Estimated GFR (MDRD) Non-Af Amer 64 mL/min >60 [facility] Work Phone: Comment on above: Non- GFR Calc Troponin I High Sensitivity 6 pg/mL 3.0-54.0 [facility] Work Phone: Comment on above: Please Note: [place] t Units and Gender Specific Reference Ranges. For more information see Policy Stat Procedure [place] High Sensitivity Troponin (TNIH) and attachments. Platelets bldon 09-04-2021 Platelets (Bld) [#/Vol] 238 10*3/uL 150-450 [facility] Work Phone: Serum or plasma calcium ernie urement (mass/volume)on 09-04-2021 Calcium [Mass/Vol] 9.0 mg/dL 8.5-10.1 [facility] Work Phone: Serum or plasma creatinine m easurement (mass/volume)on 09-04-2021 Creatinine [Mass/Vol] 0.98 mg/dL 0.55-1.02 [facility] Work Phone: Comment on above: The validity of the calculated GFR & GFRAA in patients over 70 years has not been determined. Clinical correlation is essential. Serum or plasma urea nitroge n measurement (mass/volume)on 09-04-2021 Urea nitrogen [Mass/Vol] 16 mg/dL 7-18 [facility] Work Phone: Thin prep Papanicolaou smear with manual screeningon 09-04-2021 Thin prep Papanicolaou smear with manual screening 7 5-15 [facility] Work Phone: DIGITAL MAMM SCREENING W/ TO Velazquez 03-21-2021 DIGITAL MAMM SCREENING W/ JACQUES Patient Name: BRUNO PATTERSON STUDY: Digital mammography screening with jacques; 03/21/2021 12:19 pm ACCESSION NUMBER(S): [id number] ORDERING CLINICIAN: FELI ANTHONY INDICATION: Screening. COMPARISON: Comparison is made to prior digital mammograms dated 03/19/2020 FINDINGS: CC and MLO 2D digital mammograms and digital breast tomosynthesis images were obtained of the bilateral breasts. 3-D volume images were reconstructed in 4 views at an independent workstation as 1 mm slices through the breasts in both the CC and MLO projections. The breast tissue is almost entirely fatty. No discrete mass or focal asymmetry is identified. No suspicious microcalcifications or foci of architectural distortion are seen. There has been no significant change. This study was interpreted with CAD. IMPRESSION: No mammographic evidence of malignancy. BI-RADS CATEGORY: Category: 1 - Negative. Recommendation: 1 Year Screening. Electronically signed by: ARAMIS BELLA MD [facility] Mamm - Screening Mammogram w / Tomosynthesison 03-21-2021 MG Breast Screening Normal [facility] Work Phone: LMPon 02-28-2021 Last menstrual period start date spotting [facility] Work Phone: Mamm - Screening Mammogram w / Tomosynthesison 03-19-2020 MG Breast screening Interpreted by: ARAMIS BELLA03/22/20 09:37MRN: [id number] Name: BRUNO PATTERSON STUDY:Digital mammography screening with jacques; 03/19/2020 11:23 am ORDERING CLINICIAN:FELI ANTHONY INDICATION:Screening. COMPARISON:Comparison is made to prior digital mammograms dated09/10/2018 and09/03/2017 FINDINGS:CC and MLO 2D digital mammograms and digital breast tomosynthesisimages were obtained of the bilateral breasts. 3-D volume imageswere reconstructed in 4 views at an independent workstation as 1 mmslices through the breasts in both the CC and MLO projections. The breast tissue is almost entirely fatty. No discrete mass orfocal asymmetry is identified. No suspicious microcalcifications orfoci of architectural distortion are seen. There has been nosignificant change. This study was interpreted with CAD. IMPRESSION:No mammographic evidence of malignancy. BI-RADS CATEGORY: Category: 1 - Negative.Recommendation: 1 Year Screening.Electronically signed by: ARAMIS BELLA 03/22/20 09:37 Normal [facility] Work Phone: Comment on above: ORDER REVISED TO A D IGITAL MAMM SCREENING W/ JACQUES BY RADIOLOGIST; Original Order Number: [id number] GC + Chlamydia By Amplified Detectionon 02-26-2020 C. trachomatis rRNA STACY+probe Ql (Unsp spec) Negative Negative [facility] Work Phone: N. gonorrhoeae rRNA STACY+probe Ql (Unsp spec) Negative Negative [facility] Work Phone: Comment on above: SOURCE: Thin Prep-En docervical Imm/Pathon 02-24-2020 Cytology report Cyto stain.thin prep Doc (Cvx/Vag) Date of Procedure: 02/24/2020 [facility], CytologyDate Reported: 03/17/2020Date Received: 02/25/2020Submitting Physician: FELI ANTHONY M.D. FINAL CYTOLOGICAL INTERPRETATIONA. THINPREP PAP CERVICAL: Specimen Adequacy: SATISFACTORY FOR EVALUATION. Quality Indicator: Absence of endocervical/transformati on zone component. Quality Indicator: Partially obscured by cytolysis. General Categorization: NEGATIVE FOR INTRAEPITHELIAL LESION OR MALIGNANCY. HIGH RISK HPV TEST RESULT: HPV GENOTYPE 16 NEGATIVE HPV GENOTYPE 18 NEGATIVE HPV GENOTYPE OTHER NEGATIVE Reference Range: Negative Testing for high-risk (HR) type of human papilloma virus (HPV) is performed bythe Clemencia yuri HPV Test. The yuri HPV Test is a qualitative polymerase chainreaction that amplifies DNA of HPV16, HPV18 and 12 other high-risk HPV types(31, 33, 35, 39, 45, 51, 52, 56, 58, 59, 66, and 68) associated with cervicalcancer and its precursor lesions. A positive result indicates the presence ofHPV DNA due to one or more of the 14 genotypes: 16, 18, 31, 33, 35, 39, 45, 51,52, 56, 58, 59, 66, and 68. Negative results indicate HPV DNA concentrationsare undetectable or below the pre-set threshold for detection. False negativeresults may be associated with unoptimized sampling. A negative HR HPV resultdoes not exclude the possibility of future cytologic HSIL or underlying CIN2-3or cancer.This test is approved for cervical specimens by the [place] Food and DrugAdministration. Results of this test should be interpreted in conjunction withthe patient's Pap test results. Please refer to ASCCP current guidelines forthe use of HPV DNA testing, result interpretation, and patient management. The performance of this test was verified by the [facility]. The lab iscertified under the Clinical Laboratory Amendments of 1988 (CLIA 88) asqualified to perform high complexity clinical laboratory testing.This specimen has been analyzed by the [employer] Imaging System ([employer]an automated imaging and review system, which assists the laboratory inevaluating cells on ThinPrep Pap tests. Following automated imaging, selectedfields from every slide were reviewed by a claims analyst and/or pathologist.Electronicall y Signed Out By [facility], Cytology//TFP By the signature on this report, the individual or group listed as making theFinal Interpretation/Diagnosis certifies that they have reviewed this case.Educational Note:Cervical cytology is a screening procedure primarily for squamous cancers andprecursors and has associated false-negative and false-positive results asevidenced by published data. Your patient's test should be interpreted in thiscontext, together with patient's history and clinical findings. Regularsampling and follow-up of unexplained clinical signs and symptoms arerecommended to minimize false negative results. Clinical HistoryDate of Last Menstrual Period: 02/15/2020Other Clinical Conditions:HPV Test for All Interpretations - Include HPV Genotype GC / CT Testing OrderedAdditional Testing: GC + Chlamydia TestingClinical Diagnosis History: Encounter for cervical Pap smear with pelvic exam -(Z01.419); Screening examination for STD (sexually transmitted disease) -(Z11.3) Source of SpecimenA: THINPREP PAP CERVICAL -[facility] Work Phone: Vital Signs Date Time Vital Sign Value Performing Clinician Facility 05-04-2025 11:09-0400 Body height 165.[address] Wandy Valdovinos MD Work Phone: [facility] 05-04-2025 11:09-0400 Body mass index (BMI) [Ratio] 37 kg/m2 Dr. Wandy Valdovinos MD Work Phone: [facility] 05-04-2025 11:09-0400 Body temperature 98.4 [degF] Dr. Wandy Valdovinos MD Work Phone: [facility] 05-04-2025 11:09-0400 Body weight 101.[address] Wandy Valdovinos MD Work Phone: [facility] 05-04-2025 11:09-0400 Diastolic blood pressure 90 mm[Hg] Dr. Wandy Valdovinos MD Work Phone: [facility] 05-04-2025 11:09-0400 Heart rate 88 /min Dr. Wandy Valdovinos MD Work Phone: [facility] 05-04-2025 11:09-0400 Respiratory rate 16 /min Dr. Wandy Valdovinos MD Work Phone: [facility] 05-04-2025 11:09-0400 SaO2% (BldA) [Mass fraction] 97 % Dr. Wandy Valdovinos MD Work Phone: [facility] 05-04-2025 11:09-0400 Systolic blood pressure 140 mm[Hg] Dr. Wandy Valdovinos MD Work Phone: [facility] 12-01-2024 10:49-0400 Body height 165.1 cm Cheyenne Keller PA Work Phone: [facility] 12-01-2024 10:49-0400 Body mass index (BMI) [Ratio] 36.1 kg/m2 Cheyenne Keller PA Work Phone: [facility] 12-01-2024 10:49-0400 Body weight 98.42 kg Cheyenne Keller PA Work Phone: [facility] 12-01-2024 10:49-0400 Diastolic blood pressure 82 mm[Hg] Cheyenne Keller PA Work Phone: [facility] 12-01-2024 10:49-0400 Systolic blood pressure 116 mm[Hg] Cheyenne Keller PA Work Phone: [facility] 10-29-2024 13:07-0400 Body height 165.1 cm Cheyenne Keller PA Work Phone: [facility] 10-29-2024 13:07-0400 Body mass index (BMI) [Ratio] 36.2 kg/m2 Cheyenne Keller PA Work Phone: [facility] 10-29-2024 13:07-0400 Body temperature 98 [degF] Cheyenne Keller PA Work Phone: [facility] 10-29-2024 13:07-0400 Body weight 98.88 kg Cheyenne Keller PA Work Phone: [facility] 10-29-2024 13:07-0400 Diastolic blood pressure 82 mm[Hg] Cheyenne Keller PA Work Phone: [facility] 10-29-2024 13:07-0400 Heart rate 102 /min Cheyenne Keller PA Work Phone: [facility] 10-29-2024 13:07-0400 Respiratory rate 18 /min Cheyenne Keller PA Work Phone: [facility] 10-29-2024 13:07-0400 SaO2% (BldA) [Mass fraction] 96 % Cheyenne Keller PA Work Phone: [facility] 10-29-2024 13:07-0400 Systolic blood pressure 142 mm[Hg] Cheyenne Keller PA Work Phone: [facility] 09-26-2024 16:47-0500 Body temperature 96.1 [degF] Cheyenne Keller PA Work Phone: [facility] 09-26-2024 16:47-0500 Body weight 98.99 kg Cheyenne Keller PA Work Phone: [facility] 09-26-2024 16:47-0500 Diastolic blood pressure 68 mm[Hg] Cheyenne Keller PA Work Phone: [facility] 09-26-2024 16:47-0500 Heart rate 79 /min Cheyenne Keller PA Work Phone: [facility] 09-26-2024 16:47-0500 Respiratory rate 16 /min Cheyenne Keller PA Work Phone: [facility] 09-26-2024 16:47-0500 SaO2% (BldA) [Mass fraction] 98 % Cheyenne Keller PA Work Phone: [facility] 09-26-2024 16:47-0500 Systolic blood pressure 132 mm[Hg] Cheyenne Keller PA Work Phone: [facility] 08-20-2024 10:29-0500 Body temperature 98.6 [degF] Cheyenne Keller PA Work Phone: [facility] 08-20-2024 10:29-0500 Body weight 95.7 kg Cheyenne Keller PA Work Phone: [facility] 08-20-2024 10:29-0500 Diastolic blood pressure 94 mm[Hg] Cheyenne Keller PA Work Phone: [facility] 08-20-2024 10:29-0500 Heart rate 88 /min Cheyenne Keller PA Work Phone: [facility] 08-20-2024 10:29-0500 Respiratory rate 16 /min Cheyenne Keller PA Work Phone: [facility] 08-20-2024 10:29-0500 SaO2% (BldA) [Mass fraction] 96 % Cheyenne Keller PA Work Phone: [facility] 08-20-2024 10:29-0500 Systolic blood pressure 139 mm[Hg] Cheyenne Keller PA Work Phone: [facility] 12-21-2023 11:22-0400 Body temperature 97.6 [degF] Dr. Ed Lipscomb Work Phone: [facility] 12-21-2023 11:22-0400 Diastolic blood pressure 79 mm[Hg] Dr. Ed Lipscomb Work Phone: [facility] 12-21-2023 11:22-0400 Heart rate 84 /min Dr. Ed Lipscomb Work Phone: [facility] 12-21-2023 11:22-0400 Respiratory rate 17 /min Dr. Ed Lipscomb Work Phone: [facility] 12-21-2023 11:22-0400 SaO2% (BldA) [Mass fraction] 97 % Dr. Ed Lipscomb Work Phone: [facility] 12-21-2023 11:22-0400 Systolic blood pressure 114 mm[Hg] Dr. Ed Lipscomb Work Phone: [facility] 12-18-2023 06:00-0400 Body mass index (BMI) [Ratio] 36.8 kg/m2 Dr. Ed Lipscomb Work Phone: [facility] 12-18-2023 06:00-0400 Body weight 100.[address] Ed Lipscomb Work Phone: [facility] 12-12-2023 13:36-0400 Body height 165.[address] Ed Lipscomb Work Phone: [facility] 11-19-2023 11:31-0400 Diastolic blood pressure 100 mm[Hg] Pacc 1 Work Phone: [facility] 11-19-2023 11:31-0400 Systolic blood pressure 132 mm[Hg] Pacc 1 Work Phone: [facility] 11-19-2023 10:51-0400 Body height 165.1 cm Pacc 1 Work Phone: [facility] 11-19-2023 10:51-0400 Body temperature 98.4 [degF] Pacc 1 Work Phone: [facility] 11-19-2023 10:51-0400 Body weight 102.06 kg Pacc 1 Work Phone: [facility] 11-19-2023 10:51-0400 Heart rate 75 /min Pacc 1 Work Phone: [facility] 11-19-2023 10:51-0400 Respiratory rate 14 /min Pacc 1 Work Phone: [facility] 11-19-2023 10:51-0400 SaO2% (BldA) [Mass fraction] 98 % Pacc 1 Work Phone: [facility] 11-14-2023 15:33-0400 Body temperature 97.4 [degF] [place] [facility] 11-14-2023 15:33-0400 Diastolic blood pressure 94 mm[Hg] Out [facility] 11-14-2023 15:33-0400 Heart rate 71 /min Out [place] [facility] 11-14-2023 15:33-0400 Respiratory rate 16 /min [place] [facility] 11-14-2023 15:33-0400 SaO2% (BldA) [Mass fraction] 97 % Out [facility] 11-14-2023 15:33-0400 Systolic blood pressure 156 mm[Hg] Out [facility] 11-14-2023 12:11-0400 Body height 165 cm Out [facility] 11-14-2023 12:11-0400 Body mass index (BMI) [Ratio] 38.3 kg/m2 Out [facility] 11-14-2023 12:11-0400 Body weight 104.5 kg Out [facility] 09-26-2023 19:00-0500 Body temperature 97.7 [degF] Out [facility] 09-26-2023 19:00-0500 Diastolic blood pressure 84 mm[Hg] Out [facility] 09-26-2023 19:00-0500 Heart rate 97 /min Out [facility] 09-26-2023 19:00-0500 Respiratory rate 14 /min Out [facility] 09-26-2023 19:00-0500 SaO2% (BldA) [Mass fraction] 96 % Out [facility] 09-26-2023 19:00-0500 Systolic blood pressure 126 mm[Hg] Out [facility] 09-25-2023 12:11-0500 Body temperature 97.9 [degF] Out [facility] 09-25-2023 12:11-0500 Diastolic blood pressure 98 mm[Hg] Out [facility] 09-25-2023 12:11-0500 Heart rate 89 /min Out [facility] 09-25-2023 12:11-0500 Respiratory rate 20 /min Out [facility] 09-25-2023 12:11-0500 SaO2% (BldA) [Mass fraction] 99 % Out [facility] 09-25-2023 12:11-0500 Systolic blood pressure 146 mm[Hg] Out [facility] 09-25-2023 06:44-0500 Body height 165.1 cm Out [facility] 09-25-2023 06:44-0500 Body mass index (BMI) [Ratio] 37.7 kg/m2 Out [facility] 09-25-2023 06:44-0500 Body weight 102.8 kg Out [facility] 09-25-2023 06:10-0500 Diastolic blood pressure 122 mm[Hg] Out [facility] 09-25-2023 06:10-0500 Heart rate 47 /min Out [facility] 09-25-2023 06:10-0500 Respiratory rate 14 /min Out [facility] 09-25-2023 06:10-0500 SaO2% (BldA) [Mass fraction] 98 % Out [facility] 09-25-2023 06:10-0500 Systolic blood pressure 144 mm[Hg] Out [facility] 09-24-2023 13:25-0500 Body temperature 97.1 [degF] Out [facility] 09-19-2023 13:38-0500 Body weight 100.92 kg Out [facility] 09-18-2023 16:37-0500 Body mass index (BMI) [Ratio] 37 kg/m2 Out [facility] 09-16-2023 07:28-0500 Diastolic blood pressure 87 mm[Hg] Out [facility] 09-16-2023 07:28-0500 Heart rate 78 /min Out [facility] 09-16-2023 07:28-0500 Respiratory rate 16 /min Out [facility] 09-16-2023 07:28-0500 Systolic blood pressure 139 mm[Hg] Out [facility] 09-16-2023 05:17-0500 SaO2% (BldA) [Mass fraction] 98 % Out [facility] 09-16-2023 03:17-0500 Body height 165.1 cm Out [facility] 09-16-2023 03:17-0500 Body mass index (BMI) [Ratio] 37.6 kg/m2 Out [facility] 09-16-2023 03:17-0500 Body temperature 97 [degF] Out [facility] 09-16-2023 03:17-0500 Body weight 102.7 kg Out [facility] 09-15-2023 20:30-0500 Heart rate 88 /min Out [facility] 09-15-2023 20:30-0500 Respiratory rate 18 /min Out [facility] 09-15-2023 20:30-0500 SaO2% (BldA) [Mass fraction] 99 % Out [facility] 09-15-2023 09:35-0500 Body temperature 97.6 [degF] Out [facility] 09-15-2023 09:35-0500 Diastolic blood pressure 85 mm[Hg] Out [facility] 09-15-2023 09:35-0500 Systolic blood pressure 126 mm[Hg] Out [facility] 09-13-2023 13:34-0500 Body weight 102.28 kg Out [facility] 09-12-2023 18:38-0500 Body mass index (BMI) [Ratio] 37.5 kg/m2 Out [facility] 09-12-2023 13:52-0500 Body temperature 97.5 [degF] Out [facility] 09-12-2023 13:52-0500 Diastolic blood pressure 80 mm[Hg] Out [facility] 09-12-2023 13:52-0500 Heart rate 65 /min Out [facility] 09-12-2023 13:52-0500 Respiratory rate 14 /min Out [facility] 09-12-2023 13:52-0500 SaO2% (BldA) [Mass fraction] 98 % Out [facility] 09-12-2023 13:52-0500 Systolic blood pressure 137 mm[Hg] Out [facility] 09-10-2023 15:52-0500 Body weight 99 kg Out [facility] 09-03-2023 22:16-0500 Inhaled oxygen flow rate 2 L/min Out [facility] 09-03-2023 17:50-0500 Body mass index (BMI) [Ratio] 36.3 kg/m2 Out [facility] 08-30-2023 10:11-0500 Body temperature 98.6 [degF] [facility] 08-30-2023 10:11-0500 Body weight 97.52 kg [facility] 08-30-2023 10:11-0500 Diastolic blood pressure 82 mm[Hg] [facility] 08-30-2023 10:11-0500 Heart rate 92 /min Out [facility] 08-30-2023 10:11-0500 Respiratory rate 18 /min Out [facility] 08-30-2023 10:11-0500 SaO2% (BldA) [Mass fraction] 97 % [facility] 08-30-2023 10:11-0500 Systolic blood pressure 132 mm[Hg] [facility] 07-25-2023 10:05-0500 Body height 165.1 cm [facility] 07-25-2023 10:05-0500 Body mass index (BMI) [Ratio] 36.8 kg/m2 Out [facility] 07-25-2023 10:05-0500 Body weight 100.3 kg Out [facility] 06-26-2023 10:06-0500 Body mass index (BMI) [Ratio] 37.5 kg/m2 [facility] 06-26-2023 10:06-0500 Body weight 102.51 kg Out [facility] 06-18-2023 11:05-0500 Body mass index (BMI) [Ratio] 37.6 kg/m2 Out [facility] 06-18-2023 11:05-0500 Body weight 102.62 kg Out [facility] 05-14-2023 16:10-0400 Body mass index (BMI) [Ratio] 36.6 kg/m2 [facility] 05-14-2023 16:10-0400 Body weight 99.79 kg [facility] 05-14-2023 16:10-0400 Diastolic blood pressure 97 mm[Hg] [facility] 05-14-2023 16:10-0400 Heart rate 110 /min [place] [facility] 05-14-2023 16:10-0400 Respiratory rate 16 /min [place] Doctor [facility] 05-14-2023 16:10-0400 SaO2% (BldA) [Mass fraction] 98 % Out [place] [facility] 05-14-2023 16:10-0400 Systolic blood pressure 138 mm[Hg] [place] [facility] 03-27-2023 16:01-0400 Body height 165.1 cm Dilia Angulo MD Work Phone: [facility] 03-27-2023 16:01-0400 Body weight 102.92 kg Dilia Angulo MD Work Phone: [facility] 03-27-2023 16:01-0400 Diastolic blood pressure 73 mm[Hg] Dilia Angulo MD Work Phone: [facility] 03-27-2023 16:01-0400 Heart rate 86 /min Dilia Angulo MD Work Phone: [facility] 03-27-2023 16:01-0400 SaO2% (BldA) [Mass fraction] 94 % Dilia Angulo MD Work Phone: [facility] 03-27-2023 16:01-0400 Systolic blood pressure 121 mm[Hg] Dilia Angulo MD Work Phone: [facility] 03-05-2023 09:07-0400 Body height 165.1 cm [place] Doctor [facility] 02-20-2023 13:09-0400 Body height 165.[address] Levon Reyes Work Phone: [facility] 02-20-2023 13:09-0400 Body mass index (BMI) [Ratio] 38.6 kg/m2 Dr. Levon Reyes Work Phone: [facility] 02-20-2023 13:09-0400 Body temperature 96.8 [degF] Dr. Levon Reyes Work Phone: [facility] 02-20-2023 13:09-0400 Body weight 105.[address] Levon Reyes Work Phone: [facility] 02-20-2023 13:09-0400 Diastolic blood pressure 99 mm[Hg] Dr. Levon Reyes Work Phone: [facility] 02-20-2023 13:09-0400 Heart rate 93 /min Dr. Levon eRyes Work Phone: [facility] 02-20-2023 13:09-0400 Respiratory rate 18 /min Dr. Levon Reyes Work Phone: [facility] 02-20-2023 13:09-0400 SaO2% (BldA) [Mass fraction] 98 % Dr. Levon Reyes Work Phone: [facility] 02-20-2023 13:09-0400 Systolic blood pressure 153 mm[Hg] Dr. Levon Reyes Work Phone: [facility] 01-24-2023 10:49-0400 Body mass index (BMI) [Ratio] 37.4 kg/m2 Dr. Levon Reyes Work Phone: [facility] 01-24-2023 10:49-0400 Body weight 102.[address] Levon Reyes Work Phone: [facility] 11-10-2022 13:30-0400 Body temperature 97 [degF] Umang Roy MD Work Phone: [facility] 11-10-2022 13:30-0400 Diastolic blood pressure 85 mm[Hg] Umang Roy MD Work Phone: [facility] 11-10-2022 13:30-0400 Heart rate 75 /min Umang Roy MD Work Phone: [facility] 11-10-2022 13:30-0400 Respiratory rate 16 /min Umang Roy MD Work Phone: [facility] 11-10-2022 13:30-0400 SaO2% (BldA) [Mass fraction] 95 % Umang Roy MD Work Phone: [facility] 11-10-2022 13:30-0400 Systolic blood pressure 138 mm[Hg] Umang Roy MD Work Phone: [facility] 11-06-2022 13:16-0400 Body height 165.1 cm Umang Roy MD Work Phone: [facility] 11-06-2022 13:16-0400 Body temperature 98.01 [degF] Umang Roy MD Work Phone: [facility] 11-06-2022 13:16-0400 Body weight 108.05 kg Umang Roy MD Work Phone: [facility] 11-06-2022 13:16-0400 Diastolic blood pressure 84 mm[Hg] Umang Roy MD Work Phone: [facility] 11-06-2022 13:16-0400 Heart rate 99 /min Umang Roy MD Work Phone: [facility] 11-06-2022 13:16-0400 SaO2% (BldA) [Mass fraction] 99 % Umang Roy MD Work Phone: [facility] 11-06-2022 13:16-0400 Systolic blood pressure 122 mm[Hg] Umang Roy MD Work Phone: [facility] 05-29-2022 14:18-0400 Body height 165.1 cm Logan Haddad Work Phone: [facility] Work Phone: 05-29-2022 14:18-0400 Body mass index (BMI) [Ratio] 39.44 kg/m2 Logan Haddad Work Phone: [facility] Work Phone: 05-29-2022 14:18-0400 Body surface area Derived from formula 2.13 m2 Logan Haddad Work Phone: [facility] Work Phone: 05-29-2022 14:18-0400 Body weight 107.5 kg Logan Haddad Work Phone: [facility] Work Phone: 05-29-2022 14:18-0400 Diastolic blood pressure 79 mm[Hg] Logan Haddad Work Phone: [facility] Work Phone: 05-29-2022 14:18-0400 Systolic blood pressure 129 mm[Hg] Logan Haddad Work Phone: [facility] Work Phone: 04-06-2022 09:10-0400 Body height 167.6 cm Dilia Angulo MD Work Phone: [facility] 04-06-2022 09:10-0400 Body weight 107.96 kg Dilia Angulo MD Work Phone: [facility] 04-06-2022 09:10-0400 Diastolic blood pressure 92 mm[Hg] Dilia Angulo MD Work Phone: [facility] 04-06-2022 09:10-0400 Heart rate 74 /min Dilia Angulo MD Work Phone: [facility] 04-06-2022 09:10-0400 Respiratory rate 16 /min Dilia Angulo MD Work Phone: [facility] 04-06-2022 09:10-0400 SaO2% (BldA) [Mass fraction] 95 % Dilia Angulo MD Work Phone: [facility] 04-06-2022 09:10-0400 Systolic blood pressure 138 mm[Hg] Dilia Angulo MD Work Phone: [facility] 03-11-2022 11:26-0400 Body temperature 98.9 [degF] [facility] Work Phone: 03-11-2022 11:26-0400 Diastolic blood pressure 78 mm[Hg] [facility] Work Phone: 03-11-2022 11:26-0400 Heart rate 66 /min [facility] Work Phone: 03-11-2022 11:26-0400 Respiratory rate 14 /min [facility] Work Phone: 03-11-2022 11:26-0400 SaO2% (BldA) [Mass fraction] 99 % [facility] Work Phone: 03-11-2022 11:26-0400 Systolic blood pressure 134 mm[Hg] [facility] Work Phone: 03-11-2022 10:31-0400 Body height 165.1 cm [facility] Work Phone: 03-11-2022 10:31-0400 Body mass index (BMI) [Ratio] 38.2 kg/m2 [facility] Work Phone: 03-11-2022 10:31-0400 Body weight 104.32 kg [facility] Work Phone: 12-30-2021 16:15-0400 Body temperature 97.7 [degF] Dr. Melony Tejada Work Phone: [facility] Work Phone: 12-30-2021 16:15-0400 Diastolic blood pressure 86 mm[Hg] Dr. Melony Tejada Work Phone: [facility] Work Phone: 12-30-2021 16:15-0400 Heart rate 82 /min Dr. Melony Tejada Work Phone: [facility] Work Phone: 12-30-2021 16:15-0400 Respiratory rate 16 /min Dr. Melony Tejada Work Phone: [facility] Work Phone: 12-30-2021 16:15-0400 SaO2% (BldA) [Mass fraction] 95 % Dr. Melony Tejada Work Phone: [facility] Work Phone: 12-30-2021 16:15-0400 Systolic blood pressure 113 mm[Hg] Dr. Melony Tejada Work Phone: [facility] Work Phone: 12-30-2021 15:30-0400 Inhaled oxygen flow rate 2 L/min [facility] Work Phone: 12-30-2021 11:10-0400 Body height 165.[address] Melony Tejada Work Phone: [facility] Work Phone: 12-30-2021 11:10-0400 Body mass index (BMI) [Ratio] 37.6 kg/m2 Dr. Melony Tejada Work Phone: [facility] Work Phone: 12-30-2021 11:10-0400 Body weight 102.[address] Melony Tejada Work Phone: [facility] Work Phone: 11-10-2021 10:14-0400 Body mass index (BMI) [Ratio] 38.6 kg/m2 Dr. Melony Tejada Work Phone: [facility] Work Phone: 11-10-2021 10:14-0400 Body temperature 96.7 [degF] Dr. Melony Tejada Work Phone: [facility] Work Phone: 11-10-2021 10:14-0400 Body weight 105.[address] Melony Tejada Work Phone: [facility] Work Phone: 11-10-2021 10:14-0400 Diastolic blood pressure 80 mm[Hg] Dr. Melony Tejada Work Phone: [facility] Work Phone: 11-10-2021 10:14-0400 Heart rate 86 /min Dr. Melony Tejada Work Phone: [facility] Work Phone: 11-10-2021 10:14-0400 Respiratory rate 18 /min Dr. Melony Tejada Work Phone: [facility] Work Phone: 11-10-2021 10:14-0400 SaO2% (BldA) [Mass fraction] 98 % Dr. Melony Tejada Work Phone: [facility] Work Phone: 11-10-2021 10:14-0400 Systolic blood pressure 110 mm[Hg] Dr. Melony Tejada Work Phone: [facility] Work Phone: 10-21-2021 08:28-0500 Body mass index (BMI) [Ratio] 36.6 kg/m2 Dr. Melony Tejada Work Phone: [facility] Work Phone: 10-21-2021 08:28-0500 Body weight 99.[address] Melony Tejada Work Phone: [facility] Work Phone: 09-04-2021 13:31-0500 Body temperature 98.4 [degF] Dr. Melony Tejada Work Phone: [facility] Work Phone: 09-04-2021 13:31-0500 Diastolic blood pressure 87 mm[Hg] Dr. Melony Tejada Work Phone: [facility] Work Phone: 09-04-2021 13:31-0500 Heart rate 78 /min Dr. Melony Tejada Work Phone: [facility] Work Phone: 09-04-2021 13:31-0500 Respiratory rate 14 /min Dr. Melony Tejada Work Phone: [facility] Work Phone: 09-04-2021 13:31-0500 SaO2% (BldA) [Mass fraction] 98 % Dr. Melony Tejada Work Phone: [facility] Work Phone: 09-04-2021 13:31-0500 Systolic blood pressure 135 mm[Hg] Dr. Melony Tejada Work Phone: [facility] Work Phone: 09-04-2021 08:19-0500 Body mass index (BMI) [Ratio] 36.6 kg/m2 Dr. Melony Tejada Work Phone: [facility] Work Phone: 09-04-2021 08:19-0500 Body weight 99.[address] Melony Tejada Work Phone: [facility] Work Phone: 02-28-2021 10:29-0400 Body height 165.1 cm Logan Haddad Work Phone: [facility] Work Phone: 02-28-2021 10:29-0400 Body mass index (BMI) [Ratio] 35.78 kg/m2 Logan Haddad Work Phone: [facility] Work Phone: 02-28-2021 10:29-0400 Body surface area Derived from formula 2.04 m2 Logan Haddad Work Phone: [facility] Work Phone: 02-28-2021 10:29-0400 Body weight 97.52 kg Logan Haddad Work Phone: [facility] Work Phone: 02-28-2021 10:29-0400 Diastolic blood pressure 84 mm[Hg] Logan Haddad Work Phone: [facility] Work Phone: 02-28-2021 10:29-0400 Systolic blood pressure 124 mm[Hg] Logan Haddad Work Phone: [facility] Work Phone: 02-24-2020 11:11-0400 BMI (Body Mass Index) 33.95 kg/m2 [facility] Work Phone: 02-24-2020 11:11-0400 Body weight 92.53 kg [facility] Work Phone: 02-24-2020 11:11-0400 BP Diastolic 84 mm[Hg] [facility] Work Phone: 02-24-2020 11:11-0400 BP Systolic 128 mm[Hg] [facility] Work Phone: 02-24-2020 11:11-0400 BSA (Body Surface Area) 1.99 m2 [facility] Work Phone: 02-24-2020 11:11-0400 Height 165.1 cm [facility] Work Phone: Encounters Encounter Date Encounter Type Care Provider Facility Start: 07-07-2025 ambulatory Wandy Aruna Facility :[facility] Start: 06-12-2025 End: 06-12-2025 ambulatory [facility] [place] [facility] Facility[place] Start: 06-05-2025 End: 06-05-2025 ambulatory Wandy Valdovinos Facility:[facility] Start: 05-22-2025 End: 05-22-2025 ambulatory [facility] [place] Facility:[facility] Start: 05-08-2025 End: 05-08-2025 [facility] Facility:[facility] Start: 05-04-2025 End: 05-04-2025 Patient encounter procedure Keyana Velazquez NP-C -[facility] Work Phone: Start: 05-04-2025 End: 05-04-[address] Wandy Valdovinos MD Work Phone: -[facility] Start: 04-10-2025 End: 04-10-2025 ambulatory [facility] [place] Facility:[facility] Start: 03-27-2025 End: 03-27-2025 ambulatory [facility] [place] Facility:[facility] Start: 03-05-2025 End: 03-05-[address] Wandy Valdovinos MD Work Phone: -Physical Therapy Start: 03-05-2025 End: 03-05-[address] Mercy Jin MD -Physical Therapy Work Phone: Start: 03-04-2025 End: 03-04-2025 ambulatory [facility] [place] Facility:[facility] Start: 02-27-2025 End: 02-27-2025 Office outpatient visit 25 minutes Dilia Angulo MD Work Phone: Neurology Comment on above: Chronic migraine wit hout aura without status migrainosus, not intractable; Meniere's disease, unspecified laterality; Menopausal and perimenopausal disorder Start: 02-27-2025 End: 02-27-2025 ambulatory [facility] [place] Facility:[facility] Start: 02-16-2025 End: 02-17-2025 Refill Dilia Angulo MD Work Phone: Neurology Comment on above: Refill Request Start: 02-06-2025 End: 02-06-2025 ambulatory LOGAN BISWAS PEYTON Facility:[facility] Start: 01-23-2025 End: 01-23-2025 ambulatory [facility] [place] Facility:[facility] Start: 01-09-2025 End: 01-09-2025 ambulatory [facility] [place] Facility:[facility] Start: 12-26-2024 End: 12-26-2024 ambulatory [facility] [place] Facility:[facility] Start: 12-16-2024 End: 12-22-2024 Refill Dilia Angulo MD Work Phone: Neurology Comment on above: Refill Request Start: 12-11-2024 End: 12-11-2024 ambulatory Cheyenne MORRIS Work Phone: [facility] Work Phone: Start: 12-11-2024 End: 12-11-[address] Michelle Estrada MD -Outpatient Breast Imaging Work Phone: Start: 12-11-2024 End: 12-11-2024 ambulatory Wandy Palmyra Facility:[facility] Start: 12-01-2024 End: 12-01-[address] Michelle Estrada MD -Laboratory, Specimen Work Phone: Start: 12-01-2024 End: 12-01-[address] Michelle Estrada MD -[facility] Work Phone: Start: 12-01-2024 End: 12-01-[address] Michelle Estrada MD [facility] Start: 12-01-2024 End: 12-01-2024 ambulatory Wandy Aruna Facility:[facility] Start: 12-01-2024 End: 12-01-2024 ambulatory [facility] Facility:[facility] Start: 11-28-2024 End: 11-28-2024 ambulatory LOGAN [place] Facility:[facility] Start: 11-18-2024 End: 11-18-2024 ambulatory Cheyenne MORRIS Work Phone: [facility] Work Phone: Start: 11-18-2024 End: 11-18-[address] Wandy Valdovinos MD -Sleep Lab Work Phone: Start: 11-18-2024 End: 11-18-2024 ambulatory Wandy Valdovinos Facility:[facility] Start: 11-07-2024 End: 11-07-2024 ambulatory [facility] [place] Facility[place] Start: 11-03-2024 End: 11-10-2024 Telephone encounter Dilia Angulo MD Work Phone: Neurology Comment on above: Release Of Medical R ecords Start: 10-29-2024 End: 10-29-[address] Wandy Valdovinos MD -[facility] Work Phone: Start: 10-29-2024 End: 10-29-2024 ambulatory Wandy Valdovinos Facility:[facility] Start: 10-24-2024 End: 10-24-2024 ambulatory [facility] Facility:[facility] Start: 10-20-2024 End: 10-20-2024 Refill Dilia Angulo MD Work Phone: Neurology Comment on above: Refill Request Start: 10-15-2024 End: 10-15-2024 ambulatory Cheyenne MORRIS Work Phone: [facility] Work Phone: Start: 10-15-2024 End: 10-15-2024 Patient encounter procedure Cheyenne MORRIS Work Phone: -Outpatient Bone Densitometry Work Phone: Start: 10-15-2024 End: 10-15-2024 ambulatory Wandy Valdovinos Facility:[facility] Start: 10-10-2024 End: 10-10-[address] Ed Lipscomb MD -[facility] Work Phone: Start: 10-10-2024 End: 10-10-2024 ambulatory [facility] [place] Facility:[facility] Start: 10-02-2024 ambulatory Wandy Aruna Facility :[facility] Start: 10-02-2024 Non-patient / Non-visit Dr. Mario keane MD -[facility] Start: 10-02-2024 End: 10-02-2024 Patient encounter procedure Cheyenne MORRIS -Cardiovascular Services Work Phone: Start: 10-02-2024 End: 10-02-2024 ambulatory Wandy Valdovinos Facility:[facility] Start: 09-30-2024 End: 09-30-2024 Patient encounter procedure Guillermo MORRIS -Laboratory Work Phone: Start: 09-30-2024 End: 09-30-2024 ambulatory Wandy Valdovinos Facility:[facility] Start: 09-26-2024 End: 09-26-2024 Patient encounter procedure Guillermo MORRIS -[facility] Work Phone: Start: 09-26-2024 End: 09-26-2024 ambulatory LOGAN HADDAD Facility:[facility] Start: 09-09-2024 End: 09-09-2024 Patient encounter procedure Cheyenne MORRIS -Cat Ubaldo, [facility] Work Phone: Start: 09-09-2024 End: 09-09-2024 ambulatory Cheyenne Keller Facility:[facility] Start: 09-05-2024 End: 09-05-2024 ambulatory LOGAN HADDAD Facility:[facility] Start: 08-22-2024 End: 08-22-2024 ambulatory LOGAN HADDAD Facility:[facility] Start: 08-20-2024 End: 08-20-2024 Patient encounter procedure Cheyenne MORRIS -[facility] Work Phone: Start: 08-20-2024 End: 08-20-2024 ambulatory Cheyenne Keller Facility:[facility] Start: 08-15-2024 End: 08-21-2024 Refill Dilia Angulo MD Work Phone: Neurology Comment on above: Refill Request Start: 08-01-2024 End: 08-01-2024 ambulatory LOGAN HADDAD Facility:[facility] Start: 07-18-2024 End: 07-18-2024 ambulatory LOGAN BISWAS PEYTON Facility:[facility] Start: 07-04-2024 End: 07-04-2024 ambulatory LOGAN BISWAS PEYTON Facility:[facility] Start: 04-01-2024 End: 04-01-2024 Refill Dilia Angulo MD Work Phone: Neurology Comment on above: Refill Request Start: 12-23-2023 End: 02-20-[address] SIMRAN DILL MD Facility:R Start: 12-07-2023 End: 12-21-2023 Evaluation and management of inpatient Dr. Ed Lipscomb Work Phone: [facility] Work Phone: Start: 12-07-2023 End: 12-21-2023 Dr. Ed Lipscomb Work Phone: [facility] Start: 12-04-2023 End: 12-07-2023 ambulatory [facility] Facility:[facility] Start: 12-01-2023 Dr. Ed cobb Work Phone: [facility] Work Phone: Start: 11-21-2023 Telephone encounter Radha schaefer RN INTERVENTIONAL.DAY HABILITATION SPECIALIST Work Phone: Pre Anesthesia Start: 11-19-2023 End: 11-19-2023 Telephone encounter Radha Oliveira RN INTERVENTIONAL.DAY HABILITATION SPECIALIST Work Phone: Pre Anesthesia Comment on above: Preoperative examina tion (Primary Dx); Anemia, unspecified type; Essential hypertension; Migraine without status migrainosus, not intractable, unspecified migraine type; Chronic left-sided low back pain with left-sided sciatica; Depression, major, recurrent, moderate (HCC); Irritable bowel syndrome with both constipation and diarrhea; Gastroesophageal reflux disease, unspecified whether esophagitis present; Hyperlipidemia, unspecified hyperlipidemia type; Acquired hypothyroidism; Nicotine use disorder, F17.2; Marijuana use; Pain disorder with psychological component; Class 2 obesity with body mass index (BMI) of 37.0 to 37.9 in adult, unspecified obesity type, unspecified whether serious comorbidity present Start: 11-19-2023 End: 11-19-[address] [facility] Work Phone: [facility] Start: 11-19-2023 End: 11-19-[address] [facility] Work Phone: [facility] Work Phone: Start: 11-15-2023 Telephone encounter Chantal Salamanca nkechivivi [facility] Work Phone: [facility] Case Management Start: 11-14-2023 End: 11-14-2023 Emergency department patient visit Out [facility] Department Work Phone: Start: 11-14-2023 End: 11-14-2023 Dr. Ed Lipscomb Work Phone: [facility]-Emergency Department Work Phone: Start: 10-23-2023 End: 10-23-2023 ambulatory Out of Town [facility] Work Phone: Start: 10-23-2023 End: 10-23-2023 Patient encounter procedure Out [facility]-Laboratory Work Phone: Start: 10-23-2023 End: 10-23-2023 Dr. dE Lipscomb Work Phone: [facility]-Labor[facility] Work Phone: Start: 10-04-2023 End: 10-04-2023 Patient encounter procedure Out [facility] Doctor [facility] Work Phone: Start: 10-04-2023 End: 10-04-2023 Dr. Ed Lipscomb Work Phone: [facility] Work Phone: Start: 09-28-2023 End: 11-26-2023 ambulatory [facility] PHYSICIAN Facility:R Start: 09-25-2023 End: 09-25-2023 Emergency department patient visit Out of Town [facility] Work Phone: Start: 09-25-2023 End: 09-25-2023 Out [facility]Emergency Department Work Phone: Start: 09-21-2023 End: 09-21-2023 ambulatory Out of [facility] Work Phone: Start: 09-21-2023 End: 09-21-2023 Patient encounter procedure Out [facility] Work Phone: Start: 09-21-2023 End: 09-21-2023 Out [facility] Work Phone: Start: 09-19-2023 Refill Dilia Angulo MD Work Phone: Neurology Comment on above: Refill Request Start: 09-16-2023 End: 09-16-2023 Emergency department patient visit Out [facility]Emergency Department Work Phone: Start: 09-16-2023 End: 09-16-2023 Out [facility] Work Phone: Start: 09-12-2023 End: 09-27-2023 Evaluation and management of inpatient Out [facility]Transitional Care Unit Start: 09-12-2023 End: 09-27-2023 Out [facility] Start: 09-12-2023 Non-patient / Non-visit Out [facility] Start: 09-12-2023 Out [facility] Start: 09-12-2023 Non-patient / Non-visit Out [facility] Inpatient Physicians Work Phone: Start: 09-12-2023 Out [facility] Inpatient Physicians Work Phone: Start: 09-11-2023 Non-patient / Non-visit Out [facility] Start: 09-11-2023 Out [facility] Start: 09-11-2023 Non-patient / Non-visit [place] [facility] Work Phone: Start: 09-11-2023 Out [place] Doctor [facility] Work Phone: Start: 09-10-2023 Non-patient / Non-visit [place] [facility] Start: 09-10-2023 Out [place] [facility] Tzeplept-UOO-WPE Start: 09-10-2023 ambulatory NONE PHYSICIAN Facility :R Start: 09-10-2023 Non-patient / Non-visit [place] [facility] Work Phone: Start: 09-10-2023 Out [facility] Work Phone: Start: 09-09-2023 Non-patient / Non-visit [place] [facility] Start: 09-09-2023 Out [facility] Ewyrzfoz-RPL-WLF Start: 09-09-2023 Non-patient / Non-visit [place] [facility] Work Phone: Start: 09-09-2023 Out [facility] Work Phone: Start: 09-08-2023 Non-patient / Non-visit [place] [facility] Start: 09-08-2023 Out [place] [facility] Abydycgn-GVW-FOI Start: 09-08-2023 Non-patient / Non-visit [place] [facility] Start: 09-08-2023 Out [place] [facility] Vsrakijq-KLP-ARV Start: 09-08-2023 Non-patient / Non-visit [place] [facility] Work Phone: Start: 09-08-2023 Out [place] [facility] Work Phone: Start: 09-07-2023 Non-patient / Non-visit [place] [facility] Start: 09-07-2023 Out [facility] Doctor [facility] Start: 09-07-2023 Non-patient / Non-visit [place] [facility] Work Phone: Start: 09-07-2023 Out [place] [facility] Work Phone: Start: 09-06-2023 Non-patient / Non-visit [place] [facility] Start: 09-06-2023 Out [facility] Start: 09-05-2023 Non-patient / Non-visit [place] [facility] Start: 09-05-2023 Out [facility] Start: 09-05-2023 Non-patient / Non-visit [place] [facility] Work Phone: Start: 09-05-2023 Out [facility] Work Phone: Start: 09-04-2023 Non-patient / Non-visit Out [facility] Start: 09-04-2023 End: 09-12-2023 Evaluation and management of inpatient [place] Doctor [facility] Work Phone: Start: 09-04-2023 End: 09-12-2023 Out [place] Doctor [facility] Work Phone: Start: 09-03-2023 Non-patient / Non-visit [place] [facility] Work Phone: Start: 09-03-2023 Out [facility] Work Phone: Start: 09-03-2023 Non-patient / Non-visit [place] Doc cristina [facility] Start: 09-03-2023 Out [place] Doctor [facility] Start: 08-30-2023 End: 08-30-2023 Patient encounter procedure [place] Doctor [facility] Work Phone: Start: 08-30-2023 End: 08-30-2023 Out [facility] Doctor [facility] Work Phone: Start: 08-24-2023 End: 08-24-2023 Patient encounter procedure Out [facility] Doctor [facility] Work Phone: Start: 08-24-2023 End: 08-24-2023 Out [facility] Doctor [facility] Work Phone: Start: 08-20-2023 End: 08-20-2023 ambulatory Out of Town [facility] Work Phone: Start: 08-20-2023 End: 08-20-2023 Patient encounter procedure Out [facility]Labor[facility] Work Phone: Start: 08-20-2023 End: 08-20-2023 Non-patient / Non-visit [place] Doctor [facility] Work Phone: Start: 08-20-2023 End: 08-20-2023 Out [facility] Doctor [facility] Work Phone: Start: 07-25-2023 End: 07-25-2023 Patient encounter procedure Out [facility] Doctor [facility] Work Phone: Start: 07-25-2023 End: 07-25-2023 Out [facility] Doctor [facility] Work Phone: Start: 07-20-2023 End: 07-20-2023 ambulatory Out of [place] [facility] Work Phone: Start: 07-20-2023 End: 07-20-2023 Patient encounter procedure Out [facility] Work Phone: Start: 07-20-2023 End: 07-20-2023 Out [facility] Work Phone: Start: 06-26-2023 End: 06-26-2023 Patient encounter procedure Out [facility] Work Phone: Start: 06-26-2023 End: 06-26-2023 Out [facility] Work Phone: Start: 06-21-2023 End: 06-21-2023 Patient encounter procedure Out [facility] Work Phone: Start: 06-21-2023 End: 06-21-2023 Out [facility] Work Phone: Start: 06-18-2023 End: 06-18-2023 Patient encounter procedure Out [facility] Work Phone: Start: 06-18-2023 End: 06-18-2023 Out [facility] Work Phone: Start: 05-14-2023 End: 05-14-2023 Patient encounter procedure Out [facility] Work Phone: Start: 03-30-2023 End: 03-30-2023 ambulatory Out of [facility] Work Phone: Start: 03-30-2023 End: 03-30-2023 Patient encounter procedure Out [facility] Work Phone: Start: 03-27-2023 End: 03-28-2023 Office outpatient visit 25 minutes Dilia Angulo MD Work Phone: Neurology Comment on above: Abdominal migraine, intractable (Primary Dx) Start: 03-08-2023 End: 03-08-2023 Patient encounter procedure Out [facility] Work Phone: Start: 02-20-2023 End: 02-20-2023 Emergency department patient visit Dr. Levon Reyes Work Phone: [facility]-Emergency Department Work Phone: Start: 02-19-[address] Chris Reyes Work Phone: [facility]-Physical Therapy Work Phone: Start: 01-25-2023 Refill Dilia Angulo MD Work Phone: Neurology Comment on above: Refill Request Start: 01-24-2023 End: 01-24-[address] Levon Reyes Work Phone: [facility] Work Phone: Start: 11-10-2022 ambulatory UMANG ROY Facili ty:[facility] Start: 11-10-2022 End: 11-10-2022 Subsequent hospital visit by physician Umang Roy MD Work Phone: [facility] Endoscopy Comment on above: Encounter for screen ing for malignant neoplasm of colon [Z12.11] Start: 11-09-2022 End: 11-09-2022 ambulatory [facility] Work Phone: Start: 11-09-2022 End: 11-09-2022 Patient encounter procedure [facility]Radiology, [facility] Start: 11-06-2022 Telephone encounter Umang higuera MD Work Phone: General Surgery Comment on above: 11/10/2022 [facility] Start: 11-06-2022 End: 11-06-2022 Patient encounter procedure Umang Roy MD Work Phone: General Surgery Comment on above: Encounter for screen ing for malignant neoplasm of colon (Primary Dx) Start: 11-03-2022 Telephone encounter [facility] Provider [facility] Gastroenter[facility] Comment on above: mv november recall Start: 10-12-2022 AUDIT Logan bhat Work Phone: [facility] Work Phone: Start: 10-09-[address] Feli Anthony Facility:[id number] Start: 09-28-2022 End: 09-28-2022 Patient encounter procedure [facility] Start: 09-14-2022 End: 09-14-2022 ambulatory iDlia Angulo MD Work Phone: Neurology Comment on above: Vestibular migraine (Primary Dx) Start: 09-14-2022 End: 09-14-2022 Telemedicine consultation with patient Dilia Angulo MD Work Phone: [facility] Start: 08-24-2022 End: 08-24-2022 ambulatory [facility] Work Phone: Start: 08-24-2022 End: 08-24-2022 Discharged Recurring [facility]Physical Therapy Start: 08-24-2022 Registered Recurring [facility]-Physical Therapy Start: 08-21-2022 End: 08-21-2022 ambulatory [facility] Work Phone: Start: 08-21-2022 End: 08-21-2022 Patient encounter procedure [facility] Start: 06-09-2022 Refill Dilia Angulo MD Work Phone: Neurology Comment on above: Refill Request Start: 06-08-2022 Refill Dilia Angulo MD Work Phone: Neurology Comment on above: Refill Request Start: 05-29-[address] Feli Anthony Facility:[id number] Start: 05-29-2022 Patient encounter procedure Logan Haddad Work Phone: [facility] Work Phone: Start: 05-29-2022 Periodic preventive med est patient 40-64yrs Logan Haddad Work Phone: [facility] Work Phone: Start: 05-12-2022 End: 05-12-2022 ambulatory DILIA ANGULO Facility:[facility] Start: 05-08-2022 End: 05-08-2022 ambulatory [facility] Work Phone: Start: 05-08-2022 End: 05-08-2022 Patient encounter procedure [facility] Start: 04-06-2022 End: 04-06-2022 Patient encounter procedure Dilia Angulo MD Work Phone: Neurology Comment on above: Vestibular migraine (Primary Dx); Syncope and collapse Start: 03-30-2022 End: 03-30-2022 ambulatory [facility] Work Phone: Start: 03-30-2022 End: 03-30-2022 Patient encounter procedure [facility], [facility] Start: 03-11-2022 End: 03-11-2022 Emergency department patient visit [facility]Emergency Department Start: 02-07-2022 End: 02-07-2022 Patient encounter procedure Monica Mortensen MD Work Phone: Otolaryngology Comment on above: Meniere's disease of right ear (Primary Dx); Vestibular migraine; Perforation of right tympanic membrane; Imbalance; shelter current use of diuretic Start: 12-30-2021 End: 12-30-2021 Admission to same day surgery center Dr. Melnoy Tejada Work Phone: [facility] Day [facility] Start: 11-10-2021 End: 11-10-[address] Melony Tejada Work Phone: [facility] Endocrinology Start: 11-02-[address] Melony Tejada Work Phone: [facility] Start: 10-21-2021 End: 10-21-[address] Melony Tejada Work Phone: [facility] Start: 09-26-2021 End: 09-26-[address] Melony Tejada Work Phone: [facility] Start: 09-04-2021 Non-patient / Non-visit Dr. Sandy Tejada Work Phone: [facility] Start: 09-04-2021 End: 09-04-2021 Emergency department patient visit Dr. Melony Tejada Work Phone: [facility]-Emergency Department Start: 03-22-2021 AUDIT Logan Lopes er Work Phone: [facility] Work Phone: Start: 02-28-2021 Periodic preventive med est patient 40-64yrs Logan Haddad Work Phone: [facility] Work Phone: Start: 02-24-2020 Patient encounter procedure Melinda StaplesChevy [facility] Work Phone: Start: 12-26-2019 Patient encounter procedure Melinda Khalif-Che[facility] Work Phone: Start: 06-17-2018 [facility] Start: 10-23-2017 End: 11-19-2023 Preprocedural examination done Monica Mortensen MD Work Phone: [facility] Work Phone: Manual pelvic examination Logan Haddad Work Phone: [facility] Work Phone: Patient encounter status Logan Haddad Work Phone: [facility] Work Phone: Comment on above: Added by Problem Rolanda watson Migration; 2013-07-20; Physical examination Logan pérez Work Phone: [facility] Work Phone: Procedures Date Procedure Procedure Detail Performing Clinician Start: 12-11-2024 Screening mammography Keli Valdovinos MD Work Phone: Start: 12-01-2024 Liquid based cervica l cytology screening Dr. Wandy Valdovinos MD Work Phone: Comment on above: NEGATIVE FOR INTRAEP ITHELIAL LESION OR MALIGNANCY. This liquid based Th inPrep(R) pap test was screened withthe use of an image guided system. Start: 10-15-2024 Dual energy X-ray absorptiometry Cheyenne MORRIS Work Phone: Start: 10-10-2024 X-ray of lumbosacral spine Cheyenne MORRIS Work Phone: Start: 09-09-2024 CT angiography of ch est with contrast Cheyenne MORRIS Work Phone: Start: 11-14-2023 X-ray of lumbar spin e, two or three views [facility] Doctor Start: 10-04-2023 X-ray of lumbar spin e, two or three views [facility] Doctor Start: 09-25-2023 CT angiography of he ad and neck [facility] Doctor Start: 09-25-2023 CT of head without contrast [facility] Doctor Start: 09-25-2023 Plain chest X-ray Out own Doctor Start: 09-24-2023 Viral antigen assay [facility] [place] Doctor Start: 09-21-2023 MRI of lumbar spine [facility] Doctor Start: 09-16-2023 Computed tomography of abdomen and pelvis with intravenous contrast [facility] Doctor Start: 09-13-2023 Viral antigen assay [facility] Doctor Start: 09-11-2023 Computerized axial tomography of lumbar spine with contrast [facility] Doctor Start: 09-08-2023 Plain X-ray abdomen [facility] Doctor Start: 09-07-2023 Plain X-ray abdomen [facility] Doctor Start: 09-06-2023 Ultrasonography of abdomen [facility] [place] Doctor Start: 09-06-2023 Computed tomography of abdomen and pelvis with intravenous contrast Out [facility] Doctor Start: 09-04-2023 X-ray of lumbar spin e, two or three views Out [facility] Doctor Start: 09-03-2023 360 Lumbar Fusion (N ot Applicable) Out [facility] Doctor Start: 09-03-[address] Christiano Lipscomb Work Phone: Start: 09-03-2023 Out [facility] D octor Start: 09-03-2023 Fluoroscopic guidance O [facility] Doctor Start: 09-03-2023 X-ray of lumbosacral spine Out [facility] Doctor Start: 08-20-2023 Nasal Screen MRSA/MSSA Out [facility] Doctor Start: 08-20-2023 [facility] octor Start: 07-20-2023 MRI of lumbar spine Out [facility] Doctor Start: 06-26-2023 X-ray of lumbosacral spine [facility] Doctor Start: 06-18-2023 Plain x-ray of pelvi s and lower extremity [facility] Doctor Start: 03-08-2023 X-ray of lumbar spin e, two or three views [facility] Doctor Start: 01-24-2023 Radiologic examinati on of knee Dr. Levon Reyes Work Phone: Start: 11-10-2022 Colonoscopy flx dx w /collj spec when pfrmd Umang Roy MD Work Phone: Start: 11-10-2022 Colonoscopy Umang george MD Work Phone: Start: 11-09-2022 Plain x-ray of pelvi s and lower extremity Start: 10-09-2022 Mammography Dilia melgar MD Work Phone: Start: 03-30-2022 End: 03-30-2022 Plain X-ray of shoulder Start: 03-11-2022 Plain chest X-ray Start: 12-30-2021 Fluoroscopic guidance Keli Tejada Work Phone: Start: 12-30-2021 Radiography of thora cic spine Start: 12-30-2021 Implantation of neurostimulator in spine Dr. Melony Tejada Work Phone: Start: 10-21-2021 X-ray of lumbar spin e, two or three views Dr. Melony Tejada Work Phone: Start: 09-26-2021 MRI of lumbar spine Dr. Melony Tejada Work Phone: Start: 09-04-2021 Plain chest X-ray Dr. Dion Tejada Work Phone: Start: 02-24-2020 MG Breast screening Susie CuadraDot Start: 02-24-2020 Microscopic observat ion [Identifier] in Cervix by Cyto stain.thin prep Melinda Adelaida Start: 07-12-2017 Lipid 1996 panel - S edis or Plasma Dilia Angulo MD Work Phone: Plan of Treatment Date Care Activity Detail Author Start: 11-10-2032 Colonoscopy COLONOSCOPY [facility] Start: 11-10-2032 COLORECTAL CANCER SCREENING COLORECTAL CANCER SCREENING [facility] Start: 11-10-2032 Screening for malignant neoplasm of colon [facility] Start: 12-06-2026 Diabetes Screening Diabetes Screening [facility] Start: 11-18-2026 Diabetes Screening Diabetes Screening [facility] Start: 04-13-2025 Influenza vaccination Influenza Vaccine (#1) [facility] Start: 02-27-2025 End: 02-27-2025 Follow-up encounter 02/27/2025 4:00 PM EDT [facility] [address] [id number] Dilia Angulo MD [address] [place] [address] Follow up for medication Neurology Comment on above: Follow up for medication Start: 02-07-2025 DIABETES SCREEN DIABETES SCREEN [facility] Start: 02-07-2025 Diabetes Screening Diabetes Screening [facility] Start: 12-11-2024 MG Breast - bilateral Screening [facility] Start: 12-11-2024 Screening mammography SCRN MAMM (CAD)W/JACQUES BILAT [facility] Start: 08-13-2024 Medicare Advantage Annual Wellness Visit Medicare Advantage Annual Wellness Visit [facility] Start: 04-13-2024 Covid-19 Vaccine ( season) Covid-19 Vaccine ( season) [facility] Start: 04-13-2024 Influenza vaccination Influenza Vaccine (#1) [facility] Start: 03-27-2024 BP CONTROLLED (<130/80) BP CONTROLLED (<130/80) [facility] Start: 01-05-2024 Blood chemistry [facility] Start: 12-29-2023 Blood chemistry [facility] Start: 12-22-2023 Blood chemistry [facility] Start: 12-21-2023 Patient discharge [facility] Start: 12-18-2023 [facility] Start: 12-14-2023 [facility] Start: 12-13-2023 Referral to service [facility] Start: 12-10-2023 Application of device [facility] Start: 12-08-2023 Developing a treatment plan [facility] Start: 12-08-2023 Development of care plan [facility] Start: 12-07-2023 Admission procedure [facility] Start: 12-07-2023 Measuring intake and output [facility] Start: 12-07-2023 Patient referral to dietitian [facility] Start: 12-07-2023 Referral to occupational therapist [facility] Start: 12-07-2023 Referral to service [facility] Start: 12-07-2023 Verification routine [facility] Start: 12-07-2023 Vital signs measurements [facility] Start: 12-07-2023 [facility] Start: 12-07-2023 Following clinical pathway protocol [facility] Start: 12-07-2023 Consultation [facility] Start: 11-19-2023 End: 02-18-2024 TYPE AND SCREEN,30 DAY [facility] Work Phone: Comment on above: Expected: 11/19/2023, Expires: Start: 11-11-2023 Colonoscopy COLONOSCOPY [facility] Start: 11-11-2023 COLORECTAL CANCER SCREENING COLORECTAL CANCER SCREENING [facility] Start: 10-23-2023 Procedure [facility] Start: 2023 Blood chemistry [facility] Start: 10-09-2023 Mammography MAMMOGRAM [facility] Start: 10-09-2023 Screening for malignant neoplasm of breast Mammogram Screening [facility] Start: 10-04-2023 Blood chemistry [facility] Start: 09-27-2023 Development of care plan [facility] Start: 09-27-2023 Blood chemistry [facility] Start: 09-27-2023 Patient discharge [facility] Start: 09-25-2023 Referral to service [facility] Start: 09-25-2023 Oxygen therapy [facility] Start: 09-25-2023 [facility] Start: 09-20-2023 Blood chemistry [facility] Start: 09-18-2023 [facility] Start: 09-18-2023 Application of device [facility] Start: 09-16-2023 [facility] Start: 09-14-2023 [facility] Start: 09-14-2023 [facility] Start: 09-13-2023 Development of care plan [facility] Start: 09-13-2023 Developing a treatment plan [facility] Start: 09-12-2023 Verification routine [facility] Start: 09-12-2023 [facility] Start: 09-12-2023 Following clinical pathway protocol [facility] Start: 09-12-2023 Admission procedure [facility] Start: 09-12-2023 Measuring intake and output [facility] Start: 09-12-2023 Patient referral to dietitian [facility] Start: 09-12-2023 Referral to occupational therapist [facility] Start: 09-12-2023 Referral to service [facility] Start: 09-12-2023 Vital signs measurements [facility] Start: 09-12-2023 [facility] Start: 09-12-2023 Patient discharge [facility] Start: 09-06-2023 Referral to general surgeon [facility] Start: 09-06-2023 Provision of activity privileges [facility] Start: 09-05-2023 Referral to service [facility] Start: 09-05-2023 End: 09-05-2023 Consultation [facility] Start: 09-04-2023 Admission procedure [facility] Start: 09-03-2023 Following clinical pathway protocol [facility] Start: 09-03-2023 Consultation [facility] Start: 09-03-2023 Referral to occupational therapist [facility] Start: 09-03-2023 Application of ice collar, cap or bag [facility] Start: 09-03-2023 Application of intermittent pneumatic compression device [facility] Start: 09-03-2023 Catheterization of vein [facility] Start: 09-03-2023 Following clinical pathway protocol [facility] Start: 09-03-2023 Measuring intake and output [facility] Start: 09-03-2023 Neurovascular assessment [facility] Start: 09-03-2023 Patient education [facility] Start: 09-03-2023 Procedure discontinued [facility] Start: 09-03-2023 Provision of activity privileges [facility] Start: 09-03-2023 Taking patient vital signs [facility] Start: 09-03-2023 Admission procedure [facility] Start: 09-03-2023 Referral to service [facility] Start: 06-11-2023 Patient encounter procedure ANNUAL, Provider: Feli Anthony, Status: Pen, Time: 3:00 PM [facility] Work Phone: Start: 04-13-2023 Covid-19 Vaccine ( season) Covid-19 Vaccine ( season) [facility] Start: 04-13-2023 Influenza vaccination INFLUENZA (#1) [facility] Start: 01-24-2023 Patient referral [facility] Work Phone: Start: 07-12-2022 Lipid panel Lipid Screening [facility] Start: 07-12-2022 LIPID SCREEN LIPID SCREEN [facility] Start: 04-13-2022 Influenza vaccination INFLUENZA (#1) [facility] Start: 03-11-2022 Viral nucleic acid assay [facility] Work Phone: Start: 03-11-2022 End: 03-11-2022 [facility] Work Phone: Start: 12-30-2021 Anes integ musc & nrv head neck&posterior trunk ANESTH HEAD/NECK/PTRUNK [facility] Work Phone: Start: 12-30-2021 Elec jerald implt npgt cplx sp/pn prgrmg JERALD CPLX SP/PN NPGT W/PRGRM [facility] Work Phone: Start: 12-30-2021 Insj/rplcmt spi npgr dir/induxive coupling INSRT/REDO SPINE N GENERATOR [facility] Work Phone: Start: 12-30-2021 Prq impltj nstim electrode array epidural IMPLANT NEUROELECTRODES [facility] Work Phone: Start: 12-30-2021 Radiography of thoracic spine Thoracic Spine 3 Views [facility] Work Phone: Start: 12-30-2021 Patient discharge [facility] Work Phone: Start: 10-28-2021 COVID-19 VACCINE (4 - Booster for Moderna series) COVID-19 VACCINE (4 - Booster for Moderna series) [facility] Start: 08-25-2021 COVID-19 VACCINE (4 - Booster for Moderna series) COVID-19 VACCINE (4 - Booster for Moderna series) [facility] Start: 08-25-2021 COVID-19 VACCINE (4 - Moderna series) COVID-19 VACCINE (4 - Moderna series) [facility] Start: 2020 SHINGRIX VACCINE (1 of 2) SHINGRIX VACCINE (1 of 2) [facility] Start: 11-08-2018 PNEUMOCOCCAL (2 - PCV) PNEUMOCOCCAL (2 - PCV) [facility] Start: 10-23-2018 ANNUAL PCP TEAM CHRONIC DISEASE VISIT ANNUAL PCP TEAM CHRONIC DISEASE VISIT [facility] Start: 10-12-2015 COLOGUARD (FIT-DNA) COLOGUARD (FIT-DNA) [facility] Start: 10-12-2015 Colonoscopy COLONOSCOPY [facility] Start: 10-12-2015 COLORECTAL CANCER SCREENING COLORECTAL CANCER SCREENING [facility] Start: 10-12-[address] COLONOGRAPHY [facility] Start: 10-12-2015 FECAL OCCULT BLOOD FECAL OCCULT BLOOD [facility] Start: 10-12-2015 Screening for malignant neoplasm of colon [facility] Start: 10-12-2015 SIGMOIDOSCOPY SIGMOIDOSCOPY [facility] Start: 2010 Mammography MAMMOGRAM [facility] Start: 2000 HPV TESTING HPV TESTING [facility] Start: 2000 Screening for malignant neoplasm of cervix HPV Testing [facility] Start: 10-12-1991 PAP TESTING PAP TESTING [facility] Start: 10-12-1991 Screening for malignant neoplasm of cervix [facility] Start: 1989 Hepatitis B Vaccine (1 of 3 - 19+ 3-dose series) Hepatitis B Vaccine (1 of 3 - 19+ 3-dose series) [facility] Start: 1989 Urine microalbumin profile [facility] Start: 1988 ANNUAL PCP TEAM CHRONIC DISEASE VISIT ANNUAL PCP TEAM CHRONIC DISEASE VISIT [facility] Start: 1988 Anxiety Screening Anxiety Screening [facility] Start: 1988 BP CONTROLLED (<130/80) BP CONTROLLED (<130/80) [facility] Start: 1988 HEPATITIS C SCREENING HEPATITIS C SCREENING [facility] Start: 1988 Hepatitis C screening Hepatitis C Screening [facility] Start: 1988 HIV SCREENING HIV SCREENING [facility] Start: 1988 HIV screening HIV Screening [facility] Start: 1970 HEPATITIS B (1 of 3 - 3-dose series) HEPATITIS B (1 of 3 - 3-dose series) [facility] Start: 1970 Hepatitis B Vaccine (1 of 3 - 3-dose series) Hepatitis B Vaccine (1 of 3 - 3-dose series) [facility] Anion gap measurement [facility] Anion gap measurement [facility] Anion gap measurement [facility] Anion gap measurement [facility] Anion gap measurement [facility] BUN/Creatinine ratio [facility] BUN/Creatinine ratio [facility] BUN/Creatinine ratio [facility] BUN/Creatinine ratio [facility] BUN/Creatinine ratio [facility] Calcium [Mass/volume ] in Serum or Plasma [facility] Calcium [Mass/volume ] in Serum or Plasma [facility] Calcium [Mass/volume ] in Serum or Plasma [facility] Calcium [Mass/volume ] in Serum or Plasma [facility] Calcium [Mass/volume ] in Serum or Plasma [facility] Carbon dioxide, tota l [Moles/volume] in Serum or Plasma [facility] Carbon dioxide, tota l [Moles/volume] in Serum or Plasma [facility] Carbon dioxide, tota l [Moles/volume] in Serum or Plasma [facility] Carbon dioxide, tota l [Moles/volume] in Serum or Plasma [facility] Carbon dioxide, tota l [Moles/volume] in Serum or Plasma [facility] Chloride [Moles/volu me] in Serum or Plasma [facility] Chloride [Moles/volu me] in Serum or Plasma [facility] Chloride [Moles/volu me] in Serum or Plasma [facility] Chloride [Moles/volu me] in Serum or Plasma [facility] Chloride [Moles/volu me] in Serum or Plasma [facility] End: 11-07-2023 COLONOSCOPY DIAGNOSTIC COLONOSCOPY DIAGNOSTIC Endoscopy Routine Encounter for screening for malignant neoplasm of colon 1 Occurrences starting 11/06/2022 until 11/07/2023 [facility] Work Phone: Comment on above: 1 Occurrences starting 11/06/2022 until 11/07/2023 Creatinine [Moles/vo lume] in Serum or Plasma [facility] Creatinine [Moles/vo lume] in Serum or Plasma [facility] Creatinine [Moles/vo lume] in Serum or Plasma [facility] Creatinine [Moles/vo lume] in Serum or Plasma [facility] Creatinine [Moles/vo lume] in Serum or Plasma [facility] CT Chest and Abdomen and Pelvis WO and W contrast IV [facility] Electrocardiographic procedure [facility] Erythrocyte mean cor puscular volume determination [facility] Erythrocyte mean cor puscular volume determination [facility] Erythrocyte mean cor puscular volume determination [facility] Erythrocyte mean cor puscular volume determination [facility] Erythrocyte mean cor puscular volume determination [facility] Erythrocyte mean cor puscular volume determination [facility] Erythrocyte mean cor puscular volume determination [facility] Glucose [Mass/volume ] in Serum or Plasma [facility] Glucose [Mass/volume ] in Serum or Plasma [facility] Glucose [Mass/volume ] in Serum or Plasma [facility] Glucose [Mass/volume ] in Serum or Plasma [facility] Glucose [Mass/volume ] in Serum or Plasma [facility] Hematocrit [Volume F raction] of Blood [facility] Hematocrit [Volume F raction] of Blood [facility] Hematocrit [Volume F raction] of Blood [facility] Hematocrit [Volume F raction] of Blood [facility] Hematocrit [Volume F raction] of Blood [facility] Hematocrit [Volume F raction] of Blood [facility] Hematocrit [Volume F raction] of Blood [facility] Hemoglobin [Mass/vol ume] in Blood [facility] Hemoglobin [Mass/vol ume] in Blood [facility] Hemoglobin [Mass/vol ume] in Blood [facility] Hemoglobin [Mass/vol ume] in Blood [facility] Hemoglobin [Mass/vol ume] in Blood [facility] Hemoglobin [Mass/vol ume] in Blood [facility] Hemoglobin [Mass/vol ume] in Blood [facility] Leukocytes [#/volume ] in Blood [facility] Leukocytes [#/volume ] in Blood [facility] Leukocytes [#/volume ] in Blood [facility] Leukocytes [#/volume ] in Blood [facility] Leukocytes [#/volume ] in Blood [facility] Leukocytes [#/volume ] in Blood [facility] Leukocytes [#/volume ] in Blood [facility] Liquid based cervica l cytology screening [facility] Mean corpuscular hem oglobin concentration determination [facility] Mean corpuscular hem oglobin concentration determination [facility] Mean corpuscular hem oglobin concentration determination [facility] Mean corpuscular hem oglobin concentration determination [facility] Mean corpuscular hem oglobin concentration determination [facility] Mean corpuscular hem oglobin concentration determination [facility] Mean corpuscular hem oglobin concentration determination [facility] Mean corpuscular hem oglobin determination [facility] Mean corpuscular hem oglobin determination [facility] Mean corpuscular hem oglobin determination [facility] Mean corpuscular hem oglobin determination [facility] Mean corpuscular hem oglobin determination [facility] Mean corpuscular hem oglobin determination [facility] Mean corpuscular hem oglobin determination [facility] Measurement of renal function [facility] Measurement of renal function [facility] Measurement of renal function [facility] Measurement of renal function [facility] Measurement of renal function [facility] Neutrophil count [facility] Neutrophil count [facility] Neutrophil count [facility] Neutrophil count [facility] Neutrophil count [facility] Neutrophil count [facility] Neutrophil count [facility] Neutrophil percent differential count [facility] Neutrophil percent differential count [facility] Neutrophil percent differential count [facility] Neutrophil percent differential count [facility] Neutrophil percent differential count [facility] Neutrophil percent differential count [facility] Neutrophil percent differential count [facility] Patient Education [facility] Work Phone: Patient referral [facility] Work Phone: Platelets [#/volume] in Blood [facility] Platelets [#/volume] in Blood [facility] Platelets [#/volume] in Blood [facility] Platelets [#/volume] in Blood [facility] Platelets [#/volume] in Blood [facility] Platelets [#/volume] in Blood [facility] Platelets [#/volume] in Blood [facility] Potassium [Moles/vol ume] in Serum or Plasma [facility] Potassium [Moles/vol ume] in Serum or Plasma [facility] Potassium [Moles/vol ume] in Serum or Plasma [facility] Potassium [Moles/vol ume] in Serum or Plasma [facility] Potassium [Moles/vol ume] in Serum or Plasma [facility] Red blood cell count [facility] Red blood cell count [facility] Red blood cell count [facility] Red blood cell count [facility] Red blood cell count [facility] Red blood cell count [facility] Red blood cell count [facility] Red cell distributio n width determination [facility] Red cell distributio n width determination [facility] Red cell distributio n width determination [facility] Red cell distributio n width determination [facility] Red cell distributio n width determination [facility] Red cell distributio n width determination [facility] Red cell distributio n width determination [facility] Sodium [Moles/volume ] in Serum or Plasma [facility] Sodium [Moles/volume ] in Serum or Plasma [facility] Sodium [Moles/volume ] in Serum or Plasma [facility] Sodium [Moles/volume ] in Serum or Plasma [facility] Sodium [Moles/volume ] in Serum or Plasma [facility] Tobacco use cessatio n education [facility] Urea nitrogen [Mass/ volume] in Serum or Plasma [facility] Urea nitrogen [Mass/ volume] in Serum or Plasma [facility] Urea nitrogen [Mass/ volume] in Serum or Plasma [facility] Urea nitrogen [Mass/ volume] in Serum or Plasma [facility] Urea nitrogen [Mass/ volume] in Serum or Plasma [facility] Urine test [facility] Immunizations Immunization Date Immunization Notes Care Provider [facility] 08-11-2024 Seasonal, quadrivale nt, recombinant, injectable influenza vaccine, preservative free Cheyenne MORRIS Work Phone: [facility] 08-11-2024 influenza virus vacc ine, unspecified formulation Dilia Angulo MD Work Phone: [facility] 09-18-2023 Covid (Spikevax) Out [facility] 07-20-2023 Influenza, injectabl e, Madin Vera Canine Kidney, preservative free, quadrivalent Out [facility] 07-20-2023 influenza virus vacc ine, unspecified formulation Dilia Angulo MD Work Phone: [facility] 04-07-2022 influenza, injectabl e, quadrivalent, preservative free Dr. Ed Lipscomb Work Phone: [facility] 09-26-2021 Pneumococcal Vaccine PCV20 (Prevnar 20) Out [facility] 06-30-2021 Covid (Moderna) Dr. Ed kaplan Work Phone: [facility] 06-20-2021 influenza, injectabl e, quadrivalent, preservative free Dr. Ed Lipscomb Work Phone: [facility] 10-27-2020 Covid (Moderna) Dr. Ed kaplan Work Phone: [facility] 09-30-2020 Madelin (Moderna) Dr. Ed kaplan Work Phone: [facility] 11-08-2017 pneumococcal polysaccharide vaccine, 23 valent Monica Mortensen MD Work Phone: [facility] Payers Date Payer Category Payer Self-pay [id number] 2023 Medicare (Managed Care) [id number]. [id number] 15 2018 Medicare [id number] 2018 Unknown [id number] 2015 Medicaid [id number] 2015 Medicaid [id number] 1970 Unknown [id number] 2.16. [id number] 1970 Unknown [id number] 2.16. [id number] 1970 Unknown [id number] 2.16. [id number] 1970 Unknown [id number] 2.16.8 40.1.101887.3.579.2.627 Medicare [id number] Unknown Unknown [id number] Unknown [id number] 2.16.8 40.1.448877.3.579.2.462 Unknown [id number] 2.16.8 40.1.021053.3.579.2.462 Unknown [id number] 2.16.8 40.1.185434.3.579.2.462 Unknown [id number] 2.16.8 40.1.063782.3.579.2.462 Unknown [id number] 2.16.8 40.1.883405.3.579.2.462 Unknown [id number] 2.16.8 40.1.039286.3.579.2.462 Unknown [id number] 2.16.8 40.1.227129.3.579.2.462 Unknown [id number] 2.16.8 40.1.158231.3.579.2.462 Unknown [id number] 2.16.8 40.1.458751.3.579.2.462 Unknown [id number] 2.16.8 40.1.971720.3.579.2.462 Unknown [id number] 2.16.8 40.1.207132.3.579.2.462 Unknown [id number] 2.16.8 40.1.947197.3.579.2.462 Unknown [id number] 2.16.8 40.1.204531.3.579.2.462 Unknown [id number] 2.16.8 40.1.072088.3.579.2.462 Unknown [id number] 2.16.8 40.1.710053.3.579.2.462 Unknown [id number] 2.16.8 40.1.055575.3.579.2.462 Unknown [id number] 2.16.8 40.1.969738.3.579.2.462 Unknown [id number] 2.16.8 [id number] Social History Date Type Detail Facility Start: 10-22-2017 End: 11-19-2023 Current every day smoker Current every day smoker [facility] Start: 12-27-2021 End: 12-13-2023 Tobacco smoking status DCIS Unknown if ever smoked [facility] Start: 03-27-2020 Spouse/ Signif icant Other [facility] Start: 1970 Sex Assigned At Female [facility] Start: 10-22-2017 End: 12-01-2024 Tobacco smoking status NHIS Smokes tobacco daily [facility] Work Phone: Start: 08-13-1996 End: 08-13-2021 History of tobacco use Cigarette Smoker [facility] Work Phone: Start: 10-22-2017 End: 11-19-2023 Tobacco use and exposure Smokeless tobacco non-user [facility] Work Phone: Start: 02-07-2022 Alcohol intake Current drinke r of alcohol (finding) [facility] Start: 10-22-2017 End: 11-06-2022 Tobacco Comment currently 1 pack every 3 days; patient cutting back for surgery - not ready to quit [facility] Start: 02-26-2022 End: 05-12-2022 Exposure to SARS-CoV-2 (event) Not sure [facility] Start: 11-06-2022 End: 11-19-2023 Tobacco smoking status NHIS Ex-smoker [facility] Start: 08-13-1996 End: 08-13-2021 History of tobacco use Current smoker [facility] Start: 11-06-2022 End: 12-04-2023 Alcohol intake Ex-drinker (finding) [facility] Start: 11-06-2022 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 [facility] Start: 11-22-2022 End: 11-19-2023 Tobacco use panel [facility] Adult Depression Screening Assessment 3 [facility] Start: 09-29-2020 Gender identity Identifies as female gender (finding) [facility] Start: 09-29-2020 Sexual orientation Heterosexual (darnell putnam) [facility] Start: 10-26-2024 End: 12-17-2024 Sex Female (finding) [facility] NEGATED: Highlighted row - - [facility] Work Phone: NEGATED: Highlighted row [facility] Medical Equipment Procedure Code Equipment Code Equipment Origin al Text Equipment Identifier Dates Insertion, spinal cord stimulator, permanent [id number] FDA Start: 12-30-2021 Insertion, spinal cord stimulator, permanent [id number] FDA Start: 12-30-2021 Insertion, spinal cord stimulator, permanent [id number] FDA Start: 12-30-2021 Head V40 36mm +2 .5mm Offset Taper Biolox Delta Femoral Hip - [id number] Start: 11-06-2017 Screw Trident Secur-Fit Torx 6.5mm Titanium 20mm Bone Sterile Acetabular - [id number] Start: 11-06-2017 120mm viper mark FDA Start: 09-03-2023 7x50 viper prime screw FDA Start: 09-03-2023 BONE,CRUSHED CANCELLOUS 15CC FDA Start: 09-03-2023 BONE,CRUSHED CANCELLOUS 15CC FDA Start: 09-03-2023 BONE,CRUSHED CANCELLOUS 15CC FDA Start: 09-03-2023 BONE,CRUSHED CANCELLOUS 15CC FDA Start: 09-03-2023 BONE,CRUSHED CANCELLOUS 15CC FDA Start: 09-03-2023 BONE,CRUSHED CANCELLOUS 15CC FDA Start: 09-03-2023 BONE,CRUSHED CANCELLOUS 15CC FDA Start: 09-03-2023 BONE,CRUSHED CANCELLOUS 15CC FDA Start: 09-03-2023 COUGAR LS CAGE FDA Start: 09-03-2023 120mm viper mark FDA Start: 09-03-2023 PASTE,BONE DBX 5CC FDA Start: 09-03-2023 set screw FDA Start: 09-03-2023 set screw FDA Start: 09-03-2023 set screw FDA Start: 09-03-2023 set screw FDA Start: 09-03-2023 set screw FDA Start: 09-03-2023 set screw FDA Start: 09-03-2023 set screw FDA Start: 09-03-2023 set screw FDA Start: 09-03-2023 [id number] FDA Start: 09-03-2023 6x45 viper prime screw FDA Start: 09-03-2023 [id number] FDA Start: 09-03-2023 6x45 viper prime screw FDA Start: 09-03-2023 6x45 viper prime screw FDA Start: 09-03-2023 6x45 viper prime screw FDA Start: 09-03-2023 7x45mm viper tu me screw FDA Start: 09-03-2023 7x45mm viper tu me screw FDA Start: 09-03-2023 7x50 viper prime screw FDA Start: 09-03-2023 Shell Trident 50 mm D Hemisphere Acetabular Multihole Hip - [id number] Start: 11-06-2017 Liner 36mm 0d D X3 3.9mm Acetabular Hip - [id number] Start: 11-06-2017 Liner 36mm 0d D X3 3.9mm Acetabular Hip - [id number] Start: 11-06-2017 Stem Accolade 13 0d 2 35mm Offset Tmzf 115mm 30mm Femoral Cementless Neck - [id number] Start: 11-06-2017 Head V40 36mm +2 .5mm Offset Taper Biolox Delta Femoral Hip - [id number] Start: 11-06-2017 FDA Start: 09-03-2023 FDA Start: 09-03-2023 FDA Start: 09-03-2023 FDA Start: 09-03-2023 FDA Start: 09-03-2023 FDA Start: 09-03-2023 FDA Start: 09-03-2023 FDA Start: 09-03-2023 FDA Start: 09-03-2023 FDA Start: 09-03-2023 FDA Start: 09-03-2023 FDA Start: 09-03-2023 FDA Start: 09-03-2023 FDA Start: 09-03-2023 FDA Start: 09-03-2023 FDA Start: 09-03-2023 FDA Start: 09-03-2023 FDA Start: 09-03-2023 FDA Start: 09-03-2023 FDA Start: 09-03-2023 FDA Start: 09-03-2023 FDA Start: 09-03-2023 FDA Start: 09-03-2023 FDA Start: 09-03-2023 FDA Start: 09-03-2023 FDA Start: 09-03-2023 FDA Start: 09-03-2023 FDA Start: 09-03-2023 120mm viper mark FDA Start: 09-03-2023 7x50 viper prime screw FDA Start: 09-03-2023 BONE,CRUSHED CANCELLOUS 15CC FDA Start: 09-03-2023 BONE,CRUSHED CANCELLOUS 15CC FDA Start: 09-03-2023 BONE,CRUSHED CANCELLOUS 15CC FDA Start: 09-03-2023 BONE,CRUSHED CANCELLOUS 15CC FDA Start: 09-03-2023 BONE,CRUSHED CANCELLOUS 15CC FDA Start: 09-03-2023 BONE,CRUSHED CANCELLOUS 15CC FDA Start: 09-03-2023 BONE,CRUSHED CANCELLOUS 15CC FDA Start: 09-03-2023 BONE,CRUSHED CANCELLOUS 15CC FDA Start: 09-03-2023 COUGAR LS CAGE FDA Start: 09-03-2023 120mm viper mark FDA Start: 09-03-2023 PASTE,BONE DBX 5CC FDA Start: 09-03-2023 set screw FDA Start: 09-03-2023 set screw FDA Start: 09-03-2023 set screw FDA Start: 09-03-2023 set screw FDA Start: 09-03-2023 set screw FDA Start: 09-03-2023 set screw FDA Start: 09-03-2023 set screw FDA Start: 09-03-2023 set screw FDA Start: 09-03-2023 6x45 viper prime screw FDA Start: 09-03-2023 6x45 viper prime screw FDA Start: 09-03-2023 6x45 viper prime screw FDA Start: 09-03-2023 6x45 viper prime screw FDA Start: 09-03-2023 7x45mm viper tu me screw FDA Start: 09-03-2023 7x45mm viper tu me screw FDA Start: 09-03-2023 7x50 viper prime screw FDA Start: 09-03-2023 120mm viper mark FDA Start: 09-03-2023 7x50 viper prime screw FDA Start: 09-03-2023 BONE,CRUSHED CANCELLOUS 15CC FDA Start: 09-03-2023 BONE,CRUSHED CANCELLOUS 15CC FDA Start: 09-03-2023 BONE,CRUSHED CANCELLOUS 15CC FDA Start: 09-03-2023 BONE,CRUSHED CANCELLOUS 15CC FDA Start: 09-03-2023 BONE,CRUSHED CANCELLOUS 15CC FDA Start: 09-03-2023 BONE,CRUSHED CANCELLOUS 15CC FDA Start: 09-03-2023 BONE,CRUSHED CANCELLOUS 15CC FDA Start: 09-03-2023 BONE,CRUSHED CANCELLOUS 15CC FDA Start: 09-03-2023 COUGAR LS CAGE FDA Start: 09-03-2023 120mm viper mark FDA Start: 09-03-2023 PASTE,BONE DBX 5CC FDA Start: 09-03-2023 set screw FDA Start: 09-03-2023 set screw FDA Start: 09-03-2023 set screw FDA Start: 09-03-2023 set screw FDA Start: 09-03-2023 set screw FDA Start: 09-03-2023 set screw FDA Start: 09-03-2023 set screw FDA Start: 09-03-2023 set screw FDA Start: 09-03-2023 6x45 viper prime screw FDA Start: 09-03-2023 6x45 viper prime screw FDA Start: 09-03-2023 6x45 viper prime screw FDA Start: 09-03-2023 6x45 viper prime screw FDA Start: 09-03-2023 7x45mm viper tu me screw FDA Start: 09-03-2023 7x45mm viper tu me screw FDA Start: 09-03-2023 7x50 viper prime screw FDA Start: 09-03-2023 120mm viper mark FDA Start: 09-03-2023 7x50 viper prime screw FDA Start: 09-03-2023 BONE,CRUSHED CANCELLOUS 15CC FDA Start: 09-03-2023 BONE,CRUSHED CANCELLOUS 15CC FDA Start: 09-03-2023 BONE,CRUSHED CANCELLOUS 15CC FDA Start: 09-03-2023 BONE,CRUSHED CANCELLOUS 15CC FDA Start: 09-03-2023 BONE,CRUSHED CANCELLOUS 15CC FDA Start: 09-03-2023 BONE,CRUSHED CANCELLOUS 15CC FDA Start: 09-03-2023 BONE,CRUSHED CANCELLOUS 15CC FDA Start: 09-03-2023 BONE,CRUSHED CANCELLOUS 15CC FDA Start: 09-03-2023 COUGAR LS CAGE FDA Start: 09-03-2023 120mm viper mark FDA Start: 09-03-2023 PASTE,BONE DBX 5CC FDA Start: 09-03-2023 set screw FDA Start: 09-03-2023 set screw FDA Start: 09-03-2023 set screw FDA Start: 09-03-2023 set screw FDA Start: 09-03-2023 set screw FDA Start: 09-03-2023 set screw FDA Start: 09-03-2023 set screw FDA Start: 09-03-2023 set screw FDA Start: 09-03-2023 6x45 viper prime screw FDA Start: 09-03-2023 6x45 viper prime screw FDA Start: 09-03-2023 6x45 viper prime screw FDA Start: 09-03-2023 6x45 viper prime screw FDA Start: 09-03-2023 7x45mm viper tu me screw FDA Start: 09-03-2023 7x45mm viper tu me screw FDA Start: 09-03-2023 7x50 viper prime screw FDA Start: 09-03-2023 120mm viper mark FDA Start: 09-03-2023 7x50 viper prime screw FDA Start: 09-03-2023 BONE,CRUSHED CANCELLOUS 15CC FDA Start: 09-03-2023 BONE,CRUSHED CANCELLOUS 15CC FDA Start: 09-03-2023 BONE,CRUSHED CANCELLOUS 15CC FDA Start: 09-03-2023 BONE,CRUSHED CANCELLOUS 15CC FDA Start: 09-03-2023 BONE,CRUSHED CANCELLOUS 15CC FDA Start: 09-03-2023 BONE,CRUSHED CANCELLOUS 15CC FDA Start: 09-03-2023 BONE,CRUSHED CANCELLOUS 15CC FDA Start: 09-03-2023 BONE,CRUSHED CANCELLOUS 15CC FDA Start: 09-03-2023 COUGAR LS CAGE FDA Start: 09-03-2023 120mm viper mark FDA Start: 09-03-2023 PASTE,BONE DBX 5CC FDA Start: 09-03-2023 set screw FDA Start: 09-03-2023 set screw FDA Start: 09-03-2023 set screw FDA Start: 09-03-2023 set screw FDA Start: 09-03-2023 set screw FDA Start: 09-03-2023 set screw FDA Start: 09-03-2023 set screw FDA Start: 09-03-2023 set screw FDA Start: 09-03-2023 6x45 viper prime screw FDA Start: 09-03-2023 6x45 viper prime screw FDA Start: 09-03-2023 6x45 viper prime screw FDA Start: 09-03-2023 6x45 viper prime screw FDA Start: 09-03-2023 7x45mm viper tu me screw FDA Start: 09-03-2023 7x45mm viper tu me screw FDA Start: 09-03-2023 7x50 viper prime screw FDA Start: 09-03-2023 FDA Start: 09-03-2023 FDA Start: 09-03-2023 FDA Start: 09-03-2023 FDA Start: 09-03-2023 FDA Start: 09-03-2023 FDA Start: 09-03-2023 FDA Start: 09-03-2023 FDA Start: 09-03-2023 FDA Start: 09-03-2023 FDA Start: 09-03-2023 FDA Start: 09-03-2023 FDA Start: 09-03-2023 FDA Start: 09-03-2023 FDA Start: 09-03-2023 FDA Start: 09-03-2023 FDA Start: 09-03-2023 FDA Start: 09-03-2023 FDA Start: 09-03-2023 FDA Start: 09-03-2023 FDA Start: 09-03-2023 FDA Start: 09-03-2023 FDA Start: 09-03-2023 FDA Start: 09-03-2023 FDA Start: 09-03-2023 FDA Start: 09-03-2023 FDA Start: 09-03-2023 FDA Start: 09-03-2023 FDA Start: 09-03-2023 Trident X3 Polyethylene Insert 0deg 40mm Sz [id number] Start: 12-04-2023 Shell Acetabular 52mm Hip Multihole Tritanium Trident Ii E Sterile - [id number] Start: 12-04-2023 Sleeve V40 +0mm Offset [place] Taper Titanium Adapter Hip - [id number] Start: 12-04-2023 Head 40mm Univer lester Biolox Delta Tritanium Femoral Hip - [id number] Start: 12-04-2023 Stem Accolade Ii 3 127d Femoral - [id number] Start: 12-04-2023 Screw Trident Ii 6.5mm 15mm Bone Low Profile Hexagonal Sterile - [id number] Start: 12-04-2023 120mm viper mark FDA Start: 09-03-2023 7x50 viper prime screw FDA Start: 09-03-2023 BONE,CRUSHED CANCELLOUS 15CC FDA Start: 09-03-2023 BONE,CRUSHED CANCELLOUS 15CC FDA Start: 09-03-2023 BONE,CRUSHED CANCELLOUS 15CC FDA Start: 09-03-2023 BONE,CRUSHED CANCELLOUS 15CC FDA Start: 09-03-2023 BONE,CRUSHED CANCELLOUS 15CC FDA Start: 09-03-2023 BONE,CRUSHED CANCELLOUS 15CC FDA Start: 09-03-2023 BONE,CRUSHED CANCELLOUS 15CC FDA Start: 09-03-2023 BONE,CRUSHED CANCELLOUS 15CC FDA Start: 09-03-2023 COUGAR LS CAGE FDA Start: 09-03-2023 120mm viper mark FDA Start: 09-03-2023 PASTE,BONE DBX 5CC FDA Start: 09-03-2023 set screw FDA Start: 09-03-2023 set screw FDA Start: 09-03-2023 set screw FDA Start: 09-03-2023 set screw FDA Start: 09-03-2023 set screw FDA Start: 09-03-2023 set screw FDA Start: 09-03-2023 set screw FDA Start: 09-03-2023 set screw FDA Start: 09-03-2023 6x45 viper prime screw FDA Start: 09-03-2023 6x45 viper prime screw FDA Start: 09-03-2023 6x45 viper prime screw FDA Start: 09-03-2023 6x45 viper prime screw FDA Start: 09-03-2023 7x45mm viper tu me screw FDA Start: 09-03-2023 7x45mm viper tu me screw FDA Start: 09-03-2023 7x50 viper prime screw FDA Start: 09-03-2023 120mm viper mark FDA Start: 09-03-2023 7x50 viper prime screw FDA Start: 09-03-2023 BONE,CRUSHED CANCELLOUS 15CC FDA Start: 09-03-2023 BONE,CRUSHED CANCELLOUS 15CC FDA Start: 09-03-2023 BONE,CRUSHED CANCELLOUS 15CC FDA Start: 09-03-2023 BONE,CRUSHED CANCELLOUS 15CC FDA Start: 09-03-2023 BONE,CRUSHED CANCELLOUS 15CC FDA Start: 09-03-2023 BONE,CRUSHED CANCELLOUS 15CC FDA Start: 09-03-2023 BONE,CRUSHED CANCELLOUS 15CC FDA Start: 09-03-2023 BONE,CRUSHED CANCELLOUS 15CC FDA Start: 09-03-2023 COUGAR LS CAGE FDA Start: 09-03-2023 120mm viper mark FDA Start: 09-03-2023 PASTE,BONE DBX 5CC FDA Start: 09-03-2023 set screw FDA Start: 09-03-2023 set screw FDA Start: 09-03-2023 set screw FDA Start: 09-03-2023 set screw FDA Start: 09-03-2023 set screw FDA Start: 09-03-2023 set screw FDA Start: 09-03-2023 set screw FDA Start: 09-03-2023 set screw FDA Start: 09-03-2023 6x45 viper prime screw FDA Start: 09-03-2023 6x45 viper prime screw FDA Start: 09-03-2023 6x45 viper prime screw FDA Start: 09-03-2023 6x45 viper prime screw FDA Start: 09-03-2023 7x45mm viper tu me screw FDA Start: 09-03-2023 7x45mm viper tu me screw FDA Start: 09-03-2023 7x50 viper prime screw FDA Start: 09-03-2023 120mm viper mark FDA Start: 09-03-2023 7x50 viper prime screw FDA Start: 09-03-2023 BONE,CRUSHED CANCELLOUS 15CC FDA Start: 09-03-2023 BONE,CRUSHED CANCELLOUS 15CC FDA Start: 09-03-2023 BONE,CRUSHED CANCELLOUS 15CC FDA Start: 09-03-2023 BONE,CRUSHED CANCELLOUS 15CC FDA Start: 09-03-2023 BONE,CRUSHED CANCELLOUS 15CC FDA Start: 09-03-2023 BONE,CRUSHED CANCELLOUS 15CC FDA Start: 09-03-2023 BONE,CRUSHED CANCELLOUS 15CC FDA Start: 09-03-2023 BONE,CRUSHED CANCELLOUS 15CC FDA Start: 09-03-2023 COUGAR LS CAGE FDA Start: 09-03-2023 120mm viper mark FDA Start: 09-03-2023 PASTE,BONE DBX 5CC FDA Start: 09-03-2023 set screw FDA Start: 09-03-2023 set screw FDA Start: 09-03-2023 set screw FDA Start: 09-03-2023 set screw FDA Start: 09-03-2023 set screw FDA Start: 09-03-2023 set screw FDA Start: 09-03-2023 set screw FDA Start: 09-03-2023 set screw FDA Start: 09-03-2023 6x45 viper prime screw FDA Start: 09-03-2023 6x45 viper prime screw FDA Start: 09-03-2023 6x45 viper prime screw FDA Start: 09-03-2023 6x45 viper prime screw FDA Start: 09-03-2023 7x45mm viper tu me screw FDA Start: 09-03-2023 7x45mm viper tu me screw FDA Start: 09-03-2023 7x50 viper prime screw FDA Start: 09-03-2023 120mm viper mark FDA Start: 09-03-2023 7x50 viper prime screw FDA Start: 09-03-2023 BONE,CRUSHED CANCELLOUS 15CC FDA Start: 09-03-2023 BONE,CRUSHED CANCELLOUS 15CC FDA Start: 09-03-2023 BONE,CRUSHED CANCELLOUS 15CC FDA Start: 09-03-2023 BONE,CRUSHED CANCELLOUS 15CC FDA Start: 09-03-2023 BONE,CRUSHED CANCELLOUS 15CC FDA Start: 09-03-2023 BONE,CRUSHED CANCELLOUS 15CC FDA Start: 09-03-2023 BONE,CRUSHED CANCELLOUS 15CC FDA Start: 09-03-2023 BONE,CRUSHED CANCELLOUS 15CC FDA Start: 09-03-2023 COUGAR LS CAGE FDA Start: 09-03-2023 120mm viper mark FDA Start: 09-03-2023 PASTE,BONE DBX 5CC FDA Start: 09-03-2023 set screw FDA Start: 09-03-2023 set screw FDA Start: 09-03-2023 set screw FDA Start: 09-03-2023 set screw FDA Start: 09-03-2023 set screw FDA Start: 09-03-2023 set screw FDA Start: 09-03-2023 set screw FDA Start: 09-03-2023 set screw FDA Start: 09-03-2023 6x45 viper prime screw FDA Start: 09-03-2023 6x45 viper prime screw FDA Start: 09-03-2023 6x45 viper prime screw FDA Start: 09-03-2023 6x45 viper prime screw FDA Start: 09-03-2023 7x45mm viper tu me screw FDA Start: 09-03-2023 7x45mm viper tu me screw FDA Start: 09-03-2023 7x50 viper prime screw FDA Start: 09-03-2023 120mm viper mark FDA Start: 09-03-2023 7x50 viper prime screw FDA Start: 09-03-2023 BONE,CRUSHED CANCELLOUS 15CC FDA Start: 09-03-2023 BONE,CRUSHED CANCELLOUS 15CC FDA Start: 09-03-2023 BONE,CRUSHED CANCELLOUS 15CC FDA Start: 09-03-2023 BONE,CRUSHED CANCELLOUS 15CC FDA Start: 09-03-2023 BONE,CRUSHED CANCELLOUS 15CC FDA Start: 09-03-2023 BONE,CRUSHED CANCELLOUS 15CC FDA Start: 09-03-2023 BONE,CRUSHED CANCELLOUS 15CC FDA Start: 09-03-2023 BONE,CRUSHED CANCELLOUS 15CC FDA Start: 09-03-2023 COUGAR LS CAGE FDA Start: 09-03-2023 120mm viper mark FDA Start: 09-03-2023 PASTE,BONE DBX 5CC FDA Start: 09-03-2023 set screw FDA Start: 09-03-2023 set screw FDA Start: 09-03-2023 set screw FDA Start: 09-03-2023 set screw FDA Start: 09-03-2023 set screw FDA Start: 09-03-2023 set screw FDA Start: 09-03-2023 set screw FDA Start: 09-03-2023 set screw FDA Start: 09-03-2023 6x45 viper prime screw FDA Start: 09-03-2023 6x45 viper prime screw FDA Start: 09-03-2023 6x45 viper prime screw FDA Start: 09-03-2023 6x45 viper prime screw FDA Start: 09-03-2023 7x45mm viper tu me screw FDA Start: 09-03-2023 7x45mm viper tu me screw FDA Start: 09-03-2023 7x50 viper prime screw FDA Start: 09-03-2023 Goals Date Patient Goal Desired Activity /State Functional Status Date Assessment Result Facility 12-21-2023 Functional status Independent [facility] Work Phone: 12-20-2023 Functional status Ambulates;Up ad curtis [facility] Work Phone: 12-07-2023 Are you deaf, or do you have serious difficulty hearing No 12/07/2023 6:57 PM Melony Gold RN No [facility] 12-07-2023 Are you blind, or do you have serious difficulty seeing, even when wearing glasses No 12/07/2023 6:57 PM Melony Gold RN No [facility] 12-07-2023 Do you have serious difficulty walking or climbing stairs No 12/07/2023 6:57 PM Melony Gold RN No [facility] 12-07-2023 Do you have difficul ty dressing or bathing No 12/07/2023 6:57 PM Melony Gold, MARIO No [facility] 12-07-2023 Because of a physica l, mental, or emotional condition, do you have difficulty doing errands alone such as visiting a physician's office or shopping No 12/07/2023 6:57 PM Melony Gold RN No [facility] 09-27-2023 Functional status Chair [facility] Work Phone: 09-25-2023 Functional status Bedrest [facility] Work Phone: 09-24-2023 Functional status Independent [facility] Work Phone: 09-16-2023 Functional status Patient Activity Chair [facility] Work Phone: 09-15-2023 Functional status With Assist of 1 [facility] Work Phone: 09-12-2023 Functional status Chair [facility] Work Phone: NEGATED: Highlighted row Functional performance Functional status health issues are not documented Disease [facility] Work Phone: Mental Status Date Assessment Result Facility 12-21-2023 Cognitive function Voice/Name;To uch/Kamar ing [facility] Work Phone: 12-19-2023 Cognitive function Appropriate;C ooperati ve [facility] Work Phone: 12-07-2023 Because of a physical, mental, or emotional condition, do you have serious difficulty concentrating, remembering, or making decisions No 12/07/2023 6:57 PM Melony Gold RN No [facility] 09-27-2023 Cognitive function Voice/Name [facility] Work Phone: 09-25-2023 Cognitive function Voice/Name [facility] Work Phone: 09-24-2023 Cognitive function Voice/Name [facility] Work Phone: 09-15-2023 Cognitive function Voice/Name [facility] Work Phone: 09-12-2023 Cognitive function Voice/Name [facility] Work Phone: 09-12-2023 Cognitive function Appropriate;C ooperati ve;Restless;Fatigued; Talkative [facility] Work Phone: 12-30-2021 Cognitive function Voice/Name [facility] Work Phone: NEGATED: Highlighted row Cognitive function [Interpretation] Cognitive status health issues are not documented Disease [facility] Work Phone: Clinical Notes 11-06-2017 to 06-12-2025 Patient Instructions Note Date & Type Note Facility 06-12-2025 Note HNO ID: [id number] Author: PERCY VARGAS LISW Service: ? Author Type: Reel And Rewinder Operator Type: Progress Notes Filed: 06/12/2025 16:08 Note Text: GENERAL PSYCHOLOGY Session #: 98 (session count starts after PSYL NEW EVAL visit) Visit Type:The patient consented to a virtual visit and their location was confirmed. SUBJECTIVE: I have communicated my name and active licensure. The patient's identity and physical location were verified at the time of this visit. Either the patient or their legal outbound telemarketing representative has been informed of the risks and benefits of -- and alternatives to -- treatment through a remote evaluation and consents to proceed with the evaluation remotely. PATIENT DATA: Generalized Anxiety Disorder Scale (JET-7) 05/06/2025 05/21/2025 06/11/2025 JET - 7 SCORES Score 8 8 8 (0-4) minimal anxiety, (5-9) mild anxiety, (10-14) moderate anxiety, (15-21) severe anxiety Patient Health Questionnaire (PHQ-9) 05/06/2025 05/21/2025 06/11/2025 PHQ-9 Score 11 10 10 (0-4) minimal depression, (5-9) mild depression, (10-14) moderate depression, (15-19) moderately severe depression, (20-27) severe depression OBJECTIVE: Supportive therapy Mental Status Exam: General/Sensorium: Alert and AND interactive - Appearance: Appears stated age - Eye Contact: Appropriate eye [...] Patient worked on processing through her emotional symptoms. Patient worked on addressing some current family related problems DIAGNOSIS: PRIMARY: 1: Major depression recurrent moderate Other: None PROVISIONAL: None TREATMENT MODALITIES: Cognitive Behavioral Therapy to self monitoring PROGRESS TO DATE: [facility] Progress: Progress Short Term Condition: Regressed GOALS/OBJECTIVES/INTERVENTIONS: Patient to reduce symptoms of depression Patient to improve sleep hygiene Patient to improve self-care Patient to improve conflict resolution skills Patient to improve use of coping mechanisms Approximately 45 minutes were spent with the patient doing therapy. WILLOW Adamson [facility] 05-22-2025 Note HNO ID: [id number] Author: PERCY VARGAS LISW Service: ? Author Type: Reel And Rewinder Operator Type: Progress Notes Filed: 05/22/2025 13:52 Note Text: GENERAL PSYCHOLOGY Session #: 97 (session count starts after PSYL NEW EVAL visit) Visit Type:The patient consented to a virtual visit and their location was confirmed. SUBJECTIVE: I have communicated my name and active licensure. The patient's identity and physical location were verified at the time of this visit. Either the patient or their legal outbound telemarketing representative has been informed of the risks and benefits of -- and alternatives to -- treatment through a remote evaluation and consents to proceed with the evaluation remotely. PATIENT DATA: Generalized Anxiety Disorder Scale (JET-7) 04/09/2025 05/06/2025 05/21/2025 JET - 7 SCORES Score 9 8 8 (0-4) minimal anxiety, (5-9) mild anxiety, (10-14) moderate anxiety, (15-21) severe anxiety Patient Health Questionnaire (PHQ-9) 04/09/2025 05/06/2025 05/21/2025 PHQ-9 Score 9 11 10 (0-4) minimal depression, (5-9) mild depression, (10-14) moderate depression, (15-19) moderately severe depression, (20-27) severe depression OBJECTIVE: Supportive therapy Mental Status Exam: General/Sensorium: Alert and AND interactive - Appearance: Appears stated age - Eye Contact: Appropriate eye [...] Patient worked on processing through her emotional symptoms. Patient worked on addressing forgiveness of her past hurts. DIAGNOSIS: PRIMARY: 1: Major depression recurrent moderate Other: None PROVISIONAL: None TREATMENT MODALITIES: Cognitive Behavioral Therapy to self monitoring PROGRESS TO DATE: [facility] Progress: Progress Short Term Condition: Regressed GOALS/OBJECTIVES/INTERVENTIONS: Patient to reduce symptoms of depression Patient to improve sleep hygiene Patient to improve self-care Patient to improve conflict resolution skills Patient to improve use of coping mechanisms Approximately 45 minutes were spent with the patient doing therapy. WILLOW Adamson [facility] 05-08-2025 Note HNO ID: [id number] Author: PERCY VARGAS LISW Service: ? Author Type: Reel And Rewinder Operator Type: Progress Notes Filed: 05/08/2025 13:14 Note Text: GENERAL PSYCHOLOGY Session #: 96 (session count starts after PSYL NEW EVAL visit) Visit Type:The patient consented to a virtual visit and their location was confirmed. SUBJECTIVE: I have communicated my name and active licensure. The patient's identity and physical location were verified at the time of this visit. Either the patient or their legal outbound telemarketing representative has been informed of the risks and benefits of -- and alternatives to -- treatment through a remote evaluation and consents to proceed with the evaluation remotely. PATIENT DATA: Generalized Anxiety Disorder Scale (JET-7) 03/26/2025 04/09/2025 05/06/2025 JET - 7 SCORES Score 8 9 8 (0-4) minimal anxiety, (5-9) mild anxiety, (10-14) moderate anxiety, (15-21) severe anxiety Patient Health Questionnaire (PHQ-9) 03/26/2025 04/09/2025 05/06/2025 PHQ-9 Score 9 9 11 (0-4) minimal depression, (5-9) mild depression, (10-14) moderate depression, (15-19) moderately severe depression, (20-27) severe depression OBJECTIVE: Supportive therapy Mental Status Exam: General/Sensorium: Alert and AND interactive - Appearance: Appears stated age - Eye Contact: Appropriate eye [...] Patient worked on processing through her emotional symptoms. Patient worked on addressing some family dynamic issues that negatively impacted her DIAGNOSIS: PRIMARY: 1: Major depression recurrent moderate Other: None PROVISIONAL: None TREATMENT MODALITIES: Cognitive Behavioral Therapy to self monitoring PROGRESS TO DATE: [facility] Progress: Progress Short Term Condition: Progress GOALS/OBJECTIVES/INTERVENTIONS: Patient to reduce symptoms of depression Patient to improve sleep hygiene Patient to improve self-care Patient to improve conflict resolution skills Patient to improve use of coping mechanisms Approximately 45 minutes were spent with the patient doing therapy. WILLOW Adamson [facility] 05-04-2025 Progress note [facility] 04-10-2025 Note HNO ID: [id number] Author: PERCY VARGAS LISW Service: ? Author Type: Reel And Rewinder Operator Type: Progress Notes Filed: 04/10/2025 10:57 Note Text: GENERAL PSYCHOLOGY Session #: 95 (session count starts after PSYL NEW EVAL visit) Visit Type:The patient consented to a virtual visit and their location was confirmed. SUBJECTIVE: I have communicated my name and active licensure. The patient's identity and physical location were verified at the time of this visit. Either the patient or their legal outbound telemarketing representative has been informed of the risks and benefits of -- and alternatives to -- treatment through a remote evaluation and consents to proceed with the evaluation remotely. PATIENT DATA: Generalized Anxiety Disorder Scale (JET-7) 03/11/2025 03/26/2025 04/09/2025 JET - 7 SCORES Score 8 8 9 (0-4) minimal anxiety, (5-9) mild anxiety, (10-14) moderate anxiety, (15-21) severe anxiety Patient Health Questionnaire (PHQ-9) 03/11/2025 03/26/2025 04/09/2025 PHQ-9 Score 8 9 9 (0-4) minimal depression, (5-9) mild depression, (10-14) moderate depression, (15-19) moderately severe depression, (20-27) severe depression OBJECTIVE: Supportive therapy Mental Status Exam: General/Sensorium: Alert and AND interactive - Appearance: Appears stated age - Eye Contact: Appropriate eye [...] Patient worked on processing through her emotional symptoms. Patient worked on addressing family related problem. DIAGNOSIS: PRIMARY: 1: Major depression recurrent moderate Other: None PROVISIONAL: None TREATMENT MODALITIES: Cognitive Behavioral Therapy to self monitoring PROGRESS TO DATE: [facility] Progress: Progress Short Term Condition: Progress GOALS/OBJECTIVES/INTERVENTIONS: Patient to reduce symptoms of depression Patient to improve sleep hygiene Patient to improve self-care Patient to improve conflict resolution skills Patient to improve use of coping mechanisms Approximately 45 minutes were spent with the patient doing therapy. WILLOW Adamson [facility] 03-27-2025 Note HNO ID: [id number] Author: PERCY VARGAS LISW Service: ? Author Type: Reel And Rewinder Operator Type: Progress Notes Filed: 03/27/2025 13:40 Note Text: GENERAL PSYCHOLOGY Session #: 94 (session count starts after PSYL NEW EVAL visit) Visit Type:The patient consented to a virtual visit and their location was confirmed. SUBJECTIVE: I have communicated my name and active licensure. The patient's identity and physical location were verified at the time of this visit. Either the patient or their legal outbound telemarketing representative has been informed of the risks and benefits of -- and alternatives to -- treatment through a remote evaluation and consents to proceed with the evaluation remotely. PATIENT DATA: Generalized Anxiety Disorder Scale (JET-7) 03/03/2025 03/11/2025 03/26/2025 JET - 7 SCORES Score 9 8 8 (0-4) minimal anxiety, (5-9) mild anxiety, (10-14) moderate anxiety, (15-21) severe anxiety Patient Health Questionnaire (PHQ-9) 03/03/2025 03/11/2025 03/26/2025 PHQ-9 Score 10 8 9 (0-4) minimal depression, (5-9) mild depression, (10-14) moderate depression, (15-19) moderately severe depression, (20-27) severe depression OBJECTIVE: Supportive therapy Mental Status Exam: General/Sensorium: Alert and AND interactive - Appearance: Appears stated age - Eye Contact: Appropriate eye [...] Patient worked on processing through her emotional symptoms. Patient addressed ways her to 50 level has increased DIAGNOSIS: PRIMARY: 1: Major depression recurrent moderate Other: None PROVISIONAL: None TREATMENT MODALITIES: Cognitive Behavioral Therapy to self monitoring PROGRESS TO DATE: [facility] Progress: Progress Short Term Condition: Progress GOALS/OBJECTIVES/INTERVENTIONS: Patient to reduce symptoms of depression Patient to improve sleep hygiene Patient to improve self-care Patient to improve conflict resolution skills Patient to improve use of coping mechanisms Approximately 45 minutes were spent with the patient doing therapy. WILLOW Adamson [facility] 03-15-2025 Instructions Dilia Angulo MD - 03/15/2025 11:17 PM EDT - Take Lamictal 100 mg by mouth twice daily; your new prescription has been sent to the pharmacy. - Continue Topamax at your current dose as before. - Use your triptan rescue medication for acute migraine relief as needed, limiting to no more than 9 doses per month. - Keep track of how often you have migraines and how severe they feel over the next month. - Contact the office in one month to report on your headache progress or sooner if your migraines worsen. documented in this encounter [facility] 03-13-2025 Note HNO ID: [id number] Author: PERCY VARGAS LISW Service: ? Author Type: Reel And Rewinder Operator Type: Progress Notes Filed: 03/13/2025 10:47 Note Text: Patient was a no-show for appointment-no charge [facility] 03-05-2025 Discharge summary Note Date/Time March 05, 2025 1:24 pm [facility] [facility] [place] [address] / REHABILITATION SERVICES DISCHARGE SUMMARY MR#: [id number] Acct: [id number] Name: RBUNO PATTERSON Rep #: [id number] : 1970 54 From: Jacinto Watson Referring Dr.: Dr. Mercy Jin MD Status: REG R Insurance: [facility] MEDICAID Discharge Summary D/C summary: It has been my pleasure to treat BRUNO PATTERSON referred by Dr. Mercy Jin MD, with the diagnosis of Back pain for a total of 18 visit(s). Discharge Date: 03/05/25 Please see the following information for a summary of their discharge status. Subjective Subjective: Pt. reports doing much better. Pt. have decreased pain after having a nerve block. Pt. reports having 2/10 pain current. Pt. is typically worse in the AMs. Pt. pleased with progress. Pain R side of lumbar spine: Pain Intensity (Out of 10): 2 Overall Improvement % Improvement: 80 Objective Objective/Function: GAIT: pt. has normal gait pattern. No major issues noted. ROM: Full ROM without issues. MMT: RLE: knee: ext 45.3#, flexion 23.8#, hip: flexion 33.5# LLE: knee: ext 43.8#, flexion 24.9#; hip: flexion 35.6# PT. is overall doing much better. Pt. is to complete all of her exercises on herown at this point in time. Pt. consents. She has met all goals Goals Goal 1:: LTG: pt. to be I with HEP. Goal Progress: Goal Met Goal 2:: STG: Pt. to sleep throughout the night without issues. Goal Progress: Goal Met Goal 3:: LTG: Pt. to have increased core and B hip strength by 10# throughout. Goal 4:: LTG: pt. to reports no radicular symptoms on her RLE. Goal Progress: Goal Met Goal 5:: LTG: Pt. to complete all ADLs without increase in back or leg pain. Goal Progress: Goal Met Plan Plan: Pt. to be DC from PT to HEP D/C Information d/c sentence: If there are questions or concerns regarding this patient's physical therapy, please feel free to call me at [phone]. Thank you for the referral of thispatient. Sincerely, Jacinto Kenney DPT Balance/Gait/Functional tests Balance/Special Test Scores Oswestry Low Back Score: 12 Improvement % Improvement: 80 <Electronically signed by Jacinto Kenney DPT> 03/05/25 1324 CC: Dr. Wandy Valdovinos MD; Dr. Mercy Jin MD ~ CLS Signed [facility] Work Phone: [phone]) 971-433407-24-2025 Discharge summary [facility] [address] [place] [address] [address] [place] [address] / REHABILITATION SERVICES DISCHARGE SUMMARY MR#: [id number] Acct: [id number] Name: BRUNO PATTERSON Rep #: [id number] : 1970 54 From: Jacinto CARBAJAL T Referring Dr.: Dr. Mercy Jin MD Status: REG RCR Insurance: [facility] [employer] MEDICAID Discharge Summary D/C summary: It has been my pleasure to treat BRUNO PATTERSON referred by Dr. Mercy Jin MD, with the diagnosis of Back pain for a total of 18 visit(s). Discharge Date: 03/05/25 Please see the following information for a summary of their discharge status. Subjective Subjective: Pt. reports doing much better. Pt. have decreased pain after having a nerve block. Pt. reports having 2/10 pain current. Pt. is typically worse in the AMs. Pt. pleased with progress. Pain R side of lumbar spine: Pain Intensity (Out of 10): 2 Overall Improvement % Improvement: 80 Objective Objective/Function: GAIT: pt. has normal gait pattern. No major issues noted. ROM: Full ROM without issues. MMT: RLE: knee: ext 45.3#, flexion 23.8#, hip: flexion 33.5# LLE: knee: ext 43.8#, flexion 24.9#; hip: flexion 35.6# PT. is overall doing much better. Pt. is to complete all of her exercises on herown at this point in time. Pt. consents. She has met all goals Goals Goal 1:: LTG: pt. to be I with HEP. Goal Progress: Goal Met Goal 2:: STG: Pt. to sleep throughout the night without issues. Goal Progress: Goal Met Goal 3:: LTG: Pt. to have increased core and B hip strength by 10# throughout. Goal 4:: LTG: pt. to reports no radicular symptoms on her RLE. Goal Progress: Goal Met Goal 5:: LTG: Pt. to complete all ADLs without increase in back or leg pain. Goal Progress: Goal Met Plan Plan: Pt. to be DC from PT to HEP D/C Information d/c sentence: If there are questions or concerns regarding this patient's physical therapy, please feel free to call me at [phone]. Thank you for the referral of thispatient. Sincerely, Jacinto Esteves Sipos, DPT Balance/Gait/Functional tests Balance/Special Test Scores Oswestry Low Back Score: 12 Improvement % Improvement: 80 03/05/25 1324 CC: Dr. Wandy Valdovinos MD; Dr. Mercy Jin MD ~ CLS Signed [facility]07-23-2025 NoteHNO ID: [id number] Author: PERCY VARGAS LISW Service: ? Author Type: Reel And Rewinder Operator Type: Progress Notes Filed: 03/04/2025 16:12 Note Text: GENERAL PSYCHOLOGY Session #: 93 (session count starts after PSYL NEW EVAL visit) Visit Type:The patient consented to a virtual visit and their location was confirmed. SUBJECTIVE: I have communicated my name and active licensure. The patient's identity and physical location were verified at the time of this visit. Either the patient or their legal outbound telemarketing representative has been informed of the risks and benefits of -- and alternatives to -- treatment through a remote evaluation and consents to proceed with the evaluation remotely. PATIENT DATA: Generalized Anxiety Disorder Scale (JET-7) 01/22/2025 02/05/2025 03/03/2025 JET - 7 SCORES Score 8 9 9 (0-4) minimal anxiety, (5-9) mild anxiety, (10-14) moderate anxiety, (15-21) severe anxiety Patient Health Questionnaire (PHQ-9) 01/22/2025 02/05/2025 03/03/2025 PHQ-9 Score 10 9 10 (0-4) minimal depression, (5-9) mild depression, (10-14) moderate depression, (15-19) moderately severe depression, (20-27) severe depression OBJECTIVE: Supportive therapy Mental Status Exam: General/Sensorium: Alert and AND interactive - Appearance: Appears stated age - Eye Contact: Appropriate eye [...] Patient worked on processing through her emotional symptoms. Patient worked on addressing some family related problems DIAGNOSIS: PRIMARY: 1: Major depression recurrent moderate Other: None PROVISIONAL: None TREATMENT MODALITIES: Cognitive Behavioral Therapy to self monitoring PROGRESS TO DATE: [facility] Progress: Progress Short Term Condition: Progress GOALS/OBJECTIVES/INTERVENTIONS: Patient to reduce symptoms of depression Patient to improve sleep hygiene Patient to improve self-care Patient to improve conflict resolution skills Patient to improve use of coping mechanisms Approximately 45 minutes were spent with the patient doing therapy. [facility] NoteHNO ID: [id number] Author: DILIA ANGULO MD Service: ? Author Type: Physician Type: Progress Notes Filed: 03/15/2025 23:18 Note Text: 02/23/2025 PROMIS Global Health Physical Health Summary Physical health: Good Everyday physical activity, ability: Moderately Fatigue: Moderate Pain level: 4 General health: Good Social activities/roles, ability: Good Physical Health T-Score 39.8 (Fair) Physical Health Percentile 15 PROMIS Global Health Mental Health Summary Quality of life: Good Mental health (mood,thinking): Good Social satisfaction: Good Emotional problems (anxious,depressed): Often Mental Health T-Score 41.1 (Good) Mental Health Percentile 19 PHQ-9 Score: (Mild Depression) PHQ-9 Self-Harm: JET-7 Score: (Mild Anxiety) NEURO-QOL Cognitive Function T-Score 48(Within Normal Limits) PROMIS Physical Function T-Score 35(Moderate Dysfunction) PROMIS Physical Function Percentile 7 PROMIS Pain Interference T-Score 59(Mild) PROMIS Pain Interference Percentile 18 Percentiles provide an indication of how a patient's score ranks in relation to the [place] general population. > 31st percentile is within normal limits or better *< 31st percentile is at least ? SD worse than population, which may be clinically relevant < 16th percentile is at least 1 SD worse than population and warrants attention 02/23/2025 Sleep Apnea Probability Snores loudly: Yes Tired, fatigued or sleepy in daytime: Yes Stops breathing or choking/gasping during sleep: No High blood pressure: No Sleep Apnea Probability Score: 30 (Sleep study not recommended) VIRTUAL VISIT PROGRESS NOTE This is a virtual visit using [employer] Video Visit. It required patient-provider interaction for the medical decision making as documented below. I have communicated my name and active licensure. The patient's identity and physical location were verified at the time of this visit. Either the patient or their legal outbound telemarketing representative has been informed of the risks and benefits of -- and alternatives to -- treatment through a remote evaluation and consents to proceed with the evaluation remotely. Bruno Patterson is a 54-year-old female with a history of migraines and Meniere's disease, presenting for follow-up. Bruno reports experiencing migraines for many years, which she attributes to hormonal fluctuations. She notes that she went almost eight months without menstruating, but her periods have recently resumed. She is currently experiencing migraines nearly every day and has not been able to use her prescribed triptan due to having more than 14 migraines per month. In April, she experienced a Meniere's disease flare-up, resulting in almost four months of intermittent vertigo accompanied by headaches. During April and May, she was bedridden, and in June and July, she refrained from driving. By August, the vertigo subsided, and she resumed driving locally. She is currently taking Topamax 100 mg twice daily and Lamictal daily. Since starting Lamictal, she reports that her migraines are less severe and less frequent, allowing her to function despite experiencing auras, which she describes as white worms. She does not endorse dizziness or drowsiness from her medications. HISTORY REVIEWED (electronic chart updated): PAST MEDICAL HISTORY Diagnosis Date Bulging lumbar disc and cervical DDD (degenerative disc disease), cervical GERD (gastroesophageal reflux disease) HLD (hyperlipidemia) Hypertension IBS (irritable bowel syndrome) Marijuana use 11/19/2023 Meniere disease Migraines Non-functioning tympanostomy tube 04/21/2013 Obese Otalgia of right ear 04/21/2013 Perforation of right tympanic membrane 07/07/2013 Rhinitis 04/21/2013 Sinusitis 04/21/2013 PAST SURGICAL HISTORY Procedure Laterality Date BACK SURGERY HX 08/2023 Spinal fusion COLONOSCOPY 11/10/2022 repeat in 10 years S SPINAL CORD STIMULATOR, back and neck TOTAL HIP REPLACEMENT Left FAMILY HISTORY Problem Relation Age of Onset Asthma Mother Hypertension Mother Heart disease Mother Diabetes Father Cancer Father Colon Heart disease Brother Anesthesia Problems No Family History Social History Tobacco Use Smoking status: Former Current packs/day: 0.00 Average packs/day: 0.8 packs/day for 25.0 years (18.8 ttl pk-yrs) Types: Cigarettes Start date: 1996 Quit date: 2021 Years since quittin.5 Smokeless tobacco: Never Vaping Use Vaping status: current everyday user Start date: 11/18/2021 Substances: Nicotine, THC, Nicotine daily, THC occasionally Substance Use Topics 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 topiramate (TOPAMAX) 100 mg tablet Take 1 tablet by mouth two times a day. potass (more content not included)...[facility]07-18-2025 History of Present illness Narrative* Dilia Angulo MD - 02/27/2025 4:17 PM EDT 02/23/2025 PROMIS Global Health Physical Health Summary Physical health: Good Everyday physical activity, ability: Moderately Fatigue: Moderate Pain level: 4 General health: Good Social activities/roles, ability: Good Physical Health T-Score 39.8 (Fair) Physical Health Percentile 15 PROMIS Global Health Mental Health Summary Quality of life: Good Mental health (mood,thinking): Good Social satisfaction: Good Emotional problems (anxious,depressed): Often Mental Health T-Score 41.1 (Good) Mental Health Percentile 19 PHQ-9 Score: (Mild Depression) PHQ-9 Self-Harm: JET-7 Score: (Mild Anxiety) NEURO-QOL Cognitive Function T-Score 48(Within Normal Limits) PROMIS Physical Function T-Score 35(Moderate Dysfunction) PROMIS Physical Function Percentile 7 PROMIS Pain Interference T-Score 59(Mild) PROMIS Pain Interference Percentile 18 Percentiles provide an indication of how a patient's score ranks in relation to the [place] general population. > 31st percentile is within normal limits or better *< 31st percentile is at least SD worse than population, which may be clinically relevant < 16th percentile is at least 1 SD worse than population and warrants attention 02/23/2025 Sleep Apnea Probability Snores loudly: Yes Tired, fatigued or sleepy in daytime: Yes Stops breathing or choking/gasping during sleep: No High blood pressure: No Sleep Apnea Probability Score: 30 (Sleep study not recommended) VIRTUAL VISIT PROGRESS NOTE This is a virtual visit using [employer] Video Visit. It required patient- provider interaction for the medical decision making as documented below. I have communicated my name and active licensure. The patient's identity and physical location wereverified at the time of this visit. Either the patient or their legal outbound telemarketing representative has been informed of the risks and benefits of -- and alternatives to -- treatment through a remote evaluation andconsents to proceed with the evaluation remotely. Bruno Patterson is a 54-year-old female with a history of migraines and Meniere's disease, presenting for follow-up. Bruno reports experiencing migraines for many years, which she attributes to hormonal fluctuations. She notes that she went almost eight months without menstruating, but her periods have recently resumed. She is currently experiencing migraines nearly every day and has not been able to use her prescribed triptan due to having more than 14 migraines per month. In April, she experienced a Meniere's disease flare-up, resulting in almost four months of intermittent vertigo accompanied by headaches. During April and May, she was bedridden, and in June and July, she refrained from driving. By August, the vertigo subsided, and she resumed driving locally. She is currently taking Topamax 100 mg twice daily and Lamictal daily. Since starting Lamictal, shereports that her migraines are less severe and less frequent, allowing her to function despite experiencing auras, which she describes as white worms. She does not endorse dizziness or drowsiness from her medications. HISTORY REVIEWED (electronic chart updated): PAST MEDICAL HISTORY Diagnosis Date Bulging lumbar disc and cervical DDD (degenerative disc disease), cervical GERD (gastroesophageal reflux disease) HLD (hyperlipidemia) Hypertension IBS (irritable bowel syndrome) Marijuana use 11/19/2023 Meniere disease Migraines Non-functioning tympanostomy tube 04/21/2013 Obese Otalgia of right ear 04/21/2013 Perforation of right tympanic membrane 07/07/2013 Rhinitis 04/21/2013 Sinusitis 04/21/2013 PAST SURGICAL HISTORY Procedure Laterality Date BACK SURGERY HX 08/2023 Spinal fusion COLONOSCOPY 11/10/2022 repeat in 10 years S SPINAL CORD STIMULATOR, back and neck TOTAL HIP REPLACEMENT Left FAMILY HISTORY Problem Relation Age of Onset Asthma Mother Hypertension Mother Heart disease Mother Diabetes Father Cancer Father Colon Heart disease Brother Anesthesia Problems No Family History Social History Tobacco Use Smoking status: Former Current packs/day: 0.00 Average packs/day: 0.8 packs/day for 25.0 years (18.8 ttl pk-yrs) Types: Cigarettes Start date: 1996 Quit date: 2021 Years since quittin.5 Smokeless tobacco: Never Vaping Use Vaping status: current everyday user Start date: 11/18/2021 Substances: Nicotine, THC, Nicotine daily, THC occasionally Substance Use Topics 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 topiramate (TOPAMAX) 100 mg tablet Take 1 tablet by mouth two times a day. potassium chloride ER (KLOR-CON) 20 mEq tablet Take 1 tablet by mouth three times a day. acetaminophen (TYLENOL) 500 mg tablet Take 2 tablets by mouth every 8 hours. ascorbic acid, vitamin C, (VITAMIN C) 500 mg tablet Take 1 tablet by mouth two times a day with meals for 25 doses. aspirin, enteric coated (ASPIRIN, ENTERIC COATED) 81 mg EC tablet Take 1 tablet by mouth two times a day for 28 days. traMADol (ULTRAM) 50 mg tablet Take 50 mg by mouth two times a day. buprenorphine (BUTRANS) 5 mcg/hour Apply 1 Patch as directed one time a week. tiZANidine HCl (ZANAFLEX) 4 mg capsule Take 4 mg by mouth at bedtime as needed. gabapentin (NEURONTIN) 600 mg tablet Take 600 mg by mouth two times a day. levothyroxine 88 mcg cap Take 88 mcg by mouth daily before breakfast. Cetirizine 10 mg cap Take 1 capsule by mouth once daily. fluticasone (FLONASE) 50 mcg/actuation nasal spray Use 1 [place] in each nostril as needed. rosuvastatin (CRESTOR) 5 mg tablet Take 10 mg by mouth once daily. dexAMETHasone 0.1 % ophthalmic solution 3 drops 3 times a day to affected ear as needed vertigo (Patient taking differently: as needed. 3 drops 3 times a day to affected ear as needed vertigo) triamterene-hydroCHLOROthiazide (MAXZIDE-25) 37.5-25 mg per tablet Take 1 tablet by mouth once daily. venlafaxine (EFFEXOR) 37.5 mg tablet Take 75 mg by mouth once daily. aMILoride (MIDAMOR) 5 mg tablet Take 5 mg by mouth once daily. ondansetron orally disintegrating (ZOFRAN ODT) 4 mg disintegrating tablet Take 1 tablet by mouth every 8 hours as needed for Nausea/Vomiting. meclizine (ANTIVERT) 12.5 mg tab Take 12.5 mg by mouth as needed. Omeprazole 40 mg capsule Take 40 mg by mouth once daily. MULTIVITAMIN TAB Take 1 tablet by mouth once daily. No current facility-administered medications for this visit. ALLERGIES Allergen Reactions Citric Acid Other: See Comments Wears down lining of the mouth. Fruit and tomatoes Cymbalta [Duloxetin* Other: See Comments Weight gain Penicillins Hives Shellfish Derived Vomiting REVIEW OF SYSTEMS: All other ROS: negative PHYSICAL EXAMINATION: VIDEO EXAM: (if completed, performed via video enabled technology) GENERAL: alert and appropriate, in no distress and well-hydrated, well nourished ASSESSMENT: (G43.709) Chronic migraine without aura without status migrainosus, not intractable (H81.09) Meniere's disease, unspecified laterality (N95.9) Menopausal and perimenopausal disorder PLAN: 1. Chronic migraine without aura without status migrainosus, not intractable (G43.709) - Experiencing daily migraines; current regimen includes Topamax 100 mg BID and Lamictal. - Increased Lamictal dosage to 100 mg BID. - Advised use of triptan up to 9 times per month. - Prescriptions sent to [facility] with a 3-month supply if insurance permits. - Follow-up in one month to assess headache frequency and severity. 2. Meniere's disease, unspecified laterality (H81.09) - Recent flare-up in April resulted in four months of vertigo and headaches; symptoms resolved by August. - No current vertigo reported. 3. Menopausal and perimenopausal disorder (N95.9) - Hormonal fluctuations noted; recent resumption of menstrual periods after an 8-month hiatus. There are no Patient Instructions on file for this visit. I spent a total of 55 minutes on the date of the service which included preparing to see the patient, [id number] patient care, completing clinical documentation, obtaining and/or reviewing separately obtained history, and counseling and educating the patient/family/caregiver Dilia Angulo MD [facility] Telephone encounter Note * Telephone Encounter - Lisandra Michael RN - 02/16/2025 10:53 AM EDT Patient phones requesting refills as follows: Requested Prescriptions Pending Prescriptions Disp Refills lamoTRIgine (LAMICTAL) 100 mg tablet 30 tablet 0 Sig: Take 1 tablet by mouth once daily. Last prescribed 12/31/24 Last OV 03/27/23 Next OV 02/27/25 Order pended for 15 day supply Please review and advise. Lisandra Michael RN [facility]07-07-2025 Miscellaneous Notes* Telephone Encounter - Lisandra Michael RN - 02/16/2025 10:53 AM EDT Patient phones requesting refills as follows: Requested Prescriptions Pending Prescriptions Disp Refills lamoTRIgine (LAMICTAL) 100 mg tablet 30 tablet 0 Sig: Take 1 tablet by mouth once daily. Last prescribed 12/31/24 Last OV 03/27/23 Next OV 02/27/25 Order pended for 15 day supply Please review and advise. Lisandra Michael RN documented [facility]25 NoteHNO ID: [id number] Author: PERCY VARGAS LISW Service: ? Author Type: Reel And Rewinder Operator Type: Progress Notes Filed: 02/06/2025 14:30 Note Text: GENERAL PSYCHOLOGY Session #: 92 (session count starts after [facility] visit) Visit Type:The patient consented to a virtual visit and their location was confirmed. SUBJECTIVE: I have communicated my name and active licensure. The patient's identity and physical location were verified at the time of this visit. Either the patient or their legal outbound telemarketing representative has been informed of the risks and benefits of -- and alternatives to -- treatment through a remote evaluation and consents to proceed with the evaluation remotely. PATIENT DATA: Generalized Anxiety Disorder Scale (JET-7) 01/08/2025 01/22/2025 02/05/2025 JET - 7 SCORES Score 8 8 9 (0-4) minimal anxiety, (5-9) mild anxiety, (10-14) moderate anxiety, (15-21) severe anxiety Patient Health Questionnaire (PHQ-9) 01/08/2025 01/22/2025 02/05/2025 PHQ-9 Score 9 10 9 (0-4) minimal depression, (5-9) mild depression, (10-14) moderate depression, (15-19) moderately severe depression, (20-27) severe depression OBJECTIVE: Supportive therapy Mental Status Exam: General/Sensorium: Alert and AND interactive - Appearance: Appears stated age - Eye Contact: Appropriate eye [...] Patient worked on processing through her emotional symptoms. Patient worked on addressing some family related problems. DIAGNOSIS: PRIMARY: 1: Major depression recurrent moderate Other: None PROVISIONAL: None TREATMENT MODALITIES: Cognitive Behavioral Therapy to self monitoring PROGRESS TO DATE: [facility] Progress: Progress Short Term Condition: Regressed GOALS/OBJECTIVES/INTERVENTIONS: Patient to reduce symptoms of depression Patient to improve sleep hygiene Patient to improve self-care Patient to improve conflict resolution skills Patient to improve use of coping mechanisms Approximately 45 minutes were spent with the patient doing therapy. [facility]06-13-[facility] NoteHNO ID: [id number] Author: PERCY VARGAS LISW Service: ? Author Type: Reel And Rewinder Operator Type: Progress Notes Filed: 01/23/2025 15:57 Note Text: GENERAL PSYCHOLOGY Session #: 91 (session count starts after PSYL NEW EVAL visit) Visit Type:The patient consented to a virtual visit and their location was confirmed. SUBJECTIVE: I have communicated my name and active licensure. The patient's identity and physical location were verified at the time of this visit. Either the patient or their legal outbound telemarketing representative has been informed of the risks and benefits of -- and alternatives to -- treatment through a remote evaluation and consents to proceed with the evaluation remotely. PATIENT DATA: Generalized Anxiety Disorder Scale (JET-7) 12/25/2024 01/08/2025 01/22/2025 JET - 7 SCORES Score 8 8 8 (0-4) minimal anxiety, (5-9) mild anxiety, (10-14) moderate anxiety, (15-21) severe anxiety Patient Health Questionnaire (PHQ-9) 12/25/2024 01/08/2025 01/22/2025 PHQ-9 Score 10 9 10 (0-4) minimal depression, (5-9) mild depression, (10-14) moderate depression, (15-19) moderately severe depression, (20-27) severe depression OBJECTIVE: Supportive therapy Mental Status Exam: General/Sensorium: Alert and AND interactive - Appearance: Appears stated age - Eye Contact: Appropriate eye [...] her emotional symptoms along with addressing some current life stressors DIAGNOSIS: PRIMARY: 1: Major depression recurrent moderate Other: None PROVISIONAL: None TREATMENT MODALITIES: Cognitive Behavioral Therapy to self monitoring PROGRESS TO DATE: [facility] Progress: Progress Short Term Condition: Progress GOALS/OBJECTIVES/INTERVENTIONS: Patient to reduce symptoms of depression Patient to improve sleep hygiene Patient to improve self-care Patient to improve conflict resolution skills Patient to improve use of coping mechanisms Approximately 45 minutes were spent with the patient doing therapy. [facility]05-30-2025 NoteHNO ID: [id number] Author: PERCY VARGAS LISW Service: ? Author Type: Reel And Rewinder Operator Type: Progress Notes Filed: 01/09/2025 12:49 Note Text: GENERAL PSYCHOLOGY Session #: 90 (session count starts after PSYL NEW EVAL visit) Visit Type:The patient consented to a virtual visit and their location was confirmed. SUBJECTIVE: I have communicated my name and active licensure. The patient's identity and physical location were verified at the time of this visit. Either the patient or their legal outbound telemarketing representative has been informed of the risks and benefits of -- and alternatives to -- treatment through a remote evaluation and consents to proceed with the evaluation remotely. PATIENT DATA: Generalized Anxiety Disorder Scale (JET-7) 11/27/2024 12/25/2024 01/08/2025 JET - 7 SCORES Score 8 8 8 (0-4) minimal anxiety, (5-9) mild anxiety, (10-14) moderate anxiety, (15-21) severe anxiety Patient Health Questionnaire (PHQ-9) 11/27/2024 12/25/2024 01/08/2025 PHQ-9 Score 10 10 9 (0-4) minimal depression, (5-9) mild depression, (10-14) moderate depression, (15-19) moderately severe depression, (20-27) severe depression OBJECTIVE: Supportive therapy Mental Status Exam: General/Sensorium: Alert and AND interactive - Appearance: Appears stated age - Eye Contact: Appropriate eye [...] Patient worked on processing through her emotional symptoms. Patient worked on addressing family related problems. DIAGNOSIS: PRIMARY: 1: Major depression recurrent moderate Other: None PROVISIONAL: None TREATMENT MODALITIES: Cognitive Behavioral Therapy to self monitoring PROGRESS TO DATE: [facility] Progress: Progress Short Term Condition: Progress GOALS/OBJECTIVES/INTERVENTIONS: Patient to reduce symptoms of depression Patient to improve sleep hygiene Patient to improve self-care Patient to improve conflict resolution skills Patient to improve use of coping mechanisms Approximately 45 minutes were spent with the patient doing therapy. [facility]05-16-2025 NoteHNO ID: [id number] Author: PERCY VARGAS LISW Service: ? Author Type: Reel And Rewinder Operator Type: Progress Notes Filed: 12/26/2024 14:34 Note Text: GENERAL PSYCHOLOGY Session #: 89 (session count starts after PSYL NEW EVAL visit) Visit Type:The patient consented to a virtual visit and their location was confirmed. SUBJECTIVE: I have communicated my name and active licensure. The patient's identity and physical location were verified at the time of this visit. Either the patient or their legal outbound telemarketing representative has been informed of the risks and benefits of -- and alternatives to -- treatment through a remote evaluation and consents to proceed with the evaluation remotely. PATIENT DATA: Generalized Anxiety Disorder Scale (JET-7) 11/07/2024 11/27/2024 12/25/2024 JET - 7 SCORES Score 8 8 8 (0-4) minimal anxiety, (5-9) mild anxiety, (10-14) moderate anxiety, (15-21) severe anxiety Patient Health Questionnaire (PHQ-9) 11/07/2024 11/27/2024 12/25/2024 PHQ-9 Score 9 10 10 (0-4) minimal depression, (5-9) mild depression, (10-14) moderate depression, (15-19) moderately severe depression, (20-27) severe depression OBJECTIVE: Supportive therapy Mental Status Exam: General/Sensorium: Alert and AND interactive - Appearance: Appears stated age - Eye Contact: Appropriate eye [...] Patient worked on processing through her emotional symptoms. Patient addressed her recent trip with her son. Patient addressed her difficulty with Mother's Day since her mom's . DIAGNOSIS: PRIMARY: 1: Major depression recurrent moderate Other: None PROVISIONAL: None TREATMENT MODALITIES: Cognitive Behavioral Therapy to self monitoring PROGRESS TO DATE: [facility] Progress: Progress Short Term Condition: Progress GOALS/OBJECTIVES/INTERVENTIONS: Patient to reduce symptoms of depression Patient to improve sleep hygiene Patient to improve self-care Patient to improve conflict resolution skills Patient to improve use of coping mechanisms Approximately 45 minutes were spent with the patient doing therapy. [facility]05-06-2025 Telephone encounter Note * Telephone Encounter - Charissa Garrido - 12/16/2024 1:56 PM EDT Physician: Dr. Angulo Call from pharmacy requesting refill. Please E-Scribe Last OV: 03/27/[address] Angulo Future OV: no future appointments scheduled with Dr. Angulo Requested Prescriptions Pending Prescriptions Disp Refills lamoTRIgine (LAMICTAL) 100 mg tablet [Pharmacy Med Name: lamoTRIgine 100MG TABS*] 30 tablet 0 Sig: TAKE 1 TABLET BY MOUTH DAILY Pharmacy Name: [facility] Phone #: [phone] 03/27/2023 Assessment and Plan 52 years old women [...] least 6-8, 8 oz glasses of water/d Note Details Progress Notes Dilia Angulo MD (Physician) Neurology Expand All Collapse All Interval history Headache Bruno Patterson is a 51 year old female seen [...] therapy and vestibular therapy done many times [facility] Work Phone: 1(514) 985-444005-06-2025 Miscellaneous Notes* Telephone Encounter - Charissa Garrido - 12/16/2024 1:56 PM EDT Physician: Dr. Angulo Call from pharmacy requesting refill. Please E-Scribe Last OV: 03/27/[address] Angulo Future OV: no future appointments scheduled with Dr. Angulo Requested Prescriptions Pending Prescriptions Disp Refills lamoTRIgine (LAMICTAL) 100 mg tablet [Pharmacy Med Name: lamoTRIgine 100MG TABS*] 30 tablet 0 Sig: TAKE 1 TABLET BY MOUTH DAILY Pharmacy Name: [facility] Phone #: [phone] 03/27/2023 Assessment and Plan 52 years old women [...] least 6-8, 8 oz glasses of water/d Note Details Progress Notes Dilia Angulo MD (Physician) Neurology Expand All Collapse All Interval history Headache Bruno Patterson is a 51 year old female seen [...] therapy and vestibular therapy done many times documented in this encounterL[facility]04-21-2025 NotePap Smear Specimen AdequacyApril 2024 11:59pmComment.Satisfactory for evaluation. Endocervical and/or squamous metaplasticcells (endocervical component)are present.[facility] INTERFACED A#[id number] HospitalComment on above: Satisfactory for evaluation. Endocervical and/or squamous metaplasticcells (endocervical component)are present.12-01-2024 Evaluation note* Diagnosis Onset Date Resolution Status Admit Date Encounter for routine gynecological examination noneactive December 01, 2024 10:39am [facility] Work Phone: 1(143) 494-242004-18-2025 NoteHNO ID: [id number] Author: PERCY VARGAS LISW Service: ? Author Type: Reel And Rewinder Operator Type: Progress Notes Filed: 11/28/2024 14:39 Note Text: GENERAL PSYCHOLOGY Session #: 88 (session count starts after PSYL NEW EVAL visit) Visit Type:The patient consented to a virtual visit and their location was confirmed. SUBJECTIVE: I have communicated my name and active licensure. The patient's identity and physical location were verified at the time of this visit. Either the patient or their legal outbound telemarketing representative has been informed of the risks and benefits of -- and alternatives to -- treatment through a remote evaluation and consents to proceed with the evaluation remotely. PATIENT DATA: Generalized Anxiety Disorder Scale (JET-7) 10/23/2024 11/07/2024 11/27/2024 JET - 7 SCORES Score 8 8 8 (0-4) minimal anxiety, (5-9) mild anxiety, (10-14) moderate anxiety, (15-21) severe anxiety Patient Health Questionnaire (PHQ-9) 10/23/2024 11/07/2024 11/27/2024 PHQ-9 Score 8 9 10 (0-4) minimal depression, (5-9) mild depression, (10-14) moderate depression, (15-19) moderately severe depression, (20-27) severe depression OBJECTIVE: Supportive therapy Mental Status Exam: General/Sensorium: Alert and AND interactive - Appearance: Appears stated age - Eye Contact: Appropriate eye [...] Patient worked on processing through her emotional symptoms. Patient worked on addressing some family related problems DIAGNOSIS: PRIMARY: 1: Major depression recurrent moderate Other: None PROVISIONAL: None TREATMENT MODALITIES: Cognitive Behavioral Therapy to self monitoring PROGRESS TO DATE: [facility] Progress: Progress Short Term Condition: Progress GOALS/OBJECTIVES/INTERVENTIONS: Patient to reduce symptoms of depression Patient to improve sleep hygiene Patient to improve self-care Patient to improve conflict resolution skills Patient to improve use of coping mechanisms Approximately 45 minutes were spent with the patient doing therapy. [facility]03-28-2025 NoteHNO ID: [id number] Author: PERCY VARGAS LISW Service: ? Author Type: Reel And Rewinder Operator Type: Progress Notes Filed: 11/07/2024 16:16 Note Text: GENERAL PSYCHOLOGY Session #: 87 (session count starts after PSYL NEW EVAL visit) Visit Type:The patient consented to a virtual visit and their location was confirmed. SUBJECTIVE: I have communicated my name and active licensure. The patient's identity and physical location were verified at the time of this visit. Either the patient or their legal outbound telemarketing representative has been informed of the risks and benefits of -- and alternatives to -- treatment through a remote evaluation and consents to proceed with the evaluation remotely. PATIENT DATA: Generalized Anxiety Disorder Scale (JET-7) 10/10/2024 10/23/2024 11/07/2024 JET - 7 SCORES Score 8 8 8 (0-4) minimal anxiety, (5-9) mild anxiety, (10-14) moderate anxiety, (15-21) severe anxiety Patient Health Questionnaire (PHQ-9) 10/10/2024 10/23/2024 11/07/2024 PHQ-9 Score 9 8 9 (0-4) minimal depression, (5-9) mild depression, (10-14) moderate depression, (15-19) moderately severe depression, (20-27) severe depression OBJECTIVE: Supportive therapy Mental Status Exam: General/Sensorium: Alert and AND interactive - Appearance: Appears stated age - Eye Contact: Appropriate eye [...] Patient worked on processing through her emotional symptoms. Patient worked on addressing her increase in activity level along with interactions with her family DIAGNOSIS: PRIMARY: 1: Major depression recurrent moderate Other: None PROVISIONAL: None TREATMENT MODALITIES: Cognitive Behavioral Therapy to self monitoring PROGRESS TO DATE: [facility] Progress: Progress Short Term Condition: Progress GOALS/OBJECTIVES/INTERVENTIONS: Patient to reduce symptoms of depression Patient to improve sleep hygiene Patient to improve self-care Patient to improve conflict resolution skills Patient to improve use of coping mechanisms Approximately 45 minutes were spent with the patient doing therapy. [facility]03-24-2025 Telephone encounter Note * Telephone Encounter - Eunice Calvo MA - 11/03/2024 8:40 AM EDT Received medical record request for last 2 office notes and labs to be sent to [facility] at [phone], forms have been faxed and medical request will be sent to scanning. [facility]03-24-2025 Miscellaneous Notes* Telephone Encounter - Eunice Calvo MA - 11/03/2024 8:40 AM EDT Received medical record request for last 2 office notes and labs to be sent to [facility] at [phone], forms have been faxed and medical request will be sent to scanning. documented in this encounterLicking [facility]03-14-2025 NoteHNO ID: [id number] Author: PERCY VARGAS LISW Service: ? Author Type: Reel And Rewinder Operator Type: Progress Notes Filed: 10/24/2024 13:38 Note Text: GENERAL PSYCHOLOGY Session #: 86 (session count starts after PSYL NEW EVAL visit) Visit Type:The patient consented to a virtual visit and their location was confirmed. SUBJECTIVE: I have communicated my name and active licensure. The patient's identity and physical location were verified at the time of this visit. Either the patient or their legal outbound telemarketing representative has been informed of the risks and benefits of -- and alternatives to -- treatment through a remote evaluation and consents to proceed with the evaluation remotely. PATIENT DATA: Generalized Anxiety Disorder Scale (JET-7) 09/25/2024 10/10/2024 10/23/2024 JET - 7 SCORES Score 8 8 8 (0-4) minimal anxiety, (5-9) mild anxiety, (10-14) moderate anxiety, (15-21) severe anxiety Patient Health Questionnaire (PHQ-9) 09/25/2024 10/10/2024 10/23/2024 PHQ-9 Score 12 9 8 (0-4) minimal depression, (5-9) mild depression, (10-14) moderate depression, (15-19) moderately severe depression, (20-27) severe depression OBJECTIVE: Cognitive behavioral therapy Mental Status Exam: General/Sensorium: Alert and AND interactive - Appearance: Appears stated age - Eye Contact: Appropriate eye [...] Patient worked on processing through her emotional symptoms. Patient worked on addressing family related situations. DIAGNOSIS: PRIMARY: 1: Major depression recurrent moderate Other: None PROVISIONAL: None TREATMENT MODALITIES: Cognitive Behavioral Therapy to self monitoring PROGRESS TO DATE: [facility] Progress: Progress Short Term Condition: Progress GOALS/OBJECTIVES/INTERVENTIONS: Patient to reduce symptoms of depression Patient to improve sleep hygiene Patient to improve self-care Patient to improve conflict resolution skills Patient to improve use of coping mechanisms Approximately 45 minutes were spent with the patient doing therapy. [facility]03-10-2025 Telephone encounter Note * Telephone Encounter - Dilia Angulo MD - 10/20/2024 8:37 PM EDT Patient needs follow up visit No more refills [facility]03-10-2025 Miscellaneous Notes* Telephone Encounter - Dilia Angulo MD - 10/20/2024 8:37 PM EDT Patient needs follow up visit No more refills * Telephone Encounter - Eunice Calvo MA - 10/20/2024 12:35 PM EDT Pharmacy verified in [employer]. Patient has been identified by name and date of : Yes Patient aware RX will be sent to pharmacy. No need to notify patient. Pharmacy phones for refill(s): Requested Prescriptions Pending Prescriptions Disp Refills lamoTRIgine (LAMICTAL) 100 mg tablet [Pharmacy Med Name: lamoTRIgine 100MG TABS*] 30 tablet 0 Sig: TAKE 1 TABLET BY MOUTH DAILY Date of last office visit : 03/27/2023 Date of next office visit : Visit date not found Last 2 Encounter Wt Readings: Date: Wt: 11/19/2023 102.1 kg (225 lb) 10/30/2023 100.5 kg (221 lb 9 oz) Please advise. Eunice Calvo MA documented in [facility] encounterL[facility]03-10-2025 Telephone encounter Note * Telephone Encounter - Eunice Calvo MA - 10/20/2024 12:35 PM EDT Pharmacy verified in [employer]. Patient has been identified by name and date of : Yes Patient aware RX will be sent to pharmacy. No need to notify patient. Pharmacy phones for refill(s): Requested Prescriptions Pending Prescriptions Disp Refills lamoTRIgine (LAMICTAL) 100 mg tablet [Pharmacy Med Name: lamoTRIgine 100MG TABS*] 30 tablet 0 Sig: TAKE 1 TABLET BY MOUTH DAILY Date of last office visit : 03/27/2023 Date of next office visit : Visit date not found Last 2 Encounter Wt Readings: Date: Wt: 11/19/2023 102.1 kg (225 lb) 10/30/2023 100.5 kg (221 lb 9 oz) Please advise. Eunice Calvo MA [facility]02-28-2025 NoteHNO ID: [id number] Author: PERCY VARGAS LISW Service: ? Author Type: Reel And Rewinder Operator Type: Progress Notes Filed: 10/10/2024 15:45 Note Text: GENERAL PSYCHOLOGY Session #: 85 (session count starts after PSYL NEW EVAL visit) Visit Type:The patient consented to a virtual visit and their location was confirmed. SUBJECTIVE: I have communicated my name and active licensure. The patient's identity and physical location were verified at the time of this visit. Either the patient or their legal outbound telemarketing representative has been informed of the risks and benefits of -- and alternatives to -- treatment through a remote evaluation and consents to proceed with the evaluation remotely. PATIENT DATA: Generalized Anxiety Disorder Scale (JET-7) 09/04/2024 09/25/2024 10/10/2024 JET - 7 SCORES Score 8 8 8 (0-4) minimal anxiety, (5-9) mild anxiety, (10-14) moderate anxiety, (15-21) severe anxiety Patient Health Questionnaire (PHQ-9) 09/04/2024 09/25/2024 10/10/2024 PHQ-9 Score 11 12 9 (0-4) minimal depression, (5-9) mild depression, (10-14) moderate depression, (15-19) moderately severe depression, (20-27) severe depression OBJECTIVE: Cognitive behavioral therapy Mental Status Exam: General/Sensorium: Alert and AND interactive - Appearance: Appears stated age - Eye Contact: Appropriate eye [...] Patient worked on processing through her emotional symptoms. Patient reported some improvement in her mood since last session DIAGNOSIS: PRIMARY: 1: Major depression recurrent moderate Other: None PROVISIONAL: None TREATMENT MODALITIES: Cognitive Behavioral Therapy to self monitoring PROGRESS TO DATE: [facility] Progress: Progress Short Term Condition: Progress GOALS/OBJECTIVES/INTERVENTIONS: Patient to reduce symptoms of depression Patient to improve sleep hygiene Patient to improve self-care Patient to improve conflict resolution skills Patient to improve use of coping mechanisms Approximately 45 minutes were spent with the patient doing therapy. [facility]02-14-2025 NoteHNO ID: [id number] Author: PERCY VARGAS LISW Service: ? Author Type: Reel And Rewinder Operator Type: Progress Notes Filed: 09/26/2024 13:41 Note Text: GENERAL PSYCHOLOGY Session #: 84 (session count starts after PSYL NEW EVAL visit) Visit Type:The patient consented to a virtual visit and their location was confirmed. SUBJECTIVE: I have communicated my name and active licensure. The patient's identity and physical location were verified at the time of this visit. Either the patient or their legal outbound telemarketing representative has been informed of the risks and benefits of -- and alternatives to -- treatment through a remote evaluation and consents to proceed with the evaluation remotely. PATIENT DATA: Generalized Anxiety Disorder Scale (JET-7) 08/21/2024 09/04/2024 09/25/2024 JET - 7 SCORES Score 8 8 8 (0-4) minimal anxiety, (5-9) mild anxiety, (10-14) moderate anxiety, (15-21) severe anxiety Patient Health Questionnaire (PHQ-9) 08/21/2024 09/04/2024 09/25/2024 PHQ-9 Score 11 11 12 (0-4) minimal depression, (5-9) mild depression, (10-14) moderate depression, (15-19) moderately severe depression, (20-27) severe depression OBJECTIVE: Cognitive behavioral therapy Mental Status Exam: General/Sensorium: Alert and AND interactive - Appearance: Appears stated age - Eye Contact: Appropriate eye [...] Patient worked on processing through her emotional symptoms. Patient worked on addressing her use of coping mechanisms. Patient addressed family related problems DIAGNOSIS: PRIMARY: 1: Major depression recurrent moderate Other: None PROVISIONAL: None TREATMENT MODALITIES: Cognitive Behavioral Therapy to self monitoring PROGRESS TO DATE: [facility] Progress: Progress Short Term Condition: Progress GOALS/OBJECTIVES/INTERVENTIONS: Patient to reduce symptoms of depression Patient to improve sleep hygiene Patient to improve self-care Patient to improve conflict resolution skills Patient to improve use of coping mechanisms Approximately 45 minutes were spent with the patient doing therapy. [facility]01-24-2025 NoteHNO ID: [id number] Author: PERCY VARGAS LISW Service: ? Author Type: Reel And Rewinder Operator Type: Progress Notes Filed: 09/05/2024 14:41 Note Text: GENERAL PSYCHOLOGY Session #: 83 (session count starts after PSYL NEW EVAL visit) Visit Type:The patient consented to a virtual visit and their location was confirmed. SUBJECTIVE: I have communicated my name and active licensure. The patient's identity and physical location were verified at the time of this visit. Either the patient or their legal outbound telemarketing representative has been informed of the risks and benefits of -- and alternatives to -- treatment through a remote evaluation and consents to proceed with the evaluation remotely. PATIENT DATA: Generalized Anxiety Disorder Scale (JET-7) 07/31/2024 08/21/2024 09/04/2024 JET - 7 SCORES Score 8 8 8 (0-4) minimal anxiety, (5-9) mild anxiety, (10-14) moderate anxiety, (15-21) severe anxiety Patient Health Questionnaire (PHQ-9) 07/31/2024 08/21/2024 09/04/2024 PHQ-9 Score 8 11 11 (0-4) minimal depression, (5-9) mild depression, (10-14) moderate depression, (15-19) moderately severe depression, (20-27) severe depression OBJECTIVE: Cognitive behavioral therapy Mental Status Exam: General/Sensorium: Alert and AND interactive - Appearance: Appears stated age - Eye Contact: Appropriate eye contact - Demeanor: Appropriately interactive - Speech: Appropriate - Mood: Reports feeling [...] Patient worked on processing through her emotional symptoms. Patient worked on addressing family related problems and the negative impact on her emotionally DIAGNOSIS: PRIMARY: 1: Major depression recurrent moderate Other: None PROVISIONAL: None TREATMENT MODALITIES: Cognitive Behavioral Therapy to self monitoring PROGRESS TO DATE: [facility] Progress: Progress Short Term Condition: Progress GOALS/OBJECTIVES/INTERVENTIONS: Patient to reduce symptoms of depression Patient to improve sleep hygiene Patient to improve self-care Patient to improve conflict resolution skills Patient to improve use of coping mechanisms Approximately 45 minutes were spent with the patient doing therapy. [facility]01-10-2025 NoteHNO ID: [id number] Author: PERCY VARGAS LISW Service: ? Author Type: Reel And Rewinder Operator Type: Progress Notes Filed: 08/22/2024 16:26 Note Text: GENERAL PSYCHOLOGY Session #: 82 (session count starts after PSYL NEW EVAL visit) Visit Type:The patient consented to a virtual visit and their location was confirmed. SUBJECTIVE: I have communicated my name and active licensure. The patient's identity and physical location were verified at the time of this visit. Either the patient or their legal outbound telemarketing representative has been informed of the risks and benefits of -- and alternatives to -- treatment through a remote evaluation and consents to proceed with the evaluation remotely. PATIENT DATA: Generalized Anxiety Disorder Scale (JET-7) 07/16/2024 07/31/2024 08/21/2024 JET - 7 SCORES Score 7 8 8 (0-4) minimal anxiety, (5-9) mild anxiety, (10-14) moderate anxiety, (15-21) severe anxiety Patient Health Questionnaire (PHQ-9) 07/16/2024 07/31/2024 08/21/2024 PHQ-9 Score 9 8 11 (0-4) minimal depression, (5-9) mild depression, (10-14) moderate depression, (15-19) moderately severe depression, (20-27) severe depression OBJECTIVE: Cognitive behavioral therapy Mental Status Exam: General/Sensorium: Alert and AND interactive - Appearance: Appears stated age - Eye Contact: Appropriate eye [...] Patient worked on processing through her emotional symptoms. Patient worked on addressing family related problems. DIAGNOSIS: PRIMARY: 1: Major depression recurrent moderate Other: None PROVISIONAL: None TREATMENT MODALITIES: Cognitive Behavioral Therapy to self monitoring PROGRESS TO DATE: [facility] Progress: Progress Short Term Condition: Regressed GOALS/OBJECTIVES/INTERVENTIONS: Patient to reduce symptoms of depression Patient to improve sleep hygiene Patient to improve self-care Patient to improve conflict resolution skills Patient to improve use of coping mechanisms Approximately 45 minutes were spent with the patient doing therapy. [facility]01-08-2025 Evaluation note* Diagnosis Onset Date Resolution Status Admit Date Thoracic ascending aortic aneurysm acute August 20 9:53am Depression acute September 26, 2024 1:51pm Essential (primary) hypertension acute September 26 2 025 1:51pm GERD (gastroesophageal reflu x disease) acute September 26 025 1:51pm Hyperlipidemia acute September 132024 1:51pm Hypothyroidism acute September 132024 1:51pm Migraine headache acute 2024 1:51pm Osteoarthritis acute September 132024 1:51pm Fusion of lumbar spine acute bruary 2024 1:33pm Sacroiliitis acute September 1:33pm [facility] Work Phone: 1(396) 786-114501-08-2025 Evaluation note* Diagnosis Onset Date Resolution Status Admit Date Thoracic ascending aortic aneurysm acute August 20 9:53am Depression acute September 26, 2024 1:51pm Essential (primary) hypertension acute September 26 025 1:51pm GERD (gastroesophageal reflu x disease) acute September 26 1:51pm Hyperlipidemia acute September 132024 1:51pm Hypothyroidism acute September 132024 1:51pm Migraine headache acute 2024 1:51pm Osteoarthritis acute September 132024 1:51pm Sacroiliitis acute September 1:33pm Fusion of lumbar spine inactive ary 2024 1:33pm Essential (primary) hypertension acute October 29, 2024 1:02pm GERD (gastroesophageal reflu x disease) acute October 29, 2024 1:02pm Hypothyroidism acute October 1:02pm Migraine headache acute October 112024 1:02pm Neuropathic pain acute October 292024 1:02pm Osteoarthritis acute October 1:02pm Thoracic ascending aortic aneurysm acute October 29, 2024 1:02pm M ni re's disease chronic October 112024 1:02pm Immunization declined noneactive Oct 1:02pm Mild anxiety noneactive October 29, 2024 1:02pm Establishing care with new doctor, encounter for noneactive October 1:02pm Electronic cigarette use noneactive October 29, 2024 1:02pm Cold feet noneactive October 29 1:02pm Suspected sleep apnea noneactive [facility] 2024 1:02pm Moderately severe depression noneact benny October 29, 2024 1:02pm [facility] Work Phone: 1(727) 323-237701-08-2025 Evaluation note* Diagnosis Onset Date Resolution Status Admit Date Thoracic ascending aortic aneurysm acute August 20 9:53am Depression acute September 26, 2024 1:51pm Essential (primary) hypertension acute September 26 025 1:51pm GERD (gastroesophageal reflu x disease) acute September 26 025 1:51pm Hyperlipidemia acute September 132024 1:51pm Hypothyroidism acute September 132024 1:51pm Migraine headache acute 2024 1:51pm Osteoarthritis acute September 132024 1:51pm Sacroiliitis acute September 1:33pm Fusion of lumbar spine inactive Fe bruary 2024 1:33pm Essential (primary) hypertension acute October 29, 2024 1:02pm GERD (gastroesophageal reflu x disease) acute October 29, 2024 1:02pm Hypothyroidism acute October 1:02pm Migraine headache acute October 112024 1:02pm Neuropathic pain acute October 292024 1:02pm Osteoarthritis acute October 1:02pm Thoracic ascending aortic aneurysm acute October 29, 2024 1:02pm M ni re's disease chronic October 112024 1:02pm Immunization declined noneactive [facility] 2024 1:02pm Mild anxiety noneactive October 29, 2024 1:02pm Establishing care with new doctor, encounter for noneactive October 1:02pm Electronic cigarette use noneactive October 29, 2024 1:02pm Cold feet noneactive October 29 1:02pm Suspected sleep apnea noneactive [facility] 2024 1:02pm Moderately severe depression noneact benny October 29, 2024 1:02pm Encounter for routine gynecological examination noneactive December 01, 2024 10:39am [facility] Work Phone: 1(979) 618-439401-06-2025 Telephone encounter Note* Telephone Encounter - Charissa Garrido - 08/18/2024 9:59 AM EST Physician: Dr. Angulo Call from pharmacy requesting refill. Please E-Scribe Last OV: 03/27/[address] Angulo Future OV: no future appointments scheduled with Dr. Angulo Requested Prescriptions Pending Prescriptions Disp Refills lamoTRIgine (LAMICTAL) 100 mg tablet [Pharmacy Med Name: lamoTRIgine 100MG TABS*] 30 tablet 4 Sig: TAKE 1 TABLET BY MOUTH DAILY Pharmacy Name: [facility] Phone #: [phone] 03/27/2023 ASSESSMENT: No diagnosis found. Vestibular migraine and intractable headache Post traumatic headache Chronic daily headache PLAN: No orders found for this visit on 03/27/23. Lamictal 25 mg for vestibular migraine Follow up visit after trial of lamictal There are no Patient Instructions on file for this visit. [facility] Work Phone: 1(253) 713-726701-06-2025 Miscellaneous Notes* Telephone Encounter - Charissa Garrido - 08/18/2024 9:59 AM EST Physician: Dr. Angulo Call from pharmacy requesting refill. Please E-Scribe Last OV: 03/27/[address] Angulo Future OV: no future appointments scheduled with Dr. Angulo Requested Prescriptions Pending Prescriptions Disp Refills lamoTRIgine (LAMICTAL) 100 mg tablet [Pharmacy Med Name: lamoTRIgine 100MG TABS*] 30 tablet 4 Sig: TAKE 1 TABLET BY MOUTH DAILY Pharmacy Name: [facility] Phone #: [phone] 03/27/2023 ASSESSMENT: No diagnosis found. Vestibular migraine and intractable headache Post traumatic headache Chronic daily headache PLAN: No orders found for this visit on 03/27/23. Lamictal 25 mg for vestibular migraine Follow up visit after trial of lamictal There are no Patient Instructions on file for this visit. [facility] NoteHNO ID: [id number] Author: PERCY VARGAS LISW Service: ? Author Type: Reel And Rewinder Operator Type: Progress Notes Filed: 08/01/2024 14:12 Note Text: GENERAL PSYCHOLOGY Session #: 81 (session count starts after PSYL NEW EVAL visit) Visit Type:The patient consented to a virtual visit and their location was confirmed. SUBJECTIVE: I have communicated my name and active licensure. The patient's identity and physical location were verified at the time of this visit. Either the patient or their legal outbound telemarketing representative has been informed of the risks and benefits of -- and alternatives to -- treatment through a remote evaluation and consents to proceed with the evaluation remotely. PATIENT DATA: Generalized Anxiety Disorder Scale (JET-7) 07/01/2024 07/16/2024 07/31/2024 JET - 7 SCORES Score 10 7 8 (0-4) minimal anxiety, (5-9) mild anxiety, (10-14) moderate anxiety, (15-21) severe anxiety Patient Health Questionnaire (PHQ-9) 07/01/2024 07/16/2024 07/31/2024 PHQ-9 Score 9 9 8 (0-4) minimal depression, (5-9) mild depression, (10-14) moderate depression, (15-19) moderately severe depression, (20-27) severe depression OBJECTIVE: Cognitive behavioral therapy Mental Status Exam: General/Sensorium: Alert and AND interactive - Appearance: Appears stated age - Eye Contact: Appropriate eye [...] Patient worked on processing through her emotional symptoms. Patient worked on addressing family related problems. DIAGNOSIS: PRIMARY: 1: Major depression recurrent moderate Other: None PROVISIONAL: None TREATMENT MODALITIES: Cognitive Behavioral Therapy to self monitoring PROGRESS TO DATE: [facility] Progress: Progress Short Term Condition: Progress GOALS/OBJECTIVES/INTERVENTIONS: Patient to reduce symptoms of depression Patient to improve sleep hygiene Patient to improve self-care Patient to improve conflict resolution skills Patient to improve use of coping mechanisms Approximately 45 minutes were spent with the patient doing therapy. [facility]12-06-2024 NoteHNO ID: [id number] Author: PERCY VARGAS LISW Service: ? Author Type: Reel And Rewinder Operator Type: Progress Notes Filed: 07/18/2024 15:26 Note Text: GENERAL PSYCHOLOGY Session #: 80 (session count starts after PSYL NEW EVAL visit) Visit Type:The patient consented to a virtual visit and their location was confirmed. SUBJECTIVE: I have communicated my name and active licensure. The patient's identity and physical location were verified at the time of this visit. Either the patient or their legal outbound telemarketing representative has been informed of the risks and benefits of -- and alternatives to -- treatment through a remote evaluation and consents to proceed with the evaluation remotely. PATIENT DATA: Generalized Anxiety Disorder Scale (JET-7) 06/11/2024 07/01/2024 07/16/2024 JET - 7 SCORES Score 9 10 7 (0-4) minimal anxiety, (5-9) mild anxiety, (10-14) moderate anxiety, (15-21) severe anxiety Patient Health Questionnaire (PHQ-9) 05/29/2024 07/01/2024 07/16/2024 PHQ-9 Score 12 9 9 (0-4) minimal depression, (5-9) mild depression, (10-14) moderate depression, (15-19) moderately severe depression, (20-27) severe depression OBJECTIVE: Cognitive behavioral therapy Mental Status Exam: General/Sensorium: Alert and AND interactive - Appearance: Appears stated age - Eye Contact: Appropriate eye contact - Demeanor: Appropriately interactive - Motor Activity: Normal - Speech: Appropriate - Affect: Flat - Thought Process: Linear, [...] Facility Progress: Progress Short Term Condition: Regressed GOALS/OBJECTIVES/INTERVENTIONS: Patient to reduce symptoms of depression Patient to improve sleep hygiene Patient to improve self-care Patient to improve conflict resolution skills Patient to improve use of coping mechanisms Approximately 45 minutes were spent with the patient doing therapy. [facility]11-22-2024 NoteHNO ID: [id number] Author: PERCY VARGAS LISW Service: ? Author Type: Reel And Rewinder Operator Type: Progress Notes Filed: 07/04/2024 16:39 Note Text: GENERAL PSYCHOLOGY Session #: 78 (session count starts after PSYL NEW EVAL visit) Visit Type:The patient consented to a virtual visit and their location was confirmed. SUBJECTIVE: I have communicated my name and active licensure. The patient's identity and physical location were verified at the time of this visit. Either the patient or their legal outbound telemarketing representative has been informed of the risks and benefits of -- and alternatives to -- treatment through a remote evaluation and consents to proceed with the evaluation remotely. PATIENT DATA: Generalized Anxiety Disorder Scale (JET-7) 05/29/2024 06/11/2024 07/01/2024 JET - 7 SCORES Score 12 9 10 (0-4) minimal anxiety, (5-9) mild anxiety, (10-14) moderate anxiety, (15-21) severe anxiety Patient Health Questionnaire (PHQ-9) 05/13/2024 05/29/2024 07/01/2024 PHQ-9 Score 9 12 9 (0-4) minimal depression, (5-9) mild depression, (10-14) moderate depression, (15-19) moderately severe depression, (20-27) severe depression OBJECTIVE: Cognitive behavioral therapy Mental Status Exam: General/Sensorium: Alert and AND interactive - Appearance: Appears stated age - Eye Contact: Appropriate eye contact - Demeanor: Appropriately interactive - Motor Activity: Normal - Speech: Appropriate - Mood: Reports feeling depressed and Anxious - Affect: Congruent with mood - Thought Process: Linear, logical, and goal-directed - Associations: Normal - Thought Content: Appropriate with no SI/HI/AVH - Perceptions: The patient does not appear internally stimulated - Cognition: Appears intact in regards to memory, attention/concentration, fund of knowledge and language skills - Insight: Good - Judgment: Good - ASSESSMENT: Patient worked on processing through her emotional symptoms. Patient worked on addressing family related problems DIAGNOSIS: PRIMARY: 1: Major depression recurrent moderate Other: None PROVISIONAL: None TREATMENT MODALITIES: Cognitive Behavioral Therapy to self monitoring PROGRESS TO DATE: [facility] Progress: Progress Short Term Condition: Progress GOALS/OBJECTIVES/INTERVENTIONS: Patient to reduce symptoms of depression Patient to improve sleep hygiene Patient to improve self-care Patient to improve conflict resolution skills Patient to improve use of coping mechanisms Approximately 45 minutes were spent with the patient doing therapy. [facility]-20-2024 Telephone encounter Note * Telephone Encounter - Charissa Garrido - 04/01/2024 12:16 PM EDT Physician: Dr. Angulo Call from pharmacy requesting refill. Please E-Scribe Last OV: 09/14/[address] Angulo Future OV: no future appointments scheduled with Dr. Angulo Requested Prescriptions Pending Prescriptions Disp Refills lamoTRIgine (LAMICTAL) 100 mg tablet [Pharmacy Med Name: lamoTRIgine 100MG TABS*] 30 tablet 4 Sig: take 1 tablet by mouth daily Pharmacy Name: [facility] Phone #: [phone] 09/14/2022 ASSESSMENT: No diagnosis found. Vestibular migraine and intractable headache Post traumatic headache Chronic daily headache PLAN: No orders found for this visit on 09/14/22. Lamictal 25 mg for vestibular migraine Patient Instructions Increasing Lamictal 50 mg for the first week Then 100 mg every night Spent total of 30 minutes for this follow up visit Patient care ,tests results and plan of care Dilia Angulo MD [facility] Work Phone: 1(659) 948-153108-20-2024 Miscellaneous Notes* Telephone Encounter - Charissa Garrido - 04/01/2024 12:16 PM EDT Physician: Dr. Angulo Call from pharmacy requesting refill. Please E-Scribe Last OV: 09/14/[address] Angulo Future OV: no future appointments scheduled with Dr. Angulo Requested Prescriptions Pending Prescriptions Disp Refills lamoTRIgine (LAMICTAL) 100 mg tablet [Pharmacy Med Name: lamoTRIgine 100MG TABS*] 30 tablet 4 Sig: take 1 tablet by mouth daily Pharmacy Name: [facility] Phone #: [phone] 09/14/2022 ASSESSMENT: No diagnosis found. Vestibular migraine and intractable headache Post traumatic headache Chronic daily headache PLAN: No orders found for this visit on 09/14/22. Lamictal 25 mg for vestibular migraine Patient Instructions Increasing Lamictal 50 mg for the first week Then 100 mg every night Spent total of 30 minutes for this follow up visit Patient care ,tests results and plan of care Dilia Angulo MD documented [facility] encounter[facility] Discharge summary Author Ky Henderson [facility] December 18, 2023 7:18pm Note Date/Time December 18, 2023 7:04pm [facility] Medical Records Department [address] [place] [id number] Discharge Summary 12/18/23 1902 MR#: [id number] Acct: [id number] Name: BRUNO PATTERSON Rep #:[id number] : 1970 53 From: Ky Henderson MD PCP: Care Physician,No Primary Status :ADM IN Location: [place] [address] Providers Date of Admission: 12/07/23 Primary Care Physician: No Primary Care Phys Reason For Visit: RIGHT HIP ARTHROPLASTY Diagnosis Discharge Diagnosis (1) Debility: Status: Acute Code(s): R53.81 - Other malaise (2) Degenerative joint disease of right hip: Status: Acute Code(s): M16.11 - Unilateral primary osteoarthritis, right hip Qualifiers: Osteoarthritis type: primary Qualified Code(s): M16.11 - Unilateral primary osteoarthritis, right hip (3) Status post total hip replacement, right: Status: Acute Code(s): Z96.641 - Presence of right artificial hip joint (4) M?ni?re's disease: Status: Chronic Code(s): H81.09 - Meniere's disease, unspecified ear (5) Hyperlipidemia: Status: Acute Code(s): E78.5 - Hyperlipidemia, unspecified (6) Osteoarthritis: Status: Acute Code(s): M19.90 - Unspecified osteoarthritis, unspecified site (7) Vitamin D deficiency: Status: Acute Code(s): E55.9 - Vitamin D deficiency, unspecified (8) Allergic rhinitis: Status: Acute Code(s): J30.9 - Allergic rhinitis, unspecified (9) Neuropathic pain: Status: Acute Code(s): M79.2 - Neuralgia and neuritis, unspecified (10) Depression: Status: Acute Code(s): F32.A - Depression, unspecified (11) Hypothyroidism: Status: Acute Code(s): E03.9 - Hypothyroidism, unspecified (12) Muscle spasm: Status: Acute Code(s): M62.838 - Other muscle spasm (13) Nausea: Status: Acute Code(s): R11.0 - Nausea (14) GERD (gastroesophageal reflux disease): Status: Acute Code(s): K21.9 - Gastro-esophageal reflux disease without esophagitis (15) Hypokalemia: Status: Acute Code(s): E87.6 - Hypokalemia (16) Migraine headache: Status: Acute Code(s): G43.909 - Migraine, unspecified, not intractable, without status migrainosus (17) Essential (primary) hypertension: Status: Acute Code(s): I10 - Essential (primary) hypertension Plan 53 year old female with below past medical history hospitalized for elective right total hip arthroplasty 12/04/[address] Dill, admitted to TCU with debility, here for rehabilitation, strengthening, prior to discharge home alone. * Debility - PT/OT. * Pain - Tylenol 1000mg q8, Butrans 5mcg 1 patch td qweek, Tramadol 50mg bid, Oxycodone 5mg q4 prn pain (1-10). * Bowel - senna/colace 2 tablets bid, Dulcolax 10mg po daily prn. * Adult immunization - Administer pneumonia vaccine, covid vaccine, flu vaccine as appropriate. * DVT prophylaxis - Aspirin 81mg bid thru 01/04/2024. * Meniere's disease - Amiloride 5mg daily, Meclizine 12.5mg q6 prn. * Vitamin C deficiency - Vitamin C 500mg bidcm. * Hyperlipidemia - Atorvastatin 20mg qhs. * s/p right total hip arthroplasty - Doxycycline 100mg bid thru 12/13/2023 prophylaxis. * Allergic rhinitis - Loratadine 10mg daily, Flonase 1 spray bid prn * Neuropathic pain - Gabapentin 600mg bid. * Depression - Venlafaxine XR 75mg daily, Lamictal 100mg daily, stable chronic salvage determiner use, GDR not recommended. * Hypothyroidism - Levothyroxine 88mcg daily. * Nutrition - MVI 1 tablet daily. * Nausea - Zofran 4mg q8 prn. * GERD - Pantoprazole 40mg daily. * Hypokalemia - KCL 20meq tidcm. * Muscle spasm - Tizanidine 4mg qhs prn. * Migraine - Topamax 100mg bid, Maxalt 10mg po x 1, then prn. * Hypertension - Maxzide 37.5mg/25mg daily. Medications at Discharge Home Medications amiloride 5 mg tablet 1 tab PO DAILY MENERIES 03/27/20 omeprazole 40 mg capsule,delayed release 40 mg PO DAILY PER DR 08/17/21 ondansetron HCl 4 mg tablet 4 mg PO Q8H PRN NAUSEA 08/17/21 topiramate 100 mg tablet 100 mg PO BID MIGRAINES 08/17/21 fluticasone propionate 50 mcg/actuation nasal spray,suspension 1 spray DAILY PRNALLERGIES 10/21/21 venlafaxine 75 mg capsule,extended release 24 hr (Effexor XR) 75 mg PO DAILY PERDR 12/27/21 rosuvastatin 10 mg tablet 10 mg PO DAILY PER ORDE 01/24/23 levothyroxine 88 mcg tablet (Levoxyl) 88 mcg PO DAILY Thyroid 02/20/23 potassium chloride 20 mEq tablet,extended release 20 meq PO TID PER DR 02/20/23 triamterene 37.5 mg-hydrochlorothiazide 25 mg tablet 1 tab PO DAILY PER DR 02/20/23 cetirizine 10 mg tablet (Zyrtec) 10 mg PO DAILY allergy symptoms 03/08/23 lamotrigine 100 mg tablet 100 mg PO DAILY PER DR 03/08/23 multivitamin (Daily Multi-Vitamin tablet) 1 tab PO DAILY PER DR 08/20/23 acetaminophen 500 mg tablet 1,000 mg (2 x 500 mg) PO Q8 Pain #0 tabs 09/12/23 oxycodone 5 mg tablet 5 mg PO Q4H PRN Pain Score 4-10 09/25/23 ascorbic acid (vitamin C) 500 mg tablet (Vitamin C) 500 mg PO BIDCM supplement 12/08/23 aspirin 81 mg tablet,delayed release (Enteric Coated Aspirin) 81 mg PO BID per doc 12/08/23 buprenorphine 5 mcg/hour weekly transdermal patch 1 patch topical QWEEK pain 12/08/23 doxycycline monohydrate 100 mg capsule 100 mg PO BID infection prevention 12/08/23 gabapentin 600 mg tablet 600 mg PO BID neuropathy 12/08/23 meclizine 25 mg tablet 12.5 mg PO TID PRN dizziness 12/08/23 sennosides 8.6 mg tablet (senna) 17.2 mg PO QHS stool softener 12/08/23 tizanidine 4 mg tablet 4 mg PO QHS muscle relaxant 12/08/23 tramadol 50 mg tablet 50 mg PO BID pain 12/08/23 acetaminophen 500 mg tablet 1,000 mg (2 x 500 mg) PO Q8 #0 tabs 12/18/23 amiloride 5 mg tablet 5 mg PO DAILY #0 tabs 12/18/23 ascorbic acid (vitamin C) 500 mg tablet 500 mg PO BIDCM #0 tabs 12/18/23 aspirin 81 mg tablet,delayed release 81 mg PO BIDCM 14 days #0 tabs 12/18/23 buprenorphine 5 mcg/hour weekly transdermal patch 1 patch transdermal Q7D #0 ea 12/18/23 fluticasone propionate 50 mcg/actuation nasal spray,suspension 1 spray NASAL BIDPRN PRN SINUS CONGESTION #0 grams 12/18/23 gabapentin 600 mg tablet 600 mg PO BID #0 tabs 12/18/23 lamotrigine 100 mg tablet 100 mg PO DAILY #0 tabs 12/18/23 levothyroxine 88 mcg tablet 88 mcg PO DAILY@0600 #0 tabs 12/18/23 meclizine 12.5 mg tablet 12.5 mg PO Q6H PRN PRN Vertigo #0 tabs 12/18/23 multivitamin 1 tab PO DAILYCM #0 tabs 12/18/23 nicotine 7 mg/24 hr daily transdermal patch 7 mg transdermal DAILY@0600 30 days #30 ea 12/18/23 oxycodone 5 mg tablet 5 mg PO Q4H PRN PRN Pain Score 1-10 #0 tabs 12/18/23 pantoprazole 40 mg tablet,delayed release 40 mg PO 0600 #0 tabs 12/18/23 potassium chloride 20 mEq tablet,extended release(part/cryst) 20 meq PO TIDCM 30days #90 tabs 12/18/23 tizanidine 2 mg tablet 4 mg (2 x 2 mg) PO TID #0 tabs 12/18/23 topiramate 100 mg tablet 100 mg PO BID #0 tabs 12/18/23 tramadol 50 mg tablet 50 mg PO BID #0 tabs 12/18/23 triamterene 37.5 mg-hydrochlorothiazide 25 mg capsule 1 cap PO DAILY #0 caps 12/18/23 venlafaxine 75 mg capsule,extended release 24 hr 75 mg PO DAILY #0 caps 12/18/23 Hospital Course Operations total hip replacement (Right.) Procedures None Summary of Care Provided Minutes Spent on Discharge: 35 Hospital Course: 53 year old female with below past medical history hospitalized for elective right total hip arthroplasty 12/04/[address] Dill, admitted to TCU with debility, here for rehabilitation, strengthening, prior to discharge home alone. Discharge home alone 12/21/2023, [facility] PT/OT/SN/OUTSOLE COMPRESSOR. Physical Exam Const alert General Appearance: cooperative HEENT normocephalic Eyes PERRL and EOMs intact bilaterally Neck supple, no JVD and no carotid bruits Resp normal respiratory effort, normal air movement and clear to auscultation bilaterally Cardio regular rate and regular rhythm GI normal to inspection, nondistended, normoactive bowel sounds, non-tender and non-distended Extremity normal capillary refill General Extremity: Negative for edema Skin no rashes or lesions noted General Skin Exam: no breakdown Psych affect normal Appearance: appropriate Weight / BMI Weight Weight: 100.335 kg Body Mass Index (BMI) 36.8 ABG / Lab / Microbiology Data 12/15/23 07:25 12/15/23 07:25 D/C Instructions Discharge Diet: No restrictions Discharge Activity: Return to Normal Activity, May Shower and Use Walker Weight Bearing Status: Weight bearing as tolerated Call your doctor if you observe: Fever of 101 or Higher, Inability to urinate, Inability to have a bowel movement, Shortness of breath, Dizziness, Fainting spells, Swelling in the ankles, Chest pain and Uncontrolled pain Additional Instructions: Discharge home alone 12/21/2023, [facility] PT/OT/SN/OUTSOLE COMPRESSOR. Please Follow Up With: Dr. Dill When: As scheduled. Meaningful Use Info Meaningful Use Meaningful Use Diagnoses (Choose all that apply): None applicable Ischemic Stroke Statin Dosing Therapy Reference: STATIN DOSE THERAPY REFERENCE: * Patients > 75 years receive moderate or high dose statin therapy. * Patients 75 years or YOUNGER should receive HIGH intensity statin dose unless contraindicated. You will be required to document reason for non-treatment if statin daily dose does not meet guidelines. HIGH DOSE STATIN THERAPY DAILY Atorvastatin > than or = to 40 mg Rosuvastatin > than or = to 20 mg Amlodipine + Atorvastatin > than or = to 2.5/40 mg Ezetimibe + Simvastatin 10/80 mg Simvastatin 80mg Discharge Plan Admission Admit Date/Time: 12/07/23 21:20 Primary Reason for Your Visit: Debility. Attending Provider: Ky Henderson Chi Primary Care Provider: Care Physician,No Primary Instructions Additional Instructions / Restrictions: Discharge home alone 12/21/2023, [facility] PT/OT/SN/OUTSOLE COMPRESSOR. Discharge Orders/Prescriptions Prescriptions: New acetaminophen 500 mg Tablet 1,000 mg PO Q8 Qty: 0 0RF amiloride 5 mg Tablet 5 mg PO DAILY Qty: 0 0RF ascorbic acid (vitamin C) 500 mg Tablet 500 mg PO BIDCM Qty: 0 0RF aspirin 81 mg Tablet,Delayed Release (Dr/Ec) 81 mg PO BIDCM 14 Days Qty: 0 0RF multivitamin Tablet 1 tab PO DAILYCM Qty: 0 0RF gabapentin 600 mg Tablet 600 mg PO BID Qty: 0 0RF meclizine 12.5 mg Tablet 12.5 mg PO Q6H PRN PRN (Reason: Vertigo) Qty: 0 0RF levothyroxine 88 mcg Tablet 88 mcg PO DAILY@0600 Qty: 0 0RF fluticasone propionate 50 mcg/actuation [place],Suspension 1 spray NASAL BID PRN PRN (Reason: SINUS CONGESTION) Qty: 0 0RF lamotrigine 100 mg Tablet 100 mg PO DAILY Qty: 0 0RF buprenorphine 5 mcg/hour Patch Weekly 1 patch transdermal Q7D Qty: 0 0RF nicotine 7 mg/24 hr Patch 24 Hour 7 mg transdermal DAILY@0600 30 Days Qty: 30 0RF venlafaxine 75 mg Capsule,Extended Release 24hr 75 mg PO DAILY Qty: 0 0RF tizanidine 2 mg Tablet 4 mg PO TID Qty: 0 0RF tramadol 50 mg Tablet 50 mg PO BID Qty: 0 0RF triamterene-hydrochlorothiazid 37.5-25 mg Capsule 1 cap PO DAILY Qty: 0 0RF potassium chloride 20 mEq Tablet,Er Particles/Crystals 20 meq PO TIDCM 30 Days Qty: 90 0RF pantoprazole 40 mg Tablet,Delayed Release (Dr/Ec) 40 mg PO 0600 Qty: 0 0RF topiramate 100 mg Tablet 100 mg PO BID Qty: 0 0RF oxycodone 5 mg Tablet 5 mg PO Q4H PRN PRN (Reason: Pain Score 1-10) Qty: 0 0RF Continued rosuvastatin 10 mg tablet 10 mg PO DAILY No Action topiramate 100 mg tablet 100 mg PO BID omeprazole 40 mg capsule,delayed release(DR/EC) 40 mg PO DAILY ondansetron HCl 4 mg tablet 4 mg PO Q8H PRN (Reason: NAUSEA) cetirizine [Zyrtec] 10 mg tablet 10 mg PO DAILY lamotrigine 100 mg tablet 100 mg PO DAILY fluticasone propionate 50 mcg/actuation spray,suspension 1 spray NASAL DAILY PRN (Reason: ALLERGIES) amiloride 5 mg tablet 1 tab PO DAILY venlafaxine [Effexor XR] 75 mg Capsule,Extended Release 24hr 75 mg PO DAILY levothyroxine [Levoxyl] 88 mcg tablet 88 mcg PO DAILY potassium chloride 20 mEq tablet extended release 20 meq PO TID triamterene-hydrochlorothiazid 37.5-25 mg tablet 1 tab PO DAILY multivitamin [Daily Multi-Vitamin] Tablet 1 tab PO DAILY Patient Comments: ASKING AT APPT ON 08/24 ABOUT STOPPING acetaminophen 500 mg Tablet 1,000 mg PO Q8 Qty: 0 0RF oxycodone 5 mg Tablet 5 mg PO Q4H PRN (Reason: Pain Score 4-10) Rx Instructions: for up to 7 days starting 12/07/23. doxycycline monohydrate 100 mg capsule 100 mg PO BID Rx Instructions: 11 doses. tramadol 50 mg tablet 50 mg PO BID tizanidine 4 mg tablet 4 mg PO QHS buprenorphine 5 mcg/hour patch weekly 1 patch topical QWEEK sennosides [senna] 8.6 mg tablet 17.2 mg PO QHS aspirin [Enteric Coated Aspirin] 81 mg tablet,delayed release (DR/EC) 81 mg PO BID ascorbic acid (vitamin C) [Vitamin C] 500 mg tablet 500 mg PO BIDCM gabapentin 600 mg Tablet 600 mg PO BID meclizine 25 mg tablet 12.5 mg PO TID PRN (Reason: dizziness) Referrals / Follow Up: Care Physician,No Primary [Primary Care Provider] - Disposition Disposition (needs filled in before D/C Order can be placed): Home Health Service 12/18/231917 <Electronically signed by Ky Henderson MD> Cosigner Signature (if applicable): CC: Dr. Ky Henderson MD; No Primary Care Physician~ Signed [facility] Work Phone: [phone] Progress note Author [facility] December 10, 2023 11:58am Note Date/Time December 10, 2023 9:5 9am [facility] Medical Records Department [address] [place] [address] Progress Note - Pharmacy 12/10/23 0951 MR#: [id number] Acct: [id number] Name: BRUNO PATTERSON Rep #:[id number] : 1970 53 From: Jose David Dowd PCP: Care Physician,No Primary Status :ADM IN Location: [place] [address] Documented by User: Jose David Dowd 12/10/23 10:23 TCU RX Drug Regimen Review Subjective/Objective Subjective/Objective: Subjective: TCU admission note. 53 year old female with below past medical history hospitalized for elective right total hip arthroplasty 12/04/[address] Dill, admitted to TCU with debility, here for rehabilitation, strengthening,prior to discharge home alone. Objective: Allergies shellfish derived Allergy (Severe, Verified 11/14/23 12:12) vomitting Penicillins Allergy (Verified 11/14/23 12:12) Hives citric acid Adverse Reaction (Severe, Verified 11/14/23 12:12) wears dowm linning of mouth blisters in mouth duloxetine [From Cymbalta] Adverse Reaction (Intermediate, Verified 11/14/23 12:12) Other weight gain gluten Adverse Reaction (Intermediate, Verified 11/14/23 12:12) stomach discomfort Current Medications Generic Name Dose Route Start Last Admin Trade Name Freq PRN Reason Stop Dose Admin Acetaminophen 1,000 mg 12/08/23 00:30 12/10/23 06:34 Acetaminophen 500 Mg Tablet PO 1,000 mg Q8 LINETTE Administration Amiloride HCl 5 mg 12/08/23 10:00 12/10/23 08:54 Amiloride Hcl 5 Mg Tablet PO 5 mg DAILY LINETTE Administration Ascorbic Acid 500 mg 12/08/23 08:00 12/10/23 08:55 Ascorbic Acid 500 Mg Tablet PO 12/20/23 08:00 500 mg BIDCM LINETTE Administration Aspirin 81 mg 12/08/23 08:00 12/10/23 08:54 Aspirin E.C. 81 Mg Tablet PO 01/04/24 17:01 81 mg BIDCM LINETTE Administration Atorvastatin Calcium 20 mg 12/08/23 22:00 12/09/23 21:42 Atorvastatin Calcium 20 Mg Tablet PO 20 mg 2200 LINETTE Administration Bisacodyl 10 mg 12/08/23 10:59 12/09/23 09:53 Bisacodyl 5 Mg Tablet PO 10 mg DAILY PRN Administration Constipation Buprenorphine 1 patch 12/11/23 10:00 Buprenorphine 5 Mcg Patch.Tdwk TD Q7D [facility] Doxycycline Monohydrate 100 mg 12/08/23 10:00 12/10/23 08:54 Doxycycline 100 Mg Capsule PO 12/13/23 10:01 100 mg BID LINETTE Administration Fluticasone Propionate 1 spray 12/07/23 22:02 Fluticasone 0.05% 1 [place] Nasal.Sry NASAL BID PRN PRN SINUS CONGESTION Gabapentin 600 mg 12/07/23 22:45 12/10/23 08:54 Gabapentin 600 Mg Tablet PO 600 mg BID LINETTE Administration Sodium Chloride 250 mls @ 15 mls/hr 12/07/23 21:36 IV .[id number] PRN Additional IVPB Infusion Sodium Chloride 250 mls @ 15 mls/hr 12/07/23 21:36 IV .[id number] PRN Saline Flush Lamotrigine 100 mg 12/08/23 10:00 12/10/23 08:54 Lamotrigine 100 Mg Tablet PO 100 mg DAILY LINETTE Administration Levothyroxine Sodium 88 mcg 12/08/23 06:00 12/10/23 06:34 Levothyroxine 88 Mcg Tablet PO 88 mcg DAILY@0600 LINETTE Administration Loratadine 10 mg 12/08/23 10:00 12/10/23 08:54 Loratadine 10 Mg Tablet PO 10 mg DAILY LINETTE Administration Meclizine HCl 12.5 mg 12/07/23 22:07 Meclizine 12.5 Mg Tablet PO Q6H PRN PRN VERTIGO Multivitamins 1 tablet 12/08/23 08:00 12/10/23 08:54 Multivitamins,Therapeutic Tablet PO 1 tablet DAILYCM LINETTE Administration Ondansetron HCl 4 mg 12/07/23 22:12 Ondansetron Odt 4 Mg Tablet PO Q8H PRN PRN NAUSEA/VOMITING Oxycodone HCl 5 mg 12/08/23 00:50 12/10/23 04:21 Oxycodone 5 Mg Tablet PO 5 mg Q4H PRN PRN Administration Pain Score 1-10 Pantoprazole Sodium 40 mg 12/08/23 06:30 12/10/23 06:34 Pantoprazole Sodium 40 Mg Tablet PO 40 mg 0600 LINETTE Administration Potassium Chloride 20 meq 12/08/23 07:45 12/10/23 08:54 Potassium Chloride Oral Tablet 20 Meq PO 20 meq TIDCM LINETTE Administration Rizatriptan Benzoate 10 mg 12/10/23 10:00 Rizatriptan Benzoate 10 Mg Tablet PO X1 PRN MIGRAINE SYMPTOMS Senna/Docusate Sodium 2 tablet 12/08/23 11:00 12/10/23 08:53 Senna/Docusate Sodium 1 Tablet PO 2 tablet BID LINETTE Administration Sodium Chloride 10 - 40 ml 12/07/23 21:36 12/08/23 00:54 0.9% Saline Lock 10 Ml Syringe IV 10 ml UD PRN Administration SALINE FLUSH Tizanidine HCl 4 mg 12/07/23 22:34 12/09/23 20:21 Tizanidine Hcl 2 Mg Tablet PO 4 mg QHS PRN Administration MUSCLE SPASM Topiramate 100 mg 12/07/23 22:45 12/10/23 08:55 Topiramate 100 Mg Tablet PO 100 mg BID LINETTE Administration Tramadol HCl 50 mg 12/07/23 22:45 12/10/23 09:00 Tramadol 50 Mg Tablet PO 50 mg BID LINETTE Administration Triamterene/Hydrochlorothiazide 1 cap 12/08/23 10:00 12/10/23 08:54 Triamterene 37.5mg/Hctz 25mg Capsule PO 1 cap DAILY LINETTE Administration Protocol Tuberculin PPD 0.1 ml 12/15/23 10:00 Tuberculin,Purif.Prot.Deriv. 50 Tu/Ml Vial ID 12/15/23 10:01 X1 ONE Venlafaxine HCl 75 mg 12/08/23 10:00 12/10/23 08:54 Venlafaxine Xr 75 Mg Capsule PO 75 mg DAILY LINETTE Administration Problem List (Updated 12/08/23 @ 10:[address] Ky Henderson MD) Essential (primary) hypertension (Acute) Nausea (Acute) Muscle spasm (Acute) Vitamin D deficiency (Acute) Status post total hip replacement, right (Acute) Migraine headache (Acute) Hypothyroidism (Acute) Hyperlipidemia (Acute) Depression (Acute) Allergic rhinitis (Acute) GERD (gastroesophageal reflux disease) (Acute) Neuropathic pain (Acute) Osteoarthritis (Acute) Debility (Acute) Degenerative joint disease of right hip (Acute) M?ni?re's disease (Chronic) Hypokalemia (Acute) Vital Signs Temp Pulse Resp BP Pulse Ox O2 Del Method 97.3 F L 76 17 128/73 H 97 Room Air 12/09/23 09:39 12/10/23 09:01 12/09/23 09:39 12/10/23 09:01 12/09/23 09:39 12/09/23 14:42 Oxygen Delivery Method Room Air Weight: 102.058 kg Body Mass Index (BMI) 37.4 Sodium 139 mmol/L (136-145) 12/08/23 06:39 Potassium 3.8 mmol/L (3.5-5.1) 12/08/23 06:39 Chloride 113 mmol/L (98-107) H 12/08/23 06:39 Carbon Dioxide 26.0 mmol/L (21.0-32.0) 12/08/23 06:39 Anion Gap 0 (5-15) L 12/08/23 06:39 BUN 18 mg/dL (7-18) 12/08/23 06:39 Creatinine 0.67 mg/dL (0.55-1.02) 12/08/23 06:39 Est GFR (MDRD) Af Amer 118 mL/min (>60) 12/08/23 06:39 Est GFR (MDRD) Non-Af 97 mL/min (>60) 12/08/23 06:39 BUN/Creatinine Ratio 26.7 RATIO (10-20) H 12/08/23 06:39 Glucose 94 mg/dL (74-106) 12/08/23 06:39 Assessment/Plan: 1. Pain: acetaminophen 1000 mg PO Q8H, buprenorphine 5 mcg patch topically Q7D, Tramadol 50 mg PO BID, oxycodone 5 mg PO Q4H PRN pain (1-10). The patient has required 10 doses of PRN oxycodone so far this admission. Please continue to monitor for pain levels, LFTs (AST/ALT = 33/51 U/L on 09/16/23), for constipation,for respiratory depression, dizziness/drowsiness, syncope/ataxia/falls, renal function (serum creatinine = 0.67 mg/dL with creatinine clearance ~ 115 mL/min on 12/08/23) and seizures. 2. Bowel: senna/docusate 2 tablets PO BID, bisacodyl 10 mg PO daily PRN constipation. The patient has required 2 doses of PRN bisacodyl so far this admission, and the patient's last bowel movement was documented as 12/03/23. Please continue to monitor for diarrhea, constipation, and PRN medication administration. Please consider adding polyethylene glycol 17 grams daily as thepatient is on significant doses of opioids and requiring multiple doses of PRN bisacodyl. 3. DVT prophylaxis: aspirin 81 mg PO BID through 01/04/24. Please continue to monitor for s/s of DVT such as erythema/edema/pain in an extremity, for GI distress with aspirin administration and for bleeding/excessive bruising, for hemoglobin levels (Hgb = 8.8 g/dL on 12/08/23), and platelet count (Plt = 263 K/mm3 on 12/08/23). 4. Meniere's disease: amiloride 5 mg PO daily, meclizine 12.5 mg PO Q6H PRN vertigo. The patient has not required any doses of PRN meclizine so far this admission. Please continue to monitor for dizziness, PRN medication administration, potassium levels (K = 3.8 mmol/L on 12/08/23), renal function (serum creatinine = 0.67 mg/dL with creatinine clearance ~ 115 mL/min on 12/08/23), for s/s of dehydration, for dry mouth, drowsiness, and constipation. 5. S/P right total hip arthroplasty: doxycycline 100 mg PO BID through 12/13/23.Please continue to monitor for s/s of infection such as redness/swelling/pain at incision site, WBC count (WBC = 11.7 K/mm3 on 12/08/23),chills, fevers (recent temps = 97.3-97.6 F), and for GI distress with doxycycline administration. 6. Hyperlipidemia: atorvastatin 20 mg PO QHS. Please continue to monitor lipid levels (cholesterol = 176 mg/dL with LDL = 76 mg/dL on 08/20/23), LFTs (AST/ALT = 33/51 U/L on 09/16/23), and for myalgias. 7. Neuropathic pain: gabapentin 600 mg PO BID. Please continue to monitor for neuropathic pain, renal function (serum creatinine = 0.67 mg/dL with creatinine clearance ~ 115 mL/min on 12/08/23), for lower extremity swelling, and for drowsiness/dizziness/falls. 8. Hypothyroidism: levothyroxine 88 mcg PO daily. Please continue to monitor fors/s of hypo/hyperthyroidism and thyroid hormone levels (TSH = 1.67 uIU/mL and T4= 1.06 ng/dL on 04/25/21). 9. Allergic rhinitis: loratadine 10 mg PO daily, fluticasone nasal spray 1 sprayin each nostril BID PRN allergy symptoms. The patient has not required any PRN fluticasone nasal spray so far this admission. Please continue to monitor for allergy symptoms, renal function (serum creatinine = 0.67 mg/dL with creatinine clearance ~ 115 mL/min on 12/08/23), for dry mouth, dry eyes, constipation, and nose bleeds. 10. GERD: pantoprazole 40 mg PO daily. Please continue to monitor for s/s of GERD, for diarrhea that could indicate clostridium difficile infection, and for s/s of bone resorption such as fractures. 11. Migraine: topiramate 100 mg PO BID, rizatriptan 10 mg PO PRN migraine. The patient has not required any PRN rizatriptan so far this admission. Please continue to monitor for s/s of migraines, PRN medication usage, bicarbonate levels (bicarb = 26.0 mmol/L on 12/08/23), ammonia levels (no recent ammonia levels), abdominal pain, diarrhea, anorexia, altered taste, nausea, drowsiness and dizziness. 12. Hypertension: triamterene/hydrochlorothiazide 37.5/25 mg PO daily. Please continue to monitor blood pressures (recent range = 99-128/66-73 mmHg), renal function (serum creatinine = 0.67 mg/dL with creatinine clearance ~ 115 mL/min on 12/08/23), potassium levels (K = 3.8 mmol/L on 12/08/23), and sodium levels (Na= 139 mmol/L on 12/08/23). 13. Hypokalemia: potassium chloride 20 mEq Po TID with meals. Please continue tomonitor potassium levels (K = 3.8 mmol/L on 12/08/23), and for GI distress with potassium administration. 14. Nausea: ondansetron 4 mg PO Q8H PRN nausea. The patient has not required anyPRN doses of ondansetron so far this admission. Please continue to monitor for PRN medication administration as well as for nausea. 15. Muscle spasm: tizanidine 4 mg PO QHS PRN muscle spasms. The patient has required 3 doses of PRN tizanidine so far this admission. Please continue to monitor for PRN medication administration, for muscle spasms, for drowsiness/dizziness, for dry mouth, constipation, and dry eyes. 16. Nutrition: multivitamin 1 tablet PO daily. Please continue to monitor nutritional status. 17. Vitamin C deficiency: ascorbic acid 500 mg PO BID with meals. Please continue to monitor for s/s of vitamin C deficiency. Assessment/Plan for indications treated with psychotropic medications: 1. Depression: venlafaxine XR 75 mg PO daily, lamotrigine 100 mg PO daily. Please see provider note regarding stable chronic long-term therapy GDR not recommended. Please continue to monitor for s/s of depression, for SI, for nausea, dry mouth, drowsiness/dizziness, insomnia, diarrhea, for rash, constipation, and abnormal dreams. Medical chart and medication regimen reviewed. The following medication irregularities or issues were identified: 1. Bowel: senna/docusate 2 tablets PO BID, bisacodyl 10 mg PO daily PRN constipation. Please consider adding polyethylene glycol 17 grams daily as the patient is on significant doses of opioids and requiring multiple doses of PRN bisacodyl. Date Date of Note:: 12/10/23 Documented by User: Dr. Ky Henderson MD 12/10/23 11:58 TCU RX Drug Regimen Review Provider Comments Provider responsibility Provider Comments to Recommendations by Pharmacy: Agree 12/10/23 1023 <Electronically signed by Jose David Dowd> Jose David Dowd Cosignperlita Signature (if applicable): 12/10/23 1158 <Electronically signed by Ky Henderson MD> CC: ~ Signed [facility] Work Phone: [phone] 185-838004-29-2024 History and physical note Author [place] December 10, 2023 7:35am Note Date/Time December 08, 2023 10: 40am [facility] Medical Records Department [address] [place] [id number] History & Physical Exam 12/08/23 1037 MR#: [id number] Acct: [id number] Name: BRUNO PATTERSON Rep #:[id number] : 1970 53 From: Ky Henderson MD PCP: Care Physician,No Primary Status :ADM IN [id number] HPI - General General Date of Admission: 12/07/23 Date of Service: 12/10/23 Chief Complaint: Here for rehabilitation. HPI Narrative BRUNO PATTERSON, is a 53 Female who presents with followin11/14/2023 [facility] ED Low back pain, left lower back. Discharge home after Toradol, Norflex, Morphine. 11/19/2023 [facility] preoperative evaluation. Migraine stable on Topamax, Maxalt prn. Low back pain with left sciatica s/p surgery 08/2023 controlled with spinal cord stimulator, gabapentin. Dr. Jin for chronic low back pain, Tramadol, Butrans patch, Zanaflex, Gabapentin, Celebrex, Tylenol. 12/01/2023 Dr. Lipscomb (virtual visit) recommended patient proceed with right totalhip arthroplasty due to severe pain from ostearthritis right hip. Discussed with Dr. Dill (orthopedic hip surgeon). 12/04/2023 Admit to [facility]. 12/04/2023 Dr. Dill performed right total hip arthroplasty. 12/05/2023 [facility] RLE, [facility] LLE. PT/OT. Pain control with medications. Aspirin 81mg twice daily x 28 days ( 01/01/2024) for DVT prophylaxis. 12/07/2023 Admit to TCU with debility, here for rehablitation, strengthening, prior to discharge home alone. [facility] Medical History (Updated 12/08/23 @ 10:[address] Ky Henderson MD) Acute maxillary sinusitis, unspecified Ambulates with cane Anemia Anxiety Arthritis Back problem Depression Dietary restriction Easy bruising Former smoker Gastric reflux Hearing problem History of edema History of pain when walking History of ulceration Hives Hypokalemia IBS (irritable bowel syndrome) Injury of head and neck Leg cramps Loss of hearing Menieres disease Migraine headache Neuropathy Osteoarthritis Pain Pneumonia Seasonal allergies Thyroid disease Ulcer Vertigo Vision problem Vitamin deficiency Wears glasses Home Medications amiloride 5 mg tablet 1 tab PO DAILY MENERIES 03/27/20 [History Last Taken 09/02/23] omeprazole 40 mg capsule,delayed release 40 mg PO DAILY PER 08/17/21 [History Last Taken 09/12/23 08:00] ondansetron HCl 4 mg tablet 4 mg PO Q8H PRN NAUSEA 08/17/21 [History Last Taken Unknown] topiramate 100 mg tablet 100 mg PO BID MIGRAINES 08/17/21 [History Last Taken 12/07/23] fluticasone propionate 50 mcg/actuation nasal spray,suspension 1 spray DAILY PRNALLERGIES 10/21/21 [History Last Taken Unknown] venlafaxine 75 mg capsule,extended release 24 hr (Effexor XR) 75 mg PO DAILY PERDR 12/27/21 [History Last Taken 12/07/23] rosuvastatin 10 mg tablet 10 mg PO DAILY PER DR REAGAN 01/24/23 [History Last Taken 12/07/23] levothyroxine 88 mcg tablet (Levoxyl) 88 mcg PO DAILY Thyroid 02/20/23 [History Last Taken 09/12/23 05:00] potassium chloride 20 mEq tablet,extended release 20 meq PO TID PER DR 02/20/23 [History Last Taken 09/02/23] triamterene 37.5 mg-hydrochlorothiazide 25 mg tablet 1 tab PO DAILY PER DR 02/20/23 [History Last Taken 09/02/23] cetirizine 10 mg tablet (Zyrtec) 10 mg PO DAILY allergy symptoms 03/08/23 [History Last Taken 09/02/23] lamotrigine 100 mg tablet 100 mg PO DAILY PER DR 03/08/23 [History Last Taken 12/07/23] multivitamin (Daily Multi-Vitamin tablet) 1 tab PO DAILY PER DR 08/20/23 [History Last Taken 09/02/23] acetaminophen 500 mg tablet 1,000 mg (2 x 500 mg) PO Q8 Pain #0 tabs 09/12/23 [Rx Last Taken 12/07/23] oxycodone 5 mg tablet 5 mg PO Q4H PRN Pain Score 4-10 09/25/23 [History Last Taken Unknown] ascorbic acid (vitamin C) 500 mg tablet (Vitamin C) 500 mg PO BIDCM supplement 12/08/23 [History Last Taken Unknown] aspirin 81 mg tablet,delayed release (Enteric Coated Aspirin) 81 mg PO BID per doc 12/08/23 [History Last Taken Unknown] buprenorphine 5 mcg/hour weekly transdermal patch 1 patch topical QWEEK pain 12/08/23 [History Last Taken 12/04/23] doxycycline monohydrate 100 mg capsule 100 mg PO BID infection prevention 12/08/23 [History Last Taken 12/07/23] gabapentin 600 mg tablet 600 mg PO BID neuropathy 12/08/23 [History Last Taken Unknown] meclizine 25 mg tablet 12.5 mg PO TID PRN dizziness 12/08/23 [History Last Taken Unknown] sennosides 8.6 mg tablet (senna) 17.2 mg PO QHS stool softener 12/08/23 [History Last Taken Unknown] tizanidine 4 mg tablet 4 mg PO QHS muscle relaxant 12/08/23 [History Last Taken Unknown] tramadol 50 mg tablet 50 mg PO BID pain 12/08/23 [History Last Taken Unknown] Allergy/AdvReac Type Severity Reaction Status Date / Time shellfish derived Allergy Severe vomitting Verified 11/14/23 12:12 Penicillins Allergy Hives Verified 11/14/23 12:12 citric acid AdvReac Severe wears dowm Verified 11/14/23 12:12 linning of mouth duloxetine [From Cymbalta] AdvReac Intermediate Other Verified 11/14/23 12:12 gluten AdvReac Intermediate stomach Verified 11/14/23 12:12 discomfort Family History Other Alcohol abuse Anxiety Arthritis Autoimmune disease Bowel disease Colon cancer Depression Diabetes Heart disease High cholesterol Hypertension Mental disorder Psychiatric care Severe allergic reaction Thyroid disorder Surgical History (Updated 12/08/23 @ 10:[address] Ky Henderson MD) H/O total hip arthroplasty History of total right hip arthroplasty S/P insertion of spinal cord stimulator Social History household members: none Smoking Status: Current every day smoker tobacco type: e-cigarettes alcohol intake: former year quit: 2015 substance use type: does not use frequency: daily ROS Constitutional Constitutional: Reports weakness; Denies chills, fever(s) or weight gain ENT HEENT: Reports headache(s); Denies nasal congestion or nasal discharge Cardiovascular Cardiovascular: Denies chest pain or palpitations Respiratory/Chest Respiratory/Chest: Denies cough, excessive phlegm production or shortness of breath with exertion Gastrointestinal Gastrointestinal: Denies abdominal pain, nausea or vomiting Genitourinary Genitourinary: Denies dysuria Musculoskeletal Musculoskeletal: Denies joint pain or joint swelling Integumentary Integumentary: Denies rash or wounds Neurologic Neurologic: Denies focal weakness, numbness or tingling Psychiatric Psychiatric: Denies anxiety, auditory hallucinations, depression, homicidal ideation or suicidal ideation Vital Signs Vital Signs Vital Signs: 12/07/23 21:32 12/07/23 21:32 Temperature 97.4 F L Temperature Source Temporal Pulse Rate 79 Pulse Rhythm Regular Pulse Strength Normal (2+) Respiratory Rate 18 Respiratory Effort Normal Non-Labored Respiratory Depth Normal Respiratory Pattern Normal Blood Pressure 110/66 Blood Pressure Mean 80 Blood Pressure Source Monitor Blood Pressure Position Semi-Fowlers Blood Pressure Location Right Arm Pulse Ox 96 Oxygen Delivery Method Room Air Room Air Weight Weight: 102.058 kg Body Mass Index (BMI) 37.4 Physical Exam Const alert General Appearance: cooperative HEENT normocephalic Eyes PERRL and EOMs intact bilaterally Neck supple, no JVD and no carotid bruits Resp normal respiratory effort, normal air movement and clear to auscultation bilaterally Cardio regular rate and regular rhythm GI normal to inspection, nondistended, normoactive bowel sounds, non-tender and non-distended Extremity normal capillary refill General Extremity: Negative for edema Skin no rashes or lesions noted General Skin Exam: no breakdown Psych affect normal Appearance: appropriate Results Lab / Micro Data 12/08/23 06:39 12/08/23 06:39 Labs: Laboratory Results - last 24 hr 12/08/23 06:39: WBC 11.7 H, RBC 3.06 L, Hgb 8.8 L, Hct 28.3 L, MCV 92.5, MCH 28.8, MCHC 31.1 L, RDW Std Deviation 51.4 H, RDW Coeff of Zoey 15.2 H, Plt Count 263, MPV 9.8, Immature Gran % (Auto) 0.500, Neut % (Auto) 70.5 H, Lymph % (Auto)16.7 L, [place] % (Auto) 6.4, Eos % (Auto) 5.2 H, Baso % (Auto) 0.7, Absolute Neuts(auto) 8.2 H, Absolute Lymphs (auto) 1.95, Nucleated RBC % 0, Sodium 139, Potassium 3.8, Chloride 113 H, Carbon Dioxide 26.0, Anion Gap 0 L, BUN 18, Creatinine 0.67, Estim Creat Clear Calc 115.01, Est GFR (MDRD) Af Amer 118, Est GFR (MDRD) Non-Af 97, BUN/Creatinine Ratio 26.7 H, Glucose 94, Calcium 8.0 L Assessment & Plan Assessment/Plan (1) Debility: (2) Degenerative joint disease of right hip: QUALIFIERS: Osteoarthritis type: primary Qualified Code(s): M16.11 - Unilateral primary osteoarthritis, right hip (3) Status post total hip replacement, right: (4) M?ni?re's disease: (5) Hyperlipidemia: (6) Osteoarthritis: (7) Vitamin D deficiency: (8) Allergic rhinitis: (9) Neuropathic pain: (10) Depression: (11) Hypothyroidism: (12) Muscle spasm: (13) Nausea: (14) GERD (gastroesophageal reflux disease): (15) Hypokalemia: (16) Migraine headache: (17) Essential (primary) hypertension: PLAN: Plan 53 year old female with below past medical history hospitalized for elective right total hip arthroplasty 12/04/[address] Dill, admitted to TCU with debility, here for rehabilitation, strengthening, prior to discharge home alone. * Debility - PT/OT. * Pain - Tylenol 1000mg q8, Butrans 5mcg 1 patch td qweek, Tramadol 50mg bid, Oxycodone 5mg q4 prn pain (1-10). * Bowel - senna/colace 2 tablets bid, Dulcolax 10mg po daily prn. * Adult immunization - Administer pneumonia vaccine, covid vaccine, flu vaccine as appropriate. * DVT prophylaxis - Aspirin 81mg bid thru 01/04/2024. * Meniere's disease - Amiloride 5mg daily, Meclizine 12.5mg q6 prn. * Vitamin C deficiency - Vitamin C 500mg bidcm. * Hyperlipidemia - Atorvastatin 20mg qhs. * s/p right total hip arthroplasty - Doxycycline 100mg bid thru 12/13/2023 prophylaxis. * Allergic rhinitis - Loratadine 10mg daily, Flonase 1 spray bid prn * Neuropathic pain - Gabapentin 600mg bid. * Depression - Venlafaxine XR 75mg daily, Lamictal 100mg daily, stable chronic snf use, GDR not recommended. * Hypothyroidism - Levothyroxine 88mcg daily. * Nutrition - MVI 1 tablet daily. * Nausea - Zofran 4mg q8 prn. * GERD - Pantoprazole 40mg daily. * Hypokalemia - KCL 20meq tidcm. * Muscle spasm - Tizanidine 4mg qhs prn. * Migraine - Topamax 100mg bid, Maxalt 10mg po x 1, then prn. * Hypertension - Maxzide 37.5mg/25mg daily. 12/10/23 0735 <Electronically signed by Ky Henderson MD> Cosigner Signature (if applicable): CC: Dr. Ky Henderson MD; No Primary Care Physician~ Signed [facility] Work Phone: [phone] 396-114904-26-2024 NoteHNO ID: [id number] Author: FRED LOPEZ RN Service: Care Management Author Type: Registered Nurse Type: Care Mgt Progress Note Filed: 12/07/2023 13:57 Note Text: CARE MANAGEMENT DISCHARGE NOTE SERVICE DATE: December 07, 2023 SERVICE TIME: 1356 Admission Date: 12/04/2023 LOS: 1 day Discharge Arrangement Discharge Arrangement: Longterm Facility Was an expedited discharge program used?: No Caregiver Assessment Caregiver is ready, willing and able to meet the patient's needs as recommended by the inter-professional team: No Caregiver needed Transportation Arrangements Transportation Arrangements: Ambulance Transportation Agency and Phone #:: [facility] [phone] Date of Trip: 12/07/23 Time of Trip: 1730 Type of Service: BLS Non-emergency Is Patient Medicaid Pending?: No Was transportation financial coverage discussed with family?: Patient [employer] Location: [place] Destination: [facility] Financial Care Management Responsibility: None Handoff Communication: Handoff to: Other Caregiver Other Caregiver Name/Phone: bedside nurse to call report to facility Discharge Information Row Name Admission (Current) from 12/04/2023 in [id number] Longterm Facility Agency [facility] -- Phone# -- Pt is medically cleared for dc to [facility] as P2P was overturned, precert approved after initial denial. BLS transport arranged for 173 via [facility]. Pt agreeable to dc plan. DC packet left at nurse's station, bedside nurse aware, to call report to facility. SIGNATURE: Fred Lopez RN PATIENT NAME: Bruno Patterson DATE: December 07, 2023 TIME: 1:56 PM CONTACT #: [phone] NoteHNO ID: [id number] Author: SUSIE MAJOR PA-C Service: Orthopaedic Surgery Author Type: Physician Image Consultant Type: Progress Notes Filed: 12/07/2023 10:32 Note Text: ORTHOPAEDIC SURGERY BRUNO PATTERSON [id number] POD# 3 CC: Doing ok ASSESSMENT: 1. S/P Right Total Hip Arthroplasty for primary OA 2. Orthopaedically stable 3. Post operative Xrays reviewed - Right hip prosthesis intact without evidence of fracture or dislocation 4. Daily labs reviewed - CBC AND BMP unchanged PLAN: 1. PT/OT - WBAT RLE, FWB LLE, walker assisted ambulation, posterior hip precautions 2. DVT prophy - ASA 81 mg BID x 28 days, SCDs while in bed, early ambulation 3. Pain control per orders AND Ice to right hip 4. Dressing - Maintain Mepilex dressing on until post op visit 5. Discharge planning - PT/OT recommending SNF. P2P done by myself this morning, approval for SNF obtained. CM setting up transport. CM following Plan of care discussed with: Provider, RN, Patient. SUBJECTIVE: Bruno Patterson is a 53 year old female who is s/p right total hip arthroplasty on 12/03/2023. Patient up to a chair with PT/OT. Patient still slow to progress with therapy. Bruno Patterson denies any new onset of chest pain, SOB, cough, nausea, vomiting, fever or chills. OBJECTIVE: BP 105/68 Pulse 76 Temp (Src) 98.1 (Oral) Resp 20 Ht 5' 5 (1.65m) Wt 221 lb 9 oz (100.5kg) SpO2 96% LMP 11/19/2022 BMI 36.87 kg/(m2). O2 Therapy: Room Air Sitting upright in chair, NAD AANDOx3 Dressing dry and intact No LE sensory deficits SILT BLE's Cap refill <3 secs LE's warm to touch Has AROM of bilat LE's, ankles, toes No surgical site hematoma or hemarthrosis No Bilat calf tenderness to manual compression BLE's Bilat calfs and thighs supple Orthopaedically Stable LABS: Hemoglobin (g/dL) Date Value 12/07/2023 9.0 11/07/2017 10.6 Hematocrit (%) Date Value 12/07/2023 28.3 11/07/2017 33.4 WBC (k/uL) Date Value 12/07/2023 12.61 11/07/2017 13.95 Glucose (mg/dL) Date Value 12/07/2023 91 02/08/2021 63 Potassium (mmol/L) Date Value 12/07/2023 3.4 02/08/2021 3.8 Sodium (mmol/L) Date Value 12/07/2023 139 02/08/2021 136 Chloride (mmol/L) Date Value 12/07/2023 109 02/08/2021 101 CO2 (mmol/L) Date Value 12/07/2023 22 02/08/2021 20 Creatinine (mg/dL) Date Value 12/07/2023 0.65 02/08/2021 0.91 BUN (mg/dL) Date Value 12/07/2023 11 02/08/2021 14 Anion Gap (mmol/L) Date Value 12/07/2023 8 02/08/2021 15 Calcium (mg/dL) Date Value 02/08/2021 9.8 Calcium, Total (mg/dL) Date Value 12/07/2023 7.9 Platelet Count Date Value Ref Range Status 12/07/2023 230 150 - 400 k/uL Final I spent a total of 20 minutes on the date of the service which included preparing to see the patient, [id number] patient care, completing clinical documentation, obtaining and/or reviewing separately obtained history, performing a medically appropriate examination, counseling and educating the patient/family/caregiver, ordering medications, tests, or procedures, communicating with other HCPs (not separately reported), independently interpreting results (not separately reported), communicating results to the patient/family/caregiver, and care coordination (not separately reported). Susie Major PA-C [phone] December 07, 2023 10:30 [facility]04-26-2024 NoteHNO ID: [id number] Author: CHRIS BENAVIDEZ, ? Service: Care Management Author Type: ? Type: Care Mgt Progress Note Filed: 12/07/2023 10:20 Note Text: [facility] PRECERT NOTE [facility] DUAL COMPLETE HMO POS SNP approved Longterm Facility for [facility]. Precert approved through 12/10. For any additional questions regarding approvals, transport or care management needs, please contact the CM assigned to this patient in the Treatment Team. SIGNATURE: Chris Benavidez DATE: December 07, 2023 TIME: 10:20 [facility]04-26-2024 NoteHNO ID: [id number] Author: ARIEL IGLESIAS PA-C Service: General Internal Medicine Author Type: Physician Image Consultant Type: Progress Notes Filed: 12/07/2023 09:52 Note Text: PROGRESS NOTE - INTERNAL MEDICINE PATIENT NAME: Bruno Patterson SERVICE DATE: 12/07/2023 ADMITTING PHYSICIAN: Simran Dill MD ASSESSMENT AND PLAN S/p Right THR on 12/04/23 ABLA Chronic back pain with spinal stimulator HTN GERD HLD Obesity Depression Hypothyroid Leukocytosis > prob stress reactive Hypokalemia PLAN: acquisition consultant(s) note(s)/labs/imaging reviewed Replace K+ Cont to work with PT Monitor bowel function Up in chair min tid Dc plans to rehab D/w ortho and RN SUBJECTIVE C/o pain this am Current Facility-Administered Medications Medication Dose Route Frequency rosuvastatin 10 mg tab(s) (CRESTOR) 10 mg ORAL DAILY triamterene-hydroCHLOROthiazide 37.5-25 mg 1 tablet (MAXZIDE-25) 1 tablet ORAL DAILY pantoprazole DR 40 mg tab(s) (PROTONIX) 40 mg ORAL DAILY (6 AM) levothyroxine 88 mcg tab(s) (SYNTHROID) 88 mcg ORAL DAILY (6 AM) lactated ringers iv infusion 75 mL/hr INTRAVENOUS CONTINUOUS morphine 2 mg injection 2 mg INTRAVENOUS q 2 H PRN oxyCODONE IR 5-10 mg tab(s) (ROXICODONE) 5-10 mg ORAL q 3 H PRN acetaminophen 325-650 mg tab(s) (TYLENOL) 325-650 mg ORAL q 4 H PRN acetaminophen 1,000 mg tab(s) (TYLENOL) 1,000 mg ORAL q 8 H aluminum-magnesium hydroxide-simethicone 200-200-20 mg/5 mL 30 mL 30 mL ORAL q 2 H PRN ferrous sulfate 325 mg tab(s) 325 mg ORAL DAILY WITH BREAKFAST ascorbic acid (vitamin C) 500 mg tab(s) (VITAMIN C) 500 mg ORAL BID w MEALS senna 17.2 mg tab(s) (SENOKOT) 17.2 mg ORAL AT BEDTIME magnesium hydroxide 400 mg/5 mL 30 mL (MOM) 30 mL ORAL DAILY PRN bisacodyl EC 10 mg tab(s) (DULCOLAX) 10 mg ORAL DAILY ondansetron 4 mg tab(s) (ZOFRAN) 4 mg ORAL q 6 H PRN Or ondansetron (PF) 4 mg injection (ZOFRAN) 4 mg INTRAVENOUS q 6 H PRN aspirin, enteric coated 81 mg tab(s) 81 mg ORAL BID NaCl 0.9% iv flush bag 20 mL INTRAVENOUS PRN buprenorphine 5 mcg/hour 1 Patch (BUTRANS) 1 Patch TRANSDERMAL 1/WK And [START ON 12/11/2023] buprenorphine - REMOVE PATCH OTHER 1/WK And buprenorphine - VERIFY PATCH OTHER q 8 H lamoTRIgine 100 mg tab(s) (LaMICtal) 100 mg ORAL DAILY gabapentin 600 mg cap(s) (NEURONTIN) 600 mg ORAL BID venlafaxine 75 mg tab(s) (EFFEXOR) 75 mg ORAL DAILY doxycycline hyclate 100 mg cap(s) (VIBRAMYCIN) 100 mg ORAL q 12 H 6a/6p methocarbamol 750 mg tab(s) (ROBAXIN) 750 mg ORAL TID PRN topiramate 100 mg tab(s) (TOPAMAX) 100 mg ORAL BID OBJECTIVE PHYSICAL EXAM: Patient Vitals for the past 24 hrs: Body mass index is 36.87 kg/m?. Patient Vitals for the past 24 hrs: BP Temp Temp src Pulse Resp SpO2 12/07/23 0846 105/68 36.7 ?C (98.1 ?F) Oral 76 20 96 % 12/06/23 2343 128/69 36.7 ?C (98.1 ?F) Oral 83 18 97 % 12/06/23 1953 139/76 37 ?C (98.6 ?F) Oral 94 18 100 % 12/06/23 1525 117/64 36.7 ?C (98.1 ?F) Oral 92 16 100 % GENERAL: lying in bed c/o pain this am SKIN: Skin color, texture, turgor fair HEENT: pupils are equal round reactive to light. External ear and nose intact. OROPHARYNX: Lips, mucosa, and tongue are fair NECK: carotid pulse normal contour, supple. Thyroid is within normal limits. LUNGS: Lungs clear anteriorly; Good diaphragmatic excursion. Chest wall: symmetrical expansion. Breast: no change CARDIAC: PMI in the 5th intercostal space 1cm lateral. S1 and S2 ABDOMEN: Abdomen soft, non-tender. BS heard. EXTREMETIES: Extremities right hip incision intact Musculoskeletal: PIP DIP knee/foot joints changes of DJD, no clubbing. Lymphnodes: neck axilla and groin not palpable. NEURO: Awake, No abnormal movement. DATA: Diagnostic tests reviewed for today's visit: CBC, Coags, BMP, Mg, Phos Recent Labs 12/07/23 0454 12/06/23 0505 12/05/23 0536 WBC 12.61* 12.48* 15.14* HB 9.0* 9.3* 9.6* HCT 28.3* 29.5* 29.9* PLT 230 214 223 NA 139 142 138 K 3.4* 3.4* 3.3* CHLOR 109* 110* 105 CO2 22 21* 21* BUN 11 9 12 CREAT 0.65 0.68 0.77 GLUC 91 94 129* CA 7.9* 7.8* 8.3* Intake/Output Summary (Last 24 hours) at 12/07/2023 0950 Last data filed at 12/07/2023 0312 Gross per 24 hour Intake 240 ml Output 1300 ml Net -1060 ml D/w Dr. berry SIGNATURE: Ariel Iglesias PA-C DATE: December 07, 2023 TIME: 9:50 [facility]04-25-2024 NoteHNO ID: [id number] Author: ARIEL IGLESIAS PA-C Service: General Internal Medicine Author Type: Physician Image Consultant Type: Progress Notes Filed: 12/06/2023 12:59 Note Text: PROGRESS NOTE - INTERNAL MEDICINE PATIENT NAME: Bruno Patterson SERVICE DATE: 12/06/2023 ADMITTING PHYSICIAN: Simran Dill MD ASSESSMENT AND PLAN S/p Right THR on 12/04/23 ABLA Chronic back pain with spinal stimulator HTN GERD HLD Obesity Depression Hypothyroid Leukocytosis > prob stress reactive Hypokalemia PLAN: acquisition consultant(s) note(s)/labs/imaging reviewed Encourage IS Awaits bowel function return Daily I/Os PT eval Up in chair tid SUBJECTIVE States still having a lot of pain issues Current Facility-Administered Medications Medication Dose Route Frequency rosuvastatin 10 mg tab(s) (CRESTOR) 10 mg ORAL DAILY triamterene-hydroCHLOROthiazide 37.5-25 mg 1 tablet (MAXZIDE-25) 1 tablet ORAL DAILY pantoprazole DR 40 mg tab(s) (PROTONIX) 40 mg ORAL DAILY (6 AM) levothyroxine 88 mcg tab(s) (SYNTHROID) 88 mcg ORAL DAILY (6 AM) lactated ringers iv infusion 75 mL/hr INTRAVENOUS CONTINUOUS morphine 2 mg injection 2 mg INTRAVENOUS q 2 H PRN oxyCODONE IR 5-10 mg tab(s) (ROXICODONE) 5-10 mg ORAL q 3 H PRN acetaminophen 325-650 mg tab(s) (TYLENOL) 325-650 mg ORAL q 4 H PRN acetaminophen 1,000 mg tab(s) (TYLENOL) 1,000 mg ORAL q 8 H aluminum-magnesium hydroxide-simethicone 200-200-20 mg/5 mL 30 mL 30 mL ORAL q 2 H PRN ferrous sulfate 325 mg tab(s) 325 mg ORAL DAILY WITH BREAKFAST ascorbic acid (vitamin C) 500 mg tab(s) (VITAMIN C) 500 mg ORAL BID w MEALS senna 17.2 mg tab(s) (SENOKOT) 17.2 mg ORAL AT BEDTIME magnesium hydroxide 400 mg/5 mL 30 mL (MOM) 30 mL ORAL DAILY PRN bisacodyl EC 10 mg tab(s) (DULCOLAX) 10 mg ORAL DAILY ondansetron 4 mg tab(s) (ZOFRAN) 4 mg ORAL q 6 H PRN Or ondansetron (PF) 4 mg injection (ZOFRAN) 4 mg INTRAVENOUS q 6 H PRN aspirin, enteric coated 81 mg tab(s) 81 mg ORAL BID NaCl 0.9% iv flush bag 20 mL INTRAVENOUS PRN buprenorphine 5 mcg/hour 1 Patch (BUTRANS) 1 Patch TRANSDERMAL 1/WK And [START ON 12/11/2023] buprenorphine - REMOVE PATCH OTHER 1/WK And buprenorphine - VERIFY PATCH OTHER q 8 H lamoTRIgine 100 mg tab(s) (LaMICtal) 100 mg ORAL DAILY gabapentin 600 mg cap(s) (NEURONTIN) 600 mg ORAL BID venlafaxine 75 mg tab(s) (EFFEXOR) 75 mg ORAL DAILY doxycycline hyclate 100 mg cap(s) (VIBRAMYCIN) 100 mg ORAL q 12 H 6a/6p methocarbamol 750 mg tab(s) (ROBAXIN) 750 mg ORAL TID PRN topiramate 100 mg tab(s) (TOPAMAX) 100 mg ORAL BID OBJECTIVE PHYSICAL EXAM: Patient Vitals for the past 24 hrs: Body mass index is 36.87 kg/m?. Patient Vitals for the past 24 hrs: BP Temp Temp src Pulse Resp SpO2 12/06/23 0824 113/66 36.4 ?C (97.5 ?F) Oral 80 18 99 % 12/06/23 0321 107/67 36.7 ?C (98.1 ?F) Oral 81 16 97 % 12/05/23 2242 112/74 -- -- -- -- -- 12/05/23 1931 131/75 36.7 ?C (98.1 ?F) Oral 91 19 100 % 12/05/23 1645 121/68 36.8 ?C (98.2 ?F) Oral 87 18 98 % GENERAL: awake comfortable NAD SKIN: Skin color, texture, turgor fair HEENT: pupils are equal round reactive to light. External ear and nose intact. OROPHARYNX: Lips, mucosa, and tongue are fair NECK: carotid pulse normal contour, supple. Thyroid is within normal limits. LUNGS: Lungs clear anteriorly; Good diaphragmatic excursion. Chest wall: symmetrical expansion. Breast: no change CARDIAC: PMI in the 5th intercostal space 1cm lateral. S1 and S2 ABDOMEN: Abdomen soft, non-tender. BS heard. EXTREMETIES: Extremities right hip incision intact Musculoskeletal: PIP DIP knee/foot joints changes of DJD, no clubbing. Lymphnodes: neck axilla and groin not palpable. NEURO: Awake, No abnormal movement. DATA: Diagnostic tests reviewed for today's visit: CBC, Coags, BMP, Mg, Phos Recent Labs 12/06/23 0505 12/05/23 0536 WBC 12.48* 15.14* HB 9.3* 9.6* HCT 29.5* 29.9* PLT 214 223 NA 142 138 K 3.4* 3.3* CHLOR 110* 105 CO2 21* 21* BUN 9 12 CREAT 0.68 0.77 GLUC 94 129* CA 7.8* 8.3* Intake/Output Summary (Last 24 hours) at 12/06/2023 1253 Last data filed at 12/05/2023 1645 Gross per 24 hour Intake 240 ml Output -- Net 240 ml D/w Dr. berry SIGNATURE: Ariel Iglesias PA-C DATE: December 06, 2023 TIME: 12:53 [facility] NoteHNO ID: [id number] Author: SUSIE MAJOR PA-C Service: Orthopaedic Surgery Author Type: Physician Image Consultant Type: Progress Notes Filed: 12/06/2023 10:52 Note Text: ORTHOPAEDIC SURGERY BRUNO PATTERSON [id number] POD# 2 CC: Pain under better control today ASSESSMENT: 1. S/P Right Total Hip Arthroplasty for primary OA 2. Orthopaedically stable 3. Post operative Xrays reviewed - Right hip prosthesis intact without evidence of fracture or dislocation 4. Daily labs reviewed - Reactive leukocytoss - WBC count trending down as expected, ABLA remains stable, BMP with hypokalemia - replaced by Internal Medicine PLAN: 1. PT/OT - WBAT RLE, FWB LLE, walker assisted ambulation, posterior hip precautions 2. DVT prophy - ASA 81 mg BID x 28 days, SCDs while in bed, early ambulation 3. Pain control per orders AND Ice to right hip 4. Dressing - Maintain Mepilex dressing on until post op visit 5. Discharge planning - PT/OT recommending SNF. Facility has accepted patient, precert initiated, await decision. CM following Plan of care discussed with: Provider, RN, Patient. SUBJECTIVE: Bruno Patterson is a 53 year old female who is s/p right total hip arthroplasty on 12/04/2023. Patient resting in bed. Pain is under better control as compared to yesterday. Bruno Patterson denies any new onset of chest pain, SOB, cough, nausea, vomiting, fever or chills. OBJECTIVE: BP 113/66 Pulse 80 Temp (Src) 97.5 (Oral) Resp 18 Ht 5' 5 (1.65m) Wt 221 lb 9 oz (100.5kg) SpO2 99% LMP 11/19/2022 BMI 36.87 kg/(m2). O2 Therapy: Room Air Resting in bed, NAD AANDOx3 Dressing dry and intact No LE sensory deficits SILT BLE's Cap refill <3 secs LE's warm to touch Has AROM of bilat LE's, ankles, toes No surgical site hematoma or hemarthrosis No Bilat calf tenderness to manual compression BLE's Bilat calfs and thighs supple Orthopaedically Stable LABS: Hemoglobin (g/dL) Date Value 12/06/2023 9.3 11/07/2017 10.6 Hematocrit (%) Date Value 12/06/2023 29.5 11/07/2017 33.4 WBC (k/uL) Date Value 12/06/2023 12.48 11/07/2017 13.95 Glucose (mg/dL) Date Value 12/06/2023 94 02/08/2021 63 Potassium (mmol/L) Date Value 12/06/2023 3.4 02/08/2021 3.8 Sodium (mmol/L) Date Value 12/06/2023 142 02/08/2021 136 Chloride (mmol/L) Date Value 12/06/2023 110 02/08/2021 101 CO2 (mmol/L) Date Value 12/06/2023 21 02/08/2021 20 Creatinine (mg/dL) Date Value 12/06/2023 0.68 02/08/2021 0.91 BUN (mg/dL) Date Value 12/06/2023 9 02/08/2021 14 Anion Gap (mmol/L) Date Value 12/06/2023 11 02/08/2021 15 Calcium (mg/dL) Date Value 02/08/2021 9.8 Calcium, Total (mg/dL) Date Value 12/06/2023 7.8 Platelet Count Date Value Ref Range Status 12/06/2023 214 150 - 400 k/uL Final I spent a total of 20 minutes on the date of the service which included preparing to see the patient, [id number] patient care, completing clinical documentation, obtaining and/or reviewing separately obtained history, performing a medically appropriate examination, counseling and educating the patient/family/caregiver, ordering medications, tests, or procedures, communicating with other HCPs (not separately reported), independently interpreting results (not separately reported), communicating results to the patient/family/caregiver, and care coordination (not separately reported). Susie Major PA-C [phone] December 06, 2023 10:49 [facility]04-25-2024 NoteHNO ID: [id number] Author: FRED LOPEZ RN Service: Care Management Author Type: Registered Nurse Type: Care Mgt Progress Note Filed: 12/06/2023 09:32 Note Text: CARE MANAGEMENT PROGRESS NOTE SERVICE DATE: 12/06/2023 SERVICE TIME: 0900 LOS: 1 day Needs Prior to Discharge: To Be Determined;Precertification;Discharge Transportation CM called global director air and climate change, Nelsy at [facility] who stated that pt has been accepted to their SNF, but she is unable to respond via allscripts, but can receive responses. [facility] tasked for precert. No PASSR required per Nelsy global director air and climate change. SIGNATURE: Fred Lopez RN PATIENT NAME: Bruno Patterson DATE: December 06, 2023 TIME: 9:30 AM PAGER/CONTACT #: [phone] NoteHNO ID: [id number] Author: ARIEL IGLESIAS PA-C Service: General Internal Medicine Author Type: Physician Image Consultant Type: Progress Notes Filed: 12/05/2023 14:56 Note Text: PROGRESS NOTE - INTERNAL MEDICINE PATIENT NAME: Bruno Patterson SERVICE DATE: 12/05/2023 ADMITTING PHYSICIAN: Simran Dill MD ASSESSMENT AND PLAN S/p Right THR on 12/04/23 ABLA Chronic back pain with spinal stimulator HTN GERD HLD Obesity Depression Hypothyroid Leukocytosis > prob stress reactive Hypokalemia PLAN: acquisition consultant(s) note(s)/labs/imaging reviewed Replace k Encourage IS Up in chair tid PT eval Monitor bowel function SUBJECTIVE Awake c/o pain Current Facility-Administered Medications Medication Dose Route Frequency rosuvastatin 10 mg tab(s) (CRESTOR) 10 mg ORAL DAILY triamterene-hydroCHLOROthiazide 37.5-25 mg 1 tablet (MAXZIDE-25) 1 tablet ORAL DAILY pantoprazole DR 40 mg tab(s) (PROTONIX) 40 mg ORAL DAILY (6 AM) levothyroxine 88 mcg tab(s) (SYNTHROID) 88 mcg ORAL DAILY (6 AM) lactated ringers iv infusion 75 mL/hr INTRAVENOUS CONTINUOUS morphine 2 mg injection 2 mg INTRAVENOUS q 2 H PRN oxyCODONE IR 5-10 mg tab(s) (ROXICODONE) 5-10 mg ORAL q 3 H PRN acetaminophen 325-650 mg tab(s) (TYLENOL) 325-650 mg ORAL q 4 H PRN acetaminophen 1,000 mg tab(s) (TYLENOL) 1,000 mg ORAL q 8 H aluminum-magnesium hydroxide-simethicone 200-200-20 mg/5 mL 30 mL 30 mL ORAL q 2 H PRN ferrous sulfate 325 mg tab(s) 325 mg ORAL DAILY WITH BREAKFAST ascorbic acid (vitamin C) 500 mg tab(s) (VITAMIN C) 500 mg ORAL BID w MEALS senna 17.2 mg tab(s) (SENOKOT) 17.2 mg ORAL AT BEDTIME magnesium hydroxide 400 mg/5 mL 30 mL (MOM) 30 mL ORAL DAILY PRN [START ON 12/06/2023] bisacodyl EC 10 mg tab(s) (DULCOLAX) 10 mg ORAL DAILY ondansetron 4 mg tab(s) (ZOFRAN) 4 mg ORAL q 6 H PRN Or ondansetron (PF) 4 mg injection (ZOFRAN) 4 mg INTRAVENOUS q 6 H PRN aspirin, enteric coated 81 mg tab(s) 81 mg ORAL BID NaCl 0.9% iv flush bag 20 mL INTRAVENOUS PRN buprenorphine 5 mcg/hour 1 Patch (BUTRANS) 1 Patch TRANSDERMAL 1/WK And [START ON 12/11/2023] buprenorphine - REMOVE PATCH OTHER 1/WK And buprenorphine - VERIFY PATCH OTHER q 8 H lamoTRIgine 100 mg tab(s) (LaMICtal) 100 mg ORAL DAILY gabapentin 600 mg cap(s) (NEURONTIN) 600 mg ORAL BID venlafaxine 75 mg tab(s) (EFFEXOR) 75 mg ORAL DAILY doxycycline hyclate 100 mg cap(s) (VIBRAMYCIN) 100 mg ORAL q 12 H 6a/6p methocarbamol 750 mg tab(s) (ROBAXIN) 750 mg ORAL TID PRN OBJECTIVE PHYSICAL EXAM: Patient Vitals for the past 24 hrs: Body mass index is 36.87 kg/m?. Patient Vitals for the past 24 hrs: BP Temp Temp src Pulse Resp SpO2 Height Weight 12/05/23 0903 123/71 37 ?C (98.6 ?F) Oral 94 21 100 % -- -- 12/05/23 0513 106/68 36.8 ?C (98.2 ?F) Oral 87 18 98 % -- -- 12/04/23 2246 103/62 -- Oral 88 16 98 % -- -- 12/04/23 1913 95/66 36.3 ?C (97.3 ?F) Oral 84 16 93 % -- -- 12/04/23 1826 -- -- -- -- -- -- 165.1 cm (5' 5) -- 12/04/23 1822 -- -- -- -- -- -- -- 100.5 kg (221 lb 9 oz) 12/04/23 1813 108/74 36.4 ?C (97.5 ?F) Oral 86 16 95 % -- -- 12/04/23 1745 130/76 -- -- 83 14 97 % -- -- 12/04/23 1730 126/75 -- -- 82 14 97 % -- -- 12/04/23 1715 131/80 -- -- 84 12 97 % -- -- 12/04/23 1700 128/71 -- -- 84 14 98 % -- -- 12/04/23 1645 149/85 -- -- 88 18 98 % -- -- 12/04/23 1630 -- -- -- 85 18 94 % -- -- 12/04/23 1615 147/92 -- -- 87 15 93 % -- -- 12/04/23 1600 111/72 -- -- 85 16 97 % -- -- 12/04/23 1545 137/84 -- -- 96 22 98 % -- -- 12/04/23 1530 147/89 -- -- 98 18 99 % -- -- 12/04/23 1515 130/79 36.7 ?C (98.1 ?F) Oral 87 12 99 % -- -- 12/04/23 1500 160/93 -- -- 87 14 99 % -- -- GENERAL: awake c/o pain SKIN: Skin color, texture, turgor fair HEENT: pupils are equal round reactive to light. External ear and nose intact. OROPHARYNX: Lips, mucosa, and tongue are fair NECK: carotid pulse normal contour, supple. Thyroid is within normal limits. LUNGS: Lungs clear anteriorly; Good diaphragmatic excursion. Chest wall: symmetrical expansion. Breast: no change CARDIAC: PMI in the 5th intercostal space 1cm lateral. S1 and S2 ABDOMEN: Abdomen soft, non-tender. BS heard. EXTREMETIES: Extremities tender right hip incision Musculoskeletal: PIP DIP knee/foot joints changes of DJD, no clubbing. Lymphnodes: neck axilla and groin not palpable. NEURO: Awake, No abnormal movement. DATA: Diagnostic tests reviewed for today's visit: CBC, Coags, BMP, Mg, Phos Recent Labs 12/05/23 0536 WBC 15.14* HB 9.6* HCT 29.9* PLT 223 NA 138 K 3.3* CHLOR 105 CO2 21* BUN 12 CREAT 0.77 GLUC 129* CA 8.3* Intake/Output Summary (Last 24 hours) at 12/05/2023 1452 Last data filed at 12/05/2023 1022 Gross per 24 hour Intake 520 ml Output 680 ml Net -160 ml D/w Dr. berry SIGNATURE: Ariel Iglesias PA-C DATE: December 05, 2023 TIME: 2:52 [facility]04-24-2024 NoteHNO ID: [id number] Author: FRED LOPEZ, RN Service: Care Management Author Type: Registered Nurse Type: Care Mgt Progress Note Filed: 12/05/2023 16:07 Note Text: CARE MANAGEMENT PROGRESS NOTE SERVICE DATE: 12/05/2023 SERVICE TIME: 1000 LOS: 1 day [place] of Choice Given: Yes Level of Care Discussed: Longterm Facility Financial Disclosure Provided: Yes Financial Disclosure Comments: via careport Provider List: Longterm Facility Provider list within the patient's requested geographic area shared with the patient/family: Yes within: 10 miles of zip code: [address] Quality and resource use metrics shared with the patient that are relevant to the patient's goals of care and treatment preferences:: Yes Metrics: Skin Integrity;Potentially Preventable 30-day Post Discharge Readmission Rates;Incidence of Major Falls CM was informed by mandeep Richards that pt will need SNF placement. CM met with pt at bedside to discuss, SNF list provided to patient, will f/u with FOC and precert. [id number] addendum: FOC's are [facility] and [facility], referrals sent, awaiting review, will need precert. SIGNATURE: Fred Lopez RN PATIENT NAME: Bruno Patterson DATE: December 05, 2023 TIME: 10:43 AM PAGER/CONTACT #: [phone] NoteHNO ID: [id number] Author: SUSIE MAJOR PA-C Service: Orthopaedic Surgery Author Type: Physician Image Consultant Type: Progress Notes Filed: 12/05/2023 10:09 Note Text: ORTHOPAEDIC SURGERY BRUNO PATTERSON [id number] POD# 1 CC: Having a lot of pain ASSESSMENT: 1. S/P Right Total Hip Arthroplasty for primary OA 2. Orthopaedically stable 3. Post operative Xrays reviewed - Right hip prosthesis intact without evidence of fracture or dislocation 4. Daily labs reviewed - CBC with reactive leukocytosis and mild ABLA (VSS); BMP pending 5. Acute post op pain - pain meds adjusted PLAN: 1. PT/OT - WBAT RLE, FWB LLE, walker assisted ambulation, posterior hip precautions 2. DVT prophy - ASA 81 mg BID x 28 days, SCDs while in bed, early ambulation 3. Pain control per orders AND Ice to right hip 4. Dressing - Maintain Mepilex dressing on until post op visit 5. Discharge planning - PT/OT recommending discharge to SNF. CM following Plan of care discussed with: Provider, RN, Patient. SUBJECTIVE: Bruno Patterosn is a 53 year old female who is s/p right total hip arthroplasty on 12/05/2023. Patient with pain at right hip. Bruno Patterson denies any new onset of chest pain, SOB, cough, nausea, vomiting, fever or chills. OBJECTIVE: BP 106/68 Pulse 87 Temp (Src) 98.2 (Oral) Resp 18 Ht 5' 5 (1.65m) Wt 221 lb 9 oz (100.5kg) SpO2 98% LMP 11/19/2022 BMI 36.87 kg/(m2). O2 Therapy: Room Air Resting in bed, NAD AANDOx3 Dressing dry and intact No LE sensory deficits SILT BLE's Cap refill <3 secs LE's warm to touch Has AROM of bilat LE's, ankles, toes No surgical site hematoma or hemarthrosis No Bilat calf tenderness to manual compression BLE's Bilat calfs and thighs supple Orthopaedically Stable LABS: Hemoglobin (g/dL) Date Value 12/05/2023 9.6 11/07/2017 10.6 Hematocrit (%) Date Value 12/05/2023 29.9 11/07/2017 33.4 WBC (k/uL) Date Value 12/05/2023 15.14 11/07/2017 13.95 Glucose (mg/dL) Date Value 11/19/2023 112 02/08/2021 63 Potassium (mmol/L) Date Value 11/19/2023 4.0 02/08/2021 3.8 Sodium (mmol/L) Date Value 11/19/2023 137 02/08/2021 136 Chloride (mmol/L) Date Value 11/19/2023 103 02/08/2021 101 CO2 (mmol/L) Date Value 11/19/2023 23 02/08/2021 20 Creatinine (mg/dL) Date Value 11/19/2023 0.84 02/08/2021 0.91 BUN (mg/dL) Date Value 11/19/2023 12 02/08/2021 14 Anion Gap (mmol/L) Date Value 11/19/2023 11 02/08/2021 15 Calcium (mg/dL) Date Value 02/08/2021 9.8 Calcium, Total (mg/dL) Date Value 11/19/2023 9.7 Platelet Count Date Value Ref Range Status 12/05/2023 223 150 - 400 k/uL Final I spent a total of 20 minutes on the date of the service which included preparing to see the patient, [id number] patient care, completing clinical documentation, obtaining and/or reviewing separately obtained history, performing a medically appropriate examination, counseling and educating the patient/family/caregiver, ordering medications, tests, or procedures, communicating with other HCPs (not separately reported), independently interpreting results (not separately reported), communicating results to the patient/family/caregiver, and care coordination (not separately reported). Susie Major PA-C [phone] December 05, 2023 8:47 [facility]04-23-2024 NoteHNO ID: [id number] Author: SERGO BRIDGES AA Service: ? Author Type: Cleaner Type: Anesthesia Procedure Notes Filed: 12/04/2023 11:38 Note Text: ANESTHESIOLOGY PROCEDURE NOTE Airway General Information Procedure Start Time/Medication Administration: 12/04/2023 11:24 AM Procedure End Time: 12/04/2023 11:38 AM Patient location during procedure: OR Consent Obtained: Yes Patient identity confirmed: arm band and patient Staffing CAA: Sergo Bridges AA Performed by: AMELIA Indications and Patient Condition Indications for airway management: anesthesia Preoxygenated: yes anesthesia circuit Patient position: sniffing Method: asleep Final Airway Details Final airway type: endotracheal airway Final Endotracheal Airway: ETT Cuffed: yes Successful intubation technique: video laryngoscopy Devices used: intubating stylet and Cage Endotracheal tube insertion site: oral Blade: Johnnie Blade size: #3 ETT size (mm): 7.0 Measured from: lips Measurement (cm): 21 Placement verified by: chest auscultation and capnometry Cormack-Lehane Classification: grade I - full view of glottis Number of attempts at approach: 1 SIGNATURE: CHRIS Perez PATIENT NAME: Bruno Patterson DATE: December 04, 2023 TIME: 11:38 AM CSN: [id number] NoteHNO ID: [id number] Author: GUERA MELCHOR PA-C Service: Anesthesiology Author Type: Physician Image Consultant Type: Progress Notes Filed: 12/04/2023 09:46 Note Text: Attestation signed by Nuno Chun DO at 12/04/2023 11:56 AM The acute pain team attempted to perform a single shot KEY block. Upon placing the ultrasound probe on the patient's R hip lightly, patient started to experience pain with the pressure. I discussed with the patient that to get an adequate ultrasound image I would need to put some pressure on the ultrasound probe. Patient continued to experience pain with the probe. Discussed with the patient that we may not be able to safely proceed with the nerve block. Patient requested us to stop the procedure. No medication was injected. Patient in stable condition. Discussed with Dr. Dill the situation. He will inject local anesthetic intra-op instead. Nuno Chun DO 11:56 AM 12/04/2023 Pt was not able to tolerate pre-op nerve block procedure Block not performed Guera Melchor [facility]04-23-2024 NoteHNO ID: [id number] Author: CHANTAL YIP LSW Service: Care Management Author Type: Reel And Rewinder Operator Type: Care Mgt Initial Assessment Filed: 12/04/2023 08:15 Note Text: CARE CONTINUUM ADVISOR ASSESSMENT PRIMARY CARE PHYSICIAN: Logan Haddad MD OR Surgery Date: 12/04/23 TCI Appointment: n/a Health Insurance: Medicaid Financial Resources: Unemployed Primary Contact: Extended Emergency Contact Information Primary Emergency Contact: Chaitanya Cabral Mobile Relation: Son Secondary Emergency Contact: CHRISVANESSA Mobile Relation: Sister Other Important Patient Contacts: None 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 Yes: Living Will Durable Power of Boat Pilot for Health Care: , copy is in chart Up to date and Valid: Yes Does Patient Have Concerns About Advance Directives? No Education Provided: No SOCIAL: Living Arrangement: Home alone Lives With: Alone, but has a sister and a son Stairs: One story home 4 stairs to enter home Do you have any concerns with food and/or affording food?: No Do you have reliable transportation to and from surgery/appointments?: Yes Medication Adherence: Do you have any concerns with your prescription medication?: No Who do you use for pharmacy?: Bedside Pre-Hospital Baseline Mental Status: Alert AND Oriented Informant: Self What is your current functional status?: Perform ADLs independently Equipment: Do you currently use any equipment at home for your medical condition or to help you get around? Cane - Straight Elevated toilet seat Tub bench/chair Walker Active Services/Needs: None Do you have a community outreach specialist contact through your insurance or [employer]?: No Has the Patient Been in a Longterm Facility in the Past 30 days? No FREEDOM OF CHOICE: Level of Care Discussed: Home Care Financial Disclosure Provided: Yes Financial Disclaimer Provided: Yes, regarding pre-cert / insurance authorization Provider List: Home Care Provider list within the patient's requested geographic area shared with the patient/family: Yes - Within [address] of [id number] [place] [address] PAC Provider Choices Collected Home Health: [facility]- pt is currently active with [facility] for an RN and OT Interventions: Discussed importance of active PCP relationship and follow up Discussed insurance risks, gaps, and programs available Discussed reliable transportation needs for surgery and follow up appointments Chantal Yip [facility]04-10-2024 Miscellaneous Notes* Telephone Encounter - Keyana Roberts LPN - 11/21/2023 10:14 AM EDT Please see scanned letter (11/19/23) from Dr. Jin's office prior to surgery. Keyana Roberts LPN * Telephone Encounter - Radha Oliveira APRN.DAY HABILITATION SPECIALIST - 11/21/2023 8:57 AM EDT Thank you Keyana! Could you please also fax to Dr. Cuevas's office so they are aware ahead of surgery? * Telephone Encounter - Keyana Roberts LPN - 11/21/2023 8:41 AM EDT Received letter back from Dr. Jin stating Continue Butrans patch as her base line. The surgeon can utilize oxycodone for 1 week after the surgery on top of the patches as he/she sees appropriate to the level of surgery. Letter scanned to [facility] through Onbase scanning. Keyana Roberts LPN documented in this encounterLicking [facility]04-08-2024 Instructions* Patient Instructions* Radha Oliveira APRN.MARYANNE - 11/19/2023 11:20 AM EDT PATIENT PREOPERATIVE INSTRUCTIONS Simran Dill MD has scheduled you for your procedure at this surgery center: [facility]: [phone] -- [address] [address]. Please read below carefully for your personalized instructions. Arrival Time for Surgery: - The Surgery Center or hospital where you are having surgery will call the afternoon before surgery (or Sunday for Sunday surgery) with a scheduled arrival time. - If you have not heard by 4 pm, please contact the surgery center above. Please be aware that emergency situations arise, which may delay or change your surgical time. If this happens, we will notify you as soon as possible and regret any inconvenience. Dietary Restrictions: - No solid food after midnight. - You may have 12 ounces of clear liquids (water, clear juices such as apple juice or gatorade, carbonated beverages (sprite/shira nayla), clear tea, black coffee, jello) until 2 hours before scheduled arrival at facility. - Do not drink any alcohol after midnight the night before your surgery. Medications: Unless instructed differently below, stay on all of your medications until your surgery. Pre-Surgery Med Instructions Medication Instructions traMADol (ULTRAM) 50 mg tablet Take the day of surgery with a small sip of water if needed buprenorphine (BUTRANS) 5 mcg/hour Discuss pre-operative plan with Dr. Basili tiZANidine HCl (ZANAFLEX) 4 mg capsule Do not take the day of surgery topiramate (TOPAMAX) 100 mg tablet Take the day of surgery with a small sip of water gabapentin (NEURONTIN) 600 mg tablet Take the day of surgery with a small sip of water levothyroxine 88 mcg cap Take the day of surgery with a small sip of water Cetirizine 10 mg cap Take the day of surgery with a small sip of water fluticasone (FLONASE) 50 mcg/actuation nasal spray Use day of surgery if needed lamoTRIgine (LAMICTAL) 100 mg tablet Take the day of surgery with a small sip of water rosuvastatin (CRESTOR) 5 mg tablet Take the day of surgery with a small sip of water triamterene-hydroCHLOROthiazide (MAXZIDE-25) 37.5-25 mg per tablet Do not take the day of surgery celecoxib (CELEBREX) 200 mg capsule Stop 7 days before surgery venlafaxine (EFFEXOR) 37.5 mg tablet Take the day of surgery with a small sip of water aMILoride (MIDAMOR) 5 mg tablet Do not take the day of surgery acetaminophen (TYLENOL) 325 mg tablet Take the day of surgery with a small sip of water if needed senna-docusate (SENOKOT-S) 8.6-50 mg per tablet Take the day of surgery with a small sip of water if needed potassium chloride ER (K-DUR, KLOR-CON) 20 mEq tablet Do not take the day of surgery ondansetron orally disintegrating (ZOFRAN ODT) 4 mg disintegrating tablet Take the day of surgery with a small sip of water if needed meclizine (ANTIVERT) 12.5 mg tab Do not take the day of surgery Omeprazole 40 mg capsule Take the day of surgery with a small sip of water Mupirocin Instructions: Apply 1/2 inch of ointment with a Q-tip to both nostrils in the morning andafternoon for 5 consecutive days before surgery. If you start any new medications after today's visit, please contact the surgeon's office. Blood Thinning Medications: - Stop NSAIDS (Ibuprofen, Advil, Aleve, Motrin, Celebrex, Mobic, etc.) 7 days before surgery, as directed by your surgeon. - Stop Aspirin 7 days before surgery, as directed by your surgeon. - Stop Vitamin E, ALL multi-vitamins, herbals and dietary supplements 14 days before surgery. - You may take Tylenol (Acetaminophen) or any of your pain medications that do not contain aspirin or NSAIDS as needed. Important Reminders: - Candy, mints, and tobacco products are NOT permitted the morning of surgery. - Hearing aids, dentures and glasses may be worn the morning of surgery. - NO jewelry, body piercings, makeup, hairpins or contacts are to be worn the day of surgery. If you develop symptoms such as a fever, cold, or flu, or have other changes to your health within TWO DAYS of scheduled surgery or the morning of surgery, please contact the surgery center above. Personal Belongings: -Please have photo ID and insurance cards. -If you do not have a copy of advance directives on file with us, please bring a copy with you on the day of surgery. - Leave ALL valuables and money at home or with family members. For Outpatient Procedures: - YOU MUST HAVE A RESPONSIBLE PORCELAIN WAXER TAKE YOU HOME. A CUSTODIAN MANAGER OR CHANGE LEAD CANNOT BE MADE A RESPONSIBLE PORCELAIN WAXER. - We recommend that a responsible person stays with you overnight to take care of you. - You cannot stay in a hotel alone after outpatient surgery. You will not be permitted to have yoursurgery, if you do not have someone to take care of you. If you already have an Advance Directive, please fax a copy to [phone] or email to for it to be added to your chart. If you do not have an Advance Directive, you can find the appropriate form and more information at [email or web address]. We recommend that youcomplete the Advance Directive form found on the website and bring it with you the day of your surgery. It can be witnessed and scanned into your chart that day. Radha Oliveira APRN.CNP documented in this encounterLicking [facility]04-08-2024 Miscellaneous Notes* Telephone Encounter - Keyana Roberts LPN - 11/19/2023 11:18 AM EDT Received EKG. Scanned into Epic through Onbase scanning. Keyana Roberts LPN * Telephone Encounter - Keyana Roberts LPN - 11/19/2023 10:28 AM EDT Called [facility] and spoke with Laverne. Requested EKG from September 2023. She states she will fax it over. Keyana Roberts LPN documented in this encounterLicking [facility]04-08-2024 History and physical note * Radha Oliveira APRN.DAY HABILITATION SPECIALIST - 11/19/2023 10:47 AM EDT HISTORY AND PHYSICAL EXAMINATION SERVICE DATE: 11/19/2023 SERVICE TIME: 10:47 AM PRIMARY CARE PHYSICIAN: Logan Haddad MD Assessment Patient has the following medical conditions which may affect yuli-operative course: Migraine Assessment: Currently stable on Topamax. Has PRN Maxalt but does not like to take. Chronic left-sided low back pain with left-sided sciatica Assessment: s/p spinal fusion 08/2023. Also has spinal cord stimulator. Radiculopathy present in both lower extremities. Taking Gabapentin. Following with pain management. Patient will bring remote for SCS to surgery. Depression, major, recurrent, moderate (HCC) Assessment: Pleasant and appropriate during today's visit. Compliant with Rx. Following with psychology. IBS (irritable bowel syndrome) Assessment: Alternating constipation and diarrhea, currently stable per patient. Does take PRN Senna-sharon and notes some abdominal pain present since back surgery. Had post-op ileus and fecal impaction. GERD (gastroesophageal reflux disease) Assessment: Symptoms currently stable on Rx. Essential hypertension Assessment: Compliant with Rx. Patient reports she is in a lot of pain today. Last 3 Encounter BP Readings: Date: BP: 11/19/2023 142/100; repeat 132/100 03/27/2023 121/73 11/10/2022 135/78 HLD (hyperlipidemia) Assessment: Compliant with Rx, following with PCP. Hypothyroidism Assessment: Compliant with Rx. Anemia Assessment: Last H&H - 9.2 & 30 (09/2023). No current supplementation. Blood work shortly after 4 level spinal fusion. Recheck CBC and iron levels today. Nicotine use disorder, F17.2 Assessment: Patient is a former cigarette smoker, currently using nicotine vape every day. Marijuana use Assessment: Patient using THC in vape occasionally. Pain disorder with psychological component Assessment: Patient following with pain management, Dr. Mercy Jin. She has a follow up appointment with him on 11/19. I advised her to discuss a preoperative plan of care regarding her pain management and Butrans recommendations. Letter also faxed to their office. Patient taking Tramadol, Butrans patch, Zanaflex, Gabapentin, Celebrex and Tylenol. Obese Assessment: Body mass index is 37.44 kg/m . Vang Activity Status Index: METS: Walk a block or two on level ground (2.75 METs) Cannot climb a flight of stairs or walk up a hill DASI Score: 2.75 Patient denies any chest pain or undue shortness of breath with the above physical activity. Patient is partially dependent. Clinical Frailty Scale: 4. Apparently vulnerable STOP-Bang Score: Snores loudly Has or is being treated for high blood pressure BMI greater than 35 kg/m^2 Patient over 50 years old Denies feeling tired, fatigued, or sleepy during the daytime Has not been observed to stop breathing or choking/gasping during sleep Does not have a large neck Non-male patient STOP-Bang Score: 4 ANESTHESIA FINDINGS: Intubation History: No history of difficult intubation. No abnormal airway history Significant Anesthesia Considerations: potential difficult IV/vein access Airway History: No history of difficult airway No abnormal airway history I - PHYSICAL EVALUATION AIRWAY Patient intubated: No. Tracheostomy tube not present Mallampati: II. TM distance: >3 FB. Neck ROM: full ROM without neurological symptoms. Mouth opening: adequate. Short neck: no. Thick neck: no Singleton present: no Lip Bite Test: I Microretrognathia/Micronagthia/Recessed Chin: No DENTAL Dental findings: teeth intact. Additional comments: Caps upper front, crown. II - ANESTHESIA PLAN Beta John Monitoring Plan Post Procedure Analgesic Plan Prepared for Surgery: optimally prepared for surgery, pending [see comment]. Labs and Pain Management recommendations EKG from 09/25/23 reviewed and acceptable for proposed procedure (scanned in November 19, 2023) CONSULTS: The following consults have been initiated at this time: pain management. Planned Anesthetic: anesthesia choice The Following Tests/Procedures Have Been Initiated: Orders Placed This Encounter CBC with Differential Standing Status: Future Number of Occurrences: 1 Standing Expiration Date: 02/18/2024 CMP Standing Status: Future Number of Occurrences: 1 Standing Expiration Date: 02/18/2024 FERRITIN BLD Standing Status: Future Number of Occurrences: 1 Standing Expiration Date: 02/18/2024 IRON + TIBC Standing Status: Future Number of Occurrences: 1 Standing Expiration Date: 02/18/2024 T&S - 30 Day Standing Status: Future Number of Occurrences: 1 Standing Expiration Date: 02/18/2024 traMADol (ULTRAM) 50 mg tablet Sig: Take 50 mg by mouth two times a day. buprenorphine (BUTRANS) 5 mcg/hour Sig: Apply 1 Patch as directed one time a week. tiZANidine HCl (ZANAFLEX) 4 mg capsule Sig: Take 4 mg by mouth at bedtime as needed. topiramate (TOPAMAX) 100 mg tablet Sig: Take 100 mg by mouth two times a day. gabapentin (NEURONTIN) 600 mg tablet Sig: Take 600 mg by mouth two times a day. levothyroxine 88 mcg cap Sig: Take 88 mcg by mouth daily before breakfast. Cetirizine 10 mg cap Sig: Take 1 capsule by mouth once daily. fluticasone (FLONASE) 50 mcg/actuation nasal spray Sig: Use 1 [place] in each nostril as needed. mupirocin (BACTROBAN) 2 % ointment Sig: Apply 1/2 inch of ointment with a Q-tip to both nostrils in the morning and afternoon for 5 consecutive days before surgery. Patient should start on November 29, 2023. Dispense: 15 g Refill: 0 REASON FOR VISIT: Bruno Patterson is a 53 year old female who is scheduled for ARTHROPLASTY HIP atthe request of Dr. Simran Dill for consultation. My final recommendation will be communicated backto the requesting physician by way of shared medical record or letter. Subjective The patient has the following: ACTIVE PROBLEM LIST Abnormality of Gait Migraine With Vertigo Dysfunction of Eustachian Tube Meniere's Disease of Right Ear Vestibular Migraine Rhinitis Non-Functioning Tympanostomy Tube Perforation of Right Tympanic Membrane Migraine Pain Disorder With Psychological Component Chronic Left-Sided Low Back Pain With Left-Sided Sciatica Primary Osteoarthritis of Left Hip Essential Hypertension Hypothyroidism Hypokalemia Nicotine use disorder, F17.2 Depression, Major, Recurrent, Moderate (Hcc) Climacteric Menorrhagia Insomnia Due to Psychological Stress Vitamin D Deficiency Ibs (Irritable Bowel Syndrome) Gerd (Gastroesophageal Reflux Disease) Hld (Hyperlipidemia) Anemia Marijuana Use Obese COVID-19 Immunization Status Covid-19 Vaccine (Series Information) Completed 09/18/2023 Imm Admin: COVID-19 vaccine, age 12+ yr, season (MODERNA) 06/30/2021 Imm Admin: COVID-19 original vaccine, full dose, monovalent (MODERNA) 10/27/2020 Imm Admin: COVID-19 original vaccine, full dose, monovalent (MODERNA) Only the first 3 history entries have been loaded, but more history exists. CHIEF COMPLAINT: Anesthesia Consult HPI: 53 year old female presents with osteoarthritis of right hip. Patient presents with father at today's visit. Patient had back surgery in August of this year which seemed to exacerbate pain in the right hip. She has been unable to complete PT for the back. She strained her back on Sunday and now the left hip is hurting as well. She ambulates with walker at home but is in a wheel chair at today's visit. Patient is following with Dr. Mercy Jin in pain management. REVIEW OF SYSTEMS: General: No weight loss, malaise or fevers. Neurological: Positive for: headaches and peripheral neuropathy (BLE). Negative for: multiple sclerosis, Parkinson's disease, seizures, TIA and strokes. Respiratory: No history of current cough or dyspnea, or pneumonia in the past 6 weeks. No history of respiratory/pulmonary symptoms or problems. Cardiovascular: Positive for: hyperlipidemia and hypertension Negative for: arrhythmia, atrial fibrillation, CAD, chest pain, CHF, DVT/PE, recent NH and murmur/valvular heart disease. GI: Positive for: abdominal pain (related to last surgery), GERD and irritable bowel syndrome Negative for: dysphagia, diverticulitis, GI bleed <30 days, hepatitis, inflammatory bowel disease, liver disease, nausea, vomiting and ETOH >2 drinks/day. : No history of dysuria, frequency or incontinence, stones or chronic kidney disease. No difficulty urinating, nocturia > 1 time per night or hematuria. SLD INCLUSION TEACHER: Negative for abnormal vaginal bleeding, abnormal vaginal discharge. Endocrine: Positive for: hypothyroidism. Negative for: diabetes mellitus and hyperthyroidism. Hematology: Positive for: anemia and bruises/bleeds easily. Negative for: factor V Leiden, thrombocytopenia, von Willebrand disease and chronic anti-coagulation/platelet meds. Oncology: No history of CA metastasis, chemo within 30 days, or radiotherapy within 90 days. No history of oncological symptoms or problems. Psych: Positive for: depression. Negative for: anxiety. Musculoskeletal: Positive for: back pain, joint pain (SEE HPI) and swelling (RLE). Skin: Negative for lesions, rash and itching. PAST MEDICAL HISTORY Diagnosis Date Bulging lumbar disc and cervical DDD (degenerative disc disease), cervical GERD (gastroesophageal reflux disease) HLD (hyperlipidemia) Hypertension IBS (irritable bowel syndrome) Marijuana use 11/19/2023 Meniere disease Migraines Non-functioning tympanostomy tube 04/21/2013 Obese Otalgia of right ear 04/21/2013 Perforation of right tympanic membrane 07/07/2013 Rhinitis 04/21/2013 Sinusitis 04/21/2013 PAST SURGICAL HISTORY Procedure Laterality Date BACK SURGERY HX 08/2023 Spinal fusion COLONOSCOPY 11/10/2022 repeat in 10 years S SPINAL CORD STIMULATOR, back and neck TOTAL HIP REPLACEMENT Left FAMILY HISTORY Problem Relation Age of Onset Asthma Mother Hypertension Mother Heart disease Mother Diabetes Father Cancer Father Colon Heart disease Brother Anesthesia Problems No Family History Social History Tobacco Use Smoking status: Former Packs/day: 0.75 Years: 25.00 Additional pack years: 0.00 Total pack years: 18.75 Types: Cigarettes Quit date: 2021 Years since quittin.2 Smokeless tobacco: Never Vaping Use Vaping Use: current everyday user Start date: 11/18/2021 Substances: Nicotine, THC, Nicotine daily, THC occasionally Substance Use Topics 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 Taking Yes buprenorphine (BUTRANS) 5 mcg/hour Apply 1 Patch as directed one time a week. Taking Yes tiZANidine HCl (ZANAFLEX) 4 mg capsule Take 4 mg by mouth at bedtime as needed. Taking Yes topiramate (TOPAMAX) 100 mg tablet Take 100 mg by mouth two times a day. Taking Yes gabapentin (NEURONTIN) 600 mg tablet Take 600 mg by mouth two times a day. Taking Yes levothyroxine 88 mcg cap Take 88 mcg by mouth daily before breakfast. Taking Yes Cetirizine 10 mg cap Take 1 capsule by mouth once daily. Taking Yes fluticasone (FLONASE) 50 mcg/actuation nasal spray Use 1 [place] in each nostril as needed. Taking Yes lamoTRIgine (LAMICTAL) 100 mg tablet take 1 tablet by mouth daily Taking Yes rosuvastatin (CRESTOR) 5 mg tablet Take 10 mg by mouth once daily. Taking Yes dexAMETHasone 0.1 % ophthalmic solution 3 drops 3 times a day to affected ear as needed vertigo Patient taking differently: as needed. 3 drops 3 times a day to affected ear as needed vertigo Taking Yes triamterene-hydroCHLOROthiazide (MAXZIDE-25) 37.5-25 mg per tablet Take 1 tablet by mouth once daily. Taking Yes celecoxib (CELEBREX) 200 mg capsule Take 200 mg by mouth once daily. Taking Yes venlafaxine (EFFEXOR) 37.5 mg tablet Take 75 mg by mouth once daily. Taking Yes aMILoride (MIDAMOR) 5 mg tablet Take 5 mg by mouth once daily. Taking Yes acetaminophen (TYLENOL) 325 mg tablet Take 2 tablets by mouth every 4 hours as needed for Pain (post op total joint pain). Taking Yes senna-docusate (SENOKOT-S) 8.6-50 mg per tablet Take 2 tablets by mouth twice daily. Patient taking differently: Take 2 tablets by mouth as needed. Taking Differently Yes potassium chloride ER (K-DUR, KLOR-CON) 20 mEq tablet Take 1 tablet by mouth twice daily. Patient taking differently: Take 20 mEq by mouth three times a day. Taking Differently Yes ondansetron orally disintegrating (ZOFRAN ODT) 4 mg disintegrating tablet Take 1 tablet by mouth every 8 hours as needed for Nausea/Vomiting. Taking Yes meclizine (ANTIVERT) 12.5 mg tab Take 12.5 mg by mouth as needed. Taking Yes Omeprazole 40 mg capsule Take 40 mg by mouth once daily. Taking Yes MULTIVITAMIN TAB Take 1 tablet by mouth once daily. Taking Yes mupirocin (BACTROBAN) 2 % ointment Apply 1/2 inch of ointment with a Q-tip to both nostrils in the morning and afternoon for 5 consecutive days before surgery. Patient should start on November 29, 2023. rizatriptan (MAXALT QUALITY ASSURANCE CLERK) 5 mg disintegrating tablet Take 1 tablet by mouth as needed. May repeat in2 hours if needed.dont exceed 10 mg in 24 hours Patient not taking: Reported on 11/19/2023 Not Taking Medication Comments documented by Katlyn Art on 08/26/2009 at 1007. 07/07/2009 Patient stated she takes 6-8 tablets of Ibuprofen a day. ALLERGIES Allergen Reactions Citric Acid Other: See Comments Wears down lining of the mouth. Fruit and tomatoes Cymbalta [Duloxetin* Other: See Comments Weight gain Lactose GI Upset Penicillins Hives Shellfish Derived Vomiting Objective PHYSICAL EXAM: General: alert and oriented and obese. Pertinent negatives noted - not distressed. Skin: normal color, no rash or lesions. HEENT: pupils equal round and pupils reactive to light. Pertinent negatives noted - no carotid bruit. Cardiovascular: regular rate and rhythm, normal S1 and S2, no rub, murmurs, or gallop. Respiratory: normal breath sounds, no wheezes or crackles. No chest wall deformity or tenderness. Abdomen: Pertinent negatives noted - no hernia and no mass. Extremities: Positive for edema (RLE, non-pitting). Neurological: Normal cognition, in wheel chair during exam. PAIN ASSESSMENT: Pain Pain Level: 10 Pain Location: Hip-Right Description: Throbbing, Sharp, Aching Duration Amount of Time: 2 Duration Units: Years Frequency: Continuous Intervention/Comfort measure: Medication VITALS: BP 132/100 Pulse 75 Temp (Src) 98.4 (Temporal) Resp 14 Ht 5' 5 (1.65m) Wt 225 lb (102.1kg) SpO2 98% LMP 11/19/2023 BMI 37.44 kg/(m^2). Diagnostic tests reviewed for today's visit: Lab Value Units Date High Low HB 12.7 g/dL 11/19/2023 15.5 11.5 HCT 39.7 % 11/19/2023 46.0 36.0 WBC 9.38 k/uL 11/19/2023 11.00 3.70 PLT 300 k/uL 11/19/2023 400 150 NA 137 mmol/L 11/19/2023 144 136 K 4.0 mmol/L 11/19/2023 5.1 3.7 GLUC 112 mg/dL 11/19/2023 99 74 BUN 12 mg/dL 11/19/2023 21 7 CREAT 0.84 mg/dL 11/19/2023 0.96 0.58 PTSEC No results within date range. INR No results within date range. APTT No results within date range. ALT 17 U/L 11/19/2023 38 7 AST 19 U/L 11/19/2023 35 13 TBILI 0.2 mg/dL 11/19/2023 1.3 0.2 TSH No results within date range. Lab Value Units Date High Low HCGQT No results within date range. UHCG No results within date range. HCG, BODY* No results within date range. Lab Value Units Date High Low ABORHD No results within date range. ABSCREEN No results within date range. No results found for: HBA1C No results found for this or any previous visit (from the past 8760 hour(s)). No results found for this or any previous visit (from the past 20083 hour(s)). Instructions Given to Patient: Instructions located in the after visit summary. Patient given verbal and written preop instructions and voices comprehension and compliance. SIGNATURE: Radha Oliveira APRN.CNP PATIENT NAME: Bruno Patterson DATE: November 19, 2023 TIME: 10:47 AM PAGER/CONTACT #: [facility] Miscellaneous Notes* Telephone Encounter - Chantal Yip LSW - 11/15/2023 2:37 PM EDT CARE CONTINUUM ADVISOR ASSESSMENT PRIMARY CARE PHYSICIAN: Logan Haddad MD OR Surgery Date: 12/04/23 [facility]CI Appointment: n/a Health Insurance: Medicaid Financial Resources: Unemployed Primary Contact: Extended Emergency Contact Information Primary Emergency Contact: Chaitanya Cabral Mobile Relation: Son Secondary Emergency Contact: VANESSA PEREZ Mobile Relation: Sister Other Important Patient Contacts: None 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 Yes: Living Will Durable Power of Boat Pilot for Health Care: , copy is in chart Up to date and Valid: Yes Does Patient Have Concerns About Advance Directives? No Education Provided: No SOCIAL: Living Arrangement: Home alone Lives With: Alone, but has a sister and a son Stairs: One story home 4 stairs to enter home Do you have any concerns with food and/or affording food?: No Do you have reliable transportation to and from surgery/appointments?: Yes Medication Adherence: Do you have any concerns with your prescription medication?: No Who do you use for pharmacy?: Bedside Pre-Hospital Baseline Mental Status: Alert & Oriented Informant: Self What is your current functional status?: Perform ADLs independently Equipment: Do you currently use any equipment at home for your medical condition or to help you get around? Cane - Straight Elevated toilet seat Tub bench/chair Walker Active Services/Needs: None Do you have a community outreach specialist contact through your insurance or [employer]?: No Has the Patient Been in a Longterm Facility in the Past 30 days? No FREEDOM OF CHOICE: Level of Care Discussed: Home Care Financial Disclosure Provided: Yes Financial Disclaimer Provided: Yes, regarding pre-cert / insurance authorization Provider List: Home Care Provider list within the patient's requested geographic area shared with the patient/family: Yes - Within [address] of [address] [place] [address] PAC Provider Choices Collected Home Health: [facility]- pt is currently active with [facility] for an RN and OT Interventions: Discussed importance of active PCP relationship and follow up Discussed insurance risks, gaps, and programs available Discussed reliable transportation needs for surgery and follow up appointments SIA Kc documented in this encounterL[facility]02[facility] Discharge summary Author Rafael Israel [facility] September 25, 2023 7:45am Note Date/Time September 25, 2023 6:43am [facility] Medical Records Department [address] [place] [address] Emergency Department Summary 09/25/23 MR#: [id number] Acct: [id number] Name: BRUNO PATTERSON Rep #:[id number] : 1970 52 From: Rafael Wood MD PCP: Care Physician,No Primary Status :REG ER Location: ED HPI History of Present Illness Chief Complaint: Stroke Alert Informant: patient and other (rehab aid) Narrative Narrative: Patient recently had a spinal fusion and as result has been having back pain andright lower extremity pain, and currently is in rehab. She is brought down to the ER as an acute stroke alert just after 6 AM because of a mental status change and blood pressure 140s/120s, without focal deficit. Rehab nurse who accompanies her states she last saw her normal at 3 AM. She has been on lots ofmedications because of pain, she received an oxycodone after 3 AM, and when she rechecked on her just prior to calling stroke alert, she was altered. She was clenching her hands and spasm to some degree, and not coherent like normal or processing things mentally like normal. She called a stroke alert and she and nursing subassembly supervisor bring the patient emergently to the emergency department for evaluation. [facility] Medical History Acute maxillary sinusitis, unspecified Ambulates with cane Anemia Anxiety Arthritis Back problem Depression Dietary restriction Easy bruising Former smoker Gastric reflux Hearing problem History of edema History of pain when walking History of ulceration Hives Hypokalemia IBS (irritable bowel syndrome) Injury of head and neck Leg cramps Loss of hearing Menieres disease Migraine headache Neuropathy Osteoarthritis Pain Pneumonia Seasonal allergies Thyroid disease Ulcer Vertigo Vision problem Vitamin deficiency Wears glasses Home Medications celecoxib 200 mg capsule 200 mg PO DAILY PAIN 12/27/16 [History Last Taken 09/02/23] amiloride 5 mg tablet 1 tab PO DAILY MENERIES 03/27/20 [History Last Taken 09/02/23] omeprazole 40 mg capsule,delayed release 40 mg PO DAILY PER 08/17/21 [History Last Taken 09/12/23 08:00] ondansetron HCl 4 mg tablet 4 mg PO Q8H PRN NAUSEA 08/17/21 [History Last Taken Unknown] topiramate 100 mg tablet 100 mg PO BID MIGRAINES 08/17/21 [History Last Taken 09/12/23 08:00] fluticasone propionate 50 mcg/actuation nasal spray,suspension 2 spray PRN PRN ALLERGIES 10/21/21 [History Last Taken Unknown] venlafaxine 75 mg capsule,extended release 24 hr (Effexor XR) 75 mg PO DAILY PERDR 12/27/21 [History Last Taken 09/12/23 08:00] rosuvastatin 10 mg tablet [address] mg PO DAILY PER DR REAGAN 01/24/23 [History Last Taken 09/12/23] levothyroxine 88 mcg tablet (Levoxyl) 88 mcg PO DAILY Thyroid 02/20/23 [History Last Taken 09/12/23 05:00] potassium chloride 20 mEq tablet,extended release 60 meq PO DAILY PER DR 02/20/23 [History Last Taken 09/02/23] triamterene 37.5 mg-hydrochlorothiazide 25 mg tablet 1 tab PO DAILY PER DR 02/20/23 [History Last Taken 09/02/23] cetirizine 10 mg tablet (Zyrtec) 10 mg PO DAILY PRN allergy symptoms 03/08/23 [History Last Taken 09/02/23] lamotrigine 100 mg tablet 100 mg PO DAILY PER DR 03/08/23 [History Last Taken 09/12/23 08:00] meclizine 25 mg tablet 25 mg PO TID PRN dizziness #20 tabs 05/14/23 [Rx Last Taken 09/04/23] cholecalciferol (vitamin D3) 25 mcg (1,000 unit) capsule (Vitamin D3) 25 mcg PO DAILY Supplement 08/20/23 [History Last Taken 09/02/23] multivitamin (Daily Multi-Vitamin tablet) 1 tab PO DAILY PER DR 08/20/23 [History Last Taken 09/02/23] acetaminophen 500 mg tablet 1,000 mg (2 x 500 mg) PO Q8 Pain #0 tabs 09/12/23 [Rx Last Taken 09/12/23 14:15] aspirin 325 mg tablet 325 mg PO BREAKFAST Heart #0 tabs 09/12/23 [Rx Last Taken 09/11/23] sennosides 8.6 mg-docusate sodium 50 mg tablet (Stool Softener-Stimulant Laxative) 2 tab PO BID Constipation #0 tabs 09/12/23 [Rx Last Taken 09/12/23 07:55] baclofen 10 mg tablet 20 mg (2 x 10 mg) PO 4X/DAY 30 days #240 tabs 09/24/23 [Rx Last Taken Unknown] bisacodyl 5 mg tablet,delayed release 10 mg (2 x 5 mg) PO DAILY 30 days #60 tabs09/24/23 [Rx Last Taken Unknown] diazepam 5 mg tablet 10 mg (2 x 5 mg) PO 4X/DAY PRN PRN Spasms 7 days #56 tabs 09/24/23 [Rx Last Taken Unknown] doxepin 25 mg capsule 25 mg PO QHS 30 days #30 caps 09/24/23 [Rx Last Taken Unknown] gabapentin 600 mg tablet 600 mg PO 4X/DAY 30 days #120 tabs 09/24/23 [Rx Last Taken Unknown] lidocaine 5 % topical patch 2 patch topical DAILY 30 days #60 ea 09/24/23 [Rx Last Taken Unknown] oxycodone 5 mg tablet 5 - 10 mg (1 - 2 x 5 mg) PO Q4H PRN PRN Pain Score 4-10 3 days #36 tabs 09/24/23 [Rx Last Taken Unknown] Allergy/AdvReac Type Severity Reaction Status Date / Time shellfish derived Allergy Severe vomitting Verified 09/25/23 06:35 Penicillins Allergy Hives Verified 09/25/23 06:35 citric acid AdvReac Severe wears dowm Verified 09/25/23 06:35 linning of mouth duloxetine [From Cymbalta] AdvReac Intermediate Other Verified 09/25/23 06:35 gluten AdvReac Intermediate stomach Verified 09/25/23 06:35 discomfort Family History Other Alcohol abuse Anxiety Arthritis Autoimmune disease Bowel disease Colon cancer Depression Diabetes Heart disease High cholesterol Hypertension Mental disorder Psychiatric care Severe allergic reaction Thyroid disorder Surgical History H/O total hip arthroplasty S/P insertion of spinal cord stimulator Social History household members: none Smoking Status: Current every day smoker tobacco type: e-cigarettes alcohol intake: former year quit: 2016 substance use type: does not use frequency: daily ROS ROS ED Constitutional Constitutional ED: Denies chills or fever(s) Eyes Eyes: Denies change in vision or diplopia ENT ENT ED: Denies rhinorrhea or sore throat Cardiovascular Cardiovascular: Denies chest pain or palpitations Respiratory/Chest Respiratory/Chest: Denies cough or dyspnea Gastrointestinal Gastrointestinal: Reports nausea; Denies abdominal pain, diarrhea or vomiting Genitourinary Genitourinary ED: Denies dysuria or hematuria Musculoskeletal Musculoskeletal: Reports as per HPI, back pain and extremity pain; Denies neck pain Integumentary Denies abscess or rash Neurologic Neurologic: Reports headache(s); Denies paresthesias or weakness Psychiatric Psychiatric: Denies anxiety or suicidal thoughts EXAM Physical Exam Const Vital Signs: 09/25/23 06:25 09/25/23 06:25 09/25/23 06:30 Temperature 97.6 F L 97.6 F L Temperature Source Temporal Temporal Pulse Rate 99 99 Respiratory Rate 18 18 Blood Pressure 129/103 H 129/103 H Blood Pressure Mean 111 111 Pulse Ox 99 98 Oxygen Delivery Method Room Air Room Air Room Air 09/25/23 06:30 09/25/23 07:00 09/25/23 07:17 Temperature 97.6 F L Temperature Source Temporal Pulse Rate 99 94 90 Respiratory Rate 18 22 H 23 H Blood Pressure 129/103 H 140/90 H 118/94 H Blood Pressure Mean 111 106 102 Pulse Ox 98 97 96 Oxygen Delivery Method Room Air Room Air Room Air Positive well nourished and well developed General Appearance ED: well developed and NAD HEENT Reports moist mucous membranes normocephalic and atraumatic Eyes PERRL and EOMs intact bilaterally Neck full ROM and supple Resp normal respiratory effort and clear to auscultation bilaterally Cardio regular rate, regular rhythm and no murmurs GI non-tender and non-distended Auscultation: normoactive bowel sounds Palpation: soft Back/Spine no CVA tenderness General Back: other FROM Extremity normal to inspection General Extremety ED: Negative for edema, pulses abnormal or tenderness General Extremity: Negative for edema or pulses abnormal Neuro oriented x3, CN's II-XII intact bilaterally and no sensory deficits noted Neuro Narrative: Oriented to the month and her age. No aphasia. No dysarthria. No focal neurologic deficits. Visual king intact. Normal [id number] and [id number] within the limits of the exam. Limited evaluation of the right lower extremity due to pain, but she can move it and feel it well. Sensorium / Orientation: awake and alert Psych Psych Narrative: Flat affect, acts a little spacey but keenly alert Skin no rashes or lesions noted and no wounds NIHSS NIHSS Initial: 1a Level of Consciousness: 0 1b LOC Questions (Score 2 if aphasic/stupor): 0 1c LOC Commands (Only score 1st attempt): 0 2 Best Gaze (If aphasic, use reflexive mvmts.): 0 3 Visual: 0 4 Facial Palsy: 0 5 Motor Arm Right (UN = amputation/fusion): 0 5 Motor Arm Left: 0 6 Motor Leg Right: 0 6 Motor Leg Left: 0 7 Limb ataxia (Only + if out of proportion): 0 8 Sensory (Aphasia/stupor=0 or 1, coma=2): 0 9 Best Language: 0 10 Dysarthria (mute, coma=2, intubated=UN): 0 11 Extinction and Inattention (only scored if +): 0 Total Score: 0 MDM MDM MDM Narrative Medical decision making narrative: I reviewed stat CT and CTA, I agree with the report, essentially negative for any acute. Although this does not rule out acute ischemic stroke, I think that is not the most likely etiology of the patient's altered mental status. She is on diazepam, oxycodone, doxepin, and several other medications that could be altering her mental status especially between 3-6 AM. We are also screening herfor dysrhythmias and infections. EKG is interpreted by myself as normal. Her blood work shows that she appears to be dehydrated. She is hypernatremic and hyperchloremic along with prerenal azotemia, which I am interpreting as dehydration. IV fluids ordered. In discussing with stroke neurology Dr. Jones, he agrees that the patient is not athrombolytic candidate since she had spinal surgery less than a month ago, and also agrees that this is not likely to be acute stroke given the presentation. He supports sending the patient back to rehab and treating any other metabolic issues we find as above. I discussed this with Dr. Henderson who is managing her on rehab, and he is in agreement with that as well, adding a request for a urine drug screen which I added, due to the patient really complaining of lots of painand muscle spasms yesterday, for which she has increased her baclofen dose and other medications, and wondering if a family member may be giving her something that she is not being prescribed in the hospital. At this time, we are waiting for the pt to provide a urine specimen, but she is dehydrated so it may take a little time after she receives fluids. Will have AM ED physician check and discharge pt back to rehab appropriately. History & Record Review Additional record(s) reviewed:: Prior inpatient record (spinal fusion 09/03/23) Lab Data Attestation: I reviewed the patient's lab results. Labs: Laboratory Results - last 24 hr 09/25/23 06:30 WBC 8.9 RBC 3.55 L Hgb 10.7 L Hct 35.0 L MCV 98.6 MCH 30.1 MCHC 30.6 L RDW Std Deviation 59.5 H RDW Coeff of Zoey 16.3 H Plt Count 435 MPV 9.4 Immature Gran % (Auto) 0.300 Neut % (Auto) 61.8 Lymph % (Auto) 25.2 [place] % (Auto) 7.9 Eos % (Auto) 3.9 Baso % (Auto) 0.9 Absolute Neuts (auto) 5.5 Absolute Lymphs (auto) 2.25 Nucleated RBC % 0 PT 13.7 INR 1.1 APTT 27.7 Sodium 146 H Potassium 4.2 Chloride 113 H Carbon Dioxide 27.0 Anion Gap 6 BUN 24 H Creatinine 0.88 Estim Creat Clear Calc 88.92 Est GFR (MDRD) Af Amer 87 Est GFR (MDRD) Non-Af 72 BUN/Creatinine Ratio 27.4 H Glucose 105 Calcium 9.1 Troponin I High Sens 7 Radiography Chest X-Ray - ED: 1 View, Read by ED Physician, No Acute Disease and No Infiltrates Diagnostic Testing: Clinical Impression(s) from Imaging Studies Brain CT 09/25/23 06:30 IMPRESSION: No acute abnormality. CT angiogram and/or MRI recommended to evaluate for acute infarct as clinically indicated. Electronically Signed: Ida Chaudhary MD at 6:48 EST , ADDENDUM: 09/25/23 0656 IMPRESSION: No acute abnormality. CT angiogram and/or MRI recommended to evaluate for acute infarct as clinically indicated. N.B. : The above Results were Read Back by Ida Chaudhary MD to Rafael Wood MD, and understanding confirmed on 09/25/2023 06:49:23 (ET). Electronically Signed: Ida Chaudhary MD at 6:48 EST , Rhythm Strip Rhythm Strip: Sinus Rhythm Rate: 90 Ectopy: PVC(s) EKG Initial EKG: Attestation: I personally reviewed and interpreted this EKG as follows: Interpretation: Sinus Rhythm, No Acute Injury Pattern and LAFB Management Discussion w/another healthcare provider: Director Clinical Applications (stroke neurology), Radiologist and Other (Dr. Henderson, rehab) Stroke Documentation Questions Stroke Team Activated: Yes (prior to ED arrival) Reviewed Inclusion/Exclusion criteria: Yes Was Patient considered for Endovascular Intervention?: No-CTA negative, determined not to be an endovascular candidate IV Thrombolytic Administered: No (due to recent spine surgery and CVA not most likely Dx) No contraindications from thrombolytic administration: No Critical Care Time Critical Care Time: Yes Critical care time (excluding procedures): 30-74 minutes (32 min), Including time spent:, Discussing w/Patient &/or Family/Fiscal Manager, Discussing w/Consultants, Arranging Admission or Transfer and Performing Direct Patient Care at Bedside Discharge Plan Triage Chief Complaint: Stroke Alert ED Provider: Rafael Wood Dx/Rx/DC Orders Clinical Impression: Acute alteration in mental status, Dehydration Prescriptions: No Action topiramate 100 mg tablet 100 mg PO BID Patient Comments: TAKE 1 TABLET BY MOUTH TWICE A DAY omeprazole 40 mg capsule,delayed release(DR/EC) 40 mg PO DAILY ondansetron HCl 4 mg tablet 4 mg PO Q8H PRN (Reason: NAUSEA) rosuvastatin 10 mg tablet 10 mg PO DAILY Patient Comments: take 1 tablet by mouth once daily cetirizine [Zyrtec] 10 mg tablet 10 mg PO DAILY PRN (Reason: allergy symptoms) lamotrigine 100 mg tablet 100 mg PO DAILY Patient Comments: take 1 tablet by mouth once daily meclizine 25 mg tablet 25 mg PO TID PRN (Reason: dizziness) Qty: 20 0RF celecoxib 200 MG capsule 200 mg PO DAILY fluticasone propionate 50 mcg/actuation spray,suspension 2 spray NASAL PRN PRN (Reason: ALLERGIES) amiloride 5 mg tablet 1 tab PO DAILY Patient Comments: TAKE 1 TABLET BY MOUTH EVERY DAY venlafaxine [Effexor XR] 75 mg Capsule,Extended Release 24hr 75 mg PO DAILY levothyroxine [Levoxyl] 88 mcg tablet 88 mcg PO DAILY Patient Comments: TAKE 1 TABLET BY MOUTH ONCE DAILY potassium chloride 20 mEq tablet extended release 60 meq PO DAILY Patient Comments: TAKE 3 TABLETS BY MOUTH ONCE DAILY triamterene-hydrochlorothiazid 37.5-25 mg tablet 1 tab PO DAILY Patient Comments: take 1 tablet by mouth once daily multivitamin [Daily Multi-Vitamin] Tablet 1 tab PO DAILY Patient Comments: ASKING AT APPT ON 08/24 ABOUT STOPPING cholecalciferol (vitamin D3) [Vitamin D3] 25 mcg (1,000 unit) capsule 25 mcg PO DAILY acetaminophen 500 mg Tablet 1,000 mg PO Q8 Qty: 0 0RF aspirin 325 mg Tablet 325 mg PO BREAKFAST Qty: 0 0RF sennosides-docusate sodium [Stool Softener-Stimulant Laxat] 8.6-50 mg Tablet 2 tab PO BID Qty: 0 0RF bisacodyl 5 mg Tablet,Delayed Release (Dr/Ec) 10 mg PO DAILY 30 Days Qty: 60 0RF gabapentin 600 mg Tablet 600 mg PO 4X/DAY 30 Days Qty: 120 0RF lidocaine 5 % Adhesive Patch,Medicated 2 patch topical DAILY 30 Days Qty: 60 0RF Protocol: *Topical Application Instructions APPLICATION INSTRUCTIONS: Apply over right groincovering part of lower abdomen and inner thigh. oxycodone 5 mg Tablet 5 - 10 mg PO Q4H PRN PRN (Reason: Pain Score 4-10) 3 Days Qty: 36 0RF doxepin 25 mg Capsule 25 mg PO QHS 30 Days Qty: 30 0RF baclofen 10 mg Tablet 20 mg PO 4X/DAY 30 Days Qty: 240 0RF diazepam 5 mg Tablet 10 mg PO 4X/DAY PRN PRN (Reason: Spasms) 7 Days Qty: 56 0RF Primary Care Provider: Care Physician,No Primary Referrals: Ky Henderson Chi, MD [Med Staff - Active Staff] - As soon as possible (contact for orders) Disposition Disposition: Inpatient Rehab Unit/Facility What to do if you have Problems For any increased pain, shortness of breath, bleeding, nausea or vomiting, chestpain, or any unexpected problems, contact your Primary Care Provider. Call [facility] ([phone]) or report to the closest Emergency Room. Call 911 if necessary. 09/25/23 0745 <Electronically signed by Rafael Wood MD> Cosigner Signature (if applicable): CC: No Primary Care Physician ~ Signed [facility] Work Phone: [phone] 844-979702-12-2024 Discharge summary Author [facility] September 24, 2023 7:33pm Note Date/Time September 24, 2023 7:24pm [facility] Medical Records Department [address] [place] [address] Discharge Summary 09/24/231923 MR#: [id number] Acct: [id number] Name: BRUNO PATTERSON Rep #:[id number] : 1970 52 From: Ky Henderson MD PCP: LOGAN HADDAD Status:ADM IN Location: [place] 334809- Providers Date of Admission: 09/12/23 Primary Care Physician: LOGAN HADDAD Reason For Visit: 360 LUMBAR FUSION OF THE L2-S1 Diagnosis Discharge Diagnosis (1) Debility: Status: Acute Code(s): R53.81 - Other malaise (2) S/P lumbar spinal fusion: Status: Acute Code(s): Z98.1 - Arthrodesis status (3) Urinary retention: Status: Acute Code(s): R33.9 - Retention of urine, unspecified (4) Fecal impaction of colon: Status: Acute Code(s): K56.41 - Fecal impaction (5) Ileus: Status: Resolved Code(s): K56.7 - Ileus, unspecified (6) Hypokalemia: Status: Acute Code(s): E87.6 - Hypokalemia (7) Postoperative anemia: Status: Acute Code(s): D64.9 - Anemia, unspecified (8) Osteoarthritis: Status: Acute Code(s): M19.90 - Unspecified osteoarthritis, unspecified site (9) Neuropathic pain: Status: Acute Code(s): M79.2 - Neuralgia and neuritis, unspecified (10) GERD (gastroesophageal reflux disease): Status: Acute Code(s): K21.9 - Gastro-esophageal reflux disease without esophagitis (11) Allergic rhinitis: Status: Acute Code(s): J30.9 - Allergic rhinitis, unspecified (12) Depression: Status: Acute Code(s): F32.A - Depression, unspecified (13) Hyperlipidemia: Status: Acute Code(s): E78.5 - Hyperlipidemia, unspecified (14) Hypothyroidism: Status: Acute Code(s): E03.9 - Hypothyroidism, unspecified (15) Hypertension: Status: Chronic Code(s): I10 - Essential (primary) hypertension (16) Migraine headache: Status: Acute Code(s): G43.909 - Migraine, unspecified, not intractable, without status migrainosus (17) M?ni?re's disease: Status: Chronic Code(s): H81.09 - Meniere's disease, unspecified ear Plan 52 year old female with below past medical history hospitalized for elective L5- S1 fusion 09/03/2023, postoperative course complicated by hypoxia, urinary retention, fecal impaction of colon, ileus, hypokalemia, postoperative anemia, admitted to TCU with debility, here for rehabilitation, strengthening, prior to discharge home alone. * Debility - PT/OT. * Pain - Tylenol 1000mg q8, Oxycodone 20mg bid thru 09/19/2023, Oxycodone 5-10mg q4 prn, Lidoderm 2 patches topical daily. * Bowel - senna/colace 2 tablets bid, Dulcolax 5mg daily. * Adult immunization - Administer pneumonia vaccine, covid vaccine, flu vaccine as appropriate. * DVT prophylaxis - Hold, monitor. * Meniere's disease - Amiloride 5mg daily, Meclizine 25mg tid prn. * CV prophylaxis - Aspirin 325mg daily. * Hyperlipidemia - Atorvastatin 20mg qhs. * Osteoarthritis - Celebrex 200mg daily. * Vitamin D deficiency - D3 25mcg daily. * Allergic rhinitis - Flonase 2 sprays daily prn, Loratadine 10mg daily prn. * Neuropathic pain - Gabapentin 600mg bid. * Depression - Venlafaxine XR 75mg daily, Lamictal 100mg daily, stable chronic salvage determiner use, GDR not recommended. * Hypothyroidism - Levothyroxine 88mcg daily. * Muscle spasm - Robaxin 1000mg tid. * Nutrition - MVI daily. * Nausea - Zofran odt 4mg q8 prn. * GERD - Pantoprazole 40mg daily. * Hypokalemia - KCL 60mg daily. * Migraine - Topamax 100mg bid. * Hypertension - Maxzide 37.5/25mg daily. Medications at Discharge Home Medications celecoxib 200 mg capsule 200 mg PO DAILY PAIN 12/27/16 amiloride 5 mg tablet 1 tab PO DAILY MENERIES 03/27/20 omeprazole 40 mg capsule,delayed release 40 mg PO DAILY PER DR 08/17/21 ondansetron HCl 4 mg tablet 4 mg PO Q8H PRN NAUSEA 08/17/21 topiramate 100 mg tablet 100 mg PO BID MIGRAINES 08/17/21 fluticasone propionate 50 mcg/actuation nasal spray,suspension 2 spray PRN PRN ALLERGIES 10/21/21 venlafaxine 75 mg capsule,extended release 24 hr (Effexor XR) 75 mg PO DAILY PERDR 12/27/21 rosuvastatin 10 mg tablet 10 mg PO DAILY PER ORDNatalia 01/24/23 levothyroxine 88 mcg tablet (Levoxyl) 88 mcg PO DAILY Thyroid 02/20/23 potassium chloride 20 mEq tablet,extended release 60 meq PO DAILY PER DR 02/20/23 triamterene 37.5 mg-hydrochlorothiazide 25 mg tablet 1 tab PO DAILY PER DR 02/20/23 cetirizine 10 mg tablet (Zyrtec) 10 mg PO DAILY PRN allergy symptoms 03/08/23 lamotrigine 100 mg tablet 100 mg PO DAILY PER DR 03/08/23 meclizine 25 mg tablet 25 mg PO TID PRN dizziness #20 tabs 05/14/23 cholecalciferol (vitamin D3) 25 mcg (1,000 unit) capsule (Vitamin D3) 25 mcg PO DAILY Supplement 08/20/23 multivitamin (Daily Multi-Vitamin tablet) 1 tab PO DAILY PER 08/20/23 acetaminophen 500 mg tablet 1,000 mg (2 x 500 mg) PO Q8 Pain #0 tabs 09/12/23 aspirin 325 mg tablet 325 mg PO BREAKFAST Heart #0 tabs 09/12/23 sennosides 8.6 mg-docusate sodium 50 mg tablet (Stool Softener-Stimulant Laxative) 2 tab PO BID Constipation #0 tabs 09/12/23 baclofen 10 mg tablet 20 mg (2 x 10 mg) PO 4X/DAY 30 days #240 tabs 09/24/23 bisacodyl 5 mg tablet,delayed release 10 mg (2 x 5 mg) PO DAILY 30 days #60 tabs09/24/23 diazepam 5 mg tablet 10 mg (2 x 5 mg) PO 4X/DAY PRN PRN Spasms 7 days #56 tabs 09/24/23 doxepin 25 mg capsule 25 mg PO QHS 30 days #30 caps 09/24/23 gabapentin 600 mg tablet 600 mg PO 4X/DAY 30 days #120 tabs 09/24/23 lidocaine 5 % topical patch 2 patch topical DAILY 30 days #60 ea 09/24/23 oxycodone 5 mg tablet 5 - 10 mg (1 - 2 x 5 mg) PO Q4H PRN PRN Pain Score 4-10 3 days #36 tabs 09/24/23 Hospital Course Operations - (See below.) Procedures None Summary of Care Provided Minutes Spent on Discharge: 35 Hospital Course: 52 year old female with below past medical history hospitalized for elective L5- S1 fusion 09/03/2023, postoperative course complicated by hypoxia, urinary retention, fecal impaction of colon, ileus, hypokalemia, postoperative anemia, admitted to TCU with debility, here for rehabilitation, strengthening, prior to discharge home alone. [place] home alone 09/27, [facility] PT/OT/SN. Physical Exam Const alert General Appearance: cooperative HEENT normocephalic Eyes PERRL and EOMs intact bilaterally Neck supple, no JVD and no carotid bruits Resp normal respiratory effort, normal air movement and clear to auscultation bilaterally Cardio regular rate and regular rhythm GI normal to inspection, nondistended, normoactive bowel sounds, non-tender and non-distended Extremity normal capillary refill General Extremity: Negative for edema Skin no rashes or lesions noted General Skin Exam: no breakdown Psych affect normal Appearance: appropriate Weight / BMI Weight Weight: 100.924 kg Body Mass Index (BMI) 37.0 ABG / Lab / Microbiology Data 09/21/23 05:11 09/20/23 05:27 Microbiology: Microbiology 09/24/23 07:17 Nasal Secretion SARS-CoV-2 Antigen (Rapid) - Final 09/20/23 05:15 Nasal Secretion SARS-CoV-2 Antigen (Rapid) - Final 09/17/23 03:57 Nasal Secretion SARS-CoV-2 Antigen (Rapid) - Final 09/13/23 03:31 Nasal Secretion SARS-CoV-2 Antigen (Rapid) - Final D/C Instructions Please Follow Up With: Dr. Ed Lipscomb Meaningful Use Info Meaningful Use Diagnoses (Choose all that apply): None applicable Discharge Plan Admission Admit Date/Time: 09/12/23 18:10 Primary Reason for Your Visit: Debility. Attending Provider: Ky Henderson Chi Primary Care Provider: LOGAN HADDAD Instructions Additional Instructions / Restrictions: [place] home alone 09/27, [facility] PT/OT/SN Discharge Orders/Prescriptions Prescriptions: New bisacodyl 5 mg Tablet,Delayed Release (Dr/Ec) 10 mg PO DAILY 30 Days Qty: 60 0RF gabapentin 600 mg Tablet 600 mg PO 4X/DAY 30 Days Qty: 120 0RF lidocaine 5 % Adhesive Patch,Medicated 2 patch topical DAILY 30 Days Qty: 60 0RF Protocol: *Topical Application Instructions APPLICATION INSTRUCTIONS: Apply over right groincovering part of lower abdomen and inner thigh. oxycodone 5 mg Tablet 5 - 10 mg PO Q4H PRN PRN (Reason: Pain Score 4-10) 3 Days Qty: 36 0RF doxepin 25 mg Capsule 25 mg PO QHS 30 Days Qty: 30 0RF baclofen 10 mg Tablet 20 mg PO 4X/DAY 30 Days Qty: 240 0RF diazepam 5 mg Tablet 10 mg PO 4X/DAY PRN PRN (Reason: Spasms) 7 Days Qty: 56 0RF Continued topiramate 100 mg tablet 100 mg PO BID Patient Comments: TAKE 1 TABLET BY MOUTH TWICE A DAY omeprazole 40 mg capsule,delayed release(DR/EC) 40 mg PO DAILY ondansetron HCl 4 mg tablet 4 mg PO Q8H PRN (Reason: NAUSEA) rosuvastatin 10 mg tablet 10 mg PO DAILY Patient Comments: take 1 tablet by mouth once daily cetirizine [Zyrtec] 10 mg tablet 10 mg PO DAILY PRN (Reason: allergy symptoms) lamotrigine 100 mg tablet 100 mg PO DAILY Patient Comments: take 1 tablet by mouth once daily meclizine 25 mg tablet 25 mg PO TID PRN (Reason: dizziness) Qty: 20 0RF celecoxib 200 MG capsule 200 mg PO DAILY fluticasone propionate 50 mcg/actuation spray,suspension 2 spray NASAL PRN PRN (Reason: ALLERGIES) amiloride 5 mg tablet 1 tab PO DAILY Patient Comments: TAKE 1 TABLET BY MOUTH EVERY DAY venlafaxine [Effexor XR] 75 mg Capsule,Extended Release 24hr 75 mg PO DAILY levothyroxine [Levoxyl] 88 mcg tablet 88 mcg PO DAILY Patient Comments: TAKE 1 TABLET BY MOUTH ONCE DAILY potassium chloride 20 mEq tablet extended release 60 meq PO DAILY Patient Comments: TAKE 3 TABLETS BY MOUTH ONCE DAILY triamterene-hydrochlorothiazid 37.5-25 mg tablet 1 tab PO DAILY Patient Comments: take 1 tablet by mouth once daily multivitamin [Daily Multi-Vitamin] Tablet 1 tab PO DAILY Patient Comments: ASKING AT APPT ON 08/24 ABOUT STOPPING cholecalciferol (vitamin D3) [Vitamin D3] 25 mcg (1,000 unit) capsule 25 mcg PO DAILY acetaminophen 500 mg Tablet 1,000 mg PO Q8 Qty: 0 0RF aspirin 325 mg Tablet 325 mg PO BREAKFAST Qty: 0 0RF sennosides-docusate sodium [Stool Softener-Stimulant Laxat] 8.6-50 mg Tablet 2 tab PO BID Qty: 0 0RF Discontinued gabapentin 600 mg tablet 600 mg PO BID dexamethasone sodium phosphate 5 ML drops 1 drp OP PRN PRN (Reason: MENERIES) bisacodyl 5 mg Tablet,Delayed Release (Dr/Ec) 5 mg PO DAILY Qty: 0 0RF lidocaine 5 % Adhesive Patch,Medicated 2 patch topical DAILY Qty: 0 0RF Protocol: *Topical Application Instructions APPLICATION INSTRUCTIONS: Please apply over right groin covering part of lower abdomen and inner thigh methocarbamol 500 mg Tablet 1,000 mg PO 3XD Qty: 0 0RF oxycodone 5 mg Tablet 5 - 10 mg PO Q4H PRN PRN (Reason: Pain Score 4-10) 2 Days Qty: 8 0RF oxycodone [OxyContin] 10 mg Tablet,Oral Only,Ext.Rel.12 Hr 20 mg PO BID 7 Days Qty: 28 0RF Rx Instructions: Give for 14 doses and then discontinue Referrals / Follow Up: LOGAN HADDAD [Other] (patient to schedule appointment) Ed Lipscomb MD [Med Staff - Active Staff] - 10/04/23 11:15 am Disposition Disposition (needs filled in before D/C Order can be placed): Home Health Service 09/24/231932 <Electronically signed by Ky Henderson MD> Cosigner Signature (if applicable): CC: Dr. Ky Henderson MD; LOGAN HADDAD~ Signed [facility] Work Phone: [phone]) 481-392002-09-2024 History and physical note Author [facility] September 21, 2023 1:50pm Note Date/Time September 12, 2023 8 :25pm [facility] Medical Records Department [address] [place] [address] History & Physical Exam 09/12/232013 MR#: [id number] Acct: [id number] Name: BRUNO PATTERSON Rep #:[id number] : 1970 52 From: Ky Henderson MD PCP: LOGAN HADDAD Status:ADM IN Location: [facility] TCU19-1 HPI - General General Date of Admission: 09/12/23 Date of Service: 09/13/23 Chief Complaint: Here for rehabilitation. HPI Narrative BRUNO PATTERSON, is a 52 Female who presents with followin09/03/2023 Admit to [facility]. Dr. Lipscomb/Dr. Lao performed L2-S1 lumbar fusion. 09/03/2023 PT/OT/CM. Oxygen 4-5 liters per NC for postoperative hypoxia. 09/04/2023 Hypoxia resolved. Amiloride held for hypotension. Straight cath for urinary retention. 09/05/2023 Urinary retention. Constipation treated with stool softeners. Clear liquid diet. Morillo for urinary retention. 09/06/2023 Diarrhea, abdominal cramps. Hemoglobin 9.0, transfuse if < 7.0. Potassium 3.0, corrected per protocol. 09/06/2023 Abdominal pain. Voiding trial next day. Advance diet to regular diet. 09/06/2023 Dr. Cesar suspects acute cholecystitis, NPO, IV antibiotics. 09/07/2023 Abdominal pain. RUQ ultrasound showed mildly distended gallbladder, no stones. Dr. Cesar feels patient has ileus, not cholecystitis, treat with bowel regimen, replete potassium. 09/08/2023 Back pain, abdominal pain. Discharge to rehab when medically stable. 09/08/2023 BM's, passing gas. KUB showed stable colonic ileus. Doubt gallstone cholecystitis. 09/09/2023 Ativan, Oxycodone, Dilaudid IV for pain/muscle spasms. 09/09/2023 Ileus improving. Regular diet, No nausea, No vomiting. Spinal cord stimulator helpful. 09/10/2023 Right hip, right back spasms, increase gabapentin to 600mg tid. 09/10/2023 No abdominal pain, tolerating regular diet, having regular BM's, flatus. 09/11/2023 Right hp pain. 09/12/2023 Right hip pain better. 09/12/2023 Admit to TCU with debility, here for rehabilitation, strengthening, prior to discharge home alone. [facility] Medical History (Updated 09/12/23 @ 20:[address] Ky Henderson MD) Acute maxillary sinusitis, unspecified Ambulates with cane Anemia Anxiety Arthritis Back problem Depression Dietary restriction Easy bruising Former smoker Gastric reflux Hearing problem History of edema History of pain when walking History of ulceration Hives Hypokalemia IBS (irritable bowel syndrome) Injury of head and neck Leg cramps Loss of hearing Menieres disease Migraine headache Neuropathy Osteoarthritis Pain Pneumonia Seasonal allergies Thyroid disease Ulcer Vertigo Vision problem Vitamin deficiency Wears glasses Home Medications celecoxib 200 mg capsule 200 mg PO DAILY PAIN 12/27/16 [History Last Taken 09/02/23] dexamethasone sodium phosphate 0.1 % eye drops 1 drp OP PRN PRN [facility] 12/27/16 [History Last Taken Unknown] amiloride 5 mg tablet 1 tab PO DAILY MENERIES 03/27/20 [History Last Taken 09/02/23] gabapentin 600 mg tablet 600 mg PO BID PAIN 08/17/21 [History Last Taken 09/12/23 14:15] omeprazole 40 mg capsule,delayed release 40 mg PO DAILY PER DR 08/17/21 [History Last Taken 09/12/23 08:00] ondansetron HCl 4 mg tablet 4 mg PO Q8H PRN NAUSEA 08/17/21 [History Last Taken Unknown] topiramate 100 mg tablet 100 mg PO BID MIGRAINES 08/17/21 [History Last Taken 09/12/23 08:00] fluticasone propionate 50 mcg/actuation nasal spray,suspension 2 spray PRN PRN ALLERGIES 10/21/21 [History Last Taken Unknown] venlafaxine 75 mg capsule,extended release 24 hr (Effexor XR) 75 mg PO DAILY PERDR 12/27/21 [History Last Taken 09/12/23 08:00] rosuvastatin 10 mg tablet 10 mg PO DAILY PER DR REAGAN 01/24/23 [History Last Taken 09/12/23] levothyroxine 88 mcg tablet (Levoxyl) 88 mcg PO DAILY Thyroid 02/20/23 [History Last Taken 09/12/23 05:00] potassium chloride 20 mEq tablet,extended release 60 meq PO DAILY PER DR 02/20/23 [History Last Taken 09/02/23] triamterene 37.5 mg-hydrochlorothiazide 25 mg tablet 1 tab PO DAILY PER DR 02/20/23 [History Last Taken 09/02/23] cetirizine 10 mg tablet (Zyrtec) 10 mg PO DAILY PRN allergy symptoms 03/08/23 [History Last Taken 09/02/23] lamotrigine 100 mg tablet 100 mg PO DAILY PER DR 03/08/23 [History Last Taken 09/12/23 08:00] meclizine 25 mg tablet 25 mg PO TID PRN dizziness #20 tabs 05/14/23 [Rx Last Taken 09/04/23] cholecalciferol (vitamin D3) 25 mcg (1,000 unit) capsule (Vitamin D3) 25 mcg PO DAILY Supplement 08/20/23 [History Last Taken 09/02/23] multivitamin (Daily Multi-Vitamin tablet) 1 tab PO DAILY PER DR 08/20/23 [History Last Taken 09/02/23] acetaminophen 500 mg tablet 1,000 mg (2 x 500 mg) PO Q8 Pain #0 tabs 09/12/23 [Rx Last Taken 09/12/23 14:15] aspirin 325 mg tablet 325 mg PO BREAKFAST Heart #0 tabs 09/12/23 [Rx Last Taken 09/11/23] bisacodyl 5 mg tablet,delayed release 5 mg PO DAILY Constipation #0 tabs 09/12/23 [Rx Last Taken 09/12/23 05:05] lidocaine 5 % topical patch 2 patch topical DAILY Pain #0 ea 09/12/23 [Rx Last Taken 09/12/23 07:55] methocarbamol 500 mg tablet 1,000 mg (2 x 500 mg) PO 3XD Muscle Relaxer #0 tabs 09/12/23 [Rx Last Taken 09/12/23 12:20] oxycodone 10 mg tablet,crush resistant,extended release 12 hr (OxyContin) 20 mg (2 x 10 mg) PO BID Pain 7 days #28 tabs 09/12/23 [Rx Last Taken 09/12/23 06:55] oxycodone 5 mg tablet 5 - 10 mg (1 - 2 x 5 mg) PO Q4H PRN PRN Pain Score 4-10 2 days #8 tabs 09/12/23 [Rx Last Taken 09/12/23 06:55] sennosides 8.6 mg-docusate sodium 50 mg tablet (Stool Softener-Stimulant Laxative) 2 tab PO BID Constipation #0 tabs 09/12/23 [Rx Last Taken 09/12/23 07:55] Allergy/AdvReac Type Severity Reaction Status Date / Time shellfish derived Allergy Severe vomitting Verified 09/03/23 06:13 Penicillins Allergy Hives Verified 09/03/23 06:13 citric acid AdvReac Severe wears dowm Verified 09/03/23 06:13 linning of mouth duloxetine [From Cymbalta] AdvReac Intermediate Other Verified 09/03/23 06:13 gluten AdvReac Intermediate stomach Verified 09/03/23 06:13 discomfort Family History Other Alcohol abuse Anxiety Arthritis Autoimmune disease Bowel disease Colon cancer Depression Diabetes Heart disease High cholesterol Hypertension Mental disorder Psychiatric care Severe allergic reaction Thyroid disorder Surgical History H/O total hip arthroplasty S/P insertion of spinal cord stimulator Social History (Updated 09/12/23 @ 20:[address] Ky Henderson MD) household members: none Smoking Status: Current every day smoker tobacco type: e-cigarettes alcohol intake: former year quit: 2016 substance use type: does not use frequency: daily ROS Constitutional Constitutional: Denies chills, fever(s) or weight gain ENT HEENT: Denies headache(s), nasal congestion or nasal discharge Cardiovascular Cardiovascular: Denies chest pain or palpitations Respiratory/Chest Respiratory/Chest: Denies cough, excessive phlegm production or shortness of breath with exertion Gastrointestinal Gastrointestinal: Denies abdominal pain, nausea or vomiting Genitourinary Genitourinary: Denies dysuria Musculoskeletal Musculoskeletal: Reports back pain, muscle spasms and radiating pain into limb; Denies joint pain or joint swelling Integumentary Integumentary: Denies rash or wounds Neurologic Neurologic: Denies focal weakness, numbness or tingling Psychiatric Psychiatric: Denies anxiety, auditory hallucinations, depression, homicidal ideation or suicidal ideation Vital Signs Vital Signs Vital Signs: 09/12/23 18:38 Temperature 97.8 F Temperature Source Temporal Pulse Rate 81 Respiratory Rate 18 Blood Pressure 158/92 H Blood Pressure Mean 114 Blood Pressure Source Monitor Blood Pressure Position Semi-Fowlers Blood Pressure Location Right Arm Pulse Ox 97 Oxygen Delivery Method Room Air Weight Weight: 102.285 kg Body Mass Index (BMI) 37.5 Physical Exam Const alert General Appearance: cooperative HEENT normocephalic Eyes PERRL and EOMs intact bilaterally Neck supple, no JVD and no carotid bruits Resp normal respiratory effort, normal air movement and clear to auscultation bilaterally Cardio regular rate and regular rhythm GI normal to inspection, nondistended, normoactive bowel sounds, non-tender and non-distended Extremity normal capillary refill General Extremity: Negative for edema Skin no rashes or lesions noted General Skin Exam: no breakdown Psych affect normal Appearance: appropriate Results Lab / Micro Data 09/13/23 05:21 09/13/23 05:21 Assessment & Plan Assessment/Plan (1) Debility: (2) S/P lumbar spinal fusion: (3) Urinary retention: (4) Fecal impaction of colon: (5) Ileus: (6) Hypokalemia: (7) Postoperative anemia: (8) Osteoarthritis: (9) Neuropathic pain: (10) GERD (gastroesophageal reflux disease): (11) Allergic rhinitis: (12) Depression: (13) Hyperlipidemia: (14) Hypothyroidism: (15) Hypertension: (16) Migraine headache: (17) M?ni?re's disease: PLAN: Plan 52 year old female with below past medical history hospitalized for elective L5- S1 fusion 09/03/2023, postoperative course complicated by hypoxia, urinary retention, fecal impaction of colon, ileus, hypokalemia, postoperative anemia, admitted to TCU with debility, here for rehabilitation, strengthening, prior to discharge home alone. * Debility - PT/OT. * Pain - Tylenol 1000mg q8, Oxycodone 20mg bid thru 09/19/2023, Oxycodone 5-10mg q4 prn, Lidoderm 2 patches topical daily. * Bowel - senna/colace 2 tablets bid, Dulcolax 5mg daily. * Adult immunization - Administer pneumonia vaccine, covid vaccine, flu vaccine as appropriate. * DVT prophylaxis - Hold, monitor. * Meniere's disease - Amiloride 5mg daily, Meclizine 25mg tid prn. * CV prophylaxis - Aspirin 325mg daily. * Hyperlipidemia - Atorvastatin 20mg qhs. * Osteoarthritis - Celebrex 200mg daily. * Vitamin D deficiency - D3 25mcg daily. * Allergic rhinitis - Flonase 2 sprays daily prn, Loratadine 10mg daily prn. * Neuropathic pain - Gabapentin 600mg bid. * Depression - Venlafaxine XR 75mg daily, Lamictal 100mg daily, stable chronic salvage determiner use, GDR not recommended. * Hypothyroidism - Levothyroxine 88mcg daily. * Muscle spasm - Robaxin 1000mg tid. * Nutrition - MVI daily. * Nausea - Zofran odt 4mg q8 prn. * GERD - Pantoprazole 40mg daily. * Hypokalemia - KCL 60mg daily. * Migraine - Topamax 100mg bid. * Hypertension - Maxzide 37.5/25mg daily. 09/13/23 0750 <Electronically signed by Ky Henderson MD> Cosigner Signature (if applicable): CC: Dr. Ky Henderson MD; LOGAN HADDAD~ Signed ADDENDUM by Dr. Ky Henderson MD on 09/14/23 at 0757 Addendum Muscle spasm - Robaxin 1000mg tid ineffective, add Diazepam 5mg 4x/day prn spasm. 09/14/23 0757<Electronically signed by Ky Henderson MD> Cosigner Signature (if applicable): cc: Dr. Ky Henderson MD; LOGAN HADDAD ~* Signed ADDENDUM by Dr. Ky Henderson MD on 09/16/23 at 1019 Addendum Small bowel enteritis - rx Doxycycline 100mg bid x 7 days. Fecal impaction of colon - Magnesium citrate 300ml po x 1 dose, Soap Suds Enema x 1. 09/16/23 1019<Electronically signed by Ky Henderson MD> Cosigner Signature (if applicable): cc: Dr. Ky Henderson MD; LOGAN HADDAD ~* Signed ADDENDUM by Dr. Ky Henderson MD on 09/17/23 at 0742 Addendum Insomnia - Rx Doxepin 25mg qhs. 09/17/23 0742<Electronically signed by Ky Henderson MD> Cosigner Signature (if applicable): cc: Dr. Ky Henderson MD; LOGAN HADDAD ~* Signed ADDENDUM by Dr. Ky Henderson MD on 09/21/23 at 1350 Addendum Neuropathic pain - spoke with resident, resident father present, neuropathic pain uncontrolled, increase gabapentin to 600mg 4x/day, add Depakote 500mg bid. 09/21/23 1350<Electronically signed by Ky Henderson MD> Cosigner Signature (if applicable): cc: Dr. Ky Henderson MD; LOGAN HADDAD ~* Signed [facility] Work Phone: 1(214) 618-774502-07-2024 Miscellaneous Notes* Telephone Encounter - Charissa Garrido - 09/19/2023 9:32 AM EST Physician: Dr. Angulo Call from pharmacy requesting refill. Please E-Scribe Last OV: 03/27/[address] Angulo Future OV: no future appointments scheduled with Dr. Angulo Requested Prescriptions Pending Prescriptions Disp Refills lamoTRIgine (LAMICTAL) 100 mg tablet [Pharmacy Med Name: lamoTRIgine 100MG TABS*] 30 tablet 4 Sig: take 1 tablet by mouth daily Pharmacy Name: [facility] Phone #: [phone] 03/27/2023 ASSESSMENT: No diagnosis found. Vestibular migraine and intractable headache Post traumatic headache Chronic daily headache PLAN: No orders found for this visit on 03/27/23. Lamictal 25 mg for vestibular migraine Follow up visit after trial of lamictal There are no Patient Instructions on file for this visit. [facility] Progress note Author Fred Morin [facility] September 14, 2023 2:17pm Note Date/Time September 14, 2023 1 :42pm [facility] Medical Records Department [address] [place] [id number] Progress Note - Pharmacy 09/14/23 1328 MR#: [id number] Acct: [id number] Name: BRUNO PATTERSON Rep #:[id number] : 1970 52 From: Fred Morin PCP: LOGAN HADDAD Status:ADM IN Location: [place] [address] TC RX Drug Regimen Review Subjective/Objective Subjective/Objective: Subjective: 52 YOF admitted to [facility] 09/12/23 s/p hospitalization for a L2-S1 lumbar fusion. Hospitalization was complicated by anemia, urinary retention, andbowel ileus. Patient with significant pain, especially in right hip. Admitted [facility] 09/12 for rehabilitation ans strengthening prior to discharge home where she resides alone. Objective: Allergies shellfish derived Allergy (Severe, Verified 09/03/23 06:13) vomitting Penicillins Allergy (Verified 09/03/23 06:13) Hives citric acid Adverse Reaction (Severe, Verified 09/03/23 06:13) wears dowm linning of mouth blisters in mouth duloxetine [From Cymbalta] Adverse Reaction (Intermediate, Verified 09/03/23 06:13) Other weight gain gluten Adverse Reaction (Intermediate, Verified 01/22/24 06:13) stomach discomfort Current Medications Generic Name Dose Route Start Last Admin Trade Name Varunq PRN Reason Stop Dose Admin Acetaminophen 1,000 mg 09/12/23 22:00 09/14/23 05:06 Acetaminophen 500 Mg Tablet PO 1,000 mg Q8 LINETTE Administration Amiloride HCl 5 mg 09/13/23 11:00 09/13/23 13:54 Amiloride Hcl 5 Mg Tablet PO 5 mg DAILY LINETTE Administration Aspirin 325 mg 09/13/23 08:00 09/14/23 09:45 Aspirin 325 Mg Tablet PO 325 mg BREAKFAST LINETTE Administration Atorvastatin Calcium 20 mg 09/12/23 22:00 09/13/23 21:25 Atorvastatin Calcium 20 Mg Tablet PO 20 mg QHS LINETTE Administration Bisacodyl 5 mg 09/13/23 10:00 09/14/23 09:46 Bisacodyl 5 Mg Tablet PO 5 mg DAILY LINETTE Administration Bisacodyl 10 mg 09/13/23 16:56 09/13/23 18:06 Bisacodyl 10 Mg Suppository RC 10 mg DAILY PRN Administration Constipation Celecoxib 200 mg 09/13/23 10:00 09/14/23 09:46 Celecoxib 200 Mg Capsule PO 200 mg DAILY LINETTE Administration Cholecalciferol 25 mcg 09/13/23 10:00 09/14/23 09:47 Cholecalciferol (Vit D3) 25 Mcg Tablet (1,000 Units) PO 25 mcg DAILY LINETTE Administration Diazepam 5 mg 09/14/23 07:56 09/14/23 11:12 Diazepam 5 Mg Tablet PO 5 mg 4X/DAY PRN PRN Administration SPASMS Fluticasone Propionate 2 spray 09/12/23 18:52 Fluticasone 0.05% 1 [place] Nasal.Sry NASAL DAILY PRN PRN ALLERGIES Gabapentin 600 mg 09/12/23 22:00 09/14/23 09:43 Gabapentin 600 Mg Tablet PO 600 mg BID LINETTE Administration Lamotrigine 100 mg 09/13/23 10:00 09/14/23 09:44 Lamotrigine 100 Mg Tablet PO 100 mg DAILY LINETTE Administration Levothyroxine Sodium 88 mcg 09/13/23 06:00 09/14/23 05:06 Levothyroxine 88 Mcg Tablet PO 88 mcg 0600 LINETTE Administration Lidocaine 2 patch 09/13/23 10:00 09/14/23 09:44 Lidocaine 5% Patch TOPICAL 2 patch DAILY LINETTE Administration Protocol Loratadine 10 mg 09/12/23 18:52 Loratadine 10 Mg Tablet PO DAILY PRN allergy symptoms Meclizine HCl 25 mg 09/12/23 18:52 Meclizine Hcl 25 Mg Tablet PO TID PRN dizziness Methocarbamol 1,000 mg 09/12/23 22:00 09/14/23 05:06 Methocarbamol 500 Mg Tablet PO 1,000 mg TID LINETTE Administration Multivitamins 1 tablet 09/13/23 08:00 09/14/23 09:46 Multivitamins,Therapeutic Tablet PO 1 tablet DAILYCM LINETTE Administration Ondansetron HCl 4 mg 09/12/23 20:32 Ondansetron Odt 4 Mg Tablet PO Q8H PRN NAUSEA/VOMITING Oxycodone HCl 5 - 10 mg 09/12/23 18:52 09/14/23 11:08 Oxycodone 5 Mg Tablet PO 10 mg Q4H PRN PRN Administration Pain Score 4-10 Oxycodone HCl 20 mg 09/12/23 22:00 09/14/23 09:43 Oxycodone Hcl Cr 10 Mg Tablet PO 09/19/23 10:01 20 mg BID LINETTE Administration Pantoprazole Sodium 40 mg 09/13/23 10:00 09/14/23 09:47 Pantoprazole Sodium 40 Mg Tablet PO 40 mg DAILY LINETTE Administration Potassium Chloride 60 meq 09/13/23 08:00 09/14/23 09:45 Potassium Chloride Oral Tablet 20 Meq PO 60 meq DAILYCM LINETTE Administration Senna/Docusate Sodium 2 tablet 09/12/23 22:00 09/14/23 09:47 Senna/Docusate Sodium 1 Tablet PO 2 tablet BID LINETTE Administration Sodium Chloride 10 - 40 ml 09/12/23 19:23 0.9% Saline Lock 10 Ml Syringe IV UD PRN SALINE FLUSH Topiramate 100 mg 09/12/23 22:00 09/14/23 09:43 Topiramate 100 Mg Tablet PO 100 mg BID LINETTE Administration Triamterene/Hydrochlorothiazide 1 cap 09/13/23 10:00 09/14/23 09:47 Triamterene 37.5mg/Hctz 25mg Capsule PO 1 cap DAILY LINETTE Administration Tuberculin PPD 0.1 ml 09/20/23 10:00 Tuberculin,Purif.Prot.Deriv. 50 Tu/Ml Vial ID 09/20/23 10:01 X1 ONE Venlafaxine HCl 75 mg 09/13/23 10:00 09/14/23 09:44 Venlafaxine Xr 75 Mg Capsule PO 75 mg DAILY LINETTE Administration Problem List (Updated 09/12/23 @ 20:[address] Ky Henderson MD) Migraine headache (Acute) Hypertension (Chronic) Hypothyroidism (Acute) Hyperlipidemia (Acute) Depression (Acute) Allergic rhinitis (Acute) GERD (gastroesophageal reflux disease) (Acute) Neuropathic pain (Acute) Osteoarthritis (Acute) Postoperative anemia (Acute) Fecal impaction of colon (Acute) Urinary retention (Acute) Debility (Acute) Ileus (Acute) S/P lumbar spinal fusion (Acute) M?ni?re's disease (Chronic) Hypokalemia (Acute) Vital Signs Temp Pulse Resp BP Pulse Ox O2 Del Method 97.3 F L 74 16 125/81 H 98 Room Air 09/13/23 14:00 09/13/23 21:00 09/13/23 21:00 09/13/23 14:00 09/13/23 21:00 09/13/23 21:00 Oxygen Delivery Method Room Air Weight: 102.285 kg Body Mass Index (BMI) 37.5 Sodium 140 mmol/L (136-145) 09/13/23 05:21 Potassium 3.7 mmol/L (3.5-5.1) 09/13/23 05:21 Chloride 111 mmol/L (98-107) H 09/13/23 05:21 Carbon Dioxide 27.0 mmol/L (21.0-32.0) 09/13/23 05:21 Anion Gap 2 (5-15) L 09/13/23 05:21 BUN 19 mg/dL (7-18) H 09/13/23 05:21 Creatinine 0.67 mg/dL (0.55-1.02) 09/13/23 05:21 Est GFR (MDRD) Af Amer 119 mL/min (>60) 09/13/23 05:21 Est GFR (MDRD) Non-Af 99 mL/min (>60) 09/13/23 05:21 BUN/Creatinine Ratio 28.5 RATIO (10-20) H 09/13/23 05:21 Glucose 94 mg/dL (74-106) 09/13/23 05:21 Assessment/Plan: 1. Pain: Tylenol 1000mg PO Q8, Lidocaine patch 2 patches topically daily, Oxycodone CR 20mg PO BID thru 09/19/23, Oxycodone 5-10mg PO Q4h PRN. Please continue to monitor for increased/decreased S/S pain, local site redness/irritation, PRN medication usage, constipation/oversedation with scheduled narcotic use. - To date, the patient has used 7 doses of PRN oxycodone since admission, with pre-med pain score rated 7-10 and post-pain medical coding manager rate 0/10. Please continue to monitor use and consider extending schedule use if PRN usage remainshigh. 2. Osteoarthritis: Celebrex 200mg PO daily. Please continue to monitor for medication effectiveness, renal function (SCr 0.67 09/13), platelet counts (524 on09/13). 3. HTN/HLD/CV: Aspirin 325mg PO Daily, Lipitor 20mg PO QHS, Triamterene/HCTZ 1 cap PO Daily. Please continue to monitor for S/S bleeding/bruising, BP (last 125/51), Lipid panel annually or sooner if clinically indicated (last done 01/2019), renal function (WNL), and potassium level (3.7 on 09/13). 4. Hypothyroid: Synthroid 88mcg PO Daily. Please continue to monitor TSH levels as clinically indicated (last TSH 1.68 on 08/20/23), S/S hypo/hyperthyroid. 5. GERD: Protonix 40mg PO Daily. Please continue to monitor for improvement in GERD symptoms. Please also encourage non-pharmacologic treatments to help minimize GERD flare-ups. 6. Hypokalemia: KCl 60mEq PO Daily. Please continue to monitor for nausea/vomiting, abdominal pain, K level (3.7 on 09/13). 7. Neuropathic pain: Gabapentin 600mg PO BID. Please continue to monitor for fall risk, increased/decreased pain. 8. Meniere's Disease: Amiloride 5mg PO Daily, Meclizine 25mg PO TID PRN. Please continue to monitor BP (last 125/51), potassium levels (last 3.7 on 09/13), PRN medication use (pt has not needed any doses since admission). 9. Migraine: Lamictal 100mg PO daily, Topiramate 100mg PO BID. Please continue to monitor for dizziness, oversedation, blurred vision, diarrhea, n/v. 10. Allergic Rhinitis: Loratadine 10mg PO Daily PRN, Flonase 2 spray daily PRN. Please continue to monitor for symptoms, medication effectiveness, PRN med use. - To date, the patient has not required any PRN medication doses 11. Nausea: Zofran 4mg PO Q8h PRN. Please continue to monitor for headache, PRN use, medication effectiveness. - The patient has not required any PRN medication doses since admission. 12. General Wellness: Vitamin D 25mcg PO Daily, MVI 1 tab PO Daily. 13. Bowel: Dulcolax 5mg PO Daily, Senna/docusate 2 tab PO BID, Dulcolax 10mg [place] Daily PRN. Please continue to monitor for increased/decreased constipation and/or diarrhea. -The patient had a documented bowel movement today. Please continue to monitor closely given narcotic usage and increased risk of constipation. Assessment/Plan for indications treated with psychotropic medications: 1. Depression: Effexor XR 75mg PO Daily. Please consider a GDR by 03/2024 if clinically indicated, thank you. 2. Muscle spasm: Methocarbamol 1000mg PO TID, Valium 5mg PO 4x/day PRN. Please continue to monitor patient closely for oversedation, especially with ongoing narcotic use. Please also continue to monitor for PRN use, medication effectiveness. - To date, the patient has required 1 PRN dose of Valium since admission. Medical chart and medication regimen reviewed. The following medication irregularities or issues were identified: 1. Depression: Effexor XR 75mg PO Daily, Lamictal 100mg PO daily. Please consider a GDR by 03/2024 if clinically indicated, thank you. 2. Hyperlipidemia: Please consider obtaining a lipid panel for this patient if clinically indicated. it appears the last time this was checked was January 2019. Date Date of Note:: 09/14/23 09/14/23 1417 <Electronically signed by Fred Morin> Fred Morin Cosigner Signature (if applicable): CC: ~ Signed [facility] Work Phone: 1(730) 362-303908-15-2023 History of Present illness Narrative* Dilia Angulo MD - 03/27/2023 4:13 PM EDT VESTIBULAR MIGRIANEThis note was created using NoteWriter. Subjective Bruno Patterson is a 52 year old female with [...] Adult) Pulse 86 Ht 165.1 cm (5' 5) Wt 102.9 kg (226 lb 14.4 oz) [...] least 6-8, 8 oz glasses of water/d * Dilia Angulo MD - 03/27/2023 4:10 PM EDT Interval history Headache Bruno Patterson is a 51 year old female seen [...] day to affected ear as needed vertigo triamterene-hydroCHLOROthiazide (MAXZIDE-25) 37.5-25 mg per tablet Take 1 [...] daily. Twice a week (Patient not taking: Nosig reported) ondansetron orally disintegrating (ZOFRAN ODT) 4 [...] the date of the service which included [id number] patient care, completing clinical documentation, obtaining and/or reviewing separately obtained history, performing a medically appropriate examination, counseling and educating the patient/family/caregiver, and ordering medications, tests, or procedures Dilia Angulo MD [facility] Discharge summary Author Jennifer [facility] February 20, 2023 2:51pm Note Date/Time February 20, 2023 2:37 pm [facility] Medical Records Department [address] [place] [address] Emergency Department Summary 02/20/23 MR#: [id number] Acct: [id number] Name: BRUNO PATTERSON Rep #:[id number] : 1970 52 From: Jennifer Arzola PCP: OUT OF TOWN DOCTOR Status:REG ER Location: ED [facility] History of Present Illness Chief Complaint: Back Informant: patient Narrative Narrative: Patient is a 52-year-old female with history of degenerative disc disease and chronic back pain, degenerative disc disease of the lumbosacral region, lumbar spondylosis, spinal stenosis and bursitis of her hip who has a spinal stimulatorpresenting with worsening right lower back pain and leg pain. Patient states she has had pain in her right hip going into her groin and going down to her foot since [place] time 2021 (for the past 7 months). She saw Dr. Amy caceres diagnosed with bursitis and did have an injection for that by Dr. Fabian. She was referred back to physical therapy and had her first session yesterday. She states she feels that her pain is getting significantly worse. She states in the past getting to the pool for physical therapy was really helpful. She denies any new sudden falls or aggravating events. She states she has pretty severe pain in her right lower back that radiates down her anterior thigh. She notes it is worse with movement. She states she sometimes gets tingling of her entire right leg. She is taking gabapentin, NSAIDs and Tylenol for pain. She states she does not really like to take opioids because of her Meniere's disease. She denies any bowel or bladder incontinence or saddle anesthesia. She notes she does have a history of sciatica but this feels different. No other complaints or concerns at this time. Denies any fever or chills. [facility] Medical History Ambulates with cane Anemia Anxiety Arthritis Back problem Depression Dietary restriction Easy bruising Former smoker Gastric reflux Hearing problem History of edema History of pain when walking History of ulceration Hives Hypokalemia IBS (irritable bowel syndrome) Injury of head and neck Leg cramps Loss of hearing Menieres disease Migraine headache Neuropathy Osteoarthritis Pain Pneumonia Seasonal allergies Thyroid disease Ulcer Vision problem Vitamin deficiency Wears glasses Home Medications celecoxib 200 mg capsule 200 mg PO DAILY 12/27/16 [History Last Taken Unknown] cetirizine 5 mg-pseudoephedrine ER 120 mg tablet,extended release,12hr 1 ea PO DAILY 12/27/16 [History Last Taken Unknown] dexamethasone sodium phosphate 0.1 % eye drops 1 drp OP PRN PRN [facility] 12/27/16 [History Last Taken Unknown] levothyroxine 75 mcg tablet 75 mcg PO DAILY 12/27/16 [History Last Taken 12/30/21] meclizine 12.5 mg tablet 12.5 mg PO DAILY PRN PRN Dizziness 12/27/16 [History Last Taken Unknown] amiloride 5 mg tablet 1 tab PO DAILY [facility] 03/27/20 [History Last Taken Unknown] gabapentin 600 mg tablet 600 mg PO BID 08/17/21 [History Last Taken 12/30/21] omeprazole 40 mg capsule,delayed release 40 mg PO DAILY 08/17/21 [History Last Taken 12/30/21] ondansetron HCl 4 mg tablet 4 mg PO Q8H PRN NAUSEA 08/17/21 [History Last Taken Unknown] topiramate 100 mg tablet 100 mg PO BID 08/17/21 [History Last Taken 12/30/21] fluticasone propionate 50 mcg/actuation nasal spray,suspension 2 spray PRN PRN ALLERGIES 10/21/21 [History Last Taken Unknown] venlafaxine 75 mg capsule,extended release 24 hr (Effexor XR) 75 mg PO DAILY 12/27/21 [History Last Taken Unknown] rosuvastatin 10 mg tablet 10 mg PO DAILY 01/24/23 [History Last Taken Unknown] levothyroxine 88 mcg tablet (Levoxyl) 88 mcg PO DAILY 02/20/23 [History Last Taken Unknown] potassium chloride 20 mEq tablet,extended release 60 meq PO DAILY 02/20/23 [History Last Taken Unknown] prednisone 20 mg tablet 40 mg (2 x 20 mg) PO DAILY #8 tabs 02/20/23 [Rx Last Taken Unknown] tramadol 50 mg tablet 50 mg PO Q6H PRN pain 3 days #12 tabs 02/20/23 [Rx Last Taken Unknown] triamterene 37.5 mg-hydrochlorothiazide 25 mg tablet 1 tab PO DAILY 02/20/23 [History Last Taken Unknown] Allergy/AdvReac Type Severity Reaction Status Date / Time citric acid Allergy Severe wears dowm Verified 02/20/23 13:10 linning of mouth shellfish derived Allergy Severe vomitting Verified 02/20/23 13:10 duloxetine [From Cymbalta] Allergy Other Verified 02/20/23 13:10 Penicillins Allergy Hives Verified 02/20/23 13:10 gluten AdvReac Intermediate stomach Verified 02/20/23 13:10 discomfort Family History Other Alcohol abuse Anxiety Arthritis Autoimmune disease Bowel disease Colon cancer Depression Diabetes Heart disease High cholesterol Hypertension Mental disorder Psychiatric care Severe allergic reaction Thyroid disorder Surgical History H/O total hip arthroplasty S/P insertion of spinal cord stimulator Social History Smoking Status: Former smoker alcohol intake: current alcohol intake frequency: 0-2 drinks per day substance use type: does not use frequency: daily ROS ROS ED Constitutional Constitutional ED: Denies chills or fever(s) Cardiovascular Cardiovascular: Denies chest pain Musculoskeletal Musculoskeletal: Reports arthralgias and back pain Integumentary Denies rash Neurologic Neurologic: Reports paresthesias RLE; Denies headache(s) or weakness Psychiatric Psychiatric: Denies anxiety Hematologic/Lymphatic Hematologic/Lymphatic: Denies easy bleeding or easy bruising EXAM Physical Exam Const Vital Signs: 02/20/23 13:09 Temperature 96.8 F L Temperature Source Temporal Pulse Rate 93 Respiratory Rate 18 Blood Pressure 153/99 H Blood Pressure Mean 117 Pulse Ox 98 Oxygen Delivery Method Room Air Positive well nourished, well developed and obese General Appearance ED: well developed Nutritional Appearance: obese HEENT Reports moist mucous membranes Eyes PERRL and EOMs intact bilaterally Resp normal respiratory effort Cardio regular rate and regular rhythm Cardio Narrative: 2+ DP pulses Back/Spine Back/Spine Narrative: No midline tenderness. Surgical incision is well-healed of the lower lumbar spine present. Patient has significant tenderness of the right lower lumbar paraspinal region. Positive ipsilateral straight leg test on the right, negative straight leg test on the left. Extremity normal to inspection General Extremety ED: Negative for edema General Extremity: Negative for edema Neuro oriented x3 Neuro Narrative: 5/5 strength with plantar and dorsiflexion of the foot. Motor Exam: strength 5/5 throughout Psych mental status grossly normal Skin no rashes or lesions noted and no wounds MDM MDM MDM Narrative Medical decision making narrative: Patient is evaluated for acute on chronic back pain rating to her leg. She doeshave an extensive history of degenerative disc disease and lumbar issues. She has been having acute flare. I question if there is involvement of the lateral cutaneous nerve as it seems to come from her back to go around her hip and into the anterior thigh. Patient is given a dose of Toradol for pain in the ER. Shedoes not have any findings distant with cauda equina syndrome and she does not have midline tenderness or any other red flag symptoms requiring emergent imaging at this time. She will be placed on a burst of steroids. We discussed that frequent steroids are not ideal and she does verbalize agreement understanding of this but would still like to try another course of steroids as she thinks that they do help. Will be given a short course of tramadol for breakthrough pain. I did check an OAR[place] report and patient has not had any opioids prescribed, though working on there is gabapentin. Patient has appointment see pain management next with Dr. Wolff. He is given return precautions. She does have a rollator to use at home as needed. Discharged home in stable condition. Discharge Plan Triage Chief Complaint: Back ED Provider: Jennifer Anderson Dx/Rx/DC Orders Clinical Impression: Acute exacerbation of chronic low back pain, Lumbar radiculopathy, right Instructions: ED Back and Neck Pain, General Prescriptions: New prednisone 20 mg tablet 40 mg PO DAILY Qty: 8 0RF tramadol 50 mg tablet 50 mg PO Q6H PRN (Reason: pain) 3 Days Qty: 12 0RF No Action topiramate 100 mg tablet 100 mg PO BID Patient Comments: TAKE 1 TABLET BY MOUTH TWICE A DAY gabapentin 600 mg tablet 600 mg PO BID omeprazole 40 mg capsule,delayed release(DR/EC) 40 mg PO DAILY ondansetron HCl 4 mg tablet 4 mg PO Q8H PRN (Reason: NAUSEA) rosuvastatin 10 mg tablet 10 mg PO DAILY Patient Comments: take 1 tablet by mouth once daily cetirizine-pseudoephedrine 1 EACH tablet extended release 12 hr 1 ea PO DAILY celecoxib 200 MG capsule 200 mg PO DAILY meclizine 12.5 MG tablet 12.5 mg PO DAILY PRN PRN (Reason: Dizziness) dexamethasone sodium phosphate 5 ML drops 1 drp OP PRN PRN (Reason: MENERIES) levothyroxine 75 MCG tablet 75 mcg PO DAILY fluticasone propionate 50 mcg/actuation spray,suspension 2 spray NASAL PRN PRN (Reason: ALLERGIES) amiloride 5 mg tablet 1 tab PO DAILY Patient Comments: TAKE 1 TABLET BY MOUTH EVERY DAY venlafaxine [Effexor XR] 75 mg Capsule,Extended Release 24hr 75 mg PO DAILY levothyroxine [Levoxyl] 88 mcg tablet 88 mcg PO DAILY Patient Comments: TAKE 1 TABLET BY MOUTH ONCE DAILY potassium chloride 20 mEq tablet extended release 60 meq PO DAILY Patient Comments: TAKE 3 TABLETS BY MOUTH ONCE DAILY triamterene-hydrochlorothiazid 37.5-25 mg tablet 1 tab PO DAILY Patient Comments: take 1 tablet by mouth once daily Primary Care Provider: [facility] Doctor,Out of Referrals: Mercy Jin MD [Med Staff - Active Staff] - Luther Schneider DO [Med Staff - Active Staff] - [facility] Doctor,Out of [Primary Care Provider] - Activity Restrictions/Additional Instructions: Please follow-up with your pain doctor as we discussed. Only take the tramadol as needed. Continue aching anti-inflammatories as well as Tylenol in addition to the steroids prescribed. You been given information for one of our credentialing specialist as well if needed. Disposition Disposition: Home, Self Care What to do if you have Problems For any increased pain, shortness of breath, bleeding, nausea or vomiting, chestpain, or any unexpected problems, contact your Primary Care Provider. Call [facility] ([phone]) or report to the closest Emergency Room. Call 911 if necessary. 02/20/23 1451 <Electronically signed by Jennifer Anderson DO> Cosigner Signature (if applicable): CC: ~ Signed [facility] Work Phone: 1(433) 833-281606-15-2023 Miscellaneous Notes* Telephone Encounter - Lisandra Michael RN - 01/25/2023 10:06 AM EDT Order pended Last VV 09/14/22 Next OV - to be scheduled Routing to provider for review * Telephone Encounter - Eunice Barrett - 01/25/2023 8:41 AM EDT Pharmacy verified in Epic Patient has been [...] advise. Eunice Gilliland Pss documented in this encounterLicking [facility]05-[facility]23 Discharge summary Author Kip Payne [facility] December 19, 2022 10:13am Note Date/Time December 19, 2022 10:12a m [facility] Physical [facility] [address] [place] [address]. [address] [place] [id number] / REHABILITATION SERVICES DISCHARGE SUMMARY MR#: [id number] Acct: [id number] Name: BRUNO PATTERSON Rep #: [id number] : 1970 52 From: Cert. DALJIT ReyezT, OCS Referring Dr.: Dr. Mercy Jin MD Status: REG RCR Insurance: [facility] MEDICAID BRUNO PATTERSON was seen in my office for initial evaluation on 07/12/22. The following Plan of Care was established for this patient: Initial Frequency: 2x /Week Initial Duration: 4 Weeks Patient/Client Instruction: Educate patient on: Condition, Plan of Care For the Purpose of:: To decrease pain, To increase ROM, To improve muscle performance and motor function, To improve ability to perform ADL's, To increasetolerance to activity/condition/position, To improve ability of physical actionsfor home/community/work/leisure, To improve gait and locomotor functions, To improve health of tissue, To decrease soft tissue restriction, To increase flexibility/ROM, To prevent re-injury Therapeutic Exercise to Include: Strength training, Endurance training, Balance training, Body mechanics, Postural training, Flexibilty training, In an aquaticsetting, Active ROM, Dynamic Lumbar Stabilization For the Purpose of:: To decrease pain, To increase ROM, To improve muscle performance and motor function, To improve ability to perform ADL's, To increasetolerance to activity/condition/position, To improve ability of physical actionsfor home/community/work/leisure, To improve health of tissue, To decrease soft tissue restriction, To increase flexibility/ROM, To prevent re-injury This patient was last seen in our office . Pertinent comments regarding their Physical therapy will appear below: Patient was seen for PT for back and neck pain focusing on Aquatic therapy At this point I will be discontinuing this patient from physical therapy. I would be happy to see this patient again in the future if found appropriate by the physician. Thank you! Kip Payne PT, Cert MDT, OCS Balance/Gait/Functional tests - Balance/Special Test Scores Oswestry Low Back Score: 9 <Electronically signed by Kip Payne PT, Cert. T, OCS> 12/19/22 1013 CC: Dr. Mercy Jin MD; LOGAN HADDAD ~ VALARIE Signed [facility] Work Phone: 1(111) 557-396204-12-2023 Miscellaneous Notes* Telephone Encounter - Patti Liz RN - 11/22/2022 12:41 PM EDT LiveTop message sent to patient with Arleen's message. Health maintenance and surgical history updated. Recall letter placed. Patti Liz RN * Telephone Encounter - Arleen Wheatley PA-C - 11/22/2022 11:21 AM EDT No concerning findings on colonoscopy. Recommend fiber supplement and plenty of fluids due to finding of diverticulosis (small pouches in lining of colon, common incidental finding). Repeat colonoscopy in 10 years if no new concerns before that time, please update HM/surg history/recall letter. No follow-up appt needed unless any questions or concerns * Telephone Encounter - Alla Deng - 11/22/2022 11:06 AM EDT Patient called in regards to a follow up for colonoscopy preferred by Dr. Roy in [place] on 11/10/2022. Patient stated they have been out of town and was not able to call sooner for an update. Patient asking if a follow up is needed. Please advise Thank you Alla Deng Sample Shoe Inspector And Reworker * Telephone Encounter - Alla Deng - 11/06/2022 1:54 PM EDT 11/10/2022 COLON MARIN documented in this encounterLicking [facility] Hospital03-31-2023 History and physical note * Umang Roy MD - 11/10/2022 1:45 PM EDT Images from the original note were not included. HISTORY AND PHYSICAL Bruno Patterson 1970 REFERRING PHYSICIAN: No ref. provider found CHIEF COMPLAINT: Consult (colonoscopy) HPI: The patient is a 52 year old female referred for endoscopy. Bruno notes the following GI complaints: Bruno denies abdominal pain.. Bruno notes diarrhea. Bruno denies constipation. Bruno denies achange in bowel habits. Bruno denies melena. Bruno denies bright red blood per rectum. Bruno denieshemorrhoids. The patient notes no history of upper [...] package (Patient not taking: Reported on 11/06/2022) triamterene-hydroCHLOROthiazide (MAXZIDE-25) 37.5-25 mg per tablet Take 1 [...] entered by the nurse and reviewed by ct Nursing Notes: Kelly Chaves LPN 11/06/2022 1:39 PM Signed REVIEW OF SYSTEMS: General: The patient NOTES fatigue, denies weight loss, denies weight gain, denies feeling hot, anddenies feelings of cold. Eyes: The patient denies [...] failure, other cardiac issues, denies claudication, denies coldfeet, denies peripheral arterial stent. Respiratory: The patient [...] nourished, well hydrated in no acute distress. Thepatient is oriented to time, place, and person. VITALS: Blood pressure 122/84, pulse 99, temperature 36.7 C (98 F), height 165.1 cm (5' 5), [id number] kg (238 lb 3.2 oz), last menstrual period 06/26/2018, SpO2 99 %. Body mass index is 39.64 kg/m . HEENT: Normal cephalic, ataumatic, pupils are equally round, sclera are anicteric, mucous membranesare moist, oropharynx is clear. Neck has no [...] follow-up with me 1 week post operatively. Umang Roy III, MD UPDATED HISTORY AND PHYSICAL EXAMINATION SERVICE DATE: 11/10/2022 SERVICE TIME: 12:39 PM PHYSICAL EXAM MUST BE COMPLETED ON ADMISSION The History and Physical (completed in the past 30 days) has been reviewed and the patient has beenexamined. The contents accurately reflect the patient's condition with the following additions or revisions since the H&P was completed. Examination indicates no changes. This H&P can be found in the attached. SIGNATURE: Umang Roy III, MD PATIENT NAME: Bruno Patterson DATE: November 10, 2022 TIME: 12:39 PM documented in this encounterLicking [facility] Hospital03-27-2023 History of Present illness Narrative* Umang Roy MD - 11/06/2022 1:46 PM EDT HISTORY AND PHYSICAL Bruno Vallejod 1970 REFERRING PHYSICIAN: No ref. provider found CHIEF COMPLAINT: Consult (colonoscopy) HPI: The patient is a 52 year old female referred for endoscopy. Bruno notes the following GI complaints: Bruno denies abdominal pain.. Bruno notes diarrhea. Bruno denies constipation. Bruno denies achange in bowel habits. Bruno denies melena. Bruno denies bright red blood per rectum. Bruno denieshemorrhoids. The patient notes no history of upper [...] package (Patient not taking: Reported on 11/06/2022) triamterene-hydroCHLOROthiazide (MAXZIDE-25) 37.5-25 mg per tablet Take 1 [...] entered by the nurse and reviewed by ct Nursing Notes: Kelly Chaves LPN 11/06/2022 1:39 PM Signed REVIEW OF SYSTEMS: General: The patient NOTES fatigue, denies weight loss, denies weight gain, denies feeling hot, anddenies feelings of cold. Eyes: The patient denies [...] failure, other cardiac issues, denies claudication, denies coldfeet, denies peripheral arterial stent. Respiratory: The patient [...] nourished, well hydrated in no acute distress. Thepatient is oriented to time, place, and person. VITALS: Blood pressure 122/84, pulse 99, temperature 36.7 C (98 F), height 165.1 cm (5' 5), [id number] kg (238 lb 3.2 oz), last menstrual period 06/26/2018, SpO2 99 %. Body mass index is 39.64 kg/m . HEENT: Normal cephalic, ataumatic, pupils are equally round, sclera are anicteric, mucous membranesare moist, oropharynx is clear. Neck has no [...] follow-up with me 1 week post operatively. Umang Roy III, MD documented in this encounterLicking [facility] Hospital03-27-2023 Nurse Note* Kelly Chaves LPN - 11/06/2022 1:35 PM EDT REVIEW OF SYSTEMS: General: The patient NOTES fatigue, denies weight loss, denies weight gain, denies feeling hot, anddenies feelings of cold. Eyes: The patient denies [...] failure, other cardiac issues, denies claudication, denies coldfeet, denies peripheral arterial stent. Respiratory: The patient [...] UNKNOWN Kelly Chaves LPN documented in this encounterLicking Memorial Hospital03-27-2023 Instructions* Patient Instructions* Umang Roy MD - 11/06/2022 1:33 PM EDT Images from the original note were not included. Bowel Preparation Instructions for: Golytely, Nulytely, Trilyte or Colyte (polyethylene glycol 3350and electrolytes) IF YOU DO NOT FOLLOW THESE [...] you do not have a responsible local owner operator truck driver (family member or friend) with you to take you home, your exam cannot be done with sedation and will be cancelled. Please bring a list of all of your current medications, including any Over-the Counter medications with you. Medications If you take insulin, diabetic medications or blood thinners such as Coumadin (warfarin), Plavix (clopidogrel), Ticlid (ticlopidine hydrochloride), Agrylin (anagrelide), Xarelto (Rivaroxaban), Pradaxa(Dabigatran), Eliquis (Apixaban), and Effient (Prasugrel). You MUST [...] at your local pharmacy or drugstore pharmacy. 1 07/2019 Bowel Preparation Instructions for: Golytely, Nulytely, Trilyte or Colyte (polyethylene glycol 3350and electrolytes) Three (3) Days Before Your Colonoscopy [...] your exam. 2 07/2019 documented in this encounterLicking [facility] Hospital03-24-2023 Miscellaneous Notes* Telephone Encounter - Rhina Tee MA - 11/03/2022 12:26 PM EDT Called patient to schedule colonoscopy, she has a new GI Doctor. Rhina Tee MA documented in this encounterLicking Memorial Hospital02-20-2023 Miscellaneous Notes* Addendum Note - Dilia Angulo MD - 10/02/2022 6:15 PM ESTAddended by: DILIA ANGULO on: 10/02/2022 06:15 PM Modules accepted: Level of Service documented in this encounterLicking Memorial Hospital02-02-2023 Instructions* Patient Instructions* Dilia Angulo MD - 09/14/2022 4:37 PM EST Increasing Lamictal 50 mg for the first week Then 100 mg every night documented in this encounterLicking [facility] Hospital02-02-2023 History of Present illness Narrative* Dilia Angulo MD - 09/14/2022 4:30 PM EST Follow up visit Interval history No orders found for this visit on 09/14/22. Headache and vertigo for which she is taking Lamictal 25 mg daily She also had flaring of meniere disease and took oral steroids History Bruno Patterson is a 51 year old female seen [...] day to affected ear as needed vertigo triamterene-hydroCHLOROthiazide (MAXZIDE-25) 37.5-25 mg per tablet Take 1 [...] care ,tests results and plan of care Dilia Angulo MD documented in this encounterLicking [facility] Hospital10-28-2022 Miscellaneous Notes* Telephone Encounter - Lu Mcelroy RN - 06/09/2022 9:01 AM EDT This refill request is already pended to provider in previous encounter. CHANTAL Decker, RN June 09, 2022 9:01 AM documented in this encounterLicking Memorial Hospital10-27-2022 Miscellaneous Notes* Telephone Encounter - Lu Mcelroy RN - 06/08/2022 11:21 AM EDT Provider: Dr. Angulo patient requesting refill via Mychart . Please E-Scribe Last OV: 04-06-[address] Angulo Future OV: 08-09-[address] Angulo Last prescribed: 05-08-22 Requested Prescriptions Pending Prescriptions Disp Refills lamoTRIgine (LAMICTAL) 25 mg tablet 30 tablet 3 Sig: Take 1 tablet by mouth once daily. Request sent to provider to review Lu Mcelroy RN * Telephone Encounter - Melody Reed - 06/08/2022 11:10 AM EDT Patient has been identified by name and date of : Yes Requested Prescriptions Pending Prescriptions Disp Refills lamoTRIgine (LAMICTAL) 25 mg tablet 30 tablet 0 Sig: Take 1 tablet by mouth once daily. RX INSTRUCTIONS: Patient aware RX will be sent to pharmacy. No need to notify patient. Melody Reed documented in this encounterLicking Memorial Hospital08-25-2022 History of Present illness Narrative* Dilia Angulo MD - 04/06/2022 9:30 AM EDT New office NOTE Headache Bruno Guerreropherd is a 51 year old female seen [...] day to affected ear as needed vertigo triamterene-hydroCHLOROthiazide (MAXZIDE-25) 37.5-25 mg per tablet Take 1 [...] the date of the service which included [id number] patient care, completing clinical documentation, obtaining and/or reviewing separately obtained history, performing a medically appropriate examination, counseling and educating the patient/family/caregiver, and ordering medications, tests, or procedures Dilia Angulo MD documented in this encounterLicking Memorial Hospital07-30-2022 Hospital Discharge instructions Additional Instructions Chest x-ray is negative shows no signs of pneumonia. This appears to be a viral respiratory infection. COVID test should be back in the next 4 hours. If that is positive you like me to call you in a prescription for Paxlovid just call [facility] emergency department at [phone], asked for Dr. Rice and I will call into pharmacy for you. Plenty of fluids and rest. Follow-up with your doctor if not improving. Stop smoking and vaping altogether.[facility] Work Phone: 1(841) 734-312506-28-2022 Instructions* Patient Instructions* Cirilo Gotti - 02/07/2022 12:14 PM EDT 1. Increase Topamax dosage for migraines. Hold until completing oral steroids. 2. Order for blood work placed 3. Establish with migraine neurologist. . documented in this encounterLicking Memorial Hospital06-28-2022 History of Present illness Narrative* Monica Mortensen MD - 02/07/2022 12:05 PM EDT Staff Physician Comments: I testify that I personally interviewed and examined the patient. I confirm the below exam findings, assessment and plan were my own and resident/DIVING FISHER/scribe was acting as SCRIBE. Monica Mortensen MD, FACS Section Head, Otology/Neurotology/Skull Base Surgery Right Of Way Buyer, Cochlear Implant Program Head and Neck [place] [facility] History of Present Illness Ms. BRUNO PATTERSON is a 51 year old female with [...] on File Prior to Visit Medication Sig triamterene-hydroCHLOROthiazide (MAXZIDE-25) 37.5-25 mg per tablet Take 1 [...] of right tympanic membrane (R26.89) Imbalance (Z79.899) technician terminal and repeater current use of diuretic New drop attack, [...] mg Dose-Pack dexAMETHasone 0.1 % ophthalmic solution triamterene-hydroCHLOROthiazide (MAXZIDE-25) 37.5-25 mg per tablet By signing [...] Level: 4 - Moderate documented in this encounterLicking Memorial Hospital07-01-2021 History of Present illness Narrative* This is a 51-year-old female who comes today for an annual exam. * She was last seen in February 2021. Her last Pap in 2019 was negative, high risk HPV negative. * She had a spinal cord stimulator placed October 2021. * Her cycles are irregular, consistent with the perimenopause. She is currently on her cycle that started on May 29 but the previous one was about 3 months ago. She was on Slynd but stopped due to breakthrough bleeding. * She has no clots or pain. No discharge, no change in bowel habits or dysuria. * We discussed occasional stress incontinence symptoms. * She has her colonoscopy planned for the near future. [facility] Work Phone: 1(406) 408-583206-01-2020 History of Present illness Narrative* This is a 50-year-old female who comes today for an annual exam. * Her last visit was in January 2020. Her Pap smear was negative, high-risk HPV negative. * She is not sexually active. * She has been using Slynd for contraception and cycle control. She found it was also helpful for herM ni re's disease but now has noticed some increased symptoms. * She did notice spotting all December and January. * She currently is wearing a boot on her right foot due to a fracture. [facility] Work Phone: 1(993) 523-719503-27-2018 History of Past illness Narrative* Problem Noted Date Resolved Date S/P total hip arthroplasty 11/06/201711/08 documented as of this encounter (statuses as of 04/03/2022) [facility] of Past illness Narrative* Problem Noted Date Resolved Date S/P total hip arthroplasty 11/06/201711/08 documented as of this encounter (statuses as of 05/14/2022) [facility] of Past illness Narrative* Problem Noted Date Resolved Date S/P total hip arthroplasty 11/06/201711/08 documented as of this encounter (statuses as of 06/11/2022) [address]27-2018 History of Past illness Narrative* Problem Noted Date Resolved Date S/P total hip arthroplasty 11/06/201711/08 documented as of this encounter (statuses as of 06/11/2022) [address]27-2018 History of Past illness Narrative* Problem Noted Date Resolved Date S/P total hip arthroplasty 11/06/201711/08 documented as of this encounter (statuses as of 10/03/2022) [address]27-2018 History of Past illness Narrative* Problem Noted Date Resolved Date S/P total hip arthroplasty 11/06/201711/08 documented as of this encounter (statuses as of 11/03/2022) [address]27-2018 History of Past illness Narrative* Problem Noted Date Resolved Date S/P total hip arthroplasty 11/06/201711/08 documented as of this encounter (statuses as of 11/06/2022) [address] History of Past illness Narrative* Problem Noted Date Resolved Date S/P total hip arthroplasty 11/06/201711/08 documented as of this encounter (statuses as of 11/11/2022) [address]27-2018 History of Past illness Narrative* Problem Noted Date Resolved Date S/P total hip arthroplasty 11/06/201711/08 documented as of this encounter (statuses as of 11/23/2022) [address] History of Past illness Narrative* Problem Noted Date Resolved Date S/P total hip arthroplasty 11/06/201711/08 documented as of this encounter (statuses as of 01/25/2023) [address] History of Past illness Narrative* Problem Noted Date Diagnosed Date Resolved Date S/P total hip arthroplasty 11/06/2017 0 11/08/2017 documented as of this encounter (statuses as of 03/28/2023) [address] History of Past illness Narrative* Problem Noted Date Diagnosed Date Resolved Date S/P total hip arthroplasty 11/06/2017 0 11/08/2017 documented as of this encounter (statuses as of 09/21/2023) [address] History of Past illness Narrative* Problem Noted Date Diagnosed Date Resolved Date S/P total hip arthroplasty 11/06/2017 0 11/08/2017 documented as of this encounter (statuses as of 11/16/2023) [facility] Narrative* Problem Noted Date Diagnosed Date Resolved Date S/P total hip arthroplasty 11/06/2017 0 11/08/2017 Pre-op examination 10/23/2017 4 Recurrent major depression i n partial remission 06/23/2015 11/19/2023 Myalgia and myositis, unspecified 12/08/2014 11/19/2023 Migraine without aura 12/08/20142023 Migraine with aura 12/08/2014 4 Medication overuse headache 12/08/2014 11/19/2023 Sinusitis 04/21/2013 11/19/2023 Otalgia of right ear 04/21/20132 024 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/27/2009 11/19/2023 Cervicalgia 07/19/2009 11/19/2023 documented as of this encounter (statuses as of 11/19/2023) [facility] of [facility] illness Narrative* Problem Noted Date Diagnosed Date Resolved Date S/P total hip arthroplasty 11/06/2017 0 11/08/2017 Pre-op examination 10/23/2017 4 Recurrent major depression i n partial remission 06/23/2015 11/19/2023 Myalgia and myositis, unspecified 12/08/2014 11/19/2023 Migraine without aura 12/08/20142023 Migraine with aura 12/08/2014 4 Medication overuse headache 12/08/2014 11/19/2023 Sinusitis 04/21/2013 11/19/2023 Otalgia of right ear 04/21/201308/2 024 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/27/2009 11/19/2023 Cervicalgia 07/19/2009 11/19/2023 documented as of this encounter (statuses as of 11/19/2023) [facility] of [facility] illness Narrative* Problem Noted Date Diagnosed Date Resolved Date S/P total hip arthroplasty 11/06/2017 0 11/08/2017 Pre-op examination 10/23/2017 4 Recurrent major depression i n partial remission 06/23/2015 11/19/2023 Myalgia and myositis, unspecified 12/08/2014 11/19/2023 Migraine without aura 12/08/20142023 Migraine with aura 12/08/2014 Medication overuse headache 12/08/2014 11/19/2023 Sinusitis 04/21/2013 11/19/2023 Otalgia of right ear 04/21/2013 024 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/27/2009 11/19/2023 Cervicalgia 07/19/2009 11/19/2023 documented as of this encounter (statuses as of 11/29/2023) [facility] Diagnosis Onset Date Resolution Status Lumbar spondylosis acute DDD (degenerative disc disease), lumbosacral chronic Hypokalemia acute [facility] Work Phone: Evaluation noteNo assessment information available [facility] Work Phone: evaluation note* Diagnosis Meniere's disease of right ear- Primary Meniere's disease, unspecified Vestibular migraine Perforation of right tympanic membrane Perforation of tympanic membrane, unspecified Imbalance Abnormality of gait technician terminal and repeater current use of diuretic [facility] Vestibular migraine- Primary Syncope and collapse [facility] Diagnosis Vestibular migraine- Primary [facility] Diagnosis Encounter for screening for malignant neoplasm of colon- Primary Special screening for malignant neoplasms, colon [facility] Diagnosis Encounter for screening colonoscopy- Primary Special screening for malignant neoplasms, colon Encounter for screening for malignant neoplasm of colon Special screening for malignant neoplasms, colon [facility] Diagnosis Onset Date Resolution Status Greater trochanteric bursitis of right hip noneactive Pes anserinus bursitis of right knee noneactive [facility] Work Phone: Evaluation note* Diagnosis Abdominal migraine, intractable- Primary Variants of migraine, not elsewhere classified, with intractable migraine, so stated, without mention of status migrainosus [facility] Diagnosis Onset Date Resolution Status Greater trochanteric bursitis of right hip noneactive Pes anserinus bursitis of right knee noneactive Lumbar spondylosis acute DDD (degenerative disc disease), lumbosacral chronic [facility] Work Phone: Evaluation note* Diagnosis Onset Date Resolution Status Acute maxillary sinusitis, unspecified acute Vertigo acute DDD (degenerative disc disease) acute Degenerative joint disease of right hip acute Obesity acute Lumbar spondylosis acute Spondylolisthesis at L5-S1 level acute DDD (degenerative disc disease) acute Scoliosis of lumbar spine ac seminole Spondylolisthesis at L5-S1 level acute Degenerative joint disease of right hip acute Scoliosis of lumbar spine ac seminole Spondylolisthesis at L5-S1 level acute [facility] Work Phone: Evaluation note* Diagnosis Onset Date Resolution Status DDD (degenerative disc disease) acute Degenerative joint disease of right hip acute Obesity acute Lumbar spondylosis acute Spondylolisthesis at L5-S1 level acute DDD (degenerative disc disease) acute Scoliosis of lumbar spine ac seminole Spondylolisthesis at L5-S1 level acute Degenerative joint disease of right hip acute Scoliosis of lumbar spine ac seminole Spondylolisthesis at L5-S1 level acute Scoliosis of lumbar spine ac seminole Spondylolisthesis at L5-S1 level acute Thoracic ascending aortic aneurysm acute Ileus acute Right upper quadrant abdomin al pain with positive Waller's Sign acute S/P lumbar spinal fusion acu te Allergic rhinitis acute Debility acute Depression acute Fecal impaction of colon acu te GERD (gastroesophageal reflux disease) acute Hyperlipidemia acute Hypokalemia acute Hypothyroidism acute Ileus acute Migraine headache acute Neuropathic pain acute Osteoarthritis acute Postoperative anemia acute S/P lumbar spinal fusion acu te Urinary retention acute Hypertension chronic M ni re's disease chronic [facility] Work Phone: Evaluation note* Diagnosis Onset Date Resolution Status DDD (degenerative disc disease) acute Degenerative joint disease of right hip acute Obesity acute Lumbar spondylosis acute Spondylolisthesis at L5-S1 level acute DDD (degenerative disc disease) acute Scoliosis of lumbar spine ac seminole Spondylolisthesis at L5-S1 level acute Degenerative joint disease of right hip acute Scoliosis of lumbar spine ac seminole Spondylolisthesis at L5-S1 level acute Scoliosis of lumbar spine ac seminole Spondylolisthesis at L5-S1 level acute Thoracic ascending aortic aneurysm acute S/P lumbar spinal fusion acu te Ileus resolved Right upper quadrant abdomin al pain with positive Waller's Sign resolved Allergic rhinitis acute Debility acute Depression acute Fecal impaction of colon acu te GERD (gastroesophageal reflux disease) acute Hyperlipidemia acute Hypokalemia acute Hypothyroidism acute Migraine headache acute Neuropathic pain acute Osteoarthritis acute Postoperative anemia acute S/P lumbar spinal fusion acu te Urinary retention acute Hypertension chronic M ni re's disease chronic Ileus resolved [facility] Work Phone: Evaluation note* Diagnosis Onset Date Resolution Status Degenerative joint disease of right hip acute Scoliosis of lumbar spine ac seminole Spondylolisthesis at L5-S1 level acute Scoliosis of lumbar spine ac seminole Spondylolisthesis at L5-S1 level acute Thoracic ascending aortic aneurysm acute S/P lumbar spinal fusion acu te Ileus resolved Right upper quadrant abdomin al pain with positive Waller's Sign resolved Allergic rhinitis acute Debility acute Depression acute GERD (gastroesophageal reflux disease) acute Hyperlipidemia acute Hypokalemia acute Hypothyroidism acute Migraine headache acute Neuropathic pain acute Osteoarthritis acute S/P lumbar spinal fusion acu te Hypertension chronic M ni re's disease chronic Fecal impaction of colon res olved Ileus resolved Postoperative anemia resolve d Urinary retention resolved S/P lumbar spinal fusion acu te [facility] Work Phone: Evaluation note* Diagnosis Preoperative examination- Primary Preoperative examination, unspecified Anemia, unspecified type Essential hypertension Unspecified essential hypertension Migraine without status migrainosus, not intractable, unspecified migraine type Chronic left-sided low back pain with left-sided sciatica Depression, major, recurrent, moderate (HCC) Major depressive disorder, recurrent episode, moderate Irritable bowel syndrome with both constipation and diarrhea Gastroesophageal reflux disease, unspecified whether esophagitis present Hyperlipidemia, unspecified hyperlipidemia type Acquired hypothyroidism Unspecified hypothyroidism Nicotine use disorder, F17.2 Tobacco use disorder Marijuana use Cannabis abuse, unspecified Pain disorder with psychological component Psychogenic pain, site unspecified Class 2 obesity with body mass index (BMI) of 37.0 to 37.9 in adult, unspecified obesity type, unspecified whether serious comorbidity present Primary osteoarthritis of right hip Primary localized osteoarthrosis, pelvic region and thigh [facility] Diagnosis Onset Date Resolution Status Scoliosis of lumbar spine ac seminole Spondylolisthesis at L5-S1 level acute Thoracic ascending aortic aneurysm acute S/P lumbar spinal fusion acu te Ileus resolved Right upper quadrant abdomin al pain with positive Waller's Sign resolved Allergic rhinitis acute Debility acute Depression acute GERD (gastroesophageal reflux disease) acute Hyperlipidemia acute Hypokalemia acute Hypothyroidism acute Migraine headache acute Neuropathic pain acute Osteoarthritis acute S/P lumbar spinal fusion acu te Hypertension chronic M ni re's disease chronic Fecal impaction of colon res olved Ileus resolved Postoperative anemia resolve d Urinary retention resolved S/P lumbar spinal fusion acu te Allergic rhinitis acute Debility acute Degenerative joint disease of right hip acute Depression acute Essential (primary) hypertension acute GERD (gastroesophageal reflux disease) acute Hyperlipidemia acute Hypokalemia acute Hypothyroidism acute Migraine headache acute Muscle spasm acute Nausea acute Neuropathic pain acute Osteoarthritis acute Status post total hip replacement, right acute Vitamin D deficiency acute M ni re's disease chronic [facility] Work Phone: Evaluation note* Diagnosis Preoperative examination- Primary Preoperative examination, unspecified Anemia, unspecified type Essential hypertension Unspecified essential hypertension Migraine without status migrainosus, not intractable, unspecified migraine type Chronic left-sided low back pain with left-sided sciatica Depression, major, recurrent, moderate (HCC) Major depressive disorder, recurrent episode, moderate Irritable bowel syndrome with both constipation and diarrhea Gastroesophageal reflux disease, unspecified whether esophagitis present Hyperlipidemia, unspecified hyperlipidemia type Acquired hypothyroidism Unspecified hypothyroidism Nicotine use disorder, F17.2 Tobacco use disorder Marijuana use Cannabis abuse, unspecified Pain disorder with psychological component Psychogenic pain, site unspecified Class 2 obesity with body mass index (BMI) of 37.0 to 37.9 in adult, unspecified obesity type, unspecified whether serious comorbidity present Chronic migraine without aura without status migrainosus, not intractable Chronic migraine without aura, without mention of intractable migraine without mention of status migrainosus Meniere's disease, unspecified laterality Menopausal and perimenopausal disorder Unspecified menopausal and postmenopausal disorder [facility] Diagnosis Onset Date Resolution Status Admit Date GERD (gastroesophageal reflu x disease) acute May 04, 2025 10:48am Hypertension chronic May 042024 10:48am [facility] Work Phone[facility]: Hospital Discharge instructions Additional Instructions Please follow-up with your pain doctor as we discussed. Only take the tramadol as needed. Continue aching anti-inflammatories as well as Tylenol in addition to the steroids prescribed. You been given information for one of our credentialing specialist as well if needed.[facility] Work Phone: Hospital Discharge instructions Additional Instructions Increase fluids at home Use ice 20 minutes on, 20 minutes off Do not use heat Follow-up with Dr. Lipscomb as needed, follow-up with your orthopedic surgeon as needed for right hip pain as well Continue all medications as prescribed.[facility] Work Phone: Hospital Discharge instructions Additional Instructions Discharge home alone 12/21/2023, [facility] In Your Home PT/OT/SN/OUTSOLE COMPRESSOR. [facility] Work Phone: Hospital Discharge instructionsAmbulatory Orders* Gastroenterology Location: None Selected [facility] Work Phone: Progress note Author Keyana Velazquez [facility] Note Date/Time May 04, 2025 12:47pm [facility] [address] [place] [place] [address] OFFICE VISIT Date of Service: 05/04/25 MR#: [id number] Acct: [id number] Name: BRUNO PATTERSON Jadyn Rep #: [id number] : 1970 Provider: EL Velazquez Age/Sex: 54/F Location: [facility] Status: Signed Intake Vital Signs 12/01/24 10:49 05/04/25 11:09 Height 5 ft 5 in 5 ft 5 in Weight: 217 lb 223 lb BMI 36.1 37.0 BP 116/82 H 140/90 H Blood Pressure Location Lt brachial Position Sitting Respiration 16 Pulse 88 Pulse Source Monitor Temp 98.4 F Temp Source Temporal Pulse Oximetry (%) 97 Oxygen Delivery Method room air Intake Visit Reasons: Med follow up Chief Complaint: MEDICATION FOLLOW UP Is patient in pain?: No Allergies shellfish derived Allergy (Severe, Verified 05/04/25 11:05) vomitting Penicillins Allergy (Verified 05/04/25 11:05) Hives duloxetine (From Cymbalta) Adverse Reaction (Intermediate, Verified 05/04/25 11:05) Other gluten Adverse Reaction (Intermediate, Verified 05/04/25 11:05) stomach discomfort Medications ?Medication ?Instructions ?Recorded ?Confirmed ?Type ondansetron HCl 4 mg tablet 4 mg PO Q8H PRN NAUSEA 01/0105/04/25 History cetirizine 10 mg tablet (Zyrtec) 10 mg PO DAILY allerg y symptoms 03/08/23 05/04/25 History multivitamin (Daily Multi-Vitamin 1 tab PO DAILY PER D R 08/20/23 05/04/25 History tablet) meclizine 25 mg tablet 12.5 mg PO TID PRN dizziness 12/08/23 05/04/25 History potassium chloride 20 mEq 20 meq PO TIDCM 30 days #90 tabs 12/18/23 05/04/25 Rx tablet,extended release(part/cryst) acetaminophen 500 mg tablet 1,000 mg PO Q8 PRN 5 05/04/25 History topiramate 100 mg tablet 100 mg PO BID #60 tabs 10/2905/04/25 Rx venlafaxine 75 mg capsule,extended 150 mg PO DAILY 05/04/25 History release 24 hr amiloride 5 mg tablet 5 mg PO DAILY MENERIES #30 t abs 03/12/25 05/04/25 Rx celecoxib 200 mg capsule (Celebrex) 200 mg PO QDAY #30 caps 03/12/25 05/04/25 Rx rosuvastatin 10 mg tablet 10 mg PO DAILY PER DR REAGAN # 90 tabs 03/12/25 05/04/25 Rx gabapentin 600 mg tablet 600 mg PO BID #60 TABLETS 05/04/25 Rx levothyroxine 88 mcg tablet 88 mcg PO DAILY@0600 #90 t abs 04/20/25 05/04/25 Rx triamterene 37.5 1 cap PO DAILY #90 caps 04/0605/04/25 Rx mg-hydrochlorothiazide 25 mg capsule fluticasone propionate 50 2 spray intranasal QDAY PRN 05/04/25 05/04/25 History mcg/actuation nasal allergy symptoms spray,suspension lamotrigine 100 mg tablet 100 mg PO BID PER DR 5 05/04/25 History pantoprazole 40 mg tablet,delayed 40 mg PO QDAY #90 ta bs 05/04/25 05/04/25 Rx release PFSH Medical History Vertigo Acute maxillary sinusitis, unspecified Loss of hearing Wears glasses Depression Anxiety Ambulates with cane Anemia Easy bruising Migraine headache Injury of head and neck Menieres disease Dietary restriction History of ulceration Gastric reflux Former smoker Leg cramps History of pain when walking History of edema Pneumonia Pain Hypokalemia Vitamin deficiency Vision problem Ulcer Osteoarthritis Neuropathy IBS (irritable bowel syndrome) Hearing problem Back problem Arthritis Seasonal allergies Surgical History (Updated 05/04/25 @ 11:08 by Brittani Gregg) Fusion of lumbar spine History of total right hip arthroplasty S/P insertion of spinal cord stimulator H/O total hip arthroplasty Family History Father Alcohol abuse Colon cancer, Onset Age: 69 Diabetes Respiratory disease Melanoma Dementia Sister Alcohol abuse Arthritis Asthma Son Anxiety Mother Arthritis Asthma Heart disease Hypertension Aunt Autoimmune disease lupus Brother Hypertension Heart disease Other Bowel disease Depression High cholesterol Mental disorder Psychiatric care Severe allergic reaction Thyroid disorder Social History adopted: No household members: none number of children: 1 current occupational status: disabled current occupation: Disabled current occupational exposures/hazards: No pets and animals: Yes history of recent travel: No sexually active: No Smoking Status: Current every day smoker tobacco type: e-cigarettes Electronic Cigarette Use: with nicotine alcohol intake: former year quit: 2015? substance use type: does not use caffeine: Yes eating out: 1-3 times/week during the past year weight has: remained stable frequency: 3-4 times per week duration: 15-30 minutes/day octavia/nondenominational: [employer] seatbelt use: always do you feel safe at home: Yes additional social history: HPI HPI Chief Complaint: MEDICATION FOLLOW UP Details: BRUNO GUERREROPHERD, is a 54 F who presents to the office today for follow-up for hypertension and GERD. Patient states no complications or adverse effects from blood pressure medicine. Blood pressure slightly elevated in office today states she does not routinely check her blood pressure at home. She does have acuff at home that she can use. Denies headaches nosebleeds. States she was having a hot flash when her blood pressure was checked. She also complains of GERD. States she has been on omeprazole for many years. She does have acid reflux almost daily still. She states if she eats late at night she tries to stay awake. States she wakes up nauseous and cannot eat until afternoon but also can eat too late at night as she will become nauseous and have severe acid reflux symptoms. To her knowledge she has not tried any other acid reflux medication. She states her last upper GI scope was many years ago. ROS Const Constitutional: No body ache, chills, excessive sweating, fatigue, fever(s), frequent falls, headache(s), snoring, weakness, sleep problems or change in appetite Eyes Eyes: No blurry vision, change in vision or Light sensitivity ENT ENT: No abnormal hearing, ear or mastoid pain, tinnitus, nasal congestion, nasaldischarge, headache(s), neck pain or sore throat Resp Respiratory: No cough, shortness of breath, snoring or wheezing Cardio Cardiology: No chest pain at rest, chest pain with exertion, excessive sweating,shortness of breath, dyspnea on exertion, lightheadedness, orthopnea or palpitations Gastro GI: No abdominal pain, change in bowel habits, constipation, cramping, diarrhea or nausea/dyspepsia Genitourinary-Female: No burning urination, painful urination, urinary incontinence or urinary frequency Musc Musculoskeletal: No abnormal gait, joint pain, back pain, limited range of motion, muscle weakness, neck pain or numbness Skin Skin: No dry skin, redness, lesions, itchy eyes, rash or wounds Neuro Neurology: No abnormal gait, abnormal hearing, weakness, frequent falls, headache(s), memory loss or numbness Psych Psychiatric: No anxiety, No change in appetite, No depression, No memory loss, No panic attacks and No Thoughts of harming yourself/Others Endo Endocrine: No cold intolerance, excessive sweating, fatigue, flushing, heat intolerance, increased thirst/drinking or increased hunger Aller/Imm Allergy/Immunologic: No itchy eyes, seasonal allergy symptoms, hives or wheezing Robert/Lymp Hematologic/Lymphatic: No easy bleeding or enlarged lymph nodes Exam Const General: cooperative, no acute distress, well groomed and well hydrated Nutritional Appearance: well nourished Orientation: alert and oriented x3 HENMT Head: normal to inspection Ears: hearing grossly normal bilaterally Nose: external nose normal and nares normal Face and sinus: normal facial exam Mouth: oral mucosae normal, lip normal and moist mucous membranes Eyes General: appearance normal, both eyes and all related structures Pupils: PERRL Neck Neck: normal visual inspection, no lymphadenopathy and trachea midline Thyroid: thyroid normal Carotids: normal carotid upstroke and no bruits Lymphatic: no lymphadenopathy noted Chest Chest palpation & inspection: normal inspection of the chest Resp Effort & Inspection: normal respiratory effort, able to speak in complete sentences and symmetric chest movement Auscultation: Bilateral: Clear to Auscultation Cardio Palpation: normal PMI Rate: regular rate Rhythm: regular rhythm Heart Sounds: S1 normal and S2 normal Pulses: radial pulses present GI Inspection: normal to inspection Auscultation: normal bowel sounds Palpation: soft and nontender Musc Musculoskeletal: No joint tenderness, joint redness or muscle weakness Skin General: no rashes or lesions noted Lesions: no lesions Rashes: no rashes Trauma: no lacerations or abrasions Wounds: no wounds Neuro General: patient alert, patient oriented x3 and deep tendon reflexes 2+ bilaterally Speech: speech normal Motor: muscle tone normal throughout Extrem General: normal to inspection and capillary refill normal Psych Appearance: grossly normal and well kempt Coding Level of Care Code Established Pt Off vis,est,level 3 Patient Type Established History Expanded Problem Focused Exam Expanded Problem Focused Medical Decision Making Moderate Complexity Diagnoses Gastroesophageal reflux disease without esophagitis K21.9 Esophagitis presence: without esophagitis Hypertension I10 Time Spent (min) 30 Assessment and Plan Assessment and Plan (1) GERD (gastroesophageal reflux disease): Status: Acute Qualifiers: Esophagitis presence: without esophagitis Qualified Code(s): K21.9 - Gastro-esophageal reflux disease without esophagitis Plan: Will switch omeprazole to pantoprazole to see if that has any increase in efficacy for the patient. Will also refer to GI at his she has had severe GERD symptoms and has not been evaluated with scope for many years. (2) Hypertension: Status: Chronic Plan: Blood pressure recheck was 120/88. Discussed with patient about routinely monitoring blood pressure to ensure good control of blood pressure and to keep track of blood pressure levels. Patient Orders: Referrals Gastroenterology K21.9 - Gastro-esophageal reflux disease without esophagitis Medications: New pantoprazole 40 mg PO QDAY 90 tabs 1RF fluticasone propionate 50 mcg/actuation administer into each nostril 2 sprays intranasal QDAY PRN Discontinued omeprazole Discontinued Reason: Order Changed 40 mg PO DAILY [address] Plan Details Follow Up: As needed 05/04/25 1300 <Electronically signed by Keyana GALLEGOS> Date _ Keyana GALLEGOS Cosigner Signature: Date (if applicable) CC: ~ [facility] Work Phone: [facility] for referral (narrative)* Outpatient Procedure (Routine) - Closed Specialty Diagnoses / Procedures Referred By America watson Referred To [facility] Diagnoses Vestibular migraine Syncope and collapse Procedures EPIL EEG ROUTINE ELECTROENCEPHALOGRAM REC COMA/SLEEP ONLY Dilia Angulo MD [address] [place] [address] [address] Referral ID Status Reason Start Date Expiration Date V isits Requested Visits Authorized [id number] Closed Auto-Generate d Referral 04/06/2022 04/06/2023 1 1 [facility] for referral (narrative)* Outpatient Procedure (Routine) - Authorized Specialty Diagnoses / Procedures Referred By America watson Referred To Contact Diagnoses Encounter for screening for malignant neoplasm of colon Procedures COLONOSCOPY DIAGNOSTIC COLONOSCOPY FLX DX W/COLLJ SPEC WHEN PFRMD Umang Roy MD [address] [facility] [place] [address] [facility] [address] [place] [address] Referral ID Status Reason Start Date Expiration Date Visits Requested Visits Authorized [id number] Authorized Auto-Generat ed Referral 11/06/2022 11/07/2023 1 1 [facility] for referral (narrative)* Outpatient Procedure (Routine) - Closed Specialty Diagnoses / Procedures Referred By Contshantell t Referred To Contact Diagnoses Encounter for screening for malignant neoplasm of colon Procedures COLONOSCOPY DIAGNOSTIC COLONOSCOPY FLX DX W/COLLJ SPEC WHEN Umang Isaac MD [address] [place] [address] [facility] [address] [place] [address] Referral ID Status Reason Start Date Expiration Date V isits Requested Visits Authorized [id number] Closed Auto-Generate d Referral 11/06/2022 11/07/2023 1 1 [facility] for referral (narrative)No reason for referral information [facility]: reason for visit Narrative* Outpatient Procedure (Routine) - Closed Specialty Diagnoses / Procedures Referred By America watson Referred To Contact Diagnoses Encounter for screening for malignant neoplasm of colon Procedures COLONOSCOPY DIAGNOSTIC COLONOSCOPY FLX DX W/COLLJ SPEC WHEN Umang Isaac MD [address] [place] [address] [facility] [address] [place] [address] Referral ID Status Reason Start Date Expiration Date V isits Requested Visits Authorized [id number] Closed Auto-Generate d Referral 11/06/2022 11/07/2023 1 1 [facility] Family History No Family History Records [...] of diabetes m ellitus: Father(V18.0, Z83.3) Status:Active Relationship Condition Age at Onset Recorded Date/[place] Not Specified Psychiatric care Unknown Disorder of intestine Unknown Severe allergic reaction Unknown Malignant neoplasm of colon Unknown Diabetes mellitus Unknown Alcohol abuse Unknown High blood cholesterol Unknown Anxiety Unknown Arthritis Unknown Autoimmune disease Unknown Depression Unknown Cardiac disease Unknown Mental disorder Unknown Hypertension Unknown Disorder of thyroid Unknown Unknown Family Member Name Dates Details Family [...] of diabetes m ellitus: Father(V18.0, Z83.3) Status:Active Relationship Condition Age at Onset Recorded Date/T y[place]o Not Specified Psychiatric care Unknown Disorder of intestine Unknown Severe allergic reaction Unknown High blood cholesterol Unknown Depression Unknown Mental disorder Unknown Disorder of thyroid Unknown father Alcohol abuse Unknown Malignant neoplasm of colon Unknown Diabetes mellitus Unknown Disorder of respiratory system Unknown Malignant melanoma Unknown Dementia Unknown sister Alcohol abuse Unknown Arthritis Unknown Asthma Unknown son Anxiety Unknown mother Arthritis Unknown Cardiac disease Unknown Hypertension Unknown aunt Autoimmune disease Unknown brother Hypertension Unknown Relationship Condition Age at Onset Recorded Date/[place] Not Specified Psychiatric care Unknown Disorder of intestine Unknown Severe allergic reaction Unknown High blood cholesterol Unknown Depression Unknown Mental disorder Unknown Disorder of thyroid Unknown father Alcohol abuse Unknown Malignant neoplasm of colon 69 Diabetes mellitus Unknown Disorder of respiratory system Unknown Malignant melanoma Unknown Dementia Unknown sister Alcohol abuse Unknown Arthritis Unknown Asthma Unknown son Anxiety Unknown mother Arthritis Unknown Cardiac disease Unknown Hypertension Unknown aunt Autoimmune disease Unknown brother Hypertension Unknown Chief Complaint yearly, no bedspread cutter hand. cbyearly, no bedspread cutter hand. cbyearly, no bedspread cutter hand. 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 Advance Directive(s) 11/06/2017 6:32 AM Advance Directive Response Recorded Date/ Time Living Will No March 11, 2022 9:53am Power of Boat Pilot No March 11 9:53am Advance Directive Response Recorded Date/ Time Living Will No February 20, 2023 1:29pm Power of Boat Pilot No February 20 1:29pm Advance Directive Response Recorded Date/ Time Living Will No March 05, 2023 9:07am Power of Boat Pilot No March 05 9:07am Advance Directive Response Recorded Date/ Time Living Will No March 05, 2023 8:07am Power of Boat Pilot No March 05 8:07am Advance Directive Response Recorded Date/ Time Living Will Yes August 20 8:22am Power of Boat Pilot Yes August 20 8:22am Advance Directive Response Recorded Date/ Time Name of Medical Power of Boat Pilot DEMARCO FERGUSON August 20, 2023 8:22am Name of Medical Power of Boat Pilot Chaitanya Pinzon r, son September 14, 2023 1:52pm Name of Medical Power of Boat Pilot Arturo Virre r September 16, 2023 3:22am Living Will Yes September 16 3:22am Power of Boat Pilot Yes September 16, 2023 3:22am Advance Directive Response Recorded Date/ Time Name of Medical Power of Boat Pilot DEMARCO FERGUSON August 20, 2023 8:22am Name of Medical Power of Boat Pilot Chaitanya Pinzon r, son September 14, 2023 1:52pm Name of Medical Power of Boat Pilot Arturo Virre r September 16, 2023 3:22am Living Will No September 25 6:45am Power of Boat Pilot No September 25, 2023 6:45am Advance Directive Response Recorded Date/ Time Name of Medical Power of Boat Pilot DEMARCO FERGUSON August 20, 2023 9:22am Name of Medical Power of Boat Pilot Chaitanya Pinzon r, son September 14, 2023 2:52pm Name of Medical Power of Boat Pilot Arturo Virre r September 16, 2023 4:22am Living Will No September 25 7:45am Power of Boat Pilot No September 25, 2023 7:45am Advance Directive Response Recorded Date/ Time Name of Medical Power of Boat Pilot DEMARCO FERGUSON August 20, 2023 9:22am Name of Medical Power of Boat Pilot Chaitanya Pinzon r, son September 14, 2023 2:52pm Name of Medical Power of Boat Pilot Arturo Virre r September 16, 2023 4:22am Living Will No November 14, 2023 12:11pm Power of Boat Pilot No November 13 12:11pm Advance Directive Response Recorded Date/ Time Name of Medical Power of Boat Pilot DEMARCO FERGUSON August 20, 2023 9:22am Name of Medical Power of Boat Pilot Chaitanya Pinzon r, son September 14, 2023 2:52pm Name of Medical Power of Boat Pilot Arturo Lutzre r September 16, 2023 4:22am Name of Medical Power of Boat Pilot Chaitanyapilar Pinzon r December 11, 2023 2:45pm Living Will Yes December 11, 2023 2:45pm Power of Boat Pilot Yes December 10 2:45pm Advance Directive Response Recorded Date/ Time Living Will Yes December 11, 2023 2:45pm Power of Boat Pilot Yes December 10 2:45pm Advance Directive Response Recorded Date/ Time Living Will Yes December 11, 2023 2:45pm Do you have a Healthcare Power of Boat Pilot? Yes December 11, 2023 2:45pm Chief Complaint and Reason for Visit Chief Complaint SWELLING TO LOWER LE GS BILAT M54.16 Lumbar spine xray DIVING FISHER-PATASSIUM ISSUES-NPP MAILED INS SPINAL CORD STIM PERMANENT Reason for Visit Lumbar spondylosis DDD (degenerative disc disease), lumbosacral Hypokalemia Chief Complaint INS SPINAL CORD STIM PERMANENT COUGH Chief Complaint COUGH Chief Complaint NECK AND BACK PAIN/R X HERE Chief Complaint RIGHT KNEE room 1 BURSITIS OF R HIP/KNEE RX HERE BACK PAIN Reason for Visit Greater trochanteric bursitis of right hip Pes anserinus bursitis of right knee Chief Complaint RIGHT KNEE room 1 BURSITIS OF R HIP/KNEE RX HERE BACK PAIN LUMBER SPINE Room 4 FAX RESULTS [phone] Reason for Visit Greater trochanteric bursitis of right hip Pes anserinus bursitis of right knee Lumbar spondylosis DDD (degenerative disc disease), lumbosacral Chief Complaint FAX RESULTS BILATERAL EAR CONCERNS/HEAD CONGESTION/VERTIGO RIGHT HIP Room 4 right leg LUMBAR SPINE Xray room 3 Spondylolisthesis, lumbar region LUMBAR SPINE Reason for Visit Acute maxillary sinu sitis, unspecified Vertigo DDD (degenerative disc disease) Degenerative joint disease of right hip Obesity Lumbar spondylosis Spondylolisthesis at L5-S1 level DDD (degenerative disc disease) Scoliosis of lumbar spine Spondylolisthesis at L5-S1 level Degenerative joint disease of right hip Scoliosis of lumbar spine Spondylolisthesis at L5-S1 level Chief Complaint BILATERAL EAR CONCER NS/HEAD CONGESTION/VERTIGO RIGHT HIP Room 4 right leg LUMBAR SPINE Xray room 3 Spondylolisthesis, lumbar region LUMBAR SPINE PREOP Reason for Visit Acute maxillary sinu sitis, unspecified Vertigo DDD (degenerative disc disease) Degenerative joint disease of right hip Obesity Lumbar spondylosis Spondylolisthesis at L5-S1 level DDD (degenerative disc disease) Scoliosis of lumbar spine Spondylolisthesis at L5-S1 level Degenerative joint disease of right hip Scoliosis of lumbar spine Spondylolisthesis at L5-S1 level Chief Complaint RIGHT HIP Room 4 right leg LUMBAR SPINE Xray room 3 Spondylolisthesis, lumbar region LUMBAR SPINE PREOP lumbar spine CONSULT-ASCENDING THORACIC ANEURYSM ERAS, 360 Lumbar Fusion L2-S1 ERAS, 360 Lumbar Fusion L2-S1 ERAS, 360 Lumbar Fusion L2-S1 ERAS, 360 Lumbar Fusion L2-S1 ERAS, 360 Lumbar Fusion L2-S1 ERAS, 360 Lumbar Fusion L2-S1 ERAS, 360 Lumbar Fusion L2-S1 ERAS, 360 Lumbar Fusion L2-S1 ERAS, 360 Lumbar Fusion L2-S1 ERAS, 360 Lumbar Fusion L2-S1 ERAS, 360 Lumbar Fusion L2-S1 ERAS, 360 Lumbar Fusion L2-S1 ERAS, 360 Lumbar Fusion L2-S1 ERAS, 360 Lumbar Fusion L2-S1 ERAS, 360 Lumbar Fusion L2-S1 ERAS, 360 Lumbar Fusion L2-S1 ERAS, 360 Lumbar Fusion L2-S1 ERAS, 360 Lumbar Fusion L2-S1 ERAS, 360 Lumbar Fusion L2-S1 ERAS, 360 Lumbar Fusion L2-S1 ERAS, 360 Lumbar Fusion L2-S1 ERAS, 360 Lumbar Fusion L2-S1 ERAS, 360 Lumbar Fusion L2-S1 ERAS, 360 Lumbar Fusion L2-S1 360 LUMBAR FUSION OF THE L2-S1 abdominal pain Reason for Visit DDD (degenerative di sc disease) Degenerative joint disease of right hip Obesity Lumbar spondylosis Spondylolisthesis at L5-S1 level DDD (degenerative disc disease) Scoliosis of lumbar spine Spondylolisthesis at L5-S1 level Degenerative joint disease of right hip Scoliosis of lumbar spine Spondylolisthesis at L5-S1 level Scoliosis of lumbar spine Spondylolisthesis at L5-S1 level Thoracic ascending aortic aneurysm Ileus Right upper quadrant abdominal pain with positive Waller's Sign S/P lumbar spinal fusion Allergic rhinitis Debility Depression Fecal impaction of colon GERD (gastroesophageal reflux disease) Hyperlipidemia Hypokalemia Hypothyroidism Ileus Migraine headache Neuropathic pain Osteoarthritis Postoperative anemia S/P lumbar spinal fusion Urinary retention Hypertension M ni re's disease Chief Complaint RIGHT HIP Room 4 right leg LUMBAR SPINE Xray room 3 Spondylolisthesis, lumbar region LUMBAR SPINE PREOP lumbar spine CONSULT-ASCENDING THORACIC ANEURYSM ERAS, 360 Lumbar Fusion L2-S1 ERAS, 360 Lumbar Fusion L2-S1 ERAS, 360 Lumbar Fusion L2-S1 ERAS, 360 Lumbar Fusion L2-S1 ERAS, 360 Lumbar Fusion L2-S1 ERAS, 360 Lumbar Fusion L2-S1 ERAS, 360 Lumbar Fusion L2-S1 ERAS, 360 Lumbar Fusion L2-S1 ERAS, 360 Lumbar Fusion L2-S1 ERAS, 360 Lumbar Fusion L2-S1 ERAS, 360 Lumbar Fusion L2-S1 ERAS, 360 Lumbar Fusion L2-S1 ERAS, 360 Lumbar Fusion L2-S1 ERAS, 360 Lumbar Fusion L2-S1 ERAS, 360 Lumbar Fusion L2-S1 ERAS, 360 Lumbar Fusion L2-S1 ERAS, 360 Lumbar Fusion L2-S1 ERAS, 360 Lumbar Fusion L2-S1 ERAS, 360 Lumbar Fusion L2-S1 ERAS, 360 Lumbar Fusion L2-S1 ERAS, 360 Lumbar Fusion L2-S1 ERAS, 360 Lumbar Fusion L2-S1 ERAS, 360 Lumbar Fusion L2-S1 ERAS, 360 Lumbar Fusion L2-S1 360 LUMBAR FUSION OF THE L2-S1 abdominal pain INTRACTABLE LOW BACK PAIN STROKE TEAM Reason for Visit DDD (degenerative di sc disease) Degenerative joint disease of right hip Obesity Lumbar spondylosis Spondylolisthesis at L5-S1 level DDD (degenerative disc disease) Scoliosis of lumbar spine Spondylolisthesis at L5-S1 level Degenerative joint disease of right hip Scoliosis of lumbar spine Spondylolisthesis at L5-S1 level Scoliosis of lumbar spine Spondylolisthesis at L5-S1 level Thoracic ascending aortic aneurysm S/P lumbar spinal fusion Ileus Right upper quadrant abdominal pain with positive Waller's Sign Allergic rhinitis Debility Depression Fecal impaction of colon GERD (gastroesophageal reflux disease) Hyperlipidemia Hypokalemia Hypothyroidism Migraine headache Neuropathic pain Osteoarthritis Postoperative anemia S/P lumbar spinal fusion Urinary retention Hypertension M ni re's disease Ileus Chief Complaint Spondylolisthesis, l umbar region LUMBAR SPINE PREOP lumbar spine CONSULT-ASCENDING THORACIC ANEURYSM ERAS, 360 Lumbar Fusion L2-S1 ERAS, 360 Lumbar Fusion L2-S1 ERAS, 360 Lumbar Fusion L2-S1 ERAS, 360 Lumbar Fusion L2-S1 ERAS, 360 Lumbar Fusion L2-S1 ERAS, 360 Lumbar Fusion L2-S1 ERAS, 360 Lumbar Fusion L2-S1 ERAS, 360 Lumbar Fusion L2-S1 ERAS, 360 Lumbar Fusion L2-S1 ERAS, 360 Lumbar Fusion L2-S1 ERAS, 360 Lumbar Fusion L2-S1 ERAS, 360 Lumbar Fusion L2-S1 ERAS, 360 Lumbar Fusion L2-S1 ERAS, 360 Lumbar Fusion L2-S1 ERAS, 360 Lumbar Fusion L2-S1 ERAS, 360 Lumbar Fusion L2-S1 ERAS, 360 Lumbar Fusion L2-S1 ERAS, 360 Lumbar Fusion L2-S1 ERAS, 360 Lumbar Fusion L2-S1 ERAS, 360 Lumbar Fusion L2-S1 ERAS, 360 Lumbar Fusion L2-S1 ERAS, 360 Lumbar Fusion L2-S1 ERAS, 360 Lumbar Fusion L2-S1 ERAS, 360 Lumbar Fusion L2-S1 360 LUMBAR FUSION OF THE L2-S1 abdominal pain INTRACTABLE LOW BACK PAIN STROKE TEAM LUMBAR SPINE Room 4 Reason for Visit Degenerative joint d isease of right hip Scoliosis of lumbar spine Spondylolisthesis at L5-S1 level Scoliosis of lumbar spine Spondylolisthesis at L5-S1 level Thoracic ascending aortic aneurysm S/P lumbar spinal fusion Ileus Right upper quadrant abdominal pain with positive Waller's Sign Allergic rhinitis Debility Depression GERD (gastroesophageal reflux disease) Hyperlipidemia Hypokalemia Hypothyroidism Migraine headache Neuropathic pain Osteoarthritis S/P lumbar spinal fusion Hypertension M ni re's disease Fecal impaction of colon Ileus Postoperative anemia Urinary retention S/P lumbar spinal fusion Chief Complaint Spondylolisthesis, l umbar region LUMBAR SPINE PREOP lumbar spine CONSULT-ASCENDING THORACIC ANEURYSM ERAS, 360 Lumbar Fusion L2-S1 ERAS, 360 Lumbar Fusion L2-S1 ERAS, 360 Lumbar Fusion L2-S1 ERAS, 360 Lumbar Fusion L2-S1 ERAS, 360 Lumbar Fusion L2-S1 ERAS, 360 Lumbar Fusion L2-S1 ERAS, 360 Lumbar Fusion L2-S1 ERAS, 360 Lumbar Fusion L2-S1 ERAS, 360 Lumbar Fusion L2-S1 ERAS, 360 Lumbar Fusion L2-S1 ERAS, 360 Lumbar Fusion L2-S1 ERAS, 360 Lumbar Fusion L2-S1 ERAS, 360 Lumbar Fusion L2-S1 ERAS, 360 Lumbar Fusion L2-S1 ERAS, 360 Lumbar Fusion L2-S1 ERAS, 360 Lumbar Fusion L2-S1 ERAS, 360 Lumbar Fusion L2-S1 ERAS, 360 Lumbar Fusion L2-S1 ERAS, 360 Lumbar Fusion L2-S1 ERAS, 360 Lumbar Fusion L2-S1 ERAS, 360 Lumbar Fusion L2-S1 ERAS, 360 Lumbar Fusion L2-S1 ERAS, 360 Lumbar Fusion L2-S1 ERAS, 360 Lumbar Fusion L2-S1 360 LUMBAR FUSION OF THE L2-S1 abdominal pain INTRACTABLE LOW BACK PAIN STROKE TEAM LUMBAR SPINE Room 4 BACK Reason for Visit Degenerative joint d isease of right hip Scoliosis of lumbar spine Spondylolisthesis at L5-S1 level Scoliosis of lumbar spine Spondylolisthesis at L5-S1 level Thoracic ascending aortic aneurysm S/P lumbar spinal fusion Ileus Right upper quadrant abdominal pain with positive Waller's Sign Allergic rhinitis Debility Depression GERD (gastroesophageal reflux disease) Hyperlipidemia Hypokalemia Hypothyroidism Migraine headache Neuropathic pain Osteoarthritis S/P lumbar spinal fusion Hypertension M ni re's disease Fecal impaction of colon Ileus Postoperative anemia Urinary retention S/P lumbar spinal fusion Chief Complaint lumbar spine CONSULT-ASCENDING THORACIC ANEURYSM ERAS, 360 Lumbar Fusion L2-S1 ERAS, 360 Lumbar Fusion L2-S1 ERAS, 360 Lumbar Fusion L2-S1 ERAS, 360 Lumbar Fusion L2-S1 ERAS, 360 Lumbar Fusion L2-S1 ERAS, 360 Lumbar Fusion L2-S1 ERAS, 360 Lumbar Fusion L2-S1 ERAS, 360 Lumbar Fusion L2-S1 ERAS, 360 Lumbar Fusion L2-S1 ERAS, 360 Lumbar Fusion L2-S1 ERAS, 360 Lumbar Fusion L2-S1 ERAS, 360 Lumbar Fusion L2-S1 ERAS, 360 Lumbar Fusion L2-S1 ERAS, 360 Lumbar Fusion L2-S1 ERAS, 360 Lumbar Fusion L2-S1 ERAS, 360 Lumbar Fusion L2-S1 ERAS, 360 Lumbar Fusion L2-S1 ERAS, 360 Lumbar Fusion L2-S1 ERAS, 360 Lumbar Fusion L2-S1 ERAS, 360 Lumbar Fusion L2-S1 ERAS, 360 Lumbar Fusion L2-S1 ERAS, 360 Lumbar Fusion L2-S1 ERAS, 360 Lumbar Fusion L2-S1 ERAS, 360 Lumbar Fusion L2-S1 360 LUMBAR FUSION OF THE L2-S1 abdominal pain INTRACTABLE LOW BACK PAIN STROKE TEAM LUMBAR SPINE Room 4 BACK Amb Documentation RIGHT HIP ARTHROPLASTY Reason for Visit Scoliosis of lumbar spine Spondylolisthesis at L5-S1 level Thoracic ascending aortic aneurysm S/P lumbar spinal fusion Ileus Right upper quadrant abdominal pain with positive Waller's Sign Allergic rhinitis Debility Depression GERD (gastroesophageal reflux disease) Hyperlipidemia Hypokalemia Hypothyroidism Migraine headache Neuropathic pain Osteoarthritis S/P lumbar spinal fusion Hypertension M ni re's disease Fecal impaction of colon Ileus Postoperative anemia Urinary retention S/P lumbar spinal fusion Allergic rhinitis Debility Degenerative joint disease of right hip Depression Essential (primary) hypertension GERD (gastroesophageal reflux disease) Hyperlipidemia Hypokalemia Hypothyroidism Migraine headache Muscle spasm Nausea Neuropathic pain Osteoarthritis Status post total hip replacement, right Vitamin D deficiency M ni re's disease Chief Complaint Admit Date 1 Y FU August 20, 2024 9: 53am I71.21 Aneurysm of the ascending aorta, without ru September 09, 2024 4:38pm ACUTE NEW PT - FOR MED REFILLS September 26, 2024 1:51pm INT LABS September 30, 2024 1:03pm Aneurysm of the ascending aorta, without rupture October 02, 2024 12:56pm LUMBAR SPINE October 10, 2024 1:33pm room 1 October 10, 2024 1:51pm SCREENING October 15, 2024 2:48 pm Reason for Visit Admit Date Thoracic ascending aortic aneurysm Janua ry 2024 9:53am Depression September 26, 2024 1:51pm Essential (primary) hypertension Februar y 2024 1:51pm GERD (gastroesophageal reflux disease) F ebruary 2024 1:51pm Hyperlipidemia September 26, 2024 1:51pm Hypothyroidism September 26, 2024 1:51pm Migraine headache September 26, 2024 1:51pm Osteoarthritis September 26, 2024 1:51pm Fusion of lumbar spine October 10 1:33pm Sacroiliitis October 10, 2024 1:33pm Chief Complaint Admit Date 1 Y FU August 20, 2024 9: 53am I71.21 Aneurysm of the ascending aorta, without ru September 09, 2024 4:38pm ACUTE NEW PT - FOR MED REFILLS September 26, 2024 1:51pm INT LABS September 30, 2024 1:03pm Aneurysm of the ascending aorta, without rupture October 02, 2024 12:56pm LUMBAR SPINE October 10, 2024 1:33pm room 1 October 10, 2024 1:51pm SCREENING October 15, 2024 2:48 pm EST NEW PT - HEART AND ORTHO PT October [id number] 1:02pm Hypersomnia, unspecified November 18, 2024 1:29pm Reason for Visit Admit Date Thoracic ascending aortic aneurysm Janua ry 2024 9:53am Depression September 26, 2024 1:51pm Essential (primary) hypertension uar y 2024 1:51pm GERD (gastroesophageal reflux disease) F ebruary 2024 1:51pm Hyperlipidemia September 26, 2024 1:51pm Hypothyroidism September 26, 2024 1:51pm Migraine headache September 26, 2024 1:51pm Osteoarthritis September 26, 2024 1:51pm Sacroiliitis October 10, 2024 1:33pm Fusion of lumbar spine October 10 1:33pm Essential (primary) hypertension October [id number] 1:02pm GERD (gastroesophageal reflux disease) M arch 2024 1:02pm Hypothyroidism October 29, 2024 1:0 2pm Migraine headache October 29, 2024 1:0 2pm Neuropathic pain October 29, 2024 1:0 2pm Osteoarthritis October 29, 2024 1:0 2pm Thoracic ascending aortic aneurysm October 29, 2024 1:02pm M ni re's disease October 29, 2024 1:0 2pm Immunization declined October 29, 2024 1 :02pm Mild anxiety October 29, 2024 1:0 2pm Establishing care with new doctordusty for October 29, 2024 1:02pm Electronic cigarette use October 29 1:02pm Cold feet October 29, 2024 1:0 2pm Suspected sleep apnea October 29, 2024 1 :02pm Moderately severe depression October 29, 2024 1:02pm Chief Complaint Admit Date 1 Y FU August 20, 2024 9: 53am I71.21 Aneurysm of the ascending aorta, without ru September 09, 2024 4:38pm ACUTE NEW PT - FOR MED REFILLS September 26, 2024 1:51pm INT LABS September 30, 2024 1:03pm Aneurysm of the ascending aorta, without rupture October 02, 2024 12:56pm LUMBAR SPINE October 10, 2024 1:33pm room 1 October 10, 2024 1:51pm SCREENING October 15, 2024 2:48 pm EST NEW PT - HEART AND ORTHO PT October [id number] 1:02pm Hypersomnia, unspecified November 18, 2024 1:29pm 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, 2024 10: 39am screening mammogram December 11, 2024 2:33pm Reason for Visit Admit Date Thoracic ascending aortic aneurysm Janua 2024 9:53am Depression September 26, 2024 1:51pm Essential (primary) hypertension y 2024 1:51pm GERD (gastroesophageal reflux disease) F ebruary 2024 1:51pm Hyperlipidemia September 26, 2024 1:51pm Hypothyroidism September 26, 2024 1:51pm Migraine headache September 26, 2024 1:51pm Osteoarthritis September 26, 2024 1:51pm Sacroiliitis October 10, 2024 1:33pm Fusion of lumbar spine October 10 1:33pm Essential (primary) hypertension October [id number] 1:02pm GERD (gastroesophageal reflux disease) M arch 2024 1:02pm Hypothyroidism October 29, 2024 1:0 2pm Migraine headache October 29, 2024 1:0 2pm Neuropathic pain October 29, 2024 1:0 2pm Osteoarthritis October 29, 2024 1:0 2pm Thoracic ascending aortic aneurysm October 29, 2024 1:02pm M ni re's disease October 29, 2024 1:0 2pm Immunization declined October 29, 2024 1 :02pm Mild anxiety October 29, 2024 1:0 2pm Establishing care with new doctordusty for October 29, 2024 1:02pm Electronic cigarette use October 29 1:02pm Cold feet October 29, 2024 1:0 2pm Suspected sleep apnea October 29, 2024 1 :02pm Moderately severe depression October 29, 2024 1:02pm Encounter for routine gynecological exam ination December 01, 2024 10:39am Chief Complaint Admit Date Hypersomnia, unspecified November 18, 2024 1:29pm 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, 2024 10: 39am screening mammogram December 11, 2024 2:33pm BACK PAIN/RX HERE March 05, 2025 12:0 0pm Reason for Visit Admit Date Encounter for routine gynecological exam ination December 01, 2024 10:39am Chief Complaint Admit Date BACK PAIN/RX HERE March 05, 2025 12:0 0pm Med follow up May 04, 2025 10:48am Reason for Visit Admit Date GERD (gastroesophageal reflux disease) S eptember 2024 10:48am Hypertension May 04, 2025 10:48am Reason for Referral Specialty Diagnoses / Procedures Referred By America watson Referred To Contact Neurology Diagnoses Meniere's disease of right ear Vestibular migraine Procedures CONSULT TO NEUROLOGY OFFICE/OUTPATIENT [facility] 60-74 MINUTES Monica Mortensen MD [address] [place] [address] Referral ID Status Reason Start Date Expiration Date Visits Requested Visits Authorized [id number] Authorized PCP Requested Referral 02/07/2022 02/07/2023 1 1 Medications Administered Section Inactive Administered Medications - up to 3 most recent administrations Medication Order MAR Action Action Date Dose Rate Site lactated ringers iv infusion 30 mL/hr, INTRAVENOUS, CONTINUOUS, Starting on Sun11/10/22 at 1200, Until Sun11/10/22 at 1307, Preprocedure Continued by Anesthesia 11/10/2022 12:38 PM EDT 30 mL/hr New Bag/Syringe/Bottle 11/10/2022 12:31 PM EDT 30 mL/hr 30 mL/hr Additional Source Comments INFORMATION SOURCE (unrecogn ized section and content) DATE CREATED AUTHOR 03/25/2021 [facility] DATE CREATED AUTHOR AUTHOR'S ORGANIZ ATION 09/22/2021 [facility] DATE CREATED AUTHOR AUTHOR'S ORGANIZ ATION 06/06/2022 [facility] DATE CREATED AUTHOR AUTHOR'S ORGANIZ ATION 10/15/2022 [facility] DATE CREATED AUTHOR AUTHOR'S ORGANIZ ATION 11/15/2022 [facility] DATE CREATED AUTHOR AUTHOR'S ORGANIZ ATION 12/12/2023 [facility] DATE CREATED AUTHOR AUTHOR'S ORGANIZ ATION 03/07/2024 [facility] ([place]) DATE CREATED AUTHOR AUTHOR'S ORGANIZ ATION 06/14/2025 [facility] DATE CREATED AUTHOR AUTHOR'S ORGANIZ ATION 06/24/2025 [facility] Goals (unrecognized section and content) Goals may be documented in a n alternate sectionGoals may be documented in an alternate sectionGoals may be documented in an alternate sectionGoals may be documented in an alternate sectionGoals may be documented in an alternate sectionGoals may be documented in an alternate sectionGoals may be documented in an alternate sectionGoals may be documented in an alternate sectionGoals may be documented in an alternate sectionGoals may be documented in an alternate sectionGoals may be documented in an alternate sectionGoals may be documented in an alternate sectionGoals may be documented in an alternate sectionGoals may be documented in an alternate section Source Comments (unrecognize d section and content) In the event this informatio n is protected by the Federal Confidentiality of Alcohol and Drug Abuse Patient Records regulations: The Federal rules restrict any use of the information to criminally investigate or prosecute any alcohol or drug abuse patient.[facility] the event this information is protected by the Federal Confidentiality of Alcohol and Drug Abuse Patient Records regulations: The Federal rules restrict any use of the information to criminally investigate or prosecute any alcohol or drug abuse patient.[facility] the event this information is protected by the Federal Confidentiality of Alcohol and Drug Abuse Patient Records regulations: The Federal rules restrict any use of the information to criminally investigate or prosecute any alcohol or drug abuse patient.[facility] the event this information is protected by the Federal Confidentiality of Alcohol and Drug Abuse Patient Records regulations: The Federal rules restrict any use of the information to criminally investigate or prosecute any alcohol or drug abuse patient.[facility] Hospital[facility] the event this information is protected by the Federal Confidentiality of Alcohol and Drug Abuse Patient Records regulations: The Federal rules restrict any use of the information to criminally investigate or prosecute any alcohol or drug abuse patient.[facility] the event this information is protected by the Federal Confidentiality of Alcohol and Drug Abuse Patient Records regulations: The Federal rules restrict any use of the information to criminally investigate or prosecute any alcohol or drug abuse patient.[facility] HospitalIn the event this information is protected by the Federal Confidentiality of Alcohol and Drug Abuse Patient Records regulations: The Federal rules restrict any use of the information to criminally investigate or prosecute any alcohol or drug abuse patient.[facility] HospitalIn the event this information is protected by the Federal Confidentiality of Alcohol and Drug Abuse Patient Records regulations: The Federal rules restrict any use of the information to criminally investigate or prosecute any alcohol or drug abuse patient.[facility] HospitalIn the event this information is protected by the Federal Confidentiality of Alcohol and Drug Abuse Patient Records regulations: The Federal rules restrict any use of the information to criminally investigate or prosecute any alcohol or drug abuse patient.[facility] HospitalIn the event this information is protected by the Federal Confidentiality of Alcohol and Drug Abuse Patient Records regulations: The Federal rules restrict any use of the information to criminally investigate or prosecute any alcohol or drug abuse patient.[facility] HospitalIn the event this information is protected by the Federal Confidentiality of Alcohol and Drug Abuse Patient Records regulations: The Federal rules restrict any use of the information to criminally investigate or prosecute any alcohol or drug abuse patient.[facility] HospitalIn the event this information is protected by the Federal Confidentiality of Alcohol and Drug Abuse Patient Records regulations: The Federal rules restrict any use of the information to criminally investigate or prosecute any alcohol or drug abuse patient.[facility] HospitalIn the event this information is protected by the Federal Confidentiality of Alcohol and Drug Abuse Patient Records regulations: The Federal rules restrict any use of the information to criminally investigate or prosecute any alcohol or drug abuse patient.[facility] HospitalIn the event this information is protected by the Federal Confidentiality of Alcohol and Drug Abuse Patient Records regulations: The Federal rules restrict any use of the information to criminally investigate or prosecute any alcohol or drug abuse patient.[facility] HospitalIn the event this information is protected by the Federal Confidentiality of Alcohol and Drug Abuse Patient Records regulations: The Federal rules restrict any use of the information to criminally investigate or prosecute any alcohol or drug abuse patient.[facility] HospitalIn the event this information is protected by the Federal Confidentiality of Alcohol and Drug Abuse Patient Records regulations: The Federal rules restrict any use of the information to criminally investigate or prosecute any alcohol or drug abuse patient.[facility] HospitalIn the event this information is protected by the Federal Confidentiality of Alcohol and Drug Abuse Patient Records regulations: The Federal rules restrict any use of the information to criminally investigate or prosecute any alcohol or drug abuse patient.[facility] HospitalIn the event this information is protected by the Federal Confidentiality of Alcohol and Drug Abuse Patient Records regulations: The Federal rules restrict any use of the information to criminally investigate or prosecute any alcohol or drug abuse patient.[facility] HospitalIn the event this information is protected by the Federal Confidentiality of Alcohol and Drug Abuse Patient Records regulations: The Federal rules restrict any use of the information to criminally investigate or prosecute any alcohol or drug abuse patient.[facility] HospitalIn the event this information is protected by the Federal Confidentiality of Alcohol and Drug Abuse Patient Records regulations: The Federal rules restrict any use of the information to criminally investigate or prosecute any alcohol or drug abuse patient.[facility] HospitalIn the event this information is protected by the Federal Confidentiality of Alcohol and Drug Abuse Patient Records regulations: The Federal rules restrict any use of the information to criminally investigate or prosecute any alcohol or drug abuse patient.[facility] HospitalIn the event this information is protected by the Federal Confidentiality of Alcohol and Drug Abuse Patient Records regulations: The Federal rules restrict any use of the information to criminally investigate or prosecute any alcohol or drug abuse patient.[facility] HospitalIn the event this information is protected by the Federal Confidentiality of Alcohol and Drug Abuse Patient Records regulations: The Federal rules restrict any use of the information to criminally investigate or prosecute any alcohol or drug abuse patient.[facility] Reason for Visit (unrecogniz ed section and content) Reason Comments Follow Up Reason Comments Consult Menieres disease of right ear, vestibular migraines Specialty Diagnoses / Procedures Referred By Contshantell t Referred To Contact Neurology Diagnoses Meniere's disease of right ear Vestibular migraine Procedures CONSULT TO NEUROLOGY OFFICE/OUTPATIENT [facility] 60-74 MINUTES Monica Mortensen MD [address] [place] [address] Referral ID Status Reason Start Date Expiration Date V isits Requested Visits Authorized [id number] Closed PCP Requested Referral 02/07/2022 02/07/2023 1 1 Reason Comments Refill Request Reason Onset Date Comments Refill Request 06/08/2022 Reason Comments Follow Up Reason Comments mv november recall Reason Comments Consult colonoscopy Reason Comments 11/10/2022 COLON MARIN Reason Onset Date Comments Refill Request 01/25/2023 Reason Comments Consult Reason Comments Release Of Medical Records Reason Onset Date Comments Refill Request 02/16/2025 Reason Comments Established Patient Care Teams (unrecognized sec tion and content) Team Status: Active Member Role Status Dates LOGAN HADDAD Family Provider Active Team Status: Inactive Member Role Status Dates Out of [facility] Doctor Primary Care Provider, Referring Pr akanksha Active Lupillo Walters PA, PA Attending Provider Active Team Status: Inactive Member Role Status Dates Out of [facility] Doctor Primary Care Provider, Referring Pr ovider Active Dr. Levon Reyes DO Attending Provider Active Team Status: Inactive Member Role Status Dates Out of [facility] Doctor Primary Care Provider Active Dr. Esequiel Mccullough MD Attending Provider Active Team Status: Inactive Member Role Status Dates Out of [facility] Doctor Primary Care Provider, Referring Pr ovider Active Dr. Bayron Negrete DO Attending Provider Active Team Status: Inactive Member Role Status Dates Out of [facility] Doctor Primary Care Provider, Referring Pr ovider Active Dr. Ed Lipscomb MD Attending Provider Active Team Status: Inactive Member Role Status Dates Out of [facility] Doctor Referring Provider Active Dr. Ed Lipscomb MD Attending Provider Active PEYTON FORD Primary Care Provider Active Team Status: Active Member Role Status Dates Dr. Esequiel Mccullough MD Attending Provider Active Dr. Ed Lipscomb MD Referring Provider Active Team Status: Inactive Member Role Status Dates PEYTON FORD Primary Care Provide r, Attending Provider, Referring Provider Active Team Status: Inactive Member Role Status Dates Dr. 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 [address] PCP - General 06/04/09 Sheet Metal Supervisor Relationship Specialty [place] [address] [facility] [place] [address] PCP - General 06/04/09 Team Status: Inactive Member Role Status Dates PEYTON FORD Primary Care Provider, Attending Provi taylor Active Team Status: Inactive Member Role Status Dates PEYTON FORD Primary Care Provider Active Dr. 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 [address] PCP - General 06/04/09 Team Status: Inactive Member Role Status Dates PEYTON FORD Primary Care Provider Active Dr. Mercy Jin MD Attending Provider, Referring Pr ovider Active Team Status: Active Member Role Status Dates LOGAN HADDAD Family Provider Active Out of [facility] Doctor Primary Care Provider Active Team Status: Inactive Member Role Status Dates Dr. Levon Reyes DO Attending Provider Active Team Status: Inactive Member Role Status Dates Dr. Esequiel Mccullough MD Attending Provider Active Team Status: Active Member Role Status Dates Dr. Levon Reyes DO Attending Provider, Referring Provider Active Team Status: Inactive Member Role Status Dates Out of Town Doctor Primary Care Provider Active Dr. 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 Jennifer Anderson DO Attending Provider, Noris porter Active Team Status: Inactive Member Role Status Dates Dr. Ed Lipscomb MD Attending Provider Active Team Status: Inactive Member Role Status Dates ALEXANDRA Leonard Attending Provider Active Team Status: Active Member Role Status Dates Dr. Ed Lipscomb MD Admit Provider, At tending Provider, Referring Provider, Other Provider Active LOGAN [place] Primary Care Provider Active Team Status: Active Member Role Status Dates Dr. Ed Lipscomb MD Admit Provider, Re ferring Provider, Other Provider Active LOGAN [place] Primary Care Provider Active Dr. Patrick Alfred DO Attending Provider, Other Provider Active Team Status: Active Member Role Status Dates Dr. Ed Lipscomb MD Admit Provider, At tending Provider, Referring Provider, Other Provider Active LOGAN PEYTON Primary Care Provider Active Dr. Patrick Alfred , Other Provider Active Dr. Osmar Raya MD Other Provider Active Team Status: Active Member Role Status Dates Dr. Ed Lipscomb MD Admit Provider, Other Provider A ctbenny FORD PEYTON Primary Care Provider Active Dr. Patrick Alfred , Other Provider Active Dr. Osmar Raya MD Attending Provider, Other Provid er Active Team Status: Active Member Role Status Dates Dr. Ed Lipscomb MD Admit Provider, At tending Provider, Referring Provider, Other Provider Active LOGAN PEYTON Primary Care Provider Active Dr. Patrick Alfred , Other Provider Active Dr. Osmar Raya MD Other Provider Active Dr. Jerzy Elliott MD Other Provider Active Team Status: Active Member Role Status Dates Dr. Ed Lipscomb MD Admit Provider, Other Provider A ctive LOGAN [place] Primary Care Provider Active Dr. Patrick Alfred , Other Provider Active Dr. Osmar Raya MD Attending Provider, Other Provid er Active Dr. Jerzy Elliott MD Other Provider Active Team Status: Active Member Role Status Dates Dr. Ed Lipscomb MD Admit Provider, Re ferring Provider, Other Provider Active PEYTON FORD Primary Care Provider Active Dr. Patrick Alfred , DO Other Provider Active Dr. Osmar Raya MD Other Provider Active Dr. Jerzy Elliott MD Other Provider Active Dr. Logan Cesar MD Attending Provider, Other Provi taylor Active Team Status: Active Member Role Status Dates Dr. Ed Lipscomb MD Admit Provider, Other Provider A ctive PEYTON FORD Primary Care Provider Active Dr. Patrick Alfred , DO Other Provider Active Dr. Osmar Raya MD Attending Provider, Other Provid er Active Dr. Jerzy Elliott MD Other Provider Active Dr. Logan Cesar MD Other Provider Active Team Status: Active Member Role Status Dates Dr. Ed Lipscomb MD Admit Provider, At tending Provider, Referring Provider, Other Provider Active PEYTON FORD Primary Care Provider Active Dr. Patrick Alfred , Other Provider Active Dr. Osmar Raya MD Other Provider Active Dr. Jerzy Elliott MD Other Provider Active Dr. Logan Cesar MD Other Provider Active Team Status: Active Member Role Status Dates Dr. Ed Lipscomb MD Admit Provider, Re ferring Provider, Other Provider Active PEYTON FORD Primary Care Provider Active Dr. Patrick Alfred , Other Provider Active Dr. Osmar Raya MD Other Provider Active Dr. Jerzy Elliott MD Other Provider Active Dr. Logan Cesar MD Other Provider Active Dr. Vipul Noel MD Attending Provider Active Team Status: Active Member Role Status Dates Dr. Ed Lipscomb MD Admit Provider, Re ferring Provider, Other Provider Active PEYTON FORD Primary Care Provider Active Dr. Patrick Alfred , Other Provider Active Dr. Osmar Raya MD Other Provider Active Dr. Jerzy Elliott MD Other Provider Active Dr. Logan Cesar MD Other Provider Active Dr. Nadege Jiménez MD Attending Provider Active Team Status: Active Member Role Status Dates Dr. Ed Lipscomb MD Admit Provider, Re ferring Provider, Other Provider Active PEYTON FORD Primary Care Provider Active Dr. Patrick Alfred , DO Other Provider Active Dr. Jerzy Elliott MD Other Provider Active Dr. Logan Ceasr MD Other Provider Active Dr. Eugene Orr , Attending Provider, Other Provid er Active Dr. Osmar Raya MD Other Provider Active Team Status: Active Member Role Status Dates Dr. Ed Lipscomb MD Admit Provider, Re ferring Provider, Other Provider Active PEYTON FORD Primary Care Provider Active Dr. Patrick Alfred , DO Other Provider Active Dr. Jerzy Elliott MD Other Provider Active Dr. Logan Cesar MD Attending Provider, Other Provi taylor Active Dr. Eugene Orr , DO Other Provider Active Dr. Osmar Raya MD Other Provider Active Team Status: Active Member Role Status Dates Dr. Ed Lipscomb MD Admit Provider, At tending Provider, Referring Provider, Other Provider Active PEYTON FORD Primary Care Provider Active Dr. Patrick Alfred , DO Other Provider Active Dr. Jerzy Elliott MD Other Provider Active Dr. Logan Cesar MD Other Provider Active Dr. Eugene Orr , DO Other Provider Active Dr. Osmar Raya MD Other Provider Active Team Status: Inactive Member Role Status Dates Dr. Ed Lipscomb MD Admit Provider, Re ferring Provider, Other Provider Active PEYTON FORD Primary Care Provider Active Dr. Patrick Alfred , DO Other Provider Active Dr. Jerzy Elliott MD Other Provider Active Dr. Logan Cesar MD Other Provider Active Dr. Eugene Orr , DO Attending Provider Active Dr. Osmar Raya MD Other Provider Active Team Status: Active Member Role Status Dates PEYTON FORD Primary Care Provider Active Dr. Ky Henderson MD Admit Provider, Attending Provid er Active Team Status: Inactive Member Role Status Dates PEYTON FORD Primary Care Provider Active Dr. 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 Ed Lipscomb MD Admit Provider, Re ferring Provider, Other Provider Active PEYTON FORD Primary Care Provider Active Dr. Patrick Alfred , DO Other Provider Active Dr. Osmar Raya MD Attending Provider, Other Provid er Active Dr. Jerzy Elliott MD Other Provider Active Dr. Logan Cesar MD Other Provider Active Dr. Nadege Jiménez MD Active Team Status: Active Member Role Status Dates Dr. Ed Lipscomb MD Admit Provider, Other Provider A ctive PEYTON FORD Primary Care Provider Active Dr. Patrick Alfred , Other Provider Active Dr. Jerzy Elliott MD Other Provider Active Dr. Logan Cesar MD Other Provider Active Dr. Eugene Orr , Attending Provider, Other Provid er Active Dr. Osmar Raya MD Other Provider Active Team Status: Inactive Member Role Status Dates PEYTON FORD Primary Care Provider Active Dr. Iván Stewart DO Attending Provider, Emergency Provider Active Team Status: Active Member Role Status Dates Dr. Ky Henderson MD Attending Provider, Referring Pr ovider Active No Primary Care Physician Primary Care Provider Active Team Status: Inactive Member Role Status Dates No Primary Care Physician Primary Care Provider Active Dr. Rafael Wood MD Emergency Provider Active Team Status: Inactive Member Role Status Dates PEYTON FORD Primary Care Provider Active Dr. Ky Henderson MD Admit Provider, Attending Provid er Active Team Status: Inactive Member Role Status Dates Dr. Ky Henderson MD Attending Provider, Referring Pr ovider Active No Primary Care Physician Primary Care Provider Active Team Status: Inactive Member Role Status Dates Dr. Ed Lipscomb MD Attending Provider Active No Primary Care Physician Primary Care Provider, Refer ring Provider Active Team Status: Inactive Member Role Status Dates No Primary Care Physician Primary Care Provider Active Dr. Esequiel Mccullough MD Attending Provider Active Team Status: Inactive Member Role Status Dates No Primary Care Physician Primary Care Provider Active Dr. Rafael Wood MD Attending Provider, Emergency Provider Active Team Status: Inactive Member Role Status Dates No Primary Care Physician Primary Care Provider Active Dr. Mercy Jin MD Attending Provider, Referring Pr ovider Active Team Status: Inactive Member Role Status Dates Dr. Luther Bonilla DO Emergency Provider Active No Primary Care Physician Primary Care Provider Active Sheet Metal Supervisor Relationship Specialty [place] [address] [facility] [address] PCP - General 06/04/09 Sheet Metal Supervisor Relationship Specialty [place] [address] [place] [address] PCP - General 06/04/09 Sheet Metal Supervisor Relationship Specialty [place] [address] [place] [address] PCP - General 06/04/09 Sheet Metal Supervisor Relationship Specialty [place] [address] [place] [address] PCP - General 06/04/09 Team Status: Active Member Role Status Dates No Primary Care Physician Primary Care Provider Active Dr. Ed iLpscomb MD Attending Provider Active Team Status: Inactive Member Role Status Dates Dr. Luther Bonilla DO Attending Provider, Emergency Pro vider Active No Primary Care Physician Primary Care Provider Active Team Status: Inactive Member Role Status Dates No Primary Care Physician Primary Care Provider Active Dr. Ky Henderson MD Admit Provider, Attending Provid er Active Sheet Metal Supervisor Relationship Specialty [place] [address] [place] [address] PCP - General 06/04/09 Sheet Metal Supervisor Relationship Specialty [place] [address] [place] [address] PCP - General 06/04/09 Sheet Metal Supervisor Relationship Specialty [place] [address] [place] [address] PCP - General 06/04/09 Team Status: Active Member Role Status Dates Dr. Wandy Valdovinos MD Primary Care Provider Active Team Status: Inactive Member Role Status Dates ALEXANDRA Leonard Attending Provider Active Star t: August 20, 2024 End: August 20, 2024 Team Status: Inactive Member Role Status Dates ALEXANDRA Leonard Attending Provider Active Star t: September 09, 2024 End: September 09, 2024 ALEXANDRA Leonard Referring Provider Active Star t: September 09, 2024 End: September 09, 2024 Dr. Wandy Valdovinos MD Primary Care Provider Active Start: September 09, 2024 End: September 09, 2024 Team Status: Inactive Member Role Status Dates Dr. Wandy Valdovinos MD Primary Care Provider Active Start: September 26, 2024 End: September 26, 2024 Dr. Wandy Valdovinos MD Referring Provider Active Start: September 26, 2024 End: September 26, 2024 ALEXANDRA Bermudez Attending Provider Active St art: September 26, 2024 End: September 26, 2024 Team Status: Inactive Member Role Status Dates Dr. Wandy Valdovinos MD Primary Care Provider Active Start: September 30, 2024 End: September 30, 2024 ALEXANDRA Bermudez Attending Provider Active St art: September 30, 2024 End: September 30, 2024 ALEXANDRA Bermudez Referring Provider Active St art: September 30, 2024 End: September 30, 2024 Team Status: Inactive Member Role Status Dates Dr. Wandy Valdovinos MD Primary Care Provider Active Start: October 02, 2024 End: October 02, 2024 ALEXANDRA Leonard Attending Provider Active Star t: October 02, 2024 End: October 02, 2024 ALEXANDRA Leonard Referring Provider Active Star t: October 02, 2024 End: October 02, 2024 Team Status: Active Member Role Status Dates Dr. Wandy Valdovinos MD Primary Care Provider Active Start: October 02, 2024 Dr. Mario Noel MD Attending Provider Active Start: October 02, 2024 Team Status: Inactive Member Role Status Dates Dr. Wandy Valdovinos MD Primary Care Provider Active Start: October 10, 2024 End: October 10, 2024 Dr. Wandy Valdovinos MD Referring Provider Active Start: October 10, 2024 End: October 10, 2024 Dr. Ed Lipscomb MD Attending Provider Active Start: October 10, 2024 End: October 10, 2024 Team Status: Inactive Member Role Status Dates Dr. Wandy Valdovinos MD Primary Care Provider Active Start: October 10, 2024 End: October 10, 2024 Dr. Esequiel Mccullough MD Attending Provider Active S tart: October 10, 2024 End: October 10, 2024 Team Status: Inactive Member Role Status Dates Dr. Wandy Valdovinos MD Primary Care Provider Active Start: October 15, 2024 End: October 15, 2024 ANIYAH KHALIL Attending Provider Active Start: [facility] 2024 End: October 15, 2024 ANIYAH KHALIL Referring Provider Active Start: [facility] 2024 End: October 15, 2024 Sheet Metal Supervisor Relationship Specialty [place] [address] [place] [address] PCP - General 06/04/09 Team Status: Inactive Member Role Status Dates Dr. Wandy Valdovinos MD Attending Provider Active Start: October 29, 2024 End: October 29, 2024 Team Status: Inactive Member Role Status Dates Dr. Wandy Valdovinos MD Primary Care Provider Active Start: November 18, 2024 End: November 18, 2024 Dr. Wandy Valdovinos MD Attending Provider Active Start: November 18, 2024 End: November 18, 2024 Dr. Wandy Valdovinos MD Referring Provider Active Start: November 18, 2024 End: November 18, 2024 Team Status: Inactive Member Role Status Dates Dr. Michelle Estrada MD Attending Provider Active Start: December 01, 2024 End: December 01, 2024 Dr. Wandy Valdovinos MD Primary Care Provider Active Start: December 01, 2024 End: December 01, 2024 Dr. Wandy Valdovinos MD Referring Provider Active Start: December 01, 2024 End: December 01, 2024 Team Status: Inactive Member Role Status Dates Dr. Wandy Valdovinos MD Primary Care Provider Active Start: December 01, 2024 End: December 01, 2024 Dr. Michelle Estrada MD Attending Provider Active Start: December 01, 2024 End: December 01, 2024 Dr. Michelle Estrada MD Referring Provider Active Start: December 01, 2024 End: December 01, 2024 Team Status: Inactive Member Role Status Dates Dr. Wandy Valdovinos MD Primary Care Provider Active Start: December 11, 2024 End: December 11, 2024 Dr. Michelle Estrada MD Attending Provider Active Start: December 11, 2024 End: December 11, 2024 Dr. Michelle Estrada MD Referring Provider Active Start: December 11, 2024 End: December 11, 2024 Sheet Metal Supervisor Relationship Specialty [place] [id number] [address] [facility] [place] [address] PCP - General 06/04/09 Team Status: Active Member Role/Relationship Status Dates Dr. Wandy Valdovinos MD Primary Care Provider Active Team Status: Inactive Member Role/Relationship Status Dates Dr. Wandy Valdovinos MD Primary Care Provider Active Start: November 18, 2024 End: November 18, 2024 Dr. Wandy Valdovinos MD Attending Provider Active Start: November 18, 2024 End: November 18, 2024 Dr. Wandy Valdovinos MD Referring Provider Active Start: November 18, 2024 End: November 18, 2024 Team Status: Inactive Member Role/Relationship Status Dates Dr. Michelle Estrada MD Attending Provider Active Start: December 01, 2024 End: December 01, 2024 Dr. Wandy Valdovinos MD Primary Care Provider Active Start: December 01, 2024 End: December 01, 2024 Dr. Wandy Valdovinos MD Referring Provider Active Start: December 01, 2024 End: December 01, 2024 Team Status: Inactive Member Role/Relationship Status Dates Dr. Wandy Valdovinos MD Primary Care Provider Active Start: December 01, 2024 End: December 01, 2024 Dr. Michelle Estrada MD Attending Provider Active Start: December 01, 2024 End: December 01, 2024 Dr. Michelle Estrada MD Referring Provider Active Start: December 01, 2024 End: December 01, 2024 Team Status: Inactive Member Role/Relationship Status Dates Dr. Wandy Valdovinos MD Primary Care Provider Active Start: December 11, 2024 End: December 11, 2024 Dr. Michelle Estrada MD Attending Provider Active Start: December 11, 2024 End: December 11, 2024 Dr. Michelle Estrada MD Referring Provider Active Start: December 11, 2024 End: December 11, 2024 Team Status: Inactive Member Role/Relationship Status Dates Dr. Wandy Valdovinos MD Primary Care Provider Active Start: March 05, 2025 End: March 05, 2025 Dr. Mercy Jin MD Attending Provider Active Start: March 05, 2025 End: March 05, 2025 Dr. Mercy Jin MD Referring Provider Active Start: March 05, 2025 End: March 05, 2025 Sheet Metal Supervisor Relationship Specialty [place] [address] [place] [address] PCP - General 06/04/09 Team Status: Active Member Role/Relationship Status Dates Dr. Wandy Valdovinos MD Primary care physician Active Team Status: Inactive Member Role/Relationship Status Dates Dr. Wandy Valdovinos MD Primary care physician Active Start: March 05, 2025 End: March 05, 2025 Dr. Mercy Jin MD Attending physician Active Start: March 05, 2025 End: March 05, 2025 Dr. Mercy Jin MD Referring Provider Active Start: March 05, 2025 End: March 05, 2025 Team Status: Inactive Member Role/Relationship Status Dates Dr. Wandy Valdovinos MD Primary care physician Active Start: May 04, 2025 End: May 04, 2025 Dr. Wandy Valdovinos MD Referring Provider Active Start: May 04, 2025 End: May 04, 2025 EL Yang Attending physician Active Start: May 04, 2025 End: May 04, 2025 FOR RECORDS PERTAINING TO PATIENTS WHO ARE [...] BE BASED ON THE PRIMARY CLINICAL RECORDS. [facility]. provides no warranty or guarantee of the accuracy or completeness of information in this document.
[2025-07-07] MEDS: Lactated Ringers 1,000 ML 15 ML IV (06:30)
--- NOTE | 2025-07-07 06:42 | PCM.HP.STD ---
[facility] - General General Date of Admission: 07/07/25 Date of Service: 07/07/25 HPI Narrative KAYLEE PATTERSON, is a 54 F who presents Chief Complaint: Heartburn Patient referred from primary care provider due to worsening of heartburn over the past few months. Patient has had heartburn for many years and has taken omeprazole as well for a long time. She is having heartburn almost daily after eating and at night. Foods that exacerbate her symptoms are citrus, spicy foods and sodium. Her primary care provider trialed pantoprazole however this gave her diarrhea so she went back to the omeprazole. She has a history of IBS and alternates between constipation and diarrhea. She is going to start taking a fiber supplement. Last colonoscopy was within 10 years ago and was with no abnormalities. She has never had an EGD before. [facility] Medical History Thyroid disease History of echocardiogram Vertigo Acute maxillary sinusitis, unspecified Loss of hearing Wears glasses Depression Anxiety Anemia Easy bruising Migraine headache Injury of head and neck Menieres disease Dietary restriction History of ulceration Gastric reflux Former smoker Leg cramps History of pain when walking History of edema Pneumonia Pain Hypokalemia Vitamin deficiency Vision problem Ulcer Osteoarthritis Neuropathy IBS (irritable bowel syndrome) Hearing problem Back problem Arthritis Seasonal allergies Home Medications ?Medication ?Instructions ?Recorded ?Last Taken ?Type ondansetron HCl 4 mg tablet 4 mg PO Q8H PRN NAUSEA 08/17/21 Unknown History cetirizine 10 mg tablet (Zyrtec) 10 mg PO DAILY allergy symptoms 03/08/23 09/02/23 History multivitamin (Daily Multi-Vitamin 1 tab PO DAILY PER 08/20/23 09/02/23 History tablet) meclizine 25 mg tablet 12.5 mg PO TID PRN dizziness 12/08/23 Unknown History potassium chloride 20 mEq 20 meq PO TIDCM 30 days #90 tabs 12/18/23 Unknown Rx tablet,extended release(part/cryst) acetaminophen 500 mg tablet 1,000 mg PO Q8 PRN fever or pain 08/20/24 Unknown History topiramate 100 mg tablet 100 mg PO BID #60 tabs 10/29/24 Unknown Rx rosuvastatin 10 mg tablet 10 mg PO DAILY PER DR REAGAN #90 tabs 03/12/25 Unknown Rx levothyroxine 88 mcg tablet 88 mcg PO DAILY@0600 #90 tabs 04/20/25 07/07/25 Rx triamterene 37.5 1 cap PO DAILY #90 caps 04/20/25 Unknown Rx mg-hydrochlorothiazide 25 mg capsule lamotrigine 100 mg tablet 100 mg PO BID PER 05/04/25 Unknown History amiloride 5 mg tablet 5 mg PO DAILY MENERIES #90 tabs 05/11/25 Unknown Rx ipratropium bromide 21 mcg (0.03 2 spray intranasal BID-TID PRN 05/12/25 Unknown History %) nasal spray allergy symptoms venlafaxine 75 mg capsule,extended 150 mg (2 x 75 mg) PO DAILY #90 05/12/25 Unknown Rx release 24 hr caps omeprazole 40 mg capsule,delayed 40 mg PO DAILY PER DR #30 caps 05/25/25 07/07/25 Rx release gabapentin 600 mg tablet 600 mg PO BID #60 TABLETS 06/10/25 Unknown Rx celecoxib 200 mg capsule (Celebrex) 200 mg PO QDAY #30 caps 06/22/25 Unknown Rx biotin 10,000 mcg capsule mcg PO 07/06/25 Unknown History Allergy/AdvReac Type Severity Reaction Status Date / Time shellfish derived Allergy Severe vomitting Verified 07/07/25 06:30 citric acid Allergy ulcers Verified 07/07/25 06:31 Penicillins Allergy Hives Verified 07/07/25 06:30 duloxetine (From Cymbalta) AdvReac Intermediate Other Verified 07/07/25 06:30 gluten AdvReac Intermediate stomach Verified 07/07/25 06:30 discomfort Family History Father Alcohol abuse Colon cancer, Onset Age: 69 Diabetes Respiratory disease Melanoma Dementia Sister Alcohol abuse Arthritis Asthma Son Anxiety Mother Arthritis Asthma Heart disease Hypertension Aunt Autoimmune disease lupus Brother Hypertension Heart disease Other Bowel disease Depression High cholesterol Mental disorder Psychiatric care Severe allergic reaction Thyroid disorder Surgical History History of insertion of nerve stimulator Hx of colonoscopy Fusion of lumbar spine History of total right hip arthroplasty S/P insertion of spinal cord stimulator H/O total hip arthroplasty Social History adopted: No household members: none number of children: 1 current occupational status: disabled current occupation: Disabled current occupational exposures/hazards: No pets and animals: Yes history of recent travel: No sexually active: No Smoking Status: Current every day smoker tobacco type: e-cigarettes Electronic Cigarette Use: with nicotine alcohol intake: former year quit: 2015? substance use type: does not use caffeine: Yes eating out: 1-3 times/week during the past year weight has: remained stable frequency: 3-4 times per week duration: 15-30 minutes/day octavia/lutheran: [employer] seatbelt use: always do you feel safe at home: Yes additional social history: ROS Constitutional Constitutional: Denies fatigue, fever(s), poor appetite, weight gain or weight loss Gastrointestinal Gastrointestinal: Denies belching, bloating, change in bowel habits, change in stool character, chewing difficulty, coffee ground emesis, constipation, cramping, diarrhea, dyspepsia, dysphagia, early satiety, excessive flatus, fecal incontinence, heartburn, hematemesis, hematochezia, hemorrhoids, loose stools, melena, nausea, odynophagia, rectal bleeding, tenesmus, vomiting or weight changes Vital Signs Vital Signs Vital Signs: 07/07/25 06:32 07/07/25 06:32 07/07/25 06:32 Temperature 97.5 F L Temperature Source Temporal Pulse Rate 79 Respiratory Rate 16 Respiratory Pattern Normal Blood Pressure 113/83 H Blood Pressure Mean 93 Blood Pressure Source Monitor Blood Pressure Position Semi-Fowlers Blood Pressure Location Right Arm Baseline BP 113/83 Pulse Ox 98 Oxygen Delivery Method Room Air Weight Weight: 219 lb Body Mass Index (BMI) 36.4 Physical Exam Const alert, oriented x3, no apparent distress and healthy appearing General Appearance: cooperative GI normal to inspection, nondistended, normoactive bowel sounds, soft to palpation, non-tender and non-distended Percussion: normal to percussion Rectal Exam: deferred Assessment & Plan Assessment/Plan (1) GERD (gastroesophageal reflux disease): QUALIFIERS: Esophagitis presence: without esophagitis Qualified Code(s): K21.9 - Gastro-esophageal reflux disease without esophagitis PLAN: Assessment and Plan Assessment and Plan (1) GERD (gastroesophageal reflux disease): Status: Acute Qualifiers: Esophagitis presence: without esophagitis Qualified Code(s): K21.9 - Gastro-esophageal reflux disease without esophagitis (2) IBS (irritable bowel syndrome): Status: Acute Plan: Kaylee is a 54-year-old female patient with past medical history of hypothyroidism, hyperlipidemia, osteoarthritis, M?ni?re's disease and migraines here today for evaluation of worsening acid reflux. Patient has a long history of heartburn and has been on omeprazole for many years. Over the past few months she has had increased heartburn. She is having the symptoms almost daily. Patient also with a history of IBS with alternating constipation and diarrhea. Last colonoscopy was within 10 years ago. Recommended EGD for evaluation of her upper GI tract. Pending results we may consider increasing her omeprazole to 40 mg twice a day or other treatments. - EGD -Continue omeprazole -Start fiber supplement - Follow-up after procedure
--- NOTE | 2025-07-07 06:53 | PCM.PRE.AN2 ---
ASA Classification* ASA Classification ASA Classification: 2 (HTN, GERD, anxiety, smoker. Spinal cord stimulator in place for pain. ) Assessment & Plan Anesthesia* Anesthesia Assessment Anesthesia Assessment: Discussed sedation and/or anesthesia options, risks, benefits, and alternatives with patient/parents/legal guardian/POA. Questions invited. The patient/parents/legal guardian/POA seems to understand and agrees to proceed with anesthesia plan. Reviewed the physical assessment, medical history, allergy history and patient home medications list prior to surgery/procedure/anesthetic and documented any changes. Performed airway and anesthesia risk assessments. Patient refuses test. I advised the patient on the affects of anesthesia and potential complications of anesthesia while potentially . The patient verbalized understanding and wished to proceed. Anesthesia Type Anesthesia Type: MAC History Source History Obtained from:: Patient and Chart Anesthesia Focused Assessment* Temperature: 97.5 F Pulse Rate: 79 Blood Pressure: 113/83 Respiratory Rate: 16 Pulse Ox: 98 Oxygen Delivery Method: Room Air Airway Assessment Mouth opens: >3 cm Mallampati Score: III Neck Range of motion (ROM): Full ROM Labs Anesthesia Preop lab: CBC WBC, (4.4-11.0) 9.1 K/mm3 09/30/24, 13:08 RBC, (4.2-5.4) 4.73 M/mm3 09/30/24, 13:08 Hgb, (12.0-15.0) 13.8 g/dL 09/30/24, 13:08 Hct, (37-47) 42.9 % 09/30/24, 13:08 Plt Count, (150-450) 274 K/mm3 09/30/24, 13:08 CHEMISTRY Potassium, (3.5-5.1) 4.0 mmol/L 09/30/24, 13:08 Sodium, (136-145) 136 mmol/L 09/30/24, 13:08 Magnesium, (1.6-2.6) 2.3 mg/dL 04/16/24, 12:51 BUN, (7-18) 18 mg/dL 09/30/24, 13:08 Creatinine, (0.55-1.02) 0.97 mg/dL 09/30/24, 13:08 Glucose, (74-106) 92 mg/dL 09/30/24, 13:08 POC Glucose, (74-106) 102 mg/dL 09/25/23, 06:15 TSH, (0.358-3.740) 2.240 uIU/mL 09/30/24, 13:08 COAG PT, (11.7-14.9) 13.7 SECONDS 09/25/23, 06:30 Urine Test Negative Negative 09/03/23, 05:54 Pre-Assessment Diagnosis/Proposed Procedure Planned Operative Procedure(s): EGD Anesthesia History Anesthesia History - bilingual instructor: Anesthesia History - bilingual instructor Hx Hospitalization No 07/06/25 09:43 Any Problems With Anesthesia No 07/06/25 09:43 Cholinesterase deficiency No 07/06/25 09:43 You/Your Family Experience No 07/06/25 09:43 fever (hyperthermia) with Relationship Recent Exposure to Contagious No 07/07/25 06:32 Disease Does patient have nerve No 07/06/25 09:43 stimulator Patient instructed to have device shut off --Does patient have Pacemaker No 07/07/25 06:32 or ICD? When Was Last Pacemaker Check QUESTION #4 FULL TEXT: You/Your Family Experience fever (hyperthermia) with Anesthesia Last Oral Intake Last Oral intake: Last Oral Intake NPO since 05:00 07/07/25 06:32 Meds taken in AM with sips of Yes 07/07/25 06:32 water? Meds patient instructed to see mar 07/07/25 06:32 take am of surgery PONV PONV - bilingual instructor: PONV - bilingual instructor Female Yes 07/06/25 09:43 HX of Motion Sickness No 07/06/25 09:43 HX of N/V After Surgery No 07/06/25 09:43 Non-Smoker Yes 07/06/25 09:43 Duration of Surgery greater No 07/06/25 09:43 than 60 minutes Number of Risk Factors 2 07/06/25 09:43 PONV Score Moderate Risk 07/06/25 09:43 Height & Weight Height & Weight: Anesthesia: Height & Weight Height 5 ft 5 in 07/07/25 06:32 Weight: 99.337 kg 07/07/25 06:32 Body Mass Index (BMI) 36.4 07/07/25 06:32 Respiratory Assessment Respiratory Assessment - bilingual instructor: Respiratory Tract Infection Hx - bilingual instructor Hx Respiratory Tract Infection No 07/06/25 09:43 STOP Sleep Apnea STOP Sleep Apnea - bilingual instructor: STOP Sleep Apnea - bilingual instructor Hx Hypertension Yes 07/06/25 09:43 Hx Sleep Apnea No 07/06/25 09:43 CPAP BIPAP Do you snore loudly (louder No 07/06/25 09:43 than talking or can be heard Do you often feel tired/ No 07/06/25 09:43 fatigued/ sleepy during daytime? Has anyone observed you stop No 07/06/25 09:43 breathing during sleep? STOP Results Negative 07/06/25 09:43 QUESTION #5 FULL TEXT : Do you snore loudly (louder than talking or can be heard through closed doors)? Tobacco Use History Tobacco Use History - bilingual instructor: Tobacco Use History - bilingual instructor Tobacco Use Smoking Status Current every day smoker 07/06/25 09:43 Hx Tobacco Use Yes 07/06/25 09:43 Years Smoking Packs Smoked per Day Smoking Cessation Date was within the last 15 years Hx Smoking Cessation Date Hx Smoking Cessation No 07/06/25 09:43 Counseling Hematologic Medial History Hematologic Hx - bilingual instructor: Hematologic Medical Hx - [employer] Hx of Blood Transfusion Yes 07/06/25 09:43 Hx of Transfusion in last 3 No 07/06/25 09:43 Months Date of Last Transfusion (if within last 3 months) Ever experience any problems No 07/06/25 09:43 with transfusion(s)? Specify any problems Hx of Preganancy in last 3 No 07/06/25 09:43 Months Nurse Filling Out Transfusion ALYSSA 07/06/25 09:43 & Questions: Date: 07/06/25 07/06/25 09:43 Time: 09:46 07/06/25 09:43 Patient unable to answer at this time (ie. confused, unrespo /Reproduction History /Reproductive History - bilingual instructor: /Reproductive Hx- bilingual instructor Hx Now No 07/06/25 09:43 Gestational Age (in weeks): EDC: Hx Hx Para Hx Section SAB No 07/06/25 09:43 Does the father of the baby or his family experience fever w Father of the baby Malignant Hypertension history comment Active Medications Active Medications: Current Medications Generic Name Dose Route Start Last Admin Trade Name Freq PRN Reason Stop Dose Admin Lactated Ringer's 1,000 mls @ 15 mls/hr 07/07/25 06:30 IV .Q48H LINETTE PFSH Medical History Thyroid disease History of echocardiogram Vertigo Acute maxillary sinusitis, unspecified Loss of hearing Wears glasses Depression Anxiety Anemia Easy bruising Migraine headache Injury of head and neck Menieres disease Dietary restriction History of ulceration Gastric reflux Former smoker Leg cramps History of pain when walking History of edema Pneumonia Pain Hypokalemia Vitamin deficiency Vision problem Ulcer Osteoarthritis Neuropathy IBS (irritable bowel syndrome) Hearing problem Back problem Arthritis Seasonal allergies Home Medications ?Medication ?Instructions ?Recorded ?Last Taken ?Type ondansetron HCl 4 mg tablet 4 mg PO Q8H PRN NAUSEA 08/17/21 Unknown History cetirizine 10 mg tablet (Zyrtec) 10 mg PO DAILY allergy symptoms 03/08/23 09/02/23 History multivitamin (Daily Multi-Vitamin 1 tab PO DAILY PER 08/20/23 09/02/23 History tablet) meclizine 25 mg tablet 12.5 mg PO TID PRN dizziness 12/08/23 Unknown History potassium chloride 20 mEq 20 meq PO TIDCM 30 days #90 tabs 12/18/23 Unknown Rx tablet,extended release(part/cryst) acetaminophen 500 mg tablet 1,000 mg PO Q8 PRN fever or pain 08/20/24 Unknown History topiramate 100 mg tablet 100 mg PO BID #60 tabs 10/29/24 Unknown Rx rosuvastatin 10 mg tablet 10 mg PO DAILY PER DR REAGAN #90 tabs 03/12/25 Unknown Rx levothyroxine 88 mcg tablet 88 mcg PO DAILY@0600 #90 tabs 04/20/25 07/07/25 Rx triamterene 37.5 1 cap PO DAILY #90 caps 04/20/25 Unknown Rx mg-hydrochlorothiazide 25 mg capsule lamotrigine 100 mg tablet 100 mg PO BID PER 05/04/25 Unknown History amiloride 5 mg tablet 5 mg PO DAILY MENERIES #90 tabs 05/11/25 Unknown Rx ipratropium bromide 21 mcg (0.03 2 spray intranasal BID-TID PRN 05/12/25 Unknown History %) nasal spray allergy symptoms venlafaxine 75 mg capsule,extended 150 mg (2 x 75 mg) PO DAILY #90 05/12/25 Unknown Rx release 24 hr caps omeprazole 40 mg capsule,delayed 40 mg PO DAILY PER #30 caps 05/25/25 07/07/25 Rx release gabapentin 600 mg tablet 600 mg PO BID #60 TABLETS 06/10/25 Unknown Rx celecoxib 200 mg capsule (Celebrex) 200 mg PO QDAY #30 caps 06/22/25 Unknown Rx biotin 10,000 mcg capsule mcg PO 07/06/25 Unknown History Allergy/AdvReac Type Severity Reaction Status Date / Time shellfish derived Allergy Severe vomitting Verified 07/07/25 06:30 citric acid Allergy ulcers Verified 07/07/25 06:31 Penicillins Allergy Hives Verified 07/07/25 06:30 duloxetine (From Cymbalta) AdvReac Intermediate Other Verified 07/07/25 06:30 gluten AdvReac Intermediate stomach Verified 07/07/25 06:30 discomfort Family History Father Alcohol abuse Colon cancer, Onset Age: 69 Diabetes Respiratory disease Melanoma Dementia Sister Alcohol abuse Arthritis Asthma Son Anxiety Mother Arthritis Asthma Heart disease Hypertension Aunt Autoimmune disease lupus Brother Hypertension Heart disease Other Bowel disease Depression High cholesterol Mental disorder Psychiatric care Severe allergic reaction Thyroid disorder Surgical History History of insertion of nerve stimulator Hx of colonoscopy Fusion of lumbar spine History of total right hip arthroplasty S/P insertion of spinal cord stimulator H/O total hip arthroplasty Social History adopted: No household members: none number of children: 1 current occupational status: disabled current occupation: Disabled current occupational exposures/hazards: No pets and animals: Yes history of recent travel: No sexually active: No Smoking Status: Current every day smoker tobacco type: e-cigarettes Electronic Cigarette Use: with nicotine alcohol intake: former year quit: 2015? substance use type: does not use caffeine: Yes eating out: 1-3 times/week during the past year weight has: remained stable frequency: 3-4 times per week duration: 15-30 minutes/day octavia/anabaptism: [employer] seatbelt use: always do you feel safe at home: Yes additional social history: Review of Systems (Anesthesia) ROS Narrative System reviewed and no additional complaints, except as documented.
--- NOTE | 2025-07-07 07:00 | EGD_PTH ---
PATIENT: BRUNO PATTERSON LOC: EN U#:[id number] AGE/SX: 54/F ROOM: RE07/07/[address]: Dr. Brennan Limon DO : 1970 BED: DIS: 07/07/2025 SPEC #: [id number] RECD: 07/07/25 07:54 STATUS: KAIA REQ #: [id number] FABIANO: 07/07/25 07:[address]: Brennan Limon DEPT: SURGICAL PATHOLOGY RECD BY: Ricki Fuentes ENTERED: 07/07/25 09:02 SP TYPE: EGD BIOPSY DARWIN DR: Dr. Wandy Valdovinos MD Tissues: A - Esophagus, NOS Procedures: Surgery Specimen Level IV HEADER OPERATION: EGD with biopsy PRE-OP DIAGNOSIS: GERD, irritable bowel syndrome TISSUE SUBMITTED: A- Distal esophagus biopsy MICROSCOPIC DIAGNOSIS A. Esophagus, distal, biopsy: * Benign squamous epithelium * Cardiac type mucosa with mild chronic inflammation, negative for goblet cells MICROSCOPIC DESCRIPTION Slides are reviewed. GROSS DESCRIPTION A. Received in fixative is one container labeled with the patient's name and designated Distal esophagus biopsy. The specimen consists of two irregular fragments of adams tissue that measure 0.4 and 0.6 cm. The specimen is totally submitted in one cassette. OK 07/07/2025 CPT:73613
--- NOTE | 2025-07-07 07:26 | OP.EGD_ITS ---
Patient Name: Kaylee Casanova Procedure Date: 07/07/2025 6:08 AM Date of : 1970 Age: 54 Procedure: Upper GI endoscopy Indications: Epigastric abdominal pain, Abdominal pain in the left upper quadrant, Functional Dyspepsia, Indigestion, Suspected esophageal reflux Providers: Brennan Limon DO Referring MD: Brennan Limon DO Medicines: Monitored Anesthesia Care Patient Profile: This is a 54 year old female. Refer to note in patient chart for documentation of history and physical. Patient has symptoms of acute abdominal distention, acute right upper quadrant abdominal pain, acute left lower quadrant abdominal pain, acute epigastric abdominal pain, acute dyspepsia and acute nausea. Complications: No immediate complications. Procedure: Pre-Anesthesia Assessment: - Prior to the procedure, a History and Physical was performed, and patient medications and allergies were reviewed. The patient is competent. The risks and benefits of the procedure and the sedation options and risks were discussed with the patient. All questions were answered and informed consent was obtained. Patient identification and proposed procedure were verified by the physician in the pre-procedure area. Mental Status Examination: alert and oriented. Airway Examination: normal oropharyngeal airway and neck mobility. Respiratory Examination: clear to auscultation. CV Examination: normal. Prophylactic Antibiotics: The patient does not require prophylactic antibiotics. Prior Anticoagulants: The patient has taken no anticoagulant or antiplatelet agents except for NSAID medication. ASA Grade Assessment: II - A patient with mild systemic disease. After reviewing the risks and benefits, the patient was deemed in satisfactory condition to undergo the procedure. The anesthesia plan was to use monitored anesthesia care (MAC). Immediately prior to administration of medications, the patient was re-assessed for adequacy to receive sedatives. The heart rate, respiratory rate, oxygen saturations, blood pressure, adequacy of pulmonary ventilation, and response to care were monitored throughout the procedure. The physical status of the patient was re-assessed after the procedure. After obtaining informed consent, the endoscope was passed under direct vision. Throughout the procedure, the patient's blood pressure, pulse, and oxygen saturations were monitored continuously. The Endoscope was introduced through the mouth, and advanced to the third part of the duodenum. Small bowel enteroscopy was deemed necessary. The upper GI endoscopy was accomplished without difficulty. The patient tolerated the procedure well. Scope In: 7:13:06 AM Scope Out: 7:15:16 AM Total Procedure Duration Time 0 hours 2 minutes 10 seconds Findings: LA Grade A (one or more mucosal breaks less than 5 mm, not extending between tops of 2 mucosal folds) esophagitis with no bleeding was found 38 to 40 cm from the incisors. Biopsies were taken with a cold forceps for histology. Verification of patient identification for the specimen was done. Estimated blood loss was minimal. Suspect gastroparesis due to absence of peristalsis, patient symptoms and retained gastric contents. A medium amount of food (residue) was found in the entire examined stomach. No gross lesions were noted in the entire examined duodenum. Impression: - LA Grade A reflux esophagitis with no bleeding. Biopsied. - Gastroparesis. - A medium amount of food (residue) in the stomach. - No gross lesions in the entire examined duodenum. Recommendation: - Discharge patient to home. - Gastroparesis diet. - Continue present medications. - Await pathology results. - Repeat upper endoscopy in 3 months to evaluate the response to therapy. - Metoclopramide 5 mg p.o. 3 times daily - Gastric emptying study - Azithromycin 500 mg daily x 7 days Procedure Code(s): --- Professional --- 32089, Small intestinal endoscopy, enteroscopy beyond second portion of duodenum, not including ileum; with biopsy, single or multiple CPT copyright 2021 [employer]. All rights reserved. The codes documented in this report are preliminary and upon typecasting machine operator review may be revised to meet current compliance requirements. Brennan Limon DO 07/07/2025 7:25:36 AM This report has been signed electronically. Number of Addenda: 0 Note Initiated On: 07/07/2025 6:08 AM
--- NOTE | 2025-07-07 07:26 | OP.PROVAT_ITS ---
07/07/2025 Wandy Valdovinos Md Re : Upper GI endoscopy procedure for Kaylee Casanova Dear Aruna This procedure was performed on Monday, July 07, 2025. My impressions and recommendations are as follows: Impressions : - LA Grade A reflux esophagitis with no bleeding. Biopsied. - Gastroparesis. - A medium amount of food (residue) in the stomach. - No gross lesions in the entire examined duodenum. Recommendations : - Discharge patient to home. - Gastroparesis diet. - Continue present medications. - Await pathology results. - Repeat upper endoscopy in 3 months to evaluate the response to therapy. - Metoclopramide 5 mg p.o. 3 times daily - Gastric emptying study - Azithromycin 500 mg daily x 7 days My findings are described in the full procedure note, which is enclosed. If I can be of further assistance, please feel free to contact me at . Sincerely, Brennan Limon, 07/07/2025 7:25:36 AM This report has been signed electronically.
--- NOTE | 2025-07-07 07:27 | PCM.POST.ANE ---
Anesthesia: Postop Eval I Current Vital Signs Temperature: 97.8 F Pulse Rate: 70 Blood Pressure: 97/72 Respiratory Rate: 16 Pulse Ox: 95 Oxygen Delivery Method: Room Air Assessment Airway patent: Yes Spontaneous unlabored respirations: Yes Mental status: Awake nausea: No Vomiting: No Anesthesia Complication: No Fluid Hydration Crystalloid volume administer (ml): 400 Total IV fluid infused: 400 Progress Note Anesthesia document: Postop Eval 1 completed: Yes
--- NOTE | 2025-07-07 13:36 | PCM.POSTANE2 ---
Anesthesia Postop Eval I Sum Postop Eval Completion status Anesthesia document: Postop Eval 1 completed: Yes Anesthesia Postop Eval I Summary Anesthesia Postop Eval I Summary: Anesthesia Postop Eval I: Assessment Summary Airway patent Yes 07/07/25 07:28 [email or web address] Spontaneous unlabored Yes 07/07/25 07:28 [email or web address] respirations Mental status Awake 07/07/25 07:28 [email or web address] nausea No 07/07/25 07:28 [email or web address] Vomiting No 07/07/25 07:28 [email or web address] Anesthesia Postop Eval I: Fluid Summary Crystalloid volume administer 400 07/07/25 07:28 [email or web address] (ml) Colloids volume administered ( ml) Blood Product volume administered (ml) Total IV fluid infused 400 07/07/25 07:28 [email or web address] Anesthesia Postop Eval I: Summary Notes Anesthesia Complication No 07/07/25 07:28 [email or web address] Anesthesia Complication Comment: Post-operative progress note Anesthesia: Postop Eval II Evaluation Mental status: Awake Pain Level: 0 nausea: No Vomiting: No Complications Anesthesia Complication: No
== END 2025-07-07 08:16 | disposition home or self-care (01) ==
LOC: EN 06:08 → AC 06:10
PROVIDERS: PCP Internal Medicine; Referring Provider Internal Medicine Gastroenterology; Visit Provider Internal Medicine Gastroenterology
PROC: 0DJ08ZZ Inspection of Upper Intestinal Tract, Via Natural or Artificial Opening Endoscopic (ICD-10-PCS; CPT 43235; principal; 2025-07-07 06:55)
DX: K21.00 Gastro-esophageal reflux disease with esophagitis, without bleeding (principal); Z79.1 Long term (current) use of non-steroidal anti-inflammatories (NSAID); Z79.899 Other long term (current) drug therapy; K31.84 Gastroparesis; F41.9 Anxiety disorder, unspecified; F32.A Depression, unspecified; M19.90 Unspecified osteoarthritis, unspecified site; Z96.641 Presence of right artificial hip joint; F17.290 Nicotine dependence, other tobacco product, uncomplicated; K58.2 Mixed irritable bowel syndrome
CPT/HCPCS: 44361; 88305; J2405

== ENCOUNTER → 2025-07-17 | Outpatient (CLI) | payer MEDICARE, MEDICAID, SELFPAY | END | disposition home or self-care (01) | LOC: LAB 11:28 | PROVIDERS: PCP Internal Medicine; Referring Provider Student in an Organized Health Care Education/Training Program; Visit Provider Student in an Organized Health Care Education/Training Program | DX: K31.84 Gastroparesis (principal) | CPT/HCPCS: 36415; 83036 ==

== ENCOUNTER → 2025-07-23 | Outpatient (CLI) | payer MEDICARE, MEDICAID, SELFPAY ==
--- NOTE | 2025-07-23 11:09 | NM_ITS ---
PROCEDURE: GASTRIC EMPTYING STUDY 07/23/2025 REASON FOR EXAM: RETAINED FOOD ON ENDOSCOPY COMPARISON: None. TECHNIQUE: Procedure Code: NMGES Modality: NM Procedure: GASTRIC EMPTYING STUDY The patient ingested a semi-solid meal of oatmeal. There was no vomiting postprandially. Anterior and posterior planar images of the upper abdomen were obtained for a total of 60 minutes. Regions of interest were drawn, and a geometric mean was used to calculate a [id number]. RADIOPHARMACEUTICAL: Oral administration of 1.0 mCi technetium 99 M sulfur colloid, within the oatmeal. FINDINGS: During the time of imaging, gastroesophageal reflux was not seen. Linear fit gastric emptying half-time of 34.2 minutes. Gastric emptying at 17.5 minutes of 31%, at 29.5 minutes of 53%, at 47.5 minutes of 72%, and at 59.5 minutes of 74%. NM/Gastric Emptying Study IMPRESSION: Normal semi solid phase gastric emptying. Reading Location: [id number]
== END | disposition home or self-care (01) ==
LOC: NM 11:08
PROVIDERS: PCP Internal Medicine; Referring Provider Internal Medicine Gastroenterology; Visit Provider Internal Medicine Gastroenterology
DX: K21.9 Gastro-esophageal reflux disease without esophagitis (principal); K31.84 Gastroparesis
CPT/HCPCS: 78264; A9541